=== PATIENT | female | born 1965 | race Caucasian/White ===

== ENCOUNTER 2023-12-10 13:57 | Outpatient (OUT) | payer OTHER, SELFPAY ==
--- NOTE | 2023-12-10 | XR_ITS ---
The [address] [address] Patient Name: AISHWARYA DUNN MRN: [id number] date: 1965 Sex: F Assigned Patient Location: Current Patient Location: Accession/Order Number: [id number] Exam Date: 12/10/2023 14:00 Report Date: 12/10/2023 14:44 At the request of: ANA SCHUSTER Procedure: XR foot SESAR min 3V EXAMINATION: XR foot SESAR min 3V HISTORY: BILATERAL FOOT PAIN COMPARISON: No relevant comparison available. FINDINGS: RIGHT FINDINGS: BONES: No acute fracture or dislocation. Moderate hallux valgus. Moderate osteoarthritis most significant in the midfoot and at the first metatarsal-phalangeal joint. Moderate enthesopathic spurring of the calcaneus at the Achilles and plantar insertions SOFT TISSUES: Negative. No visible soft tissue swelling. OTHER: Negative. LEFT FINDINGS: BONES: No acute fracture or dislocation. Moderate hallux valgus. Moderate osteoarthritis first metatarsal-phalangeal joint. Moderate enthesopathic spurring of the calcaneus at the Achilles and plantar insertions SOFT TISSUES: Negative. No visible soft tissue swelling. OTHER: Negative. XR/XR foot SESAR min 3V IMPRESSION: RIGHT CONCLUSION: Moderate hallux valgus and osteoarthritis LEFT CONCLUSION: Moderate hallux valgus and osteoarthritis Electronically authenticated by: CRYSTAL SAM Date: 12/10/2023 14:44
== END 2023-12-10 13:58 | disposition home or self-care (01) ==
LOC: EC 13:57
PROVIDERS: Visit Provider Podiatrist Foot & Ankle Surgery
DX: M79.672 Pain in left foot (principal); M79.671 Pain in right foot; M20.12 Hallux valgus (acquired), left foot; M20.11 Hallux valgus (acquired), right foot
CPT/HCPCS: 73630

== ENCOUNTER 2024-01-10 09:04 | Outpatient (OUT) | payer OTHER, SELFPAY ==
--- NOTE | 2024-01-10 09:08 | ECG_ITS ---
The [facility] Test Date: 2024-01-10 Pat Name: AISHWARYA DUNN Department: Room: - Gender: Female [employer] Metal: : 1965 Requested By: ANA SCHUSTER Order Number: [id number] Reading MD: GLENDY ROE Measurements Intervals [place] Rate: 59 P: 11 TX: 133 QRS: 13 QRSD: 106 T: -3 QT: 440 QTc: 437 Interpretive Statements SINUS BRADYCARDIA No previous ECG available for comparison Electronically Signed On 01-10-2024 18:31:55 EDT by GLENDY ROE
--- OUTSIDE RECORDS SUMMARY | 2024-01-10 09:28 | XMS_ITS | CCD ---
Author Organization [facility] ion Partnership [facility] Care Team Providers Care Editing Computer Publisher Name Role Phone RINE, JEANINE L Unavailable Unavailable KABOUR, AMEER Unavailable Unavailable AHMAD, SHOWKAT Unavailable Unavailable KAMIREDDY, ADIREDDY Unavailable Unavailable Rine, Jeanine L Primary Care Provider [phone] Joselinee, Jeanine L Primary Care Provider POLO DIAZ Referring Unavailable RINE, JEANINE L Primary Care Unavailable RINE, JEANINE L Referring Unavailable RINE, JEANINE L Primary Care Unavailable RAMEY, TYLER Referring Unavailable RINE, JEANINE L Primary Care Unavailable RINE, JEANINE L Primary Care Unavailable RAMEY, TYLER Referring Unavailable POLO DIAZ Attending Unavailable RINE, JEANINE L Attending Unavailable RINE, JEANINE L Attending Unavailable RINE, JEANINE L Referring Unavailable POLO DIAZ Attending Unavailable Allergies Allergy Classification Reported Allergen(s) Allergy Type Date of Onset Reaction(s) Facility Unclassified (1 source) Iodides Propensity to adverse reactions to drug 07-14-2012 [facility] Work Phone: Unclassified (1 source) Shellfish-Derive d Products Propensity to adverse reactions to drug 07-21-2012 [facility] (2 sources) Seafood Propensity to adverse reactions to drug 07-21-2012 [facility] (2 sources) Iodides Propensity to adverse reactions to drug 07-14-2012 [facility] Work Phone: Medications Current Medications Medication Drug Class(es) Dates Sig (Normalized) Sig (Original) ALPRAZolam 0.25 mg oral tablet (3 sources) Benzodiazepine take 1 tablet by mouth twice daily as needed for sleep ALPRAZolam (XANAX) 0.25 MG tablet Take 0.25 mg by mouth 2 times daily as needed for Sleep. 0 Active b complex vitamins capsule (3 sources) take 1 capsule by mouth once daily b complex vitamins capsule Take 1 capsule by mouth daily. 0 Active Calcium Carbonate / Vitamin D (3 sources) take 1 tablet by mouth once daily Calcium Carbonate-Vitamin D (CALCIUM + D PO) Take 1 tablet by mouth daily 0 Active diphenhydrAMINE hydrochloride 50 mg oral capsule (3 sources) Histamine-1 Receptor Antagonist Start: 07-23-2017 take 1 capsule by mouth every six hours as needed diphenhydrAMINE (BENADRYL) 50 MG capsule Take 1 capsule by mouth every 6 hours as needed for Itching 20 capsule 0 07/23/2017 Active DULoxetine 60 mg delayed release oral capsule (3 sources) Serotonin and Norepinephrine Reuptake Inhibitor take 1 capsule by mouth once daily DULoxetine (CYMBALTA) 60 MG extended release capsule Take 60 mg by mouth daily 0 Active levothyroxine sodium 0.088 mg oral tablet (3 sources) l-Thyroxine take 1 tablet by mouth once daily levothyroxine (SYNTHROID) 88 MCG tablet Take 88 mcg by mouth daily 0 Active lisinopril 20 mg oral tablet (3 sources) Angiotensin Converting Enzyme Inhibitor take 1 tablet by mouth once daily lisinopril (PRINIVIL;ZESTRIL) 20 MG tablet Take 20 mg by mouth daily 0 Active LORazepam 1 mg oral tablet (3 sources) Benzodiazepine take 1 tablet by mouth once daily as needed for anxiety LORazepam (ATIVAN) 1 MG tablet Take 1 mg by mouth nightly as needed for Anxiety. 0 Active metFORMIN hydrochloride 500 mg oral tablet (3 sources) Biguanide take 2 tablets by mouth twice daily at mealtime metFORMIN (GLUCOPHAGE) 500 MG tablet Take 500 mg by mouth 2 times daily (with meals) Take two tablets by mouth two times daily 0 Active therapeutic multivitamin-mineral s (THERAGRAN-M) tablet (3 sources) take 1 tablet by mouth once daily therapeutic multivitamin-minera ls (THERAGRAN-M) tablet Take 1 tablet by mouth daily. 0 Active traZODone hydrochloride 150 mg oral tablet (3 sources) Serotonin Reuptake Inhibitor take 1 tablet by mouth once daily traZODone (DESYREL) 150 MG tablet Take 150 mg by mouth nightly 0 Active Problems Active Problems Problem Classification Problem Date Documented Da te Episodic/Chronic Anxiety disorders (3 sources) Panic attack; Translations: [Panic disorder [episodic paroxysmal anxiety]] Onset: 07-20-2017 07-22-2017 Chronic Asthma (1 source) Mild intermittent asthma; Translations: [Mild intermittent asthma, uncomplicated] Chronic Diabetes mellitus without complication (5 sources) Diabetes mellitus; Translations: [Type 2 diabetes mellitus without complications] Onset: 12-19-2022 07-22-2017 Chronic Essential hypertension (5 sources) Hypertensive disorder; Translations: [Essential (primary) hypertension] Onset: 12-19-2022 07-22-2017 Chronic Mood disorders (3 sources) Severe major depression, single episode, without psychotic features; Translations: [Major depressive disorder, single episode, severe without psychotic features] Onset: 07-20-2017 07-22-2017 Chronic Nutritional deficiencies (2 sources) Vitamin D deficiency, unspecified; Translations: [Vitamin D deficiency, unspecified] Onset: 12-19-2022 Chronic Osteoporosis (2 sources) Senile osteoporosis; Translations: [Age-related osteoporosis without current pathological fracture] Onset: 07-15-2023 07-15-2023 Chronic Thyroid disorders (2 sources) Hypothyroidism, unspecified; Translations: [Hypothyroidism, unspecified] Onset: 12-19-2022 Chronic Past or Other Problems Problem Classification Problem Date Documented Date Episodic/Chronic Diabetes mellitus without complication (2 sources) Other abnormal glucose; Translations: [Other abnormal glucose] Onset: 12-19-2022 Episodic Genitourinary symptoms and ill-defined conditions (2 sources) Dysuria; Translations: [Dysuria] Onset: 12-27-2022 Episodic Malaise and fatigue (2 sources) Other fatigue; Translations: [Other fatigue] Onset: 12-19-2022 Episodic Nonspecific chest pain (5 sources) Chest pain, unspecified; Translations: [Chest pain] Onset: 07-20-2017 Resolved: 07-22-2017 07-22-2017 Episodic Other screening for suspected conditions (not mental disorders or infectious disease) (11 sources) Cardiovascular stress test abnormal; Translations: [Abnormal result of other cardiovascular function study] Onset: 07-21-2017 Resolved: 07-22-2017 07-22-2017 Episodic Results Test Name Value Interpretation Reference Range Facility DEXA BONE DENSITY 2 SITESon 07-17-2023 DEXA BONE DENSITY 2 SITES DEXA BONE DENSITY 2 SITES 07/15/2023 12:21 PM EST Indication: Screening. Comparison: Accurate comparison is not possible due to differences in equipment. [employer]. Lumbar spine and bilateral hips. Lumbar spine bone mineral density 1.484 g/sq cm. T score 2.5. Left femoral neck bone mineral density 1.200 g/sq cm. T score 1.2. Left total hip bone mineral density 1.377 g/sq cm. T score 2.9. Right femoral left bone mineral density 1.225 g/sq cm. T score 1.3. Right total hip bone mineral density 1.419 g/sq cm. T score 3.3. IMPRESSION: Some evidence of elevated bone mineral density Interpreted by: Bernardo Squires MD Signed by: Bernardo Squires MD 07/17/23 Final result Normal [facility] DXA Bone [Mass/Area] Bone de nsityon 07-17-2023 Some evidence of elevated bone mineral density [facility] RIS CONSOLIDATED DEXA BONE DENSITY 2 SITES 07/15/2023 12:21 PM EST Indication: Screening. Comparison: Accurate comparison is not possible due to differences in equipment. [employer]. Lumbar spine and bilateral hips. Lumbar spine bone mineral density 1.484 g/sq cm. T score 2.5. Left femoral neck bone mineral density 1.200 g/sq cm. T score 1.2. Left total hip bone mineral density 1.377 g/sq cm. T score 2.9. Right femoral left bone mineral density 1.225 g/sq cm. T score 1.3. Right total hip bone mineral density 1.419 g/sq cm. T score 3.3. [facility] RIS CONSOLIDATED Bernardo Squires MD - 07/17/2023 DEXA BONE DENSITY 2 SITES 07/15/2023 12:21 PM EST Indication: Screening. Comparison: Accurate comparison is not possible due to differences in equipment. [employer]. Lumbar spine and bilateral hips. Lumbar spine bone mineral density 1.484 g/sq cm. T score 2.5. Left femoral neck bone mineral density 1.200 g/sq cm. T score 1.2. Left total hip bone mineral density 1.377 g/sq cm. T score 2.9. Right femoral left bone mineral density 1.225 g/sq cm. T score 1.3. Right total hip bone mineral density 1.419 g/sq cm. T score 3.3. IMPRESSION: Some evidence of elevated bone mineral density [facility] Apparent DXA Bone [Mass/Area] Bone de nsityOrdered By: Bernardo Squires on 07-17-2023 [facility] Apparent Work Phone: DXA Bone [Mass/Area] Bone de nsityon 07-15-2023 Radiology Study observation (narrative) [facility] [employer] BI MAMMOGRAM SCREENING TOMOS YNTHESIS BILATERALon 05-24-2023 BI MAMMOGRAM SCREENING TOMOSYNTHESIS BILATERAL This is a summary report. The complete report is available in the patient's medical record. If you cannot access the medical record, please contact the sending organization for a detailed fax or copy. EXAMINATION: BI MAMMOGRAM SCREENING TOMOSYNTHESIS BILATERAL CLINICAL HISTORY: screening COMPARISON: May 11, 2022, May 05, 2021. RESULT: Digital mammography and 3D tomosynthesis of bilateral breasts was performed. The breasts are almost entirely fatty. Overall appearance is stable. There is no suspicious mass, asymmetry, architectural distortion, or calcification. IMPRESSION: BIRADS 1 - Negative Follow-up: Routine Screening Mamm . Board Certified Radiologists. Accredited by the ACR and FDA. MAMMOGRAPHY IS VERY IMPORTANT TO YOUR HEALTH. THE [place] GUIDELINES RECOMMEND THAT WOMEN 40 YEARS OF AGE AND OLDER SHOULD HAVE A MAMMOGRAM EVERY YEAR. A REMINDER LETTER WILL BE SENT AT THE APPROPRIATE TIME. THIS FACILITY UTILIZES A REMINDER SYSTEM TO ENSURE ALL PATIENTS RECEIVE REMINDER NOTIFICATIONS AT THE APPROPRIATE TIME BASED ON THE RECOMMENDATIONS OF THIS EXAM. THIS INCLUDES REMINDERS FOR ROUTINE SCREENING MAMMOGRAMS, DIAGNOSTIC MAMMOGRAMS IN WHICH THE PATIENT IS ASKED TO RETURN FOR ADDITIONAL VIEWS, OR OTHER BREAST IMAGING INTERVENTIONS WHEN APPROPRIATE. THE PATIENT WILL BE PLACED IN THE APPROPRIATE REMINDER SYSTEM INCLUDING A REMINDER AT THE APPROPRIATE TIME FOR ANY PENDING ADDITIONAL VIEWS. TRANSCRIBED BY: ELECTRONICALLY SIGNED BY: Dudley Dunne MD Normal Not Available Comment on above: Order Comment: [facility] CBC with Diffon 12-27-2022 Abs. Basophil 0.06 k/uL Normal 0.00-0.20 [facility] Comment on above: Performed By: #### C DP #### [facility] [address] [place], [place] [address] Data Keyer: Gerson Barton MD Abs.Imm.Granulocyte 0.08 k/uL Normal 0.00-0.30 [facility] Comment on above: Performed By: #### C DP #### [address] [place], [facility] Data Keyer: Gerson Barton MD Abs.Neutrophil (Seg) 6.19 k/uL Normal 1.50-8.10 [facility] Comment on above: Performed By: #### C DP #### [address] [place] [address] Data Keyer: Gerson Barton MD Basophils/100 WBC (Bld) 1 % Normal 0-2 [facility] Comment on above: Performed By: #### C DP #### [address] [place] [address] Data Keyer: Gerson Barton MD Eosinophils (Bld) [#/Vol] 0.12 10*3/uL Normal 0.00-0.44 [facility] Comment on above: Performed By: #### C DP #### [address] [place], [facility] Data Keyer: Gerson Barton MD Eosinophils/100 WBC (Bld) 1 % Normal 1-4 [facility] Comment on above: Performed By: #### C DP #### [address] [place], [place] [address] Data Keyer: Gerson Barton MD Erythrocyte distribution width (RBC) [Ratio] 14.0 % Normal 11.8-14.4 [facility] Comment on above: Performed By: #### C DP #### [address] [place] [id number] Data Keyer: Gerson Barton MD Hematocrit (Bld) [Volume fraction] 44.1 % Normal 36.3-47.1 [facility] Comment on above: Performed By: #### C DP #### [facility] [address] [place], [place] [id number] Data Keyer: Gerson Barton MD Hemoglobin (Bld) [Mass/Vol] 14.5 g/dL Normal 11.9-15.1 [facility] Comment on above: Performed By: #### C DP #### [facility] [address] [place], [place] [id number] Data Keyer: Gerson Barton MD Immature granulocytes/100 WBC (Bld) 1 % High 0 [facility] Comment on above: Performed By: #### C DP #### [facility] [address] [place], [facility] Data Keyer: Gerson Barton MD Lymphocytes (Bld) [#/Vol] 3.02 10*3/uL Normal 1.10-3.70 [facility] Comment on above: Performed By: #### C DP #### [facility] [address] [place], [facility] Data Keyer: Gerson Barton MD Lymphocytes/100 WBC (Bld) 29 % Normal 24-43 [facility] Comment on above: Performed By: #### C DP #### [facility] [address] [place], [facility] Data Keyer: Gerson Barton MD MCH (RBC) [Entitic mass] 29.2 pg Normal 25.2-33.5 [facility] Comment on above: Performed By: #### C DP #### [facility] [address] [place] [facility] Data Keyer: Gerson Barton MD MCHC (RBC) [Mass/Vol] 32.9 g/dL Normal 28.4-34.8 [facility] Comment on above: Performed By: #### C DP #### [facility] [address] [place] [facility] Data Keyer: Gerson Barton MD MCV (RBC) [Entitic vol] 88.7 fL Normal 82.6-102.9 [facility] Comment on above: Performed By: #### C DP #### [facility] [address] [place], [place] [id number] Data Keyer: Gerson Barton MD Monocytes (Bld) [#/Vol] 0.98 10*3/uL Normal 0.10-1.20 [facility] Comment on above: Performed By: #### C DP #### [facility] [address] [place] [id number] Data Keyer: Gerson Barton MD Monocytes/100 WBC (Bld) 9 % Normal 3-12 [facility] Comment on above: Performed By: #### C DP #### [facility] [address] [place], [place] [address] Data Keyer: Gerson Barton MD Neutrophil (Seg) 59 % Normal 36-65 [facility] Comment on above: Performed By: #### C DP #### [address] [place], [facility] Data Keyer: Gerson Barton MD NRBC Automated 0.0 per [address] [facility] Comment on above: Performed By: #### C DP #### [address] [place], [facility] Data Keyer: Gerson Barton MD Platelet mean volume (Bld) [Entitic vol] 9.3 fL Normal 8.1-13.5 [facility] Comment on above: Performed By: #### C DP #### [facility] [address] [place], [facility] Data Keyer: Gerson Barton MD Platelets (Bld) [#/Vol] 365 10*3/uL Normal 138-453 [facility] Comment on above: Performed By: #### C DP #### [address] [place], [place] [address]83 Data Keyer: Gerson Barton MD RBC (Bld) [#/Vol] 4.97 10*6/uL Normal 3.95-5.11 [facility] Comment on above: Performed By: #### C DP #### [address] [place] [address] Data Keyer: Gerson Barton MD WBC (Bld) [#/Vol] 10.5 10*3/uL Normal 3.5-11.3 [facility] Comment on above: Performed By: #### C DP #### [address] [place] [address] Data Keyer: Gerson Barton MD Hemoglobin A1Con 12-20-2022 Glucose [Mass/Vol] 126 mg/dL Normal [facility] Comment on above: Result Comment: The ADA and AACC recommend providing the estimated average glucose result to permit better patient understanding of their HBA1c result. Performed By: #### C P, CDP, TSHX #### [address] [place] [address] Data Keyer: Gerson Barton MD #### URNMAB, FT4, GLYHGB, VD25, LIPR #### [address] [id number] Data Keyer: Asad Draper MD HbA1c (Bld) [Mass fraction] 6.0 % Normal 4.0-6.0 [facility] Comment on above: Performed By: #### C P, CDP, TSHX #### [address] [place] [address] Data Keyer: Gerson Barton MD #### URNMAB, FT4, GLYHGB, VD25, LIPR #### [address] [address] Data Keyer: Asad Draper MD Lipid Profileon 12-20-2022 Cholesterol [Mass/Vol] 115 mg/dL Normal <200 [facility] Comment on above: Result Comment: Cholesterol Guidelines: <200 Desirable 200-240 Borderline >240 Undesirable Performed By: #### C P, CDP, TSHX #### [facility] [address] [place] [address] [place] [address] Data Keyer: Gerson Barton MD #### URNMAB, FT4, GLYHGB, VD25, LIPR #### [employer] [address] [place], [place] [id number] Data Keyer: Asad Draper MD Cholesterol in HDL [Mass/Vol] 49 mg/dL Normal >40 [facility] Comment on above: Result Comment: HDL Guidelines: <40 Undesirable 40-59 Borderline >59 Desirable Performed By: #### C P, CDP, TSHX #### [address] [place] [address] Data Keyer: Gerson Barton MD #### URNMAB, FT4, GLYHGB, VD25, LIPR #### [facility] [employer] [facility] [place] [address] Data Keyer: Asad Draper MD Cholesterol in LDL [Mass/Vol] 32 mg/dL Normal 0-130 [facility] Comment on above: Result Comment: LDL Guidelines: <100 Desirable 100-129 Near to/above Desirable 130-159 Borderline >159 Undesirable Direct (measured) LDL and calculated LDL are not interchangeable tests. Performed By: #### C P, CDP, TSHX #### [address] [place] [address] Data Keyer: Gerson Barton MD #### URNMAB, FT4, GLYHGB, VD25, LIPR #### [employer] [address] [place] [address] Data Keyer: Asad Draper MD Cholesterol.total/Ch olesterol in HDL [Mass ratio] 2.3 {ratio} Normal <5 [facility] Comment on above: Performed By: #### C P, CDP, TSHX #### [address] [place] [address] Data Keyer: Gerson Barton MD #### URNMAB, FT4, GLYHGB, VD25, LIPR #### [facility] [employer] [facility] [place], [place] [id number] Data Keyer: Asad Draper MD Triglyceride [Mass/Vol] 171 mg/dL High <150 [facility] Comment on above: Result Comment: Triglyceride Guidelines: <150 Desirable 150-199 Borderline 200-499 High >499 Very high Based on AHA Guidelines for fasting triglyceride, March 2012. Performed By: #### C P, CDP, TSHX #### [address] [place] [id number] Data Keyer: Gerson Barton MD #### URNMAB, FT4, GLYHGB, VD25, LIPR #### [place] [address] [place], [place] 3[address] Data Keyer: Asad Draper MD Microalb.,Random Uron 2022 Microalb/Creat Ratio 178 mcg/mg creat High <25 [facility] Comment on above: Performed By: #### C P, CDP, TSHX #### [address] [place] [id number] Data Keyer: Gerson Barton MD #### URNMAB, FT4, GLYHGB, VD25, LIPR #### [place] [address] [place], [place] [address]843[address] Data Keyer: Asad Draper MD Microalbumin conc. 764 mg/L High <21 [facility] Comment on above: Performed By: #### C P, CDP, TSHX #### [address] [place] [id number] Data Keyer: Gerson Barton MD #### URNMAB, FT4, GLYHGB, VD25, LIPR #### [address] [address] Data Keyer: Asad Draper MD Creatinine [Mass/Vol] 428.7 mg/dL High 28.0-217.0 [facility] Comment on above: Performed By: #### C P, CDP, TSHX #### [address] [place], [place] [address] Data Keyer: Gerson Barton MD #### URNMAB, FT4, GLYHGB, VD25, LIPR #### [address] [address] Data Keyer: Asad Draper MD Thyroxine, Freeon 12-202022 Thyroxine, Free 1.5 ng/dL Normal 0.9-1.7 [facility] Comment on above: Performed By: #### C P, CDP, TSHX #### [address] [place] [address] Data Keyer: Gerson Barton MD #### URNMAB, FT4, GLYHGB, VD25, LIPR #### [place] [address] [place], [place] [id number] Data Keyer: Asad Draper MD Vitamin D 25 OHon 12-20-2022 Vitamin D 25 [place] 59.0 ng/mL Normal >29.9 [facility] Comment on above: Result Comment: Reference Range: Vitamin D status Range Deficiency <20 ng/mL Mild Deficiency 20-30 ng/mL Sufficiency 30-100 ng/mL Toxicity >100 ng/mL Performed By: #### C P, CDP, TSHX #### [address] [place] [address] Data Keyer: Gerson Barton MD #### URNMAB, FT4, GLYHGB, VD25, LIPR #### [facility] [address] [place] [address] Data Keyer: Asad Draper MD CBC with Auto Differentialon 12-19-2022 Basophils (Bld) [#/Vol] 0.05 10*3/uL [facility] Basophils/100 WBC (Bld) 0 % 0 - 2 % [facility] Eosinophils (Bld) [#/Vol] 0.07 10*3/uL [facility] Eosinophils/100 WBC (Bld) 1 % 1 - 4 % [facility] Erythrocyte distribution width (RBC) [Ratio] 13.8 % 11.8 - 14.4 % [facility] Hematocrit (Bld) [Volume fraction] 47.2 % High 36.3 - 47.1 % [facility] Hemoglobin (Bld) [Mass/Vol] 15.9 g/dL High 11.9 - 15.1 g/dL [facility] Immature granulocytes (Bld) [#/Vol] 0.09 10*3/uL [facility] Immature granulocytes/100 WBC (Bld) 1 % High 0 [facility] Interpretation and review of laboratory results Abnormal [facility] Lymphocytes/100 WBC (Bld) 16 % Low 24 - 43 % [facility] Lymphocytes/100 WBC (Bld) 1.85 % [facility] MCH (RBC) [Entitic mass] 28.8 pg 25.2 - 33.5 pg [facility] MCHC (RBC) [Mass/Vol] 33.7 g/dL 28.4 - 34.8 g/dL [facility] MCV (RBC) [Entitic vol] 85.5 fL 82.6 - 102.9 fL [facility] Monocytes/100 WBC (Bld) 8 % 3 - 12 % [facility] Monocytes/100 WBC (Bld) 0.89 % [facility] Neutrophils/100 WBC (Bld) 74 % High 36 - 65 % [facility] Nucleated RBC/100 WBC (Bld) [Ratio] 0.0 % 0.0 per 100 WBC [facility] Platelet mean volume (Bld) [Entitic vol] 9.0 fL 8.1 - 13.5 fL [facility] Platelets (Bld) [#/Vol] 335 10*3/uL [facility] RBC (Bld) [#/Vol] 5.52 10*6/uL High 3.95 - 5.1 1 m/uL [facility] Segmented neutrophils/100 WBC (Bld) 8.61 % High [facility] WBC other (Bld) [#/Vol] 11.6 High [facility] CBC with Diffon 12-19-2022 Abs. Basophil 0.05 k/uL Normal 0.00-0.20 [facility] Comment on above: Performed By: #### C P, CDP, TSHX #### [address] [place] [id number] Data Keyer: Gerson Barton MD #### YESY, FT4, GLYHGB, VD25, LIPR #### [place] [id number] Data Keyer: Asad Draper MD Abs.Imm.Granulocyte 0.09 k/uL Normal 0.00-0.30 [facility] Comment on above: Performed By: #### C P, CDP, TSHX #### [address] [place] [address] Data Keyer: Gerson Barton MD #### YESY, FT4, GLYHGB, VD25, LIPR #### [address] [id number] Data Keyer: Asad Draper MD Abs.Neutrophil (Seg) 8.61 k/uL High 1.50-8.10 [facility] Comment on above: Performed By: #### C P, CDP, TSHX #### [facility] [address] [place] [address] [place] [address] Data Keyer: Gerson Barton MD #### URNMAB, FT4, GLYHGB, VD25, LIPR #### [address] [id number] Data Keyer: Asad Draper MD Basophils/100 WBC (Bld) 0 % Normal 0-2 [facility] Comment on above: Performed By: #### C P, CDP, TSHX #### [address] [place] [id number] Data Keyer: Gerson Barton MD #### URNMAB, FT4, GLYHGB, VD25, LIPR #### [place] [id number] Data Keyer: Asad Draper MD Eosinophils (Bld) [#/Vol] 0.07 10*3/uL Normal 0.00-0.44 [facility] Comment on above: Performed By: #### C P, CDP, TSHX #### [address] [place] [id number] Data Keyer: Gerson Barton MD #### URNMAB, FT4, GLYHGB, VD25, LIPR #### [place] [address] Data Keyer: Asad Draper MD Eosinophils/100 WBC (Bld) 1 % Normal 1-4 [facility] Comment on above: Performed By: #### C P, CDP, TSHX #### [address] [place] [id number] Data Keyer: Gerson Barton MD #### URNMAB, FT4, GLYHGB, VD25, LIPR #### [place] [id number] Data Keyer: Asad Draper MD Erythrocyte distribution width (RBC) [Ratio] 13.8 % Normal 11.8-14.4 [facility] Comment on above: Performed By: #### C P, CDP, TSHX #### [address] [place], [place] [id number] Data Keyer: Gerson Barton MD #### URNMAB, FT4, GLYHGB, VD25, LIPR #### [address] [id number] Data Keyer: Asad Draper MD Hematocrit (Bld) [Volume fraction] 47.2 % High 36.3-47.1 [facility] Comment on above: Performed By: #### C P, CDP, TSHX #### [address] [place] [address] Data Keyer: Gerson Barton MD #### URNMAB, FT4, GLYHGB, VD25, LIPR #### [address] [id number] Data Keyer: Asad Draper MD Hemoglobin (Bld) [Mass/Vol] 15.9 g/dL High 11.9-15.1 [facility] Comment on above: Performed By: #### C P, CDP, TSHX #### [address] [place], [place] [id number] Data Keyer: Gerson Barton MD #### URNMAB, FT4, GLYHGB, VD25, LIPR #### [address] [address] Data Keyer: Asad Draper MD Immature granulocytes/100 WBC (Bld) 1 % High 0 [facility] Comment on above: Performed By: #### C P, CDP, TSHX #### [address] [place] [address] Data Keyer: Gerson Barton MD #### URNMAB, FT4, GLYHGB, VD25, LIPR #### [address] [id number] Data Keyer: Asad Draper MD Lymphocytes (Bld) [#/Vol] 1.85 10*3/uL Normal 1.10-3.70 [facility] Comment on above: Performed By: #### C P, CDP, TSHX #### [facility] [address] [place] [address] Data Keyer: Gerson Barton MD #### URNMAB, FT4, GLYHGB, VD25, LIPR #### [address] [id number] Data Keyer: Asad Draper MD Lymphocytes/100 WBC (Bld) 16 % Low 24-43 [facility] Comment on above: Performed By: #### C P, CDP, TSHX #### [address] [place] [address] Data Keyer: Gerson Barton MD #### URNMAB, FT4, GLYHGB, VD25, LIPR #### [address] [address] Data Keyer: Asad Draper MD MCH (RBC) [Entitic mass] 28.8 pg Normal 25.2-33.5 [facility] Comment on above: Performed By: #### C P, CDP, TSHX #### [facility] [address] [place] [address] [place] [place] [id number] Data Keyer: Gerson Barton MD #### URNMAB, FT4, GLYHGB, VD25, LIPR #### [address] [id number] Data Keyer: Asad Draper MD MCHC (RBC) [Mass/Vol] 33.7 g/dL Normal 28.4-34.8 [facility] Comment on above: Performed By: #### C P, CDP, TSHX #### [facility] [address] [place] [address] [place] [address] Data Keyer: Gerson Barton MD #### URNMAB, FT4, GLYHGB, VD25, LIPR #### [address] [place] [address] Data Keyer: Asad Draper MD MCV (RBC) [Entitic vol] 85.5 fL Normal 82.6-102.9 [facility] Comment on above: Performed By: #### C P, CDP, TSHX #### [address] [place], [place] 1390283 Data Keyer: Gerson Barton MD #### URNMAB, FT4, GLYHGB, VD25, LIPR #### [address] [address] Data Keyer: Aasd Draper MD Monocytes (Bld) [#/Vol] 0.89 10*3/uL Normal 0.10-1.20 [facility] Comment on above: Performed By: #### C P, CDP, TSHX #### [address] [place], [place] 2123383 Data Keyer: Gerson Barton MD #### URNMAB, FT4, GLYHGB, VD25, LIPR #### [address] [id number] Data Keyer: Asad Draper MD Monocytes/100 WBC (Bld) 8 % Normal 3-12 [facility] Comment on above: Performed By: #### C P, CDP, TSHX #### [address] [place], [place] 1353583 Data Keyer: Gerson Barton MD #### URNMAB, FT4, GLYHGB, VD25, LIPR #### [address] [id number] Data Keyer: Asad Draper MD Neutrophil (Seg) 74 % High 36-65 [facility] Comment on above: Performed By: #### C P, CDP, TSHX #### [address] [place] [id number] Data Keyer: Gerson Barton MD #### URNMAB, FT4, GLYHGB, VD25, LIPR #### [address] [id number] Data Keyer: Asad Draper MD NRBC Automated 0.0 per [address] [facility] Comment on above: Performed By: #### C P, CDP, TSHX #### [address] [place] [id number] Data Keyer: Gerson Barton MD #### URNMAB, FT4, GLYHGB, VD25, LIPR #### [place] [id number] Data Keyer: Asad Draper MD Platelet mean volume (Bld) [Entitic vol] 9.0 fL Normal 8.1-13.5 [facility] Comment on above: Performed By: #### C P, CDP, TSHX #### [address] [place] 7972683 Data Keyer: Gerson Barton MD #### URNMAB, FT4, GLYHGB, VD25, LIPR #### [address] [id number] Data Keyer: Asad Draper MD Platelets (Bld) [#/Vol] 335 10*3/uL Normal 138-453 [facility] Comment on above: Performed By: #### C P, CDP, TSHX #### [address] [place] [id number] Data Keyer: Gerson Barton MD #### URNMAB, FT4, GLYHGB, VD25, LIPR #### [address] [address] Data Keyer: Asad Draper MD RBC (Bld) [#/Vol] 5.52 10*6/uL High 3.95-5.11 [facility] Comment on above: Performed By: #### C P, CDP, TSHX #### [address] [place], [place] 5642383 Data Keyer: Gerson Barton MD #### URNMAB, FT4, GLYHGB, VD25, LIPR #### [facility] [employer] [facility] [place] [address] Data Keyer: Asad Draper MD WBC (Bld) [#/Vol] 11.6 10*3/uL High 3.5-11.3 [facility] Comment on above: Performed By: #### C P, CDP, TSHX #### [address] [place], [place] 9813283 Data Keyer: Gerson Barton MD #### URNMAB, FT4, GLYHGB, VD25, LIPR #### [address] [address] Data Keyer: Asad Draper MD Comp Metabolic Profon 2022 Albumin [Mass/Vol] 5.1 g/dL Normal 3.5-5.2 [facility] Comment on above: Performed By: #### C P, CDP, TSHX #### [address] [place], [place] 4028383 Data Keyer: Gerson Barton MD #### URNMAB, FT4, GLYHGB, VD25, LIPR #### [place] [address] [place] [address] Data Keyer: Asad Draper MD Albumin/Glob Ratio 1.6 Normal 1.0-2.5 [facility] Comment on above: Performed By: #### C P, CDP, TSHX #### [facility] [address] [place], [place] 0481083 Data Keyer: Gerson Barton MD #### URNMAB, FT4, GLYHGB, VD25, LIPR #### [address] [id number] Data Keyer: Asad Draper MD Alkaline Phos 74 U/L Normal 35-104 [facility] Comment on above: Performed By: #### C P, CDP, TSHX #### [facility] [address] [place], [place] 0467283 Data Keyer: Gerson Barton MD #### URNMAB, FT4, GLYHGB, VD25, LIPR #### [address] [id number] Data Keyer: Asad Draper MD ALT [Catalytic activity/Vol] 44 U/L High 5-33 [facility] Comment on above: Performed By: #### C P, CDP, TSHX #### [address] [place], [place] 6316483 Data Keyer: Gerson Barton MD #### URNMAB, FT4, GLYHGB, VD25, LIPR #### [address] [id number] Data Keyer: Asad Draper MD Anion gap [Moles/Vol] 14 mmol/L Normal 9-17 [facility] Comment on above: Performed By: #### C P, CDP, TSHX #### [facility] [address] [place], [place] 0697183 Data Keyer: Gerson Barton MD #### URNMAB, FT4, GLYHGB, VD25, LIPR #### [address] [place], [place] 1108808 Data Keyer: Asad Draper MD AST [Catalytic activity/Vol] 27 U/L Normal <32 [facility] Comment on above: Performed By: #### C P, CDP, TSHX #### [address] [place], [place] 8351783 Data Keyer: Gerson Barton MD #### URNMAB, FT4, GLYHGB, VD25, LIPR #### [address] [id number] Data Keyer: Asad Draper MD Bilirubin [Mass/Vol] 1.7 mg/dL High 0.3-1.2 [facility] Comment on above: Performed By: #### C P, CDP, TSHX #### [address] [place] [address] Data Keyer: Gerson Barton MD #### URNMAB, FT4, GLYHGB, VD25, LIPR #### [address] [id number] Data Keyer: Asad Draper MD BUN/CRE Ratio 20 Normal 9-20 [facility] Comment on above: Performed By: #### C P, CDP, TSHX #### [address] [place] [address] Data Keyer: Gerson Barton MD #### URNMAB, FT4, GLYHGB, VD25, LIPR #### [address] [id number] Data Keyer: Asad Draper MD Calcium [Mass/Vol] 10.5 mg/dL High 8.6-10.4 [facility] Comment on above: Performed By: #### C P, CDP, TSHX #### [address] [place] [address] Data Keyer: Gerson Barton MD #### URNMAB, FT4, GLYHGB, VD25, LIPR #### [address] [id number] Data Keyer: Asad Draper MD Chloride [Moles/Vol] 94 mmol/L Low 98-107 [facility] Comment on above: Performed By: #### C P, CDP, TSHX #### [facility] [address] [place] [address] [place]. [place], [place] [id number] Data Keyer: Gerson Barton MD #### URNMAB, FT4, GLYHGB, VD25, LIPR #### [address] [place] [address] Data Keyer: Asad Draper MD CO2 [Moles/Vol] 30 mmol/L Normal 20-31 [facility] Comment on above: Performed By: #### C P, CDP, TSHX #### [facility] [address] [place] [address] [place] [address] Data Keyer: Gerson Barton MD #### URNMAB, FT4, GLYHGB, VD25, LIPR #### [address] [address] Data Keyer: Asad Draper MD Creatinine [Mass/Vol] 0.8 mg/dL Normal 0.5-0.9 [facility] Comment on above: Performed By: #### C P, CDP, TSHX #### [facility] [address] [place] [address] Dr. [place], [place] 0042183 Data Keyer: Gerson Barton MD #### URNMAB, FT4, GLYHGB, VD25, LIPR #### [address] [id number] Data Keyer: Asad Draper MD GFR/1.73 sq M.predicted among non-blacks MDRD (S/P/Bld) [Vol rate/Area] mL/min/{1.73_m2} Normal >60 [facility] Comment on above: Result Comment: These results are not intended for use in patients <18 years of age. eGFR results are calculated without a race factor using the 2020 CKD-EPI equation. Careful clinical correlation is recommended, particularly when comparing to results calculated using previous equations. The CKD-EPI equation is less accurate in patients with extremes of muscle mass, extra-renal metabolism of creatine, excessive creatine ingestion, or following therapy that affects renal tubular secretion. Performed By: #### C P, CDP, TSHX #### [address] [place] 7972683 Data Keyer: Gerson Barton MD #### URNMAB, FT4, GLYHGB, VD25, LIPR #### [address] [id number] Data Keyer: Asad Draper MD Glucose [Mass/Vol] 137 mg/dL High 70-99 [facility] Comment on above: Performed By: #### C P, CDP, TSHX #### [address] [place] 7972683 Data Keyer: Gerson Barton MD #### URNMAB, FT4, GLYHGB, VD25, LIPR #### [address] [id number] Data Keyer: Asad Draper MD Potassium [Moles/Vol] 4.3 mmol/L Normal 3.7-5.3 [facility] Comment on above: Performed By: #### C P, CDP, TSHX #### [address] [place] [address] Data Keyer: Gerson Barton MD #### URNMAB, FT4, GLYHGB, VD25, LIPR #### [address] [id number] Data Keyer: Asad Draper MD Protein [Mass/Vol] 8.2 g/dL Normal 6.4-8.3 [facility] Comment on above: Performed By: #### C P, CDP, TSHX #### [address] [place] [address] Data Keyer: Gerson Barton MD #### URNMAB, FT4, GLYHGB, VD25, LIPR #### [address] [place], [place] 7883508 Data Keyer: Asad Draper MD Sodium [Moles/Vol] 138 mmol/L Normal 135-144 [facility] Comment on above: Performed By: #### C P, CDP, TSHX #### [address] [place] [address] Data Keyer: Gerson Barton MD #### URNMAB, FT4, GLYHGB, VD25, LIPR #### [address] [place], [place] 1825908 Data Keyer: Asad Draper MD Urea nitrogen [Mass/Vol] 16 mg/dL Normal 6-20 [facility] Comment on above: Performed By: #### C P, CDP, TSHX #### [address] [place] [address] Data Keyer: Gerson Barton MD #### URNMAB, FT4, GLYHGB, VD25, LIPR #### [address] [place], [place] 9463408 Data Keyer: Asad Draper MD [facility] Metabolic Pane [facility] 12-19-2022 Albumin [Mass/Vol] 5.1 g/dL 3.5 - 5.2 g/dL [facility] Albumin/Globulin [Mass ratio] 1.6 {ratio} 1.0 - 2.5 [facility] ALP [Catalytic activity/Vol] 74 U/L 35 - 104 U/L [facility] ALT [Catalytic activity/Vol] 44 U/L High 5 - 33 U/L [facility] Anion gap [Moles/Vol] 14 mmol/L 9 - 17 mmol/L [facility] AST [Catalytic activity/Vol] 27 U/L NINF - 32 U/L [facility] Bilirubin [Mass/Vol] 1.7 mg/dL High 0.3 - 1 .2 mg/dL [facility] Calcium [Mass/Vol] 10.5 mg/dL High 8.6 - 10. 4 mg/dL [facility] Chloride [Moles/Vol] 94 mmol/L Low 98 - 10 7 mmol/L [facility] CO2 [Moles/Vol] 30 mmol/L 20 - 31 mmol/L [facility] Creatinine [Mass/Vol] 0.8 mg/dL 0.5 - 0.9 mg/dL [facility] GFR/1.73 sq M.predicted MDRD (S/P/Bld) [Vol rate/Area] - PINF [facility] Comment on above: These results are not intended for use in patients <18 years of age. eGFR results are calculated without a race factor using the 2020 CKD-EPI equation. Careful clinical correlation is recommended, particularly when comparing to results calculated using previous equations. The CKD-EPI equation is less accurate in patients with extremes of muscle mass, extra-renal metabolism of creatine, excessive creatine ingestion, or following therapy that affects renal tubular secretion. Glucose [Mass/Vol] 137 mg/dL High 70 - 99 mg/dL [facility] Interpretation and review of laboratory results Abnormal [facility] Potassium [Moles/Vol] 4.3 mmol/L 3.7 - 5.3 mmol/L [facility] Protein [Mass/Vol] 8.2 g/dL 6.4 - 8.3 g/dL [facility] Sodium [Moles/Vol] 138 mmol/L 135 - 144 mmol/L [facility] Urea nitrogen [Mass/Vol] 16 mg/dL 6 - 20 mg/dL [facility] Urea nitrogen/Creatinine [Mass ratio] 20 mg/mg 9 - 20 [facility] Lipid Panelon 12-19-2022 Cholesterol [Mass/Vol] 115 mg/dL NINF - 200 mg/dL [facility] Comment on above: Cholesterol Guidelines: <200 Desirable 200-240 Borderline >240 Undesirable Cholesterol in HDL [Mass/Vol] 49 mg/dL 40 - PINF mg/dL [facility] Comment on above: HDL Guidelines: <40 Undesirable 40-59 Borderline >59 Desirable Cholesterol in LDL [Mass/Vol] 32 mg/dL 0 - 130 mg/dL [facility] Comment on above: LDL Guidelines: <100 Desirable 100-129 Near to/above Desirable 130-159 Borderline >159 Undesirable Direct (measured) LDL and calculated LDL are not interchangeable tests. Cholesterol.total/Ch olesterol in HDL [Mass ratio] 2.3 {ratio} NINF - 5 [facility] Interpretation and review of laboratory results Abnormal [facility] Triglyceride [Mass/Vol] 171 mg/dL [facility] Comment on above: Triglyceride Guidelines: <150 Desirable 150-199 Borderline 200-499 High >499 Very high Based on AHA Guidelines for fasting triglyceride, March 2012. [facility] Microalbumin, Uron 3 Albumin DL <= 20 mg/L (U) [Mass/Vol] 764 mg/L [facility] mg/L [facility] Albumin/Creatinine DL <= 20 mg/L (U) [Ratio] 178 [facility] Creatinine (U) [Mass/Vol] 428.7 mg/dL High 28.0 - 217.0 mg/dL [facility] Interpretation and review of laboratory results Abnormal [facility] T4, Freeon 12-19-2022 Free T4 [Mass/Vol] 1.5 ng/dL 0.9 - 1.7 ng/dL [facility] TSH w/reflex to FT4on 2022 Thyroid Stim. Horm. 6.76 uIU/mL High 0.30-5.00 [facility] Comment on above: Performed By: #### C P, CDP, TSHX #### [facility] [address] [place] [address] Data Keyer: Gerson Barton MD #### URNMAB, FT4, GLYHGB, VD25, LIPR #### [address] [place] [address] Data Keyer: Asad Draper MD TSH with Reflexon 12-19-2022 Interpretation and review of laboratory results Abnormal [facility] TSH Qn 6.76 m[IU]/L High [facility] [employer] Vitamin D 25 Hydroxyon 12-19 25-hydroxyvitamin D3 [Mass/Vol] 59.0 ng/mL 29.9 - PINF ng/mL [facility] [employer] Comment on above: Reference Range: Vitamin D status Range Deficiency <20 ng/mL Mild Deficiency 20-30 ng/mL Sufficiency 30-100 ng/mL Toxicity >100 ng/mL [facility] [employer] XR CHEST (2 VW)Ordered By: Ventura Whitlock on 12-08-2020 No acute cardiopulmonary disease. [employer] Phone: EXAMINATION: TWO XRA Y VIEWS OF THE CHEST 12/06/2020 7:41 pm COMPARISON: July 19, 2017. HISTORY: ORDERING SYSTEM PROVIDED HISTORY: Mild intermittent asthma without complication TECHNOLOGIST PROVIDED HISTORY: ASTHMA FINDINGS: No lines or tubes. Normal cardiomediastinal silhouette. The lungs are clear without focal consolidation or pleural effusion. No suspicious pulmonary nodules. No pulmonary edema. No pneumothorax. No acute osseous abnormality. [employer] Phone: Kalpesh, [facility] Incoming Radiant Results From [employer] - 12/08/2020 8:26 PM EDT EXAMINATION: TWO XRAY VIEWS OF THE CHEST 12/06/2020 7:41 pm COMPARISON: July 19, 2017. HISTORY: ORDERING SYSTEM PROVIDED HISTORY: Mild intermittent asthma without complication TECHNOLOGIST PROVIDED HISTORY: ASTHMA FINDINGS: No lines or tubes. Normal cardiomediastinal silhouette. The lungs are clear without focal consolidation or pleural effusion. No suspicious pulmonary nodules. No pulmonary edema. No pneumothorax. No acute osseous abnormality. IMPRESSION: No acute cardiopulmonary disease. Interse Phone: [employer] Phone: Discharge Summaryon 07-22-19 18 HIM IP Note OR Hydrography Teacher Normal [facility] CBCon 07-21-2017 Erythrocyte distribution width Auto Ratio (RBC) 12.9 % Normal 11.8-14.4 [facility] Comment on above: Performed By: #### T VU LIPR ####[address] [address] Erythrocytes (RBC) 0.0 per 100 WBC Normal 0.[address] [facility] Comment on above: Result Comment: [address] [address] Performed By: #### T VU LIPR ####[address] [address] Erythrocytes (RBC) 4.33 10*6/uL Normal 3.95-5.11 [facility] Comment on above: Performed By: #### David WOMACK LIPR ####[address] [address] Hematocrit (HCT) 38.1 % Normal 36.3-47.1 [facility] Comment on above: Performed By: #### T VU LIPR ####[address] [address] Hemoglobin mass conc (Bld) 12.4 g/dL Normal 11.9-15.1 [facility] Comment on above: Performed By: #### T VU LIPR ####[address] [address] MCH 28.6 pg Normal 25.2-33.5 [facility] Comment on above: Performed By: #### T VU LIPR ####[address] [address] MCHC mass conc (RBC) 32.5 g/dL Normal 28.4-34.8 [facility] Comment on above: Performed By: #### T VU LIPR ####[facility] [address] [place] [address] MCV 88.0 fL Normal 82.6-102.9 [facility] Comment on above: Performed By: ###BECCA DICKSON ####Evelia [address] [place] [address] Platelet mean volume (PMV) 9.7 fL Normal 8.1-13.5 [facility] Comment on above: Performed By: #### BECCA MYLES ####[facility] [address] [address] Platelets 198 10*3/uL Normal 138-453 [facility] Comment on above: Performed By: ###BECCA DICKSON ####[address] [address] WBC (Leukocytes) 4.5 10*3/uL Normal 3.5-11.3 [facility] Comment on above: Performed By: ###BECCA DICKSON ####[facility] [address] [address] Comp Metabolic Pr/rfx MGon 0 - Potassium molar conc 3.5 mmol/L Low 3.7-5.3 [facility] Comment on above: Performed By: ###BECCA DICKSON ####[address] [address] (cont.) Normal [facility] Comment on above: Result Comment: Aver age GFR for 40-49 years old: 99 mL/min/1.73sq mChronic Kidney Disease: <60 mL/min/1.73sq mKidney failure: <15 mL/min/1.73sq meGFR calculated using average adult body mass. Additional eGFR calculator available at:http://[email or web address] [email or web address] [address] Performed By: #### T VU LIPR ####[facility] [address] [place] [address] Alanine aminotransferase (ALT) 15 U/L Normal 5-33 [facility] Comment on above: Performed By: #### T VU LIPR ####[facility] [address] [place] [address] Albumin 3.9 g/dL Normal 3.5-5.2 [facility] Comment on above: Performed By: #### T VU LIPR ####[facility] [address]bzrakg[address] [place] [address] Albumin/Globulin Ratio 2.1 {ratio} Normal 1.0-2.5 [facility] Comment on above: Performed By: #### David WOMACK LIPR ####[facility] [address] [place] [address] Alkaline Phos 34 U/L Low 35-104 [facility] Comment on above: Performed By: #### David WOMACK LIPR ####[facility] [address] [place] [address] Anion gap 12 mmol/L Normal 9-17 [facility] Comment on above: Performed By: #### T VU LIPR ####[facility] [address] [place] [address] Aspartate aminotransferase (AST) 14 U/L Normal <32 [facility] Comment on above: Performed By: #### T VU LIPR ####[facility] [address] [place] [address] Bilirubin Ql (U) 1.02 mg/dL Normal 0.3-1.2 [facility] Comment on above: Performed By: #### T VU LIPR ####[facility] [address]vytrwpp0573 [place] [address] Calcium 9.0 mg/dL Normal 8.6-10.4 [facility] Comment on above: Performed By: #### BECCA MYLES ####[facility] [address] [place] [address] Chloride 99 mmol/L Normal 98-107 [facility] Comment on above: Performed By: #### BECCA MYLES ####[facility] [address] [place] [address] CO2 24 mmol/L Normal 20-31 [facility] Comment on above: Performed By: #### BECCA MYLES ####[facility] [address] [place] [address] Creatinine 0.60 mg/dL Normal 0.50-0.90 [facility] Comment on above: Performed By: #### VIRGEN MYLESR ####[facility] [address] [place] [address] eGFR (non-black) mL/min/{1.73_m2} Normal >60 [facility] Comment on above: Performed By: #### BECCA MYLES ####[facility] [address] [place] [address] Glucose mass conc 99 mg/dL Normal 70-99 [facility] Comment on above: Performed By: #### VIRGEN MYLESR ####[facility] [address] [place] [address] Protein 5.8 g/dL Low 6.4-8.3 [facility] Comment on above: Performed By: #### BECCA MYLES ####[facility] [address] [place] [address] Sodium 135 mmol/L Normal 135-144 [facility] Comment on above: Performed By: #### BECCA MYLES ####[place] [address] [place] [address] Urea nitrogen 21 mg/dL High 6-20 [facility] Comment on above: Performed By: #### BECCA MYLES ####[address] [place] [address] BUN/CRE Ratio NOT REPORTED Normal 9-20 [facility] Comment on above: Performed By: #### BECCA MYLES ####[address] [place] [address] Staging: NOT REPORTED Normal [facility] Comment on above: Performed By: #### BECCA MYLES ####[facility] [address] [place] [address] Magnesiumon 07-21-2017 Magnesium 1.9 mg/dL Normal 1.6-2.6 [facility] Comment on above: Result Comment: [facility] [address] [place] [address] Performed By: #### BECCA MYLES ####[facility] [address] [place] [address] Plan of Careon 07-21-2017 HIM IP Note OR Hydrography Teacher Normal [facility] HIM IP Note OR Hydrography Teacher Normal [facility] HIM IP Note OR Hydrography Teacher Normal [facility] Progress Noteon 07-21-2017 HIM IP Note OR Hydrography Teacher Normal [facility] HIM IP Note OR Hydrography Teacher Normal [facility] CARDIAC STRESS TESTon 2017 CARDIAC STRESS TEST [address] [id number] CARDIAC STRESS TESTPATIENT NAME: AISHWARYA DUNN : 1965MED REC NO: [id number] ROOM: [address] [place] [address] NO: [id number] ADMIT DATE: 07/20/2017PROVIDER: Ang CraigARDIYASSINE TREADMILL STRESS STUDYDATE OF STUDY: 07/20/2017ORDERING PROVIDER: Mari [facility]NOR[facility] C[facility] PROVIDER: Jori RineINDICATION: Chest discomfort.CONSENT: The test was explained and consent was signed.PROTOCOL: Nitish, 10.70 METS, duration of 10:00 minutes.RESTING EKG: Abnormal.RESTING HR: 54 bpm, maximum HR, 155 bpm which is 90% of the age predictedHR. HR response to exercise was normal.RESTING BP: 119/96 mmHg, peak BP, 158/81 mmHg. BP response to exercisewas appropriate.CHEST PAIN: No chest discomfort with exercise nor in recovery.EXERCISE EKG: Abnormal.ISCHEMIC EKG CHANGES: Definitely.IMPRESSION:E lectrocardiographically Positive Cardiolite treadmill stress study.Cardiolite report issued from the department of Nuclear MedicineANG SHELLMID: 07/20/2017 15:47:34 /PGAYTANJob#: [id number] Doc#: UnknownPositive result faxed to the Unit Normal [facility] Consulton 07-20-2017 HIM IP Note OR Hydrography Teacher Normal [facility] History and Physicalon 07-20 HIM IP Note OR Hydrography Teacher Normal [facility] K (Potassium)on 07-20-2017 Potassium molar conc 3.9 mmol/L Normal 3.7-5.3 [facility] Comment on above: Result Comment: [facility] [employer] [facility] [place], [place] [id number] [phone] Performed By: #### BECCA MYLES ####[facility] CampusdscoutCnssssiayxfe[address] [place] [address] Lipid Profileon 07-20-2017 Cholesterol 162 mg/dL Normal <200 [facility] Comment on above: Result Comment: Chol esterol Guidelines: <200 Desirable 200-240 Borderline >240 Undesirable Performed By: #### BECCA MYLES ####[facility] CampusdscoutBhsqwraiakkp[address] [place] [address] Cholesterol to HDL Ratio 3.4 {ratio} Normal <5 [facility] Comment on above: Performed By: #### BECCA MYLES ####[facility] [address] [place] [address] HDL Cholesterol 48 mg/dL Normal >40 [facility] Comment on above: Result Comment: HDL Guidelines: <40 Undesirable 40-59 Borderline >59 Desirable Performed By: #### T BECCA WOMACK ####[address] [address] LDL Cholesterol 84 mg/dL Normal 0-130 [facility] Comment on above: Result Comment: LDL Guidelines: <100 Desirable 100-129 Near to/above Desirable 130-159 Borderline >159 UndesirableDirect (measured) LDL and calculated LDL are not interchangeable tests. Performed By: #### T BECCA WOMACK ####[facility] [address] [place] [address] Triglyceride 151 mg/dL High <150 [facility] Comment on above: Result Comment: Trig lyceride Guidelines: <150 Desirable 150- 199 Borderline 200-499 High >499 Very high Based on AHA Guidelines for fasting triglyceride, March 2012.[employer] [address] [place] [address] Performed By: #### T BECCA WOMACK ####[facility] [address] [place] [address] Cholesterol in VLDL mass conc NOT REPORTED Normal 1-30 [facility] Comment on above: Performed By: #### T BECCA WOMACK ####[facility] [address] [place] [address] Magnesiumon 07-20-2017 Magnesium 1.8 mg/dL Normal 1.6-2.6 [facility] Comment on above: Result Comment: [employer] [address] [place] [address] Performed By: #### T BECCA WOMACK ####[facility] CampusdscoutSjwvyyfrrmks[address] [place] [address] NM MYOCARDIAL SPECT REST EXE RCISE OR RXon 07-20-2017 NM MYOCARDIAL SPECT REST EXERCISE OR RX EXAMINATION:MYOCARDIAL PERFUSION IMAGING07/20/2017TECHNIQ UE:Rest dose: 15.9 mCi Tc-99m sestamibi intravenouslyStress dose: 42.8 mCi Tc-99m sestamibi intravenouslyUnder cardiology supervision, treadmill exercise testing was performed. Peakheart rate of 155 bpm is 90% of the age predicted maximum heart rate.SPECT imaging was acquired following injection of the sestamibi. ECG gatingwas obtained following the stress acquisition.COMPARISON: None Available.HISTORY:ORDER ING SYSTEM PROVIDED HISTORY: Chest PainTECHNOLOGIST PROVIDED HISTORY:Ordering Physician Provided Reason for Exam: chest pain, sweating, HTN, DM,prior cath 2006, some shortness of breathAdditional signs and symptoms: 3 week history of intermittent chesttightness, today got worse now radiating down into her right arm with somenumbness,51-year-ol d female with chest pain, jaw, back, or arm pain, palpitations,numbness, sweating, underlying diabetes and hypertension with a familyhistory of heart disease and sudden deathFINDINGS:The patient achieved a maximum heart rate of 155 beats per minute, 90 % ofthe maximum age predicted heart rate of 171 beats per minute.Perfusion:There is no scintigraphic evidence for a reversible or fixed perfusion defectto suggest reversible ischemia or infarct.Function:The gated SPECT data demonstrates left ventricular size and normal wallmotion.Left ventricular ejection fraction: 64%TID score: 0.89 (Threshold value of 1.39 is used for Lexiscan stress withTc-99m). There is no stress-induced cavitary dilatation to suggestcompensated triple vessel disease.End diastolic volume: 89mLScores are visually adjusted to account for potential artifact.Summed stress score: 0Summed rest score: 0Summed reversibility score: 0IMPRESSION: 1. No definitive scintigraphic evidence for reversible ischemia or infarct.2. Left ventricular ejection fraction of 64%.3. Please see report for EKG portion of the examination which will beperformed separately by physician from cardiology.Risk stratification: Low riskNote: Risk stratification incorporates both clinical history and testresults. Final risk determination is the responsibility of the orderingprovider as history and other test results may increase or decrease the riskstratification reported for this examination.Risk stratification criteria are adapted from Noninvasive RiskStratification criteria from Vergara et. Al,ACC/AATS/AHA/ASE/ASN C/SCAI/SCCT/STS 2017 Appropriate Use Criteria ForCoronary Revascularization in Patients With Stable Ischemic Heart DiseaseALLINA HEALTH FARIBAULT MEDICAL CENTER Volume 69, Issue October 2016High risk (>3% annual or CA)1. Severe resting LV dysfunction (LVEF >35%) not readily explained by noncoronary causes2. Resting perfusion abnormalities greater than 10% of the myocardium inpatients without prior history or evidence of MI3. Stress-induced perfusion abnormalities encumbering greater than or equalto 10% myocardium or stress segmental scores indicating multiple vascularterritories with abnormalities4. Stress-induced LV dilatation (TID ratio greater than 1.19 for exercise andgreater than 1.39 for regadenoson)Intermediat e risk (1% to 3% annual or CA)1. Mild/moderate resting LV dysfunction (LVEF 35% to 49%) not readilyexplained by non coronary causes.2. Resting perfusion abnormalities in 5%-9.9% of the myocardium in patientswithout a history or prior evidence of MI3. Stress-induced perfusion abnormality encumbering 5%-9.9% of the myocardiumor stress segmental scores indicating 1 vascular territory with abnormalitiesbut without LV dilation4. Small wall motion abnormality involving 1-2 segments and only 1 coronarybed.Low Risk (Less than 1% annual or CA)1. Normal or small myocardial perfusion defect at rest or with stressencumbering less than 5% of the myocardium.Interpreted by:JENNI Montañoigned by:Giovanny Lan MD07/20/17inal result Normal [facility] Plan of Careon 07-20-2017 HIM IP Note OR Hydrography Teacher Normal [facility] HIM IP Note OR Hydrography Teacher Normal [facility] Procedureon 07-20-2017 HIM IP Note OR Hydrography Teacher Normal [facility] Progress Noteon 07-20-2017 HIM IP Note OR Hydrography Teacher Normal [facility] HIM IP Note OR Hydrography Teacher Normal [facility] TSH w/reflex to FT4on 2017 Thyroid stimulating hormone (TSH) 0.22 m[IU]/L Low 0.30-5.00 [facility] Comment on above: Result Comment: [facility] [employer] [address] [place] [address] Performed By: #### T SHX, FT4 ####[address] [address] Thyroxine, Freeon 07-20-2017 Thyroxine, Free 1.52 ng/dL Normal 0.93-1.70 [facility] Comment on above: Result Comment: [facility] [employer] [address] [place] [address] Performed By: #### T SHX, FT4 ####[address] [address] Troponinon 07-20-2017 Troponin I.cardiac mass conc Normal [facility] Comment on above: Result Comment: Refe rence Range: <0.03 Within reference range. 0.03-0.09 Possible myocardial damage.Repeat at appropriate intervals to rule out chronic elevation. >= 0.10 Indicative of myocardial damage.Patients with high levels of Biotin oral intake (i.e >5mg/day) may have falsely decreased Troponin T levels. Samples collected within 8 hours of biotin intake may require additional information for diagnosis.[facility] [employer] [address] [place] [address] Performed By: #### BECCA MYLES ####[address] [address] Troponin T.cardiac mass conc ug/L Normal <0.03 [facility] Comment on above: Result Comment: Trop onin T results cannot be compared to Troponin-I results. Performed By: #### BECCA MYLES ####[address] [address] Encounters Encounter Date Encounter Type Care Provider Facility Start: 12-18-2023 End: 12-18-2023 ambulatory POLO DIAZ Not Available Start: 11-19-2023 End: 11-19-2023 ambulatory JEANINE WHITLOCK Not Available Start: 10-11-2023 End: 10-11-2023 ambulatory POLO DIAZ Not Available Start: 07-15-2023 End: 07-18-2023 [facility] Start: 07-15-2023 End: 07-17-2023 Subsequent hospital visit by physician román [facility] Dexa Scan Comment on above: Age-related osteopor osis without current pathological fracture Start: 05-24-2023 End: 05-24-2023 ambulatory JEANINE WHITLOCK Not Available Start: 05-10-2023 End: 05-11-2023 [facility] Start: 12-27-2022 End: 12-28-2022 ambulatory [facility] Start: 12-19-2022 End: 12-20-2022 ambulatory POLO DIAZ [facility] Start: 12-19-2022 End: 12-19-2022 Subsequent hospital visit by physician Jeanine Whitlock Work Phone: [facility] Start: 12-06-2020 End: 12-08-2020 Subsequent hospital visit by physician Maddie Sewell Dr [facility] Radiology Comment on above: Mild intermittent as thma without complication Start: 07-20-2017 End: 07-22-2017 Evaluation and management of inpatient JEANINE WHITLOCK [facility] Procedures Date Procedure Procedure Detail Performing Clinician Start: 07-15-2023 Dxa bone density thomas dy 1/> sites axial skel Tyler Ramey MD Work Phone: Start: 12-19-2022 Comprehensive metabo lic panel Polo Escobedo MATERIALS DIRECTOR - SAM[employer] Work Phone: Start: 12-19-2022 Lipid panel Polo ocampo MATERIALS DIRECTOR - [employer] Work Phone: Start: 12-19-2022 Urine albumin quantitative Polo Escobedo MATERIALS DIRECTOR - [employer] Work Phone: Start: 12-06-2020 Radiologic exam ches t 2 views Jeanine Whitlock Work Phone: Start: 01-23-2018 Colonoscopy Jeanine Rine Work Phone: Start: 07-22-2017 SENIOR BACKUP ADMINISTRATOR REPORT JEANINE R INE Start: 07-22-2017 DISCHARGE PATIENT JEANINE RINE Start: 07-22-2017 INITIATE OXYGEN THER APY PROTOCOL JEANINE RINE Start: 07-22-2017 BEDREST JEANINE RINE Start: 07-22-2017 DIET CARDIAC JEANINE RINE Start: 07-22-2017 FULL CODE JEANINE RINE Start: 07-22-2017 NURSING COMMUNICATION G ERRI RINE Start: 07-22-2017 PUNCTURE SITE CARE GERR I RINE Start: 07-22-2017 TELEMETRY MONITORING GE RRI RINE Start: 07-22-2017 VITAL SIGNS JEANINE RINE Start: 07-22-2017 TRANSFER PATIENT JEANINE RINE Start: 07-22-2017 DIAGNOSTIC CARDIAC C ATH LAB PROCEDURE JEANINE RINE Start: 07-22-2017 INITIATE OXYGEN THER APY PROTOCOL JEANINE RINE Start: 07-22-2017 INTAKE AND OUTPUT JEANINE RINE Start: 07-21-2017 DIAGNOSTIC CARDIAC C ATH LAB PROCEDURE JEANINE RINE Start: 07-21-2017 TELEMETRY MONITORING GE RRI RINE Start: 07-21-2017 INITIATE OXYGEN THER APY PROTOCOL JEANINE RINE Start: 07-21-2017 CBC JEANINE RINE Start: 07-21-2017 COMPREHENSIVE METABO LIC PANEL W/ REFLEX TO MG FOR LOW K JEANINE RINE Start: 07-21-2017 MAGNESIUM JEANINE RINE Start: 07-21-2017 DAILY WEIGHTS JEANINE RIN E Start: 07-21-2017 INTAKE AND OUTPUT JEANINE RINE Start: 07-20-2017 MAGNESIUM JEANINE RINE Start: 07-20-2017 POTASSIUM JEANINE RINE Start: 07-20-2017 STRESS TEST REPORT GERR I RINE Start: 07-20-2017 Myocardial spect mul tiple studies JEANINE RINE Start: 07-20-2017 Lipid panel JEANINE RINE Start: 07-20-2017 T4, FREE JEANINE RINE Start: 07-20-2017 TROPONIN JEANINE RINE Start: 07-20-2017 TSH WITH REFLEX JEANINE R INE Start: 07-20-2017 INITIATE OXYGEN THER APY PROTOCOL JEANINE RINE Start: 07-20-2017 (GXT) STRESS TEST EX ERCISE W OUT MYOVIEW JEANINE RINE Start: 07-20-2017 TELEMETRY MONITORING GE RRI RINE Start: 07-20-2017 VITAL SIGNS JEANINE RINE Start: 07-20-2017 INITIATE OXYGEN THER APY PROTOCOL JEANINE CHINYERE Start: 07-20-2017 INTAKE AND OUTPUT JEANINE JOSELINEE Start: 07-20-2017 NOTIFY PHYSICIAN (SPECIFY) JEANINE CHINYERE Start: 07-20-2017 PULSE OXIMETRY SPOT CHECK JEANINE CHINYERE Start: 07-20-2017 TELEMETRY MONITORING GE RRI RINE Start: 07-20-2017 IP CONSULT TO CARDIOLOGY JEANINE CHINYERE Start: 07-20-2017 PLACE INTERMITTENT PNEUMATIC COMPRESSION DEVICE JEANINE CHINYERE Start: 07-20-2017 PATIENT STATUS (DIRECT) JEANINE WHITLOCK Plan of Treatment Date Care Activity Detail Author Start: 01-24-2028 [facility] Start: 02-13-2027 DTaP/Tdap/Td vaccine (3 - Td or Tdap) DTaP/Tdap/Td vaccine (3 - Td or Tdap) [facility] Start: 05-24-2025 Screening for malign ant neoplasm of breast Breast [facility] Start: 12-20-2023 GFR test (Diabetes, CKD 3-4, OR last GFR 15-59) GFR test (Diabetes, CKD 3-4, OR last GFR 15-59) [facility] Start: 12-20-2023 Hemoglobin A1c measurement A1C test (Diabetic or Prediabetic) [facility] Start: 12-20-2023 Lipid panel Lipids [facility] [employer] Start: 12-20-2023 Urine screening for protein Diabetic Alb to Cr ratio (uACR) test [facility] Start: 01-01-2023 Influenza vaccination Flu vaccine (# 1) [facility] Start: 02-01-2021 Influenza vaccination Flu vaccine (# 1) [employer] Phone: Start: 12-02-2020 COVID-19 Vaccine (3 - Booster for Moderna series) COVID-19 Vaccine (3 - Booster for Moderna series) [facility] Start: 01-18-2020 Screening for malign ant neoplasm of breast Breast cancer screen [facility] Start: 07-23-2018 Creatinine measurement Creatinine [facility] [employer] Phone: Start: 07-23-2018 GFR test (Diabetes, CKD 3-4, OR last GFR 15-59) GFR test (Diabetes, CKD 3-4, OR last GFR 15-59) [facility] Start: 07-23-2018 Potassium monitoring Potassium monit brockng [employer] Phone: Start: 07-20-2018 Lipid panel [facility] [employer] [employer] Start: 07-01-2018 Pneumococcal 0-64 ye ars Vaccine (2 - PPSV23 if available, else PCV20) Pneumococcal 0-64 years Vaccine (2 - PPSV23 if available, else PCV20) [facility] Start: 07-01-2018 Pneumococcal 0-64 ye ars Vaccine (2 - PPSV23 or PCV20) Pneumococcal 0-64 years Vaccine (2 - PPSV23 or PCV20) [facility] Start: 2017 Shingles Vaccine (1 of 2) Shingles V accine (1 of 2) [facility] Start: 2012 Screening for malign ant neoplasm of colon [facility] Start: 06-15-2012 Hemoglobin A1c measurement A1C test (Diabetic or Prediabetic) [facility] Start: 1997 Screening for malign ant neoplasm of cervix [facility] Start: 1988 Screening for malign ant neoplasm of cervix [facility] Start: 1986 Hepatitis B vaccine (1 of 3 - Risk 3-dose series) Hepatitis B vaccine (1 of 3 - Risk 3-dose series) [facility] Start: 1985 Diabetic microalbumi gabo test Diabetic microalbuminuria test [employer] Phone: Start: 1985 Glaucoma screening Diabetic retinal exam [facility] Start: 1985 Hepatitis C screening Hepatitis C sc reen [facility] [employer] Start: 1985 Urine screening for protein Diabetic Alb to Cr ratio (uACR) test [facility] Start: 1982 HIV screening HIV screen [facility] [employer] Start: 1979 Depression Monitoring Depression Mon itoring [employer] Start: 1977 Diabetic foot examination Diabetic f oot exam [facility] Start: 1977 Diabetic retinal exam Diabetic retin al exam [employer] Phone: Start: 1973 Pneumococcal 0-64 ye ars Vaccine (1 of 2 - PPSV23) Pneumococcal 0-64 years Vaccine (1 of 2 - PPSV23) [employer] Phone: Start: 01-23-1968 COVID-19 Vaccine (#1) COVID-19 Vacci ne (#1) [employer] Start: 1967 Hepatitis B vaccine (1 of 3 - 3-dose series) Hepatitis B vaccine (1 of 3 - 3-dose series) [employer] Start: 1967 Hepatitis C screening Hepatitis C sc reen [employer] Phone: End: 12-19-2022 Hemoglobin A1c/Hemoglobin.total in Blood [employer] Phone: Comment on above: Once for 1 Occurrenc es starting 12/19/2022 until 12/19/2022 Payers Date Payer Category Payer Private Health Insurance [id number] 2019 Unknown [id number] 2014 Unknown [id number] 1965 Unknown [id number] 2.16.8 [id number] 1965 Unknown [id number] 2.16.8 [id number] 1967 Unknown [id number] 2.16.8 [id number] 1967 Unknown [id number] 2.16.8 [id number] 1967 Unknown [id number] 2.16.84 [id number] 1967 Unknown [id number] 2.16.84 [id number] 1967 Unknown [id number] 2.16.84 [id number] 1967 Unknown [id number] 1967 Unknown [id number] Social History Date Type Detail Facility Start: 07-19-2017 End: 01-23-2018 Tobacco smoking status NHIS Never smoker [facility] 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 Start: 01-25-2019 [facility] use [facility] Evaluation note Note Date & Type Note Facility Evaluation note Diagnosis Mild intermittent asthma without complication Unspecified asthma documented in this encounter [employer] Phone: Evaluation note Note Date & Type Note Facility Evaluation note Diagnosis Age-related osteoporosis without current pathological fracture Senile osteoporosis documented in this encounter [facility] 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 ACP-Advance Directive ACP-Power of Genetic Technologist Latest Code Status on File Code Status Date Activated Date Inactivated Comments Full Code 07/22/2017 1:14 PM 07/22/2017 9:48 PM Full Code 07/20/2017 6:15 AM 07/22/2017 1:14 PM Latest Code Status on File Code Status Date Activated Date Inactivated Comments Full Code 07/22/2017 1:14 PM 07/22/2017 9:48 PM Code Status History Code Status Date Activated Date Inactivated Comments Full Code 07/20/2017 6:15 AM 07/22/2017 1:14 PM Latest Code Status on File Code Status Date Activated Date Inactivated Comments Full Code 07/22/2017 1:14 PM 07/22/2017 9:48 PM Code Status History Code Status Date Activated Date Inactivated Comments Full Code 07/20/2017 6:15 AM 07/22/2017 1:14 PM Reason for Referral Specialty Diagnoses / Procedures Referred By Contac t Referred To Contact Radiology Diagnoses Age-related osteoporosis without current pathological fracture Procedures DEXA BONE DENSITY 2 SITES DEXA BONE DENSITY AXIAL SKELETON Tyler Ramey MD [address] [place] [address] Referral ID Status Reason Start Date Expiration Date V isits Requested Visits Authorized [id number] Pending Review 05/24/2023 05/23/2024 1 1 Additional Source Comments INFORMATION SOURCE (unrecogn ized section and content) DATE CREATED AUTHOR 11/22/2017 [facility] DATE CREATED AUTHOR AUTHOR'S ORGANIZ ATION 05/15/2023 [facility] DATE CREATED AUTHOR AUTHOR'S ORGANIZ ATION 07/18/2023 [facility] DATE CREATED AUTHOR AUTHOR'S ORGANIZ ATION 12/22/2023 [facility] dical Specialists [employer] Care Teams (unrecognized sec tion and content) Editing Computer Publisher Relationship Specialty Start Date End Date Jeanine Whitlock Liban [address] [place], [place] [id number] PCP - General 04/16/16 Editing Computer Publisher Relationship Specialty Start Date End Date Jeanine Whitlock [address] [place] [address] PCP - General 04/16/16 Reason for Visit (unrecogniz ed section and content) Specialty Diagnoses / Procedures Referred By Contac t Referred To Contact Radiology Diagnoses Age-related osteoporosis without current pathological fracture Procedures DEXA BONE DENSITY 2 SITES DEXA BONE DENSITY AXIAL SKELETON Tyler Ramey MD [address] [place] [address] Referral ID Status Reason Start Date Expiration Date V isits Requested Visits Authorized [id number] Pending Review 05/24/2023 05/23/2024 1 1 FOR RECORDS PERTAINING TO PATIENTS WHO ARE OR HAVE BEEN ENROLLED IN A CHEMICAL DEPENDENCY/SUBSTANCEABUSE PROGRAM, SOME INFORMATION MAY BE OMITTED. This clinical summary was aggregated from multiple sources. Caution should be exercised in using it in the provision of clinical care. This summary normalizes information from multiple sources, and as a consequence, information in this document may materially change the coding, format and clinical context of patient data. In addition, data may be omitted in some cases. CLINICAL DECISIONS SHOULD BE BASED ON THE PRIMARY CLINICAL RECORDS. [employer] [facility]. provides no warranty or guarantee of the accuracy or completeness of information in this document.
--- NOTE | 2024-01-10 10:02 | PM.PRESUREVA ---
History of Present Illness History of Present Illness Chief complaint: hallux valgus, hallux rigidus left foot Narrative: Patient presents for preadmission testing. The patient reports a long history of bilateral foot pain and bunions, left greater than right. She states the pain is worse with certain footwear and with spending long periods of time on her feet. She has tried [id number] medications, rest, and different footwear with no relief. She denies any specific trauma or injury, and denies numbness, tingling, weakness, or any other complaints. Review of Systems ROS Narrative REVIEW OF SYSTEMS: Negative except as stated in HPI, ten or more systems reviewed. Constitutional: No fever, chills, weakness ENT: No sore throat or epistaxis Cardiovascular: No chest pain, palpitations, or activity intolerance Respiratory: No shortness of breath, cough, or wheezing Gastrointestinal: No abdominal pain, constipation, diarrhea, or vomiting Genitourinary: No dysuria or hematuria Neurological: No numbness, tingling, weakness, or headache Psychiatric: No mood changes PFSH PFS Medical History (Updated 01/10/24 @ 09:39 by Alicia Rico NP) Arthritis ?M19.90 - Unspecified osteoarthritis, unspecified site (ICD-10) PTSD (post-traumatic stress disorder) ?F43.10 - Post-traumatic stress disorder, unspecified (ICD-10) Depression ?F32.A - Depression, unspecified (ICD-10) Panic attacks ?F41.0 - Panic disorder [episodic paroxysmal anxiety] (ICD-10) Anxiety ?F41.9 - Anxiety disorder, unspecified (ICD-10) COVID-19 ?U07.1 - COVID-19 (ICD-10) Migraine ?G43.909 - Migraine, unspecified, not intractable, without status migrainosus (ICD-10) Extremity edema ?R60.0 - Localized edema (ICD-10) Menopause ?Z78.0 - Asymptomatic menopausal state (ICD-10) Neuropathy, cervical (radicular) ?M54.12 - Radiculopathy, cervical region (ICD-10) Hypothyroid ?E03.9 - Hypothyroidism, unspecified (ICD-10) Hypertension ?I10 - Essential (primary) hypertension (ICD-10) Asthma ?J45.909 - Unspecified asthma, uncomplicated (ICD-10) Diabetes ?E11.9 - Type 2 diabetes mellitus without complications (ICD-10) Foot pain ?M79.673 - Pain in unspecified foot (ICD-10) Hallux rigidus ?M20.20 - Hallux rigidus, unspecified foot (ICD-10) Hallux valgus ?M20.10 - Hallux valgus (acquired), unspecified foot (ICD-10) Surgical History (Updated 01/10/24 @ 09:39 by Alicia Rico NP) History of colonoscopy ?Z98.890 - Other specified postprocedural states (ICD-10) History of cardiac catheterization ?Z98.890 - Other specified postprocedural states (ICD-10) H/O cervical spine surgery ?Z98.890 - Other specified postprocedural states (ICD-10) History of cardiac catheterization ?Z98.890 - Other specified postprocedural states (ICD-10) H/O section ?Z98.891 - History of uterine scar from previous surgery (ICD-10) Hx of tonsillectomy ?Z90.89 - Acquired absence of other organs (ICD-10) Family History (Updated 01/10/24 @ 09:39 by Alicia Rico NP) Other Family history of diabetes mellitus Family history of hypertension Family history of myocardial infarction Family history of stroke Social History (Updated 01/10/24 @ 09:30 by Alicia Rico NP) Within the past year, how often did you have a drink containing alcohol: monthly or less Smoking status: Never smoker Non-prescribed substance use: denies use 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 Highest level of school completed/degree received: Master's degree Meds Home Medications and Allergies Home Medications ?Medication ?Instructions ?Recorded ?Confirmed ?Type alprazolam 0.25 mg tablet 0.25 mg PO TID PRN anxiety 01/10/24 01/10/24 History amlodipine 5 mg tablet 5 mg PO DAILY 01/10/24 01/10/24 History aripiprazole 5 mg tablet 5 mg PO DAILY 01/10/24 01/10/24 History ascorbic acid (vitamin C) 1,000 mg 1 g PO DAILY 01/10/24 01/10/24 History capsule aspirin 81 mg tablet,delayed 81 mg PO DAILY 01/10/24 01/10/24 History release (Adult Aspirin Regimen) atorvastatin 10 mg tablet 0.5 mg PO DAILY 01/10/24 01/10/24 History bisoprolol fumarate 10 mg tablet 10 mg PO DAILY 01/10/24 01/10/24 History calcium carbonate 500 mg PO DAILY 01/10/24 01/10/24 History chlorthalidone 50 mg tablet 50 mg PO DAILY 01/10/24 01/10/24 History duloxetine 60 mg capsule,delayed 120 mg PO DAILY 01/10/24 01/10/24 History release empagliflozin 10 mg tablet 10 mg PO DAILY 01/10/24 01/10/24 History (Jardiance) losartan 100 mg tablet 100 mg PO DAILY 01/10/24 01/10/24 History meloxicam 15 mg tablet 15 mg PO DAILY 01/10/24 01/10/24 History metformin 500 mg tablet,extended 1,000 mg PO BID 01/10/24 01/10/24 History release 24 hr montelukast 10 mg tablet 10 mg PO DAILY 01/10/24 01/10/24 History multivitamin (Daily Multi-Vitamin 1 tab PO DAILY 01/10/24 01/10/24 History tablet) trazodone 150 mg tablet 75 mg PO QPM 01/10/24 01/10/24 History vitamin B complex (Complex B-100 1 tab PO DAILY 01/10/24 01/10/24 History tablet,extended release) zinc 50 mg tablet 50 mg PO DAILY 01/10/24 01/10/24 History Allergies Allergy/AdvReac Type Severity Reaction Status Date / Time Iodinated Contrast Media Allergy Rash Verified 01/10/24 09:29 lisinopril Allergy Cough Verified 01/10/24 09:29 shellfish derived Allergy Rash Verified 01/10/24 09:29 Exam Narrative Exam Narrative: Constitutional: Awake, alert, comfortable, well-appearing, nontoxic, interactive, vital signs as charted Head: Normocephalic, atraumatic Neck: Supple, normal appearance, normal range of motion, no meningeal signs, no lymphadenopathy Respiratory: No respiratory distress, breath sounds clear Cardiovascular: Regular rate and rhythm, strong and regular heart tones Musculoskeletal: Obvious hallux valgus deformity left foot with tenderness over the first MTP, good capillary refill, sensation intact Skin: No rashes or induration, no lesions, only visible skin inspected Neuro: No neurological deficits, normal sensation Psychiatric: Oriented ?3, normal affect Assessment and Plan Assessment and Plan (1) Hallux valgus: (2) Hallux rigidus: (3) Foot pain: Plan Left first MPJ fusion with bone graft as needed scheduled with Dr. Sanon January 16, 2024.
[2024-01-10 11:37] LABS: Anion Gap 12.5; BUN Creatinine Ratio 27.7; Calcium 9.5 mg/dL (8.5-10.1); Chloride 101 mmol/L (98-107); Estimated GFR (African America >60 (>=60); Estimated GFR (Non-African Ame >60 (>=60); Glucose 165 mg/dL (74-106); Potassium 3.5 mmol/L (3.5-5.1); Sodium 141 mmol/L (136-145)
== END 2024-01-10 09:05 | disposition home or self-care (01) ==
LOC: PST 09:06
PROVIDERS: Visit Provider Podiatrist Foot & Ankle Surgery
DX: Z01.810 Encounter for preprocedural cardiovascular examination (principal); Z01.812 Encounter for preprocedural laboratory examination; Z01.818 Encounter for other preprocedural examination; M20.12 Hallux valgus (acquired), left foot; M20.22 Hallux rigidus, left foot
CPT/HCPCS: 80048; 93005; G0463

== ENCOUNTER 2024-01-16 15:00 | Observation (INO) | payer OTHER, SELFPAY ==
[2024-01-10 09:51] VITALS: BP 128/82; PULSE 63; TEMP 36.3; O2SAT 95; BMI 38.9
[2024-01-16] VITALS (27 sets, daily range): BP systolic 73–119; BP diastolic 41–68; PULSE 66–87; TEMP 36.3–36.8; O2SAT 84–99; BMI 24.6; BMI 38.5
--- NOTE | 2024-01-16 | FL_ITS ---
[address] [address] Patient Name: AISHWARYA DUNN MRN: [id number] date: 1965 Sex: F Assigned Patient Location: SURGOUT Current Patient Location: [place] Accession/Order Number: [id number] Exam Date: 01/16/2024 10:54 Report Date: 01/17/2024 11:56 At the request of: ANA SCHUSTER Procedure: FL fluoroscopy <1hr NON-READ EXAM: FL fluoroscopy <1hr NON-READ HISTORY: TECHNIQUE: FINDINGS: Please see Operative Report. Electronically authenticated by: RADIOLOGIST NO Date: 01/17/2024 11:56
--- OUTSIDE RECORDS SUMMARY | 2024-01-16 07:21 | XMS_ITS | CCD ---
Author Organization [facility] ion Partnership [facility] Care Team Providers Care Superintendent Compressor Stations Name Role Phone RINE, JEANINE L Unavailable Unavailable KABOUR, AMEER Unavailable Unavailable AHMAD, SHOWKAT Unavailable Unavailable KAMIREDDY, ADIREDDY Unavailable Unavailable Rine, Jeanine L Primary Care Provider [phone] Joselinee, Jeanine L Primary Care Provider POLO DIAZ Referring Unavailable RINE, JEANINE L Primary Care Unavailable RINE, JEANINE L Referring Unavailable RINE, JEANINE L Primary Care Unavailable RAMEY, TYLER Referring Unavailable RINE, JEANINE L Primary Care Unavailable RINE, JEANINE L Primary Care Unavailable RAMEY, TYELR Referring Unavailable POLO DIAZ Attending Unavailable RINE, JEANINE L Attending Unavailable RINE, JEANINE L Attending Unavailable RINE, JEANINE L Referring Unavailable POLO DIAZ Attending Unavailable Allergies Allergy Classification Reported Allergen(s) Allergy Type Date of Onset Reaction(s) Facility Unclassified (1 source) Iodides Propensity to adverse reactions to drug 07-14-2012 [employer] Work Phone: Unclassified (1 source) Shellfish-Derive d Products Propensity to adverse reactions to drug 07-21-2012 [employer] (2 sources) Seafood Propensity to adverse reactions to drug 07-21-2012 [employer] (2 sources) Iodides Propensity to adverse reactions to drug 07-14-2012 [employer] Work Phone: Medications Current Medications Medication Drug [...] Interpreted by: Bernardo Squires MD Signed by: eBrnardo Squires MD 07/17/23 Final result Normal [facility] DXA Bone [Mass/Area] Bone de nsityon 07-17-2023 Some evidence of elevated bone mineral density [facility] RIS CONSOLIDATED DEXA BONE DENSITY 2 SITES [...] density 1.419 g/sq cm. T score 3.3. [facility] RIS CONSOLIDATED Bernardo Squires MD - 07/17/2023 [...] Some evidence of elevated bone mineral density [facility] [employer] DXA Bone [Mass/Area] Bone de nsityOrdered By: Bernardo Squires on 07-17-2023 [facility] [employer] Work Phone: DXA Bone [Mass/Area] Bone de nsityon 07-15-2023 Radiology Study observation (narrative) [facility] [employer] BI MAMMOGRAM SCREENING TOMOS YNTHESIS BILATERALon 05-24-2023 [...] IS VERY IMPORTANT TO YOUR HEALTH. THE [employer] GUIDELINES RECOMMEND THAT WOMEN 40 [...] Not Available Comment on above: Order Comment: [facility] CBC with Diffon 12-27-2022 Abs. Basophil 0.06 k/uL Normal 0.00-0.20 [facility] Comment on above: Performed By: #### C DP #### [facility] [address] [place], [place] [address] Sander Hand: Gerson Barton MD Abs.Imm.Granulocyte 0.08 k/uL Normal 0.00-0.30 [facility] Comment on above: Performed By: #### C DP #### [address] [place], [facility] Sander Hand: Gerson Barton MD Abs.Neutrophil (Seg) 6.19 k/uL Normal 1.50-8.10 [facility] Comment on above: Performed By: #### C DP #### [address] [place] [address] Sander Hand: Gerson Barton MD Basophils/100 WBC (Bld) 1 % Normal 0-2 [facility] Comment on above: Performed By: #### C DP #### [address] [place] [address] Sander Hand: Gerson Barton MD Eosinophils (Bld) [#/Vol] 0.12 10*3/uL Normal 0.00-0.44 [facility] Comment on above: Performed By: #### C DP #### [address] [place], [facility] Sander Hand: Gerson Barton MD Eosinophils/100 WBC (Bld) 1 % Normal 1-4 [facility] Comment on above: Performed By: #### C DP #### [address] [place], [place] [address] Sander Hand: Gerson Barton MD Erythrocyte distribution width (RBC) [Ratio] 14.0 % Normal 11.8-14.4 [facility] Comment on above: Performed By: #### C DP #### [address] [place] [id number] Sander Hand: Gerson Barton MD Hematocrit (Bld) [Volume fraction] 44.1 % Normal 36.3-47.1 [facility] Comment on above: Performed By: #### C DP #### [facility] [address] [place], [place] [id number] Sander Hand: Gerson Barton MD Hemoglobin (Bld) [Mass/Vol] 14.5 g/dL Normal 11.9-15.1 [facility] Comment on above: Performed By: #### C DP #### [facility] [address] [place], [place] [id number] Sander Hand: Gerson Barton MD Immature granulocytes/100 WBC (Bld) 1 % High 0 [facility] Comment on above: Performed By: #### C DP #### [facility] [address] [place], [facility] Sander Hand: Gerson Barton MD Lymphocytes (Bld) [#/Vol] 3.02 10*3/uL Normal 1.10-3.70 [facility] Comment on above: Performed By: #### C DP #### [facility] [address] [place], [facility] Sander Hand: Gerson Barton MD Lymphocytes/100 WBC (Bld) 29 % Normal 24-43 [facility] Comment on above: Performed By: #### C DP #### [facility] [address] [place], [facility] Sander Hand: Gerson Barton MD MCH (RBC) [Entitic mass] 29.2 pg Normal 25.2-33.5 [facility] Comment on above: Performed By: #### C DP #### [facility] [address] [place] [facility] Sander Hand: Gerson Barton MD MCHC (RBC) [Mass/Vol] 32.9 g/dL Normal 28.4-34.8 [facility] Comment on above: Performed By: #### C DP #### [facility] [address] [place] [facility] Sander Hand: Gerson Barton MD MCV (RBC) [Entitic vol] 88.7 fL Normal 82.6-102.9 [facility] Comment on above: Performed By: #### C DP #### [facility] [address] [place], [place] [id number] Sander Hand: Gerson Barton MD Monocytes (Bld) [#/Vol] 0.98 10*3/uL Normal 0.10-1.20 [facility] Comment on above: Performed By: #### C DP #### [facility] [address] [place] [id number] Sander Hand: Gerson Barton MD Monocytes/100 WBC (Bld) 9 % Normal 3-12 [facility] Comment on above: Performed By: #### C DP #### [facility] [address] [place], [place] [address] Sander Hand: Gerson Barton MD Neutrophil (Seg) 59 % Normal 36-65 [facility] Comment on above: Performed By: #### C DP #### [address] [place], [facility] Sander Hand: Gerson Barton MD NRBC Automated 0.0 per 100 WBC Normal 0.0 [facility] Comment on above: Performed By: #### C DP #### [address] [place], [facility] Sander Hand: Gerson Barton MD Platelet mean volume (Bld) [Entitic vol] 9.3 fL Normal 8.1-13.5 [facility] Comment on above: Performed By: #### C DP #### [facility] [address] [place], [facility] Sander Hand: Gerson Barton MD Platelets (Bld) [#/Vol] 365 10*3/uL Normal 138-453 [facility] Comment on above: Performed By: #### C DP #### [address] [place], [place] [id number] Sander Hand: Gerson Barton MD RBC (Bld) [#/Vol] 4.97 10*6/uL Normal 3.95-5.11 [facility] Comment on above: Performed By: #### C DP #### [address] [place] [address] Sander Hand: Gerson Barton MD WBC (Bld) [#/Vol] 10.5 10*3/uL Normal 3.5-11.3 [facility] Comment on above: Performed By: #### C DP #### [address] [place] [address] Sander Hand: Gerson Barton MD Hemoglobin A1Con 12-20-2022 Glucose [Mass/Vol] 126 mg/dL Normal [facility] Comment on above: Result Comment: The ADA and AACC recommend providing the estimated average glucose result to permit better patient understanding of their HBA1c result. Performed By: #### C P, CDP, TSHX #### [address] [place] [address] Sander Hand: Gerson Barton MD #### URNMAB, FT4, GLYHGB, VD25, LIPR #### [address] [id number] Sander Hand: Asad Draper MD HbA1c (Bld) [Mass fraction] 6.0 % Normal 4.0-6.0 [facility] Comment on above: Performed By: #### C P, CDP, TSHX #### [address] [place] [address] Sander Hand: Gerson Barton MD #### URNMAB, FT4, GLYHGB, VD25, LIPR #### [address] [address] Sander Hand: Asad Draper MD Lipid Profileon 12-20-2022 Cholesterol [Mass/Vol] 115 mg/dL Normal <200 [facility] Comment on above: Result Comment: Cholesterol Guidelines: <200 Desirable 200-240 Borderline >240 Undesirable Performed By: #### C P, CDP, TSHX #### [facility] [address] [place] [address] [place] [address] Sander Hand: Gerson Barton MD #### URNMAB, FT4, GLYHGB, VD25, LIPR #### [employer] [address] [place], [place] [id number] Sander Hand: Asad Draper MD Cholesterol in HDL [Mass/Vol] 49 mg/dL Normal >40 [facility] Comment on above: Result Comment: HDL Guidelines: <40 Undesirable 40-59 Borderline >59 Desirable Performed By: #### C P, CDP, TSHX #### [address] [place] [address] Sander Hand: Gerson Barton MD #### URNMAB, FT4, GLYHGB, VD25, LIPR #### [facility] [employer] [facility] [place] [address] Sander Hand: Asad Draper MD Cholesterol in LDL [Mass/Vol] 32 mg/dL Normal 0-130 [facility] Comment on above: Result Comment: LDL Guidelines: <100 Desirable 100-129 Near to/above Desirable 130-159 Borderline >159 Undesirable Direct (measured) LDL and calculated LDL are not interchangeable tests. Performed By: #### C P, CDP, TSHX #### [address] [place] [address] Sander Hand: Gerson Barton MD #### URNMAB, FT4, GLYHGB, VD25, LIPR #### [employer] [address] [place] [address] Sander Hand: Asad Draper MD Cholesterol.total/Ch olesterol in HDL [Mass ratio] 2.3 {ratio} Normal <5 [facility] Comment on above: Performed By: #### C P, CDP, TSHX #### [address] [place] [address] Sander Hand: Gerson Barton MD #### URNMAB, FT4, GLYHGB, VD25, LIPR #### [facility] [employer] [facility] [place], [place] [id number] Sander Hand: Asad Draper MD Triglyceride [Mass/Vol] 171 mg/dL High <150 [facility] Comment on above: Result Comment: Triglyceride Guidelines: <150 Desirable 150-199 Borderline 200-499 High >499 Very high Based on AHA Guidelines for fasting triglyceride, March 2012. Performed By: #### C P, CDP, TSHX #### [address] [place] [id number] Sander Hand: Gerson Barton MD #### URNMAB, FT4, GLYHGB, VD25, LIPR #### [place] [address] [place], [place] [id number] Sander Hand: Aasd Draper MD Microalb.,Random Uron 2022 Microalb/Creat Ratio 178 mcg/mg creat High <25 [facility] Comment on above: Performed By: #### C P, CDP, TSHX #### [address] [place] [id number] Sander Hand: Gerson Barton MD #### URNMAB, FT4, GLYHGB, VD25, LIPR #### [place] [address] [place], [place] [id number] Sander Hand: Asad Draper MD Microalbumin conc. 764 mg/L High <21 [facility] Comment on above: Performed By: #### C P, CDP, TSHX #### [address] [place] [id number] Sander Hand: Gerson Barton MD #### URNMAB, FT4, GLYHGB, VD25, LIPR #### [address] [address] Sander Hand: Asad Draper MD Creatinine [Mass/Vol] 428.7 mg/dL High 28.0-217.0 [facility] Comment on above: Performed By: #### C P, CDP, TSHX #### [address] [place], [place] 8348[address] Sander Hand: Gerson Barton MD #### URNMAB, FT4, GLYHGB, VD25, LIPR #### [address] [address] Sander Hand: Asad Draper MD Thyroxine, Freeon 12-202022 Thyroxine, Free 1.5 ng/dL Normal 0.9-1.[address] [facility] Comment on above: Performed By: #### C P, CDP, TSHX #### [address] [place] [address] Sander Hand: Gerson Barton MD #### URNMAB, FT4, GLYHGB, VD25, LIPR #### [place] [address] [place], [place] [id number] Sander Hand: Asad Draper MD Vitamin D 25 OHon 12-20-2022 Vitamin D 25 [place] 59.0 ng/mL Normal >29.[address] [facility] Comment on above: Result Comment: Reference Range: Vitamin D status Range Deficiency <20 ng/mL Mild Deficiency 20-30 ng/mL Sufficiency 30-100 ng/mL Toxicity >100 ng/mL Performed By: #### C P, CDP, TSHX #### [address] [place] [address] Sander Hand: Gerson Barton MD #### URNMAB, FT4, GLYHGB, VD25, LIPR #### [facility] [address] [place] [address] Sander Hand: Asad Draper MD CBC with Auto Differentialon 12-19-2022 Basophils (Bld) [#/Vol] 0.05 10*3/uL [facility] Basophils/100 WBC (Bld) 0 % 0 - 2 % [facility] Eosinophils (Bld) [#/Vol] 0.07 10*3/uL [facility] Eosinophils/100 WBC (Bld) 1 % 1 - 4 % [facility] Erythrocyte distribution width (RBC) [Ratio] 13.8 % 11.8 - 14.4 % [facility] Hematocrit (Bld) [Volume fraction] 47.2 % High 36.3 - 47.1 % [facility] Hemoglobin (Bld) [Mass/Vol] 15.9 g/dL High 11.9 - 15.1 g/dL [facility] Immature granulocytes (Bld) [#/Vol] 0.09 10*3/uL [facility] Immature granulocytes/100 WBC (Bld) 1 % High 0 [facility] Interpretation and review of laboratory results Abnormal [facility] Lymphocytes/100 WBC (Bld) 16 % Low 24 - 43 % [facility] Lymphocytes/100 WBC (Bld) 1.85 % [facility] MCH (RBC) [Entitic mass] 28.8 pg 25.2 - 33.5 pg [facility] MCHC (RBC) [Mass/Vol] 33.7 g/dL 28.4 - 34.8 g/dL [facility] MCV (RBC) [Entitic vol] 85.5 fL 82.6 - 102.9 fL [facility] Monocytes/100 WBC (Bld) 8 % 3 - 12 % [facility] Monocytes/100 WBC (Bld) 0.89 % [facility] Neutrophils/100 WBC (Bld) 74 % High 36 - 65 % [facility] Nucleated RBC/100 WBC (Bld) [Ratio] 0.0 % 0.0 per 100 WBC [facility] Platelet mean volume (Bld) [Entitic vol] 9.0 fL 8.1 - 13.5 fL [facility] Platelets (Bld) [#/Vol] 335 10*3/uL [facility] RBC (Bld) [#/Vol] 5.52 10*6/uL High 3.95 - 5.1 1 m/uL [facility] Segmented neutrophils/100 WBC (Bld) 8.61 % High [facility] WBC other (Bld) [#/Vol] 11.6 High [facility] CBC with Diffon 12-19-2022 Abs. Basophil 0.05 k/uL Normal 0.00-0.20 [facility] Comment on above: Performed By: #### C P, CDP, TSHX #### [address] [place] [id number] Sander Hand: Gerson Barton MD #### YESY, FT4, GLYHGB, VD25, LIPR #### [place] [id number] Sander Hand: Asad Draper MD Abs.Imm.Granulocyte 0.09 k/uL Normal 0.00-0.30 [facility] Comment on above: Performed By: #### C P, CDP, TSHX #### [address] [place] [address] Sander Hand: Gerson Barton MD #### YESY, FT4, GLYHGB, VD25, LIPR #### [address] [id number] Sander Hand: Asad Draper MD Abs.Neutrophil (Seg) 8.61 k/uL High 1.50-8.10 [facility] Comment on above: Performed By: #### C P, CDP, TSHX #### [facility] [address] [place] [address] [place] [address] Sander Hand: Gerson Barton MD #### URNMAB, FT4, GLYHGB, VD25, LIPR #### [address] [id number] Sander Hand: Asad Draper MD Basophils/100 WBC (Bld) 0 % Normal 0-2 [facility] Comment on above: Performed By: #### C P, CDP, TSHX #### [address] [place] [id number] Sander Hand: Gerson Barton MD #### URNMAB, FT4, GLYHGB, VD25, LIPR #### [place] [id number] Sander Hand: Asad Draper MD Eosinophils (Bld) [#/Vol] 0.07 10*3/uL Normal 0.00-0.44 [facility] Comment on above: Performed By: #### C P, CDP, TSHX #### [address] [place] [id number] Sander Hand: Gerson Barton MD #### URNMAB, FT4, GLYHGB, VD25, LIPR #### [place] [address] Sander Hand: Asad Draper MD Eosinophils/100 WBC (Bld) 1 % Normal 1-4 [facility] Comment on above: Performed By: #### C P, CDP, TSHX #### [address] [place] [address] Sander Hand: Gerson Barton MD #### URNMAB, FT4, GLYHGB, VD25, LIPR #### [place] [id number] Sander Hand: Asad Draper MD Erythrocyte distribution width (RBC) [Ratio] 13.8 % Normal 11.8-14.4 [facility] Comment on above: Performed By: #### C P, CDP, TSHX #### [address] [place], [place] 434[address]83 Sander Hand: Gerson Barton MD #### URNMAB, FT4, GLYHGB, VD25, LIPR #### [address] [id number] Sander Hand: Asad Draper MD Hematocrit (Bld) [Volume fraction] 47.2 % High 36.3-47.1 [facility] Comment on above: Performed By: #### C P, CDP, TSHX #### [address] [place] [address] Sander Hand: Gerson Barton MD #### URNMAB, FT4, GLYHGB, VD25, LIPR #### [address] [id number] Sander Hand: Asad Draper MD Hemoglobin (Bld) [Mass/Vol] 15.9 g/dL High 11.9-15.1 [facility] Comment on above: Performed By: #### C P, CDP, TSHX #### [address] [place], [place] 5386[address] Sander Hand: Gerson Barton MD #### URNMAB, FT4, GLYHGB, VD25, LIPR #### [address] [address] Sander Hand: Asad Draper MD Immature granulocytes/100 WBC (Bld) 1 % High 0 [facility] Comment on above: Performed By: #### C P, CDP, TSHX #### [address] [place] [address] Sander Hand: Gerson Barton MD #### URNMAB, FT4, GLYHGB, VD25, LIPR #### [address] [id number] Sander Hand: Asad Draper MD Lymphocytes (Bld) [#/Vol] 1.85 10*3/uL Normal 1.10-3.70 [facility] Comment on above: Performed By: #### C P, CDP, TSHX #### [facility] [address] [place] [address] Sander Hand: Gerson Barton MD #### URNMAB, FT4, GLYHGB, VD25, LIPR #### [address] [id number] Sander Hand: Asad Draper MD Lymphocytes/100 WBC (Bld) 16 % Low 24-43 [facility] Comment on above: Performed By: #### C P, CDP, TSHX #### [address] [place] [address] Sander Hand: Gerson Barton MD #### URNMAB, FT4, GLYHGB, VD25, LIPR #### [address] [address] Sander Hand: Asad Draper MD MCH (RBC) [Entitic mass] 28.8 pg Normal 25.2-33.5 [facility] Comment on above: Performed By: #### C P, CDP, TSHX #### [facility] [address] [place] [address] Dr[address] [place] [id number] Sander Hand: Gerson Barton MD #### URNMAB, FT4, GLYHGB, VD25, LIPR #### [address] [id number] Sander Hand: Asad Draper MD MCHC (RBC) [Mass/Vol] 33.7 g/dL Normal 28.4-34.8 [facility] Comment on above: Performed By: #### C P, CDP, TSHX #### [facility] [address] [place] [address] [place] [address] Sander Hand: Gerson Barton MD #### URNMAB, FT4, GLYHGB, VD25, LIPR #### [place] [address] [place] [address] Sander Hand: Asad Draper MD MCV (RBC) [Entitic vol] 85.5 fL Normal 82.6-102.9 [facility] Comment on above: Performed By: #### C P, CDP, TSHX #### [address] [place], [place] [id number] Sander Hand: Gerson Barton MD #### URNMAB, FT4, GLYHGB, VD25, LIPR #### [address] [address] Sander Hand: Asad Draper MD Monocytes (Bld) [#/Vol] 0.89 10*3/uL Normal 0.10-1.20 [facility] Comment on above: Performed By: #### C P, CDP, TSHX #### [address] [place], [place] [address]798783 Sander Hand: Gerson Barton MD #### URNMAB, FT4, GLYHGB, VD25, LIPR #### [address] [id number] Sander Hand: Asad Draper MD Monocytes/100 WBC (Bld) 8 % Normal 3-12 [facility] Comment on above: Performed By: #### C P, CDP, TSHX #### [address] [place], [place] [id number] Sander Hand: Gerson Barton MD #### URNMAB, FT4, GLYHGB, VD25, LIPR #### [address] [id number] Sander Hand: Asad Draper MD Neutrophil (Seg) 74 % High 36-65 [facility] Comment on above: Performed By: #### C P, CDP, TSHX #### [address] [place] [address] Sander Hand: Gerson Barton MD #### URNMAB, FT4, GLYHGB, VD25, LIPR #### [address] [id number] Sander Hand: Asad Draper MD NRBC Automated 0.0 per 100 WBC Normal 0.0 [facility] Comment on above: Performed By: #### C P, CDP, TSHX #### [address] [place] [id number] Sander Hand: Gerson Barton MD #### URNMAB, FT4, GLYHGB, VD25, LIPR #### [place] [id number] Sander Hand: Asad Draper MD Platelet mean volume (Bld) [Entitic vol] 9.0 fL Normal 8.1-13.5 [facility] Comment on above: Performed By: #### C P, CDP, TSHX #### [address] [place] [id number] Sander Hand: Gerson Barton MD #### URNMAB, FT4, GLYHGB, VD25, LIPR #### [address] [id number] Sander Hand: Asad Draper MD Platelets (Bld) [#/Vol] 335 10*3/uL Normal 138-453 [facility] Comment on above: Performed By: #### C P, CDP, TSHX #### [address] [place] [id number] Sander Hand: Gerson Barton MD #### URNMAB, FT4, GLYHGB, VD25, LIPR #### [address] [address] Sander Hand: Asad Draper MD RBC (Bld) [#/Vol] 5.52 10*6/uL High 3.95-5.11 [facility] Comment on above: Performed By: #### C P, CDP, TSHX #### [address] [place], [place] 5950083 Sander Hand: Gerson Barton MD #### URNMAB, FT4, GLYHGB, VD25, LIPR #### [facility] [employer] [facility] [place] [address] Sander Hand: Asad Draper MD WBC (Bld) [#/Vol] 11.6 10*3/uL High 3.5-11.3 [facility] Comment on above: Performed By: #### C P, CDP, TSHX #### [address] [place], [place] 1926783 Sander Hand: Gerson Barton MD #### URNMAB, FT4, GLYHGB, VD25, LIPR #### [address] [address] Sander Hand: Asad Draper MD Comp Metabolic Profon 2022 Albumin [Mass/Vol] 5.1 g/dL Normal 3.5-5.2 [facility] Comment on above: Performed By: #### C P, CDP, TSHX #### [address] [place], [place] 1867083 Sander Hand: Gerson Barton MD #### URNMAB, FT4, GLYHGB, VD25, LIPR #### [place] [address] [place] [address] Sander Hand: Asad Draper MD Albumin/Glob Ratio 1.6 Normal 1.0-2.5 [facility] Comment on above: Performed By: #### C P, CDP, TSHX #### [facility] [address] [place], [place] 0658483 Sander Hand: Gerson Barton MD #### URNMAB, FT4, GLYHGB, VD25, LIPR #### [address] [id number] Sander Hand: Asad Draper MD Alkaline Phos 74 U/L Normal 35-104 [facility] Comment on above: Performed By: #### C P, CDP, TSHX #### [facility] [address] [place], [place] [id number] Sander Hand: Gerson Barton MD #### URNMAB, FT4, GLYHGB, VD25, LIPR #### [address] [id number] Sander Hand: Asad Draper MD ALT [Catalytic activity/Vol] 44 U/L High 5-33 [facility] Comment on above: Performed By: #### C P, CDP, TSHX #### [address] [place], [place] [id number] Sander Hand: Gerson Barton MD #### URNMAB, FT4, GLYHGB, VD25, LIPR #### [address] [id number] Sander Hand: Asad Draper MD Anion gap [Moles/Vol] 14 mmol/L Normal 9-17 [facility] Comment on above: Performed By: #### C P, CDP, TSHX #### [facility] [address] [place], [place] [id number] Sander Hand: Gerson Barton MD #### URNMAB, FT4, GLYHGB, VD25, LIPR #### [address] [place], [place] [id number] Sander Hand: Asad Draper MD AST [Catalytic activity/Vol] 27 U/L Normal <32 [facility] Comment on above: Performed By: #### C P, CDP, TSHX #### [address] [place], [place] [id number] Sander Hand: Gerson Barton MD #### URNMAB, FT4, GLYHGB, VD25, LIPR #### [address] [id number] Sander Hand: Asad Draper MD Bilirubin [Mass/Vol] 1.7 mg/dL High 0.3-1.2 [facility] Comment on above: Performed By: #### C P, CDP, TSHX #### [address] [place] [address] Sander Hand: Gerson Barton MD #### URNMAB, FT4, GLYHGB, VD25, LIPR #### [address] [id number] Sander Hand: Asad Draper MD BUN/CRE Ratio 20 Normal 9-20 [facility] Comment on above: Performed By: #### C P, CDP, TSHX #### [address] [place] [address] Sander Hand: Gerson Barton MD #### URNMAB, FT4, GLYHGB, VD25, LIPR #### [address] [id number] Sander Hand: Asad Draper MD Calcium [Mass/Vol] 10.5 mg/dL High 8.6-10.4 [facility] Comment on above: Performed By: #### C P, CDP, TSHX #### [address] [place] [address] Sander Hand: Gerson Barton MD #### URNMAB, FT4, GLYHGB, VD25, LIPR #### [address] [id number] Sander Hand: Asad Draper MD Chloride [Moles/Vol] 94 mmol/L Low 98-107 [facility] Comment on above: Performed By: #### C P, CDP, TSHX #### [facility] [address] [place] [address] Dr. [place], [place] [phone] Sander Hand: Gerson Barton MD #### URNMAB, FT4, GLYHGB, VD25, LIPR #### [address] [place] [address] Sander Hand: Asad Draper MD CO2 [Moles/Vol] 30 mmol/L Normal 20-[address] [facility] Comment on above: Performed By: #### C P, CDP, TSHX #### [facility] [address] [place] [address] [place] [address] Sander Hand: Gerson Barton MD #### URNMAB, FT4, GLYHGB, VD25, LIPR #### [address] [address] Sander Hand: Asad Draper MD Creatinine [Mass/Vol] 0.8 mg/dL Normal 0.5-0.9 [facility] Comment on above: Performed By: #### C P, CDP, TSHX #### [facility] [address] [place] [address] Dr. [place], [place] [phone] Sander Hand: Gerson Barton MD #### URNMAB, FT4, GLYHGB, VD25, LIPR #### [address] [id number] Sander Hand: Asad Draper MD GFR/1.73 sq M.predicted among non-blacks MDRD (S/P/Bld) [Vol rate/Area] mL/min/{1.73_m2} Normal >60 [facility] Comment on above: Result Comment: These results [...] By: #### C P, CDP, TSHX #### [address] [place] [id number] Sander Hand: Gerson Barton MD #### URNMAB, FT4, GLYHGB, VD25, LIPR #### [address] [id number] Sander Hand: Asad Draper MD Glucose [Mass/Vol] 137 mg/dL High 70-99 [facility] Comment on above: Performed By: #### C P, CDP, TSHX #### [address] [place] [id number] Sander Hand: Gerson Barton MD #### URNMAB, FT4, GLYHGB, VD25, LIPR #### [address] [id number] Sander Hand: Asad Draper MD Potassium [Moles/Vol] 4.3 mmol/L Normal 3.7-5.3 [facility] Comment on above: Performed By: #### C P, CDP, TSHX #### [address] [place] [address] Sander Hand: Gerson Barton MD #### URNMAB, FT4, GLYHGB, VD25, LIPR #### [address] [id number] Sander Hand: Asad Draper MD Protein [Mass/Vol] 8.2 g/dL Normal 6.4-8.3 [facility] Comment on above: Performed By: #### C P, CDP, TSHX #### [address] [place] [address] Sander Hand: Gerson Barton MD #### URNMAB, FT4, GLYHGB, VD25, LIPR #### [address] [place], [place] [id number] Sander Hand: Asad Draper MD Sodium [Moles/Vol] 138 mmol/L Normal 135-144 [facility] Comment on above: Performed By: #### C P, CDP, TSHX #### [address] [place] [address] Sander Hand: Gerson Barton MD #### URNMAB, FT4, GLYHGB, VD25, LIPR #### [address] [place], [place] [id number] Sander Hand: Asad Draper MD Urea nitrogen [Mass/Vol] 16 mg/dL Normal 6-20 [facility] Comment on above: Performed By: #### C P, CDP, TSHX #### [address] [place] [address] Sander Hand: Gerson Barton MD #### URNMAB, FT4, GLYHGB, VD25, LIPR #### [address] [place], [place] [phone] Sander Hand: Asad Draper MD [facility] Metabolic Pane [facility] 12-19-2022 Albumin [Mass/Vol] 5.1 g/dL 3.5 - 5.2 g/dL [facility] Albumin/Globulin [Mass ratio] 1.6 {ratio} 1.0 - 2.5 [facility] ALP [Catalytic activity/Vol] 74 U/L 35 - 104 U/L [facility] ALT [Catalytic activity/Vol] 44 U/L High 5 - 33 U/L [facility] Anion gap [Moles/Vol] 14 mmol/L 9 - 17 mmol/L [facility] AST [Catalytic activity/Vol] 27 U/L NINF - 32 U/L [facility] Bilirubin [Mass/Vol] 1.7 mg/dL High 0.3 - 1 .2 mg/dL [facility] Calcium [Mass/Vol] 10.5 mg/dL High 8.6 - 10. 4 mg/dL [facility] Chloride [Moles/Vol] 94 mmol/L Low 98 - 10 7 mmol/L [facility] CO2 [Moles/Vol] 30 mmol/L 20 - 31 mmol/L [facility] Creatinine [Mass/Vol] 0.8 mg/dL 0.5 - 0.9 mg/dL [facility] GFR/1.73 sq M.predicted MDRD (S/P/Bld) [Vol rate/Area] - PINF [facility] Comment on above: These results are not [...] 137 mg/dL High 70 - 99 mg/dL [facility] Interpretation and review of laboratory results Abnormal [facility] Potassium [Moles/Vol] 4.3 mmol/L 3.7 - 5.3 mmol/L [facility] Protein [Mass/Vol] 8.2 g/dL 6.4 - 8.3 g/dL [facility] Sodium [Moles/Vol] 138 mmol/L 135 - 144 mmol/L [facility] Urea nitrogen [Mass/Vol] 16 mg/dL 6 - 20 mg/dL [facility] Urea nitrogen/Creatinine [Mass ratio] 20 mg/mg 9 - 20 [facility] Lipid Panelon 12-19-2022 Cholesterol [Mass/Vol] 115 mg/dL NINF - 200 mg/dL [facility] Comment on above: Cholesterol Guidelines: <200 Desirable 200-240 Borderline >240 Undesirable Cholesterol in HDL [Mass/Vol] 49 mg/dL 40 - PINF mg/dL [facility] Comment on above: HDL Guidelines: <40 Undesirable 40-59 Borderline >59 Desirable Cholesterol in LDL [Mass/Vol] 32 mg/dL 0 - 130 mg/dL [facility] Comment on above: LDL Guidelines: <100 Desirable 100-129 Near to/above Desirable 130-159 Borderline >159 Undesirable Direct (measured) LDL and calculated LDL are not interchangeable tests. Cholesterol.total/Ch olesterol in HDL [Mass ratio] 2.3 {ratio} NINF - 5 [facility] Interpretation and review of laboratory results Abnormal [facility] Triglyceride [Mass/Vol] 171 mg/dL High [facility] mg/dL [facility] Comment on above: Triglyceride Guidelines: <150 Desirable 150-199 Borderline 200-499 High >499 Very high Based on AHA Guidelines for fasting triglyceride, March 2012. [facility] Microalbumin, Uron 3 Albumin DL <= 20 mg/L (U) [Mass/Vol] 764 mg/L High [facility] - [facility] mg/L [facility] Albumin/Creatinine DL <= 20 mg/L (U) [Ratio] 178 High [facility] Creatinine (U) [Mass/Vol] 428.7 mg/dL High 28.0 - 217.0 mg/dL [facility] Interpretation and review of laboratory results Abnormal [facility] T4, Freeon 12-19-2022 Free T4 [Mass/Vol] 1.5 ng/dL 0.9 - 1.7 ng/dL [facility] TSH w/reflex to FT4on 2022 Thyroid Stim. Horm. 6.76 uIU/mL High 0.30-5.00 [facility] Comment on above: Performed By: #### C P, CDP, TSHX #### [facility] [address] [place] [address] Sander Hand: Gerson Barton MD #### URNMAB, FT4, GLYHGB, VD25, LIPR #### [address] [place] [address] Sander Hand: Asad Draper MD TSH with Reflexon 12-19-2022 Interpretation and review of laboratory results Abnormal [facility] T[facility]n 6.76 m[IU]/L High [facility] [employer] Vitamin D 25 Hydroxyon 12-19 25-hydroxyvitamin D3 [Mass/Vol] 59.0 ng/mL 29.9 - PINF ng/mL [facility] [employer] Comment on above: Reference Range: Vitamin D status Range Deficiency <20 ng/mL Mild Deficiency 20-30 ng/mL Sufficiency 30-100 ng/mL Toxicity >100 ng/mL [facility] [employer] XR CHEST (2 VW)Ordered By: Ventura Whitlock on 12-08-2020 No acute cardiopulmonary disease. [employer] Phone: EXAMINATION: TWO XRA Y VIEWS OF THE CHEST 12/06/2020 7:41 pm COMPARISON: July 19, 2017. HISTORY: ORDERING SYSTEM PROVIDED HISTORY: Mild intermittent asthma without complication TECHNOLOGIST PROVIDED HISTORY: ASTHMA FINDINGS: No lines or tubes. Normal cardiomediastinal silhouette. The lungs are clear without focal consolidation or pleural effusion. No suspicious pulmonary nodules. No pulmonary edema. No pneumothorax. No acute osseous abnormality. [employer] Phone: Kalpesh, [facility] Incoming Radiant Results From [place] - 12/08/2020 8:26 PM EDT EXAMINATION: TWO [...] osseous abnormality. IMPRESSION: No acute cardiopulmonary disease. [employer] Phone: [employer] Phone: Discharge Summaryon 07-22-19 18 HIM IP Note OR Review Scheduling Coordinator Normal [facility] CBCon 07-21-2017 Erythrocyte distribution width Auto Ratio (RBC) 12.9 % Normal 11.8-14.4 [facility] Comment on above: Performed By: #### T VU LIPR ####[address] [address] Erythrocytes (RBC) 0.0 per 100 WBC Normal 0.0 [facility] Comment on above: Result Comment: [address] [address] Performed By: #### T VU LIPR ####[address] [address] Erythrocytes (RBC) 4.33 10*6/uL Normal 3.95-5.11 [facility] Comment on above: Performed By: #### David WOMACK LIPR ####[address] [address] Hematocrit (HCT) 38.1 % Normal 36.3-47.1 [facility] Comment on above: Performed By: #### T VU LIPR ####[address] [address] Hemoglobin mass conc (Bld) 12.4 g/dL Normal 11.9-15.1 [facility] Comment on above: Performed By: #### T VU LIPR ####[address] [address] MCH 28.6 pg Normal 25.2-33.5 [facility] Comment on above: Performed By: #### T VU LIPR ####[address] [address] MCHC mass conc (RBC) 32.5 g/dL Normal 28.4-34.8 [facility] Comment on above: Performed By: #### T VU LIPR ####[facility] [address] [place] [address] MCV 88.0 fL Normal 82.6-102.9 [facility] Comment on above: Performed By: ###BECCA DICKSON ####Evelia Mason[address] [place] [address] Platelet mean volume (PMV) 9.7 fL Normal 8.1-13.5 [facility] Comment on above: Performed By: #### BECCA MYLES ####[facility] [address] [address] Platelets 198 10*3/uL Normal 138-453 [facility] Comment on above: Performed By: ###BECCA DICKSON ####[address] [address] WBC (Leukocytes) 4.5 10*3/uL Normal 3.5-11.3 [facility] Comment on above: Performed By: ###BECCA DICKSNO ####[facility] [address] [address] Comp Metabolic Pr/rfx MGon 0 - Potassium molar conc 3.5 mmol/L Low 3.7-5.3 [facility] Comment on above: Performed By: ###BECCA DICKSON ####[address] [address] (cont.) Normal [facility] Comment on above: Result Comment: Aver age GFR for 40-49 years old: 99 mL/min/1.73sq mChronic Kidney Disease: <60 mL/min/1.73sq mKidney failure: <15 mL/min/1.73sq meGFR calculated using average adult body mass. Additional eGFR calculator available at:http://[email or web address]/multiple_crcl_[email or web address] [address] Performed By: #### T VU LIPR ####[facility] [address] [place] [address] Alanine aminotransferase (ALT) 15 U/L Normal 5-33 [facility] Comment on above: Performed By: #### T VU LIPR ####[facility] [address] [place] [address] Albumin 3.9 g/dL Normal 3.5-5.2 [facility] Comment on above: Performed By: #### T VU LIPR ####[facility] [address] [place] [address] Albumin/Globulin Ratio 2.1 {ratio} Normal 1.0-2.5 [facility] Comment on above: Performed By: #### David WOMACK LIPR ####[facility] [address] [place] [address] Alkaline Phos 34 U/L Low 35-104 [facility] Comment on above: Performed By: #### David WOMACK LIPR ####[facility] [address] [place] [address] Anion gap 12 mmol/L Normal 9-17 [facility] Comment on above: Performed By: #### T VU LIPR ####[facility] [address] [place] [address] Aspartate aminotransferase (AST) 14 U/L Normal <32 [facility] Comment on above: Performed By: #### T VU LIPR ####[facility] [address] [place] [address] Bilirubin Ql (U) 1.02 mg/dL Normal 0.3-1.2 [facility] Comment on above: Performed By: #### T VU LIPR ####[facility] [address] [place] [address] Calcium 9.0 mg/dL Normal 8.6-10.4 [facility] Comment on above: Performed By: #### BECCA MYLES ####[facility] [address] [place] [address] Chloride 99 mmol/L Normal 98-107 [facility] Comment on above: Performed By: #### BECCA MYLES ####[facility] [address] [place] [address] CO2 24 mmol/L Normal 20-31 [facility] Comment on above: Performed By: #### BECCA MYLES ####[facility] [address] [place] [address] Creatinine 0.60 mg/dL Normal 0.50-0.90 [facility] Comment on above: Performed By: #### VIRGEN MYLESR ####[facility] [address] [place] [address] eGFR (non-black) mL/min/{1.73_m2} Normal >60 [facility] Comment on above: Performed By: #### BECCA MYLES ####[facility] [address] [place] [address] Glucose mass conc 99 mg/dL Normal 70-99 [facility] Comment on above: Performed By: #### VIRGEN MYLESR ####[facility] [address] [place] [address] Protein 5.8 g/dL Low 6.4-8.3 [facility] Comment on above: Performed By: #### BECCA MYLES ####[facility] [address] [place] [address] Sodium 135 mmol/L Normal 135-144 [facility] Comment on above: Performed By: #### BECCA MYLES ####[employer] [address] [place] [address] Urea nitrogen 21 mg/dL High 6-20 [facility] Comment on above: Performed By: #### BECCA MYLES ####E[facility] [address] [place] [address] BUN/CRE Ratio NOT REPORTED Normal 9-20 [facility] Comment on above: Performed By: #### BECCA MYLES ####E[address] [place] [address] Staging: NOT REPORTED Normal [facility] Comment on above: Performed By: #### BECCA MYLES ####[facility] [address] [place] [address] Magnesiumon 07-21-2017 Magnesium 1.9 mg/dL Normal 1.6-2.6 [facility] Comment on above: Result Comment: [facility] [address] [place] [address] Performed By: #### BECCA MYLES ####[facility] [address] [place] [address] Plan of Careon 07-21-2017 HIM IP Note OR Review Scheduling Coordinator Normal [facility] HIM IP Note OR Review Scheduling Coordinator Normal [facility] HIM IP Note OR Review Scheduling Coordinator Normal [facility] Progress Noteon 07-21-2017 HIM IP Note OR Review Scheduling Coordinator Normal [facility] HIM IP Note OR Review Scheduling Coordinator Normal [facility] CARDIAC STRESS TESTon 2017 CARDIAC STRESS TEST [address] [id number] CARDIAC STRESS TESTPATIENT NAME: AISHWARYA DUNN : 1965MED REC NO: [id number] ROOM: [address] [place] [address] NO: [id number] ADMIT DATE: 07/20/2017PROVIDER: Ang CraigARDIYASSINE TREADMILL STRESS STUDYDATE OF STUDY: 07/20/2017ORDERING PROVIDER: [facility] CARE PROVIDER: Jori RineINDICATION: Chest discomfort.CONSENT: The [...] of Nuclear MedicineANG SHELLMID: 07/20/2017 15:47:34 /PGAYTANJob#: [id number] Doc#: UnknownPositive result faxed to the Unit Normal [facility] Consulton 07-20-2017 HIM IP Note OR Review Scheduling Coordinator Normal [facility] History and Physicalon 07-20 HIM IP Note OR Review Scheduling Coordinator Normal [facility] K (Potassium)on 07-20-2017 Potassium molar conc 3.9 mmol/L Normal 3.7-5.3 [facility] Comment on above: Result Comment: [facility] [employer] [facility] [place], [place] [id number] [phone] Performed By: #### BECCA MYLES ####[facility] AndersonRocketripFmgjveqcfdyk38[address] [place] [address] Lipid Profileon 07-20-2017 Cholesterol 162 mg/dL Normal <200 [facility] Comment on above: Result Comment: Chol esterol Guidelines: <200 Desirable 200-240 Borderline >240 Undesirable Performed By: #### BECCA MYLES ####[facility] AndersonRocketripQbrlxtlkleuq[address] [place] [address] Cholesterol to HDL Ratio 3.4 {ratio} Normal <5 [facility] Comment on above: Performed By: #### BECCA MYLES ####Evelia [address] [place] [address] HDL Cholesterol 48 mg/dL Normal >40 [facility] Comment on above: Result Comment: HDL Guidelines: <40 Undesirable 40-59 Borderline >59 Desirable Performed By: #### T BECCA WOMACK ####[address] [address] LDL Cholesterol 84 mg/dL Normal 0-130 [facility] Comment on above: Result Comment: LDL Guidelines: <100 Desirable 100-129 Near to/above Desirable 130-159 Borderline >159 UndesirableDirect (measured) LDL and calculated LDL are not interchangeable tests. Performed By: #### T BECCA WOMACK ####[facility] [address] [place] [address] Triglyceride 151 mg/dL High <150 [facility] Comment on above: Result Comment: Trig lyceride Guidelines: <150 Desirable 150- 199 Borderline 200-499 High >499 Very high Based on AHA Guidelines for fasting triglyceride, March 2012.[employer] [address] [place] [address] Performed By: #### T BECCA WOMACK ####[facility] [address] [place] [address] Cholesterol in VLDL mass conc NOT REPORTED Normal 1-30 [facility] Comment on above: Performed By: #### T BECCA WOMACK ####[facility] [address] [place] [address] Magnesiumon 07-20-2017 Magnesium 1.8 mg/dL Normal 1.6-2.6 [facility] Comment on above: Result Comment: [employer] [address] [place] [address] Performed By: #### T BECCA WOMACK ####[facility] AndersonRocketripKbzaqcezpyps59[address] [place] [address] NM MYOCARDIAL SPECT REST EXE RCISE OR [...] Revascularization in Patients With Stable Ischemic Heart [facility] Volume 69, Issue October 2016High risk (>3% annual or NV)1. Severe resting LV dysfunction (LVEF >35%) not [...] e risk (1% to 3% annual or NV)1. Mild/moderate resting LV dysfunction (LVEF 35% to [...] coronarybed.Low Risk (Less than 1% annual or NV)1. Normal or small myocardial perfusion defect at rest or with stressencumbering less than 5% of the myocardium.Interpreted by:JENNI Montañoigned by:Giovanny Lan MD07/20/17inal result Normal [facility] Plan of Careon 07-20-2017 HIM IP Note OR Review Scheduling Coordinator Normal [facility] HIM IP Note OR Review Scheduling Coordinator Normal [facility] Procedureon 07-20-2017 HIM IP Note OR Review Scheduling Coordinator Normal [facility] Progress Noteon 07-20-2017 HIM IP Note OR Review Scheduling Coordinator Normal [facility] HIM IP Note OR Review Scheduling Coordinator Normal [facility] TSH w/reflex to FT4on 2017 Thyroid stimulating hormone (TSH) 0.22 m[IU]/L Low 0.30-5.00 [facility] Comment on above: Result Comment: [facility] [employer] [address] [place] [address] Performed By: #### T SHX, FT4 ####[address] [address] Thyroxine, Freeon 07-20-2017 Thyroxine, Free 1.52 ng/dL Normal 0.93-1.70 [facility] Comment on above: Result Comment: [facility] [employer] [address] [place] [address] Performed By: #### T SHX, FT4 ####[address] [address] Troponinon 07-20-2017 Troponin I.cardiac mass conc Normal [facility] Comment on above: Result Comment: Refe rence Range: <0.03 Within reference range. 0.03-0.09 Possible myocardial damage.Repeat at appropriate intervals to rule out chronic elevation. >= 0.10 Indicative of myocardial damage.Patients with high levels of Biotin oral intake (i.e >5mg/day) may have falsely decreased Troponin T levels. Samples collected within 8 hours of biotin intake may require additional information for diagnosis.[facility] [employer] [address] [place] [address] Performed By: #### BECCA MYLES ####[address] [address] Troponin T.cardiac mass conc ug/L Normal <0.03 [facility] Comment on above: Result Comment: Trop onin T results cannot be compared to Troponin-I results. Performed By: #### BECCA MYLES ####[address] [address] Encounters Encounter Date Encounter Type Care Provider Facility Start: 12-18-2023 End: 12-18-2023 ambulatory POLO DIAZ Not Available Start: 11-19-2023 End: 11-19-2023 ambulatory JEANINE WHITLOCK Not Available Start: 10-11-2023 End: 10-11-2023 ambulatory POLO DIAZ Not Available Start: 07-15-2023 End: 07-18-2023 ambulatory JEANINE WHITLOCK [facility] Start: 07-15-2023 End: 07-17-2023 Subsequent hospital visit by physician román [facility] Dexa Scan Comment on above: Age-related osteopor osis without current pathological fracture Start: 05-24-2023 End: 05-24-2023 ambulatory JEANINE WHITLOCK Not Available Start: 05-10-2023 End: 05-11-2023 ambulatory TYLER RAMEY [facility] Start: 12-27-2022 End: 12-28-2022 ambulatory JEANINE WHITLOCK [facility] Start: 12-19-2022 End: 12-20-2022 ambulatory POLO DIAZ [facility] Start: 12-19-2022 End: 12-19-2022 Subsequent hospital visit by physician Jeanine Whitlock Work Phone: [facility] Laboratory Start: 12-06-2020 End: 12-08-2020 Subsequent hospital visit by physician Maddie Sewell Dr Room 2 [facility] Radiology Comment on above: Mild intermittent as thma without complication Start: 07-20-2017 End: 07-22-2017 Evaluation and management of inpatient JEANINE WHITLOCK [facility] Procedures Date Procedure Procedure Detail Performing Clinician Start: 07-15-2023 Dxa bone density thomas dy 1/> sites axial skel Tyler Ramey MD Work Phone: Start: 12-19-2022 Comprehensive metabo lic panel Polo Escobedo ELECTROTYPE MOLDER - CRANE MAN Work Phone: Start: 12-19-2022 Lipid panel Polo ocampo ELECTROTYPE MOLDER - [employer] Work Phone: Start: 12-19-2022 Urine albumin quantitative Polo Escobedo ELECTROTYPE MOLDER - [employer] MAN Work Phone: Start: 12-06-2020 Radiologic exam ches t 2 views Jeanine Whitlock Work Phone: Start: 01-23-2018 Colonoscopy Ejanine Rine Work Phone: Start: 07-22-2017 DIRECTOR DIABETES REPORT JEANINE R INE Start: 07-22-2017 DISCHARGE [...] Screening for malign ant neoplasm of [facility] Start: 02-13-2027 DTaP/Tdap/Td vaccine (3 - Td or Tdap) DTaP/Tdap/Td vaccine (3 - Td or Tdap) [facility] Start: 05-24-2025 Screening for malign ant neoplasm of breast Breast cancer screen [facility] Start: 12-20-2023 GFR test (Diabetes, CKD 3-4, OR last GFR 15-59) GFR test (Diabetes, CKD 3-4, OR last GFR 15-59) [facility] Start: 12-20-2023 Hemoglobin A1c measurement A1C test (Diabetic or Prediabetic) [facility] Start: 12-20-2023 Lipid panel Lipids [facility] [employer] Start: 12-20-2023 Urine screening for protein Diabetic Alb to Cr ratio (uACR) test [facility] Start: 01-01-2023 Influenza vaccination Flu vaccine (# 1) [facility] Start: 02-01-2021 Influenza vaccination Flu vaccine (# 1) [employer] Phone: Start: 12-02-2020 COVID-19 Vaccine (3 - Booster for Moderna series) COVID-19 Vaccine (3 - Booster for Moderna series) [facility] Start: 01-18-2020 Screening for malign ant neoplasm of breast Breast cancer screen [facility] Start: 07-23-2018 Creatinine measurement [facility] [employer] Phone: Start: 07-23-2018 GFR test (Diabetes, CKD 3-4, OR last GFR 15-59) GFR test (Diabetes, CKD 3-4, OR last GFR 15-59) [facility] [employer] Start: 07-23-2018 Potassium monitoring Potassium monit brockng [employer] Phone: Start: 07-20-2018 Lipid panel [facility] [employer] Start: 07-01-2018 Pneumococcal 0-64 ye ars Vaccine (2 - PPSV23 if available, else PCV20) Pneumococcal 0-64 years Vaccine (2 - PPSV23 if available, else PCV20) [facility] Start: 07-01-2018 Pneumococcal 0-64 ye ars Vaccine (2 - PPSV23 or PCV20) Pneumococcal 0-64 years Vaccine (2 - PPSV23 or PCV20) [facility] Start: 2017 Shingles Vaccine (1 of 2) Shingles V accine (1 of 2) [facility] Start: 2012 Screening for malign ant neoplasm of colon [facility] [employer] Start: 06-15-2012 Hemoglobin A1c measurement A1C test (Diabetic or Prediabetic) [facility] Start: 1997 Screening for malign ant neoplasm of cervix [facility] Start: 1988 Screening for malign ant neoplasm of cervix [facility] Start: 1986 Hepatitis B vaccine (1 of 3 - Risk 3-dose series) Hepatitis B vaccine (1 of 3 - Risk 3-dose series) [facility] Start: 1985 Diabetic microalbumi gabo test Diabetic microalbuminuria test [employer] Phone: Start: 1985 Glaucoma screening Diabetic retinal exam [facility] Start: 1985 Hepatitis C screening Hepatitis C sc reen [facility] [employer] Start: 1985 Urine screening for protein Diabetic Alb to Cr ratio (uACR) test [facility] Start: 1982 HIV screening HIV screen [facility] [employer] Start: 1979 Depression Monitoring Depression Mon itoring [employer] Start: 1977 Diabetic foot examination Diabetic f oot exam [facility] [employer] Start: 1977 Diabetic retinal exam Diabetic retin al exam [employer] Phone: Start: 1973 Pneumococcal 0-64 ye ars Vaccine (1 of 2 - PPSV23) Pneumococcal 0-64 years Vaccine (1 of 2 - PPSV23) [employer] Phone: Start: 01-23-1968 COVID-19 Vaccine (#1) COVID-19 Vacci ne (#1) [employer] Start: 1967 Hepatitis B vaccine (1 of 3 - 3-dose series) Hepatitis B vaccine (1 of 3 - 3-dose series) [employer] Start: 1967 Hepatitis C screening Hepatitis C sc reen [employer] Phone: End: 12-19-2022 Hemoglobin A1c/Hemoglobin.total in Blood [employer] Phone: Comment on above: Once for 1 Occurrenc es starting 12/19/2022 until 12/19/2022 Payers Date Payer Category Payer Private Health Insurance [id number] 2019 Unknown [id number] 2014 Unknown [id number] 1965 Unknown [id number] [id number] 1967 Unknown [id number] 2.16.8 [id number] 1967 Unknown [id number] 2.16.8 [id number] 1967 Unknown [id number] 2.16.8 [id number] 1967 Unknown [id number] 2.16.84 [id number] 1967 Unknown [id number] 2.16.84 [id number] 1967 Unknown [id number] 2.16.84 [id number] 1967 Unknown [id number] 1967 Unknown [id number] Social History Date Type Detail Facility Start: 07-19-2017 End: 01-23-2018 Tobacco smoking status NHIS Never smoker [facility] [employer] Start: 07-19-2017 End: 01-23-2018 Tobacco use and exposure Never used [employer] Start: 01-23-2018 Alcohol intake Current non-dr financial services consultant of alcohol (finding) [employer] Phone: Start: 1965 Sex Assigned At Not on file [employer] Phone: Start: 01-25-2019 History of Social function [facility] [employer] Start: 01-25-2019 Tobacco use [facility] Evaluation note Note Date & Type Note Facility Evaluation note Diagnosis Mild intermittent asthma without complication Unspecified asthma documented in this encounter [employer] Phone: Evaluation note Note Date & Type Note Facility Evaluation note Diagnosis Age-related osteoporosis without current pathological fracture Senile osteoporosis documented in this encounter [facility] [employer] Summary Purpose Family History No Family History Records FoundNo Family History Records FoundNo Family History Records FoundNo Family History Records Found Advance Directives No Advanced Directives Records FoundDocuments on File Type Date Recorded Patient Mines Inspector Expl anation ACP-Advance Directive 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 DATE CREATED AUTHOR AUTHOR'S ORGANIZ ATION 07/18/2023 [facility] DATE CREATED AUTHOR AUTHOR'S ORGANIZ ATION 12/22/2023 [facility] dical Specialists EPIC Care Teams (unrecognized sec tion and content) Superintendent Compressor Stations Relationship Specialty Start Date End Date Jaenine Whitlock Liban [address] [place], [place] [id number] PCP - General 04/16/16 Superintendent Compressor Stations Relationship Specialty Start Date End Date Jeanine Whitlock [address] [place] [address] PCP - General 04/16/16 Reason for Visit (unrecogniz ed section and content) Specialty Diagnoses / Procedures Referred By Contac t Referred To Contact Radiology Diagnoses Age-related osteoporosis without current pathological fracture Procedures DEXA BONE DENSITY 2 SITES DEXA BONE DENSITY AXIAL SKELETON Tyler Ramey MD [address] [place] [address] Referral ID Status Reason Start Date Expiration Date V isits Requested Visits Authorized [id number] Pending Review 05/24/2023 05/23/2024 1 1 FOR [...] BE BASED ON THE PRIMARY CLINICAL RECORDS. [facility] [facility]. provides no warranty or guarantee of the accuracy or completeness of information in this document.
[2024-01-16 07:32] LABS: Basophils Absolute Auto 0.1 10^3/uL (0.0-0.1); Basophils Percent Auto 0.7 % (0.2-2.0); Eosinophils Absolute Auto 0.1 10^3/uL (0.0-0.7); Eosinophils Percent Auto 1.7 % (0.9-7.0); Hematocrit 39.1 % (36.0-48.0); Hemoglobin 13.1 g/dL (12.0-16.0); Immature Granulocytes Abs Auto 0.02 10^3/uL (0.00-0.03); Immature Granulocytes Pct Auto 0.3 % (0.0-0.5); Lymphocytes Absolute Auto 1.6 10^3/uL (1.2-3.8); Mean Corpuscular HGB Conc 33.5 g/dL (29.9-35.2); Mean Corpuscular Hemoglobin 29.5 pg (26.7-34.0); Mean Corpuscular Volume 88.1 fL (81.0-99.0); Mean Platelet Volume 9.7 fL (9.5-13.5); Monocytes Absolute Auto 0.5 10^3/uL (0.3-0.8); Monocytes Percent Auto 7.6 % (1.7-12.0); Neutrophils Absolute Auto 4.6 10^3/uL (1.4-6.5); Neutrophils Percent Auto 66.7 % (43.0-75.0); Platelet Count 262 10^3/uL (150-450); Red Blood Count 4.44 10^6/uL (4.20-5.40); Red Cell Distribution Width 14.3 % (11.0-15.0); White Blood Count 6.9 10^3/uL (4.0-11.0)
[2024-01-16 07:53] LABS: Glucometer 152 mg/dL (74-106)
[2024-01-16] MEDS: LACTATED RINGER'S SOLUTION 1,000 ML 50 ML IV ×3 (08:04→11:19)
[2024-01-16] MEDS: CEFAZOLIN SODIUM 3,000 MG in 0.9 % SODIUM CHLORIDE 100 ML 200 MG IV (08:47)
--- NOTE | 2024-01-16 09:01 | XR_ITS ---
The [address] [address] Patient Name: AISHWARYA DUNN MRN: [id number] date: 1965 Sex: F Assigned Patient Location: [facility] Current Patient Location: [facility] Accession/Order Number: [id number] Exam Date: 01/16/2024 11:10 Report Date: 01/16/2024 11:56 At the request of: ANA SCHUSTER Procedure: XR foot LT min 3V PROCEDURE: XR foot LT min 3V HISTORY: hallux valgus COMPARISON: XR foot bilateral 12/10/2023 FINDINGS: BONES:Mechanical fusion of the first metatarsophalangeal joint via dorsal plate and screws. Large calcaneal plantar spur. SOFT TISSUES:Dorsal soft tissue swelling. Images were obtained to cast material. EFFUSION:None visible. OTHER: Negative. XR/XR foot LT min 3V IMPRESSION: 1. Postoperative mechanical fusion of the first metatarsophalangeal joint. Electronically authenticated by: JACKSON BAUM Date: 01/16/2024 11:56
--- NOTE | 2024-01-16 09:06 | PM.ORONB ---
Brief Operative Note Date of procedure: 01/16/24 Pre-op diagnosis general: Left hallux valgus, hallux rigidus Post-op diagnosis: same as pre-op Procedure: Procedure performed: Left first metatarsal phalangeal joint fusion Indications for procedure: Patient is a 58-year-old female whose had bilateral great toe pain for over a year with her left being worse than her right. Despite nonsurgical treatment which has included but not limited to OTC pain medicine, shoe and activity modification she has had difficulty finding good fitting comfortable shoes. Her pain has affected exercise and recreation. She was referred to me by her primary care physician for surgical consultation and on examination she had pain over the medial eminence of the first metatarsal head worse on the left and a nonreducible valgus deformity of the great toe. Range of motion of the left great toe was less than 10 degrees. X-rays also confirmed malposition of the great toe and increased intermetatarsal angle with arthritic changes to the first metatarsal phalangeal joint. I reviewed the potential risks and benefits of surgical intervention and the patient wish to proceed with the above procedure. Intraoperative findings: Degenerative changes noted across the first metatarsal phalangeal joint. Great toe was in rigid valgus. Periarticular osteophytes and cartilage erosion of approximately 30% of the first metatarsal head. Lesser toes are rectus. Procedure performed: Patient was identified in pre op and consent was reviewed. Correct side and site were identified and marked. Pre-op antibiotics were started. Patient was brought to OR suite and place on table in a supine position. General anesthesia was administered. Thigh tourniquet applied. Operative extremity was prepped and draped in usual sterile fashion. Formal time-out was performed and the foot/ankle were exsanguinated and tourniquet inflated. Incision created over dorsal aspect of the 1st MPJ. Bleeders coagulated. EHL protected throughout the procedure. Capsulotomy performed and McGlammry elevator inserted into 1st MPJ. Guide Pin place in 1st metatarsal head. Conical reamers used on 1st metatarsal head to remove cartilage and subchondral bone. Guide pin removed. Conical reamers used on proximal phalanx in a similar manner. 2.0 mm drill used to on each side of the joint. The site was irrigated. 1 cc of bone allograft was packed into fusion site. A 3.[address] over the fusion site and temporarily fixed. Then packing machine pilot can router holes were drilled for locking 3.5 mm screws which were measured and placed according to the manufactor's standard directions. Again position was checked under fluoroscopy as well as on the table. Temporary fixation was removed and additional screws were placed. A stab incision over the guide pin at the medial aspect of the hallux was used followed by blunt dissection with a hemostat. Proper screw length was determined and the guide pin was advanced into the second metatarsal to prevent loosing pin placement during drilling. A cannulated drill was then utilized. A 3.5 mm cannulated headed screw was inserted. Again position was checked on the table and under fluoroscopy. The surgical site was irrigated with copious amounts of sterile saline. Absorbable deep sutures were used to close fascia. The tourniquet was dropped and a prompt hyperemic response was noted. A subcuticular stitch was used to close skin. Steri-strips were then applied. A dry sterile dressing consisting of Xeroform on the incisions followed by 4 x 4 gauze, ABDs, and Kerlix were applied. Multiple layers of cast padding were then applied to ensure all bony prominences were well-padded. A plaster posterior splint was then applied which was held in place by Osvaldo wraps. Capillary refill time to all digits was evaluated and had appropriate response. Postoperative plan: Admit to medical surgical unit for observation -estimated length of stay 1 night Nonweightbearing left foot -physical therapy consulted for gait training Multimodal pain medicine, DVT prophylaxis and perioperative antibiotics were ordered Patient should follow-up in my office 1 week from discharge Implants: [employer] Anesthesia: General-LMA Surgeon: Josiah Sanon Estimated blood loss (mL): 10 Pathology: none sent Condition: stable Disposition: PACU
[2024-01-16] MEDS: LIDOCAINE HCL 1% 100 MG/10 ML MDV 20 ML INJ (09:25)
[2024-01-16] MEDS: BUPIVACAINE HCL 0.5% PF 50 MG/10 ML VIAL 20 ML INJ (10:05)
[2024-01-16 10:54] LABS: Glucometer 172 mg/dL (74-106)
--- NOTE | 2024-01-16 11:13 | PC.NURSE ---
Had alerted Dr Johns to patients pressure going lower. Opened up fluids and reverse Trendelenburg positioning placed. Dr. Johns did give a small amount Phenylepherine at this time. Patient is asymptomatic with hypotension at this time.
--- NOTE | 2024-01-16 11:44 | PC.NURSE ---
Continue to keep Dr Johns updated on patients blood pressure. Patient continues asymptomatic. Dr. Johns requests to speak to Dr. Sanchez before the patient is taken out to the floor. Will keep patient in Phase One recovery until notified by Dr Johns to move patient to the floor.
[2024-01-16] MEDS: ACETAMINOPHEN 500 MG TABLET 1000 MG PO ×2 (14:54→21:05)
[2024-01-16] MEDS: 0.9 % SODIUM CHLORIDE 1,000 ML 100 ML IV (14:55)
--- NOTE | 2024-01-16 15:21 | SWNOTE1 ---
SW attempted to see pt, physical therapy in room working with pt. SW to stop back later today or tomorrow morning.
[2024-01-16 16:19] LABS: Glucometer 298 mg/dL (74-106)
[2024-01-16] MEDS: METFORMIN HCL 500 MG TAB.ER.24H 1000 MG PO (17:11)
[2024-01-16] MEDS: CEFAZOLIN SODIUM/DEXTROSE,ISO 1 GM/50 ML PREMIX IV (17:11)
--- NOTE | 2024-01-16 18:08 | P.PN_ITS ---
Progress Note: Subjective Subjective Interval history: Patient was here for podiatric surgical intervention. See podiatry notes from the surgery. Patient admitted postoperatively secondary to severe hypotension. She did require multiple fluid boluses in the PACU area. They taken her blood pressure up into the 90s consistently. When I saw patient up in the medical surgical floor, she was resting comfortably in bed, eating her dinner, no complaints, denies shortness of breath or chest pain or lightheadedness. Exam Constitutional Vital Signs, click to edit/add: Last Vital Signs Temp 97.8 F 01/16/24 16:23 Pulse 87 01/16/24 16:23 Resp 18 01/16/24 16:23 BP 104/61 01/16/24 16:23 Pulse Ox 95 01/16/24 16:49 O2 Del Method Room Air 01/16/24 16:49 O2 Flow Rate 2 01/16/24 12:34 Documenting provider has reviewed patient's vital signs: yes Common normals: no apparent distress Chest Common normals: inspection of chest normal and palpation of chest normal Respiratory Common normals: normal respiratory effort and no retractions Cardio Common normals: regular rate and regular rhythm GI Common normals: Normal to inspection, nondistended, normoactive bowel sounds present, soft to palpation and non-tender Extremity Common normals: abnormal to inspection (Dressing in place left leg) Progress Note: Objective Labs Labs: Short CBC 01/16/24 Range/Units 07:27 WBC 6.9 (4.0-11.0) 10^3/uL Hgb 13.1 (12.0-16.0) g/dL Hct 39.1 (36.0-48.0) % Plt Count 262 (150-450) 10^3/uL Progress Note: A&P Assessment and Plan (1) Arthritis: (2) Hypertension: (3) Asthma: (4) Diabetes: Plan Admission findings: Significant hypotension likely combination of her anesthetic and ARB. Better now. Will maintain fluids, try not to fluid overload her. Hold blood pressure medications for tonight. Likely restart in a.m. NIDDM-insulin sliding scale Insomnia-continue with home medications Asthma-continue with home medications Hypothyroidism continue with home medications Podiatric evaluation-see progress notes from podiatry Admission status: Patient observed overnight secondary to significant hypotension postoperatively. So far has been stable. If remains will be discharged home tomorrow. Medically necessary treatment likely to only span 1 midnight. Observation status.
[2024-01-16 19:57] LABS: Glucometer 229 mg/dL (74-106)
[2024-01-16] MEDS: ATORVASTATIN CALCIUM 10 MG TABLET 5 MG PO (21:05)
[2024-01-16] MEDS: TRAZODONE HCL 50 MG TABLET 75 MG PO (21:05)
[2024-01-16] MEDS: PREGABALIN 75 MG CAPSULE PO (21:05)
[2024-01-17] MEDS: CEFAZOLIN SODIUM/DEXTROSE,ISO 1 GM/50 ML PREMIX IV ×2 (01:03→08:58)
[2024-01-17] MEDS: 0.9 % SODIUM CHLORIDE 1,000 ML 100 ML IV (03:04)
[2024-01-17] MEDS: ACETAMINOPHEN 500 MG TABLET 1000 MG PO ×2 (03:04→08:59)
[2024-01-17 03:08] VITALS: BP 105/68; PULSE 78; TEMP 36.5; O2SAT 91
[2024-01-17 05:00] VITALS: O2SAT 92
[2024-01-17 05:44] LABS: Basophils Percent Auto 0.2 % (0.2-2.0); Eosinophils Percent Auto 0.3 % (0.9-7.0); Hematocrit 33.1 % (36.0-48.0); Hemoglobin 10.9 g/dL (12.0-16.0); Immature Granulocytes Abs Auto 0.05 10^3/uL (0.00-0.03); Immature Granulocytes Pct Auto 0.5 % (0.0-0.5); Lymphocytes Absolute Auto 1.3 10^3/uL (1.2-3.8); Lymphocytes Percent Auto 12.6 % (20.5-60.0); Mean Corpuscular HGB Conc 32.9 g/dL (29.9-35.2); Mean Corpuscular Volume 91.2 fL (81.0-99.0); Mean Platelet Volume 10.1 fL (9.5-13.5); Monocytes Absolute Auto 0.7 10^3/uL (0.3-0.8); Monocytes Percent Auto 6.7 % (1.7-12.0); Neutrophils Absolute Auto 8.2 10^3/uL (1.4-6.5); Neutrophils Percent Auto 79.7 % (43.0-75.0); Platelet Count 221 10^3/uL (150-450); Red Blood Count 3.63 10^6/uL (4.20-5.40); Red Cell Distribution Width 14.6 % (11.0-15.0); White Blood Count 10.3 10^3/uL (4.0-11.0)
[2024-01-17 05:51] LABS: BUN Creatinine Ratio 23.2; Calcium 8.3 mg/dL (8.5-10.1); Carbon Dioxide 30.4 mmol/L (21.0-32.0); Chloride 101 mmol/L (98-107); Estimated GFR (African America >60 (>=60); Estimated GFR (Non-African Ame >60 (>=60); Glucose 149 mg/dL (74-106); Potassium 3.4 mmol/L (3.5-5.1); Sodium 140 mmol/L (136-145)
[2024-01-17] MEDS: OXYCODONE HCL 5 MG TABLET PO ×2 (06:11→11:31)
[2024-01-17] MEDS: LEVOTHYROXINE SODIUM 100 MCG TABLET PO (06:11)
--- NOTE | 2024-01-17 08:28 | P.DS_ITS ---
DS: Providers Provider Primary care physician: Non-Staff Physician, Consults: 01/16/24 09:01 Physical Therapy Eval and Treat Routine Reason for consultation: gait training - NWB left foot Has provider been notified: No 01/16/24 14:03 Occupational Therapy Eval and Treat Routine Reason for consultation: Only if needed for Rehab Has provider been notified: No Physical Therapy Eval and Treat Routine Reason for consultation: Eval and Treat Has provider been notified: No DS: Diagnosis Discharge Diagnosis (1) Arthritis: (2) Hypertension: (3) Asthma: (4) Diabetes: Plan Admission findings: Significant hypotension likely combination of her anesthetic and ARB. Better now. Will maintain fluids, try not to fluid overload her. Hold blood pressure medications for tonight. Likely restart in a.m. NIDDM-insulin sliding scale Insomnia-continue with home medications Asthma-continue with home medications Hypothyroidism continue with home medications Podiatric evaluation-see progress notes from podiatry Admission status: Patient observed overnight secondary to significant hypotension postoperatively. So far has been stable. If remains will be discharged home tomorrow. Medically necessary treatment likely to only span 1 midnight. Observation status. DS: Summary Hospital Course Hospital Course: Patient was admitted for podiatric procedure, as an outpatient, postoperatively had significant hypotension into the 70s and 80s, pressors needed to be given. She was also given multiple fluid boluses. Her blood pressure stabilized in the 90s she was transferred to the medical surgical unit. Holding her blood pressure medications overnight her blood pressure has slowly increased. Her systolics are in the 110s this morning. She feels back to her normal self. Other than the pain in her foot. At this point she medically stable for discharge unless podiatry wants any further treatments. Medications see list. See PCP at discharge. Status at Discharge Overall status at discharge: patient is back to baseline Time Spent with Patient Time attestation: Total time spent providing and/or coordinating discharge services: Time spent: greater than 30 minutes Exam Constitutional Vital Signs, click to edit/add: Last Vital Signs Temp 97.7 F 01/17/24 03:08 Pulse 78 01/17/24 03:08 Resp 20 01/17/24 03:08 BP 105/68 01/17/24 03:08 Pulse Ox 92 L 01/17/24 05:00 O2 Del Method Room Air 01/17/24 05:00 O2 Flow Rate 2 01/16/24 12:34 Documenting provider has reviewed patient's vital signs: yes Common normals: no apparent distress Chest Common normals: inspection of chest normal and palpation of chest normal Respiratory Common normals: normal respiratory effort and no retractions Cardio Common normals: regular rate and regular rhythm GI Common normals: Normal to inspection, nondistended, normoactive bowel sounds present, soft to palpation and non-tender Extremity Common normals: abnormal to inspection (Dressing in place left leg) DS: Data Data Completed and Pending Labs on day of discharge: Labs from last 24 hours 01/17/24 01/16/24 01/16/24 05:10 19:55 16:18 WBC 10.3 RBC 3.63 L Hgb 10.9 L Hct 33.1 L MCV 91.2 MCH 30.0 MCHC 32.9 RDW 14.6 Plt Count 221 MPV 10.1 Neut % (Auto) 79.7 H Lymph % (Auto) 12.[address] % (Auto) 6.7 Eos % (Auto) 0.3 L Baso % (Auto) 0.2 Neut # (Auto) 8.2 H Lymph # (Auto) 1.3 [facility] # (Auto) 0.7 Eos # (Auto) 0.0 Baso # (Auto) 0.0 Abs Immat Gran (auto) 0.05 H Imm/Tot Granulo (auto) 0.5 Sodium 140 Potassium 3.4 L Chloride 101 Carbon Dioxide 30.4 Anion Gap 12.0 BUN 19.0 H Creatinine 0.82 Est GFR ( Amer) >60 Est GFR (Non-Af Amer) >60 BUN/Creatinine Ratio 23.2 Glucose 149 H Calcium 8.3 L POC Glucose 229 H 298 H 01/16/24 10:52 WBC RBC Hgb Hct MCV MCH MCHC RDW Plt Count MPV Neut % (Auto) Lymph % (Auto) [facility] % (Auto) Eos % (Auto) Baso % (Auto) Neut # (Auto) Lymph # (Auto) [facility] # (Auto) Eos # (Auto) Baso # (Auto) Abs Immat Gran (auto) Imm/Tot Granulo (auto) Sodium Potassium Chloride Carbon Dioxide Anion Gap BUN Creatinine Est GFR ( Amer) Est GFR (Non-Af Amer) BUN/Creatinine Ratio Glucose Calcium POC Glucose 172 H Discharge Plan Discharge Condition: Good Discharge Medications: Continued atorvastatin 10 mg tablet 0.5 mg PO DAILY Jardiance 10 mg tablet 10 mg PO DAILY multivitamin [Daily Multi-Vitamin] Tablet 1 tab PO DAILY metformin 500 mg tablet extended release 24 hr 1,000 mg PO BID meloxicam 15 mg tablet 15 mg PO DAILY chlorthalidone 50 mg tablet 50 mg PO DAILY bisoprolol fumarate 10 mg tablet 10 mg PO DAILY montelukast 10 mg tablet 10 mg PO DAILY aspirin [Adult Aspirin Regimen] 81 mg tablet,delayed release (DR/EC) 81 mg PO DAILY aripiprazole 5 mg tablet 5 mg PO DAILY Complex B-100 Tablet Extended Release 1 tab PO DAILY alprazolam 0.25 mg tablet 0.25 mg PO TID PRN (Reason: anxiety) ascorbic acid (vitamin C) 1,000 mg capsule 1 g PO DAILY calcium carbonate 500 mg calcium (1,250 mg) tablet,chewable 500 mg PO DAILY duloxetine 60 mg capsule,delayed release(DR/EC) 120 mg PO DAILY trazodone 150 mg tablet 75 mg PO QPM zinc 50 mg tablet 50 mg PO DAILY levothyroxine [Synthroid] 100 mcg tablet 100 mcg PO DAILY Discontinued losartan 100 mg tablet 100 mg PO DAILY amlodipine 5 mg tablet 5 mg PO DAILY Print Language: Upper Sorbian
--- NOTE | 2024-01-17 08:35 | CM.NOTE ---
Rounds made with Dr. Sanchez, pt is OBS status. Pt will discharge to home today, no discharge needs identified. Dr. Sanchez discussed importance of f/u appt to discuss BP medications. Pt states she has lost a significant amount of weight and feels it is too much for her. Discussed with pt about taking BP at home twice a day and taking information to f/u appt to better adjust medications.
--- OUTSIDE RECORDS SUMMARY | 2024-01-17 08:42 | XMS_ITS | CCD ---
Author Organization [facility] ion Partnership [facility] Care Team Providers Care Linux Admin Name Role Phone RINE, JEANINE L Unavailable Unavailable KABOUR, AMEER Unavailable Unavailable AHMAD, SHOWKAT Unavailable Unavailable KAMIREDDY, ADIREDDY Unavailable Unavailable Rine, Jeanine L Primary Care Provider Joselinee, Jeanine L Primary Care Provider [phone] POLO DIAZ Referring Unavailable RINE, JEANINE L [...] Propensity to adverse reactions to drug 07-14-2012 [employer] Work Phone: Unclassified (1 source) Shellfish-Derive d Products Propensity to adverse reactions to drug 07-21-2012 [employer] (2 sources) Seafood Propensity to adverse reactions to drug 07-21-2012 [employer] (2 sources) Iodides Propensity to adverse reactions to drug 07-14-2012 [employer] Work Phone: Medications Current Medications Medication Drug [...] Bernardo Squires MD 07/17/23 Final result Normal [facility] DXA Bone [Mass/Area] Bone de nsityon 07-17-2023 Some evidence of elevated bone mineral density [facility] DEXA BONE DENSITY 2 [...] density 1.419 g/sq cm. T score 3.3. [facility] RIS CONSOLIDATED Bernardo Squires MD - [...] Some evidence of elevated bone mineral density [facility] [employer] DXA Bone [Mass/Area] Bone de nsityOrdered By: Bernardo Squires on 07-17-2023 [facility] [employer] Work Phone: DXA Bone [Mass/Area] Bone de nsityon 07-15-2023 Radiology Study observation (narrative) [facility] [employer] MAMMOGRAM SCREENING TOMOS YNTHESIS BILATERALon 05-24-2023 [...] IS VERY IMPORTANT TO YOUR HEALTH. THE [place] [employer] GUIDELINES RECOMMEND THAT WOMEN 40 [...] Not Available Comment on above: Order Comment: [facility] CBC with Diffon 12-27-2022 Abs. Basophil 0.06 k/uL Normal 0.00-0.20 [facility] Comment on above: Performed By: #### C DP #### [facility] [address] [place], [place] [address] Show Card Letterer: Gerson Barton MD Abs.Imm.Granulocyte 0.08 k/uL Normal 0.00-0.30 [facility] Comment on above: Performed By: #### C DP #### [address] [place], [facility] Show Card Letterer: Gerson Barton MD Abs.Neutrophil (Seg) 6.19 k/uL Normal 1.50-8.10 [facility] Comment on above: Performed By: #### C DP #### [address] [place] [address] Show Card Letterer: Gerson Barton MD Basophils/100 WBC (Bld) 1 % Normal 0-2 [facility] Comment on above: Performed By: #### C DP #### [address] [place] [address] Show Card Letterer: Gerson Barton MD Eosinophils (Bld) [#/Vol] 0.12 10*3/uL Normal 0.00-0.44 [facility] Comment on above: Performed By: #### C DP #### [address] [place], [facility] Show Card Letterer: Gerson Barton MD Eosinophils/100 WBC (Bld) 1 % Normal 1-4 [facility] Comment on above: Performed By: #### C DP #### [address] [place], [place] [address] Show Card Letterer: Gerson Barton MD Erythrocyte distribution width (RBC) [Ratio] 14.0 % Normal 11.8-14.4 [facility] Comment on above: Performed By: #### C DP #### [address] [place] [id number] Show Card Letterer: Gerson Barton MD Hematocrit (Bld) [Volume fraction] 44.1 % Normal 36.3-47.1 [facility] Comment on above: Performed By: #### C DP #### [facility] [address] [place], [place] [id number] Show Card Letterer: Gerson Barton MD Hemoglobin (Bld) [Mass/Vol] 14.5 g/dL Normal 11.9-15.1 [facility] Comment on above: Performed By: #### C DP #### [facility] [address] [place], [place] [phone] Show Card Letterer: Gerson Barton MD Immature granulocytes/100 WBC (Bld) 1 % High 0 [facility] Comment on above: Performed By: #### C DP #### [facility] [address] [place], [facility] Show Card Letterer: Gerson Barton MD Lymphocytes (Bld) [#/Vol] 3.02 10*3/uL Normal 1.10-3.70 [facility] Comment on above: Performed By: #### C DP #### [facility] [address] [place], [facility] Show Card Letterer: Gerson Barton MD Lymphocytes/100 WBC (Bld) 29 % Normal 24-43 [facility] Comment on above: Performed By: #### C DP #### [facility] [address] [place], [facility]83 Show Card Letterer: Gerson Barton MD MCH (RBC) [Entitic mass] 29.2 pg Normal 25.2-33.5 [facility] Comment on above: Performed By: #### C DP #### [facility] [address] [place] [facility]83 Show Card Letterer: Gerson Barton MD MCHC (RBC) [Mass/Vol] 32.9 g/dL Normal 28.4-34.8 [facility] Comment on above: Performed By: #### C DP #### [facility] [address] [place] [facility]83 Show Card Letterer: Gerson Barton MD MCV (RBC) [Entitic vol] 88.7 fL Normal 82.6-102.9 [facility] Comment on above: Performed By: #### C DP #### [facility] [address] [place], [place] [id number] Show Card Letterer: Gerson Barton MD Monocytes (Bld) [#/Vol] 0.98 10*3/uL Normal 0.10-1.20 [facility] Comment on above: Performed By: #### C DP #### [facility] [address] [place] [address] Show Card Letterer: Gerson Barton MD Monocytes/100 WBC (Bld) 9 % Normal 3-12 [facility] Comment on above: Performed By: #### C DP #### [facility] [address] [place], [place] [address] Show Card Letterer: Gerson Barton MD Neutrophil (Seg) 59 % Normal 36-65 [facility] Comment on above: Performed By: #### C DP #### [address] [place], [facility]83 Show Card Letterer: Gerson Barton MD NRBC Automated 0.0 per 100 WBC Normal 0.0 [facility] Comment on above: Performed By: #### C DP #### [address] [place], [facility]83 Show Card Letterer: Gerson Barton MD Platelet mean volume (Bld) [Entitic vol] 9.3 fL Normal 8.1-13.5 [facility] Comment on above: Performed By: #### C DP #### [facility] [address] [place], [facility]83 Show Card Letterer: Gerson Barton MD Platelets (Bld) [#/Vol] 365 10*3/uL Normal 138-453 [facility] Comment on above: Performed By: #### C DP #### [address] [place], [place] [phone] Show Card Letterer: Gerson Barton MD RBC (Bld) [#/Vol] 4.97 10*6/uL Normal 3.95-5.11 [facility] Comment on above: Performed By: #### C DP #### [address] [place] [address] Show Card Letterer: Gerson Barton MD WBC (Bld) [#/Vol] 10.5 10*3/uL Normal 3.5-11.3 [facility] Comment on above: Performed By: #### C DP #### [address] [place] [address] Show Card Letterer: Gerson Barton MD Hemoglobin A1Con 12-20-2022 Glucose [Mass/Vol] 126 mg/dL Normal [facility] Comment on above: Result Comment: The ADA and AACC recommend providing the estimated average glucose result to permit better patient understanding of their HBA1c result. Performed By: #### C P, CDP, TSHX #### [address] [place] [address] Show Card Letterer: Gerson Barton MD #### URNMAB, FT4, GLYHGB, VD25, LIPR #### [address] [phone] Show Card Letterer: Asad Draper MD HbA1c (Bld) [Mass fraction] 6.0 % Normal 4.0-6.0 [facility] Comment on above: Performed By: #### C P, CDP, TSHX #### [address] [place] [address] Show Card Letterer: Gerson Barton MD #### URNMAB, FT4, GLYHGB, VD25, LIPR #### [address] [address] Show Card Letterer: Asad Draper MD Lipid Profileon 12-20-2022 Cholesterol [Mass/Vol] 115 mg/dL Normal <200 [facility] Comment on above: Result Comment: Cholesterol Guidelines: <200 Desirable 200-240 Borderline >240 Undesirable Performed By: #### C P, CDP, TSHX #### [facility] [address] [place] [address] [place] [address] Show Card Letterer: Gerson Barton MD #### URNMAB, FT4, GLYHGB, VD25, LIPR #### [facility] [address] [place], [place] [phone] Show Card Letterer: Asad Draper MD Cholesterol in HDL [Mass/Vol] 49 mg/dL Normal >40 [facility] Comment on above: Result Comment: HDL Guidelines: <40 Undesirable 40-59 Borderline >59 Desirable Performed By: #### C P, CDP, TSHX #### [address] [place] [address] Show Card Letterer: Gerson Barton MD #### URNMAB, FT4, GLYHGB, VD25, LIPR #### [facility] [employer] [place] [facility] [place] [address] Show Card Letterer: Asad Draper MD Cholesterol in LDL [Mass/Vol] 32 mg/dL Normal 0-130 [facility] Comment on above: Result Comment: LDL Guidelines: <100 Desirable 100-129 Near to/above Desirable 130-159 Borderline >159 Undesirable Direct (measured) LDL and calculated LDL are not interchangeable tests. Performed By: #### C P, CDP, TSHX #### [address] [place] [address] Show Card Letterer: Gerson Barton MD #### URNMAB, FT4, GLYHGB, VD25, LIPR #### [facility] [address] [place] [address] Show Card Letterer: Asad Draper MD Cholesterol.total/Ch olesterol in HDL [Mass ratio] 2.3 {ratio} Normal <5 [facility] Comment on above: Performed By: #### C P, CDP, TSHX #### [address] [place] [address] Show Card Letterer: Gerson Barton MD #### URNMAB, FT4, GLYHGB, VD25, LIPR #### [facility] [employer] [place] [facility] [place], [place] [phone] Show Card Letterer: Asad Draper MD Triglyceride [Mass/Vol] 171 mg/dL High <150 [facility] Comment on above: Result Comment: Triglyceride Guidelines: <150 Desirable 150-199 Borderline 200-499 High >499 Very high Based on AHA Guidelines for fasting triglyceride, March 2012. Performed By: #### C P, CDP, TSHX #### [address] [place] [address] Show Card Letterer: Gerson Barton MD #### URNMAB, FT4, GLYHGB, VD25, LIPR #### [place] [address] [place], [place] [address] Show Card Letterer: Asad Draper MD Microalb.,Random Uron 2022 Microalb/Creat Ratio 178 mcg/mg creat High <25 [facility] Comment on above: Performed By: #### C P, CDP, TSHX #### [address] [place] [address]83 Show Card Letterer: Gerson Barton MD #### URNMAB, FT4, GLYHGB, VD25, LIPR #### [place] [address] [place], [place] [phone] Show Card Letterer: Asad Draper MD Microalbumin conc. 764 mg/L High <21 [facility] Comment on above: Performed By: #### C P, CDP, TSHX #### [address] [place] [address]83 Show Card Letterer: Gerson Barton MD #### URNMAB, FT4, GLYHGB, VD25, LIPR #### [address] [address] Show Card Letterer: Asad Draper MD Creatinine [Mass/Vol] 428.7 mg/dL High 28.0-217.0 [facility] Comment on above: Performed By: #### C P, CDP, TSHX #### [address] [place], [place] 6708783 Show Card Letterer: Gerson Barton MD #### URNMAB, FT4, GLYHGB, VD25, LIPR #### [address] [address] Show Card Letterer: Asad Draper MD Thyroxine, Freeon 12-202022 Thyroxine, Free 1.5 ng/dL Normal 0.9-1.7 [facility] Comment on above: Performed By: #### C P, CDP, TSHX #### [address] [place] [address] Show Card Letterer: Gerson Barton MD #### URNMAB, FT4, GLYHGB, VD25, LIPR #### [place] [address] [place], [place] [phone] Show Card Letterer: Asad Draper MD Vitamin D 25 OHon 12-20-2022 Vitamin D 25 [place] 59.0 ng/mL Normal >29.9 [facility] Comment on above: Result Comment: Reference Range: Vitamin D status Range Deficiency <20 ng/mL Mild Deficiency 20-30 ng/mL Sufficiency 30-100 ng/mL Toxicity >100 ng/mL Performed By: #### C P, CDP, TSHX #### [address] [place] [address] Show Card Letterer: Gerson Barton MD #### URNMAB, FT4, GLYHGB, VD25, LIPR #### [facility] [address] [place] [address] Show Card Letterer: Asad Draper MD CBC with Auto Differentialon 12-19-2022 Basophils (Bld) [#/Vol] 0.05 10*3/uL [facility] Basophils/100 WBC (Bld) 0 % 0 - 2 % [facility] Eosinophils (Bld) [#/Vol] 0.07 10*3/uL [facility] Eosinophils/100 WBC (Bld) 1 % 1 - 4 % [facility] Erythrocyte distribution width (RBC) [Ratio] 13.8 % 11.8 - 14.4 % [facility] Hematocrit (Bld) [Volume fraction] 47.2 % High 36.3 - 47.1 % [facility] Hemoglobin (Bld) [Mass/Vol] 15.9 g/dL High 11.9 - 15.1 g/dL [facility] Immature granulocytes (Bld) [#/Vol] 0.09 10*3/uL [facility] Immature granulocytes/100 WBC (Bld) 1 % High 0 [facility] Interpretation and review of laboratory results Abnormal [facility] Lymphocytes/100 WBC (Bld) 16 % Low 24 - 43 % [facility] Lymphocytes/100 WBC (Bld) 1.85 % [facility] MCH (RBC) [Entitic mass] 28.8 pg 25.2 - 33.5 pg [facility] MCHC (RBC) [Mass/Vol] 33.7 g/dL 28.4 - 34.8 g/dL [facility] MCV (RBC) [Entitic vol] 85.5 fL 82.6 - 102.9 fL [facility] Monocytes/100 WBC (Bld) 8 % 3 - 12 % [facility] Monocytes/100 WBC (Bld) 0.89 % [facility] Neutrophils/100 WBC (Bld) 74 % High 36 - 65 % [facility] Nucleated RBC/100 WBC (Bld) [Ratio] 0.0 % 0.0 per 100 WBC [facility] Platelet mean volume (Bld) [Entitic vol] 9.0 fL 8.1 - 13.5 fL [facility] Platelets (Bld) [#/Vol] 335 10*3/uL [facility] RBC (Bld) [#/Vol] 5.52 10*6/uL High 3.95 - 5.1 1 m/uL [facility] Segmented neutrophils/100 WBC (Bld) 8.61 % High [facility] WBC other (Bld) [#/Vol] 11.6 High [facility] CBC with Diffon 12-19-2022 Abs. Basophil 0.05 k/uL Normal 0.00-0.20 [facility] Comment on above: Performed By: #### C P, CDP, TSHX #### [address] [place] [phone] Show Card Letterer: Gerson Barton MD #### YESY, FT4, GLYHGB, VD25, LIPR #### [place] [phone] Show Card Letterer: Asad Draper MD Abs.Imm.Granulocyte 0.09 k/uL Normal 0.00-0.30 [facility] Comment on above: Performed By: #### C P, CDP, TSHX #### [address] [place] [address] Show Card Letterer: Gerson Barton MD #### YESY, FT4, GLYHGB, VD25, LIPR #### [address] [phone] Show Card Letterer: Asad Draper MD Abs.Neutrophil (Seg) 8.61 k/uL High 1.50-8.10 [facility] Comment on above: Performed By: #### C P, CDP, TSHX #### [facility] [address] [place] [address] [place] [address] Show Card Letterer: Gerson Barton MD #### URNMAB, FT4, GLYHGB, VD25, LIPR #### [address] [phone] Show Card Letterer: Asad Draper MD Basophils/100 WBC (Bld) 0 % Normal 0-2 [facility] Comment on above: Performed By: #### C P, CDP, TSHX #### [address] [place] [phone] Show Card Letterer: Gerson Barton MD #### URNMAB, FT4, GLYHGB, VD25, LIPR #### [place] [phone] Show Card Letterer: Asad Draper MD Eosinophils (Bld) [#/Vol] 0.07 10*3/uL Normal 0.00-0.44 [facility] Comment on above: Performed By: #### C P, CDP, TSHX #### [address] [place] [phone] Show Card Letterer: Gerson Barton MD #### URNMAB, FT4, GLYHGB, VD25, LIPR #### [place] [address] Show Card Letterer: Asad Draper MD Eosinophils/100 WBC (Bld) 1 % Normal 1-4 [facility] Comment on above: Performed By: #### C P, CDP, TSHX #### [address] [place] [address]83 Show Card Letterer: Gerson Barton MD #### URNMAB, FT4, GLYHGB, VD25, LIPR #### [place] [phone] Show Card Letterer: Asad Draper MD Erythrocyte distribution width (RBC) [Ratio] 13.8 % Normal 11.8-14.4 [facility] Comment on above: Performed By: #### C P, CDP, TSHX #### [address] [place], [place] 5626183 Show Card Letterer: Gerson Barton MD #### URNMAB, FT4, GLYHGB, VD25, LIPR #### [address] [phone] Show Card Letterer: Asad Draper MD Hematocrit (Bld) [Volume fraction] 47.2 % High 36.3-47.1 [facility] Comment on above: Performed By: #### C P, CDP, TSHX #### [address] [place] [address] Show Card Letterer: Gerson Barton MD #### URNMAB, FT4, GLYHGB, VD25, LIPR #### [address] [phone] Show Card Letterer: Asad Draper MD Hemoglobin (Bld) [Mass/Vol] 15.9 g/dL High 11.9-15.1 [facility] Comment on above: Performed By: #### C P, CDP, TSHX #### [address] [place], [place] 75[address]83 Show Card Letterer: Gerson Barton MD #### URNMAB, FT4, GLYHGB, VD25, LIPR #### [address] [address] Show Card Letterer: Asad Draper MD Immature granulocytes/100 WBC (Bld) 1 % High 0 [facility] Comment on above: Performed By: #### C P, CDP, TSHX #### [address] [place] [address] Show Card Letterer: Gerson Barton MD #### URNMAB, FT4, GLYHGB, VD25, LIPR #### [address] [phone] Show Card Letterer: Asad Draper MD Lymphocytes (Bld) [#/Vol] 1.85 10*3/uL Normal 1.10-3.70 [facility] Comment on above: Performed By: #### C P, CDP, TSHX #### [facility] [address] [place] [address] Show Card Letterer: Gerson Barton MD #### URNMAB, FT4, GLYHGB, VD25, LIPR #### [address] [phone] Show Card Letterer: Asad Draper MD Lymphocytes/100 WBC (Bld) 16 % Low 24-43 [facility] Comment on above: Performed By: #### C P, CDP, TSHX #### [address] [place] [address] Show Card Letterer: Gerson Barton MD #### URNMAB, FT4, GLYHGB, VD25, LIPR #### [address] [address] Show Card Letterer: Asad Draper MD MCH (RBC) [Entitic mass] 28.8 pg Normal 25.2-33.5 [facility] Comment on above: Performed By: #### C P, CDP, TSHX #### [facility] [address] [place] [address] Dr. [place] [phone] Show Card Letterer: Gerson Barton MD #### URNMAB, FT4, GLYHGB, VD25, LIPR #### [address] [phone] Show Card Letterer: Asad Draper MD MCHC (RBC) [Mass/Vol] 33.7 g/dL Normal 28.4-34.8 [facility] Comment on above: Performed By: #### C P, CDP, TSHX #### [facility] [address] [place] [address] [place] [address] Show Card Letterer: Gerson Barton MD #### URNMAB, FT4, GLYHGB, VD25, LIPR #### [place] [address] [place] [address] Show Card Letterer: Asad Draper MD MCV (RBC) [Entitic vol] 85.5 fL Normal 82.6-102.9 [facility] Comment on above: Performed By: #### C P, CDP, TSHX #### [address] [place], [place] 119[address]183 Show Card Letterer: Gerson Barton MD #### URNMAB, FT4, GLYHGB, VD25, LIPR #### [address] [address] Show Card Letterer: Asad Draper MD Monocytes (Bld) [#/Vol] 0.89 10*3/uL Normal 0.10-1.20 [facility] Comment on above: Performed By: #### C P, CDP, TSHX #### [address] [place], [place] [phone] Show Card Letterer: Gerson Barton MD #### URNMAB, FT4, GLYHGB, VD25, LIPR #### [address] [phone] Show Card Letterer: Asad Draper MD Monocytes/100 WBC (Bld) 8 % Normal 3-12 [facility] Comment on above: Performed By: #### C P, CDP, TSHX #### [address] [place], [place] [phone] Show Card Letterer: Gerson Barton MD #### URNMAB, FT4, GLYHGB, VD25, LIPR #### [address] [phone] Show Card Letterer: Asad Draper MD Neutrophil (Seg) 74 % High 36-65 [facility] Comment on above: Performed By: #### C P, CDP, TSHX #### [address] [place] 7[address]83 Show Card Letterer: Gerson Barton MD #### URNMAB, FT4, GLYHGB, VD25, LIPR #### [address] [phone] Show Card Letterer: Asad Draper MD NRBC Automated 0.0 per 100 WBC Normal 0.0 [facility] Comment on above: Performed By: #### C P, CDP, TSHX #### [address] [place] 744[address]83 Show Card Letterer: Gerson Barton MD #### URNMAB, FT4, GLYHGB, VD25, LIPR #### [place] [phone] Show Card Letterer: Asad Draper MD Platelet mean volume (Bld) [Entitic vol] 9.0 fL Normal 8.1-13.5 [facility] Comment on above: Performed By: #### C P, CDP, TSHX #### [address] [place] 744[address]83 Show Card Letterer: Gerson Barton MD #### URNMAB, FT4, GLYHGB, VD25, LIPR #### [address] [phone] Show Card Letterer: Asad Draper MD Platelets (Bld) [#/Vol] 335 10*3/uL Normal 138-453 [facility] Comment on above: Performed By: #### C P, CDP, TSHX #### [address] [place] [address]44[address]83 Show Card Letterer: Gerson Barton MD #### URNMAB, FT4, GLYHGB, VD25, LIPR #### [address] [address] Show Card Letterer: Asad Draper MD RBC (Bld) [#/Vol] 5.52 10*6/uL High 3.95-5.11 [facility] Comment on above: Performed By: #### C P, CDP, TSHX #### [address] [place], [place] 1216883 Show Card Letterer: Gerson Barton MD #### URNMAB, FT4, GLYHGB, VD25, LIPR #### [facility] [employer] [place] [facility] [place] [address] Show Card Letterer: Asad Draper MD WBC (Bld) [#/Vol] 11.6 10*3/uL High 3.5-11.3 [facility] Comment on above: Performed By: #### C P, CDP, TSHX #### [address] [place], [place] 3474583 Show Card Letterer: Gerson Barton MD #### URNMAB, FT4, GLYHGB, VD25, LIPR #### [address] [address] Show Card Letterer: Asad Draper MD Comp Metabolic Profon 2022 Albumin [Mass/Vol] 5.1 g/dL Normal 3.5-5.2 [facility] Comment on above: Performed By: #### C P, CDP, TSHX #### [address] [place], [place] 100[address]83 Show Card Letterer: Gerson Barton MD #### URNMAB, FT4, GLYHGB, VD25, LIPR #### [address] [place] [address] Show Card Letterer: Asad Draper MD Albumin/Glob Ratio 1.6 Normal 1.0-2.5 [facility] Comment on above: Performed By: #### C P, CDP, TSHX #### [facility] [address] [place], [place] [id number] Show Card Letterer: Gerson Barton MD #### URNMAB, FT4, GLYHGB, VD25, LIPR #### [address] [id number] Show Card Letterer: Asad Draper MD Alkaline Phos 74 U/L Normal 35-104 [facility] Comment on above: Performed By: #### C P, CDP, TSHX #### [facility] [address] [place], [place] [id number] Show Card Letterer: Gerson Barton MD #### URNMAB, FT4, GLYHGB, VD25, LIPR #### [address] [phone] Show Card Letterer: Asad Draper MD ALT [Catalytic activity/Vol] 44 U/L High 5-33 [facility] Comment on above: Performed By: #### C P, CDP, TSHX #### [address] [place], [place] [phone] Show Card Letterer: Gerson Barton MD #### URNMAB, FT4, GLYHGB, VD25, LIPR #### [address] [phone] Show Card Letterer: Asad Draper MD Anion gap [Moles/Vol] 14 mmol/L Normal 9-17 [facility] Comment on above: Performed By: #### C P, CDP, TSHX #### [facility] [address] [place], [place] [phone] Show Card Letterer: Gerson Barton MD #### URNMAB, FT4, GLYHGB, VD25, LIPR #### [address] [place], [place] [phone] Show Card Letterer: Asad Draper MD AST [Catalytic activity/Vol] 27 U/L Normal <32 [facility] Comment on above: Performed By: #### C P, CDP, TSHX #### [address] [place], [place] 0[address]383 Show Card Letterer: Gerson Barton MD #### URNMAB, FT4, GLYHGB, VD25, LIPR #### [address] [phone] Show Card Letterer: Asad Draper MD Bilirubin [Mass/Vol] 1.7 mg/dL High 0.3-1.2 [facility] Comment on above: Performed By: #### C P, CDP, TSHX #### [address] [place] [address] Show Card Letterer: Gerson Barton MD #### URNMAB, FT4, GLYHGB, VD25, LIPR #### [address] [phone] Show Card Letterer: Asad Draper MD BUN/CRE Ratio 20 Normal 9-20 [facility] Comment on above: Performed By: #### C P, CDP, TSHX #### [address] [place] [address] Show Card Letterer: Gerson Barton MD #### URNMAB, FT4, GLYHGB, VD25, LIPR #### [address] [id number] Show Card Letterer: Asad Draper MD Calcium [Mass/Vol] 10.5 mg/dL High 8.6-10.4 [facility] Comment on above: Performed By: #### C P, CDP, TSHX #### [address] [place] [address] Show Card Letterer: Gersno Barton MD #### URNMAB, FT4, GLYHGB, VD25, LIPR #### [address] [phone] Show Card Letterer: Asad Draper MD Chloride [Moles/Vol] 94 mmol/L Low 98-107 [facility] Comment on above: Performed By: #### C P, CDP, TSHX #### [facility] [address] [place] [address] [place]. [place], [place] [phone] Show Card Letterer: Gerson Barton MD #### URNMAB, FT4, GLYHGB, VD25, LIPR #### [address] [place] [address] Show Card Letterer: Asad Draper MD CO2 [Moles/Vol] 30 mmol/L Normal 20-31 [facility] Comment on above: Performed By: #### C P, CDP, TSHX #### [facility] [address] [place] [address] [place] [address] Show Card Letterer: Gerson Barton MD #### URNMAB, FT4, GLYHGB, VD25, LIPR #### [address] [address] Show Card Letterer: Asad Draper MD Creatinine [Mass/Vol] 0.8 mg/dL Normal 0.5-0.9 [facility] Comment on above: Performed By: #### C P, CDP, TSHX #### [facility] [address] [place] [address] Dr. [place], [place] [phone] Show Card Letterer: Gerson Barton MD #### URNMAB, FT4, GLYHGB, VD25, LIPR #### [address] [phone] Show Card Letterer: Asad Draper MD GFR/1.73 sq M.predicted among non-blacks MDRD (S/P/Bld) [Vol rate/Area] mL/min/{1.73_m2} Normal >60 [facility] Comment on above: Result Comment: These results [...] By: #### C P, CDP, TSHX #### [address] [place] [phone] Show Card Letterer: Gerson Barton MD #### URNMAB, FT4, GLYHGB, VD25, LIPR #### [address] [phone] Show Card Letterer: Asad Draper MD Glucose [Mass/Vol] 137 mg/dL High 70-99 [facility] Comment on above: Performed By: #### C P, CDP, TSHX #### [address] [place] [phone] Show Card Letterer: Gerson Barton MD #### URNMAB, FT4, GLYHGB, VD25, LIPR #### [address] [phone] Show Card Letterer: Asad Draper MD Potassium [Moles/Vol] 4.3 mmol/L Normal 3.7-5.3 [facility] Comment on above: Performed By: #### C P, CDP, TSHX #### [address] [place] [address] Show Card Letterer: Gerson Barton MD #### URNMAB, FT4, GLYHGB, VD25, LIPR #### [address] [phone] Show Card Letterer: Asad Draper MD Protein [Mass/Vol] 8.2 g/dL Normal 6.4-8.3 [facility] Comment on above: Performed By: #### C P, CDP, TSHX #### [address] [place] [address] Show Card Letterer: Gerson Barton MD #### URNMAB, FT4, GLYHGB, VD25, LIPR #### [address] [place], [place] [phone] Show Card Letterer: Asad Draper MD Sodium [Moles/Vol] 138 mmol/L Normal 135-144 [facility] Comment on above: Performed By: #### C P, CDP, TSHX #### [address] [place] [address] Show Card Letterer: Gerson Barton MD #### URNMAB, FT4, GLYHGB, VD25, LIPR #### [address] [place], [place] [phone] Show Card Letterer: Asad Draper MD Urea nitrogen [Mass/Vol] 16 mg/dL Normal 6-20 [facility] Comment on above: Performed By: #### C P, CDP, TSHX #### [address] [place] [address] Show Card Letterer: Gerson Barton MD #### URNMAB, FT4, GLYHGB, VD25, LIPR #### [address] [place], [place] [phone] Show Card Letterer: Asad Draper MD [facility] Metabolic Pane [facility] 12-19-2022 Albumin [Mass/Vol] 5.1 g/dL 3.5 - 5.2 g/dL [facility] Albumin/Globulin [Mass ratio] 1.6 {ratio} 1.0 - 2.5 [facility] ALP [Catalytic activity/Vol] 74 U/L 35 - 104 U/L [facility] ALT [Catalytic activity/Vol] 44 U/L High 5 - 33 U/L [facility] Anion gap [Moles/Vol] 14 mmol/L 9 - 17 mmol/L [facility] AST [Catalytic activity/Vol] 27 U/L NINF - 32 U/L [facility] Bilirubin [Mass/Vol] 1.7 mg/dL High 0.3 - 1 .2 mg/dL [facility] Calcium [Mass/Vol] 10.5 mg/dL High 8.6 - 10. 4 mg/dL [facility] Chloride [Moles/Vol] 94 mmol/L Low 98 - 10 7 mmol/L [facility] CO2 [Moles/Vol] 30 mmol/L 20 - 31 mmol/L [facility] Creatinine [Mass/Vol] 0.8 mg/dL 0.5 - 0.9 mg/dL [facility] GFR/1.73 sq M.predicted MDRD (S/P/Bld) [Vol rate/Area] - PINF [facility] Comment on above: These results are not [...] 137 mg/dL High 70 - 99 mg/dL [facility] Interpretation and review of laboratory results Abnormal [facility] Potassium [Moles/Vol] 4.3 mmol/L 3.7 - 5.3 mmol/L [facility] Protein [Mass/Vol] 8.2 g/dL 6.4 - 8.3 g/dL [facility] Sodium [Moles/Vol] 138 mmol/L 135 - 144 mmol/L [facility] Urea nitrogen [Mass/Vol] 16 mg/dL 6 - 20 mg/dL [facility] Urea nitrogen/Creatinine [Mass ratio] 20 mg/mg 9 - 20 [facility] Lipid Panelon 12-19-2022 Cholesterol [Mass/Vol] 115 mg/dL NINF - 200 mg/dL [facility] Comment on above: Cholesterol Guidelines: <200 Desirable 200-240 Borderline >240 Undesirable Cholesterol in HDL [Mass/Vol] 49 mg/dL 40 - PINF mg/dL [facility] Comment on above: HDL Guidelines: <40 Undesirable 40-59 Borderline >59 Desirable Cholesterol in LDL [Mass/Vol] 32 mg/dL 0 - 130 mg/dL [facility] Comment on above: LDL Guidelines: <100 Desirable 100-129 Near to/above Desirable 130-159 Borderline >159 Undesirable Direct (measured) LDL and calculated LDL are not interchangeable tests. Cholesterol.total/Ch olesterol in HDL [Mass ratio] 2.3 {ratio} NINF - 5 [facility] Interpretation and review of laboratory results Abnormal [facility] Triglyceride [Mass/Vol] 171 mg/dL [facility] mg/dL [facility] Comment on above: Triglyceride Guidelines: <150 Desirable 150-199 Borderline 200-499 High >499 Very high Based on AHA Guidelines for fasting triglyceride, March 2012. [facility] Microalbumin, Uron 3 Albumin DL <= 20 mg/L (U) [Mass/Vol] 764 mg/L High [facility] mg/L [facility] Albumin/Creatinine DL <= 20 mg/L (U) [Ratio] 178 High [facility] Creatinine (U) [Mass/Vol] 428.7 mg/dL High 28.0 - 217.0 mg/dL [facility] Interpretation and review of laboratory results Abnormal [facility] T4, Freeon 12-19-2022 Free T4 [Mass/Vol] 1.5 ng/dL 0.9 - 1.7 ng/dL [facility] TSH w/reflex to FT4on 2022 Thyroid Stim. Horm. 6.76 uIU/mL High 0.30-5.00 [facility] Comment on above: Performed By: #### C P, CDP, TSHX #### [facility] [address] [place] [address] Show Card Letterer: Gerson Barton MD #### URNMAB, FT4, GLYHGB, VD25, LIPR #### [address] [place] [address] Show Card Letterer: Asad Draper MD TSH with Reflexon 12-19-2022 Interpretation and review of laboratory results Abnormal [facility] T[facility] Qn 6.76 m[IU]/L High [facility] [employer] Vitamin D 25 Hydroxyon 12-19 25-hydroxyvitamin D3 [Mass/Vol] 59.0 ng/mL 29.9 - PINF ng/mL [facility] [employer] Comment on above: Reference Range: Vitamin D status Range Deficiency <20 ng/mL Mild Deficiency 20-30 ng/mL Sufficiency 30-100 ng/mL Toxicity >100 ng/mL [facility] Apptentive [employer] XR CHEST (2 VW)Ordered By: Ventura Whitlock on 12-08-2020 No acute cardiopulmonary disease. [employer] Phone: EXAMINATION: TWO XRA Y VIEWS OF THE CHEST 12/06/2020 7:41 pm COMPARISON: July 19, 2017. HISTORY: ORDERING SYSTEM PROVIDED HISTORY: Mild intermittent asthma without complication TECHNOLOGIST PROVIDED HISTORY: ASTHMA FINDINGS: No lines or tubes. Normal cardiomediastinal silhouette. The lungs are clear without focal consolidation or pleural effusion. No suspicious pulmonary nodules. No pulmonary edema. No pneumothorax. No acute osseous abnormality. [employer] Phone: Kalpesh, [facility] Incoming Radiant Results From [facility] - 12/08/2020 8:26 PM EDT EXAMINATION: TWO [...] osseous abnormality. IMPRESSION: No acute cardiopulmonary disease. [employer] Phone: [employer] Phone: Discharge Summaryon 07-22-19 18 HIM IP Note OR Advisory Software Engineer Normal [facility] CBCon 07-21-2017 Erythrocyte distribution width Auto Ratio (RBC) 12.9 % Normal 11.8-14.4 [facility] Comment on above: Performed By: #### T VU LIPR ####[address] [address] Erythrocytes (RBC) 0.0 per 100 WBC Normal 0.0 M [facility] Comment on above: Result Comment: [address] [address] Performed By: #### T VU LIPR ####[address] [address] Erythrocytes (RBC) 4.33 10*6/uL Normal 3.95-5.11 [facility] Comment on above: Performed By: #### David WOMACK LIPR ####[address] [address] Hematocrit (HCT) 38.1 % Normal 36.3-47.1 [facility] Comment on above: Performed By: #### T VU LIPR ####[address] [address] Hemoglobin mass conc (Bld) 12.4 g/dL Normal 11.9-15.1 [facility] Comment on above: Performed By: #### T VU LIPR ####[address] [address] MCH 28.6 pg Normal 25.2-33.5 [facility] Comment on above: Performed By: #### T VU LIPR ####[address] [address] MCHC mass conc (RBC) 32.5 g/dL Normal 28.4-34.8 [facility] Comment on above: Performed By: #### T VU LIPR ####[facility] [address] [place] [address] MCV 88.0 fL Normal 82.6-102.9 [facility] Comment on above: Performed By: ###BECCA DICKSON ####Evelia [address] [place] [address] Platelet mean volume (PMV) 9.7 fL Normal 8.1-13.5 [facility] Comment on above: Performed By: #### BECCA MYLES ####[facility] [address] [address] Platelets 198 10*3/uL Normal 138-453 [facility] Comment on above: Performed By: ###BECCA DICKSON ####[address] [address] WBC (Leukocytes) 4.5 10*3/uL Normal 3.5-11.3 [facility] Comment on above: Performed By: ###BECCA DICKSON ####[facility] [address] [address] Comp Metabolic Pr/rfx MGon 0 - Potassium molar conc 3.5 mmol/L Low 3.7-5.3 [facility] Comment on above: Performed By: ###BECCA DICKSON ####[address] [address] (cont.) Normal [facility] Comment on above: Result Comment: Aver age GFR for 40-49 years old: 99 mL/min/1.73sq mChronic Kidney Disease: <60 mL/min/1.73sq mKidney failure: <15 mL/min/1.73sq meGFR calculated using average adult body mass. Additional eGFR calculator available at:http://[email or web address]/multiple_crcl_[email or web address] [address] Performed By: #### T VU LIPR ####[facility] [address] [place] [address] Alanine aminotransferase (ALT) 15 U/L Normal 5-33 [facility] Comment on above: Performed By: #### T VU LIPR ####[facility] [address] [place] [address] Albumin 3.9 g/dL Normal 3.5-5.2 [facility] Comment on above: Performed By: #### T VU LIPR ####[facility] [address] [place] [address] Albumin/Globulin Ratio 2.1 {ratio} Normal 1.0-2.5 [facility] Comment on above: Performed By: #### David WOMACK LIPR ####[facility] [address] [place] [address] Alkaline Phos 34 U/L Low 35-104 [facility] Comment on above: Performed By: #### David WOMACK LIPR ####[facility] [address] [place] [address] Anion gap 12 mmol/L Normal 9-17 [facility] Comment on above: Performed By: #### T VU LIPR ####[facility] [address] [place] [address] Aspartate aminotransferase (AST) 14 U/L Normal <32 [facility] Comment on above: Performed By: #### T VU LIPR ####[facility] [address] [place] [address] Bilirubin Ql (U) 1.02 mg/dL Normal 0.3-1.2 [facility] Comment on above: Performed By: #### T VU LIPR ####[facility] [address] [place] [address] Calcium 9.0 mg/dL Normal 8.6-10.4 [facility] Comment on above: Performed By: #### BECCA MYLES ####[facility] [address] [place] [address] Chloride 99 mmol/L Normal 98-107 [facility] Comment on above: Performed By: #### BECCA MYLES ####[facility] [address] [place] [address] CO2 24 mmol/L Normal 20-31 [facility] Comment on above: Performed By: #### BECCA MYLES ####[facility] [address] [place] [address] Creatinine 0.60 mg/dL Normal 0.50-0.90 [facility] Comment on above: Performed By: #### VIRGEN MYLESR ####[facility] [address] [place] [address] eGFR (non-black) mL/min/{1.73_m2} Normal >60 [facility] Comment on above: Performed By: #### BECCA MYLES ####[facility] [address] [place] [address] Glucose mass conc 99 mg/dL Normal 70-99 [facility] Comment on above: Performed By: #### VIRGEN MYLESR ####[facility] [address] [place] [address] Protein 5.8 g/dL Low 6.4-8.3 [facility] Comment on above: Performed By: #### BECCA MYLES ####[facility] [address] [place] [address] Sodium 135 mmol/L Normal 135-144 [facility] Comment on above: Performed By: #### BECCA MYLES ####[employer] [address] [place] [address] Urea nitrogen 21 mg/dL High 6-20 [facility] Comment on above: Performed By: #### BECCA MYLES ####[address] [place] [address] BUN/CRE Ratio NOT REPORTED Normal 9-20 [facility] Comment on above: Performed By: #### BECCA MYLES ####[address] [place] [address] Staging: NOT REPORTED Normal [facility] Comment on above: Performed By: #### BECCA MYLES ####[facility] [address] [place] [address] Magnesiumon 07-21-2017 Magnesium 1.9 mg/dL Normal 1.6-2.6 [facility] Comment on above: Result Comment: [facility] [address] [place] [address] Performed By: #### BECCA MYLES ####[facility] [address] [place] [address] Plan of Careon 07-21-2017 HIM IP Note OR Advisory Software Engineer Normal [facility] HIM IP Note OR Advisory Software Engineer Normal [facility] HIM IP Note OR Advisory Software Engineer Normal [facility] Progress Noteon 07-21-2017 HIM IP Note OR Advisory Software Engineer Normal [facility] HIM IP Note OR Advisory Software Engineer Normal [facility] CARDIAC STRESS TESTon 2017 CARDIAC STRESS TEST [address] [id number] CARDIAC STRESS TESTPATIENT NAME: AISHWARYA DUNN : 1965MED REC NO: [id number] ROOM: [address] [place] [address] NO: [id number] ADMIT DATE: 07/20/2017PROVIDER: Ang CraigARDIYASSINE TREADMILL STRESS STUDYDATE OF STUDY: 07/20/2017ORDERING PROVIDER: Mari CejaNORTHE[facility] CARE PROVIDER: Jori RineINDICATION: [...] of Nuclear MedicineANG SHELLMID: 07/20/2017 15:47:34 /PGAYTANJob#: [id number] Doc#: UnknownPositive result faxed to the Unit Normal [facility] Consulton 07-20-2017 HIM IP Note OR Advisory Software Engineer Normal [facility] History and Physicalon 07-20 HIM IP Note OR Advisory Software Engineer Normal [facility] K (Potassium)on 07-20-2017 Potassium molar conc 3.9 mmol/L Normal 3.7-5.3 [facility] Comment on above: Result Comment: [facility] Glam .[employer] [place] [facility] [place], [place] [phone] Performed By: #### BECCA MYLES ####[facility]CorpsRfphaqyvgmcg[address] [place] [address] Lipid Profileon 07-20-2017 Cholesterol 162 mg/dL Normal <200 [facility] Comment on above: Result Comment: Chol esterol Guidelines: <200 Desirable 200-240 Borderline >240 Undesirable Performed By: #### BECCA MYLES ####[facility]psPtpazfgggnci[address] [place] [address] Cholesterol to HDL Ratio 3.4 {ratio} Normal <5 [facility] Comment on above: Performed By: #### BECCA MYLES ####[address] [place] [address] HDL Cholesterol 48 mg/dL Normal >40 [facility] Comment on above: Result Comment: HDL Guidelines: <40 Undesirable 40-59 Borderline >59 Desirable Performed By: #### T BECCA WOMACK ####[address] [address] LDL Cholesterol 84 mg/dL Normal 0-130 [facility] Comment on above: Result Comment: LDL Guidelines: <100 Desirable 100-129 Near to/above Desirable 130-159 Borderline >159 UndesirableDirect (measured) LDL and calculated LDL are not interchangeable tests. Performed By: #### T BECCA WOMACK ####[facility] [address] [place] [address] Triglyceride 151 mg/dL High <150 [facility] Comment on above: Result Comment: Trig lyceride Guidelines: <150 Desirable 150- 199 Borderline 200-499 High >499 Very high Based on AHA Guidelines for fasting triglyceride, March 2012.[employer] [address] [place] [address] Performed By: #### T BECCA WOMACK ####[facility] [address] [place] [address] Cholesterol in VLDL mass conc NOT REPORTED Normal 1-30 [facility] Comment on above: Performed By: #### T BECCA WOMACK ####[facility] [address] [place] [address] Magnesiumon 07-20-2017 Magnesium 1.8 mg/dL Normal 1.6-2.6 [facility] Comment on above: Result Comment: [employer] [address] [place] [address] Performed By: #### T BECCA WOMACK ####[facility]GiveCorpsErtwjygoirhh[address] [place] [address] [place] MYOCARDIAL SPECT REST EXE RCISE OR [...] Revascularization in Patients With Stable Ischemic Heart [facility]AL[facility] Volume 69, Issue October 2016High risk (>3% annual or [place])1. Severe resting LV dysfunction (LVEF >35%) not [...] e risk (1% to 3% annual or [place])1. Mild/moderate resting LV dysfunction (LVEF 35% to [...] coronarybed.Low Risk (Less than 1% annual or [place])1. Normal or small myocardial perfusion defect at rest or with stressencumbering less than 5% of the myocardium.Interpreted by:JENNI Montañoigned by:Giovanny Lan MD07/20/17inal result Normal [facility] Plan of Careon 07-20-2017 HIM IP Note OR Advisory Software Engineer Normal [facility] HIM IP Note OR Advisory Software Engineer Normal [facility] Procedureon 07-20-2017 HIM IP Note OR Advisory Software Engineer Normal [facility] Progress Noteon 07-20-2017 HIM IP Note OR Advisory Software Engineer Normal [facility] HIM IP Note OR Advisory Software Engineer Normal [facility] TSH w/reflex to FT4on 2017 Thyroid stimulating hormone (TSH) 0.22 m[IU]/L Low 0.30-5.00 [facility] Comment on above: Result Comment: [facility] [employer] [place] [address] [place] [address] Performed By: #### T SHX, FT4 ####[address] [address] Thyroxine, Freeon 07-20-2017 Thyroxine, Free 1.52 ng/dL Normal 0.93-1.70 [facility] Comment on above: Result Comment: [facility] [employer] [address] [place] [address] Performed By: #### T SHX, FT4 ####[address] [address] Troponinon 07-20-2017 Troponin I.cardiac mass conc Normal [facility] Comment on above: Result Comment: Refe rence Range: <0.03 Within reference range. 0.03-0.09 Possible myocardial damage.Repeat at appropriate intervals to rule out chronic elevation. >= 0.10 Indicative of myocardial damage.Patients with high levels of Biotin oral intake (i.e >5mg/day) may have falsely decreased Troponin T levels. Samples collected within 8 hours of biotin intake may require additional information for diagnosis.[facility] [employer] [place] [address] [place] [address] Performed By: #### BECCA MYLES ####[address] [address] Troponin T.cardiac mass conc ug/L Normal <0.03 [facility] Comment on above: Result Comment: Trop onin T results cannot be compared to Troponin-I results. Performed By: #### BECCA MYLES ####[address] [address] Encounters Encounter Date Encounter Type Care Provider Facility Start: 12-18-2023 End: 12-18-2023 ambulatory POLO DIAZ Not Available Start: 11-19-2023 End: 11-19-2023 ambulatory JEANINE WHITLOCK Not Available Start: 10-11-2023 End: 10-11-2023 ambulatory POLO DIAZ Not Available Start: 07-15-2023 End: 07-18-2023 [facility] Start: 07-15-2023 End: 07-17-2023 Subsequent hospital visit by physician román Dexa [facility] Dexa Scan Comment on above: Age-related osteopor osis without current pathological fracture Start: 05-24-2023 End: 05-24-2023 ambulatory JEANINE WHITLOCK Not Available Start: 05-10-2023 End: 05-11-2023 ambulatory [facility] Start: 12-27-2022 End: 12-28-2022 ambulatory [facility] Start: 12-19-2022 End: 12-20-2022 ambulatory POLO DIAZ [facility] Start: 12-19-2022 End: 12-19-2022 Subsequent hospital visit by physician Jeanine Whitlock Work Phone: [facility] Start: 12-06-2020 End: 12-08-2020 Subsequent hospital visit by physician Maddie Sewell Dr Room 2 [facility] Radiology Comment on above: Mild intermittent as thma without complication Start: 07-20-2017 End: 07-22-2017 Evaluation and management of inpatient JEANINE WHITLOCK [facility] Procedures Date Procedure Procedure Detail Performing Clinician Start: 07-15-2023 Dxa bone density thomas dy 1/> sites axial skel Tyler Ramey MD Work Phone: Start: 12-19-2022 Comprehensive metabo lic panel Polo Escobedo [employer]PER[employer] Work Phone: Start: 12-19-2022 Lipid panel Polo ocampo [employer] Work Phone: Start: 12-19-2022 Urine albumin quantitative Polo Escobedo [employer] Work Phone: Start: 12-06-2020 Radiologic exam ches t 2 views Jeanine Whitlock Work Phone: Start: 01-23-2018 Colonoscopy Jeanine Rine Work Phone: Start: 07-22-2017 SUPERVISOR [employer]PLITTING REPORT JEANINE R INE Start: 07-22-2017 DISCHARGE [...] Start: 07-20-2017 PLACE INTERMITTENT PNEUMATIC COMPRESSION DEVICE JEAINNE CHINYERE Start: 07-20-2017 PATIENT STATUS (DIRECT) JEANINE WHITLOCK Plan of Treatment Date Care Activity Detail Author Start: 01-24-2028 [facility] malign [facility]oplasm [facility] Start: 02-13-2027 DTaP/Tdap/Td vaccine (3 - Td or Tdap) DTaP/Tdap/Td vaccine (3 - Td or Tdap) [facility] Start: 05-24-2025 Screening for malign ant neoplasm of breast Breast cancer screen [facility] Start: 12-20-2023 GFR test (Diabetes, CKD 3-4, OR last GFR 15-59) GFR test (Diabetes, CKD 3-4, OR last GFR 15-59) [facility] Start: 12-20-2023 Hemoglobin A1c measurement A1C test (Diabetic or Prediabetic) [facility] Start: 12-20-2023 Lipid panel Lipids [facility] [employer] Start: 12-20-2023 Urine screening for protein Diabetic Alb to Cr ratio (uACR) test [facility] Start: 01-01-2023 Influenza vaccination Flu vaccine (# 1) [facility] Start: 02-01-2021 Influenza vaccination Flu vaccine (# 1) [employer] Phone: Start: 12-02-2020 COVID-19 Vaccine (3 - Booster for Moderna series) COVID-19 Vaccine (3 - Booster for Moderna series) [facility] Start: 01-18-2020 Screening for malign ant neoplasm of breast Breast cancer screen [facility] Start: 07-23-2018 Creatinine measurement Creatinine [facility] [employer] Phone: Start: 07-23-2018 GFR test (Diabetes, CKD 3-4, OR last GFR 15-59) GFR test (Diabetes, CKD 3-4, OR last GFR 15-59) [facility] Start: 07-23-2018 Potassium monitoring Potassium monit brockng [employer] Phone: Start: 07-20-2018 Lipid panel [facility] [email or web address] [employer] Start: 07-01-2018 Pneumococcal 0-64 ye ars Vaccine (2 - PPSV23 if available, else PCV20) Pneumococcal 0-64 years Vaccine (2 - PPSV23 if available, else PCV20) [facility] Start: 07-01-2018 Pneumococcal 0-64 ye ars Vaccine (2 - PPSV23 or PCV20) Pneumococcal 0-64 years Vaccine (2 - PPSV23 or PCV20) [facility] Start: 2017 Shingles Vaccine (1 of 2) Shingles V accine (1 of 2) [facility] Start: 2012 Screening for malign ant neoplasm of colon [facility] Start: 06-15-2012 Hemoglobin A1c measurement A1C test (Diabetic or Prediabetic) [facility] Start: 1997 Screening for malign ant neoplasm of cervix [facility] Start: 1988 Screening for malign ant neoplasm of cervix [facility] Start: 1986 Hepatitis B vaccine (1 of 3 - Risk 3-dose series) Hepatitis B vaccine (1 of 3 - Risk 3-dose series) [facility] Start: 1985 Diabetic microalbumi gabo test Diabetic microalbuminuria test [employer] Phone: Start: 1985 Glaucoma screening Diabetic retinal exam [facility] Start: 1985 Hepatitis C screening Hepatitis C sc reen [facility] [employer] Start: 1985 Urine screening for protein Diabetic Alb to Cr ratio (uACR) test [facility] Start: 1982 HIV screening HIV screen [facility] [employer] Start: 1979 Depression Monitoring Depression Mon itoring [facility] Start: 1977 Diabetic foot examination Diabetic f oot exam [facility] Start: 1977 Diabetic retinal exam Diabetic retin al exam [employer] Phone: Start: 1973 Pneumococcal 0-64 ye ars Vaccine (1 of 2 - PPSV23) Pneumococcal 0-64 years Vaccine (1 of 2 - PPSV23) [employer] Phone: Start: 01-23-1968 COVID-19 Vaccine (#1) COVID-19 Vacci ne (#1) [facility] Start: 1967 Hepatitis B vaccine (1 of 3 - 3-dose series) Hepatitis B vaccine (1 of 3 - 3-dose series) [facility] Start: 1967 Hepatitis C screening Hepatitis C sc reen [employer] Phone: End: 12-19-2022 Hemoglobin A1c/Hemoglobin.total in Blood [employer] Phone: Comment on above: Once for 1 Occurrenc es starting 12/19/2022 until 12/19/2022 Payers Date Payer Category Payer Private Health Insurance [id number] 2019 Unknown [id number] 2014 Unknown [id number] 1967 Unknown [id number] 2.16.8 [id number] 1967 Unknown [id number] 2.16.8 [id number] 1967 Unknown [id number] 2.16.8 [id number] 1967 Unknown [id number] 2.16.8 [id number] 1967 Unknown [id number] 2.16.84 [id number] 1967 Unknown [id number] 2.16.84 [id number] 1967 Unknown [id number] 2.16.84 [id number] 1967 Unknown [id number] 1967 Unknown [id number] Social History Date Type Detail Facility Start: 07-19-2017 End: 01-23-2018 Tobacco smoking status NHIS Never smoker [facility] Start: 07-19-2017 End: 01-23-2018 Tobacco use and exposure Never used [employer] Start: 01-23-2018 Alcohol intake 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 alcohol (finding) [employer] Phone: Start: 1965 Sex Assigned At Not on file [employer] Phone: Start: 01-25-2019 History of Social function [facility] Start: 01-25-2019 [facility] Evaluation note Note Date & Type Note Facility Evaluation note Diagnosis Mild intermittent asthma without complication Unspecified asthma documented in this encounter [employer] Phone: Evaluation note Note Date & Type Note Facility Evaluation note Diagnosis Age-related osteoporosis without current pathological fracture Senile osteoporosis documented in this encounter [facility] Summary Purpose Family History No Family History Records FoundNo Family History Records FoundNo Family History Records FoundNo Family History Records Found Advance Directives No Advanced Directives Records FoundDocuments on File Type Date Recorded Patient Medical Lab Specialist Expl anation ACP-Advance Directive ACP-Power of Ad Operations Associate Latest Code Status on File Code Status [...] AXIAL SKELETON Tyler Ramey MD [address] [place] [address] Referral ID Status Reason Start Date Expiration Date V isits Requested Visits Authorized [id number] Pending Review 05/24/2023 05/23/2024 1 1 Additional Source Comments INFORMATION SOURCE (unrecogn ized section and content) DATE CREATED AUTHOR 11/22/2017 [facility] DATE CREATED AUTHOR AUTHOR'S ORGANIZ ATION 05/15/2023 [facility] DATE CREATED AUTHOR AUTHOR'S ORGANIZ ATION 07/18/2023 [facility] DATE CREATED AUTHOR AUTHOR'S ORGANIZ ATION 12/22/2023 [facility] dical Specialists [employer] Care Teams (unrecognized sec tion and content) Linux Admin Relationship Specialty Start Date End Date Jeanine Whitlock [facility] [address] [place], [place] [phone] PCP - General 04/16/16 Linux Admin Relationship Specialty Start Date End Date Jeanine Whitlock [address] [place] [address] PCP - General 04/16/16 Reason for Visit (unrecogniz ed section and content) Specialty Diagnoses / Procedures Referred By Contac t Referred To Contact Radiology Diagnoses Age-related osteoporosis without current pathological fracture Procedures DEXA BONE DENSITY 2 SITES DEXA BONE DENSITY AXIAL SKELETON Tyler Ramey MD [address] [place] [address] Referral ID Status Reason Start Date Expiration Date V isits Requested Visits Authorized [id number] Pending Review 05/24/2023 05/23/2024 1 1 FOR [...] BE BASED ON THE PRIMARY CLINICAL RECORDS. [employer] [facility]. provides no warranty or guarantee of the accuracy or completeness of information in this document.
[2024-01-17] MEDS: ENOXAPARIN SODIUM 40 MG/0.4 ML SYRINGE SUBQ (08:58)
[2024-01-17] MEDS: DULOXETINE HCL 60 MG CAPSULE.DR 120 MG PO (08:59)
[2024-01-17] MEDS: PREGABALIN 75 MG CAPSULE PO (08:59)
[2024-01-17] MEDS: ASCORBIC ACID 500 MG TABLET 1000 MG PO (08:59)
[2024-01-17] MEDS: CALCIUM CARBONATE 600 MG TABLET PO (08:59)
[2024-01-17] MEDS: ASPIRIN 81 MG TABLET.DR PO (08:59)
[2024-01-17] MEDS: CANAGLIFLOZIN 100 MG TABLET PO (08:59)
[2024-01-17] MEDS: MONTELUKAST SODIUM 10 MG TABLET PO (08:59)
[2024-01-17] MEDS: ARIPIPRAZOLE 5 MG TABLET PO (09:00)
[2024-01-17] MEDS: MULTIVITAMIN TABLET 1 TAB PO (09:00)
[2024-01-17] MEDS: CHLORTHALIDONE 25 MG TABLET 50 MG PO (09:00)
[2024-01-17] MEDS: METFORMIN HCL 500 MG TAB.ER.24H 1000 MG PO (09:00)
[2024-01-17] MEDS: ZINC GLUCONATE 50 MG TABLET PO (09:00)
[2024-01-17] MEDS: FOLIC ACID/VIT B6/VIT B12 TABLET 1 TAB PO (09:00)
[2024-01-17] MEDS: MELOXICAM 7.5 MG TABLET 15 MG PO (09:01)
[2024-01-17 09:12] VITALS: BP 125/72; PULSE 68; TEMP 36.7; O2SAT 95
[2024-01-17 10:00] VITALS: O2SAT 92
--- NOTE | 2024-01-17 11:25 | SWNOTE1 ---
Pt getting up to use the restroom. SW to check back later to complete assessment.
--- NOTE | 2024-01-17 14:14 | SWNOTE1 ---
SW met with pt to discuss dc needs. Pt lives at home alone. She is having friends assist as needed and they are making and delivering food to her. She is borrowing a knee scooter and has a walker as well. Pt plans on scooting up the stairs to get in to her home, once she is in it is 1 story. At this time pt denies discharge needs. SW to follow as needed.
== END 2024-01-17 14:28 | disposition home or self-care (01) ==
LOC: SURGOUT 01-17 08:38 → MS 01-17 08:38
PROVIDERS: Anesthesiology; Podiatrist Foot & Ankle Surgery; Admitting Provider Family Medicine; Visit Provider Family Medicine
PROC: (CPT 1480; principal; 2024-01-16 08:30)
DX: M20.12 Hallux valgus (acquired), left foot (principal); M20.22 Hallux rigidus, left foot; I95.9 Hypotension, unspecified; M19.90 Unspecified osteoarthritis, unspecified site; J45.909 Unspecified asthma, uncomplicated; E11.9 Type 2 diabetes mellitus without complications; G47.00 Insomnia, unspecified; Z79.899 Other long term (current) drug therapy; E03.9 Hypothyroidism, unspecified; I10 Essential (primary) hypertension; F41.9 Anxiety disorder, unspecified; F32.A Depression, unspecified; F43.10 Post-traumatic stress disorder, unspecified
CPT/HCPCS: 28750; 36415; 73630; 76000; 80048; 82948; 85025; 94667; 94668; 94761; 96365; 96366; 96372; 97162; C1713; G0378; J0131; J0665; J0690; J1100; J1650; J1885; J2250; J2371; J2405; J2599; J2704; J3010

== ENCOUNTER 2024-02-05 10:15 | Outpatient (OUT) | payer OTHER, SELFPAY ==
--- NOTE | 2024-02-05 | XR_ITS ---
The [address] [address] Patient Name: AISHWARYA DUNN MRN: [id number] date: 1965 Sex: F Assigned Patient Location: Current Patient Location: Accession/Order Number: [id number] Exam Date: 02/05/2024 10:15 Report Date: 02/06/2024 06:40 At the request of: ANA SCHUSTER Procedure: XR foot LT min 3V PROCEDURE: XR foot LT min 3V HISTORY: LEFT FOOT PAIN COMPARISON: XR foot left 01/16/2024 FINDINGS: BONES:Prior mechanical fusion the first metatarsophalangeal joint with dorsal plate and screws. No hardware fracture loosening. Prominent degenerative enthesopathic spurring of the calcaneus. SOFT TISSUES:Mild distal dorsal soft tissue swelling. EFFUSION:None visible. OTHER: Negative. XR/XR foot LT min 3V IMPRESSION: 1. Stable surgical changes without evidence of hardware failure or change in alignment. 2. Stable degenerative changes. Electronically authenticated by: JACKSON BAUM Date: 02/06/2024 06:40
--- OUTSIDE RECORDS SUMMARY | 2024-02-05 10:30 | XMS_ITS | CCD ---
Author Organization [facility] ion Partnership [facility] Care Team Providers Care Facilities Administrator Name Role Phone RINE, JEANINE L Unavailable Unavailable KABOUR, AMEER Unavailable Unavailable AHMAD, SHOWKAT Unavailable Unavailable KAMIREDDY, ADIREDDY Unavailable Unavailable Rine, Jeanine L Primary Care Provider [phone] Rine, Jeanine L Primary Care Provider [phone] POLO DIAZ Referring Unavailable RINE, JEANINE L Primary Care Unavailable RINE, JEANINE L Referring Unavailable RINE, JEANINE L Primary Care Unavailable RAMEY, TYLER Referring Unavailable RINE, JEANINE L Primary Care Unavailable RINE, JEANINE L Primary Care Unavailable RAMEY, TYLER Referring Unavailable POLO DIAZ Attending Unavailable RINE, JEANINE L Attending Unavailable POLO DIAZ Attending Unavailable RINE, JEANINE L Attending Unavailable RINE, JEANINE L Attending Unavailable RINE, JEANINE L Referring Unavailable Allergies Allergy Classification Reported Allergen(s) Allergy Type Date of Onset Reaction(s) Facility Unclassified (1 source) Iodides Propensity to adverse reactions to drug 07-14-2012 [email or web address] Work Phone: Unclassified (1 source) Shellfish-Derive d Products Propensity to adverse reactions to drug 07-21-2012 [email or web address] (2 sources) Seafood Propensity to adverse reactions to drug 07-21-2012 [facility] (2 sources) Iodides Propensity to adverse reactions to drug 07-14-2012 [facility] Work Phone: Medications Current Medications Medication Drug [...] Bernardo Squires MD 07/17/23 Final result Normal [facility] DXA Bone [Mass/Area] Bone de nsityon 07-17-2023 Some evidence of elevated bone mineral density [facility] RIS CONSOLIDATED DEXA BONE DENSITY 2 [...] density 1.419 g/sq cm. T score 3.3. [facility] RIS CONSOLIDATED Bernardo Squires MD - [...] Some evidence of elevated bone mineral density [facility] DXA Bone [Mass/Area] Bone de nsityOrdered By: Bernardo Shaw on 07-17-2023 [facility] Work Phone: DXA Bone [Mass/Area] Bone de nsityon 07-15-2023 Radiology Study observation (narrative) [facility] BI MAMMOGRAM SCREENING TOMOS YNTHESIS BILATERALon 05-24-2023 [...] IS VERY IMPORTANT TO YOUR HEALTH. THE [employer] GUIDELINES RECOMMEND THAT WOMEN 40 [...] Not Available Comment on above: Order Comment: [facility] CBC with Diffon 12-27-2022 Abs. Basophil 0.06 k/uL Normal 0.00-0.20 [facility] Comment on above: Performed By: #### C DP #### [facility] [address] [place] [address] Dr. Lazar, [facility] Objective C Developer: Gerson Barton MD Abs.Imm.Granulocyte 0.08 k/uL Normal 0.00-0.30 [facility] Comment on above: Performed By: #### C DP #### [address] Lazar, [facility] Objective [employer] Developer: Gerson Barton MD Abs.Neutrophil (Seg) 6.19 k/uL Normal 1.50-8.10 [facility] Comment on above: Performed By: #### C DP #### [address] [place] [id number] [employer] Developer: Gerson Barton MD Basophils/100 WBC (Bld) 1 % Normal 0-2 [facility] Comment on above: Performed By: #### C DP #### [address] Lazar, [facility] Objective [employer] Developer: Gerson Barton MD Eosinophils (Bld) [#/Vol] 0.12 10*3/uL Normal 0.00-0.44 [facility] Comment on above: Performed By: #### C DP #### [address] Lazar, [facility] Objective [employer] Developer: Gerson Barton MD Eosinophils/100 WBC (Bld) 1 % Normal 1-4 [facility] Comment on above: Performed By: #### C DP #### [address] Lazar, [facility] Objective [employer] Developer: Gerson Barton MD Erythrocyte distribution width (RBC) [Ratio] 14.0 % Normal 11.8-14.4 [facility] Comment on above: Performed By: #### C DP #### [address] Lazar, [facility] Objective [employer] Developer: Gerson Barton MD Hematocrit (Bld) [Volume fraction] 44.1 % Normal 36.3-47.1 [facility] Comment on above: Performed By: #### C DP #### [facility] [address] Lazar, [place] [address] Objective [employer] Developer: Gerson Barton MD Hemoglobin (Bld) [Mass/Vol] 14.5 g/dL Normal 11.9-15.1 [facility] Comment on above: Performed By: #### C DP #### [facility] [address] Lazar, [facility] Objective C Developer: Gerson Barton MD Immature granulocytes/100 WBC (Bld) 1 % High 0 [facility] Comment on above: Performed By: #### C DP #### [facility] [address] Lazar, [facility] Objective C Developer: Gerson Barton MD Lymphocytes (Bld) [#/Vol] 3.02 10*3/uL Normal 1.10-3.70 [facility] Comment on above: Performed By: #### C DP #### [address] Lazar, [facility] Objective [employer] Developer: Gerson Barton MD Lymphocytes/100 WBC (Bld) 29 % Normal 24-43 [facility] Comment on above: Performed By: #### C DP #### [facility] [address] Lazar, [place] [address] Objective [employer] Developer: Gerson Barton MD MCH (RBC) [Entitic mass] 29.2 pg Normal 25.2-33.5 [facility] Comment on above: Performed By: #### C DP #### [facility] [address] Lazar, [facility] Objective C Developer: Gerson Barton MD MCHC (RBC) [Mass/Vol] 32.9 g/dL Normal 28.4-34.8 [facility] Comment on above: Performed By: #### C DP #### [facility] [address] Lazar, [facility] Objective C Developer: Gerson Barton MD MCV (RBC) [Entitic vol] 88.7 fL Normal 82.6-102.9 [facility] Comment on above: Performed By: #### C DP #### [facility] [address] Lazar, [place] [id number] Objective [employer] Developer: Gerson Barton MD Monocytes (Bld) [#/Vol] 0.98 10*3/uL Normal 0.10-1.20 [facility] Comment on above: Performed By: #### C DP #### [address] [place] [id number] Objective [employer] Developer: Gerson Barton MD Monocytes/100 WBC (Bld) 9 % Normal 3-12 [facility] Comment on above: Performed By: #### C DP #### [address] Lzaar, [facility] Objective C Developer: Gerson Barton MD Neutrophil (Seg) 59 % Normal 36-65 [facility] Comment on above: Performed By: #### C DP #### [address] Lazar, [facility] Objective C Developer: Gerson Barton MD NRBC Automated 0.0 per 100 WBC Normal 0.0 [facility] Comment on above: Performed By: #### C DP #### [address] Lazar, [facility] Objective [employer] Developer: Gerson Barton MD Platelet mean volume (Bld) [Entitic vol] 9.3 fL Normal 8.1-13.5 [facility] Comment on above: Performed By: #### C DP #### [address] Lazar, [place] [id number] Objective [employer] Developer: Gerson Barton MD Platelets (Bld) [#/Vol] 365 10*3/uL Normal 138-453 [facility] Comment on above: Performed By: #### C DP #### [address] Lazar, [place] [id number] [employer] Developer: Gerson Barton MD RBC (Bld) [#/Vol] 4.97 10*6/uL Normal 3.95-5.11 [facility] Comment on above: Performed By: #### C DP #### [address] Lazar, [place] [id number] Objective [employer] Developer: Gerson Barton MD WBC (Bld) [#/Vol] 10.5 10*3/uL Normal 3.5-11.3 [facility] Comment on above: Performed By: #### C DP #### [address] [place] [address] Objective [employer] Developer: Gerson Barton MD Hemoglobin A1Con 12-20-2022 Glucose [Mass/Vol] 126 mg/dL Normal [facility] Comment on above: Result Comment: The ADA and AACC recommend providing the estimated average glucose result to permit better patient understanding of their HBA1c result. Performed By: #### C P, CDP, TSHX #### [address] Lazar, [facility] Objective C Developer: Gerson Barton MD #### URNMAB, FT4, GLYHGB, VD25, LIPR #### [facility] [employer] [facility] [place], [place] [id number] Objective C Developer: Asad Draper MD HbA1c (Bld) [Mass fraction] 6.0 % Normal 4.0-6.0 [facility] Comment on above: Performed By: #### C P, CDP, TSHX #### [address] [place] [address] Objective C Developer: Gerson Barton MD #### URNMAB, FT4, GLYHGB, VD25, LIPR #### [place] [address] [place], [place] 0656008 Objective C Developer: Asad Draper MD Lipid Profileon 12-20-2022 Cholesterol [Mass/Vol] 115 mg/dL Normal <200 [facility] Comment on above: Result Comment: Cholesterol Guidelines: <200 Desirable 200-240 Borderline >240 Undesirable Performed By: #### C P, CDP, TSHX #### [address] [place], [place] 6651583 Objective [employer] Developer: Gerson Barton MD #### URNMAB, FT4, GLYHGB, VD25, LIPR #### [facility] [address] [place], [place] [id number] Objective C Developer: Asad Draper MD Cholesterol in HDL [Mass/Vol] 49 mg/dL Normal >40 [facility] Comment on above: Result Comment: HDL Guidelines: <40 Undesirable 40-59 Borderline >59 Desirable Performed By: #### C P, CDP, TSHX #### [address] [place] [address] Objective C Developer: Gerson Barton MD #### URNMAB, FT4, GLYHGB, VD25, LIPR #### [facility] [employer] [facility] [place], [place] [id number] Objective C Developer: Asad Draper MD Cholesterol in LDL [Mass/Vol] 32 mg/dL Normal 0-130 [facility] Comment on above: Result Comment: LDL Guidelines: <100 Desirable 100-129 Near to/above Desirable 130-159 Borderline >159 Undesirable Direct (measured) LDL and calculated LDL are not interchangeable tests. Performed By: #### C P, CDP, TSHX #### [address] [place] [address] Objective C Developer: Gerson Barton MD #### URNMAB, FT4, GLYHGB, VD25, LIPR #### [facility] [employer] [facility] [place], [place] [phone] Objective C Developer: Asad Draper MD Cholesterol.total/Ch olesterol in HDL [Mass ratio] 2.3 {ratio} Normal <5 [facility] Comment on above: Performed By: #### C P, CDP, TSHX #### [address] [place] [id number] [employer] Developer: Gerson Barton MD #### URNMAB, FT4, GLYHGB, VD25, LIPR #### [facility] [employer] [facility] [place], [place] [id number] Objective C Developer: Asad Draper MD Triglyceride [Mass/Vol] 171 mg/dL High <150 [facility] Comment on above: Result Comment: Triglyceride Guidelines: <150 Desirable 150-199 Borderline 200-499 High >499 Very high Based on AHA Guidelines for fasting triglyceride, March 2012. Performed By: #### C P, CDP, TSHX #### [address] [place] [id number] [employer] Developer: Gerson Barton MD #### URNMAB, FT4, GLYHGB, VD25, LIPR #### [place] [address] [place], [place] [id number] Objective C Developer: Asad Draper MD Microalb.,Random Uron 2022 Microalb/Creat Ratio 178 mcg/mg creat High <25 [facility] Comment on above: Performed By: #### C P, CDP, TSHX #### [address] [place] [id number] [employer] Developer: Gerson Barton MD #### URNMAB, FT4, GLYHGB, VD25, LIPR #### [place] [address] [place], [place] [id number] Objective C Developer: Asad Draper MD Microalbumin conc. 764 mg/L High <21 [facility] Comment on above: Performed By: #### C P, CDP, TSHX #### [address] [place], [place] [phone] Objective C Developer: Gerson Barton MD #### URNMAB, FT4, GLYHGB, VD25, LIPR #### [place] [address] [place] [address] Objective C Developer: Asad Draper MD Creatinine [Mass/Vol] 428.7 mg/dL High 28.0-217.0 [facility] Comment on above: Performed By: #### C P, CDP, TSHX #### [address] Lazar, [place] [id number] Objective C Developer: Gerson Barton MD #### URNMAB, FT4, GLYHGB, VD25, LIPR #### [place] [address] [place], [place] 6987108 Objective C Developer: Asad Draper MD Thyroxine, Freeon 12-202022 Thyroxine, Free 1.5 ng/dL Normal 0.9-1.7 [facility] Comment on above: Performed By: #### C P, CDP, TSHX #### [address] [place]azar, [place] 0758383 Objective C Developer: Gerson Barton MD #### URNMAB, FT4, GLYHGB, VD25, LIPR #### [place] [address] [place] [address] Objective C Developer: Asad Draper MD Vitamin D 25 OHon 9 Vitamin D 25 [place] 59.0 ng/mL Normal >29.9 [facility] Comment on above: Result Comment: Reference Range: Vitamin D status Range Deficiency <20 ng/mL Mild Deficiency 20-30 ng/mL Sufficiency 30-100 ng/mL Toxicity >100 ng/mL Performed By: #### C P, CDP, TSHX #### [address] [place] [address] Objective C Developer: Gerson Barton MD #### URNMAB, FT4, GLYHGB, VD25, LIPR #### [facility] [address] [place] [address] Objective C Developer: Asad Draper MD CBC with Auto Differentialon 12-19-2022 Basophils (Bld) [#/Vol] 0.05 10*3/uL [facility] Basophils/100 WBC (Bld) 0 % 0 - 2 % [facility] Eosinophils (Bld) [#/Vol] 0.07 10*3/uL [facility] Eosinophils/100 WBC (Bld) 1 % 1 - 4 % [facility] Erythrocyte distribution width (RBC) [Ratio] 13.8 % 11.8 - 14.4 % [facility] Hematocrit (Bld) [Volume fraction] 47.2 % High 36.3 - 47.1 % [facility] Hemoglobin (Bld) [Mass/Vol] 15.9 g/dL High 11.9 - 15.1 g/dL [facility] Immature granulocytes (Bld) [#/Vol] 0.09 10*3/uL [facility] Immature granulocytes/100 WBC (Bld) 1 % High 0 [facility] Interpretation and review of laboratory results Abnormal [facility] Lymphocytes/100 WBC (Bld) 16 % Low 24 - 43 % [facility] Lymphocytes/100 WBC (Bld) 1.85 % [facility] MCH (RBC) [Entitic mass] 28.8 pg 25.2 - 33.5 pg [facility] MCHC (RBC) [Mass/Vol] 33.7 g/dL 28.4 - 34.8 g/dL [facility] MCV (RBC) [Entitic vol] 85.5 fL 82.6 - 102.9 fL [facility] Monocytes/100 WBC (Bld) 8 % 3 - 12 % [facility] Monocytes/100 WBC (Bld) 0.89 % [facility] Neutrophils/100 WBC (Bld) 74 % High 36 - 65 % [facility] Nucleated RBC/100 WBC (Bld) [Ratio] 0.0 % 0.0 per 100 WBC [facility] Platelet mean volume (Bld) [Entitic vol] 9.0 fL 8.1 - 13.5 fL [facility] Platelets (Bld) [#/Vol] 335 10*3/uL [facility] RBC (Bld) [#/Vol] 5.52 10*6/uL High 3.95 - 5.1 1 m/uL [facility] Segmented neutrophils/100 WBC (Bld) 8.61 % High [facility] WBC other (Bld) [#/Vol] 11.6 High [facility] CBC with Diffon 12-19-2022 Abs. Basophil 0.05 k/uL Normal 0.00-0.20 [facility] Comment on above: Performed By: #### C P, CDP, TSHX #### [facility] [address] [place] [address] Dr. [place] [id number] Objective C Developer: Gerson Barton MD #### YESY, FT4, GLYHGB, VD25, LIPR #### [place] [id number] Objective C Developer: Asad Draper MD Abs.Imm.Granulocyte 0.09 k/uL Normal 0.00-0.30 [facility] Comment on above: Performed By: #### C P, CDP, TSHX #### [address] [place] [id number] Objective C Developer: Gerson Barton MD #### YESY, FT4, GLYHGB, VD25, LIPR #### [address] [id number] Objective C Developer: Asad Draper MD Abs.Neutrophil (Seg) 8.61 k/uL High 1.50-8.10 [facility] Comment on above: Performed By: #### C P, CDP, TSHX #### [facility] [address] [place] [id number] Objective C Developer: Gerson Barton MD #### URNMAB, FT4, GLYHGB, VD25, LIPR #### [address] [id number] Objective C Developer: Asad Draper MD Basophils/100 WBC (Bld) 0 % Normal 0-2 [facility] Comment on above: Performed By: #### C P, CDP, TSHX #### [address] [place] 3163283 Objective C Developer: Gerson Barton MD #### URNMAB, FT4, GLYHGB, VD25, LIPR #### [place] [address] Objective C Developer: Asad Draper MD Eosinophils (Bld) [#/Vol] 0.07 10*3/uL Normal 0.00-0.44 [facility] Comment on above: Performed By: #### C P, CDP, TSHX #### [address] [place] [id number] Objective C Developer: Gerson Barton MD #### URNMAB, FT4, GLYHGB, VD25, LIPR #### [place] [id number] Objective C Developer: Asad Draper MD Eosinophils/100 WBC (Bld) 1 % Normal 1-4 [facility] Comment on above: Performed By: #### C P, CDP, TSHX #### [address] [place] [id number] Objective [employer] Developer: Gerson Barton MD #### URNMAB, FT4, GLYHGB, VD25, LIPR #### [address] [id number] Objective C Developer: Asad Draper MD Erythrocyte distribution width (RBC) [Ratio] 13.8 % Normal 11.8-14.4 [facility] Comment on above: Performed By: #### C P, CDP, TSHX #### [address] [place], [place] [phone] Objective C Developer: Gerson Barton MD #### URNMAB, FT4, GLYHGB, VD25, LIPR #### [address] [address] Objective C Developer: Asad Draper MD Hematocrit (Bld) [Volume fraction] 47.2 % High 36.3-47.1 [facility] Comment on above: Performed By: #### C P, CDP, TSHX #### [address] [place] [address] Objective C Developer: Gerson Barton MD #### URNMAB, FT4, GLYHGB, VD25, LIPR #### [address] [id number] Objective C Developer: Asad Draper MD Hemoglobin (Bld) [Mass/Vol] 15.9 g/dL High 11.9-15.1 [facility] Comment on above: Performed By: #### C P, CDP, TSHX #### [address] [place], [place] 2695483 Objective C Developer: Gerson Barton MD #### URNMAB, FT4, GLYHGB, VD25, LIPR #### [address] [id number] Objective C Developer: Asad Draper MD Immature granulocytes/100 WBC (Bld) 1 % High 0 [facility] Comment on above: Performed By: #### C P, CDP, TSHX #### [address] [place], [place] 0132083 Objective C Developer: Gerson Barton MD #### URNMAB, FT4, GLYHGB, VD25, LIPR #### [address] [address] Objective C Developer: Asad Draper MD Lymphocytes (Bld) [#/Vol] 1.85 10*3/uL Normal 1.10-3.70 [facility] Comment on above: Performed By: #### C P, CDP, TSHX #### [facility] [address] [place] [address] Dr. [place], [place] [id number] Objective C Developer: Gerson Barton MD #### URNMAB, FT4, GLYHGB, VD25, LIPR #### [address] [address] Objective C Developer: Asad Draper MD Lymphocytes/100 WBC (Bld) 16 % Low 24-43 [facility] Comment on above: Performed By: #### C P, CDP, TSHX #### [address] [place] [id number] Objective C Developer: Gerson Barton MD #### URNMAB, FT4, GLYHGB, VD25, LIPR #### [place] [address] Objective C Developer: Asad Draper MD MCH (RBC) [Entitic mass] 28.8 pg Normal 25.2-33.5 [facility] Comment on above: Performed By: #### C P, CDP, TSHX #### [facility] [address] [place] [address] Dr. [place] [id number] Objective C Developer: Gerson Barton MD #### URNMAB, FT4, GLYHGB, VD25, LIPR #### [place] [address] [place] [address] Objective C Developer: Asad Draper MD MCHC (RBC) [Mass/Vol] 33.7 g/dL Normal 28.4-34.8 [facility] Comment on above: Performed By: #### C P, CDP, TSHX #### [facility] [address] [place] [address] Dr. [place] [id number] Objective C Developer: Gerson Barton MD #### URNMAB, FT4, GLYHGB, VD25, LIPR #### [address] [id number] Objective C Developer: Asad Draper MD MCV (RBC) [Entitic vol] 85.5 fL Normal 82.6-102.9 [facility] Comment on above: Performed By: #### C P, CDP, TSHX #### [address] [place] [address] Objective C Developer: Gerson Barton MD #### URNMAB, FT4, GLYHGB, VD25, LIPR #### [address] [address] Objective C Developer: Asad Draper MD Monocytes (Bld) [#/Vol] 0.89 10*3/uL Normal 0.10-1.20 [facility] Comment on above: Performed By: #### C P, CDP, TSHX #### [address] [place] [id number] Objective C Developer: Gerson Barton MD #### URNMAB, FT4, GLYHGB, VD25, LIPR #### [address] [id number] Objective C Developer: Asad Draper MD Monocytes/100 WBC (Bld) 8 % Normal 3-12 [facility] Comment on above: Performed By: #### C P, CDP, TSHX #### [address] [place] [address]83 Objective C Developer: Greson Barton MD #### URNMAB, FT4, GLYHGB, VD25, LIPR #### [address] [id number] Objective C Developer: Asad Draper MD Neutrophil (Seg) 74 % High 36-65 [facility] Comment on above: Performed By: #### C P, CDP, TSHX #### [facility] [address] [place] [address] Dr. [place], [place] [phone] Objective C Developer: Gerson Barton MD #### URNMAB, FT4, GLYHGB, VD25, LIPR #### [address] [id number] Objective C Developer: Asad Draper MD NRBC Automated 0.0 per 100 WBC Normal 0.0 [facility] Comment on above: Performed By: #### C P, CDP, TSHX #### [address] [place] [address] Objective C Developer: Gerson Barton MD #### URNMAB, FT4, GLYHGB, VD25, LIPR #### [address] [address] Objective C Developer: Asad Draper MD Platelet mean volume (Bld) [Entitic vol] 9.0 fL Normal 8.1-13.5 [facility] Comment on above: Performed By: #### C P, CDP, TSHX #### [address] [place] [id number] Objective C Developer: Gerson Barton MD #### URNMAB, FT4, GLYHGB, VD25, LIPR #### [address] [id number] Objective C Developer: Asad Draper MD Platelets (Bld) [#/Vol] 335 10*3/uL Normal 138-453 [facility] Comment on above: Performed By: #### C P, CDP, TSHX #### [address] [place] [address] Objective C Developer: Gerson Barton MD #### URNMAB, FT4, GLYHGB, VD25, LIPR #### [address] [place] [address] Objective C Developer: Asad Draper MD RBC (Bld) [#/Vol] 5.52 10*6/uL High 3.95-5.11 [facility] Comment on above: Performed By: #### C P, CDP, TSHX #### [address] [place] [address] Objective C Developer: Gerson Barton MD #### URNMAB, FT4, GLYHGB, VD25, LIPR #### [address] [address] Objective C Developer: Asad Draper MD WBC (Bld) [#/Vol] 11.6 10*3/uL High 3.5-11.3 [facility] Comment on above: Performed By: #### C P, CDP, TSHX #### [address] [place] [id number] Objective C Developer: Gerson Barton MD #### URNMAB, FT4, GLYHGB, VD25, LIPR #### [address] [address] Objective C Developer: Asad Draper MD Comp Metabolic Profon 2022 Albumin [Mass/Vol] 5.1 g/dL Normal 3.5-5.2 [facility] Comment on above: Performed By: #### C P, CDP, TSHX #### [address] [place] [address] Objective C Developer: Gerson Barton MD #### URNMAB, FT4, GLYHGB, VD25, LIPR #### [address] [id number] Objective C Developer: Asad Draper MD Albumin/Glob Ratio 1.6 Normal 1.0-2.5 [facility] Comment on above: Performed By: #### C P, CDP, TSHX #### [facility] [address] [place], [place] [id number] Objective C Developer: Gerson Barton MD #### URNMAB, FT4, GLYHGB, VD25, LIPR #### [address] [place], [place] [id number] Objective C Developer: Asad Draper MD Alkaline Phos 74 U/L Normal 35-104 [facility] Comment on above: Performed By: #### C P, CDP, TSHX #### [facility] [address] [place] [address] Objective C Developer: Gerson Barton MD #### URNMAB, FT4, GLYHGB, VD25, LIPR #### [address] [id number] Objective C Developer: Asad Draper MD ALT [Catalytic activity/Vol] 44 U/L High 5-33 [facility] Comment on above: Performed By: #### C P, CDP, TSHX #### [address] [place] [address] Objective C Developer: Gerson Barton MD #### URNMAB, FT4, GLYHGB, VD25, LIPR #### [address] [id number] Objective C Developer: Asad Draper MD Anion gap [Moles/Vol] 14 mmol/L Normal 9-17 [facility] Comment on above: Performed By: #### C P, CDP, TSHX #### [facility] [address] [place] [address] Objective C Developer: Gerson Barton MD #### URNMAB, FT4, GLYHGB, VD25, LIPR #### [address] [id number] Objective C Developer: Asad Draper MD AST [Catalytic activity/Vol] 27 U/L Normal <32 [facility] Comment on above: Performed By: #### C P, CDP, TSHX #### [address] [place] [address] Objective C Developer: Gerson Barton MD #### URNMAB, FT4, GLYHGB, VD25, LIPR #### [address] [id number] Objective C Developer: Asad Draper MD Bilirubin [Mass/Vol] 1.7 mg/dL High 0.3-1.2 [facility] Comment on above: Performed By: #### C P, CDP, TSHX #### [address] [place] [address] Objective C Developer: Gerson Barton MD #### URNMAB, FT4, GLYHGB, VD25, LIPR #### [address] [id number] Objective C Developer: Asad Darper MD BUN/CRE Ratio 20 Normal 9-20 [facility] Comment on above: Performed By: #### C P, CDP, TSHX #### [address] [place] [address] Objective C Developer: Gerson Barton MD #### URNMAB, FT4, GLYHGB, VD25, LIPR #### [address] [id number] Objective C Developer: Asad Draper MD Calcium [Mass/Vol] 10.5 mg/dL High 8.6-10.4 [facility] Comment on above: Performed By: #### C P, CDP, TSHX #### [address] [place] [address] Objective C Developer: Gerson Barton MD #### URNMAB, FT4, GLYHGB, VD25, LIPR #### [address] [address] Objective C Developer: Asad Draper MD Chloride [Moles/Vol] 94 mmol/L Low 98-107 [facility] Comment on above: Performed By: #### C P, CDP, TSHX #### [facility] [address] [place] [address] [address] [place], [place] [phone] Objective C Developer: Gerson Barton MD #### URNMAB, FT4, GLYHGB, VD25, LIPR #### [address] [address] Objective C Developer: Asad Draper MD CO2 [Moles/Vol] 30 mmol/L Normal 20-31 [facility] Comment on above: Performed By: #### C P, CDP, TSHX #### [address] [place], [place] [phone] Objective C Developer: Gerson Barton MD #### URNMAB, FT4, GLYHGB, VD25, LIPR #### [address] [id number] Objective C Developer: Asad Draper MD Creatinine [Mass/Vol] 0.8 mg/dL Normal 0.5-0.9 [facility] Comment on above: Performed By: #### C P, CDP, TSHX #### [address] [place], [place] [phone] Objective C Developer: Gerson Barton MD #### URNMAB, FT4, GLYHGB, VD25, LIPR #### [address] [id number] Objective C Developer: Asad Draper MD GFR/1.73 sq M.predicted among non-blacks MDRD (S/P/Bld) [Vol rate/Area] mL/min/{1.73_m2} Normal >60 [facility] Comment on above: Result Comment: These [...] By: #### C P, CDP, TSHX #### [address] [place] [id number] Objective C Developer: Gerson Barton MD #### URNMAB, FT4, GLYHGB, VD25, LIPR #### [address] [id number] Objective C Developer: Asad Draper MD Glucose [Mass/Vol] 137 mg/dL High 70-99 [facility] Comment on above: Performed By: #### C P, CDP, TSHX #### [address] [place] [id number] Objective C Developer: Gerson Barton MD #### URNMAB, FT4, GLYHGB, VD25, LIPR #### [address] [id number] Objective C Developer: Asad Draper MD Potassium [Moles/Vol] 4.3 mmol/L Normal 3.7-5.3 [facility] Comment on above: Performed By: #### C P, CDP, TSHX #### [address] [place] [phone] Objective C Developer: Gerson Barton MD #### URNMAB, FT4, GLYHGB, VD25, LIPR #### [address] [address] Objective C Developer: Asad Draper MD Protein [Mass/Vol] 8.2 g/dL Normal 6.4-8.3 [facility] Comment on above: Performed By: #### C P, CDP, TSHX #### [facility] [address] [place] [address] Objective C Developer: Gerson Barton MD #### URNMAB, FT4, GLYHGB, VD25, LIPR #### [address] [place], [place] [phone] Objective C Developer: Asad Draper MD Sodium [Moles/Vol] 138 mmol/L Normal 135-144 [facility] Comment on above: Performed By: #### C P, CDP, TSHX #### [facility] [address] [place] [address] Objective C Developer: Gerson Barton MD #### URNMAB, FT4, GLYHGB, VD25, LIPR #### [address] [place], [place] [phone] Objective C Developer: Asad Draper MD Urea nitrogen [Mass/Vol] 16 mg/dL Normal 6-20 [facility] Comment on above: Performed By: #### C P, CDP, TSHX #### [address] [place] [address] Objective C Developer: Gerson Barton MD #### URNMAB, FT4, GLYHGB, VD25, LIPR #### [address] [place], [place] [phone] Objective C Developer: Asad Draper MD Comprehensive Metabolic Pane [facility] 12-19-2022 Albumin [Mass/Vol] 5.1 g/dL 3.5 - 5.2 g/dL [facility] Albumin/Globulin [Mass ratio] 1.6 {ratio} 1.0 - 2.5 [facility] ALP [Catalytic activity/Vol] 74 U/L 35 - 104 U/L [facility] ALT [Catalytic activity/Vol] 44 U/L High 5 - 33 U/L [facility] Anion gap [Moles/Vol] 14 mmol/L 9 - 17 mmol/L [facility] AST [Catalytic activity/Vol] 27 U/L NINF - 32 U/L [facility] Bilirubin [Mass/Vol] 1.7 mg/dL High 0.3 - 1 .2 mg/dL [facility] Calcium [Mass/Vol] 10.5 mg/dL High 8.6 - 10. 4 mg/dL [facility] Chloride [Moles/Vol] 94 mmol/L Low 98 - 10 7 mmol/L [facility] CO2 [Moles/Vol] 30 mmol/L 20 - 31 mmol/L [facility] Creatinine [Mass/Vol] 0.8 mg/dL 0.5 - 0.9 mg/dL [facility] GFR/1.73 sq M.predicted MDRD (S/P/Bld) [Vol rate/Area] - PINF [facility] Comment on above: These results [...] 137 mg/dL High 70 - 99 mg/dL [facility] Interpretation and review of laboratory results Abnormal [facility] Potassium [Moles/Vol] 4.3 mmol/L 3.7 - 5.3 mmol/L [facility] Protein [Mass/Vol] 8.2 g/dL 6.4 - 8.3 g/dL [facility] Sodium [Moles/Vol] 138 mmol/L 135 - 144 mmol/L [facility] Urea nitrogen [Mass/Vol] 16 mg/dL 6 - 20 mg/dL [facility] Urea nitrogen/Creatinine [Mass ratio] 20 mg/mg 9 - 20 [facility] Lipid Panelon 12-19-2022 Cholesterol [Mass/Vol] 115 mg/dL NINF - 200 mg/dL [facility] Comment on above: Cholesterol Guidelines: <200 Desirable 200-240 Borderline >240 Undesirable Cholesterol in HDL [Mass/Vol] 49 mg/dL 40 - PINF mg/dL [facility] Comment on above: HDL Guidelines: <40 Undesirable 40-59 Borderline >59 Desirable Cholesterol in LDL [Mass/Vol] 32 mg/dL 0 - 130 mg/dL [facility] Comment on above: LDL Guidelines: <100 Desirable 100-129 Near to/above Desirable 130-159 Borderline >159 Undesirable Direct (measured) LDL and calculated LDL are not interchangeable tests. Cholesterol.total/Ch olesterol in HDL [Mass ratio] 2.3 {ratio} NINF - 5 [facility] Interpretation and review of laboratory results Abnormal [facility] Triglyceride [Mass/Vol] 171 mg/dL [facility] mg/dL [facility] Comment on above: Triglyceride Guidelines: <150 Desirable 150-199 Borderline 200-499 High >499 Very high Based on AHA Guidelines for fasting triglyceride, March 2012. [facility] Microalbumin, Uron 3 Albumin DL <= 20 mg/L (U) [Mass/Vol] 764 mg/L [facility] mg/L [facility] Albumin/Creatinine DL <= 20 mg/L (U) [Ratio] 178 High [facility] Creatinine (U) [Mass/Vol] 428.7 mg/dL High 28.0 - 217.0 mg/dL [facility] Interpretation and review of laboratory results Abnormal [facility] T4, Freeon 12-19-2022 Free T4 [Mass/Vol] 1.5 ng/dL 0.9 - 1.7 ng/dL [facility] TSH w/reflex to FT4on 2022 Thyroid Stim. Horm. 6.76 uIU/mL High 0.30-5.00 [facility] Comment on above: Performed By: #### C P, CDP, TSHX #### [facility] [address] [place] [address] Objective C Developer: Gerson Barton MD #### URNMAB, FT4, GLYHGB, VD25, LIPR #### [facility] [employer] [address] [place] [address] Objective C Developer: Asad Draper MD TSH with Reflexon 12-19-2022 Interpretation and review of laboratory results Abnormal [facility] [employer] TSH Qn 6.76 m[IU]/L High [facility] [employer] Vitamin D 25 Hydroxyon 12-19 25-hydroxyvitamin D3 [Mass/Vol] 59.0 ng/mL 29.9 - PINF ng/mL [facility] [employer] Comment on above: Reference Range: Vitamin D status Range Deficiency <20 ng/mL Mild Deficiency 20-30 ng/mL Sufficiency 30-100 ng/mL Toxicity >100 ng/mL [facility] [employer] XR CHEST (2 VW)Ordered By: Ventura Whitlock on 12-08-2020 No acute cardiopulmonary disease. [employer] Phone: EXAMINATION: TWO XRA Y VIEWS OF THE CHEST 12/06/2020 7:41 pm COMPARISON: July 19, 2017. HISTORY: ORDERING SYSTEM PROVIDED HISTORY: Mild intermittent asthma without complication TECHNOLOGIST PROVIDED HISTORY: ASTHMA FINDINGS: No lines or tubes. Normal cardiomediastinal silhouette. The lungs are clear without focal consolidation or pleural effusion. No suspicious pulmonary nodules. No pulmonary edema. No pneumothorax. No acute osseous abnormality. [employer] Phone: Kalpesh, [facility] Incoming Radiant Results From [employer]Scan - 12/08/2020 8:26 PM EDT EXAMINATION: TWO [...] osseous abnormality. IMPRESSION: No acute cardiopulmonary disease. [employer] Phone: [employer] Phone: Discharge Summaryon 07-22-19 18 HIM IP Note OR Attendance Officer Normal [facility] CBCon 07-21-2017 Erythrocyte distribution width Auto Ratio (RBC) 12.9 % Normal 11.8-14.4 [facility] Comment on above: Performed By: #### BECCA MYLES ####[address] [address] Erythrocytes (RBC) 0.0 per 100 WBC Normal 0.0 [facility] Comment on above: Result Comment: [address] [address] Performed By: #### BECCA MYLES ####[address] [address] Erythrocytes (RBC) 4.33 10*6/uL Normal 3.95-5.11 [facility] Comment on above: Performed By: #### BECCA MYLES ####[address] [address] Hematocrit (HCT) 38.1 % Normal 36.3-47.1 [facility] Comment on above: Performed By: #### BECCA MYLES ####[address] [address] Hemoglobin mass conc (Bld) 12.4 g/dL Normal 11.9-15.1 [facility] Comment on above: Performed By: #### VIRGEN MYLESR ####[address] [address] MCH 28.6 pg Normal 25.2-33.5 [facility] Comment on above: Performed By: #### BECCA MYLES ####[address] [address] MCHC mass conc (RBC) 32.5 g/dL Normal 28.4-34.8 [facility] Comment on above: Performed By: #### VIRGEN MYLESR ####[address] [place] [address] MCV 88.0 fL Normal 82.6-102.9 [facility] Comment on above: Performed By: #### BECCA MYLES ####[address] [place] [address] Platelet mean volume (PMV) 9.7 fL Normal 8.1-13.5 [facility] Comment on above: Performed By: #### VIRGEN MYLESR ####[facility] [address] [address] Platelets 198 10*3/uL Normal 138-453 [facility] Comment on above: Performed By: #### BECCA MYLES ####[address] [address] WBC (Leukocytes) 4.5 10*3/uL Normal 3.5-11.3 [facility] Comment on above: Performed By: #### BECCA MYLES ####[address] [address] Comp Metabolic Pr/rfx MGon 0 - Potassium molar conc 3.5 mmol/L Low 3.7-5.3 [facility] Comment on above: Performed By: #### BECCA MYLES ####[address] [address] (cont.) Normal [facility] Comment on above: Result Comment: Aver age GFR for 40-49 years old: 99 mL/min/1.73sq mChronic Kidney Disease: <60 mL/min/1.73sq mKidney failure: <15 mL/min/1.73sq meGFR calculated using average adult body mass. Additional eGFR calculator available at:[email or web address]_[email or web address] [address] Performed By: #### T VU LIPR ####[facility] [address] [place] [address] Alanine aminotransferase (ALT) 15 U/L Normal 5-33 [facility] Comment on above: Performed By: #### David WOMACK LIPR ####[facility]ermanenteOgbaaxvtgejq6856 [place] [address] Albumin 3.9 g/dL Normal 3.5-5.2 [facility] Comment on above: Performed By: #### David WOMACK LIPR ####[facility]enteVbzrsjfbrwsk[address] [place] [address] Albumin/Globulin Ratio 2.1 {ratio} Normal 1.0-2.5 [facility] Comment on above: Performed By: #### David WOMACK LIPR ####[facility]enteVexnmqbpskvu[address] [place] [address] Alkaline Phos 34 U/L Low 35-104 [facility] Comment on above: Performed By: #### David WOMACK LIPR ####[facility]ermanenteCkfwxdumazxy[address] [place] [address] Anion gap 12 mmol/L Normal 9-17 [facility] Comment on above: Performed By: #### David WOMACK LIPR ####[facility] PermanenteSvyogibiwkhl[address] [place] [address] Aspartate aminotransferase (AST) 14 U/L Normal <32 [facility] Comment on above: Performed By: #### David WOMACK LIPR ####[facility] [address] [place] [address] Bilirubin Ql (U) 1.02 mg/dL Normal 0.3-1.2 [facility] Comment on above: Performed By: #### David WOMACK LIPR ####[facility] PermanenteIgjnqkhlmlma[address] [place] [address] Calcium 9.0 mg/dL Normal 8.6-10.4 [facility] Comment on above: Performed By: #### BECCA MYLES ####[facility] [address] [place] [address] Chloride 99 mmol/L Normal 98-107 [facility] Comment on above: Performed By: #### VIRGEN MYLESR ####[facility] [address] [place] [address] CO2 24 mmol/L Normal 20-31 [facility] Comment on above: Performed By: #### BECCA MYLES ####[facility] [address] [place] [address] Creatinine 0.60 mg/dL Normal 0.50-0.90 [facility] Comment on above: Performed By: #### BECCA MYLES ####[facility] [address] [place] [address] eGFR (non-black) mL/min/{1.73_m2} Normal >60 [facility] Comment on above: Performed By: #### BECCA MYLES ####[facility] [address] [place] [address] Glucose mass conc 99 mg/dL Normal 70-99 [facility] Comment on above: Performed By: #### VIRGEN MYLESR ####[facility] [address] [place] [address] Protein 5.8 g/dL Low 6.4-8.3 [facility] Comment on above: Performed By: #### VIRGEN MYLESR ####[facility] [address] [place] [address] Sodium 135 mmol/L Normal 135-144 [facility] Comment on above: Performed By: #### BECCA MYLES ####[address] [place] [address] Urea nitrogen 21 mg/dL High 6-20 [facility] Comment on above: Performed By: #### BECCA MYLES ####[address] [place] [address] BUN/CRE Ratio NOT REPORTED Normal 9-20 [facility] Comment on above: Performed By: #### T BECCA WOMACK ####[address] [place] [address] Staging: NOT REPORTED Normal [facility] Comment on above: Performed By: #### BECCA MYLES ####[address] [place] [address] Magnesiumon 07-21-2017 Magnesium 1.9 mg/dL Normal 1.6-2.6 [facility] Comment on above: Result Comment: [facility] [address] [place] [address] Performed By: #### T BECCA WOMACK ####[facility]ermanenteUeemwnltxlyv29[address] [place] [address] Plan of Careon 07-21-2017 HIM IP Note OR Attendance Officer Normal [facility] HIM IP Note OR Attendance Officer Normal [facility] HIM IP Note OR Attendance Officer Normal [facility] Progress Noteon 07-21-2017 HIM IP Note OR Attendance Officer Normal [facility] HIM IP Note OR Attendance Officer Normal [facility] CARDIAC STRESS TESTon 2017 CARDIAC STRESS TEST [address] [address] CARDIAC STRESS TESTPATIENT NAME: AISWHARYA DUNN : 1965MED REC NO: [id number] [id number] ADMIT DATE: 07/20/2017PROVIDER: Ang CraigARDIOLITE TREADMILL STRESS STUDYDATE OF STUDY: 07/20/2017ORDERING PROVIDER: Mari Varela CARE PROVIDER: Jori RineINDICATION: Chest discomfort.CONSENT: The [...] of Nuclear MedicineANG SHELLMID: 07/20/2017 15:47:34 /PGAYTANJob#: [id number] Doc#: UnknownPositive result faxed to the Unit Normal [facility] Consulton 07-20-2017 HIM IP Note OR Attendance Officer Normal [facility] History and Physicalon 07-20 [facility] IP Note OR Attendance Officer Normal [facility] K (Potassium)on 07-20-2017 Potassium molar conc 3.9 mmol/L Normal 3.7-5.3 [facility] Comment on above: Result Comment: [facility] [employer] [facility] [place], [place] [phone] ([phone] Performed By: #### T BECCA WOMACK ####[facility] [address] [place] [phone] Lipid Profileon 07-20-2017 Cholesterol 162 mg/dL Normal <200 [facility] Comment on above: Result Comment: Chol esterol Guidelines: <200 Desirable 200-240 Borderline >240 Undesirable Performed By: #### T BECCA WOMACK ####[facility] [address] [place] [address] [phone] Cholesterol to HDL Ratio 3.4 {ratio} Normal <5 [facility] Comment on above: Performed By: #### T VU, LIPR ####[address] [place] [address] HDL Cholesterol 48 mg/dL Normal >40 [facility] Comment on above: Result Comment: HDL Guidelines: <40 Undesirable 40-59 Borderline >59 Desirable Performed By: #### VIRGEN MYLESR ####[address] [address] LDL Cholesterol 84 mg/dL Normal 0-130 [facility] Comment on above: Result Comment: LDL Guidelines: <100 Desirable 100-129 Near to/above Desirable 130-159 Borderline >159 UndesirableDirect (measured) LDL and calculated LDL are not interchangeable tests. Performed By: #### BECCA MYLES ####[facility] [address] [place] [address] Triglyceride 151 mg/dL High <150 [facility] Comment on above: Result Comment: Trig lyceride Guidelines: <150 Desirable 150- 199 Borderline 200-499 High >499 Very high Based on AHA Guidelines for fasting triglyceride, March 2012.[employer] [address] [place] [address] Performed By: #### BECCA MYLES ####[facility] [address] [place] [address] Cholesterol in VLDL mass conc NOT REPORTED Normal 1-30 [facility] Comment on above: Performed By: #### BECCA MYLES ####[facility] [address] [place] [address] Magnesiumon 07-20-2017 Magnesium 1.8 mg/dL Normal 1.6-2.6 [facility] Comment on above: Result Comment: [employer] [address] [place] [address] Performed By: #### BECCA MYLES ####[facility] [address] [place] [address] [place] MYOCARDIAL SPECT REST EXE RCISE OR [...] Revascularization in Patients With Stable Ischemic Heart DiseaseESSENTIA HEALTH Volume 69, Issue October 2016High risk (>3% annual or HI)1. Severe resting LV dysfunction (LVEF >35%) not [...] e risk (1% to 3% annual or HI)1. Mild/moderate resting LV dysfunction (LVEF 35% to [...] coronarybed.Low Risk (Less than 1% annual or HI)1. Normal or small myocardial perfusion defect at rest or with stressencumbering less than 5% of the myocardium.Interpreted by:JENNI Montañoigned by:Giovanny Lan MD07/20/17inal result Normal [facility] Plan of Careon 07-20-2017 HIM IP Note OR Attendance Officer Normal [facility] HIM IP Note OR Attendance Officer Normal [facility] Procedureon 07-20-2017 HIM IP Note OR Attendance Officer Normal [facility] Progress Noteon 07-20-2017 HIM IP Note OR Attendance Officer Normal [facility] HIM IP Note OR Attendance Officer Normal [facility] TSH w/reflex to FT4on 2017 Thyroid stimulating hormone (TSH) 0.22 m[IU]/L Low 0.30-5.00 [facility] Comment on above: Result Comment: [facility] [employer] [address] [place] [address] Performed By: #### T SHX, FT4 ####[address] [address] Thyroxine, Freeon 07-20-2017 Thyroxine, Free 1.52 ng/dL Normal 0.93-1.70 [facility] Comment on above: Result Comment: [facility] [employer] [address] [place] [address] Performed By: #### T SHX, FT4 ####[address] [address] Troponinon 07-20-2017 Troponin I.cardiac mass conc Normal [facility] Comment on above: Result Comment: Refe rence Range: <0.03 Within reference range. 0.03-0.09 Possible myocardial damage.Repeat at appropriate intervals to rule out chronic elevation. >= 0.10 Indicative of myocardial damage.Patients with high levels of Biotin oral intake (i.e >5mg/day) may have falsely decreased Troponin T levels. Samples collected within 8 hours of biotin intake may require additional information for diagnosis.[address] [address] Performed By: #### BECCA MYLES ####[address] [address] Troponin T.cardiac mass conc ug/L Normal <0.03 [facility] Comment on above: Result Comment: Trop onin T results cannot be compared to Troponin-I results. Performed By: #### BECCA MYLES ####[address] [address] [address] Encounters Encounter Date Encounter Type Care Provider Facility Start: 01-22-2024 End: 01-22-2024 ambulatory JEANINE WHITLOCK Not Available Start: 12-18-2023 End: 12-18-2023 ambulatory POLO DIAZ Not Available Start: 11-19-2023 End: 11-19-2023 ambulatory JEANINE WHITLOCK Not Available Start: 10-11-2023 End: 10-11-2023 ambulatory POLO DIAZ Not Available Start: 07-15-2023 End: 07-18-2023 ambulatory [facility] Start: 07-15-2023 End: 07-17-2023 Subsequent hospital visit by physician Ghada Dexa Room At [facility] Dexa Scan Comment on above: Age-related osteopor osis without current pathological fracture Start: 05-24-2023 End: 05-24-2023 ambulatory JEANINE WHITLOCK Not Available Start: 05-10-2023 End: 05-11-2023 [facility]ulatory [facility] Start: 12-27-2022 End: 12-28-2022 ambulatory JEANIEN WHITLOCK [facility] Start: 12-19-2022 End: 12-20-2022 ambulatory [facility]IAZ [facility] Start: 12-19-2022 End: 12-19-2022 Subsequent hospital visit by physician Jeanine Whitlock Work Phone: [facility] Start: 12-06-2020 End: 12-08-2020 Subsequent hospital visit by physician Maddie Sewell Dr Room 2 [facility] Radiology Comment on above: Mild intermittent as thma without complication Start: 07-20-2017 End: 07-22-2017 Evaluation and management of inpatient JEANINE Liban WHITLOCK [facility] Procedures Date Procedure Procedure Detail Performing Clinician Start: 07-15-2023 Dxa bone density thomas dy 1/> sites axial skel Tyler Ramey MD Work Phone: Start: 12-19-2022 Comprehensive metabo lic panel Polo Escobedo MEDICAL OFFICE PROFESSIONAL INSTRUCTOR - HAULAGE ENGINE OPERATOR Work Phone: Start: 12-19-2022 Lipid panel Polo ocampo MEDICAL OFFICE PROFESSIONAL INSTRUCTOR - HAULAGE ENGINE OPERATOR Work Phone: Start: 12-19-2022 Urine albumin quantitative Polo Escobedo MEDICAL OFFICE PROFESSIONAL INSTRUCTOR - HAULAGE ENGINE OPERATOR Work Phone: Start: 12-06-2020 Radiologic exam ches t 2 views Jeanine L Rine Work Phone: Start: 01-23-2018 Colonoscopy Jeanine Rine Work Phone: Start: 07-22-2017 BRAIDED RUG MAKER REPORT JEANINE R INE Start: 07-22-2017 DISCHARGE [...] THER APY PROTOCOL JEANINE RINE Start: 07-20-2017 INTAKE AND OUTPUT JEANINE RINE Start: 07-20-2017 NOTIFY PHYSICIAN (SPECIFY) JEANINE JOSELINEE Start: 07-20-2017 PULSE OXIMETRY SPOT CHECK JEANINE RINE Start: 07-20-2017 TELEMETRY MONITORING GE RRI RINE Start: 07-20-2017 IP CONSULT TO CARDIOLOGY JEANINE JOSELINEE Start: 07-20-2017 PLACE INTERMITTENT PNEUMATIC COMPRESSION DEVICE JEANINE RINE Start: 07-20-2017 PATIENT STATUS (DIRECT) JEANINE CHINYERE Plan of Treatment Date Care Activity Detail Author Start: 01-24-2028 [facility]ening for malign ant [facility]oplasm [facility] Start: 02-13-2027 DTaP/Tdap/Td vaccine (3 - Td or Tdap) DTaP/Tdap/Td vaccine (3 - Td or Tdap) [facility] Start: 05-24-2025 Screening for malign ant neoplasm of breast Breast cancer screen [facility] Start: 12-20-2023 GFR test (Diabetes, CKD 3-4, OR last GFR 15-59) GFR test (Diabetes, CKD 3-4, OR last GFR 15-59) [facility] [employer] Start: 12-20-2023 Hemoglobin A1c measurement A1C test (Diabetic or Prediabetic) [facility] Start: 12-20-2023 Lipid panel Lipids [facility] [employer] Start: 12-20-2023 Urine screening for protein Diabetic Alb to Cr ratio (uACR) test [facility] Start: 01-01-2023 Influenza vaccination Flu vaccine (# 1) [facility] Start: 02-01-2021 [facility] Start: 12-02-2020 COVID-19 Vaccine (3 - Booster for Moderna series) COVID-19 Vaccine (3 - Booster for Moderna series) [facility] Start: 01-18-2020 Screening for malign ant neoplasm of breast Breast cancer screen [facility] [employer] Start: 07-23-2018 Creatinine measurement Creatinine mo arianna [employer] Phone: Start: 07-23-2018 GFR test (Diabetes, CKD 3-4, OR last GFR 15-59) GFR test (Diabetes, CKD 3-4, OR last GFR 15-59) [facility] [employer] Start: 07-23-2018 Potassium monitoring Potassium monit oring [employer] Phone: Start: 07-20-2018 Lipid panel [facility] [employer] Start: 07-01-2018 Pneumococcal 0-64 ye ars Vaccine (2 - PPSV23 if available, else PCV20) Pneumococcal 0-64 years Vaccine (2 - PPSV23 if available, else PCV20) [facility] Start: 07-01-2018 Pneumococcal 0-64 ye ars Vaccine (2 - PPSV23 or PCV20) Pneumococcal 0-64 years Vaccine (2 - PPSV23 or PCV20) [facility] Start: 2017 Shingles Vaccine (1 of 2) Shingles V accine (1 of 2) [facility] [employer] Start: 2012 Screening for malign ant neoplasm of colon [facility] [employer] Start: 06-15-2012 Hemoglobin A1c measurement A1C test (Diabetic or Prediabetic) [facility] [employer] Start: 1997 Screening for malign ant neoplasm of cervix [facility] [employer] Start: 1988 Screening for malign ant neoplasm of cervix [facility] Start: 1986 Hepatitis B vaccine (1 of 3 - Risk 3-dose series) Hepatitis B vaccine (1 of 3 - Risk 3-dose series) [facility] [employer] Start: 1985 Diabetic microalbumi gabo test Diabetic microalbuminuria test [employer] Phone: Start: 1985 Glaucoma screening Diabetic retinal exam [facility] Start: 1985 Hepatitis C screening Hepatitis C sc reen [facility] Start: 1985 Urine screening for protein Diabetic Alb to Cr ratio (uACR) test [facility] Start: 1982 HIV screening HIV screen [facility] [employer] Start: 1979 Depression Monitoring Depression Mon itoring [facility] [employer] Start: 1977 Diabetic foot examination Diabetic f oot exam [facility] [employer] Start: 1977 Diabetic retinal exam Diabetic retin al exam [employer] Phone: Start: 1973 Pneumococcal 0-64 ye ars Vaccine (1 of 2 - PPSV23) Pneumococcal 0-64 years Vaccine (1 of 2 - PPSV23) [employer] Phone: Start: 01-23-1968 COVID-19 Vaccine (#1) COVID-19 Vacci ne (#1) [facility] Start: 1967 Hepatitis B vaccine (1 of 3 - 3-dose series) Hepatitis B vaccine (1 of 3 - 3-dose series) [facility] Start: 1967 Hepatitis C screening Hepatitis C sc reen [employer] Phone: End: 12-19-2022 Hemoglobin A1c/Hemoglobin.total in Blood [employer] Phone: Comment on above: Once for 1 Occurrenc es starting 12/19/2022 until 12/19/2022 Payers Date Payer Category Payer Private Health Insurance [id number] 2019 Unknown [id number] 2014 Unknown [id number] 1967 Unknown [id number] 2.16.8 [id number] 1967 Unknown [id number] 2.16.8 [id number] 1967 Unknown [id number] 2.16.8 [id number] 1967 Unknown [id number] 2.16.8 [id number] 1967 Unknown [id number] 2.16.84 [id number] 1967 Unknown [id number] 2.16.84 [id number] 1967 Unknown [id number] 2.16.84 [id number] 1967 Unknown [id number] 2.16.84 [id number] 1967 Unknown [id number] 1967 Unknown [id number] Social History Date Type Detail Facility Start: 07-19-2017 End: 01-23-2018 Tobacco smoking status [facility] Never smoker [facility] Start: 07-19-2017 End: 01-23-2018 Tobacco use and exposure Never used [email or web address] Start: 01-23-2018 Alcohol intake 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) [facility] Phone: Start: 1965 Sex Assigned At Not on file [employer] Phone: Start: 01-25-2019 History of Social function [facility] Start: 01-25-2019 [facility] Evaluation [facility] Note Date & Type Note Facility Evaluation note Diagnosis Mild intermittent asthma without complication Unspecified asthma documented in this encounter [facility] Phone: Evaluation note Note Date & Type Note Facility Evaluation note Diagnosis Age-related osteoporosis without current pathological fracture Senile osteoporosis documented in this encounter [facility] Summary Purpose Family History No Family History Records FoundNo Family History Records FoundNo Family History Records FoundNo Family History Records Found Advance Directives No Advanced Directives Records FoundDocuments on File Type Date Recorded Patient Attorney Lawyer Expl anation ACP-Advance Directive ACP-Power of Lifestyle Block Farmer Latest Code Status on File Code Status [...] DENSITY AXIAL SKELETON Tyler Ramey MD [address] [place] [address] Referral ID Status Reason Start Date Expiration Date V isits Requested Visits Authorized [id number] Pending Review 05/24/2023 05/23/2024 1 1 Additional Source Comments INFORMATION SOURCE (unrecogn ized section and content) DATE CREATED AUTHOR 11/22/2017 [facility] DATE CREATED AUTHOR AUTHOR'S ORGANIZ ATION 05/15/2023 [facility] DATE CREATED AUTHOR AUTHOR'S ORGANIZ ATION 07/18/2023 [facility] DATE CREATED AUTHOR AUTHOR'S ORGANIZ ATION 01/24/2024 [facility] [employer] Care Teams (unrecognized sec tion and content) Facilities Administrator Relationship Specialty Start Date End Date Jeanine Whitlock [address] [place] [address] PCP - General 04/16/16 Facilities Administrator Relationship Specialty Start Date End Date JoselinesjJeanine [address] [place] [address] PCP - General 04/16/16 Reason for Visit (unrecogniz ed section and content) Specialty Diagnoses / Procedures Referred By Contac t Referred To Contact Radiology Diagnoses Age-related osteoporosis without current pathological fracture Procedures DEXA BONE DENSITY 2 SITES DEXA BONE DENSITY AXIAL SKELETON Tyler Ramey MD [address] [place] [id number] Referral ID Status Reason Start Date Expiration Date V isits Requested Visits Authorized [id number] Pending Review 05/24/2023 05/23/2024 1 1 FOR [...] BE BASED ON THE PRIMARY CLINICAL RECORDS. [employer] provides no warranty or guarantee of the accuracy or completeness of information in this document.
== END 2024-02-05 10:16 | disposition home or self-care (01) ==
LOC: EC 10:15
PROVIDERS: Visit Provider Podiatrist Foot & Ankle Surgery
DX: M79.672 Pain in left foot (principal); M24.675 Ankylosis, left foot
CPT/HCPCS: 73630

== ENCOUNTER 2024-02-26 08:37 | Outpatient (OUT) | payer OTHER, SELFPAY ==
--- NOTE | 2024-02-26 | XR_ITS ---
The [address] [address] Patient Name: AISHWRAYA DUNN MRN: [id number] date: 1965 Sex: F Assigned Patient Location: Current Patient Location: Accession/Order Number: [id number] Exam Date: 02/26/2024 08:42 Report Date: 02/28/2024 05:42 At the request of: ANA SCHUSTER Procedure: XR foot LT min 3V PROCEDURE: XR foot LT min 3V HISTORY: LEFT FOOT PAIN COMPARISON: XR foot left 02/05/2024 FINDINGS: BONES:Mechanical fusion the first metatarsophalangeal joint via dorsal plate and screws; no appreciable hardware fracture loosening. No bone fracture or dislocation. Prominent degenerative enthesopathic spurring of the calcaneus. SOFT TISSUES:No visible soft tissue swelling. EFFUSION:None visible. OTHER: Negative. XR/XR foot LT min 3V IMPRESSION: 1. Stable surgical changes without evidence of hardware failure or change in alignment. Electronically authenticated by: JACKSON BAUM Date: 02/28/2024 05:42
--- OUTSIDE RECORDS SUMMARY | 2024-02-26 08:48 | XMS_ITS | CCD ---
Author Organization [facility] ion Partnership [facility] Care Team Providers Care Aerospace Physiological Technician Name Role Phone RINE, JEANINE L Unavailable Unavailable KABOUR, AMEER Unavailable Unavailable AHMAD, SHOWKAT Unavailable Unavailable KAMIREDDY, ADIREDDY Unavailable Unavailable Rine, Jeanine L Primary Care Provider Rine, Jeanine L Primary Care Provider POLO DIAZ [...] Propensity to adverse reactions to drug 07-14-2012 [facility] Work Phone: Unclassified (1 source) Shellfish-Derive d Products Propensity to adverse reactions to drug 07-21-2012 [facility] (2 sources) Seafood Propensity to adverse reactions to drug 07-21-2012 [facility] (2 sources) Iodides Propensity to adverse reactions to drug 07-14-2012 [facility] Work Phone: Medications Current Medications Medication Drug [...] of elevated bone mineral density Interpreted by: eBrnardo Squires MD Signed by: Bernardo Squires MD 07/17/23 Final result Normal [facility] DXA Bone [Mass/Area] Bone de nsityon 07-17-2023 Some evidence of elevated bone mineral density [facility] RIS CONSOLIDATED DEXA BONE DENSITY 2 [...] density 1.419 g/sq cm. T score 3.3. [facility] RIS CONSOLIDATED Bernardo Squires MD - [...] Some evidence of elevated bone mineral density [facility] DXA Bone [Mass/Area] Bone de nsityOrdered By: Bernardo Shaw on 07-17-2023 [facility] Work Phone: DXA Bone [Mass/Area] Bone de nsityon 07-15-2023 Radiology Study observation (narrative) [facility] BI MAMMOGRAM SCREENING TOMOS YNTHESIS BILATERALon 05-24-2023 [...] IS VERY IMPORTANT TO YOUR HEALTH. THE [employer] GUIDELINES RECOMMEND THAT WOMEN 40 [...] Not Available Comment on above: Order Comment: [facility] CBC with Diffon 12-27-2022 Abs. Basophil 0.06 k/uL Normal 0.00-0.20 [facility] Comment on above: Performed By: #### C DP #### [facility] [address] [place] [address] Dr. [place], [facility] Judicial Law Clerk: Gerson Barton MD Abs.Imm.Granulocyte 0.08 k/uL Normal 0.00-0.30 [facility] Comment on above: Performed By: #### C DP #### [address] [place]azar, [facility] Judicial Law Clerk: Gerson Barton MD Abs.Neutrophil (Seg) 6.19 k/uL Normal 1.50-8.10 [facility] Comment on above: Performed By: #### C DP #### [address] [place] [id number] Judicial Law Clerk: Gerson Barton MD Basophils/100 WBC (Bld) 1 % Normal 0-2 [facility] Comment on above: Performed By: #### C DP #### [address] Lazar, [facility] Judicial Law Clerk: Gerson Barton MD Eosinophils (Bld) [#/Vol] 0.12 10*3/uL Normal 0.00-0.44 [facility] Comment on above: Performed By: #### C DP #### [address] Lazar, [facility] Judicial Law Clerk: Gerson Barton MD Eosinophils/100 WBC (Bld) 1 % Normal 1-4 [facility] Comment on above: Performed By: #### C DP #### [address] Lazar, [facility] Judicial Law Clerk: Gerson Barton MD Erythrocyte distribution width (RBC) [Ratio] 14.0 % Normal 11.8-14.4 [facility] Comment on above: Performed By: #### C DP #### [address] Lazar, [facility] Judicial Law Clerk: Gerson Barton MD Hematocrit (Bld) [Volume fraction] 44.1 % Normal 36.3-47.1 [facility] Comment on above: Performed By: #### C DP #### [facility] [address] [place], [place] [address] Judicial Law Clerk: Gerson Barton MD Hemoglobin (Bld) [Mass/Vol] 14.5 g/dL Normal 11.9-15.1 [facility] Comment on above: Performed By: #### C DP #### [facility] [address], [facility] Judicial Law Clerk: Gerson Barton MD Immature granulocytes/100 WBC (Bld) 1 % High 0 [facility] Comment on above: Performed By: #### C DP #### [facility] [address] [place], [facility] Judicial Law Clerk: Gerson Barton MD Lymphocytes (Bld) [#/Vol] 3.02 10*3/uL Normal 1.10-3.70 [facility] Comment on above: Performed By: #### C DP #### [address] Lazar, [facility] Judicial Law Clerk: Gerson Barton MD Lymphocytes/100 WBC (Bld) 29 % Normal 24-43 [facility] Comment on above: Performed By: #### C DP #### [facility] [address] [place], [place] [address] Judicial Law Clerk: Gerson Barton MD MCH (RBC) [Entitic mass] 29.2 pg Normal 25.2-33.5 [facility] Comment on above: Performed By: #### C DP #### [facility] [address] [place], [facility] Judicial Law Clerk: Gerson Barton MD MCHC (RBC) [Mass/Vol] 32.9 g/dL Normal 28.4-34.8 [facility] Comment on above: Performed By: #### C DP #### [facility] [address] [place], [facility] Judicial Law Clerk: Gerson Barton MD MCV (RBC) [Entitic vol] 88.7 fL Normal 82.6-102.9 [facility] Comment on above: Performed By: #### C DP #### [facility] [address] [place], [place] [id number] Judicial Law Clerk: Gerson Barton MD Monocytes (Bld) [#/Vol] 0.98 10*3/uL Normal 0.10-1.20 [facility] Comment on above: Performed By: #### C DP #### [address] [place] [id number] Judicial Law Clerk: Gerson Barton MD Monocytes/100 WBC (Bld) 9 % Normal 3-12 [facility] Comment on above: Performed By: #### C DP #### [address] Lazar, [facility] Judicial Law Clerk: Gerson Barton MD Neutrophil (Seg) 59 % Normal 36-65 [facility] Comment on above: Performed By: #### C DP #### [address] Lazar, [facility] Judicial Law Clerk: Gerson Barton MD NRBC Automated 0.0 per 100 WBC Normal 0.0 [facility] Comment on above: Performed By: #### C DP #### [address] [place]azar, [facility] Judicial Law Clerk: Gerson Barton MD Platelet mean volume (Bld) [Entitic vol] 9.3 fL Normal 8.1-13.5 [facility] Comment on above: Performed By: #### C DP #### [address] [place], [place] [id number] Judicial Law Clerk: Gerson Barton MD Platelets (Bld) [#/Vol] 365 10*3/uL Normal 138-453 [facility] Comment on above: Performed By: #### C DP #### [address] [place], [place] [id number] Judicial Law Clerk: Gerson Barton MD RBC (Bld) [#/Vol] 4.97 10*6/uL Normal 3.95-5.11 [facility] Comment on above: Performed By: #### C DP #### [address] [place], [place] [phone] Judicial Law Clerk: Gerson Barton MD WBC (Bld) [#/Vol] 10.5 10*3/uL Normal 3.5-11.3 [facility] Comment on above: Performed By: #### C DP #### [address] [place] [address] Judicial Law Clerk: Gerson Barton MD Hemoglobin A1Con 12-20-2022 Glucose [Mass/Vol] 126 mg/dL Normal [facility] Comment on above: Result Comment: The ADA and AACC recommend providing the estimated average glucose result to permit better patient understanding of their HBA1c result. Performed By: #### C P, CDP, TSHX #### [address] [place], [facility] Judicial Law Clerk: Gerson Barton MD #### URNMAB, FT4, GLYHGB, VD25, LIPR #### [facility] [employer] [facility] [place], [place] [address] Judicial Law Clerk: Asad Draper MD HbA1c (Bld) [Mass fraction] 6.0 % Normal 4.0-6.0 [facility] Comment on above: Performed By: #### C P, CDP, TSHX #### [address] [place] [address] Judicial Law Clerk: Gerson Barton MD #### URNMAB, FT4, GLYHGB, VD25, LIPR #### [place] [address] [place], [place] [id number] Judicial Law Clerk: Asad Draper MD Lipid Profileon 12-20-2022 Cholesterol [Mass/Vol] 115 mg/dL Normal <200 [facility] Comment on above: Result Comment: Cholesterol Guidelines: <200 Desirable 200-240 Borderline >240 Undesirable Performed By: #### C P, CDP, TSHX #### [address] [place], [place] 1938383 Judicial Law Clerk: Gerson Barton MD #### URNMAB, FT4, GLYHGB, VD25, LIPR #### [facility] [address] [place], [place] [phone] Judicial Law Clerk: Asad Draper MD Cholesterol in HDL [Mass/Vol] 49 mg/dL Normal >40 [facility] Comment on above: Result Comment: HDL Guidelines: <40 Undesirable 40-59 Borderline >59 Desirable Performed By: #### C P, CDP, TSHX #### [address] [place] [address] Judicial Law Clerk: Gerson Barton MD #### URNMAB, FT4, GLYHGB, VD25, LIPR #### [facility] [employer] [facility] [place], [place] [phone] Judicial Law Clerk: Asad Draper MD Cholesterol in LDL [Mass/Vol] 32 mg/dL Normal 0-130 [facility] Comment on above: Result Comment: LDL Guidelines: <100 Desirable 100-129 Near to/above Desirable 130-159 Borderline >159 Undesirable Direct (measured) LDL and calculated LDL are not interchangeable tests. Performed By: #### C P, CDP, TSHX #### [address] [place] [address] Judicial Law Clerk: Gerson Barton MD #### URNMAB, FT4, GLYHGB, VD25, LIPR #### [facility] [employer] [facility] [place], [place] [phone] Judicial Law Clerk: Asad Draper MD Cholesterol.total/Ch olesterol in HDL [Mass ratio] 2.3 {ratio} Normal <5 [facility] Comment on above: Performed By: #### C P, CDP, TSHX #### [address] [place] [phone] Judicial Law Clerk: Gerson Barton MD #### URNMAB, FT4, GLYHGB, VD25, LIPR #### [facility] [employer] [facility] [place], [place] [id number] Judicial Law Clerk: Asad Draper MD Triglyceride [Mass/Vol] 171 mg/dL High <150 [facility] Comment on above: Result Comment: Triglyceride Guidelines: <150 Desirable 150-199 Borderline 200-499 High >499 Very high Based on AHA Guidelines for fasting triglyceride, March 2012. Performed By: #### C P, CDP, TSHX #### [address] [place] [phone] Judicial Law Clerk: Gerson Barton MD #### URNMAB, FT4, GLYHGB, VD25, LIPR #### [place] [address] [place], [place] 1911508 Judicial Law Clerk: Asda Draper MD Microalb.,Random Uron 2022 Microalb/Creat Ratio 178 mcg/mg creat High <25 [facility] Comment on above: Performed By: #### C P, CDP, TSHX #### [address] [place] [phone] Judicial Law Clerk: Gerson Barton MD #### URNMAB, FT4, GLYHGB, VD25, LIPR #### [place] [address] [place], [place] [id number] Judicial Law Clerk: Asad Draper MD Microalbumin conc. 764 mg/L High <21 [facility] Comment on above: Performed By: #### C P, CDP, TSHX #### [address] [place], [place] 1905983 Judicial Law Clerk: Gerson Barton MD #### URNMAB, FT4, GLYHGB, VD25, LIPR #### [place] [address]97 [place] [address] Judicial Law Clerk: Asda Draper MD Creatinine [Mass/Vol] 428.7 mg/dL High 28.0-217.0 [facility] Comment on above: Performed By: #### C P, CDP, TSHX #### [address] [place], [place] 0650183 Judicial Law Clerk: Greson Barton MD #### URNMAB, FT4, GLYHGB, VD25, LIPR #### [place] [address] [place], [place] 9414208 Judicial Law Clerk: Asad Draper MD Thyroxine, Freeon 12-202022 Thyroxine, Free 1.5 ng/dL Normal 0.9-1.7 [facility] Comment on above: Performed By: #### C P, CDP, TSHX #### [address] [place], [place] 4221583 Judicial Law Clerk: Gerson Barton MD #### URNMAB, FT4, GLYHGB, VD25, LIPR #### [place] [address] [place] [address] Judicial Law Clerk: Asad Draper MD Vitamin D 25 OHon 0 Vitamin D 25 [place] 59.0 ng/mL Normal >29.9 [facility] Comment on above: Result Comment: Reference Range: Vitamin D status Range Deficiency <20 ng/mL Mild Deficiency 20-30 ng/mL Sufficiency 30-100 ng/mL Toxicity >100 ng/mL Performed By: #### C P, CDP, TSHX #### [address] [place] [address] Judicial Law Clerk: Gerson Barton MD #### URNMAB, FT4, GLYHGB, VD25, LIPR #### [facility] [address] [place] [address] Judicial Law Clerk: Asad Draper MD CBC with Auto Differentialon 12-19-2022 Basophils (Bld) [#/Vol] 0.05 10*3/uL [facility] Basophils/100 WBC (Bld) 0 % 0 - 2 % [facility] Eosinophils (Bld) [#/Vol] 0.07 10*3/uL [facility] Eosinophils/100 WBC (Bld) 1 % 1 - 4 % [facility] Erythrocyte distribution width (RBC) [Ratio] 13.8 % 11.8 - 14.4 % [facility] Hematocrit (Bld) [Volume fraction] 47.2 % High 36.3 - 47.1 % [facility] Hemoglobin (Bld) [Mass/Vol] 15.9 g/dL High 11.9 - 15.1 g/dL [facility] Immature granulocytes (Bld) [#/Vol] 0.09 10*3/uL [facility] Immature granulocytes/100 WBC (Bld) 1 % High 0 [facility] Interpretation and review of laboratory results Abnormal [facility] Lymphocytes/100 WBC (Bld) 16 % Low 24 - 43 % [facility] Lymphocytes/100 WBC (Bld) 1.85 % [facility] MCH (RBC) [Entitic mass] 28.8 pg 25.2 - 33.5 pg [facility] MCHC (RBC) [Mass/Vol] 33.7 g/dL 28.4 - 34.8 g/dL [facility] MCV (RBC) [Entitic vol] 85.5 fL 82.6 - 102.9 fL [facility] Monocytes/100 WBC (Bld) 8 % 3 - 12 % [facility] Monocytes/100 WBC (Bld) 0.89 % [facility] Neutrophils/100 WBC (Bld) 74 % High 36 - 65 % [facility] Nucleated RBC/100 WBC (Bld) [Ratio] 0.0 % 0.0 per 100 WBC [facility] Platelet mean volume (Bld) [Entitic vol] 9.0 fL 8.1 - 13.5 fL [facility] Platelets (Bld) [#/Vol] 335 10*3/uL [facility] RBC (Bld) [#/Vol] 5.52 10*6/uL High 3.95 - 5.1 1 m/uL [facility] Segmented neutrophils/100 WBC (Bld) 8.61 % High [facility] WBC other (Bld) [#/Vol] 11.6 High [facility] CBC with Diffon 12-19-2022 Abs. Basophil 0.05 k/uL Normal 0.00-0.20 [facility] Comment on above: Performed By: #### C P, CDP, TSHX #### [facility] [address] [place] [address] Dr. [place] [phone] Judicial Law Clerk: Gerson Barton MD #### YESY, FT4, GLYHGB, VD25, LIPR #### [place] [id number] Judicial Law Clerk: Asad Draper MD Abs.Imm.Granulocyte 0.09 k/uL Normal 0.00-0.30 [facility] Comment on above: Performed By: #### C P, CDP, TSHX #### [address] [place] [phone] Judicial Law Clerk: Gerson Barton MD #### YESY, FT4, GLYHGB, VD25, LIPR #### [address] [phone] Judicial Law Clerk: Asad Draper MD Abs.Neutrophil (Seg) 8.61 k/uL High 1.50-8.10 [facility] Comment on above: Performed By: #### C P, CDP, TSHX #### [facility] [address] [place] [phone] Judicial Law Clerk: Gerson Barton MD #### URNMAB, FT4, GLYHGB, VD25, LIPR #### [address] [phone] Judicial Law Clerk: Asad Draper MD Basophils/100 WBC (Bld) 0 % Normal 0-2 [facility] Comment on above: Performed By: #### C P, CDP, TSHX #### [address] [place] [phone] Judicial Law Clerk: Gerson Barton MD #### URNMAB, FT4, GLYHGB, VD25, LIPR #### [place] [address] Judicial Law Clerk: Asad Draper MD Eosinophils (Bld) [#/Vol] 0.07 10*3/uL Normal 0.00-0.44 [facility] Comment on above: Performed By: #### C P, CDP, TSHX #### [address] [place] [phone] Judicial Law Clerk: Gerson Barton MD #### URNMAB, FT4, GLYHGB, VD25, LIPR #### [place] [id number] Judicial Law Clerk: Asad Draper MD Eosinophils/100 WBC (Bld) 1 % Normal 1-4 [facility] Comment on above: Performed By: #### C P, CDP, TSHX #### [address] [place] [phone] Judicial Law Clerk: Gerson Barton MD #### URNMAB, FT4, GLYHGB, VD25, LIPR #### [address] [phone] Judicial Law Clerk: Asad Draper MD Erythrocyte distribution width (RBC) [Ratio] 13.8 % Normal 11.8-14.4 [facility] Comment on above: Performed By: #### C P, CDP, TSHX #### [address] [place], [place] 9618183 Judicial Law Clerk: Gerson Barton MD #### URNMAB, FT4, GLYHGB, VD25, LIPR #### [address] [address] Judicial Law Clerk: Asad Draper MD Hematocrit (Bld) [Volume fraction] 47.2 % High 36.3-47.1 [facility] Comment on above: Performed By: #### C P, CDP, TSHX #### [address] [place] [address] Judicial Law Clerk: Gerson Barton MD #### URNMAB, FT4, GLYHGB, VD25, LIPR #### [address] [phone] Judicial Law Clerk: Asad Draper MD Hemoglobin (Bld) [Mass/Vol] 15.9 g/dL High 11.9-15.1 [facility] Comment on above: Performed By: #### C P, CDP, TSHX #### [address] [place], [place] 1146783 Judicial Law Clerk: Gerson Barton MD #### URNMAB, FT4, GLYHGB, VD25, LIPR #### [address] [phone] Judicial Law Clerk: Asad Draper MD Immature granulocytes/100 WBC (Bld) 1 % High 0 [facility] Comment on above: Performed By: #### C P, CDP, TSHX #### [address] [place], [place] 2569483 Judicial Law Clerk: Gerson Barton MD #### URNMAB, FT4, GLYHGB, VD25, LIPR #### [address] [address] Judicial Law Clerk: Asad Draper MD Lymphocytes (Bld) [#/Vol] 1.85 10*3/uL Normal 1.10-3.70 [facility] Comment on above: Performed By: #### C P, CDP, TSHX #### [facility] [address] [place] [address] Dr. [place], [place] 1132683 Judicial Law Clerk: Gerson Barton MD #### URNMAB, FT4, GLYHGB, VD25, LIPR #### [address] [address] Judicial Law Clerk: Asad Draper MD Lymphocytes/100 WBC (Bld) 16 % Low 24-43 [facility] Comment on above: Performed By: #### C P, CDP, TSHX #### [address] [place] [phone] Judicial Law Clerk: Gerson Barton MD #### URNMAB, FT4, GLYHGB, VD25, LIPR #### [place] [address] Judicial Law Clerk: Asad Draper MD MCH (RBC) [Entitic mass] 28.8 pg Normal 25.2-33.5 [facility] Comment on above: Performed By: #### C P, CDP, TSHX #### [facility] [address] [place] [address] Dr. [place] [phone] Judicial Law Clerk: Gerson Barton MD #### URNMAB, FT4, GLYHGB, VD25, LIPR #### [place] [address] [place] [address] Judicial Law Clerk: Asad Draper MD MCHC (RBC) [Mass/Vol] 33.7 g/dL Normal 28.4-34.8 [facility] Comment on above: Performed By: #### C P, CDP, TSHX #### [facility] [address] [place] [address] Dr. [place] [phone] Judicial Law Clerk: Gerson Barton MD #### URNMAB, FT4, GLYHGB, VD25, LIPR #### [address] [phone] Judicial Law Clerk: Asad Draper MD MCV (RBC) [Entitic vol] 85.5 fL Normal 82.6-102.9 [facility] Comment on above: Performed By: #### C P, CDP, TSHX #### [address] [place] [address] Judicial Law Clerk: Gerson Barton MD #### URNMAB, FT4, GLYHGB, VD25, LIPR #### [address] [address] Judicial Law Clerk: Asad Draper MD Monocytes (Bld) [#/Vol] 0.89 10*3/uL Normal 0.10-1.20 [facility] Comment on above: Performed By: #### C P, CDP, TSHX #### [address] [place] [phone] Judicial Law Clerk: Gerson Barton MD #### URNMAB, FT4, GLYHGB, VD25, LIPR #### [address] [phone] Judicial Law Clerk: Asad Draper MD Monocytes/100 WBC (Bld) 8 % Normal 3-12 [facility] Comment on above: Performed By: #### C P, CDP, TSHX #### [address] [place] [phone] Judicial Law Clerk: Gerson Barton MD #### URNMAB, FT4, GLYHGB, VD25, LIPR #### [address] [phone] Judicial Law Clerk: Asad Draper MD Neutrophil (Seg) 74 % High 36-65 [facility] Comment on above: Performed By: #### C P, CDP, TSHX #### [facility] [address] [place] [address] Dr. [place], [place] [phone] Judicial Law Clerk: Gerson Barton MD #### URNMAB, FT4, GLYHGB, VD25, LIPR #### [address] [phone] Judicial Law Clerk: Asad Draper MD NRBC Automated 0.0 per 100 WBC Normal 0.0 [facility] Comment on above: Performed By: #### C P, CDP, TSHX #### [address] [place] [address] Judicial Law Clerk: Gerson Barton MD #### URNMAB, FT4, GLYHGB, VD25, LIPR #### [address] [address] Judicial Law Clerk: Asad Draper MD Platelet mean volume (Bld) [Entitic vol] 9.0 fL Normal 8.1-13.5 [facility] Comment on above: Performed By: #### C P, CDP, TSHX #### [address] [place] [phone] Judicial Law Clerk: Gerson Barton MD #### URNMAB, FT4, GLYHGB, VD25, LIPR #### [address] [phone] Judicial Law Clerk: Asad Draper MD Platelets (Bld) [#/Vol] 335 10*3/uL Normal 138-453 [facility] Comment on above: Performed By: #### C P, CDP, TSHX #### [address] [place] [address] Judicial Law Clerk: Gerson Barton MD #### URNMAB, FT4, GLYHGB, VD25, LIPR #### [address] [place] [address] Judicial Law Clerk: Asad Draper MD RBC (Bld) [#/Vol] 5.52 10*6/uL High 3.95-5.11 [facility] Comment on above: Performed By: #### C P, CDP, TSHX #### [address] [place] [address] Judicial Law Clerk: Gerson Barton MD #### URNMAB, FT4, GLYHGB, VD25, LIPR #### [address] [address] Judicial Law Clerk: Asad Draper MD WBC (Bld) [#/Vol] 11.6 10*3/uL High 3.5-11.3 [facility] Comment on above: Performed By: #### C P, CDP, TSHX #### [address] [place] [phone] Judicial Law Clerk: Gerson Barton MD #### URNMAB, FT4, GLYHGB, VD25, LIPR #### [address] [address] Judicial Law Clerk: Asad Draper MD Comp Metabolic Profon 2022 Albumin [Mass/Vol] 5.1 g/dL Normal 3.5-5.2 [facility] Comment on above: Performed By: #### C P, CDP, TSHX #### [address] [place] [address] Judicial Law Clerk: Gerson Barton MD #### URNMAB, FT4, GLYHGB, VD25, LIPR #### [address] [phone] Judicial Law Clerk: Asad Draper MD Albumin/Glob Ratio 1.6 Normal 1.0-2.5 [facility] Comment on above: Performed By: #### C P, CDP, TSHX #### [facility] [address] [place], [place] [phone] Judicial Law Clerk: Gerson Barton MD #### URNMAB, FT4, GLYHGB, VD25, LIPR #### [place] [address] [place], [place] [phone] Judicial Law Clerk: Asad Draper MD Alkaline Phos 74 U/L Normal 35-104 [facility] Comment on above: Performed By: #### C P, CDP, TSHX #### [facility] [address] [place] [address] Judicial Law Clerk: Gerson Barton MD #### URNMAB, FT4, GLYHGB, VD25, LIPR #### [address] [phone] Judicial Law Clerk: Asad Draper MD ALT [Catalytic activity/Vol] 44 U/L High 5-33 [facility] Comment on above: Performed By: #### C P, CDP, TSHX #### [address] [place] [address] Judicial Law Clerk: Gerson Barton MD #### URNMAB, FT4, GLYHGB, VD25, LIPR #### [address] [id number] Judicial Law Clerk: Asad Draper MD Anion gap [Moles/Vol] 14 mmol/L Normal 9-17 [facility] Comment on above: Performed By: #### C P, CDP, TSHX #### [facility] [address] [place] [address] Judicial Law Clerk: Gerson Barton MD #### URNMAB, FT4, GLYHGB, VD25, LIPR #### [address] [phone] Judicial Law Clerk: Asad Draper MD AST [Catalytic activity/Vol] 27 U/L Normal <32 [facility] Comment on above: Performed By: #### C P, CDP, TSHX #### [address] [place] [address] Judicial Law Clerk: Gerson Barton MD #### URNMAB, FT4, GLYHGB, VD25, LIPR #### [address] [id number] Judicial Law Clerk: Asad Draper MD Bilirubin [Mass/Vol] 1.7 mg/dL High 0.3-1.2 [facility] Comment on above: Performed By: #### C P, CDP, TSHX #### [address] [place] [address] Judicial Law Clerk: Gerson Barton MD #### URNMAB, FT4, GLYHGB, VD25, LIPR #### [address] [phone] Judicial Law Clerk: Asad Draper MD BUN/CRE Ratio 20 Normal 9-20 [facility] Comment on above: Performed By: #### C P, CDP, TSHX #### [address] [place] [address] Judicial Law Clerk: Gerson Barton MD #### URNMAB, FT4, GLYHGB, VD25, LIPR #### [address] [phone] Judicial Law Clerk: sAad Draper MD Calcium [Mass/Vol] 10.5 mg/dL High 8.6-10.4 [facility] Comment on above: Performed By: #### C P, CDP, TSHX #### [address] [place] [address] Judicial Law Clerk: Gerson Barton MD #### URNMAB, FT4, GLYHGB, VD25, LIPR #### [address] [address] Judicial Law Clerk: Asad Draper MD Chloride [Moles/Vol] 94 mmol/L Low 98-107 [facility] Comment on above: Performed By: #### C P, CDP, TSHX #### [facility] [address] [place] [address] [place], [place] [phone] Judicial Law Clerk: Gerson Barton MD #### URNMAB, FT4, GLYHGB, VD25, LIPR #### [address] [address] Judicial Law Clerk: Asad Draper MD CO2 [Moles/Vol] 30 mmol/L Normal 20-31 [facility] Comment on above: Performed By: #### C P, CDP, TSHX #### [address] [place], [place] [phone] Judicial Law Clerk: Gerson Barton MD #### URNMAB, FT4, GLYHGB, VD25, LIPR #### [address] [phone] Judicial Law Clerk: Asad Draper MD Creatinine [Mass/Vol] 0.8 mg/dL Normal 0.5-0.9 [facility] Comment on above: Performed By: #### C P, CDP, TSHX #### [address] [place], [place] [phone] Judicial Law Clerk: Gerson Barton MD #### URNMAB, FT4, GLYHGB, VD25, LIPR #### [address] [phone] Judicial Law Clerk: Asad Draper MD GFR/1.73 sq M.predicted among non-blacks MDRD (S/P/Bld) [Vol rate/Area] mL/min/{1.73_m2} Normal >60 [facility] Comment on above: Result Comment: These [...] By: #### C P, CDP, TSHX #### [address] [place] [phone] Judicial Law Clerk: Gerson Barton MD #### URNMAB, FT4, GLYHGB, VD25, LIPR #### [address] [phone] Judicial Law Clerk: Asad Draper MD Glucose [Mass/Vol] 137 mg/dL High 70-99 [facility] Comment on above: Performed By: #### C P, CDP, TSHX #### [address] [place] [phone] Judicial Law Clerk: Gerson Barton MD #### URNMAB, FT4, GLYHGB, VD25, LIPR #### [address] [phone] Judicial Law Clerk: Asad Draper MD Potassium [Moles/Vol] 4.3 mmol/L Normal 3.7-5.3 [facility] Comment on above: Performed By: #### C P, CDP, TSHX #### [address] [place] [phone] Judicial Law Clerk: Gerson Barton MD #### URNMAB, FT4, GLYHGB, VD25, LIPR #### [address] [address] Judicial Law Clerk: Asad Draper MD Protein [Mass/Vol] 8.2 g/dL Normal 6.4-8.3 [facility] Comment on above: Performed By: #### C P, CDP, TSHX #### [facility] [address] [place] [address] Judicial Law Clerk: Gerson Barton MD #### URNMAB, FT4, GLYHGB, VD25, LIPR #### [id number] [place], [place] [phone] Judicial Law Clerk: Asad Draper MD Sodium [Moles/Vol] 138 mmol/L Normal 135-144 [facility] Comment on above: Performed By: #### C P, CDP, TSHX #### [facility] [address] [place] [address] Judicial Law Clerk: Gerson Barton MD #### URNMAB, FT4, GLYHGB, VD25, LIPR #### [id number] [place], [place] [phone] Judicial Law Clerk: Asad Draper MD Urea nitrogen [Mass/Vol] 16 mg/dL Normal 6-20 [facility] Comment on above: Performed By: #### C P, CDP, TSHX #### [address] [place] [address] Judicial Law Clerk: Gerson Barton MD #### URNMAB, FT4, GLYHGB, VD25, LIPR #### [id number] [place], [place] [phone] Judicial Law Clerk: Asad Draper MD Comprehensive Metabolic Pane [facility] 12-19-2022 Albumin [Mass/Vol] 5.1 g/dL 3.5 - 5.2 g/dL [facility] Albumin/Globulin [Mass ratio] 1.6 {ratio} 1.0 - 2.5 [facility] ALP [Catalytic activity/Vol] 74 U/L 35 - 104 U/L [facility] ALT [Catalytic activity/Vol] 44 U/L High 5 - 33 U/L [facility] Anion gap [Moles/Vol] 14 mmol/L 9 - 17 mmol/L [facility] AST [Catalytic activity/Vol] 27 U/L NINF - 32 U/L [facility] Bilirubin [Mass/Vol] 1.7 mg/dL High 0.3 - 1 .2 mg/dL [facility] Calcium [Mass/Vol] 10.5 mg/dL High 8.6 - 10. 4 mg/dL [facility] Chloride [Moles/Vol] 94 mmol/L Low 98 - 10 7 mmol/L [facility] CO2 [Moles/Vol] 30 mmol/L 20 - 31 mmol/L [facility] Creatinine [Mass/Vol] 0.8 mg/dL 0.5 - 0.9 mg/dL [facility] GFR/1.73 sq M.predicted MDRD (S/P/Bld) [Vol rate/Area] - PINF [facility] Comment on above: These results are not [...] 137 mg/dL High 70 - 99 mg/dL [facility] Interpretation and review of laboratory results Abnormal [facility] Potassium [Moles/Vol] 4.3 mmol/L 3.7 - 5.3 mmol/L [facility] Protein [Mass/Vol] 8.2 g/dL 6.4 - 8.3 g/dL [facility] Sodium [Moles/Vol] 138 mmol/L 135 - 144 mmol/L [facility] Urea nitrogen [Mass/Vol] 16 mg/dL 6 - 20 mg/dL [facility] Urea nitrogen/Creatinine [Mass ratio] 20 mg/mg 9 - 20 [facility] Lipid Panelon 12-19-2022 Cholesterol [Mass/Vol] 115 mg/dL NINF - 200 mg/dL [facility] Comment on above: Cholesterol Guidelines: <200 Desirable 200-240 Borderline >240 Undesirable Cholesterol in HDL [Mass/Vol] 49 mg/dL 40 - PINF mg/dL [facility] Comment on above: HDL Guidelines: <40 Undesirable 40-59 Borderline >59 Desirable Cholesterol in LDL [Mass/Vol] 32 mg/dL 0 - 130 mg/dL [facility] Comment on above: LDL Guidelines: <100 Desirable 100-129 Near to/above Desirable 130-159 Borderline >159 Undesirable Direct (measured) LDL and calculated LDL are not interchangeable tests. Cholesterol.total/Ch olesterol in HDL [Mass ratio] 2.3 {ratio} NINF - 5 [facility] Interpretation and review of laboratory results Abnormal [facility] Triglyceride [Mass/Vol] 171 mg/dL High [facility] - 150 mg/dL [facility] Comment on above: Triglyceride Guidelines: <150 Desirable 150-199 Borderline 200-499 High >499 Very high Based on AHA Guidelines for fasting triglyceride, March 2012. [facility] Microalbumin, Uron 3 Albumin DL <= 20 mg/L (U) [Mass/Vol] 764 mg/L High [facility] - 21 mg/L [facility] Albumin/Creatinine DL <= 20 mg/L (U) [Ratio] 178 High [facility] Creatinine (U) [Mass/Vol] 428.7 mg/dL High 28.0 - 217.0 mg/dL [facility] Interpretation and review of laboratory results Abnormal [facility] T4, Freeon 12-19-2022 Free T4 [Mass/Vol] 1.5 ng/dL 0.9 - 1.7 ng/dL [facility] TSH w/reflex to FT4on 2022 Thyroid Stim. Horm. 6.76 uIU/mL High 0.30-5.00 [facility] Comment on above: Performed By: #### C P, CDP, TSHX #### [facility] [address] [place] [address] Judicial Law Clerk: Gerson Barton MD #### URNMAB, FT4, GLYHGB, VD25, LIPR #### [facility] [employer] [address] [place] [address] Judicial Law Clerk: Asad Draper MD TSH with Reflexon 12-19-2022 Interpretation and review of laboratory results Abnormal [facility] TSH Qn 6.76 m[IU]/L High [facility] Vitamin D 25 Hydroxyon 12-19 25-hydroxyvitamin D3 [Mass/Vol] 59.0 ng/mL 29.9 - PINF ng/mL [facility] Comment on above: Reference Range: Vitamin D status Range Deficiency <20 ng/mL Mild Deficiency 20-30 ng/mL Sufficiency 30-100 ng/mL Toxicity >100 ng/mL [facility] [employer] Relationships XR CHEST (2 VW)Ordered By: Ventura Whitlock on 12-08-2020 No acute cardiopulmonary disease. [employer] Phone: EXAMINATION: TWO XRA Y VIEWS OF THE CHEST 12/06/2020 7:41 pm COMPARISON: July 19, 2017. HISTORY: ORDERING SYSTEM PROVIDED HISTORY: Mild intermittent asthma without complication TECHNOLOGIST PROVIDED HISTORY: ASTHMA FINDINGS: No lines or tubes. Normal cardiomediastinal silhouette. The lungs are clear without focal consolidation or pleural effusion. No suspicious pulmonary nodules. No pulmonary edema. No pneumothorax. No acute osseous abnormality. [employer] Phone: [facility], [facility] Incoming Radiant Results From [employer] - 12/08/2020 8:26 PM EDT EXAMINATION: TWO [...] osseous abnormality. IMPRESSION: No acute cardiopulmonary disease. [employer] Phone: [employer] Phone: Discharge Summaryon 07-22-19 18 HIM IP Note OR Human Resources Generalist Normal [facility] CBCon 07-21-2017 Erythrocyte distribution width Auto Ratio (RBC) 12.9 % Normal 11.8-14.4 [facility] Comment on above: Performed By: #### BECCA MYLES ####[address] [address] Erythrocytes (RBC) 0.0 per 100 WBC Normal 0.0 M [facility] Comment on above: Result Comment: [address] [address] Performed By: #### BECCA MYLES ####[address] [address] Erythrocytes (RBC) 4.33 10*6/uL Normal 3.95-5.11 [facility] Comment on above: Performed By: #### BECCA MYLES ####[address] [address] Hematocrit (HCT) 38.1 % Normal 36.3-47.1 [facility] Comment on above: Performed By: #### BECCA MYLES ####[address] [address] Hemoglobin mass conc (Bld) 12.4 g/dL Normal 11.9-15.1 [facility] Comment on above: Performed By: #### VIRGEN MYLESR ####[address] [address] MCH 28.6 pg Normal 25.2-33.5 [facility] Comment on above: Performed By: #### BECCA MYLES ####[address] [address] MCHC mass conc (RBC) 32.5 g/dL Normal 28.4-34.8 [facility] Comment on above: Performed By: #### VIRGEN MYLESR ####[address] [place] [address] MCV 88.0 fL Normal 82.6-102.9 [facility] Comment on above: Performed By: #### BECCA MYLES ####[address] [place] [address] Platelet mean volume (PMV) 9.7 fL Normal 8.1-13.5 [facility] Comment on above: Performed By: #### VIRGEN MYLESR ####[facility] [address] [address] Platelets 198 10*3/uL Normal 138-453 [facility] Comment on above: Performed By: #### BECCA MYLES ####[address] [address] WBC (Leukocytes) 4.5 10*3/uL Normal 3.5-11.3 [facility] Comment on above: Performed By: #### BECCA MYLES ####[address] [address] Comp Metabolic Pr/rfx MGon 0 - Potassium molar conc 3.5 mmol/L Low 3.7-5.3 [facility] Comment on above: Performed By: #### BECCA MYLES ####[address] [address] (cont.) Normal [facility] Comment on above: Result Comment: Aver age GFR for 40-49 years old: 99 mL/min/1.73sq mChronic Kidney Disease: <60 mL/min/1.73sq mKidney failure: <15 mL/min/1.73sq meGFR calculated using average adult body mass. Additional eGFR calculator available at:http://www.Amplitude.HuStream/multiple_crcl_2012.htm[address] [address] Performed By: #### T VU LIPR ####[facility] [address] [place] [address] Alanine aminotransferase (ALT) 15 U/L Normal 5-33 [facility] Comment on above: Performed By: #### David WOMACK LIPR ####[facility] AnimaticsFbwktgapvnak[address] [place] [address] Albumin 3.9 g/dL Normal 3.5-5.2 [facility] Comment on above: Performed By: #### David WOMACK LIPR ####[facility] AnimaticsHtqlklhkpuhk[address] [place] [address] Albumin/Globulin Ratio 2.1 {ratio} Normal 1.0-2.5 [facility] Comment on above: Performed By: #### David WOMACK LIPR ####[facility] AnimaticsOjbomonaspsr[address] [place] [address] Alkaline Phos 34 U/L Low 35-104 [facility] Comment on above: Performed By: #### David WOMACK LIPR ####[facility] AnimaticsBctyfpyqeccz[address] [place] [address] Anion gap 12 mmol/L Normal 9-17 [facility] Comment on above: Performed By: #### David WOMACK LIPR ####[facility] AnimaticsZargezopvrkb[address] [place] [address] Aspartate aminotransferase (AST) 14 U/L Normal <32 [facility] Comment on above: Performed By: #### David WOMACK LIPR ####[facility] [address] [place] [address] Bilirubin Ql (U) 1.02 mg/dL Normal 0.3-1.2 [facility] Comment on above: Performed By: #### David WOMACK LIPR ####[facility] AnimaticsCqeymjwwmsaj[address] [place] [address] Calcium 9.0 mg/dL Normal 8.6-10.4 [facility] Comment on above: Performed By: #### BECCA MYLES ####[facility] [address] [place] [address] Chloride 99 mmol/L Normal 98-107 [facility] Comment on above: Performed By: #### VIRGEN MYLESR ####[facility] [address] [place] [address] CO2 24 mmol/L Normal 20-31 [facility] Comment on above: Performed By: #### BECCA MYLES ####[facility] [address] [place] [address] Creatinine 0.60 mg/dL Normal 0.50-0.90 [facility] Comment on above: Performed By: #### BECCA MYLES ####[facility] [address] [place] [address] eGFR (non-black) mL/min/{1.73_m2} Normal >60 [facility] Comment on above: Performed By: #### BECCA MYLES ####[facility] [address] [place] [address] Glucose mass conc 99 mg/dL Normal 70-99 [facility] Comment on above: Performed By: #### VIRGEN MYLESR ####[facility] [address]hcblrsrf8518 [place] [address] Protein 5.8 g/dL Low 6.4-8.3 [facility] Comment on above: Performed By: #### VIRGEN MYLESR ####[facility] [address] [place] [address] Sodium 135 mmol/L Normal 135-144 [facility] Comment on above: Performed By: #### BECCA MYLES ####[address] [place] [address] Urea nitrogen 21 mg/dL High 6-20 [facility] Comment on above: Performed By: #### BECCA MYLES ####[address] [place] [address] BUN/CRE Ratio NOT REPORTED Normal 9-20 [facility] Comment on above: Performed By: #### T BECCA WOMACK ####[address] [place] [address] Staging: NOT REPORTED Normal [facility] Comment on above: Performed By: #### BECCA MYLES ####[address] [place] [address] Magnesiumon 07-21-2017 Magnesium 1.9 mg/dL Normal 1.6-2.6 [facility] Comment on above: Result Comment: [employer] [facility] [address] [place] [address] Performed By: #### T BECCA WOMACK ####[facility] AnimaticsDgkupbdmqjnu[address] [place] [address] Plan of Careon 07-21-2017 HIM IP Note OR Human Resources Generalist Normal [facility] HIM IP Note OR Human Resources Generalist Normal [facility] HIM IP Note OR Human Resources Generalist Normal [facility] Progress Noteon 07-21-2017 HIM IP Note OR Human Resources Generalist Normal [facility] HIM IP Note OR Human Resources Generalist Normal [facility] CARDIAC STRESS TESTon 2017 CARDIAC STRESS TEST [address] [address] CARDIAC STRESS TESTPATIENT NAME: AISHWARYA DUNN : 1965MED REC NO: [id number] [id number] ADMIT DATE: 07/20/2017PROVIDER: Ang CraigARDIOLITE TREADMILL STRESS [...] of Nuclear MedicineANG SHELLMID: 07/20/2017 15:47:34 /PGAYTANJob#: [id number] Doc#: UnknownPositive result faxed to the Unit Normal [facility] Consulton 07-20-2017 HIM IP Note OR Human Resources Generalist Normal [facility] History and Physicalon 07-20 [facility] IP Note OR Human Resources Generalist Normal [facility] K (Potassium)on 07-20-2017 Potassium molar conc 3.9 mmol/L Normal 3.7-5.3 [facility] Comment on above: Result Comment: [facility] [employer] [facility] [place], [place] [phone] Performed By: #### T BECCA WOMACK ####[facility] [address] [place] [address] [phone] Lipid Profileon 07-20-2017 Cholesterol 162 mg/dL Normal <200 [facility] Comment on above: Result Comment: Chol esterol Guidelines: <200 Desirable 200-240 Borderline >240 Undesirable Performed By: #### T BECCA WOMACK ####[facility] [address] [place] [address] [id number] Cholesterol to HDL Ratio 3.4 {ratio} Normal <5 [facility] Comment on above: Performed By: #### T VU, LIPR ####[address] [place] [address] HDL Cholesterol 48 mg/dL Normal >40 [facility] Comment on above: Result Comment: HDL Guidelines: <40 Undesirable 40-59 Borderline >59 Desirable Performed By: #### VIRGEN MYLESR ####[address] [address] LDL Cholesterol 84 mg/dL Normal 0-130 [facility] Comment on above: Result Comment: LDL Guidelines: <100 Desirable 100-129 Near to/above Desirable 130-159 Borderline >159 UndesirableDirect (measured) LDL and calculated LDL are not interchangeable tests. Performed By: #### BECCA MYELS ####[facility] [address] [place] [address] Triglyceride 151 mg/dL High <150 [facility] Comment on above: Result Comment: Trig lyceride Guidelines: <150 Desirable 150- 199 Borderline 200-499 High >499 Very high Based on AHA Guidelines for fasting triglyceride, March 2012.[employer] [address] [place] [address] Performed By: #### BECCA MYLES ####[facility] [address] [place] [address] Cholesterol in VLDL mass conc NOT REPORTED Normal 1-30 [facility] Comment on above: Performed By: #### BECCA MYLES ####[facility] [address] [place] [address] Magnesiumon 07-20-2017 Magnesium 1.8 mg/dL Normal 1.6-2.6 [facility] Comment on above: Result Comment: [employer] [address] [place] [address] Performed By: #### BECCA MYLES ####[facility] Fle[address] [place] [address] NM MYOCARDIAL SPECT REST EXE RCISE OR [...] Revascularization in Patients With Stable Ischemic Heart DiseaseREGIONS [facility] Volume 69, Issue October 2016High risk (>3% annual or NH)1. Severe resting LV dysfunction (LVEF >35%) not [...] e risk (1% to 3% annual or NH)1. Mild/moderate resting LV dysfunction (LVEF 35% to [...] coronarybed.Low Risk (Less than 1% annual or NH)1. Normal or small myocardial perfusion defect at rest or with stressencumbering less than 5% of the myocardium.Interpreted by:JENNI Montañoigned by:Giovanny Lan MD07/20/17inal result Normal [facility] Plan of Careon 07-20-2017 HIM IP Note OR Human Resources Generalist Normal [facility] HIM IP Note OR Human Resources Generalist Normal [facility] Procedureon 07-20-2017 HIM IP Note OR Human Resources Generalist Normal [facility] Progress Noteon 07-20-2017 HIM IP Note OR Human Resources Generalist Normal [facility] HIM IP Note OR Human Resources Generalist Normal [facility] TSH w/reflex to FT4on 2017 Thyroid stimulating hormone (TSH) 0.22 m[IU]/L Low 0.30-5.00 [facility] Comment on above: Result Comment: [facility] [employer] [address] [place] [address] Performed By: #### T SHX, FT4 ####[address] [address] Thyroxine, Freeon 07-20-2017 Thyroxine, Free 1.52 ng/dL Normal 0.93-1.70 [facility] Comment on above: Result Comment: [facility] [employer] [address] [place] [address] Performed By: #### T SHX, FT4 ####[address] [address] Troponinon 07-20-2017 Troponin I.cardiac mass conc Normal [facility] Comment on above: Result Comment: Refe rence Range: <0.03 Within reference range. 0.03-0.09 Possible myocardial damage.Repeat at appropriate intervals to rule out chronic elevation. >= 0.10 Indicative of myocardial damage.Patients with high levels of Biotin oral intake (i.e >5mg/day) may have falsely decreased Troponin T levels. Samples collected within 8 hours of biotin intake may require additional information for diagnosis.[address] [address] Performed By: #### BECCA MYLES ####[address] [address] Troponin T.cardiac mass conc ug/L Normal <0.03 [facility] Comment on above: Result Comment: Trop onin T results cannot be compared to Troponin-I results. Performed By: #### BECCA MYLES ####[address] [address] Encounters Encounter Date Encounter Type Care Provider Facility Start: 01-22-2024 End: 01-22-2024 ambulatory JEANINE WHITLOCK Not Available Start: 12-18-2023 End: 12-18-2023 ambulatory POLO DIAZ Not Available Start: 11-19-2023 End: 11-19-2023 ambulatory JEANINE WHITLOCK Not Available Start: 10-11-2023 End: 10-11-2023 ambulatory POLO DIAZ Not Available Start: 07-15-2023 End: 07-18-2023 ambulatory [facility] Start: 07-15-2023 End: 07-17-2023 Subsequent hospital visit by physician Ghada Dexa [facility] Dexa Scan Comment on above: Age-related osteopor osis without current pathological fracture Start: 05-24-2023 End: 05-24-2023 ambulatory JEANINE WHITLOCK Not Available Start: 05-10-2023 End: 05-11-2023 ambulatory [facility] Start: 12-27-2022 End: 12-28-2022 ambulatory JEANINE WHITLOCK [facility] Start: 12-19-2022 End: 12-20-2022 ambulatory [facility] Start: 12-19-2022 End: 12-19-2022 Subsequent hospital visit by physician Jeanine Whitlock Work Phone: [facility] Start: 12-06-2020 End: 12-08-2020 Subsequent hospital visit by physician Maddie Sewell Dr Room 2 [facility] Radiology Comment on above: Mild intermittent as thma without complication Start: 07-20-2017 End: 07-22-2017 Evaluation and management of inpatient JEANINE Liban WHITLOCK [facility] Procedures Date Procedure Procedure Detail Performing Clinician Start: 07-15-2023 Dxa bone density thomas dy 1/> sites axial skel Tyler Ramey MD Work Phone: Start: 12-19-2022 Comprehensive metabo lic panel Polo Escobedo [employer] - MATERIALS ASSISTANT Work Phone: Start: 12-19-2022 Lipid panel Polo ocampo SERVICER TRA[employer] TRA[employer]ERS - MATERIALS ASSISTANT Work Phone: Start: 12-19-2022 Urine albumin quantitative Polo Escobedo SERVICER [employer] - MATERIALS ASSISTANT Work Phone: Start: 12-06-2020 Radiologic exam ches t 2 views Jeanine L Rine Work Phone: Start: 01-23-2018 Colonoscopy Jeanine Rine Work Phone: Start: 07-22-2017 MANAGER PUBLIC REPORT JEANINE R INE Start: 07-22-2017 DISCHARGE [...] Scre[facility] for malign ant [facility]oplasm [facility] Start: 02-13-2027 DTaP/Tdap/Td vaccine (3 - Td or Tdap) DTaP/Tdap/Td vaccine (3 - Td or Tdap) [facility] Start: 05-24-2025 Screening for malign ant neoplasm of breast [facility] Start: 12-20-2023 GFR test (Diabetes, CKD 3-4, OR last GFR 15-59) GFR test (Diabetes, CKD 3-4, OR last GFR 15-59) [facility] [employer] Start: 12-20-2023 Hemoglobin A1c measurement A1C test (Diabetic or Prediabetic) [facility] Start: 12-20-2023 Lipid panel [facility] [employer] Start: 12-20-2023 Urine screening for protein Diabetic Alb to Cr ratio (uACR) test [facility] Start: 01-01-2023 Influenza vaccination Flu vaccine (# 1) [facility] Start: 02-01-2021 [facility] Start: 12-02-2020 COVID-19 Vaccine (3 - Booster for Moderna series) COVID-19 Vaccine (3 - Booster for Moderna series) [facility] Start: 01-18-2020 Screening for malign ant neoplasm of breast Breast cancer screen [facility] Start: 07-23-2018 Creatinine measurement Creatinine mo arianna [facility] Phone: Start: 07-23-2018 GFR test (Diabetes, CKD 3-4, OR last GFR 15-59) GFR test (Diabetes, CKD 3-4, OR last GFR 15-59) [facility] Start: 07-23-2018 Potassium monitoring Potassium monit oring [facility] Phone: Start: 07-20-2018 Lipid panel [facility] Start: 07-01-2018 Pneumococcal 0-64 ye ars Vaccine (2 - PPSV23 if available, else PCV20) Pneumococcal 0-64 years Vaccine (2 - PPSV23 if available, else PCV20) [facility] Start: 07-01-2018 Pneumococcal 0-64 ye ars Vaccine (2 - PPSV23 or PCV20) Pneumococcal 0-64 years Vaccine (2 - PPSV23 or PCV20) [facility] Start: 2017 Shingles Vaccine (1 of 2) Shingles V accine (1 of 2) [facility] Start: 2012 Screening for malign ant neoplasm of colon [facility] Start: 06-15-2012 Hemoglobin A1c measurement A1C test (Diabetic or Prediabetic) [facility] Start: 1997 Screening for malign ant neoplasm of cervix [facility] Start: 1988 Screening for malign ant neoplasm of cervix [facility] Start: 1986 Hepatitis B vaccine (1 of 3 - Risk 3-dose series) Hepatitis B vaccine (1 of 3 - Risk 3-dose series) [facility] Start: 1985 Diabetic microalbumi gabo test Diabetic microalbuminuria test [facility] Phone: Start: 1985 Glaucoma screening Diabetic retinal exam [facility] Start: 1985 Hepatitis C screening Hepatitis C sc reen [facility] Start: 1985 Urine screening for protein Diabetic Alb to Cr ratio (uACR) test [facility] Start: 1982 HIV screening HIV screen [facility] [employer] Start: 1979 Depression Monitoring Depression Mon itoring [facility] Start: 1977 Diabetic foot examination Diabetic f oot exam [facility] Start: 1977 Diabetic retinal exam Diabetic retin al exam [facility] Phone: Start: 1973 Pneumococcal 0-64 ye ars Vaccine (1 of 2 - PPSV23) Pneumococcal 0-64 years Vaccine (1 of 2 - PPSV23) [facility] Phone: Start: 01-23-1968 COVID-19 Vaccine (#1) COVID-19 Vacci ne (#1) [facility] Start: 1967 Hepatitis B vaccine (1 of 3 - 3-dose series) Hepatitis B vaccine (1 of 3 - 3-dose series) [facility] Start: 1967 Hepatitis C screening Hepatitis C sc reen [facility] Phone: End: 12-19-2022 Hemoglobin A1c/Hemoglobin.total in Blood [employer] Phone: Comment on above: Once for 1 Occurrenc es starting 12/19/2022 until 12/19/2022 Payers Date Payer Category Payer Private Health Insurance [id number] 2019 Unknown [id number] 2014 Unknown [id number] 1967 Unknown [id number] 2.16.8 [id number] 1967 Unknown [id number] 2.16.8 [id number] 1967 Unknown [id number] 2.16.8 [id number] 1967 Unknown [id number] 2.16.8 [id number] 1967 Unknown [id number] 2.16.84 [id number] 1967 Unknown [id number] 2.16.84 [id number] 1967 Unknown [id number] 2.16.84 [id number] 1967 Unknown [id number] 2.16.84 [id number] 1967 Unknown [id number] [id number] 1967 Unknown [id number] Social History Date Type Detail Facility Start: 07-19-2017 End: 01-23-2018 Tobacco smoking status [facility] Never smoker [facility] Start: 07-19-2017 End: 01-23-2018 Tobacco use and exposure Never used [facility] Start: 01-23-2018 Alcohol intake Current non-dr heating and ventilating tender of alcohol (finding) [facility] Phone: Start: 1965 Sex Assigned At Not on file [facility] [employer] Phone: Start: 01-25-2019 History of Social function [facility] Start: 01-25-2019 [facility] Evaluation note Note Date & Type Note Facility Evaluation note Diagnosis Mild intermittent asthma without complication Unspecified asthma documented in this encounter [facility] Phone: Evaluation note Note Date & Type Note Facility Evaluation note Diagnosis Age-related osteoporosis without current pathological fracture Senile osteoporosis documented in this encounter [facility] Summary Purpose Family History No Family History Records FoundNo Family History Records FoundNo Family History Records FoundNo Family History Records Found Advance Directives No Advanced Directives Records FoundDocuments on File Type Date Recorded Patient Network Infrastructure Architect Expl anation ACP-Advance Directive ACP-Power of Plant Assigner Latest Code Status on File Code Status [...] DENSITY AXIAL SKELETON Tyler Ramey MD [address] [place] [address] Referral ID Status Reason Start Date Expiration Date V isits Requested Visits Authorized [id number] Pending Review 05/24/2023 05/23/2024 1 1 Additional Source Comments INFORMATION SOURCE (unrecogn ized section and content) DATE CREATED AUTHOR 11/22/2017 [facility] DATE CREATED AUTHOR AUTHOR'S ORGANIZ ATION 05/15/2023 [facility] DATE CREATED AUTHOR AUTHOR'S ORGANIZ ATION 07/18/2023 [facility] DATE CREATED AUTHOR AUTHOR'S ORGANIZ ATION 01/24/2024 [facility] [employer] Care Teams (unrecognized sec tion and content) Aerospace Physiological Technician Relationship Specialty Start Date End Date Jeanine Whitlock [address] [place] [address] PCP - General 04/16/16 Aerospace Physiological Technician Relationship Specialty Start Date End Date JoselinesjJeanine [address] [place] [address] PCP - General 04/16/16 Reason for Visit (unrecogniz ed section and content) Specialty Diagnoses / Procedures Referred By Contac t Referred To Contact Radiology Diagnoses Age-related osteoporosis without current pathological fracture Procedures DEXA BONE DENSITY 2 SITES DEXA BONE DENSITY AXIAL SKELETON Tyler Ramey MD [address] [place] [id number] Referral ID Status Reason Start Date Expiration Date V isits Requested Visits Authorized [id number] Pending Review 05/24/2023 05/23/2024 1 1 FOR [...] BE BASED ON THE PRIMARY CLINICAL RECORDS. [employer] provides no warranty or guarantee of the accuracy or completeness of information in this document.
== END 2024-02-26 08:38 | disposition home or self-care (01) ==
LOC: EC 08:37
PROVIDERS: Visit Provider Podiatrist Foot & Ankle Surgery
DX: M79.672 Pain in left foot (principal); M24.675 Ankylosis, left foot; Z98.890 Other specified postprocedural states
CPT/HCPCS: 73630

== ENCOUNTER 2024-03-30 12:23 | Outpatient (OUT) | payer OTHER, SELFPAY ==
--- OUTSIDE RECORDS SUMMARY | 2024-03-30 12:41 | XMS_ITS | CCD ---
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 Jeanine L Unavailable Allergies Allergy Classification Reported Allergen(s) Allergy Type Date of Onset Reaction(s) Facility Unclassified (7 sources) Iodides Propensity to adverse reactions to drug 3 [facility] Work Phone: Unclassified (7 sources) Shellfish-Derive d Products Propensity to adverse reactions to drug 3 [facility] (2 sources) Seafood Propensity to adverse reactions to drug 3 [facility] (8 sources) Iodides Propensity to adverse reactions to drug 3 Hives [facility] Work Phone: (6 sources) Lisinopril Allergy to substance 3 [facility] Medications Current Medications Medication Drug Class(es) Dates Sig (Normalized) Sig (Original) ALPRAZolam 0.25 mg oral tablet (9 sources) Benzodiazepine ALPRAZolam (Xana x) 0.25 MG tablet Indications: Anxiety Take 0.25 mg by mouth as needed at bedtime for anxiety. Active amLODIPine 5 mg oral tablet (6 sources) Dihydropyridine Calcium Channel Ayanna Start: 3 take 1 tablet by mouth in the morning amLODIPine (Norvasc) 5 MG tablet Indications: Essential hypertension (CMS/HCC) Take 1 tablet (5 mg) by mouth in the morning. 90 tablet 3 05/28/2023 Active ARIPiprazole 5 mg oral tablet (6 sources) Atypical Antipsychotic Start: 3 take 1 tablet by mouth in the morning ARIPiprazole (Abilify) 5 MG tablet Take 5 mg by mouth in the morning. 12/31/2022 Active ascorbic acid 500 mg oral capsule (6 sources) Vitamin C Ascorbic Acid (V itamin C) 500 MG capsule Indications: Wellness examination 1 (one) time each day at the same time. Active atorvastatin 10 mg oral tablet (7 sources) HMG-CoA Reductase Inhibitor Start: 4 atorvastatin (Lipitor) 10 MG tablet Indications: Pure hypercholesterolemia (CMS/HCC) TAKE 1 TABLET IN THE MORNING 90 tablet 1 03/25/2024 Active Start: 11-19-2023 End: 03-25-2024 take 0.5 tablet by mouth once daily atorvastatin (Lipitor) 10 MG tablet Indications: Pure hypercholesterolemia (CMS/HCC) Take 0.5 tablets (5 mg) by mouth Daily 11/19/2023 03/25/2024 Discontinued B Complex Vitamins (B COMPLEX 1 PO) (6 sources) B Complex Vitami ns (B COMPLEX 1 PO) Indications: Wellness examination as directed Orally Active b complex vitamins capsule (3 sources) take 1 capsule by mouth once daily b complex vitamins capsule Take 1 capsule by mouth daily. 0 Active bisoprolol fumarate 10 mg oral tablet (6 sources) beta-Adrenergic Ayanna Start: 05-28-20 take 1 tablet by mouth in the morning bisoprolol (Zebeta) 10 MG tablet Indications: Essential hypertension (CMS/HCC) Take 1 tablet (10 mg) by mouth in the morning. 90 tablet 3 05/28/2023 Active Blood Glucose Monitoring Suppl (FreeStyle Lite) w/Device kit (6 sources) Start: 11-20-19 24 Blood Glucose Monitoring Suppl (FreeStyle Lite) w/Device kit USE DIRECTED 11/20/2023 Active calcium carbonate 500 mg oral tablet (6 sources) take 1 capsule by mouth in the morning calcium carbonate (Os-Wilfredo) 1250 (500 Ca) MG tablet Indications: Wellness examination Take 1 capsule by mouth in the morning. Active Calcium Carbonate / Vitamin D (3 sources) take 1 tablet by mouth once daily Calcium Carbonate-Vitamin D (CALCIUM + D PO) Take 1 tablet by mouth daily 0 Active chlorthalidone 50 mg oral tablet (6 sources) Thiazide-like Diuretic Start: 05-28-20 23 chlorthalidone (Hygroton) 50 MG tablet Indications: Essential hypertension (CMS/HCC) TAKE 1 TABLET EVERY MORNING WITH FOOD 90 tablet 3 05/28/2023 Active Continuous Glucose Sensor (Dexcom G7 Sensor) [facility] (5 sources) Start: 03-16-20 24 Continuous Glucose Sensor (Dexcom G7 Sensor) [facility] Indications: Type 2 diabetes mellitus without complication, without long-term current use of insulin (CMS/HCC) 1 Units every 14 (fourteen) days 2 each 11 03/16/2024 Active Start: 03-06-2024 Continuous Glu cose Sensor (Dexcom G7 Sensor) [facility] Indications: Type 2 diabetes mellitus without complication, without long-term current use of insulin (CMS/HCC) 1 Units every 14 (fourteen) days 2 each 11 03/06/2024 Active diphenhydrAMINE hydrochloride 50 mg oral capsule (3 sources) Histamine-1 Receptor Antagonist Start: 07-23-2017 take 1 capsule by mouth every six hours as needed diphenhydrAMINE (BENADRYL) 50 MG capsule Take 1 capsule by mouth every 6 hours as needed for Itching 20 capsule 0 07/23/2017 Active DULoxetine 60 mg delayed release oral capsule (9 sources) Serotonin and Norepinephrine Reuptake Inhibitor take 1 capsule by mouth in the morning DULoxetine (Cymbalta) [address] capsule Indications: Degenerative cervical disc Take 60 mg by mouth in the morning. Active empagliflozin 25 mg oral tablet (8 sources) Sodium-Glucose Cotransporter 2 Inhibitor Start: 03-06-2024 End: 03-06-2025 take 1 tablet by mouth once daily empagliflozin (Jardiance) 25 MG Indications: Type 2 diabetes mellitus without complication, without long-term current use of insulin (CMS/[facility]) Take 1 tablet (25 mg) by mouth Daily 30 tablet 11 03/06/2024 03/06/2025 Active Start: 01-22-2024 End: 01-21-2025 take 1 tablet by mouth once daily empagliflozin (Jardiance) 10 MG Indications: Type 2 diabetes mellitus without complication, without long-term current use of insulin (CMS/[facility]) Take 1 tablet (10 mg) by mouth Daily 30 tablet 11 01/22/2024 03/06/2024 Discontinued (Therapy completed) fluconazole 100 mg oral tablet (6 sources) Azole Antifungal Start: 02-28-2024 take 1 tablet by mouth once daily fluconazole (Diflucan) 100 MG tablet Indications: Sandi vaginitis Take 1 tablet (100 mg) by mouth Daily 7 tablet 02/28/2024 Active levothyroxine sodium 0.1 mg oral tablet (9 sources) l-Thyroxine Start: 12-12-2023 Synthroid 100 MCG tablet Indications: Acquired hypothyroidism (CMS/[facility]) TAKE 1 TABLET IN THE MORNING BEFORE A MEAL 90 tablet 1 12/12/2023 Active take 1 tablet by mouth once jr y levothyroxine (SYNTHROID) 88 MCG tablet Take 88 [...] nightly as needed for Anxiety. 0 Active losartan potassium 50 mg oral tablet (7 sources) Angiotensin 2 Receptor Ayanna Start: take 0.5 tablet by mouth once daily losartan (Cozaar) 50 MG tablet Indications: Type 2 diabetes mellitus without complication, without long-term current use of insulin (CMS/[facility]) Take 0.5 tablets (25 mg) by mouth Daily 45 tablet 1 03/27/2024 Active Start: 01-22-2024 End: 03-27-2024 take 0.5 tablet by mouth once daily losartan (Cozaar) 50 MG tablet Indications: Type 2 diabetes mellitus without complication, without long-term current use of insulin (CMS/HCC) Take 0.5 tablets (25 mg) by mouth Daily 01/22/2024 03/27/2024 Discontinued (Reorder) meloxicam 15 mg oral tablet (6 sources) Nonsteroidal Anti-inflammatory Drug Start: 05-28-2023 take 1 tablet by mouth in the morning meloxicam (Mobic) 15 MG tablet Indications: Degenerative cervical disc Take 1 tablet (15 mg) by mouth in the morning. 90 tablet 3 05/28/2023 Active 24 hr metFORMIN hydrochloride 500 mg extended release oral tablet (9 sources) Biguanide Start: 05-28-2023 take 2 tablets by mouth every twenty-four hours in the morning metFORMIN XR (Glucophage-XR) 500 MG 24 hr tablet Indications: Type 2 diabetes mellitus without complication, without long-term current use of insulin (CMS/HCC) Take 2 tablets (1,000 mg) by mouth in the morning and 2 tablets (1,000 mg) before bedtime. 360 tablet 3 05/28/2023 Active take 2 tablets by mo ut twice daily at mealtime metFORMIN (GLUCOPHAGE) 500 MG tablet Rafael e 500 mg by mouth 2 times daily (with meals) Take two tablets by mouth two times daily 0 Active montelukast 10 mg oral tablet (7 sources) Leukotriene Receptor Antagonist Start: 03-25-2024 montelukast (Singula ir) 10 MG tablet Indications: Environmental and seasonal allergies TAKE 1 TABLET IN THE MORNING 90 tablet 3 03/25/2024 Active Start: 05-28-2023 End: 03-25-2024 take 1 tablet by mouth in the morning montelukast (Singulair) 10 MG tablet Indications: Environmental and seasonal allergies Take 1 tablet (10 mg) by mouth in the morning. 90 tablet 3 05/28/2023 03/25/2024 Discontinued Semaglutide,0.25 or 0.5MG/DOS, (Ozempic, 0.25 or 0.5 MG/DOSE,) 2 MG/3ML solution pen-injector (3 sources) Start: 03-10-2024 Semaglutide,0.25 or 0.5MG/DOS, (Ozempic, 0.25 or 0.5 MG/DOSE,) 2 MG/3ML solution pen-injector Indications: Type 2 diabetes mellitus with hyperglycemia, with long-term current use of insulin (CMS/HCC) Inject 0.25 mg under the skin 1 (one) time per week 3 mL 1 03/10/2024 Active therapeutic multivitamin-minerals (THERAGRAN-M) tablet (3 sources) take 1 tablet by mouth once daily therapeutic multivitamin-minerals (THERAGRAN-M) tablet Take 1 tablet by mouth daily. 0 Active therapeutic multivitamin-minerals (Theragran-M) tablet (6 sources) take 1 tablet by mouth once daily therapeutic multivitamin-minerals (Theragran-M) tablet Take 1 tablet by mouth Daily Active traZODone hydrochloride 150 mg oral tablet (9 sources) Serotonin Reuptake Inhibitor traZODone (Desyrel) 150 MG tablet Indications: Insomnia due to other mental disorder Take 75 mg by mouth as needed at bedtime Active take 1 tablet by mouth once jr y traZODone (DESYREL) 150 MG tablet Take 150 mg by mouth nightly 0 Active zinc gluconate 50 mg oral tablet (6 sources) take 1 tablet by katiana th in the morning zinc gluconate 50 MG tablet Indications: Wellness examination Take 50 mg by mouth in the morning. Active Completed/Discontinued Medications Medication Drug Class(es) Dates Sig (Normalized) Sig (Original) acetaminophen 325 mg / oxyCODONE hydrochloride 5 mg oral tablet (3 sources) Opioid Agonist Start: 01-16-2024 End: 03-06-2024 oxyCODONE-acetamin ophen (Percocet) 5-325 MG tablet every 4 (four) hours 01/16/2024 03/06/2024 Discontinued (Therapy completed) aspirin 325 mg oral tablet (9 sources) Platelet Aggregation Inhibitor, Nonsteroidal Anti-inflammatory Drug Start: 01-16-2024 End: 03-06-2024 take 1 tablet by mouth in the morning [facility] Aspirin 325 MG tablet Take 325 mg by mouth in the morning and 325 mg before bedtime. 01/16/2024 03/06/2024 Discontinued (Therapy completed) Start: 05-10-2023 End: 05-09-2024 take 1 tablet by mouth in the morning aspirin 81 MG EC tablet Indications: Type 2 diabetes mellitus without complication, without long-term current use of insulin (CMS/HCC) Take 1 tablet (81 mg) by mouth in the morning. 30 tablet 11 05/10/2023 05/09/2024 Active Problems Active Problems Problem Classification Problem Date Documented Date Episodic/Chronic Acquired foot deformities (16 sources) Toe joint rigid; Translations: [Hallux rigidus, left foot] Onset: 01-21-2024 01-21-2024 Chronic Anxiety disorders (20 sources) Panic attack; Translations: [Panic disorder [episodic paroxysmal anxiety]] Onset: 07-20-2017 Resolved: 03-06-2024 07-22-2017 Chronic Asthma (9 sources) Mild intermittent asthma; Translations: [Mild intermittent asthma, uncomplicated] Onset: 11-09-2022 Chronic Diabetes mellitus with complications (9 sources) Hyperglycemia due to type 2 diabetes mellitus; Translations: [Type 2 diabetes mellitus with hyperglycemia] Onset: 01-21-2024 01-21-2024 Chronic Diabetes mellitus without complication (20 sources) Diabetes mellitus; Translations: [Type 2 diabetes mellitus without complications] Onset: 11-09-2022 Resolved: 05-10-2023 07-22-2017 Chronic Disorders of lipid metabolism (9 sources) Pure hypercholesterolemia; Translations: [Pure hypercholesterolemia, unspecified] Onset: 11-09-2022 11-09-2022 Chronic Essential hypertension (13 sources) Hypertensive disorder; Translations: [Essential (primary) hypertension] Onset: 11-09-2022 07-22-2017 Chronic Immunizations and screening for infectious disease (2 sources) Immunization due; Translations: [Encounter for immunization] 03-06-2024 Episodic Miscellaneous mental health disorders (2 sources) Primary insomnia; Translations: [Primary insomnia] 03-06-2024 Chronic Mood disorders (11 sources) Severe major depression, single episode, without psychotic features; Translations: [Major depressive disorder, single episode, severe without psychotic features] Onset: 07-20-2017 07-22-2017 Chronic Nutritional deficiencies (10 sources) Vitamin D deficiency, unspecified; Translations: [Vitamin D deficiency] Onset: 11-09-2022 Chronic Osteoporosis (2 sources) Senile osteoporosis; Translations: [Age-related osteoporosis without current pathological fracture] Onset: 07-15-2023 07-15-2023 Chronic Other nutritional; endocrine; and metabolic disorders (6 sources) Obesity; Translations: [Obesity, unspecified] Onset: 11-09-2022 11-09-2022 Chronic Other nutritional; endocrine; and metabolic disorders (2 sources) Body mass index 30+ - obesity; Translations: [Body mass index (BMI) 38.0-38.9, adult] 03-06-2024 Chronic Other upper respiratory disease (9 sources) Allergic disposition; Translations: [Other allergic rhinitis] Onset: 11-09-2022 11-09-2022 Chronic Spondylosis; intervertebral disc disorders; other back problems (8 sources) Degeneration of cervical intervertebral disc; Translations: [Other cervical disc degeneration, unspecified cervical region] Onset: 11-09-2022 11-09-2022 Chronic Thyroid disorders (10 sources) Hypothyroidism, unspecified; Translations: [Acquired hypothyroidism] Onset: 11-09-2022 Chronic Past or Other Problems Problem Classification [...] study] Onset: 07-21-2017 Resolved: 07-22-2017 07-22-2017 Episodic Residual codes; unclassified (6 sources) Insomnia; Translations: [Insomnia, unspecified] Onset: 11-09-2022 11-09-2022 Episodic Results Test Name Value Interpretation Reference Range Facility DEXA BONE DENSITY 2 SITESon 07-17-2023 DEXA BONE DENSITY 2 SITES DEXA BONE DENSITY 2 SITES 07/15/2023 12:21 PM EST Indication: Screening. Comparison: Accurate comparison is not possible due to differences in equipment. [employer]. Lumbar spine and bilateral hips. Lumbar spine [...] Bernardo Squires MD 07/17/23 Final result Normal [facility] DXA Bone [Mass/Area] Bone de nsityon 07-17-2023 Some evidence of elevated bone mineral density [facility] DEXA BONE DENSITY 2 SITES 07/15/2023 12:21 PM EST Indication: Screening. Comparison: Accurate comparison is not possible due to differences in equipment. [employer]. Lumbar spine and bilateral hips. Lumbar spine [...] density 1.419 g/sq cm. T score 3.3. [facility] Bernardo Squires MD - 07/17/2023 DEXA BONE DENSITY 2 SITES 07/15/2023 12:21 PM EST Indication: Screening. Comparison: Accurate comparison is not possible due to differences in equipment. [employer]. Lumbar spine and bilateral hips. Lumbar spine [...] Some evidence of elevated bone mineral density [facility] DXA Bone [Mass/Area] Bone de nsityOrdered By: Bernardo Squires on 07-17-2023 [facility] Work Phone: DXA Bone [Mass/Area] Bone de nsityon 07-15-2023 Radiology Study observation (narrative) FAUZIA NIXON [facility] BI MAMMOGRAM SCREENING TOMOS YNTHESIS BILATERALon 05-24-2023 [...] IS VERY IMPORTANT TO YOUR HEALTH. THE [employer] GUIDELINES RECOMMEND THAT WOMEN 40 [...] Not Available Comment on above: Order Comment: [facility] CBC with Diffon 12-27-2022 Abs. Basophil 0.06 k/uL Normal 0.00-0.20 [facility] Comment on above: Performed By: #### C DP #### [facility] [address] [place] [address] [employer]: Gerson Barton MD Abs.Imm.Granulocyte 0.08 k/uL Normal 0.00-0.30 [facility] Comment on above: Performed By: #### C DP #### [facility] [address] [place] [address] [employer]: Gerson Barton MD Abs.Neutrophil (Seg) 6.19 k/uL Normal 1.50-8.10 [facility] Comment on above: Performed By: #### C DP #### [facility] [address] [place] [address] [place] [address] [employer]: Gerson Barton MD Basophils/100 WBC (Bld) 1 % Normal 0-2 [facility] Comment on above: Performed By: #### C DP #### [address] [place] [id number] [employer]: Gerson Barton MD Eosinophils (Bld) [#/Vol] 0.12 10*3/uL Normal 0.00-0.44 [facility] Comment on above: Performed By: #### C DP #### [address] [place] [address] [employer]: Gerson Barton MD Eosinophils/100 WBC (Bld) 1 % Normal 1-4 [facility] Comment on above: Performed By: #### C DP #### [address] [place] [address] [employer]: Gerson Barton MD Erythrocyte distribution width (RBC) [Ratio] 14.0 % Normal 11.8-14.4 [facility] Comment on above: Performed By: #### C DP #### [address] [place], [facility] [employer]: Gerson Barton MD Hematocrit (Bld) [Volume fraction] 44.1 % Normal 36.3-47.1 [facility] Comment on above: Performed By: #### C DP #### [address] [place] [id number] [employer]: Gerson Barton MD Hemoglobin (Bld) [Mass/Vol] 14.5 g/dL Normal 11.9-15.1 [facility] Comment on above: Performed By: #### C DP #### [facility] [address] [place], [place] [id number] [employer]: Gerson Barton MD Immature granulocytes/100 WBC (Bld) 1 % High 0 [facility] Comment on above: Performed By: #### C DP #### [facility] [address] [place], [facility] [employer]: Gerson Barton MD Lymphocytes (Bld) [#/Vol] 3.02 10*3/uL Normal 1.10-3.70 [facility] Comment on above: Performed By: #### C DP #### [address] [place], [facility] [employer]: Gerson Barton MD Lymphocytes/100 WBC (Bld) 29 % Normal 24-43 [facility] Comment on above: Performed By: #### C DP #### [address] [place], [place] [id number] [employer]: Gerson Barton MD MCH (RBC) [Entitic mass] 29.2 pg Normal 25.2-33.5 [facility] Comment on above: Performed By: #### C DP #### [address] [place], [facility] [employer]: Gerson Barton MD MCHC (RBC) [Mass/Vol] 32.9 g/dL Normal 28.4-34.8 [facility] Comment on above: Performed By: #### C DP #### [facility] [address] [place] [facility] [employer]: Gerson Barton MD MCV (RBC) [Entitic vol] 88.7 fL Normal 82.6-102.9 [facility] Comment on above: Performed By: #### C DP #### [facility] [address] [place] [address] [place] [place] [facility] [employer]: Gerson Barton MD Monocytes (Bld) [#/Vol] 0.98 10*3/uL Normal 0.10-1.20 [facility] Comment on above: Performed By: #### C DP #### [facility] [address] [place], [place] [id number] [employer]: Gerson Barton MD Monocytes/100 WBC (Bld) 9 % Normal 3-12 [facility] Comment on above: Performed By: #### C DP #### [facility] [address] [place] [address] [employer]: Gerson Barton MD Neutrophil (Seg) 59 % Normal 36-65 [place] Comment on above: Performed By: #### C DP #### [facility] [address] [place], [place] [id number] [employer]: Gerson Barton MD NRBC Automated 0.0 per 100 WBC Normal 0.0 [facility] Comment on above: Performed By: #### C DP #### [facility] [address] [place] [address] [place], [place] [id number] [employer]: Gerson Barton MD Platelet mean volume (Bld) [Entitic vol] 9.3 fL Normal 8.1-13.5 [facility] Comment on above: Performed By: #### C DP #### [address] [place] [address] [employer]: Gerson Barton MD Platelets (Bld) [#/Vol] 365 10*3/uL Normal 138-453 [facility] Comment on above: Performed By: #### C DP #### [facility] [address] [place] [address] [place], [place] [id number] [employer]: Gerson Barton MD RBC (Bld) [#/Vol] 4.97 10*6/uL Normal 3.95-5.11 [facility] Comment on above: Performed By: #### C DP #### [facility] [address] [place], [place] [id number] [employer]: Gerson Barton MD WBC (Bld) [#/Vol] 10.5 10*3/uL Normal 3.5-11.3 [facility] Comment on above: Performed By: #### C DP #### [facility] [address] [place] [address] [employer]: Gerson Barton MD Hemoglobin A1Con Glucose [Mass/Vol] 126 mg/dL Normal [facility] Comment on above: Result Comment: The ADA and AACC recommend providing the estimated average glucose result to permit better patient understanding of their HBA1c result. Performed By: #### C P, CDP, TSHX #### [address] [place] [id number] [employer]: Gerson Barton MD #### URNMAB, FT4, GLYHGB, VD25, LIPR #### [address] [id number] [employer]: Asad Draper MD HbA1c (Bld) [Mass fraction] 6.0 % Normal 4.0-6.0 [facility] Comment on above: Performed By: #### C P, CDP, TSHX #### [address] [place] [id number] [employer]: Gerson Barton MD #### URNMAB, FT4, GLYHGB, VD25, LIPR #### [place] [address] [place], [place] [id number] [employer]: Asad Draper MD Lipid Profileon 9 Cholesterol [Mass/Vol] 115 mg/dL Normal <200 [facility] Comment on above: Result Comment: Cholesterol Guidelines: <200 Desirable 200-240 Borderline >240 Undesirable Performed By: #### C P, CDP, TSHX #### [address] [place], [place] [id number] [employer]: Gerson Barton MD #### URNMAB, FT4, GLYHGB, VD25, LIPR #### [place] [address] [place], [place] [id number] [employer]: Asad Draper MD Cholesterol in HDL [Mass/Vol] 49 mg/dL Normal >40 [facility] Comment on above: Result Comment: HDL Guidelines: <40 Undesirable 40-59 Borderline >59 Desirable Performed By: #### C P, CDP, TSHX #### [address] [place] [address] [employer]: Gerson Barton MD #### URNMAB, FT4, GLYHGB, VD25, LIPR #### [place] [address] [place], [place] [id number] [employer]: Asad Draper MD Cholesterol in LDL [Mass/Vol] 32 mg/dL Normal 0-130 [facility] Comment on above: Result Comment: LDL Guidelines: <100 Desirable 100-129 Near to/above Desirable 130-159 Borderline >159 Undesirable Direct (measured) LDL and calculated LDL are not interchangeable tests. Performed By: #### C P, CDP, TSHX #### [address] [place] [address] [employer]: Gerson Barton MD #### URNMAB, FT4, GLYHGB, VD25, LIPR #### [facility] [address] [place], [place] [id number] [employer]: Asad Draper MD Cholesterol.total/Ch olesterol in HDL [Mass ratio] 2.3 {ratio} Normal <5 [facility] Comment on above: Performed By: #### C P, CDP, TSHX #### [address] [place] [address] [employer]: Gerson Barton MD #### URNMAB, FT4, GLYHGB, VD25, LIPR #### [facility] [address] [place], [place] [id number] [employer]: Asad Draper MD Triglyceride [Mass/Vol] 171 mg/dL High <150 [facility] Comment on above: Result Comment: Triglyceride Guidelines: <150 Desirable 150-199 Borderline 200-499 High >499 Very high Based on AHA Guidelines for fasting triglyceride, March 2012. Performed By: #### C P, CDP, TSHX #### [facility] [address] [place], [place] [id number] [employer]: Gerson Barton MD #### URNMAB, FT4, GLYHGB, VD25, LIPR #### [address] [place], [place] 1003[address] [employer]: Asad Draper MD Microalb.,Random Uron 2022 Microalb/Creat Ratio 178 mcg/mg creat High <25 [facility] Comment on above: Performed By: #### C P, CDP, TSHX #### [facility] [address] [place] [address] [employer]: Gerson Barton MD #### URNMAB, FT4, GLYHGB, VD25, LIPR #### [address] [place], [place] 135[address] [employer]: Asad Draper MD Microalbumin conc. 764 mg/L High <21 [facility] Comment on above: Performed By: #### C P, CDP, TSHX #### [facility] [address] [place] [address] [employer]: Gerson Barton MD #### URNMAB, FT4, GLYHGB, VD25, LIPR #### [address] [place], [place] [phone] [employer]: Asad Draper MD Creatinine [Mass/Vol] 428.7 mg/dL High 28.0-217.0 [facility] Comment on above: Performed By: #### C P, CDP, TSHX #### [address] [place] [address] [employer]: Gerson Barton MD #### URNMAB, FT4, GLYHGB, VD25, LIPR #### [address] [address] [employer]: Asad Draper MD Thyroxine, Freeon 854 Thyroxine, Free 1.5 ng/dL Normal 0.9-1.7 [facility] Comment on above: Performed By: #### C P, CDP, TSHX #### [address] [place] [address] [employer]: Gerson Barton MD #### URNMAB, FT4, GLYHGB, VD25, LIPR #### [address] [phone] [employer]: Asad Draper MD Vitamin D 25 OHon 4 Vitamin D 25 OH 59.0 ng/mL Normal >29.9 [facility] Comment on above: Result Comment: Reference Range: Vitamin D status Range Deficiency <20 ng/mL Mild Deficiency 20-30 ng/mL Sufficiency 30-100 ng/mL Toxicity >100 ng/mL Performed By: #### C P, CDP, TSHX #### [address] [place] [address] [employer]: Gerson Barton MD #### URNMAB, FT4, GLYHGB, VD25, LIPR #### [address] [address] [employer]: Asad Draper MD CBC with Auto Differentialon 12-19-2022 Basophils (Bld) [#/Vol] 0.05 10*3/uL [facility] Basophils/100 WBC (Bld) 0 % 0 - 2 % [facility] Eosinophils (Bld) [#/Vol] 0.07 10*3/uL [facility] Eosinophils/100 WBC (Bld) 1 % 1 - 4 % [facility] Erythrocyte distribution width (RBC) [Ratio] 13.8 % 11.8 - 14.4 % [facility] Hematocrit (Bld) [Volume fraction] 47.2 % High 36.3 - 47.1 % [facility] Hemoglobin (Bld) [Mass/Vol] 15.9 g/dL High 11.9 - 15.1 g/dL [facility] Immature granulocytes (Bld) [#/Vol] 0.09 10*3/uL [facility] Immature granulocytes/100 WBC (Bld) 1 % High 0 [facility] Interpretation and review of laboratory results Abnormal [facility] Lymphocytes/100 WBC (Bld) 16 % Low 24 - 43 % [facility] Lymphocytes/100 WBC (Bld) 1.85 % [facility] MCH (RBC) [Entitic mass] 28.8 pg 25.2 - 33.5 pg [facility] MCHC (RBC) [Mass/Vol] 33.7 g/dL 28.4 - 34.8 g/dL [facility] MCV (RBC) [Entitic vol] 85.5 fL 82.6 - 102.9 fL [facility] Monocytes/100 WBC (Bld) 8 % 3 - 12 % [facility] Monocytes/100 WBC (Bld) 0.89 % [facility] Neutrophils/100 WBC (Bld) 74 % High 36 - 65 % [facility] Nucleated RBC/100 WBC (Bld) [Ratio] 0.0 % 0.0 per 100 WBC [facility] Platelet mean volume (Bld) [Entitic vol] 9.0 fL 8.1 - 13.5 fL [facility] Platelets (Bld) [#/Vol] 335 10*3/uL [facility] RBC (Bld) [#/Vol] 5.52 10*6/uL High 3.95 - 5.1 1 m/uL [facility] Segmented neutrophils/100 WBC (Bld) 8.61 % High [facility] WBC other (Bld) [#/Vol] 11.6 High [facility] CBC with Diffon 12-19-2022 Abs. Basophil 0.05 k/uL Normal 0.00-0.20 [facility] Comment on above: Performed By: #### C P, CDP, TSHX #### [address] [place] [phone] ( [employer]: Gerson Barton MD #### URNMAB, FT4, GLYHGB, VD25, LIPR #### [place] [phone] [employer]: Asad Draper MD Abs.Imm.Granulocyte 0.09 k/uL Normal 0.00-0.30 [facility] Comment on above: Performed By: #### C P, CDP, TSHX #### [address] [place] [phone] [employer]: Gerson Barton MD #### URNM, FT4, GLYHGB, VD25, LIPR #### [address] [phone] [employer]: Asad Draper MD Abs.Neutrophil (Seg) 8.61 k/uL High 1.50-8.10 [facility] Comment on above: Performed By: #### C P, CDP, TSHX #### [address] [place] 1228783 [employer]: Gerson Barton MD #### URNMAB, FT4, GLYHGB, VD25, LIPR #### [address] [phone] [employer]: Asad Draper MD Basophils/100 WBC (Bld) 0 % Normal 0-2 [facility] Comment on above: Performed By: #### C P, CDP, TSHX #### [address] [place] 1228783 [employer]: Gerson Barton MD #### URNMAB, FT4, GLYHGB, VD25, LIPR #### [address] [address] [employer]: Asad Draper MD Eosinophils (Bld) [#/Vol] 0.07 10*3/uL Normal 0.00-0.44 [facility] Comment on above: Performed By: #### C P, CDP, TSHX #### [address] [place] 1228783 [employer]: Gerson Barton MD #### URNMAB, FT4, GLYHGB, VD25, LIPR #### [address] [address] [employer]: Asad Draper MD Eosinophils/100 WBC (Bld) 1 % Normal 1-4 [facility] Comment on above: Performed By: #### C P, CDP, TSHX #### [address] [place] [phone] [employer]: Gerson Barton MD #### URNMAB, FT4, GLYHGB, VD25, LIPR #### [address] [address] [employer]: Asad Draper MD Erythrocyte distribution width (RBC) [Ratio] 13.8 % Normal 11.8-14.4 [facility] Comment on above: Performed By: #### C P, CDP, TSHX #### [address] [place] 1228783 [employer]: Gerson Barton MD #### URNMAB, FT4, GLYHGB, VD25, LIPR #### [address] [address] [employer]: Asad Draper MD Hematocrit (Bld) [Volume fraction] 47.2 % High 36.3-47.1 [facility] Comment on above: Performed By: #### C P, CDP, TSHX #### [address] [place] 1228783 [employer]: Gerson Barton MD #### URNMAB, FT4, GLYHGB, VD25, LIPR #### [address] [place] [address] [employer]: Asad Draper MD Hemoglobin (Bld) [Mass/Vol] 15.9 g/dL High 11.9-15.1 [facility] Comment on above: Performed By: #### C P, CDP, TSHX #### [address] [place] [address] [employer]: Gerson Barton MD #### URNMAB, FT4, GLYHGB, VD25, LIPR #### [place] [address] [employer]: Asad Draper MD Immature granulocytes/100 WBC (Bld) 1 % High 0 [facility] Comment on above: Performed By: #### C P, CDP, TSHX #### [address] [place] [address] [employer]: Gerson Barton MD #### URNMAB, FT4, GLYHGB, VD25, LIPR #### [address] [place] [address] [employer]: Asad Draper MD Lymphocytes (Bld) [#/Vol] 1.85 10*3/uL Normal 1.10-3.70 [facility] Comment on above: Performed By: #### C P, CDP, TSHX #### [address] [place] [phone] [employer]: Gerson Barton MD #### URNMAB, FT4, GLYHGB, VD25, LIPR #### [address] [phone] [employer]: Asad Draper MD Lymphocytes/100 WBC (Bld) 16 % Low 24-43 [facility] Comment on above: Performed By: #### C P, CDP, TSHX #### [address] [place] [address] [employer]: Gerson Barton MD #### URNMAB, FT4, GLYHGB, VD25, LIPR #### [address] [phone] [employer]: Asad Draper MD MCH (RBC) [Entitic mass] 28.8 pg Normal 25.2-33.5 [facility] Comment on above: Performed By: #### C P, CDP, TSHX #### [address] [place] [address] [employer]: Gerson Barton MD #### URNMAB, FT4, GLYHGB, VD25, LIPR #### [address] [id number] [employer]: Asad Draper MD MCHC (RBC) [Mass/Vol] 33.7 g/dL Normal 28.4-34.8 [facility] Comment on above: Performed By: #### C P, CDP, TSHX #### [address] [place] [address] [employer]: Gerson Barton MD #### URNMAB, FT4, GLYHGB, VD25, LIPR #### [address] [phone] [employer]: Asad Draper MD MCV (RBC) [Entitic vol] 85.5 fL Normal 82.6-102.9 [facility] Comment on above: Performed By: #### C P, CDP, TSHX #### [address] [place], [place] 6010983 [employer]: Gerson Barton MD #### URNMAB, FT4, GLYHGB, VD25, LIPR #### [address] [phone] [employer]: Asad Draper MD Monocytes (Bld) [#/Vol] 0.89 10*3/uL Normal 0.10-1.20 [facility] Comment on above: Performed By: #### C P, CDP, TSHX #### [address] [place], [place] 1771483 [employer]: Gerson Barton MD #### URNMAB, FT4, GLYHGB, VD25, LIPR #### [address] [address] [employer]: Asad Draper MD Monocytes/100 WBC (Bld) 8 % Normal 3-12 [facility] Comment on above: Performed By: #### C P, CDP, TSHX #### [address] [place], [place] [phone] [employer]: Gerson Barton MD #### URNMAB, FT4, GLYHGB, VD25, LIPR #### [address] [phone] [employer]: Asad Draper MD Neutrophil (Seg) 74 % High 36-65 [place] Comment on above: Performed By: #### C P, CDP, TSHX #### [address] [place], [place] [phone] [employer]: Gerson Barton MD #### URNMAB, FT4, GLYHGB, VD25, LIPR #### [address] [address] [employer]: Asad Draper MD NRBC Automated 0.0 per 100 WBC Normal 0.0 [facility] Comment on above: Performed By: #### C P, CDP, TSHX #### [address] [place] 1228783 [employer]: Gerson Barton MD #### URNMAB, FT4, GLYHGB, VD25, LIPR #### [address] [address] [employer]: Asad Draper MD Platelet mean volume (Bld) [Entitic vol] 9.0 fL Normal 8.1-13.5 [facility] Comment on above: Performed By: #### C P, CDP, TSHX #### [address] [place] 1228783 [employer]: Gerson Barton MD #### URNMAB, FT4, GLYHGB, VD25, LIPR #### [place] [address] [employer]: Asad Draper MD Platelets (Bld) [#/Vol] 335 10*3/uL Normal 138-453 [facility] Comment on above: Performed By: #### C P, CDP, TSHX #### [address] [place] 1228783 [employer]: Gerson Barton MD #### URNMAB, FT4, GLYHGB, VD25, LIPR #### [place] [address] [employer]: Asad Draper MD RBC (Bld) [#/Vol] 5.52 10*6/uL High 3.95-5.11 [facility] Comment on above: Performed By: #### C P, CDP, TSHX #### [address] [place] [address] [employer]: Gerson Barton MD #### URNMAB, FT4, GLYHGB, VD25, LIPR #### [address] [phone] [employer]: Asad Draper MD WBC (Bld) [#/Vol] 11.6 10*3/uL High 3.5-11.3 [facility] Comment on above: Performed By: #### C P, CDP, TSHX #### [address] [place] [address] [employer]: Gerson Barton MD #### URNMAB, FT4, GLYHGB, VD25, LIPR #### [address] [phone] [employer]: Asad Draper MD Comp Metabolic Profon 2022 Albumin [Mass/Vol] 5.1 g/dL Normal 3.5-5.2 [facility] Comment on above: Performed By: #### C P, CDP, TSHX #### [address] [place], [place] 7536083 [employer]: Gerson Barton MD #### URNMAB, FT4, GLYHGB, VD25, LIPR #### [address] [phone] [employer]: Asad Draper MD Albumin/Glob Ratio 1.6 Normal 1.0-2.5 [facility] Comment on above: Performed By: #### C P, CDP, TSHX #### [address] [place] [address] [employer]: Gerson Barton MD #### URNMAB, FT4, GLYHGB, VD25, LIPR #### [address] [phone] [employer]: Asad Draper MD Alkaline Phos 74 U/L Normal 35-104 [facility] Comment on above: Performed By: #### C P, CDP, TSHX #### [facility] [address] [place] [address] [place] [place], [place] [phone] [employer]: Gerson Barton MD #### URNMAB, FT4, GLYHGB, VD25, LIPR #### [address] 1948408 [employer]: Asad Draper MD ALT [Catalytic activity/Vol] 44 U/L High 5-33 [facility] Comment on above: Performed By: #### C P, CDP, TSHX #### [address] [place], [place] [phone] [employer]: Gerson Barton MD #### URNMAB, FT4, GLYHGB, VD25, LIPR #### [address] [phone] [employer]: Asad Draper MD Anion gap [Moles/Vol] 14 mmol/L Normal 9-17 [facility] Comment on above: Performed By: #### C P, CDP, TSHX #### [facility] [address] [place] [address] [place]. [place], [place] 7306183 [employer]: Gerson Barton MD #### URNMAB, FT4, GLYHGB, VD25, LIPR #### [address] [place], [place] 0022808 [employer]: Asad Draper MD AST [Catalytic activity/Vol] 27 U/L Normal <32 [facility] Comment on above: Performed By: #### C P, CDP, TSHX #### [facility] [address] [place], [place] 0309783 [employer]: Gerson Barton MD #### URNMAB, FT4, GLYHGB, VD25, LIPR #### [address] [place], [place] 7147108 [employer]: Asad Draper MD Bilirubin [Mass/Vol] 1.7 mg/dL High 0.3-1.2 [facility] Comment on above: Performed By: #### C P, CDP, TSHX #### [address] [place] [phone] [employer]: Gerson Barton MD #### URNMAB, FT4, GLYHGB, VD25, LIPR #### [address] [phone] [employer]: Asad Draper MD BUN/CRE Ratio 20 Normal 9-20 [facility] Comment on above: Performed By: #### C P, CDP, TSHX #### [address] [place] [phone] ( [employer]: Gerson Barton MD #### URNMAB, FT4, GLYHGB, VD25, LIPR #### [place] [address] [employer]: Asad Draper MD Calcium [Mass/Vol] 10.5 mg/dL High 8.6-10.4 [facility] Comment on above: Performed By: #### C P, CDP, TSHX #### [address] [place] [phone] [employer]: Gerson Barton MD #### URNMAB, FT4, GLYHGB, VD25, LIPR #### [place] [address] [employer]: Asad Draper MD Chloride [Moles/Vol] 94 mmol/L Low 98-107 [facility] Comment on above: Performed By: #### C P, CDP, TSHX #### [address] [place] [address] [employer]: Gerson Barton MD #### URNMAB, FT4, GLYHGB, VD25, LIPR #### [address] [phone] [employer]: Asad Draper MD CO2 [Moles/Vol] 30 mmol/L Normal 20-31 [facility] Comment on above: Performed By: #### C P, CDP, TSHX #### [address] [place] [address] [employer]: Gerson Barton MD #### URNMAB, FT4, GLYHGB, VD25, LIPR #### [address] [phone] [employer]: Asad Draper MD Creatinine [Mass/Vol] 0.8 mg/dL Normal 0.5-0.9 [facility] Comment on above: Performed By: #### C P, CDP, TSHX #### [address] [place] [address] [employer]: Gerson Barton MD #### URNMAB, FT4, GLYHGB, VD25, LIPR #### [address] [phone] [employer]: Asad Draper MD GFR/1.73 sq M.predicted among non-blacks MDRD (S/P/Bld) [Vol rate/Area] mL/min/{1.73_m2} Normal >60 [facility] Comment on above: Result Comment: These [...] By: #### C P, CDP, TSHX #### [address] [place], [place] [phone] [employer]: Gerson Barton MD #### URNMAB, FT4, GLYHGB, VD25, LIPR #### [address] [place], [place] 1468508 [employer]: Asad Draper MD Glucose [Mass/Vol] 137 mg/dL High 70-99 [facility] Comment on above: Performed By: #### C P, CDP, TSHX #### [address] [place] [address] [employer]: Gerson Barton MD #### URNMAB, FT4, GLYHGB, VD25, LIPR #### [address] [phone] [employer]: Asad Draper MD Potassium [Moles/Vol] 4.3 mmol/L Normal 3.7-5.3 [facility] Comment on above: Performed By: #### C P, CDP, TSHX #### [address] [place], [place] [phone] [employer]: Gerson Barton MD #### URNMAB, FT4, GLYHGB, VD25, LIPR #### [address] [place], [place] 6503208 [employer]: Asad Draper MD Protein [Mass/Vol] 8.2 g/dL Normal 6.4-8.3 [facility] Comment on above: Performed By: #### C P, CDP, TSHX #### [address] [place] [address] [employer]: Gerson Barton MD #### URNMAB, FT4, GLYHGB, VD25, LIPR #### [address] [place] [address] [employer]: Asad Draper MD Sodium [Moles/Vol] 138 mmol/L Normal 135-144 [facility] Comment on above: Performed By: #### C P, CDP, TSHX #### [facility] [address] [place] [address] [employer]: Gerson Barton MD #### URNMAB, FT4, GLYHGB, VD25, LIPR #### [facility] [address] [place], [place] [phone] [employer]: Asad Draper MD Urea nitrogen [Mass/Vol] 16 mg/dL Normal 6-20 [facility] Comment on above: Performed By: #### C P, CDP, TSHX #### [facility] [address] [place] [address] [employer]: Gerson Barton MD #### URNMAB, FT4, GLYHGB, VD25, LIPR #### [facility] [address] [place], [place] [phone] [employer]: Asad Draper MD Comprehensive Metabolic [facility] 12-19-2022 Albumin [Mass/Vol] 5.1 g/dL 3.5 - 5.2 g/dL [facility] Albumin/Globulin [Mass ratio] 1.6 {ratio} 1.0 - 2.5 [facility] ALP [Catalytic activity/Vol] 74 U/L 35 - 104 U/L [facility] ALT [Catalytic activity/Vol] 44 U/L High 5 - 33 U/L [facility] Anion gap [Moles/Vol] 14 mmol/L 9 - 17 mmol/L [facility] AST [Catalytic activity/Vol] 27 U/L NINF - 32 U/L [facility] Bilirubin [Mass/Vol] 1.7 mg/dL High 0.3 - 1 .2 mg/dL [facility] Calcium [Mass/Vol] 10.5 mg/dL High 8.6 - 10. 4 mg/dL [facility] Chloride [Moles/Vol] 94 mmol/L Low 98 - 10 7 mmol/L [facility] CO2 [Moles/Vol] 30 mmol/L 20 - 31 mmol/L [facility] Creatinine [Mass/Vol] 0.8 mg/dL 0.5 - 0.9 mg/dL [facility] GFR/1.73 sq M.predicted MDRD (S/P/Bld) [Vol rate/Area] - PINF [facility] Comment on above: These results are not [...] 137 mg/dL High 70 - 99 mg/dL [facility] Interpretation and review of laboratory results Abnormal [facility] Potassium [Moles/Vol] 4.3 mmol/L 3.7 - 5.3 mmol/L [facility] Protein [Mass/Vol] 8.2 g/dL 6.4 - 8.3 g/dL [facility] Sodium [Moles/Vol] 138 mmol/L 135 - 144 mmol/L [facility] Urea nitrogen [Mass/Vol] 16 mg/dL 6 - 20 mg/dL [facility] Urea nitrogen/Creatinine [Mass ratio] 20 mg/mg 9 - 20 [facility] Lipid Panelon 12-19-2022 Cholesterol [Mass/Vol] 115 mg/dL NINF - 200 mg/dL [facility] Comment on above: Cholesterol Guidelines: <200 Desirable 200-240 Borderline >240 Undesirable Cholesterol in HDL [Mass/Vol] 49 mg/dL 40 - PINF mg/dL [facility] Comment on above: HDL Guidelines: <40 Undesirable 40-59 Borderline >59 Desirable Cholesterol in LDL [Mass/Vol] 32 mg/dL 0 - 130 mg/dL [facility] Comment on above: LDL Guidelines: <100 Desirable 100-129 Near to/above Desirable 130-159 Borderline >159 Undesirable Direct (measured) LDL and calculated LDL are not interchangeable tests. Cholesterol.total/Ch olesterol in HDL [Mass ratio] 2.3 {ratio} NINF - 5 [facility] Interpretation and review of laboratory results Abnormal [facility] Triglyceride [Mass/Vol] 171 mg/dL High [facility] - 150 mg/dL [facility] Comment on above: Triglyceride Guidelines: <150 Desirable 150-199 Borderline 200-499 High >499 Very high Based on AHA Guidelines for fasting triglyceride, March 2012. [facility] Microalbumin, Uron 3 Albumin DL <= 20 mg/L (U) [Mass/Vol] 764 mg/L High NINF - 21 mg/L [facility] Albumin/Creatinine DL <= 20 mg/L (U) [Ratio] 178 [facility] Creatinine (U) [Mass/Vol] 428.7 mg/dL High 28.0 - 217.0 mg/dL [facility] Interpretation and review of laboratory results Abnormal [facility] T4, Freeon 12-19-2022 Free T4 [Mass/Vol] 1.5 ng/dL 0.9 - 1.7 ng/dL [facility] TSH w/reflex to FT4on 2022 Thyroid Stim. Horm. 6.76 uIU/mL High 0.30-5.00 [facility] Comment on above: Performed By: #### C P, CDP, TSHX #### [facility] [address] [place] [address] [employer]: Gerson Barton MD #### URNMAB, FT4, GLYHGB, VD25, LIPR #### [facility] [address] [place] [address] [employer]: Asad Draper MD TSH with Reflexon 12-19-2022 Interpretation and review of laboratory results Abnormal [facility] TSH Qn 6.76 m[IU]/L High [facility] Vitamin D 25 Hydroxyon 12-19 25-hydroxyvitamin D3 [Mass/Vol] 59.0 ng/mL 29.9 - PINF ng/mL [facility] Comment on above: Reference Range: Vitamin D status Range Deficiency <20 ng/mL Mild Deficiency 20-30 ng/mL Sufficiency 30-100 ng/mL Toxicity >100 ng/mL [facility] XR CHEST (2 VW)Ordered By: Ventura Whitlock on 12-08-2020 No acute cardiopulmonary disease. Infer Phone: EXAMINATION: TWO XRA Y VIEWS OF THE CHEST 12/06/2020 7:41 pm COMPARISON: July 19, 2017. HISTORY: ORDERING SYSTEM PROVIDED HISTORY: Mild intermittent asthma without complication TECHNOLOGIST PROVIDED HISTORY: ASTHMA FINDINGS: No lines or tubes. Normal cardiomediastinal silhouette. The lungs are clear without focal consolidation or pleural effusion. No suspicious pulmonary nodules. No pulmonary edema. No pneumothorax. No acute osseous abnormality. Infer Phone: Kalpesh, darron Incoming Radiant Results From [employer] - 12/08/2020 8:26 PM EDT EXAMINATION: TWO [...] osseous abnormality. IMPRESSION: No acute cardiopulmonary disease. Infer Phone: Infer Phone: Discharge Summaryon 07-22-19 18 HIM IP 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 [facility] CBCon 07-21-2017 Erythrocyte distribution width Auto Ratio (RBC) 12.9 % Normal 11.8-14.4 [facility] Comment on above: Performed By: #### T BECCA WOMACK ####[facility] [employer] [id number] [place] [address] Erythrocytes (RBC) 0.0 per 100 WBC Normal 0.0 M [facility] Comment on above: Result Comment: [place] [address] [place] [address] Performed By: #### David WOMACK LIPR ####[address] [address] Erythrocytes (RBC) 4.33 10*6/uL Normal 3.95-5.11 [facility] Comment on above: Performed By: #### T VU LIPR ####[address] [address] Hematocrit (HCT) 38.1 % Normal 36.3-47.1 [facility] Comment on above: Performed By: #### David OWMACK LIPR ####[address] [address] Hemoglobin mass conc (Bld) 12.4 g/dL Normal 11.9-15.1 [facility] Comment on above: Performed By: #### David WOMACK LIPR ####[address] [address] MCH 28.6 pg Normal 25.2-33.5 [facility] Comment on above: Performed By: #### David WOMACK LIPR ####[address] [address] MCHC mass conc (RBC) 32.5 g/dL Normal 28.4-34.8 [facility] Comment on above: Performed By: #### T VU LIPR ####[address] [address] MCV 88.0 fL Normal 82.6-102.9 [facility] Comment on above: Performed By: #### T VU LIPR ####[address] [address] Platelet mean volume (PMV) 9.7 fL Normal 8.1-13.5 [facility] Comment on above: Performed By: #### BECCA MYLES ####[address] [place] [address] Platelets 198 10*3/uL Normal 138-453 [facility] Comment on above: Performed By: #### BECCA MYLES ####[address] [place] [address] WBC (Leukocytes) 4.5 10*3/uL Normal 3.5-11.3 [facility] Comment on above: Performed By: #### BECCA MYLES ####[address] [place] [address] Comp Metabolic Pr/rfx MGon 0 - Potassium molar conc 3.5 mmol/L Low 3.7-5.3 [facility] Comment on above: Performed By: #### BECCA MYLES ####[address] [place] [address] (cont.) Normal [facility] Comment on above: Result Comment: Aver age GFR for 40-49 years old: 99 mL/min/1.73sq mChronic Kidney Disease: <60 mL/min/1.73sq mKidney failure: <15 mL/min/1.73sq meGFR calculated using average adult body mass. Additional eGFR calculator available at:[email or web address] [facility] [address] [place] [address] Performed By: ###BECCA DICKSON ####[address] [place] [address] Alanine aminotransferase (ALT) 15 U/L Normal 5-33 [facility] Comment on above: Performed By: #### BECCA MYLES ####[address] [place] [address] Albumin 3.9 g/dL Normal 3.5-5.2 [facility] Comment on above: Performed By: #### T VU LIPR ####[facility] [address] [place] [address] Albumin/Globulin Ratio 2.1 {ratio} Normal 1.0-2.5 [facility] Comment on above: Performed By: #### T VU LIPR ####[facility] [address] [place] [address] Alkaline Phos 34 U/L Low 35-104 [facility] Comment on above: Performed By: #### T VU LIPR ####[facility] [address] [place] [address] Anion gap 12 mmol/L Normal 9-17 [facility] Comment on above: Performed By: #### T VU LIPR ####[facility] [address] [place] [address] Aspartate aminotransferase (AST) 14 U/L Normal <32 [facility] Comment on above: Performed By: #### T VU, LIPR ####[facility] [address] [place] [address] Bilirubin Ql (U) 1.02 mg/dL Normal 0.3-1.2 [facility] Comment on above: Performed By: #### T VU LIPR ####[facility] [address] [place] [address] Calcium 9.0 mg/dL Normal 8.6-10.4 [facility] Comment on above: Performed By: #### T VU, LIPR ####[facility] [address] [place] [address] Chloride 99 mmol/L Normal 98-107 [facility] Comment on above: Performed By: #### T VU LIPR ####[facility] [address] [place] [address] CO2 24 mmol/L Normal 20-31 [facility] Comment on above: Performed By: #### T VU LIPR ####[facility] [address] [place] [address] Creatinine 0.60 mg/dL Normal 0.50-0.90 [facility] Comment on above: Performed By: #### T VU LIPR ####[facility] [address] [place] [address] eGFR (non-black) mL/min/{1.73_m2} Normal >60 [facility] Comment on above: Performed By: #### VIRGEN MYLESR ####[facility] [address] [place] [address] Glucose mass conc 99 mg/dL Normal 70-99 [facility] Comment on above: Performed By: #### VIRGEN MYLESR ####[facility] [address] [place] [address] Protein 5.8 g/dL Low 6.4-8.3 [facility] Comment on above: Performed By: #### David WOMACK LIPR ####[facility] [address] [place] [address] Sodium 135 mmol/L Normal 135-144 [facility] Comment on above: Performed By: #### T VIRGEN WOMACKR ####[facility] [address] [place] [address] Urea nitrogen 21 mg/dL High 6-20 [facility] Comment on above: Performed By: #### T VU LIPR ####[facility] [address] [place] [address] BUN/CRE Ratio NOT REPORTED Normal 9-20 [facility] Comment on above: Performed By: #### T BECCA WOMACK ####[facility] [address] [place] [address] Staging: NOT REPORTED Normal [facility] Comment on above: Performed By: #### T BECCA WOMACK ####[facility]ocelynRentelligenceF[address]wqsyp[address] [place] [address] Magnesiumon 07-21-2017 Magnesium 1.9 mg/dL Normal 1.6-2.6 [facility] Comment on above: Result Comment: [facility] [address] [place], [place] [id number] ([phone] Performed By: #### T BECCA WOMACK ####[facility]elligenceSlejzc[address]abug[address] [place] [address] [phone] Plan of Careon 07-21-2017 HIM IP 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 [facility] HIM IP 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 [facility] HIM IP 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 [facility] Progress Noteon 07-21-2017 HIM IP 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 [facility] HIM IP 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 [facility] CARDIAC STRESS TESTon 2017 CARDIAC STRESS TEST [address] [address] CARDIAC STRESS TESTPATIENT NAME: NADEEN AGUILA : 1965MED REC NO: [id number] ROOM: CCOUNT NO: [id number] ADMIT DATE: 07/20/2017PROVIDER: Ang CraigARDIYASSINE TREADMILL STRESS STUDYDATE OF STUDY: 07/20/2017ORDERING PROVIDER: Mari Varela CARE PROVIDER: Jori TrevizoeINDICATION: Chest discomfort.CONSENT: The test was explained and [...] issued from the department of Nuclear MedicineANG HASHMID: 07/20/2017 15:47:34 RH/PGAYTANJob#: [id number] Doc#: UnknownPositive result faxed to the Unit Normal [facility] Consulton 07-20-2017 HIM IP 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 [facility] History and Physicalon 07-20 HIM IP 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 [facility] K (Potassium)on 07-20-2017 Potassium molar conc 3.9 mmol/L Normal 3.7-5.3 [facility] Comment on above: Result Comment: [facility] [facility] [employer] [address] [place] [address] Performed By: #### BECCA MYLES ####[facility] [address] [place] [address] Lipid Profileon 07-20-2017 Cholesterol 162 mg/dL Normal <200 [facility] Comment on above: Result Comment: Chol esterol Guidelines: <200 Desirable 200-240 Borderline >240 Undesirable Performed By: #### BECCA MYLES ####[facility] Hospital[facility]entelligenceHizbmievjxbb[address] [place] [address] Cholesterol to HDL Ratio 3.4 {ratio} Normal <5 [facility] Comment on above: Performed By: #### BECCA MYLES ####[facility] Hospital[facility]entelligenceTgytzgmgvgfy[address] [place] [address] HDL Cholesterol 48 mg/dL Normal >40 [facility] Comment on above: Result Comment: HDL Guidelines: <40 Undesirable 40-59 Borderline >59 Desirable Performed By: #### BECCA MYLES ####[address] [place] [address] LDL Cholesterol 84 mg/dL Normal 0-130 [facility] Comment on above: Result Comment: LDL Guidelines: <100 Desirable 100-129 Near to/above Desirable 130-159 Borderline >159 UndesirableDirect (measured) LDL and calculated LDL are not interchangeable tests. Performed By: #### BECCA MYLES ####[facility] Hospital[facility]entelligenceIyfiakfwhypb[address] [place] [address] Triglyceride 151 mg/dL High <150 [facility] Comment on above: Result Comment: Trig lyceride Guidelines: <150 Desirable 150- 199 Borderline 200-499 High >499 Very high Based on AHA Guidelines for fasting triglyceride, March 2012.[employer] [address] [place] [address] Performed By: #### BECCA MYLES ####[facility] HospitalRentelligenceGxdfracxmzzc[address] [place] [address] Cholesterol in VLDL mass conc NOT REPORTED Normal 1-30 [facility] Comment on above: Performed By: #### BECCA MYLES ####[address] [place] [address] Magnesiumon 07-20-2017 Magnesium 1.8 mg/dL Normal 1.6-2.6 [facility] Comment on above: Result Comment: [facility] [address] [place] [address] Performed By: #### VIRGEN MYLESR ####[address] [place] [address] [place] MYOCARDIAL SPECT REST EXE RCISE OR [...] Revascularization in Patients With Stable Ischemic Heart DiseaseJACC Volume 69, Issue October 2016High risk (>3% [...] by:JENNI Montañoigned by:Giovanny Lan MD07/20/17inal result Normal [facility] Plan of Careon 07-20-2017 HIM IP 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 [facility] HIM IP 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 [facility] Procedureon 07-20-2017 HIM IP 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 [facility] Progress Noteon 07-20-2017 HIM IP 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 [facility] HIM IP 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 [facility] TSH w/reflex to FT4on 2017 Thyroid stimulating hormone (TSH) 0.22 m[IU]/L Low 0.30-5.00 [facility] Comment on above: Result Comment: [facility] [address] [place], [place] [id number] ([phone] Performed By: #### T SHX, FT4 ####[address] [place], [place] [id number] Thyroxine, Freeon 07-20-2017 Thyroxine, Free 1.52 ng/dL Normal 0.93-1.70 [facility] Comment on above: Result Comment: [facility] [address] [place] [address] Performed By: #### T SHX, FT4 ####[address] [address] Troponinon 07-20-2017 Troponin I.cardiac mass conc Normal [facility] Comment on above: Result Comment: Refe rence Range: <0.03 Within reference range. 0.03-0.09 Possible myocardial damage.Repeat at appropriate intervals to rule out chronic elevation. >= 0.10 Indicative of myocardial damage.Patients with high levels of Biotin oral intake (i.e >5mg/day) may have falsely decreased Troponin T levels. Samples collected within 8 hours of biotin intake may require additional information for diagnosis.[facility] [place] [address] Performed By: #### BECCA MYLES ####[facility] [address] [place] [address] Troponin T.cardiac mass conc ug/L Normal <0.03 [facility] Comment on above: Result Comment: Trop onin T results cannot be compared to Troponin-I results. Performed By: #### VIRGEN MYLESR ####[address] [address] Vital Signs Date Time Vital Sign Value Performing Clinician Manuel zepeda 03-06-2024 09:16040 Body height 160 cm Jeanine Whitlock HEARING AID DISPENSER Work Phone: [facility] 03-06-2024 09:16040 Body mass index (BMI) [Ratio] 38.9 kg/m2 Jeanine Whitlock HEARING AID DISPENSER Work Phone: [facility] 03-06-2024 09:16040 Body temperature 98.01 [degF] Jeanine Whitlock HEARING AID DISPENSER Work Phone: [facility] 03-06-2024 09:16-0400 Body weight 99.61 kg Jeanine Joselinee HEARING AID DISPENSER Work Phone: [facility] 03-06-2024 09:16-0400 Diastolic blood pressure 60 mm[Hg] Jeanine Rine HEARING AID DISPENSER Work Phone: [facility] 03-06-2024 09:16-0400 Heart rate 71 /min Jeanine Rine HEARING AID DISPENSER Work Phone: [facility] 03-06-2024 09:16-0400 Respiratory rate 18 /min Jeanine Rine HEARING AID DISPENSER Work Phone: [facility] 03-06-2024 09:16-0400 SaO2% (BldA) [Mass fraction] 95 % Jeanine Rine HEARING AID DISPENSER Work Phone: [facility] 03-06-2024 09:16-0400 Systolic blood pressure 120 mm[Hg] Jeanine Rine HEARING AID DISPENSER Work Phone: [facility] Encounters Encounter Date Encounter Type Care Provider Facility Start: 03-27-2024 End: 03-27-2024 Refill Elizabeth Feucht SH[facility]IR [facility] Comment on above: Type 2 diabetes rochelle itus without complication, without long- term current use of insulin ([facility]) Start: 03-25-2024 End: 03-25-2024 Refill Jeanine Trevizoe HEARING AID DISPENSER Work Phone: [facility] Comment on above: Environmental and se asonal allergies; Pure hypercholesterolemia ([facility]) Start: 03-10-2024 End: 03-10-2024 Telephone encounter Jeanine Whitlock HEARING AID DISPENSER Work Phone: [facility] Comment on above: update on dexcom and blood sugars; New Medication ordered Start: 03-06-2024 End: 03-06-2024 Bamboo flowsheet Jeanine L Joselinee HEARING AID DISPENSER Work Phone: [facility] Start: 03-06-2024 End: 03-06-2024 Bamboo flowsheet Jeanine L Rine HEARING AID DISPENSER Work Phone: [facility] Start: 03-06-2024 End: 03-06-2024 ambulatory JEANINE L RINE Not Available Start: 03-06-2024 End: 03-06-2024 Patient encounter status Jeanine Whitlock HEARING AID DISPENSER Work Phone: [facility] Work Phone: Start: 03-06-2024 End: 03-06-2024 Periodic preventive med est patient 40-64yrs Jeanine Whitlock HEARING AID DISPENSER Work Phone: [facility] Comment on above: Type 2 diabetes rochelle itus without complication, without long- term current use of insulin (CMS/HCC) (Primary Dx); Wellness examination; Type 2 diabetes mellitus with hyperglycemia, with long-term current use of insulin (CMS/HCC); Acute post-traumatic stress disorder (CMS/HCC); ENRIQUE (generalized anxiety disorder) (CMS/HCC); Severe single current episode of major depressive disorder, without psychotic features (CMS/HCC); Acquired hypothyroidism (CMS/HCC); Panic disorder with agoraphobia (CMS/HCC); Pure hypercholesterolemia (CMS/HCC); Primary hypertension (CMS/HCC); Mild intermittent asthma without complication (CMS/HCC); Immunization due; Hallux valgus (acquired), left foot; Degenerative cervical disc; Primary insomnia; Vitamin D deficiency; Hallux rigidus, left foot; Environmental and seasonal allergies; BMI 38.0-38.9,adult Start: 01-22-2024 End: 01-22-2024 ambulatory JEANINE L RINE Not Available Start: 12-18-2023 End: 12-18-2023 ambulatory POLO DIAZ Not Available Start: 11-19-2023 End: 11-19-2023 ambulatory JEANINE L RINE Not Available Start: 10-11-2023 End: 10-11-2023 ambulatory POLO DIAZ Not Available Start: 07-15-2023 End: 07-18-2023 ambulatory JEANINE L RINE [facility] Start: 07-15-2023 End: 07-17-2023 Subsequent hospital visit by physician [facility] Dexa Scan Comment on above: Age-related osteopor osis without current pathological fracture Start: 05-24-2023 End: 05-24-2023 ambulatory JEANINE L RINE Not Available Start: 05-10-2023 End: 05-11-2023 ambulatory TYLER RAMEY [facility] Start: 12-27-2022 End: 12-28-2022 ambulatory JEANINE WHITLOCK [facility] Start: 12-19-2022 End: 12-20-2022 ambulatory POLO Lauren DIAZ [facility] Start: 12-19-2022 End: 12-19-2022 Subsequent hospital visit by physician Jeanine Whitlock Work Phone: [facility] Start: 12-06-2020 End: 12-08-2020 Subsequent hospital visit by physician Maddie Sewell Dr Room 2 [facility] Comment on above: Mild intermittent as thma without complication Start: 07-20-2017 End: 07-22-2017 Evaluation and management of inpatient JEANINE WHITLOCK [facility] Procedures Date Procedure Procedure Detail Performing Clinician Start: 07-15-2023 Dxa bone density thomas dy 1/> sites axial skel Tyler Ramey MD Work Phone: Start: 05-24-2023 Mammography Jeanine Whitlock HEARING AID DISPENSER Work Phone: Start: 12-19-2022 Comprehensive metabo lic panel Polo Escobedo OIL DERRICK OPERATOR - HEARING AID DISPENSER Work Phone: Start: 12-19-2022 Lipid panel Polo ocampo OIL DERRICK OPERATOR - HEARING AID DISPENSER Work Phone: Start: 12-19-2022 Urine albumin quantitative Polo Escobedo OIL DERRICK OPERATOR - HEARING AID DISPENSER Work Phone: Start: 12-06-2020 Radiologic exam ches t 2 views Jeanine Whitlock Work Phone: Start: 02-07-2018 Colonoscopy Jeanine Joselinee HEARING AID DISPENSER Work Phone: Start: 01-23-2018 Colonoscopy Jeanine Rine Work Phone: Start: 07-22-2017 TECHNICAL STAFF ASSISTANT REPORT JEANINE R FELIPA Start: 07-22-2017 DISCHARGE PATIENT JEANINE JOSELINEE Start: 07-22-2017 INITIATE OXYGEN THER APY PROTOCOL [...] RINE Start: 07-20-2017 NOTIFY PHYSICIAN (SPECIFY) JEANINE RINE Start: 07-20-2017 PULSE OXIMETRY SPOT CHECK JEANINE RINE Start: 07-20-2017 TELEMETRY MONITORING GE RRI CHINYERE Start: 07-20-2017 IP CONSULT TO CARDIOLOGY JEANINE WHITLOCK Start: 07-20-2017 PLACE INTERMITTENT PNEUMATIC COMPRESSION DEVICE JEANINE WHITLOCK Start: 07-20-2017 PATIENT STATUS (DIRECT) JEANINE WHITLOCK Plan of Treatment Date Care Activity Detail Author Start: 02-08-2028 Screening for malignant neoplasm of colon [facility] Start: 01-24-2028 Screening for malignant neoplasm of colon [facility] Start: 02-13-2027 DTaP/Tdap/Td vaccine (3 - Td or Tdap) DTaP/Tdap/Td vaccine (3 - Td or Tdap) [facility] Start: 06-21-2025 Glaucoma screening Diabetes: Retinopathy Screening [facility] Start: 05-24-2025 Screening for malignant neoplasm of breast Breast cancer screen [facility] Start: 11-05-2024 Urine screening for protein Diabetes: Urine Protein Screening [facility] Start: 06-05-2024 Hemoglobin A1c measurement Diabetes: Hemoglobin A1C [facility] Start: 05-24-2024 Screening for malignant neoplasm of breast Mammogram [facility] Start: 05-11-2024 End: 05-11-2024 Patient encounter procedure 05/11/2024 10:55 AM EST Office Visit [facility] [address] [place] [phone] Kera Mac, OIL DERRICK OPERATOR-TRANS ROUTER [address] [place], [place] [id number] [facility] Start: 04-06-2024 End: 03-06-2025 Hemoglobin A1c/Hemoglobin.total in Blood Hemoglobin A1c Lab Today Type 2 diabetes mellitus without complication, without long-term current use of insulin ([facility]) Expected: 04/06/2024 (Approximate), Expires: 03/06/2025 [facility] Work Phone: Comment on above: Expected: 04/06/2024 (Approximate), Expi res: 03/06/2025 Start: 04-03-2024 End: 04-03-2024 Patient encounter procedure 04/03/2024 11:30 AM EDT Office Visit [facility] [address] [place] [address] Amalia Cheng, PA [address] [place] [address] [facility] Start: 02-02-2024 Influenza vaccination Influenza Vaccine (#1) [facility] Start: 12-20-2023 GFR test (Diabetes, CKD 3-4, OR last GFR 15-59) GFR test (Diabetes, CKD 3-4, OR last GFR 15-59) [facility] Start: 12-20-2023 Hemoglobin A1c measurement A1C test (Diabetic or Prediabetic) [facility] Start: 12-20-2023 Lipid panel Lipids [facility] Start: 12-20-2023 Urine screening for protein Diabetic Alb to Cr ratio (uACR) test [facility] Start: 01-01-2023 Influenza vaccination Flu vaccine (#1) [facility] Start: 02-01-2021 Influenza vaccination Flu vaccine (#1) Infer Phone: Start: 12-02-2020 COVID-19 Vaccine (3 - Booster for Moderna series) COVID-19 Vaccine (3 - Booster for Moderna series) [facility] Start: 01-18-2020 Screening for malignant neoplasm of breast Breast cancer screen [facility] Start: 07-23-2018 Creatinine measurement Creatinine monitoring [facility] Phone: Start: 07-23-2018 GFR test (Diabetes, CKD 3-4, OR last GFR 15-59) GFR test (Diabetes, CKD 3-4, OR last GFR 15-59) [facility] Start: 07-23-2018 Potassium monitoring Potassium monitoring Infer Phone: Start: 07-20-2018 Lipid panel [facility] Start: 07-01-2018 Pneumococcal 0-64 years Vaccine (2 - PPSV23 if available, else PCV20) Pneumococcal 0-64 years Vaccine (2 - PPSV23 if available, else PCV20) [facility] Start: 07-01-2018 Pneumococcal 0-64 years Vaccine (2 - PPSV23 or PCV20) Pneumococcal 0-64 years Vaccine (2 - PPSV23 or PCV20) [facility] [email or web address] Start: 2017 Shingles Vaccine (1 of 2) Shingles Vaccine (1 of 2) [facility] [email or web address] Start: 2012 Screening for malignant neoplasm of colon [facility] [email or web address] Start: 06-15-2012 Hemoglobin A1c measurement A1C test (Diabetic or Prediabetic) [facility] [email or web address] Start: 1997 Screening for malignant neoplasm of cervix [facility] [email or web address] Start: 1988 Screening for malignant neoplasm of cervix [facility] [email or web address] Start: 1986 Hepatitis B vaccine (1 of 3 - Risk 3-dose series) Hepatitis B vaccine (1 of 3 - Risk 3-dose series) [facility] [email or web address] Start: 1985 Diabetic microalbuminuria test [facility] test [facility] Start: 1985 Glaucoma screening Diabetic retinal exam [facility] [email or web address] Start: 1985 Hepatitis C screening Hepatitis C screen [facility] [email or web address] Start: 1985 Urine screening for protein Diabetic Alb to Cr ratio (uACR) test [facility] [email or web address] Start: 1982 HIV screening HIV screen [facility] [email or web address] Start: 1979 Depression Monitoring Depression Monitoring [facility] [email or web address] Start: 1977 Diabetic foot examination Diabetic foot exam [facility] [email or web address] Start: 1977 Diabetic retinal exam Diabetic retinal exam [facility] [employer] Phone: Start: 1973 Pneumococcal 0-64 years Vaccine (1 of 2 - PPSV23) Pneumococcal 0-64 years Vaccine (1 of 2 - PPSV23) [facility] [employer] Phone: Start: 01-23-1968 COVID-19 Vaccine (#1) COVID-19 Vaccine (#1) [facility] [email or web address] Start: 1967 Hepatitis B vaccine (1 of 3 - 3-dose series) Hepatitis B vaccine (1 of 3 - 3-dose series) [facility] Start: 1967 Hepatitis C screening Hepatitis C screen [facility] Work Phone: Start: 1967 Screening for malignant neoplasm of colon [facility] End: 12-19-2022 Hemoglobin A1c/Hemoglobin.total in Blood [facility] Work Phone: Comment on above: Once for 1 Occurrences starting 12/20/19 until 12/19/2022 Immunizations Immunization Date Immunization Notes Care Provider Fa rey 03-06-2024 influenza, injectabl e, quadrivalent, preservative free Jeanine Rine HEARING AID DISPENSER Work Phone: [facility] 05-10-2023 influenza, injectabl e, quadrivalent, preservative free Jeanine Rine HEARING AID DISPENSER Work Phone: [facility] 05-10-2023 influenza virus vacc ine, unspecified formulation Jeanine Rine HEARING AID DISPENSER Work Phone: [facility] 04-13-2022 influenza, injectabl e, quadrivalent, preservative free Jeanine Rine HEARING AID DISPENSER Work Phone: [facility] 06-09-2021 zoster vaccine recombinant Jeanine Rine HEARING AID DISPENSER Work Phone: [facility] 03-10-2021 influenza, injectabl e, quadrivalent, preservative free Jeanine Rine HEARING AID DISPENSER Work Phone: [facility] 03-10-2021 zoster vaccine recombinant Jeanine Rine HEARING AID DISPENSER Work Phone: [facility] 03-04-2020 influenza, injectabl e, quadrivalent, preservative free Jeanine Rine HEARING AID DISPENSER Work Phone: [facility] 05-06-2018 pneumococcal conjuga te vaccine, 13 valent Jeanine Rine HEARING AID DISPENSER Work Phone: [facility] 04-03-2017 influenza, injectabl e, quadrivalent, preservative free Jeanine Rine HEARING AID DISPENSER Work Phone: [facility] 02-13-2017 tetanus toxoid, redu shelby diphtheria toxoid, and acellular pertussis vaccine, adsorbed Jeanine Rine HEARING AID DISPENSER Work Phone: [facility] 05-16-2006 hepatitis B vaccine, adult dosage Jeanine Rine HEARING AID DISPENSER Work Phone: [facility] 07-10-2003 hepatitis B vaccine, adult dosage Jeanine Rine HEARING AID DISPENSER Work Phone: [facility] 12-12-1995 hepatitis B vaccine, adult dosage Jeanine Rine HEARING AID DISPENSER Work Phone: [facility] 09-19-1995 hepatitis B vaccine, adult dosage Jeanine Rine HEARING AID DISPENSER Work Phone: [facility] Payers Date Payer Category Payer Managed Care HMO (unspecified) [id number] 2023 Private Health Insurance [id number] 2019 Unknown [id number] 2014 Unknown [id number] 1967 Unknown [id number] 1967 Unknown [id number] [id number] 1967 Unknown [id number] 1967 Unknown [id number] [id number] 1967 Unknown [id number] [id number] 1967 Unknown [id number] [id number] 1967 Unknown [id number] [id number] 1967 Unknown [id number] 1967 Unknown [id number] [id number] 1967 Unknown [id number] 2.16.840 .[id number] 1967 Unknown [id number] Social History Date Type Detail Facility Start: 01-23-2018 End: 12-19-2022 Tobacco smoking status TNIS Never smoker [facility] Start: 01-23-2018 End: 12-19-2022 Tobacco use and exposure Never used [facility] Start: 01-23-2018 Alcohol intake Current non-drinker of alcohol (finding) Infer Phone: Start: 1965 Sex Assigned At Not on file Infer Phone: Start: 01-25-2019 End: 01-22-2024 History of Social function [facility] Start: 01-25-2019 End: 01-22-2024 Tobacco use panel [facility] Start: 01-22-2024 End: 03-06-2024 Alcoholic beverage intake Current drinker of alcohol (finding) [facility] How often do you nee d to have someone help you when you read instructions, pamphlets, or other written material from your doctor or pharmacy [SILS] Never [facility] Do you belong to any clubs or organizations such as buddhism groups, unions, fraternal or athletic groups, or school groups? Yes [facility] Are you now , , , , never or living with a partner? [facility] How often to you hav e a drink containing alcohol? Monthly or less [facility] How many standard dr inks containing alcohol do you have on a typical day? 1 or 2 [facility] How often do you hav e 6 or more drinks on 1 occasion? Never [facility] How hard is it for y ou to pay for the very basics like food, housing, medical care, and heating Somewhat hard [facility] Do you feel stress - tense, restless, nervous, or anxious, or unable to sleep at night because your mind is troubled all the time - these days [OSQ] Very much [facility] (I/We) worried [facility] (my/our) food would run out before (I/we) got money to buy more. Never true [facility] In the past 12 month s, was there a time when you were not able to pay the mortgage or rent on time? No [facility] Start: 1965 Sex assigned at Female [facility] Start: 08-15-2022 Gender identity Identifies as female gender (finding) [facility] Medical Equipment Procedure Code Equipment Code Equipment Origin al Text Equipment Identifier Dates [id number], [id number] Start: 11-19-2023 Clinical Notes 03-06-2024 to 03-27-2024 Telephone Encounter - Elizabeth Richey MA - 03/27/2024 12:23 PM EDTTelephone Encounter - Elizabeth Richey MA - 03/27/2024 12:23 PM EDTTelephone Encounter - Jeanine Whitlock NP - 03/10/2024 12:19 PM EDT Note Date & Type Note Facility 03-27-2024 Telephone encount er Note Pharmacy requesting new RX for losartan for pt. [facility] 03-27-2024 Miscellaneous Notes Formattin g of this note might be different from the original. Pharmacy requesting new RX for losartan for pt. documented in this encounter [facility] 03-10-2024 Telephone encount er Note noted [facility] 03-10-2024 Miscellaneous Notes Formattin g of this note might be different from the original. noted Spoke with Mariella and notified her and she reports she has taken the Ozempic previously however after her sugars got better her insurance stopped paying for it. Answered the PA questions online and attached progress notes and A1C. Please let mariella know that jeanine sent ozempic once weekly to the local pharmacy for her. This triggered a PA so we will need to see what that looks like. Call if any issues swallowing or abd pain. Beware of constipation. Call if questions. Continue jardiance and metformin. She has been wearing the dexcom and her average sugars are running 196. Patient states that she has been eating better, but the alarm that her sugar is high will still go off. She is not sure what more she should do about this. documented in this encounter [facility] 03-10-2024 Telephone encount er Note Spoke with Mariella and notified her and she reports she has taken the Ozempic previously however after her sugars got better her insurance stopped paying for it. Answered the PA questions online and attached progress notes and A1C. [facility] 03-10-2024 Telephone encount er Note Please let mariella know that jeanine sent ozempic once weekly to the local pharmacy for her. This triggered a PA so we will need to see what that looks like. Call if any issues swallowing or abd pain. Beware of constipation. Call if questions. Continue jardiance and metformin. [facility] 03-10-2024 Telephone encount er Note She has been wearing the dexcom and her average sugars are running 196. Patient states that she has been eating better, but the alarm that her sugar is high will still go off. She is not sure what more she should do about this. T [facility] 03-06-2024 History of Presen t illness Narrative Nadeen Aguila is a 58 y.o. female presents with chief complaint of Annual Exam HPI: Here for well exam New grandson one week old in the NICU Overall she has been feeling well Unhappy that her aic was elevated as she intends to have surgery on rt foot in mid April She had surgery per dr piper on te left foot, bunion repair jan 15, she has done well has a small area not feeing as well as possible Utd with eye and dental exams No dizzy spells or syncope No cp or sob Is somewhat fatigued , wonders if it is related to bs No GI/ issues Good water , rare soda, rare etoh, nonsmoker SUBJECTIVE: MEDICATIONS: Current Outpatient Medications Medication Instructions ALPRAZolam (XANAX) 0.25 mg, Oral, Nightly PRN amLODIPine (NORVASC) 5 mg, Oral, Daily ARIPiprazole (ABILIFY) 5 mg, Oral, Daily Ascorbic Acid (Vitamin C) 500 MG capsule Every 24 hours aspirin 81 mg, Oral, Daily atorvastatin (LIPITOR) 5 mg, Oral, Daily B Complex Vitamins (B COMPLEX 1 PO) as directed Orally bisoprolol (ZEBETA) 10 mg, Oral, Daily Blood Glucose Monitoring Suppl (FreeStyle Lite) w/Device kit USE DIRECTED calcium carbonate (Os-Wilfredo) 1250 (500 Ca) MG tablet 1 capsule, Oral, Daily chlorthalidone (Hygroton) 50 MG tablet TAKE 1 TABLET EVERY MORNING WITH FOOD Continuous Glucose Sensor (Dexcom G7 Sensor) misc 1 Units, Does not apply, Every 14 days DULoxetine (CYMBALTA) 60 mg, Oral, Daily empagliflozin (JARDIANCE) 25 mg, Oral, Daily fluconazole (DIFLUCAN) 100 mg, Oral, Daily FreeStyle lancets USE DIRECTED EVERY DAY glucose blood test strip Daily testing Lancet Devices (Autolet) lancing device Daily testing losartan (COZAAR) 25 mg, Oral, Daily meloxicam (MOBIC) 15 mg, Oral, Daily metFORMIN XR (GLUCOPHAGE-XR) 1,000 mg, Oral, 2 times daily montelukast (SINGULAIR) 10 mg, Oral, Daily Synthroid 100 MCG tablet TAKE 1 TABLET IN THE MORNING BEFORE A MEAL therapeutic multivitamin-minerals (Theragran-M) tablet 1 tablet, Oral, Daily traZODone (DESYREL) 75 mg, Oral, Nightly PRN zinc gluconate 50 mg, Oral, Daily ALLERGIES: Allergies Allergen Reactions Iodides Heart Cath dye Iodinated Contrast Media Hives Lisinopril Cough Shellfish-Derived Products SURGICAL HISTORY: Past Surgical History: Procedure Laterality Date CERVICAL DISC ARTHROPLASTY 12/2017 C 6-7 SECTION, CLASSIC HEART CATH 2008 and 07/2017 OTHER SURGICAL HISTORY 01/2018 Artifical disc- Dr. Lynn TONSILLECTOMY 1974 FAMILY HISTORY: Family History Problem Relation Name Age of Onset Diabetes Mother Hypertension Mother Heart disease Mother Stroke Mother Mental illness Mother depression Esophageal cancer Father Heart disease Father Mental illness Father Other (severe depression) Father Bipolar disorder Brother Mental illness Brother Other (Suicide) Son Alzheimer's disease Maternal Grandmother Lung cancer Paternal Grandfather SOCIAL HISTORY: Social History Tobacco Use Smoking status: Never Smokeless tobacco: Never Vaping Use Vaping status: Never Used Substance Use Topics Alcohol use: Yes Drug use: Never Depression: Not at risk (03/06/2024) PHQ-2 PHQ-2 Score: 0 REVIEW OF SYMPTOMS: Review of Systems Constitutional: Negative for activity change, appetite change and fever. HENT: Negative for hearing loss, rhinorrhea and sore throat. Eyes: Negative for visual disturbance. Respiratory: Negative for cough and wheezing. Cardiovascular: Negative for chest pain, palpitations and leg swelling. Gastrointestinal: Negative for abdominal pain and blood in stool. Genitourinary: Negative for dysuria and flank pain. Musculoskeletal: Negative for arthralgias. S/p left bunion repair Skin: Negative. Neurological: Negative for dizziness, syncope and light-headedness. Psychiatric/Behavioral: Negative. Hematological: Negative for adenopathy. Does not bruise/bleed easily. Endocrine: Negative for polydipsia. Allergic/Immunologic: Positive for environmental allergies. Negative for food allergies. OBJECTIVE: Visit Vitals BP 120/60 (BP Location: Left arm, Patient Position: Sitting, BP Cuff Size: Adult) Pulse 71 Temp 98 F (Tympanic) Resp 18 Ht 5' 3 Wt 219 lb 9.6 oz SpO2 95% BMI 38.90 kg/m OB Status Hysterectomy Smoking Status Never BSA 2.1 m Physical Exam HENT: Head: Normocephalic. Right Ear: Tympanic membrane normal. Left Ear: Tympanic membrane normal. Nose: Nose normal. Mouth/Throat: Mouth: Mucous membranes are moist. Pharynx: No posterior oropharyngeal erythema. Eyes: Pupils: Pupils are equal, round, and reactive to light. Neck: Vascular: No carotid bruit. Cardiovascular: Rate and Rhythm: Normal rate and regular rhythm. Pulses: Normal pulses. Heart sounds: Normal heart sounds. No murmur heard. Pulmonary: Effort: Pulmonary effort is normal. No respiratory distress. Abdominal: General: Bowel sounds are normal. Palpations: Abdomen is soft. There is no mass. Hernia: No hernia is present. Musculoskeletal: Cervical back: Normal range of motion. Comments: Moves about well, wearing shoes, has scar over the 1st mtp joint of the left foot, well approx , no redness edema or drng Lymphadenopathy: Cervical: No cervical adenopathy. Skin: General: Skin is warm and dry. Capillary Refill: Capillary refill takes less than 2 seconds. Neurological: General: No focal deficit present. Mental Status: She is alert. Psychiatric: Mood and Affect: Mood normal. Comments: Alert and animated Wt up 4 pounds Rev the lab from ASSESSMENT AND PLAN: Assessment/Plan Diagnoses and all orders for this visit: Type 2 diabetes mellitus without complication, without long-term current use of insulin (CMS/[facility]) Comments: trial cgm, dexcom 7 sample placed with her permission and rx sent, call prn Orders: - Continuous Glucose Sensor (Dexcom G7 Sensor) misc; 1 Units every 14 (fourteen) days - Hemoglobin A1c; Future - empagliflozin (Jardiance) 25 MG; Take 1 tablet (25 mg) by mouth Daily Wellness examination Comments: advised to exercise as able, whole foods diet, update vaccines Type 2 diabetes mellitus with hyperglycemia, with long-term current use of insulin (CMS/HCC) Acute post-traumatic stress disorder (CMS/HCC) ENRIQUE (generalized anxiety disorder) (CMS/HCC) Comments: states doing well from psych standpoint at this time Severe single current episode of major depressive disorder, without psychotic features (CMS/HCC) Comments: states doing well from psych standpoint at this time Acquired hypothyroidism (CMS/HCC) Comments: good control Panic disorder with agoraphobia (CMS/HCC) Comments: states doing well from psych standpoint at this time Pure hypercholesterolemia (CMS/HCC) Comments: same meds moving forward , hi plant fiber , plant based diet Primary hypertension (CMS/HCC) Comments: good control , walk as able Mild intermittent asthma without complication (CMS/HCC) Comments: good control with rare need for breakthrough albut Immunization due Comments: flu vaccine given Orders: - influenza, injectable, quadrivalent, PF free Hallux valgus (acquired), left foot Comments: s/p surgical resection per dr piper Degenerative cervical disc Primary insomnia Comments: good control at this time, has been less physical related to foot surgery however Vitamin D deficiency Comments: continue supplement Hallux rigidus, left foot Comments: upcoming surgery in mid apr IF aic is down, order created, goal is certainly less than 8 Environmental and seasonal allergies Comments: fair control at this time BMI 38.0-38.9,adult Comments: encouraged more fiber in diet Follow up for 3.5 mo aic prior. documented in this encounter [facility] 03-06-2024 Instructions Jeanine Whitlock NP - 03/06/2024 9:00 AM EDT Covid vaccine week or two at the pharmacy Surgery is planned for apr 16 Try to get a cgm, sample of dexcom provided Plan to recheck aic in early apr Increase the jardiance to 25 mg Elevate the left foot above level of heart More water and activity after meals, more fiber and protein before carbs documented in this encounter [facility] Evaluation note Diagnosis Mild intermittent asthma without complication Unspecified asthma documented in this encounter [facility] Work Phone: evaluation note* Diagnosis Age-related osteoporosis without current pathological fracture Senile osteoporosis [facility] Diagnosis Type 2 diabetes mellitus without complication, without long-term current use of insulin ([facility])- Primary Wellness examination Type 2 diabetes mellitus with hyperglycemia, with long-term current use of insulin (CMS/HCC) Acute post-traumatic stress disorder ([facility]/HCC) ENRIQUE (generalized anxiety disorder) ([facility]) Generalized anxiety disorder Severe single current episode of major depressive disorder, without psychotic features ([facility]) Acquired hypothyroidism ([facility]/HCC) Unspecified hypothyroidism Panic disorder with agoraphobia ([facility]/HCC) Agoraphobia with panic disorder Pure hypercholesterolemia ([facility]/HCC) Pure hypercholesterolemia Primary hypertension ([facility]) Unspecified essential hypertension Mild intermittent asthma without complication ([facility]) Immunization due Hallux valgus (acquired), left foot Degenerative cervical disc Primary insomnia Persistent disorder of initiating or maintaining sleep Vitamin D deficiency Hallux rigidus, left foot Environmental and seasonal allergies BMI 38.0-38.9,adult [facility] Diagnosis Type 2 diabetes mellitus with hyperglycemia, with long-term current use of insulin (CMS/HCC)- Primary [facility] Diagnosis Environmental and seasonal allergies Pure hypercholesterolemia ([facility]) Pure hypercholesterolemia [facility] Diagnosis Type 2 diabetes mellitus without complication, without long-term current use of insulin ([facility]) documented in this encounter [facility] Summary Purpose Family History No Family History Records FoundNo Family History Records FoundNo Family History Records FoundNo Family History Records Found Advance Directives Documents on File Type Date Recorded Patient Cinema Or Theatre Manager Expl anation ACP-Advance Directive ACP-Power of Crate Maker Latest Code Status on File Code Status [...] AXIAL SKELETON Tyler Ramey MD [address] [place] [address] Referral ID Status Reason Start Date Expiration Date V isits Requested Visits Authorized [id number] Pending Review 05/24/2023 05/23/2024 1 1 Specialty Diagnoses / Procedures Referred By Contac t Referred To Contact Diagnoses Type 2 diabetes mellitus without complication, without long-term current use of insulin ([facility]) Jeanine Whitlock NP [address] [address] Referral ID Status Reason Start Date Expiration Date Visits Re quested Visits Authorized [id number] Closed 1 1 Specialty Diagnoses / Procedures Referred By Contac t Referred To Contact Diagnoses Type 2 diabetes mellitus with hyperglycemia, with long-term current use of insulin ([facility]) Jeanine Whitlock NP [address] [phone] Referral ID Status Reason Start Date Expiration Date V isits Requested Visits Authorized [id number] Authorized 03/10/2024 03/10/2027 1 1 Additional Source Comments INFORMATION SOURCE (unrecogn ized section and content) DATE CREATED AUTHOR 11/22/2017 [facility] DATE CREATED AUTHOR AUTHOR'S ORGANIZ ATION 05/15/2023 [facility] DATE CREATED AUTHOR AUTHOR'S ORGANIZ ATION 07/18/2023 [facility] DATE CREATED AUTHOR AUTHOR'S ORGANIZ ATION 03/08/[address] [facility] dical Specialists EPIC Care Teams (unrecognized sec tion and content) Solar Electric Practitioner Relationship Specialty Start Date End Date Jeanine Whitlock [address] [address] PCP - General 04/16/16 [employer] Practitioner Relationship Specialty Start Date End Date Jeanine Whitlock [address] [address] PCP - General 04/16/16 Solar [employer] Practitioner Relationship Specialty Start Date End Date Jose Putnam DO [address] [place] [address] PCP - General Family Medicine 11/09/22 Jeanine Whitlock, HEARING AID DISPENSER [address] [place] [address] Nurse Practitioner Family Medicine 11/09/22 [employer] Practitioner Relationship Specialty Start Date End Date Jose Putnam DO [address] [place] [address] PCP - General Family Medicine 11/09/22 Jeanine Whitlock, HEARING AID DISPENSER [address] [place] [address] Nurse Practitioner Family Medicine 11/09/22 Solar [employer] Practitioner Relationship Specialty Start Date End Date Jose Putnam DO [address] [place] [address] PCP - General Family Medicine 11/09/22 Jeanine Whitlock, HEARING AID DISPENSER [address] [place] [address] Nurse Practitioner Family Medicine 11/09/22 [employer] Practitioner Relationship Specialty Start Date End Date Jose Putnam DO [address] [place] [address] PCP - General Family Medicine 11/09/22 Jeanine Whitlock, HEARING AID DISPENSER [address] [place] [address] Nurse Practitioner Family Medicine 11/09/22 Solar [employer] Practitioner Relationship Specialty Start Date End Date Jose Putnam DO [address] [place], [place] [phone] PCP - General Family Medicine 11/09/22 Jeanine Whitlock NP [address] [place] [address] Nurse Practitioner Family Medicine 11/09/22 Reason for Visit (unrecogniz ed section and content) Specialty Diagnoses / Procedures Referred By Contac t Referred To Contact Radiology Diagnoses Age-related osteoporosis without current pathological fracture Procedures DEXA BONE DENSITY 2 SITES DEXA BONE DENSITY AXIAL SKELETON Tyler Ramey MD [address] [place] [address] Referral ID Status Reason Start Date Expiration Date V isits Requested Visits Authorized [id number] Pending Review 05/24/2023 05/23/2024 1 1 Reason Comments Annual Exam Reason Onset Date Comments update on dexcom and blood sugars 03/10/2024 New Medication ordered 03/10/2024 Reason Comments Med Refill Reason Onset Date Comments Med Refill 03/27/2024 FOR RECORDS PERTAINING TO PATIENTS WHO ARE [...] BE BASED ON THE PRIMARY CLINICAL RECORDS. [employer] provides no warranty or guarantee of the accuracy or completeness of information in this document.
--- NOTE | 2024-03-30 13:28 | PM.PRESUREVA ---
History of Present Illness History of Present Illness Chief complaint: hallux valgus right foot Narrative: Patient presents for preadmission testing. The patient reports a long history of bilateral foot pain and bunions. She underwent left foot surgery in January of this year and had a good result and now presents for right foot surgery. She states the pain is worse with certain footwear and with spending long periods of time on her feet. She has tried [id number] medications, rest, and different footwear with no relief. She denies any specific trauma or injury, and denies numbness, tingling, weakness, or any other complaints. Review of Systems ROS Narrative REVIEW OF SYSTEMS: Negative except as stated in HPI, ten or more systems reviewed. Constitutional: No fever, chills, weakness ENT: No sore throat or epistaxis Cardiovascular: No edema, chest pain, palpitations, or activity intolerance Respiratory: No shortness of breath, cough, or wheezing Musculoskeletal: No joint pain or swelling Gastrointestinal: No abdominal pain, constipation, diarrhea, or vomiting Genitourinary: No dysuria or hematuria Neurological: No numbness, tingling, weakness, or headache Psychiatric: No mood changes [facility] Medical History (Updated 03/30/24 @ 13:12 by Alicia Rico NP) Toe deformity ?M20.60 - Acquired deformities of toe(s), unspecified, unspecified foot (ICD-10) Arthritis ?M19.90 - Unspecified osteoarthritis, unspecified site (ICD-10) PTSD (post-traumatic stress disorder) ?F43.10 - Post-traumatic stress disorder, unspecified (ICD-10) Depression ?F32.A - Depression, unspecified (ICD-10) Panic attacks ?F41.0 - Panic disorder [episodic paroxysmal anxiety] (ICD-10) Anxiety ?F41.9 - Anxiety disorder, unspecified (ICD-10) COVID-19 ?U07.1 - COVID-19 (ICD-10) Migraine ?G43.909 - Migraine, unspecified, not intractable, without status migrainosus (ICD-10) Extremity edema ?R60.0 - Localized edema (ICD-10) Menopause ?Z78.0 - Asymptomatic menopausal state (ICD-10) Neuropathy, cervical (radicular) ?M54.12 - Radiculopathy, cervical region (ICD-10) Hypothyroid ?E03.9 - Hypothyroidism, unspecified (ICD-10) Hypertension ?I10 - Essential (primary) hypertension (ICD-10) Asthma ?J45.909 - Unspecified asthma, uncomplicated (ICD-10) Diabetes ?E11.9 - Type 2 diabetes mellitus without complications (ICD-10) Foot pain ?M79.673 - Pain in unspecified foot (ICD-10) Hallux rigidus ?M20.20 - Hallux rigidus, unspecified foot (ICD-10) Hallux valgus ?M20.10 - Hallux valgus (acquired), unspecified foot (ICD-10) Surgical History (Updated 03/25/24 @ 12:39 by Alicia Rico NP) H/O foot surgery (01/16/24) ?Z98.890 - Other specified postprocedural states (ICD-10) History of colonoscopy ?Z98.890 - Other specified postprocedural states (ICD-10) History of cardiac catheterization ?Z98.890 - Other specified postprocedural states (ICD-10) H/O cervical spine surgery ?Z98.890 - Other specified postprocedural states (ICD-10) History of cardiac catheterization ?Z98.890 - Other specified postprocedural states (ICD-10) H/O section ?Z98.891 - History of uterine scar from previous surgery (ICD-10) Hx of tonsillectomy ?Z90.89 - Acquired absence of other organs (ICD-10) Family History Other Family history of diabetes mellitus Family history of hypertension Family history of myocardial infarction Family history of stroke Social History (Updated 01/16/24 @ 07:51 by Kera Reynolds RN) Within the past year, how often did you have a drink containing alcohol: monthly or less Smoking status: Never smoker Second hand tobacco smoke exposure: Yes Non-prescribed substance use: denies use 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 Highest level of school completed/degree received: Master's degree Meds Home Medications and Allergies Home Medications ?Medication ?Instructions ?Recorded ?Confirmed ?Type alprazolam 0.25 mg tablet 0.25 mg PO TID PRN anxiety 01/10/24 03/30/24 History aripiprazole 5 mg tablet 5 mg PO DAILY 01/10/24 03/30/24 History ascorbic acid (vitamin C) 1,000 mg 1 g PO DAILY 01/10/24 03/30/24 History capsule aspirin 81 mg tablet,delayed 81 mg PO DAILY 01/10/24 03/30/24 History release (Adult Aspirin Regimen) bisoprolol fumarate 10 mg tablet 10 mg PO DAILY 01/10/24 03/30/24 History calcium carbonate 500 mg PO DAILY 01/10/24 03/30/24 History chlorthalidone 50 mg tablet 50 mg PO DAILY 01/10/24 03/30/24 History duloxetine 60 mg capsule,delayed 120 mg PO DAILY 01/10/24 03/30/24 History release empagliflozin 10 mg tablet 10 mg PO DAILY 01/10/24 03/30/24 History (Jardiance) meloxicam 15 mg tablet 15 mg PO DAILY 01/10/24 03/30/24 History metformin 500 mg tablet,extended 1,000 mg PO BID 01/10/24 03/30/24 History release 24 hr montelukast 10 mg tablet 10 mg PO DAILY 01/10/24 03/30/24 History multivitamin (Daily Multi-Vitamin 1 tab PO DAILY 01/10/24 03/30/24 History tablet) trazodone 150 mg tablet 75 mg PO QPM PRN insomnia 01/10/24 03/30/24 History vitamin B complex (Complex B-100 1 tab PO DAILY 01/10/24 03/30/24 History tablet,extended release) levothyroxine 100 mcg tablet 100 mcg PO DAILY 01/16/24 03/30/24 History (Synthroid) amlodipine 5 mg tablet 5 mg PO DAILY 03/30/24 03/30/24 History escitalopram oxalate 10 mg tablet 10 mg PO QPM 03/30/24 03/30/24 History losartan 50 mg tablet 50 mg PO DAILY 03/30/24 03/30/24 History semaglutide 0.25 mg or 0.5 mg (2 0.25 mg subcut QWEEK 03/30/24 03/30/24 History mg/3 mL) subcutaneous pen injector (Ozempic) Allergies Allergy/AdvReac Type Severity Reaction Status Date / Time Iodinated Contrast Media Allergy Rash Verified 03/30/24 12:58 shellfish derived Allergy Rash Verified 03/30/24 12:58 lisinopril AdvReac Cough Verified 03/30/24 12:58 Exam Narrative Exam Narrative: Constitutional: Awake, alert, comfortable, well-appearing, nontoxic, interactive, vital signs as charted Head: Normocephalic, atraumatic Neck: Supple, normal appearance, normal range of motion, no meningeal signs, no lymphadenopathy Respiratory: No respiratory distress, breath sounds clear Cardiovascular: Regular rate and rhythm, strong and regular heart tones Musculoskeletal: Obvious hallux valgus deformity right foot with tenderness over the first MTP, good capillary refill, sensation intact Skin: No rashes or induration, no lesions, only visible skin inspected Neuro: No neurological deficits, normal sensation Psychiatric: Oriented ?3, normal affect Assessment and Plan Assessment and Plan (1) Toe deformity: (2) Foot pain: (3) Hallux valgus: Plan Right first metatarsal phalangeal joint fusion with bone graft as needed scheduled with Dr. Sanon April 07, 2024.
[2024-03-30 14:40] LABS: Anion Gap 15.3; BUN Creatinine Ratio 23.1; Calcium 9.5 mg/dL (8.5-10.1); Chloride 101 mmol/L (98-107); Estimated GFR (African America >60 (>=60 mL/min/1.73m^2); Estimated GFR (Non-African Ame >60 (>=60 mL/min/1.73m^2); Glucose 116 mg/dL (74-106); Potassium 3.3 mmol/L (3.5-5.1); Sodium 142 mmol/L (136-145)
== END 2024-03-30 12:24 | disposition home or self-care (01) ==
LOC: PST 12:24
PROVIDERS: PCP Nurse Practitioner; Visit Provider Podiatrist Foot & Ankle Surgery
DX: Z01.812 Encounter for preprocedural laboratory examination (principal); Z01.818 Encounter for other preprocedural examination; M20.11 Hallux valgus (acquired), right foot
CPT/HCPCS: 36415; 80048; G0463

== ENCOUNTER 2024-04-07 06:21 | Day surgery (SDC) | payer OTHER, SELFPAY ==
[2024-03-30 13:19] VITALS: BP 131/82; PULSE 65; TEMP 36.4; O2SAT 94; BMI 38.5
[2024-04-07] VITALS (11 sets, daily range): BP systolic 104–143; BP diastolic 62–95; PULSE 72–88; TEMP 36.7–36.9; O2SAT 90–95; BMI 38.5
--- NOTE | 2024-04-07 | FL_ITS ---
[address] [address] Patient Name: AISHWARYA DUNN MRN: [id number] date: 1965 Sex: F Assigned Patient Location: SURGOUT Current Patient Location: [place] Accession/Order Number: [id number] Exam Date: 04/07/2024 09:05 Report Date: 04/08/2024 09:32 At the request of: ANA SCHUSTER Procedure: FL fluoroscopy <1hr NON-READ EXAM: FL fluoroscopy <1hr NON-READ HISTORY: TECHNIQUE: FINDINGS: Please see Operative Report. Electronically authenticated by: RADIOLOGIST NO Date: 04/08/2024 09:32
--- OUTSIDE RECORDS SUMMARY | 2024-04-07 06:24 | XMS_ITS | CCD ---
Author Organization [facility] Inform ion Partnership [employer] [facility] Care Team Providers Care 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 Name Role Phone RINE, JEANINE L Unavailable Unavailable KABOUR, AMEER Unavailable Unavailable AHMAD, SHOWKAT Unavailable Unavailable KAMIREDDY, ADIREDDY Unavailable Unavailable Rine, Jeanine L Primary Care Provider [phone] Rine, Jeanine L Primary Care Provider POLO DIAZ Referring Unavailable RINE, JEANINE L Primary Care Unavailable RINE, JEANINE L Referring Unavailable RINE, JEANINE L Primary Care Unavailable RAMEY, TYLER Referring Unavailable RINE, JEANINE L Primary Care Unavailable RINE, JEANINE L Primary Care Unavailable RAMEY, TYLER Referring Unavailable Jose Putnam DO Primary Care Provider [phone] Rinsj UROLOGY PHYSICIAN, Jeanine L Unavailable POLO DIAZ Attending Unavailable RINE, JEANINE L Attending Unavailable RINE, JEANINE L Attending Unavailable POLO DIAZ Attending Unavailable RINE, JEANINE L Attending Unavailable RINE, JEANINE L Attending Unavailable RINE, JEANINE L Referring Unavailable AMALIA FRANCIS Attending Unavailable Allergies Allergy Classification Reported Allergen(s) Allergy Type Date of Onset Reaction(s) Facility Unclassified (10 sources) Iodides Propensity to adverse reactions to drug 3 [employer] Work Phone: Unclassified (10 sources) Shellfish-Derive d Products Propensity to adverse reactions to drug 3 [employer] (2 sources) Seafood Propensity to adverse reactions to drug 3 [facility] (11 sources) Iodides Propensity to adverse reactions to drug 3 Hives [employer] Work Phone: (9 sources) Lisinopril Allergy to substance 3 C[facility] Medications Current Medications Medication Drug Class(es) Dates Sig (Normalized) Sig (Original) ALPRAZolam 0.25 mg oral tablet (12 sources) Benzodiazepine ALPRAZolam (Xana x) 0.25 MG tablet Indications: Anxiety Take 0.25 mg by mouth as needed at bedtime for anxiety. Active amLODIPine 5 mg oral tablet (9 sources) Dihydropyridine Calcium Channel Ayanna Start: 3 take 1 tablet by mouth in the morning amLODIPine (Norvasc) 5 MG tablet Indications: Essential hypertension (CMS/HCC) Take 1 tablet (5 mg) by mouth in the morning. 90 tablet 3 05/28/2023 Active ARIPiprazole 5 mg oral tablet (9 sources) Atypical Antipsychotic Start: 3 take 1 tablet by mouth in the morning ARIPiprazole (Abilify) 5 MG tablet Take 5 mg by mouth in the morning. 12/31/2022 Active ascorbic acid 500 mg oral capsule (9 sources) Vitamin C Ascorbic Acid (V itamin C) 500 MG capsule Indications: Wellness examination 1 (one) time each day at the same time. Active atorvastatin 10 mg oral tablet (10 sources) HMG-CoA Reductase Inhibitor Start: 4 atorvastatin [...] B Complex Vitamins (B COMPLEX 1 PO) (9 sources) B Complex Vitami ns (B COMPLEX 1 PO) Indications: Wellness examination as directed Orally Active b complex vitamins capsule (3 sources) take 1 capsule by mouth once daily b complex vitamins capsule Take 1 capsule by mouth daily. 0 Active bisoprolol fumarate 10 mg oral tablet (9 sources) beta-Adrenergic Ayanna Start: 05-28-20 take 1 tablet by mouth in the morning bisoprolol (Zebeta) 10 MG tablet Indications: Essential hypertension (CMS/HCC) Take 1 tablet (10 mg) by mouth in the morning. 90 tablet 3 05/28/2023 Active Blood Glucose Monitoring Suppl (FreeStyle Lite) w/Device kit (9 sources) Start: 11-20-19 24 Blood Glucose Monitoring Suppl (FreeStyle Lite) w/Device kit USE DIRECTED 11/20/2023 Active calcium carbonate 500 mg oral tablet (9 sources) take 1 capsule by mouth in the morning calcium carbonate (Os-Wilfredo) 1250 (500 Ca) MG tablet Indications: Wellness examination Take 1 capsule by mouth in the morning. Active Calcium Carbonate / Vitamin D (3 sources) take 1 tablet by mouth once daily Calcium Carbonate-Vitamin D (CALCIUM + D PO) Take 1 tablet by mouth daily 0 Active chlorthalidone 50 mg oral tablet (9 sources) Thiazide-like Diuretic Start: 05-28-20 23 chlorthalidone (Hygroton) 50 MG tablet Indications: Essential hypertension (CMS/HCC) TAKE 1 TABLET EVERY MORNING WITH FOOD 90 tablet 3 05/28/2023 Active Continuous Glucose Sensor (Dexcom G7 Sensor) [facility] (8 sources) Start: 03-16-20 24 Continuous Glucose Sensor (Dexcom G7 Sensor) [facility] [place] Indications: Type 2 diabetes mellitus without complication, without long-term current use of insulin (CMS/HCC) 1 Units every 14 (fourteen) days 2 each 11 03/16/2024 Active Start: 03-06-2024 Continuous Glu cose Sensor (Dexcom G7 Sensor) [facility] [place] Indications: Type 2 diabetes mellitus without complication, [...] DULoxetine 60 mg delayed release oral capsule (12 sources) Serotonin and Norepinephrine Reuptake Inhibitor take 1 capsule by mouth in the morning DULoxetine (Cymbalta) [address] capsule Indications: Degenerative cervical disc Take 60 mg by mouth in the morning. Active empagliflozin 25 mg oral tablet (11 sources) Sodium-Glucose Cotransporter 2 Inhibitor Start: 03-06-2024 End: 03-06-2025 take 1 tablet by mouth once daily empagliflozin (Jardiance) 25 MG Indications: Type 2 diabetes mellitus without complication, without long-term current use of insulin ([facility]) Take 1 tablet (25 mg) by mouth Daily 30 tablet 11 03/06/2024 03/06/2025 Active Start: 01-22-2024 End: 01-21-2025 take 1 tablet by mouth once daily empagliflozin (Jardiance) 10 MG Indications: Type 2 diabetes mellitus without complication, without long-term current use of insulin ([facility]) Take 1 tablet (10 mg) by mouth Daily 30 tablet 11 01/22/2024 03/06/2024 Discontinued (Therapy completed) escitalopram 10 mg oral tablet (2 sources) Serotonin Reuptake Inhibitor Start: 03-13-2024 take 1 tablet by mouth once daily escitalopram (Lexapro) 10 MG tablet Take 10 mg by mouth Daily 03/13/2024 Active fluconazole 100 mg oral tablet (9 sources) Azole Antifungal Start: 02-28-2024 take 1 tablet by mouth once daily fluconazole (Diflucan) 100 MG tablet Indications: Sandi vaginitis Take 1 tablet (100 mg) by mouth Daily 7 tablet 02/28/2024 Active levothyroxine sodium 0.1 mg oral tablet (12 sources) l-Thyroxine Start: 12-12-2023 Synthroid 100 MCG tablet Indications: Acquired hypothyroidism ([facility]) TAKE 1 TABLET IN THE MORNING BEFORE [...] Active losartan potassium 50 mg oral tablet (10 sources) Angiotensin 2 Receptor Ayanna Start: End: take 0.5 tablet by mouth once daily losartan (Cozaar) 50 MG tablet Indications: Type 2 diabetes mellitus without complication, without long-term current use of insulin (CMS/HCC) Take 0.5 tablets (25 mg) by mouth Daily 45 tablet 1 03/27/2024 Active meloxicam 15 mg oral tablet (9 sources) Nonsteroidal Anti-inflammatory Drug Start: 023 take 1 tablet by mouth in the morning meloxicam (Mobic) 15 MG tablet Indications: Degenerative cervical disc Take 1 tablet (15 mg) by mouth in the morning. 90 tablet 3 05/28/2023 Active 24 hr metFORMIN hydrochloride 500 mg extended release oral tablet (12 sources) Biguanide Start: 023 take 2 tablets by mouth every twenty-four [...] 0 Active montelukast 10 mg oral tablet (10 sources) Leukotriene Receptor Antagonist Start: 05-28-2023 End: 03-25-2024 montelukast (Singulair) 10 MG tablet Indications: Environmental and seasonal allergies TAKE 1 TABLET IN THE MORNING 90 tablet 3 03/25/2024 Active Semaglutide,0.25 or 0.5MG/DOS, (Ozempic, 0.25 or 0.5 MG/DOSE,) 2 MG/3ML solution pen-injector (6 sources) Start: 03-10-2024 Semaglutide,0.25 or 0.5MG/DOS, (Ozempic, 0.25 or 0.5 MG/DOSE,) 2 MG/3ML solution pen-injector Indications: Type 2 diabetes mellitus with hyperglycemia, with long-term current use of insulin (CMS/HCC) Inject 0.25 mg under the skin 1 (one) time per week 3 mL 1 03/10/2024 Active therapeutic multivitamin-mineral s (THERAGRAN-M) tablet (3 sources) take 1 tablet by mouth once daily therapeutic multivitamin-minera ls (THERAGRAN-M) tablet Take 1 tablet by mouth daily. 0 Active therapeutic multivitamin-mineral s (Theragran-M) tablet (9 sources) take 1 tablet by mouth once daily therapeutic multivitamin-minera ls (Theragran-M) tablet Take 1 tablet by mouth Daily Active traZODone hydrochloride 150 mg oral tablet (12 sources) Serotonin Reuptake Inhibitor traZODone (Desyrel) 150 MG tablet Indications: Insomnia due to other mental disorder Take 75 mg by mouth as needed at bedtime Active take 1 tablet by mouth once jr y traZODone (DESYREL) 150 MG tablet Take 150 mg by mouth nightly 0 Active zinc gluconate 50 mg oral tablet (9 sources) take 1 tablet by katiana th [...] (Therapy completed) aspirin 325 mg oral tablet (12 sources) Platelet Aggregation Inhibitor, Nonsteroidal Anti-inflammatory Drug [...] complication, without long-term current use of insulin ([facility]) Take 1 tablet (81 mg) by mouth in the morning. 30 tablet 11 05/10/2023 05/09/2024 Active Problems Active Problems Problem Classification Problem Date Documented Date Episodic/Chronic Acquired foot deformities (20 sources) Toe joint rigid; Translations: [Hallux rigidus, left foot] Onset: 01-21-2024 01-21-2024 Chronic Anxiety disorders (20 sources) Panic attack; Translations: [Panic disorder [episodic paroxysmal anxiety]] Onset: 07-20-2017 Resolved: 03-06-2024 07-22-2017 Chronic Asthma (12 sources) Mild intermittent asthma; Translations: [Mild intermittent asthma, uncomplicated] Onset: 11-09-2022 Chronic Diabetes mellitus with complications (12 sources) Hyperglycemia due to type 2 diabetes mellitus; Translations: [Type 2 diabetes mellitus with hyperglycemia] Onset: 01-21-2024 01-21-2024 Chronic Diabetes mellitus without complication (20 sources) Diabetes mellitus; Translations: [Type 2 diabetes mellitus without complications] Onset: 11-09-2022 Resolved: 05-10-2023 07-22-2017 Chronic Disorders of lipid metabolism (12 sources) Pure hypercholesterolemia; Translations: [Pure hypercholesterolemia, unspecified] Onset: 11-09-2022 11-09-2022 Chronic Essential hypertension (16 sources) Hypertensive disorder; Translations: [Essential (primary) hypertension] Onset: 11-09-2022 07-22-2017 Chronic Immunizations and screening for infectious disease (2 sources) Immunization due; Translations: [Encounter for immunization] 03-06-2024 Episodic Miscellaneous mental health disorders (2 sources) Primary insomnia; Translations: [Primary insomnia] 03-06-2024 Chronic Mood disorders (14 sources) Severe major depression, single episode, without psychotic features; Translations: [Major depressive disorder, single episode, severe without psychotic features] Onset: 07-20-2017 07-22-2017 Chronic Nutritional deficiencies (13 sources) Vitamin D deficiency, unspecified; Translations: [Vitamin D deficiency] Onset: 11-09-2022 Chronic Osteoporosis (2 sources) Senile osteoporosis; Translations: [Age-related osteoporosis without current pathological fracture] Onset: 07-15-2023 07-15-2023 Chronic Other and unspecified benign neoplasm (2 sources) Melanocytic nevus of trunk; Translations: [Melanocytic nevi of trunk] 04-03-2024 Episodic Other nutritional; endocrine; and metabolic disorders (9 sources) Obesity; Translations: [Obesity, unspecified] Onset: 11-09-2022 11-09-2022 Chronic Other nutritional; endocrine; and metabolic disorders (2 sources) Body mass index 30+ - obesity; Translations: [Body mass index (BMI) 38.0-38.9, adult] 03-06-2024 Chronic Other skin disorders (2 sources) Seborrheic keratosis; Translations: [Other seborrheic keratosis] 04-03-2024 Episodic Other skin disorders (2 sources) Inflamed seborrheic keratosis; Translations: [Inflamed seborrheic keratosis] 04-03-2024 Episodic Other upper respiratory disease (12 sources) Allergic disposition; Translations: [Other allergic rhinitis] Onset: 11-09-2022 11-09-2022 Chronic Residual codes; unclassified (2 sources) Patient encounter status; Translations: [Encounter for procedure for purposes other than remedying health state, unspecified] 04-03-2024 Episodic Spondylosis; intervertebral disc disorders; other back problems (11 sources) Degeneration of cervical intervertebral disc; Translations: [Other cervical disc degeneration, unspecified cervical region] Onset: 11-09-2022 11-09-2022 Chronic Thyroid disorders (13 sources) Hypothyroidism, unspecified; Translations: [Acquired hypothyroidism] Onset: [...] Resolved: 07-22-2017 07-22-2017 Episodic Residual codes; unclassified (9 sources) Insomnia; Translations: [Insomnia, unspecified] Onset: 11-09-2022 11-09-2022 Episodic Results Test Name Value Interpretation Reference Range Facility No Panel Informationon 04-03 Complexity comment: Snip excision Informed consent: discussed and consent obtained Hemostasis achieved with: electrodesiccation [facility] Destruction method comment: Snip removal Anesthesia: the lesion was anesthetized in a standard fashion Anesthetic: 1% lidocaine w/ epinephrine 1-100,000 buffered w/ 8.4% NaHCO3 Hemostasis achieved with: electrodesiccation Outcome: patient tolerated procedure well with no complications [facility] DEXA BONE DENSITY 2 SITESon 07-17-2023 DEXA BONE DENSITY 2 SITES DEXA BONE DENSITY 2 SITES 07/15/2023 12:21 PM EST Indication: Screening. Comparison: Accurate comparison is not possible due to differences in equipment. [employer]. Lumbar spine and bilateral hips. Lumbar spine [...] Bernardo Squires MD 07/17/23 Final result Normal [facility] DXA Bone [Mass/Area] Bone de nsityon 07-17-2023 Some evidence of elevated bone mineral density [facility] CONSOL[facility]ATED DEXA BONE DENSITY 2 SITES [...] T score 3.3. [facility] CONSOLIDATED Bernardo Squires MD - 07/17/2023 DEXA BONE DENSITY 2 SITES 07/15/2023 12:21 PM EST Indication: Screening. Comparison: Accurate comparison is not possible due to differences in equipment. [employer]. Lumbar spine and bilateral hips. Lumbar spine [...] Some evidence of elevated bone mineral density [employer] DXA Bone [Mass/Area] Bone de nsityOrdered By: Bernardo Squires on 07-17-2023 [employer] Work Phone: DXA Bone [Mass/Area] Bone de nsityon 07-15-2023 Radiology Study observation (narrative) [employer] BI MAMMOGRAM SCREENING TOMOS YNTHESIS BILATERALon 05-24-2023 [...] IS VERY IMPORTANT TO YOUR HEALTH. THE [employer] GUIDELINES RECOMMEND THAT WOMEN 40 [...] Not Available Comment on above: Order Comment: [facility] CBC with Diffon 12-27-2022 Abs. Basophil 0.06 k/uL Normal 0.00-0.20 [facility] Comment on above: Performed By: #### C DP #### [address] [place], [place] [id number] [employer]: Gerson Barton MD Abs.Imm.Granulocyte 0.08 k/uL Normal 0.00-0.30 [facility] Comment on above: Performed By: #### C DP #### [address] [place] [address] [employer]: Gerson Barton MD Abs.Neutrophil (Seg) 6.19 k/uL Normal 1.50-8.10 [facility] Comment on above: Performed By: #### C DP #### [address] [place] [id number] [employer]: Gerson Barton MD Basophils/100 WBC (Bld) 1 % Normal 0-2 [facility] Comment on above: Performed By: #### C DP #### [address] [place], [place] [id number] [employer]: Gerson Barton MD Eosinophils (Bld) [#/Vol] 0.12 10*3/uL Normal 0.00-0.44 [facility] Comment on above: Performed By: #### C DP #### [facility] [address] [place] [address] [place] [address] [employer]: Gerson Barton MD Eosinophils/100 WBC (Bld) 1 % Normal 1-4 [facility] Comment on above: Performed By: #### C DP #### [facility] [address] [place] [address] [place] [place], [place] [id number] [employer]: Gerson Barton MD Erythrocyte distribution width (RBC) [Ratio] 14.0 % Normal 11.8-14.4 [facility] Comment on above: Performed By: #### C DP #### [facility] [address] [place], [place] [id number] [employer]: Gerson Barton MD Hematocrit (Bld) [Volume fraction] 44.1 % Normal 36.3-47.1 [facility] Comment on above: Performed By: #### C DP #### [facility] [address] [place], [facility]83 [employer]: Gerson Barton MD Hemoglobin (Bld) [Mass/Vol] 14.5 g/dL Normal 11.9-15.1 [facility] Comment on above: Performed By: #### C DP #### [address] [place], [facility]83 [employer]: Gerson Barton MD Immature granulocytes/100 WBC (Bld) 1 % High 0 [facility] Comment on above: Performed By: #### C DP #### [address] [place], [place] [id number] [employer]: Gerson Barton MD Lymphocytes (Bld) [#/Vol] 3.02 10*3/uL Normal 1.10-3.70 [facility] Comment on above: Performed By: #### C DP #### [facility] [address] [place] [address] Dr. [place], [facility]83 [employer]: Gerson Barton MD Lymphocytes/100 WBC (Bld) 29 % Normal 24-43 [facility] Comment on above: Performed By: #### C DP #### [address] [place] [address] [employer]: Gerson Barton MD MCH (RBC) [Entitic mass] 29.2 pg Normal 25.2-33.5 [facility] Comment on above: Performed By: #### C DP #### [facility] [address] [place] [address] Dr. [place], [place] [id number] [employer]: Gerson Barton MD MCHC (RBC) [Mass/Vol] 32.9 g/dL Normal 28.4-34.8 [facility] Comment on above: Performed By: #### C DP #### [facility] [address] [place], [place] [id number] [employer]: Gerson Barton MD MCV (RBC) [Entitic vol] 88.7 fL Normal 82.6-102.9 [facility] Comment on above: Performed By: #### C DP #### [address] [place], [place] [id number] [employer]: Gerson Barton MD Monocytes (Bld) [#/Vol] 0.98 10*3/uL Normal 0.10-1.20 [facility] Comment on above: Performed By: #### C DP #### [facility] [address] [place] [address] Dr. [place], [place] [id number] [employer]: Gerson Barton MD Monocytes/100 WBC (Bld) 9 % Normal 3-12 [facility] Comment on above: Performed By: #### C DP #### [address] [place], [place] [id number] [employer]: Gerson Barton MD Neutrophil (Seg) 59 % Normal 36-65 [facility] Comment on above: Performed By: #### C DP #### [facility] [address] [place], [place] [id number] [employer]: Gerson Barton MD NRBC Automated 0.0 per 100 WBC Normal 0.0 [facility] Comment on above: Performed By: #### C DP #### [facility] [address] [place], [place] [id number] [employer]: Gerson Barton MD Platelet mean volume (Bld) [Entitic vol] 9.3 fL Normal 8.1-13.5 [facility] Comment on above: Performed By: #### C DP #### [facility] [address] [place], [place] [id number] [employer]: Gerson Barton MD Platelets (Bld) [#/Vol] 365 10*3/uL Normal 138-453 [facility] Comment on above: Performed By: #### C DP #### [facility] [address] [place], [place] [id number] [employer]: Gerson Barton MD RBC (Bld) [#/Vol] 4.97 10*6/uL Normal 3.95-5.11 [facility] Comment on above: Performed By: #### C DP #### [facility] [address] [place], [place] [id number] [employer]: Gerson Barton MD WBC (Bld) [#/Vol] 10.5 10*3/uL Normal 3.5-11.3 [facility] Comment on above: Performed By: #### C DP #### [facility] [address] [place], [place] [id number] [employer]: Gerson Barton MD Hemoglobin A1Con 12-20-2022 Glucose [Mass/Vol] 126 mg/dL Normal [facility] Comment on above: Result Comment: The ADA and AACC recommend providing the estimated average glucose result to permit better patient understanding of their HBA1c result. Performed By: #### C P, CDP, TSHX #### [facility] [address] [place] [address] [employer]: Gerson Barton MD #### URNMAB, FT4, GLYHGB, VD25, LIPR #### [address] [address] [employer]: Asad Draper MD HbA1c (Bld) [Mass fraction] 6.0 % Normal 4.0-6.0 [facility] Comment on above: Performed By: #### C P, CDP, TSHX #### [address] [place] [address] [employer]: Gerson Barton MD #### URNMAB, FT4, GLYHGB, VD25, LIPR #### [place] [place], [place] [id number] [employer]: Asad Draper MD Lipid Profileon 12-20-2022 Cholesterol [Mass/Vol] 115 mg/dL Normal <200 [facility] Comment on above: Result Comment: Cholesterol Guidelines: <200 Desirable 200-240 Borderline >240 Undesirable Performed By: #### C P, CDP, TSHX #### [address] [place], [place] [id number] [employer]: Gerson Barton MD #### URNMAB, FT4, GLYHGB, VD25, LIPR #### [address] [place], [place] [id number] [employer]: Asad Draper MD Cholesterol in HDL [Mass/Vol] 49 mg/dL Normal >40 [facility] Comment on above: Result Comment: HDL Guidelines: <40 Undesirable 40-59 Borderline >59 Desirable Performed By: #### C P, CDP, TSHX #### [address] [place], [place] [id number] [employer]: Gerson Barton MD #### URNMAB, FT4, GLYHGB, VD25, LIPR #### [address] [place], [place] [id number] [employer]: Asad Draper MD Cholesterol in LDL [Mass/Vol] 32 mg/dL Normal 0-130 [facility] Comment on above: Result Comment: LDL Guidelines: <100 Desirable 100-129 Near to/above Desirable 130-159 Borderline >159 Undesirable Direct (measured) LDL and calculated LDL are not interchangeable tests. Performed By: #### C P, CDP, TSHX #### [address] [place], [place] [id number] [employer]: Gerson Barton MD #### URNMAB, FT4, GLYHGB, VD25, LIPR #### [employer] [address] [place], [place] [id number] [employer]: Asad Draper MD Cholesterol.total/Ch olesterol in HDL [Mass ratio] 2.3 {ratio} Normal <5 [facility] Comment on above: Performed By: #### C P, CDP, TSHX #### [address] [place], [place] [id number] [employer]: Gerson Barton MD #### URNMAB, FT4, GLYHGB, VD25, LIPR #### [employer] [facility] [place], [place] [address]69[address] Flame Degreaser: Asad Draper MD Triglyceride [Mass/Vol] 171 mg/dL High <150 [facility] Comment on above: Result Comment: Triglyceride Guidelines: <150 Desirable 150-199 Borderline 200-499 High >499 Very high Based on AHA Guidelines for fasting triglyceride, March 2012. Performed By: #### C P, CDP, TSHX #### [address] [place], [place] [id number] Fl[employer]reaser: Gerson Barton MD #### URNMAB, FT4, GLYHGB, VD25, LIPR #### [facility] [place], [place] [id number] Flame Degreaser: Asad Draper MD Microalb.,Random Uron 2022 Microalb/Creat Ratio 178 mcg/mg creat High <25 [facility] Comment on above: Performed By: #### C P, CDP, TSHX #### [address] [place], [place] [id number] [employer]: Gerson Barton MD #### URNMAB, FT4, GLYHGB, VD25, LIPR #### [address] [place] [address] [employer]: Asad Draper MD Microalbumin conc. 764 mg/L High <21 [facility] Comment on above: Performed By: #### C P, CDP, TSHX #### [facility] [address] [place] [address] Dr[place], [place] [id number] [employer]: Gerson Barton MD #### URNMAB, FT4, GLYHGB, VD25, LIPR #### [address] [address] [address] Flame Degreaser: Asad Draper MD Creatinine [Mass/Vol] 428.7 mg/dL High 28.0-217.0 [facility] Comment on above: Performed By: #### C P, CDP, TSHX #### [address] [place], [place] [id number] Flame Degreaser: Gerson Barton MD #### URNMAB, FT4, GLYHGB, VD25, LIPR #### [address] [address] Flame Degreaser: Asad Draper MD Thyroxine, Freeon 12-204 Thyroxine, Free 1.5 ng/dL Normal 0.9-1.7 [facility] Comment on above: Performed By: #### C P, CDP, TSHX #### [facility] [address] [place] [address] Dr. [place], [place] [phone] Flame Degreaser: Gerson Barton MD #### URNMAB, FT4, GLYHGB, VD25, LIPR #### [address] [address] Flame Degreaser: Asad Draper MD Vitamin D 25 OHon 4 Vitamin D 25 OH 59.0 ng/mL Normal >29.9 [facility] Comment on above: Result Comment: Reference Range: Vitamin D status Range Deficiency <20 ng/mL Mild Deficiency 20-30 ng/mL Sufficiency 30-100 ng/mL Toxicity >100 ng/mL Performed By: #### C P, CDP, TSHX #### [facility] [address] [place] [address] Flame Degreaser: Gerson Barton MD #### URNMAB, FT4, GLYHGB, VD25, LIPR #### [facility] [address] [place], [place] [phone] Flame Degreaser: Asad Draper MD CBC with Auto Differentialon 12-19-2022 Basophils (Bld) [#/Vol] 0.05 10*3/uL [facility] Basophils/100 WBC (Bld) 0 % 0 - 2 % [facility] Eosinophils (Bld) [#/Vol] 0.07 10*3/uL [facility] Eosinophils/100 WBC (Bld) 1 % 1 - 4 % [facility] Erythrocyte distribution width (RBC) [Ratio] 13.8 % 11.8 - 14.4 % [facility] Hematocrit (Bld) [Volume fraction] 47.2 % High 36.3 - 47.1 % [facility] Hemoglobin (Bld) [Mass/Vol] 15.9 g/dL High 11.9 - 15.1 g/dL [facility] Immature granulocytes (Bld) [#/Vol] 0.09 10*3/uL [facility] Immature granulocytes/100 WBC (Bld) 1 % High 0 [facility] Interpretation and review of laboratory results Abnormal [facility] Lymphocytes/100 WBC (Bld) 16 % Low 24 - 43 % [facility] Lymphocytes/100 WBC (Bld) 1.85 % [facility] MCH (RBC) [Entitic mass] 28.8 pg 25.2 - 33.5 pg [facility] MCHC (RBC) [Mass/Vol] 33.7 g/dL 28.4 - 34.8 g/dL [facility] MCV (RBC) [Entitic vol] 85.5 fL 82.6 - 102.9 fL [facility] Monocytes/100 WBC (Bld) 8 % 3 - 12 % [facility] Monocytes/100 WBC (Bld) 0.89 % [facility] Neutrophils/100 WBC (Bld) 74 % High 36 - 65 % [facility] Nucleated RBC/100 WBC (Bld) [Ratio] 0.0 % 0.0 per 100 WBC [facility] Platelet mean volume (Bld) [Entitic vol] 9.0 fL 8.1 - 13.5 fL [facility] Platelets (Bld) [#/Vol] 335 10*3/uL [facility] RBC (Bld) [#/Vol] 5.52 10*6/uL High 3.95 - 5.1 1 m/uL [facility] Segmented neutrophils/100 WBC (Bld) 8.61 % High [facility] WBC other (Bld) [#/Vol] 11.6 High [facility] CBC with Diffon 12-19-2022 Abs. Basophil 0.05 k/uL Normal 0.00-0.20 [facility] Comment on above: Performed By: #### C P, CDP, TSHX #### [facility] [address] [place] [address] Dr. [place] [id number] Flame Degreaser: Gerson Barton MD #### URNMAB, FT4, GLYHGB, VD25, LIPR #### [place] [phone] Flame Degreaser: Asad Draper MD Abs.Imm.Granulocyte 0.09 k/uL Normal 0.00-0.30 [facility] Comment on above: Performed By: #### C P, CDP, TSHX #### [facility] [address] [place] [address] [place] [address] Flame Degreaser: Gerson Barton MD #### URNMAB, FT4, GLYHGB, VD25, LIPR #### [place] [phone] Flame Degreaser: Asad Draper MD Abs.Neutrophil (Seg) 8.61 k/uL High 1.50-8.10 [facility] Comment on above: Performed By: #### C P, CDP, TSHX #### [address] [place] [phone] Flame Degreaser: Gerson Barton MD #### URNMAB, FT4, GLYHGB, VD25, LIPR #### [address] [id number] Flame Degreaser: Asad Draper MD Basophils/100 WBC (Bld) 0 % Normal 0-2 [facility] Comment on above: Performed By: #### C P, CDP, TSHX #### [address] [place] [phone] Flame Degreaser: eGrson Barton MD #### URNMAB, FT4, GLYHGB, VD25, LIPR #### [place] [address] Flame Degreaser: Asad Draper MD Eosinophils (Bld) [#/Vol] 0.07 10*3/uL Normal 0.00-0.44 [facility] Comment on above: Performed By: #### C P, CDP, TSHX #### [address] [place], [facility]83 Flame Degreaser: Gerson Barton MD #### URNMAB, FT4, GLYHGB, VD25, LIPR #### [address] [id number] Flame Degreaser: Asad Draper MD Eosinophils/100 WBC (Bld) 1 % Normal 1-4 [facility] Comment on above: Performed By: #### C P, CDP, TSHX #### [address] [place] [phone] Flame Degreaser: Gerson Barton MD #### URNMAB, FT4, GLYHGB, VD25, LIPR #### [address] [address] Flame Degreaser: Asad Draper MD Erythrocyte distribution width (RBC) [Ratio] 13.8 % Normal 11.8-14.4 [facility] Comment on above: Performed By: #### C P, CDP, TSHX #### [address] [place] [phone] Flame Degreaser: Gerson Barton MD #### URNMAB, FT4, GLYHGB, VD25, LIPR #### [address] [address] Flame Degreaser: Asad Draper MD Hematocrit (Bld) [Volume fraction] 47.2 % High 36.3-47.1 [facility] Comment on above: Performed By: #### C P, CDP, TSHX #### [address] [place] [phone] Flame Degreaser: Gerson Barton MD #### URNMAB, FT4, GLYHGB, VD25, LIPR #### [address] [address] Flame Degreaser: Asad Draper MD Hemoglobin (Bld) [Mass/Vol] 15.9 g/dL High 11.9-15.1 [facility] Comment on above: Performed By: #### C P, CDP, TSHX #### [address] [place] [phone] Flame Degreaser: Gerson Barton MD #### URNMAB, FT4, GLYHGB, VD25, LIPR #### [address] [phone] Flame Degreaser: Asad Draper MD Immature granulocytes/100 WBC (Bld) 1 % High 0 [facility] Comment on above: Performed By: #### C P, CDP, TSHX #### [address] [place] [phone] Flame Degreaser: Gerson Barton MD #### URNMAB, FT4, GLYHGB, VD25, LIPR #### [address] [address] Flame Degreaser: Asad Draper MD Lymphocytes (Bld) [#/Vol] 1.85 10*3/uL Normal 1.10-3.70 [facility] Comment on above: Performed By: #### C P, CDP, TSHX #### [address] [place] [phone] Flame Degreaser: Gerson Barton MD #### URNMAB, FT4, GLYHGB, VD25, LIPR #### [place] [address] Flame Degreaser: Asad Draper MD Lymphocytes/100 WBC (Bld) 16 % Low 24-43 [facility] Comment on above: Performed By: #### C P, CDP, TSHX #### [address] [place] [address] Flame Degreaser: Gerson Barton MD #### URNMAB, FT4, GLYHGB, VD25, LIPR #### [address] [address] Flame Degreaser: Asad Draper MD MCH (RBC) [Entitic mass] 28.8 pg Normal 25.2-33.5 [facility] Comment on above: Performed By: #### C P, CDP, TSHX #### [address] [place] [phone] Flame Degreaser: Gerson Barton MD #### URNMAB, FT4, GLYHGB, VD25, LIPR #### [address] [phone] Flame Degreaser: Asad Draper MD MCHC (RBC) [Mass/Vol] 33.7 g/dL Normal 28.4-34.8 [facility] Comment on above: Performed By: #### C P, CDP, TSHX #### [address] [place] [phone] Flame Degreaser: Gerson Barton MD #### URNMAB, FT4, GLYHGB, VD25, LIPR #### [address] [address] Flame Degreaser: Asad Draper MD MCV (RBC) [Entitic vol] 85.5 fL Normal 82.6-102.9 [facility] Comment on above: Performed By: #### C P, CDP, TSHX #### [address] [place] [phone] Flame Degreaser: Gerson Barton MD #### URNMAB, FT4, GLYHGB, VD25, LIPR #### [address] [id number] Flame Degreaser: Asad Draper MD Monocytes (Bld) [#/Vol] 0.89 10*3/uL Normal 0.10-1.20 [facility] Comment on above: Performed By: #### C P, CDP, TSHX #### [address] [place] [phone] Flame Degreaser: Gerson Barton MD #### URNMAB, FT4, GLYHGB, VD25, LIPR #### [address] [address] Flame Degreaser: Asad Draper MD Monocytes/100 WBC (Bld) 8 % Normal 3-12 [facility] Comment on above: Performed By: #### C P, CDP, TSHX #### [address] [place] [phone] Flame Degreaser: Gerson Barton MD #### URNMAB, FT4, GLYHGB, VD25, LIPR #### [address] [phone] Flame Degreaser: Asad Draper MD Neutrophil (Seg) 74 % High 36-65 [facility] Comment on above: Performed By: #### C P, CDP, TSHX #### [address] [place] [phone] Flame Degreaser: Gerson Barton MD #### URNMAB, FT4, GLYHGB, VD25, LIPR #### [address] [address] Flame Degreaser: Asad Draper MD NRBC Automated 0.0 per 100 WBC Normal 0.0 [facility] Comment on above: Performed By: #### C P, CDP, TSHX #### [address] [place] [phone] Flame Degreaser: Gerson Barton MD #### URNMAB, FT4, GLYHGB, VD25, LIPR #### [address] [address] Flame Degreaser: Asad Draper MD Platelet mean volume (Bld) [Entitic vol] 9.0 fL Normal 8.1-13.5 [facility] Comment on above: Performed By: #### C P, CDP, TSHX #### [address] [place] [phone] Flame Degreaser: Gerson Barton MD #### URNMAB, FT4, GLYHGB, VD25, LIPR #### [address] [phone] Flame Degreaser: Asad Draper MD Platelets (Bld) [#/Vol] 335 10*3/uL Normal 138-453 [facility] Comment on above: Performed By: #### C P, CDP, TSHX #### [address] [place], [place] [phone] Flame Degreaser: Gerson Barton MD #### URNMAB, FT4, GLYHGB, VD25, LIPR #### [place] [address]6842 [place], [place] [phone] Flame Degreaser: Asad Draper MD RBC (Bld) [#/Vol] 5.52 10*6/uL High 3.95-5.11 [facility] Comment on above: Performed By: #### C P, CDP, TSHX #### [address] [place], [place] [phone] Flame Degreaser: Gerson Barton MD #### URNMAB, FT4, GLYHGB, VD25, LIPR #### [place] [address]6843 [place], [place] [phone] Flame Degreaser: Asad Draper MD WBC (Bld) [#/Vol] 11.6 10*3/uL High 3.5-11.3 [facility] Comment on above: Performed By: #### C P, CDP, TSHX #### [address] [place], [facility]83 Flame Degreaser: Gerson Barton MD #### URNMAB, FT4, GLYHGB, VD25, LIPR #### [place] [address]68[address] [place], [place] [phone] Flame Degreaser: Asad Draper MD Comp Metabolic Profon 2022 Albumin [Mass/Vol] 5.1 g/dL Normal 3.5-5.2 [facility] Comment on above: Performed By: #### C P, CDP, TSHX #### [address] [place] [address] Flame Degreaser: Gerson Barton MD #### URNMAB, FT4, GLYHGB, VD25, LIPR #### [address] [id number] Flame Degreaser: Asad Draper MD Albumin/Glob Ratio 1.6 Normal 1.0-2.5 [facility] Comment on above: Performed By: #### C P, CDP, TSHX #### [address] [place] [phone] ( Flame Degreaser: Gerson Barton MD #### URNMAB, FT4, GLYHGB, VD25, LIPR #### [address] [phone] Flame Degreaser: Asad Draper MD Alkaline Phos 74 U/L Normal 35-104 [facility] Comment on above: Performed By: #### C P, CDP, TSHX #### [address] [place] [phone] Flame Degreaser: Gerson Barton MD #### URNMAB, FT4, GLYHGB, VD25, LIPR #### [place] [address] Flame Degreaser: Asad Draper MD ALT [Catalytic activity/Vol] 44 U/L High 5-33 [facility] Comment on above: Performed By: #### C P, CDP, TSHX #### [address] [place] [phone] Flame Degreaser: Gerson Barton MD #### URNMAB, FT4, GLYHGB, VD25, LIPR #### [place] [phone] Flame Degreaser: Asad Draper MD Anion gap [Moles/Vol] 14 mmol/L Normal 9-17 [facility] Comment on above: Performed By: #### C P, CDP, TSHX #### [address] [place], [place] [phone] Flame Degreaser: Gerson Barton MD #### URNMAB, FT4, GLYHGB, VD25, LIPR #### [place] [address]68[address] [place], [place] [phone] Flame Degreaser: Asad Draper MD AST [Catalytic activity/Vol] 27 U/L Normal <32 [facility] Comment on above: Performed By: #### C P, CDP, TSHX #### [facility] [address] [place] [address] [place] [address] Flame Degreaser: Gerson Barton MD #### URNMAB, FT4, GLYHGB, VD25, LIPR #### [address] [phone] Flame Degreaser: Asad Draper MD Bilirubin [Mass/Vol] 1.7 mg/dL High 0.3-1.2 [facility] Comment on above: Performed By: #### C P, CDP, TSHX #### [facility] [address] [place] [address] [place] [address] Flame Degreaser: Gerson Barton MD #### URNMAB, FT4, GLYHGB, VD25, LIPR #### [address] [phone] Flame Degreaser: Asad Draper MD BUN/CRE Ratio 20 Normal 9-20 [facility] Comment on above: Performed By: #### C P, CDP, TSHX #### [facility] [address] [place] [address] [place] [address] Flame Degreaser: Gerson Barton MD #### URNMAB, FT4, GLYHGB, VD25, LIPR #### [place] [address] [place], [place] [id number] Flame Degreaser: Asad Draper MD Calcium [Mass/Vol] 10.5 mg/dL High 8.6-10.4 [facility] Comment on above: Performed By: #### C P, CDP, TSHX #### [facility] [address] [place] [address] [place] [address] Flame Degreaser: Gerson Barton MD #### URNMAB, FT4, GLYHGB, VD25, LIPR #### [address] [phone] Flame Degreaser: Asad Draper MD Chloride [Moles/Vol] 94 mmol/L Low 98-107 [facility] Comment on above: Performed By: #### C P, CDP, TSHX #### [address] [place] [address] Flame Degreaser: Gerson Barton MD #### URNMAB, FT4, GLYHGB, VD25, LIPR #### [address] [id number] Flame Degreaser: Asad Draper MD CO2 [Moles/Vol] 30 mmol/L Normal 20-31 [facility] Comment on above: Performed By: #### C P, CDP, TSHX #### [address] [place], [place] [phone] Flame Degreaser: Gerson Barton MD #### URNMAB, FT4, GLYHGB, VD25, LIPR #### [address] [phone] Flame Degreaser: Asad Draper MD Creatinine [Mass/Vol] 0.8 mg/dL Normal 0.5-0.9 [facility] Comment on above: Performed By: #### C P, CDP, TSHX #### [facility] [address] [place] [address] Dr. [place], [place] [phone] Flame Degreaser: Gerson Barton MD #### URNMAB, FT4, GLYHGB, VD25, LIPR #### [address] [phone] Flame Degreaser: Asad Draper MD GFR/1.73 sq M.predicted among non-blacks MDRD (S/P/Bld) [Vol rate/Area] mL/min/{1.73_m2} Normal >60 [facility] Comment on above: Result Comment: These [...] By: #### C P, CDP, TSHX #### [address] [place] [address] Flame Degreaser: Gerson Barton MD #### URNMAB, FT4, GLYHGB, VD25, LIPR #### [address] [id number] Flame Degreaser: Asad Draper MD Glucose [Mass/Vol] 137 mg/dL High 70-99 [facility] Comment on above: Performed By: #### C P, CDP, TSHX #### [address] [place] [phone] Flame Degreaser: Gerson Barton MD #### URNMAB, FT4, GLYHGB, VD25, LIPR #### [place] [address] [place], [place] [phone] Flame Degreaser: Asad Draper MD Potassium [Moles/Vol] 4.3 mmol/L Normal 3.7-5.3 [facility] Comment on above: Performed By: #### C P, CDP, TSHX #### [address] [place] [phone] Flame Degreaser: Gerson Barton MD #### URNMAB, FT4, GLYHGB, VD25, LIPR #### [address] [id number] Flame Degreaser: Asad Draper MD Protein [Mass/Vol] 8.2 g/dL Normal 6.4-8.3 [facility] Comment on above: Performed By: #### C P, CDP, TSHX #### [address] [place] [address] Flame Degreaser: Gerson Barton MD #### URNMAB, FT4, GLYHGB, VD25, LIPR #### [address] [id number] Flame Degreaser: Asad Draper MD Sodium [Moles/Vol] 138 mmol/L Normal 135-144 [facility] Comment on above: Performed By: #### C P, CDP, TSHX #### [address] [place] [phone] Flame Degreaser: Gerson Barton MD #### URNMAB, FT4, GLYHGB, VD25, LIPR #### [address] [phone] Flame Degreaser: Asad Draper MD Urea nitrogen [Mass/Vol] 16 mg/dL Normal 6-20 [facility] Comment on above: Performed By: #### C P, CDP, TSHX #### [address] [place] [phone] Flame Degreaser: Gerson Barton MD #### URNMAB, FT4, GLYHGB, VD25, LIPR #### [address] [phone] Flame Degreaser: Asad Draper MD Comprehensive Metabolic Pane [facility] 12-19-2022 Albumin [Mass/Vol] 5.1 g/dL 3.5 - 5.2 g/dL [facility] Albumin/Globulin [Mass ratio] 1.6 {ratio} 1.0 - 2.5 [facility] ALP [Catalytic activity/Vol] 74 U/L 35 - 104 U/L [facility] ALT [Catalytic activity/Vol] 44 U/L High 5 - 33 U/L [facility] Anion gap [Moles/Vol] 14 mmol/L 9 - 17 mmol/L [facility] AST [Catalytic activity/Vol] 27 U/L NINF - 32 U/L [facility] Bilirubin [Mass/Vol] 1.7 mg/dL High 0.3 - 1 .2 mg/dL [facility] Calcium [Mass/Vol] 10.5 mg/dL High 8.6 - 10. 4 mg/dL [facility] Chloride [Moles/Vol] 94 mmol/L Low 98 - 10 7 mmol/L [facility] CO2 [Moles/Vol] 30 mmol/L 20 - 31 mmol/L [facility] Creatinine [Mass/Vol] 0.8 mg/dL 0.5 - 0.9 mg/dL [facility] GFR/1.73 sq M.predicted MDRD (S/P/Bld) [Vol rate/Area] - PINF [facility] Comment on above: These results are [...] mg/dL High 70 - 99 mg/dL [facility] Interpretation and review of laboratory results Abnormal [facility] Potassium [Moles/Vol] 4.3 mmol/L 3.7 - 5.3 mmol/L [facility] Protein [Mass/Vol] 8.2 g/dL 6.4 - 8.3 g/dL [facility] Sodium [Moles/Vol] 138 mmol/L 135 - 144 mmol/L [facility] Urea nitrogen [Mass/Vol] 16 mg/dL 6 - 20 mg/dL [facility] Urea nitrogen/Creatinine [Mass ratio] 20 mg/mg 9 - 20 [facility] Lipid Panelon 12-19-2022 Cholesterol [Mass/Vol] 115 mg/dL NINF - 200 mg/dL [facility] Comment on above: Cholesterol Guidelines: <200 Desirable 200-240 Borderline >240 Undesirable Cholesterol in HDL [Mass/Vol] 49 mg/dL 40 - PINF mg/dL [facility] Comment on above: HDL Guidelines: <40 Undesirable 40-59 Borderline >59 Desirable Cholesterol in LDL [Mass/Vol] 32 mg/dL 0 - 130 mg/dL [facility] Comment on above: LDL Guidelines: <100 Desirable 100-129 Near to/above Desirable 130-159 Borderline >159 Undesirable Direct (measured) LDL and calculated LDL are not interchangeable tests. Cholesterol.total/Ch olesterol in HDL [Mass ratio] 2.3 {ratio} NINF - 5 [facility] Interpretation and review of laboratory results Abnormal [facility] Triglyceride [Mass/Vol] 171 mg/dL High NINF - 150 mg/dL [facility] Comment on above: Triglyceride Guidelines: <150 Desirable 150-199 Borderline 200-499 High >499 Very high Based on AHA Guidelines for fasting triglyceride, March 2012. [facility] Microalbumin, Uron 3 Albumin DL <= 20 mg/L (U) [Mass/Vol] 764 mg/L High NINF - 21 mg/L [facility] Albumin/Creatinine DL <= 20 mg/L (U) [Ratio] 178 High [facility] Creatinine (U) [Mass/Vol] 428.7 mg/dL High 28.0 - 217.0 mg/dL [facility] Interpretation and review of laboratory results Abnormal [facility] T4, Freeon 12-19-2022 Free T4 [Mass/Vol] 1.5 ng/dL 0.9 - 1.7 ng/dL [facility] TSH w/reflex to FT4on 2022 Thyroid Stim. Horm. 6.76 uIU/mL High 0.30-5.00 [facility] Comment on above: Performed By: #### C P, CDP, TSHX #### [facility] [address] [place], [place] [id number] Flame Degreaser: Gerson Barton MD #### URNMAB, FT4, GLYHGB, VD25, LIPR #### [facility] [address] [place] [address] Flame Degreaser: Asad Draper MD TSH with Reflexon 12-19-2022 Interpretation and review of laboratory results Abnormal [facility] TSH Qn 6.76 m[IU]/L High [facility] Vitamin D 25 Hydroxyon 12-19 25-hydroxyvitamin D3 [Mass/Vol] 59.0 ng/mL 29.9 - PINF ng/mL [facility] Comment on above: Reference Range: Vitamin D status Range Deficiency <20 ng/mL Mild Deficiency 20-30 ng/mL Sufficiency 30-100 ng/mL Toxicity >100 ng/mL [facility] XR CHEST (2 VW)Ordered By: Ventura Whitlock on 12-08-2020 No acute cardiopulmonary disease. [employer] Work Phone: EXAMINATION: TWO XRA Y VIEWS OF THE CHEST 12/06/2020 7:41 pm COMPARISON: July 19, 2017. HISTORY: ORDERING SYSTEM PROVIDED HISTORY: Mild intermittent asthma without complication TECHNOLOGIST PROVIDED HISTORY: ASTHMA FINDINGS: No lines or tubes. Normal cardiomediastinal silhouette. The lungs are clear without focal consolidation or pleural effusion. No suspicious pulmonary nodules. No pulmonary edema. No pneumothorax. No acute osseous abnormality. [employer] Work Phone: Kalpesh, [facility] Incoming Radiant Results From [employer] - 12/08/2020 8:26 PM EDT EXAMINATION: TWO [...] osseous abnormality. IMPRESSION: No acute cardiopulmonary disease. [facility] [employer] Work Phone: [facility] [employer] Work Phone: Discharge Summaryon 07-22-19 18 HIM IP Note OR Federal Appellate Clerk Normal [facility] CBCon 07-21-2017 Erythrocyte distribution width Auto Ratio (RBC) 12.9 % Normal 11.8-14.4 [facility] Comment on above: Performed By: #### David WOMACK LIPR ####[facility] [address] [place] [address] Erythrocytes (RBC) 0.0 per 100 WBC Normal 0.0 M [facility] Comment on above: Result Comment: [address] [address] Performed By: #### BECCA MYLES ####[facility] [address] [place] [address] Erythrocytes (RBC) 4.33 10*6/uL Normal 3.95-5.11 [facility] Comment on above: Performed By: #### BECCA MYLES ####[address] [address] Hematocrit (HCT) 38.1 % Normal 36.3-47.1 [facility] Comment on above: Performed By: #### VIRGEN MYLESR ####[facility] [address] [place] [address] Hemoglobin mass conc (Bld) 12.4 g/dL Normal 11.9-15.1 [facility] Comment on above: Performed By: #### VIRGEN MYLESR ####[facility] [address] [place] [address] MCH 28.6 pg Normal 25.2-33.5 [facility] Comment on above: Performed By: #### BECCA MYLES ####[facility] [address] [place] [address] MCHC mass conc (RBC) 32.5 g/dL Normal 28.4-34.8 [facility] Comment on above: Performed By: #### David WOMACK LIPR ####[facility] [address] [place] [id number] MCV 88.0 fL Normal 82.6-102.9 [facility] Comment on above: Performed By: #### VIRGEN MYLESR ####[facility] [address] [place] [id number] Platelet mean volume (PMV) 9.7 fL Normal 8.1-13.5 [facility] Comment on above: Performed By: #### VIRGEN MYLESR ####[address] [address] Platelets 198 10*3/uL Normal 138-453 [facility] Comment on above: Performed By: #### VIRGEN MYLESR ####[facility] [id number] [place] [id number] WBC (Leukocytes) 4.5 10*3/uL Normal 3.5-11.3 [facility] Comment on above: Performed By: #### VIRGEN MYLESR ####[address] [address] Comp Metabolic Pr/rfx MGon 0 - Potassium molar conc 3.5 mmol/L Low 3.7-5.3 [facility] Comment on above: Performed By: #### VIRGEN MYLESR ####[address] [id number] (cont.) Normal [facility] Comment on above: Result Comment: Aver age GFR for 40-49 years old: 99 mL/min/1.73sq mChronic Kidney Disease: <60 mL/min/1.73sq mKidney failure: <15 mL/min/1.73sq meGFR calculated using average adult body mass. Additional eGFR calculator available at:http://[email or web address].Workube/multiple_crcl_[email or web address] [address] Performed By: #### BECCA MYLES ####[facility] [address] [address] Alanine aminotransferase (ALT) 15 U/L Normal 5-33 [facility] Comment on above: Performed By: #### BECCA MYLES ####[facility] [address] [place] [address] Albumin 3.9 g/dL Normal 3.5-5.2 [facility] Comment on above: Performed By: #### BECCA MYLES ####[facility] [address] [place] [address] Albumin/Globulin Ratio 2.1 {ratio} Normal 1.0-2.5 [facility] Comment on above: Performed By: #### BECCA MYLES ####[facility] [address] [place] [address] Alkaline Phos 34 U/L Low 35-104 [facility] Comment on above: Performed By: #### BECCA MYLES ####[facility] [address] [place] [address] Anion gap 12 mmol/L Normal 9-17 [facility] Comment on above: Performed By: ###BECCA DICKSON ####[facility] [address] [place] [address] Aspartate aminotransferase (AST) 14 U/L Normal <32 [facility] Comment on above: Performed By: #### BECCA MYLES ####[id number] [place] [address] Bilirubin Ql (U) 1.02 mg/dL Normal 0.3-1.2 [facility] Comment on above: Performed By: #### T VU LIPR ####[address] [place] [address] Calcium 9.0 mg/dL Normal 8.6-10.4 [facility] Comment on above: Performed By: #### T VU LIPR ####[address] [address] Chloride 99 mmol/L Normal 98-107 [facility] Comment on above: Performed By: #### T VU LIPR ####[address] [address] CO2 24 mmol/L Normal 20-31 [facility] Comment on above: Performed By: #### T VU LIPR ####[address] [address] Creatinine 0.60 mg/dL Normal 0.50-0.90 [facility] Comment on above: Performed By: #### T VU LIPR ####[address] [place] [address] eGFR (non-black) mL/min/{1.73_m2} Normal >60 [facility] Comment on above: Performed By: #### T VU LIPR ####[facility] [address] [place] [address] Glucose mass conc 99 mg/dL Normal 70-99 [facility] Comment on above: Performed By: #### T VU, LIPR ####[address] [place] [address] Protein 5.8 g/dL Low 6.4-8.3 [facility] Comment on above: Performed By: #### T VU LIPR ####[address] [place] [address] Sodium 135 mmol/L Normal 135-144 [facility] Comment on above: Performed By: #### T VU LIPR ####[employer] [address] [place] [address] Urea nitrogen 21 mg/dL High 11-20 [facility] Comment on above: Performed By: #### T VU LIPR ####[address] [place] [address] BUN/CRE Ratio NOT REPORTED Normal 02-20 [facility] Comment on above: Performed By: #### David WOMACK LIPR ####[address] [place] [address] Staging: NOT REPORTED Normal [facility] Comment on above: Performed By: #### David WOMACK LIPR ####[address] [place] [address] Magnesiumon 07-21-2017 Magnesium 1.9 mg/dL Normal 1.6-2.6 [facility] Comment on above: Result Comment: [employer] [facility] [place], [place] [id number] ([phone] Performed By: #### VIRGEN MYLESR ####[address] [place] [address] Plan of Careon 07-21-2017 HIM IP Note OR Federal Appellate Clerk Normal [facility] HIM IP Note OR Federal Appellate Clerk Normal [facility] HIM IP Note OR Federal Appellate Clerk Normal [facility] Progress Noteon 07-21-2017 HIM IP Note OR Federal Appellate Clerk Normal [facility] HIM IP Note OR Federal Appellate Clerk Normal [facility] CARDIAC STRESS TESTon 2017 CARDIAC STRESS TEST [address] [place] [address] CARDIAC STRESS TESTPATIENT NAME: NADEEN AGUILA : 1965MED REC NO: [id number] ROOM: [address] [place] [address] NO: [id number] ADMIT DATE: 07/20/2017PROVIDER: Ang CraigARDIOLITE TREADMILL STRESS [...] issued from the department of Nuclear MedicineANG SUMAYAMID: 07/20/2017 15:47:34 /PGAYTANJob#: [id number] Doc#: UnknownPositive result faxed to the Unit Normal [facility] Consulton 07-20-2017 HIM IP Note OR Federal Appellate Clerk Normal [facility] History and Physicalon 07-20 HIM IP Note OR Federal Appellate Clerk Normal [facility] K (Potassium)on 07-20-2017 Potassium molar conc 3.9 mmol/L Normal 3.7-5.3 [facility] Comment on above: Result Comment: [employer] [address] [place], [place] [id number] ([phone] Performed By: #### T BECCA WOMACK ####[facility] [address] [place], [place] [id number] Lipid Profileon 07-20-2017 Cholesterol 162 mg/dL Normal <200 [facility] Comment on above: Result Comment: Chol esterol Guidelines: <200 Desirable 200-240 Borderline >240 Undesirable Performed By: #### David WOMACK LIPR ####[address] [place] [address] Cholesterol to HDL Ratio 3.4 {ratio} Normal <5 [facility] Comment on above: Performed By: #### David WOMACK LIPR ####[facility] CenterTextPayMeLucoubqykzaz[address] [place] [address] HDL Cholesterol 48 mg/dL Normal >40 [facility] Comment on above: Result Comment: HDL Guidelines: <40 Undesirable 40-59 Borderline >59 Desirable Performed By: #### VIRGEN MYLESR ####[facility] CenterTextPayMeYhsyyineoxdp[address] [place] [address] LDL Cholesterol 84 mg/dL Normal 0-130 [facility] Comment on above: Result Comment: LDL Guidelines: <100 Desirable 100-129 Near to/above Desirable 130-159 Borderline >159 UndesirableDirect (measured) LDL and calculated LDL are not interchangeable tests. Performed By: #### David WOMACK LIPR ####[facility] [address] [place] [address] Triglyceride 151 mg/dL High <150 [facility] Comment on above: Result Comment: Trig lyceride Guidelines: <150 Desirable 150- 199 Borderline 200-499 High >499 Very high Based on AHA Guidelines for fasting triglyceride, March 2012.[employer] [facility] [place] [address] Performed By: #### David WOMACK LIPR ####[address] [place] [address] Cholesterol in VLDL mass conc NOT REPORTED Normal -30 [facility] Comment on above: Performed By: #### David WOMACK LIPR ####[address] [place] [address] Magnesiumon 07-20-2017 Magnesium 1.8 mg/dL Normal 1.6-2.6 [facility] Comment on above: Result Comment: [employer] [address] [place], [place] [address] ([phone] Performed By: #### T BECCA WOMACK ####[facility] CenterTextPayMeRfrqeeawttag[address] [place] [address] NM MYOCARDIAL SPECT REST EXE RCISE OR [...] Issue October 2016High risk (>3% annual or IL)1. Severe resting LV dysfunction (LVEF >35%) not [...] e risk (1% to 3% annual or IL)1. Mild/moderate resting LV dysfunction (LVEF 35% to [...] coronarybed.Low Risk (Less than 1% annual or IL)1. Normal or small myocardial perfusion defect at rest or with stressencumbering less than 5% of the myocardium.Interpreted by:JENNI Montañoigned by:Giovanny Lan MD07/20/17inal result Normal [facility] Plan of Careon 07-20-2017 HIM IP Note OR Federal Appellate Clerk Normal [facility] HIM IP Note OR Federal Appellate Clerk Normal [facility] Procedureon 07-20-2017 HIM IP Note OR Federal Appellate Clerk Normal [facility] Progress Noteon 07-20-2017 HIM IP Note OR Federal Appellate Clerk Normal [facility] HIM IP Note OR Federal Appellate Clerk Normal [facility] TSH w/reflex to FT4on 2017 Thyroid stimulating hormone (TSH) 0.22 m[IU]/L Low 0.30-5.00 [facility] Comment on above: Result Comment: [facility] [employer] [address] [place] [address] Performed By: #### T SHX, FT4 ####[facility] [address] [place] [address] Thyroxine, Freeon 07-20-2017 Thyroxine, Free 1.52 ng/dL Normal 0.93-1.70 [facility] Comment on above: Result Comment: [facility] [employer] [address] [place] [address] Performed By: #### T SHX, FT4 ####[facility] [address] [place] [address] Troponinon 07-20-2017 Troponin I.cardiac mass conc Normal [facility] Comment on above: Result Comment: Refe rence Range: <0.03 Within reference range. 0.03-0.09 Possible myocardial damage.Repeat at appropriate intervals to rule out chronic elevation. >= 0.10 Indicative of myocardial damage.Patients with high levels of Biotin oral intake (i.e >5mg/day) may have falsely decreased Troponin T levels. Samples collected within 8 hours of biotin intake may require additional information for diagnosis.[employer] [address] [place] [address] Performed By: #### T BECCA WOMACK ####[facility] [address] [place] [address] Troponin T.cardiac mass conc ug/L Normal <0.03 [facility] Comment on above: Result Comment: Trop onin T results cannot be compared to Troponin-I results. Performed By: #### T BECCA WOMACK ####[facility] [address] [place] [id number] Vital Signs Date Time Vital Sign Value Performing Clinician Manuel zepeda 03-06-2024 09:16-0400 Body height 160 cm Jeanine Rine UROLOGY PHYSICIAN Work Phone: [facility] 03-06-2024 09:16-0400 Body mass index (BMI) [Ratio] 38.9 kg/m2 Jeanine Rine UROLOGY PHYSICIAN Work Phone: [facility] 03-06-2024 09:16-0400 Body temperature 98.01 [degF] Jeanine Rine UROLOGY PHYSICIAN Work Phone: [facility] 03-06-2024 09:16-0400 Body weight 99.61 kg Jeanine Rine UROLOGY PHYSICIAN Work Phone: [facility] 03-06-2024 09:16-0400 Diastolic blood pressure 60 mm[Hg] Jeanine Rine UROLOGY PHYSICIAN Work Phone: [facility] 03-06-2024 09:16-0400 Heart rate 71 /min Jeanine Rine UROLOGY PHYSICIAN Work Phone: [facility] 03-06-2024 09:16-0400 Respiratory rate 18 /min Jeanine Rine UROLOGY PHYSICIAN Work Phone: [facility] 03-06-2024 09:16-0400 SaO2% (BldA) [Mass fraction] 95 % Jeanine Rine UROLOGY PHYSICIAN Work Phone: [facility] 03-06-2024 09:16-0400 Systolic blood pressure 120 mm[Hg] Jeanine Rine UROLOGY PHYSICIAN Work Phone: [facility] Healthcare Encounters Encounter Date Encounter Type Care Provider Facility Start: 04-03-2024 End: 04-03-2024 Bamboo flowsboris DOCKERY Work Phone: [facility] Start: 04-03-2024 End: 04-03-2024 Bamboo flowsboris DOCKERY Work Phone: [facility] Start: 04-03-2024 End: 04-03-2024 Office outpatient visit 15 minutes Amalia Francis PA Work Phone: [facility] Comment on above: Seborrheic keratosis (Primary Dx); Melanocytic nevus of trunk; Inflamed seborrheic keratosis; Surgery, elective Start: 04-03-2024 End: 04-03-2024 ambulatory AMALIA FRANCIS Not Available Start: 03-27-2024 End: 03-27-2024 Refill Elizabeth Richey MA [facility] Comment on above: Type 2 diabetes rochelle itus without complication, without long- term current use of insulin (CMS/HCC) Start: 03-25-2024 End: 03-25-2024 Refill Jeanine Whitlock UROLOGY PHYSICIAN Work Phone: [facility] Comment on above: Environmental and se asonal allergies; Pure hypercholesterolemia (CMS/HCC) Start: 03-10-2024 End: 03-10-2024 Telephone encounter Jeanine Whitlock UROLOGY PHYSICIAN Work Phone: [facility] Comment on above: update on dexcom and blood sugars; New Medication ordered Start: 03-06-2024 End: 03-06-2024 Bamboo flowsheet Jenaine L Joselinee UROLOGY PHYSICIAN Work Phone: [facility] Start: 03-06-2024 End: 03-06-2024 Bamboo flowsheet Jeanine L Joselinee UROLOGY PHYSICIAN Work Phone: [facility] Start: 03-06-2024 End: 03-06-2024 ambulatory JEANINE L JOSELINEE Not Available Start: 03-06-2024 End: 03-06-2024 Patient encounter status Jeanine L Joselinee UROLOGY PHYSICIAN Work Phone: [facility] Work Phone: Start: 03-06-2024 End: 03-06-2024 Periodic preventive med est patient 40-64yrs Jeanine L Joselinee UROLOGY PHYSICIAN Work Phone: [facility] Comment on above: Type 2 diabetes rochelle itus without complication, without long- term current use of insulin (CMS/HCC) (Primary Dx); Wellness examination; Type 2 diabetes mellitus with hyperglycemia, with long-term current use of insulin ([facility]); Acute post-traumatic stress disorder ([facility]); ENRIQUE (generalized anxiety disorder) ([facility]); Severe single current episode of major depressive disorder, without psychotic features ([facility]); Acquired hypothyroidism ([facility]); Panic disorder with agoraphobia ([facility] Pure hypercholesterolemia ([facility] Primary hypertension ([facility]); Mild intermittent asthma without complication ([facility]); Immunization due; Hallux valgus (acquired), left foot; Degenerative cervical disc; Primary insomnia; Vitamin D deficiency; Hallux rigidus, left foot; Environmental and seasonal allergies; BMI 38.0-38.9,adult Start: 01-22-2024 End: 01-22-2024 ambulatory JEANINE WHITLOCK Not Available Start: 12-18-2023 End: 12-18-2023 ambulatory POLO DIAZ Not Available Start: 11-19-2023 End: 11-19-2023 ambulatory JEANINE WHITLOCK Not Available Start: 10-11-2023 End: 10-11-2023 ambulatory POLO DIAZ Not Available Start: 07-15-2023 End: 07-18-2023 ambulatory JEANINE WHITLOCK [facility] Start: 07-15-2023 End: 07-17-2023 Subsequent hospital visit by physician Ghada [facility] Dexa Scan Comment on above: Age-related osteopor osis without current pathological fracture Start: 05-24-2023 End: 05-24-2023 ambulatory JEANINE WHITLOCK Not Available Start: 05-10-2023 End: 05-11-2023 ambulatory TYLER RAMEY [facility] Start: 12-27-2022 End: 12-28-2022 ambulatory JEANINE L CHINYERE [facility] Start: 12-19-2022 End: 12-20-2022 ambulatory POLO DIAZ [facility] Start: 12-19-2022 End: 12-19-2022 Subsequent hospital visit by physician Jeanine Whitlock Work Phone: [facility] Start: 12-06-2020 End: 12-08-2020 Subsequent hospital visit by physician Maddie Sewell Dr Room 2 [facility] Comment on above: Mild intermittent as thma without complication Start: 07-20-2017 End: 07-22-2017 Evaluation and management of inpatient JEANINE L CHINYERE [facility] Procedures Date Procedure Procedure Detail Performing Clinician Start: 04-03-2024 End: 04-03-2024 DESTRUCTION OF LESION Amalia L Skylar DOCKERY Work Phone: Start: 04-03-2024 CRYOTHERAPY SKIN LESION Amalia DOCKERY Work Phone: Start: 07-15-2023 Dxa bone density thomas dy 1/> sites axial skel Tyler Ramey MD Work Phone: Start: 05-24-2023 Mammography Jeanine Chinyere UROLOGY PHYSICIAN Work Phone: Start: 12-19-2022 Comprehensive metabo lic panel Polo Escobedo [employer] - UROLOGY PHYSICIAN Work Phone: Start: 12-19-2022 Lipid panel Polo Hernandez yrbasilia [employer] - UROLOGY PHYSICIAN Work Phone: Start: 12-19-2022 Urine albumin quantitative Polo Escobedo [employer] - UROLOGY PHYSICIAN Work Phone: Start: 12-06-2020 Radiologic exam ches t 2 views Jeanine L Chinyere Work Phone: Start: 02-07-2018 Colonoscopy Jeanine Joselinee UROLOGY PHYSICIAN Work Phone: Start: 01-23-2018 Colonoscopy Jeanine Joselinee Work Phone: Start: 07-22-2017 TERMINATION CLERK REPORT JEANINE R INE Start: 07-22-2017 DISCHARGE PATIENT JEANINE JOSELINEE Start: [...] Start: 07-20-2017 IP CONSULT TO CARDIOLOGY JEANINE RINE Start: 07-20-2017 PLACE INTERMITTENT PNEUMATIC COMPRESSION DEVICE JEANINE RINE Start: 07-20-2017 PATIENT STATUS (DIRECT) JEANINE RINE Plan of Treatment Date Care Activity Detail Author Start: 02-08-2028 Screening for malignant neoplasm of colon [facility] Start: 01-24-2028 Screening for malignant neoplasm of colon [facility] Start: 02-13-2027 DTaP/Tdap/Td vaccine (3 - Td or Tdap) DTaP/Tdap/Td vaccine (3 - Td or Tdap) [facility] Start: 06-21-2025 Glaucoma screening Diabetes: Retinopathy Screening [facility] Start: 05-24-2025 Screening for malignant neoplasm of breast Breast cancer screen [facility] Start: 04-05-2025 End: 04-05-2025 Patient encounter procedure 04/05/2025 9:50 AM EST Office Visit [facility] [address] [place] [phone] Amalia Francis PA [address] [place] [address] [facility] Start: 11-05-2024 Urine screening for protein Diabetes: Urine Protein Screening [facility] Start: 06-05-2024 Hemoglobin A1c measurement Diabetes: Hemoglobin A1C [facility] Start: 05-24-2024 Screening for malignant neoplasm of breast Mammogram [facility] Start: 05-11-2024 End: 05-11-2024 Patient encounter procedure 05/11/2024 10:55 AM EST Office Visit [facility] [address] [place] [phone] Kera Mac, MAIA-ANGLE [address] [place] [address] [facility] Start: 04-06-2024 End: 03-06-2025 Hemoglobin A1c/Hemoglobin.total in Blood Hemoglobin A1c Lab Today Type 2 diabetes mellitus without complication, without long-term current use of insulin ([facility]) Expected: 04/06/2024 (Approximate), Expires: 03/06/2025 [facility] Work Phone: Comment on above: Expected: 04/06/2024 (Approximate), Expi res: 03/06/2025 Start: 04-03-2024 End: 04-03-2024 Patient encounter procedure [facility] Comment on above: Arrived Start: 02-02-2024 Influenza vaccination Influenza Vaccine (#1) [facility] Start: 12-20-2023 GFR test (Diabetes, CKD 3-4, OR last GFR 15-59) GFR test (Diabetes, CKD 3-4, OR last GFR 15-59) [facility] Start: 12-20-2023 Hemoglobin A1c measurement A1C test (Diabetic or Prediabetic) [facility] Start: 12-20-2023 Lipid panel Lipids [facility] Start: 12-20-2023 Urine screening for protein Diabetic Alb to Cr ratio (uACR) test [facility] Start: 01-01-2023 Influenza vaccination Flu vaccine (#1) [facility] Start: 02-01-2021 Influenza vaccination Flu vaccine (#1) [employer] Phone: Start: 12-02-2020 COVID-19 Vaccine (3 - Booster for Moderna series) COVID-19 Vaccine (3 - Booster for Moderna series) [facility] Start: 01-18-2020 Screening for malignant neoplasm of breast Breast cancer screen [facility] Start: 07-23-2018 Creatinine measurement [facility] Start: 07-23-2018 GFR test (Diabetes, CKD 3-4, OR last GFR 15-59) GFR test (Diabetes, CKD 3-4, OR last GFR 15-59) [facility] Start: 07-23-2018 Potassium monitoring Potassium monitoring [employer] Phone: Start: 07-20-2018 Lipid panel [facility] [employer] Start: 07-01-2018 Pneumococcal 0-64 years Vaccine (2 - PPSV23 if available, else PCV20) Pneumococcal 0-64 years Vaccine (2 - PPSV23 if available, else PCV20) [facility] [employer] Start: 07-01-2018 Pneumococcal 0-64 years Vaccine (2 - PPSV23 or PCV20) Pneumococcal 0-64 years Vaccine (2 - PPSV23 or PCV20) [facility] [employer] Start: 2017 Shingles Vaccine (1 of 2) Shingles Vaccine (1 of 2) [facility] [employer] Start: 2012 Screening for malignant neoplasm of colon [facility] [employer] Start: 06-15-2012 Hemoglobin A1c measurement A1C test (Diabetic or Prediabetic) [facility] [employer] Start: 1997 Screening for malignant neoplasm of cervix [facility] [employer] Start: 1988 Screening for malignant neoplasm of cervix [facility] [employer] Start: 1986 Hepatitis B vaccine (1 of 3 - Risk 3-dose series) Hepatitis B vaccine (1 of 3 - Risk 3-dose series) [facility] [employer] Start: 1985 Diabetic microalbuminuria test Diabetic microalbuminuria test [facility] Start: 1985 Glaucoma screening Diabetic retinal exam [facility] [employer] Start: 1985 Hepatitis C screening Hepatitis C screen [facility] [employer] Start: 1985 Urine screening for protein Diabetic Alb to Cr ratio (uACR) test [facility] [employer] Start: 1982 HIV screening HIV screen [facility] [employer] Start: 1979 Depression Monitoring Depression Monitoring [facility] [employer] Start: 1977 Diabetic foot examination Diabetic foot exam [facility] [employer] Start: 1977 Diabetic retinal exam Diabetic retinal exam [facility]: Start: 1973 Pneumococcal 0-64 years Vaccine (1 of 2 - PPSV23) Pneumococcal 0-64 years Vaccine (1 of 2 - PPSV23) [facility] [employer] Phone: Start: 01-23-1968 COVID-19 Vaccine (#1) COVID-19 Vaccine (#1) [facility] [employer] Start: 1967 Hepatitis B vaccine (1 of 3 - 3-dose series) Hepatitis B vaccine (1 of 3 - 3-dose series) [facility] [employer] Start: 1967 Hepatitis C screening Hepatitis C screen [facility] [employer] Phone: Start: 1967 Screening for malignant neoplasm of colon [facility] End: 12-19-2022 Hemoglobin A1c/Hemoglobin.total in Blood [facility] Work Phone: Comment on above: Once for 1 Occurrences starting 12/20/19 until 12/19/2022 Immunizations Immunization Date Immunization Notes Care Provider Nicolasa rivera 03-06-2024 influenza, injectabl e, quadrivalent, preservative free Jeanine Rine UROLOGY PHYSICIAN Work Phone: [facility] 05-10-2023 influenza, injectabl e, quadrivalent, preservative free Jeanine Rine UROLOGY PHYSICIAN Work Phone: [facility] 05-10-2023 influenza virus vacc ine, unspecified formulation Jeanine Rine UROLOGY PHYSICIAN Work Phone: [facility] 04-13-2022 influenza, injectabl e, quadrivalent, preservative free Jeanine Rine UROLOGY PHYSICIAN Work Phone: [facility] 06-09-2021 zoster vaccine recombinant Jeanine Rine UROLOGY PHYSICIAN Work Phone: [facility] 03-10-2021 influenza, injectabl e, quadrivalent, preservative free Jeanine Rine UROLOGY PHYSICIAN Work Phone: [facility] 03-10-2021 zoster vaccine recombinant Jeanine Rine UROLOGY PHYSICIAN Work Phone: [facility] 03-04-2020 influenza, injectabl e, quadrivalent, preservative free Jeanine Rine UROLOGY PHYSICIAN Work Phone: [facility] 05-06-2018 pneumococcal conjuga te vaccine, 13 valent Jeanine Rine UROLOGY PHYSICIAN Work Phone: [facility] 04-03-2017 influenza, injectabl e, quadrivalent, preservative free Jeanine Rine UROLOGY PHYSICIAN Work Phone: [facility] 02-13-2017 tetanus toxoid, redu shelby diphtheria toxoid, and acellular pertussis vaccine, adsorbed Jeanine Rine UROLOGY PHYSICIAN Work Phone: [facility] [facility] hepatitis B vaccine, adult dosage Jeanine Rine UROLOGY PHYSICIAN Work Phone: [facility] 07-10-2003 hepatitis B vaccine, adult dosage Jeanine Rine UROLOGY PHYSICIAN Work Phone: [facility] 12-12-1995 hepatitis B vaccine, adult dosage Jeaninedenise Whitlock UROLOGY PHYSICIAN Work Phone: [facility] 09-19-1995 hepatitis B vaccine, adult dosage Jeanine Joselinee UROLOGY PHYSICIAN Work Phone: [facility] Healthcare Payers Date Payer Category Payer Managed Care HMO (unspecified) [id number] 2023 Private Health Insurance [id number] 2019 Unknown [id number] 2014 Unknown [id number] 1965 Unknown [id number] [id number] 1965 Unknown [id number] 2.16.840.1.201958.3.579.2.173 1967 Unknown [id number] 2.16.840.1.871000.3.579.2.173 1967 Unknown [id number] 2.16.840.1.498303.3.579.2.174 1967 Unknown [id number] 2.16.840.1.654653.3.579.2.1259 1967 Unknown [id number] 2.16.840.1.266324.3.579.2.1259 1967 Unknown [id number] 2.16.840.1.265367.3.579.2.9 1967 Unknown [id number] 2.16.840.1.011386.3.579.2.1259 1967 Unknown [id number] 2.16.840.1.514039.3.579.2.1259 1967 Unknown [id number] 2.16.840.1.061178.3.579.2.1259 1967 Unknown [id number] 2.16.840 .1.274486.3.579.2.1259 1967 Unknown [id number] 2.16.840 .[id number] Social History Date Type Detail Facility Start: 01-23-2018 End: 12-19-2022 Tobacco smoking status PRIS Never smoker [facility] [employer] Start: 01-23-2018 End: 12-19-2022 Tobacco use and exposure Never used [employer] Start: 01-23-2018 Alcohol intake Current non-drinker of alcohol (finding) [employer] Phone: Start: 1965 Sex Assigned At Not on file [employer] Phone: Start: 01-25-2019 End: 01-22-2024 History of Social function [facility] Start: 01-25-2019 End: 01-22-2024 Tobacco use panel [facility] Start: 01-22-2024 End: 04-03-2024 Alcoholic beverage intake Current drinker of alcohol (finding) [facility] How often do you nee d to have someone help you when you read instructions, pamphlets, or other written material from your doctor or pharmacy [SILS] Never [facility] Do you belong to any clubs or organizations such as baptist groups, unions, fraternal or athletic groups, or [...] time - these days [OSQ] Very much [facility] (I/We) worried wheth er (my/our) food would run out before (I/we) got money to buy more. Never true [facility] In the past 12 month s, was there a time when you were not able to pay the mortgage or rent on time? No [facility] Start: 1965 Sex assigned at Female [facility] Start: 08-15-2022 Gender identity Identifies as female gender (finding) [facility] Medical Equipment Procedure Code Equipment Code Equipment Origin al Text Equipment Identifier Dates [id number], [id number] Start: 11-19-2023 Clinical Notes 03-06-2024 to 04-03-2024 NAHED Mcnally - 04/03/2024 11:30 AM EDTTelephone Encounter - Elizabeth Richey MA - 03/27/2024 12:23 PM EDTTelephone Encounter - Elizabeth Richey MA - 03/27/2024 12:23 PM EDTPatient Instructions Note Date & Type Note Facility 04-03-2024 History of Presen t illness Narrative Skin Check Location: Patient requests a full body skin examination Dermatologic history: no history of skin cancer, no history of atypical moles Last visit: 06/2022 Established patient Lesions: Location: neck Duration: months Quality: denies pain, denies itch, denies bleeding Modifying factors: aggravated by picking Associated symptoms: enlarged Treatments: none All pertinent medical history, medications, and allergies were reviewed. General Exam: alert, oriented to person, place, and time, normal affect, well appearing Unaccompanied Scalp, Examined Right leg Examined Head, Face Examined Left leg Examined Neck Examined Right foot Examined Chest Examined Left foot Examined Back Examined Buttocks Examined Abdomen Examined Digits,nails: Examined Right arm Examined Left arm Examined Lymphatics: Not examined Hands Examined 1. Seborrheic keratosis Stuck on verrucous, variably pigmented papules and plaques. Patient was counseled regarding these benign growths. Removal is normally not necessary, but they may be removed if they are symptomatic or for cosmetic reasons. 2. Melanocytic nevus of trunk Scattered benign appearing, regular brown to light brown melanocytic papules and macules with similar morphology Counseled regarding these benign growths. Rarely, a nevus can develop into malignant melanoma, so any changing nevi should be promptly re-evaluated. 3. Inflamed seborrheic keratosis (7) Left Anterior Mandible, Left Parotid Area, Left Posterior Mandible, Right Buccal Cheek, Right Lower Leg - Anterior, Right Parotid Area, Right Posterior Mandible Inflamed seborrheic keratoses: pink and brown stuck on verrucous scaly papule with surrounding erythema and bloody crust. The patient was informed that symptomatic seborrheic keratoses are benign growths that become inflamed, itchy, tender, traumatized, caught on clothing, or bleed. Symptomatic lesions can be treated with cryotherapy or curretage. Thicker lesions treated with cryotherapy may require more than one treatment. The patient was instructed to notify the office if abnormal redness or tenderness develops at the treatment site. Cryotherapy today, see procedure note. Diagnosis: Inflamed seborrheic keratosis Indication: Inflamed Consent: Verbal consent was obtained and risks were discussed, including, but not limited to risks of scarring, darker or regional trainer pigmentary changes, recurrence, incomplete removal and infection. Method: Liquid nitrogen was used to treat the lesion(s) with two 5-10 second freeze-thaw cycles Number of lesions treated: 7 Post-procedure instructions: Instructions were given orally and in writing. The office will be contacted if the lesion fails to resolve despite treatment, or if a side effect develops such as abnormal crusting, scabbing, redness or tenderness Cryotherapy, skin lesion - Left Anterior Mandible, Left Parotid Area, Left Posterior Mandible, Right Buccal Cheek, Right Lower Leg - Anterior, Right Parotid Area, Right Posterior Mandible 4. Surgery, elective Left Inframammary Fold Fleshy, skin-colored sessile and pedunculated papules. (Acrochordons). Patient counseled on condition. Informed patient that removal is considered cosmetic and subject to a cosmetic fee. Patient verbalized understanding. Patient quoted $60 for treatment of 3 skin tags. Cosmetic waiver completed and fee due at end of visit today. Destr of lesion - Left Inframammary Fold Destruction method comment: Snip removal Anesthesia: the lesion was anesthetized in a standard fashion Anesthetic: 1% lidocaine w/ epinephrine 1-100,000 buffered w/ 8.4% NaHCO3 Hemostasis achieved with: electrodesiccation Outcome: patient tolerated procedure well with no complications Related Procedures Destr of lesion Complexity comment: Snip excision Informed consent: discussed and consent obtained Hemostasis achieved with: electrodesiccation Next Visit: 1 year documented in this encounter [facility] 03-27-2024 Telephone encount er Note Pharmacy requesting new RX for losartan for pt. [facility] 03-27-2024 Miscellaneous Notes Formattin g of this note might be different from the original. Pharmacy requesting new RX for losartan for pt. documented in this encounter [facility] 03-10-2024 Telephone encount er Note noted [facility] 03-10-2024 Miscellaneous Notes Formattin g of this [...] do about this. documented in this encounter [facility] 03-10-2024 Telephone encount er Note Spoke with Mariella and notified her and she reports she has taken the Ozempic previously however after her sugars got better her insurance stopped paying for it. Answered the PA questions online and attached progress notes and A1C. [facility] 03-10-2024 Telephone encount er Note Please let mariella know that jeanine sent ozempic once weekly to the local pharmacy for her. This triggered a PA so we will need to see what that looks like. Call if any issues swallowing or abd pain. Beware of constipation. Call if questions. Continue jardiance and metformin. [facility] 03-10-2024 Telephone encount er Note She has been wearing the dexcom and her average sugars are running 196. Patient states that she has been eating better, but the alarm that her sugar is high will still go off. She is not sure what more she should do about this. [facility] 03-06-2024 History of Presen t illness Narrative [...] EVERY MORNING WITH FOOD Continuous Glucose Sensor (2can G7 Sensor) misc 1 Units, Does not [...] without long-term current use of insulin (CMS/HCC) Comments: trial cgm, dexcom 7 sample placed [...] mo aic prior. documented in this encounter [facility] 03-06-2024 Instructions Jeanine Whitlock NP - [...] protein before carbs documented in this encounter [facility] Evaluation note Diagnosis Mild intermittent asthma without complication Unspecified asthma documented in this encounter [employer] Phone: evaluation note* Diagnosis Age-related osteoporosis without current pathological fracture Senile osteoporosis [facility] Diagnosis Type 2 diabetes mellitus without complication, without long-term current use of insulin ([facility])- Primary Wellness examination Type 2 diabetes mellitus with hyperglycemia, with long-term current use of insulin ([facility]) Acute post-traumatic stress disorder ([facility]) ENRIQUE (generalized anxiety disorder) ([facility]) Generalized anxiety disorder Severe single current episode of major depressive disorder, without psychotic features ([facility]) Acquired hypothyroidism ([facility]/HCC) Unspecified hypothyroidism Panic disorder with agoraphobia ([facility]) Agoraphobia with panic disorder Pure hypercholesterolemia ([facility]) Pure hypercholesterolemia Primary hypertension ([facility]) Unspecified essential hypertension Mild intermittent asthma without complication ([facility]) Immunization due Hallux valgus (acquired), left foot Degenerative cervical disc Primary insomnia Persistent disorder of initiating or maintaining sleep Vitamin D deficiency Hallux rigidus, left foot Environmental and seasonal allergies BMI 38.0-38.9,adult documented in this encounter [facility]* Diagnosis Type 2 diabetes mellitus with hyperglycemia, with long-term current use of insulin (CMS/HCC)- Primary [facility] Environmental and seasonal allergies Pure hypercholesterolemia (CMS/HCC) Pure hypercholesterolemia [facility] Diagnosis Type 2 diabetes mellitus without complication, without long-term current use of insulin (CMS/HCC) [facility] Diagnosis Seborrheic keratosis- Primary Melanocytic nevus of trunk Benign neoplasm of skin of trunk, except scrotum Inflamed seborrheic keratosis Surgery, elective Unspecified elective surgery for purposes other than remedying health states documented in this encounter [facility] Healthcare Summary Purpose Family History No Family History Records FoundNo Family History Records FoundNo Family History Records FoundNo Family History Records Found Advance Directives No Advanced Directives Records FoundDocuments on File Type Date Recorded Patient Injection Press Operator Expl anation ACP-Advance Directive ACP-Power of Community Chest Officer Latest Code Status on File Code Status [...] BONE DENSITY AXIAL SKELETON Tyler Ramey MD [address] [place], [place] [id number] Referral ID Status Reason Start Date Expiration Date V isits Requested Visits Authorized [id number] Pending Review 05/24/2023 05/23/2024 1 1 Specialty Diagnoses / Procedures Referred By Contac t Referred To Contact Diagnoses Type 2 diabetes mellitus without complication, without long-term current use of insulin ([facility]) Jeanine Whitlock, UROLOGY PHYSICIAN [address] [place] [address] Referral ID Status Reason Start Date Expiration Date Visits Re quested Visits Authorized [id number] Closed 1 1 Specialty Diagnoses / Procedures Referred By Brigid t Referred To Contact Diagnoses Type 2 diabetes mellitus with hyperglycemia, with long-term current use of insulin ([facility]) Jeanine Whitlock NP [address] [place] [id number] Referral ID Status Reason Start Date Expiration Date V isits Requested Visits Authorized [id number] Authorized 03/10/2024 03/10/2027 1 1 Additional Source Comments INFORMATION SOURCE (unrecogn ized section and content) DATE CREATED AUTHOR 11/22/2017 [facility] DATE CREATED AUTHOR AUTHOR'S ORGANIZ ATION 05/15/2023 [facility] DATE CREATED AUTHOR AUTHOR'S ORGANIZ ATION 07/18/2023 [facility] DATE CREATED AUTHOR AUTHOR'S ORGANIZ ATION 04/05/2024 [facility] [employer]IC Care Teams (unrecognized sec tion and content) 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 Relationship Specialty Start Date End Date Jeanine Whitlock [address] [place] [id number] PCP - General 04/16/16 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 Relationship Specialty Start Date End Date Jeanine Whitlock [address] [place] [id number] PCP - General 04/16/16 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 Relationship Specialty Start Date End Date Jose Putnam DO [address] [place] [phone] PCP - General Family Medicine 11/09/22 Jeanine Whitlock UROLOGY PHYSICIAN [address] [place] [id number] Nurse Practitioner Family Medicine 11/09/22 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 Relationship Specialty Start Date End Date Jose Putnam DO [address] [place] [address] PCP - General Family Medicine 11/09/22 Jeanine Whitlock, UROLOGY PHYSICIAN [address] [place] [address] Nurse Practitioner Family Medicine 11/09/22 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 Relationship Specialty Start Date End Date Jose Putnam DO [address] [place] [address] PCP - General Family Medicine 11/09/22 Jeanine Whitlock, UROLOGY PHYSICIAN [address] [place] [address] Nurse Practitioner Family Medicine 11/09/22 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 Relationship Specialty Start Date End Date Jose Putnam DO [address] [place] [address] PCP - General Family Medicine 11/09/22 Jeanine Whitlock, UROLOGY PHYSICIAN [address] [place] [address] Nurse Practitioner Family Medicine 11/09/22 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 Relationship Specialty Start Date End Date Jose Putnam DO [address] [place] [address] PCP - General Family Medicine 11/09/22 Jeanine Whitlock, UROLOGY PHYSICIAN [address] [place] [address] Nurse Practitioner Family Medicine 11/09/22 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 Relationship Specialty Start Date End Date Jose Putnam DO [address] [place] [phone] PCP - General Family Medicine 11/09/22 Jeanine Whitlock NP [address] [place] [address] [id number] Nurse Practitioner Family Medicine 11/09/22 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 Relationship Specialty Start Date End Date Jose Putnam DO [address] [place], [place] [phone] PCP - General Family Medicine 11/09/22 Jeanine Whitlock NP [address] [place] [address] [phone] Nurse Practitioner Family Medicine 11/09/22 Reason for Visit (unrecogniz ed section and content) Specialty Diagnoses / Procedures Referred By Contac t Referred To Contact Radiology Diagnoses Age-related osteoporosis without current pathological fracture Procedures DEXA BONE DENSITY 2 SITES DEXA BONE DENSITY AXIAL SKELETON Tyler Ramey MD [address] [place] [address] Referral ID Status Reason Start Date Expiration Date V isits Requested Visits Authorized [id number] Pending Review 05/24/2023 05/23/2024 1 1 Reason Comments Annual Exam Reason Onset Date Comments update on dexcom and blood sugars 03/10/2024 New Medication ordered 03/10/2024 Reason Comments Med Refill Reason Onset Date Comments Med Refill 03/27/2024 Reason Comments Skin Check FOR RECORDS PERTAINING TO PATIENTS WHO ARE [...] BE BASED ON THE PRIMARY CLINICAL RECORDS. [facility]. provides no warranty or guarantee of the accuracy or completeness of information in this document.
[2024-04-07 06:35] LABS: Basophils Absolute Auto 0.1 10^3/uL (0.0-0.1); Eosinophils Absolute Auto 0.1 10^3/uL (0.0-0.7); Eosinophils Percent Auto 1.2 % (0.9-7.0); Hematocrit 41.9 % (36.0-48.0); Hemoglobin 14.2 g/dL (12.0-16.0); Immature Granulocytes Abs Auto 0.02 10^3/uL (0.00-0.03); Immature Granulocytes Pct Auto 0.3 % (0.0-0.5); Lymphocytes Absolute Auto 1.6 10^3/uL (1.2-3.8); Lymphocytes Percent Auto 27.5 % (20.5-60.0); Mean Corpuscular HGB Conc 33.9 g/dL (29.9-35.2); Mean Corpuscular Hemoglobin 29.2 pg (26.7-34.0); Mean Platelet Volume 9.6 fL (9.5-13.5); Monocytes Absolute Auto 0.5 10^3/uL (0.3-0.8); Neutrophils Absolute Auto 3.6 10^3/uL (1.4-6.5); Platelet Count 290 10^3/uL (150-450); Red Blood Count 4.87 10^6/uL (4.20-5.40); Red Cell Distribution Width 13.5 % (11.0-15.0); White Blood Count 5.9 10^3/uL (4.0-11.0)
[2024-04-07 06:54] LABS: Glucometer 176 mg/dL (74-106)
[2024-04-07] MEDS: LACTATED RINGER'S SOLUTION 1,000 ML 50 ML IV (07:07)
[2024-04-07] MEDS: CEFAZOLIN SODIUM 2 GM/50 ML D5W PREMIX IV (07:46)
[2024-04-07] MEDS: LIDOCAINE HCL 1% 100 MG/10 ML MDV INJ (08:22)
--- NOTE | 2024-04-07 08:54 | XR_ITS ---
[address] [address] Patient Name: AISHWARYA DUNN MRN: [id number] date: 1965 Sex: F Assigned Patient [facility]: [facility] Current Patient Location: [place] Accession/Order Number: [id number] Exam Date: 04/07/2024 09:51 Report Date: 04/08/2024 11:33 At the request of: ANA SCHUSTER Procedure: XR foot RT min 3V PROCEDURE: XR foot RT min 3V COMPARISON: 12/06/2023 HISTORY: hallux valgus FINDINGS: BONES:Fusion of the first metatarsal-phalangeal joint with shave osteotomy medial head of the first metatarsal. No mechanical failure. SOFT TISSUES:Negative. No visible soft tissue swelling. EFFUSION:None visible. OTHER: Negative. XR/XR foot RT min 3V IMPRESSION: First metatarsal-phalangeal joint fusion Electronically authenticated by: CRYSTAL SAM Date: 04/08/2024 11:33
--- NOTE | 2024-04-07 08:56 | P.ORON_ITS ---
Brief Operative Note Date of procedure: 04/07/24 Pre-op diagnosis general: Right hallux valgus Post-op diagnosis: same as pre-op Procedure: Procedure performed: Right first metatarsal phalangeal joint fusion with application of short leg splint Indications for procedure: Patient is a 58-year-old female with controlled type 2 diabetes who previously underwent left first metatarsal phalangeal joint fusion and was very happy with her outcome. She has a similar issue on her right foot which did not respond to shoe or activity modification or NSAIDs including meloxicam. She wished to undergo the above procedures and she was educated on potential risks and benefits. Intraoperative findings: Great toe is in a valgus position with reduced range of motion. Significant amount of acute and chronic synovitis surrounding the first MPJ. Full-thickness cartilage erosion most notable on the lateral aspect of the first metatarsal head. Periarticular osteophytes are also noted. Bone quality was somewhat soft and consistent with osteopenia Procedure in detail: Patient was identified preoperative holding by myself which time correct side and site were marked and consent was obtained. Preoperative antibiotics were started and patient was brought back to the operating theater placed on table in supine position with a thigh tourniquet. General anesthesia was administered and the right lower extremities prepped draped in usual sterile fashion. 10 cc of 1% lidocaine plain were used as preoperative local anesthesia and was injected as a standard first ray block. Formal timeout was performed. Patient was identified in pre op and consent was reviewed. Correct side and site were identified and marked. Pre-op antibiotics were started. Patient was brought to OR suite and place on table in a supine position. General anesthesia was administered. Calf tourniquet applied. Operative extremity was prepped and draped in usual sterile fashion. Formal time-out was performed and the foot/ankle were exsanguinated and tourniquet inflated. Incision created over dorsal aspect of the 1st MPJ. Bleeders coagulated. EHL protected throughout the procedure. Capsulotomy performed and McGlammry elevator inserted into 1st MPJ. Guide Pin place in 1st metatarsal head. Conical reamers used on 1st metatarsal head to remove cartilage and subchondral bone. Guide pin removed. Conical reamers used on proximal phalanx in a similar manner. 2.0 mm drill used to on each side of the joint. The site was irrigated. 1 cc of bone allograft was packed into the fusion site and the toe was pinned through a stab incision placed on the medial aspect in a rectus position. Position and wire placement were checked under fluoroscopy. A 3.[address] over the fusion site and temporarily fixed. Then photogrammetry airplane pilot holes were drilled for locking 3.5 mm screws which were measured and placed according to the manufactor's standard directions. Again position was checked under fluoroscopy as well as on the table. Temporary fixation was removed and additional screws were placed. Good bony apposition and position were noted on fluoroscopy. A 3.5 mm cannulated screw was placed over the guidewire accordingly. Any remaining bony prominence on the medial aspect of the first metatarsal head was removed with a sagittal saw and contoured appropriately. Surgical site was irrigated with copious saline. The incision was then closed in layers and the tourniquet was deflated with a prompt hyperemic response. A dry sterile dressing consisting of Xeroform on the incisions followed by 4 x 4 gauze, ABDs, and Kerlix were applied. Multiple layers of cast padding were then applied to ensure all bony prominences were well-padded. A plaster posterior splint was then applied which was held in place by Osvaldo wraps. Capillary refill time to all digits was evaluated and had appropriate response. Postoperative plan: Patient will be admitted for observation under the hospitalist who was notified Orders for perioperative antibiotics, DVT prophylaxis and multimodal pain medicine was ordered Nonweightbearing right foot -physical therapy consulted Prescriptions were sent to her pharmacy using my office EMR and will be ready by time of discharge Implants: [employer] Anesthesia: General-LMA Surgeon: Josiah Sanon Estimated blood loss (mL): 10 Pathology: none sent Condition: stable Disposition: PACU
[2024-04-07] MEDS: BUPIVACAINE HCL 0.5% PF 50 MG/10 ML VIAL 20 ML INJ (09:12)
[2024-04-07] MEDS: 0.9 % SODIUM CHLORIDE 500 ML 50 ML IV (09:30)
[2024-04-07 09:49] LABS: Glucometer 182 mg/dL (74-106)
[2024-04-07] MEDS: PREGABALIN 75 MG CAPSULE PO ×2 (13:19→22:16)
[2024-04-07] MEDS: CHOLECALCIFEROL (VITAMIN D3) 125 MCG/5,000 UNIT TABLET PO (13:19)
[2024-04-07] MEDS: ACETAMINOPHEN 500 MG TABLET 1000 MG PO ×3 (13:19→23:54)
--- NOTE | 2024-04-07 14:21 | PM.HP ---
HPI H&P: HPI History of Present Illness Chief complaint: hallux valgus right foot Narrative: 58-year-old female with hx of hypothyroidism, T2 DM, HTN underwent right first metatarsal phalangeal joint fusion for right foot/toe pain that did not respond to conservative treatments. Hospitalist team consulted for management of her chronic medical conditions. She is doing well. Denies post op pain. She has no active complaints to offer. Post op right pain has post op dressing. She had similar surgery on her left side and knows well what to expect. She has no questions or concerns. Opioid HPI Opioid Management Most Recent Pain and Opioid Data: Last Pain Scale 4 01/17/24 11:49 01/17/24 Last Pain Assessment 04/07/24 13:00 Last MAR Pain Assessment 04/07/24 13:19 Review of Systems ROS Status of ROS 10 or more systems reviewed and unremarkable except as noted in history and below [facility] Medical History Toe deformity ?M20.60 - Acquired deformities of toe(s), unspecified, unspecified foot (ICD-10) Arthritis ?M19.90 - Unspecified osteoarthritis, unspecified site (ICD-10) PTSD (post-traumatic stress disorder) ?F43.10 - Post-traumatic stress disorder, unspecified (ICD-10) Depression ?F32.A - Depression, unspecified (ICD-10) Panic attacks ?F41.0 - Panic disorder [episodic paroxysmal anxiety] (ICD-10) Anxiety ?F41.9 - Anxiety disorder, unspecified (ICD-10) COVID-19 ?U07.1 - COVID-19 (ICD-10) Migraine ?G43.909 - Migraine, unspecified, not intractable, without status migrainosus (ICD-10) Extremity edema ?R60.0 - Localized edema (ICD-10) Menopause ?Z78.0 - Asymptomatic menopausal state (ICD-10) Neuropathy, cervical (radicular) ?M54.12 - Radiculopathy, cervical region (ICD-10) Hypothyroid ?E03.9 - Hypothyroidism, unspecified (ICD-10) Hypertension ?I10 - Essential (primary) hypertension (ICD-10) Asthma ?J45.909 - Unspecified asthma, uncomplicated (ICD-10) Diabetes ?E11.9 - Type 2 diabetes mellitus without complications (ICD-10) Foot pain ?M79.673 - Pain in unspecified foot (ICD-10) Hallux rigidus ?M20.20 - Hallux rigidus, unspecified foot (ICD-10) Hallux valgus ?M20.10 - Hallux valgus (acquired), unspecified foot (ICD-10) Surgical History H/O foot surgery (01/16/24) ?Z98.890 - Other specified postprocedural states (ICD-10) History of colonoscopy ?Z98.890 - Other specified postprocedural states (ICD-10) History of cardiac catheterization ?Z98.890 - Other specified postprocedural states (ICD-10) H/O cervical spine surgery ?Z98.890 - Other specified postprocedural states (ICD-10) History of cardiac catheterization ?Z98.890 - Other specified postprocedural states (ICD-10) H/O section ?Z98.891 - History of uterine scar from previous surgery (ICD-10) Hx of tonsillectomy ?Z90.89 - Acquired absence of other organs (ICD-10) Family History Other Family history of diabetes mellitus Family history of hypertension Family history of myocardial infarction Family history of stroke Social History Within the past year, how often did you have a drink containing alcohol: monthly or less Smoking status: Never smoker Second hand tobacco smoke exposure: Yes Non-prescribed substance use: denies use 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 Highest level of school completed/degree received: Master's degree Meds Home Medications and Allergies Home Medications ?Medication ?Instructions ?Recorded ?Confirmed ?Type alprazolam 0.25 mg tablet 0.25 mg PO TID PRN anxiety 01/10/24 04/07/24 History aripiprazole 5 mg tablet 5 mg PO DAILY 01/10/24 03/30/24 History ascorbic acid (vitamin C) 1,000 mg 1 g PO DAILY 01/10/24 04/07/24 History capsule aspirin 81 mg tablet,delayed 81 mg PO DAILY 01/10/24 04/07/24 History release (Adult Aspirin Regimen) bisoprolol fumarate 10 mg tablet 10 mg PO DAILY 01/10/24 04/07/24 History calcium carbonate 500 mg PO DAILY 01/10/24 04/07/24 History chlorthalidone 50 mg tablet 50 mg PO DAILY 01/10/24 04/07/24 History duloxetine 60 mg capsule,delayed 120 mg PO DAILY 01/10/24 04/07/24 History release empagliflozin 10 mg tablet 10 mg PO DAILY 01/10/24 04/07/24 History (Jardiance) meloxicam 15 mg tablet 15 mg PO DAILY 01/10/24 04/07/24 History metformin 500 mg tablet,extended 1,000 mg PO BID 01/10/24 03/30/24 History release 24 hr montelukast 10 mg tablet 10 mg PO DAILY 01/10/24 04/07/24 History multivitamin (Daily Multi-Vitamin 1 tab PO DAILY 01/10/24 04/07/24 History tablet) trazodone 150 mg tablet 75 mg PO QPM PRN insomnia 01/10/24 04/07/24 History vitamin B complex (Complex B-100 1 tab PO DAILY 01/10/24 04/07/24 History tablet,extended release) levothyroxine 100 mcg tablet 100 mcg PO DAILY 01/16/24 04/07/24 History (Synthroid) amlodipine 5 mg tablet 5 mg PO DAILY 03/30/24 04/07/24 History escitalopram oxalate 10 mg tablet 10 mg PO QPM 03/30/24 04/07/24 History losartan 50 mg tablet 50 mg PO DAILY 03/30/24 04/07/24 History semaglutide 0.25 mg or 0.5 mg (2 0.25 mg subcut QWEEK 03/30/24 04/07/24 History mg/3 mL) subcutaneous pen injector (Ozempic) Allergies Allergy/AdvReac Type Severity Reaction Status Date / Time Iodinated Contrast Media Allergy Rash Verified 03/30/24 12:58 shellfish derived Allergy Rash Verified 03/30/24 12:58 lisinopril AdvReac Cough Verified 03/30/24 12:58 Exam Constitutional Vital Signs, click to edit/add: Last Vital Signs Temp 98.0 F 04/07/24 10:39 Pulse 83 04/07/24 10:39 Resp 18 04/07/24 10:39 BP 125/79 04/07/24 10:39 Pulse Ox 92 L 04/07/24 10:39 O2 Del Method Nasal Cannula 04/07/24 10:39 O2 Flow Rate 2.5 04/07/24 10:39 Documenting provider has reviewed patient's vital signs: yes Common normals: no apparent distress and oriented x3 General appearance: cooperative HENMT Common normals: normocephalic and head/scalp atraumatic Head and scalp: normocephalic and atraumatic Eye Common normals: conjunctivae normal and no scleral icterus Conjunctiva: conjunctiva(e) normal Respiratory Common normals: normal respiratory effort and clear to auscultation bilaterally Effort & inspection: able to speak in complete sentences Auscultation: clear to auscultation bilaterally Cardio Common normals: regular rate, S1 normal heart sound and S2 normal heart sound Rate: regular rate Heart sounds: S1 normal and S2 normal GI Common normals: Normal to inspection, nondistended, normoactive bowel sounds present, soft to palpation, non-tender and no hepatosplenomegaly Palpation: soft and no hepatosplenomegaly Extremity Common normals: no clubbing, cyanosis or edema Other: right foot in post op dressing Neuro Common normals: oriented x3, moves all extremities and no focal motor deficits Psych Common normals: mental status grossly normal, denies hallucinations, denies homicidal ideation and denies suicidal ideation Results Labs Labs: Short CBC 04/07/24 Range/Units 06:32 WBC 5.9 (4.0-11.0) 10^3/uL Hgb 14.2 (12.0-16.0) g/dL Hct 41.9 (36.0-48.0) % Plt Count 290 (150-450) 10^3/uL Assessment and Plan Assessment and Plan (1) Foot pain: Assessment and Plan: POD 1, pain is well controlled. PT/OT eval. Pod on board. s/p Right first metatarsal phalangeal joint fusion with application of short leg splint Qualifiers: Laterality: right Qualified Code(s): M79.671 - Pain in right foot (2) Depression: Assessment and Plan: Stable. C/w home medications. No SI/HI Qualifiers: Depression Type: major depressive disorder Major depression recurrence: recurrent Active/Remission status: in full remission Qualified Code(s): F33.42 - Major depressive disorder, recurrent, in full remission (3) Hypertension: Assessment and Plan: Well controlled. C/w home medications. Qualifiers: Hypertension type: primary hypertension Qualified Code(s): I10 - Essential (primary) hypertension (4) Hypothyroid: Assessment and Plan: c/w levothyroxine Qualifiers: Hypothyroidism type: unspecified Qualified Code(s): E03.9 - Hypothyroidism, unspecified (5) Diabetes: Assessment and Plan: c/w oral medications. Hold ozempic. SSI while in patient. Qualifiers: Diabetes mellitus type: type 2 Diabetes mellitus environment artist insulin use: without nursing home use Diabetes mellitus complication status: without complication Qualified Code(s): E11.9 - Type 2 diabetes mellitus without complications
--- NOTE | 2024-04-07 15:04 | CM.NOTE ---
Pt requesting HH services at discharge and would like [facility], discussed with pt PT recommendations. Pt voices concerns with initial transition to home and her BP and would like to see if [facility] would accept her for services for a short time during her initial transition. Case Management referral sent along with Physician progress notes to [facility]..
[2024-04-07] MEDS: 0.9 % SODIUM CHLORIDE 250 ML 10 ML IV (15:38)
[2024-04-07] MEDS: CEFAZOLIN SODIUM/DEXTROSE,ISO 1 GM/50 ML PREMIX IV ×2 (15:38→23:55)
[2024-04-07 16:52] LABS: Glucometer 221 mg/dL (74-106)
[2024-04-07] MEDS: INSULIN ASPART 300 UNIT/3 ML PEN SUBQ ×2 (17:02→22:16)
[2024-04-07 20:22] LABS: Glucometer 218 mg/dL (74-106)
[2024-04-07] MEDS: ESCITALOPRAM 10 MG TABLET PO (22:16)
[2024-04-07] MEDS: METFORMIN HCL 500 MG TAB.ER.24H 1000 MG PO (22:16)
[2024-04-07] MEDS: ENOXAPARIN SODIUM 40 MG/0.4 ML SYRINGE SUBQ (22:16)
[2024-04-07] MEDS: METOPROLOL TARTRATE 100 MG TABLET PO (22:16)
[2024-04-07] MEDS: TRAZODONE HCL 50 MG TABLET 75 MG PO (22:18)
[2024-04-08 04:14] VITALS: BP 101/63; PULSE 70; TEMP 36.5; O2SAT 92
[2024-04-08] MEDS: ACETAMINOPHEN 500 MG TABLET 1000 MG PO ×2 (06:05→14:46)
[2024-04-08] MEDS: LEVOTHYROXINE SODIUM 100 MCG TABLET PO (06:05)
[2024-04-08] MEDS: OXYCODONE HCL 5 MG TABLET 10 MG PO ×3 (06:08→14:46)
[2024-04-08 07:52] VITALS: PULSE 62
[2024-04-08 07:58] VITALS: BP 122/81; PULSE 62; TEMP 36.6; O2SAT 95
[2024-04-08 08:38] LABS: Glucometer 149 mg/dL (74-106)
[2024-04-08] MEDS: INSULIN ASPART 300 UNIT/3 ML PEN SUBQ ×2 (08:41→11:42)
[2024-04-08] MEDS: CHLORTHALIDONE 25 MG TABLET 50 MG PO (09:00)
[2024-04-08] MEDS: ASCORBIC ACID 500 MG TABLET 1000 MG PO (09:01)
[2024-04-08] MEDS: METOPROLOL TARTRATE 100 MG TABLET PO (09:01)
[2024-04-08] MEDS: FOLIC ACID/VIT B6/VIT B12 TABLET 1 TAB PO (09:01)
[2024-04-08] MEDS: AMLODIPINE BESYLATE 5 MG TABLET PO (09:01)
[2024-04-08] MEDS: PREGABALIN 75 MG CAPSULE PO (09:01)
[2024-04-08] MEDS: LOSARTAN POTASSIUM 50 MG TABLET 25 MG PO (09:01)
[2024-04-08] MEDS: CALCIUM CARBONATE 500 MG (200MG ELEMENTAL) TAB CHEW PO (09:02)
[2024-04-08] MEDS: MONTELUKAST SODIUM 10 MG TABLET PO (09:02)
[2024-04-08] MEDS: CANAGLIFLOZIN 100 MG TABLET PO (09:02)
[2024-04-08] MEDS: METFORMIN HCL 500 MG TAB.ER.24H 1000 MG PO (09:02)
[2024-04-08] MEDS: ASPIRIN 81 MG TABLET.DR PO (09:02)
[2024-04-08] MEDS: MULTIVITAMIN TABLET 1 TAB PO (09:02)
[2024-04-08] MEDS: DULOXETINE HCL 60 MG CAPSULE.DR 120 MG PO (09:02)
[2024-04-08] MEDS: CHOLECALCIFEROL (VITAMIN D3) 125 MCG/5,000 UNIT TABLET PO (09:02)
[2024-04-08] MEDS: ARIPIPRAZOLE 5 MG TABLET PO (09:02)
[2024-04-08] MEDS: CEFAZOLIN SODIUM/DEXTROSE,ISO 1 GM/50 ML PREMIX IV (09:03)
[2024-04-08] MEDS: ALENDRONATE SODIUM 70 MG TABLET PO (09:03)
--- NOTE | 2024-04-08 09:21 | SWNOTE1 ---
MER called [facility] and they are able to accept. It will be PT/OT and group home. SW to send final orders over.
--- NOTE | 2024-04-08 09:38 | CM.NOTE ---
Rounds made with Dr. Barrett. Plan for discharge today. Ms. Aguila in agreement.
--- NOTE | 2024-04-08 10:01 | P.DS_ITS ---
DS: Providers Provider Primary care physician: Jeanine Rao NP Admitting clinician: Shaikh Nena Attending physician on admission: Shaikh Nena Consults: 04/07/24 08:54 Physical Therapy Eval and Treat Routine Reason for consultation: gait training Has provider been notified: No Attending physician on discharge: Shaikh Nena Discharging clinician: Shaikh Nena DS: Diagnosis Discharge Diagnosis (1) Foot pain: Qualifiers: Laterality: right Qualified Code(s): M79.671 - Pain in right foot (2) Depression: Qualifiers: Depression Type: major depressive disorder Major depression recurrence: recurrent Active/Remission status: in full remission Qualified Code(s): F33.42 - Major depressive disorder, recurrent, in full remission (3) Hypertension: Qualifiers: Hypertension type: primary hypertension Qualified Code(s): I10 - Essential (primary) hypertension (4) Hypothyroid: Qualifiers: Hypothyroidism type: unspecified Qualified Code(s): E03.9 - Hypothyroidism, unspecified (5) Diabetes: Qualifiers: Diabetes mellitus type: type 2 Diabetes mellitus nursing home insulin use: without watermelon inspector use Diabetes mellitus complication status: without complication Qualified Code(s): E11.9 - Type 2 diabetes mellitus without complications DS: Summary Hospital Course Hospital Course: 58-year-old female with hx of hypothyroidism, T2 DM, HTN underwent right first metatarsal phalangeal joint fusion for right foot/toe pain that did not respond to conservative treatments. She was admitted for post op pain control, PT eval. She did well post operatively. Participated in PT. Pain is well controlled. Stable for discharge. Discussed with Podiatry. Will f/u Podiatry as outpatient for post care/monitoring. Status at Discharge Overall status at discharge: patient is back to baseline Time Spent with Patient Time attestation: Total time spent providing and/or coordinating discharge services: Time spent: greater than 30 minutes Exam Constitutional Vital Signs, click to edit/add: Last Vital Signs Temp 97.9 F 04/08/24 07:58 Pulse 62 04/08/24 07:58 Resp 16 04/08/24 07:58 BP 122/81 04/08/24 07:58 Pulse Ox 95 04/08/24 07:58 O2 Del Method Room Air 04/08/24 07:58 O2 Flow Rate 2.5 04/07/24 10:39 Documenting provider has reviewed patient's vital signs: yes Common normals: no apparent distress and oriented x3 General appearance: cooperative Respiratory Common normals: normal respiratory effort and clear to auscultation bilaterally Effort & inspection: able to speak in complete sentences Auscultation: clear to auscultation bilaterally Cardio Common normals: regular rate, S1 normal heart sound and S2 normal heart sound Rate: regular rate Heart sounds: S1 normal and S2 normal Extremity Common normals: no clubbing, cyanosis or edema Other: right foot in post op dressing DS: Data Data Completed and Pending Labs on day of discharge: Labs from last 24 hours 04/08/24 04/07/24 04/07/24 08:36 20:21 16:49 POC Glucose 149 H 218 H 221 H Discharge Plan Discharge Disposition: Home, Self-Care Condition: Good Discharge Medications: No Action Jardiance 10 mg tablet 10 mg PO DAILY multivitamin [Daily Multi-Vitamin] Tablet 1 tab PO DAILY metformin 500 mg tablet extended release 24 hr 1,000 mg PO BID meloxicam 15 mg tablet 15 mg PO DAILY chlorthalidone 50 mg tablet 50 mg PO DAILY bisoprolol fumarate 10 mg tablet 10 mg PO DAILY montelukast 10 mg tablet 10 mg PO DAILY aspirin [Adult Aspirin Regimen] 81 mg tablet,delayed release (DR/EC) 81 mg PO DAILY aripiprazole 5 mg tablet 5 mg PO DAILY Complex B-100 Tablet Extended Release 1 tab PO DAILY alprazolam 0.25 mg tablet 0.25 mg PO .QD PRN (Reason: anxiety) ascorbic acid (vitamin C) 1,000 mg capsule 1 g PO DAILY calcium carbonate 500 mg calcium (1,250 mg) tablet,chewable 500 mg PO DAILY duloxetine 60 mg capsule,delayed release(DR/EC) 120 mg PO DAILY trazodone 150 mg tablet 75 mg PO QPM PRN (Reason: insomnia) levothyroxine [Synthroid] 100 mcg tablet 100 mcg PO DAILY losartan 50 mg tablet 50 mg PO DAILY amlodipine 5 mg tablet 5 mg PO DAILY Ozempic 0.25 mg or 0.5 mg (2 mg/3 mL) pen injector 0.25 mg SUBCUT QWEEK Rx Instructions: tuesdays escitalopram oxalate 10 mg tablet 10 mg PO QPM Diet: advance to your usual diet Print Language: Colombian
--- NOTE | 2024-04-08 10:11 | SWNOTE1 ---
SW let pt know that [facility] will be contacting her for home health.
[2024-04-08 11:09] LABS: Glucometer 147 mg/dL (74-106)
[2024-04-08 11:34] VITALS: BP 102/70; PULSE 67; TEMP 36.5; O2SAT 95
--- NOTE | 2024-04-08 14:19 | SWNOTE1 ---
SW sent dc med rec, CRF, and dc summary to [facility].
== END 2024-04-08 15:00 | disposition home health service (06) ==
LOC: SURGOUT 06:22 → MS 10:11
PROVIDERS: Anesthesiology; PCP Nurse Practitioner; Visit Provider Podiatrist Foot & Ankle Surgery
PROC: (CPT 1480; principal; 2024-04-07 07:30)
DX: M20.11 Hallux valgus (acquired), right foot (principal); I10 Essential (primary) hypertension; E11.9 Type 2 diabetes mellitus without complications; E03.9 Hypothyroidism, unspecified; Z79.84 Long term (current) use of oral hypoglycemic drugs; M85.871 Other specified disorders of bone density and structure, right ankle and foot; M79.671 Pain in right foot; F33.42 Major depressive disorder, recurrent, in full remission; Z79.890 Hormone replacement therapy; J45.909 Unspecified asthma, uncomplicated
CPT/HCPCS: 28750; 36415; 73630; 76000; 82948; 85025; 94667; 94668; 96365; 96366; 96372; 97161; C1713; J0665; J0690; J1100; J1171; J1650; J1885; J2250; J2371; J2405; J2599; J2704; J3010

== ENCOUNTER 2024-05-07 13:19 | Outpatient (OUT) | payer OTHER, SELFPAY ==
--- NOTE | 2024-05-07 | XR_ITS ---
The [address] [address] Patient Name: AISHWARYA DUNN MRN: [id number] date: 1965 Sex: F Assigned Patient Location: [facility] Current Patient Location: Accession/Order Number: [id number] Exam Date: 05/07/2024 13:19 Report Date: 05/08/2024 05:53 At the request of: JADE ALVAREZ Procedure: XR foot RT min 3V PROCEDURE: XR foot RT min 3V HISTORY: RIGHT FOOT PAIN COMPARISON: XR foot right 04/07/2024 FINDINGS: BONES:Mechanical fusion the first metatarsophalangeal joint via dorsal plate and screws. No hardware fracture loosening. No bone fracture dislocation. Mild degenerative changes the midfoot. Degenerative enthesopathic spurring of the calcaneus. SOFT TISSUES:Mild dorsal soft tissue swelling. Cast material has been removed. EFFUSION:None visible. OTHER: Negative. XR/XR foot RT min 3V IMPRESSION: 1. Stable surgical changes without of hardware failure or change in alignment. 2. Stable mild-moderate degenerative changes. Electronically authenticated by: JACKSON BAUM Date: 05/08/2024 05:53
--- OUTSIDE RECORDS SUMMARY | 2024-05-07 13:40 | XMS_ITS | CCD ---
Author Organization [facility] Inform ion Partnership [facility] Care Team Providers Care Nonfarm Animal Caretaker Name Role Phone RINE, JEANINE L Unavailable Unavailable KABOUR, AMEER Unavailable Unavailable AHMAD, SHOWKAT Unavailable Unavailable KAMIREDDY, ADIREDDY Unavailable Unavailable Rine, Jeanine L Primary Care Provider [phone] Rine, Jeanine L Primary Care Provider POLO DIAZ Referring Unavailable RINE, JEANINE L Primary Care Unavailable RINE, JEANINE L Referring Unavailable RINE, JEANINE L Primary Care Unavailable RAMEY, TYLER Referring Unavailable RINE, JEANINE L Primary Care Unavailable RINE, JEANINE L Primary Care Unavailable RAMEY, TYLER Referring Unavailable Jose Putnam DO Primary Care Provider Rinsj CLERK TYPIST, Jeanine L Unavailable POLO DIAZ Attending Unavailable RINE, JEANINE L Attending Unavailable RINE, JEANINE L Attending Unavailable POLO DIAZ Attending Unavailable RINE, JEANINE L Attending Unavailable RINE, JEANINE L Attending Unavailable RINE, JEANINE L Referring Unavailable AMALIA FRANCIS Attending Unavailable Allergies Allergy Classification Reported Allergen(s) Allergy Type Date of Onset Reaction(s) Facility Unclassified (14 sources) Iodides Propensity to adverse reactions to drug 3 [email or web address] Work Phone: Unclassified (14 sources) Shellfish-Derive d Products Propensity to adverse reactions to drug 3 [email or web address] (2 sources) Seafood Propensity to adverse reactions to drug 3 [facility] (15 sources) Iodides Propensity to adverse reactions to drug 3 Hives [facility] Work Phone: (13 sources) Lisinopril Allergy to substance 3 C[facility] Medications Current Medications Medication Drug Class(es) Dates Sig (Normalized) Sig (Original) ALPRAZolam 0.25 mg oral tablet (16 sources) Benzodiazepine ALPRAZolam (Xana x) 0.25 MG tablet Indications: Anxiety Take 0.25 mg by mouth as needed at bedtime for anxiety. Active amLODIPine 5 mg oral tablet (13 sources) Dihydropyridine Calcium Channel Aynana Start: 3 take 1 tablet by mouth in the morning amLODIPine (Norvasc) 5 MG tablet Indications: Essential hypertension (CMS/HCC) Take 1 tablet (5 mg) by mouth in the morning. 90 tablet 3 05/28/2023 Active ARIPiprazole 5 mg oral tablet (13 sources) Atypical Antipsychotic Start: 3 take 1 tablet by mouth in the morning ARIPiprazole (Abilify) 5 MG tablet Take 5 mg by mouth in the morning. 12/31/2022 Active ascorbic acid 500 mg oral capsule (13 sources) Vitamin C Ascorbic Acid (V itamin C) 500 MG capsule Indications: Wellness examination 1 (one) time each day at the same time. Active atorvastatin 10 mg oral tablet (14 sources) HMG-CoA Reductase Inhibitor Start: 4 atorvastatin [...] B Complex Vitamins (B COMPLEX 1 PO) (13 sources) B Complex Vitami ns (B COMPLEX 1 PO) Indications: Wellness examination as directed Orally Active b complex vitamins capsule (3 sources) take 1 capsule by mouth once daily b complex vitamins capsule Take 1 capsule by mouth daily. 0 Active bisoprolol fumarate 10 mg oral tablet (13 sources) beta-Adrenergic Ayanna Start: 05-28-20 take 1 tablet by mouth in the morning bisoprolol (Zebeta) 10 MG tablet Indications: Essential hypertension (CMS/HCC) Take 1 tablet (10 mg) by mouth in the morning. 90 tablet 3 05/28/2023 Active Blood Glucose Monitoring Suppl (FreeStyle Lite) w/Device kit (13 sources) Start: 11-20-19 24 Blood Glucose Monitoring Suppl (FreeStyle Lite) w/Device kit USE DIRECTED 11/20/2023 Active calcium carbonate 500 mg oral tablet (13 sources) take 1 capsule by mouth in the morning calcium carbonate (Os-Wilfredo) 1250 (500 Ca) MG tablet Indications: Wellness examination Take 1 capsule by mouth in the morning. Active Calcium Carbonate / Vitamin D (3 sources) take 1 tablet by mouth once daily Calcium Carbonate-Vitamin D (CALCIUM + D PO) Take 1 tablet by mouth daily 0 Active chlorthalidone 50 mg oral tablet (13 sources) Thiazide-like Diuretic Start: 05-28-20 23 chlorthalidone (Hygroton) 50 MG tablet Indications: Essential hypertension (CMS/HCC) TAKE 1 TABLET EVERY MORNING WITH FOOD 90 tablet 3 05/28/2023 Active Continuous Glucose Sensor (Dexcom G7 Sensor) [facility] (12 sources) Start: 03-16-20 24 Continuous Glucose Sensor (Dexcom G7 Sensor) [facility] [place] [place] Indications: Type 2 diabetes mellitus without complication, without long-term current use of insulin (CMS/HCC) 1 Units every 14 (fourteen) days 2 each 11 03/16/2024 Active Start: 03-06-2024 Continuous Glu cose Sensor (Dexcom G7 Sensor) [facility] [place] Indications: Type 2 diabetes [...] DULoxetine 60 mg delayed release oral capsule (16 sources) Serotonin and Norepinephrine Reuptake Inhibitor take 1 capsule by mouth in the morning DULoxetine (Cymbalta) [address] capsule Indications: Degenerative cervical disc Take 60 mg by mouth in the morning. Active empagliflozin 25 mg oral tablet (15 sources) Sodium-Glucose Cotransporter 2 Inhibitor Start: 03-06-2024 End: 03-06-2025 take 1 tablet by mouth once daily empagliflozin (Jardiance) 25 MG Indications: Type 2 diabetes mellitus without complication, without long-term current use of insulin ([facility]) Take 1 tablet (25 mg) by mouth Daily 30 tablet 11 03/06/2024 03/06/2025 Active Start: 01-22-2024 End: 01-21-2025 take 1 tablet by mouth once daily empagliflozin (Jardiance) 10 MG Indications: Type 2 diabetes mellitus without complication, without long-term current use of insulin ([facility]) Take 1 tablet (10 mg) by mouth Daily 30 tablet 11 01/22/2024 03/06/2024 Discontinued (Therapy completed) escitalopram 10 mg oral tablet (6 sources) Serotonin Reuptake Inhibitor Start: 03-13-2024 take 1 tablet by mouth once daily escitalopram (Lexapro) 10 MG tablet Take 10 mg by mouth Daily 03/13/2024 Active fluconazole 100 mg oral tablet (13 sources) Azole Antifungal Start: 02-28-2024 take 1 tablet by mouth once daily fluconazole (Diflucan) 100 MG tablet Indications: Sandi vaginitis Take 1 tablet (100 mg) by mouth Daily 7 tablet 02/28/2024 Active levothyroxine sodium 0.1 mg oral tablet (16 sources) l-Thyroxine Start: 12-12-2023 Synthroid 100 MCG tablet Indications: Acquired hypothyroidism ([facility]) TAKE 1 TABLET IN THE [...] Active losartan potassium 50 mg oral tablet (14 sources) Angiotensin 2 Receptor Ayanna Start: End: take 0.5 tablet by mouth once daily losartan (Cozaar) 50 MG tablet Indications: Type 2 diabetes mellitus without complication, without long-term current use of insulin (CMS/HCC) Take 0.5 tablets (25 mg) by mouth Daily 45 tablet 1 03/27/2024 Active meloxicam 15 mg oral tablet (13 sources) Nonsteroidal Anti-inflammatory Drug Start: 023 take 1 tablet by mouth in the morning meloxicam (Mobic) 15 MG tablet Indications: Degenerative cervical disc Take 1 tablet (15 mg) by mouth in the morning. 90 tablet 3 05/28/2023 Active 24 hr metFORMIN hydrochloride 500 mg extended release oral tablet (16 sources) Biguanide Start: 023 take 2 tablets [...] 0 Active montelukast 10 mg oral tablet (14 sources) Leukotriene Receptor Antagonist Start: 05-28-2023 End: 03-25-2024 montelukast (Singulair) 10 MG tablet Indications: Environmental and seasonal allergies TAKE 1 TABLET IN THE MORNING 90 tablet 3 03/25/2024 Active semaglutide (Ozempic, 1 MG/DOSE,) 4 MG/3ML solution pen-injector (1 source) Start: 05-05-2024 inject 1 mg by subcutaneous injection every week semaglutide (Ozempic, 1 MG/DOSE,) 4 MG/3ML solution pen-injector Indications: Type 2 diabetes mellitus without complication, without long-term current use of insulin (CMS/HCC) Inject 1 mg under the skin 1 (one) time per week 3 mL 4 05/05/2024 Active therapeutic multivitamin-minera ls (THERAGRAN-M) tablet (3 sources) take 1 tablet by mouth once daily therapeutic multivitamin-sock examiner als (THERAGRAN-M) tablet Take 1 tablet by mouth daily. 0 Active therapeutic multivitamin-minera ls (Theragran-M) tablet (13 sources) take 1 tablet by mouth once daily therapeutic multivitamin-sock examiner als (Theragran-M) tablet Take 1 tablet by mouth Daily Active traZODone hydrochloride 150 mg oral tablet (16 sources) Serotonin Reuptake Inhibitor traZODone (Desyrel) 150 MG tablet Indications: Insomnia due to other mental disorder Take 75 mg by mouth as needed at bedtime Active take 1 tablet by mouth once jr y traZODone (DESYREL) 150 MG tablet Take 150 mg by mouth nightly 0 Active zinc gluconate 50 mg oral tablet (13 sources) take 1 tablet by katiana th [...] (Therapy completed) aspirin 325 mg oral tablet (16 sources) Platelet Aggregation Inhibitor, Nonsteroidal Anti-inflammatory Drug [...] morning. 30 tablet 11 05/10/2023 05/09/2024 Active 1 mg dose 1.5 ml semaglutide 1.34 mg/ml pen injector (2 sources) Start: 05-04-2024 End: 05-05-2024 inject 1 mg by subcutaneous injection every week semaglutide (Ozempic, 1 MG/DOSE,) 2 MG/1.5ML solution pen-injector Indications: Type 2 diabetes mellitus without complication, without long-term current use of insulin (CMS/HCC) Inject 1 mg under the skin 1 (one) time per week 2 each 12 05/04/2024 05/05/2024 Discontinued (Therapy completed) Semaglutide,0.25 or 0.5MG/DOS, (Ozempic, 0.25 or 0.5 MG/DOSE,) 2 MG/3ML solution pen-injector (9 sources) Start: 05-01-2024 End: 05-04-2024 Semaglutide,0.25 or 0.5MG/DOS, (Ozempic, 0.25 or 0.5 MG/DOSE,) 2 MG/3ML solution pen-injector Indications: Type 2 diabetes mellitus with hyperglycemia, with long-term current use of insulin (CMS/HCC) INJECT 0.25 MG SUBCUTANEOUSLY WEEKLY 2 mL 5 05/01/2024 05/04/2024 Discontinued (Therapy completed) Start: 05-01-2024 Semaglutide,0. 25 or 0.5MG/DOS, (Ozempic, 0.25 or 0.5 MG/DOSE,) 2 MG/3ML solution pen-injector Indications: Type 2 diabetes mellitus with hyperglycemia, with long-term current use of insulin (CMS/HCC) INJECT 0.25 MG SUBCUTANEOUSLY WEEKLY 2 mL 5 05/01/2024 Active Start: 03-10-2024 End: 05-01-2024 Semaglutide,0.25 or 0.5MG/DO S, (Ozempic, 0.25 or 0.5 MG/DOSE,) 2 MG/3ML solution pen-injector Indications: Type 2 diabetes mellitus with hyperglycemia, with long-term current use of insulin (CMS/HCC) Inject 0.25 mg under the skin 1 (one) time per week 3 mL 1 03/10/2024 05/01/2024 Discontinued Start: 03-10-2024 Semaglutide,0. 25 or 0.5MG/DOS, (Ozempic, 0.25 or 0.5 MG/DOSE,) 2 MG/3ML solution pen-injector Indications: Type 2 diabetes mellitus with hyperglycemia, with long-term current use of insulin (CMS/HCC) Inject 0.25 mg under the skin 1 (one) time per week 3 mL 1 03/10/2024 Active Problems Active Problems Problem Classification Problem Date Documented Date Episodic/Chronic Acquired foot deformities (20 sources) Toe joint rigid; Translations: [Hallux rigidus, left foot] Onset: 01-21-2024 01-21-2024 Chronic Anxiety disorders (20 sources) Panic attack; Translations: [Panic disorder [episodic paroxysmal anxiety]] Onset: 07-20-2017 Resolved: 03-06-2024 07-22-2017 Chronic Asthma (16 sources) Mild intermittent asthma; Translations: [Mild intermittent asthma, uncomplicated] Onset: 11-09-2022 Chronic Diabetes mellitus with complications (17 sources) Hyperglycemia due to type 2 diabetes mellitus; Translations: [Type 2 diabetes mellitus with hyperglycemia] Onset: 01-21-2024 01-21-2024 Chronic Diabetes mellitus without complication (20 sources) Diabetes mellitus; Translations: [Type 2 diabetes mellitus without complications] Onset: 11-09-2022 Resolved: 05-10-2023 07-22-2017 Chronic Disorders of lipid metabolism (16 sources) Pure hypercholesterolemia; Translations: [Pure hypercholesterolemia, unspecified] Onset: 11-09-2022 11-09-2022 Chronic Essential hypertension (20 sources) Hypertensive disorder; Translations: [Essential (primary) hypertension] Onset: 11-09-2022 07-22-2017 Chronic Immunizations and screening for infectious disease (2 sources) Immunization due; Translations: [Encounter for immunization] 03-06-2024 Episodic Miscellaneous mental health disorders (2 sources) Primary insomnia; Translations: [Primary insomnia] 03-06-2024 Chronic Mood disorders (18 sources) Severe major depression, single episode, without psychotic features; Translations: [Major depressive disorder, single episode, severe without psychotic features] Onset: 07-20-2017 07-22-2017 Chronic Nutritional deficiencies (17 sources) Vitamin D deficiency, unspecified; Translations: [Vitamin D deficiency] Onset: 11-09-2022 Chronic Osteoporosis (2 sources) Senile osteoporosis; Translations: [Age-related osteoporosis without current pathological fracture] Onset: 07-15-2023 07-15-2023 Chronic Other and unspecified benign neoplasm (2 sources) Melanocytic nevus of trunk; Translations: [Melanocytic nevi of trunk] 04-03-2024 Episodic Other nutritional; endocrine; and metabolic disorders (13 sources) Obesity; Translations: [Obesity, unspecified] Onset: 11-09-2022 11-09-2022 Chronic Other nutritional; endocrine; and metabolic disorders (2 sources) Body mass index 30+ - obesity; Translations: [Body mass index (BMI) 38.0-38.9, adult] 03-06-2024 Chronic Other skin disorders (2 sources) Seborrheic keratosis; Translations: [Other seborrheic keratosis] 04-03-2024 Episodic Other skin disorders (2 sources) Inflamed seborrheic keratosis; Translations: [Inflamed seborrheic keratosis] 04-03-2024 Episodic Other upper respiratory disease (16 sources) Allergic disposition; Translations: [Other allergic rhinitis] Onset: 11-09-2022 11-09-2022 Chronic Residual codes; unclassified (2 sources) Patient encounter status; Translations: [Encounter for procedure for purposes other than remedying health state, unspecified] 04-03-2024 Episodic Spondylosis; intervertebral disc disorders; other back problems (15 sources) Degeneration of cervical intervertebral disc; Translations: [Other cervical disc degeneration, unspecified cervical region] Onset: 11-09-2022 11-09-2022 Chronic Thyroid disorders (17 sources) Hypothyroidism, unspecified; Translations: [Acquired hypothyroidism] Onset: [...] Resolved: 07-22-2017 07-22-2017 Episodic Residual codes; unclassified (13 sources) Insomnia; Translations: [Insomnia, unspecified] Onset: 11-09-2022 11-09-2022 Episodic Results Test Name Value Interpretation Reference Range Facility No Panel Informationon 04-03 Complexity comment: Snip excision Informed consent: discussed and consent obtained Hemostasis achieved with: electrodesiccation [facility] [employer] Destruction method comment: Snip removal Anesthesia: the lesion was anesthetized in a standard fashion Anesthetic: 1% lidocaine w/ epinephrine 1-100,000 buffered w/ 8.4% NaHCO3 Hemostasis achieved with: electrodesiccation Outcome: patient tolerated procedure well with no complications [facility] [employer] [facility] DEXA BONE DENSITY 2 SITESon 07-17-2023 DEXA BONE DENSITY 2 SITES DEXA BONE DENSITY 2 SITES 07/15/2023 12:21 PM EST Indication: Screening. Comparison: Accurate comparison is not possible due to differences in equipment. [employer]. Lumbar spine and bilateral hips. Lumbar spine [...] Bernardo Squires MD 07/17/23 Final result Normal [facility] DXA Bone [Mass/Area] Bone de nsityon 07-17-2023 Some evidence of elevated bone mineral density PN RIS CONSOLIDATED DEXA BONE DENSITY 2 SITES [...] density 1.419 g/sq cm. T score 3.3. MHPN RIS CONSOLIDATED Bernardo Squires MD - 07/17/2023 DEXA BONE DENSITY 2 SITES 07/15/2023 12:21 PM EST Indication: Screening. Comparison: Accurate comparison is not possible due to differences in equipment. [employer]. Lumbar spine and bilateral hips. Lumbar spine [...] Some evidence of elevated bone mineral density [facility] DXA Bone [Mass/Area] Bone de nsityOrdered By: Bernardo Squires on 07-17-2023 [employer] Work Phone: DXA Bone [Mass/Area] Bone de nsityon 07-15-2023 Radiology Study observation (narrative) [facility] [employer] MAMMOGRAM SCREENING TOMOS YNTHESIS BILATERALon 05-24-2023 [...] IS VERY IMPORTANT TO YOUR HEALTH. THE [employer] GUIDELINES RECOMMEND THAT WOMEN 40 [...] Abs. Basophil 0.06 k/uL Normal 0.00-0.20 [facility] Comment on above: Performed By: #### C DP #### [address] [place] [address] Digital Intern: Gerson Barton MD Abs.Imm.Granulocyte 0.08 k/uL Normal 0.00-0.30 [facility] Comment on above: Performed By: #### C DP #### [address] [place] [id number] Digital Intern: Gerson Barton MD Abs.Neutrophil (Seg) 6.19 k/uL Normal 1.50-8.10 [facility] Comment on above: Performed By: #### C DP #### [address] [place] [place] [address] Digital Intern: Gerson Barton MD Basophils/100 WBC (Bld) 1 % Normal 0-2 [facility] Comment on above: Performed By: #### C DP #### [address] [place], [facility]83 Digital Intern: Gerson Barton MD Eosinophils (Bld) [#/Vol] 0.12 10*3/uL Normal 0.00-0.44 [facility] Comment on above: Performed By: #### C DP #### [address] [place] [id number] Digital Intern: Gerson Barton MD Eosinophils/100 WBC (Bld) 1 % Normal 1-4 [facility] Comment on above: Performed By: #### C DP #### [facility] [address] [place], [place] [id number] Digital Intern: Gerson Barton MD Erythrocyte distribution width (RBC) [Ratio] 14.0 % Normal 11.8-14.4 [facility] Comment on above: Performed By: #### C DP #### [facility] [address] [place] [id number] Digital Intern: Gerson Barton MD Hematocrit (Bld) [Volume fraction] 44.1 % Normal 36.3-47.1 [facility] Comment on above: Performed By: #### C DP #### [address] [place], [facility]83 Digital Intern: Gerson Barton MD Hemoglobin (Bld) [Mass/Vol] 14.5 g/dL Normal 11.9-15.1 [facility] Comment on above: Performed By: #### C DP #### [facility] [address] [place] [address] [place], [place] [id number] Digital Intern: Gerson Barton MD Immature granulocytes/100 WBC (Bld) 1 % High 0 [facility] Comment on above: Performed By: #### C DP #### [address] [place], [place] [id number] Digital Intern: Gerson Barton MD Lymphocytes (Bld) [#/Vol] 3.02 10*3/uL Normal 1.10-3.70 [facility] Comment on above: Performed By: #### C DP #### [facility] [address] [place], [place] [id number] Digital Intern: Gerson Barton MD Lymphocytes/100 WBC (Bld) 29 % Normal 24-43 [facility] Comment on above: Performed By: #### C DP #### [facility] [address] [place] [address] Digital Intern: Gerson Barton MD MCH (RBC) [Entitic mass] 29.2 pg Normal 25.2-33.5 [facility] Comment on above: Performed By: #### C DP #### [address] [place] [address] Digital Intern: Gerson Barton MD MCHC (RBC) [Mass/Vol] 32.9 g/dL Normal 28.4-34.8 [facility] Comment on above: Performed By: #### C DP #### [address] [place] [address] Digital Intern: Gerson Barton MD MCV (RBC) [Entitic vol] 88.7 fL Normal 82.6-102.9 [facility] Comment on above: Performed By: #### C DP #### [address] [place], [facility]83 Digital Intern: Gerson Barton MD Monocytes (Bld) [#/Vol] 0.98 10*3/uL Normal 0.10-1.20 [facility] Comment on above: Performed By: #### C DP #### [address] [place], [facility]83 Digital Intern: Gerson Barton MD Monocytes/100 WBC (Bld) 9 % Normal 3-12 [facility] Comment on above: Performed By: #### C DP #### [address] [place], [facility]83 Digital Intern: Gerson Barton MD Neutrophil (Seg) 59 % Normal 36-65 [facility] Comment on above: Performed By: #### C DP #### [address] [place], [facility]83 Digital Intern: Gerson Barton MD NRBC Automated 0.0 per 100 WBC Normal 0.0 [facility] Comment on above: Performed By: #### C DP #### [facility] [address] [place], [place] [id number] Digital Intern: Gerson Barton MD Platelet mean volume (Bld) [Entitic vol] 9.3 fL Normal 8.1-13.5 [facility] Comment on above: Performed By: #### C DP #### [address] [place] [id number] Digital Intern: Gerson Barton MD Platelets (Bld) [#/Vol] 365 10*3/uL Normal 138-453 [facility] Comment on above: Performed By: #### C DP #### [address] [place], [place] [id number] Digital Intern: Gerson Barton MD RBC (Bld) [#/Vol] 4.97 10*6/uL Normal 3.95-5.11 [facility] Comment on above: Performed By: #### C DP #### [address] [place], [place] [id number] Digital Intern: Gerson Barton MD WBC (Bld) [#/Vol] 10.5 10*3/uL Normal 3.5-11.3 [facility] Comment on above: Performed By: #### C DP #### [address] [place], [place] [id number] Digital Intern: Gerson Barton MD Hemoglobin A1Con 12-20-2022 Glucose [Mass/Vol] 126 mg/dL Normal [facility] Comment on above: Result Comment: The ADA and AACC recommend providing the estimated average glucose result to permit better patient understanding of their HBA1c result. Performed By: #### C P, CDP, TSHX #### [address] [place] [address] Digital Intern: Gerson Barton MD #### URNMAB, FT4, GLYHGB, VD25, LIPR #### [place] [id number] [place], [place] [id number] Digital Intern: Asad Draper MD HbA1c (Bld) [Mass fraction] 6.0 % Normal 4.0-6.0 [facility] Comment on above: Performed By: #### C P, CDP, TSHX #### [address] [place], [place] [id number] Digital Intern: Gerson Barton MD #### URNMAB, FT4, GLYHGB, VD25, LIPR #### [address] [id number] Digital Intern: Asad Draper MD Lipid Profileon 12-20-2022 Cholesterol [Mass/Vol] 115 mg/dL Normal <200 [facility] Comment on above: Result Comment: Cholesterol Guidelines: <200 Desirable 200-240 Borderline >240 Undesirable Performed By: #### C P, CDP, TSHX #### [address] [place], [place] [id number] Digital Intern: Gerson Barton MD #### URNMAB, FT4, GLYHGB, VD25, LIPR #### [address] [id number] Digital Intern: Asad Draper MD Cholesterol in HDL [Mass/Vol] 49 mg/dL Normal >40 [facility] Comment on above: Result Comment: HDL Guidelines: <40 Undesirable 40-59 Borderline >59 Desirable Performed By: #### C P, CDP, TSHX #### [address] [place], [place] [id number] Digital Intern: Gerson Barton MD #### URNMAB, FT4, GLYHGB, VD25, LIPR #### [place] [address] [place], [place] [id number] Digital Intern: Asad Draper MD Cholesterol in LDL [Mass/Vol] 32 mg/dL Normal 0-130 [facility] Comment on above: Result Comment: LDL Guidelines: <100 Desirable 100-129 Near to/above Desirable 130-159 Borderline >159 Undesirable Direct (measured) LDL and calculated LDL are not interchangeable tests. Performed By: #### C P, CDP, TSHX #### [address] [place], [place] [id number] Digital Intern: Gerson Barton MD #### URNMAB, FT4, GLYHGB, VD25, LIPR #### [place] [id number] [place], [place] [id number] Digital Intern: Asad Draper MD Cholesterol.total/Ch olesterol in HDL [Mass ratio] 2.3 {ratio} Normal <5 [facility] Comment on above: Performed By: #### C PNIYA, TSHX #### [address] [place], [place] [id number] Digital Intern: Gerson Barton MD #### URNMAB, FT4, GLYHGB, VD25, LIPR #### [place] [id number] [place], [place] [id number] Digital Intern: Asad Draper MD Triglyceride [Mass/Vol] 171 mg/dL High <150 [facility] Comment on above: Result Comment: Triglyceride Guidelines: <150 Desirable 150-199 Borderline 200-499 High >499 Very high Based on AHA Guidelines for fasting triglyceride, March 2012. Performed By: #### C P, NIYA, TSHX #### [address] [place], [place] [id number] Digital Intern: Gerson Barton MD #### URNMAB, FT4, GLYHGB, VD25, LIPR #### [facility] [address] [place] [address] Digital Intern: Asad Draper MD Microalb.,Random Uron 2022 Microalb/Creat Ratio 178 mcg/mg creat High <25 [facility] Comment on above: Performed By: #### C P, CDP, TSHX #### [address] [place], [place] [phone] Digital Intern: Gerson Barton MD #### URNMAB, FT4, GLYHGB, VD25, LIPR #### [address] [address] Digital Intern: Asad Draper MD Microalbumin conc. 764 mg/L High <21 [facility] Comment on above: Performed By: #### C P, CDP, TSHX #### [address] [place], [place] [phone] Digital Intern: Gerson Barton MD #### URNMAB, FT4, GLYHGB, VD25, LIPR #### [address] [address] Digital Intern: Asad Draper MD Creatinine [Mass/Vol] 428.7 mg/dL High 28.0-217.0 [facility] Comment on above: Performed By: #### C P, CDP, TSHX #### [address] [place], [place] [phone] Digital Intern: Gerson Barton MD #### URNMAB, FT4, GLYHGB, VD25, LIPR #### [address] [address] Digital Intern: Asad Draper MD Thyroxine, Freeon 12-20-2022 Thyroxine, Free 1.5 ng/dL Normal 0.9-1.7 [facility] Comment on above: Performed By: #### C P, CDP, TSHX #### [address] [place], [place] [phone] Digital Intern: Gerson Barton MD #### URNMAB, FT4, GLYHGB, VD25, LIPR #### [address] [phone] Digital Intern: Asad Draper MD Vitamin D 25 OHon 12-20-2022 Vitamin D 25 OH 59.0 ng/mL Normal >29.9 [facility] Comment on above: Result Comment: Reference Range: Vitamin D status Range Deficiency <20 ng/mL Mild Deficiency 20-30 ng/mL Sufficiency 30-100 ng/mL Toxicity >100 ng/mL Performed By: #### C P, CDP, TSHX #### [facility] [address] [address] Digital Intern: Gerson Barton MD #### URNMAB, FT4, GLYHGB, VD25, LIPR #### [facility] [address] [place], [place] [phone] Digital Intern: Asad Draper MD CBC with Auto Differentialon 12-19-2022 Basophils (Bld) [#/Vol] 0.05 10*3/uL [facility] Basophils/100 WBC (Bld) 0 % 0 - 2 % [facility] Eosinophils (Bld) [#/Vol] 0.07 10*3/uL [facility] Eosinophils/100 WBC (Bld) 1 % 1 - 4 % [facility] Erythrocyte distribution width (RBC) [Ratio] 13.8 % 11.8 - 14.4 % [facility] Hematocrit (Bld) [Volume fraction] 47.2 % High 36.3 - 47.1 % [facility] Hemoglobin (Bld) [Mass/Vol] 15.9 g/dL High 11.9 - 15.1 g/dL [facility] Immature granulocytes (Bld) [#/Vol] 0.09 10*3/uL [facility] Immature granulocytes/100 WBC (Bld) 1 % High 0 [facility] Interpretation and review of laboratory results Abnormal [facility] Lymphocytes/100 WBC (Bld) 16 % Low 24 - 43 % [facility] Lymphocytes/100 WBC (Bld) 1.85 % [facility] MCH (RBC) [Entitic mass] 28.8 pg 25.2 - 33.5 pg [facility] MCHC (RBC) [Mass/Vol] 33.7 g/dL 28.4 - 34.8 g/dL [facility] MCV (RBC) [Entitic vol] 85.5 fL 82.6 - 102.9 fL [facility] Monocytes/100 WBC (Bld) 8 % 3 - 12 % [facility] Monocytes/100 WBC (Bld) 0.89 % [facility] Neutrophils/100 WBC (Bld) 74 % High 36 - 65 % [facility] Nucleated RBC/100 WBC (Bld) [Ratio] 0.0 % 0.0 per 100 WBC [facility] Platelet mean volume (Bld) [Entitic vol] 9.0 fL 8.1 - 13.5 fL [facility] Platelets (Bld) [#/Vol] 335 10*3/uL [facility] RBC (Bld) [#/Vol] 5.52 10*6/uL High 3.95 - 5.1 1 m/uL [facility] Segmented neutrophils/100 WBC (Bld) 8.61 % High [facility] WBC other (Bld) [#/Vol] 11.6 High [facility] CBC with Diffon 12-19-2022 Abs. Basophil 0.05 k/uL Normal 0.00-0.20 [facility] Comment on above: Performed By: #### C P, CDP, TSHX #### [facility] [address] [place] [address] Digital Intern: Gerson Barton MD #### YESY, FT4, GLYHGB, VD25, LIPR #### [facility] [address] [place] [address] Digital Intern: Asad Draper MD Abs.Imm.Granulocyte 0.09 k/uL Normal 0.00-0.30 [facility] Comment on above: Performed By: #### C P, CDP, TSHX #### [facility] [address] [place] [address] Digital Intern: Gerson Barton MD #### URNMAB, FT4, GLYHGB, VD25, LIPR #### [address] [address] Digital Intern: Asad Draper MD Abs.Neutrophil (Seg) 8.61 k/uL High 1.50-8.10 [facility] Comment on above: Performed By: #### C P, CDP, TSHX #### [address] [place] [phone] Digital Intern: Gerson Barton MD #### URNMAB, FT4, GLYHGB, VD25, LIPR #### [place] [address] Digital Intern: Asad Draper MD Basophils/100 WBC (Bld) 0 % Normal 0-2 [facility] Comment on above: Performed By: #### C P, CDP, TSHX #### [address] [place] [phone] Digital Intern: Gerson Barton MD #### URNMAB, FT4, GLYHGB, VD25, LIPR #### [place] [address] Digital Intern: Asad Draper MD Eosinophils (Bld) [#/Vol] 0.07 10*3/uL Normal 0.00-0.44 [facility] Comment on above: Performed By: #### C P, CDP, TSHX #### [address] [place] [phone] Digital Intern: Gerson Barton MD #### URNMAB, FT4, GLYHGB, VD25, LIPR #### [place] [phone] Digital Intern: Asad Draper MD Eosinophils/100 WBC (Bld) 1 % Normal 1-4 [facility] Comment on above: Performed By: #### C P, CDP, TSHX #### [address] [place], [place] [phone] Digital Intern: Gerson Barton MD #### URNMAB, FT4, GLYHGB, VD25, LIPR #### [address] [phone] Digital Intern: Asad Draper MD Erythrocyte distribution width (RBC) [Ratio] 13.8 % Normal 11.8-14.4 [facility] Comment on above: Performed By: #### C P, CDP, TSHX #### [address] [place] [place] [address] Digital Intern: Gerson Barton MD #### URNMAB, FT4, GLYHGB, VD25, LIPR #### [address] [id number] Digital Intern: Asad Draper MD Hematocrit (Bld) [Volume fraction] 47.2 % High 36.3-47.1 [facility] Comment on above: Performed By: #### C P, CDP, TSHX #### [address] [place], [place] [phone] Digital Intern: Gerson Barton MD #### URNMAB, FT4, GLYHGB, VD25, LIPR #### [address] [phone] Digital Intern: Asad Draper MD Hemoglobin (Bld) [Mass/Vol] 15.9 g/dL High 11.9-15.1 [facility] Comment on above: Performed By: #### C P, CDP, TSHX #### [address] [place] [place] [address] Digital Intern: Gerson Barton MD #### URNMAB, FT4, GLYHGB, VD25, LIPR #### [address] [address] Digital Intern: Asad Draper MD Immature granulocytes/100 WBC (Bld) 1 % High 0 [facility] Comment on above: Performed By: #### C P, CDP, TSHX #### [facility] [address] [place] [address] [place], [place] [phone] Digital Intern: Gerson Barton MD #### URNMAB, FT4, GLYHGB, VD25, LIPR #### [place] [address] [place] [address] Digital Intern: Asad Draper MD Lymphocytes (Bld) [#/Vol] 1.85 10*3/uL Normal 1.10-3.70 [facility] Comment on above: Performed By: #### C P, CDP, TSHX #### [address] [place] [place] [address] Digital Intern: Gerson Barton MD #### URNMAB, FT4, GLYHGB, VD25, LIPR #### [address] [address] Digital Intern: Asad Draper MD Lymphocytes/100 WBC (Bld) 16 % Low 24-43 [facility] Comment on above: Performed By: #### C P, CDP, TSHX #### [address] [place] [place] [address] Digital Intern: Gerson Barton MD #### URNMAB, FT4, GLYHGB, VD25, LIPR #### [place] [address] [place] [address] Digital Intern: Asad Draper MD MCH (RBC) [Entitic mass] 28.8 pg Normal 25.2-33.5 [facility] Comment on above: Performed By: #### C P, CDP, TSHX #### [facility] [address] [place] [address] [address] [place] [phone] Digital Intern: Gerson Barton MD #### URNMAB, FT4, GLYHGB, VD25, LIPR #### [address] [phone] Digital Intern: Asad Draper MD MCHC (RBC) [Mass/Vol] 33.7 g/dL Normal 28.4-34.8 [facility] Comment on above: Performed By: #### C P, CDP, TSHX #### [address] [place] [phone] Digital Intern: Gerson Barton MD #### URNMAB, FT4, GLYHGB, VD25, LIPR #### [place] [address] Digital Intern: Asad Draper MD MCV (RBC) [Entitic vol] 85.5 fL Normal 82.6-102.9 [facility] Comment on above: Performed By: #### C P, CDP, TSHX #### [address] [place] [phone] Digital Intern: Gerson Barton MD #### URNMAB, FT4, GLYHGB, VD25, LIPR #### [address] [phone] Digital Intern: Asad Draper MD Monocytes (Bld) [#/Vol] 0.89 10*3/uL Normal 0.10-1.20 [facility] Comment on above: Performed By: #### C P, CDP, TSHX #### [address] [place] [address] Digital Intern: Gerson Barton MD #### URNMAB, FT4, GLYHGB, VD25, LIPR #### [address] [phone] Digital Intern: Asad Draper MD Monocytes/100 WBC (Bld) 8 % Normal 3-12 [facility] Comment on above: Performed By: #### C P, CDP, TSHX #### [address] [place], [place] 9551783 Digital Intern: Gerson Barton MD #### URNMAB, FT4, GLYHGB, VD25, LIPR #### [address] [phone] Digital Intern: Asad Draper MD Neutrophil (Seg) 74 % High 36-65 [facility] Comment on above: Performed By: #### C P, CDP, TSHX #### [address] [place] [phone] Digital Intern: Gerson Barton MD #### URNMAB, FT4, GLYHGB, VD25, LIPR #### [address] [phone] Digital Intern: Asad Draper MD NRBC Automated 0.0 per 100 WBC Normal 0.0 [facility] Comment on above: Performed By: #### C P, CDP, TSHX #### [address] [place] [phone] Digital Intern: Gerson Barton MD #### URNMAB, FT4, GLYHGB, VD25, LIPR #### [address] [phone] Digital Intern: Asad Draper MD Platelet mean volume (Bld) [Entitic vol] 9.0 fL Normal 8.1-13.5 [facility] Comment on above: Performed By: #### C P, CDP, TSHX #### [address] [place] [place] [address] Digital Intern: Gerson Barton MD #### URNMAB, FT4, GLYHGB, VD25, LIPR #### [address] [place] [address] Digital Intern: Asad Draper MD Platelets (Bld) [#/Vol] 335 10*3/uL Normal 138-453 [facility] Comment on above: Performed By: #### C P, CDP, TSHX #### [facility] [address] [place] [address] [place], [place] [phone] Digital Intern: Gerson Barton MD #### URNMAB, FT4, GLYHGB, VD25, LIPR #### [facility] [address] [place] [address] Digital Intern: Asad Draper MD RBC (Bld) [#/Vol] 5.52 10*6/uL High 3.95-5.11 [facility] Comment on above: Performed By: #### C P, CDP, TSHX #### [address] [place] [phone] Digital Intern: Gerson Barton MD #### URNMAB, FT4, GLYHGB, VD25, LIPR #### [address] [address] Digital Intern: Asad Draper MD WBC (Bld) [#/Vol] 11.6 10*3/uL High 3.5-11.3 [facility] Comment on above: Performed By: #### C P, CDP, TSHX #### [address] [place], [place] [phone] Digital Intern: Gerson Barton MD #### URNMAB, FT4, GLYHGB, VD25, LIPR #### [address] [address] Digital Intern: Asad Draper MD Comp Metabolic Profon 2022 Albumin [Mass/Vol] 5.1 g/dL Normal 3.5-5.2 [facility] Comment on above: Performed By: #### C P, CDP, TSHX #### [facility] [address] [place], [place] [phone] Digital Intern: Gerson Barton MD #### URNMAB, FT4, GLYHGB, VD25, LIPR #### [place] [address] [place], [place] [phone] Digital Intern: Asad Draper MD Albumin/Glob Ratio 1.6 Normal 1.0-2.5 [facility] Comment on above: Performed By: #### C P, CDP, TSHX #### [facility] [address] [place] [address] Digital Intern: Gerson Barton MD #### URNMAB, FT4, GLYHGB, VD25, LIPR #### [address] [phone] Digital Intern: Asad Draper MD Alkaline Phos 74 U/L Normal 35-104 [facility] Comment on above: Performed By: #### C P, CDP, TSHX #### [facility] [address] [place] [address] [place] [address] Digital Intern: Gerson Barton MD #### URNMAB, FT4, GLYHGB, VD25, LIPR #### [address] [phone] Digital Intern: Asad Draper MD ALT [Catalytic activity/Vol] 44 U/L High 5-33 [facility] Comment on above: Performed By: #### C P, CDP, TSHX #### [facility] [address] [place] [address] Digital Intern: Gerson Barton MD #### URNMAB, FT4, GLYHGB, VD25, LIPR #### [place] [address] [place], [place] [phone] Digital Intern: Asad Draper MD Anion gap [Moles/Vol] 14 mmol/L Normal 9-17 [facility] Comment on above: Performed By: #### C P, CDP, TSHX #### [facility] [address] [place], [place] [phone] Digital Intern: eGrson Barton MD #### URNMAB, FT4, GLYHGB, VD25, LIPR #### [address] [phone] Digital Intern: Asad Draper MD AST [Catalytic activity/Vol] 27 U/L Normal <32 [facility] Comment on above: Performed By: #### C P, CDP, TSHX #### [address] [place], [place] 7098983 Digital Intern: Gerson Barton MD #### URNMAB, FT4, GLYHGB, VD25, LIPR #### [address] [phone] Digital Intern: Asad Draper MD Bilirubin [Mass/Vol] 1.7 mg/dL High 0.3-1.2 [facility] Comment on above: Performed By: #### C P, CDP, TSHX #### [address] [place], [place] [phone] Digital Intern: Gerson Barton MD #### URNMAB, FT4, GLYHGB, VD25, LIPR #### [address] [phone] Digital Intern: Asad Draper MD BUN/CRE Ratio 20 Normal 9-20 [facility] Comment on above: Performed By: #### C P, CDP, TSHX #### [facility] [address] [place] [address] Digital Intern: Gerson Barton MD #### URNMAB, FT4, GLYHGB, VD25, LIPR #### [address] [place] [address] Digital Intern: Asad Draper MD Calcium [Mass/Vol] 10.5 mg/dL High 8.6-10.4 [facility] Comment on above: Performed By: #### C P, CDP, TSHX #### [facility] [address] [place], [place] [phone] Digital Intern: Gerson Barton MD #### URNMAB, FT4, GLYHGB, VD25, LIPR #### [address] [address] Digital Intern: Asad Draper MD Chloride [Moles/Vol] 94 mmol/L Low 98-107 [facility] Comment on above: Performed By: #### C P, CDP, TSHX #### [address] [place], [place] [phone] Digital Intern: Gerson Barton MD #### URNMAB, FT4, GLYHGB, VD25, LIPR #### [address] [phone] Digital Intern: Asad Draper MD CO2 [Moles/Vol] 30 mmol/L Normal 20-31 [facility] Comment on above: Performed By: #### C P, CDP, TSHX #### [facility] [address] [place] [address] [place] [place], [place] [phone] Digital Intern: Gerson Barton MD #### URNMAB, FT4, GLYHGB, VD25, LIPR #### [address] [phone] Digital Intern: Asad Draper MD Creatinine [Mass/Vol] 0.8 mg/dL Normal 0.5-0.9 [facility] Comment on above: Performed By: #### C P, CDP, TSHX #### [facility] [address] [place] [address] [address] [place], [place] [phone] Digital Intern: Gerson Barton MD #### URNMAB, FT4, GLYHGB, VD25, LIPR #### [place] [address] [place] [address] Digital Intern: Asad Draper MD GFR/1.73 sq M.predicted among non-blacks MDRD (S/P/Bld) [Vol rate/Area] mL/min/{1.73_m2} Normal >60 [facility] Comment on above: Result Comment: [...] By: #### C P, CDP, TSHX #### [address] [place] [address] Digital Intern: Gerson Barton MD #### URNM, FT4, GLYHGB, VD25, LIPR #### [place] [address] [place] [address] Digital Intern: Asad Draper MD Glucose [Mass/Vol] 137 mg/dL High 70-99 [facility] Comment on above: Performed By: #### C P, CDP, TSHX #### [address] [place] [address] Digital Intern: Gerson Barton MD #### URNMAB, FT4, GLYHGB, VD25, LIPR #### [place] [address] [place] [address] Digital Intern: Asad Draper MD Potassium [Moles/Vol] 4.3 mmol/L Normal 3.7-5.3 [facility] Comment on above: Performed By: #### C P, CDP, TSHX #### [address] [place] [address] Digital Intern: Gerson Barton MD #### URNMAB, FT4, GLYHGB, VD25, LIPR #### [address] [phone] Digital Intern: Asad Draper MD Protein [Mass/Vol] 8.2 g/dL Normal 6.4-8.3 [facility] Comment on above: Performed By: #### C P, CDP, TSHX #### [address] [place] [address] Digital Intern: Gerson Barton MD #### URNMAB, FT4, GLYHGB, VD25, LIPR #### [address] [phone] Digital Intern: Asad Draper MD Sodium [Moles/Vol] 138 mmol/L Normal 135-144 [facility] Comment on above: Performed By: #### C P, CDP, TSHX #### [address] [place], [place] [phone] Digital Intern: Gerson Barton MD #### URNMAB, FT4, GLYHGB, VD25, LIPR #### [address] [phone] Digital Intern: Asad Draper MD Urea nitrogen [Mass/Vol] 16 mg/dL Normal 6-20 [facility] Comment on above: Performed By: #### C P, CDP, TSHX #### [address] [place] [address] Digital Intern: Gerson Barotn MD #### URNMAB, FT4, GLYHGB, VD25, LIPR #### [address] [phone] Digital Intern: Asad Draper MD [facility] Metabolic [facility] 12-19-2022 Albumin [Mass/Vol] 5.1 g/dL 3.5 - 5.2 g/dL [facility] Albumin/Globulin [Mass ratio] 1.6 {ratio} 1.0 - 2.5 [facility] ALP [Catalytic activity/Vol] 74 U/L 35 - 104 U/L [facility] ALT [Catalytic activity/Vol] 44 U/L High 5 - 33 U/L [facility] Anion gap [Moles/Vol] 14 mmol/L 9 - 17 mmol/L [facility] AST [Catalytic activity/Vol] 27 U/L NINF - 32 U/L [facility] Bilirubin [Mass/Vol] 1.7 mg/dL High 0.3 - 1 .2 mg/dL [facility] Calcium [Mass/Vol] 10.5 mg/dL High 8.6 - 10. 4 mg/dL [facility] Chloride [Moles/Vol] 94 mmol/L Low 98 - 10 7 mmol/L [facility] CO2 [Moles/Vol] 30 mmol/L 20 - 31 mmol/L [facility] Creatinine [Mass/Vol] 0.8 mg/dL 0.5 - 0.9 mg/dL [facility] GFR/1.73 sq M.predicted MDRD (S/P/Bld) [Vol rate/Area] - PINF [facility] Comment on above: These results are not [...] 137 mg/dL High 70 - 99 mg/dL [facility] Interpretation and review of laboratory results Abnormal [facility] Potassium [Moles/Vol] 4.3 mmol/L 3.7 - 5.3 mmol/L [facility] Protein [Mass/Vol] 8.2 g/dL 6.4 - 8.3 g/dL [facility] Sodium [Moles/Vol] 138 mmol/L 135 - 144 mmol/L [facility] Urea nitrogen [Mass/Vol] 16 mg/dL 6 - 20 mg/dL [facility] Urea nitrogen/Creatinine [Mass ratio] 20 mg/mg 9 - 20 [facility] Lipid Panelon 12-19-2022 Cholesterol [Mass/Vol] 115 mg/dL NINF - 200 mg/dL [facility] Comment on above: Cholesterol Guidelines: <200 Desirable 200-240 Borderline >240 Undesirable Cholesterol in HDL [Mass/Vol] 49 mg/dL 40 - PINF mg/dL [facility] Comment on above: HDL Guidelines: <40 Undesirable 40-59 Borderline >59 Desirable Cholesterol in LDL [Mass/Vol] 32 mg/dL 0 - 130 mg/dL [facility] Comment on above: LDL Guidelines: <100 Desirable 100-129 Near to/above Desirable 130-159 Borderline >159 Undesirable Direct (measured) LDL and calculated LDL are not interchangeable tests. Cholesterol.total/Ch olesterol in HDL [Mass ratio] 2.3 {ratio} NINF - 5 [facility] Interpretation and review of laboratory results Abnormal [facility] Triglyceride [Mass/Vol] 171 mg/dL High [facility] mg/dL [facility] Comment on above: Triglyceride Guidelines: <150 Desirable 150-199 Borderline 200-499 High >499 Very high Based on AHA Guidelines for fasting triglyceride, March 2012. [facility] Microalbumin, Uron 3 Albumin DL <= 20 mg/L (U) [Mass/Vol] 764 mg/L High NINF - 21 mg/L [facility] Albumin/Creatinine DL <= 20 mg/L (U) [Ratio] 178 High [facility] Creatinine (U) [Mass/Vol] 428.7 mg/dL High 28.0 - 217.0 mg/dL [facility] Interpretation and review of laboratory results Abnormal [facility] T4, Freeon 12-19-2022 Free T4 [Mass/Vol] 1.5 ng/dL 0.9 - 1.7 ng/dL [facility] TSH w/reflex to FT4on 2022 Thyroid Stim. Horm. 6.76 uIU/mL High 0.30-5.00 [facility] Comment on above: Performed By: #### C P, CDP, TSHX #### [facility] [address] [place] [address] Digital Intern: Gerson Barton MD #### URNMAB, FT4, GLYHGB, VD25, LIPR #### [facility] [address] [place] [address] Digital Intern: Asad Draper MD TSH with Reflexon 12-19-2022 Interpretation and review of laboratory results Abnormal [facility] TSH Qn 6.76 m[IU]/L High [facility] Vitamin D 25 Hydroxyon 12-19 25-hydroxyvitamin D3 [Mass/Vol] 59.0 ng/mL 29.9 - PINF ng/mL [facility] Comment on above: Reference Range: Vitamin D status Range Deficiency <20 ng/mL Mild Deficiency 20-30 ng/mL Sufficiency 30-100 ng/mL Toxicity >100 ng/mL [facility] XR CHEST (2 VW)Ordered By: Ventura Whitlock on 12-08-2020 No acute cardiopulmonary disease. [facility] Work Phone: EXAMINATION: TWO XRA Y VIEWS OF THE CHEST 12/06/2020 7:41 pm COMPARISON: July 19, 2017. HISTORY: ORDERING SYSTEM PROVIDED HISTORY: Mild intermittent asthma without complication TECHNOLOGIST PROVIDED HISTORY: ASTHMA FINDINGS: No lines or tubes. Normal cardiomediastinal silhouette. The lungs are clear without focal consolidation or pleural effusion. No suspicious pulmonary nodules. No pulmonary edema. No pneumothorax. No acute osseous abnormality. [facility] Work Phone: Kalpesh, pn Incoming Radiant Results From [email or web address] - 12/08/2020 8:26 PM EDT EXAMINATION: TWO [...] osseous abnormality. IMPRESSION: No acute cardiopulmonary disease. [facility] Work Phone: [facility] Work Phone: Discharge Summaryon 07-22-19 18 HIM IP Note OR Coding Advisor Normal [facility] CBCon 07-21-2017 Erythrocyte distribution width Auto Ratio (RBC) 12.9 % Normal 11.8-14.4 [facility] Comment on above: Performed By: #### BECCA MYLES ####[address] [address] Erythrocytes (RBC) 0.0 per 100 WBC Normal 0.0 [facility] Comment on above: Result Comment: [facility] [employer] [address] [place] [id number] Performed By: #### BECCA MYLES ####[address] [address] Erythrocytes (RBC) 4.33 10*6/uL Normal 3.95-5.11 [facility] Comment on above: Performed By: #### BECCA MYLES ####[address] [address] Hematocrit (HCT) 38.1 % Normal 36.3-47.1 [facility] Comment on above: Performed By: #### BECCA MYLES ####[facility] [address] [place] [address] Hemoglobin mass conc (Bld) 12.4 g/dL Normal 11.9-15.1 [facility] Comment on above: Performed By: #### BECCA MYLES ####[facility] [address] [place] [address] MCH 28.6 pg Normal 25.2-33.5 [facility] Comment on above: Performed By: #### VIRGEN MYLESR ####[address] [place] [address] MCHC mass conc (RBC) 32.5 g/dL Normal 28.4-34.8 [facility] Comment on above: Performed By: #### VIRGEN MYLESR ####[facility] [address] [place] [address] MCV 88.0 fL Normal 82.6-102.9 [facility] Comment on above: Performed By: #### VIRGEN MYLESR ####[facility] [address]Twewfxmcqnhx[address] [place] [address] 60470 Platelet mean volume (PMV) 9.7 fL Normal 8.1-13.5 [facility] Comment on above: Performed By: #### VIRGEN MYLESR ####[facility] [address]Dyjnydezlaya[address] [place] [address] 95882 Platelets 198 10*3/uL Normal 138-453 [facility] Comment on above: Performed By: #### VIRGEN MYLESR ####[facility] MasonLlqgwhoxrsjw0627 [place] [address] WBC (Leukocytes) 4.5 10*3/uL Normal 3.5-11.3 [facility] Comment on above: Performed By: #### David WOMACK LIPR ####[facility] MasonEjganhavtzrs[address] [place] [address] 44195 Comp Metabolic Pr/rfx MGon 0 - Potassium molar conc 3.5 mmol/L Low 3.7-5.3 [facility] Comment on above: Performed By: #### David WOMACK LIPR ####[facility] [address]Rgsvrcciyqjg[address] [place] [address] 44997 (cont.) Normal [facility] Comment on above: Result Comment: Aver age GFR for 40-49 years old: 99 mL/min/1.73sq mChronic Kidney Disease: <60 mL/min/1.73sq mKidney failure: <15 mL/min/1.73sq meGFR calculated using average adult body mass. Additional eGFR calculator available at:[email or web address] [address] [place] [address] Performed By: #### BECCA MYLES ####[address] [address] Alanine aminotransferase (ALT) 15 U/L Normal 5-33 [facility] Comment on above: Performed By: #### BECCA MYLES ####[facility] HospitalViroproWdvprcihtlje[address] [place] [address] 45666 Albumin 3.9 g/dL Normal 3.5-5.2 [facility] Comment on above: Performed By: #### BECCA MYLES ####[facility] HospitalViroproZwwvjydprlsi[address] [place] [address] 08301 Albumin/Globulin Ratio 2.1 {ratio} Normal 1.0-2.5 [facility] Comment on above: Performed By: #### BECCA MYLES ####[facility] HospitalViroproNjgymqvfddos99[address] [place] [address] 71498 Alkaline Phos 34 U/L Low 35-104 [facility] Comment on above: Performed By: #### BECCA MYLES ####[facility] HospitalViroproWkgspuzzyagm[address] [place] [address] 15689 Anion gap 12 mmol/L Normal 9-17 [facility] Comment on above: Performed By: #### BECCA MYLES ####[facility] HospitalViroproSoovihwtldzi5[address] [place] [address] 94011 Aspartate aminotransferase (AST) 14 U/L Normal <32 [facility] Comment on above: Performed By: #### BECCA MYLES ####[address] [address] Bilirubin Ql (U) 1.02 mg/dL Normal 0.3-1.2 [facility] Comment on above: Performed By: #### BECCA MYLES ####[facility] [address] [place] [address] 50439 Calcium 9.0 mg/dL Normal 8.6-10.4 [facility] Comment on above: Performed By: #### BECCA MYLES ####[address] [address] Chloride 99 mmol/L Normal 98-107 [facility] Comment on above: Performed By: #### BECCA MYLES ####[facility] I[address] [place] [address] 86415 CO2 24 mmol/L Normal 20-31 [facility] Comment on above: Performed By: #### BECCA MYLES ####[address] [address] Creatinine 0.60 mg/dL Normal 0.50-0.90 [facility] Comment on above: Performed By: #### BECCA MLYES ####[facility] Gjqlbxbnhgam14[address] [place] [address] eGFR (non-black) mL/min/{1.73_m2} Normal >60 [facility] Comment on above: Performed By: #### BECCA MYLES ####[address] [place] [address] Glucose mass conc 99 mg/dL Normal 70-99 [facility] Comment on above: Performed By: #### BECCA MYLES ####[address] [place] [address] Protein 5.8 g/dL Low 6.4-8.3 [facility] Comment on above: Performed By: #### T VU, LIPR ####[facility] HospitalViroproLhatsqlcnhca9062 [place] [address] Sodium 135 mmol/L Normal 135-144 [facility] Comment on above: Performed By: #### T VU LIPR ####[facility] [place] [address] Urea nitrogen 21 mg/dL High 11-20 [facility] Comment on above: Performed By: #### T VU LIPR ####[facility] HospitalViroproZlrypzaurjpx8[address] [place] [address]35 BUN/CRE Ratio NOT REPORTED Normal 02-20 [facility] Comment on above: Performed By: #### T VU LIPR ####[facility] HospitalViroproSvmbvnpiwpub3764 [place] [address] Staging: NOT REPORTED Normal [facility] Comment on above: Performed By: #### T VU LIPR ####[facility] HospitalViroproMukwrtpzukah[address] [place] [address] 96914 Magnesiumon 07-21-2017 Magnesium 1.9 mg/dL Normal 1.6-2.6 [facility] Comment on above: Result Comment: [employer] [facility] [place] [address] Performed By: #### T VU LIPR ####[facility] HospitalViroproHhoqdmudkegq05[address] [place] [address]38 Plan of Careon 07-21-2017 HIM IP Note OR Coding Advisor Normal [facility] HIM IP Note OR Coding Advisor Normal [facility] HIM IP Note OR Coding Advisor Normal [facility] Progress Noteon 07-21-2017 HIM IP Note OR Coding Advisor Normal [facility] HIM IP Note OR Coding Advisor Normal [facility] CARDIAC STRESS TESTon 2017 CARDIAC STRESS TEST [facility] [address] [place] [address] CARDIAC STRESS TESTPATIENT NAME: NADEEN AGUILA : 1965MED REC NO: [id number] ROOM: [address] [place], [place] [address]OUNT NO: [id number] ADMIT DATE: 07/20/2017PROVIDER: Ang CraigARDIOLITE TREADMILL STRESS STUDYDATE OF STUDY: 07/20/2017ORDERING PROVIDER: Mari ZuritaST. [facility] PROVIDER: Jori GarciaDICATION: Chest discomfort.CONSENT: The test was explained and [...] of Nuclear MedicineANG SHELLMID: 07/20/2017 15:47:34 /PGAYTANJob#: [id number] Doc#: UnknownPositive result faxed to the Unit Normal [facility] Consulton 07-20-2017 HIM IP Note OR Coding Advisor Normal [facility] History and Physicalon 07-20 HIM IP Note OR Coding Advisor Normal [facility] K (Potassium)on 07-20-2017 Potassium molar conc 3.9 mmol/L Normal 3.7-5.3 [facility] Comment on above: Result Comment: [facility] [employer] [address] [place] [address] [id number] ([phone] Performed By: #### T BECCA WOMACK ####[facility] [address] [place] [address] Lipid Profileon 07-20-2017 Cholesterol 162 mg/dL Normal <200 [facility] Comment on above: Result Comment: Chol esterol Guidelines: <200 Desirable 200-240 Borderline >240 Undesirable Performed By: #### David WOMACK LIPR ####[facility] [address] [place] [address] 76383 Cholesterol to HDL Ratio 3.4 {ratio} Normal <5 [facility] Comment on above: Performed By: #### David WOMACK LIPR ####[facility] HospitalViroproEqdxuezpyxmi86[address] [place] [address] 28814 HDL Cholesterol 48 mg/dL Normal >40 [facility] Comment on above: Result Comment: HDL Guidelines: <40 Undesirable 40-59 Borderline >59 Desirable Performed By: #### BECCA MYLES ####[facility] [address] [place] [address] 15423 LDL Cholesterol 84 mg/dL Normal 0-130 [facility] Comment on above: Result Comment: LDL Guidelines: <100 Desirable 100-129 Near to/above Desirable 130-159 Borderline >159 UndesirableDirect (measured) LDL and calculated LDL are not interchangeable tests. Performed By: #### David WOMACK LIPR ####[facility] [address] [place] [address] 89764 Triglyceride 151 mg/dL High <150 [facility] Comment on above: Result Comment: Trig lyceride Guidelines: <150 Desirable 150- 199 Borderline 200-499 High >499 Very high Based on AHA Guidelines for fasting triglyceride, March 2012.[facility] [employer] [facility] [place] [address] Performed By: #### BECCA MYLES ####[facility] HospitalViroproRmrsndtmghbm88[address] [place] [address] 16154 Cholesterol in VLDL mass conc NOT REPORTED Normal 1-30 [facility] Comment on above: Performed By: #### BECCA MYLES ####[facility] [address]mf[address]emsbfc4[address] [place] [address] Magnesiumon 07-20-2017 Magnesium 1.8 mg/dL Normal 1.6-2.6 [facility] Comment on above: Result Comment: [facility] [address] [place], [place] [id number] ([phone] Performed By: #### T BECCA WOMACK ####[facility] [address]wstuisx[address] [place] [address] NM MYOCARDIAL SPECT REST EXE RCISE OR [...] Revascularization in Patients With Stable Ischemic Heart DiseaseCOMMUNITY [facility] Volume 69, Issue October 2016High risk (>3% annual or AR)1. Severe resting LV dysfunction (LVEF >35%) not [...] e risk (1% to 3% annual or AR)1. Mild/moderate resting LV dysfunction (LVEF 35% to [...] coronarybed.Low Risk (Less than 1% annual or AR)1. Normal or small myocardial perfusion defect at rest or with stressencumbering less than 5% of the myocardium.Interpreted by:JENNI Montañoigned by:Giovanny Lan MD07/20/17inal result Normal [facility] Plan of Careon 07-20-2017 HIM IP Note OR Coding Advisor Normal [facility] HIM IP Note OR Coding Advisor Normal [facility] Procedureon 07-20-2017 HIM IP Note OR Coding Advisor Normal [facility] Progress Noteon 07-20-2017 HIM IP Note OR Coding Advisor Normal [facility] HIM IP Note OR Coding Advisor Normal [facility] TSH w/reflex to FT4on 2017 Thyroid stimulating hormone (TSH) 0.22 m[IU]/L Low 0.30-5.00 [facility] Comment on above: Result Comment: [employer] [address] [place] [address] Performed By: #### T SHX, FT4 ####[facility])[address] [place] [address] Thyroxine, Freeon 07-20-2017 Thyroxine, Free 1.52 ng/dL Normal 0.93-1.70 [facility] Comment on above: Result Comment: [employer] [facility] [place] [address] Performed By: #### T SHX, FT4 ####[facility])[address] [place] [address] 36072 Troponinon 07-20-2017 Troponin I.cardiac mass conc Normal [facility] Comment on above: Result Comment: Refe rence Range: <0.03 Within reference range. 0.03-0.09 Possible myocardial damage.Repeat at appropriate intervals to rule out chronic elevation. >= 0.10 Indicative of myocardial damage.Patients with high levels of Biotin oral intake (i.e >5mg/day) may have falsely decreased Troponin T levels. Samples collected within 8 hours of biotin intake may require additional information for diagnosis.[facility]) [address] [place] [address] Performed By: #### T ROPI, LIPR ####[facility])[address] [place] [address] 08087 Troponin T.cardiac mass conc ug/L Normal <0.03 [facility] Comment on above: Result Comment: Trop onin T results cannot be compared to Troponin-I results. Performed By: #### T BECCA WOMACK ####[facility] [address] [place] [address] Vital Signs Date Time Vital Sign Value Performing Clinician Faci lity 03-06-2024 09:16-0400 Body height 160 cm Jeanine Rine CLERK TYPIST Work Phone: [facility] 03-06-2024 09:16-0400 Body mass index (BMI) [Ratio] 38.9 kg/m2 Jeanine Rine CLERK TYPIST Work Phone: [facility] 03-06-2024 09:16-0400 Body temperature 98.01 [degF] Jeanine Rine CLERK TYPIST Work Phone: [facility] 03-06-2024 09:16-0400 Body weight 99.61 kg Jeanine Rine CLERK TYPIST Work Phone: [facility] 03-06-2024 09:16-0400 Diastolic blood pressure 60 mm[Hg] Jeanine Rine CLERK TYPIST Work Phone: [facility] 03-06-2024 09:16-0400 Heart rate 71 /min Jeanine Rine CLERK TYPIST Work Phone: [facility] 03-06-2024 09:16-0400 Respiratory rate 18 /min Jeanine Rine CLERK TYPIST Work Phone: [facility] 03-06-2024 09:16-0400 SaO2% (BldA) [Mass fraction] 95 % Jeanine Rine CLERK TYPIST Work Phone: [facility] 03-06-2024 09:16-0400 Systolic blood pressure 120 mm[Hg] Jeanine Rine CLERK TYPIST Work Phone: [facility] Healthcare Encounters Encounter Date Encounter Type Care Provider Facility Start: 05-05-2024 End: 05-05-2024 Refill Jeanine L Rine CLERK TYPIST Work Phone: [facility] TSR Comment on above: Type 2 diabetes rochelle itus without complication, without long- term current use of insulin ([facility]) (Primary Dx) Start: 05-04-2024 End: 05-04-2024 Refill Jeanine Whitlock CLERK TYPIST Work Phone: [facility] Comment on above: Type 2 diabetes rochelle itus without complication, without long- term current use of insulin ([facility]) (Primary Dx) Start: 05-03-2024 End: 05-05-2024 Telephone encounter Jeanine Whitlock CLERK TYPIST Work Phone: [facility] Start: 04-30-2024 End: 05-01-2024 Refill Jeanine Trevizoe CLERK TYPIST Work Phone: [facility] Comment on above: Type 2 diabetes rochelle itus with hyperglycemia, with long-term current use of insulin ([facility]) Start: 04-03-2024 End: 04-03-2024 Bamboo flowsheet Amalia Francis PA Work Phone: [facility] Start: 04-03-2024 End: 04-03-2024 Bamboo flowsheet Amalia Francis PA Work Phone: [facility] Start: 04-03-2024 End: 04-03-2024 Office [...] without long- term current use of insulin ([facility]) Start: 03-25-2024 End: 03-25-2024 Refill Jeanine Trevizoe CLERK TYPIST Work Phone: [facility] Comment on above: Environmental and se asonal allergies; Pure hypercholesterolemia ([facility]) Start: 03-10-2024 End: 03-10-2024 Telephone encounter Jeanine Whitlock CLERK TYPIST Work Phone: [facility] Comment on above: update on dexcom and blood sugars; New Medication ordered Start: 03-06-2024 End: 03-06-2024 Bamboo flowsheet Jeanine Trevizoe CLERK TYPIST Work Phone: [facility] Start: 03-06-2024 End: 03-06-2024 Bamboo flowsheet Jeanine Liban Trevizoe CLERK TYPIST Work Phone: [facility] Start: 03-06-2024 End: 03-06-2024 ambulatory JEANINE L ANGELE Not Available Start: 03-06-2024 End: 03-06-2024 Patient encounter status Jeanine Whitlock CLERK TYPIST Work Phone: [facility] Healthcare Work Phone: Start: 03-06-2024 End: 03-06-2024 Periodic preventive med est patient 40-64yrs Jeanine Trevizoe CLERK TYPIST Work Phone: [facility] Comment on [...] Start: 01-22-2024 End: 01-22-2024 ambulatory JEANINE L ANGELE Not Available Start: 12-18-2023 End: 12-18-2023 ambulatory POLO DIAZ Not Available Start: 11-19-2023 End: 11-19-2023 ambulatory JEANINE WHITLOCK Not Available Start: 10-11-2023 End: 10-11-2023 ambulatory POLO DIAZ Not Available Start: 07-15-2023 End: 07-18-2023 [facility] JEANINE WHITLOCK [facility] Start: 07-15-2023 End: 07-17-2023 Subsequent hospital visit by physician [facility] Dexa Room At [facility] Dexa Scan Comment on above: Age-related osteopor osis without current pathological fracture Start: 05-24-2023 End: 05-24-2023 ambulatory JEANINE WHITLOCK Not Available Start: 05-10-2023 End: 05-11-2023 ambulatory TYLER RAMEY [facility] Start: 12-27-2022 End: 12-28-2022 [facility] JEANINE WHITLOCK [facility] Start: 12-19-2022 End: 12-20-2022 ambulatory POLO DIAZ [facility] Start: 12-19-2022 End: 12-19-2022 Subsequent hospital visit by physician Jeanine Whitlock Work Phone: [facility] Start: 12-06-2020 End: 12-08-2020 Subsequent hospital visit by physician Maddie Sewell Dr Room 2 [facility] Radiology Comment on above: Mild intermittent as thma without complication Start: 07-20-2017 End: 07-22-2017 Evaluation and management of inpatient JEANINE WHITLOCK [facility] Procedures Date Procedure Procedure Detail Performing Clinician Start: 04-03-2024 End: 04-03-2024 DESTRUCTION OF LESION Amalia DOCKERY Work Phone: Start: 04-03-2024 CRYOTHERAPY SKIN LESION Amalia DOCKERY Work Phone: Start: 07-15-2023 Dxa bone density thomas dy 1/> sites axial skel Tyler Ramey MD Work Phone: Start: 05-24-2023 Mammography Jeanine Whitlock CLERK TYPIST Work Phone: Start: 12-19-2022 Comprehensive metabo lic panel Polo Escobedo ADMINISTRATIVE PROFESSIONAL - CLERK TYPIST Work Phone: Start: 12-19-2022 Lipid panel Pool Lauren hamiltonbasilia ADMINISTRATIVE PROFESSIONAL - CLERK TYPIST Work Phone: Start: 12-19-2022 Urine albumin quantitative Polo Escobedo ADMINISTRATIVE PROFESSIONAL - CLERK TYPIST Work Phone: Start: 12-06-2020 Radiologic exam ches t 2 views Jeanine L Rine Work Phone: Start: 02-07-2018 Colonoscopy Jeanine Rine CLERK TYPIST Work Phone: Start: 01-23-2018 Colonoscopy Jeanine Rine Work Phone: Start: 07-22-2017 BI MANAGER REPORT JEANINE R INE Start: 07-22-2017 DISCHARGE PATIENT JEANINE RINE Start: 07-22-2017 INITIATE OXYGEN THER APY PROTOCOL JEANINE RINE Start: 07-22-2017 BEDREST JEANNIE RINE Start: 07-22-2017 DIET CARDIAC JEANINE RINE [...] 02-08-2028 Screening for malignant neoplasm of colon [facility] Start: 01-24-2028 Screening for malignant neoplasm of colon [facility] Start: 02-13-2027 DTaP/Tdap/Td vaccine (3 - Td or Tdap) DTaP/Tdap/Td vaccine (3 - Td or Tdap) [facility] Start: 06-21-2025 Glaucoma screening Diabetes: Retinopathy Screening [facility] Start: 05-24-2025 Screening for malignant neoplasm of breast Breast cancer screen [facility] Start: 04-05-2025 End: 04-05-2025 Patient encounter procedure 04/05/2025 9:50 AM EST Office Visit [facility] [address] [place] [address] Amalia Francis, PA [address] [place] [address] [facility] Start: 11-05-2024 Urine screening for protein Diabetes: Urine Protein Screening [facility] Start: 06-05-2024 Hemoglobin A1c measurement Diabetes: Hemoglobin A1C [facility] Start: 05-24-2024 Screening for malignant neoplasm of breast Mammogram [facility] Start: 05-11-2024 End: 05-11-2024 Patient encounter procedure 05/11/2024 10:55 AM EST Office Visit [facility] [address] [place] [address] Alexus Macie Gerry, ADMINISTRATIVE PROFESSIONAL-SYSTEMS [employer] [address] [place] [address] [facility] Start: 04-06-2024 End: 03-06-2025 Hemoglobin A1c/Hemoglobin.total in Blood Hemoglobin A1c Lab Today Type 2 diabetes mellitus without complication, without long-term current use of insulin ([facility]) Expected: 04/06/2024 (Approximate), Expires: 03/06/2025 [facility] Work Phone: Comment on above: Expected: 04/06/2024 (Approximate), Expi res: 03/06/2025 Start: 04-03-2024 End: 04-03-2024 Patient encounter procedure [facility] Comment on above: Arrived Start: 02-02-2024 Influenza vaccination Influenza Vaccine (#1) [facility] Start: 12-20-2023 GFR test (Diabetes, CKD 3-4, OR last GFR 15-59) GFR test (Diabetes, CKD 3-4, OR last GFR 15-59) [facility] Start: 12-20-2023 Hemoglobin A1c measurement A1C test (Diabetic or Prediabetic) [facility] Start: 12-20-2023 Lipid panel Lipids [facility] [employer] [facility] Start: 12-20-2023 Urine screening for protein Diabetic Alb to Cr ratio (uACR) test [facility] [employer] Start: 01-01-2023 Influenza vaccination Flu vaccine (#1[facility] Start: 02-01-2021 Influenza vaccination Flu vaccine (#1) [facility] Phone: Start: 12-02-2020 COVID-19 Vaccine (3 - Booster for Moderna series) COVID-19 Vaccine (3 - Booster for Moderna series) [facility] [employer] Start: 01-18-2020 Screening for malignant neoplasm of breast Breast cancer screen [facility] [employer] Start: 07-23-2018 Creatinine measurement Creatinine monitoring [facility] Phone: Start: 07-23-2018 GFR test (Diabetes, CKD 3-4, OR last GFR 15-59) GFR test (Diabetes, CKD 3-4, OR last GFR 15-59) [facility] Start: 07-23-2018 Potassium monitoring Potassium monitoring [facility] Phone: Start: 07-20-2018 Lipid panel [facility] [employer] Start: 07-01-2018 Pneumococcal 0-64 years Vaccine (2 - PPSV23 if available, else PCV20) Pneumococcal 0-64 years Vaccine (2 - PPSV23 if available, else PCV20) [facility] [employer] Start: 07-01-2018 Pneumococcal 0-64 years Vaccine (2 - PPSV23 or PCV20) Pneumococcal 0-64 years Vaccine (2 - PPSV23 or PCV20) [facility] [employer] Start: 2017 Shingles Vaccine (1 of 2) Shingles Vaccine (1 of 2) [facility] [employer] Start: 2012 Screening for malignant neoplasm of colon [facility] [employer] Start: 06-15-2012 Hemoglobin A1c measurement A1C test (Diabetic or Prediabetic) [facility] [employer] Start: 1997 Screening for malignant neoplasm of cervix [facility] [employer] Start: 1988 Screening for malignant neoplasm of cervix [facility] [employer] Start: 1986 Hepatitis B vaccine (1 of 3 - Risk 3-dose series) Hepatitis B vaccine (1 of 3 - Risk 3-dose series) [facility] [employer] Start: 1985 Diabetic microalbuminuria test Diabetic microalbuminuria test [facility] Phone: Start: 1985 Glaucoma screening Diabetic retinal exam [facility] [employer] Start: 1985 Hepatitis C screening Hepatitis C screen [facility] Start: 1985 Urine screening for protein Diabetic Alb to Cr ratio (uACR) test [facility] Start: 1982 HIV screening HIV screen [facility] [facility] Start: 1979 Depression Monitoring Depression Monitoring [facility] [employer] Start: 1977 Diabetic foot examination Diabetic foot exam [facility] [employer] Start: 1977 Diabetic retinal exam Diabetic retinal exam [facility] [employer] Phone: Start: 1973 Pneumococcal 0-64 years Vaccine (1 of 2 - PPSV23) Pneumococcal 0-64 years Vaccine (1 of 2 - PPSV23) [facility] [employer] Phone: Start: 01-23-1968 COVID-19 Vaccine (#1) COVID-19 Vaccine (#1) [facility] [employer] Start: 1967 Hepatitis B vaccine (1 of 3 - 3-dose series) Hepatitis B vaccine (1 of 3 - 3-dose series) [facility] Start: 1967 Hepatitis C screening Hepatitis C screen [facility] [employer] Phone: Start: 1967 Screening for malignant neoplasm of colon [facility] End: 12-19-2022 Hemoglobin A1c/Hemoglobin.total in Blood [facility] Work Phone: Comment on above: Once for 1 Occurrences starting 12/20/19 23 until 12/19/2022 Immunizations Immunization Date Immunization Notes Care Provider Nicolasa rivera 03-06-2024 influenza, injectabl e, quadrivalent, preservative free Jeanine Rine CLERK TYPIST Work Phone: [facility] 05-10-2023 influenza, injectabl e, quadrivalent, preservative free Jeanine Rine CLERK TYPIST Work Phone: [facility] 05-10-2023 influenza virus vacc ine, unspecified formulation Jeanine Rine CLERK TYPIST Work Phone: [facility] 04-13-2022 influenza, injectabl e, quadrivalent, preservative free Jeanine Rine CLERK TYPIST Work Phone: [facility] 06-09-2021 zoster vaccine recombinant Jeanine Rine CLERK TYPIST Work Phone: [facility] 03-10-2021 influenza, injectabl e, quadrivalent, preservative free Jeanine Rine CLERK TYPIST Work Phone: [facility] 03-10-2021 zoster vaccine recombinant Jeanine Rine CLERK TYPIST Work Phone: [facility] 03-04-2020 influenza, injectabl e, quadrivalent, preservative free Jeanine Rine CLERK TYPIST Work Phone: [facility] 05-06-2018 pneumococcal conjuga te vaccine, 13 valent Jeanine Rine CLERK TYPIST Work Phone: [facility] 04-03-2017 influenza, injectabl e, quadrivalent, preservative free Jeanine Rine CLERK TYPIST Work Phone: [facility] 02-13-2017 tetanus toxoid, redu shelby diphtheria toxoid, and acellular pertussis vaccine, adsorbed Jeanine Rine CLERK TYPIST Work Phone: [facility] 05-16-2006 hepatitis B vaccine, adult dosage Jeanine Rine CLERK TYPIST Work Phone: [facility] 07-10-2003 hepatitis B vaccine, adult dosage Jeanine Rine CLERK TYPIST Work Phone: [facility] 12-12-1995 hepatitis B vaccine, adult dosage Jeanine Rine CLERK TYPIST Work Phone: [facility] 09-19-1995 hepatitis B vaccine, adult dosage Jeanine Rine CLERK TYPIST Work Phone: [facility] Payers Date Payer Category Payer Managed Care HMO (unspecified) [id number] 2023 Private Health Insurance [id number] 2019 Unknown [id number] 2014 Unknown [id number] 1967 Unknown [id number] [id number] 1967 Unknown [id number] [id number] 1967 Unknown [id number] 2.16.840.1.333665.3.579.2.173 1967 Unknown [id number] 2.16.840.1.922362.3.579.2.174 1967 Unknown [id number] 2.16.840.1.755400.3.579.2.1259 1967 Unknown [id number] 2.16.840.1.504607.3.579.2.1259 1967 Unknown [id number] 2.16.840.1.120698.3.579.2.1259 1967 Unknown [id number] 2.16.840.1.915742.3.579.2.1259 1967 Unknown [id number] 2.16.840.1.630687.3.579.2.1259 1967 Unknown [id number] 2.16.840.1.004124.3.579.2.1259 1967 Unknown [id number] 2.16.840 .1.961028.3.579.2.1259 1967 Unknown [id number] 2.16.840 .[id number] Social History Date Type Detail Facility Start: 01-23-2018 End: 12-19-2022 Tobacco smoking status TNIS Never smoker [facility] Start: 01-23-2018 End: 12-19-2022 Tobacco use and exposure Never used [email or web address] Start: 01-23-2018 Alcohol intake Current non-drinker of alcohol (finding) [facility] Phone: Start: 1965 Sex Assigned At Not on file [facility] Phone: Start: 01-25-2019 End: 01-22-2024 History of [...] to any clubs or organizations such as judaism groups, unions, fraternal or athletic groups, or [...] Equipment Origin al Text Equipment Identifier Dates [id number], [id number] Start: 11-19-2023 Clinical Notes 03-06-2024 to 05-05-2024 Telephone Encounter - Jeanine Whitlock NP - 05/05/2024 4:25 PM ESTTelephone Encounter - Jeanine Whitlock NP - 05/05/2024 4:25 PM ESTTelephone Encounter - Jeanine Whitlock NP - 05/04/2024 6:29 PM EST Note Date & Type Note Facility 05-05-2024 Telephone encount er Note Resent correct rx [facility] 05-05-2024 Miscellaneous Notes Formattin g of this note might be different from the original. Resent correct rx documented in this encounter [facility] 05-04-2024 Telephone encount er Note Increase to ozempic 1 mg dose per emessage request. [facility] 05-04-2024 Miscellaneous Notes Formattin g of this note might be different from the original. Increase to ozempic 1 mg dose per emessage request. documented in this encounter [facility] 04-03-2024 History of Presen t illness Narrative [...] limited to risks of scarring, darker or measurement coordinator pigmentary changes, recurrence, incomplete removal and infection. [...] Visit: 1 year documented in this encounter [facility] 03-27-2024 Telephone encount er Note Pharmacy requesting new RX for losartan for pt. [facility] 03-27-2024 Miscellaneous Notes Formattin g of this note might be different from the original. Pharmacy requesting new RX for losartan for pt. documented in this encounter [facility] 03-10-2024 Telephone encount er Note noted [facility] 03-10-2024 Miscellaneous Notes Formattin g of this [...] do about this. documented in this encounter [facility] 03-10-2024 Telephone encount er Note Spoke with Mariella and notified her and she reports she has taken the Ozempic previously however after her sugars got better her insurance stopped paying for it. Answered the PA questions online and attached progress notes and A1C. [facility] 03-10-2024 Telephone encount er Note Please let mariella know that jeanine sent ozempic once weekly to the local pharmacy for her. This triggered a PA so we will need to see what that looks like. Call if any issues swallowing or abd pain. Beware of constipation. Call if questions. Continue jardiance and metformin. [facility] 03-10-2024 Telephone encount er Note She has been wearing the dexcom and her average sugars are running 196. Patient states that she has been eating better, but the alarm that her sugar is high will still go off. She is not sure what more she should do about this. [facility] 03-06-2024 History of Presen t illness Narrative [...] mo aic prior. documented in this encounter [facility] 03-06-2024 Instructions Jeanine Whitlock NP - 03/06/2024 [...] protein before carbs documented in this encounter [facility] Evaluation note Diagnosis Mild intermittent asthma without complication Unspecified asthma documented in this encounter [facility] Phone: evaluation note* Diagnosis Age-related osteoporosis without current pathological fracture Senile osteoporosis [facility] Diagnosis Type 2 diabetes mellitus without complication, without long-term current use of insulin ([facility])- Primary Wellness examination Type 2 diabetes mellitus with hyperglycemia, with long-term current use of insulin ([facility]) Acute post-traumatic stress disorder ([facility]) ENRIQUE (generalized anxiety disorder) ([facility]) Generalized anxiety disorder Severe single current episode of major depressive disorder, without psychotic features ([facility]) Acquired hypothyroidism ([facility]) Unspecified hypothyroidism Panic disorder with agoraphobia ([facility]) Agoraphobia with panic disorder Pure hypercholesterolemia ([facility]) Pure hypercholesterolemia Primary hypertension ([facility]) Unspecified essential hypertension Mild intermittent asthma without complication ([facility]) Immunization due Hallux valgus (acquired), left foot Degenerative cervical disc Primary insomnia Persistent disorder of initiating or maintaining sleep Vitamin D deficiency Hallux rigidus, left foot Environmental and seasonal allergies BMI 38.0-38.9,adult [facility] Diagnosis Type 2 diabetes mellitus with hyperglycemia, with long-term current use of insulin ([facility])- Primary [facility] Diagnosis Environmental and seasonal allergies Pure hypercholesterolemia ([facility]) Pure hypercholesterolemia [facility] Diagnosis Type 2 diabetes mellitus without complication, without long-term current use of insulin ([facility]) [facility] encounter [facility]* Diagnosis Seborrheic keratosis- Primary Melanocytic nevus of trunk Benign neoplasm of skin of trunk, except scrotum Inflamed seborrheic keratosis Surgery, elective Unspecified elective surgery for purposes other than remedying health states [facility] Diagnosis Type 2 diabetes mellitus with hyperglycemia, with long-term current use of insulin ([facility]) [facility] Diagnosis Type 2 diabetes mellitus without complication, without long-term current use of insulin ([facility])- Primary documented in this encounter [facility] Summary Purpose Family History No Family History Records FoundNo Family History Records FoundNo Family History Records FoundNo Family History Records Found Advance Directives Documents on File Type Date Recorded Patient Card Tape Converter Operator Expl anation ACP-Advance Directive ACP-Power of Digital Media Specialist Latest Code Status on File Code Status [...] AXIAL SKELETON Tyler Ramey MD [address] [place] [address] Referral ID Status Reason Start Date Expiration Date V isits Requested Visits Authorized [id number] Pending Review 05/24/2023 05/23/2024 1 1 Specialty Diagnoses / Procedures Referred By Contac t Referred To Contact Diagnoses Type 2 diabetes mellitus without complication, without long-term current use of insulin ([facility]) Jeanine Whitlock NP [address] [facility] [address] [place] [id number] Referral ID Status Reason Start Date Expiration Date Visits Re quested Visits Authorized [id number] Closed 1 1 Specialty Diagnoses / Procedures Referred By Contac t Referred To Contact Diagnoses Type 2 diabetes mellitus with hyperglycemia, with long-term current use of insulin ([facility]) Jeanine Whitlock NP [address] [address] Referral ID Status Reason Start Date Expiration Date V isits Requested Visits Authorized [id number] Authorized 03/10/2024 03/10/2027 1 1 Additional Source Comments INFORMATION SOURCE (unrecogn ized section and content) DATE CREATED AUTHOR 11/22/2017 [facility] DATE CREATED AUTHOR AUTHOR'S ORGANIZ ATION 05/15/2023 [facility] DATE CREATED AUTHOR AUTHOR'S ORGANIZ ATION 07/18/2023 [facility] DATE CREATED AUTHOR AUTHOR'S ORGANIZ ATION 04/05/2024 [facility] dical Specialists EPIC Care Teams (unrecognized sec tion and content) Nonfarm Animal Caretaker Relationship Specialty Start Date End Date Jeanine Whitlock [address] [address] PCP - General 04/16/16 Nonfarm Animal Caretaker Relationship Specialty Start Date End Date Jeanine Whitlock [address] [address] PCP - General 04/16/16 Nonfarm Animal Caretaker Relationship Specialty Start Date End Date Jose Putnam DO [address] [place] [address] PCP - General Family Medicine 11/09/22 Jeanine Whitlock CLERK TYPIST [address] [place] [address] Nurse Practitioner Family Medicine 11/09/22 Nonfarm Animal Caretaker Relationship Specialty Start Date End Date Jose Putnam DO [address] [place] [address] PCP - General Family Medicine 11/09/22 Jeanine Whitlock, CLERK TYPIST [address] [place] [address] Nurse Practitioner Family Medicine 11/09/22 Nonfarm Animal Caretaker Relationship Specialty Start Date End Date Jose Putnam DO [address] [place] [address] PCP - General Family Medicine 11/09/22 Jeanine Whitlock, CLERK TYPIST [address] [place] [address] Nurse Practitioner Family Medicine 11/09/22 Nonfarm Animal Caretaker Relationship Specialty Start Date End Date Jose Putnam DO [address] [place] [address] PCP - General Family Medicine 11/09/22 Jeanine Whitlock, CLERK TYPIST [address] [place] [address] Nurse Practitioner Family Medicine 11/09/22 Nonfarm Animal Caretaker Relationship Specialty Start Date End Date Jose Putnam DO [address] [place] [address] PCP - General Family Medicine 11/09/22 Jeanine Whitlock, CLERK TYPIST [address] [place] [address] Nurse Practitioner Family Medicine 11/09/22 Nonfarm Animal Caretaker Relationship Specialty Start Date End Date Jose Putnam DO [address] [place] [address] PCP - General Family Medicine 11/09/22 Jeanine Whitlock, CLERK TYPIST [address] [place] [address] Nurse Practitioner Family Medicine 11/09/22 Nonfarm Animal Caretaker Relationship Specialty Start Date End Date Jose Putnam DO [address] [place] [address] PCP - General Family Medicine 11/09/22 Jeanine Whitlock, CLERK TYPIST [address] [place] [address] Nurse Practitioner Family Medicine 11/09/22 Nonfarm Animal Caretaker Relationship Specialty Start Date End Date Jose Putnam DO [address] [place] [address] PCP - General Family Medicine 11/09/22 Jeanine Whitlock, CLERK TYPIST [address] [place] [address] Nurse Practitioner Family Medicine 11/09/22 Nonfarm Animal Caretaker Relationship Specialty Start Date End Date Jose Putnam DO [address] [place], [place] [id number] PCP - General Family Medicine 11/09/22 Jeanine Whitlock NP [address] [place] [id number] Nurse Practitioner Family Medicine 11/09/22 Reason for Visit (unrecogniz ed section and content) Specialty Diagnoses / Procedures Referred By Contac t Referred To Contact Radiology Diagnoses Age-related osteoporosis without current pathological fracture Procedures DEXA BONE DENSITY 2 SITES DEXA BONE DENSITY AXIAL SKELETON Tyler Ramey MD [address] [place] [address] Referral ID Status Reason Start Date Expiration Date V isits Requested Visits Authorized [id number] Pending Review 05/24/2023 05/23/2024 1 1 Reason [...] BE BASED ON THE PRIMARY CLINICAL RECORDS. [employer] provides no warranty or guarantee of the accuracy or completeness of information in this document.
== END 2024-05-07 13:20 | disposition home or self-care (01) ==
LOC: RAD 13:19
PROVIDERS: PCP Nurse Practitioner; Visit Provider Physician Assistant
DX: M79.671 Pain in right foot (principal); M24.674 Ankylosis, right foot
CPT/HCPCS: 73630

== ENCOUNTER 2024-05-21 13:29 | Outpatient (OUT) | payer OTHER, SELFPAY ==
--- OUTSIDE RECORDS SUMMARY | 2024-05-21 13:35 | XMS_ITS | CCD ---
Author Organization [facility] Inform ion Partnership [facility] Care Team Providers Care Sensitometrist Name Role Phone RINE, JEANINE L Unavailable [...] Unavailable Jose Putnam DO Primary Care Provider [phone] Rinsj DIRECTOR [employer]TER[employer] DATA ARCHITECTURE, Jeanine L Unavailable POLO DIAZ Attending Unavailable RINE, JEANINE L Attending Unavailable RINE, JEANINE L Attending Unavailable POLO DIAZ Attending Unavailable RINE, JEANINE L Attending Unavailable RINE, JEANINE L Attending Unavailable RINE, JEANINE L Referring Unavailable AMALIA FRANCIS Attending Unavailable Allergies Allergy Classification Reported Allergen(s) Allergy Type Date of Onset Reaction(s) Facility Unclassified (14 sources) Iodides Propensity to adverse reactions to drug 3 [facility] Work Phone: Unclassified (14 sources) Shellfish-Derive d Products Propensity to adverse reactions to drug 3 [facility] (2 sources) Seafood Propensity to adverse reactions to drug 3 [email or web address] (15 sources) Iodides Propensity to adverse reactions to drug 3 Hives [email or web address] Work Phone: (13 sources) Lisinopril Allergy to substance 3 Cough [facility] Medications Current Medications Medication Drug Class(es) Dates Sig (Normalized) Sig (Original) ALPRAZolam 0.25 mg oral tablet (16 sources) Benzodiazepine ALPRAZolam (Xana x) 0.25 MG tablet Indications: Anxiety Take 0.25 mg by mouth as needed at bedtime for anxiety. Active amLODIPine 5 mg oral tablet (13 sources) Dihydropyridine Calcium [employer] Ayanna Start: 3 [...] Active Continuous Glucose Sensor (Dexcom G7 Sensor) [facility] (12 sources) Start: 03-16-20 24 Continuous Glucose Sensor (Dexcom G7 Sensor) [facility] Indications: Type 2 diabetes mellitus without complication, without long-term current use of insulin (CMS/HCC) 1 Units every 14 (fourteen) days 2 each 11 03/16/2024 Active Start: 03-06-2024 Continuous Glu cose Sensor (Dexcom G7 Sensor) [facility] Indications: Type 2 [...] complication, without long-term current use of insulin ([facility]) Take 1 tablet (25 mg) by mouth Daily 30 tablet 11 03/06/2024 03/06/2025 Active Start: 01-22-2024 End: 01-21-2025 take 1 tablet by mouth once daily empagliflozin (Jardiance) 10 MG Indications: Type 2 diabetes mellitus without complication, without long-term current use of insulin ([facility]) Take 1 tablet (10 mg) [...] Synthroid 100 MCG tablet Indications: Acquired hypothyroidism ([facility]) TAKE 1 TABLET IN THE [...] 1 tablet by mouth once daily 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 (Theragran-M) tablet Take 1 tablet [...] and consent obtained Hemostasis achieved with: electrodesiccation [facility] [employer] e Destruction method comment: Snip removal Anesthesia: the lesion was anesthetized in a standard fashion Anesthetic: 1% lidocaine w/ epinephrine 1-100,000 buffered w/ 8.4% NaHCO3 Hemostasis achieved with: electrodesiccation Outcome: patient tolerated procedure well with no complications [facility] [employer] [facility] DEXA BONE DENSITY 2 SITESon 07-17-2023 DEXA BONE DENSITY 2 SITES DEXA BONE DENSITY 2 SITES 07/15/2023 12:21 PM EST Indication: Screening. Comparison: Accurate comparison is not possible due to differences in equipment. [employer]. Lumbar spine and bilateral hips. Lumbar spine [...] Bernardo Squires MD 07/17/23 Final result Normal [facility] DXA Bone [Mass/Area] Bone de nsityon 07-17-2023 [...] not possible due to differences in equipment. [employer]. Lumbar spine and bilateral hips. Lumbar spine [...] Some evidence of elevated bone mineral density [email or web address] DXA Bone [Mass/Area] Bone de nsityOrdered By: Bernardo Squires on 07-17-2023 [email or web address] Work Phone: DXA Bone [Mass/Area] Bone de nsityon 07-15-2023 Radiology Study observation (narrative) [facility] [employer] BI MAMMOGRAM SCREENING TOMOS YNTHESIS BILATERALon 05-24-2023 [...] IS VERY IMPORTANT TO YOUR HEALTH. THE [employer] GUIDELINES RECOMMEND THAT WOMEN 40 [...] Not Available Comment on above: Order Comment: [facility] CBC with Diffon 12-27-2022 Abs. Basophil 0.06 k/uL Normal 0.00-0.[address] [facility] Comment on above: Performed By: #### C DP #### [address] [place] [address] Electrical Line Mechanic: Gerson Barton MD Abs.Imm.Granulocyte 0.08 k/uL Normal 0.00-0.30 [facility] Comment on above: Performed By: #### C DP #### [address] [place] [id number] Electrical Line Mechanic: Gerson Barton MD Abs.Neutrophil (Seg) 6.19 k/uL Normal 1.50-8.10 [facility] Comment on above: Performed By: #### C DP #### [address] [place] [address] Electrical Line Mechanic: Gerson Barton MD Basophils/100 WBC (Bld) 1 % Normal 0-2 [facility] Comment on above: Performed By: #### C DP #### [address] [place], [facility] Electrical Line Mechanic: Gerson Barton MD Eosinophils (Bld) [#/Vol] 0.12 10*3/uL Normal 0.00-0.44 [facility] Comment on above: Performed By: #### C DP #### [address] [place] [id number] Electrical Line Mechanic: Gerson Barton MD Eosinophils/100 WBC (Bld) 1 % Normal 1-4 [facility] Comment on above: Performed By: #### C DP #### [facility] [address] [place], [place] [phone] Electrical Line Mechanic: Gerson Barton MD Erythrocyte distribution width (RBC) [Ratio] 14.0 % Normal 11.8-14.4 [facility] Comment on above: Performed By: #### C DP #### [facility] [address] [place] [id number] Electrical Line Mechanic: Gerson Barton MD Hematocrit (Bld) [Volume fraction] 44.1 % Normal 36.3-47.1 [facility] Comment on above: Performed By: #### C DP #### [address] [place], [facility] Electrical Line Mechanic: Gerson Barton MD Hemoglobin (Bld) [Mass/Vol] 14.5 g/dL Normal 11.9-15.1 [facility] Comment on above: Performed By: #### C DP #### [facility] [address] [place] [address] Dr[place], [place] [phone] Electrical Line Mechanic: Gerson Barton MD Immature granulocytes/100 WBC (Bld) 1 % High 0 [facility] Comment on above: Performed By: #### C DP #### [address] [place], [place] [phone] Electrical Line Mechanic: Gerson Barton MD Lymphocytes (Bld) [#/Vol] 3.02 10*3/uL Normal 1.10-3.70 [facility] Comment on above: Performed By: #### C DP #### [facility] [address] [place], [place] [phone] Electrical Line Mechanic: Gerson Barton MD Lymphocytes/100 WBC (Bld) 29 % Normal 24-43 [facility] Comment on above: Performed By: #### C DP #### [facility] [address] [place] [address] Electrical Line Mechanic: Gerson Barton MD MCH (RBC) [Entitic mass] 29.2 pg Normal 25.2-33.5 [facility] Comment on above: Performed By: #### C DP #### [address] [place] [address] Electrical Line Mechanic: Gerson Barton MD MCHC (RBC) [Mass/Vol] 32.9 g/dL Normal 28.4-34.8 [facility] Comment on above: Performed By: #### C DP #### [address] [place] [address] Electrical Line Mechanic: Gerson Barton MD MCV (RBC) [Entitic vol] 88.7 fL Normal 82.6-102.9 [facility] Comment on above: Performed By: #### C DP #### [address] [place], [facility] Electrical Line Mechanic: Gerson Barton MD Monocytes (Bld) [#/Vol] 0.98 10*3/uL Normal 0.10-1.20 [facility] Comment on above: Performed By: #### C DP #### [address] [place], [facility] Electrical Line Mechanic: Gerson Barton MD Monocytes/100 WBC (Bld) 9 % Normal 3-12 [facility] Comment on above: Performed By: #### C DP #### [address] [place], [facility] Electrical Line Mechanic: Gerson Barton MD Neutrophil (Seg) 59 % Normal 36-65 [facility] Comment on above: Performed By: #### C DP #### [address] [place], [facility] Electrical Line Mechanic: Gerson Barton MD NRBC Automated 0.0 per 100 WBC Normal 0.0 [facility] Comment on above: Performed By: #### C DP #### [facility] [address] [place], [place] [phone] Electrical Line Mechanic: Gerson Barton MD Platelet mean volume (Bld) [Entitic vol] 9.3 fL Normal 8.1-13.5 [facility] Comment on above: Performed By: #### C DP #### [address] [place] [phone] Electrical Line Mechanic: Gerson Barton MD Platelets (Bld) [#/Vol] 365 10*3/uL Normal 138-453 [facility] Comment on above: Performed By: #### C DP #### [address] [place], [place] 1685683 Electrical Line Mechanic: Gerson Barton MD RBC (Bld) [#/Vol] 4.97 10*6/uL Normal 3.95-5.11 [facility] Comment on above: Performed By: #### C DP #### [address] [place], [place] [phone] Electrical Line Mechanic: Gerson Barton MD WBC (Bld) [#/Vol] 10.5 10*3/uL Normal 3.5-11.3 [facility] Comment on above: Performed By: #### C DP #### [address] [place], [place] [phone] Electrical Line Mechanic: Gerson Barton MD Hemoglobin A1Con 12-20-2022 Glucose [Mass/Vol] 126 mg/dL Normal [facility] Comment on above: Result Comment: The ADA and AACC recommend providing the estimated average glucose result to permit better patient understanding of their HBA1c result. Performed By: #### C P, CDP, TSHX #### [address] [place] [address] Electrical Line Mechanic: Gerson Barton MD #### URNMAB, FT4, GLYHGB, VD25, LIPR #### [place] [address] [place], [place] 0125608 Electrical Line Mechanic: Asad Draper MD HbA1c (Bld) [Mass fraction] 6.0 % Normal 4.0-6.0 [facility] Comment on above: Performed By: #### C P, CDP, TSHX #### [address] [place], [place] [phone] Electrical Line Mechanic: Gerson Barton MD #### URNMAB, FT4, GLYHGB, VD25, LIPR #### [address] [id number] Electrical Line Mechanic: Asad Draper MD Lipid Profileon 12-20-2022 Cholesterol [Mass/Vol] 115 mg/dL Normal <200 [facility] Comment on above: Result Comment: Cholesterol Guidelines: <200 Desirable 200-240 Borderline >240 Undesirable Performed By: #### C P, CDP, TSHX #### [address] [place], [place] [phone] Electrical Line Mechanic: Gerson Barton MD #### URNMAB, FT4, GLYHGB, VD25, LIPR #### [address] [id number] Electrical Line Mechanic: Asad Draper MD Cholesterol in HDL [Mass/Vol] 49 mg/dL Normal >40 [facility] Comment on above: Result Comment: HDL Guidelines: <40 Undesirable 40-59 Borderline >59 Desirable Performed By: #### C P, CDP, TSHX #### [address] [place], [place] [phone] Electrical Line Mechanic: Gerson Barton MD #### URNMAB, FT4, GLYHGB, VD25, LIPR #### [address] [place] [place], [place] 4495708 Electrical Line Mechanic: Asad Draper MD Cholesterol in LDL [Mass/Vol] 32 mg/dL Normal 0-130 [facility] Comment on above: Result Comment: LDL Guidelines: <100 Desirable 100-129 Near to/above Desirable 130-159 Borderline >159 Undesirable Direct (measured) LDL and calculated LDL are not interchangeable tests. Performed By: #### C P, CDP, TSHX #### [address] [place], [place] [phone] Electrical Line Mechanic: Gerson Barton MD #### URNMAB, FT4, GLYHGB, VD25, LIPR #### [address] [place], [place] [phone] Electrical Line Mechanic: Asad Draper MD Cholesterol.total/Ch olesterol in HDL [Mass ratio] 2.3 {ratio} Normal <5 [facility] Comment on above: Performed By: #### C PNIYA, TSHX #### [address] [place], [place] [phone] Electrical Line Mechanic: Gerson Barton MD #### URNMAB, FT4, GLYHGB, VD25, LIPR #### [place] [address] [place], [place] 1409708 Electrical Line Mechanic: Asad Draper MD Triglyceride [Mass/Vol] 171 mg/dL High <150 [facility] Comment on above: Result Comment: Triglyceride Guidelines: <150 Desirable 150-199 Borderline 200-499 High >499 Very high Based on AHA Guidelines for fasting triglyceride, March 2012. Performed By: #### C P, NIYA, TSHX #### [address] [place], [place] [phone] Electrical Line Mechanic: Gerson Barton MD #### URNMAB, FT4, GLYHGB, VD25, LIPR #### [facility] [address] [place] [address] Electrical Line Mechanic: Asad Draper MD Microalb.,Random Uron 2022 Microalb/Creat Ratio 178 mcg/mg creat High <25 [facility] Comment on above: Performed By: #### C P, CDP, TSHX #### [address] [place], [place] [phone] Electrical Line Mechanic: Gerson Barton MD #### URNMAB, FT4, GLYHGB, VD25, LIPR #### [address] [address] Electrical Line Mechanic: Asad Draper MD Microalbumin conc. 764 mg/L High <21 [facility] Comment on above: Performed By: #### C P, CDP, TSHX #### [address] [place], [place] 0446983 Electrical Line Mechanic: Gerson Barton MD #### URNMAB, FT4, GLYHGB, VD25, LIPR #### [address] [address] Electrical Line Mechanic: Asad Draper MD Creatinine [Mass/Vol] 428.7 mg/dL High 28.0-217.0 [facility] Comment on above: Performed By: #### C P, CDP, TSHX #### [address] [place], [place] [phone] Electrical Line Mechanic: Gerson Barton MD #### URNMAB, FT4, GLYHGB, VD25, LIPR #### [address] [address] Electrical Line Mechanic: Asad Draper MD Thyroxine, Freeon 12-20-2022 Thyroxine, Free 1.5 ng/dL Normal 0.9-1.7 [facility] Comment on above: Performed By: #### C P, CDP, TSHX #### [address] [place], [place] [phone] Electrical Line Mechanic: Gerson Barton MD #### URNMAB, FT4, GLYHGB, VD25, LIPR #### [address] [id number] Electrical Line Mechanic: Asad Draper MD Vitamin D 25 OHon 12-20-2022 Vitamin D 25 OH 59.0 ng/mL Normal >29.9 [facility] Comment on above: Result Comment: Reference Range: Vitamin D status Range Deficiency <20 ng/mL Mild Deficiency 20-30 ng/mL Sufficiency 30-100 ng/mL Toxicity >100 ng/mL Performed By: #### C P, CDP, TSHX #### [facility] [address] [place] [address] Electrical Line Mechanic: Gerson Barton MD #### URNMAB, FT4, GLYHGB, VD25, LIPR #### [facility] [address] [place], [place] [phone] Electrical Line Mechanic: Asad Draper MD CBC with Auto Differentialon 12-19-2022 Basophils (Bld) [#/Vol] 0.05 10*3/uL [facility] Basophils/100 WBC (Bld) 0 % 0 - 2 % [facility] Eosinophils (Bld) [#/Vol] 0.07 10*3/uL [facility] Eosinophils/100 WBC (Bld) 1 % 1 - 4 % [facility] Erythrocyte distribution width (RBC) [Ratio] 13.8 % 11.8 - 14.4 % [facility] Hematocrit (Bld) [Volume fraction] 47.2 % High 36.3 - 47.1 % [facility] Hemoglobin (Bld) [Mass/Vol] 15.9 g/dL High 11.9 - 15.1 g/dL [facility] Immature granulocytes (Bld) [#/Vol] 0.09 10*3/uL [facility] Immature granulocytes/100 WBC (Bld) 1 % High 0 [facility] Interpretation and review of laboratory results Abnormal [facility] Lymphocytes/100 WBC (Bld) 16 % Low 24 - 43 % [facility] Lymphocytes/100 WBC (Bld) 1.85 % [facility] MCH (RBC) [Entitic mass] 28.8 pg 25.2 - 33.5 pg [facility] MCHC (RBC) [Mass/Vol] 33.7 g/dL 28.4 - 34.8 g/dL [facility] MCV (RBC) [Entitic vol] 85.5 fL 82.6 - 102.9 fL [facility] Monocytes/100 WBC (Bld) 8 % 3 - 12 % [facility] Monocytes/100 WBC (Bld) 0.89 % [facility] Neutrophils/100 WBC (Bld) 74 % High 36 - 65 % [facility] Nucleated RBC/100 WBC (Bld) [Ratio] 0.0 % 0.0 per 100 WBC [facility] Platelet mean volume (Bld) [Entitic vol] 9.0 fL 8.1 - 13.5 fL [facility] Platelets (Bld) [#/Vol] 335 10*3/uL [facility] RBC (Bld) [#/Vol] 5.52 10*6/uL High 3.95 - 5.1 1 m/uL [facility] Segmented neutrophils/100 WBC (Bld) 8.61 % High [facility] WBC other (Bld) [#/Vol] 11.6 High [facility] CBC with Diffon 12-19-2022 Abs. Basophil 0.05 k/uL Normal 0.00-0.[address] [facility] Comment on above: Performed By: #### C P, CDP, TSHX #### [facility] [address] [place] [address] Electrical Line Mechanic: Gerson Barton MD #### YESY, FT4, GLYHGB, VD25, LIPR #### [facility] [address] [place] [address] Electrical Line Mechanic: Asad Draper MD Abs.Imm.Granulocyte 0.09 k/uL Normal 0.00-0.30 [facility] Comment on above: Performed By: #### C P, CDP, TSHX #### [facility] [address] [place] [address] Electrical Line Mechanic: Gerson Barton MD #### URNMAB, FT4, GLYHGB, VD25, LIPR #### [address] [address] Electrical Line Mechanic: Asad Draper MD Abs.Neutrophil (Seg) 8.61 k/uL High 1.50-8.10 [facility] Comment on above: Performed By: #### C P, CDP, TSHX #### [address] [place] [phone] Electrical Line Mechanic: Gerson Barton MD #### URNMAB, FT4, GLYHGB, VD25, LIPR #### [place] [address] Electrical Line Mechanic: Asad Draper MD Basophils/100 WBC (Bld) 0 % Normal 0-2 [facility] Comment on above: Performed By: #### C P, CDP, TSHX #### [address] [place] 9273883 Electrical Line Mechanic: Gerson Barton MD #### URNMAB, FT4, GLYHGB, VD25, LIPR #### [place] [address] Electrical Line Mechanic: Asad Draper MD Eosinophils (Bld) [#/Vol] 0.07 10*3/uL Normal 0.00-0.44 [facility] Comment on above: Performed By: #### C P, CDP, TSHX #### [address] [place] [phone] Electrical Line Mechanic: Gerson Barton MD #### URNMAB, FT4, GLYHGB, VD25, LIPR #### [place] [phone] Electrical Line Mechanic: Asad Draper MD Eosinophils/100 WBC (Bld) 1 % Normal 1-4 [facility] Comment on above: Performed By: #### C P, CDP, TSHX #### [address] [place], [place] 8441783 Electrical Line Mechanic: Gerson Barton MD #### URNMAB, FT4, GLYHGB, VD25, LIPR #### [address] [phone] Electrical Line Mechanic: Asad Draper MD Erythrocyte distribution width (RBC) [Ratio] 13.8 % Normal 11.8-14.4 [facility] Comment on above: Performed By: #### C P, CDP, TSHX #### [address] [place] [address] Electrical Line Mechanic: Gerson Barton MD #### URNMAB, FT4, GLYHGB, VD25, LIPR #### [address] [id number] Electrical Line Mechanic: Asad Draper MD Hematocrit (Bld) [Volume fraction] 47.2 % High 36.3-47.1 [facility] Comment on above: Performed By: #### C P, CDP, TSHX #### [address] [place], [place] [phone] Electrical Line Mechanic: Gerson Barton MD #### URNMAB, FT4, GLYHGB, VD25, LIPR #### [address] [phone] Electrical Line Mechanic: Asad Draper MD Hemoglobin (Bld) [Mass/Vol] 15.9 g/dL High 11.9-15.1 [facility] Comment on above: Performed By: #### C P, CDP, TSHX #### [address] [place] [address] Electrical Line Mechanic: Gerson Barton MD #### URNMAB, FT4, GLYHGB, VD25, LIPR #### [address] [address] Electrical Line Mechanic: Asad Draper MD Immature granulocytes/100 WBC (Bld) 1 % High 0 [facility] Comment on above: Performed By: #### C P, CDP, TSHX #### [facility] [address] [place] [address] Dr. [place], [place] [phone] Electrical Line Mechanic: Gerson Barton MD #### URNMAB, FT4, GLYHGB, VD25, LIPR #### [address] [place] [address] Electrical Line Mechanic: Asad Draper MD Lymphocytes (Bld) [#/Vol] 1.85 10*3/uL Normal 1.10-3.70 [facility] Comment on above: Performed By: #### C P, CDP, TSHX #### [address] [place] [address] Electrical Line Mechanic: Gerson Barton MD #### URNMAB, FT4, GLYHGB, VD25, LIPR #### [address] [address] Electrical Line Mechanic: Asad Draper MD Lymphocytes/100 WBC (Bld) 16 % Low 24-43 [facility] Comment on above: Performed By: #### C P, CDP, TSHX #### [address] [place] [address] Electrical Line Mechanic: Gerson Barton MD #### URNMAB, FT4, GLYHGB, VD25, LIPR #### [address] [place] [address] Electrical Line Mechanic: Asad Draper MD MCH (RBC) [Entitic mass] 28.8 pg Normal 25.2-33.5 [facility] Comment on above: Performed By: #### C P, CDP, TSHX #### [facility] [address] [place] [address] [place] [phone] Electrical Line Mechanic: Gerson Barton MD #### URNMAB, FT4, GLYHGB, VD25, LIPR #### [address] [phone] Electrical Line Mechanic: Asad Draper MD MCHC (RBC) [Mass/Vol] 33.7 g/dL Normal 28.4-34.8 [facility] Comment on above: Performed By: #### C P, CDP, TSHX #### [address] [place] [id number] Electrical Line Mechanic: Gerson Barton MD #### URNMAB, FT4, GLYHGB, VD25, LIPR #### [place] [address] Electrical Line Mechanic: Asad Draper MD MCV (RBC) [Entitic vol] 85.5 fL Normal 82.6-102.9 [facility] Comment on above: Performed By: #### C P, CDP, TSHX #### [address] [place] [id number] Electrical Line Mechanic: Gerson Barton MD #### URNMAB, FT4, GLYHGB, VD25, LIPR #### [address] [id number] Electrical Line Mechanic: Asad Draper MD Monocytes (Bld) [#/Vol] 0.89 10*3/uL Normal 0.10-1.20 [facility] Comment on above: Performed By: #### C P, CDP, TSHX #### [address] [place] [address] Electrical Line Mechanic: Gerson Barton MD #### URNMAB, FT4, GLYHGB, VD25, LIPR #### [address] [phone] Electrical Line Mechanic: Asad Draper MD Monocytes/100 WBC (Bld) 8 % Normal 3-12 [facility] Comment on above: Performed By: #### C P, CDP, TSHX #### [address] [place], [place] [phone] Electrical Line Mechanic: Gerson Barton MD #### URNMAB, FT4, GLYHGB, VD25, LIPR #### [address] [phone] Electrical Line Mechanic: Asad Draper MD Neutrophil (Seg) 74 % High 36-65 [facility] Comment on above: Performed By: #### C P, CDP, TSHX #### [address] [place] [phone] Electrical Line Mechanic: Gerson Barton MD #### URNMAB, FT4, GLYHGB, VD25, LIPR #### [address] [phone] Electrical Line Mechanic: Asad Draper MD NRBC Automated 0.0 per 100 WBC Normal 0.0 [facility] Comment on above: Performed By: #### C P, CDP, TSHX #### [address] [place] [phone] Electrical Line Mechanic: Gerson Barton MD #### URNMAB, FT4, GLYHGB, VD25, LIPR #### [address] [phone] Electrical Line Mechanic: Asad Draper MD Platelet mean volume (Bld) [Entitic vol] 9.0 fL Normal 8.1-13.5 [facility] Comment on above: Performed By: #### C P, CDP, TSHX #### [address] [place] [address] Electrical Line Mechanic: Gerson Barton MD #### URNMAB, FT4, GLYHGB, VD25, LIPR #### [address] [place] [address] Electrical Line Mechanic: Asad Draper MD Platelets (Bld) [#/Vol] 335 10*3/uL Normal 138-453 [facility] Comment on above: Performed By: #### C P, CDP, TSHX #### [facility] [address] [place] [address] Dr. [place], [place] [phone] Electrical Line Mechanic: Gerson Barton MD #### URNMAB, FT4, GLYHGB, VD25, LIPR #### [facility] [address] [place] [address] Electrical Line Mechanic: Asad Draper MD RBC (Bld) [#/Vol] 5.52 10*6/uL High 3.95-5.11 [facility] Comment on above: Performed By: #### C P, CDP, TSHX #### [address] [place] [phone] Electrical Line Mechanic: Gerson Barton MD #### URNMAB, FT4, GLYHGB, VD25, LIPR #### [address] [address] Electrical Line Mechanic: Asad Draper MD WBC (Bld) [#/Vol] 11.6 10*3/uL High 3.5-11.3 [facility] Comment on above: Performed By: #### C P, CDP, TSHX #### [address] [place], [place] [phone] Electrical Line Mechanic: Gerson Barton MD #### URNMAB, FT4, GLYHGB, VD25, LIPR #### [address] [address] Electrical Line Mechanic: Asad Draper MD Comp Metabolic Profon 2022 Albumin [Mass/Vol] 5.1 g/dL Normal 3.5-5.2 [facility] Comment on above: Performed By: #### C P, CDP, TSHX #### [facility] [address] [place], [place] [phone] Electrical Line Mechanic: Gerson Barton MD #### URNMAB, FT4, GLYHGB, VD25, LIPR #### [address] [place], [place] [phone] Electrical Line Mechanic: Asad Draper MD Albumin/Glob Ratio 1.6 Normal 1.0-2.5 [facility] Comment on above: Performed By: #### C P, CDP, TSHX #### [facility] [address] [place] [address] Electrical Line Mechanic: Gerson Barton MD #### URNMAB, FT4, GLYHGB, VD25, LIPR #### [address] [phone] Electrical Line Mechanic: Asad Draper MD Alkaline Phos 74 U/L Normal 35-[address] [facility] Comment on above: Performed By: #### C P, CDP, TSHX #### [facility] [address] [place] [address] [place] [address] Electrical Line Mechanic: Gerson Barton MD #### URNMAB, FT4, GLYHGB, VD25, LIPR #### [address] [phone] Electrical Line Mechanic: Asad Draper MD ALT [Catalytic activity/Vol] 44 U/L High 5-33 [facility] Comment on above: Performed By: #### C P, CDP, TSHX #### [facility] [address] [place] [address] Electrical Line Mechanic: Gerson Barton MD #### URNMAB, FT4, GLYHGB, VD25, LIPR #### [address] [place], [place] [phone] Electrical Line Mechanic: Asad Draper MD Anion gap [Moles/Vol] 14 mmol/L Normal 9-17 [facility] Comment on above: Performed By: #### C P, CDP, TSHX #### [facility] [address] [place], [place] [phone] Electrical Line Mechanic: Gerson Barton MD #### URNMAB, FT4, GLYHGB, VD25, LIPR #### [address] [phone] Electrical Line Mechanic: Asad Draper MD AST [Catalytic activity/Vol] 27 U/L Normal <32 [facility] Comment on above: Performed By: #### C P, CDP, TSHX #### [address] [place], [place] [phone] Electrical Line Mechanic: Gerson Barton MD #### URNMAB, FT4, GLYHGB, VD25, LIPR #### [address] [phone] Electrical Line Mechanic: Asad Draper MD Bilirubin [Mass/Vol] 1.7 mg/dL High 0.3-1.2 [facility] Comment on above: Performed By: #### C P, CDP, TSHX #### [address] [place], [place] [phone] Electrical Line Mechanic: Gerson Barton MD #### URNMAB, FT4, GLYHGB, VD25, LIPR #### [address] [phone] Electrical Line Mechanic: Asad Draper MD BUN/CRE Ratio 20 Normal 9-[address] [facility] Comment on above: Performed By: #### C P, CDP, TSHX #### [facility] [address] [place] [address] Electrical Line Mechanic: Gerson Barton MD #### URNMAB, FT4, GLYHGB, VD25, LIPR #### [address] [place] [address] Electrical Line Mechanic: Asad Draper MD Calcium [Mass/Vol] 10.5 mg/dL High 8.6-10.4 [facility] Comment on above: Performed By: #### C P, CDP, TSHX #### [facility] [address] [place], [place] [phone] Electrical Line Mechanic: Gerson Barton MD #### URNMAB, FT4, GLYHGB, VD25, LIPR #### [address] [address] Electrical Line Mechanic: Asad Draper MD Chloride [Moles/Vol] 94 mmol/L Low 98-107 [facility] Comment on above: Performed By: #### C P, CDP, TSHX #### [address] [place], [place] [phone] Electrical Line Mechanic: Gerson Barton MD #### URNMAB, FT4, GLYHGB, VD25, LIPR #### [address] [phone] Electrical Line Mechanic: Asad Draper MD CO2 [Moles/Vol] 30 mmol/L Normal 20-31 [facility] Comment on above: Performed By: #### C P, CDP, TSHX #### [facility] [address] [place] [address] Dr. [place], [place] [phone] Electrical Line Mechanic: Gerson Barton MD #### URNMAB, FT4, GLYHGB, VD25, LIPR #### [address] [phone] Electrical Line Mechanic: Asad Draper MD Creatinine [Mass/Vol] 0.8 mg/dL Normal 0.5-0.9 [facility] Comment on above: Performed By: #### C P, CDP, TSHX #### [facility] [address] [place] [address] Dr. [place], [place] [phone] Electrical Line Mechanic: Gerson Barton MD #### URNMAB, FT4, GLYHGB, VD25, LIPR #### [address] [place] [address] Electrical Line Mechanic: Asad Draper MD GFR/1.73 sq M.predicted among non-blacks MDRD (S/P/Bld) [Vol rate/Area] mL/min/{1.73_m2} Normal >60 [facility] Comment on above: Result Comment: These results [...] By: #### C P, CDP, TSHX #### [address] [place] [address] Electrical Line Mechanic: Gerson Barton MD #### URNM, FT4, GLYHGB, VD25, LIPR #### [address] [place] [address] Electrical Line Mechanic: Asad Draper MD Glucose [Mass/Vol] 137 mg/dL High 70-99 [facility] Comment on above: Performed By: #### C P, CDP, TSHX #### [address] [place] [address] Electrical Line Mechanic: Gerson Barton MD #### URNMAB, FT4, GLYHGB, VD25, LIPR #### [address] [place] [address] Electrical Line Mechanic: Asad Draper MD Potassium [Moles/Vol] 4.3 mmol/L Normal 3.7-5.3 [facility] Comment on above: Performed By: #### C P, CDP, TSHX #### [address] [place] [address] Electrical Line Mechanic: Gerson Barton MD #### URNMAB, FT4, GLYHGB, VD25, LIPR #### [address] [phone] Electrical Line Mechanic: Asad Draper MD Protein [Mass/Vol] 8.2 g/dL Normal 6.4-8.3 [facility] Comment on above: Performed By: #### C P, CDP, TSHX #### [address] [place] [address] Electrical Line Mechanic: eGrson Barton MD #### URNMAB, FT4, GLYHGB, VD25, LIPR #### [address] [phone] Electrical Line Mechanic: Asad Draper MD Sodium [Moles/Vol] 138 mmol/L Normal 135-144 [facility] Comment on above: Performed By: #### C P, CDP, TSHX #### [address] [place], [place] [phone] Electrical Line Mechanic: Gerson Barton MD #### URNMAB, FT4, GLYHGB, VD25, LIPR #### [address] [phone] Electrical Line Mechanic: Asad Draper MD Urea nitrogen [Mass/Vol] 16 mg/dL Normal 6-20 [facility] Comment on above: Performed By: #### C P, CDP, TSHX #### [address] [place] [address] Electrical Line Mechanic: Gerson Barton MD #### URNMAB, FT4, GLYHGB, VD25, LIPR #### [address] [phone] Electrical Line Mechanic: Asad Draper MD [facility] Metabolic Pane [facility] 12-19-2022 Albumin [Mass/Vol] 5.1 g/dL 3.5 - 5.2 g/dL [facility] Albumin/Globulin [Mass ratio] 1.6 {ratio} 1.0 - 2.5 [facility] ALP [Catalytic activity/Vol] 74 U/L 35 - 104 U/L [facility] ALT [Catalytic activity/Vol] 44 U/L High 5 - 33 U/L [facility] Anion gap [Moles/Vol] 14 mmol/L 9 - 17 mmol/L [facility] AST [Catalytic activity/Vol] 27 U/L NINF - 32 U/L [facility] Bilirubin [Mass/Vol] 1.7 mg/dL High 0.3 - 1 .2 mg/dL [facility] Calcium [Mass/Vol] 10.5 mg/dL High 8.6 - 10. 4 mg/dL [facility] Chloride [Moles/Vol] 94 mmol/L Low 98 - 10 7 mmol/L [facility] CO2 [Moles/Vol] 30 mmol/L 20 - 31 mmol/L [facility] Creatinine [Mass/Vol] 0.8 mg/dL 0.5 - 0.9 mg/dL [facility] GFR/1.73 sq M.predicted MDRD (S/P/Bld) [Vol rate/Area] - PINF [facility] Comment on above: These results are [...] 137 mg/dL High 70 - 99 mg/dL [facility] Interpretation and review of laboratory results Abnormal [facility] Potassium [Moles/Vol] 4.3 mmol/L 3.7 - 5.3 mmol/L [facility] Protein [Mass/Vol] 8.2 g/dL 6.4 - 8.3 g/dL [facility] Sodium [Moles/Vol] 138 mmol/L 135 - 144 mmol/L [facility] Urea nitrogen [Mass/Vol] 16 mg/dL 6 - 20 mg/dL [facility] Urea nitrogen/Creatinine [Mass ratio] 20 mg/mg 9 - 20 [facility] Lipid Panelon 12-19-2022 Cholesterol [Mass/Vol] 115 mg/dL NINF - 200 mg/dL [facility] Comment on above: Cholesterol Guidelines: <200 Desirable 200-240 Borderline >240 Undesirable Cholesterol in HDL [Mass/Vol] 49 mg/dL 40 - PINF mg/dL [facility] Comment on above: HDL Guidelines: <40 Undesirable 40-59 Borderline >59 Desirable Cholesterol in LDL [Mass/Vol] 32 mg/dL 0 - 130 mg/dL [facility] Comment on above: LDL Guidelines: <100 Desirable 100-129 Near to/above Desirable 130-159 Borderline >159 Undesirable Direct (measured) LDL and calculated LDL are not interchangeable tests. Cholesterol.total/Ch olesterol in HDL [Mass ratio] 2.3 {ratio} NINF - 5 [facility] Interpretation and review of laboratory results Abnormal [facility] Triglyceride [Mass/Vol] 171 mg/dL High [facility] mg/dL [facility] Comment on above: Triglyceride Guidelines: <150 Desirable 150-199 Borderline 200-499 High >499 Very high Based on AHA Guidelines for fasting triglyceride, March 2012. [facility] Microalbumin, Uron 3 Albumin DL <= 20 mg/L (U) [Mass/Vol] 764 mg/L High NINF - 21 mg/L [facility] Albumin/Creatinine DL <= 20 mg/L (U) [Ratio] 178 High [facility] Creatinine (U) [Mass/Vol] 428.7 mg/dL High 28.0 - 217.0 mg/dL [facility] Interpretation and review of laboratory results Abnormal [facility] T4, Freeon 12-19-2022 Free T4 [Mass/Vol] 1.5 ng/dL 0.9 - 1.7 ng/dL [facility] TSH w/reflex to FT4on 2022 Thyroid Stim. Horm. 6.76 uIU/mL High 0.30-5.00 [facility] Comment on above: Performed By: #### C P, CDP, TSHX #### [facility] [address] [place] [address] Electrical Line Mechanic: Gerson Barton MD #### URNMAB, FT4, GLYHGB, VD25, LIPR #### [facility] [address] [place] [address] Electrical Line Mechanic: Asad Draper MD TSH with Reflexon 12-19-2022 Interpretation and review of laboratory results Abnormal [facility] TSH Qn 6.76 m[IU]/L High [facility] Vitamin D 25 Hydroxyon 12-19 25-hydroxyvitamin D3 [Mass/Vol] 59.0 ng/mL 29.9 - PINF ng/mL [facility] Comment on above: Reference Range: Vitamin D status Range Deficiency <20 ng/mL Mild Deficiency 20-30 ng/mL Sufficiency 30-100 ng/mL Toxicity >100 ng/mL [facility] XR CHEST (2 VW)Ordered By: Ventura Whitlock on 12-08-2020 No acute cardiopulmonary disease. [facility] Work Phone: EXAMINATION: TWO XRA Y VIEWS OF THE CHEST 12/06/2020 7:41 pm COMPARISON: July 19, 2017. HISTORY: ORDERING SYSTEM PROVIDED HISTORY: Mild intermittent asthma without complication TECHNOLOGIST PROVIDED HISTORY: ASTHMA FINDINGS: No lines or tubes. Normal cardiomediastinal silhouette. The lungs are clear without focal consolidation or pleural effusion. No suspicious pulmonary nodules. No pulmonary edema. No pneumothorax. No acute osseous abnormality. [facility] Work Phone: Kalpesh, pn Incoming Radiant Results From [employer] - 12/08/2020 8:26 PM EDT EXAMINATION: TWO [...] osseous abnormality. IMPRESSION: No acute cardiopulmonary disease. [facility] [employer] Work Phone: [facility] [employer] Work Phone: Discharge Summaryon 07-22-19 18 HIM IP Note OR Biotech Production Specialist Normal [facility] CBCon 07-21-2017 Erythrocyte distribution width Auto Ratio (RBC) 12.9 % Normal 11.8-14.4 [facility] Comment on above: Performed By: #### BECCA MYLES ####[address] [address] Erythrocytes (RBC) 0.0 per 100 WBC Normal 0.0 [facility] Comment on above: Result Comment: [facility] [address] [place] [address] Performed By: #### BECCA MYLES ####[address] [address] Erythrocytes (RBC) 4.33 10*6/uL Normal 3.95-5.11 [facility] Comment on above: Performed By: #### BECCA MYLES ####[address] [address] Hematocrit (HCT) 38.1 % Normal 36.3-47.1 [facility] Comment on above: Performed By: #### BECCA MYLES ####[facility] [address] [place] [address] Hemoglobin mass conc (Bld) 12.4 g/dL Normal 11.9-15.1 [facility] Comment on above: Performed By: #### BECCA MYLES ####[facility] [address] [place] [address] MCH 28.6 pg Normal 25.2-33.5 [facility] Comment on above: Performed By: #### VIRGEN MYLESR ####[address] [place] [address] MCHC mass conc (RBC) 32.5 g/dL Normal 28.4-34.8 [facility] [place] Comment on above: Performed By: #### VIRGEN MYLESR ####[facility] MasonGuxiqodbgbvr[address] [place] [address] MCV 88.0 fL Normal 82.6-102.9 [facility] Comment on above: Performed By: #### VIRGEN MYLESR ####[facility] MasonKdmctnkebwss[address] [place] [address] Platelet mean volume (PMV) 9.7 fL Normal 8.1-13.5 [facility] Comment on above: Performed By: #### VIRGEN MYLESR ####[facility] MasonOizbcxfnfjqh[address] [place] [address] Platelets 198 10*3/uL Normal 138-453 [facility] Comment on above: Performed By: #### VIRGEN MYLESR ####[facility] MasonAojvrsfjcjyo4[address] [place] [address] WBC (Leukocytes) 4.5 10*3/uL Normal 3.5-11.3 [facility] Comment on above: Performed By: #### David WOMACK LIPR ####[facility] MasonWjabhxgsnjer[address] [place] [address] Comp Metabolic Pr/rfx MGon 0 - Potassium molar conc 3.5 mmol/L Low 3.7-5.3 [facility] Comment on above: Performed By: #### David WOMACK LIPR ####[facility] MasonAxpcyxyvldfb[address] [place] [address] (cont.) Normal [facility] Comment on above: Result Comment: Aver age GFR for 40-49 years old: 99 mL/min/1.73sq mChronic Kidney Disease: <60 mL/min/1.73sq mKidney failure: <15 mL/min/1.73sq meGFR calculated using average adult body mass. Additional eGFR calculator available at:[email or web address] Medical Center [address] [place] [address] Performed By: #### BECCA MYLES ####[address] [address] Alanine aminotransferase (ALT) 15 U/L Normal 5-33 [facility] Comment on above: Performed By: #### BECCA MYLES ####[facility] HealthLogim SolutionsVoogeapusyag[address] [place] [address] Albumin 3.9 g/dL Normal 3.5-5.2 [facility] Comment on above: Performed By: #### BECCA MYLES ####[facility] HealthLog[facility] SolutionsNpksynttfaap[address] [place] [address] Albumin/Globulin Ratio 2.1 {ratio} Normal 1.0-2.5 [facility] Comment on above: Performed By: #### BECCA MYLES ####[facility] SolutionsHqxjpkzcopdx84[address] [place] [address] Alkaline Phos 34 U/L Low 35-104 [facility] Comment on above: Performed By: #### BECCA MYLES ####[facility] Health[facility] SolutionsBxcgdrebakzp2525[address] [place] [address] Anion gap 12 mmol/L Normal 9-17 [facility] Comment on above: Performed By: #### BECCA MYLES ####[facility] Health[facility] SolutionsLiowiwwsfxtp[address] [place] [address] Aspartate aminotransferase (AST) 14 U/L Normal <32 [facility] Comment on above: Performed By: #### BECCA MYLES ####[address] [address] Bilirubin Ql (U) 1.02 mg/dL Normal 0.3-1.2 [facility] Comment on above: Performed By: #### BECCA MYLES ####[facility] [address] [place] [address] Calcium 9.0 mg/dL Normal 8.6-10.4 [facility] Comment on above: Performed By: #### BECCA MYLES ####[address] [address] Chloride 99 mmol/L Normal 98-107 [facility] Comment on above: Performed By: #### BECCA MYLES ####[facility] [address] [place] [address] CO2 24 mmol/L Normal 20-31 [facility] Comment on above: Performed By: #### BECCA MYLES ####[address] [address] Creatinine 0.60 mg/dL Normal 0.50-0.90 [facility] Comment on above: Performed By: #### BECCA MYLES ####[facility] [address] [place] [address] eGFR (non-black) mL/min/{1.73_m2} Normal >60 [facility] Comment on above: Performed By: #### BECCA MYLES ####[address] [place] [address] Glucose mass conc 99 mg/dL Normal 70-99 [facility] Comment on above: Performed By: #### BECCA MYLES ####[employer] [address] [place] [address] Protein 5.8 g/dL Low 6.4-8.3 [facility] Comment on above: Performed By: #### T VU, LIPR ####[facility] Health[facility] SolutionsUivduqwhchfd6667 [place] [address] Sodium 135 mmol/L Normal 135-144 [facility] Comment on above: Performed By: #### T VU LIPR ####[employer] [place] [address] Urea nitrogen 21 mg/dL High 11-20 [facility] Comment on above: Performed By: #### T VU LIPR ####[facility] SolutionsLipdbmbpgngc[address] [place] [address] BUN/CRE Ratio NOT REPORTED Normal 02-20 [facility] Comment on above: Performed By: #### T VU LIPR ####[facility] Health[facility] SolutionsSbxftnhvbgvz8534 [place] [address] Staging: NOT REPORTED Normal [facility] Comment on above: Performed By: #### T VU LIPR ####[facility] HealthLog[facility] SolutionsJoecjmitbkuc[address] [place] [address] Magnesiumon 07-21-2017 Magnesium 1.9 mg/dL Normal 1.6-2.6 [facility] Comment on above: Result Comment: [facility] [place] [address] Performed By: #### T VU LIPR ####[facility] Health[facility] SolutionsNozwkvebfnym[address] [place] [address] Plan of Careon 07-21-2017 HIM IP Note OR Biotech Production Specialist Normal [facility] HIM IP Note OR Biotech Production Specialist Normal [facility] HIM IP Note OR Biotech Production Specialist Normal [facility] Progress Noteon 07-21-2017 HIM IP Note OR Biotech Production Specialist Normal [facility] HIM IP Note OR Biotech Production Specialist Normal [facility] CARDIAC STRESS TESTon 2017 CARDIAC STRESS TEST [facility] [address] [place] [address] CARDIAC STRESS TESTPATIENT NAME: NADEEN AGUILA : 1965MED REC NO: [id number] ROOM: [address] [place], [place] [address]OUNT NO: [id number] ADMIT DATE: 07/20/2017PROVIDER: Ang CraigARDIOLITE TREADMILL STRESS STUDYDATE OF STUDY: 07/20/2017ORDERING PROVIDER: Mari ZuritaBEAUREGARD [facility] PROVIDER: Jori GarciaDICATION: Chest discomfort.CONSENT: [...] of Nuclear MedicineANG SHELLMID: 07/20/2017 15:47:34 /PGAYTANJob#: [id number] Doc#: UnknownPositive result faxed to the Unit Normal [facility] Consulton 07-20-2017 HIM IP Note OR Biotech Production Specialist Normal [facility] History and Physicalon 07-20 HIM IP Note OR Biotech Production Specialist Normal [facility] K (Potassium)on 07-20-2017 Potassium molar conc 3.9 mmol/L Normal 3.7-5.3 [facility] Comment on above: Result Comment: [facility] [address] [place] [address] [phone] ([phone] Performed By: #### T BECCA WOMACK ####[facility] [address] [place] [address] Lipid Profileon 07-20-2017 Cholesterol 162 mg/dL Normal <200 [facility] Comment on above: Result Comment: Chol esterol Guidelines: <200 Desirable 200-240 Borderline >240 Undesirable Performed By: #### David WOMACK LIPR ####[facility] [address] [place] [address] Cholesterol to HDL Ratio 3.4 {ratio} Normal <5 [facility] Comment on above: Performed By: #### David WOMACK LIPR ####[facility] SolutionsRsbbdztleqzx[address] [place] [address] HDL Cholesterol 48 mg/dL Normal >40 [facility] Comment on above: Result Comment: HDL Guidelines: <40 Undesirable 40-59 Borderline >59 Desirable Performed By: #### BECCA MYLES ####[facility] [address] [place] [address] LDL Cholesterol 84 mg/dL Normal 0-130 [facility] Comment on above: Result Comment: LDL Guidelines: <100 Desirable 100-129 Near to/above Desirable 130-159 Borderline >159 UndesirableDirect (measured) LDL and calculated LDL are not interchangeable tests. Performed By: #### David WOMACK LIPR ####[facility] [address] [place] [address] Triglyceride 151 mg/dL High <150 [facility] Comment on above: Result Comment: Trig lyceride Guidelines: <150 Desirable 150- 199 Borderline 200-499 High >499 Very high Based on AHA Guidelines for fasting triglyceride, March 2012.[facility] [place] [address] Performed By: #### BECCA MYLES ####[facility] SolutionsLqxluhylufbu55[address] [place] [address] Cholesterol in VLDL mass conc NOT REPORTED Normal 1-30 [facility] Comment on above: Performed By: #### BECCA MYLES ####[facility] [address] [place] [address] Magnesiumon 07-20-2017 Magnesium 1.8 mg/dL Normal 1.6-2.6 [facility] Comment on above: Result Comment: [facility] [place] [address] [place], [place] [id number] ([phone] Performed By: #### T BECCA WOMACK ####[facility] [id number] [place] [address] NM MYOCARDIAL SPECT REST EXE RCISE OR [...] Revascularization in Patients With Stable Ischemic Heart DiseaseWAD[facility] CLINIC Volume 69, Issue October 2016High risk (>3% annual or IN)1. Severe resting LV dysfunction (LVEF >35%) not [...] e risk (1% to 3% annual or IN)1. Mild/moderate resting LV dysfunction (LVEF 35% to [...] coronarybed.Low Risk (Less than 1% annual or IN)1. Normal or small myocardial perfusion defect at rest or with stressencumbering less than 5% of the myocardium.Interpreted by:JENNI Montañoigned by:Giovanny Lan MD07/20/17inal result Normal [facility] Plan of Careon 07-20-2017 HIM IP Note OR Biotech Production Specialist Normal [facility] HIM IP Note OR Biotech Production Specialist Normal [facility] Procedureon 07-20-2017 HIM IP Note OR [employer]otech Production Specialist Normal [facility] Progress Noteon 07-20-2017 HIM IP Note OR Biotech Production Specialist Normal [facility] HIM IP Note OR Biotech Production Specialist Normal [facility] TSH w/reflex to FT4on 2017 Thyroid stimulating hormone (TSH) 0.22 m[IU]/L Low 0.30-5.00 [facility] Comment on above: Result Comment: [employer] [address] [place] [address] Performed By: #### T SHX, FT4 ####[employer] [place] [address] Thyroxine, Freeon 07-20-2017 Thyroxine, Free 1.52 ng/dL Normal 0.93-1.70 [facility] Comment on above: Result Comment: [employer] [facility] [place] [address] Performed By: #### T SHX, FT4 ####[employer] [place] [address] Troponinon 07-20-2017 Troponin I.cardiac mass conc Normal [facility] Comment on above: Result Comment: Refe rence Range: <0.03 Within reference range. 0.03-0.09 Possible myocardial damage.Repeat at appropriate intervals to rule out chronic elevation. >= 0.10 Indicative of myocardial damage.Patients with high levels of Biotin oral intake (i.e >5mg/day) may have falsely decreased Troponin T levels. Samples collected within 8 hours of biotin intake may require additional information for diagnosis.[employer] [address] [place] [address] Performed By: #### T ROPI, LIPR ####[employer] [place] [address] Troponin T.cardiac mass conc ug/L Normal <0.03 [facility] Comment on above: Result Comment: Trop onin T results cannot be compared to Troponin-I results. Performed By: #### T BECCA WOMACK ####[facility] [address] [place] [address] Vital Signs Date Time Vital Sign Value Performing Clinician Faci lity 03-06-2024 09:16-0400 Body height 160 cm Jeanine Rine DIRECTOR [employer] Work Phone: [facility] 03-06-2024 09:16-0400 Body mass index (BMI) [Ratio] 38.9 kg/m2 Jeanine Rine DIRECTOR [employer] Work Phone: [facility] 03-06-2024 09:16-0400 Body temperature 98.01 [degF] Jeanine Rine DIRECTOR [employer] Work Phone: [facility] 03-06-2024 09:16-0400 Body weight 99.61 kg Jeanine Rine DIRECTOR [employer] Work Phone: [facility] 03-06-2024 09:16-0400 Diastolic blood pressure 60 mm[Hg] Jeanine Rine DIRECTOR [employer] Work Phone: [facility] 03-06-2024 09:16-0400 Heart rate 71 /min Jeanine Rine DIRECTOR [employer] Work Phone: [facility] 03-06-2024 09:16-0400 Respiratory rate 18 /min Jeanine Rine DIRECTOR [employer] Work Phone: [facility] 03-06-2024 09:16-0400 SaO2% (BldA) [Mass fraction] 95 % Jeanine Rine DIRECTOR [employer] Work Phone: [facility] 03-06-2024 09:16-0400 Systolic blood pressure 120 mm[Hg] Jeanine Rine DIRECTOR [employer] Work Phone: [facility] Healthcare Encounters Encounter Date Encounter Type Care Provider Facility Start: 05-05-2024 End: 05-05-2024 Refill Jeanine L Rine DIRECTOR [employer] Work Phone: [facility] Comment on above: Type 2 diabetes rochelle itus without complication, without long- term current use of insulin ([facility]) (Primary Dx) Start: 05-04-2024 End: 05-04-2024 Refill Jeanine Whitlock DIRECTOR [employer] Work Phone: [facility] Comment on above: Type 2 diabetes rochelle itus without complication, without long- term current use of insulin ([facility]) (Primary Dx) Start: 05-03-2024 End: 05-05-2024 Telephone encounter Jeanine Whitlock DIRECTOR [employer] Work Phone: [facility] Start: 04-30-2024 End: 05-01-2024 Refill Jeanine Trevizoe DIRECTOR [employer] Work Phone: [facility] Comment on above: Type 2 diabetes rochelle itus with hyperglycemia, with long-term current use of insulin ([facility]) Start: 04-03-2024 End: 04-03-2024 Bamboo [...] without long- term current use of insulin ([facility]) Start: 03-25-2024 End: 03-25-2024 Refill Jeanine Trevizoe DIRECTOR [employer]CH[employer]ECT[employer] Work Phone: [facility] Comment on above: Environmental and se asonal allergies; Pure hypercholesterolemia ([facility]/HCC) Start: 03-10-2024 End: 03-10-2024 Telephone encounter Jeanine Whitlock DIRECTOR [employer]CH[employer] Work Phone: [facility] Comment on above: update on dexcom and blood sugars; New Medication ordered Start: 03-06-2024 End: 03-06-2024 Bamboo flowsheet Jeanine Trevizoe DIRECTOR [employer] Work Phone: [facility] Start: 03-06-2024 End: 03-06-2024 Bamboo flowsheet Jeanine Liban Trevizoe DIRECTOR [employer] Work Phone: [facility] Start: 03-06-2024 End: 03-06-2024 ambulatory JEANINE L ANGELE Not Available Start: 03-06-2024 End: 03-06-2024 Patient encounter status Jeanine Whitlock DIRECTOR [employer] AR[employer]ECT[employer] Work Phone: [facility] Work Phone: Start: 03-06-2024 End: 03-06-2024 Periodic preventive med est patient 40-64yrs Jeanine Trevizoe DIRECTOR [employer] Work Phone: [facility] Comment on above: Type 2 diabetes rochelle itus without complication, without long- term current use of insulin (CMS/HCC) (Primary Dx); Wellness examination; Type 2 diabetes mellitus with hyperglycemia, with long-term current use of insulin (CMS/HCC); Acute post-traumatic stress disorder (CMS/HCC); ERNIQUE (generalized anxiety disorder) (CMS/HCC); Severe single current [...] DIAZ Not Available Start: 07-15-2023 End: 07-18-2023 [facility] JEANINE WHITLOCK [facility] Start: 07-15-2023 End: 07-17-2023 Subsequent hospital visit by physician [facility] Dexa Room At [facility] Dexa Scan Comment on above: Age-related osteopor osis without current pathological fracture Start: 05-24-2023 End: 05-24-2023 ambulatory JEANINE WHITLOCK Not Available Start: 05-10-2023 End: 05-11-2023 ambulatory TYLER RAMEY [facility] Start: 12-27-2022 End: 12-28-2022 [facility] JEANINE WHITLOCK [facility] Start: 12-19-2022 End: 12-20-2022 ambulatory POLO DIAZ [facility] Start: 12-19-2022 End: 12-19-2022 Subsequent hospital visit by physician Jeanine Whitlock Work Phone: [facility] Start: 12-06-2020 End: 12-08-2020 Subsequent hospital visit by physician Maddie Sewell Dr Room 2 [facility] Comment on above: Mild intermittent as thma without complication Start: 07-20-2017 End: 07-22-2017 Evaluation and management of inpatient JEANINE WHITLOCK [facility] Procedures Date Procedure Procedure Detail Performing Clinician Start: 04-03-2024 End: 04-03-2024 DESTRUCTION OF LESION Amalia DOCKERY Work Phone: Start: 04-03-2024 CRYOTHERAPY SKIN LESION Amalia DOCKERY Work Phone: Start: 07-15-2023 Dxa bone density thomas dy 1/> sites axial skel Tyler Ramey MD Work Phone: Start: 05-24-2023 Mammography Jeanine Whitlock DIRECTOR [employer] Work Phone: Start: 12-19-2022 Comprehensive metabo lic panel Polo Escobedo SOCIAL WORK SUPERVISOR - DIRECTOR [employer] Work Phone: Start: 12-19-2022 Lipid panel Polo Lauren hamiltonbasilia SOCIAL WORK SUPERVISOR - DIRECTOR [employer] Work Phone: Start: 12-19-2022 Urine albumin quantitative Polo Escobedo SOCIAL WORK SUPERVISOR - DIRECTOR [employer] Work Phone: Start: 12-06-2020 Radiologic exam ches t 2 views Jeanine L Rine Work Phone: Start: 02-07-2018 Colonoscopy Jeanine Rine DIRECTOR [employer] Work Phone: Start: 01-23-2018 Colonoscopy Jeanine Rine Work Phone: Start: 07-22-2017 SENIOR PRINCIPAL PROCESS ENGINEER REPORT JEANINE R INE Start: 07-22-2017 DISCHARGE [...] 02-08-2028 Screening for malignant neoplasm of colon [facility] Start: 01-24-2028 Screening for malignant neoplasm of colon [facility] Start: 02-13-2027 DTaP/Tdap/Td vaccine (3 - Td or Tdap) DTaP/Tdap/Td vaccine (3 - Td or Tdap) [facility] Start: 06-21-2025 Glaucoma screening Diabetes: Retinopathy Screening [facility] Start: 05-24-2025 Screening for malignant neoplasm of breast Breast cancer screen [facility] Start: 04-05-2025 End: 04-05-2025 Patient encounter procedure 04/05/2025 9:50 AM EST Office Visit [facility] [address] [place] [address] Amalia Francis, PA [address] [place] [address] [facility] Start: 11-05-2024 Urine screening for protein Diabetes: Urine Protein Screening [facility] Start: 06-05-2024 Hemoglobin A1c measurement Diabetes: Hemoglobin A1C [facility] Start: 05-24-2024 Screening for malignant neoplasm of breast Mammogram [facility] Start: 05-11-2024 End: 05-11-2024 Patient encounter procedure 05/11/2024 10:55 AM EST Office Visit [facility] [address] [place] [address] Alexus Macie Gerry, SOCIAL WORK SUPERVISOR-LEGAL STENOGRAPHER [address] [place] [address] [facility] Start: 04-06-2024 End: 03-06-2025 Hemoglobin A1c/Hemoglobin.total in Blood Hemoglobin A1c Lab Today Type 2 diabetes mellitus without complication, without long-term current use of insulin ([facility]) Expected: 04/06/2024 (Approximate), Expires: 03/06/2025 [facility] Work Phone: Comment on above: Expected: 04/06/2024 (Approximate), Expi res: 03/06/2025 Start: 04-03-2024 End: 04-03-2024 Patient encounter procedure [facility] Comment on above: Arrived Start: 02-02-2024 Influenza vaccination Influenza Vaccine (#1) [facility] Start: 12-20-2023 GFR test (Diabetes, CKD 3-4, OR last GFR 15-59) GFR test (Diabetes, CKD 3-4, OR last GFR 15-59) [facility] Start: 12-20-2023 Hemoglobin A1c measurement A1C test (Diabetic or Prediabetic) [facility] Start: 12-20-2023 Lipid panel Lipids [facility] [employer] Start: 12-20-2023 Urine screening for protein Diabetic Alb to Cr ratio (uACR) test [facility] Start: 01-01-2023 Influenza vaccination Flu vaccine (#1) [facility] Start: 02-01-2021 Influenza vaccination Flu vaccine (#1) [employer] Phone: Start: 12-02-2020 COVID-19 Vaccine (3 - Booster for Moderna series) COVID-19 Vaccine (3 - Booster for Moderna series) [facility] [employer] Start: 01-18-2020 Screening for malignant neoplasm of breast Breast cancer screen [facility] [employer] Start: 07-23-2018 Creatinine measurement Creatinine monitoring [employer] Phone: Start: 07-23-2018 GFR test (Diabetes, CKD 3-4, OR last GFR 15-59) GFR test (Diabetes, CKD 3-4, OR last GFR 15-59) [email or web address] Start: 07-23-2018 Potassium monitoring Potassium monitoring [employer] Phone: Start: 07-20-2018 Lipid panel [facility] [employer] Start: 07-01-2018 Pneumococcal 0-64 years Vaccine (2 - PPSV23 if available, else PCV20) Pneumococcal 0-64 years Vaccine (2 - PPSV23 if available, else PCV20) [facility] [employer] Start: 07-01-2018 Pneumococcal 0-64 years Vaccine (2 - PPSV23 or PCV20) Pneumococcal 0-64 years Vaccine (2 - PPSV23 or PCV20) [facility] [employer] Start: 2017 Shingles Vaccine (1 of 2) Shingles Vaccine (1 of 2) [facility] Start: 2012 Screening for malignant neoplasm of colon [facility] [employer] Start: 06-15-2012 Hemoglobin A1c measurement A1C test (Diabetic or Prediabetic) [facility] [employer] Start: 1997 Screening for malignant neoplasm of cervix [facility] [employer] Start: 1988 Screening for malignant neoplasm of cervix [facility] [employer] Start: 1986 Hepatitis B vaccine (1 of 3 - Risk 3-dose series) Hepatitis B vaccine (1 of 3 - Risk 3-dose series) [facility] [employer] Start: 1985 Diabetic microalbuminuria test Diabetic microalbuminuria test [employer] Phone: Start: 1985 Glaucoma screening Diabetic retinal exam [facility] [employer] Start: 1985 Hepatitis C screening Hepatitis C screen [facility] [employer] [place] Start: 1985 Urine screening for protein Diabetic Alb to Cr ratio (uACR) test [facility] [employer] [place] Start: 1982 HIV screening HIV screen [facility] [employer] [place] Start: 1979 Depression Monitoring Depression Monitoring [facility] [employer] [place] Start: 1977 Diabetic foot examination Diabetic foot exam [facility] [employer] [place] Start: 1977 Diabetic retinal exam Diabetic retinal exam [facility] [employer] Phone: Start: 1973 Pneumococcal 0-64 years Vaccine (1 of 2 - PPSV23) Pneumococcal 0-64 years Vaccine (1 of 2 - PPSV23) [facility] [employer] Phone: Start: 01-23-1968 COVID-19 Vaccine (#1) COVID-19 Vaccine (#1) [facility] [employer] [place] Start: 1967 Hepatitis B vaccine (1 of 3 - 3-dose series) Hepatitis B vaccine (1 of 3 - 3-dose series) [facility] [employer] [place] Start: 1967 Hepatitis C screening Hepatitis C screen [facility] Phone: Start: 1967 Screening for malignant neoplasm of colon [facility] End: 12-19-2022 Hemoglobin A1c/Hemoglobin.total in Blood [facility] Work Phone: Comment on above: Once for 1 Occurrences starting 12/20/19 23 until 12/19/2022 Immunizations Immunization Date Immunization Notes Care Provider Nicolasa rivera 03-06-2024 influenza, injectabl e, quadrivalent, preservative free Jeanine Rine DIRECTOR [employer] Work Phone: [facility] 05-10-2023 influenza, injectabl e, quadrivalent, preservative free Jeanine Rine DIRECTOR [employer] Work Phone: [facility] 05-10-2023 influenza virus vacc ine, unspecified formulation Jeanine Rine DIRECTOR [employer] Work Phone: [facility] 04-13-2022 influenza, injectabl e, quadrivalent, preservative free Jeanine Rine DIRECTOR [employer] Work Phone: [facility] 06-09-2021 zoster vaccine recombinant Jeanine Rine DIRECTOR [employer] Work Phone: [facility] 03-10-2021 influenza, injectabl e, quadrivalent, preservative free Jeanine Rine DIRECTOR [employer] Work Phone: [facility] 03-10-2021 zoster vaccine recombinant Jeanine Rine DIRECTOR [employer] Work Phone: [facility] 03-04-2020 influenza, injectabl e, quadrivalent, preservative free Jeanine Rine DIRECTOR [employer] Work Phone: [facility] 05-06-2018 pneumococcal conjuga te vaccine, 13 valent Jeanine Rine DIRECTOR [employer] Work Phone: [facility] 04-03-2017 influenza, injectabl e, quadrivalent, preservative free Jeanine Rine DIRECTOR [employer] Work Phone: [facility] 02-13-2017 tetanus toxoid, redu shelby diphtheria toxoid, and acellular pertussis vaccine, adsorbed Jeanine Rine DIRECTOR [employer] Work Phone: [facility] 05-16-2006 hepatitis B vaccine, adult dosage Jeanine Rine DIRECTOR [employer] Work Phone: [facility] 07-10-2003 hepatitis B vaccine, adult dosage Jeanine Rine DIRECTOR [employer] Work Phone: [facility] 12-12-1995 hepatitis B vaccine, adult dosage Jeanine Rine DIRECTOR [employer] Work Phone: [facility] 09-19-1995 hepatitis B vaccine, adult dosage Jeanine Rine DIRECTOR [employer] Work Phone: [facility] Payers Date Payer Category Payer Managed Care HMO (unspecified) [id number] 2023 Private Health Insurance [id number] 2019 Unknown [id number] 2014 Unknown [id number] 1967 Unknown [id number] 1967 Unknown [id number] 1967 Unknown [id number] 1967 Unknown [id number] 1967 Unknown [id number] 1967 Unknown [id number] 1967 Unknown [id number] 1967 Unknown [id number] 1967 Unknown [id number] 1967 Unknown [id number] 1967 Unknown [id number] 1967 Unknown [id number] Social History Date Type Detail Facility Start: 01-23-2018 End: 12-19-2022 Tobacco smoking status NJIS Never smoker [facility] Start: 01-23-2018 End: 12-19-2022 Tobacco use and exposure Never used [facility] Start: 01-23-2018 Alcohol intake Current non-drinker of alcohol (finding) [employer] Phone: Start: 1965 Sex Assigned At Not on file [employer] Phone: Start: 01-25-2019 End: 01-22-2024 History of [...] to any clubs or organizations such as jainism groups, unions, fraternal or athletic groups, or [...] Equipment Origin al Text Equipment Identifier Dates [id number], [id number] Start: 11-19-2023 Clinical Notes 03-06-2024 to 05-05-2024 Telephone Encounter - Jeanine Whitlock NP - 05/05/2024 4:25 PM ESTTelephone Encounter - Jeanine Whitlock NP - 05/05/2024 4:25 PM ESTTelephone Encounter - Jeanine Whitlock NP - 05/04/2024 6:29 PM EST Note Date & Type Note Facility 05-05-2024 Telephone encount er Note Resent correct rx [facility] 05-05-2024 Miscellaneous Notes Formattin g of this note might be different from the original. Resent correct rx documented in this encounter [facility] 05-04-2024 Telephone encount er Note Increase to ozempic 1 mg dose per emessage request. [facility] 05-04-2024 Miscellaneous Notes Formattin g of this note might be different from the original. Increase to ozempic 1 mg dose per emessage request. documented in this encounter [facility] 04-03-2024 History of Presen t illness Narrative [...] limited to risks of scarring, darker or post hole digging machine operator pigmentary changes, recurrence, incomplete removal and infection. [...] Visit: 1 year documented in this encounter [facility] 03-27-2024 Telephone encount er Note Pharmacy requesting new RX for losartan for pt. [facility] 03-27-2024 Miscellaneous Notes Formattin g of this note might be different from the original. Pharmacy requesting new RX for losartan for pt. documented in this encounter [facility] 03-10-2024 Telephone encount er Note noted [facility] 03-10-2024 Miscellaneous Notes Formattin g of this [...] do about this. documented in this encounter [facility] 03-10-2024 Telephone encount er Note Spoke with Mariella and notified her and she reports she has taken the Ozempic previously however after her sugars got better her insurance stopped paying for it. Answered the PA questions online and attached progress notes and A1C. [facility] 03-10-2024 Telephone encount er Note Please let mariella know that jeanine sent ozempic once weekly to the local pharmacy for her. This triggered a PA so we will need to see what that looks like. Call if any issues swallowing or abd pain. Beware of constipation. Call if questions. Continue jardiance and metformin. [facility] 03-10-2024 Telephone encount er Note She has been wearing the dexcom and her average sugars are running 196. Patient states that she has been eating better, but the alarm that her sugar is high will still go off. She is not sure what more she should do about this. [facility] 03-06-2024 History of Presen t illness Narrative Nadeen Augila is a 58 y.o. female presents with [...] mo aic prior. documented in this encounter [facility] 03-06-2024 Instructions Jeanine Whitlock NP - [...] protein before carbs documented in this encounter [facility] Evaluation note Diagnosis Mild intermittent asthma without complication Unspecified asthma documented in this encounter [employer] Phone: evaluation note* Diagnosis Age-related osteoporosis without current pathological fracture Senile osteoporosis documented in this encounter [facility] Diagnosis Type 2 diabetes mellitus without complication, without long-term current use of insulin ([facility])- Primary Wellness examination Type 2 diabetes mellitus with hyperglycemia, with long-term current use of insulin ([facility]) Acute post-traumatic stress disorder ([facility]) ENRIQUE (generalized anxiety disorder) ([facility]) Generalized anxiety disorder Severe single current episode of major depressive disorder, without psychotic features ([facility]) Acquired hypothyroidism ([facility]/HCC) Unspecified hypothyroidism Panic disorder with agoraphobia ([facility]HCC) Agoraphobia with panic disorder Pure hypercholesterolemia ([facility]) Pure hypercholesterolemia Primary hypertension ([facility]) Unspecified essential hypertension Mild intermittent asthma without complication ([facility]) Immunization due Hallux valgus (acquired), left foot Degenerative cervical disc Primary insomnia Persistent disorder of initiating or maintaining sleep Vitamin D deficiency Hallux rigidus, left foot Environmental and seasonal allergies BMI 38.0-38.9,adult [facility] Diagnosis Type 2 diabetes mellitus with hyperglycemia, with long-term current use of insulin ([facility])- Primary documented in this encounter [facility] note* Diagnosis Environmental and seasonal allergies Pure hypercholesterolemia ([facility]) Pure hypercholesterolemia documented in this encounter [facility]* Diagnosis Type 2 diabetes mellitus without complication, without long-term current use of insulin ([facility]) documented in this encounter [facility]* Diagnosis Seborrheic keratosis- Primary Melanocytic nevus of trunk Benign neoplasm of skin of trunk, except scrotum Inflamed seborrheic keratosis Surgery, elective Unspecified elective surgery for purposes other than remedying health states documented in this encounter [facility]* Diagnosis Type 2 diabetes mellitus with hyperglycemia, with long-term current use of insulin ([facility]) documented in this encounter [facility]* Diagnosis Type 2 diabetes mellitus without complication, without long-term current use of insulin ([facility])- Primary documented in this encounter [facility] Healthcare Summary Purpose Family History No Family History Records FoundNo Family History Records FoundNo Family History Records FoundNo Family History Records Found Advance Directives Documents on File Type Date Recorded Patient Safety Associate Expl anation ACP-Advance Directive ACP-Power of Furniture Mover Helper Latest Code Status on File Code Status [...] AXIAL SKELETON Tyler Ramey MD [address] [place] [address] Referral ID Status Reason Start Date Expiration Date V isits Requested Visits Authorized [id number] Pending Review 05/24/2023 05/23/2024 1 1 Specialty Diagnoses / Procedures Referred By Contac t Referred To Contact Diagnoses Type 2 diabetes mellitus without complication, without long-term current use of insulin ([facility]) Jeanine Whitlock NP [address] [facility] [address] [place] [id number] Referral ID Status Reason Start Date Expiration Date Visits Re quested Visits Authorized [id number] Closed 1 1 Specialty Diagnoses / Procedures Referred By Contac t Referred To Contact Diagnoses Type 2 diabetes mellitus with hyperglycemia, with long-term current use of insulin ([facility]) Jeanine Whitlock NP [address] [address] Referral ID Status Reason Start Date Expiration Date V isits Requested Visits Authorized [id number] Authorized 03/10/2024 03/10/2027 1 1 Additional Source Comments INFORMATION SOURCE (unrecogn ized section and content) DATE CREATED AUTHOR 11/22/2017 [facility] DATE CREATED AUTHOR AUTHOR'S ORGANIZ ATION 05/15/2023 [facility] DATE CREATED AUTHOR AUTHOR'S ORGANIZ ATION [facility] DATE CREATED AUTHOR AUTHOR'S ORGANIZ ATION 04/05/2024 [facility] Special[facility] EPIC Care Teams (unrecognized sec tion and content) Sensitometrist Relationship Specialty Start Date End Date Jeanine Whitlock [address] [address] PCP - General 04/16/16 Sensitometrist Relationship Specialty Start Date End Date Jeanine Whitlock [address] [address] PCP - General 04/16/16 Sensitometrist Relationship Specialty Start Date End Date Jose Putnam DO [address] [place] [address] PCP - General Family Medicine 11/09/22 Jeanine Whitlock DIRECTOR [employer]CH[employer] [address] [place] [address] Nurse Practitioner Family Medicine 11/09/22 Sensitometrist Relationship Specialty Start Date End Date Jose Putnam DO [address] [place] [address] PCP - General Family Medicine 11/09/22 Jeanine Whitlock, DIRECTOR [employer] [address] [place] [address] Nurse Practitioner Family Medicine 11/09/22 Sensitometrist Relationship Specialty Start Date End Date Jose Putnam DO [address] [place] [address] PCP - General Family Medicine 11/09/22 Jeanine Whitlock, DIRECTOR [employer] DATA ARCHIT[employer]URE [address] [place] [address] Nurse Practitioner Family Medicine 11/09/22 Sensitometrist Relationship Specialty Start Date End Date Jose Putnam DO [address] [place] [address] PCP - General Family Medicine 11/09/22 Jeanine Whitlock, DIRECTOR [employer] ARCHITECTURE [address] [place] [address] Nurse Practitioner Family Medicine 11/09/22 Sensitometrist Relationship Specialty Start Date End Date Jose Putnam DO [address] [place] [address] PCP - General Family Medicine 11/09/22 Jeanine Whitlock, DIRECTOR [employer] ARCHITECTURE [address] [place] [address] Nurse Practitioner Family Medicine 11/09/22 Sensitometrist Relationship Specialty Start Date End Date Jose Putnam DO [address] [place] [address] PCP - General Family Medicine 11/09/22 Jeanine Whitlock, DIRECTOR [employer] ARCHIT[employer]URE [address] [place] [address] Nurse Practitioner Family Medicine 11/09/22 Sensitometrist Relationship Specialty Start Date End Date Jose Putnam DO [address] [place] [address] PCP - General Family Medicine 11/09/22 Jeanine Whitlock, DIRECTOR [employer]CH[employer] [address] [place] [address] Nurse Practitioner Family Medicine 11/09/22 Sensitometrist Relationship Specialty Start Date End Date Jose Putnam DO [address] [place] [address] PCP - General Family Medicine 11/09/22 Jeanine Whitlock, DIRECTOR [employer] ARCHIT[employer]URE [address] [place] [address] Nurse Practitioner Family Medicine 11/09/22 Sensitometrist Relationship Specialty Start Date End Date Jose Putnam DO [address] [place], [place] [id number] PCP - General Family Medicine 11/09/22 Jeanine Whitlock NP [address] [place] [id number] Nurse Practitioner Family Medicine 11/09/22 Reason for Visit (unrecogniz ed section and content) Specialty Diagnoses / Procedures Referred By Contac t Referred To Contact Radiology Diagnoses Age-related osteoporosis without current pathological fracture Procedures DEXA BONE DENSITY 2 SITES DEXA BONE DENSITY AXIAL SKELETON Tyler Ramey MD [address] [place] [address] Referral ID Status Reason Start Date Expiration Date V isits Requested Visits Authorized [id number] Pending Review 05/24/2023 05/23/2024 1 1 Reason [...] BE BASED ON THE PRIMARY CLINICAL RECORDS. [employer] provides no warranty or guarantee of the accuracy or completeness of information in this document.
--- NOTE | 2024-05-21 13:38 | XR_ITS ---
The [address] [address] Patient Name: AISHWARYA DUNN MRN: [id number] date: 1965 Sex: F Assigned Patient Location: Current Patient Location: Accession/Order Number: [id number] Exam Date: 05/21/2024 13:30 Report Date: 05/21/2024 15:14 At the request of: JADE ALVAREZ Procedure: XR foot SESAR min 3V EXAMINATION: XR foot SESAR min 3V HISTORY: BILATERAL FOOT PAIN COMPARISON: 12/10/2023 FINDINGS: RIGHT FINDINGS: BONES: First metatarsal-phalangeal joint fusion with no bony bridging. No acute fracture or dislocation. Mild degenerative changes with marginal osteophyte formation. Enthesopathic spurring of the calcaneus SOFT TISSUES: Negative. No visible soft tissue swelling. OTHER: Negative. LEFT FINDINGS: BONES: First metatarsal-phalangeal joint fusion with peripheral bony bridging. No acute fracture or dislocation. Mild degenerative changes with marginal osteophyte formation. Enthesopathic spurring of the calcaneus SOFT TISSUES: Negative. No visible soft tissue swelling. OTHER: Negative. XR/XR foot SESAR min 3V IMPRESSION: Bilateral first metatarsal-phalangeal joint fusion with no right and partial left bony bridging Electronically authenticated by: CRYSTAL SAM Date: 05/21/2024 15:14
== END 2024-05-21 13:30 | disposition home or self-care (01) ==
LOC: EC 13:30
PROVIDERS: PCP Nurse Practitioner; Visit Provider Physician Assistant
DX: M79.671 Pain in right foot (principal); M79.672 Pain in left foot; M24.675 Ankylosis, left foot; M24.674 Ankylosis, right foot
CPT/HCPCS: 73630

== ENCOUNTER 2024-06-30 08:12 | Outpatient (OUT) | payer OTHER, SELFPAY ==
--- NOTE | 2024-06-30 08:15 | XR_ITS ---
The [address] [address] Patient Name: AISHWARYA DUNN MRN: [id number] date: 1965 Sex: F Assigned Patient Location: [facility] Current Patient Location: [facility] Accession/Order Number: [id number] Exam Date: 06/30/2024 08:20 Report Date: 06/30/2024 10:27 At the request of: ANA SCHUSTER Procedure: XR foot RT min 3V PROCEDURE: XR foot RT min 3V COMPARISON: 05/07/2024 HISTORY: Right Foot Pain FINDINGS: BONES:Stable fusion the first metatarsal-phalangeal joint with a dorsal plate and screws. No significant bony bridging is observed. Moderate degenerative changes of the midfoot with marginal osteophyte formation. Moderate Enthesopathic spurring of the calcaneus SOFT TISSUES:Negative. No visible soft tissue swelling. EFFUSION:None visible. OTHER: Negative. XR/XR foot RT min 3V IMPRESSION: Stable first metatarsal phalangeal joint fusion with no significant bony bridging Electronically authenticated by: CRYSTAL SAM Date: 06/30/2024 10:27
== END 2024-06-30 08:13 | disposition home or self-care (01) ==
LOC: RAD 08:12
PROVIDERS: PCP Nurse Practitioner; Visit Provider Podiatrist Foot & Ankle Surgery
DX: M79.671 Pain in right foot (principal); M24.674 Ankylosis, right foot
CPT/HCPCS: 73630

== ENCOUNTER 2024-10-06 09:18 | Outpatient (OUT) | payer OTHER, SELFPAY ==
--- NOTE | 2024-10-06 09:44 | XR_ITS ---
The [address] [address] Patient Name: AISHWARYA DUNN MRN: [id number] date: 1965 Sex: F Assigned Patient Location: [facility] Current Patient Location: [facility] Accession/Order Number: [id number] Exam Date: 10/06/2024 10:51 Report Date: 10/06/2024 11:02 At the request of: ANA SCHUSTER DPM Procedure: XR foot RT min 3V RIGHT FOOT - 3 views CLINICAL HISTORY: Hallux Rigidus, Painful Hardware COMPARISON: Right foot series 06/30/2024 FINDINGS: There appears to be first MTP joint fusion with what appears to be a interval fracture involving the plate. There appears be periosteal reaction in the region of the first metatarsal head. Remaining digits appear unremarkable. XR/XR foot RT min 3V IMPRESSION: INTERVAL FRACTURE INVOLVING THE PLATE INVOLVING THE FIRST MTP JOINT FUSION Impression dictated by: Dudley Hollins Jr., D.O. 10/06/2024 11:02 AM Dictation Location: [place] [address] Electronically authenticated by: [id number] Y Date: 10/06/2024 11:02
== END 2024-10-06 09:19 | disposition home or self-care (01) ==
LOC: RAD 09:20
PROVIDERS: PCP Nurse Practitioner; Visit Provider Podiatrist Foot & Ankle Surgery
DX: M20.21 Hallux rigidus, right foot (principal); M24.674 Ankylosis, right foot; S99.101A Unspecified physeal fracture of right metatarsal, initial encounter for closed fracture
CPT/HCPCS: 73630

== ENCOUNTER 2024-11-25 15:42 | Outpatient (OUT) | payer OTHER, SELFPAY ==
--- NOTE | 2024-11-25 | XR_ITS ---
The [address] [address] Patient Name: AISHWARYA DUNN MRN: [id number] date: 1965 Sex: F Assigned Patient Location: [facility] Current Patient Location: [facility] Accession/Order Number: [id number] Exam Date: 11/25/2024 16:26 Report Date: 11/25/2024 16:28 At the request of: ANA SCHUSTER DPOleg Procedure: XR foot LT min 3V LEFT FOOT - 3 views CLINICAL HISTORY: Left first metatarsal pain for 3 months. COMPARISON: Foot series 05/21/2024 FINDINGS: No focal soft tissue abnormality. First MTP joint fusion without evidence of hardware complication. No acute bony process. Plantar spurring. Mild degenerative changes particularly involving the talonavicular joint and first tarsometatarsal joint. No bony erosions. XR/XR foot LT min 3V IMPRESSION: NO ACUTE BONY PROCESS. NO HARDWARE COMPLICATION. MILD DEGENERATIVE CHANGES WITH PLANTAR SPURRING. Impression dictated by: Dudley Hollins Jr., D.O. 11/25/2024 4:28 PM Dictation Location: [place] [address] Electronically authenticated by: [id number] Y Date: 11/25/2024 16:28
== END 2024-11-25 15:43 | disposition home or self-care (01) ==
LOC: RAD 15:43
PROVIDERS: PCP Nurse Practitioner; Visit Provider Podiatrist Foot & Ankle Surgery
DX: M79.672 Pain in left foot (principal); M77.32 Calcaneal spur, left foot
CPT/HCPCS: 73630

== ENCOUNTER 2025-02-16 12:35 | Outpatient (OUT) | payer OTHER, SELFPAY ==
--- NOTE | 2025-02-16 12:39 | ECG_ITS ---
The [facility] Test Date: 2025-02-16 Pat Name: AISHWARYA DUNN Department: Room: - Gender: Female Automatic Operator: : 1965 Requested By: ANA SCHUSTER Order Number: [id number] Reading MD: JOSE TORRES M.D. Measurements Intervals [place] Rate: 63 P: 43 WV: 138 QRS: 1 QRSD: 104 T: -13 QT: 441 QTc: 454 Interpretive Statements SINUS RHYTHM PROBABLE INFERIOR MYOCARDIAL INFARCTION [35 ms Q WAVE IN II/aVF], OF INDETERMINATE AGE Abnormal ECG Compared to ECG 01/10/2024 09:50:44 Myocardial infarct finding now present Sinus bradycardia no longer present Electronically Signed On 02-16-2025 20:12:22 EDT by JOSE TORRES M.D.
--- OUTSIDE RECORDS SUMMARY | 2025-02-16 13:21 | XMS_ITS | CCD ---
Author Organization [facility] Team Providers Care Live Ammunition Inspector Name Role Phone RINE, JEANINE L Unavailable Unavailable KABOUR, AMEER Unavailable Unavailable AHMAD, SHOWKAT Unavailable Unavailable KAMIREDDY, ADIREDDY Unavailable Unavailable Rine, Jeanine L Primary Care Provider [phone] Rine, Jeanine L Primary Care Provider RINE, JEANINE L Primary Care Unavailable TYLER RAMEY Referring Unavailable Jose Putnam DO Primary Care Provider [phone] Rine STATION MANAGER, Jeanine L Unavailable Rine RADIO RECORDER - STATION MANAGER, Jeanine L Primary Care Provider [phone] Agustin GUERRERO, Dot Lopez Attending Unavailable Rine DIRECTOR ELECTRONICS, Jeanine Terra Primary Care Unavailable Rine Jeanine BARBOUR Referring Unavailable RINE, JEANINE L Primary Care Unavailable VICTORIA AMADO Referring Unavail able RINE, JEANINE L Primary Care Unavailable FAWN CONTRERAS Referring Unavailable POLO DIAZ Attending Unavailable RINE, JEANINE L Attending Unavailable POLO DIAZ Attending Unavailable RINE, JEANINE L Attending Unavailable RINE, JEANINE L Attending Unavailable AMALIA FRANCIS Attending Unavailable RINE, JEANINE L Attending Unavailable RINE, JEANINE L Referring Unavailable OSMAN GILMORE Attending Unavailable RINE, JEANINE L Attending Unavailable Allergies Allergy Classification Reported Allergen(s) Allergy Type Date of Onset Reaction(s) Facility Unclassified (20 sources) Iodides Propensity to adverse reactions to drug 3 [facility] Work Phone: Unclassified (20 sources) Shellfish-Deriv ed Products Propensity to adverse reactions to drug 3 [facility] (4 sources) Seafood Propensity to adverse reactions to drug 3 [facility] (20 sources) Iodides Propensity to adverse reactions to drug 3 Hives [facility] Work Phone: (20 sources) Lisinopril Allergy to substance 3 Cough [facility] (2 sources) Lisinopril Drug Allergy 3 Cough, Other (See Comments) [place] Medications Current Medications Medication Drug Class(es) Dates Sig (Normalized) Sig (Original) acetaminophen 325 mg / HYDROcodone bitartrate 5 mg oral tablet (3 sources) Opioid Agonist Start: 04-07-2024 End: 06-08-2024 HYDROcodone-aceta minophen ([place]) 5-325 MG tablet every 6 (six) hours 04/07/2024 06/08/2024 Discontinued (Therapy completed) acetaminophen 325 mg / oxyCODONE hydrochloride 5 mg oral tablet (10 sources) Opioid Agonist Start: 01-16-2024 End: 06-08-2024 oxyCODONE-acetami nophen (Percocet) 5-325 MG tablet every 4 hours. 01/16/2024 06/08/2024 Discontinued (Therapy completed) ALPRAZolam 0.25 mg oral tablet (20 sources) Benzodiazepine ALPRAZolam (Xanax) 0.25 MG tablet Indications: Anxiety Take 0.25 mg by mouth as needed at bedtime for anxiety Active amLODIPine 5 mg oral tablet (20 sources) Dihydropyridine Calcium Channel Ayanna Start: 05-28-2023 End: 06-09-2024 amLODIPine (Norvasc) 5 MG tablet Indications: Essential hypertension TAKE 1 TABLET EVERY MORNING 90 tablet 3 06/09/2024 Active amoxicillin 875 mg oral tablet (2 sources) Penicillin-class Antibacterial Start: 07-10-2024 End: 07-17-2024 take 1 tablet by mouth in the morning amoxicillin (Amoxil) 875 MG tablet Indications: Acute non-recurrent maxillary sinusitis Take 1 tablet (875 mg) by mouth in the morning and 1 tablet (875 mg) before bedtime. Do all this for 7 days. 14 tablet 07/10/2024 07/17/2024 Active ARIPiprazole 5 mg oral tablet (20 sources) Atypical Antipsychotic Start: 12-31-2022 take 1 tablet by mouth once daily ARIPiprazole (Abilify) 5 MG tablet Take 5 mg by mouth Daily 12/31/2022 Active ascorbic acid 500 mg oral capsule (20 sources) Vitamin C Ascorbic Acid (Vitamin C) 500 MG capsule Indications: Wellness examination 1 (one) time each day at the same time Active Ascorbic Acid (V ITAMIN C) 500 MG CAPS every 24 hours Active aspirin 325 mg oral tablet (20 sources) Platelet Aggregation Inhibitor, Nonsteroidal Anti-inflammatory Drug Start: 04-07-2024 take 1 tablet by mouth every twelve hours aspirin 325 MG tablet Take 325 mg by mouth every 12 (twelve) hours 04/07/2024 Active Start: 01-16-2024 End: 03-06-2024 take 1 tablet [...] morning. 30 tablet 11 05/10/2023 05/09/2024 Active atorvastatin 10 mg oral tablet (20 sources) HMG-CoA Reductase Inhibitor Start: 03-25-2024 atorvastatin (Lipito r) 10 MG tablet Indications: Pure hypercholesterolemia TAKE 1 TABLET IN THE MORNING 90 tablet 1 03/25/2024 Active Start: 11-19-2023 End: 03-25-2024 take 0.5 tablet by mouth once daily atorvastatin (Lipitor) 10 MG tablet Indications: Pure hypercholesterolemia (CMS/HCC) Take 0.5 tablets (5 mg) by mouth Daily 11/19/2023 03/25/2024 Discontinued B Complex Vitamins (B COMPLE X 1 PO) (20 sources) B Complex Vitami ns (B COMPLEX 1 PO) Indications: Wellness examination Active B Complex Vitami ns (B COMPLEX 1 PO) Indications: Wellness examination as directed Orally Active b complex vitamins capsule (5 sources) take 1 capsule by mo ut once daily b complex vitamins capsule Take 1 capsule by mouth daily Active take 1 capsule by mouth once camila ly b complex vitamins capsule Take 1 capsule by mouth daily. 0 Active bisoprolol fumarate 10 mg oral tablet (20 sources) beta-Adrenergic Ayanna Start: 05-28-2023 End: 06-09-2024 bisoprolol (Zebeta) 10 MG tablet Indications: Essential hypertension TAKE 1 TABLET IN THE MORNING 90 tablet 3 06/09/2024 Active Blood Glucose Monitoring Suppl (FreeStyle Lite) w/Device kit (20 sources) Start: 11-20-2023 End: 09-14-2024 Blood Glucose Monitoring Suppl (FreeStyle Lite) w/Device kit USE DIRECTED 11/20/2023 09/14/2024 Discontinued (Therapy completed) Start: 11-20-2023 Blood Glucose Monitoring Suppl (FreeStyle Lite) w/Device kit USE DIRECTED 11/20/2023 Active calcium carbonate 500 mg oral tablet (20 sources) End: 09-14-2024 take 1 capsule by mouth in the morning calcium carbonate (Os-Wilfredo) 1250 (500 Ca) MG tablet Indications: Wellness examination Take 1 capsule by mouth in the morning. 09/14/2024 Discontinued (Therapy completed) take 1 capsule by mouth once camila ly calcium carbonate (OYSTER SHELL CALCIUM 500 MG) 1250 (500 Ca) MG tablet Take 1 capsule by mouth daily Active Calcium Carbonate / Vitamin D (5 sources) take 1 tablet by katiana th once daily Calcium Carbonate-Vitamin D (CALCIUM + D PO) Take 1 tablet by mouth daily Active take 1 tablet by mouth once jr y Calcium Carbonate-Vitamin D (CALCIUM + D PO) Take 1 tablet by mouth daily 0 Active cephalexin 500 mg oral capsule (3 sources) Cephalosporin Antibacterial Start: 01-16-2024 End: 01-30-2024 take 1 capsule by mouth in the morning, then take 1 capsule by mouth in the evening, then take 1 capsule by mouth at bedtime cephalexin (Keflex) 500 MG capsule Take 500 mg by mouth in the morning and 500 mg in the evening and 500 mg before bedtime. 01/16/2024 01/30/2024 Active chlorthalidone 50 mg oral tablet (20 sources) Thiazide-like Diuretic Start: 05-28-2023 End: 06-09-2024 chlorthalidone (Hygroton) 50 MG tablet Indications: Essential hypertension TAKE 1 TABLET EVERY MORNINGWITH FOOD 90 tablet 3 06/09/2024 Active Continuous Glucose Sensor (Dexcom G7 Sensor) misc (20 sources) Start: 11-17-2024 Continuous Glucose Sensor (Dexcom G7 Sensor) misc Indications: Type 2 diabetes mellitus with hyperglycemia, with long-term current use of insulin (HCC) USE DIRECTED AND CHANGE EVERY 14 DAYS 2 each 11/17/2024 Active Start: 11-17-2024 End: 11-17-2024 Continuous Glucose Sensor (D excom G7 Sensor) misc Indications: Type 2 diabetes mellitus with hyperglycemia, with long-term current use of insulin (HCC) 1 Units every 14 (fourteen) days 2 each 11/17/2024 11/17/2024 Discontinued Start: 11-17-2024 Continuous Glu cose Sensor (Dexcom G7 Sensor) misc Indications: Type 2 diabetes mellitus with hyperglycemia, with long-term current use of insulin (HCC) 1 Units every 14 (fourteen) days 2 each 11/17/2024 Active Start: 11-13-2024 End: 11-17-2024 Continuous Glucose Sensor (D excom G7 Sensor) misc Indications: Type 2 diabetes mellitus with hyperglycemia, with long-term current use of insulin (HCC) 1 Units every 14 (fourteen) days 2 each 11/13/2024 11/17/2024 Discontinued (Reorder) Start: 03-16-2024 End: 09-14-2024 Continuous Glucose Sensor (D excom G7 Sensor) misc Indications: Type 2 diabetes mellitus without complication, without long-term current use of insulin 1 Units every 14 (fourteen) days 2 each 03/16/2024 09/14/2024 Discontinued (Therapy completed) Start: 03-16-2024 Continuous Glu cose Sensor (Dexcom G7 Sensor) misc Indications: Type 2 diabetes mellitus without complication, without long-term current use of insulin 1 Units every 14 (fourteen) days 2 each 03/16/2024 Active Start: 03-16-2024 Continuous Glu cose Sensor (Dexcom G7 Sensor) misc Indications: Type 2 diabetes mellitus without complication, without long-term current use of insulin (CMS/HCC) 1 Units every 14 (fourteen) days 2 each 03/16/2024 Active Start: 03-06-2024 Continuous Glu cose Sensor (Dexcom G7 Sensor) misc Indications: Type 2 diabetes mellitus without complication, without long-term current use of insulin ([facility]) 1 Units every 14 (fourteen) days 2 each 03/06/2024 Active dextromethorphan hydrobromide 3 mg/ml / promethazine hydrochloride 1.25 mg/ml oral solution (6 sources) Phenothiazine, Uncompetitive V-ervrcy-L-aspartate Receptor Antagonist, Sigma-1 Agonist Start: 07-10-2024 End: 09-14-2024 promethazine-dextromethorpha n (Phenergan-DM) 6.25-15 MG/5ML syrup Indications: Acute non-recurrent maxillary sinusitis Take 5 mL by mouth every 4 (four) hours if needed for cough 240 mL 07/10/2024 09/14/2024 Discontinued (Therapy completed) diphenhydrAMINE hydrochloride 50 mg oral capsule (3 sources) Histamine-1 Receptor Antagonist Start: 07-23-2017 take 1 capsul e by mouth every six hours as needed diphenhydrAMINE (BENADRYL) 50 MG capsule Take 1 capsule by mouth every 6 hours as needed for Itching 20 capsule 0 07/23/2017 Active DULoxetine 60 mg delayed release oral capsule (20 sources) Serotonin and Norepinephrine Reuptake Inhibitor take 1 capsul e by mouth once daily DULoxetine (Cymbalta) [address] capsule Indications: Degenerative cervical disc Take 60 mg by mouth Daily Active empagliflozin 25 mg oral tablet (20 sources) Sodium-Glucose Cotransporter 2 Inhibitor Start: 03-06-2024 End: 03-06-2025 take 1 tablet by mouth once daily empagliflozin (Jardiance) 25 MG Indications: Type 2 diabetes mellitus without complication, without long-term current use of insulin ([facility]) Take 1 tablet (25 mg) by mouth Daily 30 tablet 03/06/2024 03/06/2025 Active Start: 11-19-2023 End: 01-21-2025 take 1 tablet by mouth once daily empagliflozin (Jardiance) 10 MG Indications: Type 2 diabetes mellitus without complication, without long-term current use of insulin ([facility]) Take 1 tablet (10 mg) by mouth Daily 30 tablet 01/22/2024 01/21/2025 Active escitalopram 10 mg oral tablet (20 sources) Serotonin Reuptake Inhibitor Start: 03-13-2024 take 1 tablet by mouth once daily escitalopram (Lexapro) 10 MG tablet Take 10 mg by mouth Daily 03/13/2024 Active fluconazole 100 mg oral tablet (20 sources) Azole Antifungal Start: 02-28-2024 End: 09-14-2024 take 1 tablet by mouth once daily fluconazole (Diflucan) 100 MG tablet Indications: Sandi vaginitis Take 1 tablet (100 mg) by mouth Daily 7 tablet 02/28/2024 09/14/2024 Discontinued (Therapy completed) levothyroxine sodium 0.1 mg oral tablet (20 sources) l-Thyroxine Start: 12-12-2023 End: 11-30-2024 Synthroid 100 MCG tablet Indications: Acquired hypothyroidism TAKE 1 TABLET IN THE MORNING BEFORE A MEAL 90 tablet 1 11/30/2024 Active take 1 tablet by mouth once jr y levothyroxine (SYNTHROID) 88 MCG tablet Take 1 tablet by mouth daily Active lisinopril 20 mg oral tablet (3 sources) Angiotensin Converting Enzyme Inhibitor take 1 tablet by mouth once daily lisinopril (PRINIVIL;ZESTRIL) 20 MG tablet Take 20 mg by mouth daily 0 Active LORazepam 1 mg oral tablet (5 sources) Benzodiazepine take 1 tablet by mouth once daily as needed for anxiety LORazepam (ATIVAN) 1 MG tablet Take 1 tablet by mouth nightly as needed for Anxiety. Active losartan potassium 50 mg oral tablet (20 sources) Angiotensin 2 Receptor Ayanna Start: take 1 tablet by mouth once daily losartan (Cozaar) 50 MG tablet Indications: Type 2 diabetes mellitus without complication, without long-term current use of insulin (HCC) TAKE 1 TABLET BY MOUTH EVERY DAY 90 tablet 1 01/10/2025 Active Start: 10-15-2024 End: 01-10-2025 take 1 tablet by mouth once daily losartan (Cozaar) 50 MG tablet Indications: Type 2 diabetes mellitus without complication, without long-term current use of insulin (HCC) Take 1 tablet (50 mg) by mouth Daily 90 tablet 10/15/2024 01/10/2025 Discontinued Start: 01-22-2024 End: 10-14-2024 take 0.5 tablet by mouth once daily losartan (Cozaar) 50 MG tablet Indications: Type 2 diabetes mellitus without complication, without long-term current use of insulin Take 0.5 tablets (25 mg) by mouth Daily 45 tablet 1 08/26/2024 10/14/2024 Discontinued (Reorder) Start: 05-28-2023 End: 01-22-2024 take 1 tablet by mouth once daily losartan (COZAAR) 100 MG tablet Take 1 tablet by mouth daily 05/28/2023 Active meloxicam 15 mg oral tablet (20 sources) Nonsteroidal Anti-inflammatory Drug Start: 05-28-2023 End: 06-09-2024 meloxicam (Mobic) 15 MG tablet Indications: Degenerative cervical disc TAKE 1 TABLET IN THE MORNING 90 tablet 3 06/09/2024 Active 24 hr metFORMIN hydrochloride 500 mg extended release oral tablet (20 sources) Biguanide Start: 06-09-2024 metFORMIN XR (Glucophage-XR) 500 MG 24 hr tablet Indications: Type 2 diabetes mellitus without complication, without long-term current use of insulin (HCC) TAKE 2 TABLETS EVERY MORNING AND 2 TABLETS BEFORE BEDTIME 360 tablet 3 06/09/2024 Active Start: 05-28-2023 End: 06-09-2024 take 2 tablets by mouth every twenty-four hours in the morning metFORMIN XR (Glucophage-XR) 500 MG 24 hr tablet Indications: Type 2 diabetes mellitus without complication, without long-term current use of insulin (CMS/HCC) Take 2 tablets (1,000 mg) by mouth in the morning and 2 tablets (1,000 mg) before bedtime. 360 tablet 3 05/28/2023 06/09/2024 Discontinued take 1 tablet by katiana th twice daily at mealtime, then take 2 tablets by mouth twice daily metFORMIN (GLUCOPHAGE) 500 MG tablet Take 1 tablet by mouth 2 times daily (with meals) Take two tablets by mouth two times daily Active take 2 tablets by mo uth twice daily at mealtime metFORMIN (GLUCOPHAGE) 500 MG tablet Take 500 mg by mouth 2 times daily (with meals) Take two tablets by mouth two times daily 0 Active montelukast 10 mg oral tablet (20 sources) Leukotriene Receptor Antagonist Start: 05-28-2023 End: 03-25-2024 montelukast (Singulair) 10 MG tablet Indications: Environmental and seasonal allergies TAKE 1 TABLET IN THE MORNING 90 tablet 3 03/25/2024 Active ondansetron 4 mg oral tablet (3 sources) Serotonin-3 Receptor Antagonist Start: 01-16-2024 End: 01-27-2024 take 1 tablet by mouth every six hours as needed for nausea ondansetron (Zofran) 4 MG tablet Take 1 tablet by mouth every 6 (six) hours if needed for nausea 01/16/2024 01/27/2024 Active OZEMPIC, 0.25 OR 0.5 MG/DOSE, 2 MG/3ML SOPN (2 sources) Start: 03-10-2024 OZEMPIC, 0.25 OR 0.5 MG/DOSE, 2 MG/3ML SOPN INJECT 0.25 MG SUBCUTANEOUSLY WEEKLY 03/10/2024 Active OZEMPIC, 1 MG/DOSE, 4 MG/3ML SOPN sc injection (2 sources) Start: 05-05-2024 OZEMPIC, 1 MG/DOSE, 4 MG/3ML SOPN sc injection Inject 1 mg into the skin once a week 05/05/2024 Active predniSONE 10 mg oral tablet (2 sources) Start: 07-10-2024 End: 07-18-2024 take 4 tablets by mouth once daily, then take 3 tablets by mouth once daily, then take 2 tablets by mouth once daily, then take 1 tablet by mouth once daily predniSONE (Deltasone) 10 MG tablet Indications: Acute non-recurrent maxillary sinusitis Take 4 tablets (40 mg) by mouth Daily for 2 days, THEN 3 tablets (30 mg) Daily for 2 days, THEN 2 tablets (20 mg) Daily for 2 days, THEN 1 tablet (10 mg) Daily for 2 days. 20 tablet 07/10/2024 07/18/2024 Active 1 mg dose 1.5 ml semaglutide 1.34 mg/ml pen injector (4 sources) Start: 05-04-2024 End: 05-05-2024 Semaglutide, 1 MG/DOSE, (OZEMPIC, 1 MG/DOSE,) 2 MG/1.5ML SOPN Inject 1 mg into the skin once a week 05/04/2024 Active semaglutide (Ozempic, 1 MG/DOSE,) 4 MG/3ML solution pen-injector (7 sources) Start: 01-01-2025 End: 01-22-2025 inject 1 mg by subcutaneous injection every week semaglutide (Ozempic, 1 MG/DOSE,) 4 MG/3ML solution pen-injector Indications: Type 2 diabetes mellitus with hyperglycemia, with long-term current use of insulin (HCC) Inject 1 mg under the skin 1 (one) time per week 1 each 5 01/01/2025 01/22/2025 Discontinued Start: 01-01-2025 inject 1 mg by subcu taneous injection every week semaglutide (Ozempic, 1 MG/DOSE,) 4 MG/3ML solution pen-injector Indications: Type 2 diabetes mellitus with hyperglycemia, with long-term current use of insulin (HCC) Inject 1 mg under the skin 1 (one) time per week 1 each 5 01/01/2025 Active Start: 05-05-2024 End: 06-07-2024 inject 1 mg by subcutaneous injection every week semaglutide (Ozempic, 1 MG/DOSE,) 4 MG/3ML solution pen-injector Indications: Type 2 diabetes mellitus without complication, without long-term current use of insulin (CMS/HCC) Inject 1 mg under the skin 1 (one) time per week 3 mL 4 05/05/2024 06/07/2024 Discontinued Start: 05-05-2024 inject 1 mg by subcu taneous injection every week semaglutide (Ozempic, 1 MG/DOSE,) 4 MG/3ML solution pen-injector Indications: Type 2 diabetes mellitus without complication, without long-term current use of insulin (CMS/HCC) Inject 1 mg under the skin 1 (one) time per week 3 mL 4 05/05/2024 Active Semaglutide, 2 MG/DOSE, (Ozempic, 2 MG/DOSE,) 8 MG/3ML solution pen-injector (20 sources) Start: 01-22-2025 inject 2 mg by subcutaneous injection every week Semaglutide, 2 MG/DOSE, (Ozempic, 2 MG/DOSE,) 8 MG/3ML solution pen-injector Indications: Type 2 diabetes mellitus with hyperglycemia, with long-term current use of insulin (HCC) Inject 2 mg under the skin 1 (one) time per week 3 mL 5 01/22/2025 Active Start: 11-22-2024 End: 12-14-2024 inject 2 mg by subcutaneous injection every week Semaglutide, 2 MG/DOSE, (Ozempic, 2 MG/DOSE,) 8 MG/3ML solution pen-injector Indications: Type 2 diabetes mellitus without complication, without long-term current use of insulin (HCC) INJECT 2 MG SUBCUTANEOUSLY WEEKLY 3 mL 11/22/2024 12/14/2024 Discontinued (Therapy completed) Start: 11-22-2024 inject 2 mg by subcu taneous injection every week Semaglutide, 2 MG/DOSE, (Ozempic, 2 MG/DOSE,) 8 MG/3ML solution pen-injector Indications: Type 2 diabetes mellitus without complication, without long-term current use of insulin (HCC) INJECT 2 MG SUBCUTANEOUSLY WEEKLY 3 mL 11/22/2024 Active Start: 06-08-2024 End: 11-22-2024 inject 2 mg by subcutaneous injection every week Semaglutide, 2 MG/DOSE, (Ozempic, 2 MG/DOSE,) 8 MG/3ML solution pen-injector Indications: Type 2 diabetes mellitus without complication, without long-term current use of insulin (HCC) Inject 2 mg under the skin 1 (one) time per week 3 mL 06/08/2024 11/22/2024 Discontinued Start: 06-08-2024 inject 2 mg by subcu taneous injection every week Semaglutide, 2 MG/DOSE, (Ozempic, 2 MG/DOSE,) 8 MG/3ML solution pen-injector Indications: Type 2 diabetes mellitus without complication, without long-term current use of insulin (HCC) Inject 2 mg under the skin 1 (one) time per week 3 mL 06/08/2024 Active Start: 06-08-2024 inject 2 mg by subcu taneous injection every week Semaglutide, 2 MG/DOSE, (Ozempic, 2 MG/DOSE,) 8 MG/3ML solution pen-injector Indications: Type 2 diabetes mellitus without complication, without long-term current use of insulin Inject 2 mg under the skin 1 (one) time per week 3 mL 06/08/2024 Active Start: 06-08-2024 inject 2 mg by subcu taneous injection every week Semaglutide, 2 MG/DOSE, (Ozempic, 2 MG/DOSE,) 8 MG/3ML solution pen-injector Indications: Type 2 diabetes mellitus without complication, without long-term current use of insulin (CMS/HCC) Inject 2 mg under the skin 1 (one) time per week 3 mL 06/08/2024 Active sulfacetamide sodium 100 mg/ml ophthalmic solution (14 sources) Sulfonamide Antibacterial Start: 06-15-2023 End: 09-14-2024 sulfacetamide (Bleph-10) 10 % ophthalmic solution 2 drops 06/15/2023 09/14/2024 Discontinued (Therapy completed) therapeutic multivitamin-minera ls (THERAGRAN-M) tablet (5 sources) take 1 tablet by mouth once daily therapeutic multivitamin-minera ls (THERAGRAN-M) tablet Take 1 tablet by mouth daily Active take 1 tablet by mouth once jr y therapeutic multivitamin-minerals (THERAGRAN- M) tablet Take 1 tablet by mouth daily. 0 Active therapeutic multivitamin-minerals (Theragran-M) tablet (20 sources) take 1 tablet by mouth once daily therapeutic multivitamin-minerals (Theragran-M) tablet Take 1 tablet by mouth Daily Active traZODone hydrochloride 150 mg oral tablet (20 sources) Serotonin Reuptake Inhibitor End: 2024 traZODone (Desyrel) 150 MG tablet Indications: Insomnia due to other mental disorder Take 75 mg by mouth as needed at bedtime 09/14/2024 Discontinued (Therapy completed) take 1 tablet by mouth once jr y traZODone (DESYREL) 150 MG tablet Take 1 tablet by mouth nightly Active zinc gluconate 50 mg oral tablet (20 sources) take 1 tablet by katiana th in the morning zinc gluconate 50 MG tablet Indications: Wellness examination Take 50 mg by mouth in the morning. Active Completed/Discontinued Medications Medication Drug Class(es) Dates Sig (Normalized) Sig (Original) Ozempic, 2 MG/DOSE, 8 MG/3ML solution pen-injector (3 sources) Start: 10-29-2023 End: 01-22-2024 Ozempic, 2 MG/DOSE, 8 MG/3ML solution pen-injector Indications: Type 2 diabetes mellitus without complication, without long-term current use of insulin (CMS/HCC) INJECT 2MG SUBCUTANEOUSLY ONCE WEEKLY (EVERY 7 DAYS) 9 mL 1 10/29/2023 01/22/2024 Discontinued (Therapy completed) Start: 10-29-2023 Ozempic, 2 MG/ DOSE, 8 MG/3ML solution pen-injector Indications: Type 2 diabetes mellitus without complication, without long-term current use of insulin (CMS/HCC) INJECT 2MG SUBCUTANEOUSLY ONCE WEEKLY (EVERY 7 DAYS) 9 mL 1 10/29/2023 Active Semaglutide,0.25 or 0.5MG/DO S, (Ozempic, 0.25 or 0.5 MG/DOSE,) 2 MG/3ML solution pen-injector (9 sources) Start: 05-01-2024 End: 05-04-2024 Semaglutide,0.25 or 0.5MG/DO S, (Ozempic, 0.25 or 0.5 MG/DOSE,) 2 MG/3ML solution pen-injector Indications: Type 2 diabetes mellitus with hyperglycemia, with long-term current use of insulin ([facility]) INJECT 0.25 MG SUBCUTANEOUSLY WEEKLY 2 mL 5 05/01/2024 05/04/2024 Discontinued (Therapy completed) Start: 05-01-2024 Semaglutide,0. 25 or 0.5MG/DOS, (Ozempic, 0.25 or 0.5 MG/DOSE,) 2 MG/3ML solution pen-injector Indications: Type 2 diabetes mellitus with hyperglycemia, with long-term current use of insulin ([facility]) INJECT 0.25 MG SUBCUTANEOUSLY WEEKLY 2 mL 5 05/01/2024 Active Start: 03-10-2024 End: 05-01-2024 Semaglutide,0.25 or 0.5MG/DO S, (Ozempic, 0.25 or 0.5 MG/DOSE,) 2 MG/3ML solution pen-injector Indications: Type 2 diabetes mellitus with hyperglycemia, with long-term current use of insulin ([facility]) Inject 0.25 mg under the skin 1 (one) time per week 3 mL 1 03/10/2024 05/01/2024 Discontinued Start: 03-10-2024 Semaglutide,0. 25 or 0.5MG/DOS, (Ozempic, 0.25 or 0.5 MG/DOSE,) 2 MG/3ML solution pen-injector Indications: Type 2 diabetes mellitus with hyperglycemia, with long-term current use of insulin (CMS/HCC) Inject 0.25 mg under the skin 1 (one) time per week 3 mL 1 03/10/2024 Active Tirzepatide (Mounjaro) 2.5 MG/0.5ML solution auto-injector (2 sources) Start: 12-14-2024 End: 01-01-2025 inject 2.5 mg by subcutaneous injection every week Tirzepatide (Mounjaro) 2.5 MG/0.5ML solution auto-injector Indications: Type 2 diabetes mellitus with hyperglycemia, with long-term current use of insulin (HCC) Inject 2.5 mg under the skin 1 (one) time per week 2 mL 1 12/14/2024 01/01/2025 Discontinued (Cost of medication) Start: 12-14-2024 inject 2.5 mg by sub cutaneous injection every week Tirzepatide (Mounjaro) 2.5 MG/0.5ML solution auto-injector Indications: Type 2 diabetes mellitus with hyperglycemia, with long-term current use of insulin (HCC) Inject 2.5 mg under the skin 1 (one) time per week 2 mL 1 12/14/2024 Active Problems Active Problems Problem Classification Problem Date Documented Date Episodic/Chronic Acquired foot deformities (20 sources) Toe joint rigid; Translations: [Hallux rigidus, left foot] Onset: 01-21-2024 01-21-2024 Chronic Anxiety disorders (20 sources) Panic attack; Translations: [Panic disorder [episodic paroxysmal anxiety]] Onset: 07-20-2017 Resolved: 03-06-2024 07-22-2017 Chronic Asthma (20 sources) Mild intermittent asthma; Translations: [Mild intermittent asthma, uncomplicated] Onset: 11-09-2022 Chronic Cancer of cervix (2 sources) Cervicovaginal cytology: High grade squamous intraepithelial lesion or carcinoma; Translations: [High grade squamous intraepithelial lesion on cytologic smear of cervix (HGSIL)] Onset: 08-04-2024 08-04-2024 Episodic Diabetes mellitus with complications (20 sources) Hyperglycemia due to type 2 diabetes mellitus; Translations: [Type 2 diabetes mellitus with hyperglycemia] Onset: 01-21-2024 01-21-2024 Chronic Diabetes mellitus without complication (20 sources) Diabetes mellitus; Translations: [Type 2 diabetes mellitus without complications] Onset: 11-09-2022 Resolved: 05-10-2023 07-22-2017 Chronic Disorders of lipid metabolism (20 sources) Pure hypercholesterolemia; Translations: [Pure hypercholesterolemia, unspecified] Onset: 11-09-2022 11-09-2022 Chronic Essential hypertension (20 sources) Hypertensive disorder; Translations: [Essential (primary) hypertension] Onset: 11-09-2022 07-22-2017 Chronic Genitourinary symptoms and ill-defined conditions (2 sources) Dysuria; Translations: [Dysuria] 09-14-2024 Episodic Immunizations and screening for infectious disease (4 sources) Immunization due; Translations: [Encounter for immunization] Onset: 06-19-2024 03-06-2024 Episodic Miscellaneous mental health disorders (2 sources) Primary insomnia; Translations: [Primary insomnia] 03-06-2024 Chronic Mood disorders (20 sources) Severe major depression, single episode, without psychotic features; Translations: [Major depressive disorder, single episode, severe without psychotic features] Onset: 07-20-2017 07-22-2017 Chronic Mycoses (1 source) Candidiasis of vagina; Translations: [Sandi vaginitis] 02-28-2024 Episodic Nutritional deficiencies (20 sources) Vitamin D deficiency; Translations: [Vitamin D deficiency, unspecified] Onset: 11-09-2022 11-09-2022 Chronic Osteoporosis (2 sources) Senile osteoporosis; Translations: [Age-related osteoporosis without current pathological fracture] Onset: 07-15-2023 07-15-2023 Chronic Other and unspecified benign neoplasm (2 sources) Melanocytic nevus of trunk; Translations: [Melanocytic nevi of trunk] 04-03-2024 Episodic Other nutritional; endocrine; and metabolic disorders (20 sources) Obesity; Translations: [Obesity, unspecified] Onset: 11-09-2022 11-09-2022 Chronic Other nutritional; endocrine; and metabolic disorders (4 sources) Body mass index 30+ - obesity; Translations: [Body mass index (BMI) 38.0-38.9, adult] 03-06-2024 Chronic Other nutritional; endocrine; and metabolic disorders (2 sources) Obesity caused by energy imbalance; Translations: [Morbid (severe) obesity due to excess calories] 06-08-2024 Chronic Other screening for suspected conditions (not mental disorders or infectious disease) (13 sources) Cardiovascular stress test abnormal; Translations: [Abnormal result of other cardiovascular function study] Onset: 07-21-2017 Resolved: 07-22-2017 07-22-2017 Episodic Other skin disorders (2 sources) Seborrheic keratosis; Translations: [Other seborrheic keratosis] 04-03-2024 Episodic Other skin disorders (2 sources) Inflamed seborrheic keratosis; Translations: [Inflamed seborrheic keratosis] 04-03-2024 Episodic Other upper respiratory disease (20 sources) Allergic disposition; Translations: [Other allergic rhinitis] Onset: 11-09-2022 11-09-2022 Chronic Other upper respiratory infections (2 sources) Acute maxillary sinusitis; Translations: [Acute maxillary sinusitis, unspecified] 07-10-2024 Episodic Residual codes; unclassified (2 sources) Obstructive sleep apnea syndrome; Translations: [Obstructive sleep apnea (adult) (pediatric)] 06-16-2024 Chronic Residual codes; unclassified (2 sources) Patient encounter status; Translations: [Encounter for procedure for purposes other than remedying health state, unspecified] 04-03-2024 Episodic Spondylosis; intervertebral disc disorders; other back problems (20 sources) Degeneration of cervical intervertebral disc; Translations: [Other cervical disc degeneration, unspecified cervical region] Onset: 11-09-2022 11-09-2022 Chronic Thyroid disorders (20 sources) Acquired hypothyroidism; Translations: [Hypothyroidism, unspecified] Onset: 11-09-2022 11-09-2022 Chronic Past or Other Problems Problem Classification Problem Date Documented Da te Episodic/Chronic Nonspecific chest pain (7 sources) Chest pain, unspecified; Translations: [Chest pain] Onset: 07-20-2017 Resolved: 07-22-2017 07-22-2017 Episodic Other circulatory disease (2 sources) Low blood pressure; Translations: [Other hypotension] 01-22-2024 Episodic Residual codes; unclassified (20 sources) Insomnia; Translations: [Insomnia, unspecified] Onset: 11-09-2022 11-09-2022 Episodic Results Test Name Value Interpretation Reference Range Facility Surgical Pathology Reporton 08-04-2024 Surgical Pathology Report (NOTE) Path Number: [id number] -- Diagnosis -- A. Endocervix, curettage: Mucus with denuded benign endocervical epithelial cells. No squamous intraepithelial lesion seen. B. Uterine cervix, 11:00, colposcopic biopsy: Endocervical mucosa, negative for dysplasia. No squamous mucosa seen. C. Uterine cervix, 7:00, colposcopic biopsy: LEE-1 (low-grade squamous intraepithelial lesion). Smiley Nuñez, M. D. 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 AISHWARYA AGUILA, ECC Received in formalin are mucinous tissue fragments, 1.0 x 0.4 x 0.2 cm in aggregate. Entirely 1cs (specimen received on a brush, brush returned to container). B. AISHWARYA AGUILA, 11:00 Received in formalin is one phelps-white tissue fragment, 0.2 x 0.2 x 0.1 cm. Entirely 1cs. C. AISHWARYA AGUILA, 7:00 Received in formalin is one phelps-white tissue fragment, 0.4 x 0.3 x 0.1 cm. Entirely 1cs. lm tm Elida Gonzalez M.D./mj:08/05/2024 Microscopic Description A-C. 2 ALEYDA reviewed for each. Microscopic examination performed. Deeper levels and p16 immunohistochemistry are also reviewed for part B. No squamous mucosa is seen, and p16 is negative. Immunohistochemistry for p16 is also reviewed for part C and is negative for block positivity. Controls are appropriate. Processing Lab: [address] [id number] Interpret[place] [address] SURGICAL PATHOLOGY CONSULTATION Patient Name: AISHWARYA AGUILA Med Rec: [id number] [facility] [employer] [facility] ANATOMIC PATHOLOGY [address] [facility]. [place], [place] [address] [facility] HPV DNA High Riskon 06-23-19 HPV Interp [facility] Comment on above: Result Comment: This test amplifies and detects DNA of 14 high-risk HPV types associated with cervical cancer and its precursor lesions (HPV types 16,18, 31, 33, 35, 39, 45, 51, 52, 56, 58, 59, 66, and 68). Sensitivity may be affected by specimen collection methods, stage of infection, and the presence of interfering substances. Results should be interpreted in conjunction with other available laboratory and clinical data. A negative high-risk HPV result does not exclude the possibility of future cytologic HSIL or underlying CIN2-3 or cancer. This test is intended for medical purposes only and is not valid for the evaluation of suspected sexual abuse or for other forensic purposes. Performed By: #### H PVH #### [facility] [address] [place] [id number] Machine Cementer: Asad Draper MD HPV Type 16 Detected Abnormal [facility] Comment on above: Performed By: #### H PVH #### [address] [address] Machine Cementer: Asad Draper MD HPV Type 18 Not detected Normal [facility] Comment on above: Performed By: #### H PVH #### [facility] [employer] [address] [place] [id number] Machine Cementer: Asad Draper MD Other High Risk HPV Not detected Normal [facility] Comment on above: Performed By: #### H PVH #### [address] [address] Machine Cementer: Asad Draper MD Chlamydia/GC DNA, TPon 06-22 Chlamydia Probe, TP Negative Normal [facility] Comment on above: Result Comment: CHLA MYDIA TRACHOMATIS DNA not detected by nucleic acid amplification. This test is intended for medical purposes only and is not valid for the evaluation of suspected sexual abuse or for other forensic purposes. In certain contexts, culture may be required to meet applicable laws and regulations for diagnosis of C. trachomatis and N. gonorrhoeae infections. Per 2014 CDC recommendations, this test does not include confirmation of positive results by an alternative nucleic acid target. Performed By: #### C YTCGP #### [address] [address] Machine Cementer: Asad Draper MD Gonorrhea Probe, TP Negative Normal [facility] Comment on above: Result Comment: NEIS SERIA GONORRHOEAE DNA not detected by nucleic acid amplification. This test is intended for medical purposes only and is not valid for the evaluation of suspected sexual abuse or for other forensic purposes. In certain contexts, culture may be required to meet applicable laws and regulations for diagnosis of C. trachomatis and N. gonorrhoeae infections. Per 2014 CDC recommendations, this test does not include confirmation of positive results by an alternative nucleic acid target. Performed By: #### C YTC #### [address] [id number] Machine Cementer: Asad Draper MD HPV DNA High Riskon 06-22-19 HPV Sample .THIN PREP Normal [facility] Comment on above: Performed By: #### H PVH #### [address] [id number] Machine Cementer: Asad Draper MD Source CERVICAL MATERIAL Normal [facility] [place] [facility] Comment on above: Performed By: #### H PV #### [address] [id number] Machine Cementer: Asad Draper MD Cytology Reporton 06-19-2024 Cytology report Cyto stain.thin prep Doc (Cvx/Vag) (NOTE) Path Number: [id number] DIAGNOSIS Imaged ThinPrep Pap - Cervical (1 monolayer slide): Specimen Adequacy: Satisfactory for evaluation. - Endocervical/transforma tion zone component present. Descriptive Diagnosis: High-grade squamous intraepithelial lesion (HSIL). Cytotech Screener: MULUGETA Electronically Signed Out Larry Stark M.D. cherelle/06/30/2024 Procedure/Addendum HPV Procedure Report Date Ordered: 06/22/2024 Status: Signed Out Date Complete: 06/23/2024 By: System Interface Date Reported: 06/23/2024 Sample: HPV Type 16 Result: DETECTED Ref Range: Not Detected Sample: HPV Type 18 Result: Not Detected Ref Range: Not Detected Sample: Other High Risk HPV Result: Not Detected Ref Range: Not Detected Sample: HPV Interp Result: Ref Range: This test amplifies and detects DNA of 14 high-risk HPV types associated with cervical cancer and its precursor lesions (HPV types 16,18, 31, 33, 35, 39, 45, 51, 52, 56, 58, 59, 66, and 68). Sensitivity may be affected by specimen collection methods, stage of infection, and the presence of interfering substances. Results should be interpreted in conjunction with other available laboratory and clinical data. A negative high-risk HPV result does not exclude the possibility of future cytologic HSIL or underlying CIN2-3 or cancer. This test is intended for medical purposes only and is not valid for the evaluation of suspected sexual abuse or for other forensic purposes. Performed at [address] [id number] ([phone] Source of Specimen: A: Imaged ThinPrep Pap - Cervical (1 monolayer slide) HPV Reflex?................ ......HPV Regardless Clinical History Postmenopausal Z01.419 Routine urogynecology physician exam without abnormal findings LMP: 06/20/15 Processing Lab: [address] [id number] Interpretation performed at [address] [phone] The Pap smear is a screening test primarily for squamous epithelial lesions, which is subject to both false negative and false positive results. Your patient should be reminded to consult you immediately if she experiences any suspicious signs or symptoms, regardless of her Pap smear result. GYNECOLOGIC CYTOLOGY REPORT Patient Name: AISHWARYA AGUILA [facility] Rec: [id number] [facility] ANATOMIC PATHOLOGY [address] [place] [id number] Normal [facility] BI MAMMOGRAM SCREENING TOMOS YNTHESIS BILATERALon 06-12-2024 BI MAMMOGRAM SCREENING TOMOSYNTHESIS BILATERAL This is a summary report. The complete report is available in the patient's medical record. If you cannot access the medical record, please contact the sending organization for a detailed fax or copy. Examination: BI MAMMOGRAM SCREENING TOMOSYNTHESIS BILATERAL Clinical History: annual screening Technique: Screening digital mammography study of both breasts was performed with 2-D and 3-D tomosynthesis imaging. Study was compared to the prior exam dated 05/24/2023. Findings: There is no evidence of interval dominant spiculated mass, grouped microcalcifications, or skin thickening which would be suggestive of malignancy. A few benign-appearing calcifications are seen bilaterally. IMPRESSION: Impression: No specific evidence of malignancy seen in either breast. BIRADS 2 - Benign Findings DENSITY: The breasts are almost entirely fatty. FOLLOW-UP: Routine Screening Mammogram ELECTRONICALLY SIGNED BY: Martin Larkin M.D. Normal Not Available No Panel Informationon 04-03 Complexity comment: Snip excision Informed consent: discussed and consent obtained Hemostasis achieved with: electrodesiccation [employer] Destruction method comment: Snip removal Anesthesia: the lesion was anesthetized in a standard fashion Anesthetic: 1% lidocaine w/ epinephrine 1-100,000 buffered w/ 8.4% NaHCO3 Hemostasis achieved with: electrodesiccation Outcome: patient tolerated procedure well with no complications [employer] DEXA BONE DENSITY 2 SITESon 07-17-2023 DEXA BONE DENSITY 2 SITES DEXA BONE DENSITY 2 SITES 07/15/2023 12:21 PM EST Indication: Screening. Comparison: Accurate comparison is not possible due to differences in equipment. [employer] Can[employer]y. Lumbar spine and bilateral hips. Lumbar spine [...] Squires MD 07/17/23 Final result Normal [facility] DXA Bone [Mass/Area] Bone de nsityon 07-17-2023 Some evidence of elevated bone mineral density [facility] DEXA BONE DENSITY 2 SITES 07/15/2023 12:21 PM EST Indication: Screening. Comparison: Accurate comparison is not possible due to differences in equipment. [employer] Prodigy. Lumbar spine and bilateral hips. Lumbar [...] density 1.419 g/sq cm. T score 3.3. [facility] Bernardo Azar MD - 07/17/2023 DEXA BONE DENSITY 2 SITES 07/15/2023 12:21 PM EST Indication: Screening. Comparison: Accurate comparison is not possible due to differences in equipment. [employer]. Lumbar spine and bilateral hips. Lumbar spine [...] Some evidence of elevated bone mineral density [employer] DXA Bone [Mass/Area] Bone de nsityOrdered By: Bernardo Squires on 07-17-2023 [employer] Work Phone: DXA Bone [Mass/Area] Bone de nsityon 07-15-2023 Radiology Study observation (narrative) [facility] [employer] CBC with Auto Differentialon 12-19-2022 Basophils (Bld) [#/Vol] 0.05 10*3/uL [employer] [facility] Basophils/100 WBC (Bld) 0 % 0 - 2 % [facility] Eosinophils (Bld) [#/Vol] 0.07 10*3/uL [facility] Eosinophils/100 WBC (Bld) 1 % 1 - 4 % [facility] Erythrocyte distribution width (RBC) [Ratio] 13.8 % 11.8 - 14.4 % [facility] Hematocrit (Bld) [Volume fraction] 47.2 % High 36.3 - 47.1 % [facility] Hemoglobin (Bld) [Mass/Vol] 15.9 g/dL High 11.9 - 15.1 g/dL [facility] Immature granulocytes (Bld) [#/Vol] 0.09 10*3/uL [facility] Immature granulocytes/100 WBC (Bld) 1 % High 0 [facility] Interpretation and review of laboratory results Abnormal [facility] Lymphocytes/100 WBC (Bld) 16 % Low 24 - 43 % [facility] Lymphocytes/100 WBC (Bld) 1.85 % [facility] MCH (RBC) [Entitic mass] 28.8 pg 25.2 - 33.5 pg [facility] MCHC (RBC) [Mass/Vol] 33.7 g/dL 28.4 - 34.8 g/dL [facility] MCV (RBC) [Entitic vol] 85.5 fL 82.6 - 102.9 fL [facility] Monocytes/100 WBC (Bld) 8 % 3 - 12 % [facility] Monocytes/100 WBC (Bld) 0.89 % [facility] Neutrophils/100 WBC (Bld) 74 % High 36 - 65 % [facility] Nucleated RBC/100 WBC (Bld) [Ratio] 0.0 % 0.0 per 100 WBC [facility] Platelet mean volume (Bld) [Entitic vol] 9.0 fL 8.1 - 13.5 fL [facility] Platelets (Bld) [#/Vol] 335 10*3/uL [facility] RBC (Bld) [#/Vol] 5.52 10*6/uL High 3.95 - 5.1 1 m/uL [facility] Segmented neutrophils/100 WBC (Bld) 8.61 % High [facility] WBC other (Bld) [#/Vol] 11.[address] [facility] Comprehensive Metabolic Pane melonie 12-19-2022 Albumin [Mass/Vol] 5.1 g/dL 3.5 - 5.2 g/dL [facility] Albumin/Globulin [Mass ratio] 1.6 {ratio} 1.0 - 2.5 [facility] ALP [Catalytic activity/Vol] 74 U/L 35 - 104 U/L [facility] ALT [Catalytic activity/Vol] 44 U/L High 5 - 33 U/L [facility] Anion gap [Moles/Vol] 14 mmol/L 9 - 17 mmol/L [facility] AST [Catalytic activity/Vol] 27 U/L NINF - 32 U/L [facility] Bilirubin [Mass/Vol] 1.7 mg/dL High 0.3 - 1 .2 mg/dL [facility] Calcium [Mass/Vol] 10.5 mg/dL High 8.6 - 10. 4 mg/dL [facility] Chloride [Moles/Vol] 94 mmol/L Low 98 - 10 7 mmol/L [facility] CO2 [Moles/Vol] 30 mmol/L 20 - 31 mmol/L [facility] Creatinine [Mass/Vol] 0.8 mg/dL 0.5 - 0.9 mg/dL [facility] GFR/1.73 sq M.predicted MDRD (S/P/Bld) [Vol rate/Area] - PINF [facility] Comment on above: These results are [...] 137 mg/dL High 70 - 99 mg/dL [facility] Interpretation and review of laboratory results Abnormal [facility] Potassium [Moles/Vol] 4.3 mmol/L 3.7 - 5.3 mmol/L [facility] Protein [Mass/Vol] 8.2 g/dL 6.4 - 8.3 g/dL [facility] Sodium [Moles/Vol] 138 mmol/L 135 - 144 mmol/L [facility] Urea nitrogen [Mass/Vol] 16 mg/dL 6 - 20 mg/dL [facility] Urea nitrogen/Creatinine [Mass ratio] 20 mg/mg 9 - [address] [facility] Lipid Panelon 12-19-2022 Cholesterol [Mass/Vol] 115 mg/dL NINF - 200 mg/dL [facility] Comment on above: Cholesterol Guidelines: <200 Desirable 200-240 Borderline >240 Undesirable Cholesterol in HDL [Mass/Vol] 49 mg/dL 40 - PINF mg/dL [facility] Comment on above: HDL Guidelines: <40 Undesirable 40-59 Borderline >59 Desirable Cholesterol in LDL [Mass/Vol] 32 mg/dL 0 - 130 mg/dL [facility] [employer] Comment on above: LDL Guidelines: <100 Desirable 100-129 Near to/above Desirable 130-159 Borderline >159 Undesirable Direct (measured) LDL and calculated LDL are not interchangeable tests. Cholesterol.total/Ch olesterol in HDL [Mass ratio] 2.3 {ratio} NINF - 5 [facility] Interpretation and review of laboratory results Abnormal [facility] Triglyceride [Mass/Vol] 171 mg/dL High NINF - 150 mg/dL [facility] [employer] Comment on above: Triglyceride Guidelines: <150 Desirable 150-199 Borderline 200-499 High >499 Very high Based on AHA Guidelines for fasting triglyceride, March 2012. [facility] B[facility]IESSimilar PagesTHE [facility] Microalbumin, Uron 3 Albumin DL <= 20 mg/L (U) [Mass/Vol] 764 mg/L High NINF - 21 mg/L [facility] Albumin/Creatinine DL <= 20 mg/L (U) [Ratio] 178 High NINF [facility] Creatinine (U) [Mass/Vol] 428.7 mg/dL High 28.0 - 217.0 mg/dL [facility] Interpretation and review of laboratory results Abnormal [facility] [employer] [facility]ine[facility] T4, Freeon 12-19-2022 Free T4 [Mass/Vol] 1.5 ng/dL 0.9 - 1.7 ng/dL [facility] TSH with Reflexon 12-19-2022 Interpretation and review of laboratory results Abnormal [facility] TSH Qn 6.76 m[IU]/L High [facility] [employer] Vitamin D 25 Hydroxyon 12-19 25-hydroxyvitamin D3 [Mass/Vol] 59.0 ng/mL 29.9 - PINF ng/mL [employer] Comment on above: Reference Range: Vitamin D status Range Deficiency <20 ng/mL Mild Deficiency 20-30 ng/mL Sufficiency 30-100 ng/mL Toxicity >100 ng/mL [employer] XR CHEST (2 VW)Ordered By: Ventura Whitlock on 12-08-2020 No acute cardiopulmonary disease. [employer] Phone: EXAMINATION: TWO XRA Y VIEWS OF THE CHEST 12/06/2020 7:41 pm COMPARISON: July 19, 2017. HISTORY: ORDERING SYSTEM PROVIDED HISTORY: Mild intermittent asthma without complication TECHNOLOGIST PROVIDED HISTORY: ASTHMA FINDINGS: No lines or tubes. Normal cardiomediastinal silhouette. The lungs are clear without focal consolidation or pleural effusion. No suspicious pulmonary nodules. No pulmonary edema. No pneumothorax. No acute osseous abnormality. [employer] Phone: KalpeshReji Incoming Radiant Results From [employer] - 12/08/2020 8:26 PM EDT EXAMINATION: TWO [...] osseous abnormality. IMPRESSION: No acute cardiopulmonary disease. [employer] Phone: [employer] Phone: Discharge Summaryon 07-22-19 18 HIM IP Note OR Welder Experimental Normal [facility] CBCon 07-21-2017 Erythrocyte distribution width Auto Ratio (RBC) 12.9 % Normal 11.8-14.4 [facility] Comment on above: Performed By: #### T BECCA WOMACK ####[facility] [place] [address] Erythrocytes (RBC) 0.0 per 100 WBC Normal 0.0 [facility] Comment on above: Result Comment: [facility] [address] [place] [address] Performed By: #### David WOMACK LIPR ####[address] [address] Erythrocytes (RBC) 4.33 10*6/uL Normal 3.95-5.11 [facility] Comment on above: Performed By: #### David WOMACK LIPR ####[address] [address] Hematocrit (HCT) 38.1 % Normal 36.3-47.1 [facility] Comment on above: Performed By: #### David WOMACK LIPR ####[address] [address] Hemoglobin mass conc (Bld) 12.4 g/dL Normal 11.9-15.1 [facility] Comment on above: Performed By: #### VIRGEN MYLESR ####[address] [address] MCH 28.6 pg Normal 25.2-33.5 [facility] Comment on above: Performed By: #### David WOMACK LIPR ####[address] [address] MCHC mass conc (RBC) 32.5 g/dL Normal 28.4-34.8 [facility] Comment on above: Performed By: #### David WOMACK LIPR ####[address] [address] MCV 88.0 fL Normal 82.6-102.9 [facility] Comment on above: Performed By: #### David WOMACK LIPR ####[address] [place] [address] Platelet mean volume (PMV) 9.7 fL Normal 8.1-13.5 [facility] Comment on above: Performed By: #### BECCA MYLES ####[facility] [address]ylzzbzbipc[address]94 [place] [address] Platelets 198 10*3/uL Normal 138-453 [facility] Comment on above: Performed By: #### BECCA MYLES ####E[address] [place] [address] WBC (Leukocytes) 4.5 10*3/uL Normal 3.5-11.3 [facility] Comment on above: Performed By: ###BECCA DICKSON ####[address] [address] Comp Metabolic Pr/rfx MGon 0 - Potassium molar conc 3.5 mmol/L Low 3.7-5.3 [facility] Comment on above: Performed By: #### BECCA MYLES ####[facility] [address] [place] [address] (cont.) Normal [facility] Comment on above: Result Comment: Aver age GFR for 40-49 years old: 99 mL/min/1.73sq mChronic Kidney Disease: <60 mL/min/1.73sq mKidney failure: <15 mL/min/1.73sq meGFR calculated using average adult body mass. Additional eGFR calculator available at:[email or web address] [facility] [address] [place] [address] Performed By: #### BECCA MYLES ####[address] [address] Alanine aminotransferase (ALT) 15 U/L Normal 5-33 [facility] Comment on above: Performed By: #### T VU LIPR ####[facility] [address] [place] [address] Albumin 3.9 g/dL Normal 3.5-5.2 [facility] Comment on above: Performed By: #### T VU LIPR ####[facility] HospitalSocialFlowYuzdpqbpymqt5670 [place] [address] Albumin/Globulin Ratio 2.1 {ratio} Normal 1.0-2.5 [facility] Comment on above: Performed By: #### T VU LIPR ####[facility] Ewxjwsoavvla[address]75 [place] [address] Alkaline Phos 34 U/L Low 35-104 [facility] Comment on above: Performed By: #### T VU LIPR ####[facility] HospitalSocialFlowYtohbyoupxjj[address] [place] [address] Anion gap 12 mmol/L Normal 9-17 [facility] Comment on above: Performed By: #### T VU LIPR ####[facility] [address] [place] [address] Aspartate aminotransferase (AST) 14 U/L Normal <32 [facility] Comment on above: Performed By: #### T VU LIPR ####[facility] [address]wkohblsgbu2388 [place] [address] Bilirubin Ql (U) 1.02 mg/dL Normal 0.3-1.2 [facility] Comment on above: Performed By: #### T VU LIPR ####[facility] [address]we[address]693 [place] [address] Calcium 9.0 mg/dL Normal 8.6-10.4 [facility] Comment on above: Performed By: #### T VU LIPR ####[facility] HospitalSocialFlowGkoogrudtfyt4300 [place] [address] Chloride 99 mmol/L Normal 98-107 [facility] Comment on above: Performed By: #### BECCA MYLES ####[facility] [address]quvxtpik[address] [place] [address] CO2 24 mmol/L Normal 20-31 [facility] Comment on above: Performed By: #### BECCA MYLES ####[facility] Wdsefbwxufpx8814 [place] [address] Creatinine 0.60 mg/dL Normal 0.50-0.90 [facility] Comment on above: Performed By: #### BECCA MYLES ####[facility] [address]qoocapymb3899 [place] [address] eGFR (non-black) mL/min/{1.73_m2} Normal >60 [facility] Comment on above: Performed By: #### BECCA MYLES ####[facility] Vpzauisluurm2333 [place] [address] Glucose mass conc 99 mg/dL Normal 70-99 [facility] Comment on above: Performed By: #### BECCA MYLES ####[facility] Zwvphyghxxfh3368 [place] [address] Protein 5.8 g/dL Low 6.4-8.3 [facility] Comment on above: Performed By: #### VIRGEN MYLESR ####[facility] [address]wbzxi1856 [place] [address] Sodium 135 mmol/L Normal 135-144 [facility] Comment on above: Performed By: #### BECCA MYLES ####[facility] Ojhkqawkznuz6350 [place] [address] Urea nitrogen 21 mg/dL High 6-20 [facility] Comment on above: Performed By: #### VIRGEN MYLESR ####[facility] Pbx[address]ossjf6828 [place] [address] BUN/CRE Ratio NOT REPORTED Normal 9-20 [facility] Comment on above: Performed By: #### BECCA MYLES ####[address] [place] [address] Staging: NOT REPORTED Normal [facility] Comment on above: Performed By: #### BECCA MYLES ####[facility] [address]Iembcybkhiyb[address] [place] [address] Magnesiumon 07-21-2017 Magnesium 1.9 mg/dL Normal 1.6-2.6 [facility] Comment on above: Result Comment: [id number] [place] [address] Performed By: #### BECCA MYLES ####[address] [address] Plan of Careon 07-21-2017 HIM IP Note OR Welder Experimental Normal [facility] HIM IP Note OR Welder Experimental Normal [facility] HIM IP Note OR Welder Experimental Normal [facility] Progress Noteon 07-21-2017 HIM IP Note OR Welder Experimental Normal [facility] HIM IP Note OR Welder Experimental Normal [facility] CARDIAC STRESS TESTon 2017 CARDIAC STRESS TEST [address] [address] CARDIAC STRESS TESTPATIENT NAME: AISHWARYA AGUILA : 1965MED REC NO: [id number] [id number] ADMIT DATE: 07/20/2017PROVIDER: Ang CraigARDIYASSINE TREADMILL STRESS [...] of Nuclear MedicineANG SUMAYAMID: 07/20/2017 15:47:34 /PGAYTANJob#: [id number] Doc#: UnknownPositive result faxed to the Unit Normal [facility] Consulton 07-20-2017 HIM IP Note OR Welder Experimental Normal [facility] History and Physicalon 07-20 HIM IP Note OR Welder Experimental Normal [facility] K (Potassium)on 07-20-2017 Potassium molar conc 3.9 mmol/L Normal 3.7-5.3 [facility] Comment on above: Result Comment: [facility] [address] [place] [address] Performed By: #### BECCA MYLES ####[facility] Fa[address]ooledv3599 [place] [address] Lipid Profileon 07-20-2017 Cholesterol 162 mg/dL Normal <200 [facility] Comment on above: Result Comment: Chol esterol Guidelines: <200 Desirable 200-240 Borderline >240 Undesirable Performed By: #### BECCA MYLES ####[facility] [address] [place] [address] Cholesterol to HDL Ratio 3.4 {ratio} Normal <5 [facility] Comment on above: Performed By: #### BECCA MYLES ####[facility] [address]hes[address]oml[address]25 [place] [address] HDL Cholesterol 48 mg/dL Normal >40 [facility] Comment on above: Result Comment: HDL Guidelines: <40 Undesirable 40-59 Borderline >59 Desirable Performed By: #### BECCA MYLES ####[facility] HospitalSocialFlowMybmqcbfbgyw[address] [place] [address] LDL Cholesterol 84 mg/dL Normal 0-130 [facility] Comment on above: Result Comment: LDL Guidelines: <100 Desirable 100-129 Near to/above Desirable 130-159 Borderline >159 UndesirableDirect (measured) LDL and calculated LDL are not interchangeable tests. Performed By: #### BECCA MYLES ####[address] [place] [address] Triglyceride 151 mg/dL High <150 [facility] Comment on above: Result Comment: Trig lyceride Guidelines: <150 Desirable 150- 199 Borderline 200-499 High >499 Very high Based on AHA Guidelines for fasting triglyceride, March 2012.[facility] [address] [place] [address] Performed By: #### BECCA MYLES ####[facility] [place] [address] Cholesterol in VLDL mass conc NOT REPORTED Normal 1-30 [facility] Comment on above: Performed By: #### BECCA MYLES ####[facility] [place] [address] Magnesiumon 07-20-2017 Magnesium 1.8 mg/dL Normal 1.6-2.6 [facility] Comment on above: Result Comment: [employer] [facility] [place] [address] Performed By: #### BECCA MYLES ####[facility] [place] [address] [place] MYOCARDIAL SPECT REST EXE RCISE OR [...] Stable Ischemic Heart DiseaseJACC Volume 69, Issue 17October 2016High risk (>3% annual or CA)1. Severe [...] by:JENNI Montañoigned by:Giovanny Lan MD07/20/17inal result Normal [facility] Plan of Careon 07-20-2017 HIM IP Note OR Welder Experimental Normal [facility] HIM IP Note OR Welder Experimental Normal [facility] Procedureon 07-20-2017 HIM IP Note OR Welder Experimental Normal [facility] Progress Noteon 07-20-2017 HIM IP Note OR Welder Experimental Normal [facility] HIM IP Note OR Welder Experimental Normal [facility] TSH w/reflex to FT4on 2017 Thyroid stimulating hormone (TSH) 0.22 m[IU]/L Low 0.30-5.00 [facility] Comment on above: Result Comment: [employer] [address] [place], [place] [id number] ([phone] Performed By: #### T SHX, FT4 ####[facility] [place] [address] Thyroxine, Freeon 07-20-2017 Thyroxine, Free 1.52 ng/dL Normal 0.93-1.70 [facility] Comment on above: Result Comment: [address] [address] Performed By: #### T SHX, FT4 ####[address] [address] Troponinon 07-20-2017 Troponin I.cardiac mass conc Normal [facility] Comment on above: Result Comment: Refe rence Range: <0.03 Within reference range. 0.03-0.09 Possible myocardial damage.Repeat at appropriate intervals to rule out chronic elevation. >= 0.10 Indicative of myocardial damage.Patients with high levels of Biotin oral intake (i.e >5mg/day) may have falsely decreased Troponin T levels. Samples collected within 8 hours of biotin intake may require additional information for diagnosis.[facility] [address] [place] [address] Performed By: #### BECCA MYLES ####[address] [address] Troponin T.cardiac mass conc ug/L Normal <0.03 [facility] Comment on above: Result Comment: Trop onin T results cannot be compared to Troponin-I results. Performed By: #### BECCA MYLES ####[address] [address] Vital Signs Date Time Vital Sign Value Performing Clinician Manuel zepeda 09-14-2024 09:090400 Body height 160 cm Jeanine Whitlock STATION MANAGER Work Phone: [facility] 09-14-2024 09:09-0400 Body mass index (BMI) [Ratio] 39.11 kg/m2 Jeanine Whitlock STATION MANAGER Work Phone: [facility] 09-14-2024 09:09-0400 Body temperature 98.29 [degF] Jeanine Rine STATION MANAGER Work Phone: [facility] 09-14-2024 09:09-0400 Body weight 100.15 kg Jeanine Rine STATION MANAGER Work Phone: [facility] 09-14-2024 09:09-0400 Diastolic blood pressure 56 mm[Hg] Jeanine Rine STATION MANAGER Work Phone: [facility] 09-14-2024 09:09-0400 Heart rate 76 /min Jeanine Rine STATION MANAGER Work Phone: [facility] 09-14-2024 09:09-0400 Respiratory rate 18 /min Jeanine Rine STATION MANAGER Work Phone: [facility] 09-14-2024 09:09-0400 SaO2% (BldA) [Mass fraction] 94 % Jeanine Rine STATION MANAGER Work Phone: [facility] 09-14-2024 09:09-0400 Systolic blood pressure 100 mm[Hg] Jeanine Rine STATION MANAGER Work Phone: [facility] 07-10-2024 09:10-0500 Body height 160 cm Osman Fruth STATION MANAGER Work Phone: [facility] 07-10-2024 09:10-0500 Body mass index (BMI) [Ratio] 38.44 kg/m2 Osman Fruth STATION MANAGER Work Phone: [facility] 07-10-2024 09:10-0500 Body temperature 95.2 [degF] Osman Fruth STATION MANAGER Work Phone: [facility] 07-10-2024 09:10-0500 Body weight 98.43 kg Osman Fruth STATION MANAGER Work Phone: [facility] 07-10-2024 09:10-0500 Diastolic blood pressure 84 mm[Hg] Osman Fruth STATION MANAGER Work Phone: [facility] 07-10-2024 09:10-0500 Heart rate 76 /min Osman Fruth STATION MANAGER Work Phone: [facility] 07-10-2024 09:10-0500 SaO2% (BldA) [Mass fraction] 92 % Osman Fruth STATION MANAGER Work Phone: [facility] 07-10-2024 09:10-0500 Systolic blood pressure 128 mm[Hg] Osman Fruth STATION MANAGER Work Phone: [facility] 06-08-2024 09:51-0500 Body height 160 cm Jeanine Rine STATION MANAGER Work Phone: [facility] 06-08-2024 09:51-0500 Body mass index (BMI) [Ratio] 39.93 kg/m2 Jeanine Rine STATION MANAGER Work Phone: [facility] 06-08-2024 09:51-0500 Body temperature 98.2 [degF] Jeanine Rine STATION MANAGER Work Phone: [facility] 06-08-2024 09:51-0500 Body weight 102.24 kg Jeanine Rine STATION MANAGER Work Phone: [facility] 06-08-2024 09:51-0500 Diastolic blood pressure 72 mm[Hg] Jeanine Rine STATION MANAGER Work Phone: [facility] 06-08-2024 09:51-0500 Heart rate 70 /min Jeanine Rine STATION MANAGER Work Phone: [facility] 06-08-2024 09:51-0500 Respiratory rate 18 /min Jeanine Rine STATION MANAGER Work Phone: [facility] 06-08-2024 09:51-0500 SaO2% (BldA) [Mass fraction] 93 % Jeanine Rine STATION MANAGER Work Phone: [facility] 06-08-2024 09:51-0500 Systolic blood pressure 128 mm[Hg] Jeanine Rine STATION MANAGER Work Phone: [facility] 03-06-2024 09:16-0400 Body height 160 cm Jeanine Rine STATION MANAGER Work Phone: [facility] 03-06-2024 09:16-0400 Body mass index (BMI) [Ratio] 38.9 kg/m2 Jeanine Rine STATION MANAGER Work Phone: [facility] 03-06-2024 09:16-0400 Body temperature 98.01 [degF] Jeanine Rine STATION MANAGER Work Phone: [facility] 03-06-2024 09:16-0400 Body weight 99.61 kg Jeanine Rine STATION MANAGER Work Phone: [facility] 03-06-2024 09:16-0400 Diastolic blood pressure 60 mm[Hg] Jeanine Rine STATION MANAGER Work Phone: [facility] 03-06-2024 09:16-0400 Heart rate 71 /min Jeanine Rine STATION MANAGER Work Phone: [facility] 03-06-2024 09:16-0400 Respiratory rate 18 /min Jeanine Rine STATION MANAGER Work Phone: [facility] 03-06-2024 09:16-0400 SaO2% (BldA) [Mass fraction] 95 % Jeanine Rine STATION MANAGER Work Phone: [facility] 03-06-2024 09:16-0400 Systolic blood pressure 120 mm[Hg] Jeanine Rine STATION MANAGER Work Phone: [facility] 01-22-2024 15:21-0400 Body height 160 cm Jeanine Rine STATION MANAGER Work Phone: [facility] 01-22-2024 15:21-0400 Body mass index (BMI) [Ratio] 38.09 kg/m2 Jeanine Rine STATION MANAGER Work Phone: [facility] 01-22-2024 15:21-0400 Body temperature 98.4 [degF] Jeanine Rine STATION MANAGER Work Phone: [facility] 01-22-2024 15:21-0400 Body weight 97.52 kg Jeanine Rine STATION MANAGER Work Phone: [facility] 01-22-2024 15:21-0400 Diastolic blood pressure 70 mm[Hg] Jeanine Rine STATION MANAGER Work Phone: [facility] 01-22-2024 15:21-0400 Heart rate 84 /min Jeanine Rine STATION MANAGER Work Phone: [facility] 01-22-2024 15:21-0400 Respiratory rate 18 /min Jeanine Whitlock STATION MANAGER Work Phone: [facility] 01-22-2024 15:-0400 SaO2% (BldA) [Mass fraction] 95 % Jeanine Trevizoe STATION MANAGER Work Phone: [facility] 01-22-2024 15:-0400 Systolic blood pressure 115 mm[Hg] Jeanine Trevizoe STATION MANAGER Work Phone: [facility] Healthcare Encounters Encounter Date Encounter Type Care Provider Facility Start: 01-22-2025 End: 01-22-2025 Telephone encounter Jeanine Trevizoe STATION MANAGER Work Phone: [facility] Start: 01-10-2025 End: 01-10-2025 Refill Osman Gilmore STATION MANAGER Work Phone: [facility] Comment on above: Type 2 diabetes rochelle itus without complication, without long- term current use of insulin ([facility]) Start: 12-31-2024 End: 01-01-2025 Telephone encounter Charlotte Caruso SARAH Other Phone: [facility] Comment on above: Med Refill Start: 12-14-2024 End: 12-14-2024 Telephone encounter Jeanine Trevizoe STATION MANAGER Work Phone: [facility] Start: 11-29-2024 End: 11-30-2024 Refill Jeanine L Angele STATION MANAGER Work Phone: [facility] Comment on above: Acquired hypothyroid ism Start: 11-22-2024 End: 11-22-2024 Refill Jeanine L Angele STATION MANAGER Work Phone: [facility] Comment on above: Type 2 diabetes rochelle itus without complication, without long- term current use of insulin ([facility]) Start: 11-17-2024 End: 11-17-2024 Refill Jeanine L Rine STATION MANAGER Work Phone: [facility] Comment on above: Type 2 diabetes rochelle itus with hyperglycemia, with long-term current use of insulin ([facility]) Start: 11-13-2024 End: 11-17-2024 Telephone encounter Jeanine Whitlock STATION MANAGER [facility] Phone[facility] Comment on above: continuous glucose m onitor Start: 10-14-2024 End: 10-15-2024 Refill Jeanine Whitlock STATION MANAGER Work Phone: [facility] Comment on above: Type 2 diabetes rochelle itus without complication, without long- term current use of insulin Start: 09-14-2024 End: 09-14-2024 Bamboo flowsheet Jeanine Whitlock STATION MANAGER Work Phone: [facility] Start: 09-14-2024 End: 09-14-2024 Bamboo flowsheet Jeanine Trevizoe STATION MANAGER Work Phone: [facility] Start: 09-14-2024 End: 09-14-2024 Office outpatient visit 25 minutes Jeanine Whitlock STATION MANAGER Work Phone: [facility] Comment on above: Type 2 diabetes rochelle itus without complication, without long- term current use of insulin (Primary Dx); Primary hypertension (CMS/HCC); BMI 39.0-39.9,adult; Dysuria; Wellness examination; Screening for deficiency anemia; Abnormal thyroid screen (blood); Screening, lipid; Vitamin D deficiency Start: 09-14-2024 End: 09-14-2024 Patient encounter status Jeanine Whitlock STATION MANAGER Work Phone: [facility] Start: 09-14-2024 End: 09-14-2024 ambulatory JEANINE Liban TREVIZOE Not Available Start: 08-26-2024 End: 08-26-2024 Refill Charlotte Caruso LPN Other Phone: [facility] Comment on above: Type 2 diabetes rochelle itus without complication, without long- term current use of insulin (CMS/HCC) Start: 08-04-2024 End: 08-04-2024 ambulatory JEANINE L ANGELE [facility] Start: 08-04-2024 End: 08-04-2024 Subsequent hospital visit by physician Jeanine Whitlock APRN - STATION MANAGER Work Phone: [facility] Comment on above: 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 Start: 06-19-2024 End: 06-19-2024 ambulatory JEANINE Louie [facility] Start: 06-19-2024 Encounter for gyneco logical examination (general) (routine) without abnormal findings [facility] Start: 06-19-2024 End: 06-19-2024 Patient encounter procedure Jeanine Benitez NP Work Phone: [facility] Start: 06-19-2024 End: 06-19-2024 Subsequent hospital visit by physician Jeanine Benitez NP Work Phone: [facility] Comment on above: STD exposure; Women's annual routine gynecological examination Start: 06-16-2024 End: 06-22-2024 Telephone encounter Jeanine Whitlock NP Work Phone: [facility] Comment on above: Referral; Brenda Results Start: 06-12-2024 End: 06-12-2024 ambulatory JEANINE WHITLOCK Not Available Start: 06-09-2024 End: 06-09-2024 Refill Osmanradha Gilmore STATION MANAGER Work Phone: [facility] Comment on above: Acquired hypothyroid ism (CMS/HCC) Degenerative cervica l disc; Essential hypertension (CMS/HCC); Type 2 diabetes mellitus without complication, without long-term current use of insulin (CMS/HCC) Start: 06-08-2024 End: 06-08-2024 Bamboo flowsheet Jeainne L Rine STATION MANAGER Work Phone: [facility] Start: 06-08-2024 End: 06-08-2024 Bamboo flowsheet Jeanine L Rine STATION MANAGER Work Phone: [facility] Start: 06-08-2024 End: 06-08-2024 ambulatory JEANINE L RINE Not Available Start: 06-08-2024 End: 06-08-2024 Office outpatient visit 15 minutes Jeanine L Rine STATION MANAGER Work Phone: [facility] Comment on above: Type 2 diabetes rochelle itus without complication, without long- term current use of insulin (CMS/HCC) (Primary Dx); Visit for screening mammogram; Morbid (severe) obesity due to excess calories (CMS/HCC) Start: 06-07-2024 End: 06-08-2024 Refill Jeanine L Rine STATION MANAGER Work Phone: [facility] Comment on above: Type 2 diabetes rochelle itus without complication, without long- term current use of insulin (CMS/HCC) (Primary Dx) Start: 05-05-2024 End: 05-05-2024 Refill Jeanine L Rine STATION MANAGER Work Phone: [facility] Comment on above: Type 2 diabetes rochelle itus without complication, without long- term current use of insulin (CMS/HCC) (Primary Dx) Start: 05-04-2024 End: 05-04-2024 Refill Jeanine L Rine STATION MANAGER Work Phone: [facility] Comment on above: Type 2 diabetes rochelle itus without complication, without long- term current use of insulin (CMS/HCC) (Primary Dx) Start: 05-03-2024 End: 05-05-2024 Telephone encounter Jeanine L Rine STATION MANAGER Work Phone: [facility] Start: 04-30-2024 End: 05-01-2024 Refill Jeanine L Rine STATION MANAGER Work Phone: [facility] Comment on above: Type 2 diabetes rochelle itus with hyperglycemia, with long-term current use of insulin ([facility]) Start: 04-03-2024 End: 04-03-2024 Bamboo flowsheet [...] Available Start: 03-27-2024 End: 03-27-2024 Refill Elizabeth Rossi SHEA [facility] Comment on above: Type 2 diabetes rochelle itus without complication, without long- term current use of insulin ([facility]) Start: 03-25-2024 End: 03-25-2024 Refill Jeanine L Rine STATION MANAGER Work Phone: [facility] Comment on above: Environmental and se asonal allergies; Pure hypercholesterolemia ([facility]) Start: 03-10-2024 End: 03-10-2024 Telephone encounter Jeanine L Rine STATION MANAGER Work Phone: [facility] Comment on above: update on dexcom and blood sugars; New Medication ordered Start: 03-06-2024 End: 03-06-2024 Bamboo flowsheet Jeanine L Rine STATION MANAGER Work Phone: [facility] Start: 03-06-2024 End: 03-06-2024 Bamboo flowsheet Jeanine L Rine STATION MANAGER Work Phone: [facility] Start: 03-06-2024 End: 03-06-2024 ambulatory JEANINE L RINE Not Available Start: 03-06-2024 End: 03-06-2024 Patient encounter status Jeanine Louie Jalen STATION MANAGER Work Phone: [facility] Work Phone: Start: 03-06-2024 End: 03-06-2024 Periodic preventive med est patient 40-64yrs Jeanine Liban Angele STATION MANAGER Work Phone: [facility] Comment on above: Type 2 diabetes rochelle [...] Environmental and seasonal allergies; BMI 38.0-38.9,adult Start: 02-28-2024 End: 02-28-2024 Telephone encounter Elizabeth Richey MA [facility] Comment on above: Vaginitis/Bacterial Vaginosis Start: 01-22-2024 End: 01-22-2024 Office outpatient visit 25 minutes Jeanine Liban Angele STATION MANAGER Work Phone: [facility] Comment on above: Other specified hypo tension (Primary Dx); Type 2 diabetes mellitus without complication, without long-term current use of insulin (CMS/HCC) Start: 01-22-2024 End: 01-22-2024 ambulatory JEANINE L RINE Not Available Start: 01-22-2024 End: 01-22-2024 Bamboo flowsheet Jeanine L Angele STATION MANAGER Work Phone: [facility] Start: 01-22-2024 End: 01-22-2024 Bamboo flowsheet Jeanine Whitlock STATION MANAGER Work Phone: [facility] Start: 12-18-2023 End: 12-18-2023 ambulatory POLO DIAZ Not Available Start: 11-19-2023 End: 11-19-2023 ambulatory JEANINE WHITLOCK Not Available Start: 10-11-2023 End: 10-11-2023 ambulatory POLO DIAZ Not Available Start: 07-15-2023 End: 07-18-2023 ambulatory JEANINE WHITLOCK [facility] Start: 07-15-2023 End: 07-17-2023 Subsequent hospital visit by physician [facility] Dexa Scan Comment on above: Age-related osteopor osis without current pathological fracture Start: 12-19-2022 End: 12-19-2022 Subsequent hospital visit by physician Jeanine Whitlock Work Phone: [facility] [facility] Start: 12-06-2020 End: 12-08-2020 Subsequent hospital visit by physician Maddie Sewell Dr Room 2 [facility] Radiology Comment on above: Mild intermittent as thma without complication Start: 07-20-2017 End: 07-22-2017 Evaluation and management of inpatient JEANINE WHITLOCK [facility] Procedures Date Procedure Procedure Detail Performing Clinician Start: 06-19-2024 Iaad ia chlamydia trachomatis Fawn Contreras MD Work Phone: Start: 06-19-2024 Microscopic observat ion [Identifier] in Cervix by Cyto stain Jeanine Whitlock RADIO RECORDER - STATION MANAGER Work Phone: Start: 06-12-2024 Mammography Jeanine Whitlock STATION MANAGER Work Phone: Start: 04-03-2024 End: 04-03-2024 DESTRUCTION OF LESION [facility] D[facility] Work Phone: Start: 04-03-2024 CRYOTHERAPY SKIN LESION [facility] Work Phone: Start: 07-15-2023 Dxa bone density thomas dy 1/> sites axial skel Tyler Ramey MD Work Phone: Start: 05-31-2023 Microscopic observat ion [Identifier] in Cervix by Cyto stain Jeanine Rine RADIO RECORDER - STATION MANAGER Work Phone: Start: 05-24-2023 Mammography Jeanine Rine STATION MANAGER Work Phone: Start: 12-19-2022 Comprehensive metabo lic panel Polo Lauren Gregg RADIO RECORDER - STATION MANAGER Work Phone: Start: 12-19-2022 Lipid panel Poloshanda Hernandez yrbasilia RADIO RECORDER - STATION MANAGER Work Phone: Start: 12-19-2022 Urine albumin quantitative Polo Lauren Gregg RADIO RECORDER - STATION MANAGER Work Phone: Start: 12-06-2020 Radiologic exam ches t 2 views Jeanine L Rine Work Phone: Start: 02-07-2018 Colonoscopy Jeanine Rine STATION MANAGER Work Phone: Start: 01-23-2018 Colonoscopy Jeanine Rine Work Phone: Start: 07-22-2017 SUPERVISOR PUBLIC MESSAGE SERVICE REPORT JEANINE R INE Start: 07-22-2017 DISCHARGE [...] Treatment Date Care Activity Detail Author Start: 06-19-2029 Screening for malignant neoplasm of cervix [facility] Start: 02-08-2028 Screening for malignant neoplasm of colon [facility] Start: 01-24-2028 Screening for malignant neoplasm of colon [facility] Start: 06-19-2027 Screening for malignant neoplasm of cervix Pap smear [facility] Start: 02-13-2027 DTaP/Tdap/Td vaccine (3 - Td or Tdap) DTaP/Tdap/Td vaccine (3 - Td or Tdap) [facility] Start: 06-12-2026 Screening for malignant neoplasm of breast Breast cancer screen [facility] Start: 05-31-2026 Screening for malignant neoplasm of cervix [facility] Start: 05-08-2026 Glaucoma screening Diabetes: Retinopathy Screening [facility] Start: 06-28-2025 End: 06-28-2025 Patient encounter procedure 06/28/2025 2:15 PM EST Office Visit [facility] [address] [place] [address] Victoria Amado, DO [address] [place] [address] yearly [facility] Comment on above: yearly Start: 06-21-2025 Glaucoma screening Diabetes: Retinopathy Screening [facility] Start: 06-19-2025 Depression Monitoring Depression Monitoring [facility] Start: 06-12-2025 Screening for malignant neoplasm of breast Mammogram [facility] Start: 05-24-2025 Screening for malignant neoplasm of breast Breast cancer screen [facility] Start: 04-05-2025 End: 04-05-2025 Patient encounter procedure [facility] Start: 03-15-2025 End: 03-15-2025 Patient encounter procedure [facility] Start: 03-13-2025 Hemoglobin A1c measurement Diabetes: Hemoglobin A1C [facility] Start: 03-03-2025 End: 09-14-2025 25-hydroxyvitamin D3 [Mass/volume] in Serum or Plasma Vitamin D 25 hydroxy Total Lab Today Vitamin D deficiency Expected: 03/03/2025 (Approximate), Expires: 09/14/2025 [facility] Work Phone: Comment on above: Expected: 03/03/2025 (Approximate), Expi res: 09/14/2025 Start: 03-03-2025 End: 09-14-2025 CBC panel - Blood by Automated count CBC Lab Today Wellness examination Expected: 03/03/2025 (Approximate), Expires: 09/14/2025 [facility] Comment on above: Expected: 03/03/2025 (Approximate), Expi res: 09/14/2025 Start: 03-03-2025 End: 09-14-2025 Comprehensive metabolic 2000 panel - Serum or Plasma COMPREHENSIVE METABOLIC PANEL (REFL) Lab Today Wellness examination Expected: 03/03/2025 (Approximate), Expires: 09/14/2025 [facility] Comment on above: Expected: 03/03/2025 (Approximate), Expi res: 09/14/2025 Start: 03-03-2025 End: 09-14-2025 Hemoglobin A1c/Hemoglobin.total in Blood Hemoglobin A1c Lab Today Type 2 diabetes mellitus without complication, without long-term current use of insulin Expected: 03/03/2025 (Approximate), Expires: 09/14/2025 [facility] Comment on above: Expected: 03/03/2025 (Approximate), Expi res: 09/14/2025 Start: 03-03-2025 End: 09-14-2025 Lipid 1996 panel - Serum or Plasma Lipid panel Lab Today Wellness examination Expected: 03/03/2025 (Approximate), Expires: 09/14/2025 [facility] Comment on above: Expected: 03/03/2025 (Approximate), Expi res: 09/14/2025 Start: 03-03-2025 End: 09-14-2025 TSH W/REFLEX TO FT4 TSH W/REFLEX TO FT4 Lab Today Abnormal thyroid screen (blood) Expected: 03/03/2025 (Approximate), Expires: 09/14/2025 [facility] Comment on above: Expected: 03/03/2025 (Approximate), Expi res: 09/14/2025 Start: 03-03-2025 End: 09-14-2025 URINALYSIS, COMPLETE W/REFLEX TO CULTURE URINALYSIS, COMPLETE W/REFLEX TO CULTURE Lab Today Dysuria Wellness examination Expected: 03/03/2025 (Approximate), Expires: 09/14/2025 [facility] Comment on above: Expected: 03/03/2025 (Approximate), Expi res: 09/14/2025 Start: 02-01-2025 Influenza vaccination Influenza Vaccine (#1) [facility] Start: 12-04-2024 Hemoglobin A1c measurement Diabetes: Hemoglobin A1C [facility] Start: 12-01-2024 End: 12-04-2024 Hemoglobin A1c/Hemoglobin.total in Blood Hemoglobin A1c Lab Today Type 2 diabetes mellitus without complication, without long-term current use of insulin Expected: 12/01/2024 (Approximate), Expires: 12/04/2024 [facility] Comment on above: Expected: 12/01/2024 (Approximate), Expi res: 12/04/2024 Start: 11-05-2024 Urine screening for protein Diabetes: Urine Protein Screening [facility] Start: 09-14-2024 End: 09-14-2024 Patient encounter procedure 09/14/2024 9:00 AM EDT [facility] [address] [place] [address] Jeanine Whitlock, STATION MANAGER [address] [place], [place] [id number] Arrived [facility] Comment on above: Arrived Start: 09-11-2024 End: 09-11-2024 Patient encounter procedure 09/11/2024 9:00 AM EDT [facility] [address] [place] [address] Jeanine Whitlock, STATION MANAGER [address] [place], [place] [id number] [facility] Start: 06-12-2024 End: 06-12-2024 Professional / ancillary services management 06/12/2024 9:00 AM EST Ancillary Procedure [facility] [address] [place] [id number] [facility] Start: 06-08-2024 End: 08-03-2025 MG Breast - bilateral Screening Bilateral screening mammogram Imaging Routine Visit for screening mammogram Expected: 06/08/2024 (Approximate), Expires: 08/03/2025 [facility] Work Phone: Comment on above: Expected: 06/08/2024 (Approximate), Expi res: 08/03/2025 Start: 06-08-2024 End: 06-08-2024 Patient encounter procedure 06/08/2024 9:30 AM EST Office Visit [facility] [address] [place] [address] Jeanine Whitlock, STATION MANAGER [address] [place], [place] [id number] [facility] Start: 06-05-2024 Hemoglobin A1c measurement Diabetes: Hemoglobin A1C [facility] Start: 05-24-2024 Screening for malignant neoplasm of breast Mammogram [facility] Start: 05-11-2024 End: 05-11-2024 Patient encounter procedure 05/11/2024 10:55 AM EST Office Visit [facility] [address] [place] [phone] Kera Mac APRN-DIRECTOR [employer]LECT[employer] [address] [place] [address] [facility] Start: 04-06-2024 End: 03-06-2025 Hemoglobin A1c/Hemoglobin.total in Blood Hemoglobin A1c Lab Today Type 2 diabetes mellitus without complication, without long-term current use of insulin ([facility]) Expected: 04/06/2024 (Approximate), Expires: 03/06/2025 [facility] Work Phone: Comment on above: Expected: 04/06/2024 (Approximate), Expi res: 03/06/2025 Start: 04-03-2024 End: 04-03-2024 Patient encounter procedure [facility] Comment on above: Arrived Start: 03-06-2024 End: 03-06-2024 Patient encounter procedure 03/06/2024 9:00 AM EDT Office Visit [facility] [address] [place] [address] Jeanine Whitlock, STATION MANAGER [address] [place] [address] [facility] Start: 02-06-2024 Hemoglobin A1c measurement Diabetes: Hemoglobin A1C [facility] Start: 02-02-2024 COVID-19 Vaccine ( season) COVID-19 Vaccine ( season) [facility] Start: 02-02-2024 COVID-19 Vaccine ( season) COVID-19 Vaccine ( season) [facility] Start: 02-02-2024 Influenza vaccination Influenza Vaccine (#1) [facility] Start: 01-22-2024 End: 01-22-2024 Patient encounter procedure 01/22/2024 3:00 PM EDT Office Visit [facility] [address] [place] [id number] Jeanine Whitlock NP [address] [place] [address] Arrived [facility] Comment on above: Arrived Start: 12-20-2023 GFR test (Diabetes, CKD 3-4, OR last GFR 15-59) GFR test (Diabetes, CKD 3-4, OR last GFR 15-59) [facility] Start: 12-20-2023 Hemoglobin A1c measurement A1C test (Diabetic or Prediabetic) [facility] Start: 12-20-2023 Lipid panel Lipids [facility] Start: 12-20-2023 Urine screening for protein Diabetic Alb to Cr ratio (uACR) test [facility] Start: 01-01-2023 Influenza vaccination Flu vaccine (#1) [facility] Start: 02-01-2021 Influenza vaccination [facility]) [facility] Work Phone: Start: 12-02-2020 COVID-19 Vaccine (3 - Booster for Moderna series) COVID-19 Vaccine (3 - Booster for Moderna series) [facility] Start: 01-18-2020 Screening for malignant neoplasm of breast Breast cancer screen [facility] [employer] Start: 07-23-2018 Creatinine measurement [facility]inine [facility] Phone: Start: 07-23-2018 GFR test (Diabetes, CKD 3-4, OR last GFR 15-59) GFR test (Diabetes, CKD 3-4, OR last GFR 15-59) [facility] Start: 07-23-2018 Potassium monitoring Potassium monitoring [employer] Phone: Start: 07-20-2018 Lipid panel [facility] Start: 07-01-2018 Pneumococcal 0-64 years Vaccine (2 - PPSV23 if available, else PCV20) Pneumococcal 0-64 years Vaccine (2 - PPSV23 if available, else PCV20) [facility] Start: 07-01-2018 Pneumococcal 0-64 years Vaccine (2 - PPSV23 or PCV20) Pneumococcal 0-64 years Vaccine (2 - PPSV23 or PCV20) [facility] Start: 07-01-2018 Pneumococcal 0-64 years Vaccine (2 of 2 - PPSV23 or PCV20) Pneumococcal 0-64 years Vaccine (2 of 2 - PPSV23 or PCV20) [facility] Start: 07-01-2018 Pneumococcal 50+ years Vaccine (2 of 2 - PPSV23) Pneumococcal 50+ years Vaccine (2 of 2 - PPSV23) [facility] Start: 2017 Shingles Vaccine (1 of 2) Shingles Vaccine (1 of 2) [facility] [employer] Start: 2012 Screening for malignant neoplasm of colon [facility] Start: 06-15-2012 Hemoglobin A1c measurement A1C test (Diabetic or Prediabetic) [facility] Start: 1997 Screening for malignant neoplasm of cervix [facility] Start: 1988 Screening for malignant neoplasm of cervix [facility] Start: 1986 Hepatitis B vaccine (1 of 3 - 19+ 3-dose series) Hepatitis B vaccine (1 of 3 - 19+ 3-dose series) [facility] Start: 1986 Hepatitis B vaccine (1 of 3 - Risk 3-dose series) Hepatitis B vaccine (1 of 3 - Risk 3-dose series) [facility] Start: 1985 Diabetic microalbuminuria test Diabetic microalbuminuria test [facility] Phone: Start: 1985 Glaucoma screening Diabetic retinal exam [facility] Start: 1985 Hepatitis C screening Hepatitis C screen [employer] Start: 1985 Urine screening for protein Diabetic Alb to Cr ratio (uACR) test [employer] Start: 1982 HIV screening HIV screen [employer] Start: 1979 Depression Monitoring Depression Monitoring [employer] Start: 1977 Diabetic foot examination Diabetic foot exam [employer] [facility] Start: 1977 Diabetic retinal exam Diabetic retinal exam [facility] Phone: Start: 1973 Pneumococcal 0-64 years Vaccine (1 of 2 - PPSV23) Pneumococcal 0-64 years Vaccine (1 of 2 - PPSV23) [employer] Phone: Start: 01-23-1968 COVID-19 Vaccine (#1) COVID-19 Vaccine (#1) [employer] Start: 1967 Hepatitis B vaccine (1 of 3 - 3-dose series) Hepatitis B vaccine (1 of 3 - 3-dose series) [employer] Start: 1967 Hepatitis C screening [facility]atitis C screen [facility] Phone: Start: 1967 Screening for malignant neoplasm of colon [facility] Chlamydia/GC DNA, Th in Prep Chlamydia/GC DNA, Thin Prep Microbiology Routine STD exposure 06/19/2024 9:43 AM EST [employer] End: 06-19-2024 Cytopathology procedure, preparation of smear, genital source PAP SMEAR Lab Routine Women's annual routine gynecological examination 1 Occurrences starting 06/19/2024 until 06/19/2024 [employer] Phone: Comment on above: 1 Occurrences starting 06/19/2024 until 06/19/2024 End: 12-19-2022 Hemoglobin A1c/Hemoglobin.total in Blood [employer] Phone: Comment on above: Once for 1 Occurrences starting 12/20/19 until 12/19/2022 End: 08-04-2024 Pathology study Surgical Pathology Lab Routine HGSIL on cytologic smear of cervix 1 Occurrences starting 08/04/2024 until 08/04/2024 [facility] Work Phone: Comment on above: 1 Occurrences starting 08/04/2024 until 08/04/2024 End: 08-04-2024 SURGICAL PATHOLOGY REPORT SURGICAL PATHOLOGY REPORT Lab Routine Once for 1 Occurrences starting 08/04/2024 until 08/04/2024 [facility] Comment on above: Once for 1 Occurrences starting 08/05/19 until 08/04/2024 Immunizations Immunization Date Immunization Notes Care Provider [facility] 03-06-2024 influenza, injectabl e, quadrivalent, preservative free Jeanine Rine STATION MANAGER Work Phone: [facility] 03-06-2024 influenza virus vaccine, unspecified formulation Jeanine Rine STATION MANAGER Work Phone: [facility] 05-10-2023 influenza, injectabl e, quadrivalent, preservative free Jeanine Rine STATION MANAGER Work Phone: [facility] 05-10-2023 influenza virus vaccine, unspecified formulation Jeanine Rine STATION MANAGER Work Phone: [facility] 04-13-2022 influenza, injectabl e, quadrivalent, preservative free Jeanine Rine STATION MANAGER Work Phone: [facility] 06-09-2021 zoster vaccine recombinant Jeanine Rine STATION MANAGER Work Phone: [facility] 03-10-2021 influenza virus vaccine, unspecified formulation Jeanine Rine STATION MANAGER Work Phone: [facility] 03-10-2021 influenza, injectabl e, quadrivalent, preservative free Jeanine Rine STATION MANAGER Work Phone: [facility] 03-10-2021 zoster vaccine recombinant Jeanine Rine STATION MANAGER Work Phone: [facility] 03-04-2020 influenza virus vaccine, unspecified formulation Jeanine Rine STATION MANAGER Work Phone: [facility] 03-04-2020 influenza, injectabl e, quadrivalent, preservative free Jeanine Rine STATION MANAGER Work Phone: [facility] 05-06-2018 pneumococcal conjuga te vaccine, 13 valent Jeanine Rine STATION MANAGER Work Phone: [facility] 04-03-2017 influenza virus vaccine, unspecified formulation Jeanine Rine STATION MANAGER Work Phone: [facility] 04-03-2017 influenza, injectabl e, quadrivalent, preservative free Jeanine Rine STATION MANAGER Work Phone: [facility] 02-13-2017 tetanus toxoid, redu shelby diphtheria toxoid, and acellular pertussis vaccine, adsorbed Jeanine Rine STATION MANAGER Work Phone: [facility] 12-29-2009 tetanus toxoid, redu shelby diphtheria toxoid, and acellular pertussis vaccine, adsorbed Jeanine Rine RADIO RECORDER - STATION MANAGER Work Phone: [facility] 05-16-2006 hepatitis B vaccine, adult dosage Jeanine Rine STATION MANAGER Work Phone: [facility] 07-10-2003 hepatitis B vaccine, adult dosage Jeanine Rine STATION MANAGER Work Phone: [facility] 12-12-1995 hepatitis B vaccine, adult dosage Jeanine Rine STATION MANAGER Work Phone: [facility] 09-19-1995 hepatitis B vaccine, adult dosage Jeanine Rine STATION MANAGER Work Phone: [facility] Payers Date Payer Category Payer [facility] (unspecified) [id number] 2023 Private Health Insurance [id number] 2023 Private Health Insurance 2019 Unknown [facility] [address] [id number] 2019-Present [address] [place] [address] [id number] 2014 Unknown [id number] 1967 Unknown [id number] 74 1967 Unknown [id number] 96 1967 Unknown [id number] 73 1967 Unknown [id number] 73 1967 Unknown [id number] 259 1967 Unknown [id number] 259 1967 Unknown [id number] 259 1967 Unknown [id number] 259 1967 Unknown [id number] 259 1967 Unknown [id number] 259 1967 Unknown [id number] 259 1967 Unknown [id number] 259 1967 Unknown [id number] 259 1967 Unknown [id number] 259 Social History Date Type Detail Facility Start: 01-23-2018 End: 12-19-2022 Tobacco smoking status NMIS Never smoker [facility] [facility] Start: 01-23-2018 End: 12-19-2022 Tobacco use and exposure Never used [employer] Start: 01-23-2018 End: 06-19-2024 Alcohol intake Current non-drinker of alcohol (finding) [employer] Phone: Start: 1965 Sex Assigned At Not on file [employer] Phone: Start: 01-25-2019 End: 01-22-2024 History of Social function [facility] Start: 01-25-2019 End: 01-22-2024 Tobacco use panel [facility] Start: 01-22-2024 End: 09-14-2024 Alcoholic beverage intake Current drinker of alcohol (finding) [facility] How often do you nee d to have someone help you when you read instructions, pamphlets, or other written material from your doctor or pharmacy [SILS] Never [facility] Do you belong to any clubs or organizations such as muslim groups, unions, fraternal or athletic groups, or [...] [OSQ] Very much [facility] (I/We) worried stephy er (my/our) food would run out before (I/we) got money to buy more. Never true [facility] In the past 12 month s, was there a time when you were not able to pay the mortgage or rent on time? No [facility] Start: 1965 Sex assigned at Female [facility] Start: 08-15-2022 Gender identity Identifies as female gender (finding) [facility] How often to you hav e a drink containing alcohol? 2-4 times a month [facility] Medical Equipment Procedure Code Equipment Code Equipment Origin al Text Equipment Identifier Dates [id number], [id number] Start: 11-19-2023 Clinical Notes 01-22-2024 to 01-22-2025 Telephone Encounter - Jeanine Whitlock NP - 01/22/2025 6:58 AM EDTTelephone Encounter - Jeanine Whitlock NP - 01/22/2025 6:58 AM EDTTelephone Encounter - Jeanine Whitlock NP - 01/01/2025 2:12 PM EDT Note Date & Type Note Facility 01-22-2025 Telephone encounter Note Increased the ozempic dose back to 2mg, unsure how this was incorrectly sent as 1 mg. [facility] 01-22-2025 Miscellaneous Notes Increased the ozempic dose back to 2mg, unsure how this was incorrectly sent as 1 mg. documented in this encounter [facility] 01-01-2025 Telephone encounter Note Sent [facility] to [facility]. [facility] 01-01-2025 Miscellaneous Notes Sent as requested to [facility]. Pt called and reports that monjaro was not covered by insurance. Needs refill of ozempic. Due for next injection saturday/saturday [facility] 03/2025 documented in this encounter [facility] 12-31-2024 Telephone encounter Note Pt called and reports that monjaro was not covered by insurance. Needs refill of ozempic. Due for next injection saturday/saturday [facility]. [facility] 03/2025 [facility] 12-14-2024 Telephone encounter Note Mounevaro requested by pt. Albaro not assisting with wt loss. Rx created and sent .aic 6.8% on jardiance, glucophage, ozempic. [facility] 12-14-2024 Miscellaneous Notes Mounevaro requested by pt. Albaro not assisting with wt loss. Rx created and sent .aic 6.8% on jardiance, glucophage, ozempic. documented in this encounter [facility] 11-17-2024 Telephone encounter Note Resent this again to [facility] [place]. [facility] 11-17-2024 Miscellaneous Notes Resent this again to [facility] [place]. Sent as requested She is asking for us to send [facility] for a continuous glucose monitor. Her insurance will not pay for it, but she would like to see how much it will cost her. If it isn't to much she is just going to pay sánchez for it. documented in this encounter [facility] 11-13-2024 Telephone encounter Note Sent as requested [facility] 11-13-2024 Telephone encounter Note She is asking for us to send [facility] for a continuous glucose monitor. Her insurance will not pay for it, but she would like to see how much it will cost her. If it isn't to much she is just going to pay sánchez for it. [facility] 09-14-2024 History of Present illness Narrative Images from the original note were not included. Aishwarya Aguila is a 59 y.o. female presents with chief complaint of Diabetes Follow up HPI: HPI History of Present Illness The patient presents for a follow-up visit. She has been under the care of Dr. Ramey for several years, during which time she underwent a uterine lining biopsy. The results were positive, prompting her to consult with Dr. Figueredo. Initially, it was decided to monitor the condition for another year, but due to her anxiety, a decision was made to proceed with cryotherapy on her cervix. This procedure is scheduled for the end of the month. She also had a Pap smear conducted by Dr. Contreras. She has undergone surgical procedures on both feet. Recently, she has noticed an intermittent clicking sound in one foot, accompanied by an ache that was initially painless but has since become more frequent. She contacted her surgeon's office last week, but they are currently in the process of relocating and are closed for the month. She expresses concern about potential shifting of the implant in her foot and the possibility of requiring weight-bearing restrictions or additional surgery. She is currently on a regimen of Ozempic, metformin, and Jardiance for her diabetes management. Despite these medications, she reports no weight loss. She has been engaging in swimming exercises at the and maintains a high-carb diet. She does not utilize a continuous glucose monitor but checks her blood sugar levels in the morning. She is currently using a CPAP machine for sleep apnea, which she tolerates well. She reports feeling more rested and better overall since starting this treatment. Using 100 % of nights. SUBJECTIVE: MEDICATIONS: Current Outpatient Medications Medication Instructions ALPRAZolam (XANAX) 0.25 mg, Nightly PRN amLODIPine (NORVASC) 5 mg, Oral, Every morning ARIPiprazole (ABILIFY) 5 mg, Daily Ascorbic Acid (Vitamin C) 500 MG capsule Every 24 hours aspirin 325 mg, Every 12 hours atorvastatin (LIPITOR) 10 mg, Oral, Every morning B Complex Vitamins (B COMPLEX 1 PO) bisoprolol (ZEBETA) 10 mg, Oral, Every morning chlorthalidone (Hygroton) 50 MG tablet TAKE 1 TABLET EVERY MORNINGWITH FOOD DULoxetine (CYMBALTA) 60 mg, Daily empagliflozin (JARDIANCE) 25 mg, Oral, Daily escitalopram (LEXAPRO) 10 mg, Daily FreeStyle lancets glucose blood test strip Daily testing Lancet Devices (Autolet) lancing device Daily testing losartan (COZAAR) 25 mg, Oral, Daily meloxicam (MOBIC) 15 mg, Oral, Every morning metFORMIN XR (Glucophage-XR) 500 MG 24 hr tablet TAKE 2 TABLETS EVERY MORNING AND 2 TABLETS BEFORE BEDTIME montelukast (SINGULAIR) 10 mg, Oral, Every morning Ozempic (2 MG/DOSE) 2 mg, Subcutaneous, Weekly Synthroid 100 MCG tablet TAKE 1 TABLET IN THE MORNING BEFORE A MEAL therapeutic multivitamin-minerals (Theragran-M) tablet 1 tablet, Daily zinc gluconate 50 mg, Daily ALLERGIES: Allergies Allergen Reactions Iodides Heart Cath dye Iodinated Contrast Media Hives Lisinopril Cough Shellfish-Derived Products SURGICAL HISTORY: Past Surgical History: Procedure Laterality Date CERVICAL DISC ARTHROPLASTY 12/2017 C 6-7 SECTION, CLASSIC FOOT SURGERY Left 01/14/2024 FOOT SURGERY Right 04/07/2024 HEART CATH 2008 and 07/2017 OTHER SURGICAL [...] Alcohol use: Yes Drug use: Never Depression: At risk (06/19/2024) Received from [facility] PHQ-2 PHQ-9 Total Score: 16 REVIEW OF SYMPTOMS: Review of Systems Constitutional: Negative for activity change. Eyes: Negative for visual disturbance. Respiratory: Negative for cough and wheezing. Cardiovascular: Negative for chest pain and leg swelling. Gastrointestinal: Negative for abdominal pain. Genitourinary: Negative for difficulty urinating. Musculoskeletal: Positive for arthralgias. Neurological: Negative for weakness. Psychiatric/Behavioral: Negative. Allergic/Immunologic: Negative for environmental allergies. ..I have reviewed and reconciled the history, allergies, family history, social history, and the medication list with the patient today. OBJECTIVE: Visit Vitals BP 100/56 (BP Location: Left arm, Patient Position: Sitting, BP Cuff Size: Adult) Pulse 76 Temp 98.3 F (Tympanic) Resp 18 Ht 5' 3 Wt 220 lb 12.8 oz SpO2 94% BMI 39.11 kg/m OB Status Hysterectomy Smoking Status Never BSA 2.11 m Physical Exam Constitutional: Appearance: Normal appearance. Eyes: Pupils: Pupils are equal, round, and reactive to light. Cardiovascular: Rate and Rhythm: Normal rate and regular rhythm. Pulses: Normal pulses. Heart sounds: Normal heart sounds. Pulmonary: Effort: Pulmonary effort is normal. Breath sounds: Normal breath sounds. Musculoskeletal: Cervical back: Normal range of motion and neck supple. Skin: General: Skin is warm and dry. Neurological: General: No focal deficit present. Mental Status: She is alert. Psychiatric: Mood and Affect: Mood normal. Comments: Alert and interactive Wt up 3 pounds Aic 09-04-24 was 7.3%, down from previous Seen concurrently with Maxine PATRICIO ASSESSMENT AND PLAN: Assessment/Plan Diagnoses and all orders for this visit: Type 2 diabetes mellitus without complication, without long-term current use of insulin Comments: aic 7.3% on 09-04-24, same meds, discussed intermittent fasting and resistance training Orders: - Hemoglobin A1c; Future - Hemoglobin A1c; Future Primary hypertension (CMS/HCC) Comments: consider decrease in meds if she gets exercising and wt goes down, aware to all BMI 39.0-39.9,adult Dysuria Comments: for lab purpose only Orders: - URINALYSIS, COMPLETE W/REFLEX TO CULTURE; Future Wellness examination Comments: for lab purpose only Orders: - URINALYSIS, COMPLETE W/REFLEX TO CULTURE; Future - COMPREHENSIVE METABOLIC PANEL (REFL); Future - CBC; Future - Lipid panel; Future Screening for deficiency anemia Comments: for lab purpose only Abnormal thyroid screen (blood) Comments: for lab purpose only Orders: - TSH W/REFLEX TO FT4; Future Screening, lipid Comments: for lab purpose only Vitamin D deficiency Comments: continue supplement, for lab purpose only Orders: - Vitamin D 25 hydroxy Total; Future Follow up for well visit in mar, labs prior. documented in this encounter [facility] 09-14-2024 Instructions Jeanine Whitlock NP - 09/14/2024 9:00 AM EDT Consider more resistance training 8 oz of water after each meal and stay on feet for about 30 min after each meal Consider 10 hour eat and 14 hour fasting Average blood sugar on or after December 04 and full well lab prior to oct well visit documented in this encounter [facility] 08-26-2024 Telephone encounter Note Pt called rx refill ine and requested losartan. Typically is sent to mail away but is completely out. Please sent to [facility] 09/2024 [facility] 08-26-2024 Miscellaneous Notes Pt called rx refill ine and requested losartan. Typically is sent to mail away but is completely out. Please sent to [facility] 09/2024 documented in this encounter [facility] 07-10-2024 History of Present illness Narrative Images from the original note were not included. Aishwarya Aguila is a 58 y.o. female presents with chief complaint of Cough (Started almost 2 weeks ago, pt states its so bad its hurting my ribs and making me pee /Also has a lot of mucous, had fevers the first week, but has resolved, slight nausea this morning/Has tried OTC meds but its not going away) HPI: HPI STATION MANAGER; two weeks of sinus pressure drainage cough sore throat. Some fevers. Denies short of breath. Unsure of bsl. Mucinex is not helping. SUBJECTIVE: MEDICATIONS: Current Outpatient Medications Medication Instructions ALPRAZolam (XANAX) 0.25 mg, Nightly PRN amLODIPine (NORVASC) 5 mg, Oral, Every morning ARIPiprazole (ABILIFY) 5 mg, Daily Ascorbic Acid (Vitamin C) 500 MG capsule Every 24 hours aspirin 325 mg, Every 12 hours atorvastatin (LIPITOR) 10 mg, Oral, Every morning B Complex Vitamins (B COMPLEX 1 PO) as directed Orally bisoprolol (ZEBETA) 10 mg, Oral, Every morning Blood Glucose Monitoring Suppl (FreeStyle Lite) w/Device kit USE DIRECTED calcium carbonate (Os-Wilfredo) 1250 (500 Ca) MG tablet 1 capsule, Daily chlorthalidone (Hygroton) 50 MG tablet TAKE 1 TABLET EVERY MORNINGWITH FOOD Continuous Glucose Sensor (Dexcom G7 Sensor) misc 1 Units, Does not apply, Every 14 days DULoxetine (CYMBALTA) 60 mg, Daily empagliflozin (JARDIANCE) 25 mg, Oral, Daily escitalopram (LEXAPRO) 10 mg, Daily fluconazole (DIFLUCAN) 100 mg, Oral, Daily FreeStyle lancets USE DIRECTED EVERY DAY glucose blood test strip Daily testing Lancet Devices (Autolet) lancing device Daily testing losartan (COZAAR) 25 mg, Oral, Daily meloxicam (MOBIC) 15 mg, Oral, Every morning metFORMIN XR (Glucophage-XR) 500 MG 24 hr tablet TAKE 2 TABLETS EVERY MORNING AND 2 TABLETS BEFORE BEDTIME montelukast (SINGULAIR) 10 mg, Oral, Every morning Ozempic (2 MG/DOSE) 2 mg, Subcutaneous, Weekly sulfacetamide (Bleph-10) 10 % ophthalmic solution 2 drops Synthroid 100 MCG tablet TAKE 1 TABLET IN THE MORNING BEFORE A MEAL therapeutic multivitamin-minerals (Theragran-M) tablet 1 tablet, Daily traZODone (DESYREL) 75 mg, Nightly PRN zinc gluconate 50 mg, Daily ALLERGIES: Allergies Allergen Reactions Iodides Heart Cath dye Iodinated Contrast Media Hives Lisinopril Cough Shellfish-Derived Products SURGICAL HISTORY: Past Surgical History: Procedure Laterality Date CERVICAL DISC ARTHROPLASTY 12/2017 C 6-7 SECTION, CLASSIC FOOT SURGERY Left 01/14/2024 FOOT SURGERY Right 04/07/2024 HEART CATH 2008 and 07/2017 OTHER SURGICAL [...] Alcohol use: Yes Drug use: Never Depression: At risk (06/19/2024) Received from [facility] PHQ-2 PHQ-9 Total Score: 16 REVIEW OF SYMPTOMS: Review of Systems ROS : Sinus pain pressure and drainage Sore throat Ears plugged Negative for fevers, shortness of breath or wheezing +dry cough Denies rash +headache Denies dizziness Denies chest pain pressure edema or palpitations OBJECTIVE: Visit Vitals OB Status Hysterectomy Smoking Status Never 138/84 217# Physical Exam Constitutional: Appearance: Normal appearance. HENT: Head: Normocephalic and atraumatic. Right Ear: Tympanic membrane, ear canal and external ear normal. Left Ear: Tympanic membrane, ear canal and external ear normal. Nose: Congestion present. Comments: + sinus tenderness on palpation Mouth/Throat: Mouth: Mucous membranes are moist. Pharynx: Posterior oropharyngeal erythema present. Eyes: Conjunctiva/sclera: Conjunctivae normal. Pupils: Pupils are equal, round, and reactive to light. Cardiovascular: Rate and Rhythm: Normal rate and regular rhythm. Pulses: Normal pulses. Pulmonary: Effort: Pulmonary effort is normal. Breath sounds: Normal breath sounds. Musculoskeletal: General: Normal range of motion. Cervical back: Normal range of motion. Skin: General: Skin is warm and dry. Neurological: General: No focal deficit present. Mental Status: She is alert and oriented to person, place, and time. Mental status is at baseline. Psychiatric: Mood and Affect: Mood normal. Behavior: Behavior normal. Thought Content: Thought content normal. ASSESSMENT AND PLAN: Assessment/Plan Problem List Items Addressed This Visit None Visit Diagnoses Acute non-recurrent maxillary sinusitis - Primary Relevant Medications amoxicillin (Amoxil) 875 MG tablet predniSONE (Deltasone) 10 MG tablet promethazine-dextromethorphan (Phenergan-DM) 6.25-15 MG/5ML syrup continue current medications. increase fliuds. rest use steam. take all medications as directed. call with any concerns and to ER for worsening symptoms Advised to take a burst of prednisone. This is a strong anti-inflammatory. Take the number per day at one time, with food as early in the day as possible. This may cause irritability or agitation. It may increase hunger and blood sugar so watch sugars in diet carefully while taking this. Call if any stomach upset or intolerance. Take exactly as directed. Follow up september and as needed.. documented in this encounter [facility] 06-24-2024 Note Chief Complaint Hx NEELIMA, consultation History of Present Illness Patient is a 58-year-old female who presents [facility] the [facility] with a referral from her primary care provider, Jeanine Whitlock APRN, for snoring, daytime fatigue. Patient recently had a home sleep apnea test done which showed severe sleep apnea. She is here to discuss treatment options. A home sleep apnea test, 06/12/2024, performed by [facility], showed a significant degree of sleep apnea with an overall AHI: 51.9 and an oxygen desaturation of 81%. This study did utilize a 4% desaturation when scoring hypopneas. Sleep diary: Patient is in bed around 10 PM, falling asleep within minutes. She admits to 1-2 nighttime awakenings due to nocturia but can go back to sleep within minutes. She is out of bed around 6:30 AM. She achieves on average 7 to 8 hours of sleep at night but does not wake up feeling refreshed. She admits to napping daily. Her bedroom is comfortable as is her bed. She sleeps alone. There are no pets in the room. She snores and her snoring can be disruptive according to her daughter. There have been witnessed pauses noted in her breathing while sleeping. She does wake up sweating and with a dry mouth. Morning cephalgia is not an issue. Her legs are not restless and do not affect her ability to initiate or maintain sleep. She dreams and states her dreams can be vivid. She has not been known to act out her dreams. There are no other REM or non-REM parasomnias noted. She is sleepy and fatigued throughout the day. Wilson Sleepiness Scale score: 21. She is sleepy with sedentary activity and can easily accomplish a nap if given the opportunity. She has never been involved in a motor vehicle accident nor has she experienced a near miss while driving due to sleepiness. She consumes less than 100 mg of caffeine per day. She denies symptoms of hypnagogic hallucinations, sleep paralysis or cataplexy. Review of Systems Constitutional symptoms: None Eyes: Corrective lenses without recent change in visual acuity Ears: Without hearing loss Nose/sinuses/throat: Without nasal or sinus congestion Cardiovascular: Without angina or palpitations Respiratory: Without cough, wheezing or dyspnea Gastrointestinal: Appetite is good, bowel habits are regular, and there is no complaints of reflux Genitourinary: Nocturia without dysuria or hematuria Neurologic: Without recurrent headaches or paresthesias Musculoskeletal: Without arthralgias or myalgias Hematologic: Without history of bleeding or anemia Dermatologic: Without complaint of rash or skin irritations Psychiatric: Anxiety controlled with Cymbalta and Abilify taken in the morning Physical Exam Vitals & Measurements HR: 64 (Peripheral) RR: 16 BP: 119/80 SpO2: 93% HT: 158 cm WT: 101 kg (Dosing) WT: 101 kg BMI: 40.46 Patient is a pleasant, well-developed, well-nourished 58-year-old female who is not hypersomnolent during this exam Head: Normocephalic Eyes: PERRLA Ears: Symmetrical, canals patent Nose: Symmetrical, nares patent, nasal passages clear Throat: Low-lying soft palate and large dorsum of tongue. Mallampati class IV, Lo class IV Neck: Symmetrical, supple, without adenopathy or thyroid enlargement Heart: Regular rate and rhythm Lungs: Clear to auscultation without crackles, rhonchi or wheezing Abdomen: Appears benign Extremities: Without cyanosis, clubbing, or significant edema Neurologic: Without lateralizing signs as the patient ambulates in the room Musculoskeletal: Endomorphic Dermatologic: No rashes on exposed surfaces Additional Vitals BP Position/Location: Sitting, Left arm Neck size: 16 in Assessment/Plan 1. NEELIMA (obstructive sleep apnea) Severe Based on the patient's EDS, anxiety, diabetes and degree of sleep apnea, her NEELIMA should be treated. Her best treatment option is CPAP therapy. Patient will be initiated on auto CPAP minimum pressure 6, maximum pressure 14, 0 EPR, no ramp. Follow-up in 30-90 days after use for compliance Medical Decision Making Chronic conditions NOT treated during this visit that affected my overall medical decision making: [Anxiety, diabetes] Treatment plans discussed but not opted for at this time: [None] Prescribed medication that requires intensive monitoring for toxicity: [N/A] I have reviewed the patient?s medication list for medication interactions/contraindications and/or for upcoming procedures: [yes or no] Time Spent with the Patient I have personally spent [30] minutes on this date, directly related to today's patient visit, including pre and post visit work, for this date of service. Time listed does not include time spent on separately billable services. Physician Comments Eladio Olivas [facility] [place] [id number] Prescription: Positive Airway Pressure ? In Person Set-up Patient Name: (more content not included)... [facility] 06-16-2024 Telephone encounter Note Message left for Aishwarya regarding sleep study and referral being sent. Left open if she has any questions to please call. [facility] 06-16-2024 Miscellaneous Notes Message left for Aishwarya regarding sleep study and referral being sent. Left open if she has any questions to please call. Sent referral to [facility] with directions to forward to Dr. Plascencia office for obstructive severe sleep apnea. She failed the [facility] home sleep study, result was severe sleep apnea. Jeanine would suggest, given the severity, that we send her to see dr oliver for sleep medicine consult. We can see how long it would take to get appt. documented in this encounter [facility] 06-16-2024 Telephone encounter Note Sent referral to [facility] with directions to forward to Dr. Plascencia office for obstructive severe sleep apnea. [facility] 06-16-2024 Telephone encounter Note She failed the [facility] home sleep study, result was severe sleep apnea. Jeanine would suggest, given the severity, that we send her to see dr oliver for sleep medicine consult. We can see how long it would take to get appt. [facility] 06-08-2024 History of Present illness Narrative Aishwarya Aguila is a 58 y.o. 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 SUBJECTIVE: MEDICATIONS: Current Outpatient Medications Medication Instructions ALPRAZolam (XANAX) 0.25 mg, Nightly PRN amLODIPine (NORVASC) 5 mg, Oral, Daily ARIPiprazole (ABILIFY) 5 mg, Daily Ascorbic Acid (Vitamin C) 500 MG capsule Every 24 hours aspirin 325 mg, Every 12 hours atorvastatin (LIPITOR) 10 mg, Oral, Every morning B Complex Vitamins (B COMPLEX 1 PO) as directed Orally bisoprolol (ZEBETA) 10 mg, Oral, Daily Blood Glucose Monitoring Suppl (FreeStyle Lite) w/Device kit USE DIRECTED calcium carbonate (Os-Wilfredo) 1250 (500 Ca) MG tablet 1 capsule, Daily chlorthalidone (Hygroton) 50 MG tablet TAKE 1 TABLET EVERY MORNING WITH FOOD Continuous Glucose Sensor (Inf[employer]ionics G7 Sensor) misc 1 Units, Does not apply, Every 14 days DULoxetine (CYMBALTA) 60 mg, Daily empagliflozin (JARDIANCE) 25 mg, Oral, Daily escitalopram (LEXAPRO) 10 mg, Daily fluconazole (DIFLUCAN) 100 mg, Oral, Daily FreeStyle lancets USE DIRECTED EVERY DAY glucose blood test strip Daily testing Lancet Devices (Autolet) lancing device Daily testing losartan (COZAAR) 25 mg, Oral, Daily meloxicam (MOBIC) 15 mg, Oral, Daily metFORMIN XR (GLUCOPHAGE-XR) 1,000 mg, Oral, 2 times daily montelukast (SINGULAIR) 10 mg, Oral, Every morning Ozempic (2 MG/DOSE) 2 mg, Subcutaneous, Weekly sulfacetamide (Bleph-10) 10 % ophthalmic solution 2 drops Synthroid 100 MCG tablet TAKE 1 TABLET IN THE MORNING BEFORE A MEAL therapeutic multivitamin-minerals (Theragran-M) tablet 1 tablet, Daily traZODone (DESYREL) 75 mg, Nightly PRN zinc gluconate 50 mg, Daily ALLERGIES: Allergies Allergen Reactions Iodides Heart Cath dye Iodinated Contrast Media Hives Lisinopril Cough Shellfish-Derived Products SURGICAL HISTORY: Past Surgical History: Procedure Laterality Date CERVICAL DISC ARTHROPLASTY 12/2017 C 6-7 SECTION, CLASSIC FOOT SURGERY Left 01/14/2024 FOOT SURGERY Right 04/07/2024 HEART CATH 2008 and 07/2017 OTHER SURGICAL [...] REVIEW OF SYMPTOMS: Review of Systems Constitutional: Positive for fatigue. Negative for activity change. HENT: Snoring Eyes: Negative for visual disturbance. Respiratory: Negative for cough and wheezing. Cardiovascular: Negative for chest pain and leg swelling. Gastrointestinal: Negative for abdominal pain. Genitourinary: Negative for difficulty urinating. Musculoskeletal: Negative for arthralgias. Neurological: Negative for weakness. Psychiatric/Behavioral: Negative. Allergic/Immunologic: Negative for environmental allergies. OBJECTIVE: Visit Vitals BP 128/72 (BP Location: Left arm, Patient Position: Sitting, BP Cuff Size: Adult) Pulse 70 Temp 98.2 F (Tympanic) Resp 18 Ht 5' 3 Wt 225 lb 6.4 oz SpO2 93% BMI 39.93 kg/m OB Status Hysterectomy Smoking Status Never BSA 2.13 m Physical Exam Constitutional: Appearance: Normal appearance. HENT: Mouth/Throat: Comments: Mallampati 3 Eyes: Pupils: Pupils are equal, round, and reactive to light. Cardiovascular: Rate and Rhythm: Normal rate and regular rhythm. Pulses: Normal pulses. Heart sounds: Normal heart sounds. Pulmonary: Effort: Pulmonary effort is normal. Breath sounds: Normal breath sounds. Musculoskeletal: Cervical back: Normal range of motion and neck supple. Skin: General: Skin is warm and dry. Neurological: General: No focal deficit present. Mental Status: She is alert. Psychiatric: Mood and Affect: Mood normal. Comments: Alert and interactive Rev her evens from home re the sleep apnea Wt up 6 pounds ASSESSMENT AND PLAN: Assessment/Plan Diagnoses and all orders for this visit: Type 2 diabetes mellitus without complication, without long-term current use of insulin ([facility]) Comments: ozempic dose increased to 2mg per week due to lack of any sx on the 1 mg dose. last aic 7.3 on 11-06-23 Visit for screening mammogram - Bilateral screening mammogram; Future Follow up in about 3 months (around 09/06/2024). documented in this encounter [facility] 06-08-2024 Instructions Jeanine Whitlock NP - 06/08/2024 9:30 AM EST Somebody will call from [facility] requesting a sleep study that will be mailed to you Update aic prior to next appt in early September Schedule mammo documented in this encounter [facility] 06-07-2024 Telephone encounter Note Clarified pharmacy for the ozempic 2 mg [facility] 06-07-2024 Miscellaneous Notes Clarified pharmacy for the ozempic 2 mg documented in this encounter [facility] 05-05-2024 Telephone encounter Note Resent correct rx [facility] 05-05-2024 Miscellaneous Notes Resent correct rx documented in this encounter [facility] 05-04-2024 Telephone encounter Note Increase to ozempic 1 mg dose per emessage request. [facility] 05-04-2024 Miscellaneous Notes Increase to ozempic 1 mg dose per emessage request. documented in this encounter [facility] 04-03-2024 History of Present illness Narrative Skin Check Location: Patient requests [...] limited to risks of scarring, darker or bliss press operator pigmentary changes, recurrence, incomplete removal and [...] Visit: 1 year documented in this encounter [facility] 03-27-2024 Telephone encounter Note Pharmacy requesting new RX for losartan for pt. [facility] 03-27-2024 Miscellaneous Notes Pharmacy requesting new RX for losartan for pt. documented in this encounter [facility] 03-10-2024 Telephone encounter Note noted [facility] 03-10-2024 Miscellaneous Notes noted Spoke with Maddie and notified her and she reports she has taken the Ozempic previously however after her sugars got better her insurance stopped paying for it. Answered the PA questions online and attached progress notes and A1C. Please let maddie know that jeanine sent ozempic once weekly [...] do about this. documented in this encounter [facility] 03-10-2024 Telephone encounter Note Spoke with Maddie and notified her and she reports she has taken the Ozempic previously however after her sugars got better her insurance stopped paying for it. Answered the PA questions online and attached progress notes and A1C. [facility] 03-10-2024 Telephone encounter Note Please let maddie know that jeanine sent ozempic once weekly to the local pharmacy for her. This triggered a PA so we will need to see what that looks like. Call if any issues swallowing or abd pain. Beware of constipation. Call if questions. Continue jardiance and metformin. T [facility] 03-10-2024 Telephone encounter Note She has been wearing the dexcom and her average sugars are running 196. Patient states that she has been eating better, but the alarm that her sugar is high will still go off. She is not sure what more she should do about this. [facility] 03-06-2024 History of Present illness Narrative Aishwarya Aguila is a 58 y.o. female presents [...] complication, without long-term current use of insulin ([facility]) Comments: trial cgm, dexcom 7 sample placed [...] mo aic prior. documented in this encounter [facility] 03-06-2024 Instructions Jeanine Whitlock NP - 03/06/2024 [...] protein before carbs documented in this encounter [facility] 02-28-2024 Telephone encounter Note Daily fluconazole sent [facility] 02-28-2024 Miscellaneous Notes Daily fluconazole sent PT called in stating she thinks she has a yeast infection. She mentioned she is having itching and when she is wiping she is getting a little blood just enough she knows she is raw down there, asking if we can call something in for her. PT uses [facility]. documented in this encounter [facility] 02-28-2024 Telephone encounter Note PT called in stating she thinks she has a yeast infection. She mentioned she is having itching and when she is wiping she is getting a little blood just enough she knows she is raw down there, asking if we can call something in for her. PT uses [facility]. [facility] 01-22-2024 History of Present illness Narrative Aishwarya Aguila is a 58 y.o. female presents with chief complaint of Hospital Follow-up (Had bunion surgery and they straightened her big toe and then while in surgery her blood pressure dropped and received fluids and the BP stabilized and then she didn't take all of her medication the next few days. //Noticed red spot on right breast denies lump or painful or itchy) HPI: Here for hospital folllow up Had lost a fair amount of weight, doing sglt 2 and trying to eat healthy Was fasting and npo on arrival for surgery She felt better with fluids Stopped the losartan and the amlodipine, dr walker sent this provider a personal message regarding those changes, she thinks that she is still taking chlorthalidone Feels well Still on oxycodone for pain Doing well post op Has appt this Saturday with dr piper SUBJECTIVE: MEDICATIONS: Current Outpatient Medications Medication Instructions [...] Ca) MG tablet 1 capsule, Oral, Daily cephalexin (KEFLEX) 500 mg, Oral, 3 times daily chlorthalidone (Hygroton) 50 MG tablet TAKE 1 TABLET EVERY MORNING WITH FOOD [facility] Aspirin 325 mg, Oral, 2 times daily DULoxetine (CYMBALTA) 60 mg, Oral, Daily empagliflozin (JARDIANCE) 10 mg, Oral, Daily FreeStyle lancets USE DIRECTED EVERY DAY glucose blood test strip Daily testing Lancet Devices (Autolet) lancing device Daily testing losartan (COZAAR) 25 mg, Oral, Daily meloxicam (MOBIC) 15 mg, Oral, Daily metFORMIN XR (GLUCOPHAGE-XR) 1,000 mg, Oral, 2 times daily montelukast (SINGULAIR) 10 mg, Oral, Daily ondansetron (Zofran) 4 MG tablet 1 tablet, Oral, Every 6 hours PRN oxyCODONE-acetaminophen (Percocet) 5-325 MG tablet Every 4 hours Synthroid 100 MCG tablet TAKE 1 TABLET [...] Drug use: Never Depression: Not at risk (11/19/2023) PHQ-2 PHQ-2 Score: 0 REVIEW OF SYMPTOMS: Review of Systems Constitutional: Negative for activity change. Eyes: Negative for visual disturbance. Respiratory: Negative for cough and wheezing. Cardiovascular: Negative for chest pain and leg swelling. Gastrointestinal: Negative for abdominal pain. Genitourinary: Negative for difficulty urinating. Musculoskeletal: Negative for arthralgias. Recent foot surgery per dr piper, left foot wrapped in divina toes to knee, using scooter, is nwb Neurological: Negative for weakness. Psychiatric/Behavioral: Negative. Allergic/Immunologic: Negative for environmental allergies. OBJECTIVE: Visit Vitals BP 115/70 (BP Location: Left arm, Patient Position: Sitting, BP Cuff Size: Adult) Pulse 84 Temp 98.4 F (Tympanic) Resp 18 Ht 5' 3 Wt 215 lb SpO2 95% BMI 38.09 kg/m OB Status Hysterectomy Smoking Status Never BSA 2.08 m Physical Exam Constitutional: Appearance: Normal appearance. HENT: Mouth/Throat: Mouth: Mucous membranes are moist. Eyes: Pupils: Pupils are equal, round, and reactive to light. Cardiovascular: Rate and Rhythm: Normal rate and regular rhythm. Pulses: Normal pulses. Heart sounds: Normal heart sounds. Pulmonary: Effort: Pulmonary effort is normal. Breath sounds: Normal breath sounds. Musculoskeletal: Cervical back: Normal range of motion and neck supple. Comments: Recent foot surgery per dr piper, left foot wrapped in divina toes to knee, using scooter, is nwb Skin: General: Skin is warm and dry. Neurological: General: No focal deficit present. Mental Status: She is alert. Psychiatric: Mood and Affect: Mood normal. Comments: Alert and interactive Appears cheerful and animated [facility] discharge summary ASSESSMENT AND PLAN: Assessment/Plan Diagnoses and all orders for this visit: Other specified hypotension Comments: multifactorial, farxiga, wt loss, anesthesia, npo status prior to surgery. push fluids. restart losartan 25mg after done with pain meds for prophylaxis renal fx Type 2 diabetes mellitus without complication, without long-term current use of insulin ([facility]) Comments: aic is 7.3%, up from previous,. continue farxiga. push fluids, discussed how the sgtl2 works. recheck aic on after feb 05, order on deck Orders: - empagliflozin (Jardiance) 10 MG; Take 1 tablet (10 mg) by mouth Daily - losartan (Cozaar) 50 MG tablet; Take 0.5 tablets (25 mg) by mouth Daily Follow up for mar 06 wellvisit. documented in this encounter [facility] 01-22-2024 Instructions Jeanine Whitlock NP - 01/22/2024 3:00 PM EDT Stay off of the amlodipine Stay off of the chlorthalidone Add back in losartan 25mg ( about 1/4 tab after you have weaned off the pain meds) Covid vaccine update, flu vaccine late March Aic after feb 05 documented in this encounter [facility] Evaluation note Diagnosis Mild intermittent asthma without complication Unspecified asthma documented in this encounter [facility] Phone: evaluation note* Diagnosis Age-related osteoporosis without current pathological fracture Senile osteoporosis [facility] Diagnosis Type 2 diabetes mellitus without complication, without long-term current use of insulin ([facility])- Primary Wellness examination Type 2 diabetes mellitus with hyperglycemia, with long-term current use of insulin ([facility]) Acute post-traumatic stress disorder ([facility]) ENRIQUE (generalized anxiety disorder) ([facility]) Generalized anxiety disorder Severe single current episode of major depressive disorder, without psychotic features ([facility]) Acquired hypothyroidism ([facility]) Unspecified hypothyroidism Panic disorder with agoraphobia ([facility]) Agoraphobia with panic disorder Pure hypercholesterolemia ([facility]) Pure hypercholesterolemia Primary hypertension (CMS/HCC) Unspecified essential hypertension Mild intermittent asthma without complication (CMS/HCC) Immunization due Hallux valgus (acquired), left foot Degenerative cervical disc Primary insomnia Persistent disorder of initiating or maintaining sleep Vitamin D deficiency Hallux rigidus, left foot Environmental and seasonal allergies BMI 38.0-38.9,adult [facility] Diagnosis Type 2 diabetes mellitus with hyperglycemia, with long-term current use of insulin (CMS/[facility])- Primary [facility] Diagnosis Environmental and seasonal allergies Pure hypercholesterolemia (CMS/[facility]) Pure hypercholesterolemia [facility]* Diagnosis Type 2 diabetes mellitus without complication, without long-term current use of insulin (CMS/[facility]) [facility] Diagnosis Seborrheic keratosis- Primary Melanocytic nevus of trunk Benign neoplasm of skin of trunk, except scrotum Inflamed seborrheic keratosis Surgery, elective Unspecified elective surgery for purposes other than remedying health states [facility] Diagnosis Type 2 diabetes mellitus with hyperglycemia, with long-term current use of insulin (CMS/HCC) [facility] Diagnosis Type 2 diabetes mellitus without complication, without long-term current use of insulin (CMS/HCC)- Primary [facility] Diagnosis Other specified hypotension- Primary Type 2 diabetes mellitus without complication, without long-term current use of insulin (CMS/HCC) [facility] Diagnosis Sandi vaginitis- Primary Candidiasis of vulva and vagina [facility]* Diagnosis Type 2 diabetes mellitus without complication, without long-term current use of insulin (CMS/HCC)- Primary Type 2 diabetes mellitus without complication, without long-term current use of insulin (CMS/HCC)- Primary Visit for screening mammogram [facility]* Diagnosis Type 2 diabetes mellitus without complication, without long-term current use of insulin (CMS/HCC)- Primary Visit for screening mammogram Morbid (severe) obesity due to excess calories ([facility]) [facility]* Diagnosis Acquired hypothyroidism (CMS/[facility]) Unspecified hypothyroidism [facility]* Diagnosis Degenerative cervical disc Essential hypertension (CMS/HCC) Unspecified essential hypertension Type 2 diabetes mellitus without complication, without long-term current use of insulin (CMS/HCC) documented in this encounter [facility]* Diagnosis Severe obstructive sleep apnea documented in this encounter [facility]* Diagnosis STD exposure Women's annual routine gynecological examination documented in this encounter [facility] note* Diagnosis Acute non-recurrent maxillary sinusitis- Primary documented in this encounter [facility]* Diagnosis HGSIL on cytologic smear of cervix documented in this encounter [facility] note* Diagnosis Type 2 diabetes mellitus without complication, without long-term current use of insulin (CMS/HCC) documented in this encounter [facility]* Diagnosis Type 2 diabetes mellitus without complication, without long-term current use of insulin- Primary Primary hypertension (CMS/HCC) Unspecified essential hypertension BMI 39.0-39.9,adult Dysuria Wellness examination Screening for deficiency anemia Screening for other and unspecified deficiency anemia Abnormal thyroid screen (blood) Nonspecific abnormal results of thyroid function study Screening, lipid Vitamin D deficiency documented in this encounter [facility]* Diagnosis Type 2 diabetes mellitus without complication, without long-term current use of insulin documented in this encounter [facility]* Diagnosis Type 2 diabetes mellitus with hyperglycemia, with long-term current use of insulin (HCC)- Primary documented in this encounter [facility]* Diagnosis Type 2 diabetes mellitus with hyperglycemia, with long-term current use of insulin (HCC) documented in this encounter [facility]* Diagnosis Type 2 diabetes mellitus without complication, without long-term current use of insulin (HCC) documented in this encounter [facility]* Diagnosis Acquired hypothyroidism Unspecified hypothyroidism [facility]* Diagnosis Type 2 diabetes mellitus with hyperglycemia, with long-term current use of insulin (HCC)- Primary documented in this encounter [facility]* Diagnosis Type 2 diabetes mellitus with hyperglycemia, with long-term current use of insulin (HCC)- Primary documented in this encounter [facility]* Diagnosis Type 2 diabetes mellitus with hyperglycemia, with long-term current use of insulin (HCC)- Primary documented in this encounter [facility] Summary Purpose Family History No Family History Records FoundNo Family History Records FoundNo Family History Records FoundNo Family History Records FoundNo Family History Records Found Advance Directives Documents on File Type Date Recorded Patient Bulb Grader Expl anation ACP-Advance Directive ACP-Power of Mill Roll Rewinder Latest Code Status on File Code Status [...] Code 07/20/2017 6:15 AM 07/22/2017 1:14 PM Date Activated Date Inactivated Comments 07/22/2017 1:14 PM 07/22/2017 9:48 PM Date Activated Date Inactivated Comments 07/20/2017 6:15 AM 07/22/2017 1:14 PM Reason for Referral Specialty Diagnoses / Procedures Referred By Contac t Referred To Contact Radiology Diagnoses Age-related osteoporosis without current pathological fracture Procedures DEXA BONE DENSITY 2 SITES DEXA BONE DENSITY AXIAL SKELETON Tyler Ramey MD [address] [place] [address] Referral ID Status Reason Start Date Expiration Date V isits Requested Visits Authorized [id number] Pending Review 05/24/2023 05/23/2024 1 1 Specialty Diagnoses / Procedures Referred By Contac t Referred To Contact Diagnoses Type 2 diabetes mellitus without complication, without long-term current use of insulin (CMS/HCC) Jeanine Whitlock, STATION MANAGER [address] [place] [address] Referral ID Status Reason Start Date Expiration Date Visits Re quested Visits Authorized [id number] Closed 1 1 Specialty Diagnoses / Procedures Referred By Contac t Referred To Contact Diagnoses Type 2 diabetes mellitus with hyperglycemia, with long-term current use of insulin (CMS/HCC) Jeanine Whitlock, STATION MANAGER [address] [place] [address] Referral ID Status Reason Start Date Expiration Date V isits Requested Visits Authorized [id number] Authorized 03/10/2024 03/10/2027 1 1 Additional Source Comments INFORMATION SOURCE (unrecogn ized section and content) DATE CREATED AUTHOR 11/22/2017 [facility] DATE CREATED AUTHOR AUTHOR'S ORGANIZ ATION 07/18/2023 [facility] DATE CREATED AUTHOR AUTHOR'S ORGANIZ ATION 06/26/[address] [facility] DATE CREATED AUTHOR AUTHOR'S ORGANIZ ATION 08/11/2024 [facility] DATE CREATED AUTHOR AUTHOR'S ORGANIZ ATION 09/14/2024 [facility] EPIC Care Teams (unrecognized sec tion and content) Live Ammunition Inspector Relationship Specialty Start Date End Date Jeanine Whitlock [address] [place] [address] PCP - General 04/16/16 Live Ammunition Inspector Relationship Specialty Start Date End Date Jeanine Whitlock [address] [place] [address] PCP - General 04/16/16 Live Ammunition Inspector Relationship Specialty Start Date End Date Jose Putnam DO [address] [place] [address] PCP - General Family Medicine 11/09/22 Jeanine Whitlock STATION MANAGER [address] [place] [address] Nurse Practitioner Family Medicine 11/09/22 Live Ammunition Inspector Relationship Specialty Start Date End Date Jose Putnam DO [address] [place] [address] PCP - General Family Medicine 11/09/22 Jeanine Whitlock, STATION MANAGER [address] [place] [address] Nurse Practitioner Family Medicine 11/09/22 Live Ammunition Inspector Relationship Specialty Start Date End Date Jose Putnam DO [address] [place] [address] PCP - General Family Medicine 11/09/22 Jeanine Whitlock, STATION MANAGER [address] [place], [place] [id number] Nurse Practitioner Family Medicine 11/09/22 Live Ammunition Inspector Relationship Specialty Start Date End Date Jose Putnam DO [address] [place], [place] [id number] PCP - General Family Medicine 11/09/22 Jeanine Whitlock, STATION MANAGER [address] [place] [address] Nurse Practitioner Family Medicine 11/09/22 Live Ammunition Inspector Relationship Specialty Start Date End Date Jose Putnam DO [address] [place] [address] PCP - General Family Medicine 11/09/22 Jeanine Whitlock, STATION MANAGER [address] [place], [place] [id number] Nurse Practitioner Family Medicine 11/09/22 Live Ammunition Inspector Relationship Specialty Start Date End Date Jose Putnam DO [address] [place] [address] PCP - General Family Medicine 11/09/22 Jeanine Whitlock, STATION MANAGER [address] [place] [address] Nurse Practitioner Family Medicine 11/09/22 Live Ammunition Inspector Relationship Specialty Start Date End Date Jose Putnam DO [address] [place] [address] PCP - General Family Medicine 11/09/22 Jeanine Whitlock, STATION MANAGER [address] [place] [address] Nurse Practitioner Family Medicine 11/09/22 Live Ammunition Inspector Relationship Specialty Start Date End Date Jose Putnam DO [address] [place] [address] PCP - General Family Medicine 11/09/22 Jeanine Whitlock, STATION MANAGER [address] [place] [address] Nurse Practitioner Family Medicine 11/09/22 Live Ammunition Inspector Relationship Specialty Start Date End Date Jose Putnam DO [address] [place] [address] PCP - General Family Medicine 11/09/22 Jeanine Whitlock, STATION MANAGER [address] [place] [address] Nurse Practitioner Family Medicine 11/09/22 Live Ammunition Inspector Relationship Specialty Start Date End Date Jose Putnam DO [address] [place] [address] PCP - General Family Medicine 11/09/22 Jeanine Whitlock, STATION MANAGER [address] [place] [address] Nurse Practitioner Family Medicine 11/09/22 Live Ammunition Inspector Relationship Specialty Start Date End Date Jose Putnam DO [address] [place] [address] PCP - General Family Medicine 11/09/22 Jeanine Whitlock, STATION MANAGER [address] [place], [place] [id number] Nurse Practitioner Family Medicine 11/09/22 Live Ammunition Inspector Relationship Specialty Start Date End Date Jose Putnam DO [address] [place] [address] PCP - General Family Medicine 11/09/22 Jeanine Whitolck, STATION MANAGER [address] [place] [address] Nurse Practitioner Family Medicine 11/09/22 Live Ammunition Inspector Relationship Specialty Start Date End Date Jose Putnam DO [address] [place] [address] PCP - General Family Medicine 11/09/22 Jeanine Whitlock, STATION MANAGER [address] [place] [address] Nurse Practitioner Family Medicine 11/09/22 Live Ammunition Inspector Relationship Specialty Start Date End Date Jose Putnam DO [address] [place] [address] PCP - General Family Medicine 11/09/22 Jeanine Whitlock, STATION MANAGER [address] [place] [address] Nurse Practitioner Family Medicine 11/09/22 Live Ammunition Inspector Relationship Specialty Start Date End Date Indy, Jose G, DO [address] [place] [address] PCP - General Family Medicine 11/09/22 Jeanine Whitlock, STATION MANAGER [address] [place], [place] [phone] Nurse Practitioner Family Medicine 11/09/22 Live Ammunition Inspector Relationship Specialty Start Date End Date Jose Putnam DO [address] [place] [address] PCP - General Family Medicine 11/09/22 Jeanine Whitlock, STATION MANAGER [address] [place], [place] [address] Nurse Practitioner Family Medicine 11/09/22 Live Ammunition Inspector Relationship Specialty Start Date End Date Jose Putnam DO [address] [place] [address] PCP - General Family Medicine 11/09/22 Jeanine Whitlock, STATION MANAGER [address] [place] [address] Nurse Practitioner Family Medicine 11/09/22 Live Ammunition Inspector Relationship Specialty Start Date End Date Jeanine Whitlock, RADIO RECORDER - STATION MANAGER [address] [place], [place] [id number] PCP - General 04/16/16 Live Ammunition Inspector Relationship Specialty Start Date End Date Jose Putnam DO [address] [place] [address] PCP - General Family Medicine 11/09/22 Jeanine Whitlock, STATION MANAGER [address] [place] [address] Nurse Practitioner Family Medicine 11/09/22 Live Ammunition Inspector Relationship Specialty Start Date End Date Jeanine Whitlock APRN - STATION MANAGER [address] [place], [place] [id number] PCP - General 04/16/16 Live Ammunition Inspector Relationship Specialty Start Date End Date Jose Putnam DO [address] [place], [place] [id number] PCP - General Family Medicine 11/09/22 Jeanine Whitlock, STATION MANAGER [address] [place], [place] [phone] Nurse Practitioner Family Medicine 11/09/22 Live Ammunition Inspector Relationship Specialty Start Date End Date Jose Putnam DO [address] [place] [address] PCP - General Family Medicine 11/09/22 Jeanine Whitlock, STATION MANAGER [address] [place], [place] [phone] Nurse Practitioner Family Medicine 11/09/22 Live Ammunition Inspector Relationship Specialty Start Date End Date Jose Putnam DO [address] [place] [address] PCP - General Family Medicine 11/09/22 Jeanine Whitlock STATION MANAGER [address] [place] [address] Nurse Practitioner Family Medicine 11/09/22 Live Ammunition Inspector Relationship Specialty Start Date End Date Jose Putnam DO [address] [place] [address] PCP - General Family Medicine 11/09/22 Jeanine Whitlock, STATION MANAGER [address] [place] [address] Nurse Practitioner Family Medicine 11/09/22 Live Ammunition Inspector Relationship Specialty Start Date End Date Jose Putnam DO [address] [place] [address] PCP - General Family Medicine 11/09/22 Jeanine Whitlock, STATION MANAGER [address] [place], [place] [id number] Nurse Practitioner Family Medicine 11/09/22 Live Ammunition Inspector Relationship Specialty Start Date End Date Jose Putnam DO [address] [place] [id number] PCP - General Family Medicine 11/09/22 Jeanine Whitlock, STATION MANAGER [address] [place] [address] Nurse Practitioner Family Medicine 11/09/22 Live Ammunition Inspector Relationship Specialty Start Date End Date Jose Putnam DO [address] [place] [address] PCP - General Family Medicine 11/09/22 Jeanine Whitlock, STATION MANAGER [address] [place] [address] Nurse Practitioner Family Medicine 11/09/22 Reason for Visit (unrecogniz ed section and content) Specialty Diagnoses / Procedures Referred By Contac t Referred To Contact Radiology Diagnoses Age-related osteoporosis without current pathological fracture Procedures DEXA BONE DENSITY 2 SITES DEXA BONE DENSITY AXIAL SKELETON Tyler Ramey MD [address] [place] [address] Referral ID Status Reason Start Date Expiration Date V isits Requested Visits Authorized [id number] Pending Review 05/24/2023 05/23/2024 1 1 Reason Comments Annual Exam Reason Onset Date Comments update on dexcom and blood sugars 03/10/2024 New Medication ordered 03/10/2024 Reason Comments Med Refill Reason Onset Date Comments Med Refill 03/27/2024 Reason Comments Skin Check Reason Comments Hospital Follow-up Had bunion surgery a nd they straightened her big toe and then while in surgery her blood pressure dropped and received fluids and the BP stabilized and then she didn't take all of her medication the next few days. Noticed red spot on right breast denies lump or painful or itchy Reason Onset Date Comments Vaginitis/Bacterial Vaginosis 02/28/2024 Reason Comments Sleeping Problem Reason Onset Date Comments Referral 06/16/2024 [place] Results 06/16/2024 Reason Comments Cough Started almost 2 wee ks ago, pt states its so bad its hurting my ribs and making me pee Also has a lot of mucous, had fevers the first week, but has resolved, slight nausea this morningHas tried OTC meds but its not going away Reason Onset Date Comments Med Refill 08/26/2024 Reason Comments Diabetes Follow up Reason Onset Date Comments Med Refill 10/14/2024 Reason Onset Date Comments continuous glucose monitor 11/13/2024 Reason Comments Med Change Request Reason Onset Date Comments Med Refill 12/31/2024 FOR RECORDS PERTAINING TO PATIENTS WHO ARE [...] BE BASED ON THE PRIMARY CLINICAL RECORDS. [facility]. provides no warranty or guarantee of the accuracy or completeness of information in this document.
--- NOTE | 2025-02-16 13:31 | PM.PRESUREVA ---
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 The patient reports a history of right foot pain. She states she had right foot surgery in April 2024 and recently has been having swelling and pain at her incision site which is worse with certain activities. She denies any specific trauma or injury. She denies numbness, tingling, weakness, or any other complaints. Review of Systems ROS Narrative REVIEW OF SYSTEMS: Negative except as stated in HPI, ten or more systems reviewed. Constitutional: No fever, chills, weakness ENT: No sore throat or epistaxis Cardiovascular: No edema, chest pain, palpitations, or activity intolerance Respiratory: No shortness of breath or wheezing; reports cough Gastrointestinal: No abdominal pain, constipation, diarrhea, or vomiting Genitourinary: No dysuria or hematuria Neurological: No numbness, tingling, weakness, or headache Psychiatric: No mood changes PFSH PFS Medical History (Updated 02/16/25 @ 13:30 by Alicia Rico NP) Right foot pain ?M79.671 - Pain in right foot (ICD-10) Pseudarthrosis after fusion or arthrodesis ?M96.0 - Pseudarthrosis after fusion or arthrodesis (ICD-10) Nonunion of joint fusion NEELIMA on CPAP ?G47.33 - Obstructive sleep apnea (adult) (pediatric) (ICD-10) Toe deformity ?M20.60 - Acquired deformities of toe(s), unspecified, unspecified foot (ICD-10) Arthritis ?M19.90 - Unspecified osteoarthritis, unspecified site (ICD-10) PTSD (post-traumatic stress disorder) ?F43.10 - Post-traumatic stress disorder, unspecified (ICD-10) Depression ?F32.A - Depression, unspecified (ICD-10) Panic attacks ?F41.0 - Panic disorder [episodic paroxysmal anxiety] (ICD-10) Anxiety ?F41.9 - Anxiety disorder, unspecified (ICD-10) COVID-19 ?U07.1 - COVID-19 (ICD-10) Migraine ?G43.909 - Migraine, unspecified, not intractable, without status migrainosus (ICD-10) Extremity edema ?R60.0 - Localized edema (ICD-10) Menopause ?Z78.0 - Asymptomatic menopausal state (ICD-10) Neuropathy, cervical (radicular) ?M54.12 - Radiculopathy, cervical region (ICD-10) Hypothyroid ?E03.9 - Hypothyroidism, unspecified (ICD-10) Hypertension ?I10 - Essential (primary) hypertension (ICD-10) Asthma ?J45.909 - Unspecified asthma, uncomplicated (ICD-10) Diabetes ?E11.9 - Type 2 diabetes mellitus without complications (ICD-10) Foot pain ?M79.673 - Pain in unspecified foot (ICD-10) Hallux rigidus ?M20.20 - Hallux rigidus, unspecified foot (ICD-10) Hallux valgus ?M20.10 - Hallux valgus (acquired), unspecified foot (ICD-10) Surgical History (Updated 02/11/25 @ 14:05 by Alicia Rico NP) H/O foot surgery (04/07/24) ?Z98.890 - Other specified postprocedural states (ICD-10) H/O foot surgery (01/16/24) ?Z98.890 - Other specified postprocedural states (ICD-10) History of colonoscopy ?Z98.890 - Other specified postprocedural states (ICD-10) History of cardiac catheterization ?Z98.890 - Other specified postprocedural states (ICD-10) H/O cervical spine surgery ?Z98.890 - Other specified postprocedural states (ICD-10) History of cardiac catheterization ?Z98.890 - Other specified postprocedural states (ICD-10) H/O section ?Z98.891 - History of uterine scar from previous surgery (ICD-10) Hx of tonsillectomy ?Z90.89 - Acquired absence of other organs (ICD-10) Family History Other Family history of diabetes mellitus Family history of hypertension Family history of myocardial infarction Family history of stroke Social History Within the past year, how often did you have a drink containing alcohol: monthly or less Smoking status: Never smoker Second hand tobacco smoke exposure: Yes Non-prescribed substance use: denies use 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 Highest level of school completed/degree received: Master's degree Meds Home Medications and Allergies Home Medications ?Medication ?Instructions ?Recorded ?Confirmed ?Type alprazolam 0.25 mg tablet 0.25 mg PO .QD PRN anxiety 01/10/24 02/16/25 History aripiprazole 5 mg tablet 5 mg PO DAILY 01/10/24 02/16/25 History ascorbic acid (vitamin C) 1,000 mg 1 g PO DAILY 01/10/24 02/16/25 History capsule aspirin 81 mg tablet,delayed 81 mg PO DAILY 01/10/24 02/16/25 History release (Adult Aspirin Regimen) bisoprolol fumarate 10 mg tablet 10 mg PO DAILY 01/10/24 02/16/25 History calcium carbonate 500 mg PO DAILY 01/10/24 02/16/25 History chlorthalidone 50 mg tablet 50 mg PO DAILY 01/10/24 02/16/25 History duloxetine 60 mg capsule,delayed 120 mg PO DAILY 01/10/24 02/16/25 History release empagliflozin 10 mg tablet 10 mg PO DAILY 01/10/24 02/16/25 History (Jardiance) meloxicam 15 mg tablet 15 mg PO DAILY 01/10/24 02/16/25 History metformin 500 mg tablet,extended 1,000 mg PO BID 01/10/24 02/16/25 History release 24 hr montelukast 10 mg tablet 10 mg PO DAILY 01/10/24 02/16/25 History multivitamin (Daily Multi-Vitamin 1 tab PO DAILY 01/10/24 02/16/25 History tablet) trazodone 150 mg tablet 75 mg PO QPM PRN insomnia 01/10/24 02/16/25 History vitamin B complex (Complex B-100 1 tab PO DAILY 01/10/24 02/16/25 History tablet,extended release) levothyroxine 100 mcg tablet 100 mcg PO DAILY 01/16/24 02/16/25 History (Synthroid) amlodipine 5 mg tablet 5 mg PO DAILY 03/30/24 02/16/25 History escitalopram oxalate 10 mg tablet 10 mg PO QPM 03/30/24 02/16/25 History losartan 50 mg tablet 50 mg PO DAILY 03/30/24 02/16/25 History atorvastatin 10 mg tablet 10 mg PO DAILY 02/16/25 02/16/25 History semaglutide 2 mg/dose (8 mg/3 mL) 2 mg subcut QWEEK 02/16/25 02/16/25 History subcutaneous pen injector (Ozempic) zinc 50 mg capsule 50 mg PO DAILY 02/16/25 02/16/25 History Allergies Allergy/AdvReac Type Severity Reaction Status Date / Time Iodinated Contrast Media Allergy Rash Verified 02/16/25 12:47 shellfish derived Allergy Rash Verified 02/16/25 12:47 lisinopril AdvReac Cough Verified 02/16/25 12:47 Exam Narrative Exam Narrative: Constitutional: Awake, alert, comfortable, well-appearing, nontoxic, interactive, vital signs as charted Head: Normocephalic, atraumatic Neck: Supple, normal appearance, normal range of motion, no meningeal signs, no lymphadenopathy Respiratory: No respiratory distress, breath sounds clear Cardiovascular: Regular rate and rhythm, strong and regular heart tones Abdomen: Nontender, normal bowel sounds, soft Musculoskeletal: Normal gait, right foot tenderness overlying first MPJ incision line, limited ROM, good capillary refill, sensation intact Skin: No rashes or induration, no lesions, only visible skin inspected Neuro: No neurological deficits, normal sensation Psychiatric: Oriented ?3, normal affect Assessment and Plan Assessment and Plan (1) Right foot pain: (2) Pseudarthrosis after fusion or arthrodesis: (3) Nonunion of joint fusion: (4) Hallux rigidus: (5) Hallux valgus: Plan Revision of right first MPJ fusion with excision of nonunion, removal of hardware, and bone graft as needed scheduled with Dr. Sanon March 02, 2025.
[2025-02-16 13:39] LABS: Anion Gap 12.6; Blood Urea Nitrogen 23.0 mg/dL (7.0-18.0); Calcium 9.2 mg/dL (8.5-10.1); Carbon Dioxide 31.5 mmol/L (21.0-32.0); Chloride 100 mmol/L (98-107); Estimated GFR (African America >60 (>=60 mL/min/1.73m^2); Estimated GFR (Non-African Ame >60 (>=60 mL/min/1.73m^2); Glucose 219 mg/dL (74-106); Potassium 3.1 mmol/L (3.5-5.1); Sodium 141 mmol/L (136-145)
[2025-02-16 13:43] LABS: SARS-CoV-2 Ag POSITIVE (NEGATIVE)
== END 2025-02-16 12:36 | disposition home or self-care (01) ==
LOC: PST 12:36
PROVIDERS: PCP Nurse Practitioner; Visit Provider Podiatrist Foot & Ankle Surgery
DX: Z01.810 Encounter for preprocedural cardiovascular examination (principal); Z01.812 Encounter for preprocedural laboratory examination; M20.21 Hallux rigidus, right foot; M20.11 Hallux valgus (acquired), right foot; E11.9 Type 2 diabetes mellitus without complications
CPT/HCPCS: 80048; 83036; 87811; 93005; G0463

== ENCOUNTER 2025-04-23 13:18 | Outpatient (OUT) | payer OTHER, SELFPAY ==
--- OUTSIDE RECORDS SUMMARY | 2024-04-07 03:00 | XMS_ITS ---
Author Organization The [facility] in [place] Address [address] [place] [address] Care Team Providers Care Solar Electric/Photovoltaic Installer Name Role Phone Jeanine Erickson RN Primary Care Provider Josiah Zabala [phone] REASON FOR VISIT RT 1st MPJ fusion Encounters Encounter Location Date Provider Diagnosis THE [address] [address] 04/07/2024 Josiah Sanon Plan Of Treatment No Information Progress Notes * Patti DUNNTerranceB:[birth year] (59 yo F)Acc No.[id number]:04/07/2024 UNLOCKED PROGRESS NOTE Patient:?Nadeen DUNN :?Josiah Sanon DPM, MSDOB:1965???Age: 58 Y???Sex:FemaleDate:4Phone:[phone]:[address] [place] [address] [address], [place], [place]Liu:DOMINICK GonzalezChemin Out:08:39 AM EST * * Electronic signature of Josiah Sanon DPM on 04/23/2025 at 01:23 PM ESTSign off status: PendingVisit Status:?CHK (Check Out) * Provider: Silvio Sanon DPM, [place] Date: 06/07/2023 Generated for Printing/Faxing/eTransmitting on:?04/23/2025 01:23 PM EST
--- OUTSIDE RECORDS SUMMARY | 2024-04-07 03:45 | XMS_ITS ---
Author Organization The [facility] in [place] Address [address] [place] [address] Care Team Providers Care Trimming Machine Set Up Operator Name Role Phone Jeanine Erickson RN Primary Care Provider Josiah Zabala [phone] REASON FOR VISIT 6 week f/u Encounters Encounter Location Date Provider Diagnosis [facility] (PODIATRY) [address] [place] [address] [place] [address] 04/07/2024 Josiah Sanon Plan Of Treatment No Information Progress Notes * Mandeep DUNNMoises:[birth year] (59 yo F)Acc No.[id number]:04/07/2024 UNLOCKED PROGRESS NOTE Follow Up Patient: Nadeen ADAMS :?Josiah Sanon DPM, MSDOB:1965???Age: 58 Y???Sex:FemaleDate:4Phone:[phone]:[facility], [facility]AREUD-[id number]:DOMINICK Gonzalez Subjective: * Chief Complaints: * 1 . 6 week f/u. * Medical History: Objective: * Vitals: Assessment: Plan: * Treatment: * * Electronic signature of Josiah Sanon DPM on 04/23/2025 at 01:23 PM ESTSign off status: PendingVisit Status:?CANC (Cancelled) * Provider: Silvio Sanon DPM, [place] Date: 1 06/07/2023 Generated for Printing/Faxing/eTransmitting on:?04/23/2025 01:23 PM EST
--- OUTSIDE RECORDS SUMMARY | 2024-10-06 03:45 | XMS_ITS ---
Author Organization The [facility] in [place] Address [address] [place] [address] Care Team Providers Care Orbitread Operator Name Role Phone Jeanine Erickson RN Primary Care Provider Josiah Zabala [phone] REASON FOR VISIT 4 month f/u Encounters Encounter Location Date Provider Diagnosis [facility] (PODIATRY) [address] [place] [address] [place] [address] 10/06/2024 Josiah Sanon Plan Of Treatment No Information Progress Notes * Mandeep DUNNMoises:[birth year] (59 yo F)Acc No.[id number]:10/06/2024 UNLOCKED PROGRESS NOTE Follow Up Patient: Nadeen ADAMS :?Josiah Sanon DPM, MSDOB:1965???Age: 59 Y???Sex:FemaleDate:10/06/2024Phone:[phone]:[facility], [id number]:DOMINICK Gonzalez Subjective: * Chief Complaints: * 1 . 4 month f/u. * Medical History: Objective: * Vitals: Assessment: Plan: * Treatment: * * Electronic signature of Josiah Sanon DPM on 04/23/2025 at 01:23 PM ESTSign off status: PendingVisit Status:?OFF CANC (OFFICE CANCEL) * Provider: iSlvio Sanon DPM, MS Date: 0 10/06/2024 Generated for Printing/Faxing/eTransmitting on:?04/23/2025 01:23 PM EST
--- OUTSIDE RECORDS SUMMARY | 2025-04-12 10:25 | XMS_ITS | Encounter Summary ---
Author Organization [facility] Address [address], [address] [place] [address] Care Team Providers Care Manufacturing Production Technician Name Role Phone Jeanine Rao APRN, NP Primary Care Provider [phone] Reason for Referral * Imaging (Routine) - Not Required - RTASpecialtyDiagnoses / ProceduresReferred By ContactReferred To ContactRadiology Diagnoses Abnormal swallowing Procedures [place] UGI Jeanine Rao APRN - NP [address] [place] [address] Phone: tel: fax: Referral IDStatusReasonStart DateExpiration DateVisits RequestedVisits [id number] Required - RTA Reason for Visit * Imaging (Routine) - Not Required - RTASpecialtyDiagnoses / ProceduresReferred By ContactReferred To ContactRadiology Diagnoses Abnormal swallowing Procedures [place] UGI Jeanine Rao APRN - NP [address] [place] [address] Phone: tel: fax: Referral IDStatusReasonStart DateExpiration DateVisits RequestedVisits [id number] Required - RTA Encounter Details DateTypeDepartmentCare Team (Latest Contact Info)Bbrxsadkqgf30/10/2025 10:25 AM EST - 04/14/2025 11:59 PM ESTHospital Encounter [facility] [address] [place], [place] [phone] Abnormal swallowing Discharge Disposition: Home or Self Care Social History Tobacco UseTypesPacks/DayYears UsedDateSmoking Tobacco: NeverSmokeless Tobacco: NeverAlcohol UseStandard Drinks/WeekCommentsNo0 (1 standard drink = 0.6 oz pure alcohol)[facility] UtilitiesAnswerDate RecordedIn the past 12 months has the [place], gas, oil, or water Citizen[employer] threatened to shut off services in your home?No 12/15/2024PHQ-2AnswerDate RecordedPHQ-9 Total Icrpk1710/17/2025Hunger Vital Sign AnswerDate RecordedWithin the past 12 months, you worried that your food would run out before you got the money to buymore.Never true12/15/2024Within the past 12 months, the food you bought just didn't last and you didn't have money to get more.Never true12/15/2024PRAPARE - TransportationAnswerDate RecordedIn the past 12 months, has lack of transportation kept you from medical appointments or from getting medications?No12/15/2024In the past 12 months, has lack of transportation kept you from meetings, work, or from getting things needed for daily living?No12/15/2024Housing Stability Vital SignAnswerDate RecordedIn the last 12 months, was there a time when you were not able to pay the mortgage or rent on time?No12/15/2024In the past 12 months, how many times have you moved where you were living?t any time in the past 12 months, were you homeless or living in a fci (including now)?No12/15/2024Food Insecurity AnswerDate RecordedWithin the past 12 months, you worried that your food would run out before you got the money to buymore.Within the past 12 months, the food you bought just didn't last and you didn't have money to get more.CommentsNoSex and Gender InformationValueDate Recorded Sex Assigned at BirthNot on fileLegal EmaSkrmbd22/10/2013 2:03 PM ESTGender IdentityNot on fileSexual OrientationNot on filedocumented as of this encounter Medications at Time of Discharge MedicationSigDispense QuantityRefillsLast FilledStart DateEnd Date aspirin 81 MG EC tablet Take 1 tablet by mouth daily amLODIPine (NORVASC) 5 MG tablet Take 1 tablet by mouth every morning ARIPiprazole (ABILIFY) 5 MG tablet Take 1 tablet by mouth every [id number]/26/2024 Ascorbic Acid (VITAMIN C) 500 MG CAPS in the morning. [facility] ASPIRIN 325 MG tablet TAKE 1 TABLET BY MOUTH TWICE A DAY FOR 30 DAYS atorvastatin (LIPITOR) 10 MG tablet Take 1 tablet by mouth every morning Pt reports 1/2 tab daily03/25/2024 atorvastatin (LIPITOR) 10 MG tablet Take 1 tablet by mouth every morning bisoprolol (ZEBETA) 10 MG tablet Take 1 tablet by mouth every morning calcium carbonate (OYSTER SHELL CALCIUM 500 MG) 1250 (500 Ca) MG tablet Take 1 capsule by mouth daily chlorthalidone (HYGROTEN) 50 MG tablet JARDIANCE 25 MG tablet Take 1 tablet by mouth daily escitalopram (LEXAPRO) 10 MG tablet fluconazole (DIFLUCAN) 100 MG tablet Take 1 tablet by mouth daily02/28/2024 FREESTYLE LITE strip USE DIRECTED EVERY DAY FreeStyle Lancets MISC USE DIRECTED EVERY DAY02/16/2024 meloxicam (MOBIC) 15 MG tablet Take 1 tablet by mouth every morning losartan (COZAAR) 50 MG tablet Take 0.5 tablets by mouth daily01/22/2024 losartan (COZAAR) 100 MG tablet Take 1 tablet by mouth daily05/28/2023 OZEMPIC, 1 MG/DOSE, 4 MG/3ML SOPN sc injection Inject 1 mg into the skin once a week 2 units weekly will be switching to fdpwhubz69/03/2024 zinc gluconate 50 MG tablet Take 1 tablet by mouth daily traZODone (DESYREL) 150 MG tablet Take 1 tablet by mouth nightly LORazepam (ATIVAN) 1 MG tablet Take 1 tablet by mouth nightly as needed for Anxiety. ALPRAZolam (XANAX) 0.25 MG tablet Take 1 tablet by mouth as needed in the morning and 1 tablet as needed in the evening for Sleep. DULoxetine (CYMBALTA) 60 MG extended release capsule Take 1 capsule by mouth daily metFORMIN (GLUCOPHAGE) 500 MG tablet Take 1 tablet by mouth 2 times daily (with meals) Take two tablets by mouth two times daily levothyroxine (SYNTHROID) 88 MCG tablet Take 1 tablet by mouth daily therapeutic multivitamin-minerals (THERAGRAN-M) tablet Take 1 tablet by mouth daily b complex vitamins capsule Take 1 capsule by mouth daily Calcium Carbonate-Vitamin D (CALCIUM + D PO) Take 1 tablet by mouth dailydocumented as of this encounter Plan of Treatment DateTypeDepartmentCare Team (Latest Contact Info)Ktcfudiwhda62/24/2025 1:00 PM ESTAppointment [facility] [address] [place], [place] [phone] Radiologist, [facility] Gen media/ pt call dept -[place] with date and time of ibgexaabhn34/26/2026 2:15 PM ESTOffice Visit [facility] Part of [address] [place] [phone] Victoria Chiang DO [address] [place] [address] [address] [place] [phone] yearly/repeat pap08/02/2025 9:00 AM ESTOffice Visit [facility] Part of [address] [phone] Linda Ayala MD [address] [place] [address] [place] [phone] Establish caredocumented as of this encounter Procedures Procedure NamePriorityDate/TimeAssociated DiagnosisCommentsFL UGIRoutine 04/12/2025 10:54 AM EST Abnormal swallowing documented in this encounter Results * FL UGI (04/12/2025 10:54 AM EST)Anatomical RegionLateralityModalityAbdomen, ChestComputed RadiographySpecimen (Source)Anatomical Location / Laterality Collection Method / VolumeCollection TimeReceived Time04/12/2025 11:19 AM EST Impressions 04/12/2025 11:20 AM EST Normal exam Narrative 04/12/2025 11:20 AM EST EXAMINATION: SINGLE CONTRAST UPPER GI SERIES 04/12/2025 HISTORY: ORDERING SYSTEM PROVIDED HISTORY: Abnormal swallowing COMPARISON: None. TECHNIQUE: Multiple single contrast images of the esophagus, gastroesophageal junction and stomach were obtained following the oral administration of water soluble contrast FLUOROSCOPY DOSE AND TYPE: Radiation Exposure Index: Kerma mGy, FINDINGS: Barium and effervescent crystals were administered to the patient well-tolerated. ??Distal esophagus is well distended with smooth contours and unremarkable mucosal pattern. ??No gastroesophageal reflux or significant hiatal hernia. ??Stomach is normal size and shape. ??Gastric rugal pattern unremarkable. ??Barium flows the pylorus into normal appearing duodenal bulb and sweep. Procedure Note Donta Melendez, DO - 04/12/2025 EXAMINATION: SINGLE CONTRAST UPPER GI SERIES 04/12/2025 HISTORY: ORDERING SYSTEM PROVIDED HISTORY: Abnormal swallowing COMPARISON: None. TECHNIQUE: Multiple single contrast images of the esophagus, gastroesophagealjunction and stomach were obtained following the oral administration of watersoluble contrast FLUOROSCOPY DOSE AND TYPE: Radiation Exposure Index: Kerma mGy, FINDINGS: Barium and effervescent crystals were administered to the patient well-tolerated. Distal esophagus is well distended with smooth contoursand unremarkable mucosal pattern. No gastroesophageal reflux or significant hiatal hernia. Stomach is normal size and shape. Gastric rugal pattern unremarkable. Barium flows the pylorus into normal appearing duodenalbulb and sweep. IMPRESSION: Normal exam Authorizing ProviderResult TypeResult StatusGerdenise Rao SECURITY INSTALLATION TECHNICIAN - NPIMG FLUOROSCOPY ORDERABLESFinal Result documented in this encounter Visit Diagnoses Diagnosis Abnormal swallowing documented in this encounter Administered Medications Medication OrderMAR ActionAction DateDoseRateSite barium sulfate 60 % suspension 355 mL 355 mL, Oral, IMG ONCE PRN, 1 dose, Starting on Sat04/12/25 at 1054, Until Sat04/12/25 at 1055, Other Given04/12/2025 10:55 AM [id number] mLsdocumented in this encounter Care Teams Team MemberRelationshipSpecialtyStart DateEnd Date Jeanine Rao, SECURITY INSTALLATION TECHNICIAN - MOTORCYCLE RIDING INSTRUCTOR [address] [place], [place] [phone] [facility] - Ebfsdoz13/14/16documented as of this encounter
--- OUTSIDE RECORDS SUMMARY | 2025-04-23 13:23 | XMS_ITS | Patient Health Record ---
Author Organization [facility] in [place] Address [address] [place] [address] Care Team Providers Care Ornamental Metal Worker Name Role Phone Jeanine Erickson RN Primary Care Provider Ana Zabala Unavailable [phone] Jade Alvarez Unavailable [phone] Allergies Allergen (clinical drug ingredient) Drug/Non Drug Allergy documented on EMR Reaction Allergy Type Onset Date Status lisinopril Lisinopril Unknown Drug Allergy ActiveShellfish (FN)Shellfish-derived ProductshivesDrug AllergyActive Results Component Value Reference Range Notes XR foot RT min 3V (Not yet r eviewed by provider) Interpretation: Performing Lab: Notes/Report: Source Facility: [place] [address] [address] [place] [id number] XRay Report Signed Patient: AISHWARYA DUNN MR#: [id number] : 1965 Acct:[id number] Age/Sex: 58 / F ADM Date: 05/07/24 Loc: RAD Attending Dr: Jade Alvarez Ordering Physician: Jade Alvarez Date of Service: 05/07/24 Procedure(s): XR foot RT min 3V Accession Number(s): [id number] cc: Jade Alvarez; Jeanine Rao NP [place] [id number] Patient Name: AISHWARYA DUNN MRN: [facility]:[id number] date: 1965 Sex: F Assigned Patient Location: [facility] Current Patient Location: Accession/Order Number: [id number] Exam Date: 05/07/2024 13:19 Report Date: 05/08/2024 05:53 At the request of: JADE ALVAREZ Procedure: XR foot RT min 3V PROCEDURE: XR foot RT min 3V HISTORY: RIGHT FOOT PAIN COMPARISON: XR foot right 04/07/2024 FINDINGS: BONES:Mechanical fusion the first metatarsophalangeal joint via dorsal plate and screws. No hardware fracture loosening. No bone fracture dislocation. Mild degenerative changes the midfoot. Degenerative enthesopathic spurring of the calcaneus. SOFT TISSUES:Mild dorsal soft tissue swelling. Cast material has been removed. EFFUSION:None visible. OTHER: Negative. XR/XR foot RT min 3V IMPRESSION: 1. Stable surgical changes without of hardware failure or change in alignment. 2. Stable mild-moderate degenerative changes. Electronically authenticated by: RYLAND SMITH Date: 05/08/2024 05:53 Dictated By: Ryland Smith M.D. Signed By: 05/08/24 0555 DD/ 0553 TD/TT: Change Management Specialist: XR foot SESAR min 3V (Not yet reviewed by provider) Interpretation: Performing Lab: Notes/Report: Source Facility: [place] [address] [place] [address] XRay Report Signed Patient: AISHWARYA DUNN MR#: [id number] : 1965 Acct:[id number] Age/Sex: 58 / F ADM Date: 05/21/24 Loc: EC Attending Dr: Jade Alvarez Ordering Physician: Jade Alvarez Date of Service: 05/21/24 Procedure(s): XR foot SESAR min 3V Accession Number(s): [id number] cc: Jade Alvarez; Jeanine Rao NP [place] [address] Patient Name: AISHWARYA DUNN MRN: [facility]:[id number] date: 1965 Sex: F Assigned Patient Location: Current Patient Location: Accession/Order Number: [id number] Exam Date: 05/21/2024 13:30 Report Date: 05/21/2024 15:14 At the request of: JADE ANTONIO Procedure: XR foot SESAR min 3V EXAMINATION: XR foot SESAR min 3V HISTORY: BILATERAL FOOT PAIN COMPARISON: 12/10/2023 FINDINGS: RIGHT FINDINGS: BONES: First metatarsal-phalangeal joint fusion with no bony bridging. No acute fracture or dislocation. Mild degenerative changes with marginal osteophyte formation. Enthesopathic spurring of the calcaneus SOFT TISSUES: Negative. No visible soft tissue swelling. OTHER: Negative. LEFT FINDINGS: BONES: First metatarsal-phalangeal joint fusion with peripheral bony bridging. No acute fracture or dislocation. Mild degenerative changes with marginal osteophyte formation. Enthesopathic spurring of the calcaneus SOFT TISSUES: Negative. No visible soft tissue swelling. OTHER: Negative. XR/XR foot SESAR min 3V IMPRESSION: Bilateral first metatarsal-phalangeal joint fusion with no right and partial left bony bridging Electronically authenticated by: CRYSTAL SAM Date: 05/21/2024 15:14 Dictated By: Crystal Sam M.D. Signed By: 05/21/241515 DD/ 13 TD/TT: Change Management Specialist: XR foot RT min 3V (Not yet r eviewed by provider) Interpretation: Performing Lab: Notes/Report: Source Facility: [place] [address] [place] [address] XRay Report Signed Patient: AISHWARYA DUNN MR#: [id number] : 1965 Acct:[id number] Age/Sex: 58 / F ADM Date: 06/30/24 Loc: RAD Attending Dr: Ana Saonn D.P.M. Ordering Physician: Ana Sanon D.P.M. Date of Service: 06/30/24 Procedure(s): XR foot RT min 3V Accession Number(s): [id number] cc: Ana Sanon D.P.M.; Jeanine Rao NP [place] [address] Patient Name: AISHWARYA DUNN MRN: [facility]:[id number] date: 1965 Sex: F Assigned Patient Location: [facility] Current Patient Location: [facility] Accession/Order Number: [id number] Exam Date: 06/30/2024 08:20 Report Date: 06/30/2024 10:27 At the request of: ANA SANON Procedure: XR foot RT min 3V PROCEDURE: XR foot RT min 3V COMPARISON: 05/07/2024 HISTORY: Right Foot Pain FINDINGS: BONES:Stable fusion the first metatarsal-phalangeal joint with a dorsal plate and screws. No significant bony bridging is observed. Moderate degenerative changes of the midfoot with marginal osteophyte formation. Moderate Enthesopathic spurring of the calcaneus SOFT TISSUES:Negative. No visible soft tissue swelling. EFFUSION:None visible. OTHER: Negative. XR/XR foot RT min 3V IMPRESSION: Stable first metatarsal phalangeal joint fusion with no significant bony bridging Electronically authenticated by: CRYSTAL SAM Date: 06/30/2024 10:27 Dictated By: Crystal Sam M.D. Signed By: 06/30/24 1030 DD/ 1027 TD/TT: Change Management Specialist: XR foot RT min 3V (Not yet r eviewed by provider) Interpretation: Performing Lab: Notes/Report: Source Facility: [place] [address] XRay Report Signed Patient: AISHWARYA DUNN MR#: [id number] : 1965 Acct:[id number] Age/Sex: 59 / F ADM Date: 10/06/24 Loc: RAD Attending Dr: Ana Sanon D.P.M. Ordering Physician: Ana Sanon D.P.M. Date of Service: 10/06/24 Procedure(s): XR foot RT min 3V Accession Number(s): [id number] cc: Ana Sanon D.P.M.; Jeanine Rao NP The [address] [address] Patient Name: AISHWARYA DUNN MRN: [id number] date: 1965 Sex: F Assigned Patient Location: [facility] Current Patient Location: [facility] Accession/Order Number: [id number] Exam Date: 10/06/2024 10:51 Report Date: 10/06/2024 11:02 At the request of: ANA SANON DPOleg Procedure: XR foot RT min 3V RIGHT FOOT - 3 views CLINICAL HISTORY: Hallux Rigidus, Painful Hardware COMPARISON: Right foot series 06/30/2024 FINDINGS: There appears to be first MTP joint fusion with what appears to be a interval fracture involving the plate. There appears be periosteal reaction in the region of the first metatarsal head. Remaining digits appear unremarkable. XR/XR foot RT min 3V IMPRESSION: INTERVAL FRACTURE INVOLVING THE PLATE INVOLVING THE FIRST MTP JOINT FUSION Impression dictated by: Dudley Hollins Jr., D.O. 10/06/2024 11:02 AM Dictation Location: [place] [address] Electronically authenticated by: [id number] Y Date: 10/06/2024 11:02 Dictated By: Dudley Hollins M.D. Signed By: 10/06/24 1104 DD/ 1102 TD/TT: Change Management Specialist: XR Foot RT (3 views) * Reviewed date:06/01/2024 01:00:33 PM Interpretation: Performing Lab: Notes/Report: XR Foot RT (3 views) * Reviewed date:06/01/2024 01:20:32 PM Interpretation: Performing Lab: Notes/Report: Reason For Referral No Information Medications Medication SIG (Take, Route, Frequency, Duration) Notes Start Date End Date Status amLODIPine Besylate 5 MG 1 tablet Orally Once a day ActiveHYDROcodone-Acetaminophen 5-325 MG1 tablet as needed Orally every 6 hrs; Duration: 7 days04/16/2024UnknownAtorvastatin CalciumActiveHYDROcodone- Acetaminophen 5-325 MG1 tablet as needed Orally every 4 hrs; Duration: 7 days 04/07/2024UnknownBisoprolol Fumarate 10 MG1 tablet Orally Once a dayActive Meloxicam 15 MG1 tablet Orally Once a dayUnknownChlorthalidone 50 MG1 tablet in the morning with food OrallyActiveOndansetron HCl 4 MG 1 tablet Orally every 6 hours; Duration: 5 days As needed for nausea 01/16/2024UnknownEmpagliflozin 10 MG1 tablet Orally Once a dayActive Levothyroxine Sodium 100 MCG1 tablet in the morning on an empty stomach Orally Once a dayActiveLosartan Potassium 100 MG1 tablet Orally Once a dayActive metFORMIN HCl 500 MG1 tablet with a meal Orally Once a dayActiveMontelukast Sodium 10 MG1 tablet Orally Once a dayActiveAspirin 325 MG1 tablet Orally bid; Duration: 30 days04/07/2024UnknownCephalexin 500 MG1 capsule Orally tid; Duration: 7 days04/07/2024Unknown Social History Tobacco Use: Social History Observation Description Date Details (start date - stop date) Never Smoker NA - NA Tobacco Control (Standard) Question Answer Notes Tobacco use: Nonsmoker AUDIT-C (Standard) Question Answer Notes Did you have a drink containing alcohol in the p ast year? Yes How often did you have six or more drinks on one occasion in the past year?Less than monthly (1 point)How many drinks did you have on a typical day when you were drinking in the past year?1 or 2 drinks (0 point)How often did you have a drink containing alcohol in the past year?Monthly or less (1 point)Points2 InterpretationNegative Problems Problem Type SNOMED Code ICD Code Onset Dates Problem Status W/U Status Risk Notes Problem Hyperglycemia due to type 2 diabetes mellitus (233703281601624) Type 2 diabetes mellitus with hyperglycemia (E11.65) ActiveconfirmedProblemAcquired hallux valgus (68488481)Hallux valgus (acquired), right foot (M20.11)ActiveconfirmedProblemAcquired hallux valgus (01522780)Hallux valgus (acquired), left foot (M20.12)ActiveconfirmedProblemAcquired hallux rigidus (4086729)Hallux rigidus, right foot (M20.21)ActiveconfirmedProblem Acquired hallux rigidus (5777635)Hallux rigidus, left foot (M20.22)Active confirmedProblemAsthma (797216655)Asthma (J45.909)ActiveconfirmedProblemInsomnia (556347975)Insomnia (G47.00)ActiveconfirmedProblemPain in right foot (386906006018075)Right foot pain (M79.671)ActiveconfirmedProblemAcquired hypothyroidism (887850702)Acquired hypothyroidism (E03.9)ActiveconfirmedProblem Pain in left foot (635724955946249)Left foot pain (M79.672)Activeconfirmed ProblemDiabetes mellitus (18732262)Diabetes mellitus (E11.9)Activeconfirmed Vital Signs Heart Rate 78 /min 06/30/2024 Ldkttgmtogz73.0 degrees Jlhgzeyxby86/28/0906Luvikbww49 %06/30/20241606Jawxdb96 in 06/30/20240302Izojam482 lbs107/08/2023BMI38.97 kg/m205/07/2024 Encounters Encounter Location Date Provider Diagnosis [facility] (PODIATRY) [address] [place] [address] [place] [address] 06/30/2024 [facility] Right foot pain M79.671 and Hallux rigidus, right foot M20.21 [facility] (PODIATRY) [address] [place] [address] [place] [address] 05/07/2024 Jade Alvarez Hallux valgus (acquired), right foot M20.11 ; Other deformities of toe(s) (acquired), right foot M20.5X1 ; Hallux rigidus, right foot M20.21 ; Hallux valgus (acquired), left foot M20.12 and Right foot pain M79.671 [facility] (PODIATRY) [address] [place] [address] [place] [address] 05/21/2024 Jade Alvarez Hallux valgus (acquired), right foot M20.11 ; Hallux rigidus, right foot M20.21 ; Hallux valgus (acquired), left foot M20.12 ; Right foot pain M79.671 and Left foot pain M79.672 Assessments Encounter Date Diagnosis (ICD Code) Assessment Notes Treatment Notes Treatment Clinical Notes Section Notes 05/07/2024 Hallux valgus (acquired), right foot (ICD-10 - M20.11) The patient is 4 weeks status post right first MPJ fusion, DOS: 04/07/2024. She is doing well. No evidence of infection or DVT on examination. Sutures were removed without incident. X-rays were reviewed and are satisfactory. She may continue weightbearing as tolerated in the cam boot. RICE therapy and nltw-jtf-pseonab analgesia encouraged on an as-needed basis. Follow-up in 2 to 3 weeks, sooner if any issues arise. I would like weightbearing BILATERAL foot x-rays at follow-up. 05/07/2024Other deformities of toe(s) (acquired), right foot (ICD-10 - M20.5X1) 05/21/2024Hallux valgus (acquired), right foot (ICD-10 - M20.11) The patient is 6 weeks status post right first MPJ fusion, DOS: 04/07/2024. She is doing well. No evidence of infection or DVT on examination. Sutures were removed without incident. X-rays were reviewed and are satisfactory. She may Begin transitioning out of the cam boot and into normal shoes. She may drive while wearing normal shoes. RICE therapy and nlkg-gic-zmovtye analgesia encouraged on an as-needed basis. Follow-up in 6 weeks, sooner if any issues arise. I would like weightbearing Right foot x-rays at follow-up. 05/21/2024Hallux rigidus, right foot (ICD-10 - M20.21)06/30/2024Right foot pain (ICD-10 - M79.671)06/30/2024Hallux rigidus, right foot (ICD-10 - M20.21)Patient is nearly 3 months status post first MPJ fusion and is doing very well. Oblique projection on x-rays demonstrate interval bone healing however on the AP there is some gap remaining on the medial aspect. Clinically she is doing very well and is stable. She may continue weightbearing as tolerated in normal shoes. If she has any symptoms of pain or increase in swelling she is to call to follow-up otherwise we will follow-up in 2 to 3 months with weightbearing foot x-rays. 05/21/2024Hallux valgus (acquired), left foot (ICD-10 - M20.12)Left first MPJ is clinically and radiographically fused.05/07/2024Hallux rigidus, right foot (ICD- 10 - M20.21)05/07/2024Hallux valgus (acquired), left foot (ICD-10 - M20.12)The patient underwent left first MPJ, DOS: 01/16/24. No range of motion from the first MPJ on examination. Will x-ray the left foot at her next appointment. 4Right foot pain (ICD-10 - M79.671)05/21/2024Left foot pain (ICD-10 - M79.672)05/07/2024ight foot pain (ICD-10 - M79.671) Plan Of Treatment Pending Test Test Name Order Date XR Foot LT (3 views) * 02/05/2024 XR Foot LT (3 views) * 02/26/2024 XR Foot LT (3 views) * 05/21/2024 XR Foot RT (3 views) * 06/30/2024 PROF CHEM 8 (BAS METB) 03/30/2024 XR foot LT min 3V 01/16/2024 XR foot RT min 3V 04/08/2024 XR foot RT min 3V 05/08/2024 XR foot RT min 3V 06/30/2024 XR foot RT min 3V 10/06/2024 XR foot SESAR min 3V 05/21/2024 FL fluoroscopy <1hr NON-READ 04/08/2024 Insurance Providers Payer Name Payer Address Payer Phone Subscriber Number Group Number Insured Name Patient Relationship to Insured Coverage Start Date Coverage End Date [employer] [facility] [address] [place] [phone] [id number] Aishwarya Dunn Self - patient is the insured Medical (General) History Medical History History ICD Code asthma diabetesheart diseasehypertensionthyroidSurgical History Surgery Date(Month/Year) right first metatarsal phalangeal joint fusion 04/07/2024 heart cath section tonsillectomy
--- OUTSIDE RECORDS SUMMARY | 2025-04-23 13:23 | XMS_ITS | Clinical Summary ---
Author Organization [facility] Address [address], [address] [place] [address] Care Team Providers Care Lead Network Architect Name Role Phone Jeanine Rao Liban CARVALHO - CURLY Primary Care Provider [phone] Allergies Active AllergyReactionsCriticalityNoted VhgvFzlxgxffUiryexh90/11/2013 Heart Cath dye LisinoprilCough,Other (See Comments)11/12/2022Shellfish Protein-Containing Drug Yhhijlww80/18/2013 Medications MedicationSigDispense QuantityRefillsLast FilledStart DateEnd DateStatus therapeutic multivitamin-minerals (THERAGRAN-M) tablet Take 1 tablet by mouth dailyActive b complex vitamins capsule Take 1 capsule by mouth dailyActive Calcium Carbonate-Vitamin D (CALCIUM + D PO) Take 1 tablet by mouth dailyActive DULoxetine (CYMBALTA) 60 MG extended release capsule Take 1 capsule by mouth dailyActive metFORMIN (GLUCOPHAGE) 500 MG tablet Take 1 tablet by mouth 2 times daily (with meals) Take two tablets by mouth two times dailyActive levothyroxine (SYNTHROID) 88 MCG tablet Take 1 tablet by mouth dailyActive traZODone (DESYREL) 150 MG tablet Take 1 tablet by mouth nightlyActive LORazepam (ATIVAN) 1 MG tablet Take 1 tablet by mouth nightly as needed for Anxiety.Active ALPRAZolam (XANAX) 0.25 MG tablet Take 1 tablet by mouth as needed in the morning and 1 tablet as needed in the evening for Sleep.Active amLODIPine (NORVASC) 5 MG tablet Take 1 tablet by mouth every morningActive ARIPiprazole (ABILIFY) 5 MG tablet Take 1 tablet by mouth every thoaqfc3302/26/2024ctive Ascorbic Acid (VITAMIN C) 500 MG CAPS in the morning.Active [facility] ASPIRIN 325 MG tablet TAKE 1 TABLET BY MOUTH TWICE A DAY FOR 30 DAYSActive atorvastatin (LIPITOR) 10 MG tablet Take 1 tablet by mouth every morning Pt reports 1/2 tab daily03/25/2024ctive atorvastatin (LIPITOR) 10 MG tablet Take 1 tablet by mouth every morningActive bisoprolol (ZEBETA) 10 MG tablet Take 1 tablet by mouth every morningActive calcium carbonate (OYSTER SHELL CALCIUM 500 MG) 1250 (500 Ca) MG tablet Take 1 capsule by mouth dailyActive chlorthalidone (HYGROTEN) 50 MG tablet Active JARDIANCE 25 MG tablet Take 1 tablet by mouth dailyActive escitalopram (LEXAPRO) 10 MG tablet Active fluconazole (DIFLUCAN) 100 MG tablet Take 1 tablet by mouth daily02/28/2024ctive FREESTYLE LITE strip USE DIRECTED EVERY DAYActive FreeStyle Lancets MISC USE DIRECTED EVERY DAY02/16/2024ctive meloxicam (MOBIC) 15 MG tablet Take 1 tablet by mouth every morningActive losartan (COZAAR) 50 MG tablet Take 0.5 tablets by mouth daily01/22/2024ctive losartan (COZAAR) 100 MG tablet Take 1 tablet by mouth daily05/28/2023ctive OZEMPIC, 1 MG/DOSE, 4 MG/3ML SOPN sc injection Inject 1 mg into the skin once a week 2 units weekly will be switching to uusllrqq59/03/2024ctive zinc gluconate 50 MG tablet Take 1 tablet by mouth dailyActive estradiol (ESTRACE VAGINAL) 0.1 MG/GM vaginal cream Place 1 g vaginally daily for 14 days Then twice weekly 42 g 5Active aspirin 81 MG EC tablet Take 1 tablet by mouth dailyActive Active Problems ProblemNoted DateDiagnosed DateAcquired lmspygybezozty21/09/2023cute post- traumatic stress mchyqtub02/09/4806Wgqaxla62/09/2023 Assessment & Plan (03/31/2025 12:09 PM EDT): Degenerative cervical disc11/09/2022Environmental and seasonal allergies 11/09/20227634Vhtkyyex32/09/2023Mild intermittent asthma without complication 11/09/2022 Assessment & Plan (03/31/2025 12:09 PM EDT): Obesity, erlfjblrvty72/09/2023anic disorder with zgkxdfuvscr70/09/2023ure sfgdmfposoprlhqxexop45/09/2023Type 2 diabetes mellitus without complication, without long-term current use of isduypl2511/09/2022 Assessment & Plan (03/31/2025 12:09 PM EDT): Chronic, at goal (stable), medication adherence emphasized and lifestyle modifications recommended Vitamin D ehytnyahim88/09/2023bnormal cardiovascular stress test07/21/2017Panic attack as reaction to sflajk2607/20/2017 Assessment & Plan (03/31/2025 12:09 PM EDT): Severe single current episode of major depressive disorder, without psychotic valpqran33/17/2018Hypertension Assessment & Plan (03/31/2025 12:09 PM EDT): Chronic, at goal (stable), continue current treatment plan, medication adherence emphasized, and lifestyle modifications recommended Diabetes mellitus Resolved Problems ProblemNoted DateDiagnosed DateResolved DateChest pain Encounters DateTypeDepartmentCare TljqRaeeoybcvjr33/13/2025Transcribe Orders [facility] [address] [place] [address] Jeanine Rao, CROP INSURANCE CLAIMS ADJUSTER - PICKLE WATER PUMP OPERATOR Dysphagia, pharyngoesophageal phase (Primary Dx)04/12/2025 10:25 AM EST - 04/14/2025 11:59 PM ESTHospital [facility]counter [facility] [address] [place] [address] Abnormal swallowing Discharge Disposition: Home or Self Care04/08/2025 1:00 PM EST - 04/08/2025 2:00 PM ESTSurgery [facility] [address] [place] [address] Ryland Wiggins MD Left heart cath / coronary znoiznftlid52/06/2025 12:03 PM EST - 04/08/2025 4:15 PM ESTHospital Encounter [facility] [address] [place] [address] Ryland Wiggins MD Abnormal cardiovascular stress test Discharge Disposition: Home or Self Care04/08/20257678Hiwiuk14/29/2025 11:00 AM EDT Office Visit [facility] Photonics Engineering Technologist [address] [place] [phone] Jose Chávez DO Preoperative cardiovascular examination (Primary Dx); Hypertension, unspecified type; Type 2 diabetes mellitus without complication, without long-term current use of insulin (HCC); Mild intermittent asthma without complication; Panic attack as reaction to stress; Airxtld5603/31/2025bstract [facility] Part of [address] [phone] Lyssa Mcdaniel MA 03/30/2025Transcribe Orders [facility] Pre Access [address] [place] [address] Jeanine Rao, CROP INSURANCE CLAIMS ADJUSTER - PICKLE WATER PUMP OPERATOR Abnormal swallowing (Primary Dx)03/29/2025Orders Only [facility] [address] [place] [address] Jeanine Rao, CROP INSURANCE CLAIMS ADJUSTER - PICKLE WATER PUMP OPERATOR 03/29/2025bstract [facility] Photonics Engineering Technologist [address] [place] [address] Jose Chávez DO 03/15/2025 1:07 PM EDT - 03/17/2025 11:59 PM EDTHospital Encounter [facility] [address] [place] [address] Discharge Disposition: Home or Self Care03/15/2025 12:30 PM EDT - 03/17/2025 11:59 PM EDTHospital Encounter [address] [address] Discharge Disposition: Home or Self Care03/12/2025 10:20 AM EDT - 03/14/2025 11:59 PM EDTHospital Encounter [address] [address] Discharge Disposition: Home or Self Care03/12/2025 9:51 AM EDT - 03/14/2025 11:59 PM EDTHospital Encounter [facility] [address] [phone] Abnormal EKG Discharge Disposition: Home or Self Care03/02/2025Orders Only [facility] Photonics Engineering Technologist [address] [place] [place] [phone] Jose Chávez DO Primary hypertension (Primary Dx)03/02/2025bstract [facility] Photonics Engineering Technologist [address] [place] [place] [phone] Jose Chávez DO 02/22/2025Transcribe Orders [facility] Pre [facility] [address] [place], [place] [phone] Jeanine Rao, CROP INSURANCE CLAIMS ADJUSTER - PICKLE WATER PUMP OPERATOR Abnormal electrocardiography (Primary Dx)from Last 3 Months Immunizations ImmunizationAdministration DatesNext DueInfluenza Virus Mbetmud3903/10/2021, 03/04/2020,04/03/2017Influenza, FLUARIX, FLULAVAL, FLUZONE (age 6 mo+) and AFLURIA, (age 3 y+), Quadv PF, 0.5mL05/10/2023,2Pneumococcal, PCV-13, PREVNAR 13, (age 6w+), IM, 0.5mL05/06/2018TDaP, ADACEL (age 10y-64y), BOOSTRIX (age 10y+), IM, 0.5mL02/13/2017,12/29/2009Zoster Recombinant (Shingrix) 06/09/2021,03/10/2021 Family History Medical HistoryRelationNameCommentsDiabetesBrotherCancerFatheresophagealHeart DiseaseMaternal GrandfatherAlzheimer's DiseaseMaternal GrandmotherHeart Disease Maternal GrandmotherHigh Blood PressureMaternal GrandmotherDiabetesMotherHeart DiseaseMotherHeart DiseasePaternal GrandfatherStrokePaternal GrandfatherHeart DiseasePaternal GrandmotherDiabetesSisterRelationNameStatusCommentsBrotherAlive FatherDeceasedMaternal GrandfatherMaternal GrandmotherMotherDeceasedPaternal GrandfatherPaternal GrandmotherSisterAlive Social History Tobacco UseTypesPacks/DayYears UsedDateSmoking Tobacco: NeverSmokeless Tobacco: Never Tobacco Cessation:Counseling Given: Not Answered Alcohol UseStandard Drinks/WeekCommentsNo0 (1 standard drink = 0.6 oz pure alcohol)[facility] UtilitiesAnswerDate RecordedIn the past 12 months has the electric, gas, oil, or water company threatened to shut off services in your home?No 12/15/2024PHQ-2AnswerDate RecordedPHQ-9 Total Yylhs7763/17/2025Hunger Vital Sign AnswerDate RecordedWithin the past 12 [...] were you homeless or living in a senior care (including now)?No12/15/2024Food Insecurity AnswerDate RecordedWithin the past 12 months, you worried that your food would run out before you got the money to buymore.Within the past 12 months, the food you bought just didn't last and you didn't have money to get more.CommentsNoSex and Gender InformationValueDate Recorded Sex Assigned at BirthNot on fileLegal VshKjsyxo89/10/2013 2:03 PM ESTGender IdentityNot on fileSexual OrientationNot on file Last Filed Vital Signs Vital SignReadingTime TakenCommentsBlood Cggixaca089/6104/08/2025 4:00 PM EST Gzfie679704/08/2025 4:00 PM WDHDoofpjkrwaf88.9 ??C (96.7 ??F)04/08/2025 2:00 PM ESTRespiratory Nnvm931404/08/2025 4:00 PM ESTOxygen Dwsbwtxfxn01%04/08/2025 4:00 PM ESTInhaled Oxygen Concentration--Nzzogy33.8 kg (220 lb)04/08/2025 12:20 PM PYXMphnrt754 cm (5' 3 )04/08/2025 12:20 PM ESTBody Mass Index38.9704/08/2025 12:20 PM EST Plan of Treatment DateTypeDepartmentCare Team (Latest Contact Info)Fepnzjrnfqp18/24/2025 1:00 PM ESTAppointment [facility] [address] [place], [place] [phone] Radiologist, [facility] Gen media/ pt call dept -Cadance with date and time of diwdkqxyli70/26/2026 2:15 PM ESTOffice Visit [facility] Part of [address] [place], [place] [phone] Victoria Chiang, [address] [place] [address] [address] [place], [place] [phone] yearly/repeat pap08/02/2025 9:00 AM ESTOffice Visit [facility] Part of [address] [phone] Linda Ayala MD [address] [place] [address] [facility] [place] [address] Establish careHealth MaintenanceDue DateLast DoneCommentsDiabetic foot exam 1977HIV uhopbo7507/25/1982Diabetic retinal exam1985Hepatitis C screen 1985Hepatitis B vaccine (1 of 3 - 19+ 3-dose series)1986FIT/FOBT: Average risk2012Fecal-DNA (Cologuard): Average risk2012 Sigmoidoscopy/CT jywfapsxzvpx77/22/2013Pneumococcal 50+ years Vaccine (2 of 2 - PPSV23, PCV20, or PCV21)A1C test (Diabetic or Prediabetic) , 06/15/2011Diabetic Alb to Cr ratio (uACR) test12/20/2023 12/19/2022FR test (Diabetes, CKD 3-4, OR last GFR 15-59), 07/23/2017, 07/21/2017, Additional history rhtxzxAxjxbo57, 07/20/2017COVID-19 Vaccine ( season)2025Depression Monitoring , 06/19/2024reast cancer kkevaa20, 06/12/2024, 05/24/2023, Additional history existsDTaP/Tdap/Td vaccine (3 - Td or Tdap)/, 12/29/2009Pap smear, 05/31/2023, 05/30/20220686Ihlmibyeupv82Colorectal Cancer Pjeqhp0601/24/2028 Cervical cancer vajgxr9106/19/2029HPV (without or with Pap) Pneumococcal 0-49 years XxxbtssHwhussamjghh17/04/2018Shingles vaccineCompleted 06/09/2021, 03/10/2021Flu rhemtmyMhinsqoxj71/21/2025, 03/06/2024, 05/10/2023, Additional history existsHepatitis A vaccineAged OutNo longer eligible based on patient's age to complete this topicHib vaccineAged OutNo longer eligible based on patient's age to complete this topicMeningococcal (ACWY) vaccineAged OutNo longer eligible based on patient's age to complete this topicMeningococcal B vaccineAged OutNo longer eligible based on patient's age to complete this topic Polio vaccineAged OutNo longer eligible based on patient's age to complete this topic Procedures Procedure NamePriorityDate/TimeAssociated DiagnosisCommentsFL UGIRoutine 04/12/2025 10:54 AM EST Abnormal swallowing LEFT HEART CATH / CORONARY DJJAKHQIMTYPtiiywv82/06/2025 1:53 PM EST Abnormal cardiovascular stress test NM LEXISCAN STRESS TEST W/ MYOCARDIAL RJLTQPMOXMjkmyun20/13/2025 2:15 PM EDT Abnormal EKG HUMAN PAPILLOMAVIRUS (HPV) DNA PROBE THIN PREP HIGH ZVYNLkarfgh02/17/2025 12:00 AM EST UNIT AIDE RIQQBAIEUxxidgn71/17/2025 12:00 AM EST FRANSICO SCREENING OFTLACBMUBxsrrys46/10/2025 9:42 AM EST COMPREHENSIVE METABOLIC BKCNXAigbrbl94/19/2023 12:37 PM EDT LIPID VZUHWRczhnrp22/19/2023 12:37 PM EDT MICROALBUMIN, OKCrwcbyz42/19/2023 12:37 PM EDT HEMOGLOBIN W9NQsieiym46/19/2023 12:37 PM EDT from Last 3 Months or Most Recently Relevant to Health Maintenance Results * FL UGI (04/12/2025 10:54 AM [...] sweep. IMPRESSION: Normal exam Authorizing ProviderResult TypeResult StatusGerri L Jalen CROP INSURANCE CLAIMS ADJUSTER - NPIMG FLUOROSCOPY ORDERABLESFinal Result * LEFT HEART CATH / CORONARY ANGIOGRAPHY (04/08/2025 1:53 PM EST)ComponentValue Ref RangeTest MethodAnalysis TimePerformed AtPathologist SignatureBody Surface Area2.87n0HBXJ CV CPACS HEMOAnatomical RegionLateralityModalityX-Ray AngiographySpecimen (Source)Anatomical Location / LateralityCollection Method / VolumeCollection TimeReceived Time Narrative 04/08/2025 2:21 PM EST - Coronary Angiography Brief Post Operative Note: No significant coronary artery disease. Normal left ventricular end diastolic pressure (LVEDP). ??Continue standard risk factor modification as clinically indicated and consider alternative etiologies of the patients symptoms. Coronary Findings Diagnostic Dominance: Right Left Main: The vessel was visualized by angiography. Size of vessel >=2.0 mm. The vessel is angiographically normal. Left Anterior Descending: The vessel was visualized by angiography. Size of vessel >=2.0 mm. Thevessel is angiographically normal. Left Circumflex: The vessel was visualized by angiography. Size of vessel >=2.0 mm. The vessel is angiographically normal. Right Coronary Artery: The vessel was visualized by angiography. Size of vessel >=2.0 mm. The vessel is angiographically normal. Intervention No interventions have been documented. Bleeding Risk Calculator Bleeding Risk points = 0. Authorizing ProviderResult TypeResult StatusMichael Amalfitano DOCV CARDIAC CATH ORDERABLESFinal Result * NM LEXISCAN STRESS TEST W/ MYOCARDIAL PERFUSION (03/15/2025 2:15 PM EDT) ComponentValueRef RangeTest MethodAnalysis TimePerformed AtPathologist SignatureStress Target JJ223vyaOCVU CV RPACS STRESSBaseline Systolic CG213ptYg BSMH CV RPACS STRESSBaseline Diastolic ER96cuQeGMCM CV RPACS STRESSStress Systolic JG022tdKoJPQK CV RPACS STRESSStress Diastolic ES27jrOfXFPQ CV RPACS STRESSBaseline GI41RPIQMLG CV RPACS STRESSStress Peak TE371WMIPWUB CV RPACS STRESSStress Estimated Workload6.1METSBSMH CV RPACS STRESSStress Rate Pressure Rjkbrng81,762BPM*mmHgBSMH CV RPACS STRESSStress Percent HR Ogxmsozf36%BSMH CV RPACS STRESSExercise Duration Geuf7ttmHQCC CV RPACS STRESSExercise Duration Ywryman90gwkQQAR CV RPACS STRESSNuc Stress EF69%BSMH CV RPACS STRESSStress ST Depression1.5mmBSMH CV RPACS STRESSAnatomical RegionLateralityModalityCardiac DiagnosticSpecimen (Source)Anatomical Location / LateralityCollection Method / VolumeCollection TimeReceived Time03/12/2025 10:11 AM EDT Narrative 03/15/2025 5:02 PM EDT Stress Function: Left ventricular function post-stress is normal. Post-stress ejection fraction is 69%. The stress end diastolic cavity size is normal. ?Perfusion??Defect: There is a mild severity left ventricular stress perfusion defect that is small to medium in size present in the inferolateral and anterolateral segment(s). This defect was visualized during the stress phase of imaging. The defect appears to be probable ischemia. The possibility of artifact cannot be excluded. ?Perfusion??Conclusion: There is no evidence of transient ischemic dilation (TID). ?ECG: Resting ECG demonstrates normal sinus rhythm. ?Stress??Test: A Nitish protocol stress test was performed. In addition to exercise, regadenoson (Lexiscan) was also administered. The patient reached stage 2 of the protocol and was stressed for 4 min and 17 sec. Blood pressure demonstrated a normal response and heart rate demonstrated a normal response to stress. The patient's heart rate recovery was normal. ?Image quality is good. ?Stress??ECG: Arrhythmias during stress: rare PVCs. 1.[address] depression in the inferior and inferolateral leads (II, III, aVF, V5 and V6) was noted. Arrhythmias during recovery: occasional PVCs. Overall, these results are most consistent with a intermediate risk for cardiac events. Depending on the patient symptoms and level of clinical suspicion, aggressive medical management vs. additional testing by coronary angiography may be indicated. The sensitivity for detecting ischemia on this test may have been reduced due the patient being on a calcium channel mario. Resting ECG The ECG shows sinus rhythm. Stress Findings A Nitish protocol stress test was performed. In addition to exercise, regadenoson (Lexiscan) was also administered. The patient reached stage 2 of the protocol and was stressed for 4 min and 17 sec. The patient reported dyspnea and fatigue during the stress test. The test was stopped because the patient experienced fatigue and dyspnea. The patient reached the end of the protocol. Blood pressure demonstrated a normal response and heart rate demonstrated a normal response to stress. The patient's heart rate recovery was normal. Stress ECG Arrhythmias during stress: rare PVCs. 1.[address] depression in the inferior and inferolateral leads (II, III, aVF, V5 and V6) was noted. Arrhythmias during recovery: occasional PVCs. Nuclear Study Quality Nuclear Cardiac SPECT gated stress then rest with tomographic imaging/tomography utilized for the myocardial perfusion procedure. Lexiscan was used as the stressing method and agent. (Lexiscan given via a 10 - 20 sec injection). Two day myocardial perfusion study (03/12/2025 and 03/15/2025). This Single Photon Emission Computer Tomography (SPECT) study utilized tomographic imaging/tomography for the tomographic myocardial perfusion imaging performed during this study. Overall image quality is good. Perfusion Defect There is a mild severity left ventricular stress perfusion defect that is small to medium in size present in the inferolateral and anterolateral segment(s). This defect was visualized during the stress phase of imaging. The defect appears to be probable ischemia. The possibility of artifact cannot be excluded. Perfusion Defect Conclusion There is no evidence of transient ischemic dilation (TID). Stress Function Comments Left ventricular function post-stress is normal. Post-stress ejection fraction is 69%. The stress end diastolic cavity size is normal. Authorizing ProviderResult TypeResult StatusGerri Liban Rao CROP INSURANCE CLAIMS ADJUSTER - NPCV STRESS ORDERABLESFinal Result * (ABNORMAL) Human papillomavirus (HPV) DNA probe thin prep high risk (06/19/2024 12:00 AM EST)ComponentValueRef RangeTest MethodAnalysis Time Performed AtPathologist SignatureSpecimen DescriptionCERVICAL MATERIAL 06/19/2024 12:00 AM ESTMERBULXHPV Sample.THIN PREP06/19/2024 12:00 AM ESTMERSpaceFace LABORATORIESHPV, Genotype 16DETECTED(A)Not Gwcgxncw78/17/2025 12:00 AM ESTMERSpaceFace LABORATORIESHPV, Genotype 18Not DetectedNot Detected 06/19/2024 12:00 AM ESTMERSpaceFace LABORATORIESHPV, High Risk OtherNot DetectedNot Qpdlkomt61/17/2025 12:00 AM ESTMERSpaceFace LABORATORIESHPV, Mipgtsipguvgpb29/17/2025 12:00 AM ESTMERSpaceFace LABORATORIESComment: This test amplifies and detects DNA of 14 high-risk HPV types associated with cervical cancer and its precursor lesions (HPV types 16,18, 31, 33, 35, 39, 45, 51, 52, 56, 58, 59, 66, and 68). ? Sensitivity may be affected by specimen collection methods, stage of infection, and the presence of interfering substances. Results should be interpreted in conjunction with other available laboratory and clinical data. A negative high-risk HPV result does not exclude the possibility of future cytologic HSIL or underlying CIN2-3 or cancer. ? This test is intended for medical purposes only and is not valid for the evaluation of suspected sexual abuse or for other forensic purposes. Specimen (Source)Anatomical Location / LateralityCollection Method / Volume Collection TimeReceived TimeCERVICAL ZSVTAOSN68/17/2025 Narrative Authorizing ProviderResult TypeResult StatusWequinn Contreras MDHEMATOLOGY ORDERABLESFinal ResultPerforming OrganizationAddressCity/State/ZIP CodePhone Number [facility] [address] [place] [address], [facility] [phone] [facility] [address] [place] [address], [facility] [phone] * UNIT AIDE Cytology (06/19/2024 12:00 AM EST)ComponentValueRef RangeTest Method Analysis TimePerformed AtPathologist SignatureCytology ReportPath Number: [id number] DIAGNOSIS Imaged ThinPrep Pap - Cervical (1 monolayer slide): Specimen Adequacy: ? Satisfactory for evaluation. ? - Endocervical/transformation zone component present. Descriptive Diagnosis: ? High-grade squamous intraepithelial lesion (HSIL). ?? Cytotech Screener: ??EY Electronically Signed Out ? Larry Stark M.D. rdd/06/30/2024 Procedure/Addendum HPV Procedure Report ? Date Ordered: ? 06/22/2024 ? Status: Signed Out ? Date Complete: ? 06/23/2024 ? By: System Interface ? Date Reported: ? 06/23/2024 ? Sample: ??HPV Type 16 ?Result: ?? DETECTED ?Ref Range: Not Detected Sample: ??HPV Type 18 ?Result: ?? Not Detected ?Ref Range: Not Detected Sample: ??Other High Risk HPV ?Result: ?? Not Detected ?Ref Range: Not Detected Sample: ??HPV Interp ?Result: ? Ref Range: This test amplifies and detects DNA of 14 high-risk HPV types associated with cervical cancer and its precursor lesions (HPV types 16,18, 31, 33, 35, 39, 45, 51, 52, 56, 58, 59, 66, and 68). ? Sensitivity may be affected by specimen collection methods, stage of infection, and the presence of interfering substances. Results should be interpreted in conjunction with other available laboratory and clinical data. A negative high-risk HPV result does not exclude the possibility of future cytologic HSIL or underlying CIN2-3 or cancer. ? This test is intended for medical purposes only and is not valid for the evaluation of suspected sexual abuse or for other forensic purposes. Performed at [address] [id number] ([phone] ?? 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 Your patient should be reminded to consult you immediately if she experiences any suspicious signs or symptoms, regardless of her Pap smear result. GYNECOLOGIC CYTOLOGY REPORT Patient Name: NADEEN AGUILA [facility] Rec: [id number] [facility] ??LABORATORIES CONSULTING PATHOLOGISTS [facility] ANATOMIC PATHOLOGY [address] [place] [address]. ??[place], [place] [address] [facility] LABSSpecimen (Source)Anatomical Location / LateralityCollection Method / VolumeCollection TimeReceived Time CERVICAL TFIRFCMT33/ 8:21 AM EST Narrative Authorizing ProviderResult TypeResult StatusDom Contreras MDPATHOLOGY/CYTOLOGY ORDERABLESFinal ResultPerforming OrganizationAddressCity/State/ZIP CodePhone Number [facility] [address] [place], [place] [address] [phone] [facility] * FRANSICO Screening Bilateral (06/12/2024 9:42 AM EST)Anatomical RegionLaterality ModalityBreastBilateralMammography Narrative Authorizing ProviderResult TypeResult StatusWequinn Contreras MDIMG MAMMOGRAPHY ORDERABLESEdited Result - Final * (ABNORMAL) Microalbumin, Ur (12/19/2022 12:37 PM EDT)ComponentValueRef Range Test MethodAnalysis TimePerformed AtPathologist SignatureAlbumin Tlfph640(H) <21 mg/L12/19/2022 12:37 PM EDTMERCY LABORATORIESCreatinine, Ur428.7(H)28.0 - 217.0 mg/dL12/19/2022 12:37 PM EDTMERCY LABORATORIESMicroalb/Smearer. Sompb910(H) <25 mcg/mg creat12/19/2022 12:37 PM EDTMERCY LABORATORIESSpecimen (Source) Anatomical Location / LateralityCollection Method / VolumeCollection Time Received Time12/19/2022 12:37 PM EDT12/19/2022 12:38 PM EDT Narrative Authorizing ProviderResult TypeResult Maxwell Silva APRN - NPURINE ORDERABLESFinal ResultPerforming OrganizationAddressCity/State/ZIP CodePhone Number [facility] [address] [place] [address], [facility] [phone] [facility] [address] [place] [address], [facility] [phone] * Hemoglobin A1C (12/19/2022 12:37 PM EDT)ComponentValueRef RangeTest Method Analysis TimePerformed AtPathologist SignatureHemoglobin A1C6.04.0 - 6.0 % 12/19/2022 12:37 PM EDTMERCY LABORATORIESEstimated Avg Atrmsce466bt/dL 12/19/2022 12:37 PM EDTMERCY LABORATORIESComment: The ADA and AACC recommend providing the estimated average glucose result to permit better patient understanding of their HBA1c result. Specimen (Source)Anatomical Location / LateralityCollection Method / Volume Collection TimeReceived Time12/19/2022 12:37 PM EDT12/19/2022 12:38 PM EDT Narrative Authorizing ProviderResult TypeResult Maxwell Silva CROP INSURANCE CLAIMS ADJUSTER - PICKLE WATER PUMP OPERATOR CHEMISTRY ORDERABLESFinal ResultPerforming OrganizationAddressCity/State/ZIP CodePhone Number [facility] [address] [place] [address], [facility] [phone] [facility] [address] [place] [address], [facility] [phone] * (ABNORMAL) Lipid Panel (12/19/2022 12:37 PM EDT)ComponentValueRef RangeTest MethodAnalysis TimePerformed AtPathologist VntwycxnmBawcasoednn495<200 mg/dL 12/19/2022 12:37 PM EDTMERCY LABORATORIESComment: Cholesterol Guidelines: <200 Desirable 200-240 ??Borderline >240 Undesirable HDL49>40 mg/dL12/19/2022 12:37 PM EDTMERCY LABORATORIESComment: HDL Guidelines: <40 Undesirable 40-59 ?Borderline >59 Desirable LDL Tvkghxhflyp305 - 130 mg/dL12/19/2022 12:37 PM EDTMERCY LABORATORIESComment: LDL Guidelines: <100 Desirable 100-129 ?? Near to/above Desirable 130-159 ?? Borderline >159 Undesirable Direct (measured) LDL and calculated LDL are not interchangeable tests. Chol/HDL Ratio2.3<507 12:37 PM EDTMERCY LABORATORIESComment: Vvdohqfmsfwec157(H)<150 mg/dL12/19/2022 12:37 PM EDTMERCY LABORATORIESComment: Triglyceride Guidelines: <150 Desirable 150-199 ??Borderline 200-499 ??High >499 Very high Based on AHA Guidelines for fasting triglyceride, March 2012. Specimen (Source)Anatomical Location / LateralityCollection Method / Volume Collection TimeReceived Time12/19/2022 12:37 PM EDT12/19/2022 12:38 PM EDT Narrative Authorizing ProviderResult TypeResult StatusCarmenza Silva CROP INSURANCE CLAIMS ADJUSTER - PICKLE WATER PUMP OPERATOR CHEMISTRY ORDERABLESFinal ResultPerforming OrganizationAddressCity/State/ZIP CodePhone Number [facility] [address] [place] [address], [facility] [phone] [facility] [place] [address], [facility] [phone] * (ABNORMAL) Comprehensive Metabolic Panel (12/19/2022 12:37 PM EDT)Component ValueRef RangeTest MethodAnalysis TimePerformed AtPathologist SignatureGlucose 137(H)70 - 99 mg/dL12/19/2022 12:37 PM [facility] LABBUN 166 - 20 mg/dL12/19/2022 12:37 PM [facility] Creatinine0.80.5 - 0.9 mg/dL12/19/2022 12:37 PM [facility] LABEst, Glom Filt Rate>60>60 mL/min/1.10c58012/19/2022 12:37 PM T [facility] LABComment: ? These results are not intended for use in patients <18 years of age. ? eGFR results are calculated without a race factor using the 2020 CKD-EPI equation. Careful clinical correlation is recommended, particularly when comparing to results calculated using previous equations. The CKD-EPI equation is less accurate in patients with extremes of muscle mass, extra-renal metabolism of creatine, excessive creatine ingestion, or following therapy that affects renal tubular secretion. BUN/Creatinine Jrqxj765 - 12:37 PM [facility] HEVWmrjova64.5(H)8.6 - 10.4 mg/dL12/19/2022 12:37 PM [facility] NLEGampnv340317 - 144 mmol/L12/19/2022 12:37 PM [facility] LABPotassium4.33.7 - 5.3 mmol/L12/19/2022 12:37 PM [facility] QVZRnxddgox75(L)98 - 107 mmol/L12/19/2022 12:37 PM [facility] FPBRA02606 - 31 mmol/L12/19/2022 12:37 PM [facility] LABAnion Vlp728 - 17 mmol/L12/19/2022 12:37 PM [facility] LABAlkaline Qmzytmdubel2927 - 104 U/L12/19/2022 12:37 PM [facility] RWFQMC69(H)5 - 33 U/L12/19/2022 12:37 PM [facility] RENPJK94<32 U/L12/19/2022 12:37 PM [facility] LABTotal Bilirubin1.7(H)0.3 - 1.2 mg/dL12/19/2022 12:37 PM [facility] LABTotal Protein8.26.4 - 8.3 g/dL12/19/2022 12:37 PM EDT [facility] LABAlbumin5.13.5 - 5.2 g/dL12/19/2022 12:37 PM EDT [facility] LABAlbumin/Globulin Ratio1.61.0 - 2.507 12:37 PM [facility] LABSpecimen (Source)Anatomical Location / LateralityCollection Method / VolumeCollection TimeReceived Time12/19/2022 12:37 PM EDT12/19/2022 12:38 PM EDT Narrative Authorizing ProviderResult TypeResult StatusCarmenza Silva CROP INSURANCE CLAIMS ADJUSTER - PICKLE WATER PUMP OPERATOR CHEMISTRY ORDERABLESFinal ResultPerforming OrganizationAddressCity/State/ZIP CodePhone Number [facility] [address] [phone] from Last 3 Months or Most Recently Relevant to Health Maintenance Insurance * Guarantor: Nadeen Aguila TypeRelation to PatientDate of BirthPhone Billing AddressPersonal/YqmmbtCtnl08/22/1966 [facility] [place] [address] Advance Directives * Full Code (Latest Code Status on File) Date ActivatedDate CxdbfwqimvoFftyhjug33/6/2025 1:56 PM04/08/2025 6:15 PM * Full Code Date ActivatedDate IvgpwnrizfjOelmfjzw13/6/2025 12:43 PM04/08/2025 1:56 PM * Full Code Date ActivatedDate InactivatedComments07/22/2017 1:14 PM2 9:48 PM * Full Code Date ActivatedDate InactivatedComments07/20/2017 6:15 AM07/22/2017 1:14 PM Care Teams Team MemberRelationshipSpecialtyStart DateEnd Date Jeanine Rao, CROP INSURANCE CLAIMS ADJUSTER - PICKLE WATER PUMP OPERATOR [address] [place], [place] [id number] PCP - Cmfkxpe03/14/16
--- OUTSIDE RECORDS SUMMARY | 2025-04-23 13:23 | XMS_ITS | Encounter Summary ---
Author Organization [facility] Address [address], [address] [place] [address] Care Team Providers Care Signal Intelligence Analyst Name Role Phone Jeanine Rao APRN, NP Primary Care Provider [phone] Reason for Referral * Imaging (Routine) - AuthorizedSpecialtyDiagnoses / ProceduresReferred By ContactReferred To ContactRadiology Diagnoses Dysphagia, pharyngoesophageal phase Procedures [place] MODIFIED BARIUM SWALLOW W VIDEO Jeanine Rao APRN - NP [address] [place] [address] Phone: tel: fax: Referral IDStatusReasonStart DateExpiration DateVisits RequestedVisits [id number] Encounter Details DateTypeDepartmentCare Team (Latest Contact Info)Mgbcxsaegck91/13/2025Transcribe Orders [facility] [address] [place] [phone] Jeanine Rao APRN - NP [address] [facility] [facility] [address] [place], [place] [phone] Dysphagia, pharyngoesophageal phase (Primary Dx) Social History Tobacco UseTypesPacks/DayYears UsedDateSmoking Tobacco: NeverSmokeless Tobacco: NeverAlcohol UseStandard Drinks/WeekCommentsNo0 (1 standard drink = 0.6 oz pure alcohol)[facility] UtilitiesAnswerDate RecordedIn the past 12 months has the electric, gas, oil, or water company threatened to shut off services in your home?No 12/15/2024PHQ-2AnswerDate RecordedPHQ-9 Total Fxmyr7193/17/2025Hunger Vital Sign AnswerDate RecordedWithin the past 12 [...] were you homeless or living in a halfway (including now)?No12/15/2024Food Insecurity AnswerDate RecordedWithin the past 12 months, you worried that your food would run out before you got the money to buymore.Within the past 12 months, the food you bought just didn't last and you didn't have money to get more.CommentsNoSex and Gender InformationValueDate Recorded Sex Assigned at BirthNot on fileLegal EjgZronpy94/10/2013 2:03 PM ESTGender IdentityNot on fileSexual OrientationNot on filedocumented as of this encounter Plan of Treatment DateTypeDepartmentCare Team (Latest Contact Info)Ihuyoyhdpkz92/24/2025 1:00 PM ESTAppointment [facility] [address] [phone] Radiologist, Mth Gen media/ pt call dept -[place]adance with date and time of lybdcbwdyi17/26/2026 2:15 PM ESTOffice Visit [facility] [address] [place], [place] [phone] Victoria Chiang DO [address] [place] [address] yearly/repeat pap08/02/2025 9:00 AM ESTOffice Visit [facility] of [facility] [address] [place] [address] Linda Ayala MD [address] [place] [address] Establish careNameTypePriorityAssociated DiagnosesOrder ScheduleFL MODIFIED BARIUM SWALLOW W VIDEOImagingRoutine Dysphagia, pharyngoesophageal phase Expected: 04/15/2025, Expires: 04/15/2026documented as of this encounter Visit Diagnoses Diagnosis Dysphagia, pharyngoesophageal phase- Primary documented in this encounter Care Teams Team MemberRelationshipSpecialtyStart DateEnd Date Jeanine Rao, MAIA - HIDE GRADER [address] [place] [phone] PCP - Tjrimsr41/14/16documented as of this encounter
--- OUTSIDE RECORDS SUMMARY | 2025-04-23 13:24 | XMS_ITS | Clinical Summary ---
Author Organization [facility] Address [address] [place] [address] Care Team Providers Care Director Energy Name Role Phone Indy Jose Whitehead DO Primary Care Provider [phone] Jeanine Rao DEFENSE ANALYST Unavailable Allergies Active AllergyReactionsCriticalityNoted NnepVzvkuzltJxbjzde66/11/2013 Heart Cath dye Iodinated Contrast YhwrkBlwjw58/12/2964HoulzodvnrFtzwd69/12/2023Shellfish Protein-Containing Drug Wxursvpk34/18/2013 Medications MedicationSigDispense QuantityRefillsLast FilledStart DateEnd DateStatus B Complex Vitamins (B COMPLEX 1 PO) Indications:Wellness examinationActive ALPRAZolam (Xanax) 0.25 MG tablet Indications:AnxietyTake 0.25 mg by mouth as needed at bedtime for anxietyActive Ascorbic Acid (Vitamin C) 500 MG capsule Indications:Wellness examination1 (one) time each day at the same timeActive DULoxetine (Cymbalta) [address] capsule Indications:Degenerative cervical discTake 60 mg by mouth DailyActive zinc gluconate 50 MG tablet Indications:Wellness examinationTake 50 mg by mouth DailyActive ARIPiprazole (Abilify) 5 MG tablet Take 5 mg by mouth Daily12/31/2022ctive therapeutic multivitamin-minerals (Theragran-M) tablet Take 1 tablet by mouth DailyActive glucose blood test strip Indications:Type 2 diabetes mellitus without complication, without long-term current use of insulin (HCC)Daily testing 100 each ctive Lancet Devices (Autolet) lancing device Indications:Type 2 diabetes mellitus without complication, without long-term current use of insulin (HCC)Daily testing 100 each 306/18/2024Active FreeStyle lancets 4Active montelukast (Singulair) 10 MG tablet Indications:Environmental and seasonal allergiesTAKE 1 TABLET IN THE MORNING 90 tablet 3104Active atorvastatin (Lipitor) 10 MG tablet Indications:Pure hypercholesterolemiaTAKE 1 TABLET IN THE MORNING 90 tablet 1104Active escitalopram (Lexapro) 10 MG tablet Take 10 mg by mouth Daily4Active meloxicam (Mobic) 15 MG tablet Indications:Degenerative cervical discTAKE 1 TABLET IN THE MORNING 90 tablet 5Active bisoprolol (Zebeta) 10 MG tablet Indications:Essential hypertensionTAKE 1 TABLET IN THE MORNING 90 tablet 5Active metFORMIN XR (Glucophage-XR) 500 MG 24 hr tablet Indications:Type 2 diabetes mellitus without complication, without long-term current use of insulin ([facility])TAKE 2 TABLETS EVERY MORNING AND 2 TABLETS BEFORE BEDTIME 360 tablet 5Active amLODIPine (Norvasc) 5 MG tablet Indications:Essential hypertensionTAKE 1 TABLET EVERY MORNING 90 tablet 5Active chlorthalidone (Hygroton) 50 MG tablet Indications:Essential hypertensionTAKE 1 TABLET EVERY MORNINGWITH FOOD 90 tablet 5Active Continuous Glucose Sensor (Dexcom G7 Sensor) [facility] Indications:Type 2 diabetes mellitus with hyperglycemia, with long-term current use of insulin ([facility])USE DIRECTED AND CHANGE EVERY 14 DAYS 2 each 1105Active Synthroid 100 MCG tablet Indications:Acquired hypothyroidismTAKE 1 TABLET IN THE MORNING BEFORE A MEAL 90 tablet 5Active alendronate (Fosamax) 70 MG tablet Take 70 mg by mouth every 7 (seven) days5Active estradiol (Estrace) 0.1 MG/GM vaginal cream PLACE 1 GRAM VAGINALLY DAILY FOR 14 DAYS THEN TWICE WEEKLYActive aspirin 81 MG EC tablet Take 81 mg by mouth DailyActive pioglitazone (Actos) 15 MG tablet Indications:Type 2 diabetes mellitus with hyperglycemia, without long-term current use of insulin ([facility])Take 1 tablet (15 mg) by mouth Daily 90 tablet [id number] Additional Information Patient taking differently:15 mg Oral Daily,(No times of day reported), Reported on 04/05/2025 Jardiance 25 MG Indications:Type 2 diabetes mellitus without complication, without long-term current use of insulin ([facility])TAKE 1 TABLET BY MOUTH EVERY DAY 30 tablet 1115Active Additional Information Patient taking differently:25 mg Oral Daily,(No times of day reported), Reported on 04/05/2025 Semaglutide, 2 MG/DOSE, (Ozempic, 2 MG/DOSE,) 8 MG/3ML solution pen-injector Indications:Type 2 diabetes mellitus with hyperglycemia, with long-term current use of insulin ([facility])Inject 2 mg under the skin 1 (one) time per week 3 mL 5Active losartan (Cozaar) 50 MG tablet Indications:Type 2 diabetes mellitus without complication, without long-term current use of insulin ([facility])TAKE 0.5 TABLETS BY MOUTH DAILY. 45 tablet 5Active losartan (Cozaar) 50 MG tablet Indications:Type 2 diabetes mellitus without complication, without long-term current use of insulin ([facility])TAKE 1 TABLET BY MOUTH EVERY DAY 90 tablet Discontinued Active Problems ProblemNoted DateDiagnosed DateHallux rigidus, left foot01/21/2024Hallux valgus (acquired), left foot01/21/2024Type 2 diabetes mellitus with hyperglycemia 01/21/2024cquired bfezgkxnidtqhn87/09/2023cute post-traumatic stress disorder 11/09/2022AD (generalized anxiety disorder)11/09/2022egenerative cervical disc 11/09/2022Environmental and seasonal yckqmxslu21/09/2023rimary hypertension 11/09/2022rimary miexvngs98/09/2023Mild intermittent asthma without uibvirqhqkfp28/09/2023Obesity, rwynvxbsbmt31/09/2023anic disorder with ddgvydtqqbx00/09/2023ure weymfuxkoefmbpiqcxis00/09/2023Type 2 diabetes mellitus without complication, without long-term current use of iksyrdk0411/09/2022Vitamin D xyesyordad31/09/2023Severe single current episode of major depressive disorder, without psychotic vqydfvkw33/17/2018 Resolved Problems ProblemNoted DateDiagnosed DateResolved DateDiabetes /16/2023 05/10/20232834Ldixacf95/09/202310/Panic attack as reaction to stress Encounters DateTypeDepartmentCare WflgZcxnqludcnr19/17/2025bstract [facility] [place] [address] [place] [address] Jeanine Rao, CURLY 04/15/2025Telephone [facility] [place] [address] [facility] [address] [facility] [place] [address] Jeanine Rao, CURLY my chart ?04/15/2025Telephone [facility] [address] [place] [address] Chelita Molina LPN Blood Sugar Zhkuely0504/14/2025Telephone [facility] [place] [address] [place] [address] Jeanine Rao NP Care Kkbnwcwrmaqu24/12/2025bstract [facility] [place] [address] [place] [address] Jeanine Rao NP 04/14/2025Orders Only [facility] [place] [address] [facility] [address] [place] [address] Amy Ng LPN 04/12/2025Telephone [facility] [place] [address] [facility] [address] [place] [address] Jeanine Rao, CURLY Fax order for swallow study04/12/2025Results Follow-Up [facility] [place] [address] [place] [address] Jeanine Rao NP FL UGI106/12/2024linisync Result Encounter [facility] External Department Unsolicited Jeanine Rao NP 04/07/2025 11:00 AM ESTClinical Support [facility] [place] [facility] [address] [place] [address] Douglas Spivey RN Type 2 diabetes mellitus with hyperglycemia, without long-term current use of insulin (HCC) (Primary Dx); Acquired yrfcdawqnlcddz26/05/2025amboo flowsheet [facility] Patient Education [address] [place] [address] Douglas Spivey RN 04/06/2025Refill [address] [place] [address] Jeanine Rao NP Type 2 diabetes mellitus without complication, without long-term current use of insulin (HCC)04/05/2025 9:50 AM ESTOffice Visit [facility] Dermatology [facility] [place] [address] Amalia Cheng PA Seborrheic keratosis (Primary Dx); Melanocytic nevus of trunk; Mario angioma; Inflamed seborrheic roddcclmt18/03/7405Rptbhq59/27/2025Orders Only [address] [place] [address] Amy Ng LPN Abnormal ugxsjpohrv64/22/2025Results Follow-Up [address] [place] [address] Jeanine Rao NP TSH, T4, free, Vitamin D 25 cklvpmf5503/23/2025 9:00 AM EDTOffice Visit [address] [place] [address] Jeanine Rao NP Wellness examination (Primary Dx); Type 2 diabetes mellitus with hyperglycemia, without long-term current use of insulin (HCC); Mild intermittent asthma without complication ([facility]); ENRIQUE (generalized anxiety disorder); Severe single current episode of major depressive disorder, without psychotic features ([facility]); Vitamin D deficiency; Panic disorder with agoraphobia; Primary hypertension; Primary insomnia; Degenerative cervical disc; Hallux rigidus, left foot; Hallux valgus (acquired), left foot; Acquired hypothyroidism; Obesity due to excess calories with serious comorbidity, unspecified class; Acute post-traumatic stress disorder; Environmental and seasonal allergies; Immunization due; Abnormal cjpktsaflv73/21/2025bstract [place] [address] [place] [address] Jeanine Rao, CURLY 03/23/2025bstract [place] [address] [place] [address] Jeanine Rao, CURLY 03/23/2025amboo flowsheet [place] [address] [facility] [address] [place] [address] Jeanine Rao, CURLY 03/23/20255231Ilxrgo60/15/2025 1:00 PM EDTClinical Support [facility] Patient Education [address] [place] [address] Douglas Spivey RN Type 2 diabetes mellitus with hyperglycemia, with long-term current use of insulin ([facility]) (Primary Dx); BMI 39.0-39.9,adult03/17/2025amboo flowsheet [facility] Patient Education [facility] [facility] [address] [place] [address] Douglas Spivey RN 03/16/2025Refill [place] [address] [place] [address] Jeanine Rao, CURLY Type 2 diabetes mellitus with hyperglycemia, with long-term current use of insulin ([facility])03/16/2025Refill [place] [address] [place] [address] Jeanine Rao, CULRY Type 2 diabetes mellitus without complication, without long-term current use of insulin ([facility])03/16/2025Telephone [place] [address] [place] [address] Jeanine Rao, CURLY Results; Care Qvjkcofwwjom56/09/2025bstract [place] [address] [place] [address] Jeanine Rao, CURLY 03/08/2025Refill [place] [address] [place] [address] Jeanine Rao NP Type 2 diabetes mellitus without complication, without long-term current use of insulin ([facility])03/02/2025 11:30 AM EDTOffice Visit [facility] [address] [place] [address] Jamie Schwartz MD Type 2 diabetes mellitus with hyperglycemia, without long-term current use of insulin ([facility]) (Primary Dx); Primary hypertension ; Vitamin D deficiency; Acquired hypothyroidism ; Encounter for dietary consultation; Class 2 severe obesity due to excess calories with serious comorbidity and body mass index (BMI) of39.0 to 39.9 in adult ([facility])02/19/2025Telephone [address] [place] [address] Jeanine Rao, CURLY 02/19/2025Telephone [address] [place] [address] Jeanine Rao, CURLY 02/17/2025Telephone [address] [place] [address] Jeanine Rao NP [facility] /16/2025 2:30 PM EDTOffice Visit [address] [facility] [place] [address] Jeanine Rao, CURLY Type 2 diabetes mellitus with hyperglycemia, with long-term current use of insulin ([facility]) (Primary Dx); BMI 39.0-39.9,adult; Mild intermittent asthma without complication ([facility]); Acute upper respiratory infection; Type 2 diabetes mellitus without complication, without long-term current use of insulin ([facility])02/16/2025amboo flowsheet [place] [address] [place] [place] [address] Jeanine Rao, DEFENSE ANALYST 02/16/20253311Wzukot46/11/2025Telephone [address] [place] [address] Priscila Bailey RN Suwjdxzx85/22/2025Telephone [facility] [address] [place] [address] Jeanine Rao, CURLY from Last 3 Months Immunizations ImmunizationAdministration DatesNext DueHep B, adult05/16/2006,07/10/2003, 12/12/1995,09/19/1995Influenza, Rarhaeickfw04/08/2021,03/04/2020,04/03/2017 Influenza, injectable, quadrivalent, preservative free03/06/2024,05/10/2023, 04/13/2022,03/10/2021,03/04/2020,04/03/2017Influenza, seasonal, injectable, preservative free03/23/2025Pneumococcal Conjugate PCV 13107/07/20170222Aonl93/13/2017 Zoster, Rqzwhruoqla35/07/2022,03/10/2021 Family History Medical HistoryRelationNameCommentsBipolar disorderBrotherMental illnessBrother Esophageal cancerFatherHeart diseaseFatherMental illnessFathersevere depression FatherAlzheimer's diseaseMaternal GrandmotherDiabetesMotherHeart diseaseMother HypertensionMotherMental illnessMotherdepressionStrokeMotherLung cancerPaternal GrandfatherSuicideSon 4LpoythsbAopgGoqeenOnaguizaNmojbkf6 brotherDaughterAlive2 daughtersFatherDeceasedMaternal GrandmotherDeceasedMotherDeceasedPaternal GrandfatherDeceasedPaternal GrandmotherDeceasedSister2 sistersSon 2Xniog5 sons Son 2Deceased (Age 19) Social History Tobacco UseTypesPacks/DayYears UsedDateSmoking Tobacco: NeverSmokeless Tobacco: Never Tobacco Cessation:Counseling Given: No Alcohol UseStandard Drinks/WeekCommentsYes0 (1 standard drink = 0.6 oz pure alcohol)B1300 Health LiteracyAnswerDate RecordedHow often do you need to have someone help you when you read instructions, pamphlets, or other written material from your doctor or pharmacy?Never01/22/2024Social Connection and Isolation PanelAnswerDate RecordedIn a typical week, how many times do you talk on the phone with family, friends, or neighbors?More than three times a week 01/22/2024How often do you get together with friends or relatives?More than three times a week01/22/2024How often do you attend denominational or adventist services?More than 4 times per year01/22/2024o you belong to any clubs or organizations such as denominational groups, unions, fraternal or athletic groups, or school groups?Yes01/22/2024How often do you attend meetings of the clubs or organizations you belong to?More than 4 times per year01/22/2024re you , , , , never , or living with a partner? 01/22/2024UDIT-CAnswerDate RecordedQ1: How often do you have a drink containing alcohol?Monthly or less01/22/2024Q2: How many drinks containing alcohol do you have on a typical day when you are drinking?1 or Q3: How often do you have six or more drinks on one occasion?Never01/22/2024Overall Financial Resource Strain (CARDIA)AnswerDate RecordedHow hard is it for you to pay for the very basics like food, housing, medical care, and heating?Somewhat hard 01/22/2024HQ-2AnswerDate RecordedPatient Health Questionnaire-2 Score2 03/23/2025[facility] - Occupational Stress QuestionnaireAnswerDate RecordedDo you feel stress - tense, restless, nervous, or anxious, or unable to sleep at night because yourmind is troubled all the time - these days?Very much01/22/2024Exercise Vital SignAnswerDate RecordedOn average, how many days per week do you engage in moderate to strenuous exercise (like a brisk walk)?2 days01/22/2024On average, how many minutes do you engage in exercise at this level?30 min01/22/2024Hunger Vital SignAnswerDate Recorded Within the past 12 months, you worried that your food would run out before you got the money to buymore.Never true01/22/2024Within the past 12 months, the food you bought just didn't last and you didn't have money to get more.Never true 01/22/2024RAPARE - TransportationAnswerDate RecordedIn the past 12 months, has lack of transportation kept you from medical appointments or from getting medications?No01/22/2024In the past 12 months, has lack of transportation kept you from meetings, work, or from getting things needed for daily living?No 01/22/2024Housing Stability Vital SignAnswerDate RecordedIn the last 12 months, was there a time when you were not able to pay the mortgage or rent on time?No 01/22/2024Number of Times Moved in the Last YearNot on file01/22/2024t any time in the past 12 months, were you homeless or living in a custodial (including now)? No01/22/2024CommentsNoSex and Gender InformationValueDate RecordedSex Assigned at VggqlMnxvmk90/16/2023 9:54 AM EDTLegal AhiCzujxm64/15/2023 6:42 PM EDTGender MzbymfrvWbjcrf85/15/2023 6:42 PM EDTSexual OrientationNot on file Last Filed Vital Signs Vital SignReadingTime TakenCommentsBlood Oggbtbbp505/7203/23/2025 9:05 AM EDT Uaryh121303/23/2025 9:05 AM SIDLwknvawczwl56.8 ??C (98.3 ??F)03/23/2025 9:05 AM EDTRespiratory Axqw0537 9:05 AM EDTOxygen Womyrbzxhm41%03/23/2025 9:05 AM EDTInhaled Oxygen Concentration--Bzwyxh459 kg (226 lb 12.8 oz)03/23/2025 9:05 AM NEVKgvllk480 cm (5' 3 )03/23/2025 9:05 AM EDTBody Mass Index40.181 9:05 AM EDT Plan of Treatment DateTypeDepartmentCare Team (Latest Contact Info)Zibmyoatbde36/01/2025 9:00 AM ESTOffice Visit [facility] [address] [place] [address] Jeanine Rao, CURLY [address] [place] [address] 05/17/2025 2:20 PM ESTOffice Visit [facility] [address] [place] [address] Jamie Schwartz MD [address] [place], [place] [address] 05/19/2025 11:30 AM ESTEducation [facility] [place] [facility] [address] [place] [address] Cristina Escalante, DEFENSE ANALYST [address] [facility] [place] [address] 04/05/2026 10:00 AM ESTOffice Visit [facility] Derm[facility]ology [address] [place] [address] Amalia Cheng, PA [address] [place] [address] Health MaintenanceDue DateLast DoneCommentsCT Obfszivxbecz37/22/1968FIT-DNA 1967FIT1967FOBT1967 5201Jnariqlsqfgbi88/22/1968Pneumococcal Vaccine: Pediatrics (0 to 5 Years) and At-Risk Patients (6 to 64 Years) (2 of 2 - PPSV23, PCV20, or PCV21)COVID-19 Vaccine (3 - season)505/12/2020, 09/09/20209423Kvgfkjqdu31/10/789322/03/2025, 05/24/2023, 05/11/2022, Additional history existsDiabetes: Hemoglobin A1C , 02/16/2025, 12/11/2024, Additional history existsDiabetes: Urine Protein Wdakemevd01, 11/06/2023, 3Diabetes: Retinopathy Vmaxfqjjc69/06/151451/11/2023, 06/21/2023, 08/21/2018, Additional history uysrvpWbsbywpkzrd10Colorectal Cancer Screening 02/08/2028Cervical Cancer ScreeningDiscontinuedHPV/LmurvwAqmvzpvvgeqb46/17/2025, 06/19/2024, 1Pap RovygHpqiyycozcyn00/17/2025, 06/19/2024Influenza MrwpmpuKyelokanw99/21/2025, 03/06/2024, 05/10/2023, Additional history exists Procedures Procedure NamePriorityDate/TimeAssociated DiagnosisCommentsFL UGI106/12/2024 11:20 AM EST CRYOTHERAPY SKIN FNYDMOQxmuttf56/03/2025 10:05 AM EST Inflamed seborrheic keratosis VITAMIN D 25 HYDROXY YGMJRNswccdp49/21/2025 9:56 AM EDT Vitamin D deficiency T4, IIUSSswlwda24/21/2025 9:56 AM EDT Acquired hypothyroidism TYLKvhyspp92/21/2025 9:56 AM EDT Acquired hypothyroidism TEST XKIDTXIQLUCEOAujmfyo49/21/2025 9:55 AM EDT MICROALBUMIN / CREATININE URINE YHJIOTawcnea89/21/2025 9:55 AM EDT HEMOGLOBIN B5IPtbug75/21/2025 9:55 AM EDT Type 2 diabetes mellitus without complication, without long-term current use of insulin (HCC) LIPID AYUQTVnutb19/21/2025 9:55 AM EDT Wellness examination NALOpwbc07/21/2025 9:55 AM EDT Wellness examination COMPREHENSIVE METABOLIC PANEL (REFL)Today03/23/2025 9:55 AM EDT Wellness examination URINALYSIS, COMPLETE W/REFLEX TO RWLPEZGZsdst76/21/2025 9:55 AM EDT Dysuria Wellness examination CULTURE, URINE, BBANWHPPlgrjbi21/21/2025 9:55 AM EDT REFLEXIVE URINE GSDDDUIPnwkvbp26/21/2025 9:55 AM EDT AMB REFERRAL TO RISZGUAIVLHVTGmlklmq20/21/2025 6:41 AM EDT Type 2 diabetes mellitus with hyperglycemia, without long-term current use of insulin (HCC) AMB REFERRAL TO DIABETIC MOEOGLFMKQzregoy12/21/2025 6:39 AM EDTPOCT GLUCOSE Luavkqi6303/02/2025 11:33 AM EDT Type 2 diabetes mellitus with hyperglycemia, without long-term current use of insulin (HCC) BASIC METABOLIC HPXLDBohxvuq35/16/2025 HEMOGLOBIN H0BAwgrvce96/16/2025 BI MAMMOGRAM SCREENING TOMOSYNTHESIS PEBGMLGYUMsygfux83/10/2025 9:30 AM EST Visit for screening mammogram DIABETIC RETINOPATHY SCREENING - OU - BOTH BQICInratnb79/06/2024 3:58 AM EST HISTORIC PAP WITH HPV WGQAFXCltrkdw89/10/2021 12:00 PM EST EESUNXFOTRZCbvijvd56/07/2018 12:00 PM EDT from Last 3 Months or Most Recently Relevant to Health Maintenance Results * FL UGI (04/12/2025 11:20 AM EST)Anatomical RegionLateralityModalityOther Specimen (Source)Anatomical Location / LateralityCollection Method / Volume Collection TimeReceived Time04/12/2025 11:20 AM EST Narrative 04/12/2025 11:23 AM EST EXAMINATION: SINGLE CONTRAST UPPER GI [...] into normal appearing duodenal bulb and sweep. IMPRESSION: Normal exam Interpreted by: Donta Melendez DO Signed by: Donta Melendez DO 04/12/25 Final result Procedure Note Radiology, Radiologist, - 04/12/2025 EXAMINATION: SINGLE CONTRAST UPPER GI [...] appearing duodenalbulb and sweep. IMPRESSION: Normal exam Interpreted by: Donta Melendez DO Signed by: Donta Melendez DO 04/12/25 Final result Authorizing ProviderResult TypeResult StatusGerri Liban Rao NPCLINISYNC IMAGING Final Result * Cryotherapy, skin lesion (04/05/2025 10:05 AM EST) Narrative Authorizing ProviderResult TypeResult StatusAlisileana Cheng PADERM PROCEDURE ORDERABLESFinal Result * Vitamin D 25 hydroxy (03/23/2025 9:56 AM EDT)ComponentValueRef RangeTest MethodAnalysis TimePerformed AtPathologist SignatureVITAMIN D,25-OH,TOTAL,IA53 30 - 100 ng/mLQUESTComment: Vitamin D Status ? 25-OH Vitamin D: Deficiency: <20 ng/mL Insufficiency: ? 20 - 29 ng/mL Optimal: > or = 30 ng/mL For 25-OH Vitamin D testing on patients on D2-supplementation and patients for whom quantitation of D2 and D3 fractions is required, the QuestAssureD(TM) 25-OH VIT D, (D2,D3), LC/MS/MS is recommended: order code 13282 (patients >2yrs). See Note 1 Note 1 For additional information, please refer to http://education.ISH/faq/QMM309 (This link is being provided for informational/ educational purposes only.) Specimen (Source)Anatomical Location / LateralityCollection Method / Volume Collection TimeReceived TimeBloodVenous blood specimen / Fdhivnc3903/23/2025 9:56 AM EDT1 9:56 AM EDT Narrative [facility] - 03/24/2025 5:04 AM EDT FASTING:YES MULTIPLE TESTING PRIORITIES; ROUTINE TESTING TO FOLLOW. FASTING: YES Resulting Agency Comment Performing Organization Information ?Site ID: QPT ?Name: [facility] ?Address: [address] [place] [address] ?Director: Shaheed Becerra MD Authorizing ProviderResult TypeResult StatusGerri L Joselinee NPLAB BLOOD ORDERABLES Final ResultPerforming OrganizationAddressCity/State/ZIP CodePhone Number [facility] * TSH (03/23/2025 9:56 AM EDT)ComponentValueRef RangeTest MethodAnalysis Time Performed AtPathologist SignatureTSH0.950.40 - 4.50 mIU/LQUESTSpecimen (Source)Anatomical Location / LateralityCollection Method / VolumeCollection TimeReceived TimeBloodVenous blood specimen / Ksgvkqa9603/23/2025 9:56 AM EDT 03/23/2025 9:56 AM EDT Narrative [facility] - 03/24/2025 5:04 AM EDT FASTING:YES MULTIPLE TESTING PRIORITIES; ROUTINE TESTING TO FOLLOW. FASTING: YES Resulting Agency Comment Performing Organization Information ?Site ID: QPT ?Name: [facility] ?Address: [address] [place] [address] ?Director: Shaheed Becerra MD Authorizing ProviderResult TypeResult StatusGerri L Rine NPLAB BLOOD ORDERABLES Final ResultPerforming OrganizationAddressCity/State/ZIP CodePhone Number [facility] * T4, free (03/23/2025 9:56 AM EDT)ComponentValueRef RangeTest MethodAnalysis TimePerformed AtPathologist SignatureT4, FREE1.40.8 - 1.8 ng/dLQUESTSpecimen (Source)Anatomical Location / LateralityCollection Method / VolumeCollection TimeReceived TimeBloodVenous blood specimen / Cazfvzu3503/23/2025 9:56 AM EDT 03/23/2025 9:56 AM EDT Narrative [facility] - 03/24/2025 5:04 AM EDT FASTING:YES MULTIPLE TESTING PRIORITIES; ROUTINE TESTING TO FOLLOW. FASTING: YES Resulting Agency Comment Performing Organization Information ?Site ID: QPT ?Name: [facility] ?Address: [address] [place] [address], [address] [place] [phone] ?Director: Shaheed Becerra MD Authorizing ProviderResult TypeResult StatusJeanine Rao NPLAB BLOOD ORDERABLES Final ResultPerforming OrganizationAddressCity/State/ZIP CodePhone Number [facility]ST * TEST AUTHORIZATION (03/23/2025 9:55 AM EDT)ComponentValueRef RangeTest Method Analysis TimePerformed AtPathologist SignatureTEST NAME:ALBUMIN URINEQUESTTEST CODE:6,517QUESTCLIENT CONTACT:[phone] ALWAYS MESSAGE SIGNATUREQUESTComment: The laboratory testing on this patient was verbally requested or confirmed by the ordering physician or his or her authorized international sales representative after contact with an employee of [facility]. Federal regulations require that we maintain on file written authorization for all laboratory testing. ??Accordingly we are asking that the ordering physician or his or her authorized international sales representative sign a copy of this report and promptly return it to the client solutions specialist. Signature: COMMENTQUESTComment: Please have the ordering physician or his or her authorized international sales representative sign a copy of this report and promptly return it by faxing it to: [phone] or by returning the form to your patient services coordinator. Specimen (Source)Anatomical Location / LateralityCollection Method / Volume Collection TimeReceived Time03/23/2025 9:55 AM EDT1 9:56 AM EDT Narrative [facility] - 03/25/2025 9:06 AM EDT FASTING:YES FASTING: YES Resulting Agency Comment Performing Organization Information ?Site ID: QPT ?Name: [facility] ?Address: [address] [place] [address], [address] [place] [address] ?Director: Shaheed Becerra MD Authorizing ProviderResult TypeResult StatusGerri L Jalen NPLAB BLOOD ORDERABLES Final ResultPerforming OrganizationAddressty/[facility] CenterPhone Number [facility] * REFLEXIVE URINE CULTURE (03/23/2025 9:55 AM EDT)ComponentValueRef RangeTest MethodAnalysis TimePerformed AtPathologist SignatureREFLEXIVE URINE CULTURE QUESTComment:CULTURE INDICATED - RESULTS TO FOLLOWSpecimen (Source)Anatomical Location / LateralityCollection Method / VolumeCollection TimeReceived Time 03/23/2025 9:55 AM EDT1 9:56 AM EDT Narrative [facility] - 03/25/2025 9:06 AM EDT FASTING:YES FASTING: YES Resulting Agency Comment Performing Organization Information ?Site ID: QPT ?Name: [facility] ?Address: [address] [place] [address], [address] [place] [address] ?Director: Shaheed Becerra MD Authorizing ProviderResult TypeResult StatusGerri L Rine NPLAB MICROBIOLOGY - GENERAL ORDERABLESFinal ResultPerforming OrganizationAddressty/State/ZIP Code Phone Number [facility] * (ABNORMAL) COMPREHENSIVE METABOLIC PANEL (REFL) (03/23/2025 9:55 AM EDT) ComponentValueRef RangeTest MethodAnalysis TimePerformed AtPathologist OmuypgxqrAkqdkai603(H)65 - 99 mg/dLQUESTComment: ? Fasting reference interval For someone without known diabetes, a glucose value >125 mg/dL indicates that they may have diabetes and this should be confirmed with a follow-up test. JHB735 - 25 mg/dLQUESTCreatinine0.710.50 - 1.03 mg/rBMWWFGHHVR55> OR = 60 mL/min/1.18o0HBQKNOXA/CREATININE RATIOSEE NOTE: (calc)QUESTComment: ?? Not Reported: BUN and Creatinine are within ?? reference range. ? Imfsaz354728 - 146 mmol/LQUESTPotassium, Bld3.4(L)3.5 - 5.3 mmol/LQUESTChloride 9898 - 110 mmol/LQUESTCarbon Osktmem9115 - 32 mmol/LQUESTCalcium9.88.6 - 10.4 mg/dLQUESTPROTEIN, TOTAL6.36.1 - 8.1 g/dLQUESTALBUMIN4.43.6 - 5.1 g/dLQUEST GLOBULIN1.91.9 - 3.7 g/dL (calc)QUESTALBUMIN/GLOBULIN RATIO2.31.0 - 2.5 (calc) QUESTBILIRUBIN, TOTAL1.3(H)0.2 - 1.2 mg/dLQUESTALKALINE LCAKNEYRKBS3909 - 153 U/IQJRKUSEH2682 - 35 U/WUOOCTXVJ894 - 29 U/LQUESTSpecimen (Source)Anatomical Location / LateralityCollection Method / VolumeCollection TimeReceived Time 03/23/2025 9:55 AM EDT1 9:56 AM EDT Narrative [facility] - 03/25/2025 9:06 AM EDT FASTING:YES FASTING: YES Resulting Agency Comment Performing Organization Information ?Site ID: QPT ?Name: [facility] ?Address: [address] [place] [address], [address] [place] [phone] ?Director: Shaheed Becerra MD Authorizing ProviderResult TypeResult StatusGerri Liban Rao NPLAB BLOOD ORDERABLES Final ResultPerforming OrganizationAddressCity/State/ZIP CodePhone Number [facility]ST * (ABNORMAL) URINALYSIS, COMPLETE W/REFLEX TO CULTURE (03/23/2025 9:55 AM EDT) ComponentValueRef RangeTest MethodAnalysis TimePerformed AtPathologist SignatureCOLORYELLOWYELLOWQUESTAPPEARANCECLEARCLEARQUESTSPECIFIC GRAVITY1.025 1.001 - 1.269UMLQOOI5.55.0 - 8.2WRLQXMGZMMPQ6+(A)NEGATIVEQUESTBILIRUBIN NEGATIVENEGATIVEQUESTKETONESNEGATIVENEGATIVEQUESTOCCULT BLOODNEGATIVENEGATIVE QUESTPROTEINNEGATIVENEGATIVEQUESTNITRITENEGATIVENEGATIVEQUESTLEUKOCYTE ESTERASETRACE(A)NEGATIVEQUESTWBC0-5< OR = 5 /HPFQUESTRBCNONE SEEN< OR = 2 /HPF QUESTSQUAMOUS EPITHELIAL CELLS0-5< OR = 5 /HPFQUESTBACTERIANONE SEENNONE SEEN /HPFQUESTHYALINE CASTNONE SEENNONE SEEN /LPFQUESTNOTEQUESTComment: This urine was analyzed for the presence of WBC, RBC, bacteria, casts, and other formed elements. Only those elements seen were reported. Specimen (Source)Anatomical Location / LateralityCollection Method / Volume Collection TimeReceived Time03/23/2025 9:55 AM EDT1 9:56 AM EDT Narrative [facility] - 03/25/2025 9:06 AM EDT FASTING:YES FASTING: YES Resulting Agency Comment Performing Organization Information ?Site ID: QPT ?Name: [facility] ?Address: [address] [place] [address], [address] [place] [phone] ?Director: Shaheed Becerra MD Authorizing ProviderResult TypeResult StatusGerri L Jalen NPLAB BODY FLUIDS AND STOOLS ORDERABLESFinal ResultPerforming OrganizationAddressCity/State/ZIP Code Phone Number [facility] * Microalbumin / creatinine urine ratio (03/23/2025 9:55 AM EDT)ComponentValue Ref RangeTest MethodAnalysis TimePerformed AtPathologist SignatureCREATININE, RANDOM RYJST1001 - 275 mg/dLQUESTALBUMIN, URINE0.2See Note: mg/dLQUESTComment: Reference Range: Reference Range Not established ALBUMIN/CREATININE RATIO, RANDOM URINE6<30 mg/g creatQUESTComment: The ADA defines abnormalities in albumin excretion as follows: Albuminuria Category ?Result (mg/g creatinine) Normal to Mildly increased <30 Moderately increased ? 30-299 Severely increased > OR = 300 The ADA recommends that at least two of three specimens collected within a 3-6 month period be abnormal before considering a patient to be within a diagnostic category. Specimen (Source)Anatomical Location / LateralityCollection Method / Volume Collection TimeReceived Time03/23/2025 9:55 AM EDT1 9:56 AM EDT Narrative [facility] - 03/25/2025 9:06 AM EDT FASTING:YES FASTING: YES Resulting Agency Comment Performing Organization Information ?Site ID: QPT ?Name: [facility] ?Address: [address] [place] [address], [address] [place] [phone] ?Director: Shaheed Becerra MD Authorizing ProviderResult TypeResult StatusGerri Liban Rao NPLAB URINE ORDERABLES Final ResultPerforming OrganizationAddressCity/State/ZIP CodePhone Number [facility]ST * CBC (03/23/2025 9:55 AM EDT)ComponentValueRef RangeTest MethodAnalysis Time Performed AtPathologist SignatureWHITE BLOOD CELL COUNT5.83.8 - 10.8 Thousand/uLQUESTRED BLOOD CELL COUNT4.843.80 - 5.10 Million/uLQUESTHEMOGLOBIN 14.511.7 - 15.5 g/eJRPZGABNVNSYMBSQ55.235.0 - 45.0 %FJJWAOJH24.380.0 - 100.0 cZZPSWATRK57.027.0 - 33.0 igWLLHEKOHA43.632.0 - 36.0 g/dLQUESTComment: For adults, a slight decrease in the calculated MCHC value (in the range of 30 to 32 g/dL) is most likely not clinically significant; however, it should be interpreted with caution in correlation with other red cell parameters and the patient's clinical condition. RDW13.811.0 - 15.0 %QUESTPLATELET WGNQP336389 - 400 Thousand/uLQUESTMPV9.97.5 - 12.5 fLQUESTSpecimen (Source)Anatomical Location / LateralityCollection Method / VolumeCollection TimeReceived TimeBloodVenous blood specimen / Lizrkpa3203/23/2025 9:55 AM EDT1 9:56 AM EDT Narrative [facility] - 03/25/2025 9:06 AM EDT FASTING:YES FASTING: YES Resulting Agency Comment Performing Organization Information ?Site ID: QPT ?Name: [facility] ?Address: [address] [place] [address], [address] [place] [phone] ?Director: Shaheed Becerra MD Authorizing ProviderResult TypeResult StatusJeanine SO BLOOD ORDERABLES Final ResultPerforming OrganizationAddressty/State/ZIP CodePhone Number [facility]ST * Urine culture (03/23/2025 9:55 AM EDT)ComponentValueRef RangeTest Method Analysis TimePerformed AtPathologist SignatureMICRO [id number] SPECIMEN QUALITYAdequateQUESTSOURCE: (QUEST)URINEQUESTSTATUSFINALQUESTRESULT SEE NOTEQUESTComment: No Growth Specimen (Source)Anatomical Location / LateralityCollection Method / Volume Collection TimeReceived Time03/23/2025 9:55 AM EDT1 9:56 AM EDT Narrative [facility] - 03/25/2025 9:06 AM EDT FASTING:YES FASTING: YES Resulting Agency Comment Performing Organization Information ?Site ID: QPT ?Name: [facility] ?Address: [address] [place] [address], [address] [place] [address] ?Director: Shaheed Becerra MD Authorizing ProviderResult TypeResult StatusJeanine SO MICROBIOLOGY - GENERAL ORDERABLESFinal ResultPerforming OrganizationAddressty/[facility] Phone Number [facility] * (ABNORMAL) Hemoglobin A1c (03/23/2025 9:55 AM EDT) Only the most recent of2 resultswithin the time period is included. ComponentValueRef RangeTest MethodAnalysis TimePerformed AtPathologist Signature Hemoglobin A1C7.7(H)<5.7 %QUESTComment: For someone without known diabetes, a hemoglobin A1c value of 6.5% or greater indicates that they may have diabetes and this should be confirmed with a follow-up test. For someone with known diabetes, a value <7% indicates that their diabetes is well controlled and a value greater than or equal to 7% indicates suboptimal control. A1c targets should be individualized based on duration of diabetes, age, comorbid conditions, and other considerations. Currently, no consensus exists regarding use of hemoglobin A1c for diagnosis of diabetes for children. ?? Specimen (Source)Anatomical Location / LateralityCollection Method / Volume Collection TimeReceived TimeBloodVenous blood specimen / Xspxqko0703/23/2025 9:55 AM EDT1 9:56 AM EDT Narrative [facility] - 03/25/2025 9:06 AM EDT FASTING:YES FASTING: YES Resulting Agency Comment Performing Organization Information ?Site ID: QPT ?Name: [facility] ?Address: [address] [place] [address], [address] [place] [phone] ?Director: Shaheed Becerra MD Authorizing ProviderResult TypeResult StatusGerri Liban Rao NPLAB BLOOD ORDERABLES Final ResultPerforming OrganizationAddressCity/State/ZIP CodePhone Number [facility] * (ABNORMAL) Lipid panel (03/23/2025 9:55 AM EDT)ComponentValueRef RangeTest MethodAnalysis TimePerformed AtPathologist SignatureCHOLESTEROL, WZPPP549<200 mg/dLQUESTHDL NTDZOEXKKBL30> OR = 50 mg/wMLJVSCHLMIIHQNUIDFJ957(H)<150 mg/dL QUESTLDL WMFFQOLYMVS08ul/dL (calc)QUESTComment: Reference range: <100 Desirable range <100 mg/dL for primary prevention; <70 mg/dL for patients with CHD or diabetic patients with > or = 2 CHD risk factors. LDL-C is now calculated using the Junaid-Yamileth calculation, which is a validated novel method providing better accuracy than the Friedewald equation in the estimation of LDL-C. Junaid SS et al. NICCI. 2013;310(19): 9614-2343 (http://education.bCommunities.com/faq/WKW063) CHOL/HDLC RATIO2.3<5.0 (calc)QUESTNON HDL PUGLYFJOVDS00<130 mg/dL (calc)QUEST Comment: For patients with diabetes plus 1 major ASCVD risk factor, treating to a non-HDL-C goal of <100 mg/dL (LDL-C of <70 mg/dL) is considered a therapeutic option. Specimen (Source)Anatomical Location / LateralityCollection Method / Volume Collection TimeReceived TimeBloodVenous blood specimen / Qfkouer0403/23/2025 9:55 AM EDT10/ 9:56 AM EDT Narrative [facility] - 03/25/2025 9:06 AM EDT FASTING:YES FASTING: YES Resulting Agency Comment Performing Organization Information ?Site ID: QPT ?Name: [facility] ?Address: [facility] , [address] [place] [phone] ?Director: Shaheed Becerra MD Authorizing ProviderResult TypeResult StatusGerri L Rine NPLAB BLOOD ORDERABLES Final ResultPerforming OrganizationAddressCity/State/ZIP CodePhone Number QUEST * Ambulatory referral to Endocrinology (03/23/2025 6:41 AM EDT) Narrative Authorizing ProviderResult TypeResult StatusGerri L Rine NPOUTPATIENT REFERRAL ORDERABLESFinal Result * Ambulatory referral to Diabetic Education (03/23/2025 6:39 AM EDT) Narrative Authorizing ProviderResult TypeResult StatusGerri L Rine NPOUTPATIENT REFERRAL ORDERABLESFinal Result * POCT glucose manually resulted (03/02/2025 11:33 AM EDT)ComponentValueRef RangeTest MethodAnalysis TimePerformed AtPathologist SignatureGlucose Blood, MUR723ii/dLSpecimen (Source)Anatomical Location / LateralityCollection Method / VolumeCollection TimeReceived TimeBloodCapillary blood specimen / Unknown 03/02/2025 11:33 AM EDT Narrative Authorizing ProviderResult TypeResult Erica Schwartz MDPOINT OF CARE TEST ENTER/EDIT ORDERABLESFinal Result * (ABNORMAL) Basic metabolic panel (02/16/2025)ComponentValueRef RangeTest MethodAnalysis TimePerformed AtPathologist AaocvgdmuNfsochu922(A)65 - 99 mg/dL BUN23(A)4 - 21 mg/dLCreatinine0.90.5 - 1.1 mg/dLEGFR>60BUN/Creat Kgjrf81Trxewt 141Potassium, Bld3.5Fllpwqwj131Brumge Npwrreb64.5mmol/LCalcium9.28.7 - 10.7 mg/dLAnion Gap13<=30 mmol/LSpecimen (Source)Anatomical Location / Laterality Collection Method / VolumeCollection TimeReceived TimeBloodVenous blood specimen / Orazypu6602/16/2025 Narrative Authorizing ProviderResult TypeResult StatusGerri L Rine NPLAB BLOOD ORDERABLES Final Result * Bilateral screening mammogram with tomosynthesis (06/12/2024 9:30 AM EST) Anatomical RegionLateralityModalityBreastBilateralMammographySpecimen (Source) Anatomical Location / LateralityCollection Method / VolumeCollection Time Received Time06/15/2024 10:09 AM EST Impressions 06/15/2024 10:15 AM EST Impression: No specific evidence of malignancy seen in either breast. BIRADS 2 - Benign Findings DENSITY: The breasts are almost entirely fatty. FOLLOW-UP: Routine Screening Mammogram ELECTRONICALLY SIGNED BY: Martin Larkin M.D. Narrative 06/15/2024 10:15 AM EST Examination: BI MAMMOGRAM SCREENING TOMOSYNTHESIS BILATERAL Clinical History: annual screening Technique: Screening digital mammography study of both breasts was performed with 2-D and 3-D tomosynthesis imaging. Study was compared to the prior exam dated 05/24/2023. Findings: There is no evidence of interval dominant spiculated mass, grouped microcalcifications, or skin thickening which would be suggestive of malignancy. ?? A few benign-appearing calcifications are seen bilaterally. Procedure Note Martin Larkin MD - 06/15/2024 Examination: BI MAMMOGRAM SCREENING TOMOSYNTHESIS BILATERAL Clinical History: annual screening Technique: Screening digital mammography study of both breasts wasperformed with 2-D and 3-D tomosynthesis imaging. Study was compared tothe prior exam dated 05/24/2023. Findings: There is no evidence of interval dominant spiculated mass,grouped microcalcifications, or skin thickening which would be suggestiveof malignancy. A few benign-appearing calcifications are seen bilaterally. IMPRESSION: Impression: No specific evidence of malignancy seen in either breast. BIRADS 2 - Benign Findings DENSITY: The breasts are almost entirely fatty. FOLLOW-UP: Routine Screening Mammogram ELECTRONICALLY SIGNED BY: Martin Larkin M.D. Authorizing ProviderResult TypeResult StatusJeanine Rao NPIMG BI PROCEDURES Final Result * Diabetic Retinopathy Screening - OU - Both Eyes (05/08/2024 3:58 AM EST) Anatomical RegionLateralityModalityHeadOther Narrative Authorizing ProviderResult TypeResult StatusGerri L Joselinee NPOPHTH PHOTOGRAPHY Final Result * HISTORIC PAP WITH HPV RESULT (05/12/2021 12:00 PM EST)ComponentValueRef Range Test MethodAnalysis TimePerformed AtPathologist SignatureGENERIC LEGACY COMPONENT INTERNALLSILECW NONXML LABSGENERIC LEGACY COMPONENT INTERNALpositive ECW NONXML LABSSpecimen (Source)Anatomical Location / LateralityCollection Method / VolumeCollection TimeReceived Time05/12/2021 12:00 PM EST Narrative Authorizing ProviderResult TypeResult StatusMichael G Indy DOECW LABSFinal ResultPerforming OrganizationAddressCity/State/ZIP CodePhone Number [facility] NONXML LABS * Colonoscopy (02/07/2018 12:00 PM EDT)Anatomical RegionLateralityModality EndoscopySpecimen (Source)Anatomical Location / LateralityCollection Method / VolumeCollection TimeReceived Time02/07/2018 12:00 PM EDT Narrative 02/07/2018 12:00 PM EDT PERFORMED AT [facility] LOCATION:[id number] [facility] Procedure Note CONVERSION, GENERIC - 10/17/2022 PERFORMED AT [facility] LOCATION:[id number] [facility] Authorizing ProviderResult TypeResult StatusGerri L Rine NPENDOSCOPY PROCEDURE ORDERABLESFinal Result from Last 3 Months or Most Recently Relevant to Health Maintenance Insurance * Guarantor: Nadeen Aguila AAccount TypeRelation to PatientDate of BirthPhone Billing AddressPersonal/RasgsmNcgq90/22/1966 [facility] [address] [address] Care Teams Team MemberRelationshipSpecialtyStart DateEnd Date Jose Putnam DO [address] [place] [address] PCP - [facility]11/09/22 Jeanine Rao NP [address] [place], [place] [phone] Nurse PractitionerEmory Hillandale Hospital11/09/22
--- OUTSIDE RECORDS SUMMARY | 2025-04-23 13:24 | XMS_ITS | Encounter Summary ---
Author Organization [facility] Address [address] [place] [address] Care Team Providers Care Drum Straightener Name Role Phone IndyJose yu Ventura MONROE Primary Care Provider [phone] Jeanine Rao [employer] Unavailable Reason for Visit * ReasonOnset DateCommentsmy chart ?04/15/2025 Encounter Details DateTypeDepartmentCare Team (Latest Contact Info)Rzszoadbrng49/13/2025Telephone [facility] [address] [place] [address] Jeanine Rao, CURLY [address] [place] [address] my chart ? Social History Tobacco UseTypesPacks/DayYears UsedDateSmoking Tobacco: NeverSmokeless Tobacco: NeverAlcohol UseStandard Drinks/WeekCommentsYes0 (1 standard drink = 0.6 [...] times a week01/22/2024How often do you attend taoist or presybeterian services?More than 4 times per year4Do you belong to any clubs or organizations such as taoist groups, unions, fraternal or athletic groups, or [...] heating?Somewhat hard 01/22/2024HQ-2AnswerDate RecordedPatient Health Questionnaire-2 Score2 03/23/2025[facility] [place] [facility] - Occupational Stress QuestionnaireAnswerDate [...] were you homeless or living in a jail (including now)? No01/22/2024CommentsNoSex and Gender InformationValueDate RecordedSex Assigned at QzmqyMrxnqc80/16/2023 9:54 AM EDTLegal GgvNlizid32/15/2023 6:42 PM EDTGender MgeerhzxNugpxa34/15/2023 6:42 PM EDTSexual OrientationNot on file documented as of this encounter Miscellaneous Notes * Telephone Encounter - Evelyne Valentin MA - 04/16/2025 7:16 AM EST I changed the name of the document to night time oxmitery. To help patient find the test. It is under media and I am not sure if they can see all the media documents. Message also sent to patient * Telephone Encounter - Jeanine Rao NP - 04/15/2025 4:03 PM EST Pt sending portal message that she would like her night pulse study result loaded so she can reviewit. I advised i am unsure if possible. Is that possible? documented in this encounter Plan of Treatment DateTypeDepartmentCare Team (Latest Contact Info)Vhlocifnfqe73/01/2025 9:00 AM ESTOffice Visit [facility] [address] [place] [address] Jeanine Rao NP [address] [place] [address] 05/17/2025 2:20 PM ESTOffice Visit [facility] [place] [facility] [address] [place] [phone] Jamie Schwartz MD [address] [place] [address] 05/19/2025 11:30 AM ESTEducation [facility] [address] [place] [phone] Cristina Escalante, [employer] [address] [place] [address] 04/05/2026 10:00 AM ESTOffice Visit [facility] [address] [place] [phone] Amalia Cheng, [place] [address] [facility] [address] [place] [address] documented as of this encounter Visit Diagnoses Not on filedocumented in this encounter Additional Health Concerns AssessmentNoted TimePHQ-9 Depression Total Score: 9:10 AM EDT documented as of this encounter Care Teams Team MemberRelationshipSpecialtyStart DateEnd Date Jose Putnam DO [address] [place] [address] PCP - GeneralFamily Medicine11/09/22 Jeanine Rao, CURLY [address] [place] [address] Nurse PractitionerFamily Medicine11/09/22documented as of this encounter
--- OUTSIDE RECORDS SUMMARY | 2025-04-23 13:24 | XMS_ITS | Encounter Summary ---
Author Organization [facility] Address [address] [place] [address] Care Team Providers Care Bi Specialist Name Role Phone Indy Jose Whitehead DO Primary Care Provider +1 [phone] Jeanine Rao BAKERY MANAGER Unavailable Reason for Visit * ReasonOnset DateCommentsBlood Sugar Lqdnesg4304/15/2025 Encounter Details DateTypeDepartmentCare Team (Latest Contact Info)Kgbfbvflbny47/13/2025Telephone [facility] [address] [place] [address] Chelita Molina LPN Blood Sugar Problem Social History Tobacco UseTypesPacks/DayYears UsedDateSmoking Tobacco: NeverSmokeless [...] times a week01/22/2024How often do you attend roman catholic or synagogue services?More than 4 times per year01/22/2024o you belong to any clubs or organizations such as roman catholic groups, unions, fraternal or athletic groups, or [...] heating?Somewhat hard 01/22/2024HQ-2AnswerDate RecordedPatient Health Questionnaire-2 Score2 03/23/2025[facility] [place] of Occupational Health - Occupational Stress QuestionnaireAnswerDate [...] were you homeless or living in a longterm (including now)? No01/22/2024CommentsNoSex and Gender InformationValueDate RecordedSex Assigned at VbybuNewndp20/16/2023 9:54 AM EDTLegal JnhUdikym00/15/2023 6:42 PM EDTGender DmhvqzenDbtndp27/15/2023 6:42 PM EDTSexual OrientationNot on file documented as of this encounter Miscellaneous Notes * Telephone Encounter - Chelita Molina LPN - 04/15/2025 1:55 PM EST PT STATES SHE FEELS HER A1C IS TOO HIGH AND HER BLOOD SUGARS HAVE BEEN HIGHER. SHE NEEDS TO HAVE SURGERY. PLEASE ADVISE THANKS. documented in this encounter Plan of Treatment DateTypeDepartmentCare Team (Latest Contact Info)Feosdminolx00/01/2025 9:00 AM ESTOffice Visit [facility] [address] [place] [address] Jeanine Rao NP [address] [place] [address] 05/17/2025 2:20 PM ESTOffice Visit [facility] [address] [place] [address] Jamie Schwartz MD [address] [place] [address] 05/19/2025 11:30 AM ESTEducation [facility] [address] [place] [address] Cristina Escalante, BAKERY MANAGER [address] [place] [address] 04/05/2026 10:00 AM ESTOffice Visit [facility] [address] [place] [address] Amalia Cheng, PA [address] [facility] [address] [place] [address] documented as of this encounter Visit Diagnoses Not on filedocumented in this encounter Additional Health Concerns AssessmentNoted TimePHQ-9 Depression Total Score: 9:10 AM EDT documented as of this encounter Care Teams Team MemberRelationshipSpecialtyStart DateEnd Date Jose Putnam DO [address] [place] [address] PCP - GeneralFamily Medicine11/09/22 Jeanine Rao, CURLY [address] [place] [address] Nurse PractitionerFamily Medicine11/09/22documented as of this encounter
--- OUTSIDE RECORDS SUMMARY | 2025-04-23 13:24 | XMS_ITS | Encounter Summary ---
Author Organization [facility] Address [address] [place] [address] Care Team Providers Care Field Operations Technician Name Role Phone IndyJose ferrell [place] MONROE Primary Care Provider +1- [phone] Jeanine Rao CRAFT COORDINATOR Unavailable Reason for Visit * ReasonOnset DateCommentsFax order for swallow study04/12/2025 Encounter Details DateTypeDepartmentCare Team (Latest Contact Info)Mwqoezrpfwj44/10/2025Telephone [facility] [address] [place] [address] Jeanine Rao, CRAFT COORDINATOR [address] [place] [address] Fax order for swallow study Social History Tobacco UseTypesPacks/DayYears UsedDateSmoking Tobacco: NeverSmokeless [...] times a week01/22/2024How often do you attend jehovah's witness or oriental orthodox services?More than 4 times per year01/22/2024o you belong to any clubs or organizations such as jehovah's witness groups, unions, fraternal or athletic groups, or [...] heating?Somewhat hard 01/22/2024HQ-2AnswerDate RecordedPatient Health Questionnaire-2 Score2 03/23/2025[facility] [place] of Occupational Health - Occupational Stress QuestionnaireAnswerDate [...] were you homeless or living in a group home (including now)? No01/22/2024CommentsNoSex and Gender InformationValueDate RecordedSex Assigned at ZyedcZpsxjs93/16/2023 9:54 AM EDTLegal AizTfejth44/15/2023 6:42 PM EDTGender OazpondnZkkype03/15/2023 6:42 PM EDTSexual OrientationNot on file documented as of this encounter Miscellaneous Notes * Telephone Encounter - Amy Ng LPN - 04/12/2025 3:57 PM EST Order [facility] * Telephone Encounter - Jeanine Rao NP - 04/12/2025 3:36 PM EST Order created, i will message pt to call to schedule on wed am, please fax to [facility]. documented in this encounter Plan of Treatment DateTypeDepartmentCare Team (Latest Contact Info)Znygnhdggxh30/01/2025 9:00 AM ESTOffice Visit [facility] [address] [place] [address] Jeanine Rao NP [address] [place] [address] 05/17/2025 2:20 PM ESTOffice Visit [facility] [address] [place] [address] Jamie Schwartz MD [address] [place] [address] 05/19/2025 11:30 AM ESTEducation [facility] [address] [facility] [place] [phone] Cristina Escalante, CRAFT COORDINATOR [address] [place], [place] [phone] 04/05/2026 10:00 AM ESTOffice Visit [facility] [address] [facility] [place] [address] Amalia Cheng, PA [address] [place], [place] [phone] documented as of this encounter Visit Diagnoses Diagnosis Pharyngoesophageal dysphagia- Primary Dysphagia, pharyngoesophageal phase documented in this encounter Additional Health Concerns AssessmentNoted TimePHQ-9 Depression Total Score: 9:10 AM EDT documented as of this encounter Care Teams Team MemberRelationshipSpecialtyStart DateEnd Date Jose Putnam DO [address] [place] [address] PCP - GeneralFamily Medicine11/09/22 Jeanine Rao, CURLY [address] [place], [place] [address], [place] [address] Nurse PractitionerFamily Medicine11/09/22documented as of this encounter
--- OUTSIDE RECORDS SUMMARY | 2025-04-23 13:24 | XMS_ITS | Encounter Summary ---
Author Organization [facility] Address [address] [place] [address] Care Team Providers Care Pressing Department Supervisor Name Role Phone IndyJose yu Primary Care Provider +1- [phone] Jeanine Rao AIRFRAME TECHNICIAN Unavailable Encounter Details DateTypeDepartmentCare Team (Latest Contact Info)Rdonxpnmkjx54/12/2025bstract [facility] [address] [place] [address] Jeanine Rao, AIRFRAME TECHNICIAN [address] [place] [address] Social History Tobacco UseTypesPacks/DayYears UsedDateSmoking Tobacco: NeverSmokeless [...] times a week01/22/2024How often do you attend restorationism or voodoo services?More than 4 times per year4Do you belong to any clubs or organizations such as restorationism groups, unions, fraternal or athletic groups, or [...] 01/22/2024HQ-2AnswerDate RecordedPatient Health Questionnaire-2 Score2 03/23/2025[facility] [place] of Occupational Health - Occupational Stress QuestionnaireAnswerDate [...] were you homeless or living in a snf (including now)? No01/22/2024CommentsNoSex and Gender InformationValueDate RecordedSex Assigned at ReaapAjydji79/16/2023 9:54 AM EDTLegal MyhFoddyb14/15/2023 6:42 PM EDTGender YuupcvbyUxywgt69/15/2023 6:42 PM EDTSexual OrientationNot on file documented as of this encounter Plan of Treatment DateTypeDepartmentCare Team (Latest Contact Info)Xszwbkemszg09/01/2025 9:00 AM ESTOffice Visit [facility] [phone] Jeanine Rao NP [address] [address] 05/17/2025 2:20 PM ESTOffice Visit [facility] [address] [place] [address] Jamie Schwartz MD [address] [place] [address] 05/19/2025 11:30 AM ESTEducation [facility] [place] [facility] [phone] Cristina Escalante, AIRFRAME TECHNICIAN [address] [place] [address] 04/05/2026 10:00 AM ESTOffice Visit [facility] [address] Amalia Cheng, PA [address] [place], [place] [phone] documented as of this encounter Visit Diagnoses Not on filedocumented in this encounter Additional Health Concerns AssessmentNoted TimePHQ-9 Depression Total Score: 9:10 AM EDT documented as of this encounter Care Teams Team MemberRelationshipSpecialtyStart DateEnd Date Jose Putnam DO [address] [place] [address] PCP - GeneralFamily Medicine11/09/22 Jeanine Rao NP [address] [place] [address] Nurse PractitionerFamily Medicine11/09/22documented as of this encounter
--- OUTSIDE RECORDS SUMMARY | 2025-04-23 13:24 | XMS_ITS | Encounter Summary ---
Author Organization [facility] Address [address] [place] [address] Care Team Providers Care Brancher Name Role Phone IndyJose yu [place]RO[place] Primary Care Provider +1- [phone] Jeanine Rao DIRECTOR OF RESIDENCE LIFE Unavailable Encounter Details DateTypeDepartmentCare Team (Latest Contact Info)Wbkwctoprkx13/12/2025Orders Only [facility] [address] [place] [address] Amy Ng LPN [address] [place] [address] Social History Tobacco UseTypesPacks/DayYears UsedDateSmoking [...] times a week01/22/2024How often do you attend hoahaoism or congregational services?More than 4 times per year4Do you belong to any clubs or organizations such as hoahaoism groups, unions, fraternal or athletic groups, or [...] heating?Somewhat hard 01/22/2024HQ-2AnswerDate RecordedPatient Health Questionnaire-2 Score2 03/23/2025[facility] [place] of Occupational Health - Occupational Stress QuestionnaireAnswerDate [...] were you homeless or living in a residential (including now)? No01/22/2024CommentsNoSex and Gender InformationValueDate RecordedSex Assigned at TjgtyGqldxq29/16/2023 9:54 AM EDTLegal CaaQomjqi03/15/2023 6:42 PM EDTGender CowdhylrUdcefq77/15/2023 6:42 PM EDTSexual OrientationNot on file documented as of this encounter Plan of Treatment DateTypeDepartmentCare Team (Latest Contact Info)Abfmlopffwz75/01/2025 9:00 AM ESTOffice Visit [facility] [phone] Jeanine Rao NP [address] [address] 05/17/2025 2:20 PM ESTOffice Visit [facility] [address] [place] [address] Jamie Schwartz MD [address] [place] [address] 05/19/2025 11:30 AM ESTEducation [facility] [place] [facility] [phone] Cristina Escalante, DIRECTOR OF RESIDENCE LIFE [address] [place] [address] 04/05/2026 10:00 AM ESTOffice Visit [facility] [place] [facility] [address] Amalia Cheng, PA [address] [place], [place] [phone] documented as of this encounter Visit Diagnoses Not on filedocumented in this encounter Additional Health Concerns AssessmentNoted TimePHQ-9 Depression Total Score: 9:10 AM EDT documented as of this encounter Care Teams Team MemberRelationshipSpecialtyStart DateEnd Date Jose Putnam DO [address] [place] [address] PCP - GeneralFamily Medicine11/09/22 Jeanine Rao NP [address] [place] [address] Nurse PractitionerFamily Medicine11/09/22documented as of this encounter
--- OUTSIDE RECORDS SUMMARY | 2025-04-23 13:24 | XMS_ITS | Encounter Summary ---
Author Organization [facility] Address [address] [place] [address] Care Team Providers Care Assistant Professor Of Mathematics Name Role Phone IndyJose yu Primary Care Provider +1- [phone] Jeanine Rao CERTIFIED NURSE OPERATING ROOM Unavailable Encounter Details DateTypeDepartmentCare Team (Latest Contact Info)Infetemnjwo68/17/2025bstract [facility] [address] [place] [address] Jeanine Rao, CERTIFIED NURSE OPERATING ROOM [address] [place] [address] Social History Tobacco UseTypesPacks/DayYears UsedDateSmoking [...] times a week01/22/2024How often do you attend shinto or evangelical services?More than 4 times per year4Do you belong to any clubs or organizations such as shinto groups, unions, fraternal or athletic groups, or [...] 01/22/2024HQ-2AnswerDate RecordedPatient Health Questionnaire-2 Score2 03/23/2025[facility] [place] of Occupational Health - Occupational Stress QuestionnaireAnswerDate [...] were you homeless or living in a fpc (including now)? No01/22/2024CommentsNoSex and Gender InformationValueDate RecordedSex Assigned at QxbcrYfbmth91/16/2023 9:54 AM EDTLegal YohMzzvka41/15/2023 6:42 PM EDTGender ParursuoTeuzfe55/15/2023 6:42 PM EDTSexual OrientationNot on file documented as of this encounter Plan of Treatment DateTypeDepartmentCare Team (Latest Contact Info)Rupjepgtoge68/01/2025 9:00 AM ESTOffice Visit [facility] [phone] Jeanine Rao NP [address] [address] 05/17/2025 2:20 PM ESTOffice Visit [facility] [address] [place] [address] Jamie Schwartz MD [address] [place] [address] 05/19/2025 11:30 AM ESTEducation [facility] [place] [facility] [phone] Cristina Escalante, CERTIFIED NURSE OPERATING ROOM [address] [place] [address] 04/05/2026 10:00 AM ESTOffice Visit [facility] [facility] [address] Amalia Cheng, PA [address] [place], [place] [address] documented as of this encounter Visit Diagnoses Not on filedocumented in this encounter Additional Health Concerns AssessmentNoted TimePHQ-9 Depression Total Score: 9:10 AM EDT documented as of this encounter Care Teams Team MemberRelationshipSpecialtyStart DateEnd Date Jose Putnam DO [address] [place] [address] PCP - GeneralFamily Medicine11/09/22 Jeanine Rao NP [address] [place] [address] Nurse PractitionerFamily Medicine11/09/22documented as of this encounter
--- OUTSIDE RECORDS SUMMARY | 2025-04-23 13:24 | XMS_ITS | Encounter Summary ---
Author Organization [facility] Address [address] [place] [address] Care Team Providers Care Supervisory Lifeguard Name Role Phone IndyJose yu [place] Primary Care Provider +1- [phone] Jeanine Rao LAPEL STITCHER Unavailable Reason for Visit * ReasonOnset DateCommentsCare Hcqjmikaadub99/12/2025 Encounter Details DateTypeDepartmentCare Team (Latest Contact Info)Lhsrjalavyn50/12/2025Telephone [facility] [address] [place] [phone] Jeanine Rao, LAPEL STITCHER [address] [place] [address] Care Coordination Social History Tobacco UseTypesPacks/DayYears UsedDateSmoking Tobacco: NeverSmokeless [...] times a week01/22/2024How often do you attend baptism or yazidi services?More than 4 times per year4Do you belong to any clubs or organizations such as baptism groups, unions, fraternal or athletic groups, or [...] heating?Somewhat hard 01/22/2024HQ-2AnswerDate RecordedPatient Health Questionnaire-2 Score2 03/23/2025[facility] [place] of Occupational Health - Occupational Stress QuestionnaireAnswerDate [...] No01/22/2024CommentsNoSex and Gender InformationValueDate RecordedSex Assigned at FxszgWlmyjv86/16/2023 9:54 AM EDTLegal DktLkpbvu79/15/2023 6:42 PM EDTGender NisdkpuzAukjus96/15/2023 6:42 PM EDTSexual OrientationNot on file documented as of this encounter Miscellaneous Notes * Telephone Encounter - Amy Ng LPN - 04/14/2025 1:10 PM EST Manually Faxed order and form back to [employer] company requesting nocturnal oxygen to be bled into cpap,. Portal message sent to Mariella to let her know. * Telephone Encounter - Jeanine Rao NP - 04/14/2025 12:43 PM EST Spo2 88%, qualifies for nocturnal oxygen, would go 2 liters per nasal cannula, unsure how to add. documented in this encounter Plan of Treatment DateTypeDepartmentCare Team (Latest Contact Info)Lxmwetfgyeh89/01/2025 9:00 AM ESTOffice Visit [facility] [address] [place] [address] Jeanine Rao NP [address] [place] [address] 05/17/2025 2:20 PM ESTOffice Visit [facility] [place] [facility] [address] [place] [address] Jamie Schwartz MD [address] [place], [place] [address] 05/19/2025 11:30 AM ESTEducation [facility] [place] [facility] [address] [place], [place] [phone] Cristina Escalante, LAPEL STITCHER [address] [facility] [place] [address] 04/05/2026 10:00 AM ESTOffice Visit [facility] [address] [place] [phone] Amalia Cheng, PA [address] [place] [address] documented as of this encounter Visit Diagnoses Not on filedocumented in this encounter Additional Health Concerns AssessmentNoted TimePHQ-9 Depression Total Score: 9:10 AM EDT documented as of this encounter Care Teams Team MemberRelationshipSpecialtyStart DateEnd Date Jose Putnam DO [address] [address] PCP - GeneralFamily Medicine11/09/22 Jeanine Rao, CURLY [address] [place], [place] [phone] Nurse PractitionerFamily Medicine11/09/22documented as of this encounter
--- OUTSIDE RECORDS SUMMARY | 2025-04-23 13:24 | XMS_ITS | Encounter Summary ---
Author Organization [facility] Address [address] [place] [address] Care Team Providers Care Service Operations Manager Name Role Phone IndyJose yu Primary Care Provider +1- [phone] Jeanine Rao FIBERGLASS FABRICATOR Unavailable Encounter Details DateTypeDepartmentCare Team (Latest Contact Info)Gykjxtbqvos58/10/2025Results [facility] [place] [facility] [address] [place] [address] Jeanine Rao, FIBERGLASS FABRICATOR [address] [place] [address] [place] Social History Tobacco UseTypesPacks/DayYears UsedDateSmoking Tobacco: NeverSmokeless [...] times a week01/22/2024How often do you attend evangelical or confucianism services?More than 4 times per year4Do you belong to any clubs or organizations such as evangelical groups, unions, fraternal or athletic groups, or [...] heating?Somewhat hard 01/22/2024HQ-2AnswerDate RecordedPatient Health Questionnaire-2 Score2 03/23/2025[facility] [place] of Occupational Health - Occupational Stress QuestionnaireAnswerDate [...] were you homeless or living in a fdc (including now)? No01/22/2024CommentsNoSex and Gender InformationValueDate RecordedSex Assigned at XcynhLwmyki77/16/2023 9:54 AM EDTLegal PkdNfkosn40/15/2023 6:42 PM EDTGender CxljdyhcOaigqo01/15/2023 6:42 PM EDTSexual OrientationNot on file documented as of this encounter Plan of Treatment DateTypeDepartmentCare Team (Latest Contact Info)Rbvimdxxhzd61/01/2025 9:00 AM ESTOffice Visit [facility] [address] [place] [phone] Jeanine Rao NP [address] [place] [address] 05/17/2025 2:20 PM ESTOffice Visit [facility] [address] [place] [address] Jamie Schwartz MD [address] [place] [address] 05/19/2025 11:30 AM ESTEducation [facility] [place] [facility] [address] [place] [phone] Cristina Escalante, FIBERGLASS FABRICATOR [address] [place] [address] 04/05/2026 10:00 AM ESTOffice Visit [facility] [address] [place] [phone] Amalia Cheng, PA [address] [place], [place] [phone] documented as of this encounter Visit Diagnoses Not on filedocumented in this encounter Additional Health Concerns AssessmentNoted TimePHQ-9 Depression Total Score: 9:10 AM EDT documented as of this encounter Care Teams Team MemberRelationshipSpecialtyStart DateEnd Date Jose Putnam DO [address] [place], [place] [address] PCP - GeneralFamily Medicine11/09/22 Jeanine Rao NP [address] [place] [address] Nurse PractitionerFamily Medicine11/09/22documented as of this encounter
--- OUTSIDE RECORDS SUMMARY | 2025-04-23 13:24 | XMS_ITS | Encounter Summary ---
Author Organization [facility] Address [address] [place] [address] Care Team Providers Care Ironworker Machine Operator Name Role Phone IndyJose ferrell Ventura MONROE Primary Care Provider [phone] Jeanine Rao NEEDLE PUNCH OPERATOR Unavailable Encounter Details DateTypeDepartmentCare Team (Latest Contact Info)Gvqalebitjl09/10/2025linisync Result Encounter [facility] Department Unsolicited Jeanine Rao, NEEDLE PUNCH OPERATOR [address] [place] [address] Social History Tobacco UseTypesPacks/DayYears UsedDateSmoking [...] times a week01/22/2024How often do you attend religious or oriental orthodox services?More than 4 times per year4Do you belong to any clubs or organizations such as religious groups, unions, fraternal or athletic groups, or [...] heating?Somewhat hard 01/22/2024HQ-2AnswerDate RecordedPatient Health Questionnaire-2 Score2 03/23/2025[facility] [place] [facility] - Occupational Stress QuestionnaireAnswerDate [...] Times Moved in the Last YearNot on file4At any time in the past 12 months, were you homeless or living in a snf (including now)? No01/22/2024CommentsNoSex and Gender InformationValueDate RecordedSex Assigned at QedfoPpdmnn55/16/2023 9:54 AM EDTLegal PjfJuxylf14/15/2023 6:42 PM EDTGender LipxyvtkUqdrgi31/15/2023 6:42 PM EDTSexual OrientationNot on file documented as of this encounter Plan of Treatment DateTypeDepartmentCare Team (Latest Contact Info)Fjdzrqzkfgk33/01/2025 9:00 AM ESTOffice Visit [facility] [address] [place], [place] [phone] Jeanine Rao, NEEDLE PUNCH OPERATOR [address] [place], [place] [phone] 05/17/2025 2:20 PM ESTOffice Visit [facility] [address] [place] [address] Jamie Schwartz MD [address] [place] [address] 05/19/2025 11:30 AM ESTEducation [facility] [address] [place] [phone] Cristina Escalante, NEEDLE PUNCH OPERATOR [address] [place] [address] 04/05/2026 10:00 AM ESTOffice Visit [facility] [address] [phone] Amalia Cheng, PA [address] [place] [address] documented as of this encounter Procedures Procedure NamePriorityDate/TimeAssociated DiagnosisCommentsFL UGI106/12/2024 11:20 AM EST documented in this encounter Results * [place] UGI (04/12/2025 11:20 AM [...] 04/12/25 Final result Procedure Note Radiology, Radiologist, MD - 04/12/2025 EXAMINATION: SINGLE CONTRAST UPPER GI [...] 04/12/25 Final result Authorizing ProviderResult TypeResult StatusGerri L Rine NPCLINISYNC IMAGING Final Result documented in this encounter Visit Diagnoses Not on filedocumented in this encounter Additional Health Concerns AssessmentNoted TimePHQ-9 Depression Total Score: 9:10 AM EDT documented as of this encounter Care Teams Team MemberRelationshipSpecialtyStart DateEnd Date Jose Putnam DO [address] [place] [address] PCP - GeneralFamily Medicine11/09/22 Jeanine Rao NP [address] [place] [address] Nurse PractitionerFamily Medicine11/09/22documented as of this encounter
--- OUTSIDE RECORDS SUMMARY | 2025-04-23 13:25 | XMS_ITS | CCD ---
Author Organization [facility] Care Team Providers Care Felting Machine Operator Name Role Phone RINE, JEANINE L Unavailable Unavailable KABOUR, AMEER Unavailable Unavailable AHMAD, SHOWKAT Unavailable Unavailable KAMIREDDY, ADIREDDY Unavailable Unavailable Rine, Jeanine L Primary Care Provider Rine, Jeanine L Primary Care Provider [phone] RINE, JEANINE L Primary Care Unavailable TANVIR, TYLER Referring Unavailable Jose Putnam DO Primary Care Provider Rine QUEBRACHO TANNER, Jeanine L Unavailable Rine PLASTICS FABRICATOR AND ASSEMBLER - QUEBRACHO TANNER, Jeanine L Primary Care Provider Rine MORNING NEWS PRODUCER, Jeanine Terra Primary Care Unavailable Rine MORNING NEWS PRODUCER, Jeanine Terra Referring Unavailable Dot Velez MD Attending Unavailable Rine MORNING NEWS PRODUCER, Jeanine Terra Primary Care Unavailable Mushtaq PLASTICS FABRICATOR AND ASSEMBLER-MORNING NEWS PRODUCERRossana Attending Unavaila ble Rine QUEBRACHO TANNER, Jeanine L Unavailable OSMAN GILMORE Attending Unavailable RINE, JEANINE L Attending Unavailable RINE, JEANINE L Attending Unavailable KALPANA, JAMIE F Attending Unavailable RINE, JEANINE L Referring Unavailable ALT, JUSTIN Attending Unavailable RINE, JEANINE L Attending Unavailable RINE, JEANINE L Attending Unavailable RINE, JEANINE L Referring Unavailable AMALIA FRANCIS Attending Unavailable ALT, JUSTIN Attending Unavailable RINE, JEANINE L Primary Care Unavailable RINE, JEANINE L Referring Unavailable RINE, JEANINE L Primary Care Unavailable RINE, JEANINE L Referring Unavailable RINE, JEANINE L Primary Care Unavailable RINE, JEANINE L Referring Unavailable RINE, JEANINE L Primary Care Unavailable JACKSON WIGGINS Admitting Unavailable JACKSON WIGGINS Attending Unavailable RINE, JEANINE L Primary Care Unavailable RINE, JEANINE L Referring Unavailable RINE, JEANINE L Primary Care Unavailable RINE, JEANINE L Referring Unavailable RINE, JEANINE L Primary Care Unavailable DEBORAH TEAGUE Referring Unavail able FAWN CONTRERAS Referring Unavailable RINE, JEANINE L Primary Care Unavailable RINE, JEANINE L Primary Care Unavailable RINE, JEANINE L Referring Unavailable Allergies Allergy ClassificationReported Allergen(s)Allergy TypeDate of OnsetReaction(s) FacilityUnclassified (20 sources)IodidesPropensity to adverse reactions to mrfw35-35-8523[facility] Work Phone: Unclassified (20 sources)Shellfish-Derived ProductsPropensity to adverse reactions to drug 79-60-2153[facility] (9 sources)SeafoodPropensity to adverse reactions to ebnu82-13-1646[facility] (20 sources)IodidesPropensity to adverse reactions to wlva18-85-9485MxlctODG [facility] Work Phone: (20 sources)Lisinopril; Translations: [lisinopril]Allergy to domlwebpu62-50-1498 [facility] (7 sources)LisinoprilDrug Tvowbja20-70-3103Ofcim, Other (See Comments)[facility] (14 sources)Shellfish Protein-Containing Drug ProductsDrug Evxdusbrhgr67-01-2509 [facility] (1 source)shell fish dye; Translations: [shell fish dye]Propensity to adverse reactions to food (disorder)[facility] Rep[facility] Medications Current Medications MedicationDrug Class(es)DatesSig (Normalized)Sig (Original)acetaminophen 325 mg oral tablet (1 source)Start: 07-03-0057mpia 4000 mg by mouth every twenty-four hours as avfoyc474 mg, Oral, EVERY 4 HOURS PRN, Starting on Melany 04/08/25 at 1356, Until Discontinued, Pain Mild (1-3) OR per patient request for pain score (4-10), Fever, Fever >100.5 F (38 C), Maximum dose of acetaminophen is 4000 mg from all sources in 24 hours., Recovery(Cath)acetaminophen 325 mg / HYDROcodone bitartrate 5 mg oral tablet (3 sources)Opioid AgonistStart: 04-07-2024 End: 29-74-6869MDUKNywbcdo-acetaminophen (Elsie) 5-325 MG tablet every 6 (six) hours 04/07/2024 06/08/2024 Discontinued (Therapy completed)acetaminophen 325 mg / oxyCODONE hydrochloride 5 mg oral tablet (10 sources)Opioid AgonistStart: 01-16-2024 End: 21-99-3701lwrWMDEVP-acetaminophen (Percocet) 5-325 MG tablet every 4 hours. 01/16/2024 06/08/2024 Discontinued (Therapy completed)alendronic acid 70 mg oral tablet (17 sources)BisphosphonateStart: 69-40-1537eywccmkbxlr (Fosamax) 70 MG tablet Take 70 mg by mouth every 7 (seven) days 02/08/2025 ActiveALPRAZolam 0.25 mg oral tablet (20 sources)BenzodiazepineALPRAZolam (Xanax) 0.25 MG tablet Indications: Anxiety Take 0.25 mg by mouth as needed at bedtime for anxiety ActiveamLODIPine 5 mg oral tablet (20 sources)Dihydropyridine Calcium Channel BlockerStart: 05-28-2023 End: 70-69-0147qsADJHAbly (Norvasc) 5 MG tablet Indications: Essential hypertension TAKE 1 TABLET EVERY MORNING 90tablet 3 06/09/2024 Activeamoxicillin 875 mg oral tablet (2 sources)Penicillin-class AntibacterialStart: 07-10-2024 End: 96-74-2517nqyt 1 tablet by mouth in the morningamoxicillin (Amoxil) 875 MG tablet Indications: Acute non-recurrent maxillary sinusitis Take 1 tablet (875 mg) by mouth in the morning and 1 tablet (875 mg) before bedtime. Do all this for 7 days. 14tablet 07/10/2024 07/17/2024 ActiveARIPiprazole 5 mg oral tablet (20 sources)Atypical AntipsychoticStart: 26-77-9536hgno 1 tablet by mouth once dailyARIPiprazole (Abilify) 5 MG tablet Take 5 mg by mouth Daily 12/31/2022 Activeascorbic acid 500 mg oral capsule (20 sources)Vitamin CAscorbic Acid (Vitamin C) 500 MG capsule Indications: Wellness examination 1 (one) time each day atthe same time ActiveAscorbic Acid (VITAMIN C) 500 MG CAPS every 24 hours Activeatorvastatin 10 mg oral tablet (20 sources)HMG-CoA Reductase InhibitorStart: 27-39-3222frrdhevhhkva (Lipitor) 10 MG tablet Indications: Pure hypercholesterolemia TAKE 1 TABLET IN THE MORNING 90 tablet 1 03/25/2024 ActiveStart: 11-19-2023 End: 98-61-5476uwrx 0.5 tablet by mouth once dailyatorvastatin (Lipitor) 10 MG tablet Indications: Pure hypercholesterolemia (CMS/HCC) Take 0.5 tablets (5 mg) by mouth Daily 11/19/2023 03/25/2024 Discontinuedazithromycin 250 mg oral tablet (5 sources)Macrolide AntimicrobialStart: 02-16-2025 End: 87-54-0059mmoh 2 tablets by mouth once daily, then take 1 tablet by mouth once dailyazithromycin (Zithromax) 250 MG tablet Indications: Acute upper respiratory infection Take 2 tablets (500 mg) by mouth Daily for 1 day, THEN 1 tablet (250 mg) Daily for 4 days. 6 tablet 02/17/2025 02/22/2025 ActiveB Complex Vitamins (B COMPLEX 1 PO) (20 sources)B Complex Vitamins (B COMPLEX 1 PO) Indications: Wellness examination ActiveB Complex Vitamins (B COMPLEX 1 PO) Indications: Wellness examination as directed Orally Activebisoprolol fumarate 10 mg oral tablet (20 sources)beta-Adrenergic BlockerStart: 05-28-2023 End: 33-46-2588fqtkgqgnzi (Zebeta) 10 MG tablet Indications: Essential hypertension TAKE 1 TABLET IN THE MORNING 90 tablet 3 06/09/2024 ActiveBlood Glucose Monitoring Suppl (FreeStyle Lite) w/Device kit (20 sources)Start: 11-20-2023 End: 82-32-6963Bufbg Glucose Monitoring Suppl (FreeStyle Lite) w/Device kit USE DIRECTED 11/20/2023 09/14/2024 Discontinued (Therapy completed)Start: 71-39-9648Kcmmq Glucose Monitoring Suppl (FreeStyle Lite) w/Device kit USE DIRECTED 11/20/2023 Activecephalexin 500 mg oral capsule (3 sources)Cephalosporin AntibacterialStart: 01-16-2024 End: 38-67-6164baxb 1 capsule by mouth in the morning, then take 1 capsule by mouth in the evening, then take 1 capsule by mouth at bedtimecephalexin (Keflex) 500 MG capsule Take 500 mg by mouth in the morning and 500 mg in the evening and 500 mg before bedtime. 01/16/2024 01/30/2024 Activechlorthalidone 50 mg oral tablet (20 sources)Thiazide-like DiureticStart: 05-28-2023 End: 15-47-8919chxvvmpvvjdosy (Hygroton) 50 MG tablet Indications: Essential hypertension TAKE 1 TABLET EVERY MORNINGWITH FOOD 90 tablet 3 06/09/2024 Active Continuous Glucose Sensor (Dexcom G7 Sensor) misc (20 sources)Start: 56-40-3185Pzszcpwmac Glucose Sensor (Dexcom G7 Sensor) misc Indications: Type 2 diabetes mellitus with hyperglycemia, with long-term current use of insulin (HCC) USE DIRECTED AND CHANGE EVERY 14 DAYS 2 each11 11/17/2024 ActiveStart: 11-17-2024 End: 39-87-4619Lzkltichpg Glucose Sensor (Dexcom G7 Sensor) misc Indications: Type 2 diabetes mellitus with hyperglycemia, with long-term current use of insulin (HCC) 1 Units every 14 (fourteen) days 2 each 11/17/2024 11/17/2024 DiscontinuedStart: 44-53-1086Yzsqwlwdxc Glucose Sensor (Dexcom G7 Sensor) misc Indications: Type 2 diabetes mellitus with hyperglycemia, with long-term current use of insulin (HCC) 1 Units every 14 (fourteen) days 2 each 11/17/2024 ActiveStart: 11-13-2024 End: 91-86-0767Btseswutfj Glucose Sensor (Dexcom G7 Sensor) misc Indications: Type 2 diabetes mellitus with hyperglycemia, with long-term current use of insulin (HCC) 1 Units every 14 (fourteen) days 2 each 11/13/2024 11/17/2024 Discontinued (Reorder)Start: 03-16-2024 End: 94-10-1718Dzalwqkekw Glucose Sensor (Dexcom G7 Sensor) misc Indications: Type 2 diabetes mellitus without complication, without long-term current use of insulin 1 Units every 14 (fourteen) days 2 each 03/16/2024 09/14/2024 Discontinued (Therapy completed)Start: 42-13-9792Xuinfjfctq Glucose Sensor (Dexcom G7 Sensor) misc Indications: Type 2 diabetes mellitus without comp lication, without long-term current use of insulin 1 Units every 14 (fourteen) days 2 each 03/16/2024 ActiveStart: 24-30-3650Ouyqftmdgg Glucose Sensor (Dexcom G7 Sensor[place] [facility] [place]: Type 2 diabetes mellitus without comp lication, without long-term current use of insulin (CMS/HCC) 1 Units every 14 (fourteen) days 2 each 03/16/2024 ActiveStart: 18-40-1921Vlgwzrvnts Glucose Sensor (Dexcom G7 Sensor[place] [facility]: Type 2 diabetes mellitus without complication, without long-term current use of insulin (CMS/HCC) 1 Units every 14 (fourteen) days 2 each 03/06/2024 Activedextromethorphan hydrobromide 3 mg/ml / promethazine hydrochloride 1.25 mg/ml oral solution (6 sources)Phenothiazine, Uncompetitive H-oqisym-L-aspartate Receptor Antagonist, Sigma-1 AgonistStart: 07-10-2024 End: 43-53-5856uwaxrazhqcpi-dextromethorphan (Phenergan-DM) 6.25-15 MG/5ML syrup Indications: Acute non-recurrent maxillary sinusitis Take 5 mL by mouth every 4 (four) hours if needed for cough 240 mL 07/10/2024 09/14/2024 Discontinued (Therapy completed)DULoxetine 60 mg delayed release oral capsule (20 sources)Serotonin and Norepinephrine Reuptake Inhibitortake 1 capsule by mouth once dailyDULoxetine (Cymbalta) [address] capsule Indications: Degenerative cervical disc Take 60 mg by mouth Daily Activeempagliflozin 25 mg oral tablet (20 sources)Sodium-Glucose Cotransporter 2 InhibitorStart: 03-06-2024 End: 79-25-5316lukd 1 tablet by mouth once dailyJardiance 25 MG Indications: Type 2 diabetes mellitus without complication, without long-term current use of insulin ([facility]) TAKE 1 TABLET BY MOUTH EVERY DAY 30 tablet 03/08/2025 Active Start: 11-19-2023 End: 68-30-3730xepc 1 tablet by mouth once dailyempagliflozin (Jardiance) 10 MG Indications: Type 2 diabetes mellitus without complication, withoutlong-term current use of insulin (CMS/HCC) Take 1 tablet (10 mg) by mouth Daily 30 tablet 11 01/22/2024 01/21/2025 Activeescitalopram 10 mg oral tablet (20 sources)Serotonin Reuptake InhibitorStart: 33-95-4832rnyg 1 tablet by mouth once dailyescitalopram (Lexapro) 10 MG tablet Take 10 mg by mouth Daily 03/13/2024 Activelevothyroxine sodium 0.1 mg oral tablet (20 sources)l-ThyroxineStart: 12-12-2023 End: 81-37-6773Xvhycfavs 100 MCG tablet Indications: Acquired hypothyroidism TAKE 1 TABLET IN THE MORNING BEFORE AMEAL 90 tablet 1 11/30/2024 Activetake 1 tablet by mouth once dailylevothyroxine (SYNTHROID) 88 MCG tablet Take 1 tablet by mouth daily Suspendedlisinopril 20 mg oral tablet (3 sources)Angiotensin Converting Enzyme Inhibitortake 1 tablet by mouth once dailylisinopril (PRINIVIL;ZESTRIL) 20 MG tablet Take 20 mg by mouth daily 0 Activelosartan potassium 50 mg oral tablet (20 sources)Angiotensin 2 Receptor BlockerStart: 28-71-3783rksb 0.5 tablet by mouth once dailylosartan (Cozaar) 50 MG tablet Indications: Type 2 diabetes mellitus without complication, without long-term current use of insulin (HCC) TAKE 0.5 TABLETS BY MOUTH DAILY. 45 tablet 1 04/06/2025 ActiveStart: 10-15-2024 End: 39-78-6924jbux 1 tablet by mouth once dailylosartan (Cozaar) 50 MG tablet Indications: Type 2 diabetes mellitus without complication, without long-term current use of insulin (HCC) TAKE 1 TABLET BY MOUTH EVERY DAY 90 tablet 1 01/10/2025 ActiveStart: 01-22-2024 End: 41-12-0280jkfi 0.5 tablet by mouth once dailylosartan (Cozaar) 50 MG tablet Indications: Type 2 diabetes mellitus without complication, without long-term current use of insulin (HCC) TAKE 0.5 TABLETS BY MOUTH DAILY. 45 tablet 1 04/06/2025 ActiveStart: 05-28-2023 End: 77-20-1330mumm 1 tablet by mouth once dailylosartan (COZAAR) 100 MG tablet Take 1 tablet by mouth daily 05/28/2023 Suspendedmeloxicam 15 mg oral tablet (20 sources)Nonsteroidal Anti-inflammatory DrugStart: 05-28-2023 End: 99-46-6762qmmpxibfs (Mobic) 15 MG tablet Indications: Degenerative cervical disc TAKE 1 TABLET IN THE FQVKEMP49 tablet 3 06/09/2024 Bvxtzu94 hr metFORMIN hydrochloride 500 mg extended release oral tablet (20 sources)BiguanideStart: 56-45-5947jvwSARJXG XR (Glucophage-XR) 500 MG 24 hr tablet Indications: Type 2 diabetes mellitus without complication, without long- term current use of insulin (HCC) TAKE 2 TABLETS EVERY MORNING AND 2 TABLETS B EFORE BEDTIME 360 tablet 3 06/09/2024 ActiveStart: 05-28-2023 End: 79-61-3636kany 2 tablets by mouth every twenty-four hours in the morning metFORMIN XR (Glucophage-XR) 500 MG 24 hr tablet Indications: Type 2 diabetes mellitus without complication, without long-term current use of insulin (CMS/HCC) Take 2 tablets (1,000 mg) by mouth in the morning and 2 tablets (1,000 mg) before bedtime. 360 tablet 3 05/28/2023 06/09/2024 Discontinuedtake 1 tablet by mouth twice daily at mealtime, then take 2 tablets by mouth twice daily metFORMIN (GLUCOPHAGE) 500 MG tablet Take 1 tablet by mouth 2 times daily (with meals) Take two tablets by mouth two times daily Suspendedtake 2 tablets by mouth twice daily at mealtimemetFORMIN (GLUCOPHAGE) 500 MG tablet Take 500 mg by mouth 2 times daily (with meals) Take two tablets by mouth two times daily 0 Activemontelukast 10 mg oral tablet (20 sources)Leukotriene Receptor AntagonistStart: 05-28-2023 End: 48-96-0531sgszlgaspht (Singulair) 10 MG tablet Indications: Environmental and seasonal allergies TAKE 1 TABLET IN THE MORNING 90 tablet 3 03/25/2024 Activenitroglycerin 0.4 mg sublingual tablet (1 source)Nitrate VasodilatorStart: .4 mg, SubLINGual, EVERY 5 MIN PRN, 3 doses, Starting on Melany 04/08/25 at 1243, Until Discontinued, Chest pain, Place 1 tablet under tongue upon chest pain, wait 5 minutes and may repeat up to 3 dosesin 15 minutes. Do not crush or break., Pre-Procedure(Cath)ondansetron 4 mg oral tablet (3 sources)Serotonin-3 Receptor AntagonistStart: 01-16-2024 End: 24-79-3260yrtc 1 tablet by mouth every six hours as needed for nausea ondansetron (Zofran) 4 MG tablet Take 1 tablet by mouth every 6 (six) hours if needed for nausea 01/16/2024 01/27/2024 ActiveOZEMPIC, 0.25 OR 0.5 MG/DOSE, 2 MG/3ML SOPN (2 sources)Start: 45-29-0140VBNOTMP, 0.25 OR 0.5 MG/DOSE, 2 MG/3ML SOPN INJECT 0.25 MG SUBCUTANEOUSLY WEEKLY 03/10/2024 Activepioglitazone 15 mg oral tablet (12 sources)Peroxisome Proliferator Receptor alpha Agonist, Peroxisome Proliferator Receptor gamma Agonist, ThiazolidinedioneStart: 03-02-2025 End: 13-36-0202yzip 1 tablet by mouth once dailypioglitazone (Actos) 15 MG tablet Indications: Type 2 diabetes mellitus with hyperglycemia, withoutlong- term current use of insulin (HCC) Take 1 tablet (15 mg) by mouth Daily 90 tablet 3 03/02/2025 03/02/2026 ActivepredniSONE 10 mg oral tablet (2 sources)Start: 07-10-2024 End: 23-60-5569wbeu 4 tablets by mouth once daily, then take 3 tablets by mouth once daily, then take 2 tablets bymouth once daily, then take 1 tablet by mouth once dailypredniSONE (Deltasone) 10 MG tablet Indications: Acute non-recurrent maxillary sinusitis Take 4 tablets (40 mg) by mouth Daily for 2 days, THEN 3 tablets (30 mg) Daily for 2 days, THEN 2 tablets (20 mg) Daily for 2 days, THEN 1 tablet (10 mg) Daily for 2 days. 20 tablet 07/10/2024 07/18/2024 Active1 mg dose 1.5 ml semaglutide 1.34 mg/ml pen injector (4 sources)Start: 05-04-2024 End: 14-72-0662Hrothifiykq, 1 MG/DOSE, (OZEMPIC, 1 MG/DOSE,) 2 MG/1.5ML SOPN Inject 1 mg into the skin once a week05/04/2024 Activesemaglutide (Ozempic, 1 MG/DOSE,) 4 MG/3ML solution pen-injector (7 sources)Start: 01-01-2025 End: 85-74-1207hrxpot 1 mg by subcutaneous injection every weeksemaglutide (Ozempic, 1 MG/DOSE,) 4 MG/3ML solution pen-injector Indications: Type 2 diabetes mellitus with hyperglycemia, with long-term current use of insulin (HCC) Inject 1 mg under the skin 1 (one) time per week 1 each 5 01/01/2025 01/22/2025 DiscontinuedStart: 09-43-6673yyaovq 1 mg by subcutaneous injection every weeksemaglutide (Ozempic, 1 MG/DOSE,) 4 MG/3ML solution pen-injector Indications: Type 2 diabetes mellitus with hyperglycemia, with long-term current use of insulin (HCC) Inject 1 mg under the skin 1 (one) time per week 1 each 5 01/01/2025 ActiveStart: 05-05-2024 End: 81-81-8975ducsdp 1 mg by subcutaneous injection every weeksemaglutide (Ozempic, 1 MG/DOSE,) 4 MG/3ML solution pen-injector Indications: Type 2 diabetes mellitus without complication, without long-term current use of insulin (CMS/HCC) Inject 1 mg under the skin 1 (one) time per week 3 mL 4 05/05/2024 06/07/2024 DiscontinuedStart: 69-58-0730bwdxav 1 mg by subcutaneous injection every weeksemaglutide (Ozempic, 1 MG/DOSE,) 4 MG/3ML solution pen-injector Indications: Type 2 diabetes mellitus without complication, without long-term current use of insulin (CMS/HCC) Inject 1 mg under the skin 1 (one) time per week 3 mL 4 05/05/2024 ActiveSemaglutide, 2 MG/DOSE, (Ozempic, 2 MG/DOSE,) 8 MG/3ML solution pen-injector (20 sources)Start: 98-35-6202kfycnh 2 mg by subcutaneous injection every week Semaglutide, 2 MG/DOSE, (Ozempic, 2 MG/DOSE,) 8 MG/3ML solution pen-injector Indications: Type 2 diabetes mellitus with hyperglycemia, with long-term current use of insulin (HCC) Inject 2 mg under the skin 1 (one) time per week 3 mL 5 03/16/2025 ActiveStart: 01-22-2025 End: 21-71-8302qieued 2 mg by subcutaneous injection every weekSemaglutide, 2 MG/DOSE, (Ozempic, 2 MG/DOSE,) 8 MG/3ML solution pen-injector Indications: Type 2 diabetes mellitus with hyperglycemia, with long-term current use of insulin (HCC) Inject 2 mg under the skin 1 (one) time per week 3 mL 01/22/2025 03/16/2025 Discontinued (Reorder)Start: 38-18-8434ojbmum 2 mg by subcutaneous injection every weekSemaglutide, 2 MG/DOSE, (Ozempic, 2 MG/DOSE,) 8 MG/3ML solution pen-injector Indications: Type 2 diabetes mellitus with hyperglycemia, with long-term current use of insulin (HCC) Inject 2 mg under the skin 1 (one) time per week 3 mL 01/22/2025 ActiveStart: 11-22-2024 End: 74-95-0355fncexh 2 mg by subcutaneous injection every weekSemaglutide, 2 MG/DOSE, (Ozempic, 2 MG/DOSE,) 8 MG/3ML solution pen-injector Indications: Type 2 diabetes mellitus without complication, without long-term current use of insulin (HCC) INJECT 2 MG SUBCUTANEOUSLY WEEKLY 3 mL 11/22/2024 12/14/2024 Discontinued (Therapy completed)Start: 64-00-0098zxhhnx 2 mg by subcutaneous injection every weekSemaglutide, 2 MG/DOSE, (Ozempic, 2 MG/DOSE,) 8 MG/3ML solution pen-injector Indications: Type 2 diabetes mellitus without complication, without long-term current use of insulin (HCC) INJECT 2 MG SUBC UTANEOUSLY WEEKLY 3 mL 5 11/22/2024 ActiveStart: 06-08-2024 End: 39-80-9791nuyrzh 2 mg by subcutaneous injection every weekSemaglutide, 2 MG/DOSE, (Ozempic, 2 MG/DOSE,) 8 MG/3ML solution pen-injector Indications: Type 2 diabetes mellitus without complication, without long-term current use of insulin (HCC) Inject 2 mg under the skin 1 (one) time per week 3 mL 5 06/08/2024 11/22/2024 DiscontinuedStart: 68-92-0455gahuur 2 mg by subcutaneous injection every weekSemaglutide, 2 MG/DOSE, (Ozempic, 2 MG/DOSE,) 8 MG/3ML solution pen- injector Indications: Type 2 diabetes mellitus without complication, without long-term current use of insulin (HCC) Inject 2 mg under the skin 1 (one) time per week 3 mL 06/08/2024 ActiveStart: 87-86-6148zofipw 2 mg by subcutaneous injection every weekSemaglutide, 2 MG/DOSE, (Ozempic, 2 MG/DOSE,) 8 MG/3ML solution pen-injector Indications: Type 2 diabetes mellitus without complication, without long-term current use of insulin Inject 2 mg under theskin 1 (one) time per week 3 mL 06/08/2024 ActiveStart: 13-42-5919gbsjjv 2 mg by subcutaneous injection every weekSemaglutide, 2 MG/DOSE, (Ozempic, 2 MG/DOSE,) 8 MG/3ML solution pen-injector Indications: Type 2 diabetes mellitus without complication, without long-term current use of insulin (CMS/HCC) Inject 2 mg under the skin 1 (one) time per week 3 mL 06/08/2024 Active5 ml sodium chloride 9 mg/ml injection (6 sources)Start: -40 mL, IntraVENous, EVERY 12 HOURS SCHEDULED (2 times per day), First dose on Melany 04/08/25 at 2100, Until Discontinued, For Line Patency: Peripheral IV = 5 mL; Midline or Central Line = 10 mL/lumen.If following IV push medication, administer flush at same rate as the IV push. Flush volume is determined by type of infusion therapy being given. For non- viscous solutions use: Peripheral IV = 5 mL Midline or Central Line = 10 mL/lumen For viscous solutions (i.e. blood components, parenteral nutrition, contrast media, or after obtaining blood sample) use: Peripheral IV = 10 mL Midline or CentralLine = 20 mL/lumen, Recovery(Cath)Start: -40 mL, IntraVENous, EVERY 12 HOURS SCHEDULED (2 times per day), First dose on Melany 04/08/25 at 2100, Until Discontinued, For Line Patency: Peripheral IV = 5 mL; Midline or Central Line = 10 mL/lumen.If following IV push medication, administer flush at same rate as the IV push. Flush volume is determined by type of infusion therapy being given. For non-viscous solutions use: Peripheral IV = 5 mL Midline or Central Line = 10 mL/lumen For viscous solutions (i.e. blood components, parenteral nutrition, contrast media, or after obtaining blood sample) use: Peripheral IV = 10 mL Midline or CentralLine = 20 mL/lumen, Pre-Procedure(Cath)Start: 20-80-7892JueapSZWffv, at 50 mL/hr, CONTINUOUS, Starting on Melany 04/08/25 at 1415, -Rate of IV fluid administration during recovery will be based on the patient's LVEDP obtained during the procedure using the following formula: 1. LVEDP 18 = 1.5cc/kg/hr If no LVEDP obtained, ask health/safety job titles for fluid rate and volume to be given in recovery. -Fluids will be infused over a minimum of 2 hours. Rate shall notexceed 500 cc/hr. Ask health/safety job titles for fluid volume total to be infused. -If GFR is less than 30, fl uids will be infused over a minimum of 3 hours. -In case of reduced EF, CHF, etc., consult health/safety job titles for rate and volume to be administered., Recovery(Cath)Start: 98-96-3002kvwc 20 mL intravenously every hourIntraVENous, at 5-250 mL/hr, PRN, if patient receiving piggyback infusions and maintenance fluids are not ordered OR KVO fluids to protect IV site / prevent frequent line interruptions/ long duration, Starting on Melany 04/08/25 at 1243, For piggyback infusion, administer at same rate as piggyback for a total of 25 mL. Enter 25 mL into dose field and piggyback rate into rate field of order. If piggyback is infusing at a rate less than 100 mL/hr, enter 25 mL into dose field and 100 mL/hr into rate field of order. For KVO fluids, enter rate of 20 mL/hr or less into rate field of order., Pre-Procedure(Cath)Start: -40 mL, IntraVENous, PRN, Starting on Melany 04/08/25 at 1356, Until Discontinued, Line Care, After every IV line use, For Line Patency: Peripheral IV = 5 mL; Midline or Central Line = 10 mL/lumen. If following IV push medication, administer flush at same rate as the IV push. Flush volume is determined by type of infusion therapy being given. For non-viscous solutions use: Peripheral IV = 5 mL Midline or Central Line = 10 mL/lumen For viscous solutions (i.e. blood components, parenteral nutrition,contrast media, or after obtaining blood sample) use: Peripheral IV = 10 mL Midline or Central Line= 20 mL/lumen, Recovery(Cath) sulfacetamide sodium 100 mg/ml ophthalmic solution (14 sources)Sulfonamide AntibacterialStart: 06-15-2023 End: 47-22-8130ixeielnjigdgi (Bleph-10) 10 % ophthalmic solution 2 drops 06/15/2023 09/14/2024 Discontinued (Therapy completed)therapeutic multivitamin- minerals (Theragran-M) tablet (20 sources)take 1 tablet by mouth once dailytherapeutic multivitamin-minerals (Theragran-M) tablet Take 1 tablet by mouth Daily Activezinc gluconate 50 mg oral tablet (20 sources)take 1 tablet by mouth once dailyzinc gluconate 50 MG tablet Indications: Wellness examination Take 50 mg by mouth Daily Active Completed/Discontinued Medications MedicationDrug Class(es)DatesSig (Normalized)Sig (Original)aspirin 325 mg oral tablet (20 sources)Platelet Aggregation Inhibitor, Nonsteroidal Anti-inflammatory Drug Start: 04-07-2024 End: 74-35-1111gzbz 1 tablet by mouth every twelve hoursaspirin 325 MG tablet Take 325 mg by mouth every 12 (twelve) hours 04/07/2024 02/16/2025 Discontinued (Therapy completed)Start: 01-16-2024 End: 60-93-0540dgjv 1 tablet by mouth in the morningCVS Aspirin 325 MG tablet Take 325 mg by mouth in the morning and 325 mg before bedtime. 01/16/2024 03/06/2024 Discontinued (Therapy completed)Start: 05-10-2023 End: 31-92-8893usdj 1 tablet by mouth in the morningaspirin 81 MG EC tablet Indications: Type 2 diabetes mellitus without complication, without long-term current use of insulin (CMS/HCC) Take 1 tablet (81 mg) by mouth in the morning. 30 tablet 11 05/10/2023 05/09/2024 Activeb complex vitamins capsule (10 sources)take 1 capsule by mouth once dailyb complex vitamins capsule Take 1 capsule by mouth daily Suspendedtake 1 capsule by mouth once dailyb complex vitamins capsule Take 1 capsule by mouth daily Activetake 1 capsule by mouth once dailyb complex vitamins capsule Take 1 capsule by mouth daily. 0 Active calcium carbonate 500 mg oral tablet (20 sources)take 1 capsule by mouth once dailycalcium carbonate (OYSTER SHELL CALCIUM 500 MG) 1250 (500 Ca) MG tablet Take 1 capsule by mouth daily Suspended End: 10-84-6037oqzp 1 capsule by mouth in the morningcalcium carbonate (Os-Wilfredo) 1250 (500 Ca) MG tablet Indications: Wellness examination Take 1 capsuleby mouth in the morning. 09/14/2024 Discontinued (Therapy completed)Calcium Carbonate / Vitamin D (10 sources)take 1 tablet by mouth once dailyCalcium Carbonate-Vitamin D (CALCIUM + D PO) Take 1 tablet by mouth daily Suspendedtake 1 tablet by mouth once dailyCalcium Carbonate-Vitamin D (CALCIUM + D PO) Take 1 tablet by mouth daily Activetake 1 tablet by mouth once dailyCalcium Carbonate-Vitamin D (CALCIUM + D PO) Take 1 tablet by mouth daily 0 Active1 ml diphenhydrAMINE hydrochloride 50 mg/ml cartridge (4 sources)Histamine-1 Receptor AntagonistStart: 04-08-2025 End: 43-89-036823 mg, IntraVENous, ONCE, 1 dose, On Melany 04/08/25 at 1315, IV Push at rate not to exceed 25 mg/min.,Pre-Procedure(Cath)Start: 66-03-4566cfyy 1 capsule by mouth every six hours as neededdiphenhydrAMINE (BENADRYL) 50 MG capsule Take 1 capsule by mouth every 6 hours as needed for Itching 20 capsule 0 07/23/2017 Activeestradiol 0.1 mg/ml vaginal cream (20 sources)EstrogenStart: 38-40-0301mraqmuccy (ESTRACE VAGINAL) 0.1 MG/GM vaginal cream Place 1 g vaginally daily for 14 days Then twice weekly 42 g 2 12/15/2024 Suspendedestradiol (Estrace) 0.1 MG/GM vaginal cream PLACE 1 GRAM VAGINALLY DAILY FOR 14 DAYS THEN TWICE WEEKLY Activefamotidine (PEPCID) 20 MG/2ML 20 mg in sodium chloride (PF) 0.9 % 10 mL injection (1 source)Start: 04-08-2025 End: 60-87-0904pvez 10 mL intravenously once20 mg, IntraVENous, ONCE, On Melany 04/08/25 at 1315, For 1 dose, IV push over 2 minutes. Dilute with 10 mL NS., Pre-Procedure(Cath)fluconazole 100 mg oral tablet (20 sources)Azole AntifungalStart: 02-28-2024 End: 03-60-4407amup 1 tablet by mouth once dailyfluconazole (DIFLUCAN) 100 MG tablet Take 1 tablet by mouth daily 02/28/2024 SuspendedLORazepam 1 mg oral tablet (10 sources)Benzodiazepinetake 1 tablet by mouth once daily as needed for anxietyLORazepam (ATIVAN) 1 MG tablet Take 1 tablet by mouth nightly as needed for Anxiety. SuspendedmethylPREDNISolone sodium succ (SOLU-MEDROL) 125 mg in sterile water 2 mL injection (1 source)Start: 04-08-2025 End: 63-26-9023199 mg, IntraVENous, ONCE, On Melany 04/08/25 at 1315, For 1 dose, Reconstitute 125 mg vial with 2 mL diluent., Pre-Procedure(Cath)OZEMPIC, 1 MG/DOSE, 4 MG/3ML SOPN sc injection (7 sources)Start: 28-61-8775XCQEBMR, 1 MG/DOSE, 4 MG/3ML SOPN sc injection Inject 1 mg into the skin once a week 2 units weeklywill be switching to mounjaro 05/05/2024 SuspendedStart: 37-66-4428ZHWGULC, 1 MG/DOSE, 4 MG/3ML SOPN sc injection Inject 1 mg into the skin once a week 2 units weeklywill be switching to mounjaro 05/05/2024 ActiveStart: 86-67-6275ZCONPMB, 1 MG/DOSE, 4 MG/3ML SOPN sc injection Inject 1 mg into the skin once a week 05/05/2024 Active Ozempic, 2 MG/DOSE, 8 MG/3ML solution pen-injector (3 sources)Start: 10-29-2023 End: 51-97-1500Cccksfw, 2 MG/DOSE, 8 MG/3ML solution pen-injector Indications: Type 2 diabetes mellitus without complication, without long-term current use of insulin ([facility]/HCC) INJECT 2MG SUBCUTANEOUSLY ONCE WEEKLY(EVERY 7 DAYS) 9 mL 1 10/29/2023 01/22/2024 Discontinued (Therapy completed)Start: 66-49-5230Hsldlkv, 2 MG/DOSE, 8 MG/3ML solution pen-injector Indications: Type 2 diabetes mellitus without complication, without long-term current use of insulin (CMS/HCC) INJECT 2MG SUBCUTANEOUSLY ONCE WEEKLY(EVERY 7 DAYS) 9 mL 1 10/29/2023 Activeregadenoson (LEXISCAN) injection 0.4 mg (1 source)Start: 03-12-2025 End: 70-63-1345mvut 0.4 mg intravenously once as needed0.4 mg, IntraVENous, IMG ONCE PRN, 1 dose, Starting on Sat03/12/25 at 1023, Until Sat03/12/25 at 1031, OtherSemaglutide,0.25 or 0.5MG/DOS, (Ozempic, 0.25 or 0.5 MG/DOSE,) 2 MG/3ML solution pen-injector (9 sources)Start: 05-01-2024 End: 85-50-6418Nckffzimkhl,0.25 or 0.5MG/DOS, (Ozempic, 0.25 or 0.5 MG/DOSE,) 2 MG/3ML solution pen-injector Indications: Type 2 diabetes mellitus with hyperglycemia, with long-term current use of insulin (CMS/HCC)INJECT 0.25 MG SUBCUTANEOUSLY WEEKLY 2 mL 5 05/01/2024 05/04/2024 Discontinued (Therapy completed)Start: 79-42-3219Koorlqfrihf,0.25 or 0.5MG/DOS, (Ozempic, 0.25 or 0.5 MG/DOSE,) 2 MG/3ML solution pen-injector Indications: Type 2 diabetes mellitus with hyperglycemia, with long-term current use of insulin (CMS/HCC)INJECT 0.25 MG SUBCUTANEOUSLY WEEKLY 2 mL 5 05/01/2024 ActiveStart: 03-10-2024 End: 65-94-3466Lefmfovbjpd,0.25 or 0.5MG/DOS, (Ozempic, 0.25 or 0.5 MG/DOSE,) 2 MG/3ML solution pen-injector Indications: Type 2 diabetes mellitus with hyperglycemia, with long-term current use of insulin (CMS/[facility])Inject 0.25 mg under the skin 1 (one) time per week 3 mL 1 03/10/2024 05/01/2024 Discontinued Start: 18-74-1307Dkfvaqwamqj,0.25 or 0.5MG/DOS, (Ozempic, 0.25 or 0.5 MG/DOSE,) 2 MG/3ML solution pen-injector Indications: Type 2 diabetes mellitus with hyperglycemia, with long-term current use of insulin (CMS/[facility])Inject 0.25 mg under the skin 1 (one) time per week 3 mL 1 03/10/2024 Activetechnetium sestamibi (CARDIOLITE) injection 30 millicurie (2 sources)Start: 03-15-2025 End: 74-46-4343zjrs 1 dose intravenously once30 millicurie, IntraVENous, IMG ONCE PRN, 1 dose, Starting on Sat03/15/25 at 1256, Until Sat03/15/25 at 1244, OtherStart: 03-12-2025 End: 48-55-5677rwdv 1 dose intravenously once30 millicurie, IntraVENous, IMG ONCE PRN, 1 dose, Starting on Sat03/12/25 at 1024, Until Sat03/12/25 at 1017, Othertherapeutic multivitamin-minerals (THERAGRAN-M) tablet (10 sources)take 1 tablet by mouth once dailytherapeutic multivitamin-minerals (THERAGRAN-M) tablet Take 1 tablet by mouth daily Suspendedtake 1 tablet by mouth once dailytherapeutic multivitamin-minerals (THERAGRAN-M) tablet Take 1 tablet by mouth daily Activetake 1 tablet by mouth once dailytherapeutic multivitamin-minerals (THERAGRAN-M) tablet Take 1 tablet by mouth daily. 0 ActiveTirzepatide (Mounjaro) 2.5 MG/0.5ML solution auto-injector (2 sources)Start: 12-14-2024 End: 50-49-1125ymwwtn 2.5 mg by subcutaneous injection every weekTirzepatide (Mounjaro) 2.5 MG/0.5ML solution auto-injector Indications: Type 2 diabetes mellitus with hyperglycemia, with long-term current use of insulin ([facility]) Inject 2.5 mg under the skin 1 (one) time per week 2 mL 1 12/14/2024 01/01/2025 Discontinued (Cost of medication)Start: 18-96-0739vldryu 2.5 mg by subcutaneous injection every weekTirzepatide (Mounjaro) 2.5 MG/0.5ML solution auto-injector Indications: Type 2 diabetes mellitus with hyperglycemia, with long-term current use of insulin (HCC) Inject 2.5 mg under the skin 1 (one) time per week 2 mL 1 12/14/2024 ActivetraZODone hydrochloride 150 mg oral tablet (20 sources)Serotonin Reuptake InhibitorStart: 01-18-2025 End: 36-79-8400gjxm 0.5 tablet by mouth once daily at bedtimetraZODone (Desyrel) 150 MG tablet TAKE 1/2 TABLET BY MOUTH ONCE A DAY AT BEDTIME 01/18/2025 03/23/20 25 Discontinued (Therapy completed)take 1 tablet by mouth once dailytraZODone (DESYREL) 150 MG tablet Take 1 tablet by mouth nightly Suspended End: 49-84-2813homGDNbzc (Desyrel) 150 MG tablet Indications: Insomnia due to other mental disorder Take 75 mg by mouth as needed at bedtime 09/14/2024 Discontinued (Therapy completed) Problems Active Problems Problem ClassificationProblemDateDocumented DateEpisodic/ChronicAcquired foot deformities (20 sources)Toe joint rigid; Translations: [Hallux rigidus, left foot]Onset: 381182-12-2906BklohemNiqvjzf disorders (20 sources)Panic attack; Translations: [Panic disorder [episodic paroxysmal anxiety]]Onset: 07-20-2017 Resolved: 615329-00-9231EdqsrmlCivfrs (20 sources)Mild intermittent asthma; Translations: [Mild intermittent asthma, uncomplicated]Onset: 51-03-3874IlligmxClibdadp mellitus with complications (20 sources)Hyperglycemia due to type 2 diabetes mellitus; Translations: [Type 2 diabetes mellitus with hyperglycemia]Onset: 691800-96-9797AnwhoxhOavfnkve mellitus without complication (20 sources)Diabetes mellitus; Translations: [Type 2 diabetes mellitus without complications]Onset: 11-09-2022 Resolved: 940711-25-6485BypjrufFytodlxeo of lipid metabolism (20 sources)Pure hypercholesterolemia; Translations: [Pure hypercholesterolemia, unspecified]Onset: 510716-14-9746TbqnlypGypafckxb hypertension (20 sources)Hypertensive disorder; Translations: [Essential (primary) hypertension]Onset: 277110-15-2892ZddyonoEpbjbubmdloef symptoms and ill- defined conditions (2 sources)Dysuria; Translations: [Dysuria]31-94-0688XokustoyNmzdvcvyberzb mental health disorders (12 sources)Primary insomnia; Translations: [Primary insomnia]Onset: 11-09-2022 28-43-4570ZwtnwjvEjca disorders (20 sources)Severe major depression, single episode, without psychotic features; Translations: [Major depressive disorder, single episode, severe without psychotic features]Onset: 109970-24-3191QmpixjlYtqqvsq (1 source)Candidiasis of vagina; Translations: [Sandi vaginitis]02-28-2024 EpisodicNutritional deficiencies (20 sources)Vitamin D deficiency; Translations: [Vitamin D deficiency, unspecified]Onset: 896210-29-9018SmthuaqPycnrwqprofz (2 sources)Senile osteoporosis; Translations: [Age-related osteoporosis without current pathological fracture]Onset: 460190-71-1422JlebtanCnycx and unspecified benign neoplasm (3 sources)Melanocytic nevus of trunk; Translations: [Melanocytic nevi of trunk] 56-20-6298WpuhjeilSgjgz and unspecified benign neoplasm (1 source)Senile angioma; Translations: [Hemangioma of skin and subcutaneous tissue]84-46-7042MzhhhafzFrguv gastrointestinal disorders (2 sources)Dysphagia; Translations: [Dysphagia, unspecified]00-23-9146Aublrkni Other gastrointestinal disorders (1 source)Dysphagia, unspecified; Translations: [Dysphagia, unspecified]Onset: 63-76-9988FfmduhujYuump nutritional; endocrine; and metabolic disorders (20 sources)Obesity; Translations: [Obesity, unspecified]Onset: 11-09-2022 60-44-8129CscyfptCshpk nutritional; endocrine; and metabolic disorders (6 sources)Body mass index 30+ - obesity; Translations: [Body mass index (BMI) 38.0-38.9, adult]74-49-0480ZltqjqtTyzqa nutritional; endocrine; and metabolic disorders (4 sources)Obesity caused by energy imbalance; Translations: [Morbid (severe) obesity due to excess calories]83-69-1344BnzxgeeZrrdj nutritional; endocrine; and metabolic disorders (2 sources)Severe obesity; Translations: [Class 2 severe obesity due to excess calories with serious comorbidity and body mass index (BMI) of 39.0 to 39.9 in adult]90-23-3825NwxtrliSeequ screening for suspected conditions (not mental disorders or infectious disease) (20 sources)Cardiovascular stress test abnormal; Translations: [Abnormal result of other cardiovascular function study]Onset: 07-21-2017 Resolved: 012718-60-4362TtufcgdbBgvkf skin disorders (3 sources)Seborrheic keratosis; Translations: [Other seborrheic keratosis] 43-78-7921XbdpugxcZtqzx skin disorders (3 sources)Inflamed seborrheic keratosis; Translations: [Inflamed seborrheic keratosis]63-06-3416EvxkobloYbgpt upper respiratory disease (20 sources)Allergic disposition; Translations: [Other allergic rhinitis]Onset: 492032-71-9651EbuwxemNklbq upper respiratory infections (5 sources)Acute maxillary sinusitis; Translations: [Acute maxillary sinusitis, unspecified]40-69-7574RomgtesoCzanhhmc codes; unclassified (2 sources)Obstructive sleep apnea syndrome; Translations: [Obstructive sleep apnea (adult) (pediatric)]22-11-7404HdjattrFgnoozpx codes; unclassified (4 sources)Patient encounter status; Translations: [Encounter for procedure for purposes other than remedying health state, unspecified]57-57-1206Qzlylxnr Spondylosis; intervertebral disc disorders; other back problems (20 sources)Degeneration of cervical intervertebral disc; Translations: [Other cervical disc degeneration, unspecified cervical region]Onset: 11-09-2022 54-72-4136UnsrwasXgkyfdk disorders (20 sources)Acquired hypothyroidism; Translations: [Hypothyroidism, unspecified] Onset: hronic Past or Other Problems Problem ClassificationProblemDateDocumented DateEpisodic/ChronicCancer of cervix (2 sources)Cervicovaginal cytology: High grade squamous intraepithelial lesion or carcinoma; Translations: [High grade squamous intraepithelial lesion on cytologic smear of cervix (HGSIL)]Onset: 549693-35-0670Amhcpovn Immunizations and screening for infectious disease (6 sources)Immunization due; Translations: [Encounter for immunization]Onset: 627355-75-9049OenghgirVspu disorders (6 sources)Mood disordersOnset: 151028-79-9598Xmintpnvtoo chest pain (12 sources)Chest pain, unspecified; Translations: [Chest pain]Onset: 07-20-2017 Resolved: 126255-88-1215ExfyvgiuEdxzr circulatory disease (2 sources)Low blood pressure; Translations: [Other hypotension]01-22-2024 EpisodicResidual codes; unclassified (20 sources)Insomnia; Translations: [Insomnia, unspecified]Onset: 11-09-2022 39-52-6925Nqbqgpsf Results Test NameValueInterpretationReference RangeFacilityFL UGIon 04-12-2025 EXAMINATION: SINGLE CONTRAST UPPER GI SERIES 04/12/2025 [...] Distal esophagus is well distended with smooth contours and unremarkable mucosal pattern. No gastroesophageal reflux or significant hiatal hernia. Stomach is normal size and shape. Gastric rugal pattern unremarkable. Barium flows the pylorus into normal appearing duodenal bulb and sweep. IMPRESSION: Normal exam Interpreted by: Donta Melendez DO Signed by: Donta Melendez DO 04/12/25 Final resultMHPTRadiology, Radiologist, - 04/12/2025 EXAMINATION: SINGLE CONTRAST UPPER [...] Distal esophagus is well distended with smooth contours and unremarkable mucosal pattern. No gastroesophageal reflux or significant hiatal hernia. Stomach is normal size and shape. Gastric rugal pattern unremarkable. Barium flows the pylorus into normal appearing duodenal bulb and sweep. IMPRESSION: Normal exam Interpreted by: Donta Melendez DO Signed by: Donta Melendez DO 04/12/25 Final result [facility] UGIEXAMINATION: SINGLE CONTRAST UPPER GI SERIES 04/12/2025 HISTORY: [...] Distal esophagus is well distended with smooth contours and unremarkable mucosal pattern. No gastroesophageal reflux or significant hiatal hernia. Stomach is normal size and shape. Gastric rugal pattern unremarkable. Barium flows the pylorus into normal appearing duodenal bulb and sweep. IMPRESSION: Normal exam Interpreted by: Donta Melendez DO Signed by: Donta Melendez DO 04/12/25 Final resultNormalMerStamford HospitalRadiology Study observation (narrative) [facility] UGIOrdered By: Radiologist Radiology on 52-67-3124NHQXWright Memorial Hospital Work Phone: cardiac procedureon 80-90-5654Dkmd surface area Derived from formula2.11 m2[facility] Brief Post Operative Note: No significant coronary artery disease. Normal left ventricular end diastolic pressure (LVEDP). Continue standard risk factor modification as clinically indicated [...] Bleeding Risk Calculator Bleeding Risk points = 0.BSMH CV CPACS HEMOBon [facility] CenterRadiology Study observation (narrative)Darell [facility] Medical CenterCryotherapy, skin lesionon 55-80-8903ROUEWright Memorial HospitalLiixjvfnmw10-ioxgwaztmqoqzm D3 [Mass/Vol]on 46-91-580385- hydroxyvitamin D [Mass/Vol]53 ng/mL30 - 100 ng/mLNFulton Medical Center- FultonComment on above:Vitamin D Status 25-OH Vitamin D: Deficiency: <20 ng/mL Insufficiency: 20 - 29 ng/mL Optimal: > or = 30 ng/mL For 25-OH Vitamin D testing on patients on D2-supplementation and patients for whom quantitation of D2 and D3 fractions is required, the QuestAssureD(TM) 25-OH VIT D, (D2,D3), LC/MS/MS is recommended: order code 38849 (patients >2yrs). See Note 1 Note 1 For additional information, please refer to http://education.Tour Raiser/faq/TKZ176 (This link is being provided for informational/ educational purposes only.) Laboratory - Chemistry and Chemistry - challengeon 10-52-4812Svzu T4 [Mass/Vol] 1.4 ng/dL0.8 - 1.8 ng/dLSoutheast [facility] Hospital Qn0.95 m[IU]/LNOMS HealthcareNo Panel Informationon 73-55-6081DSGEUJN:YES MULTIPLE TESTING PRIORITIES; ROUTINE TESTING TO FOLLOW. FASTING: YESQUESTPerforming Organization Information Site ID: QPT Name: [facility] Address: [address] [place] [address], [address] [place] [id number] Director: Shaheed Becerra MDCape Fear Valley Hoke HospitalNuclear stress test with myocardial perfusionOrdered By: Jackson Wiggins on 49-91-6686Bmozstas Diastolic BP 86mmHgBon [facility] [employer] Work Phone: Baseline BE39OCSWky [facility] [employer] Work Phone: Baseline Systolic QL516pdQnJtf [facility] [employer] Phone: Exercise Duration Xkhslum55ytoYsa 60mo Phone: [phone] Duration Time4 minBon 60mo Phone: [phone] Stress EF69 %Darell 60mo Phone: [phone] Diastolic PX22bkHnLfh 60mo Phone: [phone] Estimated Workload6.1METSBon 60mo Phone: [phone] Peak LS359KELYvm 60mo Phone: [phone] Percent HR Ienznjes52 %Darell 60mo Phone: [phone] Rate Pressure Kposmmq75802MYH*mmHgHoly Cross Hospital 60mo Phone: [phone] ST Depression1.5 mmHoly Cross Hospital 60mo Phone: [phone] Systolic XT917mrGeIuj 60mo Phone: [phone] Target KG693wjrLdv 60mo Phone: [phone] 60mo Phone: Nuclear stress test with myocardial perfusionon 65-92-0129Mgmgos Function: Left ventricular function post-stress is normal. Post-stress ejection fraction is 69%. The stress end diastolic cavity size is normal. Perfusion Defect: There is a mild severity left ventricular stress perfusion defect that is small to medium in size present in the inferolateral and anterolateral segment(s). This defect was visualized during the stress phase of imaging. The defect appears to be probable ischemia. The possibility of artifact cannot be excluded. Perfusion Conclusion: There is no evidence of transient ischemic dilation (TID). ECG: Resting ECG demonstrates normal sinus rhythm. Stress Test: A Nitish protocol stress test was performed. In addition to exercise, regadenoson (Lexiscan) was also administered. The patient reached stage 2 of the protocol and was stressed for 4 min and 17 sec. Blood pressure demonstrated a normal response and heart rate demonstrated a normal response to stress. The patient's heart rate recovery was normal. Image quality is good. Stress ECG: Arrhythmias during stress: rare PVCs. 1.5 mm [...] The stress end diastolic cavity size is normal.[facility] CV RPACS STRESS Nuclear stress test with myocardial perfusionon 54-74-0992Trojfdbuj Study observation (narrative)[facility] HealthGlucose (Bld) [Mass/Vol]Ordered By: Marilee Katt on 00-72-6274Vdpqxuv Blood, EAG377 mg/dLBoone Hospital Center HealthcareSurgical Pathology Reporton [id number] Pathology Report(NOTE) Path Number: [id number] -- Diagnosis -- A. Endocervix, curettage: Mucus with denuded benign endocervical epithelial cells. No squamous intraepithelial lesion seen. B. Uterine cervix, 11:00, colposcopic biopsy: Endocervical mucosa, negative for dysplasia. No squamous mucosa seen. C. Uterine cervix, 7:00, colposcopic biopsy: LEE-1 (low-grade squamous intraepithelial lesion). Gale Vincent. 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 AISHWARYA MONA, [facility] Received in formalin are mucinous tissue fragments, 1.0 x 0.4 x 0.2 cm in aggregate. Entirely 1cs (specimen received on a brush, brush returned to container). B. AISHWARYA MONA, 11:00 Received in formalin is one phelps-white tissue fragment, 0.2 x 0.2 x 0.1 cm. Entirely 1cs. C. AISHWARYA MONA, 7:00 Received in formalin is one phelps-white [...] block positivity. Controls are appropriate. Processing Lab: [facility] [address] [place] [address] Interpretation Performed at [place] [id number] [place] [address] SURGICAL PATHOLOGY CONSULTATION Patient Name: AISHWARYA AGUILA [facility] Rec: [id number] [facility] ANATOMIC PATHOLOGY [address] [place] [id number] NoMercy Health Clermont HospitalHPV DNA High Riskon 88-07-4821XWF [facility] on above:Result Comment: This test amplifies and detects DNA [...] suspected sexual abuse or for other forensic purposes.Performed By: #### HPVH #### RegisterPatient [address] [place] [address] [id number] Stave Block Splitter: Asad Draper MDHPV Type 16DetectedAbnoKettering Memorial Hospital on above:Performed By: #### HPVH #### [address] [id number] Stave Block Splitter: Asad Draper MDHPV Type 18Not detectedNormalNOTKettering Health Dayton on above:Performed By: #### HPVH #### RegisterPatient [address] [place] [address] [phone] Stave Block Splitter: Mili Snow High Risk HPVNot detectedNoKettering Memorial Hospital on above:Performed By: #### HPVH #### RegisterPatient [address] [place] [address] [id number] Stave Block Splitter: Caryn Snow/GC DNA, TPon 26-91-0707Qydsalmch Probe, TPNegativeNormalNEGAdena [facility] on above:Result Comment: CHLAMYDIA TRACHOMATIS DNA not detected by nucleic acid [...] positive results by an alternative nucleic acid target.Performed By: #### CYTCGP #### [employer] [address] [place] [address] Stave Block Splitter: Asad Draper MDGoandrearrhea Probe, TPNegativeNormdeNEGAdena [facility] on above:Result Comment: NEISSERIA GONORRHOEAE DNA not detected by nucleic acid [...] positive results by an alternative nucleic acid target.Performed By: #### CYTCGP #### RegisterPatient [address] [place] [address] Stave Block Splitter: Asad Draper MDHPV DNA High Riskon [id number] Sample.[facility] PREPKindred Hospital LimaComment on above:Performed By: #### HPVH #### RegisterPatient [address] [place] [address] Stave Block Splitter: JENNI SnowourceCERVICAL MATERIALKindred Hospital LimaComment on above:Performed By: #### HPVH #### RegisterPatient [address] [place] [address] [id number] Stave Block Splitter: Asad Draper [facility] DURANTytology Reporton [id number] report Cyto stain.thin prep Doc (Cvx/Vag)(NOTE) Path Number: [id number] DIAGNOSIS Imaged ThinPrep Pap - Cervical (1 monolayer slide): Specimen Adequacy: Satisfactory for evaluation. - Endocervical/transformation zone component present. Descriptive Diagnosis: High-grade squamous intraepithelial lesion (HSIL). Cytotech Screener: EY Electronically Signed Out Larry Stark M.D. cherelle/06/30/2024 [...] or for other forensic purposes. Performed at [facility] [address] ([phone] Source of Specimen: A: Imaged ThinPrep Pap - Cervical (1 monolayer slide) HPV Reflex?......................HPV Regardless Clinical History Postmenopausal Z01.419 Routine strategic planner exam without abnormal findings LMP: 06/20/15 Processing Lab: [address] [address] Interpretation performed at [address] [address] The Pap smear is a screening test primarily for squamous epithelial lesions, which is subject to both false negative and false positive results. Your patient should be reminded to consult you immediately if she experiences any suspicious signs or symptoms, regardless of her Pap smear result. GYNECOLOGIC CYTOLOGY REPORT Patient Name: AISHWARYA AGUILA [facility] Rec: [id number] [facility] [employer] [facility] ANATOMIC PATHOLOGY [facility] [facility]. [place], [place] [address] [facility] MAMMOGRAM SCREENING TOMOSYNTHESIS BILATERALon [id number] MAMMOGRAM SCREENING TOMOSYNTHESIS BILATERALThis is a summary report. The complete report [...] Routine Screening Mammogram ELECTRONICALLY SIGNED BY: Martin aLrkin M.D.NormalNot AvailableNo Panel Informationon [id number] comment: Snip excision Informed consent: discussed and consent obtained Hemostasis achieved with: electrodesiccationCape Fear Valley [facility]oke [facility] Destruction method comment: Snip removal Anesthesia: the lesion was anesthetized in a standard fashion Anesthetic: 1% lidocaine w/ epinephrine 1-100,000 buffered w/ 8.4% NaHCO3 Hemostasis achieved with: electrodesiccation Outcome: patient tolerated procedure well with no complicationsFort Memorial HospitalDEXA BONE DENSITY 2 SITESon [id number] BONE DENSITY 2 SITESDEXA BONE DENSITY 2 SITES 07/15/2023 12:21 PM EST Indication: Screening. Comparison: Accurate comparison is not possible due to differences in equipment. Albumatic. Lumbar spine and bilateral hips. Lumbar spine [...] Signed by: Bernardo Squires MD 07/17/23 Final resultNoOhioHealth Southeastern Medical CenterDEXA BONE DENSITY 2 SITES 07/15/2023 12:21 PM [...] Signed by: Bernardo Squires MD 07/17/23 Final resultMHPTRadiology, Radiologist, - 07/17/2023 DEXA BONE DENSITY 2 SITES [...] by: Bernardo Squires MD 07/17/23 Final result [facility] HealthcareRadiology Study observation (narrative)NOMS HealthcareDEXA BONE DENSITY 2 SITESOrdered By: Radiologist Radiology on [id number] Work Phone: DXA Bone [Mass/Area] Bone densityon 07-17-2023 Some evidence of elevated bone mineral density [facility] CONSOLIDATEDDEXA BONE DENSITY 2 SITES 07/15/2023 12:21 PM EST Indication: Screening. Comparison: Accurate comparison is not possible due to differences in equipment. GE Cerapedicsar hyperWALLET Systemsigy. Lumbar spine and bilateral hips. Lumbar spine [...] density 1.419 g/sq cm. T score 3.3. [facility] Bernardo De Santiago MD - 07/17/2023 DEXA BONE DENSITY 2 [...] Some evidence of elevated bone mineral density [facility] GradeFundDXA Bone [Mass/Area] Bone densityOrdered By: Bernardo Squires on [id number] [employer] Work Phone: dXA Bone [Mass/Area] Bone densityon 07-15-2023 Radiology Study observation (narrative)[facility] Aliopartis [facility] with Auto Differentialon [id number] (Bld) [#/Vol]0.05 10*3/uLBON SECOURS MERCY HEALTHBasophils/100 WBC (Bld)0 %0 - 2 %[facility] HEALTHEosinophils (Bld) [#/Vol]0.07 10*3/uLBON SECOURS MERCY HEALTHEosinophils/100 WBC (Bld)1 %1 - 4 % [facility] HEALTHErythrocyte distribution width (RBC) [Ratio]13.8 %11.8 - 14.4 %[facility] HEALTHHematocrit (Bld) [Volume fraction]47.2 %High36.3 - 47.1 %[facility] HEALTHHemoglobin (Bld) [Mass/Vol]15.9 g/iXXtdd24.9 - 15.1 g/dLBON [facility]RS [facility] HEALTHImmature granulocytes (Bld) [#/Vol]0.09 10*3/uL [facility] HEALTHImmature granulocytes/100 WBC (Bld)1 %Efvp8RWR [facility] HEALTHInterpretation and review of laboratory resultsAbnormalBON [facility] HEALTHLymphocytes/100 WBC (Bld)16 %Low24 - 43 %[facility] HEALTH Lymphocytes/100 WBC (Bld)1.85 %[facility]ITALH (RBC) [Entitic mass] 28.8 pg25.2 - 33.[address] FRANCIS HOSPITALHC (RBC) [Mass/Vol]33.7 g/dL28.4 - 34.8 g/dLBON SECOURS ST. FRANCIS HOSPITALV (RBC) [Entitic vol]85.5 fL82.6 - 102.9 fL [facility] HEALTHMonocytes/100 WBC (Bld)8 %3 - 12 %[facility] HEALTHMonocytes/100 WBC (Bld)0.89 %[facility] HEALTHNeutrophils/100 WBC (Bld)74 %High36 - 65 %[facility] HEALTHNucleated RBC/100 WBC (Bld) [Ratio]0.0 %0.0 per 100 WBCBON SECOURS [facility]ENTERY HEALTHPlatelet mean volume (Bld) [Entitic vol]9.0 fL8.1 - 13.5 fLBON SECOURS UN[facility]ERSITY [facility] CENTERY HEALTHPlatelets (Bld) [#/Vol] 335 10*3/uLBON [facility], INCRBC (Bld) [#/Vol]5.52 10*6/uLHigh3.95 - 5.11 m/uLBON [facility], INCSegmented neutrophils/100 WBC (Bld)8.61 %HighMARY WASHINGTON HEALTHCAREWBC other (Bld) [#/Vol]11.6HighBON REGIONAL HEALTH RAPID CITY HOSPITALComprehensive Metabolic Panelon 10-80-9327Qsopglo [Mass/Vol] 5.1 g/dL3.5 - 5.2 g/dLBON [facility], INCAlbumin/Globulin [Mass ratio]1.6 {ratio}1.0 - 2.5[facility] HEALTHALP [Catalytic activity/Vol]74 U/L35 - 104 U/LBON [facility] HEALTHALT [Catalytic activity/Vol]44 U/LHigh5 - 33 U/L [facility], INCAnion gap [Moles/Vol]14 mmol/L9 - 17 mmol/LBON [facility] HEALTHAST [Catalytic activity/Vol]27 U/LNINF - 32 U/LBON [facility], INCBilirubin [Mass/Vol]1.7 mg/dLHigh0.3 - 1.2 mg/dLBON [facility], INC Calcium [Mass/Vol]10.5 mg/dLHigh8.6 - 10.4 mg/dLBON [facility], INCChloride [Moles/Vol]94 mmol/LLow98 - 107 mmol/LBON [facility], INCCO2 [Moles/Vol]30 mmol/L20 - 31 mmol/LBON [facility], INCCreatinine [Mass/Vol]0.8 mg/dL0.5 - 0.9 mg/dLBON [facility], INCGFR/1.73 sq M.predicted MDRD (S/P/Bld) [Vol rate/Area]- PINFBON SELECT [facility]TY [facility]OS[facility], INCComment on above: These results are not intended [...] therapy that affects renal tubular secretion. Glucose [Mass/Vol]137 mg/tYKxgb85 - 99 mg/dLBON [facility], INC Interpretation and review of laboratory resultsAbInova Mount Vernon Hospital Potassium [Moles/Vol]4.3 mmol/L3.7 - 5.3 mmol/LBON [facility], INCProtein [Mass/Vol]8.2 g/dL6.4 - 8.3 g/dLBON [facility], INCSodium [Moles/Vol]138 mmol/L135 - 144 mmol/LBON [facility], INCUrea nitrogen [Mass/Vol]16 mg/dL6 - 20 mg/dLBON [facility], INCUrea nitrogen/Creatinine [Mass ratio]20 mg/mg9 - 20BON REGION[facility] HEALTH RAPID CITY HOSPITALLipid Panelon 12-19-2022 Cholesterol [Mass/Vol]115 mg/dLNINF - 200 mg/dLBON [facility], INCComment on above: Cholesterol Guidelines: <200 Desirable 200-240 Borderline >240 Undesirable Cholesterol in HDL [Mass/Vol]49 mg/dL40 - PINF mg/dLBON [facility], INC Comment on above: HDL Guidelines: <40 Undesirable 40-59 Borderline >59 Desirable Cholesterol in LDL [Mass/Vol]32 mg/dL0 - 130 mg/dLBON [facility] INC Comment on above: LDL Guidelines: <100 Desirable 100-129 Near to/above Desirable 130-159 Borderline >159 Undesirable Direct (measured) LDL and calculated LDL are not interchangeable tests. Cholesterol.total/Cholesterol in HDL [Mass ratio]2.3 {ratio}NINF - 5BON [facility], INCInterpretation and review of laboratory resultsAbnoMary Washington HospitalTriglyceride [Mass/Vol]171 mg/dLHighNINF - 150 mg/dLBON [facility], INCComment on above: Triglyceride Guidelines: <150 Desirable 150-199 Borderline 200-499 High >499 Very high Based on AHA Guidelines for fasting triglyceride, March 2012. MARY WASHINGTON HEALTHCAREMicroalbumin, Uron 42-81-5176Wkwocrt DL <= 20 mg/L (U) [Mass/Vol]764 mg/LHighNINF - 21 mg/LBON [facility], INCAlbumin/Creatinine DL <= 20 mg/L (U) [Ratio]178HighNINFMARY WASHINGTON HEALTHCARECreatinine (U) [Mass/Vol]428.7 mg/aUNwlq20.0 - 217.0 mg/dLBON [facility], INC Interpretation and review of laboratory resultsAbnormMountain View Regional Medical CenterT4, Freeon 48-12-1464Zxwl T4 [Mass/Vol]1.5 ng/dL0.9 - 1.7 ng/dLBON REGIONAL HEALTH RAPID CITY HOSPITALTS with Reflexon [id number] and review of laboratory resultsAbnoChesapeake Regional Medical Center Qn6.76 m[IU]/LHighINOVA CHILDREN'S HOSPITALVitamin D 25 Hydroxyon [id number]-meuaczydgpkhxd D3 [Mass/Vol]59.0 ng/mL 29.9 - PINF ng/mLMARY WASHINGTON HEALTHCAREComment on above: Reference Range: Vitamin D status Range Deficiency <20 ng/mL Mild Deficiency 20-30 ng/mL Sufficiency 30-100 ng/mL Toxicity >100 ng/mL MARY WASHINGTON HEALTHCAREXR CHEST (2 VW)Ordered By: Jeanine Whitlcok on 97-65-8583Yp acute cardiopulmonary disease.[employer] Work Phone: eXAMINATION: TWO XRAY VIEWS OF THE CHEST 12/06/2020 7:41 pm COMPARISON: July 19, 2017. HISTORY: ORDERING SYSTEM PROVIDED HISTORY: Mild intermittent asthma without complication TECHNOLOGIST PROVIDEDHISTORY: ASTHMA FINDINGS: No lines or tubes. Normal cardiomediastinal silhouette. The lungs are clear without focal consolidation or pleural effusion. No suspicious pulmonary nodules. No pulmonary edema. No pneumothorax. No acute osseous abnormality.[employer] Work Phone: ereid, [facility] Incoming Radiant Results From [employer] - 12/08/2020 8:26 PM EDT EXAMINATION: TWO [...] osseous abnormality. IMPRESSION: No acute cardiopulmonary disease. [facility] [employer] Work Phone: [facility] [employer] Work Phone: discharge Summaryon [id number] IP Note OR TranscriptionNormalEast [place] Regional HospitalCBCon 74-64-6463Hhgcuzfpdiw distribution width Auto Ratio (RBC)12.9 %Soniht16.8-14.4East [place] Regional HospitalComment on above:Performed By: #### MARLEN LIPR ####[facility] [address] [place] [address] Erythrocytes (RBC)0.0 per 100 WBCNormal0.0East [place] Regional HospitalComment on above:Result Comment: [facility] [employer] [address] [place] [address] Performed By: #### MARLEN LIPR ####[facility] E[address] [place] [address] Erythrocytes (RBC)4.33 10*6/uLNormal3.95-5.11[facility] [place] Regional HospitalComment on above:Performed By: #### TROPJaxon LIPR ####[facility] [address] [place] [address] Hematocrit (HCT)38.1 % Rzrrsa92.3-47.1MOrange County Community HospitalComment on above:Performed By: #### TROPJaxon LIPR ####[facility] [address] [place] [address] Hemoglobin mass conc (Bld)12.4 g/zNTveagk23.9-15.1MOrange County Community HospitalComment on above:Performed By: #### TROPJaxon LIPR ####E[address] [place] [phone] pgNormal 25.2-33.5East [place] Regional HospitalComment on above:Performed By: #### MARLEN LIPR ####Evelia [address] [place] [address] MCHC mass conc (RBC)32.5 g/dBPxylst48.4-34.8[facility] [place] [facility] Comment on above:Performed By: #### MARLEN LIPR ####Evelia Mason[address] [place] [phone] xFWovzce80.6-102.9East [place] Regional HospitalComment on above:Performed By: #### MARLEN LIPR ####Evel[address] [place] [address] Platelet mean volume (PMV)9.7 fLNormal8.1-13.5East [place] Regional HospitalComment on above: Performed By: #### MARLEN LIPKira ####[facility] MasonYgdrmfvuirre[address] [place] [phone] 10*3/kITzdyke120-564OkesfEast [place] Regional HospitalComment on above:Performed By: #### MARLEN LIPR ####[facility] MasonRzlubxonucju[address] [place] [address] WBC (Leukocytes)4.5 10*3/uLNormal 3.5-11.3MOrange County Community HospitalComment on above:Performed By: #### MARLEN LIPR ####[address] [address] Comp Metabolic Pr/rfx MGon 25-17-3982Bsluevndt molar conc3.5 mmol/LLow3.7-5.3 [facility] [place] Regional HospitalComment on above:Performed By: #### MARLEN LIPR ####Evelia [address] [place] [address] (cont.)Normal East [place] Regional HospitalComment on above:Result Comment: Average GFR for 40-49 years old: 99 mL/min/1.73sq mChronic Kidney Disease: <60 mL/min/1.73sq mKidney failure: <15 mL/min/1.73sq meGFR calculated using average adult body mass. Additional eGFR calculator available at:http://www.Glaxstar/multiple_crcl_2012.htmBlake Ville [address] [place] [address] Performed By: #### MARLEN LIPR ####[facility] [address] [place] [phone] aminotransferase (ALT)15 U/LNormal5-33[facility] [place] Regional HospitalComment on above:Performed By: #### MARLEN LIPR ####[facility] [address]ts[address] [place] [address] Ykwyxhl0.9 g/dLNormal3.5-5.2MOrange [facility] Community Hospital Comment on above:Performed By: #### MARLEN LIPR ####[facility] [address] [address] Albumin/Globulin Ratio2.1 {ratio}Normal 1.0-2.5East [place] Regional HospitalComment on above:Performed By: #### TROPJaxon LIPR ####Evelia [address] [place] [address] Alkaline Phos34 U/TXyk64-536BswevEast [place] Regional HospitalComment on above: Performed By: #### TROPJaxon, LIPR ####[facility] [address] [place] [address] Anion gap12 mmol/LNormal9-17[facility] [place] [facility] Comment on above:Performed By: #### TROPJaxon LIPR ####Evelia [address]qvhelatrf[address] [place] [address] Aspartate aminotransferase (AST)14 U/L Normal<32East [place] Regional HospitalComment on above:Performed By: #### TROPI, LIPR ####Evelia [address] [place] [address] Bilirubin Ql (U)1.02 mg/dLNormal0.3-1.2MOrange County Community HospitalComment on above:Performed By: #### TROPI, LIPR ####Evelia Utcx[address]jlsxesm[address]39 [place] [address] Eohhnle8.0 mg/dLNormal8.6-10.4[facility] [place] Regional HospitalComment on above:Performed By: #### TROPI, LIPR ####Evelia [address] [place] [address] Cwtdmgvl01 mmol/LNormal 98-107East [place] Regional HospitalComment on above:Performed By: #### TROPI, LIPR ####Evelia [address] [place] [address] IR447 mmol/VVvrtwl90-19KkbqvEast [place] Regional HospitalComment on above:Performed By: #### TROPI, LIPR ####Evelia Cvlmxrjkwxmp[address]92 [place] [address] Vfalpwebgm4.60 mg/dLNormal0.50-0.90East [place] Regional HospitalComment on above:Performed By: #### TROPI, LIPR ####Jocelyny [address]ms[address] [place] [address] eGFR (non-black)mL/min/{1.73_m2}Normal >60East [place] Regional HospitalComment on above:Performed By: #### TROPI, LIPR ####Jocelyny [address] [place] [address] Glucose mass conc99 mg/aRVkxtfy72-85Szior Pomerado HospitalComment on above: Performed By: #### MARLEN LIPR ####Evelia S[address]zmbrrrqd4568 [place] [phone] g/dLLow6.4-8.3[facility] Comment on above:Performed By: #### MARLEN LIPR ####Evelia [address] [place] [address] [phone] mmol/EQfbpev237-164QgofrEast [place] Regional HospitalComment on above:Performed By: #### MARLEN LIPR ####Evelia Rs[address]le[address]rm[address] [place] [address] [phone] ryljioqe22 mg/dL High6-20[facility] [place] Regional HospitalComment on above:Performed By: #### MARLEN LIPR ####Evelia [address]xs[address] [place] [address] BUN/CRE RatioNOT REPORTEDNormal9-20[facility] [place] Regional HospitalComment on above:Performed By: #### MARLEN LIPR ####Evelia [address] [place] [address] [phone]:NOT REPORTEDNormalEast [place] Regional HospitalComment on above:Performed By: #### MARLEN LIPR ####Evelia [address]onmiiuz[address] [place] [address] [phone] 07-21-2017 Magnesium1.9 mg/dLNormal1.6-2.6MercMountain Community Medical ServicesComment on above: Result Comment: [facility] [employer] [address] [place] [address] [phone] By: #### MARLEN, LIPR ####Evelia [address] [place] [address] [phone] of Careon 60-75-1158SCP IP Note OR TranscriptionNormalMercy Pomerado HospitalHIM IP Note OR Clutch Specialist NormalMercy Pomerado HospitalHIM IP Note OR TranscriptionNormalMercy Pomerado HospitalProgress Noteon 18-87-9264QZQ IP Note OR Clutch Specialist NormalMercy Pomerado HospitalHIM IP Note OR TranscriptionNormalMercy Pomerado HospitalCARDIAC STRESS TESTon 84-85-2687VRBHJUV STRESS TEST [address] [address] CARDIAC STRESS TESTPATIENT NAME: AISHWARYA AGUILA : 1965MED REC NO: [id number] ROOM: [address] [place], [place] [address]OUNT NO: [id number] ADMIT DATE: 07/20/2017PROVIDER: Ang CraigARDIOLITE TREADMILL STRESS STUDYDATE OF STUDY: 07/20/2017ORDERING PROVIDER: Mari CejaMONROE [facility] PROVIDER: Jori OrtizeINDICATION: Chest discomfort.CONSENT: The test was explained and [...] nor in recovery.EXERCISE EKG: Abnormal.ISCHEMIC EKG CHANGES: Definitely.IMPRESSION:Electrocardiographically Positive Cardiolite treadmill stress study.Cardiolite report issued from the department of Nuclear MedicineANG SHELLMID: 07/20/2017 15:47:34 /PGAYTANJob#: [id number] Doc#: UnknownPositive result faxed to the UnitNormal East [place] Regional HospitalConsulton [id number] IP Note OR Clutch Specialist NormalEast [place] Regional HospitalHistory and Physicalon 21-79-9744RRO IP Note OR TranscriptionNormalEast [place] Regional HospitalK (Potassium)on 90-80-8484Nxbrjakui molar conc3.9 mmol/LNormal3.7-5.3Mer[facility]omerado HospitalComment on above:Result Comment: RegisterPatient [facility] [place] [address] Performed By: #### MARLEN LIPR ####[address] [address] Lipid Profileon 88-67-4959Ykieausszut988 mg/dLNormal<200Mercy Pomerado HospitalComment on above:Result Comment: Cholesterol Guidelines: <200 Desirable 200-240 Borderline >240 UndesirablePerformed By: #### MARLEN LIPR ####[facility] [address]ib[address] [place] [address] Cholesterol to HDL Ratio 3.4 {ratio}Normal<5[facility] [place] Regional HospitalComment on above:Performed By: #### MARLEN LIPR ####[facility] [address] [place] [address] HDL Xlxtachshfo80 mg/dLNormal>40MerCentinela Freeman Regional Medical Center, Centinela CampusComment on above:Result Comment: HDL Guidelines: <40 Undesirable 40-59 Borderline >59 DesirablePerformed By: #### MARLEN LIPR ####[facility] [place] [address] LDL Ibunwagqkur33 mg/dL Normal0-130East [place] Regional HospitalComment on above:Result Comment: LDL Guidelines: <100 Desirable 100-129 Near to/above Desirable 130-159 Borderline >159 UndesirableDirect (measured) LDL and calculated LDL are not interchangeable tests.Performed By: #### TROPI, LIPR ####[address] [address] Nxcdjgfasprr957 mg/dLHigh<150East [place] Regional HospitalComment on above:Result Comment: Triglyceride Guidelines: <150 Desirable 150-199 Borderline 200-499 High >499 Very high Based on AHA Guidelines for fasting triglyceride, March 2012.RegisterPatient [facility] [place] [address] [phone] By: #### TROPI, LIPR ####[facility] [address] [place] [address] Cholesterol in VLDL mass concNOT REPORTEDNormal1-30Mer[facility]omerado HospitalComment on above: Performed By: #### TROPI, LIPR ####[employer] [address]qlqbid[address] [place] [address] Magnesiumon 35-45-3277Xzpgnazup3.8 mg/dLNormal1.6-2.6Mer[facility] Pomerado HospitalComment on above:Result Comment: RegisterPatient [address] [place] [address] [phone] By: #### TROPI, LIPR ####[facility] [address] [place] [address] NM MYOCARDIAL SPECT REST EXERCISE OR RXon [id number] MYOCARDIAL SPECT REST EXERCISE OR RX EXAMINATION:MYOCARDIAL PERFUSION IMAGING07/20/2017TECHNIQUE:Rest dose: 15.9 mCi Tc-99m sestamibi intravenouslyStress dose: 42.8 mCi Tc-99m sestamibi intravenouslyUnder cardiology supervision, treadmill exercise testing was performed. Peakheart rate of 155 bpm is 90% of the age predicted maximum heart rate.SPECT imaging was acquired following injection of the sestamibi. ECG gatingwas obtained following the stress acquisition.COMPARISON:None Available.HISTORY:ORDERING SYSTEM PROVIDED HISTORY: Chest PainTECHNOLOGIST PROVIDED HISTORY:Ordering Physician Provided Reason for Exam: chest pain, sweating, HTN, DM,prior cath 2006, some shortness of breathAdditional signs and symptoms: 3 week history ofintermittent chesttightness, today got worse now radiating down into her right arm with somenumbness,51-year-old female with chest pain, jaw, back, or arm pain, palpitations,numbness, sweating, underlying diabetes and hypertension with a familyhistory of heart disease and sudden deathFINDINGS:The patient achieved a maximum heart rate of 155 beats per minute, 90 % ofthe maximum age predicted heartrate of 171 beats per minute.Perfusion:There is no scintigraphic evidence for a reversible or fixed perfusion defectto suggest reversible ischemia or infarct.Function:The gated SPECT data demonstrates left ventricular size and normal wallmotion.Left ventricular ejection fraction: 64%TID score: 0.89(Threshold value of 1.39 is used for Lexiscan [...] both clinical history and testresults. Final risk determinationis the responsibility of the orderingprovider as history and other test results may increase or decrease the riskstratification reported for this examination.Risk stratification criteria are adapted from Noninvasive RiskStratification criteria from Vergara et. Al,ACC/AATS/AHA/ASE/ASNC/SCAI/SCCT/SZS1669 Appropriate Use Criteria ForCoronary Revascularization in Patients With Stable Ischemic Heart DiseaseNEW ULM MED[facility] Volume 69, Issue 17, October 2016High risk (>3% annual or NE)1. Severe resting LV dy sfunction (LVEF >35%) not readily explained by noncoronary causes2. Resting perfusion abnormalities greater than 10% of the myocardium inpatients without prior history or evidence of MI3. Stress-induced perfusion abnormalities encumbering greater than or equalto 10% myocardium or stress segmental scores indicating multiple vascularterritories with abnormalities4. Stress-induced LV dilatation (TID ratio greater than 1.19 for exercise andgreater than 1.39 for regadenoson)Intermediate risk (1% to 3% annual or NE)1. Mild/moderate resting LV dysfunction (LVEF 35% to 49%) not readilyexplained by non coronary causes.2. Resting perfusion abnormalities in 5%-9.9% of the myocardium in patientswithout a history or prior evidence of MI3. Stress-induced perfusion abnormality encumbering 5%-9.9% of the myocardiumor stress segmental scores indicating 1 vascular territory with abnormalitiesbutwithout LV dilation4. Small wall motion abnormality involving 1-2 segments and only 1 coronarybed.Low Risk (Less than 1% annual or NE)1. Normal or small myocardial perfusion defect at rest or with stressencumbering less than 5% of the myocardium.Interpreted by:JENNI Montañoigned by:Giovanny Lan MD07/20/17inal resultNormalEast Ohio Regional HospitalPlan of Careon 02-72-2434GPK IP Note OR Clutch Specialist NormalEast Ohio Regional HospitalHI IP Note OR TranscriptionNormalEast [place] Regional HospitalProcedureon 23-04-2118SFM IP Note OR Clutch Specialist NormalEast Ohio Regional HospitalProgress Noteon 33-70-1212FHD IP Note OR TranscriptionNormalUC [facility] IP Note OR Clutch Specialist NormalEast [place] Regional HospitalTSH w/reflex to FT4on 68-96-0121Enhijnl stimulating hormone (TSH)0.22 m[IU]/LLow0.30-5.00East [place] Regional HospitalComment on above:Result Comment: RegisterPatient [address] [place] [phone] By: #### TSHX, FT4 ####RegisterPatient[address] [place] [address] [phone], Freeon 50-03-6028Mtuoallmb, Free1.52 ng/dLNormal0.93-1.70MerCentinela Freeman Regional Medical Center, Centinela CampusComment on above:Result Comment: RegisterPatient [address] [place] [address] Performed By: #### TSHX, FT4 ####[facility] Kehrv[address]fix[address] [place] [address] [phone] 07-20-2017 Troponin I.cardiac mass concNormalEast Ohio Regional HospitalComment on above:Result Comment: Reference Range: <0.03 Within reference range. 0.03-0.09 Possible myocardial damage.Repeat at appropriate intervals to rule out chronic elevation. >= 0.10 Indicative of myocardial damage.Patients with high levels of Biotin oral intake (i.e >5mg/day) may have falsely decreased Troponin T levels. Samples collected within 8 hours of biotin intake may require additional inform ation for diagnosis.RegisterPatient [address] [place], [place] [id number] [phone] By: #### TROPI, LIPR ####RegisterPatient[address] [place] [address] Troponin T.cardiac mass concug/LNormal<0.03MerCentinela Freeman Regional Medical Center, Centinela CampusComment on above:Result Comment: Troponin T results cannot be compared to Troponin-I results.Performed By: #### TROPI, LIPR ####RegisterPatient[address] [place], [place] [id number] Vital Signs Date TimeVital SignValuePerforming VjhvlbmroWhvsaixg84-21-9544 16:00-0500 Diastolic blood cbezhtje09 mm[Hg]Jackson Wiggins MD Work Phone: bon [employer] [facility] CenterTqfvfk62-88-7374 16:00-0500Heart rate73 /Carolina Wiggins MD Work Phone: bon [employer] [facility] CenterDneyow58-79-8919 16:00-0500 Respiratory rate21 /Carolina Wiggins MD Work Phone: bon [facility] HospitalAltitude Co [facility] CenterUkvvgn84-22-5253 16:00-1918PtJ8% (BldA) [Mass fraction]91 %Jackson Wiggins MD Work Phone: bon [employer] [facility] CenterLlolte06-88-8633 16:00-0500Systolic blood nxfjbici246 mm[Hg]Jackson Wiggins MD Work Phone: bon [employer] [facility] CenterDgremk32-23-7306 14:00-0500Body qubkurzstcl03.69 [degF]Jackson Wiggins MD Work Phone: bon [employer] [facility] CenterVylxdq56-95-1874 12:20-0500Body rixpqs936 Jose Wiggins MD Work Phone: [facility]11-06-2025 12:20-0500Body mass index (BMI) [Ratio]38.97 kg/n7OurnhuJackson Wiggins MD Work Phone: [facility]11-06-2025 12:20-0500Body pornbo57.79 kgStmary Wiggins MD Work Phone: [facility]10-21-2025 09:05-0400Body wgkeoz620 cmGerri Rine [facility] Work Phone: [phone] HospitalIrqmbneckc78-19-4828 09:05-0400Body mass index (BMI) [Ratio]40.18 kg/n9Rlrcv Rine [facility] Work Phone: [phone] [place], [place] [address]Qoymiomviy08-28-2020 09:05-0400Body temperature 98.29 [degF]Jeanine Rine [facility] Work Phone: [phone] [place], [place] [address]Hssrpquogv59-29-3091 09:05-0400Body .88 kgGerri Rine [facility] Work Phone: 1(486)419-[address] [place], [place] [address]Kzszoukvpw76-69-2687 09:05-0400Diastolic blood itkwibky13 mm[Hg]Jeanine Rine [facility] Work Phone: 1(673)614-[address] [place], [place] [address]Xigbpybfid91-25-6311 09:05-0400Heart rate63 /min Jeanine Rine [facility] Work Phone: 1([phone] HospitalHsetmortoe56-15-9330 09:05-0400Respiratory rate18 /minGerri Rine [facility] Work Phone: 1(002)421-[address] [place], [place] [address]Oinlhttfse59-06-8640 09:05-2477BxG8% (BldA) [Mass fraction]95 %Jeanine Rine [facility] Work Phone: 1(757)044-49[facility] HospitalAvyfdntrbt67-61-2292 09:05-0400Systolic blood ucirxuac341 mm[Hg]Jeanine Rine [facility] Work Phone: [facility] HospitalHwnpkujrrp04-70-5720 11:40-0400Body ygsjxt869 cm Jamie Schwartz MD Work Phone: [facility] HospitalWeshanbxhl87-17-3209 11:40-0400Body mass index (BMI) [Ratio]39.5 kg/h3UfodbJamie Schwartz MD Work Phone: [address] [place], [place] [address]Ecqibbsvkx56-66-8989 11:40-0400Body nrnmdi056.15 kgJamie Schwartz MD Work Phone: [address] [place], [place] [address]Vfazjitzbe58-92-1626 11:40-0400Diastolic blood bqqmyjes05 mm[Hg]Jamie Schwartz MD Work Phone: [phone] [place] [address]-30-2025 11:40-0400Heart rate74 /min Jamie Schwartz MD Work Phone: [phone] [place], [place] [address]Mwlucdjcbc75-71-5679 11:40-0400Respiratory rate16 /minJamie Schwartz MD Work Phone: [address] [place], [place] [address]Qjletjhaxf11-24-4068 11:40-0420LuF0% (BldA) [Mass fraction]94 %Jamie Schwartz MD Work Phone: 1(153)947-[address] [place] [address]-30-2025 11:40-0400Systolic blood mm[Hg]Jamie Schwartz MD Work Phone: [address] [place], [place] [address]Bmpwvoaphz31-56-5371 14:31-0400Body cm Jeanine [place]lock [facility] Work Phone: [place] [address]Czcfwncrwp84-31-5865 14:31-0400Body mass index (BMI) [Ratio]39.29 kg/x5Arvgm Joselinee [facility] Work Phone: [phone] [address]Rwhaccvnau15-47-5724 14:31-0400Body temperature 99.1 [degF]Jeanine Rine [facility] Work Phone: [phone] [address]Zvhzndqnmr03-87-6083 14:31-0400Body iuuldi134.61 kgGerri Rine [facility] Work Phone: [phone] [address]Gcwclynhnt49-27-2378 14:31-0400Diastolic blood jiqaxemp30 mm[Hg]Jeanine Joselinee [facility] Work Phone: 1([phone] [address]Yqntoruqyk71-79-6463 14:31-0400Heart rate73 /min Jeanine Rine [facility] Work Phone: [phone] [address]-16-2025 14:31-0400Respiratory rate18 /minGerri Rine [facility]NER Work Phone: 1(038)[address] [place] [address]-16-2025 14:31-3778OcO5% (BldA) [Mass fraction]94 %Jeanine Rine [facility] Work Phone: 1(073)[address] [place] [address]-16-2025 14:31-0400Systolic blood sedoeonp071 mm[Hg]Jeanine Rine [facility] Work Phone: 1(388)[address] [place] [address]-14-2025 09:09-0400Body cm Jeanine Rine [facility] Work Phone: 1(525)[address] [place] [address]-14-2025 09:09-0400Body mass index (BMI) [Ratio]39.11 kg/v3Krhyo Rine [facility] Work Phone: 1(081)[address] [place] [address]-14-2025 09:09-0400Body temperature 98.29 [degF]Jeanine Rine [facility] Work Phone: 1(939)[address] [place] [address]-14-2025 09:09-0400Body egcugj830.15 kgGerri Rine [facility] Work Phone: 1(933)[address] [place] [address]-14-2025 09:09-0400Diastolic blood xwcsmats66 mm[Hg]Jeanine Rine [facility] Work Phone: 1(708)[address] [place] [address]-14-2025 09:09-0400Heart rate76 /min Jeanine Rine [facility] Work Phone: 1(189)[address] [place] [address]-14-2025 09:09-0400Respiratory rate18 /minGerri Rine [facility] Work Phone: 1(256)[address] [place], [place] [address]25 09:09-7191KsM0% (BldA) [Mass fraction]94 %Jeanine Rine [facility]NER Work Phone: 1(918)[facility]75[address] Armstrong StreetJecazobokk39-81-5010 09:09-0400Systolic blood ykokfoir362 mm[Hg]Ejanine Rine [facility] Work Phone: 1(971)070-25[facility] HospitalJzicvharmv70-19-2942 09:10-0500Body wxeepv607 cm Osman Fruth [facility] Work Phone: [phone] HospitalXgugchzbsg97-12-4247 09:10-0500Body mass index (BMI) [Ratio]38.44 kg/a7Grtmve Fruth [facility] Work Phone: 1([phone] HospitalJvkcmikitn71-94-5848 09:10-0500Body temperature 95.2 [degF]Osman Fruth [facility] Work Phone: 1(079)560-[address] [place], [place] [address]Jkdderwvyp71-92-5937 09:10-0500Body xnqqwa17.43 kgRachel Fruth [facility] Work Phone: 1(477)[facility] [place], [place] [address]Jfredlwfqx50-82-9663 09:10-0500Diastolic blood laqbiyvd74 mm[Hg]Osman Fruth [facility] Work Phone: 1(653)[facility] [place], [place] [address]Solerhpiub28-10-6570 09:10-0500Heart rate76 /min Osman Fruth [facility] Work Phone: 1(517)[facility] [place], [place] [address]Nrlmlfsazv26-40-4308 09:10-4259VcZ5% (BldA) [Mass fraction]92 %Osman Fruth [facility] Work Phone: 1(550)[facility]60[facility] HospitalAesyvngxli48-73-9735 09:10-0500Systolic blood uznlkqgz127 mm[Hg]Osman Fruth [facility] Work Phone: 1(909)[facility]99[facility] HospitalEjmoyizgfn90-03-6539 09:51-0500Body ifompp504 cm Jeanine [place]lock [facility] Work Phone: 1(702)[facility]23[facility] HospitalMxrbqawgqd58-02-2216 09:51-0500Body mass index (BMI) [Ratio]39.93 kg/r4Otnhs Rine [facility] Work Phone: 1(296)946-[address] [place], [place] [address]Payegjiqpb44-91-0127 09:51-0500Body temperature 98.2 [degF]Jeanine Rine [facility] Work Phone: 1(974)806-98[facility] HospitalFuywdvbcio12-91-5544 09:51-0500Body .24 kgGerri Rine [facility] Work Phone: 1(184)[facility] [place], [place] [address]Tiawhdkbxm63-14-0828 09:51-0500Diastolic blood hrhmmose50 mm[Hg]Jeanine Rine [employer] Work Phone: 1(229)[address] [place], [place] [address]01-06-2025 09:51-0500Heart rate70 /min Jeanine Rine [facility] Work Phone: 1(240)[address] [place], [place] 92[address]01-06-2025 09:51-0500Respiratory rate18 /minGerri Rine [facility] Work Phone: 1(576)[address] [place], [place] [address]01-06-2025 09:51-1413NvT0% (BldA) [Mass fraction]93 %Jeanine Rine [employer] [employer] Work Phone: 1(626)[address] [place], [place] [address]01-06-2025 09:51-0500Systolic blood rhyjsujl941 mm[Hg]Jeanine Rine [employer] Work Phone: 1(461)[address] [place] [address]-04-2024 09:16-0400Body kaltcl758 cm Jeanine Rine [employer] [facility] Work Phone: 1(267)[address] [place], [place] [address]10-04-2024 09:16-0400Body mass index (BMI) [Ratio]38.9 kg/t7Gnexu Rine [facility] [facility] Work Phone: 1(200)[address] [place] [address]-04-2024 09:16-0400Body temperature 98.01 [degF]Jeanine Rine [employer] Work Phone: 1(763)[address] [place] [address]-04-2024 09:16-0400Body hhwkud81.61 kgGerri Rine [employer] Work Phone: 1(668)[address] [place] [address]-04-2024 09:16-0400Diastolic blood sygguqfi70 mm[Hg]Jeanine Rine [employer] Work Phone: 1(163)[address] [place] [address]-04-2024 09:16-0400Heart rate71 /min Jeanine Rine [facility] Work Phone: 1(562)[address] [place] [address]-04-2024 09:16-0400Respiratory rate18 /minGerri Rine [facility] Work Phone: 1(880)[facility] [place] [address]-04-2024 09:16-7964VbG9% (BldA) [Mass fraction]95 %Jeanine Rine [employer] Work Phone: 1(939)357-84[facility] HospitalHotwiimoya15-92-3708 09:16-0400Systolic blood icblophs552 mm[Hg]Jeanine Rine [employer] Work Phone: 1(931)[address] [place], [place] [address]708-21-2024 15:21-0400Body aqrdzc268 cm Jeanine Rine [employer] Work Phone: 1(777)144[facility]27[place] [address]Gushdosqmt82-42-5527 15:21-0400Body mass index (BMI) [Ratio]38.09 kg/w7Ruuvl Rine [employer] Work Phone: 1(060)[address] [place] [address]-21-2024 15:21-0400Body temperature 98.4 [degF]Jeanine Rine [employer] Work Phone: 1(247)[address] [place], [place] 92[address]708-21-2024 15:21-0400Body qowadk43.52 kgGerri Rine [employer] Work Phone: 1(722)[address]08-21-2024 15:21-0400Diastolic blood smflixdh69 mm[Hg]Jeanine Rine [employer] Work Phone: 1(415)[address] [place], [place] 92[address]708-21-2024 15:21-0400Heart rate84 /min Jeanine Rine [facility] [facility] Work Phone: 1(152)[address] [place] [address]-21-2024 15:21-0400Respiratory rate18 /minGerri Rine [facility] Work Phone: 1(895)602-41[facility] HospitalZtakyclgbp22-60-4758 15:21-2133ReL3% (BldA) [Mass fraction]95 %Jeanine Rine [employer] Work Phone: 1([phone] [address]-21-2024 15:21-0400Systolic blood aoinilvx633 mm[Hg]Jeanine Rine [employer] Work Phone: [phone] Healthcare Encounters Encounter DateEncounter TypeCare ProviderFacilityStart: 69-28-6526sydgocrwbl Jeanine Whitlock CNPFacility:[facility] CenterStart: 04-12-2025 End: 65-75-2081Hlwltlsdz Result EncounterGerri L Chinyere [facility] Work Phone: [phone] External Department UnsolicitedStart: 04-12-2025 End: 54-08-4147Pmqseofol Result EncounterGerri L Joselinee [facility] Work Phone: noms External Department UnsolicitedStart: 04-12-2025 ambulatoryGERRI L Felicita [facility]Start: 04-08-2025 End: 43-97-8232wmtndqmigxWGZUA L RINMorenita [facility] HospitalStart: 04-08-2025 End: 23-78-0691Mhungvjncs hospital visit by Michelle Wiggins MD Work Phone: [facility] Cardiac Cath/IR LabComment on above:Abnormal cardiovascular stress testStart: 04-07-2025 End: 59-56-8607Qijvfu flowsheetTyler Alt RNNO [place] Patient EducationStart: 04-07-2025 End: 96-02-6522Fxcxzfuwpv and management of inpatientTyler Alt RNNOMS [place] Patient EducationStart: 04-07-2025 End: 91-09-6884ljnhpyksvhXJHNW ALTNot AvailableStart: 04-06-2025 End: 89-69-4729NnvswqEkvhz L Joselinee [facility] [facility]NER Work Phone: noms [facility] MedicineComment on above:Type 2 diabetes mellitus without complication, without long-term current use of insulin (HCC)Start: 04-05-2025 End: 59-86-8713hcxzshjjsqWFTDQF Liban FRANCISNot AvailableStart: 04-05-2025 End: 00-42-3697Oosreb outpatient visit 15 minutesAlison Liban Francis PA Work Phone: noms [place] DermatologyComment on above:Seborrheic keratosis (Primary Dx); Melanocytic nevus of trunk; Londono angioma; Inflamed seborrheic keratosisStart: 03-23-2025 End: 96-60-2046Bxikou flowsheetGerri L Rine [facility] Work Phone: noms [facility] MedicineStart: 03-23-2025 End: 07-91-0689Zmcsmu flowsheetGerri L Rine [employer] Work Phone: noms [facility] MedicineStart: 03-23-2025 End: 30-45-0367Pkycuri encounter statusJeanine Whitlock [facility]ANNER Work Phone: [facility] Work Phone: Start: 03-23-2025 End: 11-86-1928Pjldydqi preventive med est patient 40-64yrsGclarence Whitlock [facility]ANNER Work Phone: noColumbus Regional Healthcare SystemComment on above:Wellness examination (Primary Dx); Type 2 diabetes mellitus with hyperglycemia, without long-term current use of insulin (HCC); Mild intermittent asthma without complication (HCC); ENRIQUE (generalized anxiety disorder); Severe single current episode of major depressive disorder, without psychotic features (HCC); Vitamin D deficiency; Panic disorder with agoraphobia; Primary hypertension; Primary insomnia; Degenerative cervical disc; Hallux rigidus, left foot; Hallux valgus (acquired), left foot; Acquired hypothyroidism; Obesity due to excess calories with serious comorbidity, unspecified class; Acute post-traumatic stress disorder; Environmental and seasonal allergies; Immunization due; Abnormal swallowingStart: 03-23-2025 End: 00-66-2559iqliytrlyrHWFEU L RINENot AvailableStart: 03-17-2025 End: 62-17-6942Zgrsba flowsheetTyler Alt RNANDREABayhealth Hospital, Kent Campusfin Patient EducationStart: 03-17-2025 End: 64-61-7573Kcarqhzjbo and management of inpatientTyler Alt RNNOMS [place] Patient EducationStart: 03-17-2025 End: 10-38-2689qdpoxidahzTECGG ALTNot AvailableStart: 03-16-2025 End: 71-00-3199NnsqcsLngfa L Rine [facility]NER Work Phone: [facility] SystemComment on above:Type 2 diabetes mellitus with hyperglycemia, with long-term current use of insulin (HCC)Start: 03-15-2025 End: 06-44-4152xzhqrdxjvyJNDAB Liban ORTIZEMenancyy [facility] HospitalStart: 03-15-2025 End: 99-47-7802Ygmdoktycw hospital visit by [facility] Nuclear MedicineComment on above:ArrivedStart: 03-12-2025 End: 99-69-2503swpilqicuiSVXIM L Ilanay [facility] HospitalStart: 03-12-2025 End: 40-29-9347Svsvtvaoua hospital visit by [facility] Nuclear MedicineComment on above:ArrivedAbnormal EKGStart: 03-08-2025 End: 13-86-7903KnlntvGrgot L Joselinee [facility] Work Phone: noms [facility] MedicineComment on above:Type 2 diabetes mellitus without complication, without long-term current use of insulin (HCC)Start: 03-03-2025 End: 28-54-6558pquxfgzpenTBAKT L Ilanay [facility] HospitalStart: 03-02-2025 End: 15-47-4764Huoumy outpatient new 45 Easton Schwartz MD Work Phone: noms [place] EndocrinologyComment on above:Type 2 diabetes mellitus with hyperglycemia, without long-term current use of insulin (HCC) (Primary Dx); Primary hypertension ; Vitamin D deficiency; Acquired hypothyroidism ; Encounter for dietary consultation; Class 2 severe obesity due to excess calories with serious comorbidity and body mass index (BMI) of39.0 to 39.9 in adult ([facility]-HCC)Start: 03-02-2025 End: 49-83-8159dhyogezwzkHJCZVAbril Hua AvailableStart: 02-19-2025 End: 02-63-5381Ltfeyhfiv encounterGerri L Rine [facility] Work Phone: noms [facility] MedicineStart: 02-17-2025 End: 83-34-9992Dlreordam encounterGerri L Rine [facility] Work Phone: noms [facility] MedicineComment on above:wrong pharmacyStart: 02-16-2025 End: 77-05-5870Wjqlxe outpatient visit 25 minutesGerri Liban Ortize [facility] Work Phone: noms [facility] MedicineComment on above:Type 2 diabetes mellitus with hyperglycemia, with long-term current use of insulin (HCC) (Primary Dx); BMI 39.0-39.9,adult; Mild intermittent asthma without complication (HCC); Acute upper respiratory infection; Type 2 diabetes mellitus without complication, without long-term current use of insulin (HCC)Start: 02-16-2025 End: 75-32-7047qgenxkiwjzEVXWO L RINENot AvailableStart: 02-16-2025 End: 20-58-7798Hmrfmm flowsheetGerri L Rine [facility] Work Phone: noms [facility] MedicineStart: 02-16-2025 End: 59-94-2578Zklhrx flowsheetGerri L Rine [facility] Work Phone: NOQN [facility] MedicineStart: 01-22-2025 End: 91-03-8192Tehjdzfoh encounterGerri L Rine [facility] Work Phone: noms [facility] MedicineStart: 01-10-2025 End: 79-46-0006FccucmXvsbcd E Fruth [facility] Work Phone: noms [facility] MedicineComment on above:Type 2 diabetes mellitus without complication, without long-term current use of insulin ([facility])Start: 12-31-2024 End: 32-04-4029Kmdedmgrx encounterCharlotte Caruso LPN Other Phone: noms [facility] MedicineComment on above:Med RefillStart: 12-14-2024 End: 97-87-2968Okykvndaf encounterGerri L Rine [facility] Work Phone: NOYQ TSR FMStart: 11-29-2024 End: 56-47-2585ZnpoiyUxegp L Rine [employer] [employer]NER Work Phone: NOMS TSR FMComment on above:Acquired hypothyroidism Start: 11-22-2024 End: 00-90-2640XjfoilPahxq L Rine [facility] Work Phone: NOMS TSR FMComment on above:Type 2 diabetes mellitus without complication, without long-term current use of insulin (HCC)Start: 11-17-2024 End: 51-13-8711PptiokPhiyu L Rine [facility] [facility] Work Phone: NOJI TSR FMComment on above:Type 2 diabetes mellitus with hyperglycemia, with long-term current use of insulin ([facility])Start: 11-13-2024 End: 51-11-7859Pkbnhbjep encounterJeanine Whitlock [facility] Work Phone: noms TSR FMComment on above:continuous glucose monitor Start: 10-14-2024 End: 88-26-4039CzwmmyKjjih L Rine [employer] Work Phone: noms TSR FMComment on above:Type 2 diabetes mellitus without complication, without long-term current use of insulinStart: 09-14-2024 End: 66-84-0979Mkoztt flowsheetJeanine Ortize [facility] Work Phone: noms TSR FMStart: 09-14-2024 End: 70-83-5185Itdgil flowsheetGerri Liban Ortize [employer] Work Phone: noms TSR FMStart: 09-14-2024 End: 66-06-5538Vwuhtx outpatient visit 25 minutesJeanine Whitlock [employer] Work Phone: noms TSR FMComment on above:Type 2 diabetes mellitus without complication, without long-term current use of insulin (Primary Dx); Primary hypertension ([facility]); BMI 39.0-39.9,adult; Dysuria; Wellness examination; Screening for deficiency anemia; Abnormal thyroid screen (blood); Screening, lipid; Vitamin D deficiencyStart: 09-14-2024 End: 99-91-3764Yuthfxf encounter statusJeanine Whitlock [facility]NER Work Phone: noms HealthcareStart: 09-14-2024 End: 59-03-2726tuxmgqaxgoSHYIT L RINENot AvailableStart: 08-26-2024 End: 05-50-7510DohfxhMknsrnz Chapman LPN Other Phone: noms TSR FMComment on above:Type 2 diabetes mellitus without complication, without long-term current use of insulin ([facility])Start: 08-04-2024 End: 12-66-9223brjzymwtcxLYPLG L RINEMercsd CortesTrenton HospitalStart: 08-04-2024 End: 07-16-4258Lmclgcwayu hospital visit by Chio Whitlock APRN - [facility] Work Phone: [facility] LABComment on above:HGSIL on cytologic smear of cervixStart: 07-10-2024 End: 79-30-6897Wmvjca flowsheetRachel E Fruth [facility] Work Phone: NOMS TSR FMStart: 07-10-2024 End: 46-65-6895Cdwpkx flowsheetRachel E Fruth [employer] Work Phone: NOMS TSR FMStart: 07-10-2024 End: 29-37-6735frtfdrrqvxGIJOKE E FRUTHNot AvailableStart: 07-10-2024 End: 78-15-6624Qwqmxm outpatient visit 15 minutesRachel E Fruth [facility] Work Phone: [facility] TSR FMComment on above:Acute non-recurrent maxillary sinusitis (Primary Dx)Start: 06-24-2024 End: 70-31-2692cqeptsndzzXxcyn Lynn Rine CNPFacility:[facility] Campustart: 06-19-2024 End: 39-69-6286msmvzayorsNJZEYF W HEDGESMercy [facility] HospitalStart: 06-19-2024 Encounter for gynecological examination (general) (routine) without abnormal findingsJEANINE Mims [facility] HospitalStart: 06-19-2024 End: 84-29-8897Zxuikri encounter procedureJeanine Whitlock APRN - [facility]NER Work Phone: [facility] HealthStart: 06-19-2024 End: 81-38-9740Nzrjscptnh hospital visit by physicianJeanine Whitlock APRN - [facility] TANNER Work Phone: mthz LaboratoryComment on above:STD exposure; Women's annual routine gynecological examinationStart: 06-16-2024 End: 59-32-2971Wyejuwqqw encounterJeanine Whitlock QUEBRACHO TANNER Work Phone: NOPY TSR FMComment on above:Referral; Brenda ResultsStart: 06-12-2024 End: 73-68-2737fqmoukdzeyJYQUJ L RINENot AvailableStart: 06-09-2024 End: 43-64-5108VyrcguYglfwy Armando Gilmore QUEBRACHO TANNER Work Phone: noms TSR FMComment on above:Acquired hypothyroidism (CMS/HCC)Degenerative cervical disc; Essential hypertension (CMS/HCC); Type 2 diabetes mellitus without complication, without long-term current use of insulin (CMS/HCC)Start: 06-08-2024 End: 91-50-2404Kzlill flowsheetGerri L Rine QUEBRACHO TANNER Work Phone: noms TSR FMStart: 06-08-2024 End: 48-54-4671Rcqftn flowsheetGerri L Rine QUEBRACHO TANNER Work Phone: NOVP TSR FMStart: 06-08-2024 End: 64-70-7402iksfwcycwbVFZJH L RINENot AvailableStart: 06-08-2024 End: 70-12-4578Snnnvu outpatient visit 15 minutesGerri L Rine QUEBRACHO TANNER Work Phone: NOJZ TSR FMComment on above:Type 2 diabetes mellitus without complication, without long-term current use of insulin (CMS/HCC) (P rimary Dx); Visit for screening mammogram; Morbid (severe) obesity due to excess calories (CMS/HCC)Start: 06-07-2024 End: 29-83-7001KvhyzjCjdiy L Rine QUEBRACHO TANNER Work Phone: NOMS TSR FMComment on above:Type 2 diabetes mellitus without complication, without long-term current use of insulin (CMS/HCC) (P rimary Dx)Start: 05-05-2024 End: 83-71-0242ItcphcWeiqw L Rine QUEBRACHO TANNER Work Phone: NOMS TSR FMComment on above:Type 2 diabetes mellitus without complication, without long-term current use of insulin (CMS/HCC) (P rimary Dx)Start: 05-04-2024 End: 11-07-6710DaozbhYljdx L Rine QUEBRACHO TANNER Work Phone: noMS TSR FMComment on above:Type 2 diabetes mellitus without complication, without long-term current use of insulin (CMS/[facility]) (P rimary Dx)Start: 05-03-2024 End: 82-24-6208Kfmdotspf encounterGerri L Rine QUEBRACHO TANNER Work Phone: NOMS TSR FMStart: 04-30-2024 End: 17-08-7625VgpkkcFqxec L Rine QUEBRACHO TANNER Work Phone: NOMS TSR FMComment on above:Type 2 diabetes mellitus with hyperglycemia, with long-term current use of insulin ([facility])Start: 04-03-2024 End: 33-25-3803Imdavz flowsheetAlison L Skylar PA Work Phone: NOMS TSR DERMStart: 04-03-2024 End: 79-25-3771Xreboe flowsheetAlison L Skylar PA Work Phone: NOMS TSR DERMStart: 04-03-2024 End: 95-81-7753Alalfj outpatient visit 15 minutesAlison Liban Francis PA Work Phone: NOMS TSR DERMComment on above:Seborrheic keratosis (Primary Dx); Melanocytic nevus of trunk; Inflamed seborrheic keratosis; Surgery, electiveStart: 03-27-2024 End: 57-14-9848WtwavdWyznyw Feucht MANOMS TSR FMComment on above:Type 2 diabetes mellitus without complication, without long-term current use of insulin ([facility])Start: 03-25-2024 End: 77-26-5108PzoktjRwquw L Rine QUEBRACHO TANNER Work Phone: NOMS TSR FMComment on above:Environmental and seasonal allergies; Pure hypercholesterolemia ([facility])Start: 03-10-2024 End: 65-29-1963Lurxewpaa encounterGerri L Rine QUEBRACHO TANNER Work Phone: NOMS TSR FMComment on above:update on dexcom and blood sugars; New Medication orderedStart: 03-06-2024 End: 13-65-3781Ljhzyh flowsheetGerri L Rine QUEBRACHO TANNER Work Phone: NOMS TSR FMStart: 03-06-2024 End: 11-32-3779Ohgkvp flowsBrianna Whitlock QUEBRACHO TANNER Work Phone: noms TSR FMStart: 03-06-2024 End: 93-92-9870Znkhlqi encounter statusJeanine Whitlock QUEBRACHO TANNER Work Phone: [facility] Work Phone: Start: 03-06-2024 End: 19-03-1630Hdgpjntp preventive med est patient 40-64yrsGerri Liban Whitlock QUEBRACHO TANNER Work Phone: noms TSR FMComment on above:Type 2 diabetes mellitus without complication, without long-term current use of insulin (CMS/HCC) (P rimary Dx); Wellness examination; Type 2 diabetes mellitus [...] left foot; Environmental and seasonal allergies; BMI 38.0-38.9,adultStart: 02-28-2024 End: 32-55-3454Jvttmfocx encounterAlyssa Feucht MANOMS TSR FMComment on above: Vaginitis/Bacterial VaginosisStart: 01-22-2024 End: 29-26-7715Gbobwr outpatient visit 25 minutesGerdenise Whitlock QUEBRACHO TANNER Work Phone: noms TSR FMComment on above:Other specified hypotension (Primary Dx); Type 2 diabetes mellitus without complication, without long-term current use of insulin (CMS/HCC)Start: 01-22-2024 End: 25-71-5295Ysxbme flowsBrianna Whitlock QUEBRACHO TANNER Work Phone: noms TSR FMStart: 01-22-2024 End: 53-91-6788Nugvzq flowsheetJeanine Whitlock QUEBRACHO TANNER Work Phone: NOMS TSR FMStart: 07-17-2023 End: 93-22-2791Kxxjcifma Result EncounterGeneric External Data ProviderNOMS External Department UnsolicitedStart: 07-17-2023 End: 21-95-0044Zlqcvhuop Result EncounterGeneric External Data ProviderNOMS External Department UnsolicitedStart: 07-15-2023 End: 73-62-3155shuqkddktbPMEPG L RINEMercy Castor HospitalStart: 07-15-2023 End: 42-41-6771Buscgsssxv hospital visit by physicianqueenie [facility] Dexa ScanComment on above:Age-related osteoporosis without current pathological fractureStart: 12-19-2022 End: 19-27-8646Fuuiacluru hospital visit by Chio Whitlock Work Phone: MTHZ LaboratoryStart: 12-06-2020 End: 97-92-5889Qvhdyojznh hospital [facility] by [facility] Room [address] [place] [address] RadiologyComment on above:Mild intermittent asthma without complicationStart: 07-20-2017 End: 48-72-0846Vojsdnrwin and management of inpatientJEANINE [facility] Procedures DateProcedureProcedure DetailPerforming ClinicianStart: 03-94-9653XT UGAlistair Whitlock QUEBRACHO TANNER Work Phone: Start: 31-62-2457Yxypmgxciqjl coronary intervention Jose Chávez DO Work Phone: Start: 23-46-7619CPVTUPXGOSU SKIN LESIONAlison Liban Francis PA Work Phone: Start: 32-24-3439Msiqu of free thyroxineJeanine Whitlock QUEBRACHO TANNER Work Phone: Start: 08-36-2981Hyymlovxmv spect multiple studies Jeanine Whitlock [employer]ICS F[employer]ICATOR AND ASSEMBLER - QUEBRACHO TANNER Work Phone: Start: 69-73-8670Jobg bld gluc mntr dev cleared fda spec home useAhmasin Schwartz MD Work Phone: Start: 15-87-7891Bnqj ia chlamydia trachomatisFawn Contreras MD Work Phone: Start: 87-27-2567Ntjdkbgaybd observation [Identifier] in Cervix by Cyto stainGerri Rine PLASTICS FABRICATOR AND ASSEMBLER - QUEBRACHO TANNER Work Phone: Start: 47-55-4233AbjewlvpcpiTmnmi Rine QUEBRACHO TANNER Work Phone: Start: 04-03-2024 End: 49-11-7813EFKQMVMPQFX OF LESIONAlison L Skylar PA Work Phone: Start: 00-39-8219SCGUGUXZTGD SKIN LESIONAlison L Skylar PA Work Phone: Start: 94-53-7271GWYH BONE DENSITY 2 SITESGeneric External Data ProviderStart: 90-19-9017Dbc bone density study 1/> sites axial Trever Tran MD Work Phone: start: 96-93-5572Gmmayrpgyaf observation [Identifier] in Cervix by Cyto stainGerri Rine PLASTICS FABRICATOR AND ASSEMBLER - QUEBRACHO TANNER Work Phone: Start: 49-35-4316XcylrldedvkYghnd Rine QUEBRACHO TANNER Work Phone: Start: 84-58-4264Castsdnhhjpqv metabolic panelHailey D Gregg PLASTICS FABRICATOR AND ASSEMBLER - QUEBRACHO TANNER Work Phone: Start: 38-18-1181Chjnl panelHailey D Gregg PLASTICS FABRICATOR AND ASSEMBLER - QUEBRACHO TANNER Work Phone: Start: 31-73-6771Uribk albumin quantitativeHailey D Gregg PLASTICS FABRICATOR AND ASSEMBLER - QUEBRACHO TANNER Work Phone: Start: 94-59-7600Elhzzylenl exam chest 2 viewsGerri L Rine Work Phone: Start: 59-13-5641BulpxnilhzaRqwsu Rine QUEBRACHO TANNER Work Phone: Start: 70-11-1779KfiblevydsiPgfvd Rine Work Phone: Start: 39-58-2529NJOU LAB REPORTGERRI RINEStart: 81-94-3263CDJIQTDGP PATIENTGERRI RINEStart: 15-79-7031IQDLVKLA OXYGEN THERAPY PROTOCOLGERRI RINEStart: 84-23-3488QBGAZPEDCALQ RINEStart: 08-74-0521XZAG CARDIACGERRI RINEStart: 86-33-0640PGKQ CODEGERRI RINEStart: 18-72-6336ZWSAVVR COMMUNICATIONGERRI RINEStart: 00-94-5300LTNZCLVE SITE CAREGERRI RINEStart: 91-25-9766IOWPGFVZU MONITORINGGERRI RINEStart: 62-79-2854WJZST SIGNSGERRI RINE Start: 50-18-2116AGPKONIU PATIENTGERRI RINEStart: 97-56-2959CCRSVACGBR CARDIAC HEEL SANDER RUBBER PROCEDUREGERRI RINEStart: 24-99-4884OYQKANYK OXYGEN THERAPY PROTOCOL JEANINE RINEStart: 56-79-0000YDHXXA AND OUTPUTGERRI RINEStart: 07-21-2017 DIAGNOSTIC CARDIAC HEEL SANDER RUBBER PROCEDUREGERRI RINEStart: 42-70-2561TIXWWBOIO MONITORINGGERRI RINEStart: 78-25-2085WDLAQOSY OXYGEN THERAPY PROTOCOLGERRI RINE Start: 18-01-2052RIEZFDWV RINEStart: 97-76-5034CSQDALUVOWPXK METABOLIC PANEL W/ REFLEX TO MG FOR LOW KGERRI RINEStart: 64-45-6570RHDWJSMLWDVAAM RINEStart: 51-56-9816KUJMK WEIGHTSGERRI RINEStart: 24-51-2056KDYOYM AND OUTPUTGERRI RINE Start: 35-79-5928DWQRMSSIBUYWGJ RINEStart: 60-75-5422OIXFUJPDCLEKTC RINEStart: 98-06-7263GCIHXD TEST REPORTGERRI RINEStart: 04-60-0180Aguhibdlih spect multiple studiesGERRI RINEStart: 45-99-2296Lsuam panelGERRI RINEStart: 52-54-9509S0, FREEGERRI RINEStart: 49-37-6893JJOGWMKDWOHTO RINEStart: 55-98-7002CBO WITH REFLEXGERRI RINEStart: 14-61-6717NUJBLVEH OXYGEN THERAPY PROTOCOLGERRI RINE Start: 07-20-2017(GXT) STRESS TEST EXERCISE W OUT MYOVIEWGERRI RINEStart: 13-08-8533AXLAZNSBW MONITORINGGERRI RINEStart: 88-78-2129HZDNA SIGNSGERRI CHINYERE Start: 57-47-1778IGCZTDCB OXYGEN THERAPY PROTOCOLGERRI RINEStart: 07-20-2017 INTAKE AND OUTPUTGERRI RINEStart: 68-55-4513LSWSTT PHYSICIAN (SPECIFY)JEANINE WHITLOCK Start: 84-05-1652WVJCC OXIMETRY SPOT CHECKGERRI RINEStart: 58-60-8675QOLPAPGMP MONITORINGGERRI RINEStart: 79-13-2496OX CONSULT TO CARDIOLOGYGERRI RINEStart: 66-86-2045DMVQS INTERMITTENT PNEUMATIC COMPRESSION DEVICEGERRI RINEStart: 42-38-9189RFTSDSH STATUS (DIRECT)JEANINE WHITLOCK Plan of Treatment DateCare ActivityDetailAuthorStart: 19-70-3257Jivopdweq for malignant neoplasm of cervixBon [facility] CenterStart: 90-31-8761Gwvwlrahq for malignant neoplasm of colonNOMS HealthcareStart: 25-40-3358Tnhakohxd for malignant neoplasm of colonBON [facility], INCStart: 94-65-1697Psxayqstl for malignant neoplasm of cervixPap smearBon [facility] CenterStart: 02-13-2027 DTaP/Tdap/Td vaccine (3 - Td or Tdap)DTaP/Tdap/Td vaccine (3 - Td or Tdap)[facility]AREStart: 09-26-0669Jwfjogkjs for malignant neoplasm of breast Breast cancer screenSentara Norfolk General HospitalStart: 89-35-3127Zorrpixrx for malignant neoplasm of cervixBon [facility] CenterStart: 00-43-5193Hblgfgna screeningDiabetes: Retinopathy ScreeningNOMS HealthcareStart: 04-05-2026 End: 10-97-0965Eydrhsu encounter ueezkmcsc76/03/2026 10:00 AM EST Office Visit [facility] [address] [place] [address] Amalia Francis, NAHED [address] [place] [address] NOMRoxann [facility] DermatologyStart: 03-23-2026 Urine screening for proteinDiabetes: Urine Protein ScreeningWright Memorial Hospital Start: 08-02-2025 End: 05-75-8308Pzliogm encounter klgibhztq58/02/2026 9:00 AM EST Office Visit [facility] [address] [place] [address] Linda Ayala MD [address] [place] [address] [place] [address] [facility]ARDI[facility] Part [facility] HospitalComment on above:Establish careStart: 06-28-2025 End: 49-94-0432Yzanhxl encounter procedureTOGUS [facility]OLOG[facility] Part [facility]bury HospitalComment on above:yearlyyearly/repeat papStart: 47-92-6565Tpqwzjmdyy A1c measurementDiabetes: Hemoglobin E5WBRSXWright Memorial Hospital Start: 06-23-2025 End: 77-02-1471Penzemawcw A1c/Hemoglobin.total in BloodHemoglobin A1c Lab Today Type 2 diabetes mellitus with hyperglycemia, without long-term current useof insulin (HCC) Expected: 06/23/2025 (Approximate), Expires: 03/23/2026[facility] Work Phone: Comment on above:Expected: 06/23/2025 (Approximate), Expires: 03/23/2026Start: 04-78-3501Gdkrnvxf screeningDiabetes: Retinopathy ScreeningMOAB REGIONAL [facility] HealthcareStart: 13-08-4456Mwfgedbqxx MonitoringDepression MonitoringBon [facility] CenterStart: 44-23-6075Gargamczs for malignant neoplasm of breastMammogramNOGA HealthcareStart: 26-76-9113Atvqegsto for malignant neoplasm of breastBreast cancer screenBON [facility], INCStart: 05-19-2025 End: 02-63-7358Scwmavz encounter /17/2025 11:30 AM EST Office Visit [facility] [place] [facility] [address] [place] [address] Cristina Escalante, QUEBRACHO TANNER [address] [place], [place] [id number] [facility] Patient EducationStart: 72-26-4600Kkytumiujy A1c measurementDiabetes: Hemoglobin U7LIQGW Healthcare Start: 05-17-2025 End: 78-91-1166Irtnlao encounter qpjiucglj81/15/2025 2:20 PM EST Office Visit [facility] [address] [place] [address] Jamie Schwartz MD [address] [place] [address] MIRLANDERoxann WinLep[place] EndocrinologyStart: 04-14-2025 End: 92-51-4392Ehyempy encounter procedureMercy Cardiology SpecialistComment on above:QUEBRACHO TANNER, cardiac clearance -- foot surgery -- Saw [facility] heart [facility], [facility] for [facility] heart [facility] -- does not remember the facility to get recordsStart: 04-12-2025 End: 36-88-7894Smxzueq encounter jivqxpgen25/10/2025 10:30 AM EST Appointment [facility] Radiology [address] [place], [place] [id number] media sched w [facility] RadiologyComment on above:media sched w pt Start: 04-05-2025 End: 73-24-5725Gqvdexa encounter procedureNOMS TSR DERMStart: 03-23-2025 End: 96-99-4752JJ Gastrointestinal tract upper Views W contrast POFL upper GI wo KUB Imaging Routine Abnormal swallowing Expected: 03/23/2025, Expires: 03/23/2026NOGA HealthcareComment on above:Expected: 03/23/2025, Expires: 03/23/2026Start: 03-23-2025 End: 75-05-1160Xpnyjei encounter procedureNOHills & Dales [facility] Hospital Family MedicineComment on above:Wellness examination (Primary Dx); Type 2 diabetes mellitus with hyperglycemia, without long-term current use of insulin (HCC); Vitamin D deficiency; ENRIQUE (generalized anxiety disorder); Panic disorder with agoraphobia; Severe single current episode of major depressive disorder, without psychotic features (HCC); Primary hypertension; Mild intermittent asthma without complication (HCC); Primary insomnia; Degenerative cervical disc; Hallux rigidus, left foot; Hallux valgus (acquired), left foot; Acquired hypothyroidism; Obesity due to excess calories with serious comorbidity, unspecified class; Acute post-traumatic stress disorder; Environmental and seasonal allergiesStart: 03-17-2025 End: 95-27-4076Nboznvoiha and management of mgtsvualz93/15/2025 1:00 PM EDT Clinical Support [facility] [address] [place] [address] Justin Spivey RNNOMS [place] Patient EducationStart: 03-15-2025 End: 35-12-3652Neaufyi encounter procedureNOMS TSR FMComment on above: rescheduled with patient. due to original testing issueStart: 03-13-2025 Hemoglobin A1c measurementDiabetes: Hemoglobin R5NINXBWright Memorial HospitalStart: 03-03-2025 End: 149320-crttyyknuzdvyi D3 [Mass/volume] in Serum or PlasmaVitamin D 25 hydroxy Total Lab Today Vitamin D deficiency Expected: 03/03/2025 (Approximate), Expires: 09/14/2025[facility] Work Phone: Comment on above:Expected: 03/03/2025 (Approximate), Expires: 09/14/2025Start: 03-03-2025 End: 82-89-8762ELL panel - Blood by Automated countCBC Lab Today Wellness examination Expected: 03/03/2025 (Approximate), Expires: 09/14/2025[facility] HealthcareComment on above:Expected: 03/03/2025 (Approximate), Expires: 09/14/2025Start: 03-03-2025 End: 90-69-0168Iasutmumgpndb metabolic 2000 panel - Serum or PlasmaCOMPREHENSIVE METABOLIC PANEL (REFL) Lab Today Wellness examination Expected: 03/03/2025 (Approximate), Expires: 09/14/2025[facility] HealthcareComment on above:Expected: 03/03/2025 (Approximate), Expires: 09/14/2025Start: 03-03-2025 End: 28-19-8943Mtbntebmsw A1c/Hemoglobin.total in BloodHemoglobin A1c Lab Today Type 2 diabetes mellitus without complication, without long-term current use of insulin Expected: 03/03/2025 (Approximate), Expires: 09/14/2025[facility] Comment on above:Expected: 03/03/2025 (Approximate), Expires: 09/14/2025Start: 03-03-2025 End: 39-23-7046Jwejm 1996 panel - Serum or PlasmaLipid panel Lab Today Wellness examination Expected: 03/03/2025 (Approximate), Expires: 09/14/2025[facility] HealthcareComment on above:Expected: 03/03/2025 (Approximate), Expires: 09/14/2025Start: 03-03-2025 End: 81-56-2180EQJ W/REFLEX TO FT4TSH W/REFLEX TO FT4 Lab Today Abnormal thyroid screen (blood) Expected: 03/03/2025 (Approximate), Expires: 09/14/2025[facility] HealthcareComment on above:Expected: 03/03/2025 (Approximate), Expires: 09/14/2025Start: 03-03-2025 End: 36-14-9831DBNUMUMVFN, COMPLETE W/REFLEX TO CULTUREURINALYSIS, COMPLETE W/REFLEX TO CULTURE Lab Today Dysuria Wellness examination Expected: 03/03/2025 (Approximate), Expires: 09/14/2025[facility] HealthcareComment on above:Expected: 03/03/2025 (Approximate), Expires: 09/14/2025Start: 03-03-2025 End: 34-04-2269Bcaqadjqya and management of zeeamceyq39/01/2025 1:00 PM EDT Clinical Support [facility] [address] [place] [address] Justin Spivey RNNOMS [place] Patient EducationStart: 03-02-2025 End: 18-48-9953Yhuxrqq encounter ygcppjufv96/30/2025 11:30 AM EDT Office Visit [facility] [address] [place] [address] Jamie Schwartz MD [address] [place] [address] [facility]UMRoxann [facility] EndocrinologyStart: 02-19-2025 End: 72-76-6209Baxpoku stress study ProcedureSTRESS TEST LEXISCAN Imaging Routine Abnormal EKG Expected: 02/19/2025 (Approximate), Expires: 02/19/2026[facility] Work Phone: Comment on above:Expected: 02/19/2025 (Approximate), Expires: 02/19/2026Start: 02-16-2025 End: 75-19-5730Gydvlrc encounter nuntyxhrq34/16/2025 2:30 PM EDT Office Visit [facility] [address] [place] [address] Jeanine Whitlock, QUEBRACHO TANNER [address] [place] [address] [facility]aComment on above:ArrivedStart: 10-55-1123CTDHK-19 Vaccine ( season)COVID-19 Vaccine ( season)[facility] HospitalStart: 95-00-6544PEUVE-19 Vaccine ( season)COVID-19 Vaccine ( season)[facility] Start: 71-10-3252Ruxsdtxxt vaccinationInfluenza Vaccine (#1)[facility] Start: 90-54-1927Xfnparoom vaccinationFlu vaccine (#1)[facility] Start: 03-35-1103Dywuizyllr A1c measurementDiabetes: Hemoglobin J0PQBSKWright Memorial HospitalStart: 12-01-2024 End: 27-99-0443Ckxmjejyqn A1c/Hemoglobin.total in BloodHemoglobin A1c Lab Today Type 2 diabetes mellitus without complication, without long-term current use of insulin Expected: 12/01/2024 (Approximate), Expires: 12/04/2024[facility] Comment on above:Expected: 12/01/2024 (Approximate), Expires: 12/04/2024Start: 22-84-5515Ooklp screening for proteinDiabetes: Urine Protein ScreeningNOMS HealthcareStart: 09-14-2024 End: 92-51-3940Uqmtiei encounter yrgzkguob86/14/2025 9:00 AM EDT Office Visit [facility] [address] [facility] [address] Jeanine Whitlock L, QUEBRACHO TANNER [address] [place], [place] [id number] ArrivedNOSAN JUAN REG[facility]ENTERR Comment on above:ArrivedStart: 09-11-2024 End: 68-24-8714Zevpyjc encounter somwgyvcv52/11/2025 9:00 AM EDT Office Visit [facility] [address] [place] [address] Jeanine Whitlock, QUEBRACHO TANNER [address] [place] [address] N[facility]S TSR FMStart: 06-12-2024 End: 62-32-0489Kfxeyywkiliz / ancillary services lemqhwiiuh56/10/2025 9:00 AM EST Ancillary Procedure [facility] [address] [place] [address] [facility]S [place] IMAGINGStart: 06-08-2024 End: 23-60-6662AV Breast - bilateral ScreeningBilateral screening mammogram Imaging Routine Visit for screening mammogram Expected: 06/08/2024 (Ap proximate), Expires: 08/03/2025[facility] Work Phone: Comment on above:Expected: 06/08/2024 (Approximate), Expires: 08/03/2025Start: 06-08-2024 End: 19-81-9479Czazxyp encounter todpoqkmn31/06/2025 9:30 AM EST Office Visit [facility] [address] [place] [address] Jeanine Whitlock, QUEBRACHO TANNER [address] [place], [place] [phone] N[facility] TSR FMStart: 74-13-0978Shtgtxyplo A1c measurement Diabetes: Hemoglobin N4HHKSA HealthcareStart: 01-38-7105Ofkeduhnq for malignant neoplasm of breastMammogramMOAB REGIONAL HOSPITAL HealthcareStart: 05-11-2024 End: 15-50-1372Woatfdn encounter nbbxixhuw64/09/2024 10:55 AM EST Office Visit [facility] [address] [place] [address] Kera Mac APRN-[employer]ODUCER [address] [place] [address] NOMS SWS DERMStart: 04-06-2024 End: 43-91-4222Uamnbvjacz A1c/Hemoglobin.total in BloodHemoglobin A1c Lab Today Type 2 diabetes mellitus without complication, without long-term current use of insulin ([facility]) Expected: 04/06/2024 (Approximate), Expires: 03/06/2025[facility] Work Phone: Comment on above:Expected: 04/06/2024 (Approximate), Expires: 03/06/2025Start: 04-03-2024 End: 67-48-4949Klunrkt encounter procedureNOSAN JUAN REGIONAL MEDICAL CENTERR DERMComment on above:Arrived Start: 03-06-2024 End: 22-10-5867Lcjdkfu encounter zypsovvba01/04/2024 9:00 AM EDT Office Visit [facility] [address] [place] [address] Jeanine Whitlock, QUEBRACHO TANNER [address] [place] [address] N[facility] TSR FMStart: 59-19-4492Qmcmknfcst A1c measurement Diabetes: Hemoglobin H4XHMXJ HealthcareStart: 45-59-6746VFWOA-19 Vaccine ( season)COVID-19 Vaccine ( season)[facility] Start: 28-26-0340REAMD-19 Vaccine ( season)COVID-19 Vaccine ( season)[facility] HospitalStart: 67-19-5900Zajfktzud vaccination Influenza Vaccine (#1)[facility] HealthcareStart: 01-22-2024 End: 43-96-6336Dekrzzy encounter wfsiegcnw02/21/2024 3:00 PM EDT Office Visit [facility] [address] [place] [address] Jeanine Whitlock Liban, QUEBRACHO TANNER [address] [place] [address] ArrivedNOMS TSR FMComment on above:ArrivedStart: 12-20-2023 GFR test (Diabetes, CKD 3-4, OR last GFR 15-59)GFR test (Diabetes, CKD 3-4, OR last GFR 15-59)[facility]: 99-55-6091Xqtkbfrwsr A1c dbgfcuagxipA8B test (Diabetic or Prediabetic)[facility]: 29-66-1230Yumxo panelLipidsBON [facility]art: 36-83-1981Wlkjo screening for proteinDiabetic Alb to Cr ratio (uACR) testBON [facility]art: 37-67-2701Mbibjbifc vaccinationFlu vaccine (#1)[facility]: 36-34-7410Awrzgdanb vaccinationFlu vaccine (#1)[facility] Phone: start: 83-21-6673DEKOZ-19 Vaccine (3 - Booster for Moderna series)COVID-19 Vaccine (3 - Booster for Moderna series)[facility]: 90-60-1284Ttfcoeetr for malignant neoplasm of breastBreast cancer screenBON [facility]: 23-54-6172Gmphvcoqxj measurement Creatinine monitoringEast [facility] Regional HospitalTixers Work Phone: start: 77-77-0360VMY test (Diabetes, CKD 3-4, OR last GFR 15-59)GFR test (Diabetes, CKD 3-4, OR last GFR 15-59)[facility]: [phone] monitoringPotassium monitoringMerTixers Work Phone: start: [phone] panelBON [facility]: [phone] 0-64 years Vaccine (2 - PPSV23 if available, else PCV20)Pneumococcal 0-64 years Vaccine (2 - PPSV23 if available, else PCV20)[facility]: [phone] 0-64 years Vaccine (2 - PPSV23 or PCV20)Pneumococcal 0-64 years Vaccine (2 - PPSV23 or PCV20)[facility] [place]: 15-01-8522Cbdczigbbofi 0-64 years Vaccine (2 of 2 - PPSV23 or PCV20)Pneumococcal 0-64 years Vaccine (2 of 2 - PPSV23 or PCV20)[facility]: 19-84-8833Cezsixvoemwd 50+ years Vaccine (2 of 2 - PPSV23) Pneumococcal 50+ years Vaccine (2 of 2 - PPSV23)[facility]: 12-66-9499Odgueqrjfatl 50+ years Vaccine (2 of 2 - PPSV23, PCV20, or PCV21) Pneumococcal 50+ years Vaccine (2 of 2 - PPSV23, PCV20, or PCV21)[facility]: 84-23-2270Rhvuxizqdrib Vaccine: Pediatrics (0 to 5 Years) and At-Risk Patients (6 to 64 Years) (2 of 2 - PPSV23, PCV20, or PCV21)Pneumococcal Vaccine: Pediatrics (0 to 5 Years) and At-Risk Patients (6 to 64 Years) (2 of 2 - PPSV23, PCV20, or PCV21)[facility]: 40-28-1777Euomnmtr Vaccine (1 of 2)Shingles Vaccine (1 of 2)[facility]: 03-13-2017 DTaP/Tdap/Td Vaccines (2 - Td or Tdap)DTaP/Tdap/Td Vaccines (2 - Td or Tdap)[facility]: 97-10-7678Tpckixgob for malignant neoplasm of [facility]: 86-31-1811Qiajwjvzbe A1c xsauktlfhceC3G test (Diabetic or Prediabetic)[facility]: 00-40-9349Rvnxotepu for malignant neoplasm of cervixShenandoah Memorial Hospital: 67-58-3005Klhuccufh for malignant neoplasm of cervixShenandoah Memorial Hospital: 30-03-7840Ruvrraend B vaccine (1 of 3 - 19+ 3-dose series)Hepatitis B vaccine (1 of 3 - 19+ 3-dose series)[facility]: 51-19-4280Gouwtntrm B vaccine (1 of 3 - Risk 3-dose series)Hepatitis B vaccine (1 of 3 - Risk 3-dose series)[facility]: 40-54-3547Dzjdmikd microalbuminuria testDiabetic microalbuminuria testTrumbull Regional Medical Center [employer] [facility] Phone: start: 51-97-0003Mcgurmby screeningDiabetic retinal examShenandoah Memorial Hospital: 69-18-0831Rxkopieco C screeningHepatitis C screenShenandoah Memorial Hospital: 19-65-4618Eikfz screening for protein Diabetic Alb to Cr ratio (uACR) testShenandoah Memorial Hospital: 75-61-1017JPA screeningHIV screenShenandoah Memorial Hospital: 63-22-8159Skosdzgqsz MonitoringDepression MonitoringShenandoah Memorial Hospital: 39-52-9822Uxxiwpmn foot examinationDiabetic foot examShenandoah Memorial Hospital: 1977 Diabetic retinal examDiabetic retinal examUniversity [facility]als [facility] Phone: start: 46-29-7119Hmogrylltkra 0-64 years Vaccine (1 of 2 - PPSV23)Pneumococcal 0-64 years Vaccine (1 of 2 - PPSV23)[facility] Phone: start: 76-23-6534AUM Vaccines (1 of 1 - Standard series)MMR Vaccines (1 of 1 - Standard series)[facility]: 01-23-1966 COVID-19 Vaccine (#1)COVID-19 Vaccine (#1)[facility]: 98-97-0544Wshhwmfas B vaccine (1 of 3 - 3-dose series)Hepatitis B vaccine (1 of 3 - 3-dose series)[facility]: 76-51-7747Hsjznfyan C screening Hepatitis C screenTrumbull Regional Medical Center [employer] Phone: start: 07-01-8745Xzaqjtcqk for malignant neoplasm of colonNOMS HealthcareChlamydia/GC DNA, Thin PrepChlamydia/GC DNA, Thin Prep Microbiology Routine STD exposure 06/19/2024 9:43 AM [facility] [employer] End: 63-44-5102Jvwwjifopqmiw procedure, preparation of smear, genital sourcePAP SMEAR Lab Routine Women's annual routine gynecological examination 1 Occurrences starting 06/19/2024 until 06/19/2024 60mo Phone: Comment on above:1 Occurrences starting 06/19/2024 until 06/19/2024 End: 31-33-7890Wyglrdoaez A1c/Hemoglobin.total in [facility] [employer] Phone: Comment on above:Once for 1 Occurrences starting 12/19/2022 until 12/19/2022 End: 60-03-4206Nfylawctwynz pulse oximetryPulse Oximetry Spot Check Respiratory Care Routine One Time for 1 Occurrences starting 04/08/2025 until 04/08/2025 [employer] on above:One Time for 1 Occurrences starting 04/08/2025 until 04/08/2025 End: 61-55-5424Qlxauau stress test with myocardial perfusionHoly Cross Hospital [employer]Comment on above:1 Occurrences starting 03/12/2025 until 03/12/2025Oxygen therapy [Minimum Data Set]Initiate Oxygen Therapy Protocol Respiratory Care Routine As Needed until discontinued starting 04/08/2025 [employer] Comment on above:As Needed until discontinued starting 04/08/2025Oxygen therapy [Minimum Data Set]Initiate Oxygen Therapy Protocol Respiratory Care Routine As Needed until discontinued starting 04/08/2025 [employer]Comment on above:As Needed until discontinued starting 04/08/2025 End: 16-82-9808Opgpqnhih studySurgical Pathology Lab Routine HGSIL on cytologic smear of cervix 1 Occurrences starting 08/04/2024until 08/04/2024on 60mo Phone: Comment on above:1 Occurrences starting 08/04/2024 until 08/04/2024 End: 72-96-2874AYHFIJZZ PATHOLOGY REPORTSURGICAL PATHOLOGY REPORT Lab Routine Once for 1 Occurrences starting 08/04/2024 until 08/04/2024on [facility] on above:Once for 1 Occurrences starting 08/04/2024 until 08/04/2024 Immunizations Immunization DateImmunizationNotesCare XwgvtniwVpzodlgc82-25-8433dftzjodmo, seasonal, injectable, preservative freeGerri Rine [employer] Work Phone: [phone] [place], [place] [address]Entprtbjaf63-93-1795badoadnat, injectable, quadrivalent, preservative freeGerri Rine [employer] Work Phone: [phone] [place], [place] [address]Vcnurrfhwr09-73-9181misljjmpu virus vaccine, unspecified formulationGerri Rine [employer] Work Phone: [phone] [place], [place] [address]Sfhzydsvhi15-51-9827riayykrrc, injectable, quadrivalent, preservative freeGerri Rine [employer] Work Phone: [phone] [place], [place] [address]Mnczwfgmau01-78-9082cfptibzut virus vaccine, unspecified formulationGerri Rine [employer] Work Phone: [phone] [place], [place] [address]Bjclugzuqe98-62-7260rvmqpeydu, injectable, quadrivalent, preservative freeGerri Rine [employer] Work Phone: [phone] [place], [place] [address]Fnblqkvdfq46-28-8329pdcfww vaccine recombinant Jeanine Rine [employer] Work Phone: [phone] [place], [place] [address]Xlpbnvljal91-88-1259xsrsskeax virus vaccine, unspecified formulationGerri Rine [employer] Work Phone: [phone] [place], [place] [address]Nwtacnpxio51-26-4577eflwlgutq, injectable, quadrivalent, preservative freeGerri Rine [employer] Work Phone: [phone] [place], [place] [address]Abvcgabzdn86-21-0401ingxux vaccine recombinant Jeanine Rine [employer] Work Phone: [phone] [place], [place] [address]Mhvgevyobn13-74-6400stwduefcd virus vaccine, unspecified formulationGerri Rine [employer] Work Phone: [phone] [place], [place] [address]Wwsufdwuob68-93-7080phapubqta, injectable, quadrivalent, preservative freeGerri Rine [employer] Work Phone: [facility] HospitalSwxyilsugp42-06-2716efrwwlemyqli conjugate vaccine, 13 valentGerri Rine [employer] Work Phone: [facility] HospitalQjtleheqva17-62-5372xzjweskgr virus vaccine, unspecified formulationGerri Rine [employer] Work Phone: [phone] HospitalPvqwspkowk45-88-6219rylrqacmj, injectable, quadrivalent, preservative freeGerri Rine [employer] Work Phone: [phone] HospitalKnysxfblte36-59-8699yhptiwz toxoid, reduced diphtheria toxoid, and acellular pertussis vaccine, adsorbedGerri Rine [employer] Work Phone: [phone] HospitalDnutqaajhm11-74-3149zomqxda toxoid, reduced diphtheria toxoid, and acellular pertussis vaccine, adsorbedGerri Rine [employer] Work Phone: [facility] HospitalRteqqp88-86-4997ssutibwtx B vaccine, adult dosageGerri Rine [employer] Work Phone: [phone] HospitalOziddcwfgv89-92-6972jjokxraqq B vaccine, adult dosageGerri Rine [employer] Work Phone: [phone] HospitalUsljtcamfw66-47-0511suiihuaim B vaccine, adult dosageGerri Rine [employer] Work Phone: [facility] HospitalAiorjquzxd24-77-7049vtzotkalt B vaccine, adult dosageGerri Rine [employer] Work Phone: [phone] Healthcare Payers DatePayer CategoryPayerPolicy [id number] Care O (unspecified) [id number] Health Insurance [id number] Health [id number] [facility] [address] [id number] 2019-Present [address] [place] [id number] [id number] 2.16840.1.588469.3.57[id number] 2.840.1.022673.3.57[id number] 2.840.1.593350.3.57[id number] 2.840.1.074625.3.57[id number] 2.840.1.094070.3.57[id number] 2.0.1.155466.3.57[id number] 2.0.1.496555.3.57[id number] 2.0.1.995513.3.57[id number] 2.840.1.720598.3.57[id number] 2.840.1.680146.3.57[id number] 2.840.1.889023.3.57[id number] 2.840.1.869332.3.57[id number] 2.840.1.843054.3.57[id number] 2.16.840.1.274791.3.57[id number] 2.16.840.1.788609.3.57[id number] 2.16.840.1.031501.3.57[id number] 2.16.840.1.455850.3.57[id number] 2.16.840.1.299534.3.57[id number] 2.16.840.1.234809.3.57[id number] 2.16.840.1.112453.3.57[id number] 2.16.840.1.654449.3.57[id number] 2.16.840.1.313521.3.579.2.173 Social History DateTypeDetailFacilityStart: 01-23-2018 End: 13-24-2270Vdtlqos smoking status [facility] smokerB[facility] [employer] Start: 01-23-2018 End: 28-38-6611Wwkafhr use and exposureNever [facility] ClaremoreSmart Education [facility] HospitalStart: 01-23-2018 End: 24-05-5078Ekthrtl intakeCurrent non-drinker of alcohol (finding)[facility] [employer] Phone: start: 68-44-7907Itc Assigned At BirthNot on [facility]burgBl[facility] Phone: start: 01-25-2019 End: 29-42-2505Pqdmnab of Social functionNOGA HealthcareStart: 01-25-2019 End: 73-63-6023Xbxxqzw use panelMOAB REGIONAL [facility]OSPITAL HealthcareStart: 01-22-2024 End: 74-06-7963Ofqipxmze beverage intakeCurrent drinker of alcohol (finding)[facility] HospitalStart: 51-69-4549Tbq often do you need to have someone help you when you read instructions, pamphlets, or other written material from your doctor or pharmacy [SILS]NeverNOMS HealthcareDo you belong to any clubs or organizations such as zoroastrianism groups, unions, fraternal or athletic groups, or school groups? YesNOMS HealthcareAre you now , , , , never or living with a partner?DivorcedNOMS HealthcareHow often to you have a drink containing alcohol?Monthly or lessNOMS HealthcareHow many standard drinks containing alcohol do you have on a typical day?1 or 2NOMS HealthcareHow often do you have 6 or more drinks on 1 occasion?NeverNOMS HealthcareHow hard is it for you to pay for the very basics like food, housing, medical care, and heating Somewhat hardNOMS HealthcareDo you feel stress - tense, restless, nervous, or anxious, or unable to sleep at night because yourmind is troubled all the time - these days [OSQ]Very muchNOMS Healthcare(I/We) worried whether (my/our) food would run out before (I/we) got money to buy more.Never trueNOMS HealthcareIn the past 12 months, was there a time when you were not able to pay the mortgage or rent on time?NoNGRADY MEMORIAL [facility] HealthcareStart: 18-78-3193Hxl assigned at birthFemale [facility] HospitalStart: 48-77-0023Bdoblg identityIdentifies as female gender (finding)[facility] HealthcareHow often to you have a drink containing alcohol?2-4 times a monthNOMosaic Life Care at St. JosephStart: 88-43-3964UksKcahrw (finding)Darell JacobsonChristus [facility] HealthStart: 36-88-4646Dsylljnjm beverage intakeLifetime non-drinker (finding)[facility] Medical Equipment Procedure CodeEquipment CodeEquipment Original TextEquipment IdentifierDates [id number], [id number]: 11-19-2023 Functional Status MzipGnjvnxxvzwCrgxwnFudxviyp22-16-5613Ajveedc Health Questionnaire 2 item (PHQ- 2) [Reported][facility] HospitalKvchztxomt48-64-1431Zcqgc score [AUDIT-C]1 01/22/2024 11:12 AM EDT Mychart, GenericNOMS Pdzdlvhoem40-11-6424Gfs often do you have a drink containing alcohol?Monthly or less 01/22/2024 11:12 AM EDT Mychart, Generic Monthly or lessNOMS Pvstrluozy05-24-2080Xgg many standard drinks containing alcohol do you have on a typical day?1 or 2 01/22/2024 11:12 AM EDT Mychart, Generic 1 or 2NOMS Iscsdhhcfk47-31-8621Fnx often do you have 6 or more drinks on 1 occasion?Never 01/22/2024 11:12 AM EDT Mychart, Generic NeverW[facility] Hospital 18-81-5669Exwrbyd Health Questionnaire 2 item (PHQ-2) [Reported][facility] Clinical Notes 01-22-2024 to 04-08-2025 Note Date & GojaGwqmKhmvsqcz57-99-3788 History of Present illness Narrative* Huma Lewis RN - 04/08/2025 4:12 PM EST Inpatients must meet criteria 1 through 7. 1. Minimum 30 minutes after last dose of sedative medication, minimum 120 minutes after last dose of reversal agent. Yes 2. Systolic BP stable within 20 mmHg for 30 minutes & systolic BP between 90 & 180 or within 10 mmHg of baseline. Yes 3. Pulse between 60 and 100 or within 10 bpm of baseline. Yes 4. Spontaneous respiratory rate >/= 10 per minute. Yes 5. SaO2 >/= 95 or >/= baseline. Yes 6. Able to cough and swallow or return to baseline function. Yes 7. Alert and oriented or return to baseline mental status. Yes 8. Demonstrates controlled, coordinated movements, ambulates with steady gait, or return to baseline activity function. Yes 9. Minimal or no pain or nausea, or at a level tolerable and acceptable to patient. Yes 10. Takes and retains oral fluids as allowed. Yes 11. Procedural / perioperative site stable. Minimal or no bleeding. Yes 12. If GI endoscopy procedure, minimal or no abdominal distention or passing flatus. Yes 13. Written discharge instructions and emergency telephone number provided. Yes 14. Accompanied by a responsible adult. Yes Adult patient discharged from facility without responsible person meets above criteria plus the following: a) remains awake without stimulus for 30 minutes b) oriented appropriate for age c) all vital signs stable d) no significant risk of losing protective reflexes e) able to maintain pre-procedure mobility without assistance f) no nausea or dizziness g) transportation arrangements that do not require patient to operate motor Vehicle. Yes * Huma Lewis RN - 04/08/2025 4:07 PM EST Discharge instructions given to pt and daughter, all questions answered. Pt dressed and ready for d/c. Pt left department independently, with daughter, to home. Belongings in hand, no issues noted. * Huma Lewis RN - 04/08/2025 2:33 PM EST Pressure dressing loosened at this time without any bleeding noted. Patient instructed on how and when to remove dressing at home this evening. Pt verbalized understanding. Care continues documented in this encounterBon [facility] Hospital Discharge instructions* Discharge Instructions* Huma Lewis RN - 04/08/2025 12:43 PM EST Discharge Instructions for Cardiac Catheterization A cardiac catheterization is a diagnostic test used to evaluate the health of the heart and its blood vessels. The test is done with a thin catheter carefully threaded into your heart from a leg or arm artery. Most likely, you will be allowed to go home the same day as the procedure. Steps to Take at Home: Pain- apply ice to site 15-20 minutes every hour for the first 2 days. Showering is okay 24 hours after procedure. No soaking in a pool, hot tub, bath tub, or standing water for one week. Bleeding (outward or under the skin-hematoma)- apply firm pressure for 10-15 minutes or until the bleeding stops, then call your doctor. If unable to get bleeding stopped, call 911. Kidney damage- Call if you urinate less than normal, have swelling or feel puffy, and/or gain 2 or more pounds over night in the first week. If procedure was in ARM: You were instructed to keep wrist straight and still for two hours after the procedure. The arm andhand may now be used for normal daily activities except, avoid using the heal of hand while gettingup and down from furniture for the first few days. Keep affected arm elevated, hand higher than elbow, while pressure dressing in place to decrease swelling. 1) Gauze and Elastoplast Remove in 4 hours as follows: TIME 8:00pm Remove 1 piece of tape at a time, waiting 15 -20 minutes between layers to monitor for bleeding. If dressing sticks, place wrist under cool running water to help loosen gauze from site then pat site dry. If hand feels numb, tingly, and/or cold- loosen first 1-2 layers of tape if dressing still in place. If no relief noticed, remove pressure dressing as per above instructions. Seek medical help ifno relief or if dressing already off. Diet Drink plenty of fluids after the test to flush the x-ray dye from your system. Return to your normal diet. No alcoholic beverages for 24 hours after the procedure. Sedation The sedative will make you sleepy. Rest until the effects have worn off. Nausea and vomiting from the sedative is normal and usually does not last long. Ask your doctor when you will be able to return to work. Do not drive, operate machinery, do anything that requires attention to detail, or sign important papers for at least 24 hours or until your doctor says it is safe. Do not sit for long periods of time. Try to change positions frequently. Medications Resume taking your normal medicines as advised. Use acetaminophen (Tylenol) for pain relief. (Avoid anti-inflammatory drugs such as- ibuprofen (Advil, Motrin), naproxen sodium (Aleve), Excedrin for a few days) If you had to stop taking these medications before the procedure, ask your doctor when you can resume taking them: Anti-inflammatory drugs Blood thinners, such as warfarin (Coumadin) If you are taking medicines, follow these general guidelines: Take your medicine as directed. Do not change the amount or the schedule. Do not stop taking them without talking to your doctor. Do not share them. Know the side effects and report any to your doctor. Some drugs can be dangerous when mixed. Talk to a doctor or pharmacist if you are taking more than one drug. This includes pmyp-gmn-pjczwve medicine and herb or dietary supplements. Plan ahead for refills so you don't run out. Follow-up The test results are available right after the procedure. At that point, the doctor will discuss the findings and suggest appropriate treatment options. In some cases, the results can indicate an immediate need for surgery. Schedule a follow-up appointment as directed by your doctor. Call Your Doctor at [phone] or go to the closest Emergency department if Any of the Following Occurs: Signs of infection- including fever and chills Redness, swelling, increasing pain, feels warm to touch, red streak forming from site, or any discharge from the procedure site. Call 911 If Any of the Following Occurs Drooping facial muscles Changes in vision or speech Difficulty walking or using your limbs Change in sensation, including numbness, feeling cold, or change in color Extreme sweating, nausea or vomiting Dizziness or lightheadedness Chest pain Rapid, irregular heartbeat Palpitations Cough, shortness of breath, or difficulty breathing Weakness or fainting If you think you have an emergency, CALL 911 documented in this encounterBon [facility]11[facility] History of Present illness Narrative* NAHED Mcnally - 04/05/2025 9:50 AM EST Skin Check Location: Patient requests a full body skin examination Dermatologic history: no history of skin cancer, no history of atypical moles Last visit: 1 year ago Established patient Lesions: Location: chest, right arm Duration: months Quality: denies pain, denies itch, denies bleeding Modifying factors: aggravated by picking Associated symptoms: rough Treatments: none All pertinent medical history, medications, and allergies were reviewed. General Exam: alert, oriented to person, place, and time, normal affect, well appearing Unaccompanied Scalp, Examined Right leg Examined Head, Face Examined Left leg Examined Neck Examined Right foot Examined Chest Examined off Left foot Examined Back Examined Buttocks Examined Patient kept underwear on Abdomen Examined Digits,nails: Examined Right arm Examined Patient wearing nail wolof, Denies dark streaks on toenails Left arm Examined Lymphatics: Not examined Hands Examined Skin Exam 1. SEBORRHEIC KERATOSIS Generalized Stuck on verrucous, variably pigmented papules and plaques. Patient was counseled regarding these benign growths. Removal is normally not necessary, but they may be removed if they are symptomatic or for cosmetic reasons. 2. MELANOCYTIC NEVUS OF TRUNK Generalized Scattered benign appearing, regular brown to light brown melanocytic papules and macules with similar morphology Counseled regarding these benign growths. Rarely, a nevus can develop into malignant melanoma, so any changing nevi should be promptly re-evaluated. 3. LONDONO ANGIOMA Chest (Upper Torso, Anterior) Scattered londono-red papule(s). The patient was informed that angiomas are benign growths on the the skin. No treatment is necessary. 4. INFLAMED SEBORRHEIC KERATOSIS (5) Left Forearm - Posterior (4), Right Forearm - Posterior Inflamed seborrheic keratoses: pink and brown stuck [...] office if abnormal redness or tenderness develops atthe treatment site. Cryotherapy today, see procedure note. Diagnosis: Inflamed seborrheic keratosis Indication: Inflamed Consent: Verbal consent was obtained and risks were discussed, including, but not limited to risks of scarring, darker or candle wicker pigmentary changes, recurrence, incomplete removal and infection. Method: Liquid nitrogen was used to treat the lesion(s) with two 5-10 second freeze-thaw cycles Number of lesions treated: 5 Post-procedure instructions: Instructions were given orally and in writing. The office will be contacted if the lesion fails to resolve despite treatment, or if a side effect develops such as abnormal crusting, scabbing, redness or tenderness - Cryotherapy, skin lesion - Left Forearm - Posterior (4), Right Forearm - Posterior Next Visit: 1 year documented in this encounterWright Memorial HospitalDvxiclhngw81-56-6643 History of Present illness Narrative* Jeanine Whitlock NP - 03/23/2025 9:00 AM EDT Images from the original note were not included. Aishwarya Aguila is a 59 y.o. 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 No GI/ issues No skin changes No MS changes-chronic pain in the right foot , awaits surgery per dr piper, awaits follow up on abn stress test/12 lead ekg Good water intake, rare soda, rare etoh, nonsmoker Sleep is somewhat poor, has upcoming sleep medicine [facility] in September She is concerned that her oxygen levels remain low at hs despite cpap, sister with similar problem,fatigued more than she would like Keeping a food journal for justin tita ALMENDAREZ, has found this to be helpful SUBJECTIVE: MEDICATIONS: Current Outpatient Medications Medication Instructions alendronate (FOSAMAX) 70 mg, Every 7 days ALPRAZolam (XANAX) 0.25 mg, Nightly PRN amLODIPine (NORVASC) 5 mg, Oral, Every morning ARIPiprazole (ABILIFY) 5 mg, Daily Ascorbic Acid (Vitamin C) 500 MG capsule Every 24 hours aspirin 81 mg, Daily atorvastatin (LIPITOR) 10 mg, Oral, Every morning B Complex Vitamins (B COMPLEX 1 PO) bisoprolol (ZEBETA) 10 mg, Oral, Every morning chlorthalidone (Hygroton) 50 MG tablet TAKE 1 TABLET EVERY MORNINGWITH FOOD Continuous Glucose Sensor (Dexcom G7 Sensor) misc USE DIRECTED AND CHANGE EVERY 14 DAYS DULoxetine (CYMBALTA) 60 mg, Daily escitalopram (LEXAPRO) 10 mg, Daily estradiol (Estrace) 0.1 MG/GM vaginal cream PLACE 1 GRAM VAGINALLY DAILY FOR 14 DAYS THEN TWICE WEEKLY FreeStyle lancets glucose blood test strip Daily testing Jardiance 25 mg, Oral, Daily Lancet Devices (Autolet) lancing device Daily testing losartan (COZAAR) 50 mg, Oral, Daily meloxicam (MOBIC) 15 mg, Oral, Every morning metFORMIN XR (Glucophage-XR) 500 MG 24 hr tablet TAKE 2 TABLETS EVERY MORNING AND 2 TABLETS BEFORE BEDTIME montelukast (SINGULAIR) 10 mg, Oral, Every morning Ozempic (2 MG/DOSE) 2 mg, Subcutaneous, Weekly pioglitazone (ACTOS) 15 mg, Oral, Daily Synthroid 100 MCG tablet TAKE 1 TABLET IN THE MORNING BEFORE A MEAL therapeutic multivitamin-minerals (Theragran-M) tablet 1 tablet, Daily zinc gluconate 50 mg, Daily ALLERGIES: Allergies[1] SURGICAL HISTORY: Surgical History[2] FAMILY HISTORY: Family History[3] SOCIAL HISTORY: Social History[4] Depression: Not at risk (03/23/2025) PHQ-2 PHQ-2 Score: 2 REVIEW OF SYMPTOMS: Review of Systems Constitutional: [...] and flank pain. Musculoskeletal: Negative for arthralgias. Skin: Negative. Neurological: Negative for dizziness, syncope and light-headedness. Psychiatric/Behavioral: Negative. Hematological: Negative for adenopathy. Does not bruise/bleed easily. Endocrine: Negative for polydipsia. See hpi Allergic/Immunologic: Positive for environmental allergies. Negative for food allergies. OBJECTIVE: Visit Vitals BP 112/72 (BP Location: Left arm, Patient Position: Sitting, BP Cuff Size: Adult) Pulse 63 Temp 98.3 F (Tympanic) Resp 18 Ht 5' 3 Wt 226 lb 12.8 oz SpO2 95% BMI 40.18 kg/m OB Status Hysterectomy Smoking Status Never BSA 2.14 m Physical Exam Constitutional: Appearance: Normal appearance. HENT: Head: Normocephalic. Right Ear: Tympanic membrane [...] Cervical back: Normal range of motion. Comments: Slightly arthritic gait for age No foot exam accomplished today Lymphadenopathy: Cervical: No cervical adenopathy. Skin: General: Skin is warm and dry. Capillary Refill: Capillary refill takes less than 2 seconds. Neurological: General: No focal deficit present. Mental Status: She is alert and oriented to person, place, and time. Psychiatric: Mood and Affect: Mood normal. Comments: Alert and interactive Wt up [address] verma's endo note of 03-02-25, added actos Rev stress test if 03-15-25m concern for perfusion defect ASSESSMENT AND PLAN: Assessment/Plan Diagnoses and all orders for this visit: Wellness examination Comments: whole foods diet, more veggies/fiber . update vaccines. Type 2 diabetes mellitus with hyperglycemia, without long-term current use of insulin ([facility]) Comments: 7.2% on 02-16-25, keep appt with dr verma 05-17-25 Orders: - Hemoglobin A1c; Future Mild intermittent asthma without complication ([facility]) Comments: good control ENRIQUE (generalized anxiety disorder) Comments: good control at this time Severe single current episode of major depressive disorder, without psychotic features ([facility]) Vitamin D deficiency Comments: update lab, last 57 Orders: - Vitamin D 25 hydroxy; Future Panic disorder with agoraphobia Comments: well controlled at this time Primary hypertension Comments: good control Primary insomnia Comments: has upcoming appt with sleep medicine Degenerative cervical disc Comments: neck pain is stable Hallux rigidus, left foot Comments: follows with dr piper, awaits surgery on the rt foot Hallux valgus (acquired), left foot Comments: follows with dr piper, awaits surgery on the rt foot Acquired hypothyroidism Comments: levothyroxine 100mcg Orders: - TSH; Future - T4, free; Future Obesity due to excess calories with serious comorbidity, unspecified class Comments: encouraged to walk as able for exercise, add in some resistnace training Acute post-traumatic stress disorder Comments: sees dr grewal /oma santos QUEBRACHO TANNER every 3 months. Environmental and seasonal allergies Comments: good control Immunization due Comments: Flu vaccine given today, consider update covid in jun Orders: - Flu vaccine greater than or equal to 3 years old, PF IM (IMM19) Abnormal swallowing - FL upper GI wo KUB; Future Other orders - Follow Up In Family Medicine; Future ..I have reviewed and reconciled the history, allergies, family history, social history, and the medication list with the patient today. Follow up with Jeanine Whitlock in about 6 weeks (around 05/04/2025 early may recheck). [1] Allergies Allergen Reactions Iodides Heart Cath dye Iodinated Contrast Media Hives Lisinopril Cough Shellfish Protein-Containing Drug Products [2] Past Surgical History: Procedure Laterality Date CERVICAL DISC ARTHROPLASTY 12/2017 C 6-7 SECTION, CLASSIC FOOT SURGERY Left 01/14/2024 FOOT SURGERY Right 04/07/2024 HEART CATH 2008 and 07/2017 OTHER SURGICAL HISTORY 01/2018 Artifical disc- Dr. Lynn TONSILLECTOMY 1974 [3] Family History Problem Relation Name Age of Onset Diabetes Mother Hypertension Mother Heart disease Mother Stroke Mother Mental illness Mother depression Esophageal cancer Father Heart disease Father Mental illness Father Other (severe depression) Father Bipolar disorder Brother Mental illness Brother Other (Suicide) Son Alzheimer's disease Maternal Grandmother Lung cancer Paternal Grandfather [4] Social History Tobacco Use Smoking status: Never Smokeless tobacco: Never Vaping Use Vaping status: Never Used Substance Use Topics Alcohol use: Yes Drug use: Never documented in this encounterWright Memorial [id number] Instructions* Patient Instructions* Jeanine Whitlock NP - 03/23/2025 9:00 AM EDT Flu vaccine given today, consider update covid in jun Keep appt apr 14 with renetta mars at [facility] Keep in contact with dr piper Update the aic mid April Consider scheduling an upper Gi to evaluate the swallowing issue We will see about getting a night pulse oximeter study documented in this encounterWright Memorial [id number] History of Present illness Narrative* Yamilka Lan RN - 03/12/2025 10:00 AM EDT Instructed on objectives and procedure of lexiscan/cardiolite stress test. [facility] History of Present illness Narrative* Jamie Schwartz MD - 03/02/2025 11:30 AM EDT Aishwarya Aguila is a 59 y.o. female Jeanine Whitlock NP presents with chief complaint of Diabetes Mellitus (NEW REF LAB 02/19/25 A1C 7.2%) HPI: 02/2025 History of Present Illness The patient is a new patient sent from Jeanine Whitlock NP for uncontrolled diabetes. A1c is 7.2 but CGM showing higher, 0-18-82, average 215. She is currently on Ozempic 2 mg once weekly, metformin 500 mg2 tablets twice a day extended release, and Jardiance 25 mg once a day. She has had surgery on her right foot. No kidney problem. Results Laboratory Studies A1c is 7.2. CGM showing higher, 0-18-82, average 215. SUBJECTIVE: MEDICATIONS: Current Outpatient Medications Medication Instructions alendronate (FOSAMAX) 70 mg, Every 7 days ALPRAZolam (XANAX) 0.25 mg, Nightly PRN amLODIPine (NORVASC) 5 mg, Oral, Every morning ARIPiprazole (ABILIFY) 5 mg, Daily Ascorbic Acid (Vitamin C) 500 MG capsule Every 24 hours aspirin 81 mg, Daily atorvastatin (LIPITOR) 10 mg, Oral, Every morning B Complex Vitamins (B COMPLEX 1 PO) bisoprolol (ZEBETA) 10 mg, Oral, Every morning chlorthalidone (Hygroton) 50 MG tablet TAKE 1 TABLET EVERY MORNINGWITH FOOD Continuous Glucose Sensor (Bioapter G7 Sensor) misc USE DIRECTED AND CHANGE EVERY 14 DAYS DULoxetine (CYMBALTA) 60 mg, Daily empagliflozin (JARDIANCE) 25 mg, Oral, Daily escitalopram (LEXAPRO) 10 mg, Daily estradiol (Estrace) 0.1 MG/GM vaginal cream PLACE 1 GRAM VAGINALLY DAILY FOR 14 DAYS THEN TWICE WEEKLY FreeStyle lancets glucose blood test strip Daily testing Lancet Devices (Autolet) lancing device Daily testing losartan (COZAAR) 50 mg, Oral, Daily meloxicam (MOBIC) 15 mg, Oral, Every morning metFORMIN XR (Glucophage-XR) 500 MG 24 hr tablet TAKE 2 TABLETS EVERY MORNING AND 2 TABLETS BEFORE BEDTIME montelukast (SINGULAIR) 10 mg, Oral, Every morning Ozempic (2 MG/DOSE) 2 mg, Subcutaneous, Weekly pioglitazone (ACTOS) 15 mg, Oral, Daily Synthroid 100 MCG tablet TAKE 1 TABLET IN THE MORNING BEFORE A MEAL therapeutic multivitamin-minerals (Theragran-M) tablet 1 tablet, Daily traZODone (Desyrel) 150 MG tablet TAKE 1/2 TABLET BY MOUTH ONCE A DAY AT BEDTIME zinc gluconate 50 mg, Daily ALLERGIES: Allergies Allergen Reactions Iodides Heart Cath dye Iodinated Contrast Media Hives Lisinopril Cough Shellfish Protein-Containing Drug Products Past Medical History: Diagnosis Date Allergies Anxiety Asthma (HCC) COVID-19 vaccine administered x 2 (Moderna) Depression Diabetes (HCC) History of being hospitalized child 1992, 1996, 1994, 1999 History of being hospitalized 07/2017 History of being hospitalized no mental health hospitalization, no suicide attempts HPV (human papilloma virus) infection Hypertension Insomnia Thyroid disease Past Surgical History: Procedure Laterality Date CERVICAL DISC ARTHROPLASTY 12/2017 C 6-7 SECTION, CLASSIC FOOT SURGERY Left 01/14/2024 FOOT SURGERY Right 04/07/2024 HEART CATH 2008 and 07/2017 OTHER SURGICAL HISTORY 01/2018 Artifical disc- Dr. Lynn TONSILLECTOMY 1974 REVIEW OF SYMPTOMS: 14 POINT OF SYSTEM REVIEWED AND NEGATIVE OBJECTIVE: Constitutional: Afebrile @ home; no weakness or night sweats SKIN: No change in skin color; no itching, rash or lesions; no hair loss; HEENT: No HAs or injury; no dizziness; No difficulty with vision; no eye pain, discharge or lesions; no hearing loss or difficulty; no nasal discharge, NECK: No pain, limitation of motion, lumps or swollen glands RESP: No cough, wheezing or difficulty breathing. No CP with breathing; CARDIO: No CP , SOB or fatigue, No edema, palpitations or dyspnea with exertion GI: No N/V/D or abd. pain; good appetite with no recent change. No heart burn, liver or gallbladderdisease; no rectal bleeding or pain : No urinary pain , frequency or odor. MUSCULOSKELETAL: No muscle pain or cramps; no extremity weakness.No joint pain, stiffness, swellingor limitation of movement NEUROLOGY: No H/O seizures, stroke or fainting. No weakness, tremors. Hematology: No bleeding problems or excessive bruising ENDOCRINE: No increase in hunger, thirst or urination; admits compliance to medical management plan Feet: numbness tingling , ulcers or skin break Lab Results Component Value Date HGBA1C 7.2 02/16/2025 HGBA1C 6.8 (H) 12/11/2024 HGBA1C 7.3 (H) 09/04/2024 Lab Results Component Value Date GLU 251 03/02/2025 GLU 219 (A) 02/16/2025 GLU 180 (H) 11/06/2023 01/22/2024 3:21 PM 03/06/2024 9:16 AM 06/08/2024 9:51 AM 07/10/2024 9:10 AM 09/14/2024 9:09 AM 02/16/2025 2:31 PM 03/02/2025 11:40 AM Vitals BMI 38.09 kg/m2 38.9 kg/m2 39.93 kg/m2 38.44 kg/m2 39.11 kg/m2 39.29 kg/m2 39.5 kg/m2 BSA (m2) 2.08 m2 2.1 m2 2.13 m2 2.09 m2 2.11 m2 2.12 m2 2.12 m2 Systolic 115 120 128 128 100 100 110 Diastolic 70 60 72 84 56 68 72 Heart Rate 84 71 70 76 76 73 74 SpO2 95 % 95 % 93 % 92 % 94 % 94 % 94 % Temp 98.4 F 98 F 98.2 F 95.2 F 98.3 F 99.1 F Resp 18 18 18 18 18 16 Height (in) 5' 3 5' 3 5' 3 5' 3 5' 3 5' 3 5' 3 Weight (lb) 215 219.6 225.4 217 220.8 221.8 223 Visit Report Report Report Report Report Report Report Report ASSESSMENT AND PLAN: Assessment/Plan Diagnoses and all orders for this visit: Type 2 diabetes mellitus with hyperglycemia, without long-term current use of insulin ([facility]) - POCT glucose manually resulted - Ambulatory referral to Endocrinology - pioglitazone (Actos) 15 MG tablet; Take 1 tablet (15 mg) by mouth Daily Primary hypertension Vitamin D deficiency Acquired hypothyroidism Encounter for dietary consultation Class 2 severe obesity due to excess calories with serious comorbidity and body mass index (BMI) of39.0 to 39.9 in adult ([facility]) Diet and exercise reviewed with the patient Assessment & Plan 1. Uncontrolled diabetes. - A1c is 7.2, but CGM readings show higher values with an average of 215. - Currently on Ozempic 2 mg once weekly, metformin 502 tablet twice a day extended release, and Jardiance 25 mg once a day. Actos 15 mg will be added once a day to her regimen. Follow-up: Follow up in 3 months with new lab work. Follow up in about 3 months (around 06/01/2025). documented in this encounterWright Memorial [id number] Telephone encounter Note* Telephone Encounter - Jeanine Whitlock NP - 02/19/2025 1:50 PM EDT Phone discussion with pt. Derrick sx are mild, improving. Aware aic 7.2% and that we are ok with that. The EKG from jan sinus gretel, EKG sept ? Inf infarct She will try calling on Saturday to [facility] scheduling let us know if timing is far out, we will trial [facility]. [facility] [id number] Miscellaneous Notes* Telephone Encounter - Jeanine Whitlock NP - 02/19/2025 1:50 PM EDT Phone discussion with pt. Covclari sx are mild, improving. Aware aic 7.2% and that we are ok with that. The EKG from jan sinus gretel, EKG sept ? Inf infarct She will try calling on Saturday to [facility] scheduling let us know if timing is far out, we will trial [facility]. documented in this encounterWright Memorial [id number] Telephone encounter Note* Telephone Encounter - Jeanine Whitlock NP - 02/19/2025 1:09 PM EDT Aic is 7.2% potassium is low on preops. There is also + covid screen. Discussed per emessage [facility] [id number] Miscellaneous Notes* Telephone Encounter - Jeanine Whitlock NP - 02/19/2025 1:09 PM EDT Aic is 7.2% potassium is low on preops. There is also + covid screen. Discussed per emessage documented in this encounterWright Memorial [id number] Telephone encounter Note* Telephone Encounter - Jeanine Whitlock NP - 02/17/2025 11:01 AM EDT I sent rodolfopack to [facility] emssage to pt [facility] [id number] Miscellaneous Notes* Telephone Encounter - Jeanine Whitlock NP - 02/17/2025 11:01 AM EDT I sent kevin to [facility] emssage to pt * Telephone Encounter - Evelyne Valentin MA - 02/17/2025 10:50 AM EDT Patient called back she just got a call from [facility] and they told her she has a + covid * Telephone Encounter - Evelyne Valentin MA - 02/17/2025 10:45 AM EDT Yesterday her Azithromycin was sent to the wrong pharmacy. It went to her mail away pharmacy. She would like it sent to [facility] documented in this encounterWright Memorial [id number] Telephone encounter Note* Telephone Encounter - Evelyne Valentin MA - 02/17/2025 10:50 AM EDT Patient called back she just got a call from [facility] and they told her she has a + covid [facility] [id number] Telephone encounter Note* Telephone Encounter - Evelyne Valentin MA - 02/17/2025 10:45 AM EDT Yesterday her Azithromycin was sent to the wrong pharmacy. It went to her mail away pharmacy. She would like it sent to [facility] [id number] History of Present illness Narrative* Jeanine Louie Chinyere, QUEBRACHO TANNER - 02/16/2025 2:30 PM EDT Aishwarya Aguila is a 59 y.o. female presents with chief complaint of Diabetic follow up HPI: HPI ..The patient was advised that Artificial Intelligence will be utilized during this visit to record, process the conversation to generate a clinical note,. The patient consented to the use of AI, including the recording. . History of Present Illness The patient presents for evaluation of diabetes, foot fracture, and cough. Diabetes She is frustrated with her blood sugar levels, which are not improving despite using a CGM for 2 weeks. Her A1c is increasing, though still low. She reports fluctuations in blood sugar, especially postprandial. Diet: eggs, toast or bagel with peanut butter, vegetables for breakfast; leftovers for lunch; occasional fast food. She eats dinner late and plans to change this habit. She had an A1c testand other preoperative labs today but is unsure of the results. No urine sample provided. Foot Fracture She has a foot fracture, prescribed medication for bone regrowth, and will be non-weightbearing for2-3 weeks with a surgical boot. She uses a scooter for mobility and plans to return to swimming soon. Reports good sleep quality. Cough Over the weekend, she had a low-grade fever and cough, but no cough since arriving at the clinic. Concerned about upcoming surgery on 03/02/2025. Cannot take steroids due to surgery proximity. Unsureif symptoms are allergy-related. Reports ear popping, mild nasal discharge, no runny nose. Using Vicks and previously took Mucinex. No congestion or wheezing. Has taken Zithromax in the past without issues. During her first surgery, her blood pressure dropped significantly.no other issues with surgeries Hobbies: Scrapbooking Diet: Eggs, toast or bagel with peanut butter, vegetables for breakfast; leftovers for lunch; occasional fast food Sleep: Reports good sleep quality SUBJECTIVE: MEDICATIONS: Current Outpatient Medications Medication Instructions alendronate (FOSAMAX) 70 mg, Every 7 days ALPRAZolam (XANAX) 0.25 mg, Nightly PRN amLODIPine (NORVASC) 5 mg, Oral, Every morning ARIPiprazole (ABILIFY) 5 mg, Daily Ascorbic Acid (Vitamin C) 500 MG capsule Every 24 hours aspirin 81 mg, Daily atorvastatin (LIPITOR) 10 mg, Oral, Every morning azithromycin (Zithromax) 250 MG tablet Take 2 tablets (500 mg) by mouth Daily for 1 day, THEN 1 tablet (250 mg) Daily for 4 days. B Complex Vitamins (B COMPLEX 1 PO) bisoprolol (ZEBETA) 10 mg, Oral, Every morning chlorthalidone (Hygroton) 50 MG tablet TAKE 1 TABLET EVERY MORNINGWITH FOOD Continuous Glucose Sensor (Bioapter G7 Sensor) misc USE DIRECTED AND CHANGE EVERY 14 DAYS DULoxetine (CYMBALTA) 60 mg, Daily empagliflozin (JARDIANCE) 25 mg, Oral, Daily escitalopram (LEXAPRO) 10 mg, Daily estradiol (Estrace) 0.1 MG/GM vaginal cream PLACE 1 GRAM VAGINALLY DAILY FOR 14 DAYS THEN TWICE WEEKLY FreeStyle lancets glucose blood test strip Daily testing Lancet Devices (Autolet) lancing device Daily testing losartan (COZAAR) 50 mg, Oral, Daily meloxicam (MOBIC) 15 mg, Oral, Every morning metFORMIN XR (Glucophage-XR) 500 MG 24 hr tablet TAKE 2 TABLETS EVERY MORNING AND 2 TABLETS BEFORE BEDTIME montelukast (SINGULAIR) 10 mg, Oral, Every morning Ozempic (2 MG/DOSE) 2 mg, Subcutaneous, Weekly Synthroid 100 MCG tablet TAKE 1 TABLET IN THE MORNING BEFORE A MEAL therapeutic multivitamin-minerals (Theragran-M) tablet 1 tablet, Daily traZODone (Desyrel) 150 MG tablet TAKE 1/2 TABLET BY MOUTH ONCE A DAY AT BEDTIME zinc gluconate 50 mg, Daily ALLERGIES: Allergies [...] Never Depression: At risk (06/19/2024) Received from [facility] PHQ-2 PHQ-9 Total Score: 16 REVIEW [...] for environmental allergies. OBJECTIVE: Visit Vitals BP 100/68 (BP Location: Left arm, Patient Position: Sitting, BP Cuff Size: Adult) Pulse 73 Temp 99.1 F (Tympanic) Resp 18 Ht 5' 3 Wt 221 lb 12.8 oz SpO2 94% BMI 39.29 kg/m OB Status Hysterectomy Smoking Status Never BSA 2.12 m Physical Exam Constitutional: Appearance: Normal appearance. [...] Affect: Mood normal. Comments: Alert and interactive Time in range 36% , 18% Wt up 1 pound ASSESSMENT AND PLAN: Assessment/Plan Diagnoses and all orders for this visit: Type 2 diabetes mellitus with hyperglycemia, with long-term current use of insulin (HCC) Comments: aic drawn at [facility] today BMI 39.0-39.9,adult Comments: we discussed Mild intermittent asthma without complication (HCC) Comments: has asome acute sx of cough, not feeling great, worried a her surgery in 2 weeks, will trial antibiotic Acute upper respiratory infection Comments: zpack with food until gown, take allergy meds, call if no better Orders: - azithromycin (Zithromax) 250 MG tablet; Take 2 tablets (500 mg) by mouth Daily for 1 day, THEN 1 tablet (250 mg) Daily for 4 days. Type 2 diabetes mellitus without complication, without long-term current use of insulin ([facility]) - Ambulatory referral to Diabetic Education; Future ..I have reviewed and reconciled the history, allergies, family history, social history, and the medication list with the patient today. Follow up for 3 mo recheck. documented in this [facility]09-16-2025 Instructions* Patient Instructions* Jeanine Whitlock NP - 02/16/2025 2:30 PM EDT Keep using cgm Take the zpack with food until gone Ok to move follow up to early may documented in this [facility]08-22-2025 Telephone encounter Note* Telephone Encounter - Jeanine Whitlock NP - 01/22/2025 6:58 AM EDT Increased the ozempic dose back to 2mg, unsure how this was incorrectly sent as 1 mg. [facility] [id number] Miscellaneous Notes* Telephone Encounter - Jeanine Whitlock NP - 01/22/2025 6:58 AM EDT Increased the ozempic dose back to 2mg, unsure how this was incorrectly sent as 1 mg. documented in this [facility]08-01-2025 Telephone encounter Note* Telephone Encounter - Jeanine Whitlock NP - 01/01/2025 2:12 PM EDT Sent as requested to [facility]. [facility] [id number] Miscellaneous Notes* Telephone Encounter - Jeanine Whitlock NP - 01/01/2025 2:12 PM EDT Sent as requested to [facility]. * Telephone Encounter - Charlotte Caruso LPN - 12/31/2024 2:26 PM EDT Pt called and reports that monjaro was not covered by insurance. Needs refill of ozempic. Due for next injection saturday/saturday [facility]. [facility] 03/2025 documented in this encounterWright Memorial [id number] Telephone encounter Note* Telephone Encounter - Charlotte Caruso LPN - 12/31/2024 2:26 PM EDT Pt called and reports that monjaro was not covered by insurance. Needs refill of ozempic. Due for next injection saturday/saturday [facility]. [facility] 03/2025 [facility] [id number] Telephone encounter Note* Telephone Encounter - Jeanine Whitlock NP - 12/14/2024 6:08 AM EDT Mounjaro requested by pt. Ozempic not assisting with wt loss. Rx created and sent .aic 6.8% on jardiance, glucophage, ozempic. [facility] [id number] Miscellaneous Notes* Telephone Encounter - Jeanine Whitlock NP - 12/14/2024 6:08 AM EDT Kristy requested by pt. Albaro not assisting with wt loss. Rx created and sent .aic 6.8% on jardiance, glucophage, ozempic. documented in this [facility]06-17-2025 Telephone encounter Note* Telephone Encounter - Jeanine Whitlock NP - 11/17/2024 12:48 PM EDT Resent this again to [facility] [place]. [facility] [id number] Miscellaneous Notes* Telephone Encounter - Jeanine Whitlock NP - 11/17/2024 12:48 PM EDT Resent this again to [facility] [place]. * Telephone Encounter - Jeanine Whitlock NP - 11/13/2024 2:41 PM EDT Sent as requested * Telephone Encounter - Evelyne Valentin MA - 11/13/2024 10:02 AM EDT She is asking for us to send [facility] a Rx for a continuous glucose monitor. Her insurance will not pay for it, but she would like to see how much it will cost her. If it isn't to much she is just going to pay sánchez for it. documented in this [facility]06-13-2025 Telephone encounter Note* Telephone Encounter - Jeanine Whitlock NP - 11/13/2024 2:41 PM EDT Sent as requested [facility] [id number] Telephone encounter Note* Telephone Encounter - Evelyne Valentin MA - 11/13/2024 10:02 AM EDT She is asking for us to send [facility] a Rx for a continuous glucose monitor. Her insurance will not pay for it, but she would like to see how much it will cost her. If it isn't to much she is just going to pay sánchez for it. [facility] [id number] History of Present illness Narrative* Jeanine Whitlock NP - 09/14/2024 9:00 AM EDT Images from the original note were not included. Aishwarya Aguila is a 59 y.o. female presents with chief complaint of Diabetes Follow up HPI: HPI History of Present Illness The patient presents for a follow-up visit. She has been under the care of Dr. Tran for several years, during which time she underwent a uterine lining biopsy. The results were positive, prompting her to consult with Dr. Figueredo. Initially, itwaroxann decided to monitor the condition for another year, but due to her anxiety, a decision was made to proceed with cryotherapy on her cervix. This procedure is scheduled for the end of the month. Juaquin had a Pap smear conducted by Dr. [...] Never Depression: At risk (06/19/2024) Received from [facility] PHQ-2 PHQ-9 Total Score: 16 REVIEW [...] in mar, labs prior. documented in this [facility]04-14-2025 Instructions* Patient Instructions* Jeanine Whitlock NP - 09/14/2024 9:00 AM EDT Consider more resistance training 8 oz of water after each meal and stay on feet for about 30 min after each meal Consider 10 hour eat and 14 hour fasting Average blood sugar on or after December 04 and full well lab prior to mar well visit documented in this [facility]03-26-2025 Telephone encounter Note* Telephone Encounter - Charlotte Caruso LPN - 08/26/2024 2:15 PM EDT Pt called rx refill ine and requested losartan. Typically is sent to mail away but is completely out. Please sent to [facility] 09/2024 [facility] [id number] Miscellaneous Notes* Telephone Encounter - Charlotte Caruso LPN - 08/26/2024 2:15 PM EDT Pt called rx refill ine and requested losartan. Typically is sent to mail away but is completely out. Please sent to [facility] 09/2024 documented in this encounterWright Memorial [id number] History of Present illness Narrative* Osman Gilmore QUEBRACHO TANNER - 07/10/2024 9:00 AM EST Images from the original note were not [...] but its not going away) HPI: HPI QUEBRACHO TANNER; two weeks of sinus pressure drainage cough [...] Never Depression: At risk (06/19/2024) Received from [facility]. PHQ-2 PHQ-9 Total Score: 16 REVIEW [...] possible. This may cause irritability or agitation. Itmay increase hunger and blood sugar so watch sugars in diet carefully while taking this. Call if any stomach upset or intolerance. Take exactly as directed. Follow up september and as needed.. documented in this encounterWright Memorial [id number] NoteChief Complaint Hx NEELIMA, consultation History of Present [...] home sleep apnea test, 06/12/2024, performed by [facility], showed a significant degree of sleep apnea [...] up sweating and with a dry mouth. Morningcephalgia is not an issue. Her legs are not restless and do not affect her ability to initiate or maintain sleep. She dreams and states her dreams can be vivid. She has not been known to act out her dreams. There are no other REM or non-REM parasomnias noted. She is sleepy and fatigued throughout the day. [place] Sleepiness Scale score: 21. She is sleepy [...] of sleep apnea, her NEELIMA should be treated.Her best treatment option is CPAP therapy. Patient [...] [facility] [place] [address] Prescription: Positive Airway Pressure ? In Person Set-up Patient Name: (more content not included)...[facility] 06-16-2024 Telephone encounter Note* Telephone Encounter - Amy Ng LPN - 06/16/2024 9:04 AM EST Message left for Aishwarya regarding sleep study and referral being sent. Left open if she has any questions to please call. [facility] [id number] Miscellaneous Notes* Telephone Encounter - Amy Ng LPN - 06/16/2024 9:04 AM EST Message left for Aishwarya regarding sleep study and referral being sent. Left open if she has any questions to please call. * Telephone Encounter - Amy Ng LPN - 06/16/2024 6:25 AM EST Sent referral to [facility] with directions to forward to Dr. Plascencia office for obstructive severe sleep apnea. * Telephone Encounter - Jeanine Whitlock NP - 06/16/2024 6:14 AM EST She failed the [facility] sleep study, result was severe sleep apnea. Jeanine would suggest, given the severity, that we send her to see dr oliver for sleep medicine consult. We can see how long it would take to get appt. documented in this encounterWright Memorial [id number] Telephone encounter Note* Telephone Encounter - Amy Ng LPN - 06/16/2024 6:25 AM EST Sent referral to [facility] with directions to forward to Dr. Plascencia office for obstructive severe sleep apnea. [facility] [id number] Telephone encounter Note* Telephone Encounter - Jeanine Whitlock NP - 06/16/2024 6:14 AM EST She failed the [facility] sleep study, result was severe sleep apnea. Jeanine would suggest, given the severity, that we send her to see dr oliver for sleep medicine consult. We can see how long it would take to get appt. [facility] [id number] History of Present illness Narrative* Jeanine Whitlock NP - 06/08/2024 9:30 AM EST Aishwarya Aguila is a 58 y.o. 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 last aic 7.3 on 11-06-23 Visit for screening mammogram - Bilateral screening mammogram; Future Follow up in about 3 months (around 09/06/2024). documented in this [facility]01-06-2025 Instructions* Patient Instructions* Jeanine Whitlock NP - 06/08/2024 9:30 AM EST Somebody will call from [facility] requesting a sleep study that will be mailed to you Update aic prior to next appt in early September Schedule mammo documented in this [facility]01-05-2025 Telephone encounter Note* Telephone Encounter - Jeanine Whitlock NP - 06/07/2024 9:21 AM EST Clarified pharmacy for the ozempic 2 mg [facility] [id number] Miscellaneous Notes* Telephone Encounter - Jeanine Whitlock NP - 06/07/2024 9:21 AM EST Clarified pharmacy for the ozempic 2 mg documented in this [facility]12-03-2024 Telephone encounter Note* Telephone Encounter - Jeanine Whitlock NP - 05/05/2024 4:25 PM EST Resent correct rx [facility] [id number] Miscellaneous Notes* Telephone Encounter - Jeanine Whitlock NP - 05/05/2024 4:25 PM EST Resent correct rx documented in this [facility]12-02-2024 Telephone encounter Note* Telephone Encounter - Jeanine Whitlock NP - 05/04/2024 6:29 PM EST Increase to ozempic 1 mg dose per emessage request. [facility] [id number] Miscellaneous Notes* Telephone Encounter - Jeanine Whitlock NP - 05/04/2024 6:29 PM EST Increase to ozempic 1 mg dose per emessage request. documented in this [facility]11-01-2024 History of Present illness Narrative* NAHED Mcnally - 04/03/2024 11:30 AM EDT Skin Check Location: Patient requests a full [...] Left Posterior Mandible, Right Buccal Cheek, Right LowerLeg - Anterior, Right Parotid Area, Right Posterior [...] office if abnormal redness or tenderness develops atthe treatment site. Cryotherapy today, see procedure note. Diagnosis: Inflamed seborrheic keratosis Indication: Inflamed Consent: Verbal consent was obtained and risks were discussed, including, but not limited to risks of scarring, darker or candle wicker pigmentary changes, recurrence, incomplete removal and infection. [...] that removal is considered cosmetic and subject toa cosmetic fee. Patient verbalized understanding. Patient quoted [...] Next Visit: 1 year documented in this encounterWright Memorial [id number] Telephone encounter Note* Telephone Encounter - Elizabeth Richey MA - 03/27/2024 12:23 PM EDT Pharmacy requesting new RX for losartan for pt. [facility] [id number] Miscellaneous Notes* Telephone Encounter - Elizabeth Richey MA - 03/27/2024 12:23 PM EDT Pharmacy requesting new RX for losartan for pt. documented in this encounterWright Memorial [id number] Telephone encounter Note* Telephone Encounter - Jeanine Whitlock NP - 03/10/2024 12:19 PM EDT noted [facility] [id number] Miscellaneous Notes* Telephone Encounter - Jeanine Whitlock NP - 03/10/2024 12:19 PM EDT noted * Telephone Encounter - Amy Ng LPN - 03/10/2024 11:54 AM EDT Spoke with Maddie and notified her and she reports she has taken the Ozempic previously however after her sugars got better her insurance stopped paying for it. Answered the PA questions online and attached progress notes and A1C. * Telephone Encounter - Jeanine Whitlock NP - 03/10/2024 11:44 AM EDT Please let maddie know that jeanine sent ozempic once weekly to the local pharmacy for her. This triggered a PA so we will need to see what that looks like. Call if any issues swallowing or abd pain. Beware of constipation. Call if questions. Continue jardiance and metformin. * Telephone Encounter - Evelyne Valentin MA - 03/10/2024 9:09 AM EDT She has been wearing the dexcom and her average sugars are running 196. Patient states that she hasbeen eating better, but the alarm that her sugar is high will still go off. She is not sure what more she should do about this. documented in this encounterWright Memorial [id number] Telephone encounter Note* Telephone Encounter - Amy Ng LPN - 03/10/2024 11:54 AM EDT Spoke with Maddie and notified her and she reports she has taken the Ozempic previously however after her sugars got better her insurance stopped paying for it. Answered the PA questions online and attached progress notes and A1C. [facility] HospitalLbwyoljpaa74-88-1564 Telephone encounter Note* Telephone Encounter - Jeanine Whitlock NP - 03/10/2024 11:44 AM EDT Please let maddie know that jeanine sent ozempic once weekly to the local pharmacy for her. This triggered a PA so we will need to see what that looks like. Call if any issues swallowing or abd pain. Beware of constipation. Call if questions. Continue jardiance and metformin. [facility] [id number] Telephone encounter Note* Telephone Encounter - Evelyne Valentin MA - 03/10/2024 9:09 AM EDT She has been wearing the dexcom and her average sugars are running 196. Patient states that she hasbeen eating better, but the alarm that her sugar is high will still go off. She is not sure what more she should do about this. [facility] [id number] History of Present illness Narrative* Jeanine Whitlock NP - 03/06/2024 9:00 AM EDT Aishwarya Aguila is a 58 y.o. female [...] EVERY MORNING WITH FOOD Continuous Glucose Sensor (Bioapter G7 Sensor) misc 1 Units, Does not [...] 3.5 mo aic prior. documented in this [facility]10-04-2024 Instructions* Patient Instructions* Jeanine Whitlock NP - 03/06/2024 9:00 AM [...] and protein before carbs documented in this [facility]09-27-2024 Telephone encounter Note* Telephone Encounter - Jeanine Whitlock NP - 02/28/2024 12:38 PM EDT Daily fluconazole sent [facility] [id number] Miscellaneous Notes* Telephone Encounter - Jeanine Whitlock NP - 02/28/2024 12:38 PM EDT Daily fluconazole sent * Telephone Encounter - Elizabeth Richey MA - 02/28/2024 9:46 AM EDT PT called in stating she thinks she has a yeast infection. She mentioned she is having itching and when she is wiping she is getting a little blood just enough she knows she is raw down there, askingif we can call something in for her. PT uses [facility] pharmacy. documented in this encounterWright Memorial [id number] Telephone encounter Note* Telephone Encounter - Elizabeth Richey MA - 02/28/2024 9:46 AM EDT PT called in stating she thinks she has a yeast infection. She mentioned she is having itching and when she is wiping she is getting a little blood just enough she knows she is raw down there, askingif we can call something in for her. PT uses [facility] pharmacy. [facility] [id number] History of Present illness Narrative* Jeanine Whitlock, CURLY - 01/22/2024 3:00 PM EDT Aishwarya Aguila is a 58 y.o. female [...] and interactive Appears cheerful and animated [facility] discharge summary ASSESSMENT AND PLAN: Assessment/Plan Diagnoses and all orders for this visit: Other specified hypotension Comments: multifactorial, farxiga, wt loss, anesthesia, npo status prior to surgery. push fluids. restart losartan 25mg after done with pain meds for prophylaxis renal fx Type 2 diabetes mellitus without complication, without long-term current use of insulin ([facility]) Comments: aic is 7.3%, up from previous,. continue farxiga. push fluids, discussed how the sgtl2 works. recheck aic on after feb 05, order on deck Orders: - empagliflozin (Jardiance) 10 MG; Take 1 tablet (10 mg) by mouth Daily - losartan (Cozaar) 50 MG tablet; Take 0.5 tablets (25 mg) by mouth Daily Follow up for mar 06 wellvisit. documented in this encounterWright Memorial HospitalMcdncqsjyt65-18-0711 Instructions* Patient Instructions* Jeanine Whitlock NP - 01/22/2024 3:00 PM EDT Stay off of the amlodipine Stay off of the chlorthalidone Add back in losartan 25mg ( about 1/4 tab after you have weaned off the pain meds) Covid vaccine update, flu vaccine late March after feb 05 documented in this encounterWright Memorial HospitalEvaluation note* Diagnosis Mild intermittent asthma without complication Unspecified asthma documented in this encounter [facility] Phone: evaluation note* Diagnosis Age-related osteoporosis without current pathological fracture Senile osteoporosis documented [facility]* Diagnosis Type 2 diabetes mellitus without complication, without long-term current use of insulin ([facility])- Primary Wellness examination Type 2 diabetes mellitus with hyperglycemia, with long-term current use of insulin ([facility]) Acute post-traumatic stress disorder ([facility]/HCC) ENRIQUE (generalized anxiety disorder) ([facility]/HCC) Generalized anxiety disorder Severe single current episode of major depressive disorder, without psychotic features ([facility]) Acquired hypothyroidism ([facility]/HCC) Unspecified hypothyroidism Panic disorder with agoraphobia ([facility]CC) Agoraphobia with panic disorder Pure hypercholesterolemia (CMS/HCC) Pure hypercholesterolemia Primary hypertension (CMS/HCC) Unspecified essential hypertension Mild intermittent asthma without complication ([facility]) Immunization due Hallux valgus (acquired), left foot Degenerative cervical disc Primary insomnia Persistent disorder of initiating or maintaining sleep Vitamin D deficiency Hallux rigidus, left foot Environmental and seasonal allergies BMI 38.0-38.9,adult documented in this encounter [facility] HealthcareEvaluation note* Diagnosis Type 2 diabetes mellitus with hyperglycemia, with long-term current use of insulin ([facility]/HCC)- Primary documented in this encounter [facility] HealthcareEvaluation note* Diagnosis Environmental and seasonal allergies Pure hypercholesterolemia (CMS/HCC) Pure hypercholesterolemia documented in this encounter [facility] HealthcareEvaluation note* Diagnosis Type 2 diabetes mellitus without complication, without long-term current use of insulin ([facility]) documented in this encounter [facility] HealthcareEvaluation note* Diagnosis Seborrheic keratosis- Primary Melanocytic nevus of trunk Benign neoplasm of skin of trunk, except scrotum Inflamed seborrheic keratosis Surgery, elective Unspecified elective surgery for purposes other than remedying health states documented in this encounter [facility] HealthcareEvaluation note* Diagnosis Type 2 diabetes mellitus with hyperglycemia, with long-term current use of insulin ([facility]) documented in this encounter [facility] HealthcareEvaluation note* Diagnosis Type 2 diabetes mellitus without complication, without long-term current use of insulin ([facility])- Primary documented in this encounter [facility] HealthcareEvaluation note* Diagnosis Other specified hypotension- Primary Type 2 diabetes mellitus without complication, without long-term current use of insulin ([facility]) documented in this encounter [facility] HealthcareEvaluation note* Diagnosis Sandi vaginitis- Primary Candidiasis of vulva and vagina documented in this encounter [facility] HealthcareEvaluation note* Diagnosis Type 2 diabetes mellitus without complication, without long-term current use of insulin ([facility]/HCC)- Primary Type 2 diabetes mellitus without complication, without long-term current use of insulin ([facility])- Primary Visit for screening mammogram documented in this encounter [facility] HealthcareEvaluation note* Diagnosis Type 2 diabetes mellitus without complication, without long-term current use of insulin ([facility])- Primary Visit for screening mammogram Morbid (severe) obesity due to excess calories ([facility]) documented in this encounter [facility] HealthcareEvaluation note* Diagnosis Acquired hypothyroidism (CMS/[facility]) Unspecified hypothyroidism documented in this encounter [facility] HealthcareEvaluation note* Diagnosis Degenerative cervical disc Essential hypertension (CMS/[facility]) Unspecified essential hypertension Type 2 diabetes mellitus without complication, without long-term current use of insulin ([facility]) documented in this encounter [facility] HealthcareEvaluation note* Diagnosis Severe obstructive sleep apnea documented in this encounter [facility] HealthcareEvaluation note* Diagnosis STD exposure Women's annual routine gynecological examination documented in this encounter [facility]* Diagnosis Acute non-recurrent maxillary sinusitis- Primary documented in this encounter [facility] HealthcareEvaluation note* Diagnosis HGSIL on cytologic smear of cervix [facility]* Diagnosis Type 2 diabetes mellitus without complication, without long-term current use of insulin ([facility]) documented in this encounter [facility] HealthcareEvaluation note* Diagnosis Type 2 diabetes mellitus without complication, without long-term current use of insulin- Primary Primary hypertension ([facility]) Unspecified essential hypertension BMI 39.0-39.9,adult Dysuria Wellness examination Screening for deficiency anemia Screening for other and unspecified deficiency anemia Abnormal thyroid screen (blood) Nonspecific abnormal results of thyroid function study Screening, lipid Vitamin D deficiency documented in this encounter [facility]Evaluation note* Diagnosis Type 2 diabetes mellitus without complication, without long-term current use of insulin documented in this encounter [facility]* Diagnosis Type 2 diabetes mellitus with hyperglycemia, with long-term current use of insulin (HCC)- Primary documented in this encounter [facility]Evaluation note* Diagnosis Type 2 diabetes mellitus with hyperglycemia, with long-term current use of insulin ([facility]) documented in this encounter [facility]Evaluation note* Diagnosis Type 2 diabetes mellitus without complication, without long-term current use of insulin ([facility]) documented in this encounter [facility]Evaluation note* Diagnosis Acquired hypothyroidism Unspecified hypothyroidism documented in this encounter [facility]Evaluation note* Diagnosis Type 2 diabetes mellitus with hyperglycemia, with long-term current use of insulin (HCC)- Primary documented in this encounter [facility]Evaluation note* Diagnosis Type 2 diabetes mellitus with hyperglycemia, with long-term current use of insulin (HCC)- Primary documented in this encounter [facility]Evaluation note* Diagnosis Type 2 diabetes mellitus with hyperglycemia, with long-term current use of insulin (HCC)- Primary documented in this encounter [facility] HealthcareEvaluation note* Diagnosis Type 2 diabetes mellitus with hyperglycemia, with long-term current use of insulin (HCC)- Primary BMI 39.0-39.9,adult Mild intermittent asthma without complication (HCC) Acute upper respiratory infection Acute upper respiratory infections of unspecified site Type 2 diabetes mellitus without complication, without long-term current use of insulin (HCC) documented in this encounter [facility]Evaluation note* Diagnosis Acute upper respiratory infection Acute upper respiratory infections of unspecified site documented in this encounter [facility]Evaluation note* Diagnosis Abnormal stress test- Primary Other nonspecific abnormal cardiovascular system function study Abnormal EKG Nonspecific abnormal electrocardiogram (ECG) (EKG) documented in this encounter [facility]Evaluation note* Diagnosis Type 2 diabetes mellitus with hyperglycemia, without long-term current use of insulin (HCC)- Primary Primary hypertension Unspecified essential hypertension Vitamin D deficiency Acquired hypothyroidism Unspecified hypothyroidism Encounter for dietary consultation Class 2 severe obesity due to excess calories with serious comorbidity and body mass index (BMI) of39.0 to 39.9 in adult documented in this encounter [facility]Evaluation note* Diagnosis Type 2 diabetes mellitus without complication, without long-term current use of insulin ([facility]) documented in this encounter [facility]Evaluation note* Diagnosis Abnormal EKG Nonspecific abnormal electrocardiogram (ECG) (EKG) documented in this encounter [facility]* Diagnosis Type 2 diabetes mellitus with hyperglycemia, with long-term current use of insulin ([facility]) documented in this encounter [facility] HealthcareEvaluation note* Diagnosis Wellness examination- Primary Type 2 diabetes mellitus with hyperglycemia, without long-term current use of insulin ([facility]) Mild intermittent asthma without complication (HCC) ENRIQUE (generalized anxiety disorder) Generalized anxiety disorder Severe single current episode of major depressive disorder, without psychotic features ([facility]) Vitamin D deficiency Panic disorder with agoraphobia Agoraphobia with panic disorder Primary hypertension Unspecified essential hypertension Primary insomnia Persistent disorder of initiating or maintaining sleep Degenerative cervical disc Hallux rigidus, left foot Hallux valgus (acquired), left foot Acquired hypothyroidism Unspecified hypothyroidism Obesity due to excess calories with serious comorbidity, unspecified class Acute post-traumatic stress disorder Environmental and seasonal allergies Immunization due Abnormal swallowing documented in this encounter [facility] HealthcareEvaluation note* Diagnosis Preoperative cardiovascular examination- Primary Pre-operative cardiovascular examination Hypertension, unspecified type Type 2 diabetes mellitus without complication, without long-term current use of insulin (HCC) Mild intermittent asthma without complication Unspecified asthma Panic attack as reaction to stress Predominant disturbance of emotions Anxiety Anxiety state, unspecified Abnormal cardiovascular stress test- Primary Other nonspecific abnormal cardiovascular system function study Abnormal cardiovascular stress test Other nonspecific abnormal cardiovascular system function study documented in this encounter [facility] note* Diagnosis Seborrheic keratosis- Primary Melanocytic nevus of trunk Benign neoplasm of skin of trunk, except scrotum Londono angioma Inflamed seborrheic keratosis documented in this encounter [facility] HealthcareReason for visit Narrative* Other (Routine) - AuthorizedSpecialty Diagnoses / ProceduresReferred By ContactReferred To ContactCardiology Diagnoses Abnormal EKG Procedures Nuclear stress test with myocardial perfusion Jeanine Whitlock Liban, PLAST[employer] FABRICATOR AND ASSEMBLER - QUEBRACHO TANNER [address] [place] [address] Phone: tel: fax: Referral IDStatusReasonStart DateExpiration DateVisits RequestedVisits [id number]/1/202510/1/202633 [facility] for visit Narrative* Other (Routine) - Authorized SpecialtyDiagnoses / ProceduresReferred By ContactReferred To Contact Cardiology Diagnoses Abnormal EKG Procedures Nuclear stress test with myocardial perfusion Jeanine Whitlock Liban, PLASTICS FABRICATOR AND ASSEMBLER - [employer] TANNER [address] [place], [place] [id number] Phone: tel: fax: Referral IDStatusReasonStart DateExpiration DateVisits RequestedVisits [id number]/1/202510/1/202633 [facility] for visit Narrative* Other (Routine) - Closed SpecialtyDiagnoses / ProceduresReferred By ContactReferred To Contact Cardiology Diagnoses Abnormal EKG Procedures Nuclear stress test with myocardial perfusion Jeanine Whitlock, P[employer] F[employer]RICATOR AND ASSEMBLER - [employer] TANNER [address] [place] [address] Phone: tel: fax: Referral IDStatusReasonStart DateExpiration DateVisits RequestedVisits [id number]/1/202510/1/202633 [facility] for visit Narrative* Auth/CertSpecialtyDiagnoses / ProceduresReferred By ContactReferred To Contact Diagnoses Abnormal cardiovascular stress test Procedures CA CATH PLMT L HRT & ARTS W/NJX & ANGIO IMG S&I Left heart cath / coronary angiography Jackson Wiggins MD [address] [place] [address] Phone: tel: fax: [facility] [address] [place] [address] Referral IDStatusReasonStart DateExpiration DateVisits RequestedVisits [id number] [facility] Summary Purpose Family History No Family History Records FoundNo Family History Records FoundNo Family History Records FoundNo Family History Records FoundNo Family History Records Found Advance Directives TypeDate RecordedPatient RepresentativeExplanationACP-Advance DirectiveACP-Power of AttorneyCode StatusDate ActivatedDate InactivatedCommentsFull Code07/22/2017 1:14 PM2 9:48 PMFull Code07/20/2017 6:15 AM07/22/2017 1:14 PMCode Status Date ActivatedDate InactivatedCommentsFull Code07/22/2017 1:14 PM2 9:48 PMCode StatusDate ActivatedDate InactivatedCommentsFull Code07/20/2017 6:15 AM 07/22/2017 1:14 PMCode StatusDate ActivatedDate InactivatedCommentsFull Code 07/22/2017 1:14 PM2 9:48 PMCode StatusDate ActivatedDate Inactivated CommentsFull Code07/20/2017 6:15 AM07/22/2017 1:14 PMDate ActivatedDate InactivatedComments07/22/2017 1:14 PM2 9:48 PMDate ActivatedDate InactivatedComments07/20/2017 6:15 AM07/22/2017 1:14 PMDate ActivatedDate InactivatedComments07/22/2017 1:14 07/22/2017 9:48 PMDate ActivatedDate InactivatedComments07/20/2017 6:15 AM07/22/2017 1:14 PMDate ActivatedDate NlsxjhegzzqHkddoeya65/6/2025 1:56 PMDate ActivatedDate InactivatedComments 04/08/2025 12:43 PM04/08/2025 1:56 PMDate ActivatedDate InactivatedComments 07/22/2017 1:14 PM2 9:48 PMDate ActivatedDate InactivatedComments 07/20/2017 6:15 AM07/22/2017 1:14 PM Reason for Referral SpecialtyDiagnoses / ProceduresReferred By ContactReferred To ContactRadiology Diagnoses Age-related osteoporosis without current pathological fracture Procedures DEXA BONE DENSITY 2 SITES DEXA BONE DENSITY AXIAL SKELETON Tyler Tran MD [address] [phone] Referral IDStatusReasonStart DateExpiration DateVisits RequestedVisits [id number] / ProceduresReferred By ContactReferred To Contact Diagnoses Type 2 diabetes mellitus without complication, without long-term current use of insulin ([facility]) Jeanine Whitlock NP [address] [phone] Referral IDStatusReasonStart DateExpiration DateVisits RequestedVisits [id number] / ProceduresReferred By Contact Referred To Contact Diagnoses Type 2 diabetes mellitus with hyperglycemia, with long-term current use of insulin ([facility]) Jeanine Whitlock NP [address] [place] [address] Referral IDStatusReasonStart DateExpiration DateVisits RequestedVisits [id number]/8/202410/8/202711 Additional Source Comments INFORMATION SOURCE (unrecogn ized section and content) DATE CREATED AUTHOR 11/22/2017 [facility] DATE CREATED AUTHOR AUTHOR'S ORGANIZ ATION 07/18/2023 [facility] DATE CREATED AUTHOR AUTHOR'S ORGANIZ ATION 03/20/2025 [facility] DATE CREATED AUTHOR AUTHOR'S ORGANIZ ATION 04/09/2025 [facility] DATE CREATED AUTHOR AUTHOR'S ORGANIZ ATION 04/14/2025 [facility] Care Teams (unrecognized sec tion and content) Team MemberRelationshipSpecialtyStart DateEnd Date Jeanine Whitlock [facility] [place] [address] PCP - Llvqcme98/14/16Team MemberRelationshipSpecialtyStart DateEnd Date Jeanine Whitlock [address] [place] [address] PCP - Kynmpmi33/14/16Team MemberRelationshipSpecialtyStart End Jose Putnam, [address] [place] [address] PCP - GeneralFamily Medicine11/09/22 Jeanine Whitlock, QUEBRACHO TANNER [address] [place] [address] Nurse PractitionerFamily Medicine11/09/22Team MemberRelationshipSpecialtyStart End Jose Putnam, [address] [place] [address] PCP - GeneralFamily Medicine11/09/22 Jeanine Whitlock, QUEBRACHO TANNER [address] [place] [address] Nurse PractitionerFamily Medicine11/09/22Team MemberRelationshipSpecialtyStart End Jose Putnam, [address] [place] [address] PCP - GeneralFamily Medicine11/09/22 Jeanine Whitlock, QUEBRACHO TANNER [address] [place] [address] Nurse PractitionerFamily Medicine11/09/22Team MemberRelationshipSpecialtyStart End Jose Putnam, [address] [place] [address] PCP - GeneralFamily Medicine11/09/22 Jeanine Whitlock, QUEBRACHO TANNER [address] [place] [address] Nurse PractitionerFainly Medicine11/09/22Te MemberRelationshipSpecialtyStart End Jose Putnam, [address] [place] [address] PCP - GeneralFamily Medicine11/09/22 Jeanine Whitlock, QUEBRACHO TANNER [address] [place] [address] Nurse Pract[facility]erMary [facility] Medicine11/09/22Te MemberRelationshipSpecialtyStart End Jose Putnam, [address] [place] [address] PCP - GeneralFamily Medicine11/09/22 Jeanine Whitlock, QUEBRACHO TANNER [address] [place] [address] Nurse PractitionerMary [facility] Medicine11/09/22Te MemberRelationshipSpecialtyStart End Jose Putnam, DO [address] [place] [address] PCP - GeneralFamily Medicine11/09/22 Jeanine Whitlock, QUEBRACHO TANNER [address] [place] [address] Nurse PractitionerMary [facility] Medicine11/09/22Te MemberRelationshipSpecialtyStart End Jose Putnam, DO [address] [place] [address] PCP - GeneralFamily Medicine11/09/22 Jeanine Whitlock, QUEBRACHO TANNER [address] [place] [address] Nurse PractitionerMary [facility] Medicine11/09/22Team MemberRelationshipSpecialtyStart DateEnd Jose Putnam, DO [address] [place] [address] PCP - GeneralFamily Medicine11/09/22 Jeanine Whitlock, QUEBRACHO TANNER [address] [place] [address] Nurse Pract[facility]erAugust[facility]11/09/22Team MemberRelationshipSpecialtyStart DateEnd Date Jose Putnam, DO [address] [place] [address] PCP - Generalmily Medicine11/09/22 Jeanien Whitlock, QUEBRACHO TANNER [address] [place] [address] Nurse PractitionerAugust[facility]11/09/22Team MemberRelationshipSpecialtyStart DateEnd Date Jose Putnam, DO [address] [place] [address] PCP - GeneralFamily Medicine11/09/22 Jeanine Whitlock, QUEBRACHO TANNER [address] [place] [address] Nurse PractitionerAugust[facility]11/09/22Team MemberRelationshipSpecialtyStart DateEnd Jose Putnam, DO [address] [place] [address] PCP - GeneralFamily Medicine11/09/22 Jeanine Whitlock, QUEBRACHO TANNER [address] [place] [address] Nurse PractitionerFamily Medicine11/09/22Team MemberRelationshipSpecialtyStart DateEnd Jose Putnam, [address] [place] [address] PCP - GeneralFamily Medicine11/09/22 Jeanine Whitlock, QUEBRACHO TANNER [address] [place] [address] Nurse PractitionerFainly Medicine11/09/22Team MemberRelationshipSpecialtyStart DateEnd Jose Putnam, [address] [place] [address] PCP - GeneralFamily Medicine11/09/22 Jeanine Whitlock, QUEBRACHO TANNER [address] [place] [address] Nurse PractitionerFainly Medicine11/09/22Team MemberRelationshipSpecialtyStart End Jose Putnam, [address] [place] [address] PCP - GeneralFamily Medicine11/09/22 Jeanine Whitlock, QUEBRACHO TANNER [address] [place] [address] Nurse PractitionerFainly Medicine11/09/22Team MemberRelationshipSpecialtyStart End Jose Putnam, [address] [place] [address] PCP - GeneralFamily Medicine11/09/22 Jeanine Whitlock, QUEBRACHO TANNER [address] [place] [address] Nurse PractitionerFamily Medicine11/09/22Team MemberRelationshipSpecialtyStart DateEnd Date Jose Putnam, DO [address] [place] [address] PCP - GeneralFamily Medicine11/09/22 Jeanine Whitlock, QUEBRACHO TANNER [address] [place] [address] Nurse PractitionerFamily Medicine11/09/22Team MemberRelationshipSpecialtyStart DateEnd Date Jeanine Whitlock, PLASTICS FABRICATOR AND ASSEMBLER - [employer] TANNER [address] [place] [address] PCP - Qpktnqe34/14/16Team MemberRelationshipSpecialtyStart DateEnd Date Jose Putnam, DO [address] [place] [address] PCP - GeneralFamily Medicine11/09/22 Jeanine Whitlock, QUEBRACHO TANNER [address] [place] [address] Nurse PractitionerFamily Medicine11/09/22Team MemberRelationshipSpecialtyStart DateEnd Date Jeanine Whitlock, PLASTICS FABRICATOR AND ASSEMBLER - [employer] TANNER [address] [place] [address] PCP - Xpeczrv79/14/16Team MemberRelationshipSpecialtyStart DateEnd Date Jose Putnam, [address] [place] [address] PCP - GeneralFamily Medicine11/09/22 Jeanine Whitlock, QUEBRACHO TANNER [address] [place] [address] Nurse PractitionerMary [facility] Medicine11/09/22Te MemberRelationshipSpecialtyStart DateEnd Date Jose Putnam, [address] [place] [address] PCP - GeneralMary [facility]ley [facility] Medicine11/09/22 Jeanine Whitlock, QUEBRACHO TANNER [address] [place] [address] Nurse PractitionerMary [facility] Medicine11/09/22Te MemberRelationshipSpecialtyStart DateEnd Date Jose Putnam, [address] [place] [address] PCP - GeneralMary [facility]. [facility]ley [facility] Medicine11/09/22 Jeanine Whitlock, QUEBRACHO TANNER [address] [place] [address] Nurse PractitionerMary [facility] Medicine11/09/22Te MemberRelationshipSpecialtyStart DateEnd Date Jose Putnam, DO [address] [place] [address] PCP - GeneralMary [facility] Medicine11/09/22 Jeanine Whitlock, QUEBRACH[place] TANNER [address] [place] [address] Nurse PractitionerFamily Medicine11/09/22Team MemberRelationshipSpecialtyStart DateEnd Jose Putnam, [address] [place] [address] PCP - GeneralFamily Medicine11/09/22 Jeanine Whitlock, QUEBRACHO TANNER [address] [place] [address] Nurse PractitionerPella [facility] Centerly Medicine11/09/22Team MemberRelationshipSpecialtyStart DateEnd Date Jose Putnam, [address] [place] [address] PCP - GeneralFamily Medicine11/09/22 Jeanine Whitlock, QUEBRACHO TANNER [address] [place] [address] Nurse PractitionerPella [facility] Health Centerly Medicine11/09/22Team MemberRelationshipSpecialtyStart DateEnd Date Jose Putnam, [address] [place] [address] PCP - GeneralFamily Medicine11/09/22 Jeanine Whitlock, QUEBRACHO TANNER [address] [place] [address] Nurse PractitionerPella [facility] Centerly Medicine11/09/22Team MemberRelationshipSpecialtyStart DateEnd Date Jose Putnam, [address] [place] [address] PCP - GeneralFamily Medicine11/09/22 Jeanine Whitlock, QUEBRACHO TANNER [address] [place] [address] Nurse PractitionerFamily Medicine11/09/22Team MemberRelationshipSpecialtyStart DateEnd Date Jose Putnam, [address] [place] [address] PCP - GeneralFamily Medicine11/09/22 Jeanine Whitlock, QUEBRACHO TANNER [address] [place] [address] Nurse PractitionerPella [facility] Centerly Medicine11/09/22Team MemberRelationshipSpecialtyStart DateEnd Date Jose Putnam, [address] [place] [address] PCP - Generalmily Medicine11/09/22 Jeanine Whitlock, QUEBRACHO TANNER [address] [place] [address] Nurse PractitionerFainly Medicine11/09/22Team MemberRelationshipSpecialtyStart DateEnd Date Jeanine Whitlock, PLASTICS FABRICATOR AND ASSEMBLER - [employer] TANNER [address] [place] [address] PCP - Pzgmdmz08/14/16Team MemberRelationshipSpecialtyStart DateEnd Date Jeanine Whitlock, PLASTICS FABRICATOR AND ASSEMBLER - [employer] TANNER [address] [place] [address] PCP - Cayqgyq04/14/16Team MemberRelationshipSpecialtyStart DateEnd Date Jeanine Whitlock, PLASTICS FABRICATOR AND ASSEMBLER - [employer] TANNER [address] [place] [address] PCP - Ushnyzj77/14/16Team MemberRelationshipSpecialtyStart DateEnd Date Jose Putnam, [address] [place] [address] PCP - [facility]Mary [facility] Medicine11/09/22 Jeanine Whitlock, QUEBRACHO TANNER [address] [place] [address] Nurse PractitionerAugust[facility]11/09/22Te MemberRelationshipSpecialtyStart DateEnd Date Jose Putnam, DO [address] [place] [address] PCP - [facility]11/09/22 Jeanine Whitlock, QUEBRACHO TANNER [address] [place] [address] PCP - [facility] [employer] Jeanine Whitlock, QUEBRACHO TANNER [address] [place] [address] Nurse PractitionerAugust[facility]11/09/22Te MemberRelationshipSpecialtyStart DateEnd Date Jeanine Whitlock, PLASTICS FABRICATOR AND ASSEMBLER - [employer] TANNER [address] [place] [address] PCP - Ezmdewt38/14/16Team MemberRelationshipSpecialtyStart DateEnd Date Jose Putnam, [address] [place] [address] PCP - [facility]11/09/22 Jeanine Whitlock, QUEBRACHO TANNER [address] [place] [address] Nurse PractitionerFamily Medicine11/09/22 Reason for Visit (unrecogniz ed section and content) SpecialtyDiagnoses / ProceduresReferred By ContactReferred To ContactRadiology Diagnoses Age-related osteoporosis without current pathological fracture Procedures DEXA BONE DENSITY 2 SITES DEXA BONE DENSITY AXIAL SKELETON Tyler Tran MD [address] [place] [address] Referral IDStatusReasonStart DateExpiration DateVisits RequestedVisits [id number] Exam ReasonOnset DateCommentsupdate on dexcom and blood uyfgew8403/10/2024New Medication xeaswsk59/08/2024ReasonCommentsMed RefillReasonOnset DateCommentsMed Dsnigj164ReasonCommentsSkin CheckReasonCommentsHospital Follow-upHad bunion surgery and they straightened her big toe and then while in surgery her blood pressure dropped and received fluids and the BP stabilized and then she didn't take all of her medication the next few days. Noticed red spot on right breast denies lump or painful or itchyReasonOnset DateComments Vaginitis/Bacterial Lmqoamohc05/27/2024ReasonCommentsSleeping ProblemReasonOnset QdqaYjryycwyElxlakfa73/14/2025[place] Joqgmai0206/16/2024ReasonCommentsCough Started almost 2 weeks ago, pt states its so bad its hurting my ribs and making me pee Also has a lot of mucous, had fevers the first week, but has resolved, slight nausea this morningHas tried OTC meds but its not going awayReasonOnset DateCommentsMed Jmuucr2108/26/2024ReasonCommentsDiabetes Follow upReasonOnset Date CommentsMed Jnmlso2410/14/2024ReasonOnset DateCommentscontinuous glucose monitor 11/13/2024ReasonCommentsMed Change RequestReasonOnset DateCommentsMed Refill 12/31/2024ReasonCommentsDiabetic follow upReasonOnset DateCommentswrong pharmacy 02/17/2025ReasonCommentsDiabetes MellitusNEW REF LAB 02/19/25 A1C 7.2%Specialty Diagnoses / ProceduresReferred By ContactReferred To ContactEndocrinology Diagnoses Type 2 diabetes mellitus with hyperglycemia, with long-term current use of insulin (HCC) Procedures CA OFFICE/OUTPATIENT NEW HIGH MDM 60 MINUTES Jeanine Whitlock NP [address] [place] [address] Phone: tel: fax: Jamie Schwartz MD [address] [facility] [address] [place] [address] Phone: tel: fax: Referral IDStatusReasonStart DateExpiration DateVisits RequestedVisits [id number] Specialty Services Required /[id number] DateCommentsMed Ngcobu2903/16/2025ReasonComments Annual Exam Scheduled Active and Recently Administ ered Medications (unrecognized section and content) Medication Order//11/2024 diphenhydrAMINE (BENADRYL) capsule 50 mg 50 mg, Oral, ONCE, 1 dose, On Melany 04/08/25 at 1300, One hour prior to procedure if allergic to dye.,Pre-Procedure(Cath) * 1306 (Not Given - Provider: Huma Lewis RN - Reason: Other - Comment: given iv) diphenhydrAMINE (BENADRYL) injection 50 mg (COMPLETED) 50 mg, IntraVENous, ONCE, 1 dose, On Melany 04/08/25 at 1315, IV Push at rate not to exceed 25 mg/min.,Pre-Procedure(Cath) * 1304 (Given - Provider: Huma Lewis RN) famotidine (PEPCID) 20 MG/2ML 20 mg in sodium chloride (PF) 0.9 % 10 mL injection (COMPLETED) 20 mg, IntraVENous, ONCE, On Melany 04/08/25 at 1315, For 1 dose, IV push over 2 minutes. Dilute with 10 mL NS., Pre-Procedure(Cath) * 1301 (Given - Provider: Huma Lewis, DOMINICK) methylPREDNISolone sodium succ (SOLU-MEDROL) 125 mg in sterile water 2 mL injection (COMPLETED) 125 mg, IntraVENous, ONCE, On Melany 04/08/25 at 1315, For 1 dose, Reconstitute 125 mg vial with 2 mL diluent., Pre-Procedure(Cath) * 1308 (Given - Provider: Huma Lewis RN) sodium chloride flush 0.9 % injection 5-40 mL 5-40 mL, IntraVENous, EVERY 12 HOURS SCHEDULED (2 times per day), First dose on Melany 04/08/25 at 2100, Until Discontinued, For Line Patency: Peripheral IV = 5 mL; Midline or Central Line = 10 mL/lumen.If following IV push medication, administer flush at same rate as the IV push. Flush volume is determined by type of infusion therapy being given. For non-viscous solutions use: Peripheral IV = 5 mL Midline or Central Line = 10 mL/lumen For viscous solutions (i.e. blood components, parenteral nutrition, contrast media, or after obtaining blood sample) use: Peripheral IV = 10 mL Midline or CentralLine = 20 mL/lumen, Pre-Procedure(Cath) * 2100 (Due) sodium chloride flush 0.9 % injection 5-40 mL 5-40 mL, IntraVENous, EVERY 12 HOURS SCHEDULED (2 times per day), First dose on Melany 04/08/25 at 2100, Until Discontinued, For Line Patency: Peripheral IV = 5 mL; Midline or Central Line = 10 mL/lumen.If following IV push medication, administer flush at same rate as the IV push. Flush volume is determined by type of infusion therapy being given. For non-viscous solutions use: Peripheral IV = 5 mL Midline or Central Line = 10 mL/lumen For viscous solutions (i.e. blood components, parenteral nutrition, contrast media, or after obtaining blood sample) use: Peripheral IV = 10 mL Midline or CentralLine = 20 mL/lumen, Recovery(Cath) * 2100 (Due) Medication Order 0.9 % sodium chloride infusion IntraVENous, at 50 mL/hr, CONTINUOUS, Starting on Melany 04/08/25 at 1415, -Rate of IV fluid administration during recovery will be based on the patient's LVEDP obtained during the procedure using the following formula: 1. LVEDP <13 = 5cc/kg/hr 2. LVEDP 13-18 = 3cc/kg/hr 3. LVEDP >18 = 1.5cc/kg/hr If no LVEDP obtained, ask health/safety job titles for fluid rate and volume to be given in recovery. -Fluids will be infused over a minimum of 2 hours. Rate shall not exceed 500 cc/hr. Ask health/safety job titles for fluid volume total to be infused. -If GFR is less than 30, fluids will be infused over a minimum of 3hours. -In case of reduced EF, CHF, etc., consult health/safety job titles for rate and volume to be administered., Recovery(Cath) * 1400 (Rate/Dose Change - Provider: Huma Lewis RN) Medication Order/11/2024 0.9 % sodium chloride infusion IntraVENous, at 5-250 mL/hr, PRN, if patient receiving piggyback infusions and maintenance fluids are not ordered OR KVO fluids to protect IV site / prevent frequent line interruptions/ long duration, Starting on Melany 04/08/25 at 1243, For piggyback infusion, administer at same rate as piggyback for a total of 25 mL. Enter 25 mL into dose field and piggyback rate into rate field of order. If piggyback is infusing at a rate less than 100 mL/hr, enter 25 mL into dose field and 100 mL/hr into rate field of order. For KVO fluids, enter rate of 20 mL/hr or less into rate field of order., Pre-Procedure(Cath) acetaminophen (TYLENOL) tablet 650 mg 650 mg, Oral, EVERY 4 HOURS PRN, Starting on Melany 04/08/25 at 1356, Until Discontinued, Pain Mild (1-3) OR per patient request for pain score (4-10), Fever, Fever >100.5 F (38 C), Maximum dose of acetaminophen is 4000 mg from all sources in 24 hours., Recovery(Cath) heparin (porcine) injection (CANCELED) PRN, Starting on Melany 04/08/25 at 1341, Until Melany 04/08/25 at 1353, Intra-procedure(Cath) * 1341 (Given - Provider: Alyssa Hoff, DOMINICK) iopamidol (ISOVUE-370) 76 % injection (CANCELED) PRN, Starting on Melany 04/08/25 at 1347, Until Melany 04/08/25 at 1353, Intra-procedure(Cath) * 1347 (Given - Provider: Alyssa Hoff RN) lidocaine 1 % injection (CANCELED) PRN, Starting on Melany 04/08/25 at 1322, Until Melany 04/08/25 at 1353, Intra-procedure(Cath) * 1322 (Given - Provider: Jackson Wiggins MD) nitroGLYCERIN (NITROSTAT) SL tablet 0.4 mg 0.4 mg, SubLINGual, EVERY 5 MIN PRN, 3 doses, Starting on Melany 04/08/25 at 1243, Until Discontinued, Chest pain, Place 1 tablet under tongue upon chest pain, wait 5 minutes and may repeat up to 3 dosesin 15 minutes. Do not crush or break., Pre-Procedure(Cath) nitroGLYCERIN injection (CANCELED) PRN, Starting on Melany 04/08/25 at 1323, Until Melany 04/08/25 at 1353, Intra-procedure(Cath) * 1323 (Given - Provider: Jackson Wiggins MD) sodium chloride 0.9 % bolus (COMPLETED) Administer over 121 Minutes, CONTINUOUS PRN, Starting on Melany 04/08/25 at 1342, Intra-procedure(Cath) * 1342 (New Bag - Provider: Alyssa Hoff RN) sodium chloride flush 0.9 % injection 5-40 mL 5-40 mL, IntraVENous, PRN, Starting on Melany 04/08/25 at 1243, Until Discontinued, Line Care, After every IV line use, For Line Patency: Peripheral IV = 5 mL; Midline or Central Line = 10 mL/lumen. If following IV push medication, administer flush at same rate as the IV push. Flush volume is determined by type of infusion therapy being given. For non-viscous solutions use: Peripheral IV = 5 mL Midline or Central Line = 10 mL/lumen For viscous solutions (i.e. blood components, parenteral nutrition,contrast media, or after obtaining blood sample) use: Peripheral IV = 10 mL Midline or Central Line= 20 mL/lumen, Pre-Procedure(Cath) sodium chloride flush 0.9 % injection 5-40 mL 5-40 mL, IntraVENous, PRN, Starting on Melany 04/08/25 at 1356, Until Discontinued, Line Care, After every IV line use, For Line Patency: Peripheral IV = 5 mL; Midline or Central Line = 10 mL/lumen. If following IV push medication, administer flush at same rate as the IV push. Flush volume is determined by type of infusion therapy being given. For non-viscous solutions use: Peripheral IV = 5 mL Midline or Central Line = 10 mL/lumen For viscous solutions (i.e. blood components, parenteral nutrition,contrast media, or after obtaining blood sample) use: Peripheral IV = 10 mL Midline or Central Line= 20 mL/lumen, Recovery(Cath) FOR RECORDS PERTAINING TO PATIENTS WHO ARE [...] BE BASED ON THE PRIMARY CLINICAL RECORDS. [employer] provides no warranty or guarantee of the accuracy or completeness of information in this document.
--- NOTE | 2025-04-23 14:01 | PM.PRESUREVA ---
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 The patient reports a history of right foot pain. She states she had right foot surgery in April 2024 and recently has been having swelling and pain at her incision site which is worse with certain activities. She denies any specific trauma or injury. She denies numbness, tingling, weakness, or any other complaints. The patient had a positive COVID test, abnormal EKG, and elevated A1c on February 16, 2025. Since that time she underwent a cardiac catheterization and has been cleared by cardiology. Review of Systems ROS Narrative REVIEW OF SYSTEMS: Negative except as stated in HPI, ten or more systems reviewed. Constitutional: No fever, chills, weakness ENT: No sore throat or epistaxis Cardiovascular: No edema, chest pain, palpitations, or activity intolerance Respiratory: No shortness of breath, cough, or wheezing Gastrointestinal: No abdominal pain, constipation, diarrhea, or vomiting Genitourinary: No dysuria or hematuria Neurological: No numbness, tingling, weakness, or headache Psychiatric: No mood changes PFSH PFS Medical History (Updated 02/16/25 @ 13:30 by Alicia Rico NP) Right foot pain ?M79.671 - Pain in right foot (ICD-10) Pseudarthrosis after fusion or arthrodesis ?M96.0 - Pseudarthrosis after fusion or arthrodesis (ICD-10) Nonunion of joint fusion NEELIMA on CPAP ?G47.33 - Obstructive sleep apnea (adult) (pediatric) (ICD-10) Toe deformity ?M20.60 - Acquired deformities of toe(s), unspecified, unspecified foot (ICD-10) Arthritis ?M19.90 - Unspecified osteoarthritis, unspecified site (ICD-10) PTSD (post-traumatic stress disorder) ?F43.10 - Post-traumatic stress disorder, unspecified (ICD-10) Depression ?F32.A - Depression, unspecified (ICD-10) Panic attacks ?F41.0 - Panic disorder [episodic paroxysmal anxiety] (ICD-10) Anxiety ?F41.9 - Anxiety disorder, unspecified (ICD-10) COVID-19 ?U07.1 - COVID-19 (ICD-10) Migraine ?G43.909 - Migraine, unspecified, not intractable, without status migrainosus (ICD-10) Extremity edema ?R60.0 - Localized edema (ICD-10) Menopause ?Z78.0 - Asymptomatic menopausal state (ICD-10) Neuropathy, cervical (radicular) ?M54.12 - Radiculopathy, cervical region (ICD-10) Hypothyroid ?E03.9 - Hypothyroidism, unspecified (ICD-10) Hypertension ?I10 - Essential (primary) hypertension (ICD-10) Asthma ?J45.909 - Unspecified asthma, uncomplicated (ICD-10) Diabetes ?E11.9 - Type 2 diabetes mellitus without complications (ICD-10) Foot pain ?M79.673 - Pain in unspecified foot (ICD-10) Hallux rigidus ?M20.20 - Hallux rigidus, unspecified foot (ICD-10) Hallux valgus ?M20.10 - Hallux valgus (acquired), unspecified foot (ICD-10) Surgical History (Updated 04/23/25 @ 13:50 by Alicia Rico NP) History of cardiac catheterization (04/08/25) ?Z98.890 - Other specified postprocedural states (ICD-10) H/O foot surgery (04/07/24) ?Z98.890 - Other specified postprocedural states (ICD-10) H/O foot surgery (01/16/24) ?Z98.890 - Other specified postprocedural states (ICD-10) History of colonoscopy ?Z98.890 - Other specified postprocedural states (ICD-10) History of cardiac catheterization (~2008) ?Z98.890 - Other specified postprocedural states (ICD-10) H/O cervical spine surgery ?Z98.890 - Other specified postprocedural states (ICD-10) History of cardiac catheterization (~2017) ?Z98.890 - Other specified postprocedural states (ICD-10) H/O section ?Z98.891 - History of uterine scar from previous surgery (ICD-10) Hx of tonsillectomy ?Z90.89 - Acquired absence of other organs (ICD-10) Family History Other Family history of diabetes mellitus Family history of hypertension Family history of myocardial infarction Family history of stroke Social History Within the past year, how often did you have a drink containing alcohol: monthly or less Smoking status: Never smoker Second hand tobacco smoke exposure: Yes Non-prescribed substance use: denies use 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 Highest level of school completed/degree received: Master's degree Meds Home Medications and Allergies Home Medications ?Medication ?Instructions ?Recorded ?Confirmed ?Type alprazolam 0.25 mg tablet 0.25 mg PO .QD PRN anxiety 01/10/24 04/23/25 History aripiprazole 5 mg tablet 5 mg PO DAILY 01/10/24 04/23/25 History ascorbic acid (vitamin C) 1,000 mg 1 g PO DAILY 01/10/24 04/23/25 History capsule aspirin 81 mg tablet,delayed 81 mg PO DAILY 01/10/24 04/23/25 History release (Adult Aspirin Regimen) bisoprolol fumarate 10 mg tablet 10 mg PO DAILY 01/10/24 04/23/25 History calcium carbonate 500 mg PO DAILY 01/10/24 04/23/25 History chlorthalidone 50 mg tablet 50 mg PO DAILY 01/10/24 04/23/25 History duloxetine 60 mg capsule,delayed 120 mg PO DAILY 01/10/24 04/23/25 History release meloxicam 15 mg tablet 15 mg PO DAILY 01/10/24 04/23/25 History metformin 500 mg tablet,extended 1,000 mg PO BID 01/10/24 04/23/25 History release 24 hr montelukast 10 mg tablet 10 mg PO DAILY 01/10/24 04/23/25 History multivitamin (Daily Multi-Vitamin 1 tab PO DAILY 01/10/24 04/23/25 History tablet) trazodone 150 mg tablet 75 mg PO QPM PRN insomnia 01/10/24 04/23/25 History vitamin B complex (Complex B-100 1 tab PO DAILY 01/10/24 04/23/25 History tablet,extended release) levothyroxine 100 mcg tablet 100 mcg PO DAILY 01/16/24 04/23/25 History (Synthroid) amlodipine 5 mg tablet 5 mg PO DAILY 03/30/24 04/23/25 History escitalopram oxalate 10 mg tablet 10 mg PO QPM 03/30/24 04/23/25 History losartan 50 mg tablet 50 mg PO DAILY 03/30/24 04/23/25 History atorvastatin 10 mg tablet 10 mg PO DAILY 02/16/25 04/23/25 History semaglutide 2 mg/dose (8 mg/3 mL) 2 mg subcut QWEEK 02/16/25 04/23/25 History subcutaneous pen injector (Ozempic) zinc 50 mg capsule 50 mg PO DAILY 02/16/25 04/23/25 History alendronate 70 mg tablet 70 mg PO QWEEK 04/23/25 04/23/25 History empagliflozin 25 mg tablet 25 mg PO DAILY 04/23/25 04/23/25 History (Jardiance) estradiol 0.01% (0.1 mg/gram) 1 appful vaginal .twice weekly 04/23/25 04/23/25 History vaginal cream pioglitazone 15 mg tablet 15 mg PO DAILY 04/23/25 04/23/25 History Allergies Allergy/AdvReac Type Severity Reaction Status Date / Time Iodinated Contrast Media Allergy Rash Verified 04/23/25 13:41 shellfish derived Allergy Rash Verified 04/23/25 13:41 lisinopril AdvReac Cough Verified 04/23/25 13:41 Exam Narrative Exam Narrative: Constitutional: Awake, alert, comfortable, well-appearing, nontoxic, interactive, vital signs as charted Head: Normocephalic, atraumatic Neck: Supple, normal appearance, normal range of motion, no meningeal signs, no lymphadenopathy Respiratory: No respiratory distress, breath sounds clear Cardiovascular: Regular rate and rhythm, strong and regular heart tones Abdomen: Nontender, normal bowel sounds, soft Musculoskeletal: Normal gait, right foot tenderness overlying first MPJ incision line, limited range of motion, good capillary refill, sensation intact Skin: No rashes or induration, no lesions, only visible skin inspected Neuro: No neurological deficits, normal sensation Psychiatric: Oriented ?3, normal affect Assessment and Plan Assessment and Plan (1) Hallux valgus: (2) Hallux rigidus: (3) Right foot pain: (4) Pseudarthrosis after fusion or arthrodesis: (5) Nonunion of joint fusion: Plan Revision of right first MPJ fusion with excision of nonunion, removal of hardware, and bone graft as needed scheduled with Dr. Sanon May 04, 2025.
[2025-04-23 14:14] LABS: Anion Gap 13.2; Blood Urea Nitrogen 22.0 mg/dL (7.0-18.0); Calcium 9.5 mg/dL (8.5-10.1); Carbon Dioxide 29.8 mmol/L (21.0-32.0); Chloride 100 mmol/L (98-107); Estimated GFR (African America >60 (>=60 mL/min/1.73m^2); Estimated GFR (Non-African Ame >60 (>=60 mL/min/1.73m^2); Glucose 153 mg/dL (74-106); Potassium 3.0 mmol/L (3.5-5.1); Sodium 140 mmol/L (136-145)
== END 2025-04-23 13:19 | disposition home or self-care (01) ==
LOC: PST 13:19
PROVIDERS: PCP Nurse Practitioner; Visit Provider Podiatrist Foot & Ankle Surgery
DX: Z01.812 Encounter for preprocedural laboratory examination (principal); M96.0 Pseudarthrosis after fusion or arthrodesis
CPT/HCPCS: 36415; 80048; G0463

== ENCOUNTER 2025-04-28 11:18 | Outpatient (OUT) | payer OTHER, SELFPAY ==
--- OUTSIDE RECORDS SUMMARY | 2025-04-28 11:24 | XMS_ITS | CCD ---
Author Organization [facility] Care Team Providers Care Clay Transporter Name Role Phone RINE, JEANINE L Unavailable Unavailable KABOUR, AMEER Unavailable Unavailable AHMAD, SHOWKAT Unavailable Unavailable KAMIREDDY, ADIREDDY Unavailable Unavailable Rine, Jeanine L Primary Care Provider [phone] Rine, Jeanine L Primary Care Provider RINE, JEANINE L Primary Care Unavailable TANVIR, TYLER Referring Unavailable Jose Putnam DO Primary Care Provider Rine PERSONAL INSURANCE ADVISOR, Jeanine L Unavailable Rine INSURANCE ANALYST - PERSONAL INSURANCE ADVISOR, Jeanine L Primary Care Provider Rine BID CLERK, Jeanine Terra Primary Care Unavailable Rine BID CLERK, Jeanine Terra Referring Unavailable Dot Velez MD Attending Unavailable Rine BID CLERK, Jeanine Terra Primary Care Unavailable Mushtaq INSURANCE ANALYST-BID CLERKRossana Attending Unavaila ble Rine PERSONAL INSURANCE ADVISOR, Jeanine L Unavailable OSMAN GILMORE Attending Unavailable [...] Unavailable RINE, JEANINE L Referring Unavailable RINE, JEANIEN L Primary Care Unavailable DEBORAH TEAGUE Referring Unavail able FAWN CONTRERAS Referring Unavailable RINE, JEANINE L Primary Care Unavailable RINE, JEANINE L Primary Care Unavailable RINE, JEANINE L Referring Unavailable Allergies Allergy ClassificationReported Allergen(s)Allergy TypeDate of OnsetReaction(s) FacilityUnclassified (20 sources)IodidesPropensity to adverse reactions to gyzp83-61-7588[facility] Work Phone: Unclassified (20 sources)Shellfish-Derived ProductsPropensity to adverse reactions to drug 87-95-3689[facility] (9 sources)SeafoodPropensity to adverse reactions to wmbs15-58-8881[facility] (20 sources)IodidesPropensity to adverse reactions to gjvw19-24-8964XjbhdSWP [facility] Work Phone: (20 sources)Lisinopril; Translations: [lisinopril]Allergy to uzjpqxfai81-19-1923 [facility] (7 sources)LisinoprilDrug Hcmvdfa33-13-8636Emkvq, Other (See Comments)Bon [facility] (14 sources)Shellfish Protein-Containing Drug ProductsDrug Mvidwopoupp53-33-9434 [facility] (1 source)shell fish dye; Translations: [shell fish dye]Propensity to adverse reactions to food (disorder)[facility] Medications Current Medications MedicationDrug Class(es)DatesSig (Normalized)Sig (Original)acetaminophen 325 mg oral tablet (1 source)Start: 15-12-8661hbtl 4000 mg by mouth every twenty-four hours as aiztdj541 mg, Oral, EVERY 4 HOURS PRN, Starting on Melany 04/08/25 at 1356, Until Discontinued, Pain Mild (1-3) OR per patient request for pain score (4-10), Fever, Fever >100.5 F (38 C), Maximum dose of acetaminophen is 4000 mg from all sources in 24 hours., Recovery(Cath)acetaminophen 325 mg / HYDROcodone bitartrate 5 mg oral tablet (3 sources)Opioid AgonistStart: 04-07-2024 End: 08-49-9869IHEEMnttyjn-acetaminophen ([place]) 5-325 MG tablet every 6 (six) hours 04/07/2024 06/08/2024 Discontinued (Therapy completed)acetaminophen 325 mg / oxyCODONE hydrochloride 5 mg oral tablet (10 sources)Opioid AgonistStart: 01-16-2024 End: 44-26-4193eygKBTJTN-acetaminophen (Percocet) 5-325 MG tablet every 4 hours. 01/16/2024 06/08/2024 Discontinued (Therapy completed)alendronic acid 70 mg oral tablet (17 sources)BisphosphonateStart: 44-51-8635gotwcfqcsym (Fosamax) 70 MG tablet Take 70 mg by mouth every 7 (seven) days 02/08/2025 ActiveALPRAZolam 0.25 mg oral tablet (20 sources)BenzodiazepineALPRAZolam (Xanax) 0.25 MG tablet Indications: Anxiety Take 0.25 mg by mouth as needed at bedtime for anxiety ActiveamLODIPine 5 mg oral tablet (20 sources)Dihydropyridine Calcium Channel BlockerStart: 05-28-2023 End: 42-53-6642yhUVWAXwmf (Norvasc) 5 MG tablet Indications: Essential hypertension TAKE 1 TABLET EVERY MORNING 90tablet 3 06/09/2024 Activeamoxicillin 875 mg oral tablet (2 sources)Penicillin-class AntibacterialStart: 07-10-2024 End: 41-86-7389niju 1 tablet by mouth in the morningamoxicillin (Amoxil) 875 MG tablet Indications: Acute non-recurrent maxillary sinusitis Take 1 tablet (875 mg) by mouth in the morning and 1 tablet (875 mg) before bedtime. Do all this for 7 days. 14tablet 07/10/2024 07/17/2024 ActiveARIPiprazole 5 mg oral tablet (20 sources)Atypical AntipsychoticStart: 68-28-4748diia 1 tablet by mouth once dailyARIPiprazole (Abilify) 5 MG tablet Take 5 mg by mouth Daily 12/31/2022 Activeascorbic acid 500 mg oral capsule (20 sources)Vitamin CAscorbic Acid (Vitamin C) 500 MG capsule Indications: Wellness examination 1 (one) time each day atthe same time ActiveAscorbic Acid (VITAMIN C) 500 MG CAPS every 24 hours Activeatorvastatin 10 mg oral tablet (20 sources)HMG-CoA Reductase InhibitorStart: 98-48-5562hofqshtlkphf (Lipitor) 10 MG tablet Indications: Pure hypercholesterolemia TAKE 1 TABLET IN THE MORNING 90 tablet 1 03/25/2024 ActiveStart: 11-19-2023 End: 66-40-0719ncfj 0.5 tablet by mouth once dailyatorvastatin (Lipitor) 10 MG tablet Indications: Pure hypercholesterolemia (CMS/HCC) Take 0.5 tablets (5 mg) by mouth Daily 11/19/2023 03/25/2024 Discontinuedazithromycin 250 mg oral tablet (5 sources)Macrolide AntimicrobialStart: 02-16-2025 End: 01-32-3992dhza 2 tablets by mouth once daily, then [...] oral tablet (20 sources)beta-Adrenergic BlockerStart: 05-28-2023 End: 65-76-0849zwywzefzoq (Zebeta) 10 MG tablet Indications: Essential hypertension TAKE 1 TABLET IN THE MORNING 90 tablet 3 06/09/2024 ActiveBlood Glucose Monitoring Suppl (FreeStyle Lite) w/Device kit (20 sources)Start: 11-20-2023 End: 00-98-1690Jnqtf Glucose Monitoring Suppl (FreeStyle Lite) w/Device kit USE DIRECTED 11/20/2023 09/14/2024 Discontinued (Therapy completed)Start: 39-68-8689Nzcbl Glucose Monitoring Suppl (FreeStyle Lite) w/Device kit USE DIRECTED 11/20/2023 Activecephalexin 500 mg oral capsule (3 sources)Cephalosporin AntibacterialStart: 01-16-2024 End: 27-11-6231htus 1 capsule by mouth in the morning, then take 1 capsule by mouth in the evening, then take 1 capsule by mouth at bedtimecephalexin (Keflex) 500 MG capsule Take 500 mg by mouth in the morning and 500 mg in the evening and 500 mg before bedtime. 01/16/2024 01/30/2024 Activechlorthalidone 50 mg oral tablet (20 sources)Thiazide-like DiureticStart: 05-28-2023 End: 80-13-1876xrnpucwpxrigkk (Hygroton) 50 MG tablet Indications: Essential hypertension TAKE 1 TABLET EVERY MORNINGWITH FOOD 90 tablet 3 06/09/2024 Active Continuous Glucose Sensor (Dexcom G7 Sensor) misc (20 sources)Start: 15-03-3700Vnzytsdqnj Glucose Sensor (Dexcom G7 Sensor) misc Indications: Type 2 diabetes mellitus with hyperglycemia, with long-term current use of insulin (HCC) USE DIRECTED AND CHANGE EVERY 14 DAYS 2 each11 11/17/2024 ActiveStart: 11-17-2024 End: 98-36-5600Cwvtoaoqid Glucose Sensor (Dexcom G7 Sensor) misc Indications: Type 2 diabetes mellitus with hyperglycemia, with long-term current use of insulin (HCC) 1 Units every 14 (fourteen) days 2 each 11/17/2024 11/17/2024 DiscontinuedStart: 52-42-5759Gxandvtdrc Glucose Sensor (Dexcom G7 Sensor) misc Indications: Type 2 diabetes mellitus with hyperglycemia, with long-term current use of insulin (HCC) 1 Units every 14 (fourteen) days 2 each 11/17/2024 ActiveStart: 11-13-2024 End: 06-82-9275Pgihnnbuku Glucose Sensor (Dexcom G7 Sensor) misc Indications: Type 2 diabetes mellitus with hyperglycemia, with long-term current use of insulin (HCC) 1 Units every 14 (fourteen) days 2 each 11/13/2024 11/17/2024 Discontinued (Reorder)Start: 03-16-2024 End: 27-23-8356Fejnktdekv Glucose Sensor (Dexcom G7 Sensor) misc Indications: Type 2 diabetes mellitus without complication, without long-term current use of insulin 1 Units every 14 (fourteen) days 2 each 03/16/2024 09/14/2024 Discontinued (Therapy completed)Start: 92-14-9082Nzytgqwcen Glucose Sensor (Dexcom G7 Sensor) misc Indications: Type 2 diabetes mellitus without comp lication, without long-term current use of insulin 1 Units every 14 (fourteen) days 2 each 03/16/2024 ActiveStart: 40-09-0561Wxhozrauzg Glucose Sensor (Dexcom G7 Sensor) [facility] [place] Indications: Type 2 diabetes mellitus without comp lication, without long-term current use of insulin (CMS/HCC) 1 Units every 14 (fourteen) days 2 each 03/16/2024 ActiveStart: 04-21-8086Vjuuvvpqkj Glucose Sensor (Dexcom G7 Sensor) [facility] [place] Indications: Type 2 diabetes mellitus without complication, without long-term current use of insulin (CMS/HCC) 1 Units every 14 (fourteen) days 2 each 03/06/2024 Activedextromethorphan hydrobromide 3 mg/ml / promethazine hydrochloride 1.25 mg/ml oral solution (6 sources)Phenothiazine, Uncompetitive B-vrynfx-G-aspartate Receptor Antagonist, Sigma-1 AgonistStart: 07-10-2024 End: 26-46-8192teshpbpgqgci-dextromethorphan (Phenergan-DM) 6.25-15 MG/5ML syrup Indications: Acute non-recurrent [...] (20 sources)Sodium-Glucose Cotransporter 2 InhibitorStart: 03-06-2024 End: 81-10-5943unin 1 tablet by mouth once dailyJardiance 25 MG Indications: Type 2 diabetes mellitus without complication, without long-term current use of insulin ([facility]) TAKE 1 TABLET BY MOUTH EVERY DAY 30 tablet 03/08/2025 Active Start: 11-19-2023 End: 97-59-9783cesu 1 tablet by mouth once dailyempagliflozin (Jardiance) 10 MG Indications: Type 2 diabetes mellitus without complication, withoutlong-term current use of insulin (CMS/HCC) Take 1 tablet (10 mg) by mouth Daily 30 tablet 11 01/22/2024 01/21/2025 Activeescitalopram 10 mg oral tablet (20 sources)Serotonin Reuptake InhibitorStart: 31-95-4712oukr 1 tablet by mouth once dailyescitalopram (Lexapro) 10 MG tablet Take 10 mg by mouth Daily 03/13/2024 Activelevothyroxine sodium 0.1 mg oral tablet (20 sources)l-ThyroxineStart: 12-12-2023 End: 62-59-2548Hljkwresm 100 MCG tablet Indications: Acquired hypothyroidism TAKE [...] oral tablet (20 sources)Angiotensin 2 Receptor BlockerStart: 93-79-2250myxu 0.5 tablet by mouth once dailylosartan (Cozaar) 50 MG tablet Indications: Type 2 diabetes mellitus without complication, without long-term current use of insulin (HCC) TAKE 0.5 TABLETS BY MOUTH DAILY. 45 tablet 1 04/06/2025 ActiveStart: 10-15-2024 End: 34-91-2168ezai 1 tablet by mouth once dailylosartan (Cozaar) 50 MG tablet Indications: Type 2 diabetes mellitus without complication, without long-term current use of insulin (HCC) TAKE 1 TABLET BY MOUTH EVERY DAY 90 tablet 1 01/10/2025 ActiveStart: 01-22-2024 End: 24-19-8143idnv 0.5 tablet by mouth once dailylosartan (Cozaar) 50 MG tablet Indications: Type 2 diabetes mellitus without complication, without long-term current use of insulin (HCC) TAKE 0.5 TABLETS BY MOUTH DAILY. 45 tablet 1 04/06/2025 ActiveStart: 05-28-2023 End: 72-32-5937flzo 1 tablet by mouth once dailylosartan (COZAAR) 100 MG tablet Take 1 tablet by mouth daily 05/28/2023 Suspendedmeloxicam 15 mg oral tablet (20 sources)Nonsteroidal Anti-inflammatory DrugStart: 05-28-2023 End: 10-48-8806gjwerqair (Mobic) 15 MG tablet Indications: Degenerative cervical disc TAKE 1 TABLET IN THE ZRZHVSX45 tablet 3 06/09/2024 Khozmc90 hr metFORMIN hydrochloride 500 mg extended release oral tablet (20 sources)BiguanideStart: 29-00-2945iauNRWQUW XR (Glucophage-XR) 500 MG 24 hr tablet Indications: Type 2 diabetes mellitus without complication, without long- term current use of insulin (HCC) TAKE 2 TABLETS EVERY MORNING AND 2 TABLETS B EFORE BEDTIME 360 tablet 3 06/09/2024 ActiveStart: 05-28-2023 End: 25-99-1874zbce 2 tablets by mouth every twenty-four hours [...] tablet (20 sources)Leukotriene Receptor AntagonistStart: 05-28-2023 End: 33-33-4622gjqiyplqfiz (Singulair) 10 MG tablet Indications: Environmental and [...] tablet (3 sources)Serotonin-3 Receptor AntagonistStart: 01-16-2024 End: 05-85-9390qlkr 1 tablet by mouth every six hours as needed for nausea ondansetron (Zofran) 4 MG tablet Take 1 tablet by mouth every 6 (six) hours if needed for nausea 01/16/2024 01/27/2024 ActiveOZEMPIC, 0.25 OR 0.5 MG/DOSE, 2 MG/3ML SOPN (2 sources)Start: 57-39-8660UDXCKJG, 0.25 OR 0.5 MG/DOSE, 2 MG/3ML SOPN INJECT 0.25 MG SUBCUTANEOUSLY WEEKLY 03/10/2024 Activepioglitazone 15 mg oral tablet (12 sources)Peroxisome Proliferator Receptor alpha Agonist, Peroxisome Proliferator Receptor gamma Agonist, ThiazolidinedioneStart: 03-02-2025 End: 04-61-0857qrmi 1 tablet by mouth once dailypioglitazone (Actos) 15 MG tablet Indications: Type 2 diabetes mellitus with hyperglycemia, withoutlong- term current use of insulin (HCC) Take 1 tablet (15 mg) by mouth Daily 90 tablet 3 03/02/2025 03/02/2026 ActivepredniSONE 10 mg oral tablet (2 sources)Start: 07-10-2024 End: 55-41-7220mbas 4 tablets by mouth once daily, then [...] mg/ml pen injector (4 sources)Start: 05-04-2024 End: 05-17-1743Dnslvlbvjos, 1 MG/DOSE, (OZEMPIC, 1 MG/DOSE,) 2 MG/1.5ML SOPN Inject 1 mg into the skin once a week05/04/2024 Activesemaglutide (Ozempic, 1 MG/DOSE,) 4 MG/3ML solution pen-injector (7 sources)Start: 01-01-2025 End: 15-69-6714nsiaba 1 mg by subcutaneous injection every weeksemaglutide (Ozempic, 1 MG/DOSE,) 4 MG/3ML solution pen-injector Indications: Type 2 diabetes mellitus with hyperglycemia, with long-term current use of insulin (HCC) Inject 1 mg under the skin 1 (one) time per week 1 each 5 01/01/2025 01/22/2025 DiscontinuedStart: 82-41-8672kbqbca 1 mg by subcutaneous injection every weeksemaglutide (Ozempic, 1 MG/DOSE,) 4 MG/3ML solution pen-injector Indications: Type 2 diabetes mellitus with hyperglycemia, with long-term current use of insulin (HCC) Inject 1 mg under the skin 1 (one) time per week 1 each 5 01/01/2025 ActiveStart: 05-05-2024 End: 67-52-3575vuaabr 1 mg by subcutaneous injection every weeksemaglutide (Ozempic, 1 MG/DOSE,) 4 MG/3ML solution pen-injector Indications: Type 2 diabetes mellitus without complication, without long-term current use of insulin (CMS/HCC) Inject 1 mg under the skin 1 (one) time per week 3 mL 4 05/05/2024 06/07/2024 DiscontinuedStart: 55-20-9377fdjjsw 1 mg by subcutaneous injection every weeksemaglutide (Ozempic, 1 MG/DOSE,) 4 MG/3ML solution pen-injector Indications: Type 2 diabetes mellitus without complication, without long-term current use of insulin (CMS/HCC) Inject 1 mg under the skin 1 (one) time per week 3 mL 4 05/05/2024 ActiveSemaglutide, 2 MG/DOSE, (Ozempic, 2 MG/DOSE,) 8 MG/3ML solution pen-injector (20 sources)Start: 02-11-8664cljyup 2 mg by subcutaneous injection every week Semaglutide, 2 MG/DOSE, (Ozempic, 2 MG/DOSE,) 8 MG/3ML solution pen-injector Indications: Type 2 diabetes mellitus with hyperglycemia, with long-term current use of insulin (HCC) Inject 2 mg under the skin 1 (one) time per week 3 mL 5 03/16/2025 ActiveStart: 01-22-2025 End: 47-91-0031otvypz 2 mg by subcutaneous injection every weekSemaglutide, 2 MG/DOSE, (Ozempic, 2 MG/DOSE,) 8 MG/3ML solution pen-injector Indications: Type 2 diabetes mellitus with hyperglycemia, with long-term current use of insulin (HCC) Inject 2 mg under the skin 1 (one) time per week 3 mL 01/22/2025 03/16/2025 Discontinued (Reorder)Start: 75-25-4893tedpyh 2 mg by subcutaneous injection every weekSemaglutide, 2 MG/DOSE, (Ozempic, 2 MG/DOSE,) 8 MG/3ML solution pen-injector Indications: Type 2 diabetes mellitus with hyperglycemia, with long-term current use of insulin (HCC) Inject 2 mg under the skin 1 (one) time per week 3 mL 01/22/2025 ActiveStart: 11-22-2024 End: 75-45-6870ibmkpf 2 mg by subcutaneous injection every weekSemaglutide, 2 MG/DOSE, (Ozempic, 2 MG/DOSE,) 8 MG/3ML solution pen-injector Indications: Type 2 diabetes mellitus without complication, without long-term current use of insulin (HCC) INJECT 2 MG SUBCUTANEOUSLY WEEKLY 3 mL 11/22/2024 12/14/2024 Discontinued (Therapy completed)Start: 08-53-8989jlggcf 2 mg by subcutaneous injection every weekSemaglutide, 2 MG/DOSE, (Ozempic, 2 MG/DOSE,) 8 MG/3ML solution pen-injector Indications: Type 2 diabetes mellitus without complication, without long-term current use of insulin (HCC) INJECT 2 MG SUBC UTANEOUSLY WEEKLY 3 mL 5 11/22/2024 ActiveStart: 06-08-2024 End: 33-53-9576frunuo 2 mg by subcutaneous injection every weekSemaglutide, 2 MG/DOSE, (Ozempic, 2 MG/DOSE,) 8 MG/3ML solution pen-injector Indications: Type 2 diabetes mellitus without complication, without long-term current use of insulin (HCC) Inject 2 mg under the skin 1 (one) time per week 3 mL 5 06/08/2024 11/22/2024 DiscontinuedStart: 37-80-8851rdgzxa 2 mg by subcutaneous injection every weekSemaglutide, 2 MG/DOSE, (Ozempic, 2 MG/DOSE,) 8 MG/3ML solution pen- injector Indications: Type 2 diabetes mellitus without complication, without long-term current use of insulin (HCC) Inject 2 mg under the skin 1 (one) time per week 3 mL 06/08/2024 ActiveStart: 73-68-5077mzzxim 2 mg by subcutaneous injection every weekSemaglutide, 2 MG/DOSE, (Ozempic, 2 MG/DOSE,) 8 MG/3ML solution pen-injector Indications: Type 2 diabetes mellitus without complication, without long-term current use of insulin Inject 2 mg under theskin 1 (one) time per week 3 mL 06/08/2024 ActiveStart: 95-59-4721fwcokm 2 mg by subcutaneous injection every weekSemaglutide, [...] Midline or CentralLine = 20 mL/lumen, Pre-Procedure(Cath)Start: 68-57-1563TeukeERJkxw, at 50 mL/hr, CONTINUOUS, Starting on Melany 04/08/25 at 1415, -Rate of IV fluid administration during recovery will be based on the patient's LVEDP obtained during the procedure using the following formula: 1. LVEDP 18 = 1.5cc/kg/hr If no LVEDP obtained, ask manager of broadcast content for fluid rate and volume to be given in recovery. -Fluids will be infused over a minimum of 2 hours. Rate shall notexceed 500 cc/hr. Ask manager of broadcast content for fluid volume total to be infused. -If GFR is less than 30, fl uids will be infused over a minimum of 3 hours. -In case of reduced EF, CHF, etc., consult manager of broadcast content for rate and volume to be administered., Recovery(Cath)Start: 35-38-8580nmpp 20 mL intravenously every hourIntraVENous, at 5-250 [...] ophthalmic solution (14 sources)Sulfonamide AntibacterialStart: 06-15-2023 End: 59-97-2699dpxuqbjfwvfni (Bleph-10) 10 % ophthalmic solution 2 drops [...] Inhibitor, Nonsteroidal Anti-inflammatory Drug Start: 04-07-2024 End: 69-82-4250lrje 1 tablet by mouth every twelve hoursaspirin 325 MG tablet Take 325 mg by mouth every 12 (twelve) hours 04/07/2024 02/16/2025 Discontinued (Therapy completed)Start: 01-16-2024 End: 04-70-3307ndfa 1 tablet by mouth in the morningCVS Aspirin 325 MG tablet Take 325 mg by mouth in the morning and 325 mg before bedtime. 01/16/2024 03/06/2024 Discontinued (Therapy completed)Start: 05-10-2023 End: 04-34-7084miwr 1 tablet by mouth in the morningaspirin [...] 1 capsule by mouth daily Suspended End: 04-70-6557uqiz 1 capsule by mouth in the morningcalcium [...] cartridge (4 sources)Histamine-1 Receptor AntagonistStart: 04-08-2025 End: 57-87-902796 mg, IntraVENous, ONCE, 1 dose, On Melany 04/08/25 at 1315, IV Push at rate not to exceed 25 mg/min.,Pre-Procedure(Cath)Start: 20-16-7971pxxz 1 capsule by mouth every six hours as neededdiphenhydrAMINE (BENADRYL) 50 MG capsule Take 1 capsule by mouth every 6 hours as needed for Itching 20 capsule 0 07/23/2017 Activeestradiol 0.1 mg/ml vaginal cream (20 sources)EstrogenStart: 23-80-6517hwhzljnfd (ESTRACE VAGINAL) 0.1 MG/GM vaginal cream Place 1 g vaginally daily for 14 days Then twice weekly 42 g 2 12/15/2024 Suspendedestradiol (Estrace) 0.1 MG/GM vaginal cream PLACE 1 GRAM VAGINALLY DAILY FOR 14 DAYS THEN TWICE WEEKLY Activefamotidine (PEPCID) 20 MG/2ML 20 mg in sodium chloride (PF) 0.9 % 10 mL injection (1 source)Start: 04-08-2025 End: 38-65-0343qgar 10 mL intravenously once20 mg, IntraVENous, ONCE, On Melany 04/08/25 at 1315, For 1 dose, IV push over 2 minutes. Dilute with 10 mL NS., Pre-Procedure(Cath)fluconazole 100 mg oral tablet (20 sources)Azole AntifungalStart: 02-28-2024 End: 89-72-3546zvvq 1 tablet by mouth once dailyfluconazole (DIFLUCAN) [...] 2 mL injection (1 source)Start: 04-08-2025 End: 49-90-6119311 mg, IntraVENous, ONCE, On Melany 04/08/25 at 1315, For 1 dose, Reconstitute 125 mg vial with 2 mL diluent., Pre-Procedure(Cath)OZEMPIC, 1 MG/DOSE, 4 MG/3ML SOPN sc injection (7 sources)Start: 47-81-4958LBBNJZA, 1 MG/DOSE, 4 MG/3ML SOPN sc injection Inject 1 mg into the skin once a week 2 units weeklywill be switching to mounjaro 05/05/2024 SuspendedStart: 90-87-9960QFKRNFR, 1 MG/DOSE, 4 MG/3ML SOPN sc injection Inject 1 mg into the skin once a week 2 units weeklywill be switching to mounjaro 05/05/2024 ActiveStart: 66-04-7895CCJEELG, 1 MG/DOSE, 4 MG/3ML SOPN sc injection Inject 1 mg into the skin once a week 05/05/2024 Active Ozempic, 2 MG/DOSE, 8 MG/3ML solution pen-injector (3 sources)Start: 10-29-2023 End: 62-93-2872Dvozvss, 2 MG/DOSE, 8 MG/3ML solution pen-injector Indications: Type 2 diabetes mellitus without complication, without long-term current use of insulin ([facility]/HCC) INJECT 2MG SUBCUTANEOUSLY ONCE WEEKLY(EVERY 7 DAYS) 9 mL 1 10/29/2023 01/22/2024 Discontinued (Therapy completed)Start: 80-71-7471Foonnrv, 2 MG/DOSE, 8 MG/3ML solution pen-injector Indications: Type 2 diabetes mellitus without complication, without long-term current use of insulin (CMS/HCC) INJECT 2MG SUBCUTANEOUSLY ONCE WEEKLY(EVERY 7 DAYS) 9 mL 1 10/29/2023 Activeregadenoson (LEXISCAN) injection 0.4 mg (1 source)Start: 03-12-2025 End: 89-57-9677gtgx 0.4 mg intravenously once as needed0.4 mg, IntraVENous, IMG ONCE PRN, 1 dose, Starting on Sat03/12/25 at 1023, Until Sat03/12/25 at 1031, OtherSemaglutide,0.25 or 0.5MG/DOS, (Ozempic, 0.25 or 0.5 MG/DOSE,) 2 MG/3ML solution pen-injector (9 sources)Start: 05-01-2024 End: 04-31-6604Rxmfrbqaawc,0.25 or 0.5MG/DOS, (Ozempic, 0.25 or 0.5 MG/DOSE,) 2 MG/3ML solution pen-injector Indications: Type 2 diabetes mellitus with hyperglycemia, with long-term current use of insulin (CMS/HCC)INJECT 0.25 MG SUBCUTANEOUSLY WEEKLY 2 mL 5 05/01/2024 05/04/2024 Discontinued (Therapy completed)Start: 62-93-6214Vjfsxjxomii,0.25 or 0.5MG/DOS, (Ozempic, 0.25 or 0.5 MG/DOSE,) 2 MG/3ML solution pen-injector Indications: Type 2 diabetes mellitus with hyperglycemia, with long-term current use of insulin (CMS/HCC)INJECT 0.25 MG SUBCUTANEOUSLY WEEKLY 2 mL 5 05/01/2024 ActiveStart: 03-10-2024 End: 14-34-3178Bqrwbiqfajc,0.25 or 0.5MG/DOS, (Ozempic, 0.25 or 0.5 MG/DOSE,) 2 MG/3ML solution pen-injector Indications: Type 2 diabetes mellitus with hyperglycemia, with long-term current use of insulin (CMS/[facility])Inject 0.25 mg under the skin 1 (one) time per week 3 mL 1 03/10/2024 05/01/2024 Discontinued Start: 04-35-7065Hnfczlvquqf,0.25 or 0.5MG/DOS, (Ozempic, 0.25 or 0.5 MG/DOSE,) 2 MG/3ML solution pen-injector Indications: Type 2 diabetes mellitus with hyperglycemia, with long-term current use of insulin (CMS/[facility])Inject 0.25 mg under the skin 1 (one) time per week 3 mL 1 03/10/2024 Activetechnetium sestamibi (CARDIOLITE) injection 30 millicurie (2 sources)Start: 03-15-2025 End: 33-01-7621xxiw 1 dose intravenously once30 millicurie, IntraVENous, IMG ONCE PRN, 1 dose, Starting on Sat03/15/25 at 1256, Until Sat03/15/25 at 1244, OtherStart: 03-12-2025 End: 73-72-0866zpms 1 dose intravenously once30 millicurie, IntraVENous, IMG [...] MG/0.5ML solution auto-injector (2 sources)Start: 12-14-2024 End: 88-55-0961kqaxwr 2.5 mg by subcutaneous injection every weekTirzepatide (Mounjaro) 2.5 MG/0.5ML solution auto-injector Indications: Type 2 diabetes mellitus with hyperglycemia, with long-term current use of insulin ([facility]) Inject 2.5 mg under the skin 1 (one) time per week 2 mL 1 12/14/2024 01/01/2025 Discontinued (Cost of medication)Start: 13-25-6482qwqhnz 2.5 mg by subcutaneous injection every weekTirzepatide (Mounjaro) 2.5 MG/0.5ML solution auto-injector Indications: Type 2 diabetes mellitus with hyperglycemia, with long-term current use of insulin (HCC) Inject 2.5 mg under the skin 1 (one) time per week 2 mL 1 12/14/2024 ActivetraZODone hydrochloride 150 mg oral tablet (20 sources)Serotonin Reuptake InhibitorStart: 01-18-2025 End: 75-88-1307tqtx 0.5 tablet by mouth once daily at bedtimetraZODone (Desyrel) 150 MG tablet TAKE 1/2 TABLET BY MOUTH ONCE A DAY AT BEDTIME 01/18/2025 03/23/20 25 Discontinued (Therapy completed)take 1 tablet by mouth once dailytraZODone (DESYREL) 150 MG tablet Take 1 tablet by mouth nightly Suspended End: 15-64-8955repWZMgcu (Desyrel) 150 MG tablet Indications: Insomnia due to other mental disorder Take 75 mg by mouth as needed at bedtime 09/14/2024 Discontinued (Therapy completed) Problems Active Problems Problem ClassificationProblemDateDocumented DateEpisodic/ChronicAcquired foot deformities (20 sources)Toe joint rigid; Translations: [Hallux rigidus, left foot]Onset: 602955-67-2024NlkmfoyTvunlbb disorders (20 sources)Panic attack; Translations: [Panic disorder [episodic paroxysmal anxiety]]Onset: 07-20-2017 Resolved: 522065-80-8941GpwnowpQyrrnt (20 sources)Mild intermittent asthma; Translations: [Mild intermittent asthma, uncomplicated]Onset: 12-31-6815GqymomaThshfism mellitus with complications (20 sources)Hyperglycemia due to type 2 diabetes mellitus; Translations: [Type 2 diabetes mellitus with hyperglycemia]Onset: 157639-49-0041PfzmuicNleupxxk mellitus without complication (20 sources)Diabetes mellitus; Translations: [Type 2 diabetes mellitus without complications]Onset: 11-09-2022 Resolved: 850399-75-8359TbyaxccKsygwlchm of lipid metabolism (20 sources)Pure hypercholesterolemia; Translations: [Pure hypercholesterolemia, unspecified]Onset: 858565-84-4263VpyfiozNznrbrqoh hypertension (20 sources)Hypertensive disorder; Translations: [Essential (primary) hypertension]Onset: 314803-16-8414LnfzqsjBphwthrcjvinp symptoms and ill- defined conditions (2 sources)Dysuria; Translations: [Dysuria]40-22-8794WlyceqnePsozaxgzaqclu mental health disorders (12 sources)Primary insomnia; Translations: [Primary insomnia]Onset: 11-09-2022 86-23-4288OsysypbBara disorders (20 sources)Severe major depression, single episode, without psychotic features; Translations: [Major depressive disorder, single episode, severe without psychotic features]Onset: 273497-93-0516YcltegvGmukzfj (1 source)Candidiasis of vagina; Translations: [Sandi vaginitis]02-28-2024 EpisodicNutritional deficiencies (20 sources)Vitamin D deficiency; Translations: [Vitamin D deficiency, unspecified]Onset: 504087-79-7776WdcjzmxUasyhtiggfgj (2 sources)Senile osteoporosis; Translations: [Age-related osteoporosis without current pathological fracture]Onset: 911821-16-7437EhnvlnhLzfus and unspecified benign neoplasm (3 sources)Melanocytic nevus of trunk; Translations: [Melanocytic nevi of trunk] 08-65-3843LaqydbvhYlslr and unspecified benign neoplasm (1 source)Senile angioma; Translations: [Hemangioma of skin and subcutaneous tissue]69-23-2462AgyoqmquLvbqv gastrointestinal disorders (2 sources)Dysphagia; Translations: [Dysphagia, unspecified]24-08-3703Jfcfgikt Other gastrointestinal disorders (1 source)Dysphagia, unspecified; Translations: [Dysphagia, unspecified]Onset: 85-77-9765EellfcnvBcmch nutritional; endocrine; and metabolic disorders (20 sources)Obesity; Translations: [Obesity, unspecified]Onset: 11-09-2022 02-74-0820NayyrxyVykbw nutritional; endocrine; and metabolic disorders (6 sources)Body mass index 30+ - obesity; Translations: [Body mass index (BMI) 38.0-38.9, adult]66-67-8354IyzfskrNirwi nutritional; endocrine; and metabolic disorders (4 sources)Obesity caused by energy imbalance; Translations: [Morbid (severe) obesity due to excess calories]61-71-4142GtfbwsuFpirg nutritional; endocrine; and metabolic disorders (2 sources)Severe obesity; Translations: [Class 2 severe obesity due to excess calories with serious comorbidity and body mass index (BMI) of 39.0 to 39.9 in adult]22-75-2819NmcmiouLxula screening for suspected conditions (not mental disorders or infectious disease) (20 sources)Cardiovascular stress test abnormal; Translations: [Abnormal result of other cardiovascular function study]Onset: 07-21-2017 Resolved: 699725-99-9287WsujsoowEhpzj skin disorders (3 sources)Seborrheic keratosis; Translations: [Other seborrheic keratosis] 59-29-4799EceivvmkQblhb skin disorders (3 sources)Inflamed seborrheic keratosis; Translations: [Inflamed seborrheic keratosis]43-06-3062CcwtycpdCzjzt upper respiratory disease (20 sources)Allergic disposition; Translations: [Other allergic rhinitis]Onset: 959912-62-9468IcqipflXekdt upper respiratory infections (5 sources)Acute maxillary sinusitis; Translations: [Acute maxillary sinusitis, unspecified]83-66-9924BmxefdgnNsktogva codes; unclassified (2 sources)Obstructive sleep apnea syndrome; Translations: [Obstructive sleep apnea (adult) (pediatric)]30-20-5390TozcwiqBcvipyos codes; unclassified (4 sources)Patient encounter status; Translations: [Encounter for procedure for purposes other than remedying health state, unspecified]56-58-2273Wyvenrdv Spondylosis; intervertebral disc disorders; other back problems (20 sources)Degeneration of cervical intervertebral disc; Translations: [Other cervical disc degeneration, unspecified cervical region]Onset: 11-09-2022 56-29-9521FapqgpgLxdbxpe disorders (20 sources)Acquired hypothyroidism; Translations: [Hypothyroidism, unspecified] Onset: hronic Past or Other Problems Problem ClassificationProblemDateDocumented DateEpisodic/ChronicCancer of cervix (2 sources)Cervicovaginal cytology: High grade squamous intraepithelial lesion or carcinoma; Translations: [High grade squamous intraepithelial lesion on cytologic smear of cervix (HGSIL)]Onset: 428644-86-6193Uenvtaom Immunizations and screening for infectious disease (6 sources)Immunization due; Translations: [Encounter for immunization]Onset: 456628-84-1299FsnwnygvGajt disorders (6 sources)Mood disordersOnset: 942391-74-6602Oabtuvzozcd chest pain (12 sources)Chest pain, unspecified; Translations: [Chest pain]Onset: 07-20-2017 Resolved: 513664-59-2746JenfijqmLrzjx circulatory disease (2 sources)Low blood pressure; Translations: [Other hypotension]01-22-2024 EpisodicResidual codes; unclassified (20 sources)Insomnia; Translations: [Insomnia, unspecified]Onset: 11-09-2022 19-52-8715Hpjorhdm Results Test NameValueInterpretationReference RangeFacilityFL UGIon 04-12-2025 EXAMINATION: [...] by: Donta Melendez DO 04/12/[address] [facility] UGIEXAMINATION: SINGLE CONTRAST UPPER GI SERIES 04/12/2025 [...] Signed by: Donta Melendez DO 04/12/25 Final resultNormalMerSilver Hill HospitalRadiology Study observation (narrative) [facility] UGIOrdered By: Radiologist Radiology on 20-04-3018LXYJHermann Area District Hospital Work Phone: cardiac procedureon 68-77-2926Pyyu surface area Derived from formula2.11 m2[facility]- [facility]ary Angiography Brief Post Operative Note: No [...] Risk points = 0.[facility] CV CPACS HEMOBon [facility] HospitalRadiology Study observation (narrative)Darell [facility] HospitalCryotherapy, skin lesionon 23-67-0184REWJHermann Area District HospitalTabeodthwi12-poowjajnibiply D3 [Mass/Vol]on 85-41-542261- hydroxyvitamin D [Mass/Vol]53 ng/mL30 - 100 ng/mLNCapital Region Medical CenterComment on above:Vitamin D Status 25-OH Vitamin D: Deficiency: <20 ng/mL Insufficiency: 20 - 29 ng/mL Optimal: > or = 30 ng/mL For 25-OH Vitamin D testing on patients on D2-supplementation and patients for whom quantitation of D2 and D3 fractions is required, the QuestAssureD(TM) 25-OH VIT D, (D2,D3), LC/MS/MS is recommended: order code 30129 (patients >2yrs). See Note 1 Note 1 For additional information, please refer to http://education.Quandora/faq/UVJ366 (This link is being provided for informational/ educational purposes only.) Laboratory - Chemistry and Chemistry - challengeon 66-70-2504Rwos T4 [Mass/Vol] 1.4 ng/dL0.8 - 1.8 ng/dLSaint Mary's Hospital of [facility] Springs Qn0.95 m[IU]/LNOMS HealthcareNo Panel Informationon 88-95-9207URORUDM:YES MULTIPLE TESTING PRIORITIES; ROUTINE TESTING TO FOLLOW. FASTING: YESQUESTPerforming Organization Information Site ID: QPT Name: [employer] [facility] Address: [address] [place] [address], [address] [place] [phone] Director: Shaheed Becerra MDCaroMont HealthNuclear stress test with myocardial perfusionOrdered By: Jackson Wiggins on 92-24-9478Iangcijv Diastolic BP 86mmHgBon [facility] [employer] Work Phone: Baseline BO53OJGOml [facility] [employer] Work Phone: Baseline Systolic WB051jxHdBll [facility] [employer] Phone: Exercise Duration Kfyqjjn73kokJeo [employer] Phone: [phone] Duration Time4 minBon [employer] Phone: [phone] Stress EF69 %Darell [employer] Phone: [phone] Diastolic QK36zzKbYjg [employer] Phone: [phone] Estimated Workload6.1METSBon [employer] Phone: [phone] Peak VS244GMQEnm [employer] Phone: [phone] Percent HR Dldpgqdc92 %Darell [employer] Phone: [phone] Rate Pressure Onoxymu76652XKU*mmHgHonorhealth Scottsdale [facility] [employer] Phone: [phone] ST Depression1.5 mmHonorhealth Scottsdale Osborn Medical Center [employer] Phone: [phone] Systolic RX821jrElTdn [employer] Phone: [phone] Target EI254kegKea [employer] Phone: [phone] [employer] Phone: Nuclear stress test with myocardial perfusionon 40-46-2056Txbgry Function: Left ventricular function post-stress is normal. [...] The stress end diastolic cavity size is normal.[facility] CV RPACS STRESS Nuclear stress test with myocardial perfusionon 50-63-8719Fyvpygdwr Study observation (narrative)[facility] HealthGlucose (Bld) [Mass/Vol]Ordered By: Marilee Katt on 05-75-6561Zgfavmj Blood, PUE415 mg/dLPershing Memorial Hospital HealthcareSurgical Pathology Reporton 39-48-4104Cpbswvms Pathology Report(NOTE) Path Number: [id number] -- Diagnosis -- A. Endocervix, curettage: Mucus [...] C: 7 Gross Description A. AISHWARYA MONA, [facility] Received in formalin are mucinous tissue [...] block positivity. Controls are appropriate. Processing Lab: [facility] [address] [place] [address] Interpretation Performed at [address] [place] [address] SURGICAL PATHOLOGY CONSULTATION Patient Name: AISHWARYA AGUILA [facility] Rec: [id number] [facility] ANATOMIC PATHOLOGY [address] [place] [phone] NoSt. Anthony's HospitalHPV DNA High Riskon 64-22-5006PJO InterAdams County Regional Medical Center on above:Result Comment: This test amplifies and [...] other forensic purposes.Performed By: #### HPVH #### [employer] [address] [place] [address] [id number] Metal Bonding Helper: Aasd Draper MDHPV Type 16DetectedAbnoOhioHealth Berger Hospital on above:Performed By: #### HPVH #### [address] [id number] Metal Bonding Helper: Asad Draper MDHPV Type 18Not detectedNormalNOTKettering Health Greene Memorial on above:Performed By: #### HPVH #### [employer] [address] [place] [address] [phone] Metal Bonding Helper: Mili Snow High Risk HPVNot detectedNoOhioHealth Berger Hospital on above:Performed By: #### HPVH #### [employer] [address] [place] [address] [phone] Metal Bonding Helper: Caryn Snow/GC DNA, TPon 32-34-8644Efppnzlbs Probe, TPNegativeNormalNEGMercy Memorial Hospital on above:Result Comment: CHLAMYDIA TRACHOMATIS DNA not [...] nucleic acid target.Performed By: #### CYTCGP #### [employer] [address] [place] [address] [employer] Bonding Helper: Asad Draper MDGoandrearrhea Probe, TPNegativeNormmsNEGMercy Memorial Hospital on above:Result Comment: NEISSERIA GONORRHOEAE DNA not [...] nucleic acid target.Performed By: #### CYTCGP #### [employer] [address] [place] [address] Metal Bonding Helper: Asad Draper MDHPV DNA High Riskon 39-58-8348IBE Sample.[facility] PREPLakeHealth Beachwood Medical CenterComment on above:Performed By: #### HPVH #### [employer] [address] [place] [address] Metal Bonding Helper: JENNI SnowourceCERVICAL MATERIALLakeHealth Beachwood Medical CenterComment on above:Performed By: #### HPVH #### [employer] [address] [place] [address] [phone] Metal Bonding Helper: Asad Draper [facility] – NORMANytology Reporton 63-19-1257Zvxrixiq report Cyto stain.thin prep Doc (Cvx/Vag)(NOTE) Path Number: [id number] DIAGNOSIS Imaged ThinPrep Pap - Cervical (1 [...] or for other forensic purposes. 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 Your patient should be reminded to consult you immediately if she experiences any suspicious signs or symptoms, regardless of her Pap smear result. GYNECOLOGIC CYTOLOGY REPORT Patient Name: AISHWARYA AGUILA [facility] Rec: [id number] [facility] [employer] [facility] ANATOMIC PATHOLOGY [facility]. [place], [place] [address] [facility] MAMMOGRAM SCREENING TOMOSYNTHESIS BILATERALon 35-71-9942ME MAMMOGRAM SCREENING TOMOSYNTHESIS BILATERALThis is a summary [...] Screening Mammogram ELECTRONICALLY SIGNED BY: Martin Larkin M.D.NormalNot AvailableNo Panel Informationon 79-27-7216Iiaihxulze comment: Snip excision Informed consent: discussed and consent obtained Hemostasis achieved with: electrodesiccationCaroMont Health Destruction method comment: Snip removal Anesthesia: the lesion was anesthetized in a standard fashion Anesthetic: 1% lidocaine w/ epinephrine 1-100,000 buffered w/ 8.4% NaHCO3 Hemostasis achieved with: electrodesiccation Outcome: patient tolerated procedure well with no complicationsMayo Clinic Health System– OakridgeDEXA BONE DENSITY 2 SITESon 44-83-9425DPWF BONE DENSITY 2 SITESDEXA BONE DENSITY 2 SITES 07/15/2023 12:21 PM EST Indication: Screening. Comparison: Accurate comparison is not possible due to differences in equipment. Tabtor. Lumbar spine and bilateral hips. Lumbar spine [...] Signed by: Bernardo Squires MD 07/17/23 Final resultNoThe University of Toledo Medical CenterDEXA BONE DENSITY 2 SITES 07/15/2023 [...] DENSITY 2 SITESOrdered By: Radiologist Radiology on 45-64-2872[facility] Work Phone: DXA Bone [Mass/Area] Bone densityon 07-17-2023 Some evidence of elevated bone mineral density [facility] CONSOLIDATEDDEXA BONE DENSITY 2 SITES 07/15/2023 12:21 PM EST Indication: Screening. Comparison: Accurate comparison is not possible due to differences in equipment. [employer] Clothingigy. Lumbar spine and bilateral hips. Lumbar spine [...] density 1.419 g/sq cm. T score 3.3. [facility] Bernardo De Santiago MD - 07/17/2023 DEXA [...] Some evidence of elevated bone mineral density [facility] InvivodataDXA Bone [Mass/Area] Bone densityOrdered By: Bernardo Squires on 22-73-8988GQQ [employer] Work Phone: dXA Bone [Mass/Area] Bone densityon 07-15-2023 Radiology Study observation (narrative)[facility] [employer] [facility] with Auto Differentialon 67-52-4033Ltlsbxgeu (Bld) [#/Vol]0.05 10*3/uLBON SECOURS MERCY HEALTHBasophils/100 WBC (Bld)0 %0 - 2 %[facility] HEALTHEosinophils (Bld) [#/Vol]0.07 10*3/uLBON SECOURS MERCY HEALTHEosinophils/100 WBC (Bld)1 %1 - 4 % [facility]IAL HOSPITALY HEALTHErythrocyte distribution width (RBC) [Ratio]13.8 %11.8 - 14.4 %[facility] HOSPITALY HEALTHHematocrit (Bld) [Volume fraction]47.2 %High36.3 - 47.1 %[facility] HOSPITALY HEALTHHemoglobin (Bld) [Mass/Vol]15.9 g/mVRucf56.9 - 15.1 g/dLBON [facility] HEALTHImmature granulocytes (Bld) [#/Vol]0.09 10*3/uL [facility] HOSPITALY HEALTHImmature granulocytes/100 WBC (Bld)1 %Torf2IJT [facility] HEALTHInterpretation and review of laboratory resultsAbnormalBON [facility] HEALTHLymphocytes/100 WBC (Bld)16 %Low24 - 43 %[facility] HEALTH Lymphocytes/100 WBC (Bld)1.85 %[facility]OS[facility]ITALH (RBC) [Entitic mass] 28.8 pg25.2 - 33.5 pgBON SECOURS BARBERTON CITIZENS HOSPITALHC (RBC) [Mass/Vol]33.7 g/dL28.4 - 34.8 g/dLBON SECOURS BARBERTON CITIZENS HOSPITALV (RBC) [Entitic vol]85.5 fL82.6 - 102.9 fL [facility] HEALTHMonocytes/100 WBC (Bld)8 %3 - 12 %[facility] HEALTHMonocytes/100 WBC (Bld)0.89 %[facility] HOSPITALY HEALTHNeutrophils/100 WBC (Bld)74 %High36 - 65 %[facility] HOSPITALY HEALTHNucleated RBC/100 WBC (Bld) [Ratio]0.0 %0.0 per 100 WBCBON SECOURS COMMUNITY MEMORIAL HOSPITALY HEALTHPlatelet mean volume (Bld) [Entitic vol]9.0 fL8.1 - 13.5 fLBON SECOURS COMMUNITY MEMORIAL HOSPITALY HEALTHPlatelets (Bld) [#/Vol] 335 10*3/uLBON SUBURB[facility] COMMUNITY [facility]OSPITAL & BRENTWOOD HOSPITALRBC (Bld) [#/Vol]5.52 10*6/uLHigh3.95 - 5.11 m/uLBON SUBURB[facility] COMMUNITY HOS[facility]ITAL & BRENTWOOD HOSPITALSegmented neutrophils/100 WBC (Bld)8.61 %HighRIVERSIDE HEALTH SYSTEMWBC other (Bld) [#/Vol]11.6HighBON SPEARFISH SURGERY CENTERComprehensive Metabolic Panelon 67-41-6255Qhdlxqd [Mass/Vol] 5.1 g/dL3.5 - 5.2 g/dLBON [facility]UR[facility] BRENTWOOD HOSPITALAlbumin/Globulin [Mass ratio]1.6 {ratio}1.0 - 2.5BON [facility] HEALTHALP [Catalytic activity/Vol]74 U/L35 - 104 U/LBON [facility] HEALTHALT [Catalytic activity/Vol]44 U/LHigh5 - 33 U/L [facility] BRENTWOOD HOSPITALAnion gap [Moles/Vol]14 mmol/L9 - 17 mmol/LBON [facility] HEALTHAST [Catalytic activity/Vol]27 U/LNINF - 32 U/LBON [facility] & BRENTWOOD HOSPITALBilirubin [Mass/Vol]1.7 mg/dLHigh0.3 - 1.2 mg/dLBON [facility] Calcium [Mass/Vol]10.5 mg/dLHigh8.6 - 10.4 mg/dLBON [facility]UR[facility]ITAL & BRENTWOOD HOSPITALChloride [Moles/Vol]94 mmol/LLow98 - 107 mmol/LBON [facility] & BRENTWOOD HOSPITALCO2 [Moles/Vol]30 mmol/L20 - 31 mmol/LBON [facility] BRENTWOOD HOSPITALCreatinine [Mass/Vol]0.8 mg/dL0.5 - 0.9 mg/dLBON [facility]UR[facility] & BRENTWOOD HOSPITALGFR/1.73 sq M.predicted MDRD (S/P/Bld) [Vol rate/Area]- PINFBON SUBURBAN COMMUNITY HOSPITAL & BRENTWOOD HOSPITALComment on above: These results are not intended [...] that affects renal tubular secretion. Glucose [Mass/Vol]137 mg/bHSexw92 - 99 mg/dLBON [facility] Interpretation and review of laboratory resultsAbWinchester Medical Center Potassium [Moles/Vol]4.3 mmol/L3.7 - 5.3 mmol/LBON [facility] & BRENTWOOD HOSPITALProtein [Mass/Vol]8.2 g/dL6.4 - 8.3 g/dLBON SUBUR[facility]OS[facility]ITAL & BRENTWOOD HOSPITALSodium [Moles/Vol]138 mmol/L135 - 144 mmol/LBON [facility]ITY [facility]OS[facility]ITAL & BRENTWOOD HOSPITALUrea nitrogen [Mass/Vol]16 mg/dL6 - 20 mg/dLBON [facility]ITAL & BRENTWOOD HOSPITALUrea nitrogen/Creatinine [Mass ratio]20 mg/mg9 - 20BON SPEARFISH SURGERY CENTERLipid Panelon 12-19-2022 Cholesterol [Mass/Vol]115 mg/dLNINF - 200 mg/dLBON [facility] & BRENTWOOD HOSPITALComment on above: Cholesterol Guidelines: <200 Desirable 200-240 Borderline >240 Undesirable Cholesterol in HDL [Mass/Vol]49 mg/dL40 - PINF mg/dLBON [facility] Comment on above: HDL Guidelines: <40 Undesirable 40-59 Borderline >59 Desirable Cholesterol in LDL [Mass/Vol]32 mg/dL0 - 130 mg/dLBON [facility] Comment on above: LDL Guidelines: <100 Desirable 100-129 Near to/above Desirable 130-159 Borderline >159 Undesirable Direct (measured) LDL and calculated LDL are not interchangeable tests. Cholesterol.total/Cholesterol in HDL [Mass ratio]2.3 {ratio}NINF - 5B[facility]ENT[facility]OD HOSPITALInterpretation and review of laboratory resultsAbnoCarilion Roanoke Community HospitalTriglyceride [Mass/Vol]171 mg/dLHighNINF - 150 mg/dLBON [facility] BRENTWOOD HOSPITALComment on above: Triglyceride Guidelines: <150 Desirable 150-199 Borderline 200-499 High >499 Very high Based on AHA Guidelines for fasting triglyceride, March 2012. RIVERSIDE HEALTH SYSTEMMicroalbumin, Uron 15-69-2127Cmygrrc DL <= 20 mg/L (U) [Mass/Vol]764 mg/LHighNINF - 21 mg/LBON [facility] BRENT[facility]OD HOSPITALAlbumin/Creatinine DL <= 20 mg/L (U) [Ratio]178HighNINFRIVERSIDE HEALTH SYSTEMCreatinine (U) [Mass/Vol]428.7 mg/aOAowf39.0 - 217.0 mg/dLB[facility] Interpretation and review of laboratory resultsAbnormSouthern Virginia Regional Medical CenterT4, Freeon 25-07-9035Uvnw T4 [Mass/Vol]1.5 ng/dL0.9 - 1.7 ng/dLBON SPEARFISH SURGERY CENTERTS with Reflexon 77-42-5465Dvuvdrpcykzufj and review of laboratory resultsAbnoStoneSprings Hospital Center Qn6.76 m[IU]/LHighHOSPITAL CORPORATION OF AMERICAVitamin D 25 Hydroxyon 47-31-647099450130-emhkmiyburzrmp D3 [Mass/Vol]59.0 ng/mL 29.9 - PINF ng/mLRIVERSIDE HEALTH SYSTEMComment on above: Reference Range: Vitamin D status Range Deficiency <20 ng/mL Mild Deficiency 20-30 ng/mL Sufficiency 30-100 ng/mL Toxicity >100 ng/mL RIVERSIDE HEALTH SYSTEMXR CHEST (2 VW)Ordered By: Jeanine Whitlock on 48-46-2136Ad acute cardiopulmonary disease.[employer] Work Phone: eXAMINATION: TWO XRAY VIEWS OF THE CHEST 12/06/2020 7:41 pm COMPARISON: July 19, 2017. HISTORY: ORDERING SYSTEM PROVIDED HISTORY: Mild intermittent asthma without complication TECHNOLOGIST PROVIDEDHISTORY: ASTHMA FINDINGS: No lines or tubes. Normal cardiomediastinal silhouette. The lungs are clear without focal consolidation or pleural effusion. No suspicious pulmonary nodules. No pulmonary edema. No pneumothorax. No acute osseous abnormality.[employer] Work Phone: ereid, [facility] Incoming Radiant Results From [email or web address] - 12/08/2020 8:26 PM EDT EXAMINATION: TWO [...] osseous abnormality. IMPRESSION: No acute cardiopulmonary disease. [facility] [employer] Work Phone: [facility] [employer] Work Phone: discharge Summaryon [id number] IP Note OR TranscriptionNormalPremier Health Miami Valley Hospital NorthCBCon 39-65-7250Zmkzvpvlrxy distribution width Auto Ratio (RBC)12.9 %Yjsvjt19.8-14.4Prem[facility] Health [facility] Hospital NorthComment on above:Performed By: #### MARLEN LIPR ####[facility] [address] [place] [address] Erythrocytes (RBC)0.0 per 100 WBCNormal0.0Prem[facility] Health Miami Valley Hospital NorthComment on above:Result Comment: [facility] HospitalMicroPhage [address] [place] [address] Performed By: #### MARLEN LIPR ####[facility] Queknxhigm[address] [place] [address] Erythrocytes (RBC)4.33 10*6/uLNormal3.95-5.11Prem[facility] Hospital NorthComment on above:Performed By: #### TROPJaxon LIPR ####[facility] N[address]dp[address] [place] [address] Hematocrit (HCT)38.1 % Rceync95.3-47.1MCoastal Communities HospitalComment on above:Performed By: #### TROPJaxon LIPR ####[facility] [address] [place] [address] Hemoglobin mass conc (Bld)12.4 g/xSRktsrb65.9-15.1MCoastal Communities HospitalComment on above:Performed By: #### TROPJaxon LIPR ####[address] [place] [phone] pgNormal 25.2-33.5[facility] NorthComment on above:Performed By: #### MARLEN LIPR ####Evelia Mason[address] [place] [address]3934 MCHC mass conc (RBC)32.5 g/xBBmmmrn99.4-34.8[facility] [place] [facility] Comment on above:Performed By: #### MARLEN LIPR ####Evelia Mason[address] [place] [address] [phone] iKIuzrwd40.6-102.9[facility] [place] [facility] NorthComment on above:Performed By: #### MARLEN LIPR ####Evelia Mason[address] [place] [address] Platelet mean volume (PMV)9.7 fLNormal8.1-13.5[facility] [place] [facility] NorthComment on above: Performed By: #### MARLEN LIPKira ####[facility] MasonHmujczklvaun[address] [place] [address] [phone] 10*3/dHKpzljx767-114EruqyPremier Health [facility] Hospital NorthComment on above:Performed By: #### MARLEN LIPR ####[facility] MasonDohmeylonefc23[address] [place] [address]39 WBC (Leukocytes)4.5 10*3/uLNormal 3.5-11.3MCoastal Communities HospitalComment on above:Performed By: #### MARLEN LIPR ####[address] [address] Comp Metabolic Pr/rfx MGon 08-10-1134Yedtthetu molar conc3.5 mmol/LLow3.7-5.3 [facility] NorthComment on above:Performed By: #### MARLEN LIPR ####Evelia Ep[address]zvvpsvemc1636 [place] [address] (cont.)Normal [facility] NorthComment on above:Result Comment: Average GFR for 40-49 years old: 99 mL/min/1.73sq mChronic Kidney Disease: <60 mL/min/1.73sq mKidney failure: <15 mL/min/1.73sq meGFR calculated using average adult body mass. Additional eGFR calculator available at:http://www.EDAN/multiple_crcl_2012.htmKiara Ville [address] [place] [address] Performed By: #### MARELN LIPR ####[facility] Bjdfaexcoujr3417 [place] [phone] aminotransferase (ALT)15 U/LNormal5-33[facility] [place] [facility] NorthComment on above:Performed By: #### MARLEN LIPR ####[facility] Esdfhujospxc[address] [place] [address] Pqakwfk7.9 g/dLNormal3.5-5.2[facility] Comment on above:Performed By: #### MARLEN LIPR ####[facility] [address] [address] Albumin/Globulin Ratio2.1 {ratio}Normal 1.0-2.5[facility] [place] [facility] NorthComment on above:Performed By: #### TROPJaxon LIPR ####Evelia Poxljagxxvfe[address] [place] [address] Alkaline Phos34 U/STmv89-413SqvimPremier Health [facility] Hospital NorthComment on above: Performed By: #### TROPJxaon, LIPR ####[facility] Mygocaahcumf2063 [place] [address] Anion gap12 mmol/LNormal9-17[facility] [place] [facility] Comment on above:Performed By: #### TROPJaxon LIPR ####Evelia Eaxenwtrazpv2648 [place] [address] Aspartate aminotransferase (AST)14 U/L Normal<32[facility] [place] [facility] NorthComment on above:Performed By: #### TROPI, LIPR ####Evelia Lfbuhcvyzqxn2009 [place] [address] Bilirubin Ql (U)1.02 mg/dLNormal0.3-1.2MCoastal Communities HospitalComment on above:Performed By: #### TROPI, LIPR ####Evelia Sbxhtkeltcld3416 [place] [address] Dqtgbxc6.0 mg/dLNormal8.6-10.4[facility] [place] [facility] NorthComment on above:Performed By: #### TROPI, LIPR ####Evelia Ppzdyabxhdrk9050 [place] [address] Vkztqdht32 mmol/LNormal 98-107[facility] [place] [facility] NorthComment on above:Performed By: #### TROPI, LIPR ####Evelia Sovhvqwntqrb2231 [place] [address] UM870 mmol/ELgmsqk30-67YenskPremier Health [place] [facility] Hospital NorthComment on above:Performed By: #### TROPI, LIPR ####Evelia Nqparlqddsxb2994 [place] [address] Actbvoaxjg5.60 mg/dLNormal0.50-0.90[facility] [place] [facility] NorthComment on above:Performed By: #### TROPI, LIPR ####Jocelyny Gcjgipkuuhld6036 [place] [address] eGFR (non-black)mL/min/{1.73_m2}Normal >60[facility] [place] [facility] NorthComment on above:Performed By: #### TROPI, LIPR ####Jocelyny Pjgzuafwugwx4372 [place] [address] Glucose mass conc99 mg/zUGibymb54-92Rckuc [facility] Regional Medical CenterComment on above: Performed By: #### MARLEN LIPR ####Evelia Aperocaeybzf3086 [place] [phone] g/dLLow6.4-8.3[facility] Comment on above:Performed By: #### MARLEN LIPR ####Evelia Lbdfixfptduv[address] [place] [address] [phone] mmol/XIodqpw980-432XtskgPremier Health [place] [facility] Hospital NorthComment on above:Performed By: #### MARLEN LIPR ####Evelia Kydggawcebvp[address] [place] [address] [phone] oiytiwpy35 mg/dL High6-20[facility] [place] [facility] NorthComment on above:Performed By: #### MARLEN LIPR ####Evelia Fpkvndbmhxhk[address] [place] [address] BUN/CRE RatioNOT REPORTEDNormal9-20[facility] [place] [facility] NorthComment on above:Performed By: #### MARLEN LIPR ####Evelia Mason[address] [place] [address] [phone]:NOT REPORTEDNormalPremier Health [place] [facility] Hospital NorthComment on above:Performed By: #### MARLEN LIPR ####Evelia Klwnxggajcxf[address] [place] [address] [phone] 07-21-2017 Magnesium1.9 mg/dLNormal1.6-2.6MercSt. John's Hospital CamarilloComment on above: Result Comment: [facility] HospitalMicroPhage [address] [place] [phone] By: #### MARLEN, LIPR ####Evelia Gntyyohphuwo[address] [place] [address] [phone] of Careon 65-77-0640GMC IP Note OR TranscriptionNormalMercy St. John'S Regional Medical CenterHIM IP Note OR Account Service Representative NormalMercy St. John'S Regional Medical CenterHIM IP Note OR TranscriptionNormalMercy St. John'S Regional Medical CenterProgress Noteon 05-99-7323ZYI IP Note OR Account Service Representative NormalMercy St. John'S Regional Medical CenterHIM IP Note OR TranscriptionNormalMercy St. John'S Regional Medical CenterCARDIAC STRESS TESTon 60-73-3353WUTAZKF STRESS TEST [address] [phone] CARDIAC STRESS TESTPATIENT NAME: AISHWARYA AGUILA : 1965MED REC NO: [id number] ROOM: [address] [place], [place] [address]OUNT NO: [id number] ADMIT DATE: 07/20/2017PROVIDER: Ang CraigARDIOLITE TREADMILL STRESS STUDYDATE OF STUDY: 07/20/2017ORDERING PROVIDER: Mari CejaENCOMPASS [facility] PROVIDER: Jori OrtizeINDICATION: Chest discomfort.CONSENT: The [...] of Nuclear MedicineANG SHELLMID: 07/20/2017 15:47:34 /PGAYTANJob#: [id number] Doc#: UnknownPositive result faxed to the UnitNormal [facility] NorthConsulton 36-44-2069AGX IP Note OR Account Service Representative NormalPremier Health [facility] Hospital NorthHistory and Physicalon 09-04-9831DFB IP Note OR TranscriptionNormalPremier Health [place] [facility] Hospital NorthK (Potassium)on 31-29-3730Hoqqcjmjw molar conc3.9 mmol/LNormal3.7-5.3[facility] John'S Regional Medical CenterComment on above:Result Comment: [facility] [place] [address] Performed By: #### MARLEN LIPR ####[address] [address] Lipid Profileon 81-22-9582Gclmsnleqow931 mg/dLNormal<200[facility] John'S Regional Medical CenterComment on above:Result Comment: Cholesterol Guidelines: <200 Desirable 200-240 Borderline >240 UndesirablePerformed By: #### MARLEN LIPR ####[facility] Bphtzufgvenj[address] [place] [address] Cholesterol to HDL Ratio 3.4 {ratio}Normal<5[facility] [place] [facility] NorthComment on above:Performed By: #### MARLEN LIPR ####[facility] Knebojbcqhcx[address] [place] [address]046 HDL Cgtpjdvtism85 mg/dLNormal>40MerSpecialty Hospital of Southern CaliforniaComment on above:Result Comment: HDL Guidelines: <40 Undesirable 40-59 Borderline >59 DesirablePerformed By: #### MARLEN LIPR ####[facility] [place] [address] LDL Shvxbcqxcin97 mg/dL Normal0-130[facility] [place] [facility] NorthComment on above:Result Comment: LDL Guidelines: <100 Desirable 100-129 Near to/above Desirable 130-159 Borderline >159 UndesirableDirect (measured) LDL and calculated LDL are not interchangeable tests.Performed By: #### TROPI, LIPR ####[address] [address] Zdgeljbmpaoy011 mg/dLHigh<150[facility] [place] [facility] NorthComment on above:Result Comment: Triglyceride Guidelines: <150 Desirable 150-199 Borderline 200-499 High >499 Very high Based on AHA Guidelines for fasting triglyceride, March 2012.[facility] [place] [address] ([phone] By: #### TROPI, LIPR ####[facility] Lxdqukqmilxy[address] [place] [address] Cholesterol in VLDL mass concNOT REPORTEDNormal1-30[facility]'S Regional Medical CenterComment on above: Performed By: #### TROPI, LIPR ####RESAAS [address]azimtmzloqn[address]96 [place] [address] Magnesiumon 95-45-5035Agdqgqcjg9.8 mg/dLNormal1.6-2.6[facility] John'S Regional Medical CenterComment on above:Result Comment: [facility] [address] [place] [address] [phone] By: #### TROPI, LIPR ####[facility] Fuhqewcscmla[address] [place] [address] NM MYOCARDIAL SPECT REST EXERCISE OR RXon 28-20-5885QP MYOCARDIAL SPECT REST EXERCISE OR RX EXAMINATION:MYOCARDIAL [...] from Noninvasive RiskStratification criteria from Vergara et. Al,ACC/AATS/AHA/ASE/ASNC/SCAI/SCCT/EQH7886 Appropriate Use Criteria ForCoronary Revascularization in Patients With Stable Ischemic Heart DiseaseMAHNOMEN HEALTH CENTER Volume 69, Issue 17, October 2016High risk (>3% annual or SD)1. Severe resting LV dy sfunction (LVEF >35%) [...] regadenoson)Intermediate risk (1% to 3% annual or SD)1. Mild/moderate resting LV dysfunction (LVEF 35% to [...] coronarybed.Low Risk (Less than 1% annual or SD)1. Normal or small myocardial perfusion defect at rest or with stressencumbering less than 5% of the myocardium.Interpreted by:JENNI Montañoigned by:Giovanny Lan MD07/20/17inal resultNormalPremier Health [place] [facility] Hospital NorthPlan of Careon 76-67-4960WAU IP Note OR Account Service Representative NormalPremier Health [place] [facility] Hospital NorthHI IP Note OR TranscriptionNormalPrem[facility] [place] [facility] NorthProcedureon 70-01-8363AXP IP Note OR Account Service Representative NormalPrem[facility] Health [place] [facility] NorthProgress Noteon 46-97-1119OLU IP Note OR TranscriptionNormalR[facility]ide [facility] IP Note OR Account Service Representative NormalPrem[facility] Health [place] [facility] Hospital NorthTSH w/reflex to FT4on 93-05-9487Jufkrcj stimulating hormone (TSH)0.22 m[IU]/LLow0.30-5.00[facility] [place] [facility] NorthComment on above:Result Comment: [facility] [address] [place] [address] [phone] By: #### TSHX, FT4 ####[facility] [place] [address] [phone], Freeon 59-14-2549Fmozeymsp, Free1.52 ng/dLNormal0.93-1.70MerSpecialty Hospital of Southern CaliforniaComment on above:Result Comment: [facility] [address] [place] [address] Performed By: #### TSHX, FT4 ####[facility] Orivxdierprh[address] [place] [address] [phone] 07-20-2017 Troponin I.cardiac mass concNormalPremier Health [place] [facility] Hospital NorthComment on above:Result Comment: Reference Range: <0.03 Within reference range. 0.03-0.09 Possible myocardial damage.Repeat at appropriate intervals to rule out chronic elevation. >= 0.10 Indicative of myocardial damage.Patients with high levels of Biotin oral intake (i.e >5mg/day) may have falsely decreased Troponin T levels. Samples collected within 8 hours of biotin intake may require additional inform ation for diagnosis.[facility] [address] [place], [place] [id number] ([phone] By: #### TROPI, LIPR ####[facility] [place] [address] Troponin T.cardiac mass concug/LNormal<0.03MerSpecialty Hospital of Southern CaliforniaComment on above:Result Comment: Troponin T results cannot be compared to Troponin-I results.Performed By: #### TROPI, LIPR ####[facility] [place], [place] [address] Vital Signs Date TimeVital SignValuePerforming JmbbqyeswQxowhylr16-08-7834 16:00-0500 Diastolic blood cttgqicw61 mm[Hg]Jackson Wiggins MD Work Phone: bon [employer] [facility] HospitalHxsnko69-72-1118 16:00-0500Heart rate73 /Carolina Wiggins MD Work Phone: bon [employer] [facility] HospitalUuufwr49-73-2297 16:00-0500 Respiratory rate21 /Carolina Wiggins MD Work Phone: bon [facility] HospitalTizra [facility] HospitalIxpawf75-23-3833 16:00-6499McJ4% (BldA) [Mass fraction]91 %Jackson Wiggins MD Work Phone: bon [employer] [facility] HospitalLyphde85-34-5341 16:00-0500Systolic blood xkvbuuyp848 mm[Hg]Jackson Wiggins MD Work Phone: bon [employer] [facility] HospitalXtnsaq32-34-8263 14:00-0500Body cxpattgiiqy33.69 [degF]Jackson Wiggins MD Work Phone: bon [employer] [facility] HospitalDunvqn84-90-7936 12:20-0500Body ieivpf489 Jose Wiggins MD Work Phone: [facility]11-06-2025 12:20-0500Body mass index (BMI) [Ratio]38.97 kg/s4GbjlkaJackson Wiggins MD Work Phone: [facility]11-06-2025 12:20-0500Body kptrip99.79 kgStmary Wiggins MD Work Phone: [facility]10-21-2025 09:05-0400Body kvaqxk853 cmGerri Rine PERSONAL INSURANCE ADVISOR Work Phone: [phone] HospitalFmepeljepg17-59-8141 09:05-0400Body mass index (BMI) [Ratio]40.18 kg/t4Fedkq Rine PERSONAL INSURANCE ADVISOR Work Phone: [phone] [place], [place] [address]Qvqtyajuen54-72-5596 09:05-0400Body temperature 98.29 [degF]Jeanine Rine PERSONAL INSURANCE ADVISOR Work Phone: [phone] [place], [place] [address]Qkuslxkpvu09-63-0202 09:05-0400Body qxydaj092.88 kgGerri Rine PERSONAL INSURANCE ADVISOR Work Phone: 1([phone] [place], [place] [address]Sqbuawisqd37-81-8223 09:05-0400Diastolic blood nwahrxep66 mm[Hg]Jeanine Rine PERSONAL INSURANCE ADVISOR Work Phone: [phone] [place], [place] [address]Mdwvwhwnko08-72-7457 09:05-0400Heart rate63 /min Jeanine Rine PERSONAL INSURANCE ADVISOR Work Phone: [phone] HospitalZbwwuidvhg87-57-3456 09:05-0400Respiratory rate18 /minGerri Rine PERSONAL INSURANCE ADVISOR Work Phone: 1(564)513-[address] [place], [place] [address]Yptbvdkgbg43-03-1042 09:05-6056CnI8% (BldA) [Mass fraction]95 %Jeanine Rine PERSONAL INSURANCE ADVISOR Work Phone: [phone] HospitalQlzoolghqk11-13-9307 09:05-0400Systolic blood mm[Hg]Jeanine Rine PERSONAL INSURANCE ADVISOR Work Phone: [facility] HospitalXffefegmsr81-68-4858 11:40-0400Body cm Jamie Schwartz MD Work Phone: [facility] HospitalXqunsqquit18-91-1146 11:40-0400Body mass index (BMI) [Ratio]39.5 kg/p9WrvrnJamie Schwartz MD Work Phone: [address] [place], [place] [address]Egnhykwanx78-09-0578 11:40-0400Body vkadqz662.15 kgJamie Schwartz MD Work Phone: [address] [place], [place] [address]Unkfceuyqo95-77-4456 11:40-0400Diastolic blood mfvxrzaz57 mm[Hg]Jamie Schwartz MD Work Phone: [phone] [place] [address]-30-2025 11:40-0400Heart rate74 /min Jamie Schwartz MD Work Phone: [phone] [place], [place] [address]Xdhfndsbdl17-11-0681 11:40-0400Respiratory rate16 /minJamie Schwartz MD Work Phone: [address] [place], [place] [address]Ildleloqlf79-77-3570 11:40-9238SeN4% (BldA) [Mass fraction]94 %Jamie Schwartz MD Work Phone: [phone] [place] [address]-30-2025 11:40-0400Systolic blood mm[Hg]Jamie Schwartz MD Work Phone: [address] [place], [place] [address]Adwuislgop24-59-3054 14:31-0400Body cm Jeanine Whitlock PERSONAL INSURANCE ADVISOR Work Phone: [place] [address]Hftlukmhrl71-00-5656 14:31-0400Body mass index (BMI) [Ratio]39.29 kg/w7Tdnmj Joselinee PERSONAL INSURANCE ADVISOR Work Phone: [phone] [address]Pmzpuyqbpw94-83-3280 14:31-0400Body temperature 99.1 [degF]Jeanine Rine PERSONAL INSURANCE ADVISOR Work Phone: [phone] [address]Cuhuwkdmny38-21-7688 14:31-0400Body oxdhtt412.61 kgGerri Rine PERSONAL INSURANCE ADVISOR Work Phone: [phone] [address]Unjvocqdyz66-90-8348 14:31-0400Diastolic blood mm[Hg]Jeanine Joselinee PERSONAL INSURANCE ADVISOR Work Phone: [phone] [address]Dlxhxstqwi71-43-6341 14:31-0400Heart rate73 /min Jeanine Rine PERSONAL INSURANCE ADVISOR Work Phone: [phone] [address]-16-2025 14:31-0400Respiratory rate18 /minGerri Rine PERSONAL INSURANCE ADVISOR Work Phone: 1(724)[address] [place] [address]-16-2025 14:31-4231OmI4% (BldA) [Mass fraction]94 %Jeanine Rine PERSONAL INSURANCE ADVISOR Work Phone: 1(532)[address] [place] [address]-16-2025 14:31-0400Systolic blood fcvowzdn170 mm[Hg]Jeanine Rine PERSONAL INSURANCE ADVISOR Work Phone: 1(529)[address] [place] [address]-14-2025 09:09-0400Body onuiut189 cm Jeanine Rine PERSONAL INSURANCE ADVISOR Work Phone: 1(168)[address] [place] [address]-14-2025 09:09-0400Body mass index (BMI) [Ratio]39.11 kg/o8Nulps Rine PERSONAL INSURANCE ADVISOR Work Phone: 1(315)[address] [place] [address]-14-2025 09:09-0400Body temperature 98.29 [degF]Jeanine Rine PERSONAL INSURANCE ADVISOR Work Phone: 1(257)[address] [place] [address]-14-2025 09:09-0400Body doyiuc040.15 kgGerri Rine PERSONAL INSURANCE ADVISOR Work Phone: 1(668)[address] [place] [address]-14-2025 09:09-0400Diastolic blood cnlroykr59 mm[Hg]Jeanine Rine PERSONAL INSURANCE ADVISOR Work Phone: 1(663)[address] [place] [address]-14-2025 09:09-0400Heart rate76 /min Jeanine Rine PERSONAL INSURANCE ADVISOR Work Phone: 1(456)[address] [place] [address]-14-2025 09:09-0400Respiratory rate18 /minGerri Rine PERSONAL INSURANCE ADVISOR Work Phone: 1(477)[address] [place], [place] [address]14[address]25 09:09-3706DrA4% (BldA) [Mass fraction]94 %Jeanine Rine PERSONAL INSURANCE ADVISOR Work Phone: 1(580)[facility] Lam StreetVpajckccmo65-72-2995 09:09-0400Systolic blood vmgonupw421 mm[Hg]Jeanine Rine PERSONAL INSURANCE ADVISOR Work Phone: 1(937)778-02[facility] HospitalEtrnnabwnc76-44-8089 09:10-0500Body cm Osman Fruth PERSONAL INSURANCE ADVISOR Work Phone: [phone] HospitalEjhcutoarg68-06-2392 09:10-0500Body mass index (BMI) [Ratio]38.44 kg/k9Gvsizu Fruth PERSONAL INSURANCE ADVISOR Work Phone: [phone] HospitalNwcgjqowrk41-51-7844 09:10-0500Body temperature 95.2 [degF]Osman Fruth PERSONAL INSURANCE ADVISOR Work Phone: [phone] [place], [place] [address]Xumbqzjwas83-07-2893 09:10-0500Body bchhle66.43 kgRachel Fruth PERSONAL INSURANCE ADVISOR Work Phone: 1(849)[facility] [place], [place] [address]Suawzyublr37-86-0016 09:10-0500Diastolic blood mm[Hg]Osman Fruth PERSONAL INSURANCE ADVISOR Work Phone: 1(191)[facility] [place], [place] [address]Aocngbvgvx25-10-3575 09:10-0500Heart rate76 /min Osman Fruth PERSONAL INSURANCE ADVISOR Work Phone: 1(981)[facility] [place], [place] [address]Amtwvibbmh23-30-7990 09:10-2311GuX9% (BldA) [Mass fraction]92 %Osman Fruth PERSONAL INSURANCE ADVISOR Work Phone: 1(018)[facility]69[facility] HospitalIpyctkdpze36-65-2726 09:10-0500Systolic blood stufujhj791 mm[Hg]Osman Fruth PERSONAL INSURANCE ADVISOR Work Phone: 1(892)[facility]49[facility] HospitalAvqhieucxx26-89-6371 09:51-0500Body jwlotc779 cm Jeanine Whitlock PERSONAL INSURANCE ADVISOR Work Phone: 1(157)[facility]62[facility] HospitalMbuawoslja20-78-2054 09:51-0500Body mass index (BMI) [Ratio]39.93 kg/l0Mkszk Rine PERSONAL INSURANCE ADVISOR Work Phone: 1(203)798-[address] [place], [place] [address]Rmtwpjbklp49-08-5832 09:51-0500Body temperature 98.2 [degF]Jeanine Rine PERSONAL INSURANCE ADVISOR Work Phone: [phone] HospitalOqdogqcvoj42-77-5663 09:51-0500Body .24 kgGerri Rine PERSONAL INSURANCE ADVISOR Work Phone: 1(618)[facility] [place], [place] [address]Dudclznted85-88-1675 09:51-0500Diastolic blood aqauozsl55 mm[Hg]Jeanine Rine PERSONAL INSURANCE ADVISOR Work Phone: 1(263)[address] [place], [place] [address]01-06-2025 09:51-0500Heart rate70 /min Jeanine Rine PERSONAL INSURANCE ADVISOR Work Phone: 1(333)[address] [place], [place] [address]65[address]01-06-2025 09:51-0500Respiratory rate18 /minGerri Rine PERSONAL INSURANCE ADVISOR Work Phone: 1(236)[address] [place], [place] [address]01-06-2025 09:51-7474LpM4% (BldA) [Mass fraction]93 %Jeanine Rine PERSONAL INSURANCE ADVISOR Work Phone: 1(361)[address] [place], [place] [address]01-06-2025 09:51-0500Systolic blood mvefyyoh429 mm[Hg]Jeanine Rine PERSONAL INSURANCE ADVISOR Work Phone: 1(526)[address] [place] [address]-04-2024 09:16-0400Body euvijn393 cm Jeanine Rine PERSONAL INSURANCE ADVISOR Work Phone: 1(194)[address] [place], [place] [address]10-04-2024 09:16-0400Body mass index (BMI) [Ratio]38.9 kg/e7Irqjm Rine PERSONAL INSURANCE ADVISOR Work Phone: 1(661)[address] [place] [address]-04-2024 09:16-0400Body temperature 98.01 [degF]Jeanine Rine PERSONAL INSURANCE ADVISOR Work Phone: 1(660)[address] [place] [address]-04-2024 09:16-0400Body jgxyyc23.61 kgGerri Rine PERSONAL INSURANCE ADVISOR Work Phone: 1(767)[address] [place] [address]-04-2024 09:16-0400Diastolic blood mgoebikx20 mm[Hg]Jeanine Rine PERSONAL INSURANCE ADVISOR Work Phone: 1(174)[address] [place] [address]-04-2024 09:16-0400Heart rate71 /min Jeanine Rine PERSONAL INSURANCE ADVISOR Work Phone: 1(738)[address] [place] [address]-04-2024 09:16-0400Respiratory rate18 /minGerri Rine PERSONAL INSURANCE ADVISOR Work Phone: 1(058)[facility] [place] [address]-04-2024 09:16-4686DoL7% (BldA) [Mass fraction]95 %Jeanine Rine PERSONAL INSURANCE ADVISOR Work Phone: 1(325)536-94[facility] HospitalUlfqcrscbb32-57-8043 09:16-0400Systolic blood oyaorzwq452 mm[Hg]Jeanine Rine PERSONAL INSURANCE ADVISOR Work Phone: 1(868)[address] [place], [place] [address]654[address]-21-2024 15:21-0400Body drzzly167 cm Jeanine Rine PERSONAL INSURANCE ADVISOR Work Phone: [phone]02[place] [address]Cqhyatlurh04-59-2137 15:21-0400Body mass index (BMI) [Ratio]38.09 kg/r3Cfvrx Rine PERSONAL INSURANCE ADVISOR Work Phone: 1(038)[address] [place] [address]-21-2024 15:21-0400Body temperature 98.4 [degF]Jeanine Rine PERSONAL INSURANCE ADVISOR Work Phone: 1(962)[address] [place], [place] 7654[address]-21-2024 15:21-0400Body .52 kgGerri Rine PERSONAL INSURANCE ADVISOR Work Phone: 1(304)[address]08-21-2024 15:21-0400Diastolic blood hwvljyrk53 mm[Hg]Jeanine Rine PERSONAL INSURANCE ADVISOR Work Phone: 1(243)[address] [place], [place] 7654408-21-2024 15:21-0400Heart rate84 /min Jeanine Rine PERSONAL INSURANCE ADVISOR Work Phone: 1(239)[address] [place] [address]-21-2024 15:21-0400Respiratory rate18 /minGerri Rine PERSONAL INSURANCE ADVISOR Work Phone: 1(907)945-93[facility] HospitalUehbxtmsbf34-46-5769 15:21-3143VmF4% (BldA) [Mass fraction]95 %Jeanine Rine PERSONAL INSURANCE ADVISOR Work Phone: [phone])113[place] [address]-21-2024 15:21-0400Systolic blood atrkkyaj924 mm[Hg]Jeanine Rine PERSONAL INSURANCE ADVISOR Work Phone: [phone] Healthcare Encounters Encounter DateEncounter TypeCare ProviderFacilityStart: 24-07-4879mycnudmezm Jeanine Whitlock CNPFacility:[facility] CenterStart: 04-12-2025 End: 58-37-3251Tynxkpazl Result EncounterGerri L Chinyere PERSONAL INSURANCE ADVISOR Work Phone: [phone] External Department UnsolicitedStart: 04-12-2025 End: 73-47-9323Qatkmjcei Result EncounterGerri L Joselinee PERSONAL INSURANCE ADVISOR Work Phone: noms External Department UnsolicitedStart: 04-12-2025 ambulatoryGERRI L [facility]Start: 04-08-2025 End: 27-40-1383uzxeopxhhkXMFKJ L RINMorenita [place] HospitalStart: 04-08-2025 End: 00-73-2760Irxgoylvmx hospital visit by Michelle Wiggins MD Work Phone: [facility] Cardiac Cath/IR LabComment on above:Abnormal cardiovascular stress testStart: 04-07-2025 End: 77-24-5221Qngtvv flowsheetTyler Alt RNNO [place] Patient EducationStart: 04-07-2025 End: 13-89-6349Hqrhjnxvcq and management of inpatientTyler Alt RNNOMS [place] Patient EducationStart: 04-07-2025 End: 03-93-4312kplzbtrefdUNQBQ ALTNot AvailableStart: 04-06-2025 End: 96-44-5770DsocipPpvlo L Joselinee PERSONAL INSURANCE ADVISOR Work Phone: noms [facility] MedicineComment on above:Type 2 diabetes mellitus without complication, without long-term current use of insulin (HCC)Start: 04-05-2025 End: 35-23-4160tcxyszlzdjYFBFAO Liban FRANCISNot AvailableStart: 04-05-2025 End: 59-59-2624Ldygwh outpatient visit 15 minutesAlison Liban Francis PA Work Phone: noms [place] DermatologyComment on above:Seborrheic keratosis (Primary Dx); Melanocytic nevus of trunk; [place]o angioma; Inflamed seborrheic keratosisStart: 03-23-2025 End: 24-39-5067Rlbvre flowsheetGerri L Rine PERSONAL INSURANCE ADVISOR Work Phone: noms [facility] MedicineStart: 03-23-2025 End: 24-37-0055Eujivo flowsheetGerri L Rine PERSONAL INSURANCE ADVISOR Work Phone: noms [facility] MedicineStart: 03-23-2025 End: 46-49-9713Vdorolo encounter statusJeanine Whitlock PERSONAL INSURANCE ADVISOR Work Phone: [facility] Work Phone: Start: 03-23-2025 End: 87-60-1210Nqckyfxm preventive med est patient 40-64yrsGclarence Whitlock PERSONAL INSURANCE ADVISOR Work Phone: noDorothea Dix HospitalComment on above:Wellness examination (Primary Dx); Type 2 [...] allergies; Immunization due; Abnormal swallowingStart: 03-23-2025 End: 70-23-8950barbuksmejPBCYB L RINENot AvailableStart: 03-17-2025 End: 77-79-7311Fuomql flowsheetTyler Alt RNANDREABayhealth Hospital, Sussex Campusfin Patient EducationStart: 03-17-2025 End: 20-84-3791Lgpfvwkfnl and management of inpatientTyler Alt RNNOMS [place] Patient EducationStart: 03-17-2025 End: 74-94-5347lgpmprffccXTESB ALTNot AvailableStart: 03-16-2025 End: 81-01-3891QcbqncGndyx L Rine PERSONAL INSURANCE ADVISOR Work Phone: [facility] HospitalComment on above:Type 2 diabetes mellitus with hyperglycemia, with long-term current use of insulin (HCC)Start: 03-15-2025 End: 52-86-1649wweeltkgynGQWEB Liban ORTIZEMenancyy [place] HospitalStart: 03-15-2025 End: 07-63-8198Tuvpkkxsrr hospital visit by [facility] Nuclear MedicineComment on above:ArrivedStart: 03-12-2025 End: 82-32-4509iaktkywsgzHFGVI L Ilanay [place] HospitalStart: 03-12-2025 End: 90-48-0189Mjmnkhfpta hospital visit by [facility] Nuclear MedicineComment on above:ArrivedAbnormal EKGStart: 03-08-2025 End: 77-26-8190HwvfogDgloz L Joselinee PERSONAL INSURANCE ADVISOR Work Phone: noms [facility] MedicineComment on above:Type 2 diabetes mellitus without complication, without long-term current use of insulin (HCC)Start: 03-03-2025 End: 77-15-1950vxvdgoojxpMFVSU L Ilanay [place] HospitalStart: 03-02-2025 End: 34-48-6132Etfabn outpatient new 45 Easton Schwartz MD Work Phone: noms [facility] EndocrinologyComment on above:Type 2 diabetes mellitus with hyperglycemia, without long-term current use of insulin (HCC) (Primary Dx); Primary hypertension ; Vitamin D deficiency; Acquired hypothyroidism ; Encounter for dietary consultation; Class 2 severe obesity due to excess calories with serious comorbidity and body mass index (BMI) of39.0 to 39.9 in adult ([facility]-HCC)Start: 03-02-2025 End: 09-13-9358gtiitxidscJUJDBAbril Hua AvailableStart: 02-19-2025 End: 45-66-4713Bbprugwoi encounterGerri L Rine PERSONAL INSURANCE ADVISOR Work Phone: noms [facility] MedicineStart: 02-17-2025 End: 93-79-3920Uvpzjizzx encounterGerri L Rine PERSONAL INSURANCE ADVISOR Work Phone: noms [place] [facility] MedicineComment on above:wrong pharmacyStart: 02-16-2025 End: 64-16-4861Akjpnn outpatient visit 25 minutesGerri Liban Ortize PERSONAL INSURANCE ADVISOR Work Phone: noms [place] [facility] MedicineComment on above:Type 2 diabetes mellitus with hyperglycemia, with long-term current use of insulin (HCC) (Primary Dx); BMI 39.0-39.9,adult; Mild intermittent asthma without complication (HCC); Acute upper respiratory infection; Type 2 diabetes mellitus without complication, without long-term current use of insulin (HCC)Start: 02-16-2025 End: 61-81-9365fhnfjpwsueTPBRN L RINENot AvailableStart: 02-16-2025 End: 51-70-1419Vkgkpl flowsheetGerri L Rine PERSONAL INSURANCE ADVISOR Work Phone: noms [place] [facility] MedicineStart: 02-16-2025 End: 93-41-2804Pxhzxa flowsheetGerri L Rine PERSONAL INSURANCE ADVISOR Work Phone: NOZZ [place] [facility] MedicineStart: 01-22-2025 End: 33-63-9864Cvmzjwyls encounterGerri L Rine PERSONAL INSURANCE ADVISOR Work Phone: noms [facility] MedicineStart: 01-10-2025 End: 24-10-5274FjgooiIicghe E Fruth PERSONAL INSURANCE ADVISOR Work Phone: noms [facility] MedicineComment on above:Type 2 diabetes mellitus without complication, without long-term current use of insulin ([facility])Start: 12-31-2024 End: 16-40-8932Lddoadobu encounterCharlotte Caruso LPN Other Phone: noms [facility] MedicineComment on above:Med RefillStart: 12-14-2024 End: 75-93-0009Hyxjogizu encounterGerri L Rine PERSONAL INSURANCE ADVISOR Work Phone: NOAO TSR FMStart: 11-29-2024 End: 58-71-6513IocekiNscxv L Rine PERSONAL INSURANCE ADVISOR Work Phone: NOMS TSR FMComment on above:Acquired hypothyroidism Start: 11-22-2024 End: 92-94-4341GswvtaApftw L Rine PERSONAL INSURANCE ADVISOR Work Phone: NOMS TSR FMComment on above:Type 2 diabetes mellitus without complication, without long-term current use of insulin (HCC)Start: 11-17-2024 End: 03-23-7426QsgdahChjaw L Rine PERSONAL INSURANCE ADVISOR Work Phone: NOWQ TSR FMComment on above:Type 2 diabetes mellitus with hyperglycemia, with long-term current use of insulin ([facility])Start: 11-13-2024 End: 54-70-4049Pjmoqbjea encounterJeanine Whitlock PERSONAL INSURANCE ADVISOR Work Phone: noms TSR FMComment on above:continuous glucose monitor Start: 10-14-2024 End: 36-09-0380NaxriwNolwb L Rine PERSONAL INSURANCE ADVISOR Work Phone: noms TSR FMComment on above:Type 2 diabetes mellitus without complication, without long-term current use of insulinStart: 09-14-2024 End: 99-26-6821Ngnzwn flowsheetJeanine Ortize PERSONAL INSURANCE ADVISOR Work Phone: noms TSR FMStart: 09-14-2024 End: 42-23-7192Crbkib flowsheetGerri Liban Ortize PERSONAL INSURANCE ADVISOR Work Phone: noms TSR FMStart: 09-14-2024 End: 85-43-4945Uqkyjd outpatient visit 25 minutesJeanine Whitlock PERSONAL INSURANCE ADVISOR Work Phone: noms TSR FMComment on above:Type 2 diabetes mellitus without complication, without long-term current use of insulin (Primary Dx); Primary hypertension ([facility]); BMI 39.0-39.9,adult; Dysuria; Wellness examination; Screening for deficiency anemia; Abnormal thyroid screen (blood); Screening, lipid; Vitamin D deficiencyStart: 09-14-2024 End: 32-63-9067Widpxna encounter statusJeanine Whitlock PERSONAL INSURANCE ADVISOR Work Phone: noms HealthcareStart: 09-14-2024 End: 48-97-1392qibcyuummtMWDVZ L RINENot AvailableStart: 08-26-2024 End: 90-84-8234SbokdsDaoawag Chapman LPN Other Phone: noms TSR FMComment on above:Type 2 diabetes mellitus without complication, without long-term current use of insulin ([facility])Start: 08-04-2024 End: 77-19-0945clctwcgwgnJFJYO L RINEMercsd CortesMossville HospitalStart: 08-04-2024 End: 12-63-8651Acmkzbivco hospital visit by Chio Whitlock APRN - PERSONAL INSURANCE ADVISOR Work Phone: [facility] LABComment on above:HGSIL on cytologic smear of cervixStart: 07-10-2024 End: 71-44-6428Klvzzd flowsheetRachel E Fruth PERSONAL INSURANCE ADVISOR Work Phone: NOMS TSR FMStart: 07-10-2024 End: 71-05-7181Ridmfn flowsheetRachel E Fruth PERSONAL INSURANCE ADVISOR Work Phone: NOMS TSR FMStart: 07-10-2024 End: 38-13-3963wodpkodgrnILSLCN E FRUTHNot AvailableStart: 07-10-2024 End: 01-44-8005Rrnaxc outpatient visit 15 minutesRachel E Fruth PERSONAL INSURANCE ADVISOR Work Phone: NORE TSR FMComment on above:Acute non-recurrent maxillary sinusitis (Primary Dx)Start: 06-24-2024 End: 39-67-5897wojcnqwfxeCgdve Lynn Rine CNPFacility:[facility] Hospitaltart: 06-19-2024 End: 67-79-8845rzqlykdjixEZMNIS W HEDGESMercy [place] HospitalStart: 06-19-2024 Encounter for gynecological examination (general) (routine) without abnormal findingsJEANINE Mims [place] HospitalStart: 06-19-2024 End: 98-93-5224Xbeybwm encounter procedureJeanine Whitlock APRN - PERSONAL INSURANCE ADVISOR Work Phone: [facility] HealthStart: 06-19-2024 End: 77-10-1591Dsznhoydnr hospital visit by physicianJeanine Whitlock APRN - PERSONAL INSURANCE ADVISOR Work Phone: mthz LaboratoryComment on above:STD exposure; Women's annual routine gynecological examinationStart: 06-16-2024 End: 47-31-2519Bqvbjypdu encounterJeanine Whitlock PERSONAL INSURANCE ADVISOR Work Phone: NOTM TSR FMComment on above:Referral; Brenda ResultsStart: 06-12-2024 End: 68-91-2086amsvvxdvveECRLX L RINENot AvailableStart: 06-09-2024 End: 33-40-0447LwpexfFanhio Amrando Gilmore PERSONAL INSURANCE ADVISOR Work Phone: noms TSR FMComment on above:Acquired hypothyroidism (CMS/HCC)Degenerative cervical disc; Essential hypertension (CMS/HCC); Type 2 diabetes mellitus without complication, without long-term current use of insulin (CMS/HCC)Start: 06-08-2024 End: 55-99-4622Nqtjgb flowsheetGerri L Rine PERSONAL INSURANCE ADVISOR Work Phone: noms TSR FMStart: 06-08-2024 End: 36-89-5613Narzgf flowsheetGerri L Rine PERSONAL INSURANCE ADVISOR Work Phone: NORB TSR FMStart: 06-08-2024 End: 58-74-8275cxwoptexzyXPBSA L RINENot AvailableStart: 06-08-2024 End: 33-45-8387Zqytby outpatient visit 15 minutesGerri L Rine PERSONAL INSURANCE ADVISOR Work Phone: NOHJ TSR FMComment on above:Type 2 diabetes mellitus without complication, without long-term current use of insulin (CMS/HCC) (P rimary Dx); Visit for screening mammogram; Morbid (severe) obesity due to excess calories (CMS/HCC)Start: 06-07-2024 End: 82-39-8928UpzwjwZasic L Rine PERSONAL INSURANCE ADVISOR Work Phone: NOMS TSR FMComment on above:Type 2 diabetes mellitus without complication, without long-term current use of insulin (CMS/HCC) (P rimary Dx)Start: 05-05-2024 End: 80-88-4264LagswoWpron L Rine PERSONAL INSURANCE ADVISOR Work Phone: NOMS TSR FMComment on above:Type 2 diabetes mellitus without complication, without long-term current use of insulin (CMS/HCC) (P rimary Dx)Start: 05-04-2024 End: 03-62-3189MuhjocDangg L Rine PERSONAL INSURANCE ADVISOR Work Phone: noMS TSR FMComment on above:Type 2 diabetes mellitus without complication, without long-term current use of insulin (CMS/[facility]) (P rimary Dx)Start: 05-03-2024 End: 35-40-3927Atyzuhrnb encounterGerri L Rine PERSONAL INSURANCE ADVISOR Work Phone: NOMS TSR FMStart: 04-30-2024 End: 74-40-2808OrrpfaLpovt L Rine PERSONAL INSURANCE ADVISOR Work Phone: NOMS TSR FMComment on above:Type 2 diabetes mellitus with hyperglycemia, with long-term current use of insulin ([facility])Start: 04-03-2024 End: 61-90-6670Ogxhgd flowsheetAlison L Skylar PA Work Phone: NOMS TSR DERMStart: 04-03-2024 End: 74-75-7535Exnhzu flowsheetAlison L Skylar PA Work Phone: NOMS TSR DERMStart: 04-03-2024 End: 94-36-2169Aglpag outpatient visit 15 minutesAlison Liban Francis PA Work Phone: NOMS TSR DERMComment on above:Seborrheic keratosis (Primary Dx); Melanocytic nevus of trunk; Inflamed seborrheic keratosis; Surgery, electiveStart: 03-27-2024 End: 98-91-1481CcxkqbWlxzwj Feucht MANOMS TSR FMComment on above:Type 2 diabetes mellitus without complication, without long-term current use of insulin ([facility])Start: 03-25-2024 End: 37-96-6263OagqxmZmeyo L Rine PERSONAL INSURANCE ADVISOR Work Phone: NOMS TSR FMComment on above:Environmental and seasonal allergies; Pure hypercholesterolemia ([facility])Start: 03-10-2024 End: 15-85-8799Abvfjyytg encounterGerri L Rine PERSONAL INSURANCE ADVISOR Work Phone: NOMS TSR FMComment on above:update on dexcom and blood sugars; New Medication orderedStart: 03-06-2024 End: 00-36-0970Zykrwk flowsheetGerri L Rine PERSONAL INSURANCE ADVISOR Work Phone: NOMS TSR FMStart: 03-06-2024 End: 70-71-7965Rafdnq flowsBrianna Whitlock PERSONAL INSURANCE ADVISOR Work Phone: noms TSR FMStart: 03-06-2024 End: 91-16-3368Nvxqisu encounter statusJeanine Whitlock PERSONAL INSURANCE ADVISOR Work Phone: [facility] Work Phone: Start: 03-06-2024 End: 87-58-9244Guqlcufc preventive med est patient 40-64yrsGerri Liban Whitlock PERSONAL INSURANCE ADVISOR Work Phone: noms TSR FMComment on above:Type [...] and seasonal allergies; BMI 38.0-38.9,adultStart: 02-28-2024 End: 66-31-3436Esjupwxzh encounterAlyssa Feucht MANOMS TSR FMComment on above: Vaginitis/Bacterial VaginosisStart: 01-22-2024 End: 79-20-9913Kasxtr outpatient visit 25 minutesGerdenise Whitlock PERSONAL INSURANCE ADVISOR Work Phone: noms TSR FMComment on above:Other specified hypotension (Primary Dx); Type 2 diabetes mellitus without complication, without long-term current use of insulin (CMS/HCC)Start: 01-22-2024 End: 79-89-7107Izhvcy flowsBrianna Whitlock PERSONAL INSURANCE ADVISOR Work Phone: noms TSR FMStart: 01-22-2024 End: 30-40-0450Ikcekk flowsheetJeanine Whitlock PERSONAL INSURANCE ADVISOR Work Phone: NOMS TSR FMStart: 07-17-2023 End: 83-74-4112Pynwrmvfv Result EncounterGeneric External Data ProviderNOMS External Department UnsolicitedStart: 07-17-2023 End: 28-54-6987Siciimrgl Result EncounterGeneric External Data ProviderNOMS External Department UnsolicitedStart: 07-15-2023 End: 44-50-8948tonimwfkntBRBKM L RINEMercy [facility]istique HospitalStart: 07-15-2023 End: 50-78-6312Knzlwlravb hospital visit by physicianqueenie Dexa [facility] Dexa ScanComment on above:Age-related osteoporosis without current pathological fractureStart: 12-19-2022 End: 16-07-9492Sowobsyrfa hospital visit by Chio Whitlock Work Phone: MTHZ LaboratoryStart: 12-06-2020 End: 32-14-5571Zeecdzzmuh hospital visit by physicianNeponsit [facility] [address] [place] [address] RadiologyComment on above:Mild intermittent asthma without complicationStart: 07-20-2017 End: 92-13-9640Amxzgkacdy and management of inpatientJEANINE Mims [facility] Procedures DateProcedureProcedure DetailPerforming ClinicianStart: 46-21-1423PI UGAlistair Whitlock PERSONAL INSURANCE ADVISOR Work Phone: Start: 66-43-2282Oymhtdimifsa coronary intervention Jose Chávez DO Work Phone: Start: 35-70-0824GKTIYOIGFMH SKIN LESIONAlison Liban Francis PA Work Phone: Start: 34-94-1743Lshea of free thyroxineJeanine Whitlock PERSONAL INSURANCE ADVISOR Work Phone: Start: 56-78-2660Fhvqgtqbvv spect multiple studies Jeanine Whitlock INSURANCE ANALYST - PERSONAL INSURANCE ADVISOR Work Phone: Start: 27-71-0568Bhxb bld gluc mntr dev cleared fda spec home useAhmasin Schwartz MD Work Phone: Start: 66-36-9122Qyql ia chlamydia trachomatisFawn Contreras MD Work Phone: Start: 71-59-2053Wapupmckouz observation [Identifier] in Cervix by Cyto stainGerri Rine INSURANCE ANALYST - PERSONAL INSURANCE ADVISOR Work Phone: Start: 40-26-7768EvuiapvlsamHqqat Rine PERSONAL INSURANCE ADVISOR Work Phone: Start: 04-03-2024 End: 20-35-0920ROAZZMOSAMC OF LESIONAlison L Skylar PA Work Phone: Start: 23-74-6862FAKUYIHGMRI SKIN LESIONAlison L Skylar PA Work Phone: Start: 14-88-6188QSLS BONE DENSITY 2 SITESGeneric External Data ProviderStart: 70-23-7341Eri bone density study 1/> sites axial Trever Tran MD Work Phone: start: 51-84-5355Fqskpjkqpzu observation [Identifier] in Cervix by Cyto stainGerri Rine INSURANCE ANALYST - PERSONAL INSURANCE ADVISOR Work Phone: Start: 42-34-3084JimkjadmmoeDgsow Rine PERSONAL INSURANCE ADVISOR Work Phone: Start: 84-55-8765Umlzfiqbcyasv metabolic panelHailey D Gregg INSURANCE ANALYST - PERSONAL INSURANCE ADVISOR Work Phone: Start: 19-21-4516Uohkg panelHailey D Gregg INSURANCE ANALYST - PERSONAL INSURANCE ADVISOR Work Phone: Start: 14-03-1998Zczoo albumin quantitativeHailey D Gregg INSURANCE ANALYST - PERSONAL INSURANCE ADVISOR Work Phone: Start: 16-02-9448Ucmmsgdjge exam chest 2 viewsGerri L Rine Work Phone: Start: 11-98-1002MmdmffimkguOhcbx Rine PERSONAL INSURANCE ADVISOR Work Phone: Start: 17-90-2579KigyafommzuTjgva Rine Work Phone: Start: 41-33-6429NMWG LAB REPORTGERRI RINEStart: 00-98-7388TQWWHHJUZ PATIENTGERRI RINEStart: 86-51-8577RAEHVNPQ OXYGEN THERAPY PROTOCOLGERRI RINEStart: 08-51-6252LWXBMKXXWHEG RINEStart: 20-07-9328KDVF CARDIACGERRI RINEStart: 11-29-2008IPML CODEGERRI RINEStart: 03-23-9603GTYEOUM COMMUNICATIONGERRI RINEStart: 29-28-5376ECQDNRSQ SITE CAREGERRI RINEStart: 45-34-8915JXJJHXNTB MONITORINGGERRI RINEStart: 95-16-4965TITMO SIGNSGERRI RINE Start: 26-27-5815EJWOAABG PATIENTGERRI RINEStart: 36-63-5255DQYPGJFWKZ CARDIAC TECHNICAL PROGRAM MANAGER PROCEDUREGERRI RINEStart: 95-44-3332DZTZWSSY OXYGEN THERAPY PROTOCOL JEANINE RINEStart: 15-40-0034EHSBRD AND OUTPUTGERRI RINEStart: 07-21-2017 DIAGNOSTIC CARDIAC TECHNICAL PROGRAM MANAGER PROCEDUREGERRI RINEStart: 45-28-6127MJYIUHDFZ MONITORINGGERRI RINEStart: 40-54-8114HNLUTMYC OXYGEN THERAPY PROTOCOLGERRI RINE Start: 83-61-4891LFPAUFFN RINEStart: 98-36-9202MBNRMUQSUDOWB METABOLIC PANEL W/ REFLEX TO MG FOR LOW KGERRI RINEStart: 30-12-2289ZOXWIZOEZXCKSO RINEStart: 47-12-6420XECLX WEIGHTSGERRI RINEStart: 29-83-5400VDGKHR AND OUTPUTGERRI RINE Start: 90-61-0788SYQNOBBITDTPVE RINEStart: 42-50-3244IXJYOCEMOPDODZ RINEStart: 85-82-1458GLTAQZ TEST REPORTGERRI RINEStart: 61-44-5442Rfbyzldfzo spect multiple studiesGERRI RINEStart: 61-22-0620Micvh panelGERRI RINEStart: 07-03-7178N5, FREEGERRI RINEStart: 37-54-4310ZXFNVNVIMEENW RINEStart: 97-82-0531JDO WITH REFLEXGERRI RINEStart: 84-71-2308SYJXUKAE OXYGEN THERAPY PROTOCOLGERRI RINE Start: 07-20-2017(GXT) STRESS TEST EXERCISE W OUT MYOVIEWGERRI RINEStart: 07-68-7635VHYXJMGJU MONITORINGGERRI RINEStart: 74-90-5482BTXUG SIGNSGERRI CHINYERE Start: 71-50-3154VLTIYCVW OXYGEN THERAPY PROTOCOLGERRI RINEStart: 07-20-2017 INTAKE AND OUTPUTGERRI RINEStart: 36-68-6075MENOJQ PHYSICIAN (SPECIFY)JEANINE WHITLOCK Start: 08-92-6232AIORO OXIMETRY SPOT CHECKGERRI RINEStart: 01-59-6599LSLJIDHZI MONITORINGGERRI RINEStart: 35-33-2467EY CONSULT TO CARDIOLOGYGERRI RINEStart: 58-59-2939JOMMF INTERMITTENT PNEUMATIC COMPRESSION DEVICEGERRI RINEStart: 51-15-3848QRWBPYR STATUS (DIRECT)JEANINE WHITLOCK Plan of Treatment DateCare ActivityDetailAuthorStart: 52-52-1536Jieuugqvx for malignant neoplasm of cervixBon [facility] HospitalStart: 40-45-8114Tpqypfgyu for malignant neoplasm of colonNOMS HealthcareStart: 44-59-9628Dvebtekli for malignant neoplasm of colonB[facility]ITALStart: 13-10-1402Lvtciiadn for malignant neoplasm of cervixPap smearBon [facility] HospitalStart: 02-13-2027 DTaP/Tdap/Td vaccine (3 - Td or Tdap)DTaP/Tdap/Td vaccine (3 - Td or Tdap)[facility]Start: 54-79-0696Lhenbvwjk for malignant neoplasm of breast Breast cancer screenVirginia Hospital CenterStart: 83-03-8861Wfwnlyvil for malignant neoplasm of cervixBon [facility] HospitalStart: 12-90-1361Wthpyywp screeningDiabetes: Retinopathy ScreeningNOMS HealthcareStart: 04-05-2026 End: 41-41-5481Mnrimsa encounter mgsgaanly00/03/2026 10:00 AM EST Office Visit [facility] [address] [place] [id number] Amalia Francis, NAHED [address] [place] [address] NOMRoxann [facility] DermatologyStart: 03-23-2026 Urine screening for proteinDiabetes: Urine Protein ScreeningHermann Area District Hospital Start: 08-02-2025 End: 73-19-2464Ybefgtq encounter bjgqtizje93/02/2026 9:00 AM EST Office Visit [facility] [address] [place] [address] Linda Ayala MD [address] [place] [address] [place] [id number] Establish [facility] CARDIOLOGY Part [facility] HospitalComment on above:Establish careStart: 06-28-2025 End: 63-91-4559Umrdsfm encounter procedureMETROHEALTH [facility] OBSTETRICS & GYNECOLOGY Part [facility] Memorial HospitalComment on above:yearlyyearly/repeat papStart: 44-31-0469Vqtkqkgkey A1c measurementDiabetes: Hemoglobin R6GHZQQHermann Area District Hospital Start: 06-23-2025 End: 53-33-1204Lcgjbyiosr A1c/Hemoglobin.total in BloodHemoglobin A1c Lab Today Type 2 diabetes mellitus with hyperglycemia, without long-term current useof insulin (HCC) Expected: 06/23/2025 (Approximate), Expires: 03/23/2026[facility] Work Phone: Comment on above:Expected: 06/23/2025 (Approximate), Expires: 03/23/2026Start: 85-79-9885Dirprybl screeningDiabetes: Retinopathy ScreeningACADIA HEALTHCARE HealthcareStart: 88-02-9205Evtdxnznsr MonitoringDepression MonitoringBon [facility] HospitalStart: 65-29-1659Yyihtopqi for malignant neoplasm of breastMammogramNOSD HealthcareStart: 77-68-4425Dhukvyeuy for malignant neoplasm of breastBreast cancer screenBON SUBUR[facility]AN [facility]OS[facility]ITALStart: 05-19-2025 End: 61-69-0149Vfnwzdw encounter textnghcu89/17/2025 11:30 AM EST Office Visit [facility] [place] [facility] [address] [place] [address] Cristina Escalante, PERSONAL INSURANCE ADVISOR [address] [place], [place] [id number] [facility] Patient EducationStart: 52-24-8694Ezrfqjqipp A1c measurementDiabetes: Hemoglobin Z3PPREI Healthcare Start: 05-17-2025 End: 52-03-3664Qebcita encounter /15/2025 2:20 PM EST Office Visit [facility] [address] [place] [address] Jamie Schwartz MD [address] [place] [address] MIRLANDERoxann WinJones EndocrinologyStart: 04-14-2025 End: 48-56-1127Uevmdyw encounter procedureMercy Cardiology SpecialistComment on above:PERSONAL INSURANCE ADVISOR, cardiac clearance -- foot surgery -- Saw [facility] for a heart cath, [facility] for [facility] heart [facility] -- does not remember the facility to get recordsStart: 04-12-2025 End: 31-45-8706Ohxfgtg encounter knoplpqwf36/10/2025 10:30 AM EST Appointment [facility] Radiology [address] [place], [place] [id number] media sched w [facility] RadiologyComment on above:media sched w pt Start: 04-05-2025 End: 83-95-7388Ucsepnu encounter procedureNOMS TSR DERMStart: 03-23-2025 End: 42-70-3108UR Gastrointestinal tract upper Views W contrast POFL upper GI wo KUB Imaging Routine Abnormal swallowing Expected: 03/23/2025, Expires: 03/23/2026NOSD HealthcareComment on above:Expected: 03/23/2025, Expires: 03/23/2026Start: 03-23-2025 End: 28-36-2065Eiukgbv encounter procedureNOHurley Medical Center Family MedicineComment on above:Wellness examination (Primary Dx); [...] disorder; Environmental and seasonal allergiesStart: 03-17-2025 End: 53-84-6612[place] and management of gbpiabgkq92/15/2025 1:00 PM EDT Clinical Support [facility] [address] [place] [address] Justin Spivey RNNOMS [place] Patient EducationStart: 03-15-2025 End: 47-83-0515Isvcxjn encounter procedureNOMS TSR FMComment on above: rescheduled with patient. due to original testing issueStart: 03-13-2025 Hemoglobin A1c measurementDiabetes: Hemoglobin O5LIULGHermann Area District HospitalStart: 03-03-2025 End: 910540-zckbfscfozcwse D3 [Mass/volume] in Serum or PlasmaVitamin D 25 hydroxy Total Lab Today Vitamin D deficiency Expected: 03/03/2025 (Approximate), Expires: 09/14/2025[facility] Work Phone: Comment on above:Expected: 03/03/2025 (Approximate), Expires: 09/14/2025Start: 03-03-2025 End: 52-83-7799CFQ panel - Blood by Automated countCBC Lab Today Wellness examination Expected: 03/03/2025 (Approximate), Expires: 09/14/2025[facility] HealthcareComment on above:Expected: 03/03/2025 (Approximate), Expires: 09/14/2025Start: 03-03-2025 End: 29-19-7972Cizdrxfjbpsxu metabolic 2000 panel - Serum or PlasmaCOMPREHENSIVE METABOLIC PANEL (REFL) Lab Today Wellness examination Expected: 03/03/2025 (Approximate), Expires: 09/14/2025[facility] HealthcareComment on above:Expected: 03/03/2025 (Approximate), Expires: 09/14/2025Start: 03-03-2025 End: 31-48-5089Wlhziugjps A1c/Hemoglobin.total in BloodHemoglobin A1c Lab Today Type 2 diabetes mellitus without complication, without long-term current use of insulin Expected: 03/03/2025 (Approximate), Expires: 09/14/2025[facility] Comment on above:Expected: 03/03/2025 (Approximate), Expires: 09/14/2025Start: 03-03-2025 End: 79-07-5409Fcdht 1996 panel - Serum or PlasmaLipid panel Lab Today Wellness examination Expected: 03/03/2025 (Approximate), Expires: 09/14/2025[facility] HealthcareComment on above:Expected: 03/03/2025 (Approximate), Expires: 09/14/2025Start: 03-03-2025 End: 55-58-4218EWH W/REFLEX TO FT4TSH W/REFLEX TO FT4 Lab Today Abnormal thyroid screen (blood) Expected: 03/03/2025 (Approximate), Expires: 09/14/2025[facility] HealthcareComment on above:Expected: 03/03/2025 (Approximate), Expires: 09/14/2025Start: 03-03-2025 End: 15-99-5012HZZFLIJQSZ, COMPLETE W/REFLEX TO CULTUREURINALYSIS, COMPLETE W/REFLEX TO CULTURE Lab Today Dysuria Wellness examination Expected: 03/03/2025 (Approximate), Expires: 09/14/2025[facility] HealthcareComment on above:Expected: 03/03/2025 (Approximate), Expires: 09/14/2025Start: 03-03-2025 End: 66-89-7435Uipssxhiwy and management of pzqcqheiz76/01/2025 1:00 PM EDT Clinical Support [facility] Patient Education [address] [place] [address] Justin Spivey RNNOMS [place] Patient EducationStart: 03-02-2025 End: 21-50-3022Ohhqict encounter grkhxyhdn66/30/2025 11:30 AM EDT Office Visit [facility] [address] [place] [address] Jamie Schwartz MD [address] [place] [address] [facility]ITALRoxann [facility] EndocrinologyStart: 02-19-2025 End: 97-25-3384Zwmoxuf stress study ProcedureSTRESS TEST LEXISCAN Imaging Routine Abnormal EKG Expected: 02/19/2025 (Approximate), Expires: 02/19/2026[facility] Work Phone: Comment on above:Expected: 02/19/2025 (Approximate), Expires: 02/19/2026Start: 02-16-2025 End: 83-69-7809Ptzmyyq encounter ybtuofyvj30/16/2025 2:30 PM EDT Office Visit [facility] [address] [place] [address] Jeanine Whitlock, PERSONAL INSURANCE ADVISOR [address] [place] [address] [facility] HospitalComment on above:ArrivedStart: 09-62-3425ZMAJH-19 Vaccine ( season)COVID-19 Vaccine ( season)[facility]: 10-31-9272XRMAL-19 Vaccine ( season)COVID-19 Vaccine ( season)[facility] Start: 26-36-5606Nbpoawkkg vaccinationInfluenza Vaccine (#1)[facility] Start: 80-46-0698Fvihzysdv vaccinationFlu vaccine (#1)[facility] Start: 99-54-6282Fakxecsgqm A1c measurementDiabetes: Hemoglobin I8HUSXVHermann Area District HospitalStart: 12-01-2024 End: 16-54-8939Yeclekuhtt A1c/Hemoglobin.total in BloodHemoglobin A1c Lab Today Type 2 diabetes mellitus without complication, without long-term current use of insulin Expected: 12/01/2024 (Approximate), Expires: 12/04/2024[facility] Comment on above:Expected: 12/01/2024 (Approximate), Expires: 12/04/2024Start: 50-70-2997Iukmb screening for proteinDiabetes: Urine Protein ScreeningNOMS HealthcareStart: 09-14-2024 End: 92-91-6159Rpygvhs encounter kgtzkeskc26/14/2025 9:00 AM EDT Office Visit [facility] [address] [place] [address] Jeanine Whitlock L, PERSONAL INSURANCE ADVISOR [address] [place], [place] [id number] ArrivedNOMEMORIAL MEDICAL CENTERR Comment on above:ArrivedStart: 09-11-2024 End: 63-66-5476Blxsgia encounter tysycnnyq79/11/2025 9:00 AM EDT Office Visit [facility] [address] [place] [address] Jeanine Whitlock, PERSONAL INSURANCE ADVISOR [address] [place] [address] [facility] TSR FMStart: 06-12-2024 End: 01-48-6933Kulgtnhfiier / ancillary services prnznituti41/10/2025 9:00 AM EST Ancillary Procedure [facility] [address] [place] [address] [facility] [place] IMAGINGStart: 06-08-2024 End: 07-52-7266BL Breast - bilateral ScreeningBilateral screening mammogram Imaging Routine Visit for screening mammogram Expected: 06/08/2024 (Ap proximate), Expires: 08/03/2025[facility] Work Phone: Comment on above:Expected: 06/08/2024 (Approximate), Expires: 08/03/2025Start: 06-08-2024 End: 54-31-2693Oryvanp encounter yizgpyoci39/06/2025 9:30 AM EST Office Visit [facility] [address] [place] [address] Jeanine Whitlock, PERSONAL INSURANCE ADVISOR [address] [place], [place] [id number] [facility] TSR FMStart: 81-70-2529Bfldorjytv A1c measurement Diabetes: Hemoglobin L3YYMWP HealthcareStart: 52-97-6334Lprmlgvys for malignant neoplasm of breastMammogramACADIA HEALTHCARE HealthcareStart: 05-11-2024 End: 68-68-5153Ikzuiur encounter fyofedgdh87/09/2024 10:55 AM EST Office Visit [facility] [address] [place] [address] Kera Mac APRN-BID CLERK [address] [place] [address] [facility] SWS DERMStart: 04-06-2024 End: 66-20-7547Kpdlttirlz A1c/Hemoglobin.total in BloodHemoglobin A1c Lab Today Type 2 diabetes mellitus without complication, without long-term current use of insulin ([facility]) Expected: 04/06/2024 (Approximate), Expires: 03/06/2025[facility] Work Phone: Comment on above:Expected: 04/06/2024 (Approximate), Expires: 03/06/2025Start: 04-03-2024 End: 22-62-5801Csnwjrn encounter procedureNOMEMORIAL MEDICAL CENTERR DERMComment on above:Arrived Start: 03-06-2024 End: 13-45-7867Zgtjsez encounter fxtvyzslu05/04/2024 9:00 AM EDT Office Visit [facility] [address] [place] [address] Jeanine Whitlock, PERSONAL INSURANCE ADVISOR [address] [place] [address] [facility] TSR FMStart: 31-97-5699Aszanexysn A1c measurement Diabetes: Hemoglobin H7KRRLH HealthcareStart: 95-28-5968HUUZI-19 Vaccine ( season)COVID-19 Vaccine ( season)[facility] Start: 87-77-0891KSAOC-19 Vaccine ( season)COVID-19 Vaccine ( season)[facility]Start: 37-60-2977Tbxovqxlc vaccination Influenza Vaccine (#1)[facility] HealthcareStart: 01-22-2024 End: 20-30-7309Tnwjjbh encounter eagobxapq74/21/2024 3:00 PM EDT Office Visit [facility] [address] [place] [address] Jeanine Whitlock Liban, PERSONAL INSURANCE ADVISOR [address] [place] [address] ArrivedNOMS TSR FMComment on above:ArrivedStart: 12-20-2023 GFR test (Diabetes, CKD 3-4, OR last GFR 15-59)GFR test (Diabetes, CKD 3-4, OR last GFR 15-59)[facility]: 01-42-3562Kfzaeuvwwi A1c odrjeljzqnxW7W test (Diabetic or Prediabetic)[facility] Hospitalart: 73-38-0931Piuso panelLipidsBON [facility] Hospitalart: 59-10-6939Eusyf screening for proteinDiabetic Alb to Cr ratio (uACR) testBON [facility] Hospitalart: 86-53-7040Dwotzmpni vaccinationFlu vaccine (#1)[facility]: 42-36-0470Nhlnlcnig vaccinationFlu vaccine (#1)[facility] HospitalM[facility] Phone: start: 22-58-8520WBAMN-19 Vaccine (3 - Booster for Moderna series)COVID-19 Vaccine (3 - Booster for Moderna series)[facility]: 92-59-0721Vpezkvsbo for malignant neoplasm of breastBreast cancer screenBON [facility]: 11-47-8901Owqurkmtuj measurement Creatinine monitoringSamaritan HospitalSoundOut Work Phone: start: 76-41-8831XBH test (Diabetes, CKD 3-4, OR last GFR 15-59)GFR test (Diabetes, CKD 3-4, OR last GFR 15-59)[facility]art: 84-61-4448Bbemcdvhy monitoringPotassium monitoringMerSoundOut Work Phone: start: 05-36-4086Andgd panelBON [facility]: 61-41-4477Bvabgxfjiglb 0-64 years Vaccine (2 - PPSV23 if available, else PCV20)Pneumococcal 0-64 years Vaccine (2 - PPSV23 if available, else PCV20)[facility]art: 25-07-1369Yjgdhxwlgjvs 0-64 years Vaccine (2 - PPSV23 or PCV20)Pneumococcal 0-64 years Vaccine (2 - PPSV23 or PCV20)[facility]art: 06-26-6832Viveotbwhiwf 0-64 years Vaccine (2 of 2 - PPSV23 or PCV20)Pneumococcal 0-64 years Vaccine (2 of 2 - PPSV23 or PCV20)[facility]: 77-21-3678Qgaqvwagadlj 50+ years Vaccine (2 of 2 - PPSV23) Pneumococcal 50+ years Vaccine (2 of 2 - PPSV23)[facility]: 87-94-5082Mzgxhadeevrf 50+ years Vaccine (2 of 2 - PPSV23, PCV20, or PCV21) Pneumococcal 50+ years Vaccine (2 of 2 - PPSV23, PCV20, or PCV21)[facility]: 11-26-2519Weayghdfhosn Vaccine: Pediatrics (0 to 5 Years) and At-Risk Patients (6 to 64 Years) (2 of 2 - PPSV23, PCV20, or PCV21)Pneumococcal Vaccine: Pediatrics (0 to 5 Years) and At-Risk Patients (6 to 64 Years) (2 of 2 - PPSV23, PCV20, or PCV21)[facility] HospitalStvienna: 97-07-1984Pravypbu Vaccine (1 of 2)Shingles Vaccine (1 of 2)[facility]: 03-13-2017 DTaP/Tdap/Td Vaccines (2 - Td or Tdap)DTaP/Tdap/Td Vaccines (2 - Td or Tdap)[facility] HospitalStvienna: 92-23-7715Drpvsrici for malignant neoplasm of Critical access hospital: 37-24-4618Sqebtsrfeq A1c wiluqcamcyeL4Q test (Diabetic or Prediabetic)[facility]: 19-08-1288Ixmbbyxmp for malignant neoplasm of cervixSentara Halifax Regional Hospital: 40-49-1116Fphhqgozg for malignant neoplasm of cervixSentara Halifax Regional Hospital: 26-69-9490Adyrqxftl B vaccine (1 of 3 - 19+ 3-dose series)Hepatitis B vaccine (1 of 3 - 19+ 3-dose series)[facility]: 13-14-6152Jybpadlzt B vaccine (1 of 3 - Risk 3-dose series)Hepatitis B vaccine (1 of 3 - Risk 3-dose series)[facility]: 80-99-3947Mlzvqfuo microalbuminuria testDiabetic microalbuminuria testWyandot Memorial Hospital FleAff[facility] Phone: start: 13-42-8657Mnixjioh screeningDiabetic retinal examSentara [facility]ifax [facility] Hospital: 71-02-8073Vgkqwload C screeningHepatitis C screenSentara [facility]ifax [facility] Hospital: 18-02-5528Rvqii screening for protein Diabetic Alb to Cr ratio (uACR) testSentara [facility]ifax [facility] Hospital: 86-39-6001TMJ screeningHIV screenSentara Halifax Regional Hospital: 56-02-2704Guurpcqjgw MonitoringDepression MonitoringSentara [facility] Hospital: 45-91-0554Rpbobbsi foot examinationDiabetic foot examSentara Halifax Regional Hospital: 1975 Diabetic retinal examDiabetic retinal examSelect [facility] Phone: start: 97-44-9798Yhrkmvwuiegy 0-64 years Vaccine (1 of 2 - PPSV23)Pneumococcal 0-64 years Vaccine (1 of 2 - PPSV23)[facility] Phone: start: 24-60-4236GLQ Vaccines (1 of 1 - Standard series)MMR Vaccines (1 of 1 - Standard series)[facility]: 01-23-1966 COVID-19 Vaccine (#1)COVID-19 Vaccine (#1)[facility]: 17-70-4675Xcpzjjplq B vaccine (1 of 3 - 3-dose series)Hepatitis B vaccine (1 of 3 - 3-dose series)[facility]: 73-62-2682Ntlgxvhbm C screening Hepatitis C screenWyandot Memorial Hospital [employer] Phone: start: 24-58-7070Jdhpzxdoe for malignant neoplasm of colonNOMS HealthcareChlamydia/GC DNA, Thin PrepChlamydia/GC DNA, Thin Prep Microbiology Routine STD exposure 06/19/2024 9:43 AM [facility] [employer] End: 33-58-6783Gmeoouhnaxgxd procedure, preparation of smear, genital sourcePAP SMEAR Lab Routine Women's annual routine gynecological examination 1 Occurrences starting 06/19/2024 until 06/19/2024 [employer] Phone: Comment on above:1 Occurrences starting 06/19/2024 until 06/19/2024 End: 39-39-6528Qfucnjdlsy A1c/Hemoglobin.total in [facility] [employer] Phone: Comment on above:Once for 1 Occurrences starting 12/19/2022 until 12/19/2022 End: 05-91-9556Cqkrglhosaqp pulse oximetryPulse Oximetry Spot Check Respiratory Care Routine One Time for 1 Occurrences starting 04/08/2025 until 04/08/2025 [employer]ationsComment on above:One Time for 1 Occurrences starting 04/08/2025 until 04/08/2025 End: 23-55-3089Vbzirdd stress test with myocardial perfusionHonorhealth Scottsd[facility] Clinical InnovationsComment on above:1 Occurrences starting 03/12/2025 until 03/12/2025Oxygen therapy [Minimum Data Set]Initiate Oxygen Therapy Protocol Respiratory Care Routine As Needed until discontinued starting 04/08/2025 [employer] Comment on above:As Needed until discontinued starting 04/08/2025Oxygen therapy [Minimum Data Set]Initiate Oxygen Therapy Protocol Respiratory Care Routine As Needed until discontinued starting 04/08/2025 [employer] InnovationsComment on above:As Needed until discontinued starting 04/08/2025 End: 67-40-3673Ghomywagg studySurgical Pathology Lab Routine HGSIL on cytologic smear of cervix 1 Occurrences starting 08/04/2024until 08/04/2024on [employer] Phone: Comment on above:1 Occurrences starting 08/04/2024 until 08/04/2024 End: 31-04-0444EVXVEPNC PATHOLOGY REPORTSURGICAL PATHOLOGY REPORT Lab Routine Once for 1 Occurrences starting 08/04/2024 until 08/04/2024on [facility] on above:Once for 1 Occurrences starting 08/04/2024 until 08/04/2024 Immunizations Immunization DateImmunizationNotesCare SmgkopeeJwrwzxbm73-64-7655ixtsjvduf, seasonal, injectable, preservative freeGerri Rine PERSONAL INSURANCE ADVISOR Work Phone: [phone] [place], [place] [address]Fqzcbdzfjm36-19-6006ibuqqgqmb, injectable, quadrivalent, preservative freeGerri Rine PERSONAL INSURANCE ADVISOR Work Phone: [phone] [place], [place] [address]Pjknwmjlup15-89-9235qoqdwnmkt virus vaccine, unspecified formulationGerri Rine PERSONAL INSURANCE ADVISOR Work Phone: [phone] [place] [address]Pilwtbpjzi70-61-8701eenytpwem, injectable, quadrivalent, preservative freeGerri Rine PERSONAL INSURANCE ADVISOR Work Phone: [phone] [place], [place] [address]Plvtujkjmi78-12-1446pqffiebyk virus vaccine, unspecified formulationGerri Rine PERSONAL INSURANCE ADVISOR Work Phone: [phone] [place], [place] [address]Cwhvgoaffs88-33-3339qxfltimvm, injectable, quadrivalent, preservative freeGerri Rine PERSONAL INSURANCE ADVISOR Work Phone: [phone] [place] [address]Vbklztelpx74-04-9681msbpwt vaccine recombinant Jeanine Rine PERSONAL INSURANCE ADVISOR Work Phone: [phone] [place], [place] [address]Lknlppnayt65-37-1270pnsfvberc virus vaccine, unspecified formulationGerri Rine PERSONAL INSURANCE ADVISOR Work Phone: [phone] [place] [address]Nntryjlbkq50-11-7537ivikzjknt, injectable, quadrivalent, preservative freeGerri Rine PERSONAL INSURANCE ADVISOR Work Phone: [phone] [place] [address]Vuwhznhhth63-45-2904ldvunc vaccine recombinant Jeanine Rine PERSONAL INSURANCE ADVISOR Work Phone: [phone] [place], [place] [address]Xiuiofrsoo34-53-3425doolpuwmh virus vaccine, unspecified formulationGerri Rine PERSONAL INSURANCE ADVISOR Work Phone: [phone] [place], [place] [address]Sqdsqobswk87-99-5018faghymdsm, injectable, quadrivalent, preservative freeGerri Rine PERSONAL INSURANCE ADVISOR Work Phone: [facility] HospitalXxylyfboav09-34-9823rbaqkcixutwc conjugate vaccine, 13 valentGerri Rine PERSONAL INSURANCE ADVISOR Work Phone: [facility] HospitalDoiwrukedy38-69-4181buugtnkwj virus vaccine, unspecified formulationGerri Rine PERSONAL INSURANCE ADVISOR Work Phone: [phone] HospitalBobuqqagrp43-29-7090ziaegmaja, injectable, quadrivalent, preservative freeGerri Rine PERSONAL INSURANCE ADVISOR Work Phone: [phone] HospitalMpksirtjud85-37-7903svfejva toxoid, reduced diphtheria toxoid, and acellular pertussis vaccine, adsorbedGerri Rine PERSONAL INSURANCE ADVISOR Work Phone: [phone] HospitalBxwzythkwl96-83-0235pdvgqgb toxoid, reduced diphtheria toxoid, and acellular pertussis vaccine, adsorbedGerri Rine INSURANCE ANALYST - PERSONAL INSURANCE ADVISOR Work Phone: [facility] CenterFqtvnv18-29-5895qfxhchtpb B vaccine, adult dosageGerri Rine PERSONAL INSURANCE ADVISOR Work Phone: [phone] HospitalChpdfdcbeq80-36-9945wgllvoeqs B vaccine, adult dosageGerri Rine PERSONAL INSURANCE ADVISOR Work Phone: [phone] HospitalWdpwsvmmgu77-57-4357qzkeqfven B vaccine, adult dosageGerri Rine PERSONAL INSURANCE ADVISOR Work Phone: [facility] HospitalIpxtrurcfv81-43-4919ncjxjggpy B vaccine, adult dosageGerri Rine PERSONAL INSURANCE ADVISOR Work Phone: [phone] Healthcare Payers DatePayer CategoryPayerPolicy [id number] Care O (unspecified) [id number] Health Insurance [id number] Health Vblpdyybe82-56-9810KiqlcxsUQULEOZ [facility] [address] [id number] 2019-Present [address] [place] [address]LN[address]OT 1.2.840.067793.1.13.239.2.7.3.860[id number] [id number] 2.16840.1.086629.3.57[id number] 2.840.1.453753.3.57[id number] 2.840.1.063777.3.57[id number] 2.840.1.118527.3.57[id number] 2.840.1.747654.3.57[id number] 2.0.1.863807.3.57[id number] 2.0.1.783799.3.57[id number] 2.0.1.735144.3.57[id number] 2.840.1.324489.3.57[id number] 2.840.1.588850.3.579.2.[id number] 2.840.1.128376.3.57[id number] 2.840.1.302534.3.57[id number] 2.840.1.666814.3.57[id number] 2.16.840.1.569933.3.57[id number] 2.16.840.1.804104.3.57[id number] 2.16.840.1.237783.3.57[id number] 2.16.840.1.672932.3.57[id number] 2.16.840.1.809357.3.57[id number] 2.16.840.1.631545.3.57[id number] 2.16.840.1.678122.3.57[id number] 2.16.840.1.465352.3.57[id number] 2.16.840.1.844668.3.579.2.173 Social History DateTypeDetailFacilityStart: 01-23-2018 End: 20-64-6511Dyfqcna smoking status NHISNemt. san [facility] smokerBON [facility] [place] Start: 01-23-2018 End: 51-94-7720Pozahvj use and exposureNever [facility] CityScribe Software [facility] HospitalStart: 01-23-2018 End: 14-00-6775Pesgyic intakeCurrent non-drinker of alcohol (finding)[facility] Phone: start: 77-89-5191Hjr Assigned At BirthNot on [facility]eSen[facility] Phone: start: 01-25-2019 End: 03-79-0709Syzoiex of Social functionNOSD HealthcareStart: 01-25-2019 End: 28-67-6895Jthfdwl use panelACADIA HEALTHCARE HealthcareStart: 01-22-2024 End: 90-01-6702Pogrbqfih beverage intakeCurrent drinker of alcohol (finding)[facility] HospitalStart: 84-34-9013Agq often do you need to have someone help you when you read instructions, pamphlets, or other written material from your doctor or pharmacy [SILS]NeverNOMS HealthcareDo you belong to any clubs or organizations such as moravian groups, unions, fraternal or athletic groups, or [...] to pay the mortgage or rent on time?NoNLINDSAY MUNICIPAL [facility] HealthcareStart: 05-78-6306Tov assigned at birthFemale [facility] HospitalStart: 50-62-2637Dosikh identityIdentifies as female gender (finding)[facility] HealthcareHow often to you have a drink containing alcohol?2-4 times a monthNOCrossroads Regional Medical CenterStart: 51-71-3684WmwSdtjkm (finding)Darell JacobsonNew Orleans East Hospital HealthStart: 22-74-2369Lwfdwbghj beverage intakeLifetime non-drinker (finding)[facility] Medical Equipment Procedure CodeEquipment CodeEquipment Original TextEquipment IdentifierDates [id number], [id number]: 11-19-2023 Functional Status WrbzJjhdedshzxOlhnjsUzzmvwps75-77-6378Rcrgpoc Health Questionnaire 2 item (PHQ- 2) [Reported][facility] HospitalGabqhpfcve21-75-7239Gqttx score [AUDIT-C]1 01/22/2024 11:12 AM EDT Mychart, GenericNOMS Dcqgkcowrn99-51-0296Sbo often do you have a drink containing alcohol?Monthly or less 01/22/2024 11:12 AM EDT Mychart, Generic Monthly or lessNOMS Kiodrvwczs30-66-3341Qgi many standard drinks containing alcohol do you have on a typical day?1 or 2 01/22/2024 11:12 AM EDT Mychart, Generic 1 or 2NOMS Cjoquddnbw70-23-5876Snk often do you have 6 or more drinks on 1 occasion?Never 01/22/2024 11:12 AM EDT Mychart, Generic NeverHermann Area District Hospital 16-10-4256Kgjtgha Health Questionnaire 2 item (PHQ-2) [Reported][facility] Clinical Notes 01-22-2024 to 04-08-2025 Note Date & HkawTainTbunkplo01-36-7585 History of Present illness Narrative* Huma Lewis [...] understanding. Care continues documented in this encounterBon [facility] Discharge instructions* Discharge Instructions* Huma Lewis [...] taking more than one drug. This includes lumx-ftq-jdqxuux medicine and herb or dietary supplements. Plan [...] by your doctor. Call Your Doctor at [phone] or go to the closest Emergency department [...] emergency, CALL 911 documented in this encounterBon [facility] History of Present illness Narrative* NAHED Mcnally [...] Examined Right arm Examined Patient wearing nail slovenian, Denies dark streaks on toenails Left arm [...] limited to risks of scarring, darker or ship boat or barge mate pigmentary changes, recurrence, incomplete removal and infection. [...] Next Visit: 1 year documented in this encounterHermann Area District HospitalHqnaycnmdg38-49-1844 History of Present illness Narrative* Jeanine Whitlock [...] perfusion defect, has appt with cardio at [facility] in apr. No GI/ issues No skin changes No MS changes-chronic pain in the right foot , awaits surgery per dr piper, awaits follow up on abn stress test/12 lead ekg Good water intake, rare soda, rare etoh, nonsmoker Sleep is somewhat poor, has upcoming sleep medicine at [facility] in September She is concerned that her [...] hyperglycemia, without long-term current use of insulin ([facility]) Comments: 7.2% on 02-16-25, keep appt with dr verma 05-17-25 Orders: - Hemoglobin A1c; Future Mild intermittent asthma without complication ([facility]) Comments: good control ENRIQUE (generalized anxiety disorder) Comments: good control at this time Severe single current episode of major depressive disorder, without psychotic features ([facility]) Vitamin D deficiency Comments: update lab, [...] disorder Comments: sees dr grewal /oma santos PERSONAL INSURANCE ADVISOR every 3 months. Environmental and seasonal allergies [...] Yes Drug use: Never documented in this encounterHermann Area District HospitalFnhambdkqd69-02-2956 Instructions* Patient Instructions* Jeanine Whitlock NP - 03/23/2025 9:00 AM EDT Flu vaccine given today, consider update covid in jun Keep appt apr 14 with renetta [facility] Keep in contact with dr piper Update the aic mid April Consider scheduling an upper Gi to evaluate the swallowing issue We will see about getting a night pulse oximeter study documented in this encounterHermann Area District [id number] History of Present illness Narrative* Yamilka Lan RN - 03/12/2025 10:00 AM EDT Instructed on objectives and procedure of lexiscan/cardiolite stress test. [facility] History of Present illness Narrative* Jamie Schwartz [...] TABLET EVERY MORNINGWITH FOOD Continuous Glucose Sensor (BioMCN G7 Sensor) misc USE DIRECTED AND CHANGE [...] hyperglycemia, without long-term current use of insulin ([facility]) - POCT glucose manually resulted - Ambulatory referral to Endocrinology - pioglitazone (Actos) 15 MG tablet; Take 1 tablet (15 mg) by mouth Daily Primary hypertension Vitamin D deficiency Acquired hypothyroidism Encounter for dietary consultation Class 2 severe obesity due to excess calories with serious comorbidity and body mass index (BMI) of39.0 to 39.9 in adult ([facility]) Diet and exercise reviewed with the [...] 3 months (around 06/01/2025). documented in this encounterHermann Area District HospitalDfncvksica83-74-9083 Telephone encounter Note* Telephone Encounter - Jeanine [...] timing is far out, we will trial [facility]. [facility] HospitalBnjmxphcjh91-38-0465 Miscellaneous Notes* Telephone Encounter - Jeanine Whitlock NP - 02/19/2025 1:50 PM EDT Phone discussion with pt. Covclari sx are mild, improving. Aware aic 7.2% and that we are ok with that. The EKG from jan sinus gretel, EKG sept ? Inf infarct She will try calling on Saturday to [facility] scheduling let us know if timing is far out, we will trial [facility]. documented in this encounterHermann Area District HospitalOxzjfewdqj62-10-1565 Telephone encounter Note* Telephone Encounter - Jeanine Whitlock NP - 02/19/2025 1:09 PM EDT Aic is 7.2% potassium is low on preops. There is also + covid screen. Discussed per emessage [facility] HospitalOglefdzahq23-43-2299 Miscellaneous Notes* Telephone Encounter - Jeanine Whitlock NP - 02/19/2025 1:09 PM EDT Aic is 7.2% potassium is low on preops. There is also + covid screen. Discussed per emessage documented in this encounterHermann Area District HospitalUgxlaswpwv82-14-3186 Telephone encounter Note* Telephone Encounter - Jeanine Whitlock NP - 02/17/2025 11:01 AM EDT I sent rodolfopack to [facility] emssage to pt [facility] HospitalFhylfgwwzx71-83-7767 Miscellaneous Notes* Telephone Encounter - Jeanine Whitlock NP - 02/17/2025 11:01 AM EDT I sent kevin to [facility] emssage to pt * Telephone Encounter - Evelyne Valentin MA - 02/17/2025 10:50 AM EDT Patient called back she just got a call from [facility] and they told her she has a + covid * Telephone Encounter - Evelyne Valentin MA - 02/17/2025 10:45 AM EDT Yesterday her Azithromycin was sent to the wrong pharmacy. It went to her mail away pharmacy. She would like it sent to [facility] documented in this encounterHermann Area District HospitalJszcbfaakk23-81-9079 Telephone encounter Note* Telephone Encounter - Evelyne Valentin MA - 02/17/2025 10:50 AM EDT Patient called back she just got a call from [facility] and they told her she has a + covid [facility] HospitalArwiymiioa61-79-4500 Telephone encounter Note* Telephone Encounter - Evelyne Valentin MA - 02/17/2025 10:45 AM EDT Yesterday her Azithromycin was sent to the wrong pharmacy. It went to her mail away pharmacy. She would like it sent to [facility] [id number] History of Present illness Narrative* Jeanine Louie Chinyere, PERSONAL INSURANCE ADVISOR - 02/16/2025 2:30 PM EDT Aishwarya Aguila [...] TABLET EVERY MORNINGWITH FOOD Continuous Glucose Sensor (BioMCN G7 Sensor) misc USE DIRECTED AND CHANGE [...] Never Depression: At risk (06/19/2024) [facility] PHQ-2 PHQ-9 Total Score: 16 [...] of insulin (HCC) Comments: aic drawn at [facility] today BMI 39.0-39.9,adult Comments: we discussed Mild [...] complication, without long-term current use of insulin ([facility]) - Ambulatory referral to Diabetic Education; Future ..I have reviewed and reconciled the history, allergies, family history, social history, and the medication list with the patient today. Follow up for 3 mo recheck. documented in this [facility]09-16-2025 Instructions* Patient Instructions* Jeanine Whitlock NP - 02/16/2025 2:30 PM EDT Keep using cgm Take the zpack with food until gone Ok to move follow up to early may documented in this [facility]08-22-2025 Telephone encounter Note* Telephone Encounter - Jeanine Whitlock NP - 01/22/2025 6:58 AM EDT Increased the ozempic dose back to 2mg, unsure how this was incorrectly sent as 1 mg. [facility] HospitalBearzugxxk57-29-0731 Miscellaneous Notes* Telephone Encounter - Jeanine Whitlock NP - 01/22/2025 6:58 AM EDT Increased the ozempic dose back to 2mg, unsure how this was incorrectly sent as 1 mg. documented in this [facility]08-01-2025 Telephone encounter Note* Telephone Encounter - Jeanine Whitlock NP - 01/01/2025 2:12 PM EDT Sent as [facility] to [facility]. [facility] HospitalBfwyvlseqj01-86-3942 Miscellaneous Notes* Telephone Encounter - Jeanine Whitlock NP - 01/01/2025 2:12 PM EDT Sent as requested to [facility]. * Telephone Encounter - Charlotte Caruso LPN - 12/31/2024 2:26 PM EDT Pt called and reports that monjaro was not covered by insurance. Needs refill of ozempic. Due for next injection saturday/saturday [facility]. [facility] 03/2025 documented in this encounterHermann Area District HospitalByyyailjeo77-17-7500 Telephone encounter Note* Telephone Encounter - Charlotte Caruso LPN - 12/31/2024 2:26 PM EDT Pt called and reports that monjaro was not covered by insurance. Needs refill of ozempic. Due for next injection saturday/saturday [facility]. [facility] 03/2025 [facility] HospitalYihagcbyyl53-69-8994 Telephone encounter Note* Telephone Encounter - Jeanine Whitlock NP - 12/14/2024 6:08 AM EDT Mounjaro requested by pt. Ozempic not assisting with wt loss. Rx created and sent .aic 6.8% on jardiance, glucophage, ozempic. [facility] HospitalOkbeuqjhvn84-17-4687 Miscellaneous Notes* Telephone Encounter - Jeanine Whitlock NP - 12/14/2024 6:08 AM EDT Kristy requested by pt. Albaro not assisting with wt loss. Rx created and sent .aic 6.8% on jardiance, glucophage, ozempic. documented in this [facility]06-17-2025 Telephone encounter Note* Telephone Encounter - Jeanine Whitlock NP - 11/17/2024 12:48 PM EDT Resent this again to [facility] [place]. [facility] HospitalVqhekzgqku78-31-6627 Miscellaneous Notes* Telephone Encounter - Jeanine Whitlock NP - 11/17/2024 12:48 PM EDT Resent this again to [facility] [place]. * Telephone Encounter - Jeanine Whitlock NP - 11/13/2024 2:41 PM EDT Sent as requested * Telephone Encounter - vEelyne Valentin MA - 11/13/2024 10:02 AM EDT She is asking for us to send [facility] a Rx for a continuous glucose monitor. Her insurance will not pay for it, but she would like to see how much it will cost her. If it isn't to much she is just going to pay sánchez for it. documented in this [facility]06-13-2025 Telephone encounter Note* Telephone Encounter - Jeanine Whitlock NP - 11/13/2024 2:41 PM EDT Sent as requested [facility] HospitalTkrymurnix32-38-3776 Telephone encounter Note* Telephone Encounter - Evelyne Valentin MA - 11/13/2024 10:02 AM EDT She is asking for us to send [facility] a Rx for a continuous glucose monitor. Her insurance will not pay for it, but she would like to see how much it will cost her. If it isn't to much she is just going to pay sánchez for it. [facility] HospitalPxnhpbunha25-73-9077 History of Present illness Narrative* Jeanine Whitlock [...] Never Depression: At risk (06/19/2024) Re[facility] from [facility] PHQ-2 PHQ-9 Total Score: 16 [...] in mar, labs prior. documented in this [facility]04-14-2025 Instructions* Patient Instructions* eJanine Whitlock NP - 09/14/2024 9:00 AM EDT Consider more resistance training 8 oz of water after each meal and stay on feet for about 30 min after each meal Consider 10 hour eat and 14 hour fasting Average blood sugar on or after December 04 and full well lab prior to mar well visit documented in this [facility]03-26-2025 Telephone encounter Note* Telephone Encounter - Charlotte Caruso LPN - 08/26/2024 2:15 PM EDT Pt called rx refill ine and requested losartan. Typically is sent to mail away but is completely out. Please sent to [facility] 09/2024 [facility] HospitalHeefvnayqf05-98-6474 Miscellaneous Notes* Telephone Encounter - Charlotte Caruso LPN - 08/26/2024 2:15 PM EDT Pt called rx refill ine and requested losartan. Typically is sent to mail away but is completely out. Please sent to [facility] 09/2024 documented in this encounterHermann Area District HospitalSgifwsbeeb06-42-5000 History of Present illness Narrative* Osman Gilmore PERSONAL INSURANCE ADVISOR - 07/10/2024 9:00 AM EST Images from [...] but its not going away) HPI: HPI PERSONAL INSURANCE ADVISOR; two weeks of sinus pressure drainage cough [...] Never Depression: At risk (06/19/2024) Received from [facility] PHQ-2 PHQ-9 Total Score: 16 [...] september and as needed.. documented in this encounterHermann Area District HospitalEwxizbonwq35-08-0494 NoteChief Complaint Hx NEELIMA, consultation History of [...] home sleep apnea test, 06/12/2024, performed by [facility], showed a significant degree of [...] is sleepy and fatigued throughout the day. Pettus Sleepiness Scale score: 21. She is sleepy [...] [facility] [place] [address] Prescription: Positive Airway Pressure ? In Person Set-up Patient Name: (more content not included)...[facility] 06-16-2024 Telephone encounter Note* Telephone Encounter - Amy Ng LPN - 06/16/2024 9:04 AM EST Message left for Aishwarya regarding sleep study and referral being sent. Left open if she has any questions to please call. [facility] HospitalQdsgczybqu78-73-5221 Miscellaneous Notes* Telephone Encounter - Amy Ng LPN - 06/16/2024 9:04 AM EST Message left for Aishwarya regarding sleep study and referral being sent. Left open if she has any questions to please call. * Telephone Encounter - Amy Ng LPN - 06/16/2024 6:25 AM EST Sent referral to [facility] with directions to forward to Dr. Plascencia [...] take to get appt. documented in this encounterHermann Area District HospitalSgzslxheph94-36-2366 Telephone encounter Note* Telephone Encounter - Amy Ng LPN - 06/16/2024 6:25 AM EST Sent referral to [facility] with directions to forward to Dr. Plascencia office for obstructive severe sleep apnea. [facility] HospitalLpvnkabrcu49-91-8650 Telephone encounter Note* Telephone Encounter - Jeanine Whitlock NP - 06/16/2024 6:14 AM EST She failed the [facility] sleep study, result was severe sleep apnea. Jeanine would suggest, given the severity, that we send her to see dr oliver for sleep medicine consult. We can see how long it would take to get appt. 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) Comments: ozempic dose increased to 2mg per week due to lack of any sx on the 1 mg dose. last aic 7.3 on 11-06-23 Visit for screening mammogram - Bilateral screening mammogram; Future Follow up in about 3 months (around 09/06/2024). documented in this [facility]01-06-2025 Instructions* Patient Instructions* Jeanine Whitlock NP - 06/08/2024 9:30 AM EST Somebody will call from [facility] requesting a sleep study that will be mailed to you Update aic prior to next appt in early September Schedule mammo documented in this [facility]01-05-2025 Telephone encounter Note* Telephone Encounter - Jeanine Whitlock NP - 06/07/2024 9:21 AM EST Clarified pharmacy for the ozempic 2 mg [facility] HospitalSkhzvdiyaw03-73-7601 Miscellaneous Notes* Telephone Encounter - Jeanine Whitlock NP - 06/07/2024 9:21 AM EST Clarified pharmacy for the ozempic 2 mg documented in this [facility]12-03-2024 Telephone encounter Note* Telephone Encounter - Jeanine Whitlock NP - 05/05/2024 4:25 PM EST Resent correct rx [facility] [id number] Miscellaneous Notes* Telephone Encounter - Jeanine Whitlock NP - 05/05/2024 4:25 PM EST Resent correct rx documented in this [facility]12-02-2024 Telephone encounter Note* Telephone Encounter - Jeanine Whitlock NP - 05/04/2024 6:29 PM EST Increase to ozempic 1 mg dose per emessage request. [facility] HospitalAjrmphsmej72-56-5902 Miscellaneous Notes* Telephone Encounter - Jeanine Whitlock NP - 05/04/2024 6:29 PM EST Increase to ozempic 1 mg dose per emessage request. documented in this [facility]11-01-2024 History of Present illness Narrative* NAHED [...] limited to risks of scarring, darker or ship boat or barge mate pigmentary changes, recurrence, incomplete removal and infection. [...] Next Visit: 1 year documented in this encounterHermann Area District HospitalCsrhztwcvm62-12-1181 Telephone encounter Note* Telephone Encounter - Elizabeth Richey MA - 03/27/2024 12:23 PM EDT Pharmacy requesting new RX for losartan for pt. [facility] HospitalJgndolntez30-12-9731 Miscellaneous Notes* Telephone Encounter - Elizabeth Richey MA - 03/27/2024 12:23 PM EDT Pharmacy requesting new RX for losartan for pt. documented in this encounterHermann Area District HospitalOpccjvfcgc37-73-7970 Telephone encounter Note* Telephone Encounter - Jeanine Whitlock NP - 03/10/2024 12:19 PM EDT noted [facility] HospitalYmeoleydsf59-24-1445 Miscellaneous Notes* Telephone Encounter - Jeanine Whitlock [...] should do about this. documented in this encounterHermann Area District HospitalHtjmgxukns22-34-1231 Telephone encounter Note* Telephone Encounter - Amy Ng LPN - 03/10/2024 11:54 AM EDT Spoke with Maddie and notified her and she reports she has taken the Ozempic previously however after her sugars got better her insurance stopped paying for it. Answered the PA questions online and attached progress notes and A1C. [facility] HospitalVmoagbkota96-86-5210 Telephone encounter Note* Telephone Encounter - Jeanine Whitlock NP - 03/10/2024 11:44 AM EDT Please let maddie know that jeanine sent ozempic once weekly to the local pharmacy for her. This triggered a PA so we will need to see what that looks like. Call if any issues swallowing or abd pain. Beware of constipation. Call if questions. Continue jardiance and metformin. [facility] HospitalHkcvprscgs85-36-2193 Telephone encounter Note* Telephone Encounter - Evelyne Valentin MA - 03/10/2024 9:09 AM EDT She has been wearing the dexcom and her average sugars are running 196. Patient states that she hasbeen eating better, but the alarm that her sugar is high will still go off. She is not sure what more she should do about this. [facility] HospitalQkjigzdbym62-46-4555 History of Present illness Narrative* Jeanine Whitlock [...] EVERY MORNING WITH FOOD Continuous Glucose Sensor (BioMCN G7 Sensor) misc 1 Units, Does not [...] 3.5 mo aic prior. documented in this [facility]10-04-2024 Instructions* Patient Instructions* Jeanine Whitlock NP [...] and protein before carbs documented in this [facility]09-27-2024 Telephone encounter Note* Telephone Encounter - Jeanine Whitlock NP - 02/28/2024 12:38 PM EDT Daily fluconazole sent [facility] HospitalVqhembossm72-65-5588 Miscellaneous Notes* Telephone Encounter - Jeanine Whitlock [...] call something in for her. PT uses [facility]. documented in this encounterHermann Area District HospitalThzgogqiwd56-05-4803 Telephone encounter Note* Telephone Encounter - Elizabeth Richey MA - 02/28/2024 9:46 AM EDT PT called in stating she thinks she has a yeast infection. She mentioned she is having itching and when she is wiping she is getting a little blood just enough she knows she is raw down there, askingif we can call something in for her. PT uses [facility]. [facility] HospitalSlzulvsckd65-36-7810 History of Present illness Narrative* Jeanine Whitlock, [...] and interactive Appears cheerful and animated Rev [facility] discharge summary ASSESSMENT AND PLAN: Assessment/Plan Diagnoses and all orders for this visit: Other specified hypotension Comments: multifactorial, farxiga, wt loss, anesthesia, npo status prior to surgery. push fluids. restart losartan 25mg after done with pain meds for prophylaxis renal fx Type 2 diabetes mellitus without complication, without long-term current use of insulin ([facility]) Comments: aic is 7.3%, up from previous,. continue farxiga. push fluids, discussed how the sgtl2 works. recheck aic on after feb 05, order on deck Orders: - empagliflozin (Jardiance) 10 MG; Take 1 tablet (10 mg) by mouth Daily - losartan (Cozaar) 50 MG tablet; Take 0.5 tablets (25 mg) by mouth Daily Follow up for mar 06 wellvisit. documented in this encounterHermann Area District HospitalZyldafppbb28-76-1293 Instructions* Patient Instructions* Jeanine Whitlock NP - 01/22/2024 3:00 PM EDT Stay off of the amlodipine Stay off of the chlorthalidone Add back in losartan 25mg ( about 1/4 tab after you have weaned off the pain meds) Covid vaccine update, flu vaccine late March after feb 05 documented in this encounterHermann Area District HospitalEvaluation note* Diagnosis Mild intermittent asthma without complication Unspecified asthma documented in this encounter [facility] Phone: evaluation note* Diagnosis Age-related osteoporosis without current pathological fracture Senile osteoporosis [facility] Diagnosis Type 2 diabetes mellitus without complication, without long-term current use of insulin ([facility])- Primary Wellness examination Type 2 diabetes mellitus with hyperglycemia, with long-term current use of insulin ([facility]) Acute post-traumatic stress disorder ([facility]/HCC) ENRIQUE (generalized anxiety disorder) ([facility]/HCC) Generalized anxiety disorder Severe single current episode of major depressive disorder, without psychotic features ([facility]) Acquired hypothyroidism ([facility]/HCC) Unspecified hypothyroidism Panic disorder with agoraphobia ([facility]/HCC) Agoraphobia with panic disorder Pure hypercholesterolemia (CMS/HCC) Pure hypercholesterolemia Primary hypertension (CMS/HCC) Unspecified essential hypertension Mild intermittent asthma without complication ([facility]/HCC) Immunization due Hallux valgus (acquired), left foot Degenerative cervical disc Primary insomnia Persistent disorder of initiating or maintaining sleep Vitamin D deficiency Hallux rigidus, left foot Environmental and seasonal allergies BMI 38.0-38.9,adult documented in this encounter [facility] HealthcareEvaluation note* Diagnosis Type 2 diabetes mellitus with hyperglycemia, with long-term current use of insulin ([facility]/HCC)- Primary documented in this encounter [facility] HealthcareEvaluation note* Diagnosis Environmental and seasonal allergies Pure hypercholesterolemia (CMS/HCC) Pure hypercholesterolemia documented in this encounter [facility] HealthcareEvaluation note* Diagnosis Type 2 diabetes mellitus without complication, without long-term current use of insulin ([facility]) documented in this encounter [facility] HealthcareEvaluation note* Diagnosis Seborrheic keratosis- Primary Melanocytic nevus of trunk Benign neoplasm of skin of trunk, except scrotum Inflamed seborrheic keratosis Surgery, elective Unspecified elective surgery for purposes other than remedying health states documented in this encounter [facility] HealthcareEvaluation note* Diagnosis Type 2 diabetes mellitus with hyperglycemia, with long-term current use of insulin ([facility]) documented in this encounter [facility] HealthcareEvaluation note* Diagnosis Type 2 diabetes mellitus without complication, without long-term current use of insulin ([facility])- Primary documented in this encounter [facility] HealthcareEvaluation note* Diagnosis Other specified hypotension- Primary Type 2 diabetes mellitus without complication, without long-term current use of insulin ([facility]) documented in this encounter [facility] HealthcareEvaluation note* Diagnosis Sandi vaginitis- Primary Candidiasis of vulva and vagina documented in this encounter [facility] HealthcareEvaluation note* Diagnosis Type 2 diabetes mellitus without complication, without long-term current use of insulin ([facility]/HCC)- Primary Type 2 diabetes mellitus without complication, without long-term current use of insulin ([facility])- Primary Visit for screening mammogram documented in this encounter [facility] HealthcareEvaluation note* Diagnosis Type 2 diabetes mellitus without complication, without long-term current use of insulin ([facility])- Primary Visit for screening mammogram Morbid (severe) obesity due to excess calories ([facility]) documented in this encounter [facility] Healthcare[facility] note* Diagnosis Acquired hypothyroidism (CMS/[facility]) Unspecified hypothyroidism documented in this encounter [facility] HealthcareEvaluation note* Diagnosis Degenerative cervical disc Essential hypertension (CMS/[facility]) Unspecified essential hypertension Type 2 diabetes mellitus without complication, without long-term current use of insulin ([facility]) documented in this encounter [facility] Healthcare[facility] note* Diagnosis Severe obstructive sleep apnea documented in this encounter [facility] Healthcare[facility] note* Diagnosis STD exposure Women's annual routine gynecological examination documented in this encounter [facility]* Diagnosis Acute non-recurrent maxillary sinusitis- Primary documented in this encounter [facility] HealthcareEvaluation note* Diagnosis HGSIL on cytologic smear of cervix [facility]* Diagnosis Type 2 diabetes mellitus without complication, without long-term current use of insulin ([facility]) documented in this encounter [facility] HealthcareEvaluation note* Diagnosis Type 2 diabetes mellitus without complication, without long-term current use of insulin- Primary Primary hypertension ([facility]) Unspecified essential hypertension BMI 39.0-39.9,adult Dysuria Wellness examination Screening for deficiency anemia Screening for other and unspecified deficiency anemia Abnormal thyroid screen (blood) Nonspecific abnormal results of thyroid function study Screening, lipid Vitamin D deficiency documented in this encounter [facility] HealthcareEvaluation note* Diagnosis Type 2 diabetes mellitus without complication, without long-term current use of insulin documented in this encounter [facility] HealthcareEvaluation note* Diagnosis Type 2 diabetes mellitus with hyperglycemia, with long-term current use of insulin (HCC)- Primary documented in this encounter [facility] HealthcareEvaluation note* Diagnosis Type 2 diabetes mellitus with hyperglycemia, with long-term current use of insulin ([facility]) documented in this encounter [facility] note* Diagnosis Type 2 diabetes mellitus without complication, without long-term current use of insulin ([facility]) documented in this encounter [facility] HealthcareEvaluation note* Diagnosis Acquired hypothyroidism Unspecified hypothyroidism documented in this encounter [facility] note* Diagnosis Type 2 diabetes mellitus with hyperglycemia, with long-term current use of insulin (HCC)- Primary documented in this encounter [facility] note* Diagnosis Type 2 diabetes mellitus with hyperglycemia, with long-term current use of insulin (HCC)- Primary documented in this encounter [facility]Evaluation note* Diagnosis Type 2 diabetes mellitus with hyperglycemia, with long-term current use of insulin (HCC)- Primary documented in this encounter [facility] HealthcareEvaluation note* Diagnosis Type 2 diabetes mellitus with hyperglycemia, with long-term current use of insulin (HCC)- Primary BMI 39.0-39.9,adult Mild intermittent asthma without complication (HCC) Acute upper respiratory infection Acute upper respiratory infections of unspecified site Type 2 diabetes mellitus without complication, without long-term current use of insulin (HCC) documented in this encounter [facility] HealthcareEvaluation note* Diagnosis Acute upper respiratory infection Acute upper respiratory infections of unspecified site documented in this encounter [facility] HealthcareEvaluation note* Diagnosis Abnormal stress test- Primary Other nonspecific abnormal cardiovascular system function study Abnormal EKG Nonspecific abnormal electrocardiogram (ECG) (EKG) documented in this encounter [facility] HealthcareEvaluation note* Diagnosis Type 2 diabetes mellitus with hyperglycemia, without long-term current use of insulin (HCC)- Primary Primary hypertension Unspecified essential hypertension Vitamin D deficiency Acquired hypothyroidism Unspecified hypothyroidism Encounter for dietary consultation Class 2 severe obesity due to excess calories with serious comorbidity and body mass index (BMI) of39.0 to 39.9 in adult documented in this encounter [facility] HealthcareEvaluation note* Diagnosis Type 2 diabetes mellitus without complication, without long-term current use of insulin ([facility]) documented in this encounter [facility] HealthcareEvaluation note* Diagnosis Abnormal EKG Nonspecific abnormal electrocardiogram (ECG) (EKG) [facility] Diagnosis Type 2 diabetes mellitus with hyperglycemia, with long-term current use of insulin ([facility]) documented in this encounter [facility] HealthcareEvaluation note* Diagnosis Wellness examination- Primary Type 2 diabetes mellitus with hyperglycemia, without long-term current use of insulin ([facility]) Mild intermittent asthma without complication (HCC) ENRIQUE (generalized anxiety disorder) Generalized anxiety disorder Severe single current episode of major depressive disorder, without psychotic features ([facility]) Vitamin D deficiency Panic disorder with [...] due Abnormal swallowing documented in this encounter [facility] HealthcareEvaluation note* Diagnosis Preoperative cardiovascular examination- Primary [...] system function study documented in this encounter [facility] note* Diagnosis Seborrheic keratosis- Primary Melanocytic nevus of trunk Benign neoplasm of skin of trunk, except scrotum Londono angioma Inflamed seborrheic keratosis documented in this encounter [facility] HealthcareReason for visit Narrative* Other (Routine) - AuthorizedSpecialty Diagnoses / ProceduresReferred By ContactReferred To ContactCardiology Diagnoses Abnormal EKG Procedures Nuclear stress test with myocardial perfusion Jeanine Whitlock Liban, INSURANCE ANALYST - PERSONAL INSURANCE ADVISOR [address] [place] [address] Phone: tel: fax: Referral IDStatusReasonStart DateExpiration DateVisits RequestedVisits [id number]/1/202510/1/202633 [facility] for visit Narrative* Other (Routine) - Authorized SpecialtyDiagnoses / ProceduresReferred By ContactReferred To Contact Cardiology Diagnoses Abnormal EKG Procedures Nuclear stress test with myocardial perfusion Jeanine Whitlock Liban, INSURANCE ANALYST - PERSONAL INSURANCE ADVISOR [address] [place], [place] [id number] Phone: tel: fax: Referral IDStatusReasonStart DateExpiration DateVisits RequestedVisits [id number]/1/202510/1/202633 [facility] for visit Narrative* Other (Routine) - Closed SpecialtyDiagnoses / ProceduresReferred By ContactReferred To Contact Cardiology Diagnoses Abnormal EKG Procedures Nuclear stress test with myocardial perfusion Jeanine Whitlock, INSURANCE ANALYST - PERSONAL INSURANCE ADVISOR [address] [place] [address] Phone: tel: fax: Referral IDStatusReasonStart DateExpiration DateVisits RequestedVisits [id number]/1/202510/1/202633 [facility] for visit Narrative* Auth/CertSpecialtyDiagnoses / ProceduresReferred By ContactReferred To Contact Diagnoses Abnormal cardiovascular stress test Procedures SD CATH PLMT L HRT & ARTS W/NJX & ANGIO IMG S&I Left heart cath / coronary angiography Jackson Wiggins MD [address] [place] [address] Phone: tel: fax: [facility] [address] [place] [address] Referral IDStatusReasonStart DateExpiration DateVisits RequestedVisits [id number] [facility] Summary Purpose Family History No Family History [...] ActivatedDate InactivatedComments07/20/2017 6:15 AM07/22/2017 1:14 PMDate ActivatedDate LgvrxsyjlonWaraeeen09/6/2025 1:56 PMDate ActivatedDate InactivatedComments 04/08/2025 12:43 PM04/08/2025 1:56 PMDate ActivatedDate InactivatedComments 07/22/2017 1:14 PM2 9:48 PMDate ActivatedDate InactivatedComments 07/20/2017 6:15 AM07/22/2017 1:14 PM Reason for Referral SpecialtyDiagnoses / ProceduresReferred By ContactReferred To ContactRadiology Diagnoses Age-related osteoporosis without current pathological fracture Procedures DEXA BONE DENSITY 2 SITES DEXA BONE DENSITY AXIAL SKELETON Tyler Tran MD [address] [phone] Referral IDStatusReasonStart DateExpiration DateVisits RequestedVisits [id number] / ProceduresReferred By ContactReferred To Contact Diagnoses Type 2 diabetes mellitus without complication, without long-term current use of insulin ([facility]) Jeanine Whitlock NP [address] [phone] Referral IDStatusReasonStart DateExpiration DateVisits RequestedVisits [id number] / ProceduresReferred By Contact Referred To Contact Diagnoses Type 2 diabetes mellitus with hyperglycemia, with long-term current use of insulin ([facility]) Jeanine Whitlock NP [address] [place] [address] Referral IDStatusReasonStart DateExpiration DateVisits RequestedVisits [id number]/8/202410/8/202711 Additional Source Comments INFORMATION SOURCE (unrecogn ized section and content) DATE CREATED AUTHOR 11/22/2017 [facility] DATE CREATED AUTHOR AUTHOR'S ORGANIZ ATION 07/18/2023 [facility] DATE CREATED AUTHOR AUTHOR'S ORGANIZ ATION 03/20/2025 [facility] DATE CREATED AUTHOR AUTHOR'S ORGANIZ ATION 04/09/2025 [facility] DATE CREATED AUTHOR AUTHOR'S ORGANIZ ATION 04/14/2025 [facility] Care Teams (unrecognized sec tion and content) Team MemberRelationshipSpecialtyStart DateEnd Date Jeanine Whitlock [facility] [place] [address] PCP - Ygbkbtu09/14/16Team MemberRelationshipSpecialtyStart DateEnd Date Jeanine Whitlock [address] [place] [address] PCP - Zmdsnry65/14/16Team MemberRelationshipSpecialtyStart End Jose Putnam, [address] [place] [address] PCP - GeneralFamily Medicine11/09/22 Jeanine Whitlock, PERSONAL INSURANCE ADVISOR [address] [place] [address] Nurse PractitionerFamily Medicine11/09/22Team MemberRelationshipSpecialtyStart End Jose Putnam, [address] [place] [address] PCP - GeneralFamily Medicine11/09/22 Jeanine Whitlock, PERSONAL INSURANCE ADVISOR [address] [place] [address] Nurse PractitionerFamily Medicine11/09/22Team MemberRelationshipSpecialtyStart End Jose Putnam, [address] [place] [address] PCP - GeneralFamily Medicine11/09/22 Jeanine Whitlock, PERSONAL INSURANCE ADVISOR [address] [place] [address] Nurse PractitionerFamily Medicine11/09/22Team MemberRelationshipSpecialtyStart End Jose Putnam, [address] [place] [address] PCP - GeneralFamily Medicine11/09/22 Jeanine Whitlock, PERSONAL INSURANCE ADVISOR [address] [place] [address] Nurse PractitionerFailly Medicine11/09/22Te MemberRelationshipSpecialtyStart End Jose Putnam, [address] [place] [address] PCP - GeneralFamily Medicine11/09/22 Jeanine Whitlock, PERSONAL INSURANCE ADVISOR [address] [place] [address] [facility] Medicine11/09/22Te MemberRelationshipSpecialtyStart End Jose Putnam, [address] [place] [address] PCP - GeneralFamily Medicine11/09/22 Jeanine Whitlock, PERSONAL INSURANCE ADVISOR [address] [place] [address] [facility] Pract[facility] Medicine11/09/22Te MemberRelationshipSpecialtyStart End Jose Putnam, DO [address] [place] [address] PCP - GeneralFamily Medicine11/09/22 Jeanine Whitlock, PERSONAL INSURANCE ADVISOR [address] [place] [address] Nurse Pract[facility] Medicine11/09/22Te MemberRelationshipSpecialtyStart End Jose Putnam, DO [address] [place] [address] PCP - GeneralFamily Medicine11/09/22 Jeanine Whitlock, PERSONAL INSURANCE ADVISOR [address] [place] [address] Nurse Pract[facility] Medicine11/09/22Team MemberRelationshipSpecialtyStart DateEnd Jose Putnam, DO [address] [place] [address] PCP - GeneralFamily Medicine11/09/22 Jeanine Whitlock, PERSONAL INSURANCE ADVISOR [address] [place] [address] Nurse Pract[facility]11/09/22Team MemberRelationshipSpecialtyStart DateEnd Date Jose Puntam, DO [address] [place] [address] PCP - Generalmily Medicine11/09/22 Jeanine Whitlock, PERSONAL INSURANCE ADVISOR [address] [place] [address] Nurse PractitionerS[facility]11/09/22Team MemberRelationshipSpecialtyStart DateEnd Date Jose Putnam, DO [address] [place] [address] PCP - GeneralFamily Medicine11/09/22 Jeanine Whitlock, PERSONAL INSURANCE ADVISOR [address] [place] [address] Nurse PractitionerS[facility]11/09/22Team MemberRelationshipSpecialtyStart DateEnd Jose Putnam, DO [address] [place] [address] PCP - GeneralFamily Medicine11/09/22 Jeanine Whitlock, PERSONAL INSURANCE ADVISOR [address] [place] [address] Nurse PractitionerFamily Medicine11/09/22Team MemberRelationshipSpecialtyStart DateEnd Jose Putnam, [address] [place] [address] PCP - GeneralFamily Medicine11/09/22 Jeanine Whitlock, PERSONAL INSURANCE ADVISOR [address] [place] [address] Nurse PractitionerFailly Medicine11/09/22Team MemberRelationshipSpecialtyStart DateEnd Jose Putnam, [address] [place] [address] PCP - GeneralFamily Medicine11/09/22 Jeanine Whitlock, PERSONAL INSURANCE ADVISOR [address] [place] [address] Nurse PractitionerFailly Medicine11/09/22Team MemberRelationshipSpecialtyStart End Jose Putnam, [address] [place] [address] PCP - GeneralFamily Medicine11/09/22 Jeanine Whitlock, PERSONAL INSURANCE ADVISOR [address] [place] [address] Nurse PractitionerFailly Medicine11/09/22Team MemberRelationshipSpecialtyStart End Jose Putnam, [address] [place] [address] PCP - GeneralFamily Medicine11/09/22 Jeanine Whitlock, PERSONAL INSURANCE ADVISOR [address] [place] [address] Nurse PractitionerFamily Medicine11/09/22Team MemberRelationshipSpecialtyStart DateEnd Date Jose Putnam, DO [address] [place] [address] PCP - GeneralFamily Medicine11/09/22 Jeanine Whitlock, PERSONAL INSURANCE ADVISOR [address] [place] [address] Nurse PractitionerFamily Medicine11/09/22Team MemberRelationshipSpecialtyStart DateEnd Date Jeanine Whitlock, INSURANCE ANALYST - PERSONAL INSURANCE ADVISOR [address] [place] [address] PCP - Blqoywk28/14/16Team MemberRelationshipSpecialtyStart DateEnd Date Jose Putnam, DO [address] [place] [address] PCP - GeneralFamily Medicine11/09/22 Jeanine Whitlock, PERSONAL INSURANCE ADVISOR [address] [place] [address] Nurse PractitionerFamily Medicine11/09/22Team MemberRelationshipSpecialtyStart DateEnd Date Jeanine Whitlock, INSURANCE ANALYST - PERSONAL INSURANCE ADVISOR [address] [place] [address] PCP - Hiwrrsk76/14/16Team MemberRelationshipSpecialtyStart DateEnd Date Jose Putnam, [address] [place] [address] PCP - GeneralFamily Medicine11/09/22 Jeanine Whitlock, PERSONAL INSURANCE ADVISOR [address] [place] [address] Nurse Pract[facility] Medicine11/09/22Te MemberRelationshipSpecialtyStart DateEnd Date Jose Putnam, [address] [place] [address] PCP - GeneralP[facility]roke Hospital Medicine11/09/22 Jeanine Whitlock, PERSONAL INSURANCE ADVISOR [address] [place] [address] Nurse Pract[facility] Medicine11/09/22Te MemberRelationshipSpecialtyStart DateEnd Date Jose Putnam, [address] [place] [address] PCP - GeneralP[facility]roke Hospital Medicine11/09/22 Jeanine Whitlock, PERSONAL INSURANCE ADVISOR [address] [place] [address] Nurse Pract[facility] Medicine11/09/22Te MemberRelationshipSpecialtyStart DateEnd Date Jose Putnam, DO [address] [place] [address] PCP - GeneralP[facility]roke Hospital Medicine11/09/22 Jeanine Whitlock, PERSONAL INSURANCE ADVISOR [address] [place] [address] Nurse PractitionerFamily Medicine11/09/22Team MemberRelationshipSpecialtyStart DateEnd Jose Putnam, [address] [place] [address] PCP - GeneralFamily Medicine11/09/22 Jeanine Whitlock, PERSONAL INSURANCE ADVISOR [address] [place] [address] Nurse PractitionerCommunity [facility] Hospitally Medicine11/09/22Team MemberRelationshipSpecialtyStart DateEnd Date Jose Putnam, [address] [place] [address] PCP - GeneralFamily Medicine11/09/22 Jeanine Whitlock, PERSONAL INSURANCE ADVISOR [address] [place] [address] Nurse PractitionerCommunity [facility] Hospitally Medicine11/09/22Team MemberRelationshipSpecialtyStart DateEnd Date Jose Putnam, [address] [place] [address] PCP - GeneralFamily Medicine11/09/22 Jeanine Whitlock, PERSONAL INSURANCE ADVISOR [address] [place] [address] Nurse PractitionerCommunity [facility]ally Medicine11/09/22Team MemberRelationshipSpecialtyStart DateEnd Date Jose Putnam, [address] [place] [address] PCP - GeneralFamily Medicine11/09/22 Jeanine Whitlock, PERSONAL INSURANCE ADVISOR [address] [place] [address] Nurse PractitionerFamily Medicine11/09/22Team MemberRelationshipSpecialtyStart DateEnd Date Jose Putnam, [address] [place] [address] PCP - GeneralFamily Medicine11/09/22 Jeanine Whitlock, PERSONAL INSURANCE ADVISOR [address] [place] [address] Nurse PractitionerCommunity [facility] Hospitally Medicine11/09/22Team MemberRelationshipSpecialtyStart DateEnd Date Jose Putnam, [address] [place] [address] PCP - Generalmily Medicine11/09/22 Jeanine Whitlock, PERSONAL INSURANCE ADVISOR [address] [place] [address] Nurse PractitionerFailly Medicine11/09/22Team MemberRelationshipSpecialtyStart DateEnd Date Jeanine Whitlock, INSURANCE ANALYST - PERSONAL INSURANCE ADVISOR [address] [place] [address] PCP - Mgcpnts18/14/16Team MemberRelationshipSpecialtyStart DateEnd Date Jeanine Whitlock, INSURANCE ANALYST - PERSONAL INSURANCE ADVISOR [address] [place] [address] PCP - Pxmqmtj44/14/16Team MemberRelationshipSpecialtyStart DateEnd Date Jeanine Whitlock, INSURANCE ANALYST - PERSONAL INSURANCE ADVISOR [address] [place] [address] PCP - Gshtvad02/14/16Team MemberRelationshipSpecialtyStart DateEnd Date Jose Putnam, [address] [place] [address] PCP - [facility] Hospital Medicine11/09/22 Jeanine Whitlock, PERSONAL INSURANCE ADVISOR [address] [place] [address] Nurse PractitionerSoutheast [facility]11/09/22Te MemberRelationshipSpecialtyStart DateEnd Date Jose Putnam, DO [address] [place] [address] PCP - [facility]11/09/22 Jeanine Whitlock, PERSONAL INSURANCE ADVISOR [address] [place] [address] PCP - [facility] [employer] Jeanine Whitlock, PERSONAL INSURANCE ADVISOR [address] [place] [address] Nurse PractitionerS[facility]11/09/22Te MemberRelationshipSpecialtyStart DateEnd Date Jeanine Whitlock, INSURANCE ANALYST - PERSONAL INSURANCE ADVISOR [address] [place] [address] PCP - Jbdsbos07/14/16Team MemberRelationshipSpecialtyStart DateEnd Date Jose Putnam, [address] [place] [address] PCP - [facility]11/09/22 Jeanine Whitlock, PERSONAL INSURANCE ADVISOR [address] [place] [address] Nurse PractitionerFamily Medicine11/09/22 Reason for Visit (unrecogniz ed section and content) SpecialtyDiagnoses / ProceduresReferred By ContactReferred To ContactRadiology Diagnoses Age-related osteoporosis without current pathological fracture Procedures DEXA BONE DENSITY 2 SITES DEXA BONE DENSITY AXIAL SKELETON Tyler Tran MD [address] [place] [address] Referral IDStatusReasonStart DateExpiration DateVisits RequestedVisits [id number] Exam ReasonOnset DateCommentsupdate on dexcom and blood ztctey7303/10/2024New Medication drfptie65/08/2024ReasonCommentsMed RefillReasonOnset DateCommentsMed Tkowpe834ReasonCommentsSkin CheckReasonCommentsHospital Follow-upHad bunion surgery and they straightened her big toe and then while in surgery her blood pressure dropped and received fluids and the BP stabilized and then she didn't take all of her medication the next few days. Noticed red spot on right breast denies lump or painful or itchyReasonOnset DateComments Vaginitis/Bacterial Ledhnaxmb03/27/2024ReasonCommentsSleeping ProblemReasonOnset ZpyiYpsqoqfzHfosxrbz43/14/2025[place] Zwkpczd7606/16/2024ReasonCommentsCough Started almost 2 weeks ago, pt states its so bad its hurting my ribs and making me pee Also has a lot of mucous, had fevers the first week, but has resolved, slight nausea this morningHas tried OTC meds but its not going awayReasonOnset DateCommentsMed Hbdpaf3308/26/2024ReasonCommentsDiabetes Follow upReasonOnset Date CommentsMed Fzirfl2010/14/2024ReasonOnset DateCommentscontinuous glucose monitor 11/13/2024ReasonCommentsMed Change RequestReasonOnset DateCommentsMed Refill 12/31/2024ReasonCommentsDiabetic follow upReasonOnset DateCommentswrong pharmacy 02/17/2025ReasonCommentsDiabetes MellitusNEW REF LAB 02/19/25 A1C 7.2%Specialty Diagnoses / ProceduresReferred By ContactReferred To ContactEndocrinology Diagnoses Type 2 diabetes mellitus with hyperglycemia, with long-term current use of insulin (HCC) Procedures SD OFFICE/OUTPATIENT NEW HIGH MDM 60 MINUTES Jeanine Whitlock NP [address] [place] [address] Phone: tel: fax: Jamie Schwartz MD [address] [facility], [facility] [address] [place] [address] Phone: tel: fax: Referral IDStatusReasonStart DateExpiration DateVisits RequestedVisits [id number] Specialty Services Required /[id number] DateCommentsMed Ubyhiv3703/16/2025ReasonComments Annual Exam Scheduled Active and Recently Administ [...] = 1.5cc/kg/hr If no LVEDP obtained, ask manager of broadcast content for fluid rate and volume to be given in recovery. -Fluids will be infused over a minimum of 2 hours. Rate shall not exceed 500 cc/hr. Ask manager of broadcast content for fluid volume total to be infused. -If GFR is less than 30, fluids will be infused over a minimum of 3hours. -In case of reduced EF, CHF, etc., consult manager of broadcast content for rate and volume to be administered., [...] BE BASED ON THE PRIMARY CLINICAL RECORDS. [employer] provides no warranty or guarantee of the accuracy or completeness of information in this document.
--- NOTE | 2025-04-28 11:33 | XR_ITS ---
The [address] [address] Patient Name: AISHWARYA DUNN MRN: [id number] date: 1965 Sex: F Assigned Patient Location: [facility] Current Patient Location: [facility] Accession/Order Number: [id number] Exam Date: 04/28/2025 11:45 Report Date: 04/28/2025 16:16 At the request of: ANA SCHUSTER DPM Procedure: XR foot RT min 3V XR foot RT min 3V 04/28/2025 11:57 AM SIGNS AND SYMPTOMS: ^Pain PROTOCOL: 3 views of the right foot COMPARISON: 10/06/2024 FINDINGS: There is evidence of previous hardware fixation traversing the first metatarsophalangeal joint with fracture of the proximal aspect of the plate. No change in alignment. Severe degenerative changes are noted in the first metatarsophalangeal joint without evidence of bony fusion. There is narrowing of the tarsometatarsal junctions throughout similar to the prior exam. There is plantar and Achilles surface calcaneal spurring. XR/XR foot RT min 3V IMPRESSION: There is evidence of previous hardware fixation traversing the first metatarsophalangeal joint with fracture of the proximal aspect of the plate. No change in alignment. Severe degenerative changes are noted in the first metatarsophalangeal joint without evidence of bony fusion. Impression dictated by: Lemuel Williamson M.D. 04/28/2025 4:16 PM Dictation Location: [place] [address] Electronically authenticated by: [id number] Date: 04/28/2025 16:16
== END 2025-04-28 11:19 | disposition home or self-care (01) ==
LOC: RAD 11:19
PROVIDERS: PCP Nurse Practitioner; Visit Provider Podiatrist Foot & Ankle Surgery
DX: M79.671 Pain in right foot (principal)
CPT/HCPCS: 73630

== ENCOUNTER 2025-05-04 08:00 | Day surgery (SDC) | payer OTHER, SELFPAY ==
[2025-04-23 14:00] VITALS: BP 117/73; PULSE 61; TEMP 36.3; O2SAT 96; BMI 39.9
--- OUTSIDE RECORDS SUMMARY | 2025-05-03 09:00 | XMS_ITS | Encounter Summary ---
Author Organization [facility] Address [address] [place] [address] Care Team Providers Care Tube Fitter Name Role Phone IndyJose ferrell [place] Primary Care Provider Jeanine Rao HOT STAMP OPERATOR Unavailable Reason for Visit * ReasonCommentsFollow-up Encounter Details DateTypeDepartmentCare Team (Latest Contact Info)Morvwhuejvv72/01/2025 9:00 AM ESTOffice Visit [facility] [address] [place] [id number] Jeanine Rao NP [address] [place] [address] Type 2 diabetes mellitus with hyperglycemia, without long-term current use of insulin (HCC) (Primary Dx); Pure hypercholesterolemia; Pain in right foot; Pharyngoesophageal dysphagia; Encounter for screening mammogram for malignant neoplasm of breast; Nocturnal hypoxia Social History Tobacco UseTypesPacks/DayYears UsedDateSmoking Tobacco: NeverSmokeless [...] times a week01/22/2024How often do you attend buddhism or sikhism services?More than 4 times per year01/22/2024o you [...] heating?Somewhat hard 01/22/2024HQ-2AnswerDate RecordedPatient Health Questionnaire-2 Score2 03/23/2025[facility] [place] of Occupational Health - Occupational Stress QuestionnaireAnswerDate [...] homeless or living in a fci (including now)? No01/22/2024CommentsNoSex and Gender InformationValueDate RecordedSex Assigned at TpgnhUyrlae65/16/2023 9:54 AM EDTLegal JmnJnypmr57/15/2023 6:42 PM EDTGender ZatvmserRmzpvj15/15/2023 6:42 PM EDTSexual OrientationNot on file documented as of this encounter Last Filed Vital Signs Vital SignReadingTime TakenCommentsBlood Snewkawk601/7205/03/2025 9:11 AM EST Dauyu895105/03/2025 9:11 AM ZFCNwvfqiabtng67.7 ??C (98.1 ??F)05/03/2025 9:11 AM ESTRespiratory Oaii347807/04/2024 9:11 AM ESTOxygen Nxquscmynk58%05/03/2025 9:11 AM ESTInhaled Oxygen Concentration--Khgagi468 kg (225 lb 12.8 oz)05/03/2025 9:11 AM GLBVezpnm994 cm (5' 3 )05/03/2025 9:11 AM ESTBody Mass Fbecs992805/03/2025 9:11 AM ESTdocumented in this encounter Patient Instructions * Patient Instructions* Jeanine Rao NP - 05/03/2025 9:00 AM EST Surgery tomorrow with dr sanon at [facility] When it arrives , stop the atorvastatin and start rosuvastatin 10mg for the purpose of being more brain friendly Consider covid vaccine when 3-4 mo from previous Call if you do not hear from the speech therapists Schedule screening mammo after jun 12 Hemoglobin aic on / after jun 23 documented in this encounter Progress Notes * Jeanine Rao NP - 05/03/2025 9:00 AM EST Images from the original note were not included. Nadeen Aguila is a 59 y.o. female presents with chief complaint of Follow-up HPI: HPI ..The patient was advised that Artificial Intelligence will be utilized during this visit to record, process the conversation to generate a clinical note,. The patient consented to the use of AI, including the recording. . History of Present Illness The patient presents for preoperative evaluation, hyperlipidemia, diabetes mellitus, dysphagia, andsuspected urinary tract infection. Preoperative Evaluation for Right Foot Surgery She is scheduled for right foot surgery tomorrow by Dr. Sanon at [facility] to remove broken hardware and possibly graft bone from her ankle to reconstruct a toe. She is anxious about thecomplex procedure. She uses a CGM to manage blood sugar perioperatively. She has an appointment with Dr. Sanon in 09/2025. She received her influenza vaccine but is uncertain about her COVID- 19 vaccination status. She contracted COVID-19 three times, delaying her surgery in 02/2025. No edema reported. Hyperlipidemia She adheres to her statin regimen, contributing to satisfactory cholesterol levels. She needs a refill of atorvastatin. Diabetes Mellitus She uses a CGM to manage blood sugar perioperatively. Dysphagia Underwent a swallow study and was referred to speech therapy but has not had sessions yet. Reports difficulty swallowing solids and liquids, with food getting caught by her epiglottis. No recent ENT consultation. - Suspected Urinary Tract Infection Experienced urinary incontinence yesterday due to delayed urination. No dysuria, fever, or recent bowel issues. Considering a UTI test due to history of asymptomatic UTIs. Sleep She uses a CPAP machine with supplemental oxygen during sleep and naps but is uncertain about its efficacy. Reports persistent fatigue and average oxygen saturation of 88 without supplemental oxygen.Interested in repeating the test to assess supplemental oxygen effectiveness. Working with [facility] for durable medical equipment needs. Satisfied with current medications, Cymbalta and Lexapro. PAST SURGICAL HISTORY: - Two previous foot surgeries - Heart catheterization on 04/08/2025 - Upper GI on 03/12/2025 - Swallow study on 03/26/2025 FAMILY HISTORY Her mother and maternal grandmother had problems with dementia. History of Present Illness SUBJECTIVE: MEDICATIONS: Current Outpatient Medications Medication Instructions alendronate (FOSAMAX) 70 mg, Every 7 days ALPRAZolam (XANAX) 0.25 mg, Nightly PRN amLODIPine (NORVASC) 5 mg, Oral, Every morning ARIPiprazole (ABILIFY) 5 mg, Daily Ascorbic Acid (Vitamin C) 500 MG capsule Every 24 hours aspirin 81 mg, Daily B Complex Vitamins (B COMPLEX 1 PO) bisoprolol (ZEBETA) 10 mg, Oral, Every morning chlorthalidone (Hygroton) 50 MG tablet TAKE 1 TABLET EVERY MORNINGWITH FOOD Continuous Glucose Sensor (Dexcom G7 Sensor) misc USE DIRECTED AND CHANGE EVERY 14 DAYS Continuous Glucose Sensor (Dexcom G7 Sensor) misc 1 Units, Does not apply, Every 14 days DULoxetine (CYMBALTA) 60 mg, Daily escitalopram (LEXAPRO) [...] Weekly pioglitazone (ACTOS) 15 mg, Oral, Daily rosuvastatin (CRESTOR) 10 mg, Oral, Daily Synthroid 100 MCG [...] Positive for fatigue. Negative for activity change. She does have oxygen 2 liters per nasal cannula , unsure if this makes a difference Eyes: Negative for visual disturbance. Respiratory: Negative for cough and wheezing. Cardiovascular: Negative for chest pain and leg swelling. Gastrointestinal: Negative for abdominal pain. Swallowing issues Genitourinary: Negative for difficulty urinating. Musculoskeletal: Positive for arthralgias. Right foot /ankle surgery tomorrow with dr sanon Neurological: Negative for weakness. Psychiatric/Behavioral: Negative. Allergic/Immunologic: Negative for environmental allergies. OBJECTIVE: Visit Vitals BP 100/72 (BP Location: Left arm, Patient Position: Sitting, BP Cuff Size: Adult) Pulse 71 Temp 98.1 ??F (Tympanic) Resp 18 Ht 5' 3 Wt 225 lb 12.8 oz SpO2 99% BMI 40.00 kg/m?? OB Status Hysterectomy Smoking Status Never BSA 2.13 m?? Physical Exam Constitutional: Appearance: Normal appearance. Eyes: [...] Mood normal. Comments: Alert and interactive Wt down 1 pound Rev the cardio kimberlyn consult visit of 03-31-25 Rev heart cath of 04-08-25. No signif cad Rev 04-12-25 barium swallow study Rev 04-26-25 swallow study ASSESSMENT AND PLAN: Assessment/Plan Diagnoses and all orders for this visit: Type 2 diabetes mellitus with hyperglycemia, without long-term current use of insulin (HCC) Comments: aic was 7.7% on 03-23-25, cgm shows 7.3% Orders: - Continuous Glucose Sensor (Dexcom G7 Sensor) misc; 1 Units every 14 (fourteen) days - Hemoglobin A1c; Future Pure hypercholesterolemia Comments: good control, plant based diet and daily exercise recommended Orders: - rosuvastatin (Crestor) 10 MG tablet; Take 1 tablet (10 mg) by mouth Daily Pain in right foot Comments: plan is for surgery tomorrow Pharyngoesophageal dysphagia Comments: call if you do not hear from speech therapy this week Encounter for screening mammogram for malignant neoplasm of breast Comments: due at [facility] on / after jun 12 Orders: - Bilateral screening mammogram; Future Nocturnal hypoxia Comments: we will see about recheck now that she is on the 2 liters at bedtime Other orders - Follow Up In Family Medicine; Future .I have reviewed and reconciled the history, allergies, family history, social history, and the medication list with the patient today. Follow up with Jeanine Rao 2 mo recheck on dm. [1] Allergies Allergen Reactions Iodides Heart Cath [...] Yes Drug use: Never documented in this encounter Plan of Treatment DateTypeDepartmentCare Team (Latest Contact Info)Ewbwsfnckmh37/15/2025 2:20 PM ESTOffice Visit [facility] [address] [place] [phone] Jamie Schwartz MD [address] [place] [address] 05/19/2025 11:30 AM ESTEducation [facility] [address] [place] [address] Cristina Escalante, HOT STAMP OPERATOR [address] [place] [address] 06/30/2025 10:00 AM ESTOffice Visit [facility] [address] [place] [address] Jeanine Rao NP [address] [place] [address] 04/05/2026 10:00 AM ESTOffice Visit [facility] [address] [place] [address] Amalia Cheng, PA [address] [place] [address] NameTypePriorityAssociated DiagnosesOrder ScheduleBilateral screening mammogram ImagingToday Encounter for screening mammogram for malignant neoplasm of breast Expected: 06/14/2025 (Approximate), Expires: 09/12/2025Hemoglobin B7uLelTfhoy Type 2 diabetes mellitus with hyperglycemia, without long-term current use of insulin (HCC) Expected: 06/23/2025 (Approximate), Expires: 09/21/2025documented as of this encounter Visit Diagnoses Diagnosis Type 2 diabetes mellitus with hyperglycemia, without long-term current use of insulin (HCC)- Primary Pure hypercholesterolemia Pain in right foot Pain in soft tissues of limb Pharyngoesophageal dysphagia Dysphagia, pharyngoesophageal phase Encounter for screening mammogram for malignant neoplasm of breast Nocturnal hypoxia documented in this encounter Additional Health Concerns AssessmentNoted TimePHQ-9 Depression Total Score: 9:10 AM EDT documented as of this encounter Care Teams Team MemberRelationshipSpecialtyStart DateEnd Date Jose Putnam DO [address] [place] [address] PCP - GeneralFamily Medicine11/09/22 Jeanine Rao NP [address] [place], [place] [id number] Nurse PractitionerFaphaneuf hospital Medicine11/09/22documented as of this encounter
[2025-05-04] VITALS (13 sets, daily range): BP systolic 106–144; BP diastolic 54–103; PULSE 60–79; TEMP 36.3–36.7; O2SAT 89–94; BMI 40.4
--- NOTE | 2025-05-04 | FL_ITS ---
[address] [address] Patient Name: AISHWARYA DUNN MRN: [id number] date: 1965 Sex: F Assigned Patient Location: [facility] Current Patient Location: [place] Accession/Order Number: [id number] Exam Date: 05/04/2025 10:00 Report Date: 05/04/2025 14:18 At the request of: ANA SCHUSTER DPM Procedure: FL fluoroscopy <1hr NON-READ Intraoperative study. Reason for exam: Right MPJ fusion revision Findings: 17 images were obtained intraoperatively. Hardware was placed 55.4 seconds of fluoroscopic time was utilized. FL/FL fluoroscopy <1hr NON-READ Impression: Intraoperative study. Impression dictated by: Dudley Hollins Jr., D.O. 05/04/2025 2:18 PM Dictation Location: [place] [address] Electronically authenticated by: [id number] Y Date: 05/04/2025 14:18
--- OUTSIDE RECORDS SUMMARY | 2025-05-04 08:03 | XMS_ITS | Encounter Summary ---
Author Organization [facility] Address [address] [place] [address] Care Team Providers Care Manager Military Name Role Phone IndyJose yu Primary Care Provider +1- [phone] Jeanine Rao CAPTAIN WAITER/WAITRESS Unavailable Encounter Details DateTypeDepartmentCare Team (Latest Contact Info)Mqpbglsfhwc19/01/2025bstract [facility] [address] [place] [address] Jeanine Rao, CAPTAIN WAITER/WAITRESS [address] [place] [address] Social History Tobacco UseTypesPacks/DayYears UsedDateSmoking [...] times a week01/22/2024How often do you attend jain or latter day services?More than 4 times per year4Do you belong to any clubs or organizations such as jain groups, unions, fraternal or athletic groups, or [...] heating?Somewhat hard 01/22/2024HQ-2AnswerDate RecordedPatient Health Questionnaire-2 Score2 03/23/2025[facility] [place] of Occupational Health - Occupational Stress QuestionnaireAnswerDate [...] No01/22/2024CommentsNoSex and Gender InformationValueDate RecordedSex Assigned at OenvnRqtklp41/16/2023 9:54 AM EDTLegal CwlUiiluu81/15/2023 6:42 PM EDTGender OtuxwdyaIdvbvd89/15/2023 6:42 PM EDTSexual OrientationNot on file documented as of this encounter Plan of Treatment DateTypeDepartmentCare Team (Latest Contact Info)Alkudvnfidc67/15/2025 2:20 PM ESTOffice Visit [facility] [address] [place] [address] Jamie Schwartz MD [address] [place] [address] 05/19/2025 11:30 AM ESTEducation [facility] [address] [place] [address] Cristina Escalante, CAPTAIN WAITER/WAITRESS [address] [place], [place] [id number] 06/30/2025 10:00 AM ESTOffice Visit [facility] [address] [place] [address] Jeanine Rao NP [address] [place] [address] 04/05/2026 10:00 AM ESTOffice Visit [facility] [address] [place] [address] Amalia Cheng, PA [address] [place] [address] documented as of this encounter Visit Diagnoses Not on filedocumented in this encounter Additional Health Concerns AssessmentNoted TimePHQ-9 Depression Total Score: 9:10 AM EDT documented as of this encounter Care Teams Team MemberRelationshipSpecialtyStart DateEnd Date Jose Putnam DO [address] [place] [address] PCP - GeneralFamily Medicine11/09/22 Jeanine Rao NP [address] [place] [address] Nurse PractitionerFamily Medicine11/09/22documented as of this encounter
--- OUTSIDE RECORDS SUMMARY | 2025-05-04 08:03 | XMS_ITS | Encounter Summary ---
Author Organization [facility] Address [address] [place] [address] Care Team Providers Care Emergency Medical Dispatcher Name Role Phone IndyJose yu Primary Care Provider [phone]- [phone] Jeanine Rao MORTGAGE CONSULTANT Unavailable Encounter Details DateTypeDepartmentCare Team (Latest Contact Info)Pctzxsurshb59/25/2025bstract [facility] [address] [place] [address] Jeanine Rao, MORTGAGE CONSULTANT [address] [place] [address] Social History Tobacco UseTypesPacks/DayYears UsedDateSmoking [...] times a week01/22/2024How often do you attend mu-ism or sikhism services?More than 4 times per year4Do you belong to any clubs or organizations such as mu-ism groups, unions, fraternal or athletic groups, or [...] hard 01/22/2024HQ-2AnswerDate RecordedPatient Health Questionnaire-2 Score2 03/23/2025[facility] [place] of Occupational Health - Occupational Stress QuestionnaireAnswerDate [...] No01/22/2024CommentsNoSex and Gender InformationValueDate RecordedSex Assigned at GlxveYethor00/16/2023 9:54 AM EDTLegal EwmAmmqyz85/15/2023 6:42 PM EDTGender BudbzztiLuhmol65/15/2023 6:42 PM EDTSexual OrientationNot on file documented as of this encounter Plan of Treatment DateTypeDepartmentCare Team (Latest Contact Info)Vtkiveyfzub33/15/2025 2:20 PM ESTOffice Visit [facility] [address] [place] [address] Jamie Schwartz MD [address] [place] [address] 05/19/2025 11:30 AM ESTEducation [facility] [address] [place] [address] Cristina Escalante, MORTGAGE CONSULTANT [address] [place], [place] [phone] 06/30/2025 10:00 AM ESTOffice Visit [facility] [address] [place] [address] Jeanine Rao NP [address] [place] [address] 04/05/2026 10:00 AM ESTOffice Visit [facility] [address] [place] [address] Amalia Cheng, PA [address] [place] [address] documented as of this encounter Visit Diagnoses Not on filedocumented in this encounter Additional Health Concerns AssessmentNoted TimePHQ-9 Depression Total Score: 9:10 AM EDT documented as of this encounter Care Teams Team MemberRelationshipSpecialtyStart DateEnd Date Jose Putnam DO [address] [place] [address] PCP - GeneralFamily Medicine11/09/22 Jeanine Rao NP [address] [place] [address] Nurse PractitionerFamily Medicine11/09/22documented as of this encounter
--- OUTSIDE RECORDS SUMMARY | 2025-05-04 08:03 | XMS_ITS | Encounter Summary ---
Author Organization [facility] Address [address] [place] [address] Care Team Providers Care Plastic Mould Maker Name Role Phone IndyJose yu [place] Primary Care Provider [phone]- [phone] Jeanine Rao BRAILLE TRANSCRIBER Unavailable Reason for Visit * ReasonOnset DateCommentsCare Owobufzhxzwn29/24/2025 Encounter Details DateTypeDepartmentCare Team (Latest Contact Info)Oziddhmaiiu32/24/2025Results [facility] [address] [place] [address] Jeanine Rao, BRAILLE TRANSCRIBER [address] [place] [address] FL MODIFIED BARIUM SWALLOW W VIDEO Social History Tobacco UseTypesPacks/DayYears UsedDateSmoking Tobacco: NeverSmokeless [...] times a week01/22/2024How often do you attend amish or taoist services?More than 4 times per year01/22/2024o you belong to any clubs or organizations such as amish groups, unions, fraternal or athletic groups, or [...] heating?Somewhat hard 01/22/2024HQ-2AnswerDate RecordedPatient Health Questionnaire-2 Score2 03/23/2025[facility] [place] of Occupational Health - Occupational Stress QuestionnaireAnswerDate [...] homeless or living in a halfway (including now)? No01/22/2024CommentsNoSex and Gender InformationValueDate RecordedSex Assigned at TlwahJgzdjh20/16/2023 9:54 AM EDTLegal AugJpychj00/15/2023 6:42 PM EDTGender NngljlfhAvilst55/15/2023 6:42 PM EDTSexual OrientationNot on file documented as of this encounter Miscellaneous Notes * Telephone Encounter - Amy Ng LPN - 04/27/2025 6:15 AM EST Obtained off [employer] * Telephone Encounter - Jeanine Rao NP - 04/26/2025 5:13 PM EST Can we see about getting the speech pathologists report on he swallow study documented in this encounter Plan of Treatment DateTypeDepartmentCare Team (Latest Contact Info)Csmmwnltfyc67/15/2025 2:20 PM ESTOffice Visit [facility] [address] [place] [address] Jamie Schwartz MD [address] [place] [address] 05/19/2025 11:30 AM ESTEducation [facility] [address] [place] [address] Cristina Escalante, BRAILLE TRANSCRIBER [address] [place] [address] 06/30/2025 10:00 AM ESTOffice Visit [facility] [address] [place] [address] Jeanine Rao, BRAILLE TRANSCRIBER [address] [place], [place] [address] 04/05/2026 10:00 AM ESTOffice Visit [facility] [address] [place] [address] Amalia Cheng, PA [address] [place], [place] [id number] documented as of this encounter Visit Diagnoses Not on filedocumented in this encounter Additional Health Concerns AssessmentNoted TimePHQ-9 Depression Total Score: 9:10 AM EDT documented as of this encounter Care Teams Team MemberRelationshipSpecialtyStart DateEnd Date Jose Putnam DO [address] [place], [place] [id number] PCP - GeneralFamily Medicine11/09/22 Jeanine Rao, BRAILLE TRANSCRIBER [address] [place], [place] [address] Nurse PractitionerFamily Medicine11/09/22documented as of this encounter
--- OUTSIDE RECORDS SUMMARY | 2025-05-04 08:03 | XMS_ITS | Encounter Summary ---
Author Organization [facility] Address [address] [place] [address] Care Team Providers Care Geochemical Laboratory Technician Name Role Phone IndyJose yu Primary Care Provider +1- [phone] Jeanine Rao BELT LOOP CUTTER Unavailable Encounter Details DateTypeDepartmentCare Team (Latest Contact Info)Atnlewrtxvo31/01/2025bstract [facility] [address] [place] [address] Jeanine Rao, BELT LOOP CUTTER [address] [place] [address] Social History Tobacco UseTypesPacks/DayYears UsedDateSmoking [...] times a week01/22/2024How often do you attend jewish or mandaeism services?More than 4 times per year4Do you belong to any clubs or organizations such as jewish groups, unions, fraternal or athletic groups, or [...] heating?Somewhat hard 01/22/2024HQ-2AnswerDate RecordedPatient Health Questionnaire-2 Score2 03/23/2025[facility] [place] of Occupational Health - Occupational Stress QuestionnaireAnswerDate [...] No01/22/2024CommentsNoSex and Gender InformationValueDate RecordedSex Assigned at SqnuhEdlatr24/16/2023 9:54 AM EDTLegal OjhDeaplw97/15/2023 6:42 PM EDTGender AdhlomntQcuaqf47/15/2023 6:42 PM EDTSexual OrientationNot on file documented as of this encounter Plan of Treatment DateTypeDepartmentCare Team (Latest Contact Info)Qcdzcozyrew61/15/2025 2:20 PM ESTOffice Visit [facility] [address] [place] [address] Jamie Schwartz MD [address] [place] [address] 05/19/2025 11:30 AM ESTEducation [facility] [address] [place] [address] Cristina Escalante, BELT LOOP CUTTER [address] [place], [place] [id number] 06/30/2025 10:00 AM ESTOffice Visit [facility] [address] [place] [address] Jeanine Rao NP [address] [place] [address] 04/05/2026 10:00 AM ESTOffice Visit [facility] [address] [place] [address] Amalia Cheng, PA [address] [place] [address] documented as of this encounter Visit Diagnoses Not on filedocumented in this encounter Additional Health Concerns AssessmentNoted TimePHQ-9 Depression Total Score: 9:10 AM EDT documented as of this encounter Care Teams Team MemberRelationshipSpecialtyStart DateEnd Date Jose Putnam DO [address] [place] [address] PCP - GeneralFamily Medicine11/09/22 Jeanine Rao NP [address] [place] [address] Nurse PractitionerFamily Medicine11/09/22documented as of this encounter
--- OUTSIDE RECORDS SUMMARY | 2025-05-04 08:03 | XMS_ITS | Encounter Summary ---
Author Organization [facility] Address [address] [place] [address] Care Team Providers Care Fishery Biologist Name Role Phone Jose Putnam DO Primary Care Provider [phone] Jeanine Rao ROBOTIC TOY INVENTOR Unavailable Encounter Details DateTypeDepartmentCare Team (Latest Contact Info)Hlplhaupipa41/01/2025Travel Social History Tobacco UseTypesPacks/DayYears UsedDateSmoking Tobacco: NeverSmokeless [...] times a week01/22/2024How often do you attend faith or restorationism services?More than 4 times per year4Do you belong to any clubs or organizations such as faith groups, unions, fraternal or athletic groups, or school groups?Yes01/22/2024How often do you attend meetings of the clubs or organizations you belong to?More than 4 times per year4Are you , , , , never , [...] heating?Somewhat hard 01/22/2024HQ-2AnswerDate RecordedPatient Health Questionnaire-2 Score2 03/23/2025[facility] [place] [facility] - Occupational Stress QuestionnaireAnswerDate [...] were you homeless or living in a half-way (including now)? No4CommentsNoSex and Gender InformationValueDate RecordedSex Assigned at SgvbbEojcas96/16/2023 9:54 AM EDTLegal DqwJpagxv52/15/2023 6:42 PM EDTGender WyhdotkaMxgotk50/15/2023 6:42 PM EDTSexual OrientationNot on file documented as of this encounter Plan of Treatment DateTypeDepartmentCare Team (Latest Contact Info)Liufeewuolw37/15/2025 2:20 PM ESTOffice Visit [facility] [address] [place] [address] Jamie Schwartz MD [address] [place] [address] 05/19/2025 11:30 AM ESTEducation [facility] [address] [place] [address] Cristina Escalante, ROBOTIC TOY INVENTOR [address] [place], [place] [id number] 06/30/2025 10:00 AM ESTOffice Visit [facility] [address] [place] [address] Jeanine Rao ROBOTIC TOY INVENTOR [address] [place] [address] 04/05/2026 10:00 AM ESTOffice Visit [facility] [address] [place] [address] Amalia Cheng, PA [address] [place] [address] documented as of this encounter Visit Diagnoses Not on filedocumented in this encounter Additional Health Concerns AssessmentNoted TimePHQ-9 Depression Total Score: 9:10 AM EDT documented as of this encounter Care Teams Team MemberRelationshipSpecialtyStart DateEnd Date Jose Putnam DO [address] [place], [place] [id number] PCP - GeneralFamily Medicine11/09/22 Jeanine Rao NP [address] [place], [place] [id number] Nurse PractitionerFanew [facility] Medicine11/09/22documented as of this encounter
--- OUTSIDE RECORDS SUMMARY | 2025-05-04 08:03 | XMS_ITS | Encounter Summary ---
Author Organization [facility] Address [address] [place] [address] Care Team Providers Care E Business Manager Name Role Phone IndyJose ferrell Ventura MONROE Primary Care Provider [phone] Jeanine Rao CLEANER Unavailable Encounter Details DateTypeDepartmentCare Team (Latest Contact Info)Ghvdhzfqwvj57/24/2025Clinisync Result Encounter [facility] Unsolicited Jeanine Rao, CLEANER [address] [place] [address] Social History Tobacco UseTypesPacks/DayYears UsedDateSmoking [...] times a week01/22/2024How often do you attend rastafari or yazidi services?More than 4 times per year4Do you belong to any clubs or organizations such as rastafari groups, unions, fraternal or athletic groups, or [...] heating?Somewhat hard 01/22/2024HQ-2AnswerDate RecordedPatient Health Questionnaire-2 Score2 03/23/2025[facility] [place] of Occupational Health - Occupational Stress QuestionnaireAnswerDate [...] No01/22/2024CommentsNoSex and Gender InformationValueDate RecordedSex Assigned at LwanoCkigrl03/16/2023 9:54 AM EDTLegal VmbFmasos70/15/2023 6:42 PM EDTGender GxqsfisuSlenhe62/15/2023 6:42 PM EDTSexual OrientationNot on file documented as of this encounter Plan of Treatment DateTypeDepartmentCare Team (Latest Contact Info)Pxiiorawmfc40/15/2025 2:20 PM ESTOffice Visit [facility] [address] [place] [address] Jamie Schwartz MD [address] [place] [address] 05/19/2025 11:30 AM ESTEducation [facility] [address] [place] [address] Cristina Escalante, CLEANER [address] [place] [address] 06/30/2025 10:00 AM ESTOffice Visit [facility] [address] [place] [address] Jeanine Rao NP [address] [place] [address] 04/05/2026 10:00 AM ESTOffice Visit [facility] [address] [place] [address] Amalia Cheng, PA [address] [place] [address] documented as of this encounter Procedures Procedure NamePriorityDate/TimeAssociated DiagnosisCommentsFL MODIFIED BARIUM SWALLOW W VIDEO04/26/2025 1:52 PM EST documented in this encounter Results * [place] MODIFIED BARIUM SWALLOW W VIDEO (04/26/2025 1:52 PM EST)Anatomical Region LateralityModalityOtherSpecimen (Source)Anatomical Location / Laterality Collection Method / VolumeCollection TimeReceived Time04/26/2025 1:52 PM EST Narrative 04/26/2025 1:56 PM EST EXAMINATION: MODIFIED BARIUM SWALLOW WAS PERFORMED IN CONJUNCTION WITH SPEECH PATHOLOGY SERVICES TECHNIQUE: Under fluoroscopic evaluation cineradiography/videoradiography recordings were performed in conjunction with the speech-language pathologist (BACK UP MACHINE OPERATOR). Various liquid, solid and/or semi-solid barium preparations were used to assess swallowing function. FLUOROSCOPY DOSE AND TYPE: Radiation Exposure Index: Kerma mGy, 7.8 COMPARISON: None HISTORY: ORDERING SYSTEM PROVIDED HISTORY: Dysphagia, pharyngoesophageal phase FINDINGS: The patient was given thin liquids where there was transient laryngeal penetration that became more consistent throughout the exam. The patient had pureed consistency, soft solids and regular solids without laryngeal penetration or aspiration. ??There was some residue in the vallecula with regular solids that subsequently cleared after multiple swallow attempts. IMPRESSION: 1. There is transient laryngeal penetration with thin liquids. ??No aspiration. Please see separate speech pathology report for full discussion of findings and recommendations. Interpreted by: Brayan Pastrana MD Signed by: Brayan Pastrana MD 04/26/25 Final result Procedure Note Radiology, Radiologist, MD - 04/26/2025 EXAMINATION: MODIFIED BARIUM SWALLOW WAS PERFORMED IN CONJUNCTION WITH SPEECHPATHOLOGY SERVICES TECHNIQUE: Under fluoroscopic evaluation cineradiography/videoradiographyrecordings were performed in conjunction with the speech-language pathologist(BACK UP MACHINE OPERATOR). Various liquid, solid and/or semi-solid barium preparations were used to assess swallowing function. FLUOROSCOPY DOSE AND TYPE: Radiation Exposure Index: Kerma mGy, 7.8 COMPARISON: None HISTORY: ORDERING SYSTEM PROVIDED HISTORY: Dysphagia, pharyngoesophageal phase FINDINGS: The patient was given thin liquids where there was transient laryngeal penetration that became more consistent throughout the exam. The patient had pureed consistency, soft solids and regular solidswithout laryngeal penetration or aspiration. There was some residue in thevallecula with regular solids that subsequently cleared after multiple swallowattempts. IMPRESSION: 1. There is transient laryngeal penetration with thin liquids. Noaspiration. Please see separate speech pathology report for full discussion offindings and recommendations. Interpreted by: Brayan Pastrana MD Signed by: Brayan Pastrana MD 04/26/25 Final result Authorizing ProviderResult TypeResult StatusJeanine Rao NPCLINISYNC IMAGING Final Result documented in this encounter Visit Diagnoses Not on filedocumented in this encounter Additional Health Concerns AssessmentNoted TimePHQ-9 Depression Total Score: 9:10 AM EDT documented as of this encounter Care Teams Team MemberRelationshipSpecialtyStart DateEnd Date Jose Putnam DO [address] [place] [address] PCP - GeneralFamily Medicine11/09/22 Jeanine Rao NP [address] [place], [place] [id number] Nurse PractitionerFamily Medicine11/09/22documented as of this encounter
--- OUTSIDE RECORDS SUMMARY | 2025-05-04 08:03 | XMS_ITS | Encounter Summary ---
Author Organization [facility] Address [address] [place] [address] Care Team Providers Care Manager Division Name Role Phone IndyJose ferrell Ventura MONROE Primary Care Provider [phone] Jeanine Rao OPTHALMIC TECH Unavailable Reason for Referral * Rehabilitation - Outpatient (Routine) - AuthorizedSpecialtyDiagnoses / ProceduresReferred By ContactReferred To ContactSpeech Pathology Diagnoses Pharyngoesophageal dysphagia Procedures MA OFFICE/OUTPATIENT [facility] 60 MINUTES Jeanine Rao NP [address] [place] [address] Phone: tel: fax: [facility] [address] [place] [address] Phone: tel: fax: Referral IDStatusReasonStart DateExpiration DateVisits RequestedVisits [id number] Specialty Services Required / Encounter Details DateTypeDepartmentCare Team (Latest Contact Info)Xfqphwkjbnr12/25/2025Results Follow-Up [facility] [address] [place] [address] Jeanine Rao NP [address] [place] [address] NETWORK MANAGER videofluoroscopic swallow study Social History Tobacco UseTypesPacks/DayYears UsedDateSmoking [...] times a week01/22/2024How often do you attend congregational or nondenominational services?More than 4 times per year01/22/2024o you belong to any clubs or organizations such as congregational groups, unions, fraternal or athletic groups, or [...] heating?Somewhat hard 01/22/2024HQ-2AnswerDate RecordedPatient Health Questionnaire-2 Score2 03/23/2025[facility] [place] of Occupational Health - Occupational Stress QuestionnaireAnswerDate [...] No01/22/2024CommentsNoSex and Gender InformationValueDate RecordedSex Assigned at KgzdsXvrgxy70/16/2023 9:54 AM EDTLegal TjiNmzvig54/15/2023 6:42 PM EDTGender XodlvhqlLtqjcc38/15/2023 6:42 PM EDTSexual OrientationNot on file documented as of this encounter Miscellaneous Notes * Telephone Encounter - Jeanine Rao NP - 04/27/2025 3:56 PM EST Referral created for speech therapy. Mariella will let us know if she does not hear from them at at [facility]. documented in this encounter Plan of Treatment DateTypeDepartmentCare Team (Latest Contact Info)Imyvxovgdrr64/15/2025 2:20 PM ESTOffice Visit [facility] [place] [facility] [address] [place] [address] Jamie Schwartz MD [address] [place] [address] 05/19/2025 11:30 AM ESTEducation [facility] [address] [place] [address] Cristina Escalante, OPTHALMIC TECH [address] [place] [address] 06/30/2025 10:00 AM ESTOffice Visit [facility] [address] [place] [address] Jeanine Rao, OPTHALMIC TECH [address] [place] [address] 04/05/2026 10:00 AM ESTOffice Visit [facility] [address] [place] [address] Amalia Cheng, PA [address] [place] [address] [place], [place] [id number] NameTypePriorityAssociated DiagnosesOrder ScheduleAmbulatory referral to Speech TherapyOutpatient ReferralRoutine Pharyngoesophageal dysphagia Expected: 04/27/2025 (Approximate), Expires: 10/25/2025documented as of this encounter Visit Diagnoses Diagnosis Pharyngoesophageal dysphagia- Primary Dysphagia, pharyngoesophageal phase documented in this encounter Additional Health Concerns AssessmentNoted TimePHQ-9 Depression Total Score: 9:10 AM EDT documented as of this encounter Care Teams Team MemberRelationshipSpecialtyStart DateEnd Date Jose Putnam DO [address] [place], [place] [id number] PCP - GeneralFamily Medicine11/09/22 Jeanine Rao NP [address] [facility] [address] [place] [address] Nurse PractitionerFamily Medicine11/09/22documented as of this encounter
--- OUTSIDE RECORDS SUMMARY | 2025-05-04 08:04 | XMS_ITS | Clinical Summary ---
Author Organization [facility] Address [address] [place] [address] Care Team Providers Care Director Of Maintenance Name Role Phone Indy Jose Whitehead DO Primary Care Provider [phone] Jeanine Rao INSPECTOR STRUCTURAL BONDING Unavailable Allergies Active AllergyReactionsCriticalityNoted LjgfPsbiipkdDvquaug98/11/2013 Heart Cath dye Iodinated Contrast NiqpyXvvbp42/12/6419CtbdbfpkpfJaagn65/12/2023Shellfish Protein-Containing Drug Ntvjyrah69/18/2013 Medications MedicationSigDispense QuantityRefillsLast FilledStart DateEnd DateStatus B [...] of insulin (HCC)Daily testing 100 each ctive Additional Information Patient not taking.Reported on 05/03/2025 Lancet Devices (Autolet) lancing device Indications:Type 2 diabetes mellitus without complication, without long-term current use of insulin (HCC)Daily testing 100 each 4Active FreeStyle lancets 4Active montelukast (Singulair) 10 MG tablet Indications:Environmental and seasonal allergiesTAKE 1 TABLET IN THE MORNING 90 tablet 4Active escitalopram (Lexapro) 10 MG tablet Take 10 mg by mouth Daily4Active meloxicam (Mobic) 15 MG tablet Indications:Degenerative cervical discTAKE 1 TABLET IN THE MORNING 90 tablet 5Active bisoprolol (Zebeta) 10 MG tablet Indications:Essential hypertensionTAKE 1 TABLET IN THE MORNING 90 tablet 5Active metFORMIN XR (Glucophage-XR) 500 MG 24 hr tablet Indications:Type 2 diabetes mellitus without complication, without long-term current use of insulin (HCC)TAKE 2 TABLETS EVERY MORNING AND 2 TABLETS BEFORE BEDTIME 360 tablet 5Active amLODIPine (Norvasc) 5 MG tablet Indications:Essential hypertensionTAKE 1 TABLET EVERY MORNING 90 tablet 5Active chlorthalidone (Hygroton) 50 MG tablet Indications:Essential hypertensionTAKE 1 TABLET EVERY MORNINGWITH FOOD 90 tablet 5Active Continuous Glucose Sensor (Dexcom G7 Sensor) [facility] [place] Indications:Type 2 diabetes mellitus with hyperglycemia, with long-term current use of insulin (HCC)USE DIRECTED AND CHANGE EVERY 14 DAYS 2 each 1105Active Additional Information Patient not taking.Reported on 05/03/2025 Synthroid 100 MCG tablet Indications:Acquired hypothyroidismTAKE 1 [...] hyperglycemia, without long-term current use of insulin (HCC)Take 1 tablet (15 mg) by mouth Daily 90 tablet [id number] Additional Information Patient taking differently:15 mg Oral Daily,(No times of day reported), Reported on 05/03/2025 Jardiance 25 MG Indications:Type 2 diabetes mellitus without complication, without long-term current use of insulin ([facility])TAKE 1 TABLET BY MOUTH EVERY DAY 30 tablet 1115Active Additional Information Patient taking differently:25 mg Oral Daily,(No times of day reported), Reported on 05/03/2025 Semaglutide, 2 MG/DOSE, (Ozempic, 2 MG/DOSE,) 8 MG/3ML solution pen-injector Indications:Type 2 diabetes mellitus with hyperglycemia, with long-term current use of insulin ([facility])Inject 2 mg under the skin 1 (one) time per week 3 mL 5Active losartan (Cozaar) 50 MG tablet Indications:Type 2 diabetes mellitus without complication, without long-term current use of insulin ([facility])TAKE 0.5 TABLETS BY MOUTH DAILY. 45 tablet 5Active Continuous Glucose Sensor (Dexcom G7 Sensor) [facility] [place] Indications:Type 2 diabetes mellitus with hyperglycemia, without long-term current use of insulin ([facility])1 Units every 14 (fourteen) days 2 each 1115Active rosuvastatin (Crestor) 10 MG tablet Indications:Pure hypercholesterolemiaTake 1 tablet (10 mg) by mouth Daily 90 tablet 5Active atorvastatin (Lipitor) 10 MG tablet Indications:Pure hypercholesterolemiaTAKE 1 TABLET IN THE MORNING 90 tablet Discontinued(Therapy completed) losartan (Cozaar) 50 MG tablet Indications:Type 2 diabetes mellitus without complication, without long-term current use of insulin ([facility])TAKE 1 TABLET BY MOUTH EVERY DAY 90 tablet Discontinued Active Problems ProblemNoted DateDiagnosed DateHallux rigidus, left foot01/21/2024Hallux valgus (acquired), left foot01/21/2024Type 2 diabetes mellitus with hyperglycemia 01/21/2024cquired /09/2023cute post-traumatic stress disorder 11/09/2022AD (generalized anxiety disorder)11/09/2022egenerative cervical disc 11/09/2022Environmental and seasonal pjtthrkie84/09/2023Primary hypertension 11/09/2022rimary ueocsudw06/09/2023Mild intermittent asthma without kbexpwgkfehz66/09/2023Obesity, baduysvrpcz95/09/2023anic disorder with zimpswamqtm74/09/2023ure mnctguzirhqelbsxiugd55/09/2023Type 2 diabetes mellitus without complication, without long-term current use of hyclvbm4811/09/2022Vitamin D jbtkvxltda29/09/2023Severe single current episode of major depressive disorder, without psychotic nsmxofoz66/17/2018 Resolved Problems ProblemNoted DateDiagnosed DateResolved DateDiabetes oebbnbcn54/16/2023 05/10/20232698Nunkvmi63/09/202310/Panic attack as reaction to stress Encounters DateTypeDepartmentCare OuodAlydmpzhlut42/01/2025 9:00 AM ESTOffice Visit [facility] [place] [address] [facility] [place] [place] [address] Jeanine Rao, CURLY Type 2 diabetes mellitus with hyperglycemia, without long-term current use of insulin ([facility]) (Primary Dx); Pure hypercholesterolemia; Pain in right foot; Pharyngoesophageal dysphagia; Encounter for screening mammogram for malignant neoplasm of breast; Nocturnal eopkmkv6105/03/2025bstract [facility] [place] [address] [facility] [place] [place] [address] Jeanine Rao, CURLY 05/03/2025bstract [facility] [place] [address] [place] [address] Jeanine Rao, CURLY 05/03/20259858Fhnmbm80/25/2025Results Follow-Up [facility] [place] [address] [place] [address] Jeanine Rao, CURLY TITLE SEARCH MANAGER videofluoroscopic swallow study04/27/2025bstract [facility] [place] [address] [place] [address] Jeanine Rao, CURLY 04/26/2025Results Follow-Up [facility] [place] [address] [place] [address] Jeanine Rao, CURLY FL MODIFIED BARIUM SWALLOW W VIDEO04/26/2025linisync Result Encounter [facility] External Department Unsolicited Jeanine Rao, INSPECTOR STRUCTURAL BONDING 04/19/2025bstract [facility] [place] [address] [place] [address] Jeanine Rao, INSPECTOR STRUCTURAL BONDING 04/15/2025Telephone [facility] [address] [facility] [place] [address] Jeanine Rao, INSPECTOR STRUCTURAL BONDING my chart ?04/15/2025Telephone [facility] [place] [facility] [address] [place] [address] Chelita Molina LPN Blood Sugar Mlkzrbc6904/14/2025Telephone [facility] [address] [place] [address] Jeanine Rao, INSPECTOR STRUCTURAL BONDING Care Ofpufehzwkih90/12/2025bstract [facility] [place] [address] [facility] [address] [place] [address] Jeanine Rao NP 04/14/2025Orders Only [facility] [place] [address] [facility] [address] [place] [address] Amy Ng LPN 04/12/2025Telephone [facility] [address] [place] [address] Jeanine Rao, INSPECTOR STRUCTURAL BONDING Fax order for swallow study04/12/2025Results Follow-Up [facility] [place] [address] [place] [address] Jeanine Rao, INSPECTOR STRUCTURAL BONDING FL UGI106/12/2024linisync Result Encounter [facility] External Department Unsolicited Jeanine Rao NP 04/07/2025 11:00 AM ESTClinical Support [facility] [place] [facility] [address] [place] [address] Douglas Spivey RN Type 2 diabetes mellitus with hyperglycemia, without long-term current use of insulin (HCC) (Primary Dx); Acquired bswhtatlkteicd67/05/2025amboo flowsheet [facility] [facility] [address] [place] [address] Douglas Spivey RN 04/06/2025Refill [address] [place] [address] Jeanine Rao NP Type 2 diabetes mellitus without complication, without long-term current use of insulin ([facility])04/05/2025 9:50 AM ESTOffice Visit [facility] [address] [facility] [address] [place] [address] Amalia Cheng PA Seborrheic keratosis (Primary Dx); Melanocytic nevus of trunk; Mario angioma; Inflamed seborrheic qvbqdessy45/03/3712Bdqbhh60/27/2025Orders Only [address] [address] Amy Ng LPN Abnormal yxfmcqlgsv48/22/2025Results Follow-Up [address] [address] Jeanine Rao NP TSH, T4, free, Vitamin D 25 sumjpci4903/23/2025 9:00 AM EDTOffice Visit [address] [address] Jeanine Rao NP Wellness examination (Primary Dx); Type 2 diabetes mellitus with hyperglycemia, without long-term current use of insulin ([facility]); Mild intermittent asthma without complication ([facility]); ENRIQUE (generalized anxiety disorder); Severe single current episode of major depressive disorder, without psychotic features ([facility]); Vitamin D deficiency; Panic disorder with agoraphobia; Primary hypertension; Primary insomnia; Degenerative cervical disc; Hallux rigidus, left foot; Hallux valgus (acquired), left foot; Acquired hypothyroidism; Obesity due to excess calories with serious comorbidity, unspecified class; Acute post-traumatic stress disorder; Environmental and seasonal allergies; Immunization due; Abnormal ilgzclboyp64/21/2025bstract [address] [place] [address] Jeanine Rao, CURLY 03/23/2025bstract [place] [address] [place] [address] Jeanine Rao, CURLY 03/23/2025amboo flowsheet [place] [address] [facility] [address] [place] [address] Jeanine Rao, CURLY 03/23/20254700Voxzps62/15/2025 1:00 PM EDTClinical Support [facility] [address] [facility] [address] [place] [address] Douglas Spivey RN Type 2 diabetes mellitus with hyperglycemia, with long-term current use of insulin ([facility]) (Primary Dx); BMI 39.0-39.9,adult03/17/2025amboo flowsheet [facility] Patient Education [facility] [facility] [address] [place] [address] Douglas Spivey RN 03/16/2025Refill [place] [address] [facility] [address] Jeanine Rao, CURLY Type 2 diabetes mellitus with hyperglycemia, with long-term current use of insulin ([facility])03/16/2025Refill [place] [address] [facility] [address] [place] [address] Jeanine Rao, CURLY Type 2 diabetes mellitus without complication, without long-term current use of insulin ([facility])03/16/2025Telephone [place] [address] [facility] [address] [place] [address] Jeanine Rao, CURLY Results; Care Hdvjwzuoflju09/09/2025bstract [place] [address] [facility] [address] [place] [address] Jeanine Rao, INSPECTOR STRUCTURAL BONDING 03/08/2025Refill [place] [address] [facility] [address] [place] [address] Jeanine Rao NP Type 2 diabetes mellitus without complication, without long-term current use of insulin ([facility])03/02/2025 11:30 AM EDTOffice Visit [facility] [place] [facility] [address] [place] [address] Jamie Schwartz MD Type 2 diabetes mellitus with hyperglycemia, without long-term current use of insulin ([facility]) (Primary Dx); Primary hypertension ; Vitamin D deficiency; Acquired hypothyroidism ; Encounter for dietary consultation; Class 2 severe obesity due to excess calories with serious comorbidity and body mass index (BMI) of39.0 to 39.9 in adult ([facility])02/19/2025Telephone [address] [place] [address] Jeanine Rao NP 02/19/2025Telephone [address] [place] [address] Jeanine Rao, CURLY 02/17/2025Telephone [address] [place] [address] Jeanine Rao NP wrong jrguevam50/16/2025 2:30 PM EDTOffice Visit [address] [place] [address] Jeanine Rao, CURLY Type 2 diabetes mellitus with hyperglycemia, with long-term current use of insulin ([facility]) (Primary Dx); BMI 39.0-39.9,adult; Mild intermittent asthma without complication ([facility]); Acute upper respiratory infection; Type 2 diabetes mellitus without complication, without long-term current use of insulin ([facility])02/16/2025amboo flowsheet [address] [place] [address] Jeanine Rao, INSPECTOR STRUCTURAL BONDING 02/16/20251818Xxbfgq93/11/2025Telephone [address] [place] [address] Priscila Bailey RN Referralfrom Last 3 Months Immunizations ImmunizationAdministration DatesNext DueHep B, adult05/16/2006,07/10/2003, 12/12/1995,09/19/1995Influenza, Qrpivqsopdv20/08/2021,03/04/2020,04/03/2017 Influenza, injectable, quadrivalent, preservative free03/06/2024,05/10/2023, 04/13/2022,03/10/2021,03/04/2020,04/03/2017Influenza, seasonal, injectable, preservative free03/23/2025Pneumococcal Conjugate PCV 13107/07/20178463Xfsr75/13/2017 Zoster, Obeyxrthcwo07/07/2022,03/10/2021 Family History Medical HistoryRelationNameCommentsBipolar disorderBrotherMental illnessBrother Esophageal cancerFatherHeart diseaseFatherMental illnessFathersevere depression FatherAlzheimer's diseaseMaternal GrandmotherDiabetesMotherHeart diseaseMother HypertensionMotherMental illnessMotherdepressionStrokeMotherLung cancerPaternal GrandfatherSuicideSon 9UqbxmdpkZxebTxcnvqUuviucmiQkawddo7 brotherDaughterAlive2 daughtersFatherDeceasedMaternal GrandmotherDeceasedMotherDeceasedPaternal GrandfatherDeceasedPaternal GrandmotherDeceasedSister2 sistersSon 7Tacwq5 sons Son 2Deceased (Age 19) Social History [...] week01/22/2024How often do you attend jewish or holiness services?More than 4 times per year01/22/2024o you [...] heating?Somewhat hard 01/22/2024HQ-2AnswerDate RecordedPatient Health Questionnaire-2 Score2 03/23/2025[facility] [place] [facility] - Occupational Stress QuestionnaireAnswerDate [...] were you homeless or living in a usp (including now)? No01/22/2024CommentsNoSex and Gender InformationValueDate RecordedSex Assigned at IpsgbJdpmkd05/16/2023 9:54 AM EDTLegal AxeXpohxo63/15/2023 6:42 PM EDTGender KfnhkstiCizhtn78/15/2023 6:42 PM EDTSexual OrientationNot on file Last Filed Vital Signs Vital SignReadingTime TakenCommentsBlood Cmzjxdlw994/7205/03/2025 9:11 AM EST Vgciq622105/03/2025 9:11 AM PYTJkorpruewzt91.7 ??C (98.1 ??F)05/03/2025 9:11 AM ESTRespiratory Wycw144807/04/2024 9:11 AM ESTOxygen Fjjkohhoix10%05/03/2025 9:11 AM ESTInhaled Oxygen Concentration--Qrpbuh559 kg (225 lb 12.8 oz)05/03/2025 9:11 AM HTPWggdnn830 cm (5' 3 )05/03/2025 9:11 AM ESTBody Mass Jtucw186105/03/2025 9:11 AM EST Plan of Treatment DateTypeDepartmentCare Team (Latest Contact Info)Utbbheynlam60/15/2025 2:20 PM ESTOffice Visit [facility] [place] [facility] [address] [place] [phone] Jamie Schwartz MD [address] [place] [address] 05/19/2025 11:30 AM ESTEducation [facility] [place] [facility] [address] [place] [address] Cristina Escalante, INSPECTOR STRUCTURAL BONDING [address] [place] [facility] [place] [address] 06/30/2025 10:00 AM ESTOffice Visit [facility] [address] [place] [address] Jeanine Rao, INSPECTOR STRUCTURAL BONDING [address] [place], [place] [address] 04/05/2026 10:00 AM ESTOffice Visit [facility] [place] [facility] [address] [place] [address] Amalia Cheng, PA [address] [place], [place] [phone] Health MaintenanceDue DateLast DoneCommentsCT Hibxnxrhvvsx24/22/1968FIT-DNA 1967FIT1967FOBT1967 3509Safexuycfzebz66/22/1759Fhmtlpxrz03/10/2026 06/12/2024, 05/24/2023, 05/11/2022, Additional history existsDiabetes: Hemoglobin A1C, 02/16/2025, 12/11/2024, Additional history existsDiabetes: Urine Protein Ynlewkubz86, 11/06/2023, 3Diabetes: Retinopathy Usanamzmf42/11/2023, 06/21/2023, 08/21/2018, Additional history gzkyriRulcsryrjhm96Colorectal Cancer Duzodahzw07/07/2028Pneumococcal Vaccine: Pediatrics (0 to 5 Years) and At-Risk Patients (6 to 64 Years)Fgniiuxwuloi53/04/2018COVID-19 Vaccine Wuzesplagrvk27/07/2021, 1Cervical Cancer ScreeningDiscontinued HPV/WjukfgUupoqviquwfp92/17/2025, 06/19/2024, 1Pap SmearDiscontinued 06/19/2024, 06/19/2024Influenza ZyltjubDklghryww67/21/2025, 03/06/2024, 05/10/2023, Additional history exists Procedures Procedure NamePriorityDate/TimeAssociated DiagnosisCommentsSLP VIDEOFLUOROSCOPIC SWALLOW TXIZOJmzoecr15/25/2025 5:42 AM EST Pharyngoesophageal dysphagia FL MODIFIED BARIUM SWALLOW W VIDEO04/26/2025 1:52 PM EST FL UGI106/12/2024 11:20 AM EST CRYOTHERAPY SKIN DBTBEBYvpzizu54/03/2025 10:05 AM EST Inflamed seborrheic keratosis VITAMIN D 25 HYDROXY JHFPFZmbfcvs02/21/2025 9:56 AM EDT Vitamin D deficiency T4, EYBFNgtomxw64/21/2025 9:56 AM EDT Acquired hypothyroidism NDFEaxdqsw82/21/2025 9:56 AM EDT Acquired hypothyroidism TEST ESUAGCKSCMEVGZmjohtt17/21/2025 9:55 AM EDT MICROALBUMIN / CREATININE URINE WSXIYForfzpv82/21/2025 9:55 AM EDT HEMOGLOBIN C3FOaiwf54/21/2025 9:55 AM EDT Type 2 diabetes mellitus without complication, without long-term current use of insulin (HCC) LIPID YXUMWSbmia65/21/2025 9:55 AM EDT Wellness examination XQTIiigv38/21/2025 9:55 AM EDT Wellness examination COMPREHENSIVE METABOLIC PANEL (REFL)Today03/23/2025 9:55 AM EDT Wellness examination URINALYSIS, COMPLETE W/REFLEX TO RKJLZJLCnicx53/21/2025 9:55 AM EDT Dysuria Wellness examination CULTURE, URINE, DTPIIKPBrjhojf74/21/2025 9:55 AM EDT REFLEXIVE URINE JTPJMJXGzyizjq86/21/2025 9:55 AM EDT AMB REFERRAL TO TPMMHDOEKYZOKWtpnhma97/21/2025 6:41 AM EDT Type 2 diabetes mellitus with hyperglycemia, without long-term current use of insulin (HCC) AMB REFERRAL TO DIABETIC BOORDJIRALgfvrqb72/21/2025 6:39 AM EDTPOCT GLUCOSE Odwoygm8303/02/2025 11:33 AM EDT Type 2 diabetes mellitus with hyperglycemia, without long-term current use of insulin (HCC) BASIC METABOLIC JMCSYKqikjnl98/16/2025 HEMOGLOBIN R8VAisboaa91/16/2025 BI MAMMOGRAM SCREENING TOMOSYNTHESIS TAKRYDHDRCisxdbi69/10/2025 9:30 AM EST Visit for screening mammogram DIABETIC RETINOPATHY SCREENING - OU - BOTH ATPYWweoaqz31/06/2024 3:58 AM EST HISTORIC PAP WITH HPV WDTQVLItqupxh22/10/2021 12:00 PM EST CDTGRMGJPESVdrrjtf69/07/2018 12:00 PM EDT from Last 3 Months or Most Recently Relevant to Health Maintenance Results * TITLE SEARCH MANAGER videofluoroscopic swallow study (04/27/2025 5:42 AM EST) Narrative Authorizing ProviderResult TypeResult StatusGerri L Rine NPS ORDERABLESFinal Result * FL MODIFIED BARIUM SWALLOW W VIDEO (04/26/2025 1:52 PM EST)Anatomical Region LateralityModalityOtherSpecimen (Source)Anatomical Location / Laterality Collection Method / VolumeCollection TimeReceived Time04/26/2025 1:52 PM EST Narrative 04/26/2025 1:56 PM EST EXAMINATION: MODIFIED BARIUM SWALLOW WAS PERFORMED IN CONJUNCTION WITH SPEECH PATHOLOGY SERVICES TECHNIQUE: Under fluoroscopic evaluation cineradiography/videoradiography recordings were performed in conjunction with the speech-language pathologist (TITLE SEARCH MANAGER). Various liquid, solid and/or semi-solid barium preparations [...] were performed in conjunction with the speech-language pathologist(TITLE SEARCH MANAGER). Various liquid, solid and/or semi-solid barium preparations [...] MD 04/26/25 Final result Authorizing ProviderResult TypeResult StatusGerri L Rine NPCLINISYNC IMAGING Final Result * FL UGI (04/12/2025 11:20 AM EST)Anatomical [...] D, (D2,D3), LC/MS/MS is recommended: order code 23751 (patients >2yrs). See Note 1 Note 1 For additional information, please refer to http://education.Spoke.Clothes Horse/faq/UCN395 (This link is being provided for informational/ educational purposes only.) Specimen (Source)Anatomical Location / LateralityCollection Method / Volume Collection TimeReceived TimeBloodVenous blood specimen / Ytyffek1403/23/2025 9:56 AM EDT1 9:56 AM EDT Narrative [facility] - 03/24/2025 5:04 AM EDT FASTING:YES MULTIPLE TESTING PRIORITIES; ROUTINE TESTING TO FOLLOW. FASTING: YES Resulting Agency Comment Performing Organization Information ?Site ID: QPT ?Name: [facility] ?Address: [address] [place] [address], [address] [place] [phone] ?Director: Shaheed Becerra MD Authorizing ProviderResult TypeResult StatusGerri Liban Rao NPLAB BLOOD ORDERABLES Final ResultPerforming OrganizationAddressCity/State/ZIP CodePhone Number [facility] * TSH (03/23/2025 9:56 AM EDT)ComponentValueRef RangeTest MethodAnalysis Time Performed AtPathologist SignatureTSH0.950.40 - 4.50 mIU/LQUESTSpecimen (Source)Anatomical Location / LateralityCollection Method / VolumeCollection TimeReceived TimeBloodVenous blood specimen / Yoygksk0403/23/2025 9:56 AM EDT 03/23/2025 9:56 AM EDT Narrative [facility] - 03/24/2025 5:04 AM EDT FASTING:YES MULTIPLE TESTING PRIORITIES; ROUTINE TESTING TO FOLLOW. FASTING: YES Resulting Agency Comment Performing Organization Information ?Site ID: QPT ?Name: [facility] ?Address: [address] [place] [address], [address] [place] [address] ?Director: Shaheed Becerra MD Authorizing ProviderResult TypeResult StatusGerri L Rine NPLAB BLOOD ORDERABLES Final ResultPerforming OrganizationAddressty/State/ZIP CodePhone Number [facility] * T4, free (03/23/2025 9:56 AM EDT)ComponentValueRef RangeTest MethodAnalysis TimePerformed AtPathologist SignatureT4, FREE1.40.8 - 1.8 ng/dLQUESTSpecimen (Source)Anatomical Location / LateralityCollection Method / VolumeCollection TimeReceived TimeBloodVenous blood specimen / Dhctgrs3103/23/2025 9:56 AM EDT 03/23/2025 9:56 AM EDT Narrative [facility] - 03/24/2025 5:04 AM EDT FASTING:YES MULTIPLE TESTING PRIORITIES; ROUTINE TESTING TO FOLLOW. FASTING: YES Resulting Agency Comment Performing Organization Information ?Site ID: QPT ?Name: [facility] ?Address: [address] [place] [address], [address] [place], [place] [id number] ?Director: Shaheed Becerra MD Authorizing ProviderResult TypeResult StatusGerri L Rine NPLAB BLOOD ORDERABLES Final ResultPerforming OrganizationAddressty/[facility]/[place] CodePhone Number [facility] * TEST AUTHORIZATION (03/23/2025 9:55 AM EDT)ComponentValueRef RangeTest Method Analysis TimePerformed AtPathologist SignatureTEST NAME:ALBUMIN URINEQUESTTEST CODE:6,517QUESTCLIENT CONTACT:[phone] ALWAYS MESSAGE SIGNATUREQUESTComment: The laboratory testing on this patient was verbally requested or confirmed by the ordering physician or his or her authorized sales representative leather goods after contact with an employee of [facility]. Federal regulations require that we maintain on file written authorization for all laboratory testing. ??Accordingly we are asking that the ordering physician or his or her authorized sales representative leather goods sign a copy of this report and promptly return it to the client coordinator. Signature: COMMENTQUESTComment: Please have the ordering physician or his or her authorized sales representative leather goods sign a copy of this report and promptly return it by faxing it to: [phone] or by returning the form to your home health lpn. Specimen (Source)Anatomical Location / LateralityCollection Method / Volume Collection TimeReceived Time03/23/2025 9:55 AM EDT1 9:56 AM EDT Narrative [facility] - 03/25/2025 9:06 AM EDT FASTING:YES FASTING: YES Resulting Agency Comment Performing Organization Information ?Site ID: QPT ?Name: [facility] ?Address: [address] [place] [address] ?Director: Shaheed Becerra MD Authorizing ProviderResult TypeResult StatusLisandrori Liban Rao NPLAB BLOOD ORDERABLES Final ResultPerforming OrganizationAddressCity/State/[place] CodePhone Number [facility] * REFLEXIVE URINE CULTURE (03/23/2025 9:55 AM EDT)ComponentValueRef RangeTest MethodAnalysis TimePerformed AtPathologist SignatureREFLEXIVE URINE CULTURE QUESTComment:CULTURE INDICATED - RESULTS TO FOLLOWSpecimen (Source)Anatomical Location / LateralityCollection Method / VolumeCollection TimeReceived Time 03/23/2025 9:55 AM EDT1 9:56 AM EDT Narrative [facility] - 03/25/2025 9:06 AM EDT FASTING:YES FASTING: YES Resulting Agency Comment Performing Organization Information ?Site ID: QPT ?Name: [facility] ?Address: [address] [place] [address] ?Director: Shaheed Becerra MD Authorizing ProviderResult TypeResult StatusGerri L Jalen NPLAB MICROBIOLOGY - GENERAL ORDERABLESFinal ResultPerforming OrganizationAddressty/[facility]/[place] Code Phone Number [facility] * (ABNORMAL) COMPREHENSIVE METABOLIC PANEL (REFL) (03/23/2025 9:55 AM EDT) ComponentValueRef RangeTest MethodAnalysis TimePerformed AtPathologist LqtujbkrsSibkhti770(H)65 - 99 mg/dLQUESTComment: ? Fasting reference interval For someone without known diabetes, a glucose value >125 mg/dL indicates that they may have diabetes and this should be confirmed with a follow-up test. QKP543 - 25 mg/dLQUESTCreatinine0.710.50 - 1.03 mg/pNBTBUDXCYW86> OR = 60 mL/min/1.78z1REZIWGCV/CREATININE RATIOSEE NOTE: (calc)QUESTComment: ?? Not Reported: BUN and Creatinine are within ?? reference range. ? Mgbytv181259 - 146 mmol/LQUESTPotassium, Bld3.4(L)3.5 - 5.3 mmol/LQUESTChloride 9898 - 110 mmol/LQUESTCarbon Dgidvsw3769 - 32 mmol/LQUESTCalcium9.88.6 - 10.4 mg/dLQUESTPROTEIN, TOTAL6.36.1 - 8.1 g/dLQUESTALBUMIN4.43.6 - 5.1 g/dLQUEST GLOBULIN1.91.9 - 3.7 g/dL (calc)QUESTALBUMIN/GLOBULIN RATIO2.31.0 - 2.5 (calc) QUESTBILIRUBIN, TOTAL1.3(H)0.2 - 1.2 mg/dLQUESTALKALINE EJOYLOQUIXI2766 - 153 U/UTHMPHMQP5573 - 35 U/XVWZWHBVG144 - 29 U/LQUESTSpecimen (Source)Anatomical Location / LateralityCollection Method / VolumeCollection TimeReceived Time 03/23/2025 9:55 AM EDT1 9:56 AM EDT Narrative [facility] - 03/25/2025 9:06 AM EDT FASTING:YES FASTING: YES Resulting Agency Comment Performing Organization Information ?Site ID: QPT ?Name: [facility] ?Address: [address] [place] [address], [address] [place] [phone] ?Director: Shaheed Becerra MD Authorizing ProviderResult TypeResult StatusGerdenise Roa NPLAB BLOOD ORDERABLES Final ResultPerforming OrganizationAddressCity/State/ZIP CodePhone Number QUEST * (ABNORMAL) URINALYSIS, COMPLETE W/REFLEX TO CULTURE (03/23/2025 9:55 AM EDT) ComponentValueRef RangeTest MethodAnalysis TimePerformed AtPathologist SignatureCOLORYELLOWYELLOWQUESTAPPEARANCECLEARCLEARQUESTSPECIFIC GRAVITY1.025 1.001 - 1.713UPZTIHU8.55.0 - 8.5ILWRKUKJEZCF1+(A)NEGATIVEQUESTBILIRUBIN NEGATIVENEGATIVEQUESTKETONESNEGATIVENEGATIVEQUESTOCCULT BLOODNEGATIVENEGATIVE QUESTPROTEINNEGATIVENEGATIVEQUESTNITRITENEGATIVENEGATIVEQUESTLEUKOCYTE ESTERASETRACE(A)NEGATIVEQUESTWBC0-5< OR = 5 [...] Performing Organization Information ?Site ID: QPT ?Name: [facility] ?Address: [address] [place] [address], [address] [place] [phone] ?Director: Shaheed Becerra MD Authorizing ProviderResult TypeResult StatusGerri Liban Rao NPLAB BODY FLUIDS AND STOOLS ORDERABLESFinal ResultPerforming OrganizationAddressCity/State/ZIP Code Phone Number QUEST * Microalbumin / creatinine urine ratio (03/23/2025 9:55 AM EDT)ComponentValue Ref RangeTest MethodAnalysis TimePerformed AtPathologist SignatureCREATININE, RANDOM FCHYM9964 - 275 mg/dLQUESTALBUMIN, URINE0.2See Note: mg/dLQUESTComment: Reference [...] Performing Organization Information ?Site ID: QPT ?Name: [facility] ?Address: [address] [place] [phone] ?Director: Shaheed Becerra MD Authorizing ProviderResult TypeResult StatusGerri Liban Rao LAB URINE ORDERABLES Final ResultPerforming OrganizationAddressCity/State/ZIP CodePhone Number QUEST * CBC (03/23/2025 9:55 AM EDT)ComponentValueRef RangeTest MethodAnalysis Time Performed AtPathologist SignatureWHITE BLOOD CELL COUNT5.83.8 - 10.8 Thousand/uLQUESTRED BLOOD CELL COUNT4.843.80 - 5.10 Million/uLQUESTHEMOGLOBIN 14.511.7 - 15.5 g/jKRXYSOHZSDFMUBQA32.235.0 - 45.0 %KELDAODO84.380.0 - 100.0 nTXAWRKEPN50.027.0 - 33.0 epCKRYDWJKF85.632.0 - 36.0 g/dLQUESTComment: For adults, a slight decrease in the calculated MCHC value (in the range of 30 to 32 g/dL) is most likely not clinically significant; however, it should be interpreted with caution in correlation with other red cell parameters and the patient's clinical condition. RDW13.811.0 - 15.0 %QUESTPLATELET UEHAN889686 - 400 Thousand/uLQUESTMPV9.97.5 - 12.5 fLQUESTSpecimen (Source)Anatomical Location / LateralityCollection Method / VolumeCollection TimeReceived TimeBloodVenous blood specimen / Esmvwpn2503/23/2025 9:55 AM EDT1 9:56 AM EDT Narrative [facility] - 03/25/2025 9:06 AM EDT FASTING:YES FASTING: YES Resulting Agency Comment Performing Organization Information ?Site ID: QPT ?Name: [facility] ?Address: [address] [place] [address] ?Director: Shaheed Becerra MD Authorizing ProviderResult TypeResult StatusLisandrori Liban Rao NPLAB BLOOD ORDERABLES Final ResultPerforming OrganizationAddBerwick Hospital Centerty/State/RUST CodePhone Number QUEST * Urine culture (03/23/2025 9:55 AM EDT)ComponentValueRef RangeTest Method Analysis TimePerformed AtPathologist SignatureMICRO [id number] SPECIMEN QUALITYAdequateQUESTSOURCE: (QUEST)URINEQUESTSTATUSFINALQUESTRESULT SEE NOTEQUESTComment: No Growth Specimen (Source)Anatomical Location / LateralityCollection Method / Volume Collection TimeReceived Time03/23/2025 9:55 AM EDT1 9:56 AM EDT Narrative [facility] - 03/25/2025 9:06 AM EDT FASTING:YES FASTING: YES Resulting Agency Comment Performing Organization Information ?Site ID: QPT ?Name: [facility] ?Address: [address] [place] [address] ?Director: Shaheed Becerra MD Authorizing ProviderResult TypeResult StatusGerri L Jalen NPBELEM MICROBIOLOGY - GENERAL ORDERABLESFinal ResultPerforming OrganizationAddBerwick Hospital Centerty/State/ZIP Code Phone Number [facility]ST * (ABNORMAL) Hemoglobin A1c [...] Volume Collection TimeReceived TimeBloodVenous blood specimen / Kqhnnxa3903/23/2025 9:55 AM EDT1 9:56 AM EDT Narrative [facility] - 03/25/2025 9:06 AM EDT FASTING:YES FASTING: YES Resulting Agency Comment Performing Organization Information ?Site ID: QPT ?Name: [facility] ?Address: [address] [place] [phone] ?Director: Shaheed Becerra MD Authorizing ProviderResult TypeResult StatusGerri Liban Rao [facility] BLOOD ORDERABLES Final ResultPerforming OrganizationAddressCity/State/ZIP CodePhone Number QUEST * (ABNORMAL) Lipid panel (03/23/2025 9:55 AM EDT)ComponentValueRef RangeTest MethodAnalysis TimePerformed AtPathologist SignatureCHOLESTEROL, KBJBI130<200 mg/dLQUESTHDL VCPQKLDSFIK69> OR = 50 mg/uNNMJOFBJIIAFOGVONET905(H)<150 mg/dL QUESTLDL CXMYZGPIKFP08oo/dL (calc)QUESTComment: Reference range: <100 Desirable range <100 mg/dL for primary prevention; <70 mg/dL for patients with CHD or diabetic patients with > or = 2 CHD risk factors. LDL-C is now calculated using the Junaid-Yamileth calculation, which is a validated novel method providing better accuracy than the Friedewald equation in the estimation of LDL-C. Junaid SS et al. NICCI. 2013;310(19): 3189-6000 (http://education.Spoke.Clothes Horse/faq/RPR886) CHOL/HDLC RATIO2.3<5.0 (calc)QUESTNON HDL HFSWDZWGANN45<130 mg/dL (calc)QUEST Comment: For patients with diabetes plus 1 major ASCVD risk factor, treating to a non-HDL-C goal of <100 mg/dL (LDL-C of <70 mg/dL) is considered a therapeutic option. Specimen (Source)Anatomical Location / LateralityCollection Method / Volume Collection TimeReceived TimeBloodVenous blood specimen / Peggiev8603/23/2025 9:55 AM EDT1 9:56 AM EDT Narrative [facility] - 03/25/2025 9:06 AM EDT FASTING:YES FASTING: YES Resulting Agency Comment Performing Organization Information ?Site ID: QPT ?Name: [facility] ?Address: [address] [place] [address], [address] [place] [phone] ?Director: Shaheed Becerra MD Authorizing ProviderResult TypeResult StatusJeanine Rao NPLAB BLOOD ORDERABLES Final ResultPerforming OrganizationAddressCity/State/ZIP CodePhone Number QUEST * Ambulatory referral to Endocrinology (03/23/2025 6:41 AM EDT) Narrative Authorizing ProviderResult TypeResult StatusGerri L Joselinee NPOUTPATIENT REFERRAL ORDERABLESFinal Result * Ambulatory referral to Diabetic Education (03/23/2025 6:39 AM EDT) Narrative Authorizing ProviderResult TypeResult StatusLisandrori L Jalen NPOUTPATIENT REFERRAL ORDERABLESFinal Result * POCT glucose manually resulted (03/02/2025 11:33 AM EDT)ComponentValueRef RangeTest MethodAnalysis TimePerformed AtPathologist SignatureGlucose Blood, TRO113zu/dLSpecimen (Source)Anatomical Location / LateralityCollection Method / VolumeCollection TimeReceived TimeBloodCapillary blood specimen / Unknown 03/02/2025 11:33 AM EDT Narrative Authorizing ProviderResult TypeResult Erica Schwartz MDPOINT OF CARE TEST ENTER/EDIT ORDERABLESFinal Result * (ABNORMAL) Basic metabolic panel (02/16/2025)ComponentValueRef RangeTest MethodAnalysis TimePerformed AtPathologist AvtwgfybnOmxxkdg877(A)65 - 99 mg/dL BUN23(A)4 - 21 mg/dLCreatinine0.90.5 - 1.1 mg/dLEGFR>60BUN/Creat Agzme43Ckbpaw 141Potassium, Bld3.9Sskdedzc895Aumijr Gxpwkyl57.5mmol/LCalcium9.28.7 - 10.7 mg/dLAnion Gap13<=30 mmol/LSpecimen (Source)Anatomical Location / Laterality Collection Method / VolumeCollection TimeReceived TimeBloodVenous blood specimen / Srbkxsd6902/16/2025 Narrative Authorizing ProviderResult TypeResult StatusGerri Liban Rao NPLAB BLOOD ORDERABLES Final Result * Bilateral [...] BY: Martin Larkin M.D. Authorizing ProviderResult TypeResult StatusLisandrori Liban Rao NPIMG BI PROCEDURES Final Result * Diabetic Retinopathy Screening - OU - Both Eyes (05/08/2024 3:58 AM EST) Anatomical RegionLateralityModalityHeadOther Narrative Authorizing ProviderResult TypeResult StatusLisandrori L Joselinesj NPOPHTH PHOTOGRAPHY Final Result * HISTORIC PAP WITH HPV RESULT (05/12/2021 12:00 PM EST)ComponentValueRef Range Test MethodAnalysis TimePerformed AtPathologist SignatureGENERIC LEGACY COMPONENT INTERNALLSILECW NONXML LABSGENERIC LEGACY COMPONENT INTERNALpositive ECW NONXML LABSSpecimen (Source)Anatomical Location / LateralityCollection Method / VolumeCollection TimeReceived Time05/12/2021 12:00 PM EST Narrative Authorizing ProviderResult TypeResult StatusMiccasey Putnam DOECW LABSFinal ResultPerforming OrganizationAddressCity/State/ZIP CodePhone Number ECW NONXML LABS * Colonoscopy (02/07/2018 12:00 PM EDT)Anatomical RegionLateralityModality EndoscopySpecimen (Source)Anatomical Location / LateralityCollection Method / VolumeCollection TimeReceived Time02/07/2018 12:00 PM EDT Narrative 02/07/2018 12:00 PM EDT PERFORMED AT [facility] LOCATION:[id number] [facility] Procedure Note CONVERSION, GENERIC - 10/17/2022 PERFORMED AT [facility] LOCATION:[id number] [facility] Authorizing ProviderResult TypeResult StatusLisandrori Liban Rao NPENDOSCOPY PROCEDURE ORDERABLESFinal Result from Last 3 Months or Most Recently Relevant to Health Maintenance Insurance Care Teams Team MemberRelationshipSpecialtyStart DateEnd Date Jose Putnam DO [address] [place] [address] PCP - GeneralFami Medicine11/09/22 Jeanine Rao NP [address] [place], [place] [id number] Nurse PractitionerFapam health specialty hospital [facility] Medicine11/09/22
--- OUTSIDE RECORDS SUMMARY | 2025-05-04 08:04 | XMS_ITS | Encounter Summary ---
Author Organization [facility] Address [address] [place] [address] Care Team Providers Care Safety Trainer Name Role Phone Indy Jose Whitehead DO Primary Care Provider [phone] Jeanine Rao FLIGHT OPERATIONS DISPATCH CLERK Unavailable Reason for Visit * ReasonOnset DateCommentsBlood Sugar Okafiad5404/15/2025 Encounter Details DateTypeDepartmentCare Team (Latest Contact Info)Inhtqnkknak02/13/2025Telephone [facility] [address] [place] [address] Chelita Molina LPN Blood Sugar Problem Social [...] times a week01/22/2024How often do you attend advent or congregation services?More than 4 times per year01/22/2024o you belong to any clubs or organizations such as advent groups, unions, fraternal or athletic groups, or [...] heating?Somewhat hard 01/22/2024HQ-2AnswerDate RecordedPatient Health Questionnaire-2 Score2 03/23/2025[facility] [place] [facility] Occupational [facility] - Occupational Stress QuestionnaireAnswerDate [...] were you homeless or living in a chcf (including now)? No01/22/2024CommentsNoSex and Gender InformationValueDate RecordedSex Assigned at HdhkdXkwaco98/16/2023 9:54 AM EDTLegal WodCrxbtr41/15/2023 6:42 PM EDTGender EqeuvybwMtqhln98/15/2023 6:42 PM EDTSexual OrientationNot on file documented as of this encounter Miscellaneous Notes * Telephone Encounter - Chelita Molina LPN - 04/15/2025 1:55 PM EST PT STATES SHE FEELS HER A1C IS TOO HIGH AND HER BLOOD SUGARS HAVE BEEN HIGHER. SHE NEEDS TO HAVE SURGERY. PLEASE ADVISE THANKS. documented in this encounter Plan of Treatment DateTypeDepartmentCare Team (Latest Contact Info)Bcizoxealgo26/15/2025 2:20 PM ESTOffice Visit [facility] [address] [place] [phone] Jamie Schwartz MD [address] [place] [address] 05/19/2025 11:30 AM ESTEducation [facility] [address] [place] [address] Cristina Escalante, CURLY [address] [place] [address] 06/30/2025 10:00 AM ESTOffice Visit [facility] [address] [place] [address] Rine, Jeanine L, FLIGHT OPERATIONS DISPATCH CLERK [address] [place] [address] 04/05/2026 10:00 AM ESTOffice Visit [facility] [address] [place] [id number] Amalia Cheng, PA [address] [place] [address] documented as of this encounter Visit Diagnoses Not on filedocumented in this encounter Additional Health Concerns AssessmentNoted TimePHQ-9 Depression Total Score: 9:10 AM EDT documented as of this encounter Care Teams Team MemberRelationshipSpecialtyStart DateEnd Date Jose Putnam DO [address] [place] [address] PCP - GeneralFamily Medicine11/09/22 Jeanine Rao NP [address] [place], [place] [id number] Nurse PractitionerFamily Medicine11/09/22documented as of this encounter
[2025-05-04 08:08] LABS: Hematocrit 41.3 % (36.0-48.0); Hemoglobin 14.1 g/dL (12.0-16.0); Immature Granulocytes Abs Auto 0.03 10^3/uL (0.00-0.03); Immature Granulocytes Pct Auto 0.6 % (0.0-0.5); Lymphocytes Absolute Auto 1.5 10^3/uL (1.2-3.8); Mean Corpuscular HGB Conc 34.1 g/dL (29.9-35.2); Mean Corpuscular Hemoglobin 30.3 pg (26.7-34.0); Mean Corpuscular Volume 88.8 fL (81.0-99.0); Platelet Count 265 10^3/uL (150-450); Red Blood Count 4.65 10^6/uL (4.20-5.40); White Blood Count 5.3 10^3/uL (4.0-11.0)
[2025-05-04] MEDS: CEFAZOLIN SODIUM/DEXTROSE,ISO 1 GM/50 ML PREMIX IV ×2 (09:36→17:13)
--- NOTE | 2025-05-04 09:54 | PC.NURSE ---
0858- Final timeout completed. (0859) Patient placed on O2 at 3l/min via nc and also on monitor. Patient medicated and positioned on left side. (0901) Right popliteal landmarked per Ultrasound per Balta Cheng EVENT TECHNICIAN. (0903) Right popliteal injected. (0906) Right popliteal block completed. (0907) Patient repositioned on back. Right leg placed in frog position. Right saphenous landmarked per Ultrasound per Balta Cheng EVENT TECHNICIAN. (0909) Right saphenous injected (71003 Right Saphenous completed. Patient tolerated it well. See posted vital signs.
--- NOTE | 2025-05-04 10:00 | P.ORON_ITS ---
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 Recovery was complicated by nonunion followed by right first metatarsal phalangeal joint. She was evaluated in October 2024 and although she was not having much pain the nonunion was diagnosed and I did discuss potential need for revision. After much thought she wished to undergo the revision however she wanted to to wait after summer although I relayed to her that this was not necessarily ideal. Then when she was ready to undergo surgical intervention she ended up requiring cardiac clearance which further delayed the case. She did have no history of infection. Intraoperative findings: Mild soft tissue swelling over the surgical site and no evidence of acute superficial or deep space infection. The dorsal plate was fractured near the level of the joint and 3.5 interfragmentary screw was loosened. There was fibrotic tissue within the joint and surrounding synovitic tissue with black discoloration secondary to hardware irritation. The proximal phalanx base did have good bone quality however from the interfragmentary screw through motion there was a bone void within the central aspect of the proximal phalanx. The first metatarsal head bone quality was poor and required extensive debridement to healthy bleeding bone. The degree of bone resection required did create a shortened first ray but stability was ultimately achieved with the below procedure. Procedure in detail: Patient was identified in pre op and consent was reviewed. Correct side and site were identified and marked. Pre-op antibiotics were started. Patient was brought to OR suite and place on table in a supine position. General anesthesia was administered. Calf tourniquet applied. Operative extremity was prepped and draped in usual sterile fashion. Formal time-out was performed and the foot/ankle were exsanguinated and tourniquet inflated. Incision created over dorsal aspect of the 1st MPJ. Bleeders coagulated. EHL protected throughout the procedure. There was inflammatory/synovitic tissue throughout the surgical site with tiny shards of metal which were excised. The plate construct was removed easily however the interfragmentary screw was more difficult to remove given its motion and the resultant secondary bone changes. Once all the hardware was removed the joint was debrided and capsulotomy perform ed and McGlammry elevator inserted into 1st MPJ. All fibrotic and soft tissue within the joint was excised. Guide Pin place in 1st metatarsal head. Conical reamers used on 1st metatarsal head to remove all nonviable bone which did create a shortened first ray. Guide pin removed. Conical reamers used on proximal phalanx in a similar manner however bone quality was better on the proximal phalanx base. There was a central bone defect from the interfragmentary screw motion. Any osseous defect including the drill holes were aggressively curetted and drilled with a 2.0 mm drill bit. The site was irrigated with 3 L of normal saline pulse lavage. Then a clean rongeur was used to obtain a specimen from the first metatarsal which was sent to microbiology and pathology. Bone allograft (1 cc of Sparc and BMP) was prepared on the back table then packed into the fusion site and the bone defect of the proximal phalanx base. The great toe was then pinned with 2 guidewires to the first metatarsal in a rectus but shortened position. Position was checked on fluoroscopy. On the back table 5 cc of cerament bone void filler was prepared and mixed with 1 gm of vancomycin powder. Approximately 1.5 cc was then placed into the screw holes and around the fusion site to fill any remaining defects and was allowed to harden appropriately. Then a 4.0 mm cannulated screw was placed accordingly from the lateral aspect of the proximal phalanx via a stab incision spanning the joint and into the first metatarsal. Compression was noted on the table with preservation of appropriate alignment of the toe. Then a 3.5 mm revision locking plate was place over the fusion site and temporarily fixed and provisional hardware placement was checked on fluoroscopy. (Given the shortening and bone morphology a left sided plate was found to fit the best.) Then holes were drilled for locking and nonlocking 3.5 mm screws which were measured and placed according to the manufactor?s standard directions. Again position was checked under fluoroscopy as well as on the table. Temporary fixation was removed and additional screws were placed. Again position and hardware were checked on the table and under fluoroscopy. The surgical site was irrigated with copious amounts of sterile saline. Absorbable deep sutures were used to close fascia. A subcuticular stitch was used to close skin. The tourniquet was then deflated with a prompt hyperemic response. [place] were then placed over the incision and the stab incision on the lateral aspect of the great toe was closed with nylon suture. A dry sterile dressing consisting of Xeroform on the incisions followed by 4 x 4 gauze, ABDs, and Kerlix were applied. Multiple layers of cast padding were then applied to ensure all bony prominences were well-padded. A plaster posterior splint was then applied which was held in place by Osvaldo wraps. Capillary refill time to all digits was evaluated and had appropriate response. Patient tolerated the procedure and anesthesia well was transferred to the recovery room with vital signs stable and brisk capillary refill to the right great toe. Postoperative plan: Admit to medical surgical unit for observation Hospitalist was consulted for medical management Physical therapy and social insurance adviser were consulted as well Multimodal pain medication, DVT prophylaxis and perioperative antibiotics were ordered Estimated length of stay 1-2 nights and patient would like to be discharged home Implants: Vilex 4.0 mm cannulated interfrag screw Vilex 3.5 mm revision 1st MPJ locking plate 1 cc of Sparc bone allograft and BMP 1 gm vancomycin powder with Cerament bone void filler Anesthesia: MAC and regional Surgeon: Josiah Sanon Commercial Drone Pilot: Anna Estrada Estimated blood loss (mL): 25 Tourniquet time (min): 116 Pathology: other (bone from 1st metatarsal to micro and path) Condition: stable Disposition: PACU
[2025-05-04] MEDS: VANCOMYCIN HCL 1,000 MG VIAL 1000 MG TOPICAL ×2 (11:24→11:50)
--- NOTE | 2025-05-04 12:03 | XR_ITS ---
[address] [address] Patient Name: AISHWARYA DUNN MRN: [id number] date: 1965 Sex: F Assigned Patient [facility]: [facility] Current Patient Location: [place] Accession/Order Number: [id number] Exam Date: 05/04/2025 12:50 Report Date: 05/04/2025 14:13 At the request of: ANA SCHUSTER DPOleg Procedure: XR foot RT min 3V RIGHT FOOT - 3 views CLINICAL HISTORY: nonunion 1st MPJ; hallux valgus COMPARISON: Right foot 04/28/2025. FINDINGS: Splint is in place limiting bony detail. Soft tissue swelling and skin kieran are present. Hardware is seen transversing the first MTP joint without hardware complication. Plantar spurring. Moderate degenerative changes involving the hindfoot /forefoot articulations. XR/XR foot RT min 3V IMPRESSION: NO HARDWARE COMPLICATION. Impression dictated by: Dudley Hollins Jr., DFarihaOFariha 05/04/2025 2:13 PM Dictation Location: [facility] Electronically authenticated by: [id number] Y Date: 05/04/2025 14:13
[2025-05-04] MEDS: ACETAMINOPHEN 500 MG TABLET 1000 MG PO ×2 (13:41→20:11)
--- NOTE | 2025-05-04 14:39 | PM.IMCN1 ---
HPI - Internal Medicine CN Data of Consult Requesting Physician: Josiah Sanon Primary Care Provider: Jeanine Rao, RN, X RAY EQUIPMENT MECHANIC Consult Narrative Reason for consult: Hypertension, diabetes. Narrative: Mrs. Aguila is a 59-year-old female with a known diagnosis of sleep apnea, hypertension, hyperlipidemia and diabetes. Patient had right great toe surgery by Dr. Sanon this morning. Patient denies any acute or active symptoms. She denies any chest pain, abdominal pain, nausea or vomiting. She denies any cough, congestion, shortness of breath cc:: CC: Josiah Sanon Review of Systems ROS Status of ROS 10 or more systems reviewed and unremarkable except as noted in history and below [facility] Medical History (Updated 05/04/25 @ 14:41 by Patrica Aly MD) Right foot pain ?M79.671 - Pain in right foot (ICD-10) Pseudarthrosis after fusion or arthrodesis ?M96.0 - Pseudarthrosis after fusion or arthrodesis (ICD-10) Nonunion of joint fusion NEELIMA on CPAP ?G47.33 - Obstructive sleep apnea (adult) (pediatric) (ICD-10) Toe deformity ?M20.60 - Acquired deformities of toe(s), unspecified, unspecified foot (ICD-10) Arthritis ?M19.90 - Unspecified osteoarthritis, unspecified site (ICD-10) PTSD (post-traumatic stress disorder) ?F43.10 - Post-traumatic stress disorder, unspecified (ICD-10) Depression ?F32.A - Depression, unspecified (ICD-10) Panic attacks ?F41.0 - Panic disorder [episodic paroxysmal anxiety] (ICD-10) Anxiety ?F41.9 - Anxiety disorder, unspecified (ICD-10) COVID-19 ?U07.1 - COVID-19 (ICD-10) Migraine ?G43.909 - Migraine, unspecified, not intractable, without status migrainosus (ICD-10) Extremity edema ?R60.0 - Localized edema (ICD-10) Menopause ?Z78.0 - Asymptomatic menopausal state (ICD-10) Neuropathy, cervical (radicular) ?M54.12 - Radiculopathy, cervical region (ICD-10) Hypothyroid ?E03.9 - Hypothyroidism, unspecified (ICD-10) Asthma ?J45.909 - Unspecified asthma, uncomplicated (ICD-10) Diabetes ?E11.9 - Type 2 diabetes mellitus without complications (ICD-10) Foot pain ?M79.673 - Pain in unspecified foot (ICD-10) Hallux rigidus ?M20.20 - Hallux rigidus, unspecified foot (ICD-10) Hallux valgus ?M20.10 - Hallux valgus (acquired), unspecified foot (ICD-10) Surgical History (Updated 04/23/25 @ 13:50 by Alicia Rico NP) History of cardiac catheterization (04/08/25) ?Z98.890 - Other specified postprocedural states (ICD-10) H/O foot surgery (04/07/24) ?Z98.890 - Other specified postprocedural states (ICD-10) H/O foot surgery (01/16/24) ?Z98.890 - Other specified postprocedural states (ICD-10) History of colonoscopy ?Z98.890 - Other specified postprocedural states (ICD-10) History of cardiac catheterization (~2008) ?Z98.890 - Other specified postprocedural states (ICD-10) H/O cervical spine surgery ?Z98.890 - Other specified postprocedural states (ICD-10) History of cardiac catheterization (~2017) ?Z98.890 - Other specified postprocedural states (ICD-10) H/O section ?Z98.891 - History of uterine scar from previous surgery (ICD-10) Hx of tonsillectomy ?Z90.89 - Acquired absence of other organs (ICD-10) Family History Other Family history of diabetes mellitus Family history of hypertension Family history of myocardial infarction Family history of stroke Social History Within the past year, how often did you have a drink containing alcohol: monthly or less Smoking status: Never smoker Second hand tobacco smoke exposure: Yes Non-prescribed substance use: denies use 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 Highest level of school completed/degree received: Master's degree Little interest or pleasure in doing things: not at all Feeling down, depressed, or hopeless: not at all Meds Home Medications and Allergies Home Medications ?Medication ?Instructions ?Recorded ?Confirmed ?Type alprazolam 0.25 mg tablet 0.25 mg PO DAILY PRN anxiety 01/10/24 05/04/25 History aripiprazole 5 mg tablet 5 mg PO DAILY 01/10/24 05/04/25 History ascorbic acid (vitamin C) 1,000 mg 1 g PO DAILY 01/10/24 04/23/25 History capsule aspirin 81 mg tablet,delayed 81 mg PO DAILY 01/10/24 05/04/25 History release (Adult Aspirin Regimen) bisoprolol fumarate 10 mg tablet 10 mg PO DAILY 01/10/24 05/04/25 History calcium carbonate 500 mg PO DAILY 01/10/24 05/04/25 History chlorthalidone 50 mg tablet 50 mg PO DAILY 01/10/24 05/04/25 History duloxetine 60 mg capsule,delayed 120 mg PO DAILY 01/10/24 05/04/25 History release meloxicam 15 mg tablet 15 mg PO DAILY 01/10/24 05/04/25 History metformin 500 mg tablet,extended 1,000 mg PO BID 01/10/24 05/04/25 History release 24 hr montelukast 10 mg tablet 10 mg PO DAILY 01/10/24 05/04/25 History multivitamin (Daily Multi-Vitamin 1 tab PO DAILY 01/10/24 05/04/25 History tablet) trazodone 150 mg tablet 75 mg PO QPM PRN insomnia 01/10/24 05/04/25 History vitamin B complex (Complex B-100 1 tab PO DAILY 01/10/24 05/04/25 History tablet,extended release) levothyroxine 100 mcg tablet 100 mcg PO .ACB 01/16/24 05/04/25 History (Synthroid) amlodipine 5 mg tablet 5 mg PO DAILY 03/30/24 05/04/25 History escitalopram oxalate 10 mg tablet 10 mg PO QPM 03/30/24 05/04/25 History losartan 50 mg tablet 50 mg PO DAILY 03/30/24 05/04/25 History atorvastatin 10 mg tablet 10 mg PO DAILY 02/16/25 05/04/25 History semaglutide 2 mg/dose (8 mg/3 mL) 2 mg subcut QWEEK 02/16/25 05/04/25 History subcutaneous pen injector (Ozempic) zinc 50 mg capsule 50 mg PO DAILY 02/16/25 05/04/25 History alendronate 70 mg tablet 70 mg PO QWEEK 04/23/25 05/04/25 History empagliflozin 25 mg tablet 25 mg PO DAILY 04/23/25 05/04/25 History (Jardiance) estradiol 0.01% (0.1 mg/gram) 1 appful vaginal .twice weekly 04/23/25 05/04/25 History vaginal cream pioglitazone 15 mg tablet 15 mg PO DAILY 04/23/25 05/04/25 History Allergies Allergy/AdvReac Type Severity Reaction Status Date / Time Iodinated Contrast Media Allergy Rash Verified 04/23/25 13:41 shellfish derived Allergy Rash Verified 04/23/25 13:41 lisinopril AdvReac Cough Verified 04/23/25 13:41 Exam Narrative Exam Narrative: [pt is awake and alert. oriented to place, time and person HEENT: [place] conjunctiva and NL buccal mucosa Neck: Supple, no tenderness Endocrine: No Thyromegaly. Vascular: No JVD or carotid bruit. Lymphatic: No cervical lymphadenopathy. Chest: CTA no DTP. Heart RRR, no extra sound or murmur. Abd: Soft, no tenderness, no rebound and no rigidity. Increase abd girth therefore clinically I could not exclude the possibility of intra abd mass or organomegaly. LE: No cyanosis or clubbing, no varices or edema. The right leg is wrapped from the mid calf down to the tip of the toes. Neuro: A A O. Nl speech, comprehension and attention. Nl and symetrical motor and tone examination through out. []] Constitutional Vital Signs, click to edit/add: Last Vital Signs Temp 97.4 F L 05/04/25 13:29 Pulse 73 05/04/25 13:29 Resp 18 05/04/25 13:29 BP 120/68 05/04/25 13:29 Pulse Ox 90 L 05/04/25 13:29 O2 Del Method Room Air 05/04/25 13:29 Internal Medicine - CN: Reslt Labs Labs: Short CBC 05/04/25 Range/Units 08:04 WBC 5.3 (4.0-11.0) 10^3/uL Hgb 14.1 (12.0-16.0) g/dL Hct 41.3 (36.0-48.0) % Plt Count 265 (150-450) 10^3/uL Assessment and Plan Assessment and Plan (1) Hypertension: Qualifiers: Hypertension type: primary hypertension Qualified Code(s): I10 - Essential (primary) hypertension Plan Status post right foot surgery. All surgical related issues including but not limited to pain management, pharmacological DVT prophylaxis, monitoring wound healing, wound dressing, ambulation instructions and outpatient follow-up are to be addressed by orthopedic team. Hypertension Her home medications list was reviewed. Resume amlodipine and losartan at a lower dose in case patient develops postoperative hypotension. Continue beta-mario. Titrate to keep systolic between 130 and 150 Diabetes Patient is on oral medication. I started patient on Accu-Chek with a sliding scale coverage. Obstructive sleep apnea Patient brought her on CPAP machine to use it. I placed an order for patient to use her CPAP machine at home with 2 L of oxygen. Hypothyroidism Continue Synthroid Monitor for potential postoperative issues and/or complications such as delirium, atelectasis, infection, bleed, ileus and others. Thank you Dr. Sanon for consulting me to see this patient. Please call make any question about this report or patient's overall medical condition.
--- NOTE | 2025-05-04 14:44 | SWNOTE1 ---
SW consulted for discharge planning and per the consult pt would like to be discharged home. SW to follow upt with pt later today or tomorrow morning to discuss any discharge needs.
[2025-05-04] MEDS: INSULIN ASPART 300 UNIT/3 ML PEN SUBQ ×2 (17:12→21:35)
[2025-05-04] MEDS: OXYCODONE HCL 5 MG TABLET 10 MG PO (18:28)
[2025-05-04] MEDS: ENOXAPARIN SODIUM 40 MG/0.4 ML SYRINGE SUBQ (20:12)
[2025-05-04] MEDS: METFORMIN HCL 500 MG TAB.ER.24H 1000 MG PO (20:12)
[2025-05-04] MEDS: PREGABALIN 75 MG CAPSULE PO (20:12)
[2025-05-04] MEDS: ESCITALOPRAM 10 MG TABLET PO (21:33)
[2025-05-04] MEDS: OXYCODONE HCL 5 MG TABLET PO (22:31)
[2025-05-05] MEDS: ACETAMINOPHEN 500 MG TABLET 1000 MG PO ×2 (02:06→08:19)
[2025-05-05] MEDS: CEFAZOLIN SODIUM/DEXTROSE,ISO 1 GM/50 ML PREMIX IV ×3 (02:06→16:38)
[2025-05-05 03:36] VITALS: BP 111/71; PULSE 67; TEMP 36.6; O2SAT 94
[2025-05-05 05:37] LABS: Hematocrit 37.2 % (36.0-48.0); Hemoglobin 12.5 g/dL (12.0-16.0); Mean Corpuscular HGB Conc 33.6 g/dL (29.9-35.2); Mean Corpuscular Hemoglobin 29.8 pg (26.7-34.0); Mean Corpuscular Volume 88.8 fL (81.0-99.0); Platelet Count 244 10^3/uL (150-450); Red Blood Count 4.19 10^6/uL (4.20-5.40); White Blood Count 9.7 10^3/uL (4.0-11.0)
[2025-05-05 05:48] LABS: Anion Gap 11.7; Blood Urea Nitrogen 19.0 mg/dL (7.0-18.0); Calcium 9.0 mg/dL (8.5-10.1); Carbon Dioxide 29.0 mmol/L (21.0-32.0); Chloride 103 mmol/L (98-107); Estimated GFR (African America >60 (>=60 mL/min/1.73m^2); Estimated GFR (Non-African Ame >60 (>=60 mL/min/1.73m^2); Glucose 239 mg/dL (74-106); Potassium 3.7 mmol/L (3.5-5.1); Sodium 140 mmol/L (136-145)
[2025-05-05] MEDS: OXYCODONE HCL 5 MG TABLET PO (06:01)
[2025-05-05] MEDS: LEVOTHYROXINE SODIUM 100 MCG TABLET PO (06:02)
[2025-05-05 07:24] VITALS: BP 126/71; PULSE 64; TEMP 36.6; O2SAT 94
[2025-05-05] MEDS: INSULIN ASPART 300 UNIT/3 ML PEN SUBQ ×3 (07:31→16:41)
--- NOTE | 2025-05-05 08:05 | CM.NOTE ---
Rounds made with Dr. Aly, discussed plan of care with pt. Dr. Sanon will see pt today prior to discharge. Pt does have knee scooter and verbalizes understanding of use from the past. PT will evaluate pt today prior to discharge.
[2025-05-05] MEDS: DAPAGLIFLOZIN 5 MG TABLET 10 MG PO (08:17)
[2025-05-05] MEDS: CALCIUM CARBONATE 600 MG TABLET PO (08:18)
[2025-05-05] MEDS: ATORVASTATIN CALCIUM 10 MG TABLET PO (08:18)
[2025-05-05] MEDS: METOPROLOL TARTRATE 100 MG TABLET PO (08:18)
[2025-05-05] MEDS: METFORMIN HCL 500 MG TAB.ER.24H 1000 MG PO (08:18)
[2025-05-05] MEDS: PREGABALIN 75 MG CAPSULE PO (08:18)
[2025-05-05] MEDS: ASCORBIC ACID 500 MG TABLET 1000 MG PO (08:18)
[2025-05-05] MEDS: PIOGLITAZONE 15 MG TABLET PO (08:18)
[2025-05-05] MEDS: LOSARTAN POTASSIUM 25 MG TABLET PO (08:18)
[2025-05-05] MEDS: ASPIRIN 81 MG TABLET.DR PO (08:18)
[2025-05-05] MEDS: AMLODIPINE BESYLATE 5 MG TABLET 2.5 MG PO (08:19)
[2025-05-05] MEDS: MONTELUKAST SODIUM 10 MG TABLET PO (08:19)
[2025-05-05] MEDS: CHOLECALCIFEROL (VITAMIN D3) 125 MCG/5,000 UNIT TABLET PO (08:19)
[2025-05-05] MEDS: ARIPIPRAZOLE 5 MG TABLET PO (08:19)
--- NOTE | 2025-05-05 09:03 | P.PN_ITS ---
Progress Note: Subjective Subjective Interval history: Uneventful night. Patient is feeling well. No chest pain or palpitation. No abdominal pain, nausea or vomiting. Exam Narrative Exam Narrative: [pt is awake and alert. oriented to place, time and person HEENT: [place] conjunctiva and NL buccal mucosa Neck: Supple, no tenderness Endocrine: No Thyromegaly. Vascular: No JVD or carotid bruit. Lymphatic: No cervical lymphadenopathy. Chest: CTA no DTP. Heart RRR, no extra sound or murmur. Abd: Soft, no tenderness, no rebound and no rigidity. Increase abd girth therefore clinically I could not exclude the possibility of intra abd mass or organomegaly. LE: No cyanosis or clubbing, no varices or edema. The right leg is wrapped from the mid calf down to the tip of the toes. Neuro: A A O. Nl speech, comprehension and attention. Nl and symetrical motor and tone examination through out. []] Constitutional Vital Signs, click to edit/add: Last Vital Signs Temp 97.8 F 05/05/25 07:24 Pulse 64 05/05/25 07:24 Resp 16 05/05/25 07:24 BP 126/71 05/05/25 07:24 Pulse Ox 94 L 05/05/25 07:24 O2 Del Method Room Air 05/05/25 07:24 O2 Flow Rate 2 05/05/25 03:36 Progress Note: Objective Labs Labs: Short CBC 05/05/25 Range/Units 04:47 WBC 9.7 (4.0-11.0) 10^3/uL Hgb 12.5 (12.0-16.0) g/dL Hct 37.2 (36.0-48.0) % Plt Count 244 (150-450) 10^3/uL BMP 05/05/25 04:47 Sodium 140 Potassium 3.7 Chloride 103 Carbon Dioxide 29.0 BUN 19.0 H Creatinine 0.91 Glucose 239 H Calcium 9.0 Progress Note: A&P Assessment and Plan (1) Hypertension: Qualifiers: Hypertension type: primary hypertension Qualified Code(s): I10 - Essential (primary) hypertension Plan Status post right foot surgery. All surgical related issues including but not limited to pain management, pharmacological DVT prophylaxis, monitoring wound healing, wound dressing, ambulation instructions and outpatient follow-up are to be addressed by podiatry team. Hypertension, fair control Her home medications list was reviewed. Resume amlodipine and losartan at a lower dose in case patient develops postoperative hypotension. Continue beta- mario. Titrate to keep systolic between 130 and 150 Diabetes, fair but not optimal control, could be related to surgery and stress of surgery and postoperative care Patient is on oral medication. I started patient on Accu-Chek with a sliding scale coverage. Patient will need to follow-up with her PCP for further diabetes management with a goal to keep A1c below 7 and fasting blood sugar less than 125 Obstructive sleep apnea Patient brought her on CPAP machine to use it. I placed an order for patient to use her CPAP machine at home with 2 L of oxygen. Hypothyroidism Continue Synthroid Monitor for potential postoperative issues and/or complications such as delirium, atelectasis, infection, bleed, ileus and others. None existed thus far. Patient could be discharged home from the medical standpoint once cleared by podiatry. Thank you Dr. Sanon for allowing me the opportunity to involved in the care of this very pleasant patient.
[2025-05-05] MEDS: KETOROLAC TROMETHAMINE 30 MG/ML VIAL 15 MG IVP (09:13)
--- NOTE | 2025-05-05 09:30 | SWNOTE1 ---
MER met with pt to discuss dc needs. Pt lives at home alone. Pt has friends, family, and neighbors who help her as needed. Pt's friends will be picking her up when she is ready for discharge. Pt's friend will be staying with her tonight and most of the day tomorrow. Her neighbor will be bringing her food as well. She does not plan on going anywhere until her follow up with Dr. Sanon. Pt voiced she is feeling well today, not too much pain. Pt does have a knee scooter that she will be using, she did this for her last surgery. She will sit on her bottom and scoot up the 4 steps to get in. She has a ramp in the garage if needed. She stated she shoveled the drive way and steps yesterday so she would not have to use the ramp. Pt plans on going home, possibly today. She stated she has great support at home and has no concerns about returning home. No anticipated discharge needs at this time.
--- NOTE | 2025-05-05 09:41 | P.DS_ITS ---
DS: Providers Provider Primary care physician: Jeanine Rao RN, SALES REPRESENTATIVE [employer] Admitting clinician: Josiah Sanon Consults: 05/04/25 12:04 Physical Therapy Eval and Treat Routine Reason for consultation: Gait training Has provider been notified: No 05/04/25 12:06 Consult to Animal Trainer Routine Has provider been notified: No Reason for consult:: Other Other reason:: Discharge planning - patient wants to be d/c home 05/04/25 12:07 Consult to Hospitalist Routine Consulting Provider: Hospitalist Reason for consultation: Medical management Has provider been notified: No Attending physician on discharge: Josiah Sanon Anticipated date of discharge: 05/05/25 DS: Diagnosis Discharge Diagnosis (1) Hypertension: Qualifiers: Hypertension type: primary hypertension Qualified Code(s): I10 - Essential (primary) hypertension (2) Pseudarthrosis after fusion or arthrodesis: (3) Hallux valgus (acquired), right foot: (4) Painful orthopaedic hardware: Plan Patient is s/p revision of right first metatarsal phalangeal joint fusion with excision of nonunion and removal of painful hardware on 05/04/2025 She had no events overnight. Her pain is controlled and feels systemically well therefore may be discharged home. Strict nonweightbearing to her right foot with use of walker/knee scooter/wheelchair Prescriptions for Percocet, Xarelto and cefadroxil were sent to her pharmacy using my office EMR Will follow cultures and pathology results She will follow-up in my office in a week DS: Summary Hospital Course Hospital Course: Patient is a 59-year-old female who was admitted following right foot surgery yesterday for physical therapy, medical management and pain control. Had no events overnight and pain is controlled. She overall is doing well and has been evaluated by physical therapy. She is comfortable being nonweightbearing and I strongly recommended that if she feels as if she will lose her balance she should place partial weight on her right heel to prevent falls. She is to keep the splint clean dry and intact and will follow-up as scheduled in my office. Time Spent with Patient Time attestation: Total time spent providing and/or coordinating discharge services: Time spent: less than 30 minutes Exam Narrative Exam Narrative: Splint is clean dry and intact. CHILD CARE ASSOCIATE to toes is less than 5 seconds. She is able to wiggle her toes without pain. No calf pain on squeeze Constitutional Vital Signs, click to edit/add: Last Vital Signs Temp 97.8 F 05/05/25 07:24 Pulse 64 05/05/25 07:24 Resp 16 05/05/25 07:24 BP 126/71 05/05/25 07:24 Pulse Ox 94 L 05/05/25 07:24 O2 Del Method Room Air 05/05/25 07:24 O2 Flow Rate 2 05/05/25 03:36 DS: Data Data Completed and Pending Labs on day of discharge: Labs from last 24 hours 05/05/25 05/04/25 05/04/25 04:47 21:26 16:38 WBC 9.7 RBC 4.19 L Hgb 12.5 Hct 37.2 MCV 88.8 MCH 29.8 MCHC 33.6 RDW 13.6 Plt Count 244 MPV 10.1 Sodium 140 Potassium 3.7 Chloride 103 Carbon Dioxide 29.0 Anion Gap 11.7 BUN 19.0 H Creatinine 0.91 Est GFR ( Amer) >60 Est GFR (Non-Af Amer) >60 BUN/Creatinine Ratio 20.9 Glucose 239 H Calcium 9.0 POC Glucose 245 H 298 H Preliminary micro results at discharge 05/04/25 11:00 - Preliminary Toe Right Great 05/04/25 11:00 Acid Fast Bacilli Culture - Preliminary Toe Right Great Discharge Plan Discharge Disposition: Home, Self-Care Condition: Good Discharge Medications: Continued multivitamin [Daily Multi-Vitamin] Tablet 1 tab PO DAILY metformin 500 mg tablet extended release 24 hr 1,000 mg PO BID bisoprolol fumarate 10 mg tablet 10 mg PO DAILY montelukast 10 mg tablet 10 mg PO DAILY aspirin [Adult Aspirin Regimen] 81 mg tablet,delayed release (DR/EC) 81 mg PO DAILY aripiprazole 5 mg tablet 5 mg PO DAILY Complex B-100 Tablet Extended Release 1 tab PO DAILY alprazolam 0.25 mg tablet 0.25 mg PO DAILY PRN (Reason: anxiety) ascorbic acid (vitamin C) 1,000 mg capsule 1 g PO DAILY calcium carbonate 500 mg calcium (1,250 mg) tablet,chewable 500 mg PO DAILY duloxetine 60 mg capsule,delayed release(DR/EC) 120 mg PO DAILY trazodone 150 mg tablet 75 mg PO QPM PRN (Reason: insomnia) levothyroxine [Synthroid] 100 mcg tablet 100 mcg PO .ACB losartan 50 mg tablet 50 mg PO DAILY amlodipine 5 mg tablet 5 mg PO DAILY escitalopram oxalate 10 mg tablet 10 mg PO QPM atorvastatin 10 mg tablet 10 mg PO DAILY Ozempic 2 mg/dose (8 mg/3 mL) pen injector 2 mg SUBCUT QWEEK zinc 50 mg capsule 50 mg PO DAILY Jardiance 25 mg tablet 25 mg PO DAILY pioglitazone 15 mg tablet 15 mg PO DAILY alendronate 70 mg tablet 70 mg PO QWEEK estradiol 0.01 % (0.1 mg/gram) cream 1 appful VAGINAL .twice weekly Changed meloxicam 15 mg tablet 15 mg PO DAILY PRN (Reason: Pain) Qty: 0 0RF No Action chlorthalidone 50 mg tablet 50 mg PO DAILY Follow Up Appointments: Dr Sanon May @10:30 Dr Jeanine Rao May 1211:30 [address] [facility] [address] [place]. Referrals: Josiah Sanon DPM [Physician, Podiatry] Activity: as per physical therapy Diet: advance to your usual diet Print Language: [place]
[2025-05-05] MEDS: OXYCODONE HCL 5 MG TABLET 10 MG PO ×2 (11:05→15:29)
[2025-05-05 11:18] VITALS: BP 129/74; PULSE 68; TEMP 36.8; O2SAT 94
== END 2025-05-05 17:59 | disposition home or self-care (01) ==
LOC: SURGOUT 08:00 → MS 13:15
PROVIDERS: Anesthesiology; Internal Medicine; PCP Nurse Practitioner; Visit Provider Podiatrist Foot & Ankle Surgery
PROC: (CPT 1480; principal; 2025-05-04 09:00)
DX: M96.0 Pseudarthrosis after fusion or arthrodesis (principal); M20.11 Hallux valgus (acquired), right foot; M20.21 Hallux rigidus, right foot; T84.84XA Pain due to internal orthopedic prosthetic devices, implants and grafts, initial encounter; I25.10 Atherosclerotic heart disease of native coronary artery without angina pectoris; E11.9 Type 2 diabetes mellitus without complications; Z79.84 Long term (current) use of oral hypoglycemic drugs; I10 Essential (primary) hypertension; G47.33 Obstructive sleep apnea (adult) (pediatric); E03.9 Hypothyroidism, unspecified; Z86.16 Personal history of COVID-19; M79.671 Pain in right foot; Z79.85 Long-term (current) use of injectable non-insulin antidiabetic drugs; J45.909 Unspecified asthma, uncomplicated
CPT/HCPCS: 20680; 28750; 36415; 64445; 64450; 73630; 76000; 76942; 80048; 82948; 85025; 85027; 87070; 87075; 87102; 87116; 87205; 87206; 96365; 96366; 96375; 97161; 99999; C1713; J0131; J0690; J1100; J1200; J1650; J1885; J2250; J2371; J2405; J2704; J2795; J3010; J3373

== ENCOUNTER 2025-05-24 10:50 | Outpatient (OUT) | payer OTHER, SELFPAY ==
--- OUTSIDE RECORDS SUMMARY | 2024-04-07 03:00 | XMS_ITS ---
Author Organization The [facility] in [place] Address [address] [place] [address] Care Team Providers Care Adoption Counselor Name Role Phone Jeanine Erickson RN Primary Care Provider Josiah Zabala [phone] REASON FOR VISIT RT 1st MPJ fusion Encounters Encounter Location Date Provider Diagnosis THE [address] [address] 04/07/2024 Josiah Sanon Plan Of Treatment No Information Progress Notes * Patti DUNNTerranceB:[birth year] (59 yo F)Acc No.[id number]:04/07/2024 UNLOCKED PROGRESS NOTE Patient:?Nadeen DUNN :?Josiah Sanon DPM, MSDOB:1965???Age: 58 Y???Sex:FemaleDate:4Phone:[phone]:[address] [place] [address] [address], [place], [place]Zuz:DOMINICK GonzalezCheck Out:08:39 AM EST * * Electronic signature of Josiah Sanon DPM on 05/24/2025 at 11:01 AM ESTSign off status: PendingVisit Status:?CHK (Check Out) * Provider: Silvio Sanon DPM, [place] Date: 06/07/2023 Generated for Printing/Faxing/eTransmitting on:?05/24/2025 11:01 AM EST
--- OUTSIDE RECORDS SUMMARY | 2024-04-07 03:45 | XMS_ITS ---
Author Organization The [facility] in [place] Address [address] [place] [address] Care Team Providers Care Dessert Cup Machine Feeder Name Role Phone Jeanine Erickson RN Primary Care Provider Josiah Zabala [phone] REASON FOR VISIT 6 week f/u Encounters Encounter Location Date Provider Diagnosis [facility] (PODIATRY) [address] [place] [address] [place] [address] 04/07/2024 Josiah Sanon Plan Of Treatment No Information Progress Notes * Mandeep DUNNMoises:[birth year] (59 yo F)Acc No.[id number]:04/07/2024 UNLOCKED PROGRESS NOTE Follow Up Patient: Nadeen ADAMS :?Josiah Sanon DPM, MSDOB:1965???Age: 58 Y???Sex:FemaleDate:4Phone:[phone]:[facility], [facility]Wtp:DOMINICK Gonzalez Subjective: * Chief Complaints: * 1 . 6 week f/u. * Medical History: Objective: * Vitals: Assessment: Plan: * Treatment: * * Electronic signature of Josiah Sanon DPM on 05/24/2025 at 11:00 AM ESTSign off status: PendingVisit Status:?CANC (Cancelled) * Provider: Silvio Sanon DPM, [place] Date: 1 06/07/2023 Generated for Printing/Faxing/eTransmitting on:?05/24/2025 11:00 AM EST
--- OUTSIDE RECORDS SUMMARY | 2024-10-06 03:45 | XMS_ITS ---
Author Organization The [facility] in [place] Address [address] [place] [address] Care Team Providers Care Runstitching Machine Operator Name Role Phone Jeanine Erickson RN Primary Care Provider Josiah Zabala [phone] REASON FOR VISIT 4 month f/u Encounters Encounter Location Date Provider Diagnosis [facility] (PODIATRY) [address] [place] [address] [place] [address] 10/06/2024 Josiah Sanon Plan Of Treatment No Information Progress Notes * Mandeep DUNNMoises:[birth year] (59 yo F)Acc No.[id number]:10/06/2024 UNLOCKED PROGRESS NOTE Follow Up Patient: Nadeen ADAMS :?Josiah Sanon DPM, MSDOB:1965???Age: 59 Y???Sex:FemaleDate:10/06/2024Phone:[phone]:[facility], [id number]:DOMINICK Gonzalez Subjective: * Chief Complaints: * 1 . 4 month f/u. * Medical History: Objective: * Vitals: Assessment: Plan: * Treatment: * * Electronic signature of Josiah Sanon DPM on 05/24/2025 at 11:01 AM ESTSign off status: PendingVisit Status:?OFF CANC (OFFICE CANCEL) * Provider: Silvio Sanon DPM, MS Date: 0 10/06/2024 Generated for Printing/Faxing/eTransmitting on:?05/24/2025 11:01 AM EST
--- OUTSIDE RECORDS SUMMARY | 2025-05-17 14:20 | XMS_ITS | Encounter Summary ---
Author Organization [facility] Address [address] [place] [address] Care Team Providers Care Insurance Examining Clerk Name Role Phone IndyJose yu Primary Care Provider [phone] Jeanine Rao NEIGHBORHOOD CONSERVATION OFFICER Unavailable Reason for Visit * ReasonCommentsDiabetesFollow-up Encounter Details DateTypeDepartmentCare Team (Latest Contact Info)Niufyycjqvf68/15/2025 2:20 PM ESTOffice Visit [facility] [address] [place] [address] Jamie Schwartz MD [address] [place] [address] Type 2 diabetes mellitus with hyperglycemia, without long-term current use of insulin (HCC) (Primary Dx); Primary hypertension; Vitamin D deficiency; Acquired hypothyroidism; Encounter for dietary consultation; Class 2 severe obesity due to excess calories with serious comorbidity and body mass index (BMI) of38.0 to 38.9 in adult Social History Tobacco UseTypesPacks/DayYears UsedDateSmoking Tobacco: NeverSmokeless [...] times a week01/22/2024How often do you attend taoism or denominational services?More than 4 times per year01/22/2024o you belong to any clubs or organizations such as taoism groups, unions, fraternal or athletic groups, or [...] 01/22/2024HQ-2AnswerDate RecordedPatient Health Questionnaire-2 Score2 03/23/2025[facility] [place] [facility] - Occupational Stress QuestionnaireAnswerDate [...] No01/22/2024CommentsNoSex and Gender InformationValueDate RecordedSex Assigned at IhmjuOfrwko09/16/2023 9:54 AM EDTLegal ActYclqqh05/15/2023 6:42 PM EDTGender CoxwyhybUejolz99/15/2023 6:42 PM EDTSexual OrientationNot on file documented as of this encounter Last Filed Vital Signs Vital SignReadingTime TakenCommentsBlood Pressure--Glaqn048905/17/2025 2:23 PM EST Temperature--Respiratory Medg651607/18/2024 2:23 PM ESTOxygen Ejohhvibxf67% 05/17/2025 2:23 PM ESTInhaled Oxygen Concentration--Ehukdp30.8 kg (220 lb) 05/17/2025 2:23 PM UXBNgbqoc347 cm (5' 3 )05/17/2025 2:23 PM ESTBody Mass Index 38.9705/17/2025 2:23 PM ESTdocumented in this encounter Progress Notes * Jamie Schwartz MD - 05/17/2025 2:20 PM EST Nadeen Aguila is a 59 y.o. female No ref. provider found presents with chief complaint of Diabetes and Follow-up HPI: IM : 05/2025 Follow-up visit 05/17/2025 A1c in March/2025 7.7 currently on Ozempic 2 mg, metformin 500 2 tablets twice a day, Jardiance 25 mg once a day, and last visit we added Actos 15 mg once a day, CGM 0-75-25 avg 162 02/2025 History of Present Illness The patient is a new patient sent from Jeanine Rao NP for uncontrolled diabetes. A1c is 7.2 [...] break Lab Results Component Value Date HGBA1C 7.7 (H) 03/23/2025 HGBA1C 7.2 02/16/2025 HGBA1C 6.8 (H) 12/11/2024 Lab Results Component Value Date GLU 195 05/17/2025 GLU 3+ (A) 03/23/2025 GLU 179 (H) 03/23/2025 07/10/2024 9:10 AM 09/14/2024 9:09 AM 02/16/2025 2:31 PM 03/02/2025 11:40 AM 03/23/2025 9:05 AM 05/03/2025 9:11 AM 05/17/2025 2:23 PM Vitals BMI 38.44 kg/m2 39.11 kg/m2 39.29 kg/m2 39.5 kg/m2 40.18 kg/m2 40 kg/m2 38.97 kg/m2 BSA (m2) 2.09 m2 2.11 m2 2.12 m2 2.12 m2 2.14 m2 2.13 m2 2.11 m2 Systolic 128 100 100 110 112 100 Diastolic 84 56 68 72 72 72 Heart Rate 76 76 73 74 63 71 66 SpO2 92 % 94 % 94 % 94 % 95 % 99 % 97 % Temp 95.2 ??F 98.3 ??F 99.1 ??F 98.3 ??F 98.1 ??F Resp 18 18 16 18 18 16 Height (in) 5' 3 5' 3 5' 3 5' 3 5' 3 5' 3 5' 3 Weight (lb) 217 220.8 221.8 223 226.8 225.8 220 Visit Report Report Report Report Report Report Report Report ASSESSMENT AND PLAN: Assessment/Plan Diagnoses and all orders for this visit: Type 2 diabetes mellitus with hyperglycemia, without long-term current use of insulin ([facility]) - POCT glucose manually resulted We will continue his Ozempic 2 mg once weekly, metformin 500 mg 2 tablets twice a day, Jardiance 25mg once a day Actos 15 mg once a day, sample given for CGM Primary hypertension Vitamin D deficiency Acquired hypothyroidism Encounter for dietary consultation Class 2 severe obesity due to excess calories with serious comorbidity and body mass index (BMI) of38.0 to 38.9 in adult Follow up in about 4 months (around 09/15/2025). documented in this encounter Plan of Treatment DateTypeDepartmentCare Team (Latest Contact Info)Mnoiccugira26/21/2026 1:00 PM ESTAncillary Procedure [facility] [address] [facility] [place] [address] 06/23/2025 2:30 PM ESTEducation [facility] [address] [place] [address] Cristina Escalante, NEIGHBORHOOD CONSERVATION OFFICER [address] [place] [address] 06/30/2025 10:00 AM ESTOffice Visit [facility] [address] [place] [address] Jeanine Rao NP [address] [place] [address] 09/13/2025 2:40 PM EDTOffice Visit [facility] [address] [place] [address] Jamie Schwartz MD [address] [place] [address] 04/05/2026 10:00 AM ESTOffice Visit [facility] [address] [place] [address] Amalia Cheng, PA [address] [place] [address] documented as of this encounter Procedures Procedure NamePriorityDate/TimeAssociated DiagnosisCommentsPOCT GLUCOSERoutine 05/17/2025 2:32 PM EST Type 2 diabetes mellitus with hyperglycemia, without long-term current use of insulin (HCC) documented in this encounter Results * POCT glucose manually resulted (05/17/2025 2:32 PM EST)ComponentValueRef Range Test MethodAnalysis TimePerformed AtPathologist SignatureGlucose Blood, NPS171 mg/dLSpecimen (Source)Anatomical Location / LateralityCollection Method / VolumeCollection TimeReceived TimeBloodCapillary blood specimen / Unknown 05/17/2025 2:32 PM EST Narrative Authorizing ProviderResult TypeResult StatusJamie Schwartz MDPOINT OF CARE TEST ENTER/EDIT ORDERABLESFinal Result documented in this encounter Visit Diagnoses Diagnosis Type 2 diabetes mellitus with hyperglycemia, without long-term current use of insulin (HCC)- Primary Primary hypertension Unspecified essential hypertension Vitamin D deficiency Acquired hypothyroidism Unspecified hypothyroidism Encounter for dietary consultation Class 2 severe obesity due to excess calories with serious comorbidity and body mass index (BMI) of38.0 to 38.9 in adult documented in this encounter Additional Health Concerns AssessmentNoted TimePHQ-9 Depression Total Score: 9:10 AM EDT documented as of this encounter Care Teams Team MemberRelationshipSpecialtyStart DateEnd Date Jose Putnam DO [address] [place] [address] PCP - GeneralFamily Medicine11/09/22 Jeanine Rao NP [address] [place] [address] Nurse PractitionerFamily Medicine11/09/22documented as of this encounter
--- OUTSIDE RECORDS SUMMARY | 2025-05-18 10:59 | XMS_ITS | Encounter Summary ---
Author Organization [facility] Address [address], [address] [place] [address] Care Team Providers Care Territory Account Representative Name Role Phone JoselineJeanine gustafson Liban CARVALHO - CURLY Primary Care Provider [phone] Encounter Details DateTypeDepartmentCare Team (Latest Contact Info)Khvmyrsepmi88/16/2025 10:59 AM EST - 05/18/2025 11:59 PM ESTHospital Encounter [facility] [address] [place] [address] Rabia Avalos SLP Discharge Disposition: Home or Self Care Social History Tobacco UseTypesPacks/DayYears UsedDateSmoking Tobacco: NeverSmokeless Tobacco: NeverAlcohol UseStandard Drinks/WeekCommentsNo0 (1 standard drink = 0.6 oz pure alcohol)[facility] UtilitiesAnswerDate RecordedIn the past 12 months has the electric, gas, oil, or water Food Runner threatened to shut off services in your home?No 12/15/2024PHQ-2AnswerDate RecordedPHQ-9 Total Zaxzu2446/17/2025Hunger Vital Sign AnswerDate RecordedWithin the past 12 [...] or from getting things needed for daily living?12/15/2024Housing Stability Vital SignAnswerDate RecordedIn the last 12 months, was there a time when you were not able to pay the mortgage or rent on time?12/15/2024In the past 12 months, how many times have you moved where you were living?t any time in the past 12 months, were you homeless or living in a care home (including now)?12/15/2024Food Insecurity AnswerDate RecordedWithin the past 12 months, you worried that your food would run out before you got the money to buymore.Within the past 12 months, the food you bought just didn't last and you didn't have money to get more.CommentsNoSex and Gender InformationValueDate Recorded Sex Assigned at BirthNot on fileLegal XcfOsarlw45/10/2013 2:03 PM ESTGender IdentityNot on fileSexual OrientationNot on filedocumented as of this encounter Medications at Time of Discharge MedicationSigDispense QuantityRefillsLast FilledStart DateEnd Date aspirin 81 MG EC tablet Take 1 tablet by mouth daily amLODIPine (NORVASC) 5 MG tablet Take 1 tablet by mouth every morning ARIPiprazole (ABILIFY) 5 MG tablet Take 1 tablet by mouth every beukzuq8102/26/2024 Ascorbic Acid (VITAMIN C) 500 MG CAPS [...] 2 units weekly will be switching to xfytneft26/03/2024 zinc gluconate 50 MG tablet Take 1 [...] by mouth dailydocumented as of this encounter Progress Notes * Rabia Avalos, ARLEN - 05/18/2025 11:00 AM EST [facility] Outpatient Speech Therapy DAILY TREATMENT NOTE Date: 05/18/2025 Patient???s Name: Nadeen Aguila Date of : 1965 (59 y.o.) Gender: female [facility] #: [id number] Referring physician: Assessment Summary: r13.12 Oropharyngeal Dysphagia Precautions: INSURANCE Visit Information TAXATION ACCOUNTANT Insurance Information: Aenta Total # of Visits to Date: 1 No Show: 0 Canceled Appointment: 0 Progress Note Due Date: 08/16/25 08/16/25 Plan of Care/Recert ends PAIN [x]No []Yes Pain Rating (0-10 pain scale): 0 Location: N/A Pain Description: NA SUBJECTIVE Patient presents to clinic with self. SHORT TERM GOALS/ TREATMENT SESSION: Subjective report: Patient seen for dysphagia tx following outpatient bedside swallow evaluation. Patient was providedwith extensive education re: results of MBSS, swallowing strategies, and swallowing exercises. Goal 1: Patient will complete oropahryngeal exercises 10-15 x each independently to improve pharyngeal phase of swallowing. ST educated patient on completion of swallowing exercises. Patient completed the following exercises. Effortful swallow x 9 Lingual pull backs x 15 Catherine x [address] educated patient in completion of Shaker exercise; however, did not complete this date due to recent surgery and difficulty transferring. []Met [x]Partially met []Not met Goal 2: Patient will consume solids without globus sensation in 80% of opportunities. Patient demonstrated reduced globus sensation with use of breath hold+effortful swallow as well as head turn left prior to the swallow. []Met [x]Partially met []Not met Goal 3: Patient will be compliant with home exercsie program. ST initiated HEP this date with patient. Patient verbalized understanding of HEP. []Met [x]Partially met []Not met DELIMER GOALS/ TREATMENT SESSION: Goal 1: Patient will consume a meal or snack with no overt s/sx of aspiration/penetration or globussensation in 90% of opportunities. Goal progressing. See STG data []Met [x]Partially met []Not met EDUCATION/HOME EXERCISE PROGRAM (HEP) New Education/HEP provided to patient/family/caregiver: See above Method of Education: [x]Discussion []Demonstration [] Written []Other Evaluation of Patient???s Response to Education: [x]Patient and or caregiver verbalized understanding []Patient and or Caregiver Demonstrated without assistance []Patient and or Caregiver Demonstrated with assistance []Needs additional instruction to demonstrate understanding of education ASSESSMENT Patient tolerated today???s treatment session: [x] Good [] Fair [] Poor Limitations/difficulties with treatment session due to: N/A []Pain []Fatigue []Other medical complications []Other Comments: PLAN [x]Continue with current plan of care []Medical ???Hold?? []I???Hold?? per patient request [] Change Treatment plan: [] Insurance hold __ Other Minutes Tracking: TAXATION ACCOUNTANT Individual Minutes Time In: 1135 Time Out: 1200 Minutes: 25 Charges: 1 Electronically signed by: Rabia Avalos M.S., CCC-TAXATION ACCOUNTANT Date:05/18/2025 documented in this encounter Plan of Treatment DateTypeDepartmentCare Team (Latest Contact Info)Thevckownbg62/23/2025 11:45 AM ESTAppointment [facility] Speech Therapy [address] [place] [phone] Rabia Avalos SLP 05/31/2025 10:30 AM ESTAppointment [facility] Speech Therapy [address] [place] [phone] Rabia Avalos SLP 06/07/2025 10:30 AM ESTAppointment [facility] Speech Therapy [address] [place] [address] Rabia Avalos SLP 06/14/2025 11:15 AM ESTAppointment [facility] Speech Therapy [address] [place] [address] Rabia Avalos SLP 06/28/2025 2:15 PM ESTOffice Visit [facility] [place] [phone] Victoria Chiang DO [address] [place] [address] [phone] yearly/repeat pap06/29/2025 11:00 AM ESTAppointment [facility] Speech Therapy [address] [place] [phone] Rabia Avalos SLP 08/02/2025 9:00 AM ESTOffice Visit [facility] CARDIOLOGY Part of [address] [phone] Linda Ayala MD [address] [place] [phone] Establish caredocumented as of this encounter Visit Diagnoses Not on filedocumented in this encounter Care Teams Team MemberRelationshipSpecialtyStart DateEnd Date Jeanine Rao, AGILE TESTER - MOLDING FITTER [address] [place] [address] PCP - Osrpxys70/14/16documented as of this encounter
--- OUTSIDE RECORDS SUMMARY | 2025-05-19 11:30 | XMS_ITS | Encounter Summary ---
Author Organization [facility] Address [address] [place] [address] Care Team Providers Care Slip Cover Maker Name Role Phone IndyJose yu Primary Care Provider [phone] Jeanine Rao COLLAR STARCHER Unavailable Reason for Visit * Consultation (Routine) - AuthorizedSpecialtyDiagnoses / ProceduresReferred By ContactReferred To ContactFamily Medicine Diagnoses Type 2 diabetes mellitus without complication, without long-term current use of insulin (HCC) Procedures OR OFFICE/OUTPATIENT NEW HIGH MDM 60 MINUTES Jeanine Rao, COLLAR STARCHER [address] [place] [address] Phone: tel: fax: Douglas Spivey RN Referral IDStatusReasonStart DateExpiration DateVisits RequestedVisits [id number] Specialty Services Required / Encounter Details DateTypeDepartmentCare Team (Latest Contact Info)Mpzqajnjioa87/17/2025 11:30 AM ESTEducation [facility] [address] [place] [address] Cristina Escalante, COLLAR STARCHER [address] [place] [address] Social History Tobacco UseTypesPacks/DayYears UsedDateSmoking Tobacco: NeverSmokeless [...] times a week01/22/2024How often do you attend mormon or quaker services?More than 4 times per year01/22/2024o you belong to any clubs or organizations such as mormon groups, unions, fraternal or athletic groups, or [...] heating?Somewhat hard 01/22/2024HQ-2AnswerDate RecordedPatient Health Questionnaire-2 Score2 03/23/2025[facility] [place] of Occupational Health - Occupational Stress QuestionnaireAnswerDate [...] or living in a care home (including now)? No01/22/2024CommentsNoSex and Gender InformationValueDate RecordedSex Assigned at MkhofUlzbwc25/16/2023 9:54 AM EDTLegal UvlSbugsf36/15/2023 6:42 PM EDTGender TfuuvdqzCmtimd53/15/2023 6:42 PM EDTSexual OrientationNot on file documented as of this encounter Plan of Treatment DateTypeDepartmentCare Team (Latest Contact Info)Hkucgkdqihy16/21/2026 1:00 PM ESTAncillary Procedure [facility] [address] [place] [address] 06/23/2025 2:30 PM ESTEducation [facility] [address] [place] [address] Cristina Escalante, COLLAR STARCHER [address] [place] [address] 06/30/2025 10:00 AM ESTOffice Visit [facility] [address] [place] [address] Jeanine Rao, COLLAR STARCHER [address] [place] [address] 09/13/2025 2:40 PM EDTOffice Visit [facility] [facility] [address] [place] [address] Jamie Schwartz MD [address] [place] [address] 04/05/2026 10:00 AM ESTOffice Visit [facility] [place] [facility] [address] [place] [phone] Amalia Cheng, PA [address] [place], [place] [phone] documented as of this encounter Visit Diagnoses Not on filedocumented in this encounter Additional Health Concerns AssessmentNoted TimePHQ-9 Depression Total Score: 9:10 AM EDT documented as of this encounter Care Teams Team MemberRelationshipSpecialtyStart DateEnd Date Jose Putnam DO [address] [place] [address] PCP - GeneralFamily Medicine11/09/22 Jeanine Rao, COLLAR STARCHER [address] [place] [address] Nurse PractitionerFamily Medicine11/09/22documented as of this encounter
--- OUTSIDE RECORDS SUMMARY | 2025-05-24 10:59 | XMS_ITS | Patient Health Record ---
Author Organization [facility] [place] Address [address] [place] [address] Care Team Providers Care Dispensing Audiologist Name Role Phone Jeanine Erickson RN Primary Care Provider Ana Zabala [phone] Allergies Allergen (clinical drug ingredient) Drug/Non Drug Allergy documented on EMR Reaction Allergy Type Onset Date Status lisinopril Lisinopril Unknown Drug Allergy ActiveShellfish (FN)Shellfish-derived ProductshivesDrug AllergyActive Results Component Value Reference Range Notes XR foot RT min 3V (Not yet r eviewed by provider) Interpretation: Performing Lab: Notes/Report: Source Facility: [place] [address] XRay Report Signed Patient: AISHWARYA DUNN MR#: [id number] : 1965 Acct:[id number] Age/Sex: 58 / F ADM Date: 06/30/24 Loc: RAD Attending Dr: Ana Sanon D.P.M. Ordering Physician: Ana Sanon D.P.M. Date of Service: 06/30/24 Procedure(s): XR foot RT min 3V Accession Number(s): [id number] cc: Ana Sanon D.P.M.; Jeanine Rao NP [place] [phone] Patient Name: AISHWARYA DUNN MRN: [id number] date: 1965 Sex: F Assigned Patient Location: RAD Current Patient Location: RAD Accession/Order Number: [id number] Exam Date: 06/30/2024 08:20 Report Date: 06/30/2024 [...] Signed By: 06/30/24 1030 DD/ 1027 TD/TT: Prekindergarten Teacher: XR foot RT min 3V (Not yet r eviewed by provider) Interpretation: Performing Lab: Notes/Report: Source Facility: [place] [address] XRay Report Signed Patient: AISHWARYA DUNN MR#: [id number] : 1965 Acct:[id number] Age/Sex: 59 / F ADM Date: 10/06/24 Loc: RAD Attending Dr: Ana Sanon D.P.M. Ordering Physician: Ana Sanon D.P.M. Date of Service: 10/06/24 Procedure(s): XR foot RT min 3V Accession Number(s): [id number] cc: Ana Sanon D.P.M.; Jeanine Rao NP [place] [address] Patient Name: AISHWARYA DUNN MRN: [id number] date: 1965 Sex: F Assigned Patient Location: [facility] Current Patient Location: [facility] Accession/Order Number: [id number] Exam Date: 10/06/2024 10:51 Report Date: 10/06/2024 11:02 At the request of: ANA SANON DPM Procedure: XR foot RT min 3V RIGHT [...] Jr., D.O. 10/06/2024 11:02 AM Dictation Location: [place] [address] Electronically authenticated by: [id number] Y Date: 10/06/2024 11:02 Dictated By: Dudley Hollins M.D. Signed By: 10/06/24 1104 DD/ 1102 TD/TT: Prekindergarten Teacher: Reason For Referral No Information Medications Medication [...] Hyperglycemia due to type 2 diabetes mellitus (402253893608876) Type 2 diabetes mellitus with hyperglycemia (E11.65) ActiveconfirmedProblemAcquired hallux valgus (13701244)Hallux valgus (acquired), right foot (M20.11)ActiveconfirmedProblemAcquired hallux valgus (50999187)Hallux valgus (acquired), left foot (M20.12)ActiveconfirmedProblemAcquired hallux rigidus (4357150)Hallux rigidus, right foot (M20.21)ActiveconfirmedProblem Acquired hallux rigidus (9939699)Hallux rigidus, left foot (M20.22)Active confirmedProblemAsthma (747392403)Asthma (J45.909)ActiveconfirmedProblemInsomnia (107682247)Insomnia (G47.00)ActiveconfirmedProblemPain in right foot (322557947289574)Right foot pain (M79.671)ActiveconfirmedProblemAcquired hypothyroidism (552093144)Acquired hypothyroidism (E03.9)ActiveconfirmedProblem Pain in left foot (039582783232113)Left foot pain (M79.672)Activeconfirmed ProblemDiabetes mellitus (32852074)Diabetes mellitus (E11.9)Activeconfirmed Vital Signs Heart Rate 78 /min 06/30/2024 Nmjjceazrel11.0 degrees Osubabzbiv88/28/3573Bzozwmwz59 %06/30/20242474Urtalz81 in 06/30/2024 Encounters Encounter Location Date Provider Diagnosis [facility] (PODIAT[facility]) [address] [place] [address] [place] [address] 06/30/2024 Ana Wayander Right foot pain M79.671 and Hallux rigidus, right foot M20.21 Assessments Encounter Date Diagnosis (ICD Code) Assessment Notes Treatment Notes Treatment Clinical Notes Section Notes 06/30/2024 Right foot pain (ICD-10 - M79.67 1) 06/30/2024Hallux rigidus, right foot (ICD-10 - M20.21)Patient is nearly 3 months status post first MPJ fusion and is doing very well. Oblique projection on x- rays demonstrate interval bone healing however on the [...] to 3 months with weightbearing foot x-rays. Plan Of Treatment Pending Test Test Name [...] Insured Coverage Start Date Coverage End Date CASEY SONIO [address] [place] [address] [id number] Aishwarya Dunn Self - patient is the insured Medical (General) History Medical History History ICD Code asthma diabetesheart diseasehypertensionthyroidSurgical History Surgery Date(Month/Year) tonsillectomy sectionheart xtpi5582right first metatarsal phalangeal joint ihyxmv3404/07/2024
--- OUTSIDE RECORDS SUMMARY | 2025-05-24 11:00 | XMS_ITS | Clinical Summary ---
Author Organization [facility] Address [address], [address] [place] [address] Care Team Providers Care Tip Tester Name Role Phone Jeanine Rao Liban CARVALHO - CURLY Primary Care Provider [phone] Allergies Active AllergyReactionsCriticalityNoted NkglCaczaqrkSrcayde89/11/2013 Heart Cath dye LisinoprilCough,Other (See Comments)11/12/2022Shellfish Protein-Containing Drug Rfntqndo53/18/2013 Medications MedicationSigDispense QuantityRefillsLast FilledStart DateEnd DateStatus therapeutic [...] tablet Take 1 tablet by mouth every rxuqgry4202/26/2024ctive Ascorbic Acid (VITAMIN C) 500 MG CAPS [...] 2 units weekly will be switching to wgoruocn85/03/2024ctive zinc gluconate 50 MG tablet Take 1 tablet by mouth dailyActive estradiol (ESTRACE VAGINAL) 0.1 MG/GM vaginal cream Place 1 g vaginally daily for 14 days Then twice weekly 42 g 5Active aspirin 81 MG EC tablet Take 1 tablet by mouth dailyActive Active Problems ProblemNoted DateDiagnosed DateAcquired lzwldlzexbkrij80/09/2023cute post- traumatic stress kwuxwjhq09/09/0647Zuilmxc63/09/2023 Assessment & Plan (03/31/2025 12:09 PM EDT): Degenerative cervical disc11/09/2022Environmental and seasonal allergies 11/09/20224731Pxspwrhp66/09/2023Mild intermittent asthma without complication 11/09/2022 Assessment & Plan (03/31/2025 12:09 PM EDT): Obesity, rmjqhurifhc45/09/2023anic disorder with xohkbzcssjx57/09/2023ure yuksnzbrrxhplkgionis36/09/2023Type 2 diabetes mellitus without complication, without long-term current use of lhgpegy8411/09/2022 Assessment & Plan (03/31/2025 12:09 PM EDT): Chronic, at goal (stable), medication adherence emphasized and lifestyle modifications recommended Vitamin D zaprczqdyj20/09/2023bnormal cardiovascular stress test07/21/2017Panic attack as reaction to vrkrtp8207/20/2017 Assessment & Plan (03/31/2025 12:09 PM EDT): Severe single current episode of major depressive disorder, without psychotic mmyjpmuf66/17/2018Hypertension Assessment & Plan (03/31/2025 12:09 PM EDT): Chronic, at goal (stable), continue current treatment plan, medication adherence emphasized, and lifestyle modifications recommended Diabetes mellitus Resolved Problems ProblemNoted DateDiagnosed DateResolved DateChest pain Encounters DateTypeDepartmentCare KezdInkhvtgoqnr49/16/2025 10:59 AM EST - 05/18/2025 11:59 PM ESTHospital Encounter [facility] Speech Therapy [address] [place], [place] [id number] Rabia Avalos, BRANCH MAKER Discharge Disposition: Home or Self Care04/26/2025 12:21 PM EST - 04/28/2025 11:59 PM ESTHospital Encounter [facility] Radiology [address] [place], [place] [phone] Radiologist, [facility] Dysphagia, pharyngoesophageal phase Discharge Disposition: Home or Self Care04/15/2025Transcribe Orders [facility] Pre Access [address] [place] [address] Jeanine Rao, FLIGHT LINE SERVICE ATTENDANT - MACHINE BUFFER Dysphagia, pharyngoesophageal phase (Primary Dx)04/12/2025 10:25 AM EST - 04/14/2025 11:59 PM ESTHospital Encounter [facility] Radiology [address] [place] [address] Abnormal swallowing Discharge Disposition: Home or Self Care04/08/2025 1:00 PM EST - 04/08/2025 2:00 PM ESTSurgery [facility] Cardiac Cath/IR Lab [address] [place] [address] Ryland Wiggins MD Left heart cath / coronary qeafmsgfkgu89/06/2025 12:03 PM EST - 04/08/2025 4:15 PM ESTHospital Encounter [facility] Cardiac Cath/IR Lab [address] [place] [address] Ryland Wiggins MD Abnormal cardiovascular stress test Discharge Disposition: Home or Self Care04/08/20252978Gkayet98/29/2025 11:00 AM EDT Office Visit [facility] Machine Veneer Repairer [address] [place] [phone] Jose Chávez DO Preoperative cardiovascular examination (Primary Dx); Hypertension, unspecified type; Type 2 diabetes mellitus without complication, without long-term current use of insulin (HCC); Mild intermittent asthma without complication; Panic attack as reaction to stress; Wohjilz5903/31/2025bstract [facility] CARD[facility]OLOG[facility] Part of [address] [address] Lyssa Mcdaniel MA 03/30/2025Transcribe Orders [facility] Pre Access [address] [place] [address] Jeanine Rao, FLIGHT LINE SERVICE ATTENDANT - MACHINE BUFFER Abnormal swallowing (Primary Dx)03/29/2025Orders Only [facility] Radiology [address] [place] [address] Jeanine Rao, FLIGHT LINE SERVICE ATTENDANT - MACHINE BUFFER 03/29/2025bstract [facility] Machine Veneer Repairer [address] [place] [phone] Jose Chávez DO 03/15/2025 1:07 PM EDT - 03/17/2025 11:59 PM EDTHospital Encounter [facility] Nuclear Medicine [address] [place] [address] Discharge Disposition: Home or Self Care03/15/2025 12:30 PM EDT - 03/17/2025 11:59 PM EDTHospital Encounter [facility] [address] [place] [address] Discharge Disposition: Home or Self Care03/12/2025 10:20 AM EDT - 03/14/2025 11:59 PM EDTHospital Encounter [facility] Medicine [address] [place] [address] Discharge Disposition: Home or Self Care03/12/2025 9:51 AM EDT - 03/14/2025 11:59 PM EDTHospital Encounter [facility] Non-Invasive Cardiology [address] [place] [address] Abnormal EKG Discharge Disposition: Home or Self Care03/02/2025Orders Only [facility] Machine Veneer Repairer [address] [place] [phone] Jose Chávez DO Primary hypertension (Primary Dx)03/02/2025bstract [facility] Machine Veneer Repairer [address] [place] [phone] Jose Chávez DO 02/22/2025Transcribe Orders [facility] Pre Access [address] [place] [address] Jeanine Rao, FLIGHT LINE SERVICE ATTENDANT - MACHINE BUFFER Abnormal electrocardiography (Primary Dx)from Last 3 Months Immunizations ImmunizationAdministration DatesNext DueInfluenza Virus Jubvknr3803/10/2021, 03/04/2020,04/03/2017Influenza, FLUARIX, FLULAVAL, FLUZONE (age 6 mo+) [...] (1 standard drink = 0.6 oz pure alcohol)[facility] UtilitiesAnswerDate RecordedIn the past 12 months has the [employer], gas, oil, or water [employer] threatened to shut off services in your home?No 12/15/2024PHQ-2AnswerDate RecordedPHQ-9 Total Hhsre6216/17/2025Hunger Vital Sign AnswerDate RecordedWithin the past 12 [...] homeless or living in a chcf (including now)?No12/15/2024Food Insecurity AnswerDate RecordedWithin the past 12 months, you worried that your food would run out before you got the money to buymore.Within the past 12 months, the food you bought just didn't last and you didn't have money to get more.CommentsNoSex and Gender InformationValueDate Recorded Sex Assigned at BirthNot on fileLegal CwnCnwdkz87/10/2013 2:03 PM ESTGender IdentityNot on fileSexual OrientationNot on file Last Filed Vital Signs Vital SignReadingTime TakenCommentsBlood Ozdzyaaz425/6104/08/2025 4:00 PM EST Tsuwf006204/08/2025 4:00 PM ERXPzfbkceojiw97.9 ??C (96.7 ??F)04/08/2025 2:00 PM ESTRespiratory Etjo294504/08/2025 4:00 PM ESTOxygen Fcavhorqwb76%04/08/2025 4:00 PM ESTInhaled Oxygen Concentration--Hayvtf58.8 kg (220 lb)04/08/2025 12:20 PM MKETnryvo827 cm (5' 3 )04/08/2025 12:20 PM ESTBody Mass Index38.9704/08/2025 12:20 PM EST Plan of Treatment DateTypeDepartmentCare Team (Latest Contact Info)Iuwnzdzlnzh74/23/2025 11:45 AM ESTAppointment [facility] Speech Therapy [address] [place], [place] [phone] Rabia Avalos SLP 05/31/2025 10:30 AM ESTAppointment [facility] Speech Therapy [address] [place], [place] [phone] Rabia Avalos SLP 06/07/2025 10:30 AM ESTAppointment [facility] Speech Therapy [address] [place], [place] [phone] Rabia Avalos SLP 06/14/2025 11:15 AM ESTAppointment [facility] Speech Therapy [address] [place] [address] Rabia Avalos SLP 06/28/2025 2:15 PM ESTOffice Visit [facility] Part of [address] [place] [phone] Victoria Chiang DO [address] [place] [address] yearly/repeat pap06/29/2025 11:00 AM ESTAppointment [facility] Speech Therapy [address] [place] [address] Rabia Avalos SLP 08/02/2025 9:00 AM ESTOffice Visit [facility] Part of [facility] [address] [place] [address] Linda Ayala MD [address] [place] [address] Establish careHealth MaintenanceDue DateLast DoneCommentsDiabetic foot exam 1977HIV wgaovy0907/25/1982Diabetic retinal exam1985Hepatitis C screen 1985Hepatitis B vaccine (1 of 3 - 19+ 3-dose series)1986FIT/FOBT: Average risk2012Fecal-DNA (Cologuard): Average risk2012 Sigmoidoscopy/CT awhlllsaahwg63/22/2013Pneumococcal 50+ years Vaccine (2 of 2 - PPSV23, PCV20, or PCV21)A1C test (Diabetic or Prediabetic) , 06/15/2011Diabetic Alb to Cr ratio (uACR) test12/20/2023 12/19/2022FR test (Diabetes, CKD 3-4, OR last GFR 15-59), 07/23/2017, 07/21/2017, Additional history djjouiEzkyei65/19/202407/, 07/20/2017COVID-19 Vaccine ( season)2025Depression Monitoring 6006/19/2024, 01/17/2025Breast cancer , 06/12/2024, 05/24/2023, Additional history existsDTaP/Tdap/Td vaccine (3 - Td or Tdap), 12/29/2009Pap smear, 05/31/2023, 2633Fddhuybwdaa38Colorectal Cancer Pwswvn5101/24/2028 Cervical cancer tmjdij6406/19/2029HPV (without or with Pap) Pneumococcal 0-49 years OnlrwabVfnohvvyvrfm96/04/2018Shingles vaccineCompleted 06/09/2021, 03/10/2021Flu hnewoweXqwznwymn24/21/2025, 03/06/2024, 05/10/2023, Additional history existsHepatitis A vaccineAged [...] complete this topic Procedures Procedure NamePriorityDate/TimeAssociated DiagnosisCommentsFL MODIFIED BARIUM SWALLOW W EIPLXHzzlwud45/24/2025 1:28 PM EST Dysphagia, pharyngoesophageal phase FL MMKUhfjjin82/10/2025 10:54 AM EST Abnormal swallowing LEFT HEART CATH / CORONARY MNXJPAUYRUFWeyhdpw01/06/2025 1:53 PM EST Abnormal cardiovascular stress test NM LEXISCAN STRESS TEST W/ MYOCARDIAL PRDXGKBCJYvbvnvd27/13/2025 2:15 PM EDT Abnormal EKG HUMAN PAPILLOMAVIRUS (HPV) DNA PROBE THIN PREP HIGH WUQVXlkikvs48/17/2025 12:00 AM EST E/M ENGINEER LCVCJRXCJubwpep89/17/2025 12:00 AM EST FRANSICO SCREENING YDTADHGBQYeodgds93/10/2025 9:42 AM EST COMPREHENSIVE METABOLIC YMCKBTregopi67/19/2023 12:37 PM EDT LIPID DJVOXRxmspxf50/19/2023 12:37 PM EDT MICROALBUMIN, GKIsjwcjn63/19/2023 12:37 PM EDT HEMOGLOBIN R6NAyojgzw83/19/2023 12:37 PM EDT from Last 3 Months or Most Recently Relevant to Health Maintenance Results * FL MODIFIED BARIUM SWALLOW W VIDEO (04/26/2025 1:28 PM EST)Anatomical Region LateralityModalityHead, NeckComputed RadiographySpecimen (Source)Anatomical Location / LateralityCollection Method / VolumeCollection TimeReceived Time 04/26/2025 1:50 PM EST Impressions 04/26/2025 1:52 PM EST 1. There is transient laryngeal penetration with thin liquids. No aspiration. Please see separate speech pathology report for full discussion of findings and recommendations. Narrative 04/26/2025 1:52 PM EST EXAMINATION: MODIFIED BARIUM SWALLOW WAS PERFORMED IN CONJUNCTION WITH SPEECH PATHOLOGY SERVICES TECHNIQUE: Under fluoroscopic evaluation cineradiography/videoradiography recordings were performed in conjunction with the speech-language pathologist (BRANCH MAKER). Various liquid, solid and/or semi-solid barium preparations [...] that subsequently cleared after multiple swallow attempts. Procedure Note Brayan Pastrana MD - 04/26/2025 EXAMINATION: MODIFIED BARIUM SWALLOW WAS PERFORMED IN CONJUNCTION WITH SPEECHPATHOLOGY SERVICES TECHNIQUE: Under fluoroscopic evaluation cineradiography/videoradiographyrecordings were performed in conjunction with the speech-language pathologist(BRANCH MAKER). Various liquid, solid and/or semi-solid barium preparations [...] report for full discussion offindings and recommendations. Authorizing ProviderResult TypeResult StatusGerri Liban Rao FLIGHT LINE SERVICE ATTENDANT - NPIMG FLUOROSCOPY ORDERABLESFinal Result * FL UGI (04/12/2025 10:54 AM EST)Anatomical [...] duodenal bulb and sweep. Procedure Note Donta Melendez DO - 04/12/2025 EXAMINATION: SINGLE CONTRAST UPPER [...] Normal exam Authorizing ProviderResult TypeResult StatusGerri L Rine FLIGHT LINE SERVICE ATTENDANT - NPIMG FLUOROSCOPY ORDERABLESFinal Result * LEFT HEART CATH / CORONARY ANGIOGRAPHY (04/08/2025 1:53 PM EST)ComponentValue Ref RangeTest MethodAnalysis TimePerformed AtPathologist SignatureBody Surface Area2.83v4NLXZ CV CPACS HEMOAnatomical RegionLateralityModalityX-Ray AngiographySpecimen (Source)Anatomical Location [...] ComponentValueRef RangeTest MethodAnalysis TimePerformed AtPathologist SignatureStress Target IJ335csjIQSH CV RPACS STRESSBaseline Systolic QT406sxVx BSMH CV RPACS STRESSBaseline Diastolic TL31ssRbSMSL CV RPACS STRESSStress Systolic AF551efYrHWAX CV RPACS STRESSStress Diastolic KY51pmWeRXDC CV RPACS STRESSBaseline YA98NWRWEPW CV RPACS STRESSStress Peak GV652BGKXTCM CV RPACS STRESSStress Estimated Workload6.1METSBSMH CV RPACS STRESSStress Rate Pressure Lrrwgts83,762BPM*mmHgBSMH CV RPACS STRESSStress Percent HR Mipndyvm86%BSMH CV RPACS STRESSExercise Duration Usml6kxuGXKW CV RPACS STRESSExercise Duration Gdtlohu06rjuXODC CV RPACS STRESSNuc Stress EF69%BSMH CV RPACS [...] normal. Authorizing ProviderResult TypeResult StatusGerri Liban Rao FLIGHT LINE SERVICE ATTENDANT - NPCV STRESS ORDERABLESFinal Result * (ABNORMAL) Human papillomavirus (HPV) DNA probe thin prep high risk (06/19/2024 12:00 AM EST)ComponentValueRef RangeTest MethodAnalysis Time Performed AtPathologist SignatureSpecimen DescriptionCERVICAL MATERIAL 06/19/2024 12:00 AM ESTMERCallVU LABORATORIESHPV Sample.THIN PREP06/19/2024 12:00 AM ESTMERCallVU LABORATORIESHPV, Genotype 16DETECTED(A)Not Vbekzowo30/17/2025 12:00 AM ESTMERCallVU LABORATORIESHPV, Genotype 18Not DetectedNot Detected 06/19/2024 12:00 AM ESTMERCallVU LABORATORIESHPV, High Risk OtherNot DetectedNot Dsatbbrt48/17/2025 12:00 AM ESTMERCallVU LABORATORIESHPV, Mcawtmbiiraini28/17/2025 12:00 AM ESTMERCallVU LABORATORIESComment: This test amplifies and detects DNA [...] LateralityCollection Method / Volume Collection TimeReceived TimeCERVICAL ICYLKOEC15/17/2025 Narrative Authorizing ProviderResult TypeResult StatusWequinn Contreras MDHEMATOLOGY ORDERABLESFinal ResultPerforming OrganizationAddressCity/State/ZIP CodePhone Number [facility] [address] [place] [address], [facility] [phone] [address], [facility] [phone] * E/M ENGINEER Cytology (06/19/2024 12:00 AM EST)ComponentValueRef RangeTest Method Analysis TimePerformed AtPathologist SignatureCytology ReportPath Number: [id number] DIAGNOSIS Imaged ThinPrep Pap - Cervical (1 [...] or for other forensic purposes. Performed at [facility] [address] [place] [address] ([phone] ?? Source of Specimen: A: Imaged ThinPrep Pap - Cervical (1 monolayer slide) HPV Reflex?......................HPV Regardless Clinical History Postmenopausal Z01.419 Routine ob/gyn doctor exam without abnormal findings LMP: ??06/20/15 Processing Lab: [address] [address] Interpretation performed at [address] [address] The Pap smear is a screening test primarily for squamous epithelial lesions, which is subject to both false negative and false positive results. Your patient should be reminded to consult you immediately if she experiences any suspicious signs or symptoms, regardless of her Pap smear result. GYNECOLOGIC CYTOLOGY REPORT Patient Name: NADEEN AGUILA [facility] Rec: [id number] [place] [address] ??[facility] ANATOMIC PATHOLOGY [address] [place] [address]. ??[place], [place] [address] bCENTRA HEALTH LABSSpecimen (Source)Anatomical Location / LateralityCollection Method / VolumeCollection TimeReceived Time CERVICAL SRLUKXOQ56/ 8:21 AM EST Narrative Authorizing ProviderResult TypeResult StatusWequinn Contreras MDPATHOLOGY/CYTOLOGY ORDERABLESFinal ResultPerforming OrganizationAddressCity/State/ZIP CodePhone Number [facility] [address] [place], [place] [address] [phone] [facility] * FRANSICO Screening Bilateral (06/12/2024 9:42 AM EST)Anatomical RegionLaterality ModalityBreastBilateralMammography Narrative Authorizing ProviderResult TypeResult StatusWequinn Contreras MDIMG MAMMOGRAPHY ORDERABLESEdited Result - Final * (ABNORMAL) Microalbumin, Ur (12/19/2022 12:37 PM EDT)ComponentValueRef Range Test MethodAnalysis TimePerformed AtPathologist SignatureAlbumin Ywukw103(H) <21 mg/L12/19/2022 12:37 PM EDTMERCY LABORATORIESCreatinine, Ur428.7(H)28.0 - 217.0 mg/dL12/19/2022 12:37 PM EDTMERCY LABORATORIESMicroalb/Maintenance Construction Helper. Bqtia400(H) <25 mcg/mg creat12/19/2022 12:37 PM EDTMERCY LABORATORIESSpecimen (Source) Anatomical Location / LateralityCollection Method / VolumeCollection Time Received Time12/19/2022 12:37 PM EDT12/19/2022 12:38 PM EDT Narrative Authorizing ProviderResult TypeResult StatusCarmenza Silva FLIGHT LINE SERVICE ATTENDANT - NPURINE ORDERABLESFinal ResultPerforming OrganizationAddressCity/State/ZIP CodePhone Number [facility] [address] [place] [address], [facility] [phone] [place] [address], [facility] [phone] * Hemoglobin A1C (12/19/2022 12:37 PM EDT)ComponentValueRef RangeTest Method Analysis TimePerformed AtPathologist SignatureHemoglobin A1C6.04.0 - 6.0 % 12/19/2022 12:37 PM EDTMERCY LABORATORIESEstimated Avg Vgigtfj651pm/dL 12/19/2022 12:37 PM EDTMERCY LABORATORIESComment: The ADA and AACC recommend providing the estimated average glucose result to permit better patient understanding of their HBA1c result. Specimen (Source)Anatomical Location / LateralityCollection Method / Volume Collection TimeReceived Time12/19/2022 12:37 PM EDT12/19/2022 12:38 PM EDT Narrative Authorizing ProviderResult TypeResult Maxwell Silva FLIGHT LINE SERVICE ATTENDANT - MACHINE BUFFER CHEMISTRY ORDERABLESFinal ResultPerforming OrganizationAddressCity/State/ZIP CodePhone Number [facility] [address] [place] [address], [facility] [phone] [place] [address], [facility] [phone] * (ABNORMAL) Lipid Panel (12/19/2022 12:37 PM EDT)ComponentValueRef RangeTest MethodAnalysis TimePerformed AtPathologist QxnambwyqVqrbmzjhwxr648<200 mg/dL 12/19/2022 12:37 PM EDTMERCY LABORATORIESComment: Cholesterol Guidelines: <200 Desirable 200-240 ??Borderline >240 Undesirable HDL49>40 mg/dL12/19/2022 12:37 PM EDTMERCY LABORATORIESComment: HDL Guidelines: <40 Undesirable 40-59 ?Borderline >59 Desirable LDL Xureixcoygu034 - 130 mg/dL12/19/2022 12:37 PM EDTMERCY LABORATORIESComment: LDL Guidelines: <100 Desirable 100-129 ?? Near to/above Desirable 130-159 ?? Borderline >159 Undesirable Direct (measured) LDL and calculated LDL are not interchangeable tests. Chol/HDL Ratio2.3<507 12:37 PM EDTMERCY LABORATORIESComment: Whrsupiohtlmz328(H)<150 mg/dL12/19/2022 12:37 PM EDTMERCY LABORATORIESComment: Triglyceride Guidelines: <150 Desirable 150-199 ??Borderline 200-499 ??High >499 Very high Based on AHA Guidelines for fasting triglyceride, March 2012. Specimen (Source)Anatomical Location / LateralityCollection Method / Volume Collection TimeReceived Time12/19/2022 12:37 PM EDT12/19/2022 12:38 PM EDT Narrative Authorizing ProviderResult TypeResult StatusCarmenza Silva FLIGHT LINE SERVICE ATTENDANT - MACHINE BUFFER CHEMISTRY ORDERABLESFinal ResultPerforming OrganizationAddressCity/State/ZIP CodePhone Number [facility] [address] [place] [address], [facility] [phone] [place] [address] [place] [address], [facility] [phone] * (ABNORMAL) Comprehensive Metabolic Panel (12/19/2022 12:37 PM EDT)Component ValueRef RangeTest MethodAnalysis TimePerformed AtPathologist SignatureGlucose 137(H)70 - 99 mg/dL12/19/2022 12:37 PM [facility] LABBUN 166 - 20 mg/dL12/19/2022 12:37 PM [facility] LAB Creatinine0.80.5 - 0.9 mg/dL12/19/2022 12:37 PM [facility] LABEst, Glom Filt Rate>60>60 mL/min/1.44n68812/19/2022 12:37 PM EDT [facility] LABComment: ? These results are not intended [...] therapy that affects renal tubular secretion. BUN/Creatinine Duogq709 - 12:37 PM [facility] GCYXobsigq61.5(H)8.6 - 10.4 mg/dL12/19/2022 12:37 PM [facility] EEYEqjkht097466 - 144 mmol/L12/19/2022 12:37 PM [facility] LABPotassium4.33.7 - 5.3 mmol/L12/19/2022 12:37 PM [facility] MUBXykhyjwe79(L)98 - 107 mmol/L12/19/2022 12:37 PM [facility] GMXJI02272 - 31 mmol/L12/19/2022 12:37 PM [facility] LABAnion Udt063 - 17 mmol/L12/19/2022 12:37 PM [facility] LABAlkaline Nlxrpfaacyw9354 - 104 U/L12/19/2022 12:37 PM [facility] SBMESQ80(H)5 - 33 U/L12/19/2022 12:37 PM [facility] ICMRSS14<32 U/L12/19/2022 12:37 PM [facility] LABTotal Bilirubin1.7(H)0.3 - 1.2 mg/dL12/19/2022 12:37 PM [facility] LABTotal Protein8.26.4 - 8.3 g/dL12/19/2022 12:37 PM [facility] LABAlbumin5.13.5 - 5.2 g/dL12/19/2022 12:37 PM [facility] LABAlbumin/Globulin Ratio1.61.0 - 2.507/ 12:37 PM [facility] LABSpecimen (Source)Anatomical Location / LateralityCollection Method / VolumeCollection TimeReceived Time12/19/2022 12:37 PM EDT12/19/2022 12:38 PM EDT Narrative Authorizing ProviderResult TypeResult StatusCarmenza Silva FLIGHT LINE SERVICE ATTENDANT - MACHINE BUFFER CHEMISTRY ORDERABLESFinal ResultPerforming OrganizationAddressCity/State/ZIP CodePhone Number [facility] [address] [place] [id number] [phone] from Last 3 Months or Most Recently Relevant to Health Maintenance Insurance * Guarantor: Nadeen Aguila AAclanunt TypeRelation to PatientDate of BirthPhone Billing AddressPersonal/FggnafKacb12/22/1966 [facility] [place] [phone] * Guarantor: Nadeen Aguila TypeRelation to PatientDate of BirthPhone Billing AddressPersonal/OdnpzkNygl72/22/1966 [address] [place] [phone] Advance Directives * Full Code (Latest Code Status on File) Date ActivatedDate YssbzlnzhfeEzcvbnng25/6/2025 1:56 PM04/08/2025 6:15 PM * Full Code Date ActivatedDate TikhjjobrbhQqulqdib21/6/2025 12:43 PM04/08/2025 1:56 PM * Full Code Date ActivatedDate InactivatedComments07/22/2017 1:14 PM2 9:48 PM * Full Code Date ActivatedDate InactivatedComments07/20/2017 6:15 AM07/22/2017 1:14 PM Care Teams Team MemberRelationshipSpecialtyStart DateEnd Date Jeanine Rao, FLIGHT LINE SERVICE ATTENDANT - MACHINE BUFFER [address] [place] [address] PCP - Stngpgl90/14/16
--- OUTSIDE RECORDS SUMMARY | 2025-05-24 11:02 | XMS_ITS | Clinical Summary ---
Author Organization [facility] Address [address] [place] [address] Care Team Providers Care Bioinformatics Developer Name Role Phone Indy Jose Whitehead DO Primary Care Provider [phone] Jeanine Rao REGULATORY LEAD Unavailable Allergies Active AllergyReactionsCriticalityNoted WrelSeggpbtvAemglqy73/11/2013 Heart Cath dye Iodinated Contrast MoseuLlbwz36/12/7679LvenudbykkRvgzy38/12/2023Shellfish Protein-Containing Drug Npphdmxo69/18/2013 Medications MedicationSigDispense QuantityRefillsLast FilledStart DateEnd DateStatus B [...] testing 100 each 306/18/2024Active FreeStyle lancets 4Active escitalopram (Lexapro) 10 MG tablet Take [...] long-term current use of insulin ([facility])TAKE 2 TABLETS EVERY MORNING AND 2 TABLETS BEFORE BEDTIME 360 tablet 5Active amLODIPine (Norvasc) 5 MG tablet Indications:Essential hypertensionTAKE 1 TABLET EVERY MORNING 90 tablet 5Active chlorthalidone (Hygroton) 50 MG tablet Indications:Essential hypertensionTAKE 1 TABLET EVERY MORNINGWITH FOOD 90 tablet 5Active Continuous Glucose Sensor [place]Dexcom G7 Sensor[place] [facility] [place]ications:Type 2 diabetes mellitus with hyperglycemia, with long-term current use of insulin ([facility])USE DIRECTED AND CHANGE EVERY 14 DAYS [...] long-term current use of insulin ([facility])Take 1 tablet (15 mg) by mouth Daily 90 tablet [id number] Additional Information Patient taking differently:15 mg Oral Daily,(No times of day reported), Reported on 05/17/2025 Jardiance 25 MG Indications:Type 2 diabetes mellitus without complication, without long-term current use of insulin ([facility])TAKE 1 TABLET BY MOUTH EVERY DAY 30 tablet 1115Active Additional Information Patient taking differently:25 mg Oral Daily,(No times of day reported), Reported on 05/17/2025 Semaglutide, 2 MG/DOSE, (Ozempic, 2 MG/DOSE,) 8 MG/3ML solution pen-injector Indications:Type 2 diabetes mellitus with hyperglycemia, with long-term current use of insulin ([facility])Inject 2 mg under the skin 1 (one) time per week 3 mL 5Active losartan (Cozaar) 50 MG tablet Indications:Type 2 diabetes mellitus without complication, without long-term current use of insulin ([facility])TAKE 0.5 TABLETS BY MOUTH DAILY. 45 tablet 5Active Additional Information Patient taking differently:25 mg Oral Daily,(No times of day reported), Reported on 05/17/2025 Continuous Glucose Sensor (Dexcom G7 Sensor[place] [facility] [place]ications:Type 2 diabetes mellitus with hyperglycemia, without long-term current use of insulin ([facility])1 Units every 14 (fourteen) days 2 each 1115Active rosuvastatin (Crestor) 10 MG tablet Indications:Pure hypercholesterolemiaTake 1 tablet (10 mg) by mouth Daily 90 tablet 5Active montelukast (Singulair) 10 MG tablet Indications:Environmental and seasonal allergiesTAKE 1 TABLET IN THE MORNING 90 tablet 5Active montelukast (Singulair) 10 MG tablet Indications:Environmental and seasonal allergiesTAKE 1 TABLET IN THE MORNING 90 tablet Discontinued atorvastatin (Lipitor) 10 MG tablet Indications:Pure hypercholesterolemiaTAKE 1 TABLET IN THE MORNING 90 tablet 110Discontinued(Therapy completed) Active Problems ProblemNoted DateDiagnosed DateHallux rigidus, left foot01/21/2024Hallux valgus (acquired), left foot01/21/2024Type 2 diabetes mellitus with hyperglycemia 01/21/2024cquired melfbdgaykqiui11/09/2023cute post-traumatic stress disorder 11/09/2022AD (generalized anxiety disorder)3Degenerative cervical disc 11/09/2022Environmental and seasonal eijvoaynl80/09/2023rimary hypertension 11/09/2022rimary mjmgckiq18/09/2023Mild intermittent asthma without pyzjtlkgzcmm50/09/2023Obesity, cpmrlryuotr53/09/2023anic disorder with jwlfkeobmby04/09/2023ure gklzkifhaoewatbxwcsz15/09/2023Type 2 diabetes mellitus without complication, without long-term current use of tatmjfh9711/09/2022Vitamin D /09/2023Severe single current episode of major depressive disorder, without psychotic wzndeutn36/17/2018 Resolved Problems ProblemNoted DateDiagnosed DateResolved DateDiabetes hvzcxepb89/16/2023 05/10/20235467Vraajgs61Panic attack as reaction to stress Encounters DateTypeDepartmentCare IeodQtmqxneqmqr36/19/2025Orders Only [facility] [address] [place] [address] Jeanine Rao NP 05/19/2025 11:30 AM ESTEducation [facility] [address] [place] [address] Cristina Escalante NP 05/19/2025amboo flowsheet [facility] [address] [place] [address] Cristina Escalante NP 05/17/2025 2:20 PM ESTOffice Visit [facility] [address] [place] [address] Jamie Schwartz MD Type 2 diabetes mellitus with hyperglycemia, without long-term current use of insulin (HCC) (Primary Dx); Primary hypertension; Vitamin D deficiency; Acquired hypothyroidism; Encounter for dietary consultation; Class 2 severe obesity due to excess calories with serious comorbidity and body mass index (BMI) of38.0 to 38.9 in adult05/17/2025bstract [facility] [address] [place] [address] Jeanine Rao NP 05/14/2025Refill [facility] [address] [place] [address] Jeanine Rao, CURLY Environmental and seasonal /09/2025Telephone [facility] [place] [address] [place] [address] Jeanine Rao, REGULATORY LEAD 05/10/2025bstract [facility] [address] [place] [address] Jeanine Rao, REGULATORY LEAD 05/05/2025bstract [facility] [address] [place] [address] Jeanine Rao, REGULATORY LEAD 05/05/2025bstract [facility] [address] [place] [address] Jeanine Rao, REGULATORY LEAD 05/05/2025bstract [facility] [address] [place] [address] Jeanine Rao, REGULATORY LEAD 05/04/2025bstract [place] [address] [place] [address] Jeanine Rao, REGULATORY LEAD 05/04/2025bstract [place] [address] [place] [address] Jeanine Rao, REGULATORY LEAD 05/03/2025 9:00 AM ESTOffice Visit [place] [address] [place] [address] Jeanine Rao, REGULATORY LEAD Type 2 diabetes mellitus with hyperglycemia, without long-term current use of insulin (HCC) (Primary Dx); Pure hypercholesterolemia; Pain in right foot; Pharyngoesophageal dysphagia; Encounter for screening mammogram for malignant neoplasm of breast; Nocturnal gjxfyhj8905/03/2025bstract [place] [address] [place] [address] Jeanine Rao, REGULATORY LEAD 05/03/2025bstract [place] [address] [place] [address] Jeanine Rao, REGULATORY LEAD 05/03/20252403Pkqkrg66/25/2025Results Follow-Up [facility] [address] [place] [address] Jeanine Rao, CURLY ACCOUNTANT CONTROLLER videofluoroscopic swallow study04/27/2025bstract [facility] [place] [address] [place] [address] Jeanine Rao, CURLY 04/26/2025Results Follow-Up [facility] [place] [address] [place] [address] Jeanine Rao, CURLY FL MODIFIED BARIUM SWALLOW W VIDEO04/26/2025linisync Result Encounter [facility] External Department Unsolicited Jeanine Rao NP 04/19/2025bstract [facility] [place] [address] [place] [address] Jeanine Rao, CURLY 04/15/2025Telephone [facility] [place] [address] [place] [address] Jeanine Rao, CURLY my chart ?04/15/2025Telephone [facility] [address] [place] [address] Chelita Molina LPN Blood Sugar Krzmanm7404/14/2025Telephone [facility] [place] [address] [place] [address] Jeanine Rao, REGULATORY LEAD Care Nhyynkhdbfun08/12/2025bstract [facility] [place] [address] [place] [address] Jeanine Rao NP 04/14/2025Orders Only [facility] [place] [address] [place] [address] Amy Ng LPN 04/12/2025Telephone [facility] [place] [address] [place] [address] Jeanine Rao, REGULATORY LEAD Fax order for swallow study04/12/2025Results Follow-Up [facility] [place] [address] [place] [address] Jeanine Rao NP FL UGI106/12/2024linisync Result Encounter [facility] External Department Unsolicited Jeanine Rao NP 04/07/2025 11:00 AM ESTClinical Support [facility] [address] [place] [address] Douglas Spivey RN Type 2 diabetes mellitus with hyperglycemia, without long-term current use of insulin (HCC) (Primary Dx); Acquired zzuqckzdlkqsyl29/05/2025amboo flowsheet [facility] [address] [facility] [address] [place] [address] Douglas Spivey RN 04/06/2025Refill [facility] [place] [address] [facility] [address] [place] [address] Jeanine Rao NP Type 2 diabetes mellitus without complication, without long-term current use of insulin (HCC)04/05/2025 9:50 AM ESTOffice Visit [facility] [facility] [address] [place] [address] Amalia Cheng PA Seborrheic keratosis (Primary Dx); Melanocytic nevus of trunk; Mario angioma; Inflamed seborrheic iamrfujah81/03/1363Rlmxlm72/27/2025Orders Only [facility] [place] [address] [facility] [address] [place] [address] Amy Ng LPN Abnormal kcuxwjmwpb55/22/2025Results Follow-Up [facility] [place] [address] [facility] [address] [place] [address] Jeanine Rao, CURLY TSH, T4, free, Vitamin D 25 cqefkuo8203/23/2025 9:00 AM EDTOffice Visit [facility] [place] [address] [facility] [address] [place] [address] Jeanine Rao NP Wellness examination [...] Environmental and seasonal allergies; Immunization due; Abnormal lzzzrojzuq26/21/2025bstract [facility] [address] [place] [address] Jeanine Rao NP 03/23/2025bstract [facility] [address] [place] [address] Jeanine Rao NP 03/23/2025amboo flowsheet [place] [address] [place] [address] Jeanine Rao NP 03/23/20250680Uhrcbp36/15/2025 1:00 PM EDTClinical Support [facility] [address] [place] [address] Douglas Spivey RN Type 2 diabetes mellitus with hyperglycemia, with long-term current use of insulin (HCC) (Primary Dx); BMI 39.0-39.9,adult03/17/2025amboo flowsheet [facility] [address] [place] [address] Douglas Spivey RN 03/16/2025Refill [place] [address] [place] [address] Jeanine Rao NP Type 2 diabetes mellitus with hyperglycemia, with long-term current use of insulin (HCC)03/16/2025Refill [place] [address] [place] [address] Jeanine Rao NP Type 2 diabetes mellitus without complication, without long-term current use of insulin ([facility])03/16/2025Telephone [facility] [address] [place] [address] Jeanine Rao, CURLY Results; Care Vfthsiyotyxc82/09/2025bstract [place] [address] [place] [address] Jeanine Rao, CURLY 03/08/2025Refill [address] [place] [address] Jeanine Rao, REGULATORY LEAD Type 2 diabetes mellitus without complication, without long-term current use of insulin ([facility])03/02/2025 11:30 AM EDTOffice Visit [facility] [address] [place] [address] Jamie Schwartz MD Type 2 diabetes mellitus with hyperglycemia, without long-term current use of insulin ([facility]) (Primary Dx); Primary hypertension ; Vitamin D deficiency; Acquired hypothyroidism ; Encounter for dietary consultation; Class 2 severe obesity due to excess calories with serious comorbidity and body mass index (BMI) of39.0 to 39.9 in adult ([facility])from Last 3 Months Immunizations ImmunizationAdministration DatesNext DueHep B, adult05/16/2006,07/10/2003, 12/12/1995,09/19/1995Influenza, Wxoqijyiqpc98/08/2021,03/04/2020,04/03/2017 Influenza, injectable, quadrivalent, preservative free03/06/2024,05/10/2023, 04/13/2022,03/10/2021,03/04/2020,04/03/2017Influenza, seasonal, injectable, preservative free03/23/2025Pneumococcal Conjugate PCV 13107/07/20172913Drgl00/13/2017 Zoster, Kzekecvzhpw05/07/2022,03/10/2021 Family History Medical HistoryRelationNameCommentsBipolar disorderBrotherMental illnessBrother Esophageal cancerFatherHeart diseaseFatherMental illnessFathersevere depression FatherAlzheimer's diseaseMaternal GrandmotherDiabetesMotherHeart diseaseMother HypertensionMotherMental illnessMotherdepressionStrokeMotherLung cancerPaternal GrandfatherSuicideSon 2MlwhqjxcUnrzFzyoguIgyzfujfHzwweor2 brotherDaughterAlive2 daughtersFatherDeceasedMaternal GrandmotherDeceasedMotherDeceasedPaternal GrandfatherDeceasedPaternal GrandmotherDeceasedSister2 sistersSon 0Daaad9 sons Son 2Deceased (Age 19) Social History [...] week01/22/2024How often do you attend jewish or oriental orthodox services?More than 4 times [...] heating?Somewhat hard 01/22/2024HQ-2AnswerDate RecordedPatient Health Questionnaire-2 Score2 03/23/2025[facility] [place] [facility] Occup[facility] Health - Occupational Stress QuestionnaireAnswerDate [...] were you homeless or living in a long-term (including now)? No01/22/2024CommentsNoSex and Gender InformationValueDate RecordedSex Assigned at CbtcdCugncz89/16/2023 9:54 AM EDTLegal WeiXevtib39/15/2023 6:42 PM EDTGender YiunhyplKfskqr92/15/2023 6:42 PM EDTSexual OrientationNot on file Last Filed Vital Signs Vital SignReadingTime TakenCommentsBlood Uivzqrry668/7212 9:11 AM EST Sfzhc429205/17/2025 2:23 PM VZABcvdleiikoo08.7 ??C (98.1 ??F)05/03/2025 9:11 AM ESTRespiratory Nydk438607/18/2024 2:23 PM ESTOxygen Ehrhlvfefq96%05/17/2025 2:23 PM ESTInhaled Oxygen Concentration--Eodneg66.8 kg (220 lb)05/17/2025 2:23 PM EST Oylauq022 cm (5' 3 )05/17/2025 2:23 PM ESTBody Mass Index38.9705/17/2025 2:23 PM EST Plan of Treatment DateTypeDepartmentCare Team (Latest Contact Info)Krqpwcmrjad42/21/2026 1:00 PM ESTAncillary Procedure [facility] [address] [place] [address] 06/23/2025 2:30 PM ESTEducation [facility] [address] [place] [address] Cristina Escalante, REGULATORY LEAD [address] [facility] [address] [place], [place] [address] 06/30/2025 10:00 AM ESTOffice Visit [facility] [address] [place] [address] Jeanine Rao REGULATORY LEAD [address] [place] [address] 09/13/2025 2:40 PM EDTOffice Visit [facility] [address] [place] [address] Jamie Schwartz MD [address] [place] [address] 04/05/2026 10:00 AM ESTOffice Visit [facility] [address] [place] [address] Amalia Cheng, NAHED [address] [place] [address] Health MaintenanceDue DateLast DoneCommentsCT Ljvjhrfhznue18/22/1968FIT-DNA 1967FIT1967FOBT1967 0133Dmxkdykgvwqjj16/22/2895Huapwdwzx40/10/2026 06/12/2024, 05/24/2023, 05/11/2022, Additional history existsDiabetes: Hemoglobin A1C, 02/16/2025, 12/11/2024, Additional history existsDiabetes: Urine Protein Kqmavthou65, 11/06/2023, 3Diabetes: Retinopathy Hetpvketc22, 05/08/2024, 06/21/2023, Additional history coqomqRyrvcywiunx96Colorectal Cancer Gpctvyhpc07/07/2028Pneumococcal Vaccine: Pediatrics (0 to 5 Years) and At-Risk Patients (6 to 64 Years)Mwwutsppdzhk45/04/2018COVID-19 Vaccine Zdnrhjvpvmgu60/07/2021, 1Cervical Cancer ScreeningDiscontinued HPV/ClcivxNgmxprveynpa27/17/2025, 06/19/2024, 1Pap SmearDiscontinued 06/19/2024, 06/19/2024Influenza IknmdjvQsqsqlzde71/21/2025, 03/06/2024, 05/10/2023, Additional history exists Procedures Procedure NamePriorityDate/TimeAssociated DiagnosisCommentsDIABETIC RETINOPATHY SCREENING - OU - BOTH DBTXXshghym97/18/2025 10:12 AM ESTPOCT GLUCOSERoutine 05/17/2025 2:32 PM EST Type 2 diabetes mellitus with hyperglycemia, without long-term current use of insulin (HCC) ACCOUNTANT CONTROLLER VIDEOFLUOROSCOPIC SWALLOW EOLALJxagxiu58/25/2025 5:42 AM EST Pharyngoesophageal dysphagia FL MODIFIED BARIUM SWALLOW W VIDEO04/26/2025 1:52 PM EST FL UGI106/12/2024 11:20 AM EST CRYOTHERAPY SKIN TQRURTVkascsv59/03/2025 10:05 AM EST Inflamed seborrheic keratosis VITAMIN D 25 HYDROXY EPANRRrbwgsa92/21/2025 9:56 AM EDT Vitamin D deficiency T4, DHUUMqdisud40/21/2025 9:56 AM EDT Acquired hypothyroidism AXPSsigeko63/21/2025 9:56 AM EDT Acquired hypothyroidism TEST BVFICNIPCPDBMFaktzjm62/21/2025 9:55 AM EDT MICROALBUMIN / CREATININE URINE VKYJQJwutxtz53/21/2025 9:55 AM EDT HEMOGLOBIN Z5NBlbsr84/21/2025 9:55 AM EDT Type 2 diabetes mellitus without complication, without long-term current use of insulin (HCC) LIPID BTHZHRlaty23/21/2025 9:55 AM EDT Wellness examination QIZFaquj12/21/2025 9:55 AM EDT Wellness examination COMPREHENSIVE METABOLIC PANEL (REFL)Today03/23/2025 9:55 AM EDT Wellness examination URINALYSIS, COMPLETE W/REFLEX TO XCWDIZFPnhwe99/21/2025 9:55 AM EDT Dysuria Wellness examination CULTURE, URINE, IRITKOCRhyotyt92/21/2025 9:55 AM EDT REFLEXIVE URINE FVUXHRFMshcxhi62/21/2025 9:55 AM EDT AMB REFERRAL TO ODYGHQOROLDEVSqatnnl04/21/2025 6:41 AM EDT Type 2 diabetes mellitus with hyperglycemia, without long-term current use of insulin (HCC) AMB REFERRAL TO DIABETIC IMAOYPUIGMiklnaz44/21/2025 6:39 AM EDTPOCT GLUCOSE Rfldozl8603/02/2025 11:33 AM EDT Type 2 diabetes mellitus with hyperglycemia, without long-term current use of insulin (HCC) BI MAMMOGRAM SCREENING TOMOSYNTHESIS LONBDIANSQkriblx29/10/2025 9:30 AM EST Visit for screening mammogram HISTORIC PAP WITH HPV USDJJMCimfdxk51/10/2021 12:00 PM EST VRRSPYVJITULdxtmmx40/07/2018 12:00 PM EDT from Last 3 Months or Most Recently Relevant to Health Maintenance Results * POCT glucose manually resulted (05/17/2025 2:32 PM EST) Only the most recent of2 resultswithin the time period is included. ComponentValueRef RangeTest MethodAnalysis TimePerformed AtPathologist Signature Glucose Blood, SSB187rp/dLSpecimen (Source)Anatomical Location / Laterality Collection Method / VolumeCollection TimeReceived TimeBloodCapillary blood specimen / Vfjfcdk9605/17/2025 2:32 PM EST Narrative Authorizing ProviderResult TypeResult StatusJamie Schwartz MDPOINT OF CARE TEST ENTER/EDIT ORDERABLESFinal Result * ACCOUNTANT CONTROLLER videofluoroscopic swallow study (04/27/2025 5:42 AM EST) Narrative Authorizing ProviderResult TypeResult StatusGerri L Joselinee NPSLP ORDERABLESFinal Result * FL MODIFIED BARIUM SWALLOW W VIDEO (04/26/2025 1:52 PM EST)Anatomical Region LateralityModalityOtherSpecimen (Source)Anatomical Location / Laterality Collection Method / VolumeCollection TimeReceived Time04/26/2025 1:52 PM EST Narrative 04/26/2025 1:56 PM EST EXAMINATION: MODIFIED BARIUM SWALLOW WAS PERFORMED IN CONJUNCTION WITH SPEECH PATHOLOGY SERVICES TECHNIQUE: Under fluoroscopic evaluation cineradiography/videoradiography recordings were performed in conjunction with the speech-language pathologist (ACCOUNTANT CONTROLLER). Various liquid, solid and/or semi-solid barium preparations [...] were performed in conjunction with the speech-language pathologist(ACCOUNTANT CONTROLLER). Various liquid, solid and/or semi-solid barium preparations [...] by: Donta Melendez DO Signed by: Donta Melenedz DO 04/12/25 Final result Procedure Note Radiology, [...] DO 04/12/25 Final result Authorizing ProviderResult TypeResult StatusJeanine Rao NPCLINISYNC IMAGING Final Result * Cryotherapy, skin lesion (04/05/2025 10:05 AM EST) Narrative Authorizing ProviderResult TypeResult StatusAmalia Cheng PADERM PROCEDURE ORDERABLESFinal Result * Vitamin [...] D, (D2,D3), LC/MS/MS is recommended: order code 92904 (patients >2yrs). See Note 1 Note 1 For additional information, please refer to http://education.[employer]/faq/FIN811 (This link is being provided for informational/ educational purposes only.) Specimen (Source)Anatomical Location / LateralityCollection Method / Volume Collection TimeReceived TimeBloodVenous blood specimen / Vhofnze9803/23/2025 9:56 AM EDT1 9:56 AM EDT Narrative [facility] - 03/24/2025 5:04 AM EDT FASTING:YES MULTIPLE TESTING PRIORITIES; ROUTINE TESTING TO FOLLOW. FASTING: YES Resulting Agency Comment Performing Organization Information ?Site ID: QPT ?Name: [facility] ?Address: [address] [place] [address], [address] [place] [id number] ?Director: Shaheed Becerra MD Authorizing ProviderResult TypeResult StatusGerri L [facility] NPLAB BLOOD ORDERABLES Final ResultPerforming OrganizationAddressCity/State/ZIP CodePhone Number [facility] * TSH (03/23/2025 9:56 AM EDT)ComponentValueRef RangeTest MethodAnalysis Time Performed AtPathologist SignatureTSH0.950.40 - 4.50 mIU/LQUESTSpecimen (Source)Anatomical Location / LateralityCollection Method / VolumeCollection TimeReceived TimeBloodVenous blood specimen / Cdvwcfl3303/23/2025 9:56 AM EDT 03/23/2025 9:56 AM EDT Narrative [facility] - 03/24/2025 5:04 AM EDT FASTING:YES MULTIPLE TESTING PRIORITIES; ROUTINE TESTING TO FOLLOW. FASTING: YES Resulting Agency Comment Performing Organization Information ?Site ID: QPT ?Name: [facility] ?Address: [address] [place] [address], [address] [place] [address] ?Director: Shaheed Becerra MD Authorizing ProviderResult TypeResult StatusGerri L Joselinee NPLAB BLOOD ORDERABLES Final ResultPerforming OrganizationAddressty/[facility]/ZIP CodePhone Number [facility] * T4, free (03/23/2025 9:56 AM EDT)ComponentValueRef RangeTest MethodAnalysis TimePerformed AtPathologist SignatureT4, FREE1.40.8 - 1.8 ng/dLQUESTSpecimen (Source)Anatomical Location / LateralityCollection Method / VolumeCollection TimeReceived TimeBloodVenous blood specimen / Bysauap6203/23/2025 9:56 AM EDT 03/23/2025 9:56 AM EDT Narrative [facility] - 03/24/2025 5:04 AM EDT FASTING:YES MULTIPLE TESTING PRIORITIES; ROUTINE TESTING TO FOLLOW. FASTING: YES Resulting Agency Comment Performing Organization Information ?Site ID: QPT ?Name: [facility] ?Address: [address] [place] [address], [address] [place] [address] ?Director: Shaheed Becerra MD Authorizing ProviderResult TypeResult StatusGerri L Joselinee NPLAB BLOOD ORDERABLES Final ResultPerforming OrganizationAddressGlenbeigh [facility] CodePhone Number [facility] * TEST AUTHORIZATION (03/23/2025 9:55 AM EDT)ComponentValueRef RangeTest Method Analysis TimePerformed AtPathologist SignatureTEST NAME:ALBUMIN URINEQUESTTEST CODE:6,517QUESTCLIENT CONTACT:[phone] ALWAYS MESSAGE SIGNATUREQUESTComment: The laboratory testing on this patient was verbally requested or confirmed by the ordering physician or his or her authorized patient support representative after contact with an employee of [employer]. Federal regulations require that we maintain on file written authorization for all laboratory testing. ??Accordingly we are asking that the ordering physician or his or her authorized patient support representative sign a copy of this report and promptly return it to the client service supervisor. Signature: COMMENTQUESTComment: Please have the ordering physician or his or her authorized patient support representative sign a copy of this report and promptly return it by faxing it to: [phone] or by returning the form to your planning feeder. Specimen (Source)Anatomical Location / LateralityCollection Method / Volume Collection TimeReceived Time03/23/2025 9:55 AM EDT1 9:56 AM EDT Narrative [facility] - 03/25/2025 9:06 AM EDT FASTING:YES FASTING: YES Resulting Agency Comment Performing Organization Information ?Site ID: QPT ?Name: [facility] ?Address: [address] [place] [address], [address] [place] [address] ?Director: Shaheed Becerra MD Authorizing ProviderResult TypeResult StatusJeanine Rao NPBELEM BLOOD ORDERABLES Final ResultPerforming OrganizationAddressCity/State/[facility] CodePhone Number [facility]ST * REFLEXIVE URINE CULTURE (03/23/2025 9:55 AM EDT)ComponentValueRef RangeTest MethodAnalysis TimePerformed AtPathologist SignatureREFLEXIVE URINE CULTURE QUESTComment:CULTURE INDICATED - RESULTS TO FOLLOWSpecimen (Source)Anatomical Location / LateralityCollection Method / VolumeCollection TimeReceived Time 03/23/2025 9:55 AM EDT1 9:56 AM EDT Narrative [facility] - 03/25/2025 9:06 AM EDT FASTING:YES FASTING: YES Resulting Agency Comment Performing Organization Information ?Site ID: QPT ?Name: [facility] ?Address: [address] [place] [address], [address] [place] [phone] ?Director: Shaheed Becerra MD Authorizing ProviderResult TypeResult StatusGerri Liban Rao NPLAB MICROBIOLOGY - GENERAL ORDERABLESFinal ResultPerforming OrganizationAddressCity/State/[facility] Code Phone Number [facility] * (ABNORMAL) COMPREHENSIVE METABOLIC PANEL (REFL) (03/23/2025 9:55 AM EDT) ComponentValueRef RangeTest MethodAnalysis TimePerformed AtPathologist CtqcgainpWvipcfz023(H)65 - 99 mg/dLQUESTComment: ? Fasting reference interval For someone without known diabetes, a glucose value >125 mg/dL indicates that they may have diabetes and this should be confirmed with a follow-up test. RIQ051 - 25 mg/dLQUESTCreatinine0.710.50 - 1.03 mg/kGQHNYYUBBJ89> OR = 60 mL/min/1.51w7EWSONVTN/CREATININE RATIOSEE NOTE: (calc)QUESTComment: ?? Not Reported: BUN and Creatinine are within ?? reference range. ? Jasdcy667731 - 146 mmol/LQUESTPotassium, Bld3.4(L)3.5 - 5.3 mmol/LQUESTChloride 9898 - 110 mmol/LQUESTCarbon Iskvdpa5805 - 32 mmol/LQUESTCalcium9.88.6 - 10.4 mg/dLQUESTPROTEIN, TOTAL6.36.1 - 8.1 g/dLQUESTALBUMIN4.43.6 - 5.1 g/dLQUEST GLOBULIN1.91.9 - 3.7 g/dL (calc)QUESTALBUMIN/GLOBULIN RATIO2.31.0 - 2.5 (calc) QUESTBILIRUBIN, TOTAL1.3(H)0.2 - 1.2 mg/dLQUESTALKALINE RQFGFUJPUFA5341 - 153 U/ETQBSTAAT3185 - 35 U/EPWCHUSKA956 - 29 U/LQUESTSpecimen (Source)Anatomical Location / LateralityCollection Method / VolumeCollection TimeReceived Time 03/23/2025 9:55 AM EDT1 9:56 AM EDT Narrative [facility]ST - 03/25/2025 9:06 AM EDT FASTING:YES FASTING: YES Resulting Agency Comment Performing Organization Information ?Site ID: QPT ?Name: [facility] ?Address: [address] [place] [address], [address] [place] [phone] ?Director: Shaheed Becerra MD Authorizing ProviderResult TypeResult StatusGerri Liban Rao NPLAB BLOOD ORDERABLES Final ResultPerforming OrganizationAddressCity/State/ZIP CodePhone Number QUEST * (ABNORMAL) URINALYSIS, COMPLETE W/REFLEX TO CULTURE (03/23/2025 9:55 AM EDT) ComponentValueRef RangeTest MethodAnalysis TimePerformed AtPathologist SignatureCOLORYELLOWYELLOWQUESTAPPEARANCECLEARCLEARQUESTSPECIFIC GRAVITY1.025 1.001 - 1.675LBIWOBO0.55.0 - 8.3NYUQXBESXONK1+(A)NEGATIVEQUESTBILIRUBIN NEGATIVENEGATIVEQUESTKETONESNEGATIVENEGATIVEQUESTOCCULT BLOODNEGATIVENEGATIVE QUESTPROTEINNEGATIVENEGATIVEQUESTNITRITENEGATIVENEGATIVEQUESTLEUKOCYTE ESTERASETRACE(A)NEGATIVEQUESTWBC0-5< OR = 5 [...] Performing Organization Information ?Site ID: QPT ?Name: [facility] ?Address: [address] [place] [phone] ?Director: Shaheed Becerra MD Authorizing ProviderResult TypeResult StatusGerri Liban Rao NPLAB BODY FLUIDS AND STOOLS ORDERABLESFinal ResultPerforming OrganizationAddressCity/State/ZIP Code Phone Number QUEST * Microalbumin / creatinine urine ratio (03/23/2025 9:55 AM EDT)ComponentValue Ref RangeTest MethodAnalysis TimePerformed AtPathologist SignatureCREATININE, RANDOM TZJHY5560 - 275 mg/dLQUESTALBUMIN, URINE0.2See Note: mg/dLQUESTComment: Reference [...] Performing Organization Information ?Site ID: QPT ?Name: [facility] ?Address: [address] [place] [address], [address] [place] [phone] ?Director: Shaheed Becerra MD Authorizing ProviderResult TypeResult StatusGerri L Jalen NPLAB URINE ORDERABLES Final ResultPerforming OrganizationAddressCity/State/ZIP CodePhone Number QUEST * CBC (03/23/2025 9:55 AM EDT)ComponentValueRef RangeTest MethodAnalysis Time Performed AtPathologist SignatureWHITE BLOOD CELL COUNT5.83.8 - 10.8 Thousand/uLQUESTRED BLOOD CELL COUNT4.843.80 - 5.10 Million/uLQUESTHEMOGLOBIN 14.511.7 - 15.5 g/nMEDJWMJVKXMGOESO47.235.0 - 45.0 %PPZVSUBZ06.380.0 - 100.0 gSBZTJNDOZ08.027.0 - 33.0 nfMAAMHMZNH88.632.0 - 36.0 g/dLQUESTComment: For adults, a slight decrease in the calculated MCHC value (in the range of 30 to 32 g/dL) is most likely not clinically significant; however, it should be interpreted with caution in correlation with other red cell parameters and the patient's clinical condition. RDW13.811.0 - 15.0 %QUESTPLATELET KHJTL346170 - 400 Thousand/uLQUESTMPV9.97.5 - 12.5 fLQUESTSpecimen (Source)Anatomical Location / LateralityCollection Method / VolumeCollection TimeReceived TimeBloodVenous blood specimen / Muvpcht85/ 9:55 AM EDT1 9:56 AM EDT Narrative QUEST - 03/25/2025 9:06 AM EDT FASTING:YES FASTING: YES Resulting Agency Comment Performing Organization Information ?Site ID: QPT ?Name: [facility] ?Address: [address] [place] [address] ?Director: Shaheed Becerra MD Authorizing ProviderResult TypeResult StatusLisandrori Liban Rao NPLAB BLOOD ORDERABLES Final ResultPerforming OrganizationAddHaven Behavioral Hospital of Eastern Pennsylvaniaty/[facility] AugustaPhone Number QUEST * Urine culture (03/23/2025 9:55 AM EDT)ComponentValueRef RangeTest Method Analysis TimePerformed AtPathologist SignatureMICRO [id number] SPECIMEN QUALITYAdequateQUESTSOURCE: (QUEST)URINEQUESTSTATUSFINALQUESTRESULT SEE NOTEQUESTComment: No Growth Specimen (Source)Anatomical Location / LateralityCollection Method / Volume Collection TimeReceived Time03/23/2025 9:55 AM EDT1 9:56 AM EDT Narrative QUEST - 03/25/2025 9:06 AM EDT FASTING:YES FASTING: YES Resulting Agency Comment Performing Organization Information ?Site ID: QPT ?Name: [facility] ?Address: [address] [place] [address] ?Director: Shaheed Becerra MD Authorizing ProviderResult TypeResult StatusJeanine SO MICROBIOLOGY - GENERAL ORDERABLESFinal ResultPerforming OrganizationAddMount [facility] Phone Number [facility] * (ABNORMAL) Hemoglobin A1c (03/23/2025 9:55 AM EDT)ComponentValueRef RangeTest MethodAnalysis TimePerformed AtPathologist SignatureHemoglobin A1C7.7(H)<5.7 % QUESTComment: For someone without known diabetes, a hemoglobin [...] Volume Collection TimeReceived TimeBloodVenous blood specimen / Wvxazqo0003/23/2025 9:55 AM EDT1 9:56 AM EDT Narrative QUEST - 03/25/2025 9:06 AM EDT FASTING:YES FASTING: YES Resulting Agency Comment Performing Organization Information ?Site ID: QPT ?Name: [facility] ?Address: [address] [place] [address], [address] [place] [phone] ?Director: Shaheed Becerra MD Authorizing ProviderResult TypeResult StatusGerri Liban Rao NPLAB BLOOD ORDERABLES Final ResultPerforming OrganizationAddressCity/State/ZIP CodePhone Number QUEST * (ABNORMAL) Lipid panel (03/23/2025 9:55 AM EDT)ComponentValueRef RangeTest MethodAnalysis TimePerformed AtPathologist SignatureCHOLESTEROL, UDIAG999<200 mg/dLQUESTHDL PZFCRNIVWKI90> OR = 50 mg/aBGBLKNAFPTWDPBMBUEG911(H)<150 mg/dL QUESTLDL MKFJXEGLNQX70uo/dL (calc)QUESTComment: Reference range: <100 Desirable range <100 mg/dL for primary prevention; <70 mg/dL for patients with CHD or diabetic patients with > or = 2 CHD risk factors. LDL-C is now calculated using the Junaid-Yamileth calculation, which is a validated novel method providing better accuracy than the Friedewald equation in the estimation of LDL-C. Junaid GIPSON et al. NICCI. 2013;310(19): 5303-5468 (http://education.Inbenta.Cluepedia/faq/TPX621) CHOL/HDLC RATIO2.3<5.0 (calc)QUESTNON HDL JJVLGIOOZRG96<130 mg/dL (calc)QUEST Comment: For patients with diabetes plus 1 major ASCVD risk factor, treating to a non-HDL-C goal of <100 mg/dL (LDL-C of <70 mg/dL) is considered a therapeutic option. Specimen (Source)Anatomical Location / LateralityCollection Method / Volume Collection TimeReceived TimeBloodVenous blood specimen / Gygcvcy0503/23/2025 9:55 AM EDT1 9:56 AM EDT Narrative QUEST - 03/25/2025 9:06 AM EDT FASTING:YES FASTING: YES Resulting Agency Comment Performing Organization Information ?Site ID: QPT ?Name: [facility] ?Address: [address] [place] [phone] ?Director: Shaheed Becerra MD Authorizing ProviderResult TypeResult StatusGerri L Joselinee NPLAB BLOOD ORDERABLES Final ResultPerforming OrganizationAddressCity/State/ZIP CodePhone Number QUEST * Ambulatory referral to Endocrinology (03/23/2025 6:41 AM EDT) Narrative Authorizing ProviderResult TypeResult StatusGerri L Rine NPOUTPATIENT REFERRAL ORDERABLESFinal Result * Ambulatory referral to Diabetic Education (03/23/2025 6:39 AM EDT) Narrative Authorizing ProviderResult TypeResult StatusGerri L Rine NPOUTPATIENT REFERRAL ORDERABLESFinal Result * Bilateral screening mammogram with tomosynthesis [...] EST) Anatomical RegionLateralityModalityHeadOther Narrative Authorizing ProviderResult TypeResult StatusJeanine Rao NPOPHTH PHOTOGRAPHY Final Result * HISTORIC PAP WITH HPV RESULT (05/12/2021 12:00 PM EST)ComponentValueRef Range Test MethodAnalysis TimePerformed AtPathologist SignatureGENERIC LEGACY COMPONENT INTERNALLSILECW NONXML LABSGENERIC LEGACY COMPONENT INTERNALpositive ECW NONXML LABSSpecimen (Source)Anatomical Location / LateralityCollection Method / VolumeCollection TimeReceived Time05/12/2021 12:00 PM EST Narrative Authorizing ProviderResult TypeResult StatusJose Putnam DOECW LABSFinal ResultPerforming OrganizationAddressCity/State/ZIP CodePhone Number ECW NONXML LABS * Colonoscopy (02/07/2018 12:00 PM EDT)Anatomical RegionLateralityModality EndoscopySpecimen (Source)Anatomical Location / LateralityCollection Method / VolumeCollection TimeReceived Time02/07/2018 12:00 PM EDT Narrative 02/07/2018 12:00 PM EDT PERFORMED AT [facility] LOCATION:[id number] [facility] Procedure Note CONVERSION, GENERIC - 10/17/2022 PERFORMED AT [facility] LOCATION:[id number] wnl Authorizing ProviderResult TypeResult StatusJeanine Rao NPENDOSCOPY PROCEDURE ORDERABLESFinal Result from Last 3 Months or Most Recently Relevant to Health Maintenance Insurance [facility] Address: [facility] [id number] [place] [phone] Care Teams Team MemberRelationshipSpecialtyStart DateEnd Date Jose Putnam DO [address] [place] [address] PCP - GeneralFamily Medicine11/09/22 Jeanine Rao NP [address] [place] [address] Nurse PractitionerFamily Medicine11/09/22
--- OUTSIDE RECORDS SUMMARY | 2025-05-24 11:02 | XMS_ITS | Encounter Summary ---
Author Organization [facility] Address [address] [place] [address] Care Team Providers Care Master Black Belt Name Role Phone IndyJose yu Primary Care Provider [phone]- [phone] Jeanine Rao SERVICE DELIVERY ANALYST Unavailable Encounter Details DateTypeDepartmentCare Team (Latest Contact Info)Yynkostkfqe31/19/2025Orders Only [facility] [address] [place] [address] Jeanine Rao, SERVICE DELIVERY ANALYST [address] [place] [address] Social History Tobacco UseTypesPacks/DayYears UsedDateSmoking [...] times a week01/22/2024How often do you attend confucianist or sikhism services?More than 4 times per year4Do you belong to any clubs or organizations such as confucianist groups, unions, fraternal or athletic groups, or [...] heating?Somewhat hard 01/22/2024HQ-2AnswerDate RecordedPatient Health Questionnaire-2 Score2 03/23/2025[facility] [place] of Occupational Health - Occupational Stress QuestionnaireAnswerDate [...] No01/22/2024CommentsNoSex and Gender InformationValueDate RecordedSex Assigned at LjesdYwoudi71/16/2023 9:54 AM EDTLegal YrhJjfegg07/15/2023 6:42 PM EDTGender FgnodokwXrfguz92/15/2023 6:42 PM EDTSexual OrientationNot on file documented as of this encounter Plan of Treatment DateTypeDepartmentCare Team (Latest Contact Info)Ykufbhrvzon02/21/2026 1:00 PM ESTAncillary Procedure [facility] [address] [place] [address] 06/23/2025 2:30 PM ESTEducation [facility] [address] [place] [address] Cristina Escalante, SERVICE DELIVERY ANALYST [address] [place] [address] 06/30/2025 10:00 AM ESTOffice Visit [facility] [address] [place] [address] Jeanine Rao SERVICE DELIVERY ANALYST [address] [place] [address] 09/13/2025 2:40 PM EDTOffice Visit [facility] [address] [place] [phone] Jamie Schwartz MD [address] [place] [address] 04/05/2026 10:00 AM ESTOffice Visit [facility] [address] [place] [address] Amalia Cheng, PA [address] [place] [address] documented as of this encounter Procedures Procedure NamePriorityDate/TimeAssociated DiagnosisCommentsDIABETIC RETINOPATHY SCREENING - OU - BOTH MBWLHajpefs18/18/2025 10:12 AM ESTdocumented in this encounter Visit Diagnoses Not on filedocumented in this encounter Additional Health Concerns AssessmentNoted TimePHQ-9 Depression Total Score: 9:10 AM EDT documented as of this encounter Care Teams Team MemberRelationshipSpecialtyStart DateEnd Date Jose Putnam DO [address] [place] [address] PCP - GeneralFamily Medicine11/09/22 Jeanine Rao, CURLY [address] [place] [address] Nurse PractitionerFamily Medicine11/09/22documented as of this encounter
--- OUTSIDE RECORDS SUMMARY | 2025-05-24 11:02 | XMS_ITS | Encounter Summary ---
Author Organization [facility] Address [address] [place] [address] Care Team Providers Care Apprentice Electrician Name Role Phone IndyJose yu Primary Care Provider [phone]- [phone] Jeanine Rao PARTS AND SERVICE MANAGER Unavailable Reason for Visit * ReasonCommentsMed Refill Encounter Details DateTypeDepartmentCare Team (Latest Contact Info)Thgzroxnipx75/12/2025Refill [facility] [address] [place] [address] Jeanine Rao, PARTS AND SERVICE MANAGER [address] [place] [address] Environmental and seasonal allergies Social History Tobacco UseTypesPacks/DayYears UsedDateSmoking Tobacco: NeverSmokeless [...] times a week01/22/2024How often do you attend christian or anglican services?More than 4 times per year4Do you belong to any clubs or organizations such as christian groups, unions, fraternal or athletic groups, or [...] heating?Somewhat hard 01/22/2024HQ-2AnswerDate RecordedPatient Health Questionnaire-2 Score2 03/23/2025[facility] [place] of Occupational Health - Occupational Stress QuestionnaireAnswerDate [...] No01/22/2024CommentsNoSex and Gender InformationValueDate RecordedSex Assigned at HqptjQgfvpa74/16/2023 9:54 AM EDTLegal ZunYpfadz41/15/2023 6:42 PM EDTGender WwmflgcbIcfinq67/15/2023 6:42 PM EDTSexual OrientationNot on file documented as of this encounter Plan of Treatment DateTypeDepartmentCare Team (Latest Contact Info)Cludglpnhuq63/21/2026 1:00 PM ESTAncillary Procedure [facility] [address] [place] [address] 06/23/2025 2:30 PM ESTEducation [facility] [address] [place] [address] Cristina Escalante, PARTS AND SERVICE MANAGER [address] [place] [address] 06/30/2025 10:00 AM ESTOffice Visit [facility] [address] [place] [address] Jeanine Rao NP [address] [place] [address] 09/13/2025 2:40 PM EDTOffice Visit [facility] [place] [facility] [address] [place] [id number] Jamie Schwartz MD [address] [place] [address] 04/05/2026 10:00 AM ESTOffice Visit [facility] [address] [place] [address] Amalia Cheng, PA [address] [place] [address] documented as of this encounter Visit Diagnoses Diagnosis Environmental and seasonal allergies documented in this encounter Additional Health Concerns AssessmentNoted TimePHQ-9 Depression Total Score: 9:10 AM EDT documented as of this encounter Care Teams Team MemberRelationshipSpecialtyStart DateEnd Date Jose Putnam, [address] [place] [address] PCP - GeneralFamily Medicine11/09/22 Jeanine Rao, PARTS AND SERVICE MANAGER [address] [place] [address] Nurse PractitionerFamily Medicine11/09/22documented as of this encounter
--- OUTSIDE RECORDS SUMMARY | 2025-05-24 11:02 | XMS_ITS | Encounter Summary ---
Author Organization [facility] Address [address] [place] [address] Care Team Providers Care Professor Of Sociology Name Role Phone IndyJose yu [place] Primary Care Provider [phone]- [phone] Jeanine Rao TUBE CARRIER Unavailable Encounter Details DateTypeDepartmentCare Team (Latest Contact Info)Kfezljqoszy80/17/2025amboo flowsheet [facility] Patient Education [address] [place] [address] Cristina Escalante, TUBE CARRIER [address] [place] [address] Social History Tobacco UseTypesPacks/DayYears UsedDateSmoking [...] times a week01/22/2024How often do you attend hindu or mormonism services?More than 4 times per year4Do you belong to any clubs or organizations such as hindu groups, unions, fraternal or athletic groups, or [...] heating?Somewhat hard 01/22/2024HQ-2AnswerDate RecordedPatient Health Questionnaire-2 Score2 03/23/2025[facility] [place] of Occupational Health - Occupational Stress QuestionnaireAnswerDate [...] were you homeless or living in a retirement (including now)? No01/22/2024CommentsNoSex and Gender InformationValueDate RecordedSex Assigned at DfhkjCnrnld14/16/2023 9:54 AM EDTLegal RfwXdpvsn10/15/2023 6:42 PM EDTGender GjlrthuxDxaega95/15/2023 6:42 PM EDTSexual OrientationNot on file documented as of this encounter Plan of Treatment DateTypeDepartmentCare Team (Latest Contact Info)Aeemchoodwq69/21/2026 1:00 PM ESTAncillary Procedure [facility] [address] [place] [address] 06/23/2025 2:30 PM ESTEducation [facility] [address] [place] [address] Cristina Escalante, TUBE CARRIER [address] [place] [address] 06/30/2025 10:00 AM ESTOffice Visit [facility] [address] [place] [address] Jeanine Rao NP [address] [place] [address] 09/13/2025 2:40 PM EDTOffice Visit [facility] [facility] [address] [place] [id number] Jamie Schwartz MD [address] [place] [id number] 04/05/2026 10:00 AM ESTOffice Visit [facility] [address] [place] [address] Amalia Cheng, PA [address] [place] [address] documented as of this encounter Visit Diagnoses Not on filedocumented in this encounter Additional Health Concerns AssessmentNoted TimePHQ-9 Depression Total Score: 9:10 AM EDT documented as of this encounter Care Teams Team MemberRelationshipSpecialtyStart DateEnd Date Jose Putnam DO [address] [place] [address] PCP - GeneralFamily Medicine11/09/22 Jeanine Rao, CURLY [address] [place], [place] [address] Nurse PractitionerFamily Medicine11/09/22documented as of this encounter
--- OUTSIDE RECORDS SUMMARY | 2025-05-24 11:02 | XMS_ITS | Encounter Summary ---
Author Organization [facility] Address [address] [place] [address] Care Team Providers Care Vacuum Cleaner Repairer Name Role Phone IndyJose yu Primary Care Provider +1- [phone] Jeanine Rao POLICE COMMISSIONER Unavailable Encounter Details DateTypeDepartmentCare Team (Latest Contact Info)Djwfhcirwsq68/09/2025Telephone [facility] [address] [place] [address] Jeanine Rao, POLICE COMMISSIONER [address] [place] [address] Social History Tobacco UseTypesPacks/DayYears UsedDateSmoking [...] times a week01/22/2024How often do you attend holiness or spiritism services?More than 4 times per year4Do you belong to any clubs or organizations such as holiness groups, unions, fraternal or athletic groups, or [...] RecordedPatient Health Questionnaire-2 Score2 03/23/2025[facility] [place] of Occupational Health - Occupational Stress QuestionnaireAnswerDate [...] No01/22/2024CommentsNoSex and Gender InformationValueDate RecordedSex Assigned at QktqtVyilvd25/16/2023 9:54 AM EDTLegal IwzMsmmmc67/15/2023 6:42 PM EDTGender CbojmmsvPwzqoo25/15/2023 6:42 PM EDTSexual OrientationNot on file documented as of this encounter Miscellaneous Notes * Telephone Encounter - Jeanine Rao NP - 05/11/2025 6:45 AM EST We are sending a repeat pulse ox study to see if the 2 liters at night is helping. documented in this encounter Plan of Treatment DateTypeDepartmentCare Team (Latest Contact Info)Vsctjjyeyax64/21/2026 1:00 PM ESTAncillary Procedure [facility] [address] [place] [address] 06/23/2025 2:30 PM ESTEducation [facility] [address] [place] [address] Cristina Escalante NP [address] [place] [address] 06/30/2025 10:00 AM ESTOffice Visit [facility] [address] [place] [address] Jeanine Rao NP [address] [place] [address] 09/13/2025 2:40 PM EDTOffice Visit [facility] [address] [place] [address] Jamie Schwartz MD [address] [place] [address] 04/05/2026 10:00 AM ESTOffice Visit [facility] [address] [place] [address] Amalia Cheng, NAHED [address] [place] [address] documented as of this encounter Visit Diagnoses Not on filedocumented in this encounter Additional Health Concerns AssessmentNoted TimePHQ-9 Depression Total Score: 9:10 AM EDT documented as of this encounter Care Teams Team MemberRelationshipSpecialtyStart DateEnd Date Jose Putnam DO [address] [place] [address] PCP - GeneralFamily Medicine11/09/22 Jeanine Rao NP [address] [place] [address] Nurse PractitionerFamily Medicine11/09/22documented as of this encounter
--- OUTSIDE RECORDS SUMMARY | 2025-05-24 11:02 | XMS_ITS | Encounter Summary ---
Author Organization [facility] Address [address] [place] [address] Care Team Providers Care Tree Deadener Name Role Phone IndyJose yu Primary Care Provider [phone]- [phone] Jeanine Rao LIFE SKILLS SPECIALIST Unavailable Encounter Details DateTypeDepartmentCare Team (Latest Contact Info)Ysggttufehf40/08/2025bstract [facility] [place] [facility] [address] [place] [address] Jeanine Rao, LIFE SKILLS SPECIALIST [address] [place] [address] Social History Tobacco UseTypesPacks/DayYears UsedDateSmoking [...] times a week01/22/2024How often do you attend uatsdin or anabaptist services?More than 4 times per year4Do you belong to any clubs or organizations such as uatsdin groups, unions, fraternal or athletic groups, or [...] Health Questionnaire-2 Score2 03/23/2025[facility] [place] [facility] - Occupational Stress QuestionnaireAnswerDate [...] No01/22/2024CommentsNoSex and Gender InformationValueDate RecordedSex Assigned at TcaxkWfprbt89/16/2023 9:54 AM EDTLegal MpgSdhati46/15/2023 6:42 PM EDTGender UqlxhdyvMohkkp51/15/2023 6:42 PM EDTSexual OrientationNot on file documented as of this encounter Plan of Treatment DateTypeDepartmentCare Team (Latest Contact Info)Xovtuaurpzd90/21/2026 1:00 PM ESTAncillary Procedure [facility] [address] [place] [address] 06/23/2025 2:30 PM ESTEducation [facility] [address] [place] [address] Cristina Escalante, LIFE SKILLS SPECIALIST [address] [facility] [place] [address] 06/30/2025 10:00 AM ESTOffice Visit [facility] [address] [place] [address] Jeanine Rao LIFE SKILLS SPECIALIST [address] [place], [place] [id number] 09/13/2025 2:40 PM EDTOffice Visit [facility] [address] [place] [id number] Jamie Schwartz MD [address] [place] [address] 04/05/2026 10:00 AM ESTOffice Visit [facility] [address] [place] [address] Amalia Cheng, PA [address] [place] [address] documented as of this encounter Visit Diagnoses Not on filedocumented in this encounter Additional Health Concerns AssessmentNoted TimePHQ-9 Depression Total Score: 9:10 AM EDT documented as of this encounter Care Teams Team MemberRelationshipSpecialtyStart DateEnd Date Jose Putnam, [address] [place] [address] PCP - GeneralFamily Medicine11/09/22 Jeanine Rao, LIFE SKILLS SPECIALIST [address] [place], [place] [id number] Nurse PractitionerFamily Medicine11/09/22documented as of this encounter
--- OUTSIDE RECORDS SUMMARY | 2025-05-24 11:02 | XMS_ITS | Encounter Summary ---
Author Organization [facility] Address [address] [place] [address] Care Team Providers Care Mule Driver Name Role Phone IndyJose yu Primary Care Provider [phone]- [phone] Jeanine Rao RN MDS COORDINATOR Unavailable Encounter Details DateTypeDepartmentCare Team (Latest Contact Info)Chvkmfwcogh24/15/2025bstract [facility] [address] [place] [address] Jeanine Rao, RN MDS COORDINATOR [address] [place] [address] Social History Tobacco UseTypesPacks/DayYears UsedDateSmoking [...] times a week01/22/2024How often do you attend orthodoxy or sabianism services?More than 4 times per year4Do you belong to any clubs or organizations such as orthodoxy groups, unions, fraternal or athletic groups, or [...] Health Questionnaire-2 Score2 03/23/2025[facility] [place] [facility] Occupational [facility] - Occupational Stress QuestionnaireAnswerDate [...] No01/22/2024CommentsNoSex and Gender InformationValueDate RecordedSex Assigned at TjsfiNmmcfq70/16/2023 9:54 AM EDTLegal SpnDtdvib93/15/2023 6:42 PM EDTGender EdvwnpmtSnnwjj65/15/2023 6:42 PM EDTSexual OrientationNot on file documented as of this encounter Plan of Treatment DateTypeDepartmentCare Team (Latest Contact Info)Ksvzvuzxioe11/21/2026 1:00 PM ESTAncillary Procedure [facility] [address] [place] [address] 06/23/2025 2:30 PM ESTEducation [facility] [address] [place] [address] Cristina Escalante, RN MDS COORDINATOR [address] [place] [address] 06/30/2025 10:00 AM ESTOffice Visit [facility] [address] [place] [address] Jeanine Rao RN MDS COORDINATOR [address] [place], [place] [id number] 09/13/2025 2:40 PM EDTOffice Visit [facility] [address] [place] [phone] Jamie Schwartz MD [address] [place] [address] 04/05/2026 10:00 AM ESTOffice Visit [facility] [address] [place] [address] Amalia Cheng, PA [address] [place] [address] documented as of this encounter Visit Diagnoses Not on filedocumented in this encounter Additional Health Concerns AssessmentNoted TimePHQ-9 Depression Total Score: 9:10 AM EDT documented as of this encounter Care Teams Team MemberRelationshipSpecialtyStart DateEnd Date Jose Putnam, [address] [place] [address] PCP - GeneralFamily Medicine11/09/22 Jeanine Rao, RN MDS COORDINATOR [address] [place], [place] [phone] Nurse PractitionerFamily Medicine11/09/22documented as of this encounter
--- NOTE | 2025-05-24 11:03 | XR_ITS ---
The [address] [address] Patient Name: AISHWARYA DUNN MRN: [id number] date: 1965 Sex: F Assigned Patient Location: [facility] Current Patient Location: [facility] Accession/Order Number: [id number] Exam Date: 05/24/2025 11:20 Report Date: 05/24/2025 12:12 At the request of: ANA SCHUSTER DPOleg Procedure: XR foot RT min 3V RIGHT FOOT - 3 views CLINICAL DATA: Follow-up revision surgery at the first toe COMPARISON: 05/04/2025 AP, lateral and oblique views were obtained. Once again there is a splint with associated artifact that obscures fine bone detail. A dorsal plate and multiple screws are again seen extending from the proximal first metatarsal through the proximal phalanx of the first toe. The hardware is unchanged. There is no developing fracture or dislocation. A plantar calcaneal spur is again noted. There is spurring along the dorsum of the tarsals and proximal metatarsals on the lateral view. There are no significant soft tissue abnormalities. Skin kieran are still seen at the surgery site. XR/XR foot RT min 3V IMPRESSION: NO SIGNIFICANT CHANGE IN APPEARANCE OF THE FOOT. Impression dictated by: Melba Tineo M.D. 05/24/2025 12:12 PM Dictation Location: [facility]AMinube Electronically authenticated by: [id number] Y Date: 05/24/2025 12:12
== END 2025-05-24 10:51 | disposition home or self-care (01) ==
LOC: RAD 10:55
PROVIDERS: PCP Nurse Practitioner; Visit Provider Podiatrist Foot & Ankle Surgery
DX: M79.671 Pain in right foot (principal); Z98.890 Other specified postprocedural states
CPT/HCPCS: 73630